=== PATIENT | female | born 1965 | race Caucasian/White ===

== ENCOUNTER 2016-11-06 09:45 | Emergency (ER) | payer MEDICARE, OTHER ==
[~2016-11-06] VITALS: Ht 172.7 cm; Wt 72.0 kg
[~2016-11-06 09:45] MED LIST: ADVA250A INH; DIPH1TAB36 PO; FISHCAP4 PO; GABA400C5 PO; LEVEMIR SQ; LISI2.5T3 PO; PROM25TA5 PO; REGL5TAB PO; SITA25 PO; ZOFR8TAB PO
[2016-11-06 09:47] VITALS: BP 98/70; PULSE 112; RESP 18; TEMP 98.9; O2SAT 98
[2016-11-06] MEDS ORDERED: SODIUM CHLOR 0.9% 1000 ML INJ 1,000 ML IV SCH (10:16)
--- NOTE | 2016-11-06 10:29 | PD ---
HPI . Right rib pain Chief Complaint: Fall Time Seen by Provider: 10:09 Travel History International Travel<30 days: No Contact w/Intl Traveler<30days: No Traveled to known affect area: No History of Present Illness HPI This is a patient with multiple medical issues who presents with the chief complaint of right rib pain following a fall. Her significant other reports that she has suffered several falls in the recent past. He states that her blood pressure drops and she falls. She denies fever. She denies vomiting or diarrhea. She denies urinary symptoms she is not currently having any difficulty breathing. PFSH Past Medical History Hx Anticoagulant Therapy: Yes (ASA) Arthritis: No Asthma: Yes Atrial Fibrillation: Yes Autoimmune Disease: No Blood Disorders: No Anxiety: Yes Depression: Yes Heart Rhythm Problems: Yes Cancer: Yes (throat ) Cardiovascular Problems: Yes High Cholesterol: No Chemotherapy: Yes Chest Pain: Yes Congestive Heart Failure: No COPD: No Cerebrovascular Accident: Yes Diabetes: Yes (TYPE 2) Patient Takes Glucophage: No Diminished Hearing: No Endocrine: Yes Gastrointestinal Disorders: Yes GERD: No Glaucoma: No Genitourinary: Yes (FREQUENT UTIs) Headaches: Yes Hepatitis: Yes (HEP C) Hiatal Hernia: No Heparin Induced Thrombocytopen: No Hypertension: Yes Immune Disorder: Yes (CANCER) Implanted Vascular Access Dvce: Yes (PORT R CHEST, PACEMAKER L CHEST) Kidney Stones: Yes Musculoskeletal: Yes (BACK PAIN) Neurologic: No Psychiatric: Yes Reproductive: Yes (GENITAL WARTS YEARS AGO) Respiratory: Yes (ASTHMA) Immunizations Current: Yes Migraines: Yes Myocardial Infarction: No Radiation Therapy: Yes (LAST DONE ON 10/21/16) Renal Failure: No Seizures: No Sickle Cell Disease: No Sleep Apnea: No Thyroid Disease: No Triglycerides - High: Yes Ulcer: No PNEUMOCCOCAL Vaccine (Year): 2 ?: Not Menopausal: Yes : 3 Para: 2 Miscarriage: 1 Past Surgical History Abdominal Surgery: Yes AICD: No Appendectomy: Yes Arteriovenous Shunt: No Body Medical Devices: PACEMAKER; LEG STENT; PORT PLACED Cardiac Surgery: Yes (L FEMORAL STENT, PACEMAKER) Section: Yes (x1) Cholecystectomy: Yes Ear Surgery: No Endocrine Surgery: No Eye Surgery: No Genitourinary Surgery: No Hysterectomy: No Insulin Pump: No Joint Replacement: No Neurologic Surgery: No Oral Surgery: Yes Pacemaker: Yes (ST JUDES) Thoracic Surgery: No Tonsillectomy: Yes Other Surgery: Yes (LEG STENTS, PORT PLACED- RIGHT 2016) Social History Alcohol Use: No Tobacco Use: No Substance Use: No Allergies-Medications (Allergen,Severity, Reaction): Coded Allergies: Compazine (Verified Allergy, Severe, 11/06/16) ANXIETY Ultram (Verified Allergy, Intermediate, Rash, 11/06/16) MRI PRECAUTION (Verified Adverse Reaction, Severe, PACEMAKER IS NOT A BIOTRONIK OR MEDTRONIC 06/15/16 KMD, 11/06/16) PACEMAKER IS NOT A BIOTRONIK OR MEDTRONIC CONDITIONAL PACEMAKER. CALLED BOTH COMPANIES TO CONFIRM. Percocet (Verified Adverse Reaction, Severe, Nausea/Vomiting, 11/06/16) *MDRO Multi-Drug Resistant Organism (Verified Adverse Reaction, Unknown, ESBL, MRSA, 11/06/16) E. coli ESBL (urine) - 2012, 2013, 2014, 04/2016 MRSA - 2003, 03/2015 (toe wound), 10/2015 (arm/back wound), (foot-08/17/16) Morphine (Verified Adverse Reaction, Unknown, Dizziness, 11/06/16) states doesn't want-does not like the way it makes me feel Reported Meds & Prescriptions Reported Meds & Active Scripts Active Reglan (Metoclopramide HCl) 5 Mg Tab 5 Mg PO TIDAC Lisinopril 2.5 Mg Tab 2.5 Mg PO DAILY Levemir Inj (Insulin Detemir) 1,000 unit/ 10 ML Vial 5 Units SQ Q12HR Phenergan (Promethazine HCl) 25 Mg Tab 25 Mg PO Q6H PRN Zofran (Ondansetron HCl) 8 Mg Tab 8 Mg PO Q8HR Reported Tylenol Pm Extra Strength (Diphenhydramine-Acetaminophen) 25-500 Mg Tab 1 Tab PO HS PRN Januvia (Sitagliptin Phosphate) 25 Mg Tab 25 Mg PO DAILY Advair Diskus Inh (Fluticasone-Salmeterol Inh) 250-50 Mcg/Blist Aer 1 Puff INH BID Rinse mouth after use. Fish Oil + D3 (Fish Oil-Cholecalciferol) 1,200-1,000 Mg-Unit Cap 1 Cap PO DAILY Gabapentin 400 Mg Cap 800 Mg PO BID Review of Systems Except as stated in HPI: all other systems reviewed are Neg General / Constitutional: No: Fever, Chills HENT: Positive: Lightheadedness Respiratory: No: Shortness of Breath Gastrointestinal: No: Nausea, Vomiting, Diarrhea, Abdominal Pain Genitourinary: No: Urgency, Frequency, Dysuria Musculoskeletal: Positive: Other (right chest wall pain) Neurologic: Positive: Weakness Physical Exam Narrative GENERAL: This is a chronically ill appearing woman who does not appear to be having any respiratory distress SKIN: Warm and dry. HEAD: Atraumatic. Normocephalic. EYES: Pupils equal and round. ENT: No nasal bleeding or discharge. Mucous membranes pink and moist. NECK: Trachea midline. Neck supple. CARDIOVASCULAR: Regular rate and rhythm. Heart sounds normal. RESPIRATORY: No accessory muscle use. Lungs clear with good air movement throughout. Right lower anterior chest wall tenderness. GASTROINTESTINAL: Abdomen soft, non-tender, nondistended. MUSCULOSKELETAL: No obvious deformities. No edema. NEUROLOGICAL: Awake and alert. No obvious cranial nerve deficits. Motor grossly within normal limits. Normal speech. PSYCHIATRIC: Appropriate mood and affect; insight and judgment normal. Data Data Last Documented VS Vital Signs Date Time Temp Pulse Resp B/P Pulse Ox O2 Delivery O2 Flow Rate FiO2 11/06/16 09:54 75 Nasal Cannula 11/06/16 09:47 98.9 18 98/70 98 Orders Basic Metabolic Panel (Bmp) (11/06/16 10:16) Complete Blood Count With Diff (11/06/16 10:16) Urinalysis - C+S If Indicated (11/06/16 10:16) Iv Access Insert/Monitor (11/06/16 10:16) Ondansetron Inj (Zofran Inj) (11/06/16 10:30) Sodium Chlor 0.9% 1000 Ml Inj (Ns 1000 M (11/06/16 10:16) Sodium Chloride 0.9% Flush (Ns Flush) (11/06/16 10:30) Electrocardiogram (11/06/16 10:16) Morphine Inj (Morphine Inj) (11/06/16 10:30) Ribs, Uni (W/Exp Cxr-Min 3vw) (11/06/16 10:16) Urine Culture (11/06/16 11:33) Labs Laboratory Tests Test 11/06/16 11/06/16 11:28 11:33 White Blood Count 4.8 TH/MM3 Red Blood Count 3.98 MIL/MM3 Hemoglobin 12.1 GM/DL Hematocrit 35.4 % Mean Corpuscular Volume 88.8 FL Mean Corpuscular Hemoglobin 30.3 PG Mean Corpuscular Hemoglobin 34.1 % Concent Red Cell Distribution Width 14.6 % Platelet Count 182 TH/MM3 Mean Platelet Volume 7.6 FL Neutrophils (%) (Auto) 78.2 % Lymphocytes (%) (Auto) 13.8 % Monocytes (%) (Auto) 7.3 % Eosinophils (%) (Auto) 0.4 % Basophils (%) (Auto) 0.3 % Neutrophils # (Auto) 3.8 TH/MM3 Lymphocytes # (Auto) 0.7 TH/MM3 Monocytes # (Auto) 0.4 TH/MM3 Eosinophils # (Auto) 0.0 TH/MM3 Basophils # (Auto) 0.0 TH/MM3 CBC Comment DIFF FINAL Differential Comment Sodium Level 136 MEQ/L Potassium Level 3.7 MEQ/L Chloride Level 96 MEQ/L Carbon Dioxide Level 24.9 MEQ/L Anion Gap 15 MEQ/L Blood Urea Nitrogen 16 MG/DL Creatinine 0.87 MG/DL Estimat Glomerular Filtration 69 ML/MIN Rate Random Glucose 184 MG/DL Calcium Level 9.6 MG/DL Urine Color YELLOW Urine Turbidity HAZY Urine pH 6.0 Urine Specific Hope 1.019 Urine Protein 30 mg/dL Urine Glucose (UA) NEG mg/dL Urine Ketones 80 mg/dL Urine Occult Blood NEG Urine Nitrite NEG Urine Bilirubin NEG Urine Urobilinogen 2.0 MG/DL Urine Leukocyte Esterase TRACE Urine RBC LESS THAN 1 /hpf Urine WBC 5 /hpf Urine Squamous Epithelial 13 /hpf Cells Urine Bacteria MANY /hpf Urine Hyaline Casts 2 /lpf Urine Mucus FEW /lpf Microscopic Urinalysis Comment CULTURE INDICATED MDM Medical Decision Making Medical Screen Exam Complete: Yes Emergency Medical Condition: Yes Differential Diagnosis Differential diagnosis of weakness includes but is not limited to infection, CVA , electrolyte disturbance, renal failure, hypoglycemia, UTI, ACS Differential diagnosis of her chest injury includes chest wall contusion, rib contusion, rib fracture, pneumothorax Narrative Course This is a patient with multiple medical problems including diabetes, hypertension, throat cancer, previous breast cancer, hepatitis C, gastroparesis who presents because of falls secondary to weakness and low blood pressure. She suffered and injury to her right chest wall today is the result of the fall. I will give her fluids while waiting the results of her rib films. I have ordered morphine and Zofran for her but her records indicate that she does not like the way morphine makes her feel so she may refuse this. Her CBC is normal. Rib films are negative as is her chest x-ray. U/A-->UTI. Diagnosis Primary Impression: Contusion of right chest wall Qualified Code: S20.211A - Contusion of right chest wall, initial encounter Additional Impressions: Frequent falls UTI (lower urinary tract infection) Scripts Cephalexin (Keflex)500 Mg [id number] Mg PO Q8H #30 CAP Ref 0 Prov:Keyana Siu MD 11/06/16 Disposition: DISCHARGE HOME Condition: Stable Keyana Siu MD Nov 06, 2016 10:29
[2016-11-06] MEDS: ONDANSETRON HCL 4 MG/2 ML VIAL IVP ONE ×2 (10:30→11:49)
[2016-11-06] MEDS ORDERED: SODIUM CHLORIDE 0.9% FLUSH 5 ML FLUSH IVF PRN (10:30)
[2016-11-06] MEDS: MORPHINE SULFATE 8 MG/ML INJ IV PUSH ONE ×2 (10:30→11:48)
--- NOTE | 2016-11-06 11:23 | RADRPT ---
EXAM DATE/TIME: 11/06/2016 10:46 [facility] COMPARISON: CHEST SINGLE AP, October 04, 2016, 2:12. INDICATIONS : Trauma MEDICAL HISTORY : Hypertension. Cerebrovascular disease. Hepatitis C. Diabetes, Carcinoma.oral cavity SURGICAL HISTORY : Pacemaker. Port placement ENCOUNTER: Initial ACUITY: 1 day PAIN SCORE: 10/10 LOCATION: Right chest FINDINGS: Multiple views of the right ribs were performed. There is no evidence of displaced fracture. No nahum tructive lesions or areas of periosteal thickening are seen. Expiratory view of the chest is negativ e for pneumothorax. The mediastinal structures are midline. Right port catheter tip overlies the SV C. Dual-lead pacer device in the left subclavian transvenous approach noted. Surgical clips are noted in the right upper quadrant. CONCLUSION: No acute disease. Bernardo Malone MD on November 06, 2016 at 11:21 Board Certified Radiologist. This report was verified electronically.
[2016-11-06 11:37] LABS: AUTOMATED NEUTROPHIL # 3.8 TH/MM3 (1.8-7.7); BASOPHIL % 0.3 % (0.0-2.0); EOSINOPHIL % 0.4 % (0.0-4.0); HEMATOCRIT 35.4 % (35.0-46.0); HEMO FLAGS DIFF FINAL; LYMPH % 13.8 % (9.0-44.0); LYMPHOCYTE # 0.7 TH/MM3 (1.0-4.8); MEAN CELL VOLUME 88.8 FL (80.0-100.0); MEAN CORPUSCULAR HEMOGLOBIN 30.3 PG (27.0-34.0); MEAN CORPUSCULAR HGB CONC 34.1 % (32.0-36.0); MONO % 7.3 % (0.0-8.0); NEUT % 78.2 % (16.0-70.0); PLATELET COUNT 182 TH/MM3 (150-450); RED BLOOD COUNT 3.98 MIL/MM3 (4.00-5.30); RED CELL DISTRIBUTION WIDTH 14.6 % (11.6-17.2); WHITE BLOOD COUNT 4.8 TH/MM3 (4.0-11.0)
[2016-11-06 11:55] LABS: BACTERIA, URINE MANY /hpf; BLOOD, URINE NEG (NEG); GLUCOSE,URINE NEG (NEG); HYALINE CAST, URINE 2 /lpf (RARE); KETONE, URINE 80 mg/dL (NEG); MUCUS URINE FEW /lpf (OCC); NITRITE,URINE NEG (NEG); SQUAMOUS EPITHELIAL CELL URINE 13 /hpf (0-5); URINE COLOR YELLOW (YELLW/STRAW)
[2016-11-06 11:56] LABS: COMMENT (UR) CULTURE INDICATED; CULTURE IF INDICATED CULTURE INDICATED
[2016-11-06 11:58] LABS: BICARBONATE 24.9 MEQ/L (21.0-32.0); POTASSIUM 3.7 MEQ/L (3.5-5.1)
[2016-11-06 12:00] VITALS: BP 122/65; PULSE 90; RESP 16; O2SAT 98
[2016-11-06] MEDS ORDERED: CEPH-460 PO (12:19)
--- NOTE | 2016-11-07 18:17 | EKG ---
Date Performed: 11/06/2016 Time Performed: 12:45:05 PTAGE: 51 years EKG: Sinus rhythm SEPTAL MYOCARDIAL INFARCTION Since previous tracing, no significant change noted ABNORMAL ECG PREVIOUS TRACING : 10/23/2016 16.28 DOCTOR: Gill Rivas Interpretating Date/Time 11/07/2016 18:17:11
[2016-11-29] MEDS ORDERED: SITA25 PO (14:33)
[2016-11-29] MEDS ORDERED: LEVEMIR SQ (14:33)
[2016-11-29] MEDS ORDERED: MIDO10TA PO (14:33)
[2016-11-29] MEDS ORDERED: GLUCLIQ15 PO (14:33)
[2017-01-05] MEDS ORDERED: SODI1TAB PO (14:28)
[2017-01-05] MEDS ORDERED: SITA1TAB2 PO (14:43)
[2017-01-05] MEDS ORDERED: LANCETS1 MI1 (14:45)
[2017-01-05] MEDS ORDERED: GLUCTES12 (14:45)
[2017-01-05] MEDS ORDERED: GLUCKIT15 (14:45)
[2017-01-05] MEDS ORDERED: INSU1MIS15 (14:45)
[2017-01-26] MEDS ORDERED: EXENINJ SQ (10:55)
[2017-02-08] MEDS ORDERED: GABA400C5 PO (11:21)
[2017-02-22] MEDS ORDERED: ATOR20TA15 PO (11:12)
[2017-02-22] MEDS ORDERED: EXENINJ SQ (11:14)
[2017-02-22] MEDS ORDERED: SODI1TAB PO (11:16)
[2017-02-22] MEDS ORDERED: MIDO5TAB PO (11:16)
[2017-02-22] MEDS ORDERED: ONDA4TAB6 PO (11:17)
[2017-03-02] MEDS ORDERED: LEVA750T PO (14:35)
[2017-03-02] MEDS ORDERED: BACT800T5 PO (14:36)
[2017-03-21] MEDS ORDERED: GABA400C5 PO (10:02)
[2017-03-21] MEDS ORDERED: LACTPOW68 PO (10:11)
[2017-04-04] MEDS ORDERED: CLIN1CAP6 PO (11:34)
[2017-04-04] MEDS ORDERED: LEVO500T8 PO (11:34)
[2017-04-11] MEDS ORDERED: GLIP1TAB49 PO (11:05)
[2017-05-01] MEDS ORDERED: MIDO5TAB PO (10:08)
[2017-05-01] MEDS ORDERED: GABA400C5 PO (10:08)
[2017-05-01] MEDS ORDERED: SODI1TAB PO (10:09)
== END 2016-11-06 13:24 | disposition home or self-care (01) ==
LOC: NEPE 09:45
DX: S20.211A Contusion of right front wall of thorax, initial encounter (principal); R29.6 Repeated falls; N39.0 Urinary tract infection, site not specified; B96.1 Klebsiella pneumoniae [K. pneumoniae] as the cause of diseases classified elsewhere; W19.XXXA Unspecified fall, initial encounter
CPT/HCPCS: 71101; 80048; 81001; 85025; 87077; 87086; 87186; 93005; 96360; 99284; J1642; J7030; J2270; J2405

== ENCOUNTER 2016-11-08 09:53 | Observation (INO) | payer MEDICARE, OTHER ==
[2016-11-08] VITALS (9 sets, daily range): BP systolic 59–132; BP diastolic 32–70; PULSE 80–110; RESP 16–20; TEMP 97.4–98.3; O2SAT 97–99
[~2016-11-08] VITALS: Ht 172.7 cm; Wt 65.0 kg
[~2016-11-08 09:53] MED LIST changes: +CEPH-460 PO
[2016-11-08] MEDS ORDERED: SODIUM CHLOR 0.9% 1000 ML INJ 1,000 ML IV ONE (10:40)
[2016-11-08] MEDS ORDERED: SODIUM CHLORIDE 0.9% FLUSH 5 ML FLUSH IVF PRN (10:45)
--- NOTE | 2016-11-08 10:46 | PD ---
HPI Chief Complaint: Abnormal Results Time Seen by Provider: 10:36 Travel History International Travel<30 days: No Contact w/Intl Traveler<30days: No Traveled to known affect area: No History of Present Illness HPI This is a 51-year-old female with history of oropharyngeal cancer, hepatitis C, who presents today with complaints of generalized weakness with near syncope and mechanical falls. The patient states she's been extremely weak and she's fond several times when she's gone to get up and was sitting position. She states that her significant other who is at the bedside has been able to catch her. She denies any traumatic injury at this time but was seen previously for rib pain after a fall. There are no other complaints time my examination. PFSH Past Medical History Hx Anticoagulant Therapy: Yes (ASA) Arthritis: No Asthma: Yes Atrial Fibrillation: Yes Autoimmune Disease: No Blood Disorders: No Anxiety: Yes Depression: Yes Heart Rhythm Problems: Yes Cancer: Yes (throat ) Cardiovascular Problems: Yes High Cholesterol: No Chemotherapy: Yes Chest Pain: Yes Congestive Heart Failure: No COPD: No Cerebrovascular Accident: Yes Diabetes: Yes (TYPE 2) Diminished Hearing: No Endocrine: Yes Gastrointestinal Disorders: Yes GERD: No Glaucoma: No Genitourinary: Yes (FREQUENT UTIs) Headaches: Yes Hepatitis: Yes (HEP C) Hiatal Hernia: No Heparin Induced Thrombocytopen: No Hypertension: Yes Immune Disorder: Yes (CANCER) Implanted Vascular Access Dvce: Yes (PORT R CHEST, PACEMAKER L CHEST) Kidney Stones: Yes Musculoskeletal: Yes (BACK PAIN) Neurologic: No Psychiatric: Yes Reproductive: Yes (GENITAL WARTS YEARS AGO) Respiratory: Yes (ASTHMA) Immunizations Current: Yes Migraines: Yes Myocardial Infarction: No Radiation Therapy: Yes (LAST DONE ON 10/21/16) Renal Failure: No Seizures: No Sickle Cell Disease: No Sleep Apnea: No Thyroid Disease: No Triglycerides - High: Yes Ulcer: No PNEUMOCCOCAL Vaccine (Year): 2 Menopausal: Yes : 3 Para: 2 Miscarriage: 1 Past Surgical History Abdominal Surgery: Yes AICD: No Appendectomy: Yes Arteriovenous Shunt: No Body Medical Devices: PACEMAKER; LEG STENT; PORT PLACED Cardiac Surgery: Yes (L FEMORAL STENT, PACEMAKER) Section: Yes (x1) Cholecystectomy: Yes Ear Surgery: No Endocrine Surgery: No Eye Surgery: No Genitourinary Surgery: No Hysterectomy: No Insulin Pump: No Joint Replacement: No Neurologic Surgery: No Oral Surgery: Yes Pacemaker: Yes (ST JUDES) Thoracic Surgery: No Tonsillectomy: Yes Other Surgery: Yes (LEG STENTS, PORT PLACED- RIGHT 2015) Social History Alcohol Use: No Tobacco Use: No Substance Use: No Allergies-Medications (Allergen,Severity, Reaction): Coded Allergies: Compazine (Verified Allergy, Severe, 11/06/16) ANXIETY Ultram (Verified Allergy, Intermediate, Rash, 11/06/16) MRI PRECAUTION (Verified Adverse Reaction, Severe, PACEMAKER IS NOT A BIOTRONIK OR MEDTRONIC 06/15/16 KMD, 11/06/16) PACEMAKER IS NOT A BIOTRONIK OR MEDTRONIC CONDITIONAL PACEMAKER. CALLED BOTH COMPANIES TO CONFIRM. Percocet (Verified Adverse Reaction, Severe, Nausea/Vomiting, 11/06/16) *MDRO Multi-Drug Resistant Organism (Verified Adverse Reaction, Unknown, ESBL, MRSA, 11/06/16) E. coli ESBL (urine) - 2012, 2013, 2014, 04/2016 MRSA - 2003, 03/2015 (toe wound), 10/2015 (arm/back wound), (foot-08/17/16) Morphine (Verified Adverse Reaction, Unknown, Dizziness, 11/06/16) states doesn't want-does not like the way it makes me feel Reported Meds & Prescriptions Reported Meds & Active Scripts Active Keflex (Cephalexin) 500 Mg Cap 500 Mg PO Q8H Reglan (Metoclopramide HCl) 5 Mg Tab 5 Mg PO TIDAC Lisinopril 2.5 Mg Tab 2.5 Mg PO DAILY Levemir Inj (Insulin Detemir) 1,000 unit/ 10 ML Vial 5 Units SQ Q12HR Phenergan (Promethazine HCl) 25 Mg Tab 25 Mg PO Q6H PRN Zofran (Ondansetron HCl) 8 Mg Tab 8 Mg PO Q8HR Reported Tylenol Pm Extra Strength (Diphenhydramine-Acetaminophen) 25-500 Mg Tab 1 Tab PO HS PRN Januvia (Sitagliptin Phosphate) 25 Mg Tab 25 Mg PO DAILY Advair Diskus Inh (Fluticasone-Salmeterol Inh) 250-50 Mcg/Blist Aer 1 Puff INH BID Rinse mouth after use. Fish Oil + D3 (Fish Oil-Cholecalciferol) 1,200-1,000 Mg-Unit Cap 1 Cap PO DAILY Gabapentin 400 Mg Cap 800 Mg PO BID Review of Systems Except as stated in HPI: all other systems reviewed are Neg General / Constitutional: No: Fever, Chills HENT: Positive: Lightheadedness, No: Headaches Cardiovascular: No: Chest Pain or Discomfort, Irregular Rhythm Respiratory: No: Cough, Shortness of Breath Gastrointestinal: No: Nausea, Abdominal Pain Genitourinary: No: Frequency, Dysuria Musculoskeletal: Positive: Weakness (generalized) Neurologic: Positive: Weakness (generalized), Other (near syncope when standing.) Physical Exam Narrative GENERAL: Frail appearing female in no acute respiratory distress. SKIN: Warm and dry. HEAD: Atraumatic. Normocephalic. EYES: No scleral icterus. No injection or drainage. ENT: No nasal bleeding or discharge. Dry mucous membranes. NECK: Trachea midline. Supple. CARDIOVASCULAR: Rate in the low 100s. No obvious murmurs gallops or rubs. RESPIRATORY: No accessory muscle use. Clear to auscultation. Breath sounds equal bilaterally. Decreased respiratory effort GASTROINTESTINAL: Abdomen soft, non-tender, nondistended. MUSCULOSKELETAL: No obvious deformities. No clubbing. No cyanosis. No edema. No obvious skin tenting NEUROLOGICAL: Awake and alert. No obvious cranial nerve deficits. Motor grossly within normal limits. Normal speech. She does appear to be weak. Data Data Last Documented VS Vital Signs Date Time Temp Pulse Resp B/P Pulse Ox O2 Delivery O2 Flow Rate FiO2 11/08/16 10:49 103 18 114/59 114 18 114/58 110 18 59/32 11/08/16 10:49 97 Room Air 11/08/16 10:36 97.8 Orders Complete Blood Count With Diff (11/08/16 10:40) Comprehensive Metabolic Panel (11/08/16 10:40) Urinalysis - C+S If Indicated (11/08/16 10:40) Ecg Monitoring (11/08/16 10:40) Iv Access Insert/Monitor (11/08/16 10:40) Oximetry (11/08/16 10:40) Sodium Chloride 0.9% Flush (Ns Flush) (11/08/16 10:45) Sodium Chlor 0.9% 1000 Ml Inj (Ns 1000 M (11/08/16 10:40) Orthostatic Vital Signs (11/08/16 10:40) Admit Order (Ed Use Only) (11/08/16 12:21) Labs Laboratory Tests Test 11/08/16 11:07 White Blood Count 3.8 TH/MM3 Red Blood Count 3.74 MIL/MM3 Hemoglobin 11.5 GM/DL Hematocrit 33.4 % Mean Corpuscular Volume 89.1 FL Mean Corpuscular Hemoglobin 30.6 PG Mean Corpuscular Hemoglobin 34.3 % Concent Red Cell Distribution Width 15.1 % Platelet Count 167 TH/MM3 Mean Platelet Volume 7.8 FL Neutrophils (%) (Auto) 76.9 % Lymphocytes (%) (Auto) 14.6 % Monocytes (%) (Auto) 7.5 % Eosinophils (%) (Auto) 0.5 % Basophils (%) (Auto) 0.5 % Neutrophils # (Auto) 2.9 TH/MM3 Lymphocytes # (Auto) 0.6 TH/MM3 Monocytes # (Auto) 0.3 TH/MM3 Eosinophils # (Auto) 0.0 TH/MM3 Basophils # (Auto) 0.0 TH/MM3 CBC Comment DIFF FINAL Differential Comment Sodium Level 140 MEQ/L Potassium Level 3.8 MEQ/L Chloride Level 103 MEQ/L Carbon Dioxide Level 21.8 MEQ/L Anion Gap 15 MEQ/L Blood Urea Nitrogen 17 MG/DL Creatinine 0.92 MG/DL Estimat Glomerular Filtration 65 ML/MIN Rate Random Glucose 150 MG/DL Calcium Level 9.9 MG/DL Total Bilirubin 0.6 MG/DL Aspartate Amino Transf 9 U/L (AST/SGOT) Alanine Aminotransferase 20 U/L (ALT/SGPT) Alkaline Phosphatase 76 U/L Total Protein 7.5 GM/DL Albumin 3.4 GM/DL [facility] Medical Decision Making Medical Screen Exam Complete: Yes Emergency Medical Condition: Yes Differential Diagnosis Dehydration versus anemia versus metabolic abnormalities. Narrative Course 51-year-old female with unfortunate history of oropharyngeal cancer, presents here with near-syncopal episodes and weakness. The patient has significant orthostatic hypotension noted on testing. Laboratory tests do not show the severe dehydration however patient does have significant dry mucous members on exam. I discussed the case with the family practice teaching service residents and they're amenable to put the patient on her service. She is receiving I V fluids here in the emergency department. She'll be placed on a 23 hour observation status for intravenous hydration. Diagnosis Primary Impression: Severe dehydration Additional Impressions: Near syncope Orthostatic hypotension Squamous cell carcinoma of oropharynx Weakness Frequent falls Fernando Donato MD Nov 08, 2016 10:46
[2016-11-08 11:21] LABS: AUTOMATED NEUTROPHIL # 2.9 TH/MM3 (1.8-7.7); BASOPHIL % 0.5 % (0.0-2.0); EOSINOPHIL % 0.5 % (0.0-4.0); HEMATOCRIT 33.4 % (35.0-46.0); HEMO FLAGS DIFF FINAL; LYMPH % 14.6 % (9.0-44.0); LYMPHOCYTE # 0.6 TH/MM3 (1.0-4.8); MEAN CELL VOLUME 89.1 FL (80.0-100.0); MEAN CORPUSCULAR HEMOGLOBIN 30.6 PG (27.0-34.0); MEAN CORPUSCULAR HGB CONC 34.3 % (32.0-36.0); MONO % 7.5 % (0.0-8.0); NEUT % 76.9 % (16.0-70.0); PLATELET COUNT 167 TH/MM3 (150-450); RED BLOOD COUNT 3.74 MIL/MM3 (4.00-5.30); RED CELL DISTRIBUTION WIDTH 15.1 % (11.6-17.2); WHITE BLOOD COUNT 3.8 TH/MM3 (4.0-11.0)
[2016-11-08 11:37] LABS: ALT (GPT) 20 U/L (10-53); ANION GAP 15 MEQ/L (5-15); AST (GOT) 9 U/L (15-37); BICARBONATE 21.8 MEQ/L (21.0-32.0); BLOOD UREA NITROGEN 17 MG/DL (7-18); CHLORIDE 103 MEQ/L (98-107); GLOMERULAR FILTRATION RATE 65 ML/MIN (>89); POTASSIUM 3.8 MEQ/L (3.5-5.1); SODIUM (NA) 140 MEQ/L (136-145)
[2016-11-08 11:39] LABS: ALKALINE PHOSPHATASE 76 U/L (45-117); TOTAL BILIRUBIN ADULT 0.6 MG/DL (0.2-1.0)
--- NOTE | 2016-11-08 12:27 | HHI.HP ---
[facility] Service Family Medicine Primary Care Physician Janice Barker MD Admission Diagnosis Diagnoses: International Travel<30 Days: No Contact w/Intl Traveler<30days: No Known Affected Area: No History of Present Illness 51-year-old female with history of oropharyngeal cancer, hepatitis C, who presents to ED with complaints of generalized weakness with near syncope and falls. The patient states she has been extremely weak and has fallen several times when getting up from a sitting position. She states that her significant other who is at the bedside has been able to catch her and that she has not had any injuries from the falls. She admits that her fluid intake is poor at home and she only takes sips of water throughout the day. She denies chest pain, shortness of breath, abdominal pain, headache, or visual changes. She continues to have intermittent nausea; has Phenergan and Zofran at home which help. No other complaints or concerns. 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 History (1 miscarriage) x 1, x 1 Age at menstruation: 13 Surgical History Cholecystectomy Appendectomy Tonsillectomy Right 5th digit amputation Pacemaker placement Left femoral stent Family History Mother: but unsure of medical history Father: , heart disease Sister: CAD Two healthy children (son and daughter) History of cancers in the family but unsure of who or what kind Social History Lives with boyfriend and roommate Unemployed, disabled High school education EtOH: denies Tobacco: quit in 2003, smoked about 1/2 PPD x 14 years prior to quitting Illicit drugs: denies Health Maintenance Flu vaccine: October 2015 Pneumonia vaccine: unsure TDAP: cannot recall last Eye exam: 2014 Mammogram: August 2011 Pap: cannot recall Specialists Podiatry - Dr. Gutierrez Operations And Maintenance Specialist - Dr. Cohn Oncologist - Dr. Umanzor Allergies: Coded Allergies: Compazine (Verified Allergy, Severe, 11/06/16) ANXIETY Ultram (Verified Allergy, Intermediate, Rash, 11/06/16) MRI PRECAUTION (Verified Adverse Reaction, Severe, PACEMAKER IS NOT A BIOTRONIK OR MEDTRONIC 06/15/16 KMD, 11/06/16) PACEMAKER IS NOT A BIOTRONIK OR MEDTRONIC CONDITIONAL PACEMAKER. CALLED BOTH COMPANIES TO CONFIRM. Percocet (Verified Adverse Reaction, Severe, Nausea/Vomiting, 11/06/16) *MDRO Multi-Drug Resistant Organism (Verified Adverse Reaction, Unknown, ESBL, MRSA, 11/06/16) E. coli ESBL (urine) - 2012, 2013, 2014, 04/2016 MRSA - 2003, 03/2015 (toe wound), 10/2015 (arm/back wound), (foot-08/17/16) Morphine (Verified Adverse Reaction, Unknown, Dizziness, 11/06/16) states doesn't want-does not like the way it makes me feel Physical Exam Vital Signs Vital Signs Date Time Temp Pulse Resp B/P Pulse Ox O2 Delivery O2 Flow Rate FiO2 11/08/16 10:49 103 18 114/59 114 18 114/58 110 18 59/32 11/08/16 10:49 18 97 Room Air 11/08/16 10:36 97.8 106 18 132/70 99 Room Air 11/08/16 10:36 103 18 100 Room Air 11/08/16 10:25 98.1 110 16 88/50 98 Physical Exam GENERAL: Frail appearing female in no acute respiratory distress. SKIN: Warm and dry. HEAD: Atraumatic. Normocephalic. EYES: No scleral icterus. No injection or drainage. ENT: No nasal bleeding or discharge. Mucous membranes mildly dry. NECK: Trachea midline. Supple. CARDIOVASCULAR: RRR. No murmurs gallops or rubs. RESPIRATORY: No accessory muscle use. Clear to auscultation. Breath sounds equal bilaterally. Decreased respiratory effort. GASTROINTESTINAL: Abdomen soft, non-tender, nondistended. MUSCULOSKELETAL: No obvious deformities. No clubbing. No cyanosis. No edema. No obvious skin tenting NEUROLOGICAL: Awake and alert. No obvious cranial nerve deficits. Motor grossly within normal limits. Normal speech. Appears to be weak. Laboratory Laboratory Tests Test 11/08/16 11:07 White Blood Count 3.8 Red Blood Count 3.74 Hemoglobin 11.5 Hematocrit 33.4 Mean Corpuscular Volume 89.1 Mean Corpuscular Hemoglobin 30.6 Mean Corpuscular Hemoglobin 34.3 Concent Red Cell Distribution Width 15.1 Platelet Count 167 Mean Platelet Volume 7.8 Neutrophils (%) (Auto) 76.9 Lymphocytes (%) (Auto) 14.6 Monocytes (%) (Auto) 7.5 Eosinophils (%) (Auto) 0.5 Basophils (%) (Auto) 0.5 Neutrophils # (Auto) 2.9 Lymphocytes # (Auto) 0.6 Monocytes # (Auto) 0.3 Eosinophils # (Auto) 0.0 Basophils # (Auto) 0.0 CBC Comment DIFF FINAL Differential Comment Sodium Level 140 Potassium Level 3.8 Chloride Level 103 Carbon Dioxide Level 21.8 Anion Gap 15 Blood Urea Nitrogen 17 Creatinine 0.92 Estimat Glomerular Filtration 65 Rate Random Glucose 150 Calcium Level 9.9 Total Bilirubin 0.6 Aspartate Amino Transf 9 (AST/SGOT) Alanine Aminotransferase 20 (ALT/SGPT) Alkaline Phosphatase 76 Total Protein 7.5 Albumin 3.4 Result Diagram: 11/08/16 1107 11/08/16 1107 Assessment and Plan Assessment and Plan 51-year-old female with a PMH significant for squamous cell carcinoma of oropharynx, DM, recurrent UTIs admitted for dehydration and orthostatic hypotension with weakness and recurrent falls. Code Status Full Discussed Condition With [facility] Dr. Herrera Problem List: (1) Dehydration Status: Acute Plan: Patient admits to poor oral intake at home. -Received normal saline fluid bolus in ED -Continue normal saline at 1.5 maintenance fluids, 150 cc an hour until tomorrow , then decrease to maintenance 100 cc/hour -Counseled patient on the importance of good hydration at home to prevent dehydration (2) Orthostatic hypotension Status: Acute Plan: Blood pressure dropped from 114/59 lying down to 59/32 when standing up -Recheck orthostatic blood pressures tomorrow after fluid hydration (3) Frequent falls Status: Chronic Plan: See plan as above -Physical therapy consulted Case management consulted to assist with safe discharge planning (4) DM (diabetes mellitus), type 2, uncontrolled w/neurologic complication Status: Chronic Plan: Glucose 150 in ED Insulin-dependent. -Levemir 5 mg daily at bedtime, can increase to twice a day -Low-dose insulin correctional scale -On gabapentin 800 mg twice a day (5) UTI (lower urinary tract infection) Status: Resolved Plan: History of recurrent UTIs and urine culture in April 2016 grew ESBL UTI sensitive only to carbapenems, was also sensitive to Macrobid with ROSINA <32. On most recent admission, patient was placed on Unasyn with a severe neutropenia resulting that required Neupogen. The urine culture on that admission grew 50-100,000 mixed carmen, probable contaminant. -Urine culture 11/08/16 pending -Rocephin 1 g IV daily for now, consider switching based on culture results (6) Squamous cell carcinoma of oropharynx Status: Chronic Plan: Followed by Dr. Umanzor. On radiation treatment. Last chemotherapy was in September. No further plan for chemotherapy (7) Gastroparesis due to DM Status: Acute Plan: Gastric emptying study previous admission showed gastroparesis. EGD showed mild gastritis, esophagitis and duodenal erosions. Continue PPI and observation. Biopsy results show mild chronic gastritis, negative for Helicobacter pylori, negative for metaplasia or dysplasia. Plan: -Protonix 40 mg daily -Monitor I's and O's -Consider erythromycin as outpatient. Medications: Zofran 4 mg IV when necessary Reglan 5mg IV when necessary (8) Depression Status: Acute Plan: Concern for underlying depression. -We'll start Celexa low-dose 20 mg daily (9) Nutrition, metabolism, and development symptoms Status: Acute Plan: Diet: Diabetic diet Electrolytes: WNL, continue to monitor DVT prophylaxis: Lovenox 40 SQ q24hrs GI prophylaxis: Protonix 40 mg daily Hafsa Faulkner MD Nov 08, 2016 12:27
[2016-11-08 12:32] LABS: BACTERIA, URINE MOD /hpf; BLOOD, URINE NEG (NEG); GLUCOSE,URINE NEG (NEG); HYALINE CAST, URINE 5 /lpf (RARE); KETONE, URINE 150 mg/dL (NEG); MUCUS URINE FEW /lpf (OCC); SQUAMOUS EPITHELIAL CELL URINE 6 /hpf (0-5); URINE COLOR YELLOW (YELLW/STRAW)
[2016-11-08 12:37] LABS: COMMENT (UR) CULTURE INDICATED; CULTURE IF INDICATED CULTURE INDICATED; NITRITE,URINE POS (NEG)
[2016-11-08] MEDS ORDERED: METOCLOPRAMIDE HCL 10 MG/2 ML VIAL IV PUSH PRN (12:45)
[2016-11-08] MEDS ORDERED: NALOXONE HCL 0.4 MG/ML AMP IV PRN (12:45)
[2016-11-08] MEDS ORDERED: MAGNESIUM HYDROXIDE SUSP 30 ML CUP PO PRN (12:45)
[2016-11-08] MEDS ORDERED: DOCUSATE SODIUM 50 MG/SENNA 8.6 MG TAB PO PRN (12:45)
[2016-11-08] MEDS ORDERED: ONDANSETRON HCL 4 MG/2 ML VIAL IVP PRN (12:45)
[2016-11-08] MEDS ORDERED: SODIUM CHLORIDE 0.9% FLUSH 5 ML FLUSH FLUSH PRN (12:45)
[2016-11-08] MEDS: SODIUM CHLOR 0.9% 1000 ML INJ 1,000 ML IV SCH ×2 (12:51→17:16)
[2016-11-08] MEDS: ENOXAPARIN SODIUM 40 MG/0.4 ML SYRINGE SQ SCH (12:51)
[2016-11-08] MEDS ORDERED: GLUCAGON 1 MG/ML VIAL OTHER PRN (13:00)
[2016-11-08] MEDS ORDERED: DEXTROSE 50% IN WATER 50 ML VIAL(D50) IV PUSH PRN (13:00)
[2016-11-08] MEDS ORDERED: AMPICILLIN-SULBACTAM INJ 1,500 MG VIAL IM SCH (14:00)
[2016-11-08] MEDS ORDERED: hydrALAZINE HCL 10 MG TAB PO PRN (14:00)
[2016-11-08] MEDS: cefTRIAXone INJ 1,000 MG in SODIUM CHLORIDE 0.9% INJ 100 ML IV SCH (14:08)
[2016-11-08] MEDS ORDERED: CITALOPRAM HYDROBROMIDE 20 MG TAB PO SCH (15:00)
[2016-11-08 16:29] LABS: MAGNESIUM 1.2 MG/DL (1.5-2.5)
[2016-11-08] MEDS: INSULIN ASPART SUPPLEMENTAL SCALE SQ SCH ×2 (17:22→21:00)
[2016-11-08] MEDS: GABAPENTIN 400 MG CAP PO SCH (20:35)
[2016-11-08] MEDS: INSULIN DETEMIR 100 UNITS/ML VIAL SQ SCH (20:35)
[2016-11-08] MEDS: SODIUM CHLORIDE 0.9% FLUSH 5 ML FLUSH FLUSH SCH (21:00)
[2016-11-08] MEDS: MAGNESIUM SULFATE 1 GM PREMIX 100 ML IV SCH (22:50)
[2016-11-09] VITALS (9 sets, daily range): BP systolic 76–177; BP diastolic 45–93; PULSE 80–94; RESP 16–20; TEMP 96.7–98.3; O2SAT 95–100
[2016-11-09] MEDS: MAGNESIUM SULFATE 1 GM PREMIX 100 ML IV SCH (00:20)
[2016-11-09] MEDS: SODIUM CHLOR 0.9% 1000 ML INJ 1,000 ML IV SCH ×4 (02:01→16:26)
[2016-11-09 06:57] LABS: AUTOMATED NEUTROPHIL # 1.3 TH/MM3 (1.8-7.7); BASOPHIL % 0.7 % (0.0-2.0); EOSINOPHIL % 1.3 % (0.0-4.0); HEMATOCRIT 27.4 % (35.0-46.0); HEMO FLAGS DIFF FINAL; LYMPH % 21.5 % (9.0-44.0); LYMPHOCYTE # 0.4 TH/MM3 (1.0-4.8); MEAN CELL VOLUME 88.1 FL (80.0-100.0); MEAN CORPUSCULAR HGB CONC 35.2 % (32.0-36.0); MONO % 10.8 % (0.0-8.0); NEUT % 65.7 % (16.0-70.0); PLATELET COUNT 143 TH/MM3 (150-450); RED BLOOD COUNT 3.11 MIL/MM3 (4.00-5.30); RED CELL DISTRIBUTION WIDTH 14.5 % (11.6-17.2)
[2016-11-09] MEDS: INSULIN ASPART SUPPLEMENTAL SCALE SQ SCH ×4 (07:00→21:00)
[2016-11-09 07:21] LABS: ALKALINE PHOSPHATASE 63 U/L (45-117); ALT (GPT) 14 U/L (10-53); ANION GAP 11 MEQ/L (5-15); AST (GOT) 7 U/L (15-37); BICARBONATE 23.5 MEQ/L (21.0-32.0); BLOOD UREA NITROGEN 9 MG/DL (7-18); CHLORIDE 106 MEQ/L (98-107); GLOMERULAR FILTRATION RATE 90 ML/MIN (>89); MAGNESIUM 1.6 MG/DL (1.5-2.5); POTASSIUM 3.4 MEQ/L (3.5-5.1); SODIUM (NA) 140 MEQ/L (136-145); TOTAL BILIRUBIN ADULT 0.4 MG/DL (0.2-1.0)
[2016-11-09] MEDS: PANTOPRAZOLE SOD 40 MG DELAYED RELEASE TAB PO SCH (08:40)
[2016-11-09] MEDS: GABAPENTIN 400 MG CAP PO SCH ×2 (08:40→21:07)
[2016-11-09] MEDS: SODIUM CHLORIDE 0.9% FLUSH 5 ML FLUSH FLUSH SCH ×2 (08:41→21:00)
--- NOTE | 2016-11-09 08:49 | HHI.HP ---
[facility] Service Family Medicine Primary Care Physician Janice Barekr MD Admission Diagnosis Diagnoses: (1) Orthostatic hypotension Diagnosis: Principal (2) Dehydration Diagnosis: Principal (3) UTI (lower urinary tract infection) Diagnosis: Principal (4) Frequent falls Diagnosis: Principal (5) DM (diabetes mellitus), type 2, uncontrolled w/neurologic complication Diagnosis: Principal (6) Squamous cell carcinoma of oropharynx Diagnosis: Principal (7) Gastroparesis due to DM Diagnosis: Principal (8) Depression Diagnosis: Principal (9) Nutrition, metabolism, and development symptoms Diagnosis: Principal International Travel<30 Days: No Contact w/Intl Traveler<30days: No Known Affected Area: No History of Present Illness Ms Arechiga is a 51-year-old female with a history of oropharyngeal cancer, hepatitis C, who presented to ED with complaints of generalized weakness with near syncope and falls. The patient states she has been extremely weak and has fallen several times when getting up from a sitting position over the past 4 to 5 days at home. She states that her significant other who is at the bedside has been able to catch her and that she has not had any injuries from the falls except for some bruising to her right ribs. She admits that her fluid intake is poor at home and she only takes sips of water throughout the day. She has problems with tasting any of her food as she had chemo and is getting radiation to her throat. Her appetite and eating has been very poor. She denies chest pain , shortness of breath, abdominal pain, headache, or visual changes. She continues to have intermittent nausea; has Phenergan and Zofran at home which help. No other complaints or concerns. 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 Her BPs have always been high in the past prior to her recent chemo and radiation. She has had difficulty in staying hydrated with chemo and presented multiple times with vomiting in the recent past and been off her antihypertensives for months. She has not had chemo since September and is not vomiting now. She has remained orthostatic this am despite 1 liter bolus and fluids all night. Her systolic BPs dropped from 143 to 93 from sitting to standing. She is symptomatic as well today. Have ordered an am cortisol but also concerned about possible autonomic dysfunction from her DM. Review of Systems Constitutional: COMPLAINS OF: Change in appetite, DENIES: Fever, Weight gain Endocrine: COMPLAINS OF: Polyuria, DENIES: Polydipsia Respiratory: DENIES: Shortness of breath Cardiovascular: DENIES: Chest pain Gastrointestinal: COMPLAINS OF: Nausea, Anorexia, DENIES: Abdominal pain Genitourinary: COMPLAINS OF: Urinary frequency Psychiatric: COMPLAINS OF: Mood changes Other Constitutional: DENIES: Fever, Chills Respiratory: DENIES: Cough, Shortness of breath Cardiovascular: COMPLAINS OF: Orthopnea, DENIES: Chest pain, Palpitations, Lower Extremity Edema Gastrointestinal: DENIES: Abdominal pain, Nausea, Vomiting Musculoskeletal: DENIES: Joint pain Integumentary: DENIES: Rash Neurologic: COMPLAINS OF: Poor Balance, DENIES: Headache Psychiatric: DENIES: Confusion Past Family Social History Past Medical History Past Medical History Insulin-dependent DM diagnosed in 2006 (cannot tolerate metformin 2/2 diarrhea) 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 friends are Shorty and Yovany Unemployed, disabled High school education EtOH: denies Tobacco: quit in 2003, smoked about 1/2 PPD x 14 years prior to quitting Illicit drugs: denies Health Maintenance Flu vaccine: October 2015 Pneumonia vaccine: unsure TDAP: cannot recall last Eye exam: 2014 Mammogram: August 2011 Pap: cannot recall Specialists Podiatry - Dr. 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 Umanzor Allergies: Coded Allergies: Compazine (Verified Allergy, Severe, 11/06/16) ANXIETY Ultram (Verified Allergy, Intermediate, Rash, 11/06/16) MRI PRECAUTION (Verified Adverse Reaction, Severe, PACEMAKER IS NOT A BIOTRONIK OR MEDTRONIC 06/15/16 KMD, 11/06/16) PACEMAKER IS NOT A BIOTRONIK OR MEDTRONIC CONDITIONAL PACEMAKER. CALLED BOTH COMPANIES TO CONFIRM. Percocet (Verified Adverse Reaction, Severe, Nausea/Vomiting, 11/06/16) *MDRO Multi-Drug Resistant Organism (Verified Adverse Reaction, Unknown, ESBL, MRSA, 11/06/16) E. coli ESBL (urine) - 2012, 2013, 2014, 04/2016 MRSA - 2003, 03/2015 (toe wound), 10/2015 (arm/back wound), (foot-08/17/16) Morphine (Verified Adverse Reaction, Unknown, Dizziness, 11/06/16) states doesn't want-does not like the way it makes me feel Active Ordered Medications zofran and phenergan only no celexa no antihypertensives Physical Exam Vital Signs Vital Signs Date Time Temp Pulse Resp B/P Pulse Ox O2 Delivery O2 Flow Rate FiO2 11/09/16 08:46 98 11/09/16 08:00 97.4 84 16 121/70 100 11/09/16 03:53 97.6 80 20 119/64 97 76/45 102/57 11/08/16 23:46 97.4 80 20 114/59 97 11/08/16 21:55 82 11/08/16 20:24 97.4 87 20 128/65 97 11/08/16 16:01 98.1 94 18 128/58 99 11/08/16 12:57 98.3 96 18 112/59 99 Room Air 11/08/16 12:54 98 11/08/16 10:49 103 18 114/59 114 18 114/58 110 18 59/32 11/08/16 10:49 18 97 Room Air 11/08/16 10:36 97.8 106 18 132/70 99 Room Air 11/08/16 10:36 103 18 100 Room Air 11/08/16 10:25 98.1 110 16 88/50 98 Physical Exam GENERAL: Frail appearing female in no acute respiratory distress. Hair growing back. Dizzy when standing up and orthostatic this am despite fluids. SKIN: Warm and dry. HEAD: Atraumatic. Normocephalic. EYES: No scleral icterus. No injection or drainage. ENT: No nasal bleeding or discharge. Mucous membranes not dry this am. NECK: Trachea midline. Supple. CARDIOVASCULAR: RRR. No murmurs gallops or rubs. RESPIRATORY: No accessory muscle use. Clear to auscultation. Breath sounds equal bilaterally. Decreased respiratory effort. GASTROINTESTINAL: Abdomen soft, non-tender, nondistended. MUSCULOSKELETAL: No obvious deformities. No clubbing. No cyanosis. No edema. No obvious skin tenting NEUROLOGICAL: Awake and alert. No obvious cranial nerve deficits. Motor grossly within normal limits. Normal speech. Appears to be weak. Laboratory Laboratory Tests Test 11/08/16 11/08/16 11/08/16 11/09/16 11:07 11:36 15:48 06:29 White Blood Count 3.8 2.0 Red Blood Count 3.74 3.11 Hemoglobin 11.5 9.6 Hematocrit 33.4 27.4 Mean Corpuscular Volume 89.1 88.1 Mean Corpuscular Hemoglobin 30.6 31.0 Mean Corpuscular Hemoglobin 34.3 35.2 Concent Red Cell Distribution Width 15.1 14.5 Platelet Count 167 143 Mean Platelet Volume 7.8 7.8 Neutrophils (%) (Auto) 76.9 65.7 Lymphocytes (%) (Auto) 14.6 21.5 Monocytes (%) (Auto) 7.5 10.8 Eosinophils (%) (Auto) 0.5 1.3 Basophils (%) (Auto) 0.5 0.7 Neutrophils # (Auto) 2.9 1.3 Lymphocytes # (Auto) 0.6 0.4 Monocytes # (Auto) 0.3 0.2 Eosinophils # (Auto) 0.0 0.0 Basophils # (Auto) 0.0 0.0 CBC Comment DIFF FINAL DIFF FINAL Differential Comment Sodium Level 140 140 Potassium Level 3.8 3.4 Chloride Level 103 106 Carbon Dioxide Level 21.8 23.5 Anion Gap 15 11 Blood Urea Nitrogen 17 9 Creatinine 0.92 0.69 Estimat Glomerular Filtration 65 90 Rate Random Glucose 150 109 Calcium Level 9.9 8.6 Total Bilirubin 0.6 0.4 Aspartate Amino Transf 9 7 (AST/SGOT) Alanine Aminotransferase 20 14 (ALT/SGPT) Alkaline Phosphatase 76 63 Total Protein 7.5 6.3 Albumin 3.4 2.8 Urine Color YELLOW Urine Turbidity HAZY Urine pH 6.0 Urine Specific [place] 1.021 Urine Protein 30 Urine Glucose (UA) NEG Urine Ketones 150 Urine Occult Blood NEG Urine Nitrite POS Urine Bilirubin NEG Urine Urobilinogen 2.0 Urine Leukocyte Esterase TRACE Urine RBC 1 Urine WBC 9 Urine Squamous Epithelial 6 Cells Urine Bacteria MOD Urine Hyaline Casts 5 Urine Mucus FEW Microscopic Urinalysis Comment CULTURE INDICATED Phosphorus Level 2.5 2.2 Magnesium Level 1.2 1.6 Date/Time Procedure Status Source Growth 11/08/16 11:36 Urine Culture Received Urine Random Urine Pending Result Diagram: 11/09/1629 11/09/1629 Assessment and Plan Assessment and Plan 51-year-old female with a PMH significant for squamous cell carcinoma of oropharynx, DM, recurrent UTIs admitted for dehydration and orthostatic hypotension with weakness and recurrent falls. Problem List: (1) Orthostatic hypotension Status: Acute Plan: Blood pressure dropped from 114/59 lying down to 59/32 when standing up -Rechecked orthostatic blood pressures today after fluid hydration and she is still orthostatic despite being off all meds that are notorious for causing this -consider midodrine if not improved by tomorrow. she is still lightheaded when she gets up. midodrine has many potential side effects so appreciate help of cardiology if she does not improve (2) Dehydration Status: Acute Plan: Patient admits to poor oral intake at home. -Received normal saline fluid bolus in ED -Continue normal saline at 1.5 maintenance fluids, 150 cc an hour until tomorrow , then decrease to maintenance 100 cc/hour -Counseled patient on the importance of good hydration at home to prevent dehydration -she is still orthostatic despite adequate hydration. will ask Cardiology if she needs meds to increase BP. Concerned as she has always been hypertensive in past. Could be related to DM and autonomic dysfunction vs some adrenal insufficiency with cancer vs other cause (3) Frequent falls Status: Chronic Plan: See plan as above -Physical therapy consulted Case management consulted to assist with safe discharge planning (4) DM (diabetes mellitus), type 2, uncontrolled w/neurologic complication Status: Chronic Plan: Glucose 150 in ED Insulin-dependent. -Levemir 5 mg daily at bedtime, can increase to twice a day -Low-dose insulin correctional scale -On gabapentin 800 mg twice a day (5) UTI (lower urinary tract infection) Status: Resolved Plan: History of recurrent UTIs and urine culture in April 2016 grew ESBL UTI sensitive only to carbapenems, was also sensitive to Macrobid with ROSINA <32. On most recent admission, patient was placed on Unasyn with a severe neutropenia resulting that required Neupogen. The urine culture on that admission grew 50-100,000 mixed carmen, probable contaminant. -Urine culture 11/08/16 pending -Rocephin 1 g IV daily for now, consider switching based on culture results (6) Squamous cell carcinoma of oropharynx Status: Chronic Plan: Followed by Dr. Umanzor. On radiation treatment. Last chemotherapy was in September. No further plan for chemotherapy. Still getting radiation. (7) Gastroparesis due to DM Status: Acute Plan: Gastric emptying study previous admission showed gastroparesis. EGD showed mild gastritis, esophagitis and duodenal erosions. Continue PPI and observation. Biopsy results show mild chronic gastritis, negative for Helicobacter pylori, negative for metaplasia or dysplasia. Plan: -Protonix 40 mg daily -Monitor I's and O's -Consider erythromycin as outpatient. Medications: Zofran 4 mg IV when necessary Reglan 5mg IV when necessary, was not effective on recent test so can consider erythromycin if not effective. (8) Depression Status: Acute Plan: Concern for underlying depression. -pt refuses Celexa . can consider starting if pt agrees to this (9) Nutrition, metabolism, and development symptoms Status: Acute Plan: Diet: Diabetic diet, she is not eating well as she has no appetite. 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
[2016-11-09] MEDS ORDERED: POTASSIUM CHLORIDE 20 MEQ CONTROLLED RELEASE TAB PO ONE (09:00)
[2016-11-09] MEDS ORDERED: INFLUENZA VIRUS VACCINE (QUADRIVALENT) 0.5 ML SYR IM ONE (10:00)
[2016-11-09 10:02] LABS: AMPHETAMINE, URINE NEG (NEG); BARBITURATES, URINE NEG (NEG); COCAINE, URINE NEG (NEG)
[2016-11-09] MEDS ORDERED: POTASSIUM PHOSPHATE MONOBASIC 500 MG TAB PO ONE (11:30)
--- NOTE | 2016-11-09 11:53 | EKG ---
Date Performed: 11/08/2016 Time Performed: 14:03:57 PTAGE: 51 years EKG: Sinus rhythm INFERIOR MYOCARDIAL INFARCTION ABNORMAL ECG PREVIOUS TRACING : 11/06/2016 12.45 DOCTOR: Piotr Hunter Interpretating Date/Time 11/09/2016 11:52:55
[2016-11-09] MEDS: cefTRIAXone INJ 1,000 MG in SODIUM CHLORIDE 0.9% INJ 100 ML IV SCH (13:44)
[2016-11-09] MEDS: ENOXAPARIN SODIUM 40 MG/0.4 ML SYRINGE SQ SCH (15:04)
[2016-11-09] MEDS: INSULIN DETEMIR 100 UNITS/ML VIAL SQ SCH (21:07)
[2016-11-10] VITALS (8 sets, daily range): BP systolic 92–159; BP diastolic 56–82; PULSE 84–97; RESP 16–20; TEMP 97.4–98.9; O2SAT 96–99
[2016-11-10] MEDS: SODIUM CHLOR 0.9% 1000 ML INJ 1,000 ML IV SCH ×2 (03:19→17:51)
[2016-11-10] MEDS: INSULIN ASPART SUPPLEMENTAL SCALE SQ SCH ×4 (07:00→22:14)
[2016-11-10] MEDS: PANTOPRAZOLE SOD 40 MG DELAYED RELEASE TAB PO SCH (08:27)
[2016-11-10] MEDS: GABAPENTIN 400 MG CAP PO SCH ×2 (08:28→22:13)
[2016-11-10] MEDS: SODIUM CHLORIDE 0.9% FLUSH 5 ML FLUSH FLUSH SCH ×2 (08:28→21:00)
[2016-11-10 09:02] LABS: MEAN CELL VOLUME 87.9 FL (80.0-100.0); MEAN CORPUSCULAR HEMOGLOBIN 30.7 PG (27.0-34.0); MEAN CORPUSCULAR HGB CONC 34.9 % (32.0-36.0); PLATELET COUNT 163 TH/MM3 (150-450); WHITE BLOOD COUNT 1.5 TH/MM3 (4.0-11.0)
[2016-11-10 09:11] LABS: REVIEW FLAG FINAL
[2016-11-10 09:21] LABS: BICARBONATE 23.5 MEQ/L (21.0-32.0); MAGNESIUM 1.4 MG/DL (1.5-2.5); POTASSIUM 3.9 MEQ/L (3.5-5.1)
--- NOTE | 2016-11-10 10:30 | HHI.FPPN ---
Subjective Remarks Patient seen and examined this morning. Denies dizziness, but she says she has not tried getting up on her own. She would be agreeable to go to a group home facility, and says that it is okay with her to have a shared room. Denies nausea or vomiting. Denies chest pain or shortness of breath. Patient says she is trying to drink more fluids, but that she is having difficulty eating. She is asking today if she could have a feeding tube placed since she has not able to eat solid food. She said that she does not have any taste. ( Hafsa Faulkner MD) Objective Vitals Vital Signs Date Time Temp Pulse Resp B/P Pulse Ox O2 Delivery O2 Flow Rate FiO2 11/10/16 09:06 97.9 84 18 159/78 99 127/75 92/56 11/10/16 00:28 97.4 89 20 146/71 96 11/09/16 22:06 86 11/09/16 19:17 98.3 94 20 140/65 95 11/09/16 18:28 84 11/09/16 16:00 97.9 89 16 177/84 99 11/09/16 12:00 96.7 85 16 144/93 99 I/O 11/09/16 11/09/16 11/09/16 11/10/16 11/10/16 11/10/16 07:00 15:00 23:00 07:00 15:00 23:00 Intake Total 3663 ml Output Total 350 ml 100 ml Balance -350 ml 3663 ml -100 ml Intake Oral 1080 ml IV Total 2583 ml Output Urine Total 350 ml 100 ml # Voids 1 2 1 1 # Bowel Movements 0 1 (Hafsa Faulkner MD) Result Diagram: 11/10/16 0833 11/10/16 0833 A/P Assessment and Plan 51-year-old female with a PMH significant for squamous cell carcinoma of oropharynx, DM, recurrent UTIs admitted for dehydration and orthostatic hypotension with weakness and recurrent falls. Discharge Planning Pending medical improvement. Patient to be discharged to group home facility likely today or tomorrow, pending placement Discussed with case management Discussed with Dr. Herrera (Hafsa Faulkner MD) Attending Attestation Patient seen and examined. Case reviewed and discussed with the resident team. Agree with plan of care as discussed with me and documented in the resident note. (Felicia Herrera MD) Problem List: (1) Orthostatic hypotension Status: Acute Plan: Blood pressures continue to be significantly orthostatic this morning despite adequate fluid hydration since admission -Started salt tablets daily -consider midodrine if not improved (2) Dehydration Status: Acute Plan: Patient admits to poor oral intake at home. Regarding patient request for feeding tube, explained that this is most likely due to radiation treatment, and may improve after radiation is completed. Patient voices understanding. -Received normal saline fluid bolus in ED -Continue normal saline at 1.5 maintenance fluids, fluids 100 cc/hour -Counseled patient on the importance of good hydration at home to prevent dehydration -she is still orthostatic despite adequate hydration. -Cardiology was consulted, no further recommendations. -Added salt tablets daily. (3) Frequent falls Status: Chronic Plan: See plan as above -Physical therapy consulted, recommended group home facility for rehabilitation -Continue daily physical therapy while inpatient Case management consulted to assist with safe discharge planning (4) DM (diabetes mellitus), type 2, uncontrolled w/neurologic complication Status: Chronic Plan: Insulin-dependent. -Levemir 5 mg daily at bedtime, can increase to twice a day -Low-dose insulin correctional scale, has not required any since admission -On gabapentin 800 mg twice a day (5) UTI (lower urinary tract infection) Status: Acute Plan: History of recurrent UTIs and urine culture in April 2016 grew ESBL UTI sensitive only to carbapenems, was also sensitive to Macrobid with ROSINA <32. -Urine culture 11/08/16 showing Klebsiella pneumonia, pansensitive -Rocephin 1 g IV daily while inpatient -Plan to discharge home on ofloxacin, to complete 7 day course (6) Squamous cell carcinoma of oropharynx Status: Chronic Plan: Followed by Dr. Umanzor. On radiation treatment. Last chemotherapy was in September. No further plan for chemotherapy. Still getting radiation. -Radiation treatment provided today, and continue daily. Patient missed one session yesterday. (7) Gastroparesis due to DM Status: Acute Plan: Gastric emptying study previous admission showed gastroparesis. EGD showed mild gastritis, esophagitis and duodenal erosions. Continue PPI and observation. Biopsy results show mild chronic gastritis, negative for Helicobacter pylori, negative for metaplasia or dysplasia. Plan: -Protonix 40 mg daily -Monitor I's and O's -Consider erythromycin as outpatient. Medications: Zofran 4 mg IV when necessary Reglan 5mg IV when necessary, was not effective on recent test so can consider erythromycin if not effective. (8) Depression Status: Acute Plan: Concern for underlying depression. -pt refuses Celexa . can consider starting if pt agrees to this (9) Nutrition, metabolism, and development symptoms Status: Acute Plan: Diet: Diabetic diet, she is not eating well as she has no appetite. 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
[2016-11-10] MEDS ORDERED: CIPR-9 PO (11:18)
[2016-11-10] MEDS ORDERED: SODI1TAB PO (11:18)
--- NOTE | 2016-11-10 11:21 | HHI.DCPOC ---
Discharge Care Plan Diagnosis: (1) DM (diabetes mellitus), type 2, uncontrolled w/neurologic complication (2) Oropharyngeal cancer (3) COPD (chronic obstructive pulmonary disease) (4) Dehydration (5) Squamous cell carcinoma of oropharynx (6) Severe dehydration (7) Orthostatic hypotension (8) Generalized weakness (9) Debility (10) Urinary tract infection (11) Cancer of neck Goals to Promote Your Health * To prevent worsening of your condition and complications * To maintain your health at the optimal level Directions to Meet Your Goals Take your medications as prescribed Follow your dietary instruction Follow activity as directed Keep your appointments as scheduled Take your immunizations and boosters as scheduled If your symptoms worsen call your PCP, if no PCP go to Urgent Care Center or Emergency Room Smoking is Dangerous to Your Health. Avoid second hand smoke Call the 24-hour hour crisis hotline for domestic abuse at Hafsa Faulkner MD Nov 10, 2016 11:21
[2016-11-10] MEDS: MAGNESIUM SULFATE 1 GM PREMIX 100 ML IV SCH ×2 (12:40→13:48)
[2016-11-10] MEDS: SODIUM CHLORIDE 1 GRAM TAB PO SCH (13:08)
[2016-11-10] MEDS: ENOXAPARIN SODIUM 40 MG/0.4 ML SYRINGE SQ SCH (14:59)
[2016-11-10] MEDS: cefTRIAXone INJ 1,000 MG in SODIUM CHLORIDE 0.9% INJ 100 ML IV SCH (14:59)
[2016-11-10] MEDS: INSULIN DETEMIR 100 UNITS/ML VIAL SQ SCH (22:14)
[2016-11-11] VITALS (7 sets, daily range): BP systolic 64–160; BP diastolic 38–86; PULSE 78–86; RESP 16–20; TEMP 97.8–98.9; O2SAT 95–99
[2016-11-11] MEDS: ACETAMINOPHEN 325 MG TAB PO PRN ×2 (00:48→21:49)
[2016-11-11] MEDS: SODIUM CHLOR 0.9% 1000 ML INJ 1,000 ML IV SCH ×2 (03:57→14:00)
[2016-11-11] MEDS: INSULIN ASPART SUPPLEMENTAL SCALE SQ SCH ×4 (07:00→21:45)
[2016-11-11] MEDS: PANTOPRAZOLE SOD 40 MG DELAYED RELEASE TAB PO SCH (09:20)
[2016-11-11] MEDS: SODIUM CHLORIDE 1 GRAM TAB PO SCH (09:20)
[2016-11-11] MEDS: GABAPENTIN 400 MG CAP PO SCH ×2 (09:20→21:45)
[2016-11-11] MEDS: SODIUM CHLORIDE 0.9% FLUSH 5 ML FLUSH FLUSH SCH ×2 (09:20→21:44)
--- NOTE | 2016-11-11 09:37 | HHI.FPPN ---
Subjective Remarks Patient seen and examined this morning. She feels well this morning. She wants to try getting up out of bed using the walker. Denies dizziness. Overall feeling improved compared to admission. Denies chest pain, shortness of breath, nausea, vomiting. She says she is still not feeling like eating much and asks if she can get glucerna shakes prescribed on discharge. (Hafsa Faulkner MD) Objective Vitals Vital Signs Date Time Temp Pulse Resp B/P Pulse Ox O2 Delivery O2 Flow Rate FiO2 11/11/16 09:30 97.9 86 18 150/84 99 11/11/16 04:28 97.8 78 18 96/53 95 68/40 64/38 11/11/16 01:52 18 11/11/16 00:08 97.9 86 18 98/52 97 11/10/16 21:30 87 11/10/16 19:21 98.9 97 20 126/67 98 11/10/16 16:38 98.4 90 18 149/82 99 11/10/16 13:03 99 21 11/10/16 12:27 98.3 88 16 145/78 99 I/O 11/10/16 11/10/16 11/10/16 11/11/16 11/11/16 11/11/16 07:00 15:00 23:00 07:00 15:00 23:00 Intake Total 1000 ml Balance 1000 ml Intake Oral 400 ml IV Total 600 ml # Voids 1 2 1 (Hafsa Faulkner MD) Result Diagram: 11/10/16 0833 11/10/16 0833 Objective Remarks GENERAL: Sitting up on side of bed, no acute distress SKIN: Warm and dry. HEAD: Atraumatic. Normocephalic. CARDIOVASCULAR: Regular rate and rhythm. RESPIRATORY: No accessory muscle use. Clear to auscultation. Breath sounds equal bilaterally. GASTROINTESTINAL: Abdomen soft, non-tender, nondistended. MUSCULOSKELETAL: Extremities without clubbing, cyanosis, or edema. NEUROLOGICAL: Awake and alert. No obvious cranial nerve deficits. Motor grossly within normal limits. Normal speech. (Hafsa Faulkner MD) A/P Assessment and Plan 51-year-old female with a PMH significant for squamous cell carcinoma of oropharynx, DM, recurrent UTIs admitted for dehydration and orthostatic hypotension with weakness and recurrent falls. Discharge Planning Pending ability to ambulate with walker and continued physical therapy daily. Patient may be able to go home with home health care today or tomorrow. Discussed with Case Management and patient will not be accepted to any local residential facility due to past behavior per CM discussion after talking with the nursing facilities. Patient declines going to rehab facility in [place] or outside of this area. Discussed with Dr. Herrera (Hafsa Faulkner MD) Attending Attestation Patient seen and examined. Case reviewed and discussed with the resident team. Agree with plan of care as discussed with me and documented in the resident note. She has had so many admissions for weakness and other problems that if she can go to a rehab facility for even a few weeks, it should help to prevent further admissions (Felicia Herrera MD) Problem List: (1) Orthostatic hypotension Status: Acute Plan: Blood pressures taken manually was normal this morning 134/86. Unsure why automatic cuff readings were so low this morning, but suspect this was an equipment error -Has been on fluid hydration since admission -Salt tablets daily, continue on discharge -Consider midodrine if not improved (2) Dehydration Status: Acute Plan: Patient admits to poor oral intake at home. Requesting Glucerna shakes be provided on discharge. -Continue normal saline at 1.5 maintenance fluids,at 100 cc/hour -Counseled patient on the importance of good hydration at home to prevent dehydration -Cardiology was consulted, no further recommendations. -Added salt tablets daily (3) Frequent falls Status: Chronic Plan: See plan as above -Continue daily physical therapy while inpatient Case management consulted, appreciate assistance with discharge planning (4) DM (diabetes mellitus), type 2, uncontrolled w/neurologic complication Status: Chronic Plan: Insulin-dependent. -Levemir 5 mg daily at bedtime, can increase to twice a day -Low-dose insulin correctional scale, has not required any since admission -On gabapentin 800 mg twice a day (5) UTI (lower urinary tract infection) Status: Acute Plan: History of recurrent UTIs and urine culture in April 2016 grew ESBL UTI sensitive only to carbapenems, was also sensitive to Macrobid with ROSINA <32. -Urine culture 11/08/16 showing Klebsiella pneumonia, pansensitive -Rocephin 1 g IV daily while inpatient -Plan to discharge home on Ciprofloxacin, to complete 7 day course (6) Squamous cell carcinoma of oropharynx Status: Chronic Plan: Followed by Dr. Umanzor. On radiation treatment. Last chemotherapy was in September. No further plan for chemotherapy. Still getting radiation. -Radiation treatment to continue daily while inpatient. (7) Gastroparesis due to DM Status: Acute Plan: Gastric emptying study previous admission showed gastroparesis. EGD showed mild gastritis, esophagitis and duodenal erosions. Continue PPI and observation. Biopsy results show mild chronic gastritis, negative for Helicobacter pylori, negative for metaplasia or dysplasia. Plan: -Protonix 40 mg daily -Monitor I's and O's -Consider erythromycin as outpatient. Medications: Zofran 4 mg IV when necessary Reglan 5mg IV when necessary, was not effective on recent test so can consider erythromycin if not effective. (8) Depression Status: Acute Plan: Concern for underlying depression. -pt refuses Celexa . can consider starting if pt agrees to this (9) Nutrition, metabolism, and development symptoms Status: Acute Plan: Diet: Diabetic diet, she is not eating well as she has no appetite. Drinking glucerna 3 times a day as supplement Electrolytes: WNL, continue to monitor DVT prophylaxis: Lovenox 40 SQ q24hrs GI prophylaxis: Protonix 40 mg daily (Hafsa Faulkner MD) Problem Qualifiers (1) DM (diabetes mellitus), type 2, uncontrolled w/neurologic complication: Qualified Code: E11.40 - Uncontrolled type 2 diabetes mellitus with diabetic neuropathy, unspecified buttermaker insulin use status (2) Depression: Qualified Code: F32.9 - Depression, unspecified depression type Hafsa Faulkner MD Nov 11, 2016 09:37 Felicia Herrera MD Nov 14, 2016 09:09
[2016-11-11] MEDS ORDERED: WALKER WHEELS/F1 MIS (10:09)
--- NOTE | 2016-11-11 10:12 | HHI.FF ---
Face to Face Verification Diagnosis: (1) Low blood pressure (2) Fall (3) Severe dehydration (4) Weakness (5) Orthostatic hypotension (6) Cancer of neck (7) Debility (8) Generalized weakness (9) Urinary tract infection Physical Therapy Order: Evaluate and Treat Home Health Nursing Order: Medical education Signs/symptoms of disease process Medication education-adverse effect I have seen patient Jaqueline Arechiga on 11/11/16. My clinical findings support the need for the requested home health care services because: Ltd mobility - disease progression Patient has SOB Deconditioned w/ increased weakness Limited ability to care for self High risk of falls I certify that my clinical findings support that this patient is homebound because: Hx COPD- exertion dyspnea/weakness Unsteady gait/balance Hafsa Faulkner MD Nov 11, 2016 10:11
[2016-11-11] MEDS ORDERED: GLUCLIQ15 PO ×2 (12:52→12:53)
[2016-11-11] MEDS: ENOXAPARIN SODIUM 40 MG/0.4 ML SYRINGE SQ SCH (13:30)
[2016-11-11] MEDS: cefTRIAXone INJ 1,000 MG in SODIUM CHLORIDE 0.9% INJ 100 ML IV SCH (13:30)
[2016-11-11] MEDS: INSULIN DETEMIR 100 UNITS/ML VIAL SQ SCH (21:45)
[2016-11-12] VITALS (8 sets, daily range): BP systolic 110–149; BP diastolic 66–83; PULSE 74–88; RESP 18–21; TEMP 97.8–98.8; O2SAT 93–99
[2016-11-12] MEDS: SODIUM CHLOR 0.9% 1000 ML INJ 1,000 ML IV SCH ×3 (02:02→22:22)
[2016-11-12] MEDS: INSULIN ASPART SUPPLEMENTAL SCALE SQ SCH ×4 (06:15→22:25)
[2016-11-12 06:49] LABS: BICARBONATE 28.8 MEQ/L (21.0-32.0); POTASSIUM 3.8 MEQ/L (3.5-5.1)
[2016-11-12 07:08] LABS: HEMATOCRIT 26.1 % (35.0-46.0); MEAN CELL VOLUME 87.4 FL (80.0-100.0); MEAN CORPUSCULAR HGB CONC 35.5 % (32.0-36.0); PLATELET COUNT 162 TH/MM3 (150-450); RED BLOOD COUNT 2.99 MIL/MM3 (4.00-5.30)
[2016-11-12 07:20] LABS: HEMO FLAGS AUTO DIFF
[2016-11-12] MEDS: SODIUM CHLORIDE 0.9% FLUSH 5 ML FLUSH FLUSH SCH ×2 (09:00→22:23)
--- NOTE | 2016-11-12 09:38 | HHI.FPPN ---
Subjective Remarks Patient seen and examined this morning. Denies dizziness. She would be agreeable to go to a [facility]dc facility in [place], and says that it is okay with her to have a shared room. She says she knows she needs this in order to become stronger. Denies nausea or vomiting. Denies chest pain or shortness of breath. Patient says she is trying to drink more fluids, and that someone from the radiation department gave her 2 cases of supplemental nutrition shakes. Objective Vitals Vital Signs Date Time Temp Pulse Resp B/P Pulse Ox O2 Delivery O2 Flow Rate FiO2 11/12/16 07:14 97.8 84 18 140/81 98 11/12/16 04:09 88 11/12/16 03:58 98.3 80 20 110/67 93 11/12/16 00:24 98.4 87 18 132/66 97 11/11/16 23:00 16 11/11/16 19:56 98.9 84 20 130/60 99 11/11/16 12:15 98.2 85 16 160/78 95 11/11/16 10:06 134/86 I/O 11/11/16 11/11/16 11/11/16 11/12/16 11/12/16 11/12/16 07:00 15:00 23:00 07:00 15:00 23:00 Intake Total 960 ml 240 ml Balance 960 ml 240 ml Intake Oral 960 ml 240 ml # Voids 1 4 2 Result Diagram: 11/12/16 0547 11/12/16 0547 Objective Remarks GENERAL: Sitting up on side of bed, no acute distress SKIN: Warm and dry. HEAD: Atraumatic. Normocephalic. CARDIOVASCULAR: Regular rate and rhythm. RESPIRATORY: No accessory muscle use. Clear to auscultation. Breath sounds equal bilaterally. GASTROINTESTINAL: Abdomen soft, non-tender, nondistended. MUSCULOSKELETAL: Extremities without clubbing, cyanosis, or edema. NEUROLOGICAL: Awake and alert. No obvious cranial nerve deficits. Motor grossly within normal limits. Normal speech. A/P Assessment and Plan 51-year-old female with a PMH significant for squamous cell carcinoma of oropharynx, DM, recurrent UTIs admitted for dehydration and orthostatic hypotension with weakness and recurrent falls. Discharge Planning Patient now agreeable to going to rehab facility in [facility]. Case management put in a call to this facility yesterday, and authorization is pending. Discussed with case management in ED this morning, likely patient would not be able to be accepted until earliest Monday. She could also possibly go home with home health care, but has not yet been arranged and per case management today, this would also be on Monday at the earliest Discussed with Dr. Herrera Problem List: (1) Orthostatic hypotension Status: Acute Plan: Blood pressures well controlled -Has been on fluid hydration since admission -Salt tablets daily, continue on discharge -Consider midodrine if not improved (2) Dehydration Status: Acute Plan: Patient admits to poor oral intake at home. Patient has received 2 cases of supplemental nutrition shakes. -Continue normal saline at 100 cc/hour -Counseled patient on the importance of good hydration at home to prevent dehydration -Cardiology was consulted, no further recommendations. (3) Frequent falls Status: Chronic Plan: See plan as above -Continue daily physical therapy while inpatient. Patient was not seen by physical therapy yesterday. Nursing has called physical therapy today, no answer but she is going to continue attempting to reach them the patient will be seen by physical therapy today Case management consulted, appreciate assistance with discharge planning (4) DM (diabetes mellitus), type 2, uncontrolled w/neurologic complication Status: Chronic Plan: Insulin-dependent. -Levemir 5 mg daily at bedtime, can increase to twice a day -Low-dose insulin correctional scale, has not required any since admission -On gabapentin 800 mg twice a day (5) UTI (lower urinary tract infection) Status: Acute Plan: History of recurrent UTIs and urine culture in April 2016 grew ESBL UTI sensitive only to carbapenems, was also sensitive to Macrobid with ROSINA <32. -Urine culture 11/08/16 showing Klebsiella pneumonia, pansensitive -Rocephin 1 g IV daily while inpatient -Plan to discharge home on Ciprofloxacin, to complete 7 day course (6) Squamous cell carcinoma of oropharynx Status: Chronic Plan: Followed by Dr. Umanzor. On radiation treatment. Last chemotherapy was in September. No further plan for chemotherapy. Still getting radiation. -Radiation treatment to continue daily while inpatient. Patient was unable to receive treatment yesterday, she states that the machine was broken -Heme/onc consulted this morning for neutropenia, may require Neupogen (7) Gastroparesis due to DM Status: Acute Plan: Gastric emptying study previous admission showed gastroparesis. EGD showed mild gastritis, esophagitis and duodenal erosions. Continue PPI and observation. Biopsy results show mild chronic gastritis, negative for Helicobacter pylori, negative for metaplasia or dysplasia. Plan: -Protonix 40 mg daily -Monitor I's and O's -Consider erythromycin as outpatient. Medications: Zofran 4 mg IV when necessary Reglan 5mg IV when necessary, was not effective on recent test so can consider erythromycin if not effective. (8) Depression Status: Acute Plan: Concern for underlying depression. -pt refuses Celexa . can consider starting if pt agrees to this (9) Nutrition, metabolism, and development symptoms Status: Acute Plan: Diet: Diabetic diet, she is not eating well as she has no appetite. 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
[2016-11-12] MEDS: PANTOPRAZOLE SOD 40 MG DELAYED RELEASE TAB PO SCH (09:45)
[2016-11-12] MEDS: GABAPENTIN 400 MG CAP PO SCH ×2 (09:46→22:23)
[2016-11-12] MEDS: SODIUM CHLORIDE 1 GRAM TAB PO SCH (09:46)
[2016-11-12 10:08] LABS: EOSINOPHILS 1 % (0-4); POLYS (SEG NEUTROPHILS) 17 % (16-70); WBC DIFF SAMPLE 100
[2016-11-12 10:17] LABS: NEUTROPHIL # MANUAL DIFF 0.2 TH/MM3 (1.8-7.7)
[2016-11-12 10:18] LABS: PLATELET ESTIMATE SMEAR NORMAL (NORMAL); PLATELET MORPHOLOGY NORMAL (NORMAL); SCAN/DIFF FINAL DIFF MANUAL
[2016-11-12] MEDS: cefTRIAXone INJ 1,000 MG in SODIUM CHLORIDE 0.9% INJ 100 ML IV SCH (14:00)
[2016-11-12] MEDS: ENOXAPARIN SODIUM 40 MG/0.4 ML SYRINGE SQ SCH (16:28)
--- NOTE | 2016-11-12 20:21 | MB ---
cc: CHANTELL FAULKNER MD, BOON Y. M.D. DEVERAS, RUBY ANNE E. M.D. DATE OF 1965 DATE OF SERVICE 11/12/[address] Vesna Faulkner CHIEF COMPLAINT Dr. Faulkner requested consultation for Ms. Arechiga regarding neutropenia in the absence of chemotherapy. HISTORY OF PRESENT ILLNESS Ms. Arechiga is a 51-year-old woman with a long history of tobacco and alcohol abuse. She initially presented to [facility] with right base of tongue mass. 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 She had right neck tenderness, T-16 positivity[address] pet scan shows no evidence of metastatic disease. She was started on concurrent chemotherapy and radiation as definitive treatment. Her course was complicated by nausea and vomiting. At some point she was unable to tolerate chemotherapy and therefore proceeded with radiation alone. Her last dose of chemotherapy was in September. She has other medical problems including diabetes, peripheral neuropathy, gastroparesis, hypertension, history of stroke, cataract, osteoarthritis, peripheral vascular disease and treated hepatitis C. Her liver functions are normal. Imaging studies show that the liver looks normal with normal spleen size. She was admitted on November 08, 2016 because of complaints of generalized weakness, near syncope and falls. She was admitted initially under observation. She had orthostatic hypotension, dehydration and her other medical problems addressed by the primary team including her depression. She is pending discharge to a shelter facility in [place]. In the meantime she continued on radiation therapy under the care of Dr. Nagy without chemotherapy. On admission her white cell count was 3.8. She was mildly anemic with hemoglobin of 11.5, white blood cell count trended down to a white blood cell count 1.0, ANC of 200, at the time of the consultation, her hemoglobin was 9.3. She denies any bleeding. She has been afebrile. She has been on antibiotic therapy with ceftriaxone with the first dose starting on the . Neutropenic precautions have been placed on. Ms. Arechiga has many symptoms. She is not nauseous at present. She feels full. She has numbness of her legs chronically. She has alterations in her taste. She feels the roughness of her skin post radiation. The rest of her review of systems is negative. PAST MEDICAL HISTORY Past medical history diabetes type 2, peripheral neuropathy, gastroparesis, squamous cell cancer base of tongue, depression, dehydration, peripheral vascular disease, hepatitis C, osteoarthritis, cataract, history of pancreatitis. History of osteomyelitis. Recurrent UTI, hyperlipidemia. PAST SURGICAL HISTORY Past surgical history of tonsillectomy. Port placement, cholecystectomy, appendectomy, right fifth digit amputation pacemaker placement. Left femoral stent, . FAMILY HISTORY Father is with heart disease. Mother is of unknown medical history. SOCIAL HISTORY She lives with her boyfriend, is pending transfer to a rehab. Denies any alcohol use. Quit smoking in 2003, has at least 14 years since quitting but she has about a 30 pack-year smoking history. PHYSICAL EXAMINATION VITAL SIGNS: Temperature 98.6, heart rate 88, respiratory rate 18, blood pressure 123/74, saturation 96%. GENERAL: Ms. Arechiga is a well-developed, well-nourished kyphotic appearing woman who looks older than stated age. Her hair is short and recovering. HEENT: Her pupils are round, reactive to light and accommodation. Oropharynx is dry. She is edentulous. Tongue is smooth. Neck is supple. No masses. There is hyperpigmented post radiation changes. Some areas of desquamation. LUNGS: Clear to auscultation. CARDIOVASCULAR: Exam reveals normal rate, rhythm. ABDOMEN: Abdomen is distended and benign. EXTREMITIES: Lower extremity with trace ankle edema and subjective peripheral neuropathy. NEUROLOGICAL: Exam is nonfocal. LABORATORY DATA Significant for leukopenia/neutropenia. ANC 200, hemoglobin 9.3, BUN of 4, creatinine 0.3, last magnesium was 1.4. ASSESSMENT/PLAN Ms. Arechiga is a 51-year-old woman with multiple medical problems described above including untreated hepatitis C. She has no evidence of cirrhosis by imaging or hypersplenism. Her blood counts prior to admission shows mild decrease in white blood cell count, platelets for the large part are normal. The anemia has been mild but worsened over the past 2 months. She has had intermittent neutropenia on review of the electronic medical records, however, the leukopenia has been progressive since admission since November 08, 2016 to suggest possible drug effect. Her ANC is 200 at the time of the consultation. The only medication and consideration is ceftriaxone which she is receiving once daily which started on November 08. She appears to have taken cephalosporins in the past and does not have that as an allergy. Her peripheral smear will be reviewed. We will check a retic count. I suspect some of the cytopenias related to the continued radiation. She is no longer receiving chemotherapy and therefore cannot attribute the leukopenia to the chemotherapy agent. I would hold these ceftriaxone to see if this is indeed etiology of the acute leukopenia/neutropenia. So far she is afebrile. We will continue to monitor for fever, a culture as needed. Empiric antibiotic can be started if symptoms arise. Dr. Umanzor will return on Monday to resume her care. Her questions were answered to her satisfaction. G-CSF support cannot be administered in light of the radiation therapy which is planned to resume on Monday. Cecilia Carbone MD RAD/EO /2:40 PM /7:49 PM
[2016-11-12] MEDS: ACETAMINOPHEN 325 MG TAB PO PRN (22:23)
[2016-11-12] MEDS: INSULIN DETEMIR 100 UNITS/ML VIAL SQ SCH (22:24)
[2016-11-13] VITALS (8 sets, daily range): BP systolic 80–133; BP diastolic 44–78; PULSE 80–91; RESP 18–22; TEMP 98–98.8; O2SAT 93–99
[2016-11-13] MEDS: INSULIN ASPART SUPPLEMENTAL SCALE SQ SCH ×4 (05:45→22:05)
[2016-11-13 08:45] LABS: HEMATOCRIT 26.6 % (35.0-46.0); MEAN CELL VOLUME 87.4 FL (80.0-100.0); MEAN CORPUSCULAR HEMOGLOBIN 31.2 PG (27.0-34.0); MEAN CORPUSCULAR HGB CONC 35.7 % (32.0-36.0); PLATELET COUNT 184 TH/MM3 (150-450); RED BLOOD COUNT 3.05 MIL/MM3 (4.00-5.30); RED CELL DISTRIBUTION WIDTH 14.6 % (11.6-17.2); WHITE BLOOD COUNT 0.8 TH/MM3 (4.0-11.0)
[2016-11-13 08:50] LABS: RETIC % 0.9 % (0.4-3.0)
[2016-11-13 08:50] LABS: HEMO FLAGS AUTO DIFF
[2016-11-13 09:11] LABS: REVIEW FLAG FINAL
[2016-11-13 09:16] LABS: BICARBONATE 31.3 MEQ/L (21.0-32.0); MAGNESIUM 1.4 MG/DL (1.5-2.5); POTASSIUM 3.8 MEQ/L (3.5-5.1)
[2016-11-13] MEDS: PANTOPRAZOLE SOD 40 MG DELAYED RELEASE TAB PO SCH (09:48)
[2016-11-13] MEDS: SODIUM CHLORIDE 1 GRAM TAB PO SCH (09:48)
[2016-11-13] MEDS: GABAPENTIN 400 MG CAP PO SCH ×2 (09:48→21:58)
[2016-11-13] MEDS: SODIUM CHLORIDE 0.9% FLUSH 5 ML FLUSH FLUSH SCH ×2 (09:49→21:00)
--- NOTE | 2016-11-13 10:04 | HHI.FPPN ---
Subjective Remarks Patient seen and examined this morning. Denies dizziness. She wants to go to [facility] in [place] because she knows she needs this in order to become stronger. She thinks if she goes home without help or physical therapy then she may come right back to the hospital. Denies nausea or vomiting. Denies chest pain or shortness of breath. Patient says she is drinking more fluids, including Glucerna, milk, and diet sodas. She says that her feet are more swollen today. She states that radiation was not done yesterday because they do not do this on the weekends. (Hafsa Faulkner MD) Objective Vitals Vital Signs Date Time Temp Pulse Resp B/P Pulse Ox O2 Delivery O2 Flow Rate FiO2 11/13/16 08:08 98.3 86 18 105/65 95 11/13/16 05:03 80 11/13/16 04:45 98.4 87 22 127/77 98 11/12/16 23:59 98.0 78 21 147/72 99 11/12/16 23:29 18 11/12/16 20:26 98.0 74 21 147/72 98 11/12/16 15:43 98.8 88 18 149/83 97 11/12/16 11:30 98.6 88 18 123/74 96 I/O 11/12/16 11/12/16 11/12/16 11/13/16 11/13/16 11/13/16 07:00 15:00 23:00 07:00 15:00 23:00 Intake Total 240 ml 720 ml Balance 240 ml 720 ml Intake Oral 240 ml 720 ml # Voids 2 2 4 # Bowel Movements 2 (Hafsa Faulkner MD) Result Diagram: 11/13/16 0739 11/13/16 0734 Objective Remarks GENERAL: Sitting up on side of bed, no acute distress SKIN: Warm and dry. HEAD: Atraumatic. Normocephalic. CARDIOVASCULAR: Regular rate and rhythm. RESPIRATORY: No accessory muscle use. Clear to auscultation. Breath sounds equal bilaterally. GASTROINTESTINAL: Abdomen soft, non-tender, nondistended. MUSCULOSKELETAL: Extremities without clubbing or cyanosis. Lower extremities with 1+ edema of feet and ankles. NEUROLOGICAL: Awake and alert. No obvious cranial nerve deficits. Motor grossly within normal limits. Normal speech. (Hafsa Faulkner MD) A/P Assessment and Plan 51-year-old female with a PMH significant for squamous cell carcinoma of oropharynx, DM, recurrent UTIs admitted for dehydration and orthostatic hypotension with weakness and recurrent falls. Discharge Planning Patient now agreeable to going to rehab facility in [facility]. Case management put in a call to this facility yesterday, and authorization is pending. Discussed with case management in ED 11/12/16, likely patient would not be able to be accepted until earliest Monday. She could also possibly go home with home health care, but has not yet been arranged and per case management, this would also be on Monday at the earliest Discussed with Dr. Herrera (Hafsa Faulkner MD) Attending Attestation Patient seen and examined. Case reviewed and discussed with the resident team. Agree with plan of care as discussed with me and documented in the resident note. her pedal edema may be worsened by salt tablets. however, this is better than falls from orthostatic hypotension. hopefully with time she can D/C the salt tablets (Felicia Herrera MD) Problem List: (1) Orthostatic hypotension Status: Acute Plan: Blood pressures well controlled -Recheck orthostatic vitals today -Salt tablets daily, continue on discharge -Consider midodrine if not improved (2) Dehydration Status: Acute Plan: Patient admits to poor oral intake at home. Patient has received 2 cases of supplemental nutrition shakes. -Decrease normal saline to 42 cc/hour -Counseled patient on the importance of good hydration at home to prevent dehydration -Cardiology was consulted, no further recommendations. (3) Frequent falls Status: Chronic Plan: See plan as above -Continue daily physical therapy while inpatient Case management consulted, appreciate assistance with discharge planning (4) DM (diabetes mellitus), type 2, uncontrolled w/neurologic complication Status: Chronic Plan: Insulin-dependent. -Levemir 5 mg daily at bedtime, can increase to twice a day -Low-dose insulin correctional scale, has not required any since admission -On gabapentin 800 mg twice a day (5) UTI (lower urinary tract infection) Status: Acute Plan: History of recurrent UTIs and urine culture in April 2016 grew ESBL UTI sensitive only to carbapenems, was also sensitive to Macrobid with ROSINA <32. -Urine culture 11/08/16 showing Klebsiella pneumonia, pansensitive -Rocephin 1 g IV daily 11/08/16-11/11/16 (received 4 days), currently holding 2/2 neutropenia. -Ciprofloxacin 500mg PO q12hr started 11/13/16, to complete 7 day course. Stop date 11/16/16. Needs 2 doses on 11/13, 11/14 and 11/15. (6) Squamous cell carcinoma of oropharynx Status: Chronic Plan: Followed by Dr. Umanzor. On radiation treatment. Last chemotherapy was in September. No further plan for chemotherapy. Still getting radiation. -Radiation treatment to continue daily while inpatient. Patient was unable to receive treatment yesterday, she states that they are not open on weekends -Heme/onc consulted for neutropenia (7) Gastroparesis due to DM Status: Acute Plan: Gastric emptying study previous admission showed gastroparesis. EGD showed mild gastritis, esophagitis and duodenal erosions. Continue PPI and observation. Biopsy results show mild chronic gastritis, negative for Helicobacter pylori, negative for metaplasia or dysplasia. Plan: -Protonix 40 mg daily -Monitor I's and O's -Consider erythromycin as outpatient. Medications: Zofran 4 mg IV when necessary Reglan 5mg IV when necessary, was not effective on recent test so can consider erythromycin if not effective. (8) Depression Status: Acute Plan: Concern for underlying depression. -pt refuses Celexa . can consider starting if pt agrees to this (9) Nutrition, metabolism, and development symptoms Status: Acute Plan: Diet: Diabetic diet, she is not eating well as she has no appetite. 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
[2016-11-13 10:16] LABS: BANDS 1 % (0-6); BASOPHILS 2 % (0-2); EOSINOPHILS 2 % (0-4); MYELOCYTES 1 % (0-0); POLYS (SEG NEUTROPHILS) 30 % (16-70); WBC DIFF SAMPLE 100
[2016-11-13 10:21] LABS: NEUTROPHIL # MANUAL DIFF 0.3 TH/MM3 (1.8-7.7); PLATELET ESTIMATE SMEAR NORMAL (NORMAL); PLATELET MORPHOLOGY NORMAL (NORMAL); SCAN/DIFF FINAL DIFF MANUAL
[2016-11-13] MEDS ORDERED: MAGNESIUM SULFATE 1 GM PREMIX 100 ML IV ONE (11:45)
[2016-11-13] MEDS: CIPROFLOXACIN 500 MG TAB PO SCH ×2 (12:12→21:58)
[2016-11-13] MEDS: SODIUM CHLOR 0.9% 1000 ML INJ 1,000 ML IV SCH (12:12)
[2016-11-13] MEDS: ENOXAPARIN SODIUM 40 MG/0.4 ML SYRINGE SQ SCH (14:45)
--- NOTE | 2016-11-13 16:44 | PD.ONC.PN ---
Subjective Subjective Remarks "I got the magnesium" Denies any fevers, no pain. Objective Data Date Time Temp Pulse Resp B/P Pulse Ox O2 Delivery O2 Flow Rate FiO2 11/13/16 15:42 98.8 87 18 131/78 98 11/13/16 12:22 98.3 91 18 120/74 93 97/67 80/44 11/13/16 08:08 98.3 86 18 105/65 95 11/13/16 05:03 80 11/13/16 04:45 98.4 87 22 127/77 98 11/12/16 23:59 98.0 78 21 147/72 99 11/12/16 23:29 18 11/12/16 20:26 98.0 74 21 147/72 98 11/13/16 11/13/16 11/13/16 07:00 15:00 23:00 Intake Total 720 ml Balance 720 ml Result Diagram: 11/13/16 0739 11/13/16 0734 Laboratory Results Laboratory Tests Test 11/13/16 11/13/16 11/13/16 07:34 07:35 07:39 Reticulocyte Count 0.9 % Absolute Reticulocyte Count 26.3 MIL/L Sodium Level 143 MEQ/L Potassium Level 3.8 MEQ/L Chloride Level 105 MEQ/L Carbon Dioxide Level 31.3 MEQ/L Anion Gap 7 MEQ/L Blood Urea Nitrogen 3 MG/DL Creatinine 0.43 MG/DL Estimat Glomerular Filtration 155 ML/MIN Rate Random Glucose 119 MG/DL Calcium Level 9.0 MG/DL Magnesium Level 1.4 MG/DL Lactate Dehydrogenase 135 U/L Blood Smear Pathologist Review White Blood Count 0.8 TH/MM3 Red Blood Count 3.05 MIL/MM3 Hemoglobin 9.5 GM/DL Hematocrit 26.6 % Mean Corpuscular Volume 87.4 FL Mean Corpuscular Hemoglobin 31.2 PG Mean Corpuscular Hemoglobin 35.7 % Concent Red Cell Distribution Width 14.6 % Platelet Count 184 TH/MM3 Mean Platelet Volume 7.8 FL Neutrophils (%) (Auto) % Lymphocytes (%) (Auto) % Monocytes (%) (Auto) % Eosinophils (%) (Auto) % Basophils (%) (Auto) % Neutrophils # (Auto) TH/MM3 Lymphocytes # (Auto) TH/MM3 Monocytes # (Auto) TH/MM3 Eosinophils # (Auto) TH/MM3 Basophils # (Auto) TH/MM3 CBC Comment AUTO DIFF Differential Total Cells 100 Counted Neutrophils % (Manual) 30 % Band Neutrophils % 1 % Lymphocytes % 42 % Monocytes % 22 % Eosinophils % 2 % Basophils % 2 % Neutrophils # (Manual) 0.3 TH/MM3 Myelocytes 1 % Differential Comment FINAL DIFF MANUAL Platelet Estimate NORMAL Platelet Morphology Comment NORMAL Administered Medications Medications (Trade) Dose Ordered Sig/Mattie Route PRN Reason Start Time Stop Time Status Last Admin Dose Admin Acetaminophen (Tylenol) 650 mg Q4H PRN PO Temp > 100.4 or PAIN 11/08/16 12:45 11/12/16 22:23 IV Flush (NS Flush) 2 ml BID FLUSH 11/08/16 21:00 11/13/16 09:49 Enoxaparin Sodium 40 mg 40 mg Q24H SQ 11/08/16 14:00 11/13/16 14:45 Sodium Chloride (NS 1000 ml Inj) 1,000 ml @ 42 mls/hr [id number] IV 11/09/16 12:00 11/13/16 12:12 Gabapentin (Neurontin) 800 mg BID PO 11/08/16 21:00 11/13/16 09:48 Insulin Detemir 5 units 5 units HS SQ 11/08/16 21:00 11/12/16 22:24 Ceftriaxone Sodium/Sodium Chloride (Rocephin Inj/NS Inj) 100 ml @ 200 mls/hr Q24H IV 11/08/16 14:00 Hold 11/11/16 13:30 Pantoprazole Sodium (Protonix) 40 mg DAILY PO 11/09/16 09:00 11/13/16 09:48 Sodium Chloride (Sodium Chloride) 1 gm DAILY PO 11/10/16 12:00 11/13/16 09:48 Ciprofloxacin (Cipro) 500 mg Q12HR PO 11/13/16 11:00 11/16/16 10:59 11/13/16 12:12 Objective Remarks GENERAL: Well-nourished, well-developed patient. SKIN: Warm and dry. Hyperpigmented post inflammatory changes of the neck. HEAD: Normocephalic. Edentulous, smooth tongue. EYES: No scleral icterus. No injection or drainage. NECK: Supple, trachea midline. No JVD or lymphadenopathy. LYMPHATIC: No adenopathy. CARDIOVASCULAR: Regular rate and rhythm without murmurs. RESPIRATORY: Breath sounds equal bilaterally. No accessory muscle use. GASTROINTESTINAL: Abdomen soft, non-tender, nondistended. EXTREMITIES: No cyanosis, or trace edema. MUSCULOSKELETAL: Adequate muscle tone. NEUROLOGICAL: No obvious focal deficit. Awake, alert, and oriented x3. PSYCHIATRIC: Appropriate mood and affect; insight and judgment normal. Assessment/Plan Problem List: (1) Hypomagnesemia Status: Acute Plan: Mag 1.4, no improvement w/ oral replacement. IV replacement today. Check mag in AM. (2) Squamous cell carcinoma of oropharynx Status: Chronic Plan: Concurrent chemo and XRT initial treatment plan. Chemo held for over a month. Cont XRT complete treatment. FU w/ Dr. Umanzor. (3) Neutropenia due to irradiation Status: Acute Plan: Neutropenia with WBC trending down since 10/28. No certain if drug effect- related to Ceftriaxone however ANC improve since stopping Ceftriaxone. Neutropenia unlikely related to chemo since last chemo > 4 weeks ago. Unable to give GCSF due to XRT. Suspect neutropenia related to mucositis and toxicity of XRT. Continue supportive tx and prophylactic antibiotic and neutropenic precaution. Monitor for fever. Assessment 51 y/o woman with head and neck squamous cell carcinoma receiving XRT, chemo stopped due to toxicity. Heme onc consulted for persistent and progressive neutropenia. Plan 1. Monitor CBC and mag in AM. 2. Dr. Umanzor to return in AM. 3. Monitor for fever, culture if temp > 100.5 4. Advise XRT that pt is currently neutropenic Cecilia Carbone MD Nov 13, 2016 16:44
[2016-11-13 21:51] LABS: C. DIFF EPI 027 PRESUMPTIVE NEGATIVE (NEGATIVE); C. DIFF TOXIN PCR NEGATIVE (NEGATIVE)
[2016-11-13] MEDS: ZOLPIDEM TARTRATE 5 MG TAB PO PRN (21:58)
[2016-11-13] MEDS: ACETAMINOPHEN 325 MG TAB PO PRN (21:58)
[2016-11-13] MEDS: INSULIN DETEMIR 100 UNITS/ML VIAL SQ SCH (21:58)
[2016-11-14] VITALS (8 sets, daily range): BP systolic 93–142; BP diastolic 52–84; PULSE 81–96; RESP 16–20; TEMP 97.7–98.7; O2SAT 91–100
[2016-11-14] MEDS: SODIUM CHLOR 0.9% 1000 ML INJ 1,000 ML IV SCH (02:31)
[2016-11-14 04:32] LABS: HEMATOCRIT 26.4 % (35.0-46.0); MEAN CELL VOLUME 88.3 FL (80.0-100.0); MEAN CORPUSCULAR HEMOGLOBIN 30.8 PG (27.0-34.0); MEAN CORPUSCULAR HGB CONC 34.9 % (32.0-36.0); PLATELET COUNT 190 TH/MM3 (150-450); RED BLOOD COUNT 2.99 MIL/MM3 (4.00-5.30); RED CELL DISTRIBUTION WIDTH 14.7 % (11.6-17.2); WHITE BLOOD COUNT 1.1 TH/MM3 (4.0-11.0)
[2016-11-14 04:38] LABS: HEMO FLAGS AUTO DIFF
[2016-11-14] MEDS: INSULIN ASPART SUPPLEMENTAL SCALE SQ SCH ×4 (06:36→21:16)
[2016-11-14 08:18] LABS: EOSINOPHILS 5 % (0-4); POLYS (SEG NEUTROPHILS) 24 % (16-70); WBC DIFF SAMPLE 100
[2016-11-14 08:23] LABS: NEUTROPHIL # MANUAL DIFF 0.3 TH/MM3 (1.8-7.7); PLATELET ESTIMATE SMEAR NORMAL (NORMAL); PLATELET MORPHOLOGY NORMAL (NORMAL); SCAN/DIFF FINAL DIFF MANUAL
[2016-11-14] MEDS: PANTOPRAZOLE SOD 40 MG DELAYED RELEASE TAB PO SCH (08:35)
[2016-11-14] MEDS: SODIUM CHLORIDE 1 GRAM TAB PO SCH (08:35)
[2016-11-14] MEDS: GABAPENTIN 400 MG CAP PO SCH ×2 (08:35→20:24)
[2016-11-14] MEDS: CIPROFLOXACIN 500 MG TAB PO SCH ×2 (08:35→20:24)
[2016-11-14] MEDS: SODIUM CHLORIDE 0.9% FLUSH 5 ML FLUSH FLUSH SCH ×2 (09:00→21:00)
--- NOTE | 2016-11-14 09:44 | HHI.FPPN ---
Subjective Remarks Patient seen this morning. No acute events overnight. Vitals essentially WNL. Patient c/o continued weakness. States she has moderate improvement compared to yesterday. Swelling in feet unchanged from yesterday. Tolerating PO diet. Would like script for glucerna shakes. Feels ready for DC. Would be okay with Home Health if she is able to get daily PT and OT. Scheduled for radiation therapy today. Hematology has alerted radiation center regarding neutropenia. Objective Vitals Vital Signs Date Time Temp Pulse Resp B/P Pulse Ox O2 Delivery O2 Flow Rate FiO2 11/14/16 08:07 98.1 87 16 133/78 99 142/79 93/56 11/14/16 04:47 98.7 84 20 114/62 91 11/13/16 23:50 98.1 82 20 114/70 98 11/13/16 20:04 84 11/13/16 19:41 98.0 90 20 133/76 99 11/13/16 15:42 98.8 87 18 131/78 98 11/13/16 12:22 98.3 91 18 120/74 93 97/67 80/44 I/O 11/13/16 11/13/16 11/13/16 11/14/16 11/14/16 11/14/16 07:00 15:00 23:00 07:00 15:00 23:00 Intake Total 720 ml 240 ml 300 ml Balance 720 ml 240 ml 300 ml Intake Oral 720 ml 30 ml IV Total 210 ml 300 ml # Voids 4 2 1 # Bowel Movements 2 1 Result Diagram: 11/14/16 0420 11/13/16 0734 Objective Remarks GENERAL: Sitting up on side of bed, no acute distress. SKIN: Warm and dry. No rashes. HEAD: Atraumatic. Normocephalic. CARDIOVASCULAR: Regular rate and rhythm. RESPIRATORY: No accessory muscle use. Clear to auscultation. Breath sounds equal bilaterally. GASTROINTESTINAL: Abdomen soft, non-tender, nondistended. MUSCULOSKELETAL: Extremities without clubbing or cyanosis. Lower extremities with 1+ edema of feet and ankles. Appears unchanged from previous exam. NEUROLOGICAL: Awake and alert. No obvious cranial nerve deficits. Motor grossly within normal limits. Normal speech. A/P Assessment and Plan 51-year-old female with a PMH significant for squamous cell carcinoma of oropharynx, DM, recurrent UTIs admitted for dehydration and orthostatic hypotension with weakness and recurrent falls. Discharge Planning Patient agreeable to HH with PT/OT versus rehab. CM working on placement to rehab in [place]. Will follow up with them this AM. Plan for DC home as early as today. Will discuss with Dr. Holloway. Problem List: (1) Orthostatic hypotension Status: Acute Plan: Orthostatic when checked by PT yesterday. Re-check orthostatic vitals today. -Midodrine if still orthostatic -Salt tablets daily, continue on discharge (2) Dehydration Status: Acute Plan: Patient admits to poor oral intake at home. Patient has received 2 cases of supplemental nutrition shakes. -DC IVF. Encourage PO hydration. -Cardiology was consulted, no further recommendations. (3) Frequent falls Status: Chronic Plan: Improving. Likely combination of orthostatic hypotension, dehydration, anemia and hypomagnesemia. No recent chemotherapy. (4) Hypomagnesemia Status: Acute Plan: Improved. Could be contributing to above. -magnesium up to 1.7 today compared to 1.4 yesterday. Received IV Mg x1 yesterday. -start Mg Ox 400 mg BID -re-check Mg level in AM (5) DM (diabetes mellitus), type 2, uncontrolled w/neurologic complication Status: Chronic Plan: Insulin-dependent. Fasting sugar in the 130s. Post-prandials in the 200s. -cont levemir 5 units HS -Low-dose insulin correctional scale, has not required any since admission -On gabapentin 800 mg twice a day (6) UTI (lower urinary tract infection) Status: Acute Plan: History of recurrent UTIs and urine culture in April 2016 grew ESBL UTI sensitive only to carbapenems, was also sensitive to Macrobid with ROSINA <32. -Urine culture 11/08/16 showing Klebsiella pneumonia, pansensitive -Rocephin 1 g IV daily 11/08/16-11/11/16 (received 4 days), currently holding 2/2 neutropenia. -Ciprofloxacin 500mg PO q12hr started 11/13/16, to complete 7 day course. Stop date 11/16/16. Needs 2 doses on 11/13, 11/14 and 11/15. 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 Umanzor. On radiation treatment. Last chemotherapy was in September. No further plan for chemotherapy. Still getting radiation. -Radiation treatment to continue daily while inpatient. -Heme/onc consulted. Have alerted radiation center regarding neutropenia. -speech therapy consult for swallow eval (8) Gastroparesis due to DM Status: Acute Plan: Gastric emptying study previous admission showed gastroparesis. EGD showed mild gastritis, esophagitis and duodenal erosions. Continue PPI and observation. Biopsy results show mild chronic gastritis, negative for Helicobacter pylori, negative for metaplasia or dysplasia. Plan: -Protonix 40 mg daily -Monitor I's and O's -Consider erythromycin as outpatient. Medications: Zofran 4 mg IV when necessary Reglan 5mg IV when necessary, was not effective on recent test so can consider erythromycin if not effective. (9) Depression Status: Acute Plan: Concern for underlying depression. -pt refuses Celexa . can consider starting if pt agrees to this (10) Nutrition, metabolism, and development symptoms Status: Acute Plan: Diet: Diabetic diet, she is not eating well as she has no appetite. Drinking glucerna 3 times a day as supplement. Speech therapy consult. Electrolytes: WNL, continue to monitor DVT prophylaxis: Lovenox 40 SQ q24hrs. DC if ambulates more today. 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
[2016-11-14] MEDS ORDERED: FILGRASTIM 480 MCG/1.6 ML VIAL SQ ONE (10:30)
[2016-11-14] MEDS: MIDODRINE 5 MG TAB PO SCH ×2 (12:58→18:15)
--- NOTE | 2016-11-14 13:53 | PD.ONC.PN ---
Subjective Subjective Remarks Afebrile overnight. Pt asking if she will be going home today. She c/o her feet being swollen. Denies SOB or pain. Objective Data Date Time Temp Pulse Resp B/P Pulse Ox O2 Delivery O2 Flow Rate FiO2 11/14/16 12:14 98.2 90 16 120/84 99 11/14/16 08:07 98.1 87 16 133/78 99 142/79 93/56 11/14/16 04:47 98.7 84 20 114/62 91 11/13/16 23:50 98.1 82 20 114/70 98 11/13/16 20:04 84 11/13/16 19:41 98.0 90 20 133/76 99 11/13/16 15:42 98.8 87 18 131/78 98 11/14/16 11/14/16 11/14/16 07:00 15:00 23:00 Intake Total 300 ml Balance 300 ml Result Diagram: 11/14/16 0420 11/13/16 0734 Laboratory Results Laboratory Tests Test 11/13/16 11/14/16 18:20 04:20 Stool C. difficile Toxin (PCR) NEGATIVE Stl C. difficile Toxin PRESUMPTIVE Epiderm 027 NEGATIVE White Blood Count 1.1 TH/MM3 Red Blood Count 2.99 MIL/MM3 Hemoglobin 9.2 GM/DL Hematocrit 26.4 % Mean Corpuscular Volume 88.3 FL Mean Corpuscular Hemoglobin 30.8 PG Mean Corpuscular Hemoglobin 34.9 % Concent Red Cell Distribution Width 14.7 % Platelet Count 190 TH/MM3 Mean Platelet Volume 7.3 FL Neutrophils (%) (Auto) % Lymphocytes (%) (Auto) % Monocytes (%) (Auto) % Eosinophils (%) (Auto) % Basophils (%) (Auto) % Neutrophils # (Auto) TH/MM3 Lymphocytes # (Auto) TH/MM3 Monocytes # (Auto) TH/MM3 Eosinophils # (Auto) TH/MM3 Basophils # (Auto) TH/MM3 CBC Comment AUTO DIFF Differential Total Cells 100 Counted Neutrophils % (Manual) 24 % Lymphocytes % 50 % Monocytes % 21 % Eosinophils % 5 % Neutrophils # (Manual) 0.3 TH/MM3 Differential Comment FINAL DIFF MANUAL Platelet Estimate NORMAL Platelet Morphology Comment NORMAL Magnesium Level 1.7 MG/DL Administered Medications Medications (Trade) Dose Ordered Sig/Mattie Route PRN Reason Start Time Stop Time Status Last Admin Dose Admin Acetaminophen (Tylenol) 650 mg Q4H PRN PO Temp > 100.4 or PAIN 11/08/16 12:45 11/13/16 21:58 Zolpidem Tartrate (Ambien) 5 mg HS PRN PO INSOMNIA 11/08/16 12:45 11/13/16 21:58 IV Flush (NS Flush) 2 ml BID FLUSH 11/08/16 21:00 11/13/16 09:49 Enoxaparin Sodium (Lovenox Inj) 40 mg Q24H SQ 11/08/16 14:00 11/13/16 14:45 Gabapentin (Neurontin) 800 mg BID PO 11/08/16 21:00 11/14/16 08:35 Insulin Detemir 5 units 5 units HS SQ 11/08/16 21:00 11/13/16 21:58 Ceftriaxone Sodium/Sodium Chloride (Rocephin Inj/NS Inj) 100 ml @ 200 mls/hr Q24H IV 11/08/16 14:00 Hold 11/11/16 13:30 Pantoprazole Sodium (Protonix) 40 mg DAILY PO 11/09/16 09:00 11/14/16 08:35 Sodium Chloride (Sodium Chloride) 1 gm DAILY PO 11/10/16 12:00 11/14/16 08:35 Ciprofloxacin (Cipro) 500 mg Q12HR PO 11/13/16 11:00 11/16/16 10:59 11/14/16 08:35 Midodrine (Proamatine) 5 mg TID@07,12,17 PO 11/14/16 12:00 11/14/16 12:58 Objective Remarks GENERAL: Chronically ill appearing middle aged female sitting on side of bed in no distress. SKIN: Warm and dry. HEAD: Normocephalic. EYES: No scleral icterus. No injection or drainage. NECK: Supple, trachea midline. Discoloration from radiation noted to neck. CARDIOVASCULAR: +S1/S2. No murmur appreciated. RESPIRATORY: Lungs clear throughout. Breathing easy and unlabored. GASTROINTESTINAL: Abdomen soft, non-tender, nondistended. EXTREMITIES: 1+ edema to bilateral ankles. NEUROLOGICAL: No obvious focal deficit. Awake, alert, and oriented x3. 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 Neupogen SQ given today x 1 dose. -- Neutropenic precautions -- Concurrent chemo and XRT initial treatment plan. -- Chemo held for over a month. -- Cont XRT complete treatment. -- DANNY w/ Dr. Umanzor as an outpatient. (2) Hypomagnesemia Status: Acute Plan: -- Mag 1.7, no replacement today. -- IV replacement as needed. (3) Neutropenia due to irradiation Status: Acute Plan: 11/14/16: XRT on hold. Neupogen 480mcg given today x 1 dose. CBC in am. Neutropenia with WBC trending down since 10/28. No certain if drug effect- related to Ceftriaxone however ANC improve since stopping Ceftriaxone. Neutropenia unlikely related to chemo since last chemo > 4 weeks ago. Suspect neutropenia related to mucositis and toxicity of XRT. Continue supportive tx and prophylactic antibiotic and neutropenic precaution. Monitor for fever. Assessment 51 y/o woman with head and neck squamous cell carcinoma receiving XRT, chemo stopped due to toxicity. Heme onc consulted for persistent and progressive neutropenia. Plan 1. Labs in am include CBC, Mag level. 2. XRT on hold due to neutropenia. 3. Monitor for fever, culture if temp > 100.5 4. Supportive care. Attending Statement The exam, history, and the medical decision-making described in the above note were completed with the assistance of the mid-level provider. I reviewed and agree with the findings presented. I attest that I had a [id number] encounter with the patient on the same day, and personally performed and documented my assessment and findings in the medical record. Has neutropenia without fever. Her last chemotx was almost 2 months ago. The neutropenia likely due to XRT or medication induced. XRT is now on hold, will give neupogen x1 and monitor CBC. Mellisa Irene Nov 14, 2016 13:53 Donald Umanzor MD Nov 14, 2016 15:46
[2016-11-14] MEDS: ENOXAPARIN SODIUM 40 MG/0.4 ML SYRINGE SQ SCH (15:13)
[2016-11-14] MEDS: MAGNESIUM OXIDE 400 MG TAB PO SCH (20:24)
[2016-11-14] MEDS: INSULIN DETEMIR 100 UNITS/ML VIAL SQ SCH (21:06)
[2016-11-14] MEDS: ACETAMINOPHEN 325 MG TAB PO PRN (21:07)
[2016-11-14] MEDS: ZOLPIDEM TARTRATE 5 MG TAB PO PRN (21:07)
[2016-11-15 04:46] VITALS: BP 102/56; PULSE 82; RESP 20; TEMP 97.7; O2SAT 97
[2016-11-15 06:20] LABS: AUTOMATED NEUTROPHIL # 5.9 TH/MM3 (1.8-7.7); BASOPHIL % 0.4 % (0.0-2.0); EOSINOPHIL % 0.4 % (0.0-4.0); HEMATOCRIT 28.7 % (35.0-46.0); HEMO FLAGS DIFF FINAL; LYMPH % 7.7 % (9.0-44.0); LYMPHOCYTE # 0.5 TH/MM3 (1.0-4.8); MEAN CELL VOLUME 88.7 FL (80.0-100.0); MEAN CORPUSCULAR HEMOGLOBIN 31.4 PG (27.0-34.0); MEAN CORPUSCULAR HGB CONC 35.4 % (32.0-36.0); MONO % 6.8 % (0.0-8.0); NEUT % 84.7 % (16.0-70.0); PLATELET COUNT 215 TH/MM3 (150-450); RED BLOOD COUNT 3.24 MIL/MM3 (4.00-5.30); RED CELL DISTRIBUTION WIDTH 14.9 % (11.6-17.2)
[2016-11-15] MEDS: MIDODRINE 5 MG TAB PO SCH ×3 (06:27→17:42)
[2016-11-15] MEDS: INSULIN ASPART SUPPLEMENTAL SCALE SQ SCH ×4 (06:33→21:15)
[2016-11-15 06:40] LABS: BICARBONATE 33.1 MEQ/L (21.0-32.0); MAGNESIUM 1.6 MG/DL (1.5-2.5); POTASSIUM 4.3 MEQ/L (3.5-5.1)
[2016-11-15 07:42] VITALS: BP 130/71; PULSE 91; RESP 18; TEMP 98; O2SAT 100
--- NOTE | 2016-11-15 09:12 | PD.ONC.PN ---
Subjective Subjective Remarks Afebrile overnight. Patient resting comfortably. She is eager to go home. Objective Data Date Time Temp Pulse Resp B/P Pulse Ox O2 Delivery O2 Flow Rate FiO2 11/15/16 07:42 98.0 91 18 130/71 100 11/15/16 04:46 97.7 82 20 102/56 97 11/14/16 23:14 97.7 81 20 98/52 94 11/14/16 21:30 90 11/14/16 19:58 97.9 96 20 129/67 100 11/14/16 16:35 98.3 92 16 114/61 95 11/14/16 12:14 98.2 90 16 120/84 99 Result Diagram: 11/15/16 0550 11/15/16 0550 Laboratory Results Laboratory Tests Test 11/15/16 05:50 White Blood Count 7.0 TH/MM3 Red Blood Count 3.24 MIL/MM3 Hemoglobin 10.2 GM/DL Hematocrit 28.7 % Mean Corpuscular Volume 88.7 FL Mean Corpuscular Hemoglobin 31.4 PG Mean Corpuscular Hemoglobin 35.4 % Concent Red Cell Distribution Width 14.9 % Platelet Count 215 TH/MM3 Mean Platelet Volume 7.9 FL Neutrophils (%) (Auto) 84.7 % Lymphocytes (%) (Auto) 7.7 % Monocytes (%) (Auto) 6.8 % Eosinophils (%) (Auto) 0.4 % Basophils (%) (Auto) 0.4 % Neutrophils # (Auto) 5.9 TH/MM3 Lymphocytes # (Auto) 0.5 TH/MM3 Monocytes # (Auto) 0.5 TH/MM3 Eosinophils # (Auto) 0.0 TH/MM3 Basophils # (Auto) 0.0 TH/MM3 CBC Comment DIFF FINAL Differential Comment Sodium Level 138 MEQ/L Potassium Level 4.3 MEQ/L Chloride Level 101 MEQ/L Carbon Dioxide Level 33.1 MEQ/L Anion Gap 4 MEQ/L Blood Urea Nitrogen 8 MG/DL Creatinine 0.61 MG/DL Estimat Glomerular Filtration 104 ML/MIN Rate Random Glucose 208 MG/DL Calcium Level 9.5 MG/DL Magnesium Level 1.6 MG/DL Administered Medications Medications (Trade) Dose Ordered Sig/Mattie Route PRN Reason Start Time Stop Time Status Last Admin Dose Admin Acetaminophen (Tylenol) 650 mg Q4H PRN PO Temp > 100.4 or PAIN 1/3/17 12:45 11/14/16 21:07 Zolpidem Tartrate (Ambien) 5 mg HS PRN PO INSOMNIA 11/08/16 12:45 11/14/16 21:07 IV Flush (NS Flush) 2 ml BID FLUSH 11/08/16 21:00 11/14/16 21:00 Enoxaparin Sodium (Lovenox Inj) 40 mg Q24H SQ 11/08/16 14:00 11/14/16 15:13 Gabapentin (Neurontin) 800 mg BID PO 11/08/16 21:00 11/14/16 20:24 Insulin Detemir 5 units 5 units HS SQ 11/08/16 21:00 11/14/16 21:06 Ceftriaxone Sodium/Sodium Chloride (Rocephin Inj/NS Inj) 100 ml @ 200 mls/hr Q24H IV 11/08/16 14:00 Hold 11/11/16 13:30 Pantoprazole Sodium (Protonix) 40 mg DAILY PO 11/09/16 09:00 11/14/16 08:35 Sodium Chloride (Sodium Chloride) 1 gm DAILY PO 11/10/16 12:00 11/14/16 08:35 Ciprofloxacin (Cipro) 500 mg Q12HR PO 11/13/16 11:00 11/16/16 10:59 11/14/16 20:24 Midodrine (Proamatine) 5 mg TID@07,,17 PO 11/14/16 12:00 11/15/16 06:27 Magnesium Oxide (Mag-Ox) 400 mg Q12HR PO 11/14/16 21:00 11/14/16 20:24 Objective Remarks GENERAL: Middle aged female, sitting up in bed in [facility]. SKIN: Warm and dry. HEAD: Normocephalic. EYES: No injection or drainage. NECK: Supple, trachea midline. CARDIOVASCULAR: Regular rate and rhythm. RESPIRATORY: Breath sounds equal bilaterally. No accessory muscle use. GASTROINTESTINAL: Abdomen soft, non-tender, nondistended. EXTREMITIES: No cyanosis NEUROLOGICAL: awake and alert, normal speech. moving all extremities. 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 clear for d/c to SNF. ok to resume XRT 11/14/16: Radiation on hold for now due to neutropenia. Neupogen SQ given today x 1 dose. -- Neutropenic precautions -- Concurrent chemo and XRT initial treatment plan. -- Chemo held for over a month. -- Cont XRT complete treatment. -- DANNY w/ Dr. Umanzor as an outpatient. Assessment 51 y/o woman with head and neck squamous cell carcinoma receiving XRT, chemo stopped due to toxicity. Heme onc consulted for persistent and progressive neutropenia. Plan 1. clear for d/c 2. ok to resume XRT Attending Statement The exam, history, and the medical decision-making described in the above note were completed with the assistance of the mid-level provider. I reviewed and agree with the findings presented. I attest that I had a gtzz-[id number] encounter with the patient on the same day, and personally performed and documented my assessment and findings in the medical record. Feeling better. Neutropenia has resolved. Await d/c to SNF/rehab. Continue to f/u with for XRT. Frances Starkey Nov 15, 2016 09:12 Donald Umanzor MD Nov 15, 2016 16:00
[2016-11-15] MEDS: SODIUM CHLORIDE 0.9% FLUSH 5 ML FLUSH FLUSH SCH ×2 (09:32→21:13)
[2016-11-15] MEDS: PANTOPRAZOLE SOD 40 MG DELAYED RELEASE TAB PO SCH (09:32)
[2016-11-15] MEDS: CIPROFLOXACIN 500 MG TAB PO SCH ×2 (09:32→21:13)
[2016-11-15] MEDS: SODIUM CHLORIDE 1 GRAM TAB PO SCH (09:33)
[2016-11-15] MEDS: GABAPENTIN 400 MG CAP PO SCH ×2 (09:33→21:14)
--- NOTE | 2016-11-15 09:51 | HHI.FPPN ---
Subjective Remarks Patient seen this morning. No acute events overnight. Patient was did have orthostatic hypotension when nurse checked vitals yesterday. Midodrine has been started. Patient has no complaints at this time. Weakness improving, but still feels she would benefit from SNF for rehab. Spoke with [facility] in [place]. Auth for SNF pending. Objective Vitals Vital Signs Date Time Temp Pulse Resp B/P Pulse Ox O2 Delivery O2 Flow Rate FiO2 11/15/16 07:42 98.0 91 18 130/71 100 11/15/16 04:46 97.7 82 20 102/56 97 11/14/16 23:14 97.7 81 20 98/52 94 11/14/16 21:30 90 11/14/16 19:58 97.9 96 20 129/67 100 11/14/16 16:35 98.3 92 16 114/61 95 11/14/16 12:14 98.2 90 16 120/84 99 I/O 11/14/16 11/14/16 11/14/16 11/15/16 11/15/16 11/15/16 07:00 15:00 23:00 07:00 15:00 23:00 Intake Total 300 ml 900 ml Balance 300 ml 900 ml Intake Oral 700 ml IV Total 300 ml 200 ml # Voids 1 3 # Bowel Movements 0 Result Diagram: 11/15/16 0550 11/15/16 0550 Objective Remarks GENERAL: Sitting up on side of bed, no acute distress. SKIN: Warm and dry. No rashes. HEAD: Atraumatic. Normocephalic. CARDIOVASCULAR: Regular rate and rhythm. RESPIRATORY: No accessory muscle use. Clear to auscultation. Breath sounds equal bilaterally. GASTROINTESTINAL: Abdomen soft, non-tender, nondistended. MUSCULOSKELETAL: Extremities without clubbing or cyanosis. Lower extremities with 1+ edema of feet and ankles. Appears unchanged from previous exam. NEUROLOGICAL: Awake and alert. No obvious cranial nerve deficits. Motor grossly within normal limits. Normal speech. A/P Assessment and Plan 51-year-old female with a PMH significant for squamous cell carcinoma of oropharynx, DM, recurrent UTIs admitted for dehydration and orthostatic hypotension with weakness and recurrent falls. Discharge Planning Patient agreeable to HH with PT/OT versus rehab. CM working on auth for rehab in [place]. Plan for DC today after radiation therapy. Will discuss with Dr. Holloway. Problem List: (1) Orthostatic hypotension Status: Acute Plan: Orthostatic when checked by PT yesterday. Re-check orthostatic vitals today. -Midodrine 5mg TID started, continue at discharge -Salt tablets daily, continue on discharge (2) Dehydration Status: Acute Plan: Patient admits to poor oral intake at home. Patient has received 2 cases of supplemental nutrition shakes. -Encourage PO hydration. -Cardiology was consulted, no further recommendations. (3) Frequent falls Status: Chronic Plan: Improving. Likely combination of orthostatic hypotension, dehydration, anemia and hypomagnesemia. No recent chemotherapy. (4) Hypomagnesemia Status: Acute Plan: Improved. Could be contributing to above. -magnesium up to 1.6 today compared to 1.7 yesterday. -cont Mg Ox 400 mg BID (5) DM (diabetes mellitus), type 2, uncontrolled w/neurologic complication Status: Chronic Plan: Insulin-dependent. Fasting sugar in the 160s. Post-prandials in the 200s. -cont levemir 5 units HS -Low-dose insulin correctional scale. Requirement increasing with increased PO intake. 8 units ss given yesterday. -On gabapentin 800 mg twice a day (6) UTI (lower urinary tract infection) Status: Acute Plan: History of recurrent UTIs and urine culture in April 2016 grew ESBL UTI sensitive only to carbapenems, was also sensitive to Macrobid with ROSINA <32. -Urine culture 11/08/16 showing Klebsiella pneumonia, pansensitive -Rocephin 1 g IV daily 11/08/16-11/11/16 (received 4 days), currently holding 2/2 neutropenia. -Ciprofloxacin 500mg PO q12hr started 11/13/16, to complete 7 day course. Stop date 11/16/16. 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 Umanzor. On radiation treatment. Last chemotherapy was in September. No further plan for chemotherapy. Still getting radiation. -Radiation treatment to continue daily while inpatient. -Heme/onc consulted. Have alerted radiation center regarding neutropenia. -speech therapy recommends mechanical soft diet (8) Gastroparesis due to DM Status: Acute Plan: Gastric emptying study previous admission showed gastroparesis. EGD showed mild gastritis, esophagitis and duodenal erosions. Continue PPI and observation. Biopsy results show mild chronic gastritis, negative for Helicobacter pylori, negative for metaplasia or dysplasia. Plan: -Protonix 40 mg daily -Monitor I's and O's -Consider erythromycin as outpatient. Medications: Zofran 4 mg IV when necessary Reglan 5mg IV when necessary, was not effective on recent test so can consider erythromycin if not effective. (9) Depression Status: Acute Plan: Concern for underlying depression. -pt refuses Celexa . can consider starting if pt agrees to this (10) Nutrition, metabolism, and development symptoms Status: Acute Plan: Diet: Diabetic diet, she is not eating well as she has no appetite. Drinking glucerna 3 times a day as supplement. Speech therapy consult. Electrolytes: WNL, continue to monitor DVT prophylaxis: Lovenox 40 SQ q24hrs. DC if ambulates more today. GI prophylaxis: Protonix 40 mg daily Problem Qualifiers (1) DM (diabetes mellitus), type 2, uncontrolled w/neurologic complication: Qualified Code: E11.40 - Uncontrolled type 2 diabetes mellitus with diabetic neuropathy, unspecified terminal clerk insulin use status (2) Depression: Qualified Code: F32.9 - Depression, unspecified depression type Tavares Moreno MD R3 Nov 15, 2016 09:51
[2016-11-15] MEDS ORDERED: CIPR-9 PO (09:53)
[2016-11-15] MEDS ORDERED: MIDO5TAB PO (10:31)
[2016-11-15 12:45] VITALS: BP_SYST 110; BP_SYST 113; BP_SYST 87; BP_DIAS 50; BP_DIAS 64; PULSE 85; RESP 18; TEMP 98; O2SAT 100
[2016-11-15] MEDS: MAGNESIUM OXIDE 400 MG TAB PO SCH ×2 (14:02→21:13)
[2016-11-15] MEDS: ENOXAPARIN SODIUM 40 MG/0.4 ML SYRINGE SQ SCH (14:02)
[2016-11-15 14:23] VITALS: PULSE 70
[2016-11-15 19:55] VITALS: BP 126/63; PULSE 93; RESP 20; TEMP 98.9; O2SAT 100
[2016-11-15] MEDS: INSULIN DETEMIR 100 UNITS/ML VIAL SQ SCH (21:15)
[2016-11-15] MEDS: ZOLPIDEM TARTRATE 5 MG TAB PO PRN (21:45)
[2016-11-15] MEDS: ACETAMINOPHEN 325 MG TAB PO PRN (21:45)
[2016-11-16 00:02] VITALS: PULSE 83
[2016-11-16 00:31] VITALS: BP 117/62; PULSE 79; RESP 20; TEMP 98.6; O2SAT 93
[2016-11-16 05:07] VITALS: BP 114/62; PULSE 84; RESP 20; TEMP 97.4; O2SAT 94
[2016-11-16] MEDS: MIDODRINE 5 MG TAB PO SCH ×2 (06:25→12:01)
[2016-11-16] MEDS: INSULIN ASPART SUPPLEMENTAL SCALE SQ SCH ×2 (06:26→12:01)
[2016-11-16 08:05] VITALS: BP 124/76; PULSE 88; RESP 18; TEMP 97.8; O2SAT 99
--- NOTE | 2016-11-16 08:08 | PD.ONC.PN ---
Subjective Subjective Remarks No CP/SOB. No sore throat. Objective Data Date Time Temp Pulse Resp B/P Pulse Ox O2 Delivery O2 Flow Rate FiO2 11/16/16 05:07 97.4 84 20 114/62 94 11/16/16 00:31 98.6 79 20 117/62 93 11/16/16 00:02 83 11/15/16 19:55 98.9 93 20 126/63 100 11/15/16 14:23 70 11/15/16 12:45 98.0 85 18 113/64 100 110/64 87/50 Result Diagram: 11/15/16 0550 11/15/16 0550 Administered Medications Medications (Trade) Dose Ordered Sig/Mattie Route PRN Reason Start Time Stop Time Status Last Admin Dose Admin Acetaminophen (Tylenol) 650 mg Q4H PRN PO Temp > 100.4 or PAIN 11/08/16 12:45 11/15/16 21:45 Zolpidem Tartrate (Ambien) 5 mg HS PRN PO INSOMNIA 11/08/16 12:45 11/15/16 21:45 IV Flush (NS Flush) 2 ml BID FLUSH 11/08/16 21:00 11/15/16 21:13 Enoxaparin Sodium (Lovenox Inj) 40 mg Q24H SQ 11/08/16 14:00 11/15/16 14:02 Gabapentin (Neurontin) 800 mg BID PO 11/08/16 21:00 11/15/16 21:14 Insulin Detemir 5 units 5 units HS SQ 11/08/16 21:00 11/15/16 21:15 Ceftriaxone Sodium/Sodium Chloride (Rocephin Inj/NS Inj) 100 ml @ 200 mls/hr Q24H IV 11/08/16 14:00 Hold 11/11/16 13:30 Pantoprazole Sodium (Protonix) 40 mg DAILY PO 11/09/16 09:00 11/15/16 09:32 Sodium Chloride (Sodium Chloride) 1 gm DAILY PO 11/10/16 12:00 11/15/16 09:33 Ciprofloxacin (Cipro) 500 mg Q12HR PO 11/13/16 11:00 11/16/16 10:59 11/15/16 21:13 Midodrine (Proamatine) 5 mg TID@, PO 11/14/16 12:00 11/16/16 06:25 Magnesium Oxide (Mag-Ox) 400 mg Q12HR PO 11/14/16 21:00 11/15/16 21:13 Objective Remarks GENERAL: Well-nourished, well-developed patient. SKIN: Warm and dry. Hyperpigmentation at radiation site. HEAD: Normocephalic. EYES: No scleral icterus. No injection or drainage. NECK: Supple, trachea midline. No JVD or lymphadenopathy. LYMPHATIC: No adenopathy. CARDIOVASCULAR: Regular rate and rhythm without murmurs. RESPIRATORY: Breath sounds equal bilaterally. No accessory muscle use. GASTROINTESTINAL: Abdomen soft, non-tender, nondistended. EXTREMITIES: No cyanosis, or edema. MUSCULOSKELETAL: Adequate muscle tone. NEUROLOGICAL: No obvious focal deficit. Awake, alert, and oriented x3. PSYCHIATRIC: Appropriate mood and affect; insight and judgment normal. 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 clear for d/c to SNF. ok to resume XRT 11/14/16: Radiation on hold for now due to neutropenia. Neupogen SQ given today x 1 dose. -- Neutropenic precautions -- Concurrent chemo and XRT initial treatment plan. -- Chemo held for over a month. -- Cont XRT complete treatment. -- DANNY w/ Dr. Umanzor as an outpatient. Assessment 51 y/o woman with head and neck squamous cell carcinoma receiving XRT, chemo stopped due to toxicity. Heme onc consulted for persistent and progressive neutropenia. Plan 1. clear for d/c 2. patient to f/u with rad onc to continue XRT. Donald Umanzor MD Nov 16, 2016 08:08
--- NOTE | 2016-11-16 08:32 | HHI.FPPN ---
Subjective Remarks Patient seen this morning. No acute events overnight. Vitals WNL. Apparently she was not approved for SNF yesterday. On-call physician put in order for home health with PT/OT. Patient reports continued swelling in feet. No other complaints. No SOB or CP. (Tavraes Moreno MD R3) Objective Vitals Vital Signs Date Time Temp Pulse Resp B/P Pulse Ox O2 Delivery O2 Flow Rate FiO2 11/16/16 08:05 97.8 88 18 124/76 99 11/16/16 05:07 97.4 84 20 114/62 94 11/16/16 00:31 98.6 79 20 117/62 93 11/16/16 00:02 83 11/15/16 19:55 98.9 93 20 126/63 100 11/15/16 14:23 70 11/15/16 12:45 98.0 85 18 113/64 100 110/64 87/50 (Tavares Moreno MD R3) Result Diagram: 11/15/16 0550 11/15/16 0550 Objective Remarks GENERAL: Sitting up on side of bed, no acute distress. SKIN: Warm and dry. No rashes. HEAD: Atraumatic. Normocephalic. CARDIOVASCULAR: Regular rate and rhythm. RESPIRATORY: No accessory muscle use. Clear to auscultation. Breath sounds equal bilaterally. GASTROINTESTINAL: Abdomen soft, non-tender, nondistended. MUSCULOSKELETAL: Extremities without clubbing or cyanosis. Lower extremities with 1+ edema of feet and ankles. Appears unchanged from previous exam. NEUROLOGICAL: Awake and alert. No obvious cranial nerve deficits. Motor grossly within normal limits. Normal speech. (Tavares Moreno MD R3) A/P Assessment and Plan 51-year-old female with a PMH significant for squamous cell carcinoma of oropharynx, DM, recurrent UTIs admitted for dehydration and orthostatic hypotension with weakness and recurrent falls. Discharge Planning Plan for DC home today with HH PT/OT. Will discuss with Dr. Holloway. (Tavares Moreno MD R3) Attending Attestation Patient seen and examined with the resident team Case reviewed and discussed Agree with plan of care as discussed with me and documented in the resident note. Complaining of dark stools, bedside hemoccult neg. Hgb improved this am. Patient refusing to complete stool hemoccult test in hospital. Patient would like to go home. recommend outpatient follow-up if persistent. ( Keyana Holloway MD) Problem List: (1) Orthostatic hypotension Status: Acute Plan: Orthostatic when checked by PT yesterday. -Midodrine 5mg TID started, continue at discharge -Salt tablets daily, continue on discharge (2) Dehydration Status: Acute Plan: Patient admits to poor oral intake at home. Patient has received 2 cases of supplemental nutrition shakes. -Encourage PO hydration. -Cardiology was consulted, no further recommendations. (3) Frequent falls Status: Chronic Plan: Improving. Likely combination of orthostatic hypotension, dehydration, anemia and hypomagnesemia. No recent chemotherapy. (4) Hypomagnesemia Status: Acute Plan: Resolved. Could be contributing to above. -magnesium up to 1.6 yesterday -cont Mg Ox 400 mg BID (5) DM (diabetes mellitus), type 2, uncontrolled w/neurologic complication Status: Chronic Plan: Insulin-dependent. Fasting sugar in the 180s. Post-prandials in the 200s. -cont levemir 5 units HS -Low-dose insulin correctional scale. Requirement increasing with increased PO intake. 3 units ss given yesterday. -On gabapentin 800 mg twice a day (6) UTI (lower urinary tract infection) Status: Acute Plan: History of recurrent UTIs and urine culture in April 2016 grew ESBL UTI sensitive only to carbapenems, was also sensitive to Macrobid with ROSINA <32. -Urine culture 11/08/16 showing Klebsiella pneumonia, pansensitive -Rocephin 1 g IV daily 11/08/16-11/11/16 (received 4 days), currently holding 2/2 neutropenia. -Ciprofloxacin 500mg PO q12hr started 11/13/16, to complete 7 day course. Stop date 11/16/16. 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 Umanzor. On radiation treatment. Last chemotherapy was in September. No further plan for chemotherapy. Still getting radiation. -Radiation treatment to continue daily while inpatient. -Heme/onc consulted. Have alerted radiation center regarding neutropenia. -speech therapy recommends mechanical soft diet (8) Gastroparesis due to DM Status: Acute Plan: Gastric emptying study previous admission showed gastroparesis. EGD showed mild gastritis, esophagitis and duodenal erosions. Continue PPI and observation. Biopsy results show mild chronic gastritis, negative for Helicobacter pylori, negative for metaplasia or dysplasia. Plan: -Protonix 40 mg daily -Monitor I's and O's -Consider erythromycin as outpatient. Medications: Zofran 4 mg IV when necessary Reglan 5mg IV when necessary, was not effective on recent test so can consider erythromycin if not effective. (9) Depression Status: Acute Plan: Concern for underlying depression. -pt refuses Celexa . can consider starting if pt agrees to this (10) Nutrition, metabolism, and development symptoms Status: Acute Plan: Diet: Diabetic diet, appetite improving. Drinking glucerna 3 times a day as supplement. Speech therapy consult. Electrolytes: WNL, continue to monitor DVT prophylaxis: Lovenox 40 SQ q24hrs. DC if ambulates more today. GI prophylaxis: Protonix 40 mg daily (Tavares Moreno MD R3) Problem Qualifiers (1) DM (diabetes mellitus), type 2, uncontrolled w/neurologic complication: Qualified Code: E11.40 - Uncontrolled type 2 diabetes mellitus with diabetic neuropathy, unspecified mcc insulin use status (2) Depression: Qualified Code: F32.9 - Depression, unspecified depression type Tavares Moreno MD R3 Nov 16, 2016 08:32 Keyana Holloway MD Nov 16, 2016 13:24
[2016-11-16] MEDS: MAGNESIUM OXIDE 400 MG TAB PO SCH (12:01)
[2016-11-16] MEDS: PANTOPRAZOLE SOD 40 MG DELAYED RELEASE TAB PO SCH (12:01)
[2016-11-16] MEDS: SODIUM CHLORIDE 1 GRAM TAB PO SCH (12:01)
[2016-11-16] MEDS: GABAPENTIN 400 MG CAP PO SCH (12:01)
[2016-11-16] MEDS: CIPROFLOXACIN 500 MG TAB PO SCH (12:01)
[2016-11-16 12:07] VITALS: BP 155/88; PULSE 90; RESP 18; TEMP 98.2; O2SAT 99
[2016-11-16] MEDS: SODIUM CHLORIDE 0.9% FLUSH 5 ML FLUSH FLUSH SCH (12:16)
[2016-11-29] MEDS ORDERED: LEVEMIR SQ (14:33)
[2016-11-29] MEDS ORDERED: GLUCLIQ15 PO (14:33)
[2016-11-29] MEDS ORDERED: MIDO10TA PO (14:33)
[2016-11-29] MEDS ORDERED: SITA25 PO (14:33)
[2017-01-05] MEDS ORDERED: SODI1TAB PO (14:28)
[2017-01-05] MEDS ORDERED: SITA1TAB2 PO (14:43)
[2017-01-05] MEDS ORDERED: GLUCKIT15 (14:45)
[2017-01-05] MEDS ORDERED: INSU1MIS15 (14:45)
[2017-01-05] MEDS ORDERED: GLUCTES12 (14:45)
[2017-01-05] MEDS ORDERED: LANCETS1 MI1 (14:45)
--- NOTE | 2017-01-23 14:54 | HHI.DS ---
Discharge Summary Admission Date Nov 08, 2016 at 12:24 Discharge Date: Jan 14, 2017 Admitting Diagnosis (1) Orthostatic hypotension Diagnosis: Principal Plan: Orthostatic when checked by PT yesterday. -Midodrine 5mg TID started, continue at discharge -Salt tablets daily, continue on discharge (2) Dehydration Diagnosis: Secondary Plan: Patient admits to poor oral intake at home. Patient has received 2 cases of supplemental nutrition shakes. -Encourage PO hydration. -Cardiology was consulted, no further recommendations. (3) Frequent falls Diagnosis: Secondary Plan: Improving. Likely combination of orthostatic hypotension, dehydration, anemia and hypomagnesemia. No recent chemotherapy. (4) Hypomagnesemia Diagnosis: Secondary Plan: Resolved. Could be contributing to above. -magnesium up to 1.6 yesterday -cont Mg Ox 400 mg BID (5) DM (diabetes mellitus), type 2, uncontrolled w/neurologic complication Diagnosis: Secondary Plan: Insulin-dependent. Fasting sugar in the 180s. Post-prandials in the 200s. -cont levemir 5 units HS -Low-dose insulin correctional scale. Requirement increasing with increased PO intake. 3 units ss given yesterday. -On gabapentin 800 mg twice a day (6) UTI (lower urinary tract infection) Diagnosis: Secondary Plan: History of recurrent UTIs and urine culture in April 2016 grew ESBL UTI sensitive only to carbapenems, was also sensitive to Macrobid with ROSINA <32. -Urine culture 11/08/16 showing Klebsiella pneumonia, pansensitive -Rocephin 1 g IV daily 11/08/16-11/11/16 (received 4 days), currently holding 2/2 neutropenia. -Ciprofloxacin 500mg PO q12hr started 11/13/16, to complete 7 day course. Stop date 11/16/16. (7) Squamous cell carcinoma of oropharynx Diagnosis: Secondary Plan: Followed by Dr. Umanzor. On radiation treatment. Last chemotherapy was in September. No further plan for chemotherapy. Still getting radiation. -Radiation treatment to continue daily while inpatient. -Heme/onc consulted. Have alerted radiation center regarding neutropenia. -speech therapy recommends mechanical soft diet (8) Gastroparesis due to DM Diagnosis: Secondary Plan: Gastric emptying study previous admission showed gastroparesis. EGD showed mild gastritis, esophagitis and duodenal erosions. Continue PPI and observation. Biopsy results show mild chronic gastritis, negative for Helicobacter pylori, negative for metaplasia or dysplasia. Plan: -Protonix 40 mg daily -Monitor I's and O's -Consider erythromycin as outpatient. Medications: Zofran 4 mg IV when necessary Reglan 5mg IV when necessary, was not effective on recent test so can consider erythromycin if not effective. (9) Depression Diagnosis: Secondary Plan: Concern for underlying depression. -pt refuses Celexa . can consider starting if pt agrees to this (10) Nutrition, metabolism, and development symptoms Diagnosis: Secondary Plan: Diet: Diabetic diet, appetite improving. Drinking glucerna 3 times a day as supplement. Speech therapy consult. Electrolytes: WNL, continue to monitor DVT prophylaxis: Lovenox 40 SQ q24hrs. DC if ambulates more today. GI prophylaxis: Protonix 40 mg daily Brief History Ms Arechiga is a 51-year-old female with a history of oropharyngeal cancer, hepatitis C, who presented to ED with complaints of generalized weakness with near syncope and falls. The patient states she has been extremely weak and has fallen several times when getting up from a sitting position over the past 4 to 5 days at home. She states that her significant other who is at the bedside has been able to catch her and that she has not had any injuries from the falls except for some bruising to her right ribs. She admits that her fluid intake is poor at home and she only takes sips of water throughout the day. She has problems with tasting any of her food as she had chemo and is getting radiation to her throat. Her appetite and eating has been very poor. She denies chest pain , shortness of breath, abdominal pain, headache, or visual changes. She continues to have intermittent nausea; has Phenergan and Zofran at home which help. No other complaints or concerns. She has a history of fountain helper poorly controlled DM and gastroparesis. Her BPs have always been high in the past prior to her recent chemo and radiation. She has had difficulty in staying hydrated with chemo and presented multiple times with vomiting in the recent past and been off her antihypertensives for months. She has not had chemo since September and is not vomiting now. She has remained orthostatic this am despite 1 liter bolus and fluids all night. Her systolic BPs dropped from 143 to 93 from sitting to standing. She is symptomatic as well today. Have ordered an am cortisol but also concerned about possible autonomic dysfunction from her DM. PE at Discharge GENERAL: Sitting up on side of bed, no acute distress. SKIN: Warm and dry. No rashes. HEAD: Atraumatic. Normocephalic. CARDIOVASCULAR: Regular rate and rhythm. RESPIRATORY: No accessory muscle use. Clear to auscultation. Breath sounds equal bilaterally. GASTROINTESTINAL: Abdomen soft, non-tender, nondistended. MUSCULOSKELETAL: Extremities without clubbing or cyanosis. Lower extremities with 1+ edema of feet and ankles. Appears unchanged from previous exam. NEUROLOGICAL: Awake and alert. No obvious cranial nerve deficits. Motor grossly within normal limits. Normal speech. Hospital Course 51 year old patient with complicated medical history, including SCC receiving radiation therapy admitted after syncopal episode. UA suspicious for UTI on admission, and was started on rocephin. Severely orthostatic on admission. Was given IVF and started on midodrine. Discovered to be neutropenic on 11/12. Hemeonc was consulted. Recommended DC of rocephin. Peripheral smear ordered, which was unremarkable. Placed on neutropenic precautions. Chemotherapy had been held before admission. Hemeonc did recommend continuing with XRT. Eventually required neupogen during her course and neutropenia resolved. Orthostatic pressures improved throughout her course. PT assessed and recommended HH PT. Patient c/o sore throat. Speech assessed and recommended glucerna. Patient discharged home 11/16 with HH PT. They will need to f/u with PCP in 1 week. Pt Condition on Discharge: Fair Discharge Disposition: Discharge to SNF Discharge Instructions DIET: Follow Instructions for: Diabetic Diet Speech Therapy-Diet Recommends: Mechanical Soft Additional Diet Instructions: glucerna shakes three times per day with meals Activities you can perform: Regular-No Restrictions Tavares Moreno MD R3 Jan 23, 2017 14:54
[2017-01-26] MEDS ORDERED: EXENINJ SQ (10:55)
[2017-02-08] MEDS ORDERED: GABA400C5 PO (11:21)
[2017-02-22] MEDS ORDERED: ATOR20TA15 PO (11:12)
[2017-02-22] MEDS ORDERED: EXENINJ SQ (11:14)
[2017-02-22] MEDS ORDERED: SODI1TAB PO (11:16)
[2017-02-22] MEDS ORDERED: MIDO5TAB PO (11:16)
[2017-02-22] MEDS ORDERED: ONDA4TAB6 PO (11:17)
[2017-03-02] MEDS ORDERED: LEVA750T PO (14:35)
[2017-03-02] MEDS ORDERED: BACT800T5 PO (14:36)
[2017-03-21] MEDS ORDERED: GABA400C5 PO (10:02)
[2017-03-21] MEDS ORDERED: LACTPOW68 PO (10:11)
[2017-04-04] MEDS ORDERED: CLIN1CAP6 PO (11:34)
[2017-04-04] MEDS ORDERED: LEVO500T8 PO (11:34)
[2017-04-11] MEDS ORDERED: GLIP1TAB49 PO (11:05)
[2017-05-01] MEDS ORDERED: MIDO5TAB PO (10:08)
[2017-05-01] MEDS ORDERED: GABA400C5 PO (10:08)
[2017-05-01] MEDS ORDERED: SODI1TAB PO (10:09)
== END 2016-11-16 13:26 | disposition home or self-care (01) ==
LOC: NEPA 09:53 → NEDA 12:24 → NEPHCDU 15:46
PROVIDERS: ADMIT Family Medicine; ATTEND Family Medicine
DX: I95.1 Orthostatic hypotension (principal); C10.9 Malignant neoplasm of oropharynx, unspecified; C76.0 Malignant neoplasm of head, face and neck; E83.42 Hypomagnesemia; E78.5 Hyperlipidemia, unspecified; E11.43 Type 2 diabetes mellitus with diabetic autonomic (poly)neuropathy; B19.20 Unspecified viral hepatitis C without hepatic coma; K26.9 Duodenal ulcer, unspecified as acute or chronic, without hemorrhage or perforation; K31.84 Gastroparesis; R29.6 Repeated falls; K29.50 Unspecified chronic gastritis without bleeding; N39.0 Urinary tract infection, site not specified; B96.1 Klebsiella pneumoniae [K. pneumoniae] as the cause of diseases classified elsewhere; I48.91 Unspecified atrial fibrillation; I10 Essential (primary) hypertension; D64.9 Anemia, unspecified; F32.9 Major depressive disorder, single episode, unspecified; J45.909 Unspecified asthma, uncomplicated; K20.9 Esophagitis, unspecified; M19.90 Unspecified osteoarthritis, unspecified site; Z79.4 Long term (current) use of insulin; Z86.73 Personal history of transient ischemic attack (TIA), and cerebral infarction without residual deficits; Z87.442 Personal history of urinary calculi; Z92.21 Personal history of antineoplastic chemotherapy; Z95.0 Presence of cardiac pacemaker; Z89.421 Acquired absence of other right toe(s); Z87.891 Personal history of nicotine dependence; Z23 Encounter for immunization
CPT/HCPCS: 80048; 80053; 80307; 81001; 82533; 82607; 82948; 83615; 83735; 84100; 84425; 85007; 85025; 85027; 85044; 85060; 87077; 87086; 87186; 87493; 92526; 92610; 93005; 97110; 97116; 97162; 97530; 99285; G0378; G8987; G8988; G8996; G8997; G8998; J0696; J1442; J1642; J1650; J1815; J3475; J7030; Q2038; 77014; 77386; 90686

== ENCOUNTER 2016-11-20 20:00 | Observation (INO) | payer MEDICARE, OTHER ==
[~2016-11-20] VITALS: Ht 172.7 cm; Wt 81.8 kg
[~2016-11-20 20:00] MED LIST changes: -ADVA250A INH; -CEPH-460 PO; +CIPR-9 PO; -FISHCAP4 PO; +GLUCLIQ15 PO; -LEVEMIR SQ; -LISI2.5T3 PO; +MIDO5TAB PO; -REGL5TAB PO; -SITA25 PO; +SODI1TAB PO; +WALKER WHEELS/F1 MIS
[2016-11-20 20:23] VITALS: BP 159/77; PULSE 100; RESP 18; TEMP 99.9; O2SAT 95
--- NOTE | 2016-11-20 20:53 | RADRPT ---
EXAM DATE/TIME: 11/20/2016 20:44 [facility] COMPARISON: CT BRAIN W/O CONTRAST, October 16, 2016, 4:48. INDICATIONS : Syncope. RADIATION DOSE: 42.40 CTDIvol (mGy) MEDICAL HISTORY : Stroke. Hypertension. Hepatitis C.Oropharyngeal cancer SURGICAL HISTORY : Cholecystectomy. Appendectomy. ENCOUNTER: Initial ACUITY: 1 day PAIN SCALE: 0/10 LOCATION: cranial TECHNIQUE: Multiple contiguous axial images were obtained of the head. Using automated exposure control and adj ustment of the mA and/or kV according to patient size, radiation dose was kept as low as reasonably a chievable to obtain optimal diagnostic quality images. FINDINGS: CEREBRUM: The ventricles are normal for age. No evidence of midline shift, mass lesion, hemorrhage or acute in farction. No extra-axial fluid collections are seen. POSTERIOR FOSSA: The cerebellum and brainstem are intact. The 4th ventricle is midline. The cerebellopontine angle i s unremarkable. EXTRACRANIAL: The visualized portion of the orbits is intact. SKULL: The calvaria is intact. No evidence of skull fracture. CONCLUSION: Normal examination. Rc Cruz MD on November 20, 2016 at 20:50 Board Certified Radiologist. This report was verified electronically.
--- NOTE | 2016-11-20 21:12 | PD ---
HPI Chief Complaint: Syncope/Near-Syncope Time Seen by Provider: 21:07 Travel History International Travel<30 days: No Contact w/Intl Traveler<30days: No Traveled to known affect area: No History of Present Illness HPI 51-year-old female that presents to the ED for evaluation of syncopal episode. Per patient she got up at her home and last thing she remembers she was with her head on a back. She does not remember what actually happened. Per patient she's had syncopal episodes before. 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 Per patient she is able to keep fluids down. Per patient when she was seen here about 2 weeks ago she was admitted for similar and she was told that she needed to have someone to assist her as she does appear to have a history of orthostatic hypotension. Per patient she usually gets around with a wheelchair but she does have difficulty getting around. Per patient she did not hit anything else. Per patient although her pain is on the right side. She complains of right hip and knee pain as well as right rib pain. She does have multiple allergies to medication. She denies any chest pain or shortness of breath. She denies any numbness, tilling, weakness. Per patient she has no dizziness or lightheadedness at this time. Per patient other than the pain on the right side she feels back to normal. PFSH Past Medical History Hx Anticoagulant Therapy: Yes (ASA) Arthritis: No Asthma: Yes Atrial Fibrillation: Yes Autoimmune Disease: No Blood Disorders: No Anxiety: No Depression: No Heart Rhythm Problems: Yes (Pacemaker) Cancer: Yes (oropharyngeal cancer) Cardiovascular Problems: Yes (ORTHOSTATIC HYPOTENSION) High Cholesterol: No Chest Pain: Yes Congestive Heart Failure: No COPD: No Cerebrovascular Accident: Yes Diabetes: Yes (TYPE 2) Patient Takes Glucophage: No Diminished Hearing: No Endocrine: Yes Gastrointestinal Disorders: Yes GERD: No Glaucoma: No Genitourinary: Yes (FREQUENT UTIs) Headaches: Yes Hepatitis: Yes (HEP C) Hiatal Hernia: No Heparin Induced Thrombocytopen: No Hypertension: Yes Immune Disorder: No Implanted Vascular Access Dvce: Yes (PORT R CHEST, PACEMAKER L CHEST) Kidney Stones: Yes Musculoskeletal: Yes (BACK PAIN) Neurologic: Yes (CVA, no deficits ) Psychiatric: No Reproductive: Yes (GENITAL WARTS YEARS AGO) Respiratory: Yes (ASTHMA) Immunizations Current: Yes Migraines: Yes Myocardial Infarction: No Radiation Therapy: Yes (LAST DONE ON 11/18/16) Renal Failure: No Seizures: No Sickle Cell Disease: No Sleep Apnea: No Thyroid Disease: No Triglycerides - High: Yes Ulcer: No PNEUMOCCOCAL Vaccine (Year): 2 ?: Not Menopausal: Yes : 3 Para: 2 Miscarriage: 1 Past Surgical History Abdominal Surgery: Yes AICD: No Appendectomy: Yes Arteriovenous Shunt: No Body Medical Devices: PACEMAKER; LEG STENT; PORT PLACED Cardiac Surgery: Yes (L FEMORAL STENT, PACEMAKER) Section: Yes (x1) Cholecystectomy: Yes Ear Surgery: No Endocrine Surgery: No Eye Surgery: No Genitourinary Surgery: No Hysterectomy: No Insulin Pump: No Joint Replacement: No Neurologic Surgery: No Oral Surgery: Yes Pacemaker: Yes ([facility]) Thoracic Surgery: No Tonsillectomy: Yes Other Surgery: Yes (LEG STENTS, PORT PLACED- RIGHT 2015) Social History Alcohol Use: No Tobacco Use: Yes Substance Use: No Allergies-Medications (Allergen,Severity, Reaction): Coded Allergies: Compazine (Verified Allergy, Severe, 11/06/16) ANXIETY Ultram (Verified Allergy, Intermediate, Rash, 11/06/16) MRI PRECAUTION (Verified Adverse Reaction, Severe, PACEMAKER IS NOT A BIOTRONIK OR MEDTRONIC 06/15/16 KMD, 11/06/16) PACEMAKER IS NOT A BIOTRONIK OR MEDTRONIC CONDITIONAL PACEMAKER. CALLED BOTH COMPANIES TO CONFIRM. Percocet (Verified Adverse Reaction, Severe, Nausea/Vomiting, 11/06/16) *MDRO Multi-Drug Resistant Organism (Verified Adverse Reaction, Unknown, ESBL, MRSA, 11/06/16) E. coli ESBL (urine) - 2012, 2013, 2014, 04/2016 MRSA - 2003, 03/2015 (toe wound), 10/2015 (arm/back wound), (foot-08/17/16) Morphine (Verified Adverse Reaction, Unknown, Dizziness, 11/06/16) states doesn't want-does not like the way it makes me feel Reported Meds & Prescriptions Reported Meds & Active Scripts Active Midodrine 5 Mg Tab 5 Mg PO TID Cipro (Ciprofloxacin HCl) 500 Mg Tab 500 Mg PO Q12HR Glucerna Shake (Nutritional Supplements) 1 Liq Liq 1 Can PO TIDAC Walker with Front Wheels (Device) 1 Mis Mis 1 Ea .ROUTE DIRECTED Sodium Chloride 1 Gm Tab 1 Gm PO BID Phenergan (Promethazine HCl) 25 Mg Tab 25 Mg PO Q6H PRN Zofran (Ondansetron HCl) 8 Mg Tab 8 Mg PO Q8HR Reported Tylenol Pm Extra Strength (Diphenhydramine-Acetaminophen) 25-500 Mg Tab 1 Tab PO HS PRN Gabapentin 400 Mg Cap 800 Mg PO BID Review of Systems Except as stated in HPI: all other systems reviewed are Neg Physical Exam Narrative GENERAL: SKIN: Warm and dry. HEAD: Atraumatic. Normocephalic. EYES: Pupils equal and round 4 mm reactive to light and accommodation. No scleral icterus. No injection or drainage. ENT: No nasal bleeding or discharge. Mucous membranes pink and moist. Tongue is midline. no Uvula deviation. Patient does have deformities to the back of the throat that appear to be chronic from cancer. NECK: Trachea midline. No JVD. CARDIOVASCULAR: Regular rate and rhythm. No obvious murmurs, S3, S4. RESPIRATORY: No accessory muscle use. Clear to auscultation. Breath sounds equal bilaterally. GASTROINTESTINAL: Abdomen soft, non-tender, nondistended. Hepatic and splenic margins not palpable. MUSCULOSKELETAL: Extremities without clubbing, cyanosis, or edema. No obvious deformities. Full range of motion of the upper and lower extremities bilaterally. 2+ pulses bilaterally. No cervical, thoracic, lumbar spine tenderness to palpation. NEUROLOGICAL: Awake and alert. No obvious cranial nerve deficits. Motor grossly within normal limits. Five out of 5 muscle strength in the arms and legs. Normal speech. PSYCHIATRIC: Appropriate mood and affect; insight and judgment normal. Data Data Last Documented VS Vital Signs Date Time Temp Pulse Resp B/P Pulse Ox O2 Delivery O2 Flow Rate FiO2 11/20/16 22:29 97 18 162/88 96 Room Air 11/20/16 20:23 99.9 Orders Electrocardiogram (11/20/16 20:35) Complete Blood Count With Diff (11/20/16 20:35) Basic Metabolic Panel (Bmp) (11/20/16 20:35) Ckmb (Isoenzyme) Profile (11/20/16 20:35) Troponin I (11/20/16 20:35) Prothrombin Time / Inr (Pt) (11/20/16 20:35) Act Partial Throm Time (Ptt) (11/20/16 20:35) Urinalysis - C+S If Indicated (11/20/16 20:35) Magnesium (Mg) (11/20/16 20:35) Thyroid Stimulating Hormone (11/20/16 20:35) Chest, Single Ap (11/20/16 20:35) Ct Brain W/O Iv Contrast(Rout) (11/20/16 20:35) Iv Access Insert/Monitor (11/20/16 20:35) Ecg Monitoring (11/20/16 20:35) Oximetry (11/20/16 20:35) Hip, Uni(Ap&Lat) W Ap Pelvis (11/20/16 20:35) Knee, Complete (4vws) (11/20/16 20:35) Ice/Cold Pack (11/20/16 20:35) Orthostatic Vital Signs (11/20/16 21:12) Urine Culture (11/20/16 22:29) Labs Laboratory Tests Test 11/20/16 11/20/16 21:30 22:29 White Blood Count 4.6 TH/MM3 Red Blood Count 3.23 MIL/MM3 Hemoglobin 10.0 GM/DL Hematocrit 29.1 % Mean Corpuscular Volume 90.1 FL Mean Corpuscular Hemoglobin 31.0 PG Mean Corpuscular Hemoglobin 34.4 % Concent Red Cell Distribution Width 14.8 % Platelet Count 204 TH/MM3 Mean Platelet Volume 8.2 FL Neutrophils (%) (Auto) 67.2 % Lymphocytes (%) (Auto) 14.7 % Monocytes (%) (Auto) 16.5 % Eosinophils (%) (Auto) 1.1 % Basophils (%) (Auto) 0.5 % Neutrophils # (Auto) 3.1 TH/MM3 Lymphocytes # (Auto) 0.7 TH/MM3 Monocytes # (Auto) 0.8 TH/MM3 Eosinophils # (Auto) 0.0 TH/MM3 Basophils # (Auto) 0.0 TH/MM3 CBC Comment DIFF FINAL Differential Comment Prothrombin Time 10.1 SEC Prothromb Time International 0.9 RATIO Ratio Activated Partial 25.5 SEC Thromboplast Time Sodium Level 136 MEQ/L Potassium Level 3.7 MEQ/L Chloride Level 94 MEQ/L Carbon Dioxide Level 34.6 MEQ/L Anion Gap 7 MEQ/L Blood Urea Nitrogen 10 MG/DL Creatinine 0.63 MG/DL Estimat Glomerular Filtration 100 ML/MIN Rate Random Glucose 313 MG/DL Calcium Level 9.2 MG/DL Magnesium Level 1.5 MG/DL Total Creatine Kinase 28 U/L Troponin I LESS THAN 0.02 NG/ML Thyroid Stimulating Hormone 0.296 uIU/ML 3rd Gen Urine Color YELLOW Urine Turbidity HAZY Urine pH 8.0 Urine Specific [place] 1.018 Urine Protein NEG mg/dL Urine Glucose (UA) 1000 mg/dL Urine Ketones NEG mg/dL Urine Occult Blood NEG Urine Nitrite NEG Urine Bilirubin NEG Urine Urobilinogen LESS THAN 2.0 MG/DL Urine Leukocyte Esterase NEG Urine RBC 3 /hpf Urine WBC 8 /hpf Urine Squamous Epithelial 4 /hpf Cells Urine Renal Epithelial Cells <1 /hpf Urine Amorphous Sediment RARE Urine Hyaline Casts 1 /lpf Urine Mucus FEW /lpf Microscopic Urinalysis Comment CULTURE INDICATED MDM Medical Decision Making Medical Screen Exam Complete: Yes Emergency Medical Condition: Yes Medical Record Reviewed: Yes Interpretation(s) CBC & BMP Diagram 11/20/16 21:30 Last Impressions Knee X-Ray 11/20/162034 Signed Impressions: Service Date/Time: Sunday, November 20, 2016 21:00 - CONCLUSION: Mild degenerative change. Note acute bony injury to Rc Cruz MD Hip and Pelvis X-Ray 11/20/162034 Signed Impressions: Service Date/Time: Sunday, November 20, 2016 20:57 - CONCLUSION: No evidence of acute bony injury Rc Cruz MD Head CT 11/20/162034 Signed Impressions: Service Date/Time: Sunday, November 20, 2016 20:44 - CONCLUSION: Normal examination. Rc Cruz MD Chest X-Ray 11/20/162034 Signed Impressions: Service Date/Time: Sunday, November 20, 2016 21:10 - CONCLUSION: No acute disease. Rc Cruz MD Differential Diagnosis Syncope versus dehydration versus orthostatic hypotension versus kidney injury versus electrolyte abnormality versus head injury versus side effect from radiation versus UTI versus infection Narrative Course 51-year-old female that presents to the ED for evaluation of syncope. Patient was properly examined and was found to have signs and symptoms consistent with syncopal episode. Likely related to orthostatic hypotension. At this time I do recommend labs and imaging. Patient is agreeable with this. IV was started. Labs and imaging showed no sign of acute disease at this time. Patient does have an elevated sugars and otherwise unremarkable. Patient's orthostatics were positive with a 6 point drop from sitting to standing. Patient felt very dizzy and lightheaded. At this time I do not feel the patient is a safe discharge secondary to this alone. Case was discussed in my attending Dr. Pelletier who recommends admission for further evaluation and treatment of the orthostatic hypotension. This was discussed with the patient who agrees to admission. X-rays were essentially unremarkable. No sign of fractures. This is likely contusions. Case was discussed with the residents Dr. Paz who agrees admission to her attending Dr. Herrera. Diagnosis Primary Impression: Syncope Qualified Code: R55 - Syncope, unspecified syncope type Additional Impressions: Orthostatic hypotension Hyperglycemia due to type 2 diabetes mellitus Qualified Code: E11.65 - Type 2 diabetes mellitus with hyperglycemia, with long-term current use of insulin Multiple contusions Admitting Information Admitting Physician Requests: Observation Bulmaro Ibarra Nov 20, 2016 21:12
--- NOTE | 2016-11-20 21:38 | RADRPT ---
EXAM DATE/TIME: 11/20/2016 21:10 [facility] COMPARISON: CHEST SINGLE AP, October 04, 2016, 2:12. INDICATIONS : Pain from fall. MEDICAL HISTORY : Carcinoma, esophageal. SURGICAL HISTORY : Pacemaker. Port placement. ENCOUNTER: Initial ACUITY: 1 day PAIN SCORE: 5/10 LOCATION: Right chest FINDINGS: Pacemaker device is noted with control pack over the left chest. Right chest port is stable. Lungs ar e clear. No pneumothorax or hemothorax identified. Cardiomediastinal contours are stable and satisfac tory. CONCLUSION: No acute disease. Rc Cruz MD on November 20, 2016 at 21:36 Board Certified Radiologist. This report was verified electronically.
--- NOTE | 2016-11-20 21:56 | RADRPT ---
EXAM DATE/TIME: 11/20/2016 20:57 [facility] COMPARISON: No previous studies available for comparison. INDICATIONS : Pain from fall. MEDICAL HISTORY : None. SURGICAL HISTORY : None. ENCOUNTER: Initial ACUITY: 1 day PAIN SCORE: 5/10 LOCATION: Right pelvis and hip. FINDINGS: Hips are symmetric without definite fracture or dislocation. Mild degenerative changes present. The p feliz is intact without evidence of fracture or destructive change. There are phleboliths over the ce ntral pelvis and vascular calcifications noted. CONCLUSION: No evidence of acute bony injury Rc Cruz MD on November 20, 2016 at 21:54 Board Certified Radiologist. This report was verified electronically.
--- NOTE | 2016-11-20 21:57 | RADRPT ---
EXAM DATE/TIME: 11/20/2016 21:00 [facility] COMPARISON: No previous studies available for comparison. INDICATIONS : Pain from fall. MEDICAL HISTORY : None. SURGICAL HISTORY : None. ENCOUNTER: Initial ACUITY: 1 day PAIN SCORE: 5/10 LOCATION: Right knee. FINDINGS: There is no evidence of fracture or joint effusion. Mineralization and alignment are normal. There is mild degenerative change with tiny osteophytes noted. Vascular calcifications are present in the sof t tissues. CONCLUSION: Mild degenerative change. Note acute bony injury to Rc Cruz MD on November 20, 2016 at 21:55 Board Certified Radiologist. This report was verified electronically.
[2016-11-20 22:05] VITALS: O2SAT 93
[2016-11-20 22:08] LABS: AUTOMATED NEUTROPHIL # 3.1 TH/MM3 (1.8-7.7); BASOPHIL % 0.5 % (0.0-2.0); EOSINOPHIL % 1.1 % (0.0-4.0); HEMATOCRIT 29.1 % (35.0-46.0); HEMO FLAGS DIFF FINAL; LYMPH % 14.7 % (9.0-44.0); LYMPHOCYTE # 0.7 TH/MM3 (1.0-4.8); MEAN CELL VOLUME 90.1 FL (80.0-100.0); MEAN CORPUSCULAR HGB CONC 34.4 % (32.0-36.0); MONO % 16.5 % (0.0-8.0); NEUT % 67.2 % (16.0-70.0); PLATELET COUNT 204 TH/MM3 (150-450); RED BLOOD COUNT 3.23 MIL/MM3 (4.00-5.30); RED CELL DISTRIBUTION WIDTH 14.8 % (11.6-17.2); WHITE BLOOD COUNT 4.6 TH/MM3 (4.0-11.0)
[2016-11-20 22:12] VITALS: BP_SYST 110; BP_SYST 140; BP_SYST 175; BP_DIAS 59; BP_DIAS 66; BP_DIAS 77; RESP 18
[2016-11-20 22:19] LABS: APTT (PATIENT) 25.5 SEC (24.3-30.1); INTERNATIONAL NORMALIZED RATIO 0.9 RATIO; PROTHROMBIN TIME - PATIENT 10.1 SEC (9.8-11.6)
[2016-11-20 22:29] VITALS: BP 162/88; PULSE 97; RESP 18; O2SAT 96
[2016-11-20 22:34] LABS: ANION GAP 7 MEQ/L (5-15); BICARBONATE 34.6 MEQ/L (21.0-32.0); BLOOD UREA NITROGEN 10 MG/DL (7-18); CHLORIDE 94 MEQ/L (98-107); GLOMERULAR FILTRATION RATE 100 ML/MIN (>89); MAGNESIUM 1.5 MG/DL (1.5-2.5); POTASSIUM 3.7 MEQ/L (3.5-5.1); SODIUM (NA) 136 MEQ/L (136-145)
[2016-11-20 22:45] LABS: CREATINE KINASE 28 U/L (26-192)
[2016-11-20 22:58] LABS: BLOOD, URINE NEG (NEG); GLUCOSE,URINE 1000 mg/dL (NEG); HYALINE CAST, URINE 1 /lpf (RARE); KETONE, URINE NEG (NEG); MUCUS URINE FEW /lpf (OCC); NITRITE,URINE NEG (NEG); RENAL EPITHELIAL CELLS <1 /hpf; SQUAMOUS EPITHELIAL CELL URINE 4 /hpf (0-5); URINE COLOR YELLOW (YELLW/STRAW)
[2016-11-20 22:59] LABS: COMMENT (UR) CULTURE INDICATED; CULTURE IF INDICATED CULTURE INDICATED
--- NOTE | 2016-11-20 23:45 | HHI.HP ---
[facility] Service Family Medicine Primary Care Physician Janice Barker MD Admission Diagnosis syncope, severe orthostatic hypotension Diagnoses: International Travel<30 Days: No Contact w/Intl Traveler<30days: No Known Affected Area: No History of Present Illness Ms. Arechiga is a 51 y/o F with a PMHx of type 2 DM with gastroparesis and neuropathy, SCC of oropharynx undergoing radiation, hepatitis C, and orthostatic hypotension presents after a syncopal episode. She states that earlier this evening she was walking from her living room to her bedroom when she "passed out." During the syncopal episode she states that she "felt funny," and then fell to the floor hitting her head on her purse/bag and her R knee on the ground. She denies any seizure like activity, positional change, light headedness, palpitations, or weakness in her extremities prior her fall. She reports that she has fallen many times before, but this fall felt "very different." After the fall she regained consciousness immediately and felt pain in her R knee and lower back. She was hospitalized for a near syncopal episode from 11/08-11/20/16 and diagnosed with orthostatic hypotension. At that time she was started on Midodrine 5mg TID and reports that she has been compliant. Since her last hospitalization she has been having episodes of dark brown/black diarrhea daily up to 3 times per day. She denies any ABD pain or bright red blood per rectum. Of note, she recently completed a course of ciprofloxacin for UTI during her last hospitalization. She is a type 2 diabetic who has been compliant with her Levemir 5mg nightly, but has not been checking her BG daily since her last hospitalization. Otherwise she has no complaints and currently dines any fevers, chills, SOB, chest pain, NV, or calf tenderness. Review of Systems Constitutional: DENIES: Fever, Chills Endocrine: DENIES: Polyphagia Eyes: COMPLAINS OF: Photosensitivity Ears, nose, mouth, throat: DENIES: Hearing loss, Nasal discharge Respiratory: DENIES: Cough, Shortness of breath Cardiovascular: COMPLAINS OF: Chest pain, Syncope, DENIES: Palpitations Gastrointestinal: COMPLAINS OF: Diarrhea, DENIES: Abdominal pain, Nausea, Vomiting Genitourinary: DENIES: Dysuria Musculoskeletal: COMPLAINS OF: Joint pain (R knee pain post fall), Back pain Integumentary: DENIES: Rash Hematologic/lymphatic: DENIES: Lymphadenopathy Immunologic/allergic: DENIES: Urticaria Neurologic: DENIES: Headache Psychiatric: DENIES: Mood changes Past Family Social History Past Medical History Past Medical History Insulin-dependent DM diagnosed in 2006 (cannot tolerate metformin 2/2 diarrhea) 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) x 1, x 1 Age at menstruation: 13 Past Surgical History Surgical History Cholecystectomy Appendectomy Tonsillectomy Right 5th digit amputation Pacemaker placement Left femoral stent Reported Medications Reported Meds & Active Scripts Active Midodrine 5 Mg Tab 5 Mg PO TID Cipro (Ciprofloxacin HCl) 500 Mg Tab 500 Mg PO Q12HR Glucerna Shake (Nutritional Supplements) 1 Liq Liq 1 Can PO TIDAC Walker with Front Wheels (Device) 1 Mis Mis 1 Ea .ROUTE DIRECTED Sodium Chloride 1 Gm Tab 1 Gm PO BID Phenergan (Promethazine HCl) 25 Mg Tab 25 Mg PO Q6H PRN Zofran (Ondansetron HCl) 8 Mg Tab 8 Mg PO Q8HR Reported Tylenol Pm Extra Strength (Diphenhydramine-Acetaminophen) 25-500 Mg Tab 1 Tab PO HS PRN Gabapentin 400 Mg Cap 800 Mg PO BID Allergies: Coded Allergies: Compazine (Verified Allergy, Severe, 11/06/16) ANXIETY Ultram (Verified Allergy, Intermediate, Rash, 11/06/16) MRI PRECAUTION (Verified Adverse Reaction, Severe, PACEMAKER IS NOT A BIOTRONIK OR MEDTRONIC 06/15/16 KMD, 11/06/16) PACEMAKER IS NOT A BIOTRONIK OR MEDTRONIC CONDITIONAL PACEMAKER. CALLED BOTH COMPANIES TO CONFIRM. Percocet (Verified Adverse Reaction, Severe, Nausea/Vomiting, 11/06/16) *MDRO Multi-Drug Resistant Organism (Verified Adverse Reaction, Unknown, ESBL, MRSA, 11/06/16) E. coli ESBL (urine) - 2012, 2013, 2014, 04/2016 MRSA - 2004, 03/2015 (toe wound), 10/2015 (arm/back wound), (foot-08/17/16) Morphine (Verified Adverse Reaction, Unknown, Dizziness, 11/06/16) states doesn't want-does not like the way it makes me feel Family History Family History Mother: but unsure of medical history Father: , heart disease Sister: CAD Two healthy children (son and daughter) History of cancers in the family but unsure of who or what kind Social History Social History Lives with boyfriend and roommate Unemployed, disabled High school education EtOH: denies Tobacco: quit in 2003, smoked about 1/2 PPD x 14 years prior to quitting Illicit drugs: denies Health Maintenance Flu vaccine: October 2015 Pneumonia vaccine: unsure TDAP: cannot recall last Eye exam: 2014 Mammogram: August 2011 Pap: cannot recall Specialists Podiatry - Dr. Gutierrez English Instructor - Dr. Cohn Oncologist - Dr. Umanzor Physical Exam Vital Signs Vital Signs Date Time Temp Pulse Resp B/P Pulse Ox O2 Delivery O2 Flow Rate FiO2 11/20/16 22:29 97 18 162/88 96 Room Air 11/20/16 22:12 95 18 175/77 97 18 140/66 102 18 110/59 11/20/16 22:05 93 Room Air 11/20/16 20:23 99.9 100 18 159/77 95 Room Air 11/20/16 20:23 18 Room Air Physical Exam GENERAL: 51 y/o F in no acute distress lying in bed. SKIN: No rash. Warm and dry. Old, appropriately healing hematoma on anterior RLE inferior to the patella. Areas of hyperpigmented skin circumferentially around patient's neck and upper thorax. HEAD: Atraumatic. Normocephalic. No temporal or scalp tenderness. EYES: PERRLA with no injection. ENT: Nose without bleeding or drainage. Throat without erythema or exudate. Uvula midline. NECK: Trachea midline. No LAD. CARDIOVASCULAR: RRR with no MGR. RESPIRATORY: CTAB with no CRW. GASTROINTESTINAL: Abdomen soft, non-tender, nondistended with +BS. MUSCULOSKELETAL: Extremities without cyanosis or edema. No joint tenderness, effusion, or edema noted. No calf tenderness. RLE: No evidence of hematoma or penetrating trauma. Active ROM limited to 20 degrees of flexion/extension due to weakness. Passive ROM WNL without pain. No effusion. Anterior/posterior drawer, Urszula's, and valgus/varus testing negative, but all elicit minor discomfort. Neurovascularly intact throughout the LE with 2+ pulses. NEUROLOGICAL: Awake and alert. Cranial nerves II through XII intact. Motor and sensory grossly within normal limits. Five out of 5 muscle strength in all muscle groups. Normal speech. Laboratory Laboratory Tests Test 11/20/16 11/20/16 21:30 22:29 White Blood Count 4.6 Red Blood Count 3.23 Hemoglobin 10.0 Hematocrit 29.1 Mean Corpuscular Volume 90.1 Mean Corpuscular Hemoglobin 31.0 Mean Corpuscular Hemoglobin 34.4 Concent Red Cell Distribution Width 14.8 Platelet Count 204 Mean Platelet Volume 8.2 Neutrophils (%) (Auto) 67.2 Lymphocytes (%) (Auto) 14.7 Monocytes (%) (Auto) 16.5 Eosinophils (%) (Auto) 1.1 Basophils (%) (Auto) 0.5 Neutrophils # (Auto) 3.1 Lymphocytes # (Auto) 0.7 Monocytes # (Auto) 0.8 Eosinophils # (Auto) 0.0 Basophils # (Auto) 0.0 CBC Comment DIFF FINAL Differential Comment Prothrombin Time 10.1 Prothromb Time International 0.9 Ratio Activated Partial 25.5 Thromboplast Time Sodium Level 136 Potassium Level 3.7 Chloride Level 94 Carbon Dioxide Level 34.6 Anion Gap 7 Blood Urea Nitrogen 10 Creatinine 0.63 Estimat Glomerular Filtration 100 Rate Random Glucose 313 Calcium Level 9.2 Magnesium Level 1.5 Total Creatine Kinase 28 Troponin I LESS THAN 0.02 Thyroid Stimulating Hormone 0.296 3rd Gen Urine Color YELLOW Urine Turbidity HAZY Urine pH 8.0 Urine Specific [place]anquillity 1.018 Urine Protein NEG Urine Glucose (UA) 1000 Urine Ketones NEG Urine Occult Blood NEG Urine Nitrite NEG Urine Bilirubin NEG Urine Urobilinogen LESS THAN 2.0 Urine Leukocyte Esterase NEG Urine RBC 3 Urine WBC 8 Urine Squamous Epithelial 4 Cells Urine Renal Epithelial Cells <1 Urine Amorphous Sediment RARE Urine Hyaline Casts 1 Urine Mucus FEW Microscopic Urinalysis Comment CULTURE INDICATED Date/Time Procedure Status Source Growth 11/20/16 22:29 Urine Culture Received Urine Clean Catch Pending Result Diagram: 11/20/16212911/20/162129 Imaging Last 72 hours Impressions Knee X-Ray 11/20/162034 Signed Impressions: Service Date/Time: Sunday, November 20, 2016 21:00 - CONCLUSION: Mild degenerative change. Note acute bony injury to Rc Cruz MD Hip and Pelvis X-Ray 11/20/162034 Signed Impressions: Service Date/Time: Sunday, November 20, 2016 20:57 - CONCLUSION: No evidence of acute bony injury Rc Cruz MD Head CT 11/20/162034 Signed Impressions: Service Date/Time: Sunday, November 20, 2016 20:44 - CONCLUSION: Normal examination. Rc Cruz MD Chest X-Ray 11/20/162034 Signed Impressions: Service Date/Time: Sunday, November 20, 2016 21:10 - CONCLUSION: No acute disease. Rc Cruz MD Assessment and Plan Assessment and Plan Ms. Arechiga is a 51 y/o F with a PMHx of type 2 DM with gastroparesis and neuropathy, SCC of oropharynx undergoing radiation, hepatitis C, and orthostatic hypotension presents after a syncopal episode. Code Status FULL Discussed Condition With DW: JOAQUÍN Owens SDW: Dr. Ondina Paz Problem List: (1) Syncope Status: Acute Plan: Patient with a syncopal episode. DDx: Severe Orthostatic Hypotension vs. Arrhythmia vs. Dehydration vs. TIA vs. Electrolyte ABN Head CT: Normal examination Hips/pelvis x-ray: No evidence of acute bony injury Right knee x-ray: Mild degenerative change, no acute bony injury Chest x-ray: No acute disease CBC: WBC 4.6, H/H 10/29.1, platelets 204 BMP: Glucose 313 Troponin: Negative 1, repeat at 0330 EKG: Peaked T waves without acute ST elevation/depression compared to prior EKG. Repeat at 0330. TSH 0.296 Coags: PT 10.1, INR 0.9, PTT 25.5 UA: Glucose 1000, 8 WBC, culture indicated UC: Pending UDS: Negative Orthostatic vitals: Supine 175/77, sitting 140/66, standing 110/59 Neuro checks every 4 hours Carotid ultrasound: Pending EEG: Pending Echocardiogram: Pending Consult cardiology Consult case management Consult PT/OT (2) Orthostatic hypotension Status: Acute Plan: Patient with orthostatic hypotension Orthostatic vitals: Supine 175/77, sitting 140/66, standing 110/59 Please see plan as above Continue Midodrine 5 mg 3 times a day (3) Low back pain Status: Acute Plan: Patient with recent syncopal fall with lower back pain Tylenol 650 mg every 4 hours when necessary for pain 1-10 Continue to monitor (4) Right knee pain Status: Acute Plan: Patient with recent syncopal fall with right knee pain Exam: Within normal limits without signs of acute trauma Tylenol 650 mg every 4 hours when necessary for pain 1-10 Continue to monitor (5) Frequent falls Status: Chronic Plan: Patient with history of falls. Per chart review, SNF placement was not approved at last hospitalization. Patient was discharged with home health and PT/OT (6) Black stool Status: Acute Plan: Patient states that she has been having daily episodes of black diarrhea with as many as 3 episodes per day. DDx: GI bleed vs. Gastroenteritis vs. Diverticulitis vs. Hemorrhoids Bedside Hemoccult refused Stool specimen occult blood: Pending Please see plan as above Continue to monitor with CBC, CMP (7) Diarrhea Status: Acute Plan: Please see plan as above. (8) Squamous cell carcinoma of oropharynx Status: Chronic Plan: Followed by Dr. Umanzor. Last chemotherapy was in September. No further plan for chemotherapy. Currently receiving radiation M- with plans for completion next month. -Radiation treatment to continue daily while inpatient. -Heme/onc consulted. -Continue mechanical soft diet (9) DM (diabetes mellitus), type 2, uncontrolled w/neurologic complication Status: Chronic Plan: Insulin-dependent type 2 diabetic. Patient has not been checking her BG daily, but has been compliant with Levemir 5mg QHS. -Continue Levemir 5 units QHS -Low-dose SSI. -Gabapentin 800 mg twice a day (10) Gastroparesis due to DM Status: Acute Plan: Gastric emptying study previous admission showed gastroparesis. EGD showed mild gastritis, esophagitis and duodenal erosions. Continue PPI and observation. Biopsy results show mild chronic gastritis, negative for Helicobacter pylori, negative for metaplasia or dysplasia. -Protonix 40 mg daily -Continue Phenegran 25mg Q6H and Zofran 4mg Q8H -Monitor I's and O's (11) Hepatitis C Status: Chronic Plan: Patient with history of Hepatitis C AST/ALT: 10/29 Continue to monitor Tylenol use with AST/ALT (12) Nutrition, metabolism, and development symptoms Status: Acute Plan: Diet: Diabetic diet, mechanical soft Electrolytes: WNL, continue to monitor DVT prophylaxis: Defer at this time GI prophylaxis: Protonix 40 mg daily Sleep: Continue Tylenol PM (13) Medical contraindication to deep vein thrombosis (DVT) prophylaxis Status: Acute Plan: Patient currently endorses black diarrhea stools concerning for possible GI bleed. Team will defer DVT prophylaxis at this time as patient declined Hemoccult testing. Physician Certification 2 Midnight Certification Type: Admission for Inpatient Services Order for Inpatient Services The services are ordered in accordance with Medicare regulations or non- Medicare payer requirements, as applicable. In the case of services not specified as inpatient-only, they are appropriately provided as inpatient services in accordance with the 2-midnight benchmark. Estimated LOS (days): 3 3 days is the estimated time the patient will need to remain in the hospital, assuming treatment plan goals are met and no additional complications. Post-Hospital Plan: Home Problem Qualifiers (1) Syncope: Qualified Code: R55 - Syncope, unspecified syncope type Harish Yuen MD R1 Nov 20, 2016 23:45
[2016-11-21] VITALS (10 sets, daily range): BP systolic 75–180; BP diastolic 44–83; PULSE 85–96; RESP 18–20; TEMP 98–98.8; O2SAT 95–98
[2016-11-21] MEDS ORDERED: SODIUM CHLORIDE 0.9% FLUSH 5 ML FLUSH IV PRN ×2 (00:15)
[2016-11-21] MEDS ORDERED: PROMETHAZINE HCL 25 MG TAB PO PRN (00:30)
[2016-11-21] MEDS ORDERED: GLUCAGON 1 MG/ML VIAL OTHER PRN (00:30)
[2016-11-21] MEDS ORDERED: ACETAMINOPHEN 325 MG TAB PO PRN (00:30)
[2016-11-21] MEDS ORDERED: DEXTROSE 50% IN WATER 50 ML VIAL(D50) IV PUSH PRN (00:30)
[2016-11-21] MEDS ORDERED: DIPHENHYDRAMINE ACETAMINOPHEN PO PRN (00:30)
[2016-11-21] MEDS ORDERED: ONDANSETRON HCL 4 MG/2 ML VIAL IV PUSH PRN (00:30)
[2016-11-21 00:45] LABS: AMPHETAMINE, URINE NEG (NEG); COCAINE, URINE NEG (NEG)
[2016-11-21 00:49] LABS: BARBITURATES, URINE NEG (NEG)
[2016-11-21] MEDS ORDERED: hydrALAZINE HCL 20 MG/ML VIAL IV PRN (01:00)
[2016-11-21] MEDS ORDERED: cloNIDine HCL 0.1 MG TAB PO PRN (01:00)
[2016-11-21 01:01] LABS: ALT (GPT) 24 U/L (10-53); AST (GOT) 12 U/L (15-37)
[2016-11-21 01:20] LABS: MAGNESIUM 1.5 MG/DL (1.5-2.5)
[2016-11-21 01:31] LABS: FREE T3 2.61 PG/ML (2.18-3.98); FREE T4 1.07 NG/DL (0.76-1.46)
[2016-11-21 05:34] LABS: AUTOMATED NEUTROPHIL # 3.1 TH/MM3 (1.8-7.7); BASOPHIL % 0.5 % (0.0-2.0); EOSINOPHIL % 1.1 % (0.0-4.0); HEMATOCRIT 27.7 % (35.0-46.0); HEMO FLAGS DIFF FINAL; LYMPH % 13.6 % (9.0-44.0); LYMPHOCYTE # 0.6 TH/MM3 (1.0-4.8); MEAN CELL VOLUME 89.6 FL (80.0-100.0); MEAN CORPUSCULAR HEMOGLOBIN 30.7 PG (27.0-34.0); MEAN CORPUSCULAR HGB CONC 34.3 % (32.0-36.0); MONO % 13.2 % (0.0-8.0); NEUT % 71.6 % (16.0-70.0); PLATELET COUNT 188 TH/MM3 (150-450); RED BLOOD COUNT 3.09 MIL/MM3 (4.00-5.30); WHITE BLOOD COUNT 4.4 TH/MM3 (4.0-11.0)
[2016-11-21 05:36] LABS: ANION GAP 7 MEQ/L (5-15); AST (GOT) 9 U/L (15-37); BICARBONATE 33.3 MEQ/L (21.0-32.0); BLOOD UREA NITROGEN 9 MG/DL (7-18); CHLORIDE 97 MEQ/L (98-107); GLOMERULAR FILTRATION RATE 104 ML/MIN (>89); POTASSIUM 3.8 MEQ/L (3.5-5.1); SODIUM (NA) 137 MEQ/L (136-145)
[2016-11-21 05:40] LABS: ALKALINE PHOSPHATASE 92 U/L (45-117); ALT (GPT) 21 U/L (10-53); TOTAL BILIRUBIN ADULT 0.3 MG/DL (0.2-1.0)
[2016-11-21] MEDS ORDERED: NON-FORMULARY DRUG (Ondansetron (Zofran) 8 MG) PO SCH (06:00)
[2016-11-21] MEDS: INSULIN ASPART SUPPLEMENTAL SCALE SQ SCH ×4 (06:18→19:54)
[2016-11-21] MEDS ORDERED: NUTRITIONAL SUPPLEMENTS PO SCH (08:00)
[2016-11-21] MEDS ORDERED: MIDODRINE 5 MG TAB PO SCH (09:00)
[2016-11-21] MEDS ORDERED: SODIUM CHLORIDE 0.9% FLUSH 5 ML FLUSH IV SCH (09:00)
[2016-11-21 09:20] LABS: MAGNESIUM 1.5 MG/DL (1.5-2.5)
--- NOTE | 2016-11-21 09:22 | HHI.HP ---
[facility] Service Family Medicine Primary Care Physician Janice Barker MD Admission Diagnosis syncope, severe orthostatic hypotension Diagnoses: (1) Syncope Diagnosis: Principal (2) Orthostatic hypotension Diagnosis: Principal (3) Low back pain Diagnosis: Principal (4) Right knee pain Diagnosis: Principal (5) Frequent falls Diagnosis: Principal (6) Black stool Diagnosis: Principal (7) Diarrhea Diagnosis: Principal (8) Squamous cell carcinoma of oropharynx Diagnosis: Principal (9) DM (diabetes mellitus), type 2, uncontrolled w/neurologic complication Diagnosis: Principal (10) Gastroparesis due to DM Diagnosis: Principal (11) Hepatitis C Diagnosis: Principal (12) Nutrition, metabolism, and development symptoms Diagnosis: Principal (13) Medical contraindication to deep vein thrombosis (DVT) prophylaxis Diagnosis: Principal International Travel<30 Days: No Contact w/Intl Traveler<30days: No Known Affected Area: No History of Present Illness Ms. Arechiga is a 51 y/o F with a PMHx of type 2 DM with gastroparesis and neuropathy, SCC of oropharynx undergoing radiation, hepatitis C, and orthostatic hypotension who presented after a syncopal episode. She states that she was walking from her living room to her bedroom when she "passed out." Normally, she has her boyfriend help her whenever she gets up from her wheelchair. She had just come home from [place]oodoo and her boyfriend had asked her to wait but she just got up and started walking on her own when she had the syncope. During the syncopal episode she states that she "felt funny," and then fell to the floor hitting her head on her purse/bag and her R knee on the ground. She denies any seizure like activity, positional change, light headedness, palpitations, or weakness in her extremities prior her fall. She reports that she has fallen many times before, but this fall felt "very different." After the fall she regained consciousness immediately and felt pain in her R knee and lower back but fortunately did not break any bones. She was hospitalized for a near syncopal episode from 11/08-11/20/16 and diagnosed with orthostatic hypotension. At that time she was started on Midodrine 5mg TID and reports that she has been compliant and it helps her. However, she still needs to get up slowly and almost always has her boyfriend right there behind her when she stands up. Since her last hospitalization she has been having episodes of dark brown/ black diarrhea daily up to 3 times per day. She denies any ABD pain or bright red blood per rectum. Of note, she recently completed a course of ciprofloxacin for UTI during her last hospitalization. She is a type 2 diabetic who has been compliant with her Levemir 5mg nightly, but has not been checking her BG daily since her last hospitalization. Otherwise she has no complaints and currently denies any fevers, chills, SOB, chest pain, NV, or calf tenderness. She reports taking some po supplements given her by her radiation Dr and is "drinking as much as she can." She is done with chemo and does not have any more nausea. She has the as her last day of radiation for her throat and is eager to be done. Review of Systems Constitutional: COMPLAINS OF: Dizziness, Change in appetite, DENIES: Weight gain Endocrine: DENIES: Polydipsia, Polyphagia Eyes: DENIES: Eye pain, Vision loss Ears, nose, mouth, throat: DENIES: Hearing loss, Nasal discharge, Running Nose Respiratory: DENIES: Apneas, Shortness of breath Cardiovascular: COMPLAINS OF: Syncope, DENIES: Chest pain, Palpitations, Lower Extremity Edema Gastrointestinal: COMPLAINS OF: Anorexia, DENIES: Abdominal pain, Bloody stools, Constipation Genitourinary: DENIES: Urinary frequency, Hematuria Musculoskeletal: COMPLAINS OF: Joint pain, Muscle aches, Stiffness, Back pain Integumentary: COMPLAINS OF: Abnormal pigmentation (neck where getting radiation), DENIES: Rash Hematologic/lymphatic: DENIES: Lymphadenopathy Neurologic: COMPLAINS OF: Abnormal gait, DENIES: Localized weakness, Seizures , Speech Problems, Tremor Psychiatric: DENIES: Mood changes Past Family Social History Past Medical History Past Medical History Insulin-dependent DM diagnosed in 2006 (cannot tolerate metformin 2/2 diarrhea) 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 CALLED BOTH COMPANIES TO CONFIRM. Percocet (Verified Adverse Reaction, Severe, Nausea/Vomiting, 11/06/16) *MDRO Multi-Drug Resistant Organism (Verified Adverse Reaction, Unknown, ESBL, MRSA, 11/06/16) E. coli ESBL (urine) - 2012, 2013, 2014, 04/2016 MRSA - 2003, 03/2015 (toe wound), 10/2015 (arm/back wound), (foot-08/17/16) Morphine (Verified Adverse Reaction, Unknown, Dizziness, 11/06/16) states doesn't want-does not like the way it makes me feel Family History Family History Mother: but unsure of medical history Father: , heart disease Sister: CAD Two healthy children (son and daughter) History of cancers in the family but unsure of who or what kind Social History Social History Lives with boyfriend and roommate Unemployed, disabled High school education EtOH: denies Tobacco: quit in 2003, smoked about 1/2 PPD x 14 years prior to quitting Illicit drugs: denies Health Maintenance Flu vaccine: October 2015 Pneumonia vaccine: unsure TDAP: cannot recall last Eye exam: 2014 Mammogram: August 2011 Pap: cannot recall Specialists Podiatry - Dr. Gutierrez Pipeline Executive - Dr. Cohn Oncologist - Dr. Umanzor Physical Exam Vital Signs Vital Signs Date Time Temp Pulse Resp B/P Pulse Ox O2 Delivery O2 Flow Rate FiO2 11/21/16 07:30 97 21 11/21/16 04:44 97 21 11/21/16 04:26 20 11/21/16 03:33 98.0 90 20 104/50 98 11/21/16 02:08 98.2 93 20 123/73 96 122/67 75/47 11/21/16 00:22 96 18 145/78 97 11/20/16 22:29 97 18 162/88 96 Room Air 11/20/16 22:12 95 18 175/77 97 18 140/66 102 18 110/59 11/20/16 22:05 93 Room Air 11/20/16 20:23 99.9 100 18 159/77 95 Room Air 11/20/16 20:23 18 Room Air Physical Exam GENERAL: 51 y/o F in no acute distress lying in bed. talkative and more upbeat today looking forward to the end of her cancer treatments SKIN: No rash. Warm and dry. Old, appropriately healing hematoma on anterior RLE inferior to the patella. Areas of hyperpigmented skin circumferentially around patient's neck and upper thorax. HEAD: Atraumatic. Normocephalic. No temporal or scalp tenderness. EYES: PERRLA with no injection. ENT: Nose without bleeding or drainage. Throat without erythema or exudate. Uvula midline. NECK: Trachea midline. No LAD. CARDIOVASCULAR: RRR with no MGR. RESPIRATORY: CTAB with no CRW. GASTROINTESTINAL: Abdomen soft, non-tender, nondistended with +BS. MUSCULOSKELETAL: Extremities without cyanosis or edema. No joint tenderness, effusion, or edema noted. No calf tenderness. RLE: No evidence of hematoma or penetrating trauma. Active ROM limited to 20 degrees of flexion/extension due to weakness. Passive ROM WNL without pain. No effusion. Anterior/posterior drawer, Urszula's, and valgus/varus testing negative, but all elicit minor discomfort. Neurovascularly intact throughout the LE with 2+ pulses. NEUROLOGICAL: Awake and alert. Cranial nerves II through XII intact. Motor and sensory grossly within normal limits. Five out of 5 muscle strength in all muscle groups. Normal speech. Laboratory Laboratory Tests Test 11/20/16 11/20/16 11/21/16 11/21/16 21:30 22:29 01:20 04:30 White Blood Count 4.6 4.4 Red Blood Count 3.23 3.09 Hemoglobin 10.0 9.5 Hematocrit 29.1 27.7 Mean Corpuscular Volume 90.1 89.6 Mean Corpuscular Hemoglobin 31.0 30.7 Mean Corpuscular Hemoglobin 34.4 34.3 Concent Red Cell Distribution Width 14.8 15.0 Platelet Count 204 188 Mean Platelet Volume 8.2 8.0 Neutrophils (%) (Auto) 67.2 71.6 Lymphocytes (%) (Auto) 14.7 13.6 Monocytes (%) (Auto) 16.5 13.2 Eosinophils (%) (Auto) 1.1 1.1 Basophils (%) (Auto) 0.5 0.5 Neutrophils # (Auto) 3.1 3.1 Lymphocytes # (Auto) 0.7 0.6 Monocytes # (Auto) 0.8 0.6 Eosinophils # (Auto) 0.0 0.0 Basophils # (Auto) 0.0 0.0 CBC Comment DIFF FINAL DIFF FINAL Differential Comment Prothrombin Time 10.1 Prothromb Time International 0.9 Ratio Activated Partial 25.5 Thromboplast Time Sodium Level 136 137 Potassium Level 3.7 3.8 Chloride Level 94 97 Carbon Dioxide Level 34.6 33.3 Anion Gap 7 7 Blood Urea Nitrogen 10 9 Creatinine 0.63 0.61 Estimat Glomerular Filtration 100 104 Rate Random Glucose 313 266 Calcium Level 9.2 9.3 Magnesium Level 1.5 1.5 Total Creatine Kinase 28 Troponin I LESS THAN 0.02 LESS THAN 0.02 Thyroid Stimulating Hormone 0.296 3rd Gen Aspartate Amino Transf 12 9 (AST/SGOT) Alanine Aminotransferase 24 21 (ALT/SGPT) Free Thyroxine 1.07 Free Triiodothyronine (T3) 2.61 pg/dL Urine Color YELLOW Urine Turbidity HAZY Urine pH 8.0 Urine Specific [place] 1.018 Urine Protein NEG Urine Glucose (UA) 1000 Urine Ketones NEG Urine Occult Blood NEG Urine Nitrite NEG Urine Bilirubin NEG Urine Urobilinogen LESS THAN 2.0 Urine Leukocyte Esterase NEG Urine RBC 3 Urine WBC 8 Urine Squamous Epithelial 4 Cells Urine Renal Epithelial Cells <1 Urine Amorphous Sediment RARE Urine Hyaline Casts 1 Urine Mucus FEW Microscopic Urinalysis Comment CULTURE INDICATED Urine Opiates Screen NEG Urine Barbiturates Screen NEG Urine Amphetamines Screen NEG Urine Benzodiazepines Screen NEG Urine Cocaine Screen NEG Urine Cannabinoids Screen NEG Ethyl Alcohol Level LESS THAN 3 Phosphorus Level 3.3 Total Bilirubin 0.3 Alkaline Phosphatase 92 Total Protein 6.5 Albumin 2.9 Date/Time Procedure Status Source Growth 11/20/16 22:29 Urine Culture Received Urine Clean Catch Pending Result Diagram: 11/21/1642911/21/16429 Imaging Last 72 hours Impressions Knee X-Ray 11/20/162034 Signed Impressions: Service Date/Time: Sunday, November 20, 2016 21:00 - CONCLUSION: Mild degenerative change. Note acute bony injury to Rc Cruz MD Hip and Pelvis X-Ray 11/20/162034 Signed Impressions: Service Date/Time: Sunday, November 20, 2016 20:57 - CONCLUSION: No evidence of acute bony injury Rc Cruz MD Head CT 11/20/162034 Signed Impressions: Service Date/Time: Sunday, November 20, 2016 20:44 - CONCLUSION: Normal examination. Rc Cruz MD Chest X-Ray 11/20/162034 Signed Impressions: Service Date/Time: Sunday, November 20, 2016 21:10 - CONCLUSION: No acute disease. Rc Cruz MD Assessment and Plan Assessment and Plan Ms. Arechiga is a 51 y/o F with a PMHx of type 2 DM with gastroparesis and neuropathy, SCC of oropharynx undergoing radiation, hepatitis C, and orthostatic hypotension presents after a syncopal episode. She was again found to be profoundly orthostatic on measurement of 70s over 40s when standing. Her history is also consistent with orthostasis. Problem List: (1) Syncope Status: Acute Plan: Patient with a syncopal episode. Workup ordered on admission and pending as below. However, her history and exam are consistent with her orthostatic hypotension as being the cause of her syncope and near syncopal episodes. She needs to learn how to get up very slowly as she tends to just "jump up" and wants to be more independent. Encouraged her to always let her boyfriend help her. Her midodrine was increased and can see what cardiology recommends. Hopefully, once she is done with her cancer treatments her BPs will not be so low. Will investigate giving iv fluids on a regular basis as an outpt as that should help her get through her last weeks of treatment as the radiation effects her po intake. Oncology can hopefully help out with that. Will need to watch her BPs with Midodrine as they could go to high but if she continues falling, she can break a bone or have worse problems. will give iv fluids today as her U/A shows some dehydration DDx: Severe Orthostatic Hypotension vs. Arrhythmia (less likely) vs. Dehydration vs. TIA (do not believe she had this) vs. Electrolyte ABN Head CT: Normal examination Hips/pelvis x-ray: No evidence of acute bony injury Right knee x-ray: Mild degenerative change, no acute bony injury Chest x-ray: No acute disease CBC: WBC 4.6, H/H 10/29.1, platelets 204 BMP: Glucose 313 Troponin: Negative 1, repeat at 0330 EKG: Peaked T waves without acute ST elevation/depression compared to prior EKG. Repeat at 0330. TSH 0.296 Coags: PT 10.1, INR 0.9, PTT 25.5 UA: Glucose 1000, 8 WBC, culture indicated UC: Pending UDS: Negative Orthostatic vitals: Supine 175/77, sitting 140/66, standing 110/59 Neuro checks every 4 hours Carotid ultrasound: Pending EEG: Pending Echocardiogram: Pending Consult cardiology Consult case management Consult PT/OT (2) Orthostatic hypotension Status: Acute Plan: Patient with orthostatic hypotension Orthostatic vitals: Supine 175/77, sitting 140/66, standing 110/59 overnight her standing BPs were 70s over 40s. plus she is symptomatically orthostatic Please see plan as above Continue Midodrine 10 mg 3 times a day (3) Low back pain Status: Acute Plan: Patient with recent syncopal fall with lower back pain Tylenol 650 mg every 4 hours when necessary for pain 1-10 Continue to monitor (4) Right knee pain Status: Acute Plan: Patient with recent syncopal fall with right knee pain Exam: Within normal limits without signs of acute trauma Tylenol 650 mg every 4 hours when necessary for pain 1-10 Continue to monitor (5) Frequent falls Status: Chronic Plan: Patient with history of falls. Per chart review, SNF placement was not approved at last hospitalization. Patient was discharged with home health and PT/OT (6) Black stool Status: Acute Plan: Patient states that she has been having daily episodes of black diarrhea with as many as 3 episodes per day. DDx: GI bleed vs. Gastroenteritis vs. Diverticulitis vs. Hemorrhoids Bedside Hemoccult refused Stool specimen occult blood: Pending Please see plan as above Continue to monitor with CBC, CMP (7) Diarrhea Status: Acute Plan: Please see plan as above. (8) Squamous cell carcinoma of oropharynx Status: Chronic Plan: Followed by Dr. Umanzor. Last chemotherapy was in September. No further plan for chemotherapy. Currently receiving radiation - with plans for completion the -Radiation treatment to continue daily while inpatient. -Heme/onc consulted. -Continue mechanical soft diet (9) DM (diabetes mellitus), type 2, uncontrolled w/neurologic complication Status: Chronic Plan: Insulin-dependent type 2 diabetic. Patient has not been checking her BG daily, but has been compliant with Levemir 5mg QHS. -Continue Levemir 5 units QHS -Low-dose SSI. -Gabapentin 800 mg twice a day (10) Gastroparesis due to DM Status: Acute Plan: Gastric emptying study previous admission showed gastroparesis. EGD showed mild gastritis, esophagitis and duodenal erosions. Continue PPI and observation. Biopsy results show mild chronic gastritis, negative for Helicobacter pylori, negative for metaplasia or dysplasia. -Protonix 40 mg daily -Continue Phenegran 25mg Q6H and Zofran 4mg Q8H prn -Monitor I's and O's (11) Hepatitis C Status: Chronic Plan: Patient with history of Hepatitis C AST/ALT: 10/29 Continue to monitor Tylenol use with AST/ALT liver tests are good and may have been effected in the past by Chemo (12) Nutrition, metabolism, and development symptoms Status: Acute Plan: Diet: Diabetic diet, mechanical soft Electrolytes: WNL, continue to monitor DVT prophylaxis: Defer at this time GI prophylaxis: Protonix 40 mg daily Sleep: Continue Tylenol PM (13) Medical contraindication to deep vein thrombosis (DVT) prophylaxis Status: Acute Plan: Patient currently endorses black diarrhea stools concerning for possible GI bleed. Team will defer DVT prophylaxis at this time as patient declined Hemoccult testing. Problem Qualifiers (1) Syncope: Qualified Code: R55 - Syncope, unspecified syncope type (2) Low back pain: Qualified Code: M54.5 - Acute low back pain without sciatica, unspecified back pain laterality (3) Right knee pain: Qualified Code: M25.561 - Acute pain of right knee (4) DM (diabetes mellitus), type 2, uncontrolled w/neurologic complication: Felicia Herrera MD Nov 21, 2016 09:22
[2016-11-21] MEDS: GABAPENTIN 400 MG CAP PO SCH ×2 (09:36→19:54)
[2016-11-21] MEDS: SODIUM CHLORIDE 0.9% FLUSH 5 ML FLUSH IV SCH ×2 (09:36→19:55)
[2016-11-21] MEDS: PANTOPRAZOLE SOD 40 MG DELAYED RELEASE TAB PO SCH (09:36)
[2016-11-21] MEDS ORDERED: SODIUM CHLORID 0.9% 500 ML INJ 500 ML IV ONE (10:45)
--- NOTE | 2016-11-21 11:08 | RADRPT ---
EXAM DATE/TIME: 11/21/2016 10:21 [facility] COMPARISON: No previous studies available for comparison. INDICATIONS : Syncope. MEDICAL HISTORY : Oral Cancer. Cataracts. CVA. Head Trauma. Migraines. Hyperlipidema. A.FIB . Asthma. Dyspnea. SURGICAL HISTORY : section. Cholecystectomy. Appendectomy. Mastectomy. Oral surgery. Ton sillectomy. Left femoral stent. Pacemaker. ENCOUNTER: Initial ACUITY: 1 day PAIN SCORE: 0/10 LOCATION: Bilateral neck PEAK SYSTOLIC VELOCITIES (cm/sec): ICA/CCA RATIO: Right: 1.5 Left: 1.0 ICA: Right: 157 Left: 100 CCA: Right: 103 Left: 98 ECA: Right: 222 Left: 109 VERTEBRAL: Right: 53 antegrade Left: 42 antegrade Elevated flow velocities and ICA/CCA ratios have been found to correlate with increased degrees of vessel stenosis, calculated as percentage of diameter relative to a normal segment of distal ICA/CCA FINDINGS: RIGHT CAROTID: There is no evidence for a hemodynamically significant carotid stenosis. Minimal int imal hyperplasia is present with scattered calcific plaque. LEFT CAROTID: There is no evidence for a hemodynamically significant carotid stenosis. Minimal inti mal hyperplasia is present with scattered calcific plaque. VERTEBRAL ARTERIES: Flow is antegrade in both vertebral arteries. MISCELLANEOUS: There are no ancillary masses or adenopathy. CONCLUSION: Negative examination for a hemodynamically significant carotid stenosis. Fer Sorensen MD FACR Board Certified Radiologist. This report was verified electronically.
[2016-11-21] MEDS: SODIUM CHLOR 0.9% 1000 ML INJ 1,000 ML IV SCH ×2 (12:47→21:15)
--- NOTE | 2016-11-21 13:15 | MB ---
cc: IZZY PEREZ DATE OF CONSULTATION: 11/21/2016 1965 REASON FOR CONSULTATION Syncope, orthostatic hypotension. HISTORY OF PRESENT ILLNESS 51-year-old female with past medical history significant for diabetes, gastroparesis, neuropathy, squamous cell carcinoma of the throat, hep C, and episodes of orthostatic hypotension, on Midridone at home, that presents to the ER after syncopal episode. She reports that yesterday she was walking to her bedroom when she passed out. She denies any pre or postdromal symptoms. During the episode she hit her head on her right knee. She denies chest pain, shortness of breath, palpitations, nausea, vomiting, new medications. In the emergency department she was noted to have a blood pressure of 75/47. She has been taking Levaquin for a UTI. She has been recently started on Midodrine for her episodes of orthostatic hypotension. EKG in the emergency department showed a normal sinus rhythm. Telemetry is unremarkable without any episode of tachy- sandrine arrhythmia. Troponins have been negative x2. She had a low grade fever in the emergency department and she still having this morning blood pressure in standing position of 75/44. REVIEW OF SYSTEMS Review of systems negative except for what is mentioned in HPI. PAST MEDICAL HISTORY 1. Insulin-dependent diabetes. 2. Squamous cell carcinoma of the throat. 3. Peripheral neuropathy. 4. Hypertension. 5. Hyperlipidemia. 6. Peripheral vascular disease. 7. Hep C. 8. Arthritis. 9. Cataract. 10. History of diabetes. 11. Osteomyelitis. 12. Recurrent UTI. 13. History of pacemaker. PAST SURGICAL HISTORY 1. Cholecystectomy. 2. Appendectomy. 3. Tonsillectomy. 4. Right fifth digit amputation. 5. Pacemaker placement. 6. Left femoral artery stent. 7. . MEDICATIONS Home medications: 1. Midodrine 5 mg p.o. t.i.d. 2. Levaquin 500 mg p.o. q.12 hours. 3. Sodium chloride 1 gram tab p.o. b.i.d. 4. Phenergan 25 mg p.o. q.6 hours p.r.n. 5. Zofran 8 mg p.o. q. 8 hours p.r.n. 6. Tylenol PM. 7. Gabapentin 400 mg p.o. b.i.d. ALLERGIES COMPAZINE, ULTRAM. FAMILY HISTORY Noncontributory. SOCIAL HISTORY Former smoker. Denies alcohol use. Denies illicit drug use. PHYSICAL EXAMINATION VITAL SIGNS: Temperature 98.8, pulse 92, respiratory rate 20, blood pressure 112/66 sitting, up and standing 75/44, O2 sat 95% and 2 liters nasal cannula. GENERAL: She is awake, alert, oriented x3, in no acute distress. NECK: No JVD, no carotid bruits. HEART: Regular rate and rhythm. No murmurs, rubs or gallops appreciated. LUNGS: Clear to auscultation bilaterally. No wheezes or rhonchi or rales. ABDOMEN: Soft, nontender, nondistended. Positive bowel sounds. EXTREMITIES: No cyanosis or edema. Pulses throughout. DATA CBC hemoglobin of 9.5, hematocrit of 27, trending down from 29, platelet count 188. Chemistries sodium 137, potassium 3.8, BUN 9, creatinine 0.61, troponins less than 0.02 x2. INR 0.9. Urinalysis showing a generous amount of glucose and WBCs. Microbiology urine culture pending. EKG normal sinus rhythm, basically unremarkable. Knee x-ray is unremarkable. Hip and pelvis x-ray unremarkable. Head CT unremarkable. Chest x-ray shows no acute cardiopulmonary process. ASSESSMENT/PLAN 51-year-old female with history of squamous cell carcinoma on Radiation, hep C, diabetes with gastroparesis and neuropathy and episodes of orthostatic hypotension that presents with another episode of orthostatic hypotension. No clear cardiac complaint. EKG and telemetry are unremarkable as well as cardiac markers. She does have an ongoing UTI which is being treated. She denies low p.o. intake or dehydration or any new medications. By exam and by symptoms it does not seem to be a cardiac etiology. For now I recommend to do echocardiogram, pacemaker interrogation and increase Midodrine to 10mg PO TID. If these test unremarkable I would not pursue further cardiac workup. If echo comes back with abnormalities, we may entertain the possibility of doing a ischemic work-up before discharge. Thank you for the opportunity to participate in the care of this patient Will be available on p.r.n. basis for any questions or concerns. Izzy Perez MD [employer]/TLL /9:39 AM /12:37 PM [facility]
[2016-11-21] MEDS: MIDODRINE 5 MG TAB PO SCH ×2 (13:21→17:55)
[2016-11-21] MEDS: SODIUM CHLORIDE 1 GRAM TAB PO SCH ×2 (13:22→21:15)
--- NOTE | 2016-11-21 16:43 | EC ---
Study Study Date:11/21/2016 STUDY CONCLUSIONS SUMMARY - Left ventricle: The cavity size was normal. Wall thickness was normal. Systolic function was vigorous. The estimated ejection fraction was in the range of 60% to 65%. Wall motion was normal; there were no regional wall motion abnormalities. - Atrial septum: A patent foramen ovale cannot be excluded. - Tricuspid valve: Mild regurgitation. If LV function is below 40, please consider prescribing an ACEI or ARB or document rationale for non-use. PROCEDURE DATA STUDY STATUS: Elective. Procedure: Transthoracic echocardiography. Image quality was good. Scanning was performed from the parasternal, apical, and subcostal acoustic windows. Study completion: The patient tolerated the procedure well. Transthoracic echocardiography. M-mode, complete 2D, complete spectral Doppler, and color Doppler. Patient status: Inpatient. CARDIAC ANATOMY LEFT VENTRICLE: The cavity size was normal. Wall thickness was normal. Systolic function was vigorous. The estimated ejection fraction was in the range of 60% to 65%. Wall motion was normal; there were no regional wall motion abnormalities. AORTIC VALVE: Trileaflet; normal thickness leaflets. Doppler: Transvalvular velocity was within the normal range. There was no stenosis. No regurgitation. AORTA: Aortic root: The aortic root was normal in size. MITRAL VALVE: Structurally normal valve. Doppler: Transvalvular velocity was within the normal range. There was no evidence for stenosis. Trace regurgitation. LEFT ATRIUM: The atrium was normal in size. ATRIAL SEPTUM: A patent foramen ovale cannot be excluded. RIGHT VENTRICLE: The cavity size was normal. Wall thickness was normal. PULMONIC VALVE: Doppler: Transvalvular velocity was within the normal range. There was no evidence for stenosis. No regurgitation. TRICUSPID VALVE: Structurally normal valve. Doppler: Transvalvular velocity was within the normal range. Mild regurgitation. PULMONARY ARTERY: The main pulmonary artery was normal-sized. Systolic pressure was within the normal range. RIGHT ATRIUM: The atrium was normal in size. PERICARDIUM: There was no pericardial effusion. SYSTEMIC VEINS: Inferior vena cava: The vessel was normal in size. Prepared and signed by Piotr Hunter [id number]
--- NOTE | 2016-11-21 19:23 | EKG ---
Date Performed: 11/21/2016 Time Performed: 03:38:17 PTAGE: 51 years EKG: Sinus rhythm NONSPECIFIC T-WAVE ABNORMALITY BORDERLINE ECG PREVIOUS TRACING : 11/20/2016 21.24 DOCTOR: Addi Hwang Interpretating Date/Time 11/21/2016 19:19:59
--- NOTE | 2016-11-21 19:29 | EKG ---
Date Performed: 11/20/2016 Time Performed: 21:23:51 PTAGE: 51 years EKG: Sinus rhythm PREVIOUS TRACING : 11/08/2016 14.03 DOCTOR: Addi Hwang Interpretating Date/Time 11/21/2016 19:26:35
[2016-11-21] MEDS ORDERED: ZOLPIDEM TARTRATE 5 MG TAB PO PRN (21:00)
[2016-11-21] MEDS ORDERED: INSULIN DETEMIR 100 UNITS/ML VIAL SQ SCH (21:00)
[2016-11-22 00:26] VITALS: BP 90/54; PULSE 80; RESP 20; TEMP 98.2; O2SAT 93
[2016-11-22] MEDS: SODIUM CHLOR 0.9% 1000 ML INJ 1,000 ML IV SCH (02:40)
[2016-11-22 04:15] LABS: AUTOMATED NEUTROPHIL # 1.3 TH/MM3 (1.8-7.7); BASOPHIL % 0.7 % (0.0-2.0); HEMATOCRIT 26.3 % (35.0-46.0); HEMO FLAGS DIFF FINAL; LYMPH % 27.4 % (9.0-44.0); LYMPHOCYTE # 0.6 TH/MM3 (1.0-4.8); MEAN CELL VOLUME 89.1 FL (80.0-100.0); MEAN CORPUSCULAR HEMOGLOBIN 30.7 PG (27.0-34.0); MEAN CORPUSCULAR HGB CONC 34.4 % (32.0-36.0); MONO % 14.6 % (0.0-8.0); NEUT % 55.3 % (16.0-70.0); PLATELET COUNT 186 TH/MM3 (150-450); RED BLOOD COUNT 2.95 MIL/MM3 (4.00-5.30); WHITE BLOOD COUNT 2.4 TH/MM3 (4.0-11.0)
[2016-11-22 04:31] LABS: BICARBONATE 31.2 MEQ/L (21.0-32.0); POTASSIUM 3.7 MEQ/L (3.5-5.1)
[2016-11-22 04:52] VITALS: BP 101/63; PULSE 77; RESP 20; TEMP 98.5; O2SAT 98
[2016-11-22] MEDS: INSULIN ASPART SUPPLEMENTAL SCALE SQ SCH (06:09)
[2016-11-22] MEDS: MIDODRINE 5 MG TAB PO SCH (06:09)
[2016-11-22 08:00] VITALS: BP 108/69; PULSE 83; RESP 18; TEMP 98.1; O2SAT 99
[2016-11-22 09:00] VITALS: O2SAT 98
[2016-11-22] MEDS: PANTOPRAZOLE SOD 40 MG DELAYED RELEASE TAB PO SCH (09:04)
[2016-11-22] MEDS: GABAPENTIN 400 MG CAP PO SCH (09:04)
[2016-11-22] MEDS: SODIUM CHLORIDE 1 GRAM TAB PO SCH (09:04)
[2016-11-22] MEDS: SODIUM CHLORIDE 0.9% FLUSH 5 ML FLUSH IV SCH (09:05)
--- NOTE | 2016-11-22 09:15 | MG ---
cc: AUDREY KOROMA MD Lab No: [id number] Date: 11/21/2016 : 1965 Sex: F INDICATION A 51-year-old with syncopal episode and headaches. DESCRIPTION Posterior rhythm demonstrates well-formed alpha activity, 8-9 Hz, 10-40 microvolts. Good anterior to posterior gradient. Left frontal central high-frequency myogenic artifact occurring off and on during the recording. Attenuation generalized slowing with transition into drowsy state. Good EEG variability and reactivity. Limited driving with photic stimulation. Single-lead EKG shows sinus rhythm. INTERPRETATION Normal awake and drowsy EEG. Clinical correlation. Audrey Koroma MD MG/BT /8:50 PM /9:11 AM
[2016-11-22] MEDS ORDERED: MIDO5TAB PO (10:25)
--- NOTE | 2016-11-22 10:26 | HHI.DCPOC ---
Discharge Care Plan Diagnosis: (1) Orthostatic hypotension Goals to Promote Your Health * To prevent worsening of your condition and complications * To maintain your health at the optimal level Directions to Meet Your Goals Take your medications as prescribed Follow your dietary instruction Follow activity as directed Keep your appointments as scheduled Take your immunizations and boosters as scheduled If your symptoms worsen call your PCP, if no PCP go to Urgent Care Center or Emergency Room Smoking is Dangerous to Your Health. Avoid second hand smoke Call the 24-hour hour crisis hotline for domestic abuse at Tavares Moreno MD R3 Nov 22, 2016 10:26
--- NOTE | 2016-11-22 10:29 | HHI.FF ---
Face to Face Verification Diagnosis: (1) Orthostatic hypotension Physical Therapy Order: Evaluate and Treat, Improve ambulation, Strength and gait training Occupational Therapy Order: Evaluate and Treat Home Health Nursing Order: Medical education Signs/symptoms of disease process Diabetic education I have seen patient Jaqueline Arechiga on 11/22/16. My clinical findings support the need for the requested home health care services because: Ltd mobility - disease progression Deconditioned w/ increased weakness Med compliance is questionable Limited ability to care for self High risk of falls I certify that my clinical findings support that this patient is homebound because: Unsteady gait/balance Tavares Moreno MD R3 Nov 22, 2016 10:29
[2016-11-22] MEDS ORDERED: LOPE7.5C PO (12:18)
--- NOTE | 2016-11-22 12:31 | HHI.FPPN ---
Subjective Remarks Patient seen this morning. No acute events overnight. Vitals WNL this AM. Jaqueline states dizziness improved. Feels ready for DC home. No complaints this AM. She does refuse outpatient IVF therapy at this time. She states she will "be more careful and drink more water". She says she will call hematology office if she feels more dizzy. She is also requesting new prescription for glucerna at [place]. She tried to buy at [facility] with script but states she was told prescription would not cover. States she needs this as she "can't taste anything" and has a hard time taking in adequate PO. (Tavares Moreno MD R3) Objective Vitals Vital Signs Date Time Temp Pulse Resp B/P Pulse Ox O2 Delivery O2 Flow Rate FiO2 11/22/16 09:00 98 21 11/22/16 08:00 98.1 83 18 108/69 99 11/22/16 04:52 98.5 77 20 101/63 98 11/22/16 00:26 98.2 80 20 90/54 93 11/21/16 21:58 87 11/21/16 19:59 86 142/81 11/21/16 19:03 98.1 93 20 180/83 97 11/21/16 16:00 98.8 85 20 159/80 98 118/69 142/72 I/O 11/21/16 11/21/16 11/21/16 11/22/16 11/22/16 11/22/16 07:00 15:00 23:00 07:00 15:00 23:00 Intake Total 480 ml Balance 480 ml Intake Oral 480 ml # Voids 3 1 2 # Bowel Movements 0 1 (Tavares Moreno MD R3) Result Diagram: 11/22/16 0415 11/22/16 0345 Objective Remarks GENERAL: 51 y/o F in no acute distress sitting up in bed. SKIN: No rash. Warm and dry. Old, appropriately healing hematoma on anterior RLE inferior to the patella. Areas of hyperpigmented skin circumferentially around patient's neck and upper thorax. CARDIOVASCULAR: RRR with no MGR. RESPIRATORY: CTAB with no CRW. GASTROINTESTINAL: Abdomen soft, non-tender, nondistended with +BS. NEUROLOGICAL: Awake and alert. Cranial nerves II through XII intact. Motor and sensory grossly within normal limits. Five out of 5 muscle strength in all muscle groups. Normal speech. (Tavares Moreno MD R3) A/P Assessment and Plan Ms. Arechiga is a 51 y/o F with a PMHx of type 2 DM with gastroparesis and neuropathy, SCC of oropharynx undergoing radiation, hepatitis C, and orthostatic hypotension presents after a syncopal episode. She was again found to be profoundly orthostatic on measurement of 70s over 40s when standing. Her history is also consistent with orthostasis. Discharge Planning Plan for DC home today. Ideally patient should have outpatient IVF therapy, given inadequate PO intake, but she refuses. Frances Starkey has set up appointment for outpatient IVF therapy tomorrow. Will be DCed home with HH PT/OT. Discussed with Dr. Herrera (Tavares Moreno MD R3) Attending Attestation Patient seen and examined. Case reviewed and discussed with the resident team. Agree with plan of care as discussed with me and documented in the resident note. Pt very eager to leave hospital and will get up slowly and have help when she stands up (Felicia Herrera MD) Problem List: (1) Syncope Status: Acute Plan: Patient with a syncopal episode. Likely related to orthostatic hypotension. 2D echo and carotid u/s negative. EEG shows no epileptic activity. Head CT neg. -orthostatic this admission -troponin and EKG negative x2 -increase midodrine to 10mg TID. -appreciate cards recs. No further workup or changes in management at this time. -PT consulted. HH PT/OT at time of DC. (2) Low back pain Status: Acute Plan: Patient with recent syncopal fall with lower back pain Tylenol 650 mg every 4 hours when necessary for pain 1-10 Continue to monitor (3) Right knee pain Status: Acute Plan: Patient with recent syncopal fall with right knee pain Exam: Within normal limits without signs of acute trauma Tylenol 650 mg every 4 hours when necessary for pain 1-10 Continue to monitor (4) Black stool Status: Acute Plan: Patient states that she has been having daily episodes of black diarrhea with as many as 3 episodes per day. -hemoccult negative. Needs Cdiff PCR if loose stool/diarrrhea, given recent abx use. 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 Umanzor. Last chemotherapy was in September. No further plan for chemotherapy. Currently receiving radiation M- with plans for completion the . -Radiation treatment to continue daily while inpatient. -Heme/onc consulted. -Continue mechanical soft diet (6) DM (diabetes mellitus), type 2, uncontrolled w/neurologic complication Status: Chronic Plan: Insulin-dependent type 2 diabetic. Patient has not been checking her BG daily, but has been compliant with Levemir 5mg QHS. -Continue Levemir 5 units QHS -Low-dose SSI. -Gabapentin 800 mg twice a day (7) Gastroparesis due to DM Status: Acute Plan: Gastric emptying study previous admission showed gastroparesis. EGD showed mild gastritis, esophagitis and duodenal erosions. Continue PPI and observation. Biopsy results show mild chronic gastritis, negative for Helicobacter pylori, negative for metaplasia or dysplasia. -Protonix 40 mg daily -Continue Phenegran 25mg Q6H and Zofran 4mg Q8H prn. Reglan if not controlled with this. -Monitor I's and O's (8) Hepatitis C Status: Chronic Plan: Patient with history of Hepatitis C AST/ALT: 10/29 Continue to monitor Tylenol use with AST/ALT liver tests are good and may have been effected in the past by Chemo (9) Nutrition, metabolism, and development symptoms Status: Acute Plan: Diet: Diabetic diet, mechanical soft Electrolytes: WNL, continue to monitor DVT prophylaxis: Defer at this time. Patient ambulatory. GI prophylaxis: Protonix 40 mg daily Sleep: Continue Tylenol PM (Tavares Moreno MD R3) Problem Qualifiers (1) Syncope: Qualified Code: R55 - Syncope, unspecified syncope type (2) Low back pain: Qualified Code: M54.5 - Acute low back pain without sciatica, unspecified back pain laterality (3) Right knee pain: Qualified Code: M25.561 - Acute pain of right knee (4) DM (diabetes mellitus), type 2, uncontrolled w/neurologic complication: Tavares Moreno MD R3 Nov 22, 2016 12:30 Felicia Herrera MD Nov 23, 2016 14:08
--- NOTE | 2016-11-22 15:31 | MB ---
cc: ROXANNE JORDAN M.D., JASON MD DATE OF CONSULTATION: 11/22/2016 REASON FOR CONSULTATION Oncology is consulted to render an opinion guarding patient with head and neck cancer, admitted with a syncopal episode. HISTORY OF PRESENT ILLNESS The patient is a 51-year-old female with a history of oropharyngeal squamous cell carcinoma, p16 positive, currently receiving radiation who presented to the hospital again after a fall. She is a rather poor historian. She stated that on Monday while walking around the room she fell. She stated her landed on and no trauma to the head. She did bruise her right knee. She denies loss of consciousness. She denies feeling dizzy. She stated that she just fell and did not know why. She denies any fever or chills. Denies chest pain. Denies shortness of breath or cough. Denies nausea, vomiting, diarrhea, abdominal pain. Denies dysuria or hematuria. She was just admitted to the hospital in October with orthostatic hypotension and syncopal episode. During the hospital stay she was noted to have neutropenia which resolved when she left the hospital. Her radiation was put on hold. She started radiation again yesterday. She denies any dysphagia. She denies any sore throat. Denies any headache. She has no focal numbness or weakness. PAST MEDICAL HISTORY 1. Oropharyngeal squamous cell carcinoma with massive disease in the neck lymph node. 2. Orthostatic hypotension. 3. Depression. 4. Peripheral vascular disease. 5. Hepatitis C. 6. Osteoarthritis. 7. Cataract. 8. History of pancreatitis. 9. History of osteomyelitis and cellulitis 10. Recurrent urinary tract infections. 11. Hyperlipidemia. PAST SURGICAL HISTORY 1. Tonsillectomy. 2. Port placement. 3. Cholecystectomy. 4. Appendectomy. 5. Right fifth digit amputation. 6. Pacemaker placement. 7. Left femoral stent placement. 8. . FAMILY HISTORY Noncontributory. SOCIAL HISTORY Quit smoking in 2003 but has about a 95-[id number] smoking history. Denies alcohol use. Lives with her boyfriend. ALLERGIES 1. COMPAZINE. 2. MORPHINE. 3. PERCOCET. 4. ULTRAM. MEDICATIONS Current medications: 1. Gabapentin. 2. Protonix. 3. Midodrine. 4. Ambien. 5. Insulin. REVIEW OF SYSTEMS CONSTITUTIONAL: Denies any fever, chills, night sweat, weight loss. EYES: Denies any blurry vision, double vision. ENT: Denies mouth sores or voice changes. CARDIOVASCULAR: Denies chest pressure or palpitations. RESPIRATORY: Denies shortness of breath or cough. GI: Denies nausea, vomiting, diarrhea, abdominal pain. : Denies dysuria or hematuria. MUSCULOSKELETAL: Denies bone pain, muscle pain. Has soreness in the right knee. HEMATOLOGIC: Negative. ENDOCRINE: Negative. DERMATOLOGIC: Negative. PSYCHIATRIC: Negative. NEUROLOGIC: As above. PHYSICAL EXAMINATION VITAL SIGNS: Temperature 98.1, blood pressure 108/69, O2 saturation 98% on room air. GENERAL: She is alert and oriented x3. She is sitting at the bedside doing a crossword puzzle. HEENT: Atraumatic, normocephalic. Pupils equal, round and reactive to light. Extraocular muscles are intat. No scleral icterus. Oropharynx moist mucosa, no lesion, no thrush, no mucositis. NECK: No thyromegaly. No palpable mass. LYMPHATIC: No palpable cervical, clavicular, axillary or inguinal lymph nodes. CARDIOVASCULAR: Regular, S1, S2. No murmur. LUNGS: Clear to auscultation without wheezing or rhonchi. ABDOMEN: Soft, nontender. I could not palpate the liver or spleen. EXTREMITIES: No cyanosis, clubbing or edema. No calf tenderness. BACK: No paravertebral tenderness. SKIN: No rash or petechiae. NEUROLOGIC: Nonfocal. LABORATORY DATA Laboratory data reviewed. ASSESSMENT 1. Oropharyngeal squamous cell carcinoma, p16 positive. PET scan showed a large greater than 4 cm hypermetabolic mass in the posterolateral right oropharyngeal area without extension across the midline. There was a solitary hypermetabolic right jugular chain lymph node measuring 1.2 cm. Biopsy showed squamous cell carcinoma, p16 positive. She was treated with three cycles of neoadjuvant carboplatin and Taxol. She was then started on weekly cisplatin and radiation. Unfortunately she could not tolerate chemotherapy and cisplatin was stopped. She has been getting radiation but her treatment has been interrupted multiple times when she was admitted to the hospital. She was started on radiation again yesterday. She was supposed to finish the radiation course next Monday. Clinically, she has no new symptoms. I could not palpate any neck mass. She appeared to have a very good response to treatment. 2. Orthostatic hypotension. She is currently undergoing a cardiac work-up. She was started on midodrine. 3. Leukopenia. Her white blood cell count trended lower again today. This may be due to the radiation. I will continue to monitor her. 4. 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 5. Peripheral neuropathy of diabetes. 6. Diabetes mellitus. 7. Peripheral vascular disease. PLAN 1. Continue radiation under the care of Dr. Nagy. 2. Monitor CBC. 3. The patient can be discharged from an oncologic standpoint once she is cleared by cardiology. 4. The patient can come to the oncology clinic for hydration as needed; however, she has been noncompliant with her follow-up appointments. Thank you Dr. Moreno for asking me to see this patient. MD JHONATHAN Brunson/[place] /11:34 AM /3:04 PM MTDIndy
[2016-11-29] MEDS ORDERED: GLUCLIQ15 PO (14:33)
[2016-11-29] MEDS ORDERED: LEVEMIR SQ (14:33)
[2016-11-29] MEDS ORDERED: SITA25 PO (14:33)
[2016-11-29] MEDS ORDERED: MIDO10TA PO (14:33)
--- NOTE | 2016-12-07 09:34 | HHI.DS ---
Discharge Summary Admission Date Nov 20, 2016 at 23:13 Discharge Date: Dec 23, 2016 Admitting Diagnosis syncope, severe orthostatic hypotension (1) Syncope Diagnosis: Principal Plan: Patient with a syncopal episode. Likely related to orthostatic hypotension. 2D echo and carotid u/s negative. EEG shows no epileptic activity. Head CT neg. -orthostatic this admission -troponin and EKG negative x2 -increase midodrine to 10mg TID. -appreciate cards recs. No further workup or changes in management at this time. -PT consulted. PT/OT at time of DC. (2) Low back pain Diagnosis: Secondary Plan: Patient with recent syncopal fall with lower back pain Tylenol 650 mg every 4 hours when necessary for pain 1-10 Continue to monitor (3) Right knee pain Diagnosis: Secondary Plan: Patient with recent syncopal fall with right knee pain Exam: Within normal limits without signs of acute trauma Tylenol 650 mg every 4 hours when necessary for pain 1-10 Continue to monitor (4) Black stool Diagnosis: Secondary Plan: Patient states that she has been having daily episodes of black diarrhea with as many as 3 episodes per day. -hemoccult negative. Needs Cdiff PCR if loose stool/diarrrhea, given recent abx use. (5) Squamous cell carcinoma of oropharynx Diagnosis: Secondary Plan: Followed by Dr. Umanzor. Last chemotherapy was in September. No further plan for chemotherapy. Currently receiving radiation - with plans for completion the . -Radiation treatment to continue daily while inpatient. -Heme/onc consulted. -Continue mechanical soft diet (6) DM (diabetes mellitus), type 2, uncontrolled w/neurologic complication Diagnosis: Secondary Plan: Insulin-dependent type 2 diabetic. Patient has not been checking her BG daily, but has been compliant with Levemir 5mg QHS. -Continue Levemir 5 units QHS -Low-dose SSI. -Gabapentin 800 mg twice a day (7) Gastroparesis due to DM Diagnosis: Secondary Plan: Gastric emptying study previous admission showed gastroparesis. EGD showed mild gastritis, esophagitis and duodenal erosions. Continue PPI and observation. Biopsy results show mild chronic gastritis, negative for Helicobacter pylori, negative for metaplasia or dysplasia. -Protonix 40 mg daily -Continue Phenegran 25mg Q6H and Zofran 4mg Q8H prn. Reglan if not controlled with this. -Monitor I's and O's (8) Hepatitis C Diagnosis: Secondary Plan: Patient with history of Hepatitis C AST/ALT: 10/29 Continue to monitor Tylenol use with AST/ALT liver tests are good and may have been effected in the past by Chemo (9) Nutrition, metabolism, and development symptoms Diagnosis: Secondary Plan: Diet: Diabetic diet, mechanical soft Electrolytes: WNL, continue to monitor DVT prophylaxis: Defer at this time. Patient ambulatory. GI prophylaxis: Protonix 40 mg daily Sleep: Continue Tylenol PM Brief History Ms. Arechiga is a 51 y/o F with a PMHx of type 2 DM with gastroparesis and neuropathy, SCC of oropharynx undergoing radiation, hepatitis C, and orthostatic hypotension who presented after a syncopal episode. She states that she was walking from her living room to her bedroom when she "passed out." Normally, she has her boyfriend help her whenever she gets up from her wheelchair. She had just come home from jainism and her boyfriend had asked her to wait but she just got up and started walking on her own when she had the syncope. During the syncopal episode she states that she "felt funny," and then fell to the floor hitting her head on her purse/bag and her R knee on the ground. She denies any seizure like activity, positional change, light headedness, palpitations, or weakness in her extremities prior her fall. She reports that she has fallen many times before, but this fall felt "very different." After the fall she regained consciousness immediately and felt pain in her R knee and lower back but fortunately did not break any bones. She was hospitalized for a near syncopal episode from 11/08-11/20/16 and diagnosed with orthostatic hypotension. At that time she was started on Midodrine 5mg TID and reports that she has been compliant and it helps her. However, she still needs to get up slowly and almost always has her boyfriend right there behind her when she stands up. Since her last hospitalization she has been having episodes of dark brown/ black diarrhea daily up to 3 times per day. She denies any ABD pain or bright red blood per rectum. Of note, she recently completed a course of ciprofloxacin for UTI during her last hospitalization. She is a type 2 diabetic who has been compliant with her Levemir 5mg nightly, but has not been checking her BG daily since her last hospitalization. Otherwise she has no complaints and currently denies any fevers, chills, SOB, chest pain, NV, or calf tenderness. She reports taking some po supplements given her by her radiation Dr and is "drinking as much as she can." She is done with chemo and does not have any more nausea. She has the as her last day of radiation for her throat and is eager to be done. PE at Discharge GENERAL: 51 y/o F in no acute distress sitting up in bed. SKIN: No rash. Warm and dry. Old, appropriately healing hematoma on anterior RLE inferior to the patella. Areas of hyperpigmented skin circumferentially around patient's neck and upper thorax. CARDIOVASCULAR: RRR with no MGR. RESPIRATORY: CTAB with no CRW. GASTROINTESTINAL: Abdomen soft, non-tender, nondistended with +BS. NEUROLOGICAL: Awake and alert. Cranial nerves II through XII intact. Motor and sensory grossly within normal limits. Five out of 5 muscle strength in all muscle groups. Normal speech. Hospital Course 51 year old patient with complicated PMH, including SCC of the oropharynx admitted with dizziness on 11/20. Discovered to be orthostatic during hospital stay earlier that month and started on midodrine. On admission to the ER, had profound orthostatic hypotension with readings in the 70/40s standing. Midodrine dose increased to 10 mg TID. ACS workup negative. 2D echo, carotid artery u/s, EEG all negative. Reported dark stools, hemoccult negative. Orthostatic hypotension and dizziness improved with IVF. Cards consulted, no recs. Orthostatic hypotension determined to likely be combination of decreased PO intake 2/2 SCC and autonomic dysfunction 2/2 DM. Arrangements made for outpatient IVF therapy while patient still getting radiation therapy. Discharged home with PT on 11/22. Pt Condition on Discharge: Stable Discharge Disposition: Disch w/ Home Health Serv Discharge Instructions DIET: Follow Instructions for: Diabetic Diet Activities you can perform: Weight Bearing as Tavares Cuellar MD R3 Dec 07, 2016 09:34
[2017-01-05] MEDS ORDERED: SODI1TAB PO (14:28)
[2017-01-05] MEDS ORDERED: SITA1TAB2 PO (14:43)
[2017-01-05] MEDS ORDERED: INSU1MIS15 (14:45)
[2017-01-05] MEDS ORDERED: GLUCKIT15 (14:45)
[2017-01-05] MEDS ORDERED: LANCETS1 MI1 (14:45)
[2017-01-05] MEDS ORDERED: GLUCTES12 (14:45)
--- NOTE | 2017-01-18 15:14 | HHI.DS ---
Discharge Summary Admission Date Nov 20, 2016 at 23:13 Admitting Diagnosis syncope, severe orthostatic hypotension (1) Syncope Diagnosis: Principal Plan: Patient with a syncopal episode. Likely related to orthostatic hypotension. 2D echo and carotid u/s negative. EEG shows no epileptic activity. Head CT neg. -orthostatic this admission -troponin and EKG negative x2 -increase midodrine to 10mg TID. -appreciate cards recs. No further workup or changes in management at this time. -PT consulted. PT/OT at time of DC. (2) Low back pain Diagnosis: Secondary Plan: Patient with recent syncopal fall with lower back pain Tylenol 650 mg every 4 hours when necessary for pain 1-10 Continue to monitor (3) Right knee pain Diagnosis: Secondary Plan: Patient with recent syncopal fall with right knee pain Exam: Within normal limits without signs of acute trauma Tylenol 650 mg every 4 hours when necessary for pain 1-10 Continue to monitor (4) Black stool Diagnosis: Secondary Plan: Patient states that she has been having daily episodes of black diarrhea with as many as 3 episodes per day. -hemoccult negative. Needs Cdiff PCR if loose stool/diarrrhea, given recent abx use. (5) Squamous cell carcinoma of oropharynx Diagnosis: Secondary Plan: Followed by Dr. Umanzor. Last chemotherapy was in September. No further plan for chemotherapy. Currently receiving radiation - with plans for completion the . -Radiation treatment to continue daily while inpatient. -Heme/onc consulted. -Continue mechanical soft diet (6) DM (diabetes mellitus), type 2, uncontrolled w/neurologic complication Diagnosis: Secondary Plan: Insulin-dependent type 2 diabetic. Patient has not been checking her BG daily, but has been compliant with Levemir 5mg QHS. -Continue Levemir 5 units QHS -Low-dose SSI. -Gabapentin 800 mg twice a day (7) Gastroparesis due to DM Diagnosis: Secondary Plan: Gastric emptying study previous admission showed gastroparesis. EGD showed mild gastritis, esophagitis and duodenal erosions. Continue PPI and observation. Biopsy results show mild chronic gastritis, negative for Helicobacter pylori, negative for metaplasia or dysplasia. -Protonix 40 mg daily -Continue Phenegran 25mg Q6H and Zofran 4mg Q8H prn. Reglan if not controlled with this. -Monitor I's and O's (8) Hepatitis C Diagnosis: Secondary Plan: Patient with history of Hepatitis C AST/ALT: 10/29 Continue to monitor Tylenol use with AST/ALT liver tests are good and may have been effected in the past by Chemo (9) Nutrition, metabolism, and development symptoms Diagnosis: Secondary Plan: Diet: Diabetic diet, mechanical soft Electrolytes: WNL, continue to monitor DVT prophylaxis: Defer at this time. Patient ambulatory. GI prophylaxis: Protonix 40 mg daily Sleep: Continue Tylenol PM Consultants Cardiology, Heme-onc Brief History Ms. Arechiga is a 51 y/o F with a PMHx of type 2 DM with gastroparesis and neuropathy, SCC of oropharynx undergoing radiation, hepatitis C, and orthostatic hypotension who presented after a syncopal episode. She states that she was walking from her living room to her bedroom when she "passed out." Normally, she has her boyfriend help her whenever she gets up from her wheelchair. She had just come home from synagogue and her boyfriend had asked her to wait but she just got up and started walking on her own when she had the syncope. During the syncopal episode she states that she "felt funny," and then fell to the floor hitting her head on her purse/bag and her R knee on the ground. She denies any seizure like activity, positional change, light headedness, palpitations, or weakness in her extremities prior her fall. She reports that she has fallen many times before, but this fall felt "very different." After the fall she regained consciousness immediately and felt pain in her R knee and lower back but fortunately did not break any bones. She was hospitalized for a near syncopal episode from 11/08-11/20/16 and diagnosed with orthostatic hypotension. At that time she was started on Midodrine 5mg TID and reports that she has been compliant and it helps her. However, she still needs to get up slowly and almost always has her boyfriend right there behind her when she stands up. Since her last hospitalization she has been having episodes of dark brown/ black diarrhea daily up to 3 times per day. She denies any ABD pain or bright red blood per rectum. Of note, she recently completed a course of ciprofloxacin for UTI during her last hospitalization. She is a type 2 diabetic who has been compliant with her Levemir 5mg nightly, but has not been checking her BG daily since her last hospitalization. Otherwise she has no complaints and currently denies any fevers, chills, SOB, chest pain, NV, or calf tenderness. She reports taking some po supplements given her by her radiation Dr and is "drinking as much as she can." She is done with chemo and does not have any more nausea. She has the as her last day of radiation for her throat and is eager to be done. PE at Discharge GENERAL: 51 y/o F in no acute distress sitting up in bed. SKIN: No rash. Warm and dry. Old, appropriately healing hematoma on anterior RLE inferior to the patella. Areas of hyperpigmented skin circumferentially around patient's neck and upper thorax. CARDIOVASCULAR: RRR with no MGR. RESPIRATORY: CTAB with no CRW. GASTROINTESTINAL: Abdomen soft, non-tender, nondistended with +BS. NEUROLOGICAL: Awake and alert. Cranial nerves II through XII intact. Motor and sensory grossly within normal limits. Five out of 5 muscle strength in all muscle groups. Normal speech. Hospital Course 51 year old patient with complicated medical history, including SCC receiving radiation therapy admitted after syncopal episode. Cardiology was consulted and evaluated patient. ACS r/o negative. 2D echo negative. Patient also had EEG, which showed no epileptic foci. She had significant orthostatic hypotension on admission. Her home midodrine was increased and she was started on glucerna shakes to increase PO. Radiation-oncology also consulted and decision made to continue with radiation therapy. Orthostatic vitals and dizziness improved throughout course with increased dose of midodrine. Patient given script for glucerna shakes at discharge and encouraged to f/u PCP within 1 week. Pt Condition on Discharge: Stable Discharge Disposition: Disch w/ Home Health Serv Discharge Instructions DIET: Follow Instructions for: Diabetic Diet Activities you can perform: Weight Bearing as Tavares Cuellar MD R3 Jan 18, 2017 15:14
[2017-01-26] MEDS ORDERED: EXENINJ SQ (10:55)
[2017-02-08] MEDS ORDERED: GABA400C5 PO (11:21)
[2017-02-22] MEDS ORDERED: ATOR20TA15 PO (11:12)
[2017-02-22] MEDS ORDERED: EXENINJ SQ (11:14)
[2017-02-22] MEDS ORDERED: SODI1TAB PO (11:16)
[2017-02-22] MEDS ORDERED: MIDO5TAB PO (11:16)
[2017-02-22] MEDS ORDERED: ONDA4TAB6 PO (11:17)
[2017-03-02] MEDS ORDERED: LEVA750T PO (14:35)
[2017-03-02] MEDS ORDERED: BACT800T5 PO (14:36)
[2017-03-21] MEDS ORDERED: GABA400C5 PO (10:02)
[2017-03-21] MEDS ORDERED: LACTPOW68 PO (10:11)
[2017-04-04] MEDS ORDERED: LEVO500T8 PO (11:34)
[2017-04-04] MEDS ORDERED: CLIN1CAP6 PO (11:34)
[2017-04-11] MEDS ORDERED: GLIP1TAB49 PO (11:05)
[2017-05-01] MEDS ORDERED: MIDO5TAB PO (10:08)
[2017-05-01] MEDS ORDERED: GABA400C5 PO (10:08)
[2017-05-01] MEDS ORDERED: SODI1TAB PO (10:09)
== END 2016-11-22 13:21 | disposition home or self-care (01) ==
LOC: NEPE 20:00 → NEDA 23:13 → NEPFCDU 11-21 02:05
PROVIDERS: ADMIT Family Medicine; ATTEND Family Medicine
DX: I95.1 Orthostatic hypotension (principal); R55 Syncope and collapse; E11.65 Type 2 diabetes mellitus with hyperglycemia; E11.43 Type 2 diabetes mellitus with diabetic autonomic (poly)neuropathy; K31.84 Gastroparesis; C10.9 Malignant neoplasm of oropharynx, unspecified; B19.20 Unspecified viral hepatitis C without hepatic coma; I73.9 Peripheral vascular disease, unspecified; D63.8 Anemia in other chronic diseases classified elsewhere; G62.9 Polyneuropathy, unspecified; E78.5 Hyperlipidemia, unspecified; J45.909 Unspecified asthma, uncomplicated; M25.561 Pain in right knee; W18.30XA Fall on same level, unspecified, initial encounter; M54.5 Low back pain; Z95.0 Presence of cardiac pacemaker; Z87.440 Personal history of urinary (tract) infections; Z89.421 Acquired absence of other right toe(s); Z79.4 Long term (current) use of insulin; Z87.891 Personal history of nicotine dependence; Z91.81 History of falling; Z91.19 Patient's noncompliance with other medical treatment and regimen
CPT/HCPCS: 70450; 71010; 73502; 73564; 80048; 80053; 80307; 80320; 81001; 82272; 82550; 82948; 83735; 84100; 84439; 84443; 84450; 84460; 84481; 84484; 85025; 85610; 85730; 87086; 93005; 93306; 93880; 95819; 97110; 97163; 99285; G0378; G8987; G8988; J1815; J2405; J7030; J7040

== ENCOUNTER 2016-12-12 15:57 | Emergency (ER) | payer MEDICARE, OTHER ==
[~2016-12-12] VITALS: Ht 172.7 cm; Wt 72.0 kg
[~2016-12-12 15:57] MED LIST changes: -CIPR-9 PO; +LEVEMIR SQ; +LOPE7.5C PO; +MIDO10TA PO; -MIDO5TAB PO; +SITA25 PO
[2016-12-12 15:59] VITALS: BP 125/76; PULSE 96; RESP 20; TEMP 99.3; O2SAT 99
--- NOTE | 2016-12-12 17:46 | PD ---
HPI Chief Complaint: Injury Time Seen by Provider: 17:45 Travel History International Travel<30 days: No Contact w/Intl Traveler<30days: No Traveled to known affect area: No History of Present Illness HPI 51-year-old female presents to the emergency Department with complaint of right elbow swelling, redness, pain 3 days. Denies injury. History of MRSA. Denies paresthesias, loss of sensation, decreased strength to affected extremity. Reports decreased range of motion at the elbow secondary to pain. Denies fever, chills, nausea, vomiting. Has tried warm compresses to the area with no symptom relief. Dr. Adan is primary care provider. Patient has extensive past medical history including osteomyelitis and cellulitis. History of hypertension, insulin-dependent diabetic, asthma, stroke, paced maker placement, hepatitis C. Reports being up-to-date on tetanus vaccination. No other modifying factors or associated signs and symptoms. PFSH Past Medical History Hx Anticoagulant Therapy: Yes (ASA) Arthritis: No Asthma: Yes Atrial Fibrillation: Yes Autoimmune Disease: No Blood Disorders: No Anxiety: No Depression: No Heart Rhythm Problems: Yes (Pacemaker) Cancer: Yes (oropharyngeal cancer) High Cholesterol: No Chemotherapy: Yes Chest Pain: Yes Congestive Heart Failure: No COPD: No Cerebrovascular Accident: Yes Diabetes: Yes Diminished Hearing: No Endocrine: Yes Gastrointestinal Disorders: Yes GERD: No Glaucoma: No Genitourinary: Yes (FREQUENT UTIs) Headaches: Yes Hepatitis: Yes (HEP C) Hiatal Hernia: No Heparin Induced Thrombocytopen: No Hypertension: Yes Immune Disorder: No Implanted Vascular Access Dvce: Yes (PORT R CHEST, PACEMAKER L CHEST) Kidney Stones: Yes Musculoskeletal: Yes (BACK PAIN) Neurologic: Yes (CVA, no deficits ) Psychiatric: No Reproductive: Yes (GENITAL WARTS YEARS AGO) Respiratory: Yes (ASTHMA) Immunizations Current: Yes Migraines: Yes Myocardial Infarction: No Radiation Therapy: Yes (LAST DONE ON 11/18/16) Renal Failure: No Seizures: No Sickle Cell Disease: No Sleep Apnea: No Thyroid Disease: No Triglycerides - High: Yes Ulcer: No PNEUMOCCOCAL Vaccine (Year): 2 Menopausal: Yes : 3 Para: 2 Miscarriage: 1 Past Surgical History Abdominal Surgery: Yes AICD: No Appendectomy: Yes Arteriovenous Shunt: No Body Medical Devices: PACEMAKER; LEG STENT; PORT PLACED Cardiac Surgery: Yes (L FEMORAL STENT, PACEMAKER) Section: Yes (x1) Cholecystectomy: Yes Ear Surgery: No Endocrine Surgery: No Eye Surgery: No Genitourinary Surgery: No Hysterectomy: No Insulin Pump: No Joint Replacement: No Neurologic Surgery: No Oral Surgery: Yes Pacemaker: Yes (ST JUDES) Thoracic Surgery: No Tonsillectomy: Yes Other Surgery: Yes (LEG STENTS, PORT PLACED- RIGHT 2015) Social History Alcohol Use: No Tobacco Use: Yes Substance Use: No Allergies-Medications (Allergen,Severity, Reaction): Coded Allergies: Compazine (Verified Allergy, Severe, 12/12/16) ANXIETY Ultram (Verified Allergy, Intermediate, Rash, 12/12/16) MRI PRECAUTION (Verified Adverse Reaction, Severe, PACEMAKER IS NOT A BIOTRONIK OR MEDTRONIC 06/15/16 KMD, 12/12/16) PACEMAKER IS NOT A BIOTRONIK OR MEDTRONIC CONDITIONAL PACEMAKER. CALLED BOTH COMPANIES TO CONFIRM. Percocet (Verified Adverse Reaction, Severe, Nausea/Vomiting, 12/12/16) *MDRO Multi-Drug Resistant Organism (Verified Adverse Reaction, Unknown, ESBL, MRSA, 12/12/16) E. coli ESBL (urine) - 2012, 2013, 2014, 04/2016 MRSA - 2003, 03/2015 (toe wound), 10/2015 (arm/back wound), (foot-08/17/16) Morphine (Verified Adverse Reaction, Unknown, Dizziness, 12/12/16) states doesn't want-does not like the way it makes me feel Reported Meds & Prescriptions Reported Meds & Active Scripts Active Ibuprofen 600 Mg Tab 600 Mg PO Q6H PRN Bactrim DS (Sulfamethoxazole-Trimethoprim) 800-160 Mg Tab 1 Tab PO BID 10 Days Keflex (Cephalexin) 500 Mg Cap 500 Mg PO Q6H 10 Days Midodrine 10 Mg Tab 10 Mg PO TID Januvia (Sitagliptin Phosphate) 25 Mg Tab 25 Mg PO DAILY Levemir Inj (Insulin Detemir) 1,000 unit/ 10 ML Vial 5 Units SQ BID Do not mix with any other Insulin. Glucerna Shake (Nutritional Supplements) 1 Liq Liq 1 Can PO TIDAC Imodium A-D (Loperamide HCl) 2 Mg Cap 2 Mg PO Q6H PRN Walker with Front Wheels (Device) 1 Mis Mis 1 Ea .ROUTE DIRECTED Sodium Chloride 1 Gm Tab 1 Gm PO BID Phenergan (Promethazine HCl) 25 Mg Tab 25 Mg PO Q6H PRN Zofran (Ondansetron HCl) 8 Mg Tab 8 Mg PO Q8HR Reported Tylenol Pm Extra Strength (Diphenhydramine-Acetaminophen) 25-500 Mg Tab 1 Tab PO HS PRN Gabapentin 400 Mg Cap 800 Mg PO BID Review of Systems Except as stated in HPI: all other systems reviewed are Neg Physical Exam Narrative GENERAL: Well-nourished, well-developed female patient, in no acute distress SKIN: Warm and dry. Right elbow with erythema, edema, and warmth to touch; no fluctuance, pointing or drainage noted; endings consistent with cellulitis. HEAD: Atraumatic. Normocephalic. EYES: Pupils equal and round. No scleral icterus. No injection or drainage. ENT: Mucosa pink and moist. Airway patent. NECK: Trachea midline. CARDIOVASCULAR: Regular rate. RESPIRATORY: No accessory muscle use. GASTROINTESTINAL: Flat. MUSCULOSKELETAL: Right elbow with full flexion; not able to extend elbow completely secondary to pain. 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 No clubbing. No cyanosis. No edema. NEUROLOGICAL: Awake and alert. Oriented 3. No obvious cranial nerve deficits. Motor grossly within normal limits. Normal speech. PSYCHIATRIC: Appropriate mood and affect; insight and judgment normal. Data Data Last Documented VS Vital Signs Date Time Temp Pulse Resp B/P Pulse Ox O2 Delivery O2 Flow Rate FiO2 12/12/16 15:59 99.3 96 20 125/76 99 Room Air Orders Elbow, Complete (4 Vws) (12/12/16 17:46) Ketorolac Inj (Toradol Inj) (12/12/16 18:00) [facility] Medical Decision Making Medical Screen Exam Complete: Yes Emergency Medical Condition: Yes Medical Record Reviewed: Yes Differential Diagnosis Cellulitis, bursitis, less likley septic joint Narrative Course 51-year-old female with right elbow erythema, edema, warmth to touch; then he seemed to be consistent with cellulitis. The patient is afebrile. She denies fever, chills, nausea, vomiting. Up-to-date on her tetanus vaccination. Patient has extensive history including osteomyelitis and cellulitis. Right elbow x-ray ordered to rule out osteomyelitis. 1913: Right elbow x-ray concludes Soft tissue swelling at the elbow. No acute bony abnormality. Keflex, Bactrim, ibuprofen prescribed for home. Patient is medically cleared and stable for discharge. Discussed reasons to return to the emergency department. Instructed patient to follow up with primary care provider. Patient agrees with treatment plan. The patients vital signs are stable and the patient is stable for outpatient follow-up and treatment. Patient discharged home, stable and in no acute distress. Diagnosis Primary Impression: Cellulitis of right elbow Referrals: Primary Care Physician Patient Instructions: Cellulitis (ED), General Instructions Departure Forms: Tests/Procedures Additional Instructions: Complete full course of antibiotics Warm compresses to the affected area Keep area clean and dry Ibuprofen or Tylenol as directed and as needed for pain and inflammation Follow-up with primary care provider Return to emergency department immediately with worsening of symptoms Med/Other Pt SpecificInfo: Prescription(s) given Scripts Ibuprofen 600 Mg [id number] Mg PO Q6H PRN (PAIN SCALE 1 TO 10) #30 TAB Ref 0 Prov:Melba Mcadams 12/12/16 Sulfamethoxazole-Trimethoprim (Bactrim DS)800-160 Mg Tab1 Tab PO BID 10 Days Ref 0 Prov:Melba Mcadams 12/12/16 Cephalexin (Keflex)500 Mg [id number] Mg PO Q6H 10 Days Ref 0 Prov:Melba Mcadams 12/12/16 Disposition: 01 DISCHARGE HOME Condition: Stable Melba Mcadams Dec 12, 2016 17:46
[2016-12-12] MEDS ORDERED: CEPH-460 PO (17:50)
[2016-12-12] MEDS ORDERED: IBUP-232 PO (17:50)
[2016-12-12] MEDS ORDERED: BACT800T5 PO (17:50)
[2016-12-12] MEDS ORDERED: KETOROLAC TROMETHAMINE 60 MG/2 ML (IM) VIAL IM ONE (18:00)
--- NOTE | 2016-12-12 19:10 | RADRPT ---
EXAM DATE/TIME: 12/12/2016 18:12 [facility] COMPARISON: No previous studies available for comparison. INDICATIONS : Right elbow pain and imflammation for the past two days. MEDICAL HISTORY : Hx of Cellulitis. SURGICAL HISTORY : None. ENCOUNTER: Initial ACUITY: 2 days PAIN SCORE: 10/10 LOCATION: Right elbow. FINDINGS: Multiple view examination of the right elbow demonstrates normal alignment. Soft tissue swelling over the extensor surface of the elbow. No significant effusion. CONCLUSION: 1. Soft tissue swelling at the elbow. No acute bony abnormality. Mika Weber MD on December 12, 2016 at 19:07 Board Certified Radiologist. This report was verified electronically.
[2017-01-05] MEDS ORDERED: SODI1TAB PO (14:28)
[2017-01-05] MEDS ORDERED: SITA1TAB2 PO (14:43)
[2017-01-05] MEDS ORDERED: LANCETS1 MI1 (14:45)
[2017-01-05] MEDS ORDERED: GLUCTES12 (14:45)
[2017-01-05] MEDS ORDERED: GLUCKIT15 (14:45)
[2017-01-05] MEDS ORDERED: INSU1MIS15 (14:45)
[2017-01-26] MEDS ORDERED: EXENINJ SQ (10:55)
[2017-02-08] MEDS ORDERED: GABA400C5 PO (11:21)
[2017-02-22] MEDS ORDERED: ATOR20TA15 PO (11:12)
[2017-02-22] MEDS ORDERED: EXENINJ SQ (11:14)
[2017-02-22] MEDS ORDERED: SODI1TAB PO (11:16)
[2017-02-22] MEDS ORDERED: MIDO5TAB PO (11:16)
[2017-02-22] MEDS ORDERED: ONDA4TAB6 PO (11:17)
[2017-03-02] MEDS ORDERED: LEVA750T PO (14:35)
[2017-03-02] MEDS ORDERED: BACT800T5 PO (14:36)
[2017-03-21] MEDS ORDERED: GABA400C5 PO (10:02)
[2017-03-21] MEDS ORDERED: LACTPOW68 PO (10:11)
[2017-04-04] MEDS ORDERED: CLIN1CAP6 PO (11:34)
[2017-04-04] MEDS ORDERED: LEVO500T8 PO (11:34)
[2017-04-11] MEDS ORDERED: GLIP1TAB49 PO (11:05)
[2017-05-01] MEDS ORDERED: MIDO5TAB PO (10:08)
[2017-05-01] MEDS ORDERED: GABA400C5 PO (10:08)
[2017-05-01] MEDS ORDERED: SODI1TAB PO (10:09)
== END 2016-12-12 19:36 | disposition home or self-care (01) ==
LOC: NEPB 15:57
DX: L03.113 Cellulitis of right upper limb (principal); I48.91 Unspecified atrial fibrillation; Z95.0 Presence of cardiac pacemaker; Z86.73 Personal history of transient ischemic attack (TIA), and cerebral infarction without residual deficits; Z79.82 Long term (current) use of aspirin; Z72.0 Tobacco use
CPT/HCPCS: 73080; 96372; 99283; J1885

== ENCOUNTER 2017-01-11 10:03 | Emergency (ER) | payer MEDICARE, OTHER ==
[~2017-01-11] VITALS: Ht 172.7 cm; Wt 65.0 kg
[~2017-01-11 10:03] MED LIST changes: +GLUCKIT15; +GLUCTES12; +INSU1MIS15; +LANCETS1 MI1; +SITA1TAB2 PO; -SITA25 PO
[2017-01-11 10:08] VITALS: BP_SYST 129; BP_SYST 67; BP_DIAS 67; BP_DIAS 92; PULSE 92; RESP 16; TEMP 98.1; O2SAT 99
--- NOTE | 2017-01-11 11:27 | PD ---
HPI Chief Complaint: Skin Problem Time Seen by Provider: 11:25 Travel History International Travel<30 days: No Contact w/Intl Traveler<30days: No Traveled to known affect area: No History of Present Illness HPI Patient is a 51-year-old female presenting to the chart for evaluation of blisters to her right first toe and foot. Patient states the blistering occurred spontaneously 2 days ago, and started to spontaneously open and drain. She denies any exposure to excessive heat or excessive walking. Patient states she only walks around her home. She reports being a diabetic, insulin- dependent. She reports that her diabetes is not well-controlled. Patient denies any fever, chills, nausea, vomiting, chest pain, shortness of breath or pain in her foot. She states that she has neuropathy secondary to her diabetes and she cannot feel anything. Her primary care provider is Dr. Barker[facility] Past Medical History Hx Anticoagulant Therapy: Yes (ASA) Arthritis: No Asthma: Yes Atrial Fibrillation: Yes Autoimmune Disease: No Blood Disorders: No Anxiety: No Depression: No Heart Rhythm Problems: Yes (Pacemaker) Cancer: Yes (oropharyngeal cancer) High Cholesterol: No Chemotherapy: Yes Chest Pain: Yes Congestive Heart Failure: No COPD: No Cerebrovascular Accident: Yes Diabetes: Yes Patient Takes Glucophage: No Diminished Hearing: No Endocrine: Yes Gastrointestinal Disorders: Yes GERD: No Glaucoma: No Genitourinary: Yes (FREQUENT UTIs) Headaches: Yes Hepatitis: Yes (HEP C) Hiatal Hernia: No Heparin Induced Thrombocytopen: No Hypertension: Yes Immune Disorder: No Implanted Vascular Access Dvce: Yes (PORT R CHEST, PACEMAKER L CHEST) Kidney Stones: Yes Musculoskeletal: Yes (BACK PAIN) Neurologic: Yes (CVA, no deficits ) Psychiatric: No Reproductive: Yes (GENITAL WARTS YEARS AGO) Respiratory: Yes (ASTHMA) Immunizations Current: Yes Migraines: Yes Myocardial Infarction: No Radiation Therapy: Yes (LAST DONE ON 11/18/16) Renal Failure: No Seizures: No Sickle Cell Disease: No Sleep Apnea: No Thyroid Disease: No Triglycerides - High: Yes Ulcer: No PNEUMOCCOCAL Vaccine (Year): 2 ?: Not Menopausal: Yes : 3 Para: 2 Miscarriage: 1 Past Surgical History Abdominal Surgery: Yes AICD: No Appendectomy: Yes Arteriovenous Shunt: No Body Medical Devices: PACEMAKER; LEG STENT; PORT PLACED Cardiac Surgery: Yes (L FEMORAL STENT, PACEMAKER) Section: Yes (x1) Cholecystectomy: Yes Ear Surgery: No Endocrine Surgery: No Eye Surgery: No Genitourinary Surgery: No Hysterectomy: No Insulin Pump: No Joint Replacement: No Neurologic Surgery: No Oral Surgery: Yes Pacemaker: Yes (ST JUDES) Thoracic Surgery: No Tonsillectomy: Yes Other Surgery: Yes (LEG STENTS, PORT PLACED- RIGHT 2015) Social History Alcohol Use: No Tobacco Use: No Substance Use: No Allergies-Medications (Allergen,Severity, Reaction): Coded Allergies: Compazine (Verified Allergy, Severe, 01/11/17) ANXIETY Ultram (Verified Allergy, Intermediate, Rash, 01/11/17) MRI PRECAUTION (Verified Adverse Reaction, Severe, PACEMAKER IS NOT A BIOTRONIK OR MEDTRONIC 06/15/16 KMD, 01/11/17) PACEMAKER IS NOT A BIOTRONIK OR MEDTRONIC CONDITIONAL PACEMAKER. CALLED BOTH COMPANIES TO CONFIRM. Percocet (Verified Adverse Reaction, Severe, Nausea/Vomiting, 01/11/17) *MDRO Multi-Drug Resistant Organism (Verified Adverse Reaction, Unknown, ESBL, MRSA, 01/11/17) E. coli ESBL (urine) - 2012, 2013, 2014, 04/2016 MRSA - 2003, 03/2015 (toe wound), 10/2015 (arm/back wound), (foot-08/17/16) Metformin (Verified Adverse Reaction, Unknown, DIARRHEA, 01/11/17) Morphine (Verified Adverse Reaction, Unknown, Dizziness, 01/11/17) states doesn't want-does not like the way it makes me feel Reported Meds & Prescriptions Reported Meds & Active Scripts Active Bactrim DS (Sulfamethoxazole-Trimethoprim) 800-160 Mg Tab 1 Tab PO BID Januvia (Sitagliptin Phosphate) 100 Mg Tab 100 Mg PO DAILY Sodium Chloride 1 Gm Tab 1 Gm PO BID Levemir Inj (Insulin Detemir) 1,000 unit/ 10 ML Vial 5 Units SQ BID Do not mix with any other Insulin. Glucerna Shake (Nutritional Supplements) 1 Liq Liq 1 Can PO TIDAC Imodium A-D (Loperamide HCl) 2 Mg Cap 2 Mg PO Q6H PRN Reported [Inhaler] 1-2 Puff INH Q6HR PRN Tylenol Pm Extra Strength (Diphenhydramine-Acetaminophen) 25-500 Mg Tab 1 Tab PO HS PRN Gabapentin 400 Mg Cap 800 Mg PO BID Review of Systems Except as stated in HPI: all other systems reviewed are Neg General / Constitutional: No: Fever, Chills HENT: No: Headaches Cardiovascular: No: Chest Pain or Discomfort Respiratory: No: Shortness of Breath Gastrointestinal: No: Nausea, Vomiting, Diarrhea, Abdominal Pain Musculoskeletal: Positive: Edema, No: Myalgias, Pain Skin: Positive Change in Pigmentation, Positive Lesions Physical Exam Narrative GENERAL: Well-developed, well-nourished, alert female. Resting comfortably in no acute distress. SKIN: Warm and dry. Blistering noted to the right first toe on the plantar aspect as well as the right foot on the medial/plantar aspect. Erythema, edema noted to right foot. Serous drainage noted HEAD: Atraumatic. Normocephalic. EYES: Pupils equal and round. No scleral icterus. No injection or drainage. ENT: No nasal bleeding or discharge. Mucous membranes pink and moist. NECK: Trachea midline. No JVD. CARDIOVASCULAR: Regular rate and rhythm. No murmur appreciated. RESPIRATORY: No accessory muscle use. Clear to auscultation. Breath sounds equal bilaterally. GASTROINTESTINAL: Abdomen soft, non-tender, nondistended. Hepatic and splenic margins not palpable. MUSCULOSKELETAL: No obvious deformities. No clubbing. No cyanosis. NEUROLOGICAL: Awake and alert. No obvious cranial nerve deficits. Motor grossly within normal limits. Normal speech. Significantly decreased sensation in bilateral lower extremities. Positive pedal pulses, brisk capillary refill. PSYCHIATRIC: Appropriate mood and affect; insight and judgment normal. Data Data Last Documented VS Vital Signs Date Time Temp Pulse Resp B/P Pulse Ox O2 Delivery O2 Flow Rate FiO2 01/11/17 10:08 98.1 92 16 129/67 99 Room Air Orders Complete Blood Count With Diff (01/11/17 11:24) Wound Culture And Gram Stain (01/11/17 11:24) Comprehensive Metabolic Panel (01/11/17 11:24) C-Reactive Protein (Crp) (01/11/17 11:24) Westergren Sedimentation Rate (01/11/17 11:24) Act Partial Throm Time (Ptt) (01/11/17 11:24) Prothrombin Time / Inr (Pt) (01/11/17 11:24) Foot, Complete ([id number]) (01/11/17 ) Labs Laboratory Tests Test 01/11/17 01/11/17 11:44 11:47 Erythrocyte Sedimentation Rate 60 mm/hr White Blood Count 4.8 TH/MM3 Red Blood Count 3.78 MIL/MM3 Hemoglobin 11.5 GM/DL Hematocrit 33.6 % Mean Corpuscular Volume 89.0 FL Mean Corpuscular Hemoglobin 30.5 PG Mean Corpuscular Hemoglobin 34.3 % Concent Red Cell Distribution Width 13.1 % Platelet Count 235 TH/MM3 Mean Platelet Volume 8.1 FL Neutrophils (%) (Auto) 70.0 % Lymphocytes (%) (Auto) 20.0 % Monocytes (%) (Auto) 8.2 % Eosinophils (%) (Auto) 1.4 % Basophils (%) (Auto) 0.4 % Neutrophils # (Auto) 3.4 TH/MM3 Lymphocytes # (Auto) 1.0 TH/MM3 Monocytes # (Auto) 0.4 TH/MM3 Eosinophils # (Auto) 0.1 TH/MM3 Basophils # (Auto) 0.0 TH/MM3 CBC Comment DIFF FINAL Differential Comment Prothrombin Time 10.3 SEC Prothromb Time International 0.9 RATIO Ratio Activated Partial 22.5 SEC Thromboplast Time Sodium Level 136 MEQ/L Potassium Level 4.2 MEQ/L Chloride Level 97 MEQ/L Carbon Dioxide Level 34.0 MEQ/L Anion Gap 5 MEQ/L Blood Urea Nitrogen 12 MG/DL Creatinine 0.77 MG/DL Estimat Glomerular Filtration 79 ML/MIN Rate Random Glucose 326 MG/DL Calcium Level 9.7 MG/DL Total Bilirubin 0.2 MG/DL Aspartate Amino Transf 8 U/L (AST/SGOT) Alanine Aminotransferase 17 U/L (ALT/SGPT) Alkaline Phosphatase 114 U/L C-Reactive Protein LESS THAN 0.29 MG/DL Total Protein 7.6 GM/DL Albumin 3.4 GM/DL MDM Medical Decision Making Medical Screen Exam Complete: Yes Emergency Medical Condition: Yes Interpretation(s) Vital Signs Date Time Temp Pulse Resp B/P Pulse Ox O2 Delivery O2 Flow Rate FiO2 01/11/17 10:08 98.1 92 16 129/67 99 Room Air Differential Diagnosis Burn versus cellulitis versus osteomyelitis versus necrotizing fasciitis versus other Narrative Course Patient is a 51-year-old female presenting to the emergency department evaluation of blistering to her right foot that started 2 days ago spontaneously. The blisters have been draining serous fluid. Patient's vital signs are stable, she denies pain secondary to neuropathy. Labs and imaging ordered and pending. Wound culture obtained in triage. Workup initiated, care of patient will be transferred to provider when a medical bed is available. Scripts Sulfamethoxazole-Trimethoprim (Bactrim DS)800-160 Mg Tab1 Tab PO BID #14 TAB Prov:Robles Gardiner MD 01/11/17 Rochelle Wang Jan 11, 2017 11:27
[2017-01-11 12:06] LABS: AUTOMATED NEUTROPHIL # 3.4 TH/MM3 (1.8-7.7); BASOPHIL % 0.4 % (0.0-2.0); EOSINOPHIL # 0.1 TH/MM3 (0-0.4); EOSINOPHIL % 1.4 % (0.0-4.0); HEMATOCRIT 33.6 % (35.0-46.0); HEMO FLAGS DIFF FINAL; MEAN CORPUSCULAR HEMOGLOBIN 30.5 PG (27.0-34.0); MEAN CORPUSCULAR HGB CONC 34.3 % (32.0-36.0); MONO % 8.2 % (0.0-8.0); PLATELET COUNT 235 TH/MM3 (150-450); RED BLOOD COUNT 3.78 MIL/MM3 (4.00-5.30); RED CELL DISTRIBUTION WIDTH 13.1 % (11.6-17.2); WHITE BLOOD COUNT 4.8 TH/MM3 (4.0-11.0)
[2017-01-11 12:10] LABS: APTT (PATIENT) 22.5 SEC (24.3-30.1); INTERNATIONAL NORMALIZED RATIO 0.9 RATIO; PROTHROMBIN TIME - PATIENT 10.3 SEC (9.8-11.6)
--- NOTE | 2017-01-11 12:14 | RADRPT ---
EXAM DATE/TIME: 01/11/2017 11:37 [facility] COMPARISON: FOOT RIGHT COMPLETE ([id number]), June 15, 2016, 9:46. INDICATIONS : Blisters on the bottom of foot MEDICAL HISTORY : Diabetes mellitus type I. SURGICAL HISTORY : None. ENCOUNTER: Initial ACUITY: 4 - 6 days PAIN SCORE: 2/10 LOCATION: chest FINDINGS: Previous resection of the fifth toe and distal fifth metatarsal again noted. Remaining bones show no acute fracture, subluxation or perceptible bone destruction. Chronic mild soft tissue calcification s een in the first, second and third interspaces, nonspecific. Second through fourth hammertoe noted. T here is mild osteoarthritis of the talonavicular and navicular/cuneiform joints. Radiographically, soft tissues appear diffusely swollen. No discrete ulcer seen. No radiopaque foreig n body seen. There is a moderate-sized heel spur. CONCLUSION: Surgical and chronic findings. Nonspecific soft tissue swelling. No acute bony abnormality demonstrat ed. Rc Oreilly MD on January 11, 2017 at 12:10 Board Certified Radiologist. This report was verified electronically.
[2017-01-11 12:15] LABS: ALT (GPT) 17 U/L (10-53); ANION GAP 5 MEQ/L (5-15); AST (GOT) 8 U/L (15-37); BLOOD UREA NITROGEN 12 MG/DL (7-18); CHLORIDE 97 MEQ/L (98-107); GLOMERULAR FILTRATION RATE 79 ML/MIN (>89); POTASSIUM 4.2 MEQ/L (3.5-5.1); SODIUM (NA) 136 MEQ/L (136-145)
[2017-01-11 12:18] LABS: ALKALINE PHOSPHATASE 114 U/L (45-117); TOTAL BILIRUBIN ADULT 0.2 MG/DL (0.2-1.0)
[2017-01-11] MEDS ORDERED: INHALER INH (13:19)
[2017-01-11] MEDS ORDERED: BACT800T5 PO (13:22)
--- NOTE | 2017-01-11 13:22 | PD ---
Physical Exam Narrative Patient was seen and examined with my escrow assistant. Data Data Last Documented VS Vital Signs Date Time Temp Pulse Resp B/P Pulse Ox O2 Delivery O2 Flow Rate FiO2 01/11/17 10:08 98.1 92 16 129/67 99 Room Air Orders Complete Blood Count With Diff (01/11/17 11:24) Wound Culture And Gram Stain (01/11/17 11:24) Comprehensive Metabolic Panel (01/11/17 11:24) C-Reactive Protein (Crp) (01/11/17 11:24) Westergren Sedimentation Rate (01/11/17 11:24) Act Partial Throm Time (Ptt) (01/11/17 11:24) Prothrombin Time / Inr (Pt) (01/11/17 11:24) Foot, Complete ([id number]) (01/11/17 ) Labs Laboratory Tests Test 01/11/17 01/11/17 11:44 11:47 Erythrocyte Sedimentation Rate 60 mm/hr White Blood Count 4.8 TH/MM3 Red Blood Count 3.78 MIL/MM3 Hemoglobin 11.5 GM/DL Hematocrit 33.6 % Mean Corpuscular Volume 89.0 FL Mean Corpuscular Hemoglobin 30.5 PG Mean Corpuscular Hemoglobin 34.3 % Concent Red Cell Distribution Width 13.1 % Platelet Count 235 TH/MM3 Mean Platelet Volume 8.1 FL Neutrophils (%) (Auto) 70.0 % Lymphocytes (%) (Auto) 20.0 % Monocytes (%) (Auto) 8.2 % Eosinophils (%) (Auto) 1.4 % Basophils (%) (Auto) 0.4 % Neutrophils # (Auto) 3.4 TH/MM3 Lymphocytes # (Auto) 1.0 TH/MM3 Monocytes # (Auto) 0.4 TH/MM3 Eosinophils # (Auto) 0.1 TH/MM3 Basophils # (Auto) 0.0 TH/MM3 CBC Comment DIFF FINAL Differential Comment Prothrombin Time 10.3 SEC Prothromb Time International 0.9 RATIO Ratio Activated Partial 22.5 SEC Thromboplast Time Sodium Level 136 MEQ/L Potassium Level 4.2 MEQ/L Chloride Level 97 MEQ/L Carbon Dioxide Level 34.0 MEQ/L Anion Gap 5 MEQ/L Blood Urea Nitrogen 12 MG/DL Creatinine 0.77 MG/DL Estimat Glomerular Filtration 79 ML/MIN Rate Random Glucose 326 MG/DL Calcium Level 9.7 MG/DL Total Bilirubin 0.2 MG/DL Aspartate Amino Transf 8 U/L (AST/SGOT) Alanine Aminotransferase 17 U/L (ALT/SGPT) Alkaline Phosphatase 114 U/L C-Reactive Protein LESS THAN 0.29 MG/DL Total Protein 7.6 GM/DL Albumin 3.4 GM/DL [facility] Supervised Visit with DARIAN: Yes Interpretation(s) Last Impressions Foot X-Ray 01/11/17 0000 Signed Impressions: Service Date/Time: Wednesday, January 11, 2017 11:37 - CONCLUSION: Surgical and chronic findings. Nonspecific soft tissue swelling. No acute bony abnormality demonstrated. Rc Oreilly MD 1319 p.m. CBC within normal limit. CMP within normal limit. Glucose 326. Narrative Course The blister of the right foot was debrided. Polysporin ointment with dressing applied. Procedures Procedure Narrative The blisters of the right foot was debrided. Polysporin ointment with dressing applied. Diagnosis Primary Impression: Second degree burn of right foot Qualified Code: T25.221A - Second degree burn of right foot, initial encounter Patient Instructions: General Instructions Additional Instruction: Wound care daily. Bactrim DS as directed. Follow-up with personal physician in 2 days. Return if increasing redness swelling. Med/Other Pt SpecificInfo: Prescription(s) given Scripts Sulfamethoxazole-Trimethoprim (Bactrim DS)800-160 Mg Tab1 Tab PO BID #14 TAB Prov:Robles Gardiner MD 01/11/17 Disposition: 01 DISCHARGE HOME Condition: Stable Robles Gardiner MD Jan 11, 2017 13:22
--- NOTE | 2017-01-24 11:32 | PD ---
Physical Exam Narrative This is an addendum and correction to previous dictation. Patient's blister is not secondary to burn. Most likely stress blister. Data Data Orders Complete Blood Count With Diff (01/11/17 11:24) Wound Culture And Gram Stain (01/11/17 11:24) Comprehensive Metabolic Panel (01/11/17 11:24) C-Reactive Protein (Crp) (01/11/17 11:24) Westergren Sedimentation Rate (01/11/17 11:24) Act Partial Throm Time (Ptt) (01/11/17 11:24) Prothrombin Time / Inr (Pt) (01/11/17 11:24) Foot, Complete ([id number]) (01/11/17 ) MDM Supervised Visit with DARIAN: Yes Narrative Course Patient has stress blister to the right foot. Is not secondary to a burn. Diagnosis Primary Impression: Second degree burn of right foot Qualified Code: T25.221A - Second degree burn of right foot, initial encounter Additional Impression: Blister (nonthermal), right foot, initial encounter Patient Instructions: General Instructions Departure Forms: Tests/Procedures Additional Instruction: Wound care daily. Bactrim DS as directed. Follow-up with personal physician in 2 days. Return if increasing redness swelling. Disposition: 01 DISCHARGE HOME Condition: Stable Robles Gardiner MD Jan 24, 2017 11:32
[2017-01-26] MEDS ORDERED: EXENINJ SQ (10:55)
[2017-02-08] MEDS ORDERED: GABA400C5 PO (11:21)
[2017-02-22] MEDS ORDERED: ATOR20TA15 PO (11:12)
[2017-02-22] MEDS ORDERED: EXENINJ SQ (11:14)
[2017-02-22] MEDS ORDERED: MIDO5TAB PO (11:16)
[2017-02-22] MEDS ORDERED: SODI1TAB PO (11:16)
[2017-02-22] MEDS ORDERED: ONDA4TAB6 PO (11:17)
[2017-03-02] MEDS ORDERED: LEVA750T PO (14:35)
[2017-03-02] MEDS ORDERED: BACT800T5 PO (14:36)
[2017-03-21] MEDS ORDERED: GABA400C5 PO (10:02)
[2017-03-21] MEDS ORDERED: LACTPOW68 PO (10:11)
[2017-04-04] MEDS ORDERED: LEVO500T8 PO (11:34)
[2017-04-04] MEDS ORDERED: CLIN1CAP6 PO (11:34)
[2017-04-11] MEDS ORDERED: GLIP1TAB49 PO (11:05)
[2017-05-01] MEDS ORDERED: GABA400C5 PO (10:08)
[2017-05-01] MEDS ORDERED: MIDO5TAB PO (10:08)
[2017-05-01] MEDS ORDERED: SODI1TAB PO (10:09)
== END 2017-01-11 13:39 | disposition home or self-care (01) ==
LOC: NETRI 10:03 → NEPB 13:39
DX: S90.421A Blister (nonthermal), right great toe, initial encounter (principal); B95.62 Methicillin resistant Staphylococcus aureus infection as the cause of diseases classified elsewhere; E11.40 Type 2 diabetes mellitus with diabetic neuropathy, unspecified; I10 Essential (primary) hypertension; E78.1 Pure hyperglyceridemia; X58.XXXA Exposure to other specified factors, initial encounter; Z79.4 Long term (current) use of insulin; Z79.82 Long term (current) use of aspirin; Z86.69 Personal history of other diseases of the nervous system and sense organs; Z87.09 Personal history of other diseases of the respiratory system; Z86.79 Personal history of other diseases of the circulatory system; Z87.19 Personal history of other diseases of the digestive system; Z87.448 Personal history of other diseases of urinary system; Z87.39 Personal history of other diseases of the musculoskeletal system and connective tissue
CPT/HCPCS: 73630; 80053; 85025; 85610; 85652; 85730; 86140; 86403; 87070; 87186; 87205; 99283

== ENCOUNTER 2017-01-16 16:25 | Inpatient (IN) | payer MEDICARE, OTHER ==
[~2017-01-16] VITALS: Ht 172.7 cm; Wt 78.9 kg
[~2017-01-16 16:25] MED LIST changes: +BACT800T5 PO; -GLUCKIT15; -GLUCTES12; +INHALER INH; -INSU1MIS15; -LANCETS1 MI1; -MIDO10TA PO; -PROM25TA5 PO; -WALKER WHEELS/F1 MIS; -ZOFR8TAB PO
[2017-01-16 17:35] VITALS: BP 115/73; PULSE 93; RESP 20; TEMP 98.3; O2SAT 99
[2017-01-16] MEDS ORDERED: LORazepam 2 MG/ML VIAL IVS PRN (18:00)
--- NOTE | 2017-01-16 19:32 | HHI.HP ---
[facility] Service Family Medicine Primary Care Physician Janice Barker MD Admission Diagnosis Diagnoses: International Travel<30 Days: No Contact w/Intl Traveler<30days: No Known Affected Area: No History of Present Illness Patient is a 51-year-old female, with a significant past medical history of uncontrolled type 2 diabetes mellitus, hypertension, diabetic foot infections, hepatitis C, asthma, and osteoarthritis, who presents with worsening right big toe ulceration and erythema. History of present illness: She reports that the area under her big toe on her right foot has gotten increasingly erythematous, and has started to drain purulent material. She denies any foul smell. She denies any pain, although has no feeling in her feet. She is not able to control her blood glucose at home, and is out of insulin needles. She denies any fevers or chills. She denies any shortness of breath or chest pain. She denies any headaches or change in her vision. She was recently admitted on January 11, 2017 for a MRSA infection of her lower extremities. 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 History (1 miscarriage) x 1, x 1 Age at menstruation: 13 Surgical History Cholecystectomy Appendectomy Tonsillectomy Right 5th digit amputation Pacemaker placement Left femoral stent Family History Mother: but unsure of medical history Father: , heart disease Sister: CAD Two healthy children (son and daughter) History of cancers in the family but unsure of who or what kind Social History Lives with boyfriend and roommate Unemployed, disabled High school education EtOH: denies Tobacco: quit in 2003, smoked about 1/2 PPD x 14 years prior to quitting Illicit drugs: denies Health Maintenance Flu vaccine: October 2015 Pneumonia vaccine: unsure TDAP: cannot recall last Eye exam: 2014 Mammogram: August 2011 Pap: cannot recall Specialists Podiatry - Dr. 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 [place] Oncologist - Dr. Umanzor Allergies: Coded Allergies: Compazine (Verified Allergy, Severe, 01/16/17) ANXIETY Ultram (Verified Allergy, Intermediate, Rash, 01/16/17) MRI PRECAUTION (Verified Adverse Reaction, Severe, PACEMAKER IS NOT A BIOTRONIK OR MEDTRONIC 06/15/16 KMD, 01/16/17) PACEMAKER IS NOT A BIOTRONIK OR MEDTRONIC CONDITIONAL PACEMAKER. CALLED BOTH COMPANIES TO CONFIRM. Percocet (Verified Adverse Reaction, Severe, Nausea/Vomiting, 01/16/17) *MDRO Multi-Drug Resistant Organism (Verified Adverse Reaction, Unknown, ESBL, MRSA, 01/16/17) E. coli ESBL (urine) - 2012, 2013, 2014, 04/2016 MRSA - 2003, 03/2015 (toe wound), 10/2015 (arm/back wound), (foot-08/17/16 & 01/11/17) Metformin (Verified Adverse Reaction, Unknown, DIARRHEA, 01/16/17) Morphine (Verified Adverse Reaction, Unknown, Dizziness, 01/16/17) states doesn't want-does not like the way it makes me feel Physical Exam Vital Signs Vital Signs Date Time Temp Pulse Resp B/P Pulse Ox O2 Delivery O2 Flow Rate FiO2 01/16/17 17:35 98.3 93 20 115/73 99 Physical Exam GENERAL: This is a well-nourished, well-developed patient, in no apparent distress. SKIN: No rashes, ecchymoses or lesions. Cool and dry. HEAD: Atraumatic. Normocephalic. No temporal or scalp tenderness. EYES: Pupils equal round and reactive. Extraocular motions intact. No scleral icterus. No injection or drainage. ENT: Nose without bleeding, purulent drainage or septal hematoma. Throat without erythema, tonsillar hypertrophy or exudate. Uvula midline. Airway patent. NECK: Trachea midline. No JVD or lymphadenopathy. Supple, nontender, no meningeal signs. CARDIOVASCULAR: Regular rate and rhythm without murmurs, gallops, or rubs. RESPIRATORY: Clear to auscultation. Breath sounds equal bilaterally. No wheezes , rales, or rhonchi. GASTROINTESTINAL: Abdomen soft, non-tender, nondistended. No hepato-splenomegaly , or palpable masses. No guarding. MUSCULOSKELETAL: Extremities without clubbing, cyanosis, or edema. No joint tenderness, effusion, or edema noted. No calf tenderness. Negative Homans sign bilaterally. NEUROLOGICAL: Awake and alert. Cranial nerves II through XII intact. Motor and sensory grossly within normal limits. Five out of 5 muscle strength in all muscle groups. Normal speech. Septic Shock Reassessment Heart: Regular rate and rhythm Lungs: Clear Skin: Warm Peripheral Pulses: Bounding Right Radial Bounding Left Radial Assessment and Plan Assessment and Plan Mrs. Arechiga is a pleasant 51 y/o Caucasion female witha significant PMHx for IDDM , htn, asthma, hep c, recurrent diabetic foot infections, who presents with worsening ulceration to her right big toe. She was sent directly to [facility] from our clinic for concern regarding new foot ulceration. #1: Foot wound Broad-spectrum antibiotics to cover for pseudomonas as well as MRSA. MRSA did grow out on a wound from 01/11/2017. It was susceptible to vancomycin. -Vancomycin 1, 250 mg every 12 hours -Zosyn 4.5 g every 8 hours Consult podiatry, appreciate their assistance. Wound cultures Blood cultures X-ray of right foot Vitals every 4 hours Blood sugar control as below #2: Insulin-dependent diabetes mellitus Blood glucose on admission was 237, will continue with Levemir 10 units twice a day, and NovoLog insulin sliding scale. Diabetic diet. Gabapentin 800 mg twice a day. Januvia 100 mg daily. #3: FEN Fluids: tolerating PO Electrolytes: WNL, continue to monitor replace as needed. Nutrition: ADA diet [address] Moreno and Dr. Herrera. Code Status Full Code. Problem List: (1) Cancer of neck Status: Acute (2) Hepatitis C Status: Chronic (3) Orthostatic hypotension Status: Acute (4) Essential hypertension Status: Chronic (5) Diabetic foot infection Status: Chronic (6) DM (diabetes mellitus) Status: Chronic (7) Non compliance w medication regimen Status: Acute (8) Amputated toe of right foot Status: Chronic Physician Certification 2 Midnight Certification Type: Admission for Inpatient Services Order for Inpatient Services The services are ordered in accordance with Medicare regulations or non- Medicare payer requirements, as applicable. In the case of services not specified as inpatient-only, they are appropriately provided as inpatient services in accordance with the 2-midnight benchmark. Estimated LOS (days): 2 2 days is the estimated time the patient will need to remain in the hospital, assuming treatment plan goals are met and no additional complications. Post-Hospital Plan: Home Jarret Dietz MD R2 Jan 16, 2017 19:32
[2017-01-16] MEDS ORDERED: LOPERAMIDE HCL 2 MG CAP PO PRN (19:45)
[2017-01-16 20:31] LABS: AUTOMATED NEUTROPHIL # 2.4 TH/MM3 (1.8-7.7); BASOPHIL % 0.8 % (0.0-2.0); EOSINOPHIL # 0.1 TH/MM3 (0-0.4); EOSINOPHIL % 1.5 % (0.0-4.0); HEMATOCRIT 30.7 % (35.0-46.0); HEMO FLAGS DIFF FINAL; LYMPH % 22.9 % (9.0-44.0); LYMPHOCYTE # 0.9 TH/MM3 (1.0-4.8); MEAN CELL VOLUME 88.5 FL (80.0-100.0); MEAN CORPUSCULAR HEMOGLOBIN 30.7 PG (27.0-34.0); MEAN CORPUSCULAR HGB CONC 34.6 % (32.0-36.0); NEUT % 61.8 % (16.0-70.0); PLATELET COUNT 278 TH/MM3 (150-450); RED BLOOD COUNT 3.47 MIL/MM3 (4.00-5.30); RED CELL DISTRIBUTION WIDTH 12.9 % (11.6-17.2); WHITE BLOOD COUNT 3.8 TH/MM3 (4.0-11.0)
[2017-01-16 20:47] LABS: POTASSIUM 3.8 MEQ/L (3.5-5.1)
--- NOTE | 2017-01-16 21:13 | RADRPT ---
EXAM DATE/TIME: 01/16/2017 20:49 [facility] COMPARISON: FOOT RIGHT COMPLETE ([id number]), January 11, 2017, 11:37. INDICATIONS : Right foot pain and blisters on the bottom of foot. MEDICAL HISTORY : Diabetes mellitus type I. SURGICAL HISTORY : Right foot, fifth distal metatarsal surgery. ENCOUNTER: Subsequent ACUITY: 1 week PAIN SCORE: 2/10 LOCATION: Right foot FINDINGS: AP, lateral and oblique views of the right foot were obtained and demonstrate that the patient is aga in noted to be status post amputation of the fifth digit down to the level of the distal metatarsal. There is no destructive change or periosteal new bone formation. Mild osteoarthritic changes are note d. There is soft tissue prominence over the dorsum of the midfoot with no radiopaque foreign body. Va scular calcifications are present. A moderate sized spur is noted off the inferior calcaneus at the s ite of attachment of the plantar aponuerosis. CONCLUSION: 1. Soft tissue prominence over the dorsum of the midfoot with no evidence of fracture or underlying b linda abnormality. 2. Status post remote amputation of the fifth digit. 3. Moderate sized spur of the inferior calcaneus. Lai Elmore MD on January 16, 2017 at 21:10 Board Certified Radiologist. This report was verified electronically.
[2017-01-16] MEDS ORDERED: GLUCAGON 1 MG/ML VIAL OTHER PRN (21:15)
[2017-01-16] MEDS ORDERED: DEXTROSE 50% IN WATER 50 ML VIAL(D50) IV PUSH PRN (21:15)
[2017-01-16] MEDS: PIPERACIL-TAZO 4.5 GM PREMIX 100 ML IV SCH (21:23)
[2017-01-16] MEDS: GABAPENTIN 400 MG CAP PO SCH (21:24)
[2017-01-16] MEDS: INSULIN ASPART SUPPLEMENTAL SCALE SQ SCH (21:24)
[2017-01-16] MEDS: INSULIN DETEMIR 100 UNITS/ML VIAL SQ SCH (21:24)
[2017-01-16] MEDS: diphenhydrAMINE HCL 25 MG CAP PO PRN (21:24)
[2017-01-16] MEDS: VANCOMYCIN INJ 1,250 MG in SODIUM CHLOR 0.9% 250 ML INJ 250 ML IV SCH (22:30)
[2017-01-17] MEDS: PIPERACIL-TAZO 4.5 GM PREMIX 100 ML IV SCH ×3 (05:05→20:32)
[2017-01-17 05:21] LABS: AUTOMATED NEUTROPHIL # 2.1 TH/MM3 (1.8-7.7); BASOPHIL % 0.6 % (0.0-2.0); EOSINOPHIL # 0.1 TH/MM3 (0-0.4); EOSINOPHIL % 2.1 % (0.0-4.0); HEMATOCRIT 28.3 % (35.0-46.0); HEMO FLAGS DIFF FINAL; LYMPH % 22.9 % (9.0-44.0); LYMPHOCYTE # 0.8 TH/MM3 (1.0-4.8); MEAN CELL VOLUME 88.1 FL (80.0-100.0); MEAN CORPUSCULAR HEMOGLOBIN 30.3 PG (27.0-34.0); MEAN CORPUSCULAR HGB CONC 34.3 % (32.0-36.0); MONO % 13.3 % (0.0-8.0); NEUT % 61.1 % (16.0-70.0); PLATELET COUNT 249 TH/MM3 (150-450); RED BLOOD COUNT 3.22 MIL/MM3 (4.00-5.30); RED CELL DISTRIBUTION WIDTH 12.8 % (11.6-17.2); WHITE BLOOD COUNT 3.4 TH/MM3 (4.0-11.0)
[2017-01-17 05:47] VITALS: BP 104/60; PULSE 90; RESP 18; TEMP 98.1; O2SAT 95
[2017-01-17 05:51] LABS: BICARBONATE 32.6 MEQ/L (21.0-32.0); POTASSIUM 3.7 MEQ/L (3.5-5.1)
[2017-01-17] MEDS: INSULIN ASPART SUPPLEMENTAL SCALE SQ SCH ×4 (06:50→20:34)
[2017-01-17] MEDS ORDERED: NUTRITIONAL SUPPLEMENTS PO SCH (08:00)
[2017-01-17] MEDS: INSULIN DETEMIR 100 UNITS/ML VIAL SQ SCH ×2 (08:54→20:34)
[2017-01-17] MEDS: GABAPENTIN 400 MG CAP PO SCH ×2 (08:54→20:33)
[2017-01-17] MEDS: VANCOMYCIN INJ 1,250 MG in SODIUM CHLOR 0.9% 250 ML INJ 250 ML IV SCH ×2 (08:55→20:32)
[2017-01-17 13:15] VITALS: BP 128/70; PULSE 89; RESP 18; O2SAT 95
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
[2017-01-17 17:54] VITALS: BP 114/67; PULSE 93
[2017-01-17 18:30] VITALS: BP 157/83; PULSE 101; RESP 20; TEMP 98.7; O2SAT 97
[2017-01-17 20:00] VITALS: BP 129/67; PULSE 98; RESP 18; TEMP 99.1; O2SAT 95
[2017-01-17] MEDS: ACETAMINOPHEN 500 MG CPLT PO PRN (21:49)
[2017-01-17] MEDS: diphenhydrAMINE HCL 25 MG CAP PO PRN (21:50)
[2017-01-18] VITALS (8 sets, daily range): BP systolic 66–125; BP diastolic 44–79; PULSE 84–99; RESP 18; TEMP 97.4–99.6; O2SAT 93–99
[2017-01-18] MEDS: PIPERACIL-TAZO 4.5 GM PREMIX 100 ML IV SCH ×3 (04:38→21:48)
[2017-01-18] MEDS: INSULIN ASPART SUPPLEMENTAL SCALE SQ SCH ×4 (06:18→21:52)
--- NOTE | 2017-01-18 09:42 | HHI.FPPN ---
Subjective Remarks Patient seen this morning. No acute events overnight. Vitals significant for BPs on the lower end (MAP 70s). Jaqueline does c/o some dizziness today, especially when she gets up to walk. She wants to work with PT. Ultimately, goal is to walk independently. She also would like to take a shower today. No other complaints. Denies any pain. No fever or chills. Tolerating a PO diet. No N/V. (Tavares Moreno MD R3) Objective Vitals Vital Signs Date Time Temp Pulse Resp B/P Pulse Ox O2 Delivery O2 Flow Rate FiO2 01/18/17 04:00 99.6 95 18 99/57 96 01/18/17 00:00 99.4 89 18 117/62 95 01/17/17 20:00 99.1 98 18 129/67 95 01/17/17 18:30 98.7 101 20 157/83 97 01/17/17 17:54 93 114/67 01/17/17 13:15 89 18 128/70 95 I/O 01/17/17 01/17/17 01/17/17 01/18/17 01/18/17 01/18/17 07:00 15:00 23:00 07:00 15:00 23:00 Intake Total 1600 ml 480 ml Output Total 300 ml 300 ml Balance 1300 ml 480 ml -300 ml Intake Oral 1300 ml 480 ml IV Total 300 ml Output Urine Total 300 ml 300 ml # Voids 2 1 # Bowel Movements 1 1 (Tavares Moreno MD R3) Result Diagram: 01/17/17 0507 01/17/17 0507 Objective Remarks GENERAL: This is a well-nourished, well-developed patient, in no apparent distress. She looks much "brighter" off chemo and can stand up better without severe orthostasis compared to the last times she was in the hospital SKIN: No rashes, ecchymoses or lesions. Cool and dry. CARDIOVASCULAR: Regular rate and rhythm without murmurs, gallops, or rubs. RESPIRATORY: Clear to auscultation. Breath sounds equal bilaterally. No wheezes , rales, or rhonchi. GASTROINTESTINAL: Abdomen soft, non-tender, nondistended. No hepato-splenomegaly , or palpable masses. No guarding. MUSCULOSKELETAL: Extremities without clubbing, cyanosis, or edema. No joint tenderness, effusion, or edema noted. No calf tenderness. Negative Homans sign bilaterally. Right foot is wrapped in gauze dressing. Not examined today. No purulent drainage noted. NEUROLOGICAL: Awake and alert. (Tavares Moreno MD R3) A/P Assessment and Plan Mrs. Arechiga is a pleasant 51 y/o Caucasion female with a significant PMHx for IDDM, htn, asthma, hep c, cancer base of tongue and many problems and complications related to that, recurrent diabetic foot infections, who presents with worsening ulceration to her right big toe. She was sent directly to [facility] from our clinic for concern regarding new foot ulceration. Discharge Planning Needs at least 2-3 more days in the hospital. Podiatry plans to monitor for the next 1-2 days. Seen and discussed with Dr. Herrera (Tavares Moreno MD R3) Attending Attestation Patient seen and examined. Case reviewed and discussed with the resident team. Agree with plan of care as discussed with me and documented in the resident note. (Felicia Herrera MD) Problem List: (1) Diabetic foot infection Status: Chronic Plan: Broad-spectrum antibiotics to cover for pseudomonas as well as MRSA. MRSA did grow out on a wound from 01/11/2017. It was susceptible to vancomycin. -Vancomycin 1, 250 mg every 12 hours (01/16-) -Zosyn 4.5 g every 8 hours (01/16-) -Podiatry consulted. Appreciate recs. Monitor next 1-2 days. Likely needs debridement after that. -Wound culture 01/16 positive for MRSA -Blood cultures 01/16 NGTD -X-ray of right foot negative -Vitals every 4 hours -Blood sugar control as below (2) DM (diabetes mellitus) Status: Chronic Plan: Well controlled. Sugars in the 100s. 1 u ss requirement over the past 24 hours. -Diabetic diet. -Gabapentin 800 mg twice a day. -levemir 10 u BID with ss insulin -Januvia 100 mg daily. (3) Cancer of neck Status: Chronic Plan: had multiple problems and complications related to chemo and radiation but is much better now and only vomited once in the past 2 weeks (4) Orthostatic hypotension Status: Chronic Plan: she had orthostatic hypotension related to her cancer treatments but seems to have some improvement now. will recheck orthostatics just to see how she is now and if she can get more PT. She was wheelchair bound with all her falls. Will consult PT as well. Restart midodrine. (5) Essential hypertension Status: Chronic Plan: could not tolerate BP meds with her severe orthostatic hypotension leading to syncope. (6) Nutrition, metabolism, and development symptoms Status: Acute Plan: Diet: diabetic Fluids: SLIV DVT ppx: not indicated, patient ambulatory (Tavares Moreno MD R3) Problem Qualifiers (1) DM (diabetes mellitus): Qualified Code: E11.621 - Type 2 diabetes mellitus with foot ulcer, unspecified detention insulin use status Tavares Moreno MD R3 Jan 18, 2017 09:42 Felicia Herrera MD Jan 18, 2017 15:12
[2017-01-18] MEDS ORDERED: PNEUMOCOCCAL POLYVALENT INJ 25 MCG/0.5 ML SYR IM ONE (10:00)
[2017-01-18] MEDS ORDERED: INFLUENZA VIRUS VACCINE (QUADRIVALENT) 0.5 ML SYR IM ONE (10:00)
[2017-01-18] MEDS: VANCOMYCIN INJ 1,250 MG in SODIUM CHLOR 0.9% 250 ML INJ 250 ML IV SCH ×2 (10:18→21:47)
[2017-01-18] MEDS: GABAPENTIN 400 MG CAP PO SCH ×2 (10:18→21:48)
[2017-01-18] MEDS: INSULIN DETEMIR 100 UNITS/ML VIAL SQ SCH ×2 (10:19→21:51)
[2017-01-18] MEDS: MIDODRINE 5 MG TAB PO SCH ×2 (11:35→17:54)
[2017-01-18] MEDS: diphenhydrAMINE HCL 25 MG CAP PO PRN (21:48)
[2017-01-18] MEDS: ACETAMINOPHEN 500 MG CPLT PO PRN (21:49)
[2017-01-19] VITALS (7 sets, daily range): BP systolic 91–161; BP diastolic 53–76; PULSE 82–94; RESP 18–20; TEMP 97.3–98.6; O2SAT 93–100
[2017-01-19] MEDS: INSULIN ASPART SUPPLEMENTAL SCALE SQ SCH ×4 (05:40→21:26)
[2017-01-19] MEDS: MIDODRINE 5 MG TAB PO SCH ×3 (05:41→16:55)
[2017-01-19] MEDS: PIPERACIL-TAZO 4.5 GM PREMIX 100 ML IV SCH ×3 (05:41→21:21)
[2017-01-19 06:15] LABS: AUTOMATED NEUTROPHIL # 2.8 TH/MM3 (1.8-7.7); BASOPHIL % 0.6 % (0.0-2.0); EOSINOPHIL # 0.1 TH/MM3 (0-0.4); EOSINOPHIL % 2.1 % (0.0-4.0); HEMATOCRIT 26.3 % (35.0-46.0); HEMO FLAGS DIFF FINAL; LYMPH % 19.5 % (9.0-44.0); LYMPHOCYTE # 0.8 TH/MM3 (1.0-4.8); MEAN CELL VOLUME 88.1 FL (80.0-100.0); MEAN CORPUSCULAR HEMOGLOBIN 30.7 PG (27.0-34.0); MEAN CORPUSCULAR HGB CONC 34.9 % (32.0-36.0); MONO % 10.9 % (0.0-8.0); NEUT % 66.9 % (16.0-70.0); PLATELET COUNT 262 TH/MM3 (150-450); RED BLOOD COUNT 2.99 MIL/MM3 (4.00-5.30); WHITE BLOOD COUNT 4.2 TH/MM3 (4.0-11.0)
[2017-01-19 06:39] LABS: BICARBONATE 31.6 MEQ/L (21.0-32.0)
--- NOTE | 2017-01-19 08:44 | HHI.FPPN ---
Subjective Remarks Patient seen this morning. No acute events overnight. Did have some low pressures last night (MAP in the 60s). She does c/o some dizziness yesterday when she got up to take a shower. No falls. No vision change. Only complaint today is of intermittent, neuropathic pain in upper extremities. This is relieved with gabapentin. She denies any F/C or N/V. Appetite is slightly decreased from baseline. No trouble swallowing. (Tavares Moreno MD R3) Objective Vitals Vital Signs Date Time Temp Pulse Resp B/P Pulse Ox O2 Delivery O2 Flow Rate FiO2 01/19/17 04:00 97.3 85 18 102/53 95 01/19/17 00:00 97.9 82 18 98/53 97 01/18/17 20:00 98.7 97 18 125/79 98 01/18/17 16:00 97.9 89 18 105/57 97 01/18/17 14:11 93 01/18/17 12:00 97.4 99 18 109/68 99 01/18/17 09:30 119/64 108/59 66/44 I/O 01/18/17 01/18/17 01/18/17 01/19/17 01/19/17 01/19/17 07:00 15:00 23:00 07:00 15:00 23:00 Intake Total 1410 ml 480 ml 100 ml Output Total 300 ml Balance -300 ml 1410 ml 480 ml 100 ml Intake Oral 960 ml 480 ml 100 ml IV Total 450 ml Output Urine Total 300 ml # Voids 2 1 1 # Bowel Movements 1 0 (Tavares Moreno MD R3) Result Diagram: 01/19/17 0545 01/19/17 0545 Objective Remarks GENERAL: This is a well-nourished, well-developed patient, in no apparent distress. SKIN: No rashes, ecchymoses or lesions. Cool and dry. CARDIOVASCULAR: Regular rate and rhythm without murmurs, gallops, or rubs. RESPIRATORY: Clear to auscultation. Breath sounds equal bilaterally. No wheezes , rales, or rhonchi. GASTROINTESTINAL: Abdomen soft, non-tender, nondistended. No hepato-splenomegaly , or palpable masses. No guarding. MUSCULOSKELETAL: Extremities without clubbing, cyanosis, or edema. No joint tenderness, effusion, or edema noted. No calf tenderness. Negative Homans sign bilaterally. Right foot is wrapped in gauze dressing. Not examined today. No purulent drainage noted. NEUROLOGICAL: Awake and alert. Somewhat flat affect. (Tavares Moreno MD R3) A/P Assessment and Plan Mrs. Arechiga is a pleasant 51 y/o Caucasion female with a significant PMHx for IDDM, htn, asthma, hep c, cancer base of tongue and many problems and complications related to that, recurrent diabetic foot infections, who presents with worsening ulceration to her right big toe. She was sent directly to [facility] from our clinic for concern regarding new foot ulceration. Discharge Planning Needs at least 2-3 more days in the hospital. Dispo is to with PT v. rehab. PT eval pending for today. Will discuss with Dr. Ruggiero (Tavares Moreno MD R3) Attending Attestation Pt. examined and case discussed with resident physicians I have read the above note and agree with the assessment/plan as discussed with me I was involved in all medical decision making for this patient Rivera Ruggiero MD (Rivera Ruggiero MD) Problem List: (1) Diabetic foot infection Status: Chronic Plan: Wound culture 01/16 positive for MRSA, pseudomonas, and group D enterococcus. MRSA susceptible to Vancomycin. -Vancomycin 1, 250 mg every 12 hours (01/16-) -Zosyn 4.5 g every 8 hours (01/16-) -Blood cultures 01/16 NGTD -X-ray of right foot negative -Podiatry consulted. Appreciate recs. Initial plan to monitor 1-2 days. Likely debridement today or tomorrow. (2) DM (diabetes mellitus) Status: Chronic Plan: Well controlled. Sugars in the 100s. 1 u ss requirement over the past 24 hours. -Diabetic diet. -Gabapentin 800 mg twice a day. -levemir 10 u BID with ss insulin -Januvia 100 mg daily. (3) Cancer of neck Status: Chronic Plan: had multiple problems and complications related to chemo and radiation but is much better now and only vomited once in the past 2 weeks (4) Orthostatic hypotension Status: Chronic Plan: History of orthostasis with previous chemo/radiation therapy. Severely orthostatic yesterday. -midodrine 5 mg TID restarted. Will re-check orthostatics today. (5) Essential hypertension Status: Chronic Plan: could not tolerate BP meds with her severe orthostatic hypotension leading to syncope. 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
[2017-01-19] MEDS: GABAPENTIN 400 MG CAP PO SCH ×2 (09:22→21:21)
[2017-01-19] MEDS: INSULIN DETEMIR 100 UNITS/ML VIAL SQ SCH ×2 (09:23→21:25)
[2017-01-19] MEDS: VANCOMYCIN INJ 1,250 MG in SODIUM CHLOR 0.9% 250 ML INJ 250 ML IV SCH ×2 (09:23→21:00)
--- NOTE | 2017-01-19 15:40 | PD.POD ---
Subjective Pain score: 1 Remarks mild swelling no pain currently right foot Past Med/Surg/Social History Past Medical History Endocrine: REPORTS HX OF: Diabetes mellitus Cardiovascular: REPORTS HX OF: Hypertension Cancer/Hematology: REPORTS HX OF: Oral cancer Infectious disease: REPORTS HX OF: Hepatitis Past Surgical History HEENT: REPORTS HX OF: Dental surgery Gastrointestinal: DENIES HX OF: Colectomy, total Gynecologic: DENIES HX OF: Hysterectomy Musculoskeletal: REPORTS HX OF: Other musculoskeletal srg (fifth ray amputation right foot) Breast: REPORTS HX OF: Mastectomy, bilateral, Mastectomy, left, Mastectomy, right Social History Smoking Status: Former Smoker Objective Vital Signs Vital Signs Date Time Temp Pulse Resp B/P Pulse Ox O2 Delivery O2 Flow Rate FiO2 01/19/17 12:15 96 21 01/19/17 12:00 98.3 94 18 114/71 96 01/19/17 08:00 98.6 89 18 128/71 99 01/19/17 08:00 92 18 104/61 93 01/19/17 08:00 92 18 91/57 100 01/19/17 04:00 97.3 85 18 102/53 95 01/19/17 00:00 97.9 82 18 98/53 97 01/18/17 20:00 98.7 97 18 125/79 98 01/18/17 16:00 97.9 89 18 105/57 97 Coded Allergies: Compazine (Verified Allergy, Severe, 01/16/17) ANXIETY Ultram (Verified Allergy, Intermediate, Rash, 01/16/17) MRI PRECAUTION (Verified Adverse Reaction, Severe, PACEMAKER IS NOT A BIOTRONIK OR MEDTRONIC 06/15/16 KMD, 01/16/17) PACEMAKER IS NOT A BIOTRONIK OR MEDTRONIC CONDITIONAL PACEMAKER. CALLED BOTH COMPANIES TO CONFIRM. Percocet (Verified Adverse Reaction, Severe, Nausea/Vomiting, 01/16/17) *MDRO Multi-Drug Resistant Organism (Verified Adverse Reaction, Unknown, ESBL, MRSA, 01/16/17) E. coli ESBL (urine) - 2012, 2013, 2014, 04/2016 MRSA - 2003, 03/2015 (toe wound), 10/2015 (arm/back wound), (foot-08/17/16 & 01/11/17) Metformin (Verified Adverse Reaction, Unknown, DIARRHEA, 01/16/17) Morphine (Verified Adverse Reaction, Unknown, Dizziness, 01/16/17) states doesn't want-does not like the way it makes me feel Medications and IVs Administered Medications Medications (Trade) Dose Ordered Sig/Mattie Route PRN Reason Start Time Stop Time Status Last Admin Dose Admin Insulin Detemir (Levemir Inj) 10 units BID SQ 01/16/17 21:00 01/19/17 09:23 Gabapentin (Neurontin) 800 mg BID PO 01/16/17 21:00 01/19/17 09:22 Sitagliptin Phosphate (Januvia) 100 mg DAILY PO 01/17/17 09:00 01/19/17 09:23 Acetaminophen (Tylenol) 500 mg HS PRN PO SLEEP 01/16/17 20:00 01/18/17 21:49 Diphenhydramine HCl 25 mg 25 mg HS PRN PO SLEEP 01/16/17 20:00 01/18/17 21:48 Piperacillin Sod/ Tazobactam Sod 100 ml @ 200 mls/hr Q8H IV 01/16/17 21:00 01/19/17 11:39 Vancomycin HCl/ Sodium Chloride (Vancomycin Inj/ NS 250 ml Inj) 262.5 ml @ 262.5 mls/ hr Q12H IV 01/16/17 21:00 01/19/17 09:23 Midodrine (Proamatine) 5 mg TID@,,17 PO 01/18/17 12:00 01/19/17 11:38 Other Results Laboratory Tests Test 01/19/17 05:45 White Blood Count 4.2 TH/MM3 Red Blood Count 2.99 MIL/MM3 Hemoglobin 9.2 GM/DL Hematocrit 26.3 % Mean Corpuscular Volume 88.1 FL Mean Corpuscular Hemoglobin 30.7 PG Mean Corpuscular Hemoglobin 34.9 % Concent Red Cell Distribution Width 13.0 % Platelet Count 262 TH/MM3 Mean Platelet Volume 7.4 FL Neutrophils (%) (Auto) 66.9 % Lymphocytes (%) (Auto) 19.5 % Monocytes (%) (Auto) 10.9 % Eosinophils (%) (Auto) 2.1 % Basophils (%) (Auto) 0.6 % Neutrophils # (Auto) 2.8 TH/MM3 Lymphocytes # (Auto) 0.8 TH/MM3 Monocytes # (Auto) 0.5 TH/MM3 Eosinophils # (Auto) 0.1 TH/MM3 Basophils # (Auto) 0.0 TH/MM3 CBC Comment DIFF FINAL Differential Comment Laboratory Tests Test 01/19/17 05:45 Sodium Level 139 MEQ/L Potassium Level 4.0 MEQ/L Chloride Level 102 MEQ/L Carbon Dioxide Level 31.6 MEQ/L Anion Gap 5 MEQ/L Blood Urea Nitrogen 11 MG/DL Creatinine 0.69 MG/DL Estimat Glomerular Filtration 90 ML/MIN Rate Random Glucose 151 MG/DL Calcium Level 9.3 MG/DL Microbiology Date/Time Procedure Status Source Growth 01/16/17 18:30 Gram Stain - Final Resulted Wound Foot 01/16/17 18:30 Wound Culture - Preliminary Resulted S. Aureus Mrsa Pseudomonas Species Group D Enterococcus 01/16/17 19:59 Aerobic Blood Culture - Preliminary Resulted Blood Peripheral NO GROWTH IN 3 DAYS 01/16/17 19:59 Anaerobic Blood Culture - Preliminary Resulted Blood Peripheral NO GROWTH IN 3 DAYS 01/16/17 20:05 Aerobic Blood Culture - Preliminary Resulted Blood Peripheral NO GROWTH IN 3 DAYS 01/16/17 20:05 Anaerobic Blood Culture - Preliminary Resulted Blood Peripheral NO GROWTH IN 3 DAYS Physical Exam Remarks GENERAL: This is an alert and oriented female seen bedside exhibiting nonlabored respirations. Extremities: Bilateral lower extremities examined. Right lower extremity focused, there is a necrotic appearing plantar fat pad of the right hallux with mild periwound erythema and minimal drainage. There appears to be mild cellulitis of the digit but it does not course up the foot. Upon pressure to the area there is no pus. There appears to be no pocket of fluid. Sensation is significantly decreased to light touch and deep pressure below the patient's ankle. Pedal pulses are readily palpable. The foot appears to be warm. The patient has an absent right fifth digit. Foot appears improved. Assessment & Plan A/P Right hallux eschar ulcer with cellulitis. Consented- for sharp excisional debridement of the right hallux. After betadine prep a sterile field set up bedside, Using 15 blade and forceps non viable tissue removed from the hallux plantarly down to fat pad. Xeroform DSD applied with compression up to the ankle. If redness better, possible DC home. HH requested by patient- Stefany? Will FU tomorrow. Roberto Benavides DPM Jan 19, 2017 15:40
[2017-01-19] MEDS: diphenhydrAMINE HCL 25 MG CAP PO PRN (21:22)
[2017-01-19] MEDS: ACETAMINOPHEN 500 MG CPLT PO PRN (21:22)
[2017-01-20] VITALS: BP 109/75; PULSE 83; RESP 18; TEMP 98.4; O2SAT 94
[2017-01-20 04:00] VITALS: BP 112/55; PULSE 84; RESP 18; TEMP 97.7; O2SAT 98
[2017-01-20] MEDS: PIPERACIL-TAZO 4.5 GM PREMIX 100 ML IV SCH ×2 (05:46→13:52)
[2017-01-20] MEDS: MIDODRINE 5 MG TAB PO SCH ×2 (05:46→11:04)
[2017-01-20] MEDS: INSULIN ASPART SUPPLEMENTAL SCALE SQ SCH ×2 (05:58→13:52)
[2017-01-20 07:31] LABS: AUTOMATED NEUTROPHIL # 1.6 TH/MM3 (1.8-7.7); BASOPHIL % 0.9 % (0.0-2.0); EOSINOPHIL # 0.1 TH/MM3 (0-0.4); EOSINOPHIL % 2.9 % (0.0-4.0); HEMO FLAGS DIFF FINAL; LYMPH % 26.5 % (9.0-44.0); LYMPHOCYTE # 0.8 TH/MM3 (1.0-4.8); MEAN CELL VOLUME 88.5 FL (80.0-100.0); MEAN CORPUSCULAR HEMOGLOBIN 29.4 PG (27.0-34.0); MEAN CORPUSCULAR HGB CONC 33.2 % (32.0-36.0); MONO % 13.3 % (0.0-8.0); NEUT % 56.4 % (16.0-70.0); PLATELET COUNT 256 TH/MM3 (150-450); RED BLOOD COUNT 3.16 MIL/MM3 (4.00-5.30); RED CELL DISTRIBUTION WIDTH 12.9 % (11.6-17.2); WHITE BLOOD COUNT 2.9 TH/MM3 (4.0-11.0)
[2017-01-20 07:48] LABS: BICARBONATE 30.3 MEQ/L (21.0-32.0); POTASSIUM 3.9 MEQ/L (3.5-5.1)
[2017-01-20 08:00] VITALS: BP 194/92; PULSE 92; RESP 20; TEMP 99.1; O2SAT 98
[2017-01-20] MEDS: GABAPENTIN 400 MG CAP PO SCH (08:57)
[2017-01-20] MEDS: INSULIN DETEMIR 100 UNITS/ML VIAL SQ SCH (08:57)
[2017-01-20] MEDS: VANCOMYCIN INJ 1,250 MG in SODIUM CHLOR 0.9% 250 ML INJ 250 ML IV SCH (08:57)
--- NOTE | 2017-01-20 09:52 | HHI.FPPN ---
Subjective Remarks Patient seen this morning. No acute events overnight. SBP up to the 190s this morning. Per nursing, this was checked right after she had been walking around. Jaqueline denies any CP, SALOMON, or vision change. She is s/p excisional debridement of right hallux yesterday. Tolerated procedure well. Xeroform dressing now in place. Patient denies any pain at this time. She has been working with PT. They have recommended HH with PT, however, patient would like to see if she could be referred to outpatient PT. She also would like to know if she could go to Dr. Gutierrez's clinic for wound care. She has no other complaints today. Not experiencing any significant pain. Feels ready for DC home today. No F/C. ( Tavares Moreno MD R3) Objective Vitals Vital Signs Date Time Temp Pulse Resp B/P Pulse Ox O2 Delivery O2 Flow Rate FiO2 01/20/17 08:00 99.1 92 20 194/92 98 01/20/17 04:00 97.7 84 18 112/55 98 01/20/17 00:00 98.4 83 18 109/75 94 01/19/17 20:00 98.6 83 18 161/76 98 01/19/17 16:00 98.6 93 20 102/61 97 01/19/17 12:15 96 21 01/19/17 12:00 98.3 94 18 114/71 96 I/O 01/19/17 01/19/17 01/19/17 01/20/17 01/20/17 01/20/17 07:00 15:00 23:00 07:00 15:00 23:00 Intake Total 100 ml 480 ml 480 ml 480 ml Balance 100 ml 480 ml 480 ml 480 ml Intake Oral 100 ml 480 ml 480 ml 480 ml # Voids 1 3 2 2 # Bowel Movements 0 1 0 (Tavares Moreno MD R3) Result Diagram: 01/20/17 0559 01/20/17 0559 Objective Remarks GENERAL: This is a well-nourished, well-developed patient sitting up in bed. In NAD. SKIN: No rashes, ecchymoses or lesions. Cool and dry. CARDIOVASCULAR: Regular rate and rhythm without murmurs, gallops, or rubs. RESPIRATORY: Clear to auscultation. Breath sounds equal bilaterally. No wheezes , rales, or rhonchi. GASTROINTESTINAL: Abdomen soft, non-tender, nondistended. No hepato-splenomegaly , or palpable masses. No guarding. MUSCULOSKELETAL: Extremities without clubbing, cyanosis, or edema. No joint tenderness, effusion, or edema noted. No calf tenderness. RIGHT FOOT: Xeroform dressing with HENNY compression wrap in place. [place] granulation tissue appreciated over plantar surface of right hallux s/p debridement of fat pad yesterday. There is mild (<2 cm) surrounding erythema that does not extend to foot. No purulent drainage appreciated. NEUROLOGICAL: Awake and alert. Somewhat flat affect. (Tavares Moreno MD R3) A/P Assessment and Plan Mrs. Arechiga is a pleasant 51 y/o Caucasion female with a significant PMHx for IDDM, htn, asthma, hep c, cancer base of tongue and many problems and complications related to that, recurrent diabetic foot infections, who presents with worsening ulceration to her right big toe. She was sent directly to [facility] from our clinic for concern regarding new foot ulceration. She is now s/o debridement of necrotic plantar fat pat. Discharge Planning Likely DC home with service today. Still needs podiatry clearance. Will need podiatry/wound care follow up at discharge. Will speak with PCP regarding PT referral. Will discuss with Dr. Ruggiero (Tavares Moreno MD R3) Attending Attestation Patient examined and case discussed with resident physicians I have read the above note and agree with the assessment/plan is discussed with me I was involved in all medical decision making for this patient Rivera Ruggiero M.D. (Rivera Ruggiero MD) Problem List: (1) Diabetic foot infection Status: Chronic Plan: Wound culture 01/16 positive for MRSA, pseudomonas, and group D enterococcus. MRSA susceptible to Vancomycin. -Vancomycin 1, 250 mg every 12 hours (01/16-); Zosyn 4.5 g every 8 hours (01/16-) . MRSA sensitive to clindamycin and pseudomonas sensitive to levaquin. Plan for 14 days total antibiotic therapy. -Blood cultures 01/16 NGTD -X-ray of right foot negative -Podiatry consulted. Appreciate recs. Will assess patient today and discharge if no significant cellulitis. (2) DM (diabetes mellitus) Status: Chronic Plan: Well controlled. Sugars up to the low 200s intermittently yesterday. 7 u sliding scale requirement. -Diabetic diet. -Gabapentin 800 mg twice a day. -levemir 10 u BID with ss insulin -Januvia 100 mg daily. (3) Cancer of neck Status: Chronic Plan: had multiple problems and complications related to chemo and radiation but is much better now and only vomited once in the past 2 weeks (4) Orthostatic hypotension Status: Chronic Plan: Improving, but now with elevated BP this AM. -midodrine 5 mg TID restarted. Uncertain if BP elevated 2/2 this. On review of EMR, BPs have mostly been WNL. Will re-check BP with orthostatics. (5) Essential hypertension Status: Chronic Plan: Re-checking BP, as above. -she was previously on lisinopril and Imdur, but these were stopped several months ago due to hypotension. I hesitate to restart BP meds at this time given multiple recent visits for orthostatic hypotension. Unless BP persistently elevated, I will plan to have her f/u with PCP and defer to them regarding HTN management. (6) Nutrition, metabolism, and development symptoms Status: Acute Plan: Diet: diabetic Fluids: SLIV DVT ppx: not indicated, patient ambulatory (Tavares Moreno MD R3) Problem Qualifiers (1) DM (diabetes mellitus): Qualified Code: E11.621 - Type 2 diabetes mellitus with foot ulcer, unspecified fci insulin use status Tavares Moreno MD R3 Jan 20, 2017 09:52 Rivera Ruggiero MD Jan 20, 2017 13:00
[2017-01-20] MEDS ORDERED: LEVEMIR SQ (09:56)
[2017-01-20] MEDS ORDERED: LACTTAB8 PO (09:56)
[2017-01-20] MEDS ORDERED: LEVA750T PO (09:56)
[2017-01-20] MEDS ORDERED: MIDO5TAB PO (09:56)
[2017-01-20] MEDS ORDERED: CLIN1CAP6 PO (09:56)
--- NOTE | 2017-01-20 09:58 | HHI.FF ---
Face to Face Verification Diagnosis: (1) Orthostatic hypotension (2) Diabetic foot infection Physical Therapy Order: Evaluate and Treat, Improve ambulation, Strength and gait training Home Health Nursing Order: Medical education Signs/symptoms of disease process Diabetic education Wound care and dressing changes Nursing assessment with vital signs (Include orthostatics) I have seen patient Jaqueline Arechiga on 01/20/17. My clinical findings support the need for the requested home health care services because: Deconditioned w/ increased weakness High risk of falls I certify that my clinical findings support that this patient is homebound because: Unsteady gait/balance Tavares Moreno MD R3 Jan 20, 2017 09:57
--- NOTE | 2017-01-20 09:58 | HHI.DCPOC ---
Discharge Care Plan Diagnosis: (1) Orthostatic hypotension (2) Diabetic foot infection Goals to Promote Your Health * To prevent worsening of your condition and complications * To maintain your health at the optimal level Directions to Meet Your Goals Take your medications as prescribed Follow your dietary instruction Follow activity as directed Keep your appointments as scheduled Take your immunizations and boosters as scheduled If your symptoms worsen call your PCP, if no PCP go to Urgent Care Center or Emergency Room Smoking is Dangerous to Your Health. Avoid second hand smoke Call the 24-hour hour crisis hotline for domestic abuse at Tavares Moreno MD R3 Jan 20, 2017 09:58
[2017-01-20 12:00] VITALS: BP_SYST 129; BP_SYST 160; BP_SYST 93; BP_DIAS 55; BP_DIAS 76; BP_DIAS 77; PULSE 90; PULSE 91; PULSE 94; RESP 20; TEMP 98.4; O2SAT 94
[2017-01-26] MEDS ORDERED: EXENINJ SQ (10:55)
[2017-02-08] MEDS ORDERED: GABA400C5 PO (11:21)
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
[2017-02-22] MEDS ORDERED: ATOR20TA15 PO (11:12)
[2017-02-22] MEDS ORDERED: EXENINJ SQ (11:14)
[2017-02-22] MEDS ORDERED: MIDO5TAB PO (11:16)
[2017-02-22] MEDS ORDERED: SODI1TAB PO (11:16)
[2017-02-22] MEDS ORDERED: ONDA4TAB6 PO (11:17)
[2017-03-02] MEDS ORDERED: LEVA750T PO (14:35)
[2017-03-02] MEDS ORDERED: BACT800T5 PO (14:36)
[2017-03-21] MEDS ORDERED: GABA400C5 PO (10:02)
[2017-03-21] MEDS ORDERED: LACTPOW68 PO (10:11)
[2017-04-04] MEDS ORDERED: LEVO500T8 PO (11:34)
[2017-04-04] MEDS ORDERED: CLIN1CAP6 PO (11:34)
[2017-04-11] MEDS ORDERED: GLIP1TAB49 PO (11:05)
[2017-05-01] MEDS ORDERED: GABA400C5 PO (10:08)
[2017-05-01] MEDS ORDERED: MIDO5TAB PO (10:08)
[2017-05-01] MEDS ORDERED: SODI1TAB PO (10:09)
== END 2017-01-20 16:05 | disposition home health service (06) | DRG 624 ==
LOC: NEPFCDU 16:25 → OBSVTOIN 18:00 → N04B 01-17 18:28
PROVIDERS: ADMIT Family Medicine; ATTEND Family Medicine
PROC: 0HBMXZZ Excision of Right Foot Skin, External Approach (ICD-10-PCS; principal; 2017-01-19)
DX: E11.621 Type 2 diabetes mellitus with foot ulcer (principal); L97.512 Non-pressure chronic ulcer of other part of right foot with fat layer exposed; C01 Malignant neoplasm of base of tongue; G62.9 Polyneuropathy, unspecified; L03.031 Cellulitis of right toe; B95.62 Methicillin resistant Staphylococcus aureus infection as the cause of diseases classified elsewhere; I10 Essential (primary) hypertension; B96.5 Pseudomonas (aeruginosa) (mallei) (pseudomallei) as the cause of diseases classified elsewhere; B96.89 Other specified bacterial agents as the cause of diseases classified elsewhere; Z79.4 Long term (current) use of insulin; I73.9 Peripheral vascular disease, unspecified; J45.909 Unspecified asthma, uncomplicated; M19.90 Unspecified osteoarthritis, unspecified site; B19.20 Unspecified viral hepatitis C without hepatic coma; E78.5 Hyperlipidemia, unspecified; Z95.0 Presence of cardiac pacemaker; Z89.421 Acquired absence of other right toe(s); Z87.440 Personal history of urinary (tract) infections; Z87.891 Personal history of nicotine dependence; Z91.14 Patient's other noncompliance with medication regimen; Z92.21 Personal history of antineoplastic chemotherapy; Z92.3 Personal history of irradiation; Z99.3 Dependence on wheelchair; Z23 Encounter for immunization
CPT/HCPCS: 10061; 73630; 80048; 82948; 85025; 86403; 87040; 87070; 87077; 87147; 87186; 87205; 90732; J1815; J2543; J3370; J7050; L3260

== ENCOUNTER 2017-02-02 15:31 | Emergency (ER) | payer MEDICARE, OTHER ==
[~2017-02-02] VITALS: Ht 172.7 cm; Wt 72.5 kg
[~2017-02-02 15:31] MED LIST changes: -BACT800T5 PO; +CLIN1CAP6 PO; +EXENINJ SQ; +LACTTAB8 PO; +LEVA750T PO
[2017-02-02 15:33] VITALS: BP 94/57; PULSE 94; RESP 20; TEMP 99.3; O2SAT 95
--- NOTE | 2017-02-02 15:50 | PD ---
Physical Exam Date Seen by Provider: Feb 02, 2017 Time Seen by Provider: 15:47 Narrative Patient seen in Triage with reports of weakness and dizziness from Chemotherapy. Patient states near syncope episode today causing her to fall on her couch. Currently patient feels weak but denies pain. No Nausea, Vomitting , SALOMON, Chest Pain, SOB, or other acute symptoms. Vital Signs Stable. Patient awaiting Bed Placement. Data Data Last Documented VS Vital Signs Date Time Temp Pulse Resp B/P Pulse Ox O2 Delivery O2 Flow Rate FiO2 02/02/17 15:33 99.3 94 20 94/57 95 Room Air [facility] Medical Record Reviewed: Yes Supervised Visit with DARIAN: Yes Condition: Stable Mario Rizvi Feb 02, 2017 15:50
[2017-02-03] MEDS ORDERED: MACR100C2 PO (20:56)
[2017-02-08] MEDS ORDERED: GABA400C5 PO (11:21)
[2017-02-22] MEDS ORDERED: ATOR20TA15 PO (11:12)
[2017-02-22] MEDS ORDERED: EXENINJ SQ (11:14)
[2017-02-22] MEDS ORDERED: SODI1TAB PO (11:16)
[2017-02-22] MEDS ORDERED: MIDO5TAB PO (11:16)
[2017-02-22] MEDS ORDERED: ONDA4TAB6 PO (11:17)
[2017-03-02] MEDS ORDERED: LEVA750T PO (14:35)
[2017-03-02] MEDS ORDERED: BACT800T5 PO (14:36)
[2017-03-21] MEDS ORDERED: GABA400C5 PO (10:02)
[2017-03-21] MEDS ORDERED: LACTPOW68 PO (10:11)
[2017-04-04] MEDS ORDERED: LEVO500T8 PO (11:34)
[2017-04-04] MEDS ORDERED: CLIN1CAP6 PO (11:34)
[2017-04-11] MEDS ORDERED: GLIP1TAB49 PO (11:05)
[2017-05-01] MEDS ORDERED: MIDO5TAB PO (10:08)
[2017-05-01] MEDS ORDERED: GABA400C5 PO (10:08)
[2017-05-01] MEDS ORDERED: SODI1TAB PO (10:09)
== END 2017-02-02 18:53 | disposition left against medical advice (07) ==
LOC: NED 15:31
DX: R55 Syncope and collapse (principal); R53.1 Weakness; R42 Dizziness and giddiness; Z98.890 Other specified postprocedural states; Z53.20 Procedure and treatment not carried out because of patient's decision for unspecified reasons
CPT/HCPCS: 99284

== ENCOUNTER 2017-02-03 17:14 | Emergency (ER) | payer MEDICARE, OTHER ==
[~2017-02-03] VITALS: Ht 172.7 cm; Wt 75.0 kg
[2017-02-03 17:46] VITALS: BP 139/63; PULSE 87; RESP 18; TEMP 99.4; O2SAT 98
[2017-02-03 17:52] VITALS: BP 139/63; PULSE 87; RESP 18; TEMP 99.4; O2SAT 98
[2017-02-03 17:59] VITALS: BP 108/54; RESP 18
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
[2017-02-03] MEDS ORDERED: ONDANSETRON HCL 4 MG/2 ML VIAL IVP ONE (18:30)
[2017-02-03] MEDS ORDERED: SODIUM CHLORIDE 0.9% FLUSH 10 ML FLUSH IVF PRN (18:30)
[2017-02-03] MEDS ORDERED: SODIUM CHLOR 0.9% 1000 ML INJ 1,000 ML IV ONE (18:30)
[2017-02-03 18:51] VITALS: O2SAT 97
[2017-02-03 19:05] LABS: AUTOMATED NEUTROPHIL # 1.6 TH/MM3 (1.8-7.7); BASOPHIL % 0.8 % (0.0-2.0); EOSINOPHIL % 1.2 % (0.0-4.0); HEMATOCRIT 31.4 % (35.0-46.0); HEMO FLAGS DIFF FINAL; MEAN CELL VOLUME 87.2 FL (80.0-100.0); MEAN CORPUSCULAR HEMOGLOBIN 28.7 PG (27.0-34.0); MEAN CORPUSCULAR HGB CONC 32.9 % (32.0-36.0); MONO % 13.1 % (0.0-8.0); NEUT % 50.9 % (16.0-70.0); PLATELET COUNT 192 TH/MM3 (150-450); RED CELL DISTRIBUTION WIDTH 13.2 % (11.6-17.2); WHITE BLOOD COUNT 3.1 TH/MM3 (4.0-11.0)
[2017-02-03 19:06] LABS: PROTHROMBIN TIME - PATIENT 11.3 SEC (9.8-11.6)
[2017-02-03 19:22] VITALS: BP 164/77; PULSE 85; RESP 18; O2SAT 99
[2017-02-03 19:34] LABS: ANION GAP 7 MEQ/L (5-15); AST (GOT) 12 U/L (15-37); BICARBONATE 29.8 MEQ/L (21.0-32.0); BLOOD UREA NITROGEN 10 MG/DL (7-18); CHLORIDE 99 MEQ/L (98-107); GLOMERULAR FILTRATION RATE 69 ML/MIN (>89); POTASSIUM 3.7 MEQ/L (3.5-5.1); SODIUM (NA) 136 MEQ/L (136-145)
[2017-02-03 19:39] LABS: ALKALINE PHOSPHATASE 80 U/L (45-117); ALT (GPT) 17 U/L (10-53); TOTAL BILIRUBIN ADULT 0.3 MG/DL (0.2-1.0)
--- NOTE | 2017-02-03 20:13 | RADRPT ---
EXAM DATE/TIME: 02/03/2017 19:55 [facility] COMPARISON: CT BRAIN W/O CONTRAST, November 20, 2016, 20:44. INDICATIONS : Patient complains of dizziness; possible syncopal episode. RADIATION DOSE: 58.62 CTDIvol (mGy) MEDICAL HISTORY : Hepatitis C. Diabetes mellitus type 2. Carcinoma, breast. SURGICAL HISTORY : Pacemaker. Appendectomy.Cholecystectomy.Mastectomy ENCOUNTER: Initial ACUITY: 1 day PAIN SCALE: 0/10 LOCATION: cranial TECHNIQUE: Multiple contiguous axial images were obtained of the head. Using automated exposure control and adj ustment of the mA and/or kV according to patient size, radiation dose was kept as low as reasonably a chievable to obtain optimal diagnostic quality images. FINDINGS: CEREBRUM: The ventricles are normal for age. No evidence of midline shift, mass lesion, hemorrhage or acute in farction. No extra-axial fluid collections are seen. A tiny 6 mm calcified probable meningioma is ag ain noted within the left posterior parietal region and is stable. POSTERIOR FOSSA: The cerebellum and brainstem are intact. The 4th ventricle is midline. The cerebellopontine angle i s unremarkable. EXTRACRANIAL: The visualized portion of the orbits is intact. There is opacification of right mastoid air cells. SKULL: The calvaria is intact. No evidence of skull fracture. CONCLUSION: 1. No acute intracranial abnormality. 2. Tiny 6 mm stable calcified, probable meningioma within the left posterior parietal region. 3. Opacification of the right mastoid air cells. Lyndon Montero MD on February 03, 2017 at 20:06 Board Certified Radiologist. This report was verified electronically.
--- NOTE | 2017-02-03 20:20 | RADRPT ---
EXAM DATE/TIME: 02/03/2017 19:59 [facility] COMPARISON: CT ABDOMEN & PELVIS W/O CONTRAST, May 29, 2016, 18:31. INDICATIONS : Bilateral mid abdominal pain. ORAL CONTRAST: No oral contrast ingested. RADIATION DOSE: 10.23 CTDIvol (mGy) MEDICAL HISTORY : Hepatitis C. Diabetes mellitus type 2. Carcinoma, breast. SURGICAL HISTORY : Appendectomy. Cholecystectomy.Pacemaker.Mastectomy ENCOUNTER: Initial ACUITY: 1 day PAIN SCALE: 7/10 LOCATION: abdomen TECHNIQUE: Volumetric scanning of the abdomen and pelvis was performed. Using automated exposure control and ad justment of the mA and/or kV according to patient size, radiation dose was kept as low as reasonably achievable to obtain optimal diagnostic quality images. FINDINGS: LOWER LUNGS: The visualized lower lungs are clear. LIVER: Homogeneous density without lesion. There is no dilation of the biliary tree. No calcified gallston es. Status post cholecystectomy. SPLEEN: Normal size without lesion. PANCREAS: Within normal limits. KIDNEYS: Normal in size and shape. There is no mass, stone, or hydronephrosis. ADRENAL GLANDS: Within normal limits. VASCULAR: There is no aortic aneurysm. BOWEL/MESENTERY: The stomach, small bowel, and colon demonstrate no acute abnormality. There is no free intraperitone al air or fluid. ABDOMINAL WALL: Tiny umbilical hernia containing only fat is noted. RETROPERITONEUM: There is no lymphadenopathy. BLADDER: No wall thickening or mass. REPRODUCTIVE: Within normal limits. INGUINAL: There is no lymphadenopathy or hernia. MUSCULOSKELETAL: Mild degenerative changes and scoliosis of the thoracolumbar spine are noted. CONCLUSION: Tiny stable fat containing umbilical hernia. No acute intra-abdominal process. Mild d egenerative changes and scoliosis of the thoracolumbar spine. Lyndon Montero MD on February 03, 2017 at 20:15 Board Certified Radiologist. This report was verified electronically.
[2017-02-03 20:46] LABS: BACTERIA, URINE MANY /hpf; BLOOD, URINE SMALL (NEG); GLUCOSE,URINE NEG (NEG); HYALINE CAST, URINE 2 /lpf (RARE); KETONE, URINE NEG (NEG); NITRITE,URINE NEG (NEG); SQUAMOUS EPITHELIAL CELL URINE 12 /hpf (0-5); URINE COLOR YELLOW (YELLW/STRAW)
[2017-02-03 20:47] LABS: COMMENT (UR) CATH-CULTURE IND; CULTURE IF INDICATED CATH CULTURE IND
[2017-02-03] MEDS ORDERED: MACR100C2 PO (20:56)
--- NOTE | 2017-02-03 20:56 | PD ---
Data Data Last Documented VS Vital Signs Date Time Temp Pulse Resp B/P Pulse Ox O2 Delivery O2 Flow Rate FiO2 02/03/17 19:22 85 18 164/77 99 Room Air 02/03/17 17:52 99.4 Orders Electrocardiogram (02/03/17 18:29) Prothrombin Time / Inr (Pt) (02/03/17 18:29) Complete Blood Count With Diff (02/03/17 18:29) Comprehensive Metabolic Panel (02/03/17 18:29) Troponin I (02/03/17 18:29) Urinalysis - C+S If Indicated (02/03/17 18:29) Ct Brain W/O Iv Contrast(Rout) (02/03/17 18:29) Ecg Monitoring (02/03/17 18:29) Iv Access Insert/Monitor (02/03/17 18:29) Oximetry (02/03/17 18:29) Ondansetron Inj (Zofran Inj) (02/03/17 18:30) Sodium Chloride 0.9% Flush (Ns Flush) (02/03/17 18:30) Ct Abd/Pel W/O Iv Contrast (02/03/17 ) Sodium Chlor 0.9% 1000 Ml Inj (Ns 1000 M (02/03/17 18:30) Blood Culture (02/03/17 19:06) Lactic Acid (02/03/17 19:06) Urine Culture (02/03/17 20:30) Heparin Central Flush (Heparin Central F (02/03/17 21:30) Labs Laboratory Tests Test 02/03/17 02/03/17 02/03/17 18:41 19:18 20:30 White Blood Count 3.1 TH/MM3 Red Blood Count 3.60 MIL/MM3 Hemoglobin 10.3 GM/DL Hematocrit 31.4 % Mean Corpuscular Volume 87.2 FL Mean Corpuscular Hemoglobin 28.7 PG Mean Corpuscular Hemoglobin 32.9 % Concent Red Cell Distribution Width 13.2 % Platelet Count 192 TH/MM3 Mean Platelet Volume 7.6 FL Neutrophils (%) (Auto) 50.9 % Lymphocytes (%) (Auto) 34.0 % Monocytes (%) (Auto) 13.1 % Eosinophils (%) (Auto) 1.2 % Basophils (%) (Auto) 0.8 % Neutrophils # (Auto) 1.6 TH/MM3 Lymphocytes # (Auto) 1.0 TH/MM3 Monocytes # (Auto) 0.4 TH/MM3 Eosinophils # (Auto) 0.0 TH/MM3 Basophils # (Auto) 0.0 TH/MM3 CBC Comment DIFF FINAL Differential Comment Prothrombin Time 11.3 SEC Prothromb Time International 1.0 RATIO Ratio Sodium Level 136 MEQ/L Potassium Level 3.7 MEQ/L Chloride Level 99 MEQ/L Carbon Dioxide Level 29.8 MEQ/L Anion Gap 7 MEQ/L Blood Urea Nitrogen 10 MG/DL Creatinine 0.87 MG/DL Estimat Glomerular Filtration 69 ML/MIN Rate Random Glucose 219 MG/DL Calcium Level 9.3 MG/DL Total Bilirubin 0.3 MG/DL Aspartate Amino Transf 12 U/L (AST/SGOT) Alanine Aminotransferase 17 U/L (ALT/SGPT) Alkaline Phosphatase 80 U/L Troponin I LESS THAN 0.02 NG/ML Total Protein 7.0 GM/DL Albumin 3.1 GM/DL Lactic Acid Level 0.8 mmol/L Urine Color YELLOW Urine Turbidity HAZY Urine pH 7.0 Urine Specific [place] 1.008 Urine Protein NEG mg/dL Urine Glucose (UA) NEG mg/dL Urine Ketones NEG mg/dL Urine Occult Blood SMALL Urine Nitrite NEG Urine Bilirubin NEG Urine Urobilinogen LESS THAN 2.0 MG/DL Urine Leukocyte Esterase SMALL Urine RBC 11 /hpf Urine WBC 7 /hpf Urine Squamous Epithelial 12 /hpf Cells Urine Bacteria MANY /hpf Urine Hyaline Casts 2 /lpf Microscopic Urinalysis Comment CATH-CULTURE IND MDM Medical Record Reviewed: Yes Supervised Visit with DARIAN: No Narrative Course Please refer to the outgoing provider's note. CBC & BMP Diagram 02/03/17 18:41 LFTs normal Lactic acid 0.8 Troponin 0.02 INR 1.0 EKG: Sinus, rate 83, septal Q waves are noted to be stable in comparison to 3 months ago, normal axis and intervals UA: cystitis or possible contaminated specimen Last [address] 02/03/17 1829 Signed Impressions: Service Date/Time: Friday, February 03, 2017 19:55 - CONCLUSION: 1. No acute intracranial abnormality. 2. Tiny 6 mm stable calcified, probable meningioma within the left posterior parietal region. 3. Opacification of the right mastoid air cells. Lyndon Montero MD Abdomen/Pelvis CT 02/03/17 0000 Signed Impressions: Service Date/Time: Friday, February 03, 2017 19:59 - CONCLUSION: Tiny stable fat containing umbilical hernia. No acute intra-abdominal process. Mild degenerative changes and scoliosis of the thoracolumbar spine. Lyndon Montero MD Patient reassessed at 8:46 PM. She is resting comfortably in bed. The right great toe appears somewhat unclean with dirt and hair adhered to the plantar surface. Wound care provided. We discussed the need for routine cleaning of the great toe followed by dressings twice daily with soap and water. There is no adjacent erythema or tenderness c/w cellulitis. The patient finished a course of clindamycin and Levaquin following admission on Vancomycin and Zosyn for infection with subsequent debridement of R great toe. She has since followed up with Dr. Barker of the family practitioner service. Patient is noted to have offered similar complaints of dizziness at the prior visit. Records demonstrated noncompliance with midodrine and diabetes medications. We discussed importance of medication compliance. Pt agrees to follow up with family practitioner next week. The patient would likely benefit from medication compliance and improved personal hygiene management. Prior urine culture isolates of Klebs pneumonia were brand-sensitive. Macrobid script provided. Diagnosis Primary Impression: Near syncope Additional Impressions: Chronic foot ulcer Qualified Code: L97.519 - Chronic foot ulcer, right, with unspecified severity Cystitis Referrals: Janice Barker MD 3 days Additional Instruction: You have a choice when it comes to health care, and we are glad that you chose [facility]. Hopefully, we have met your expectations on today's visit. You are welcome to return to [facility] at any time, as we are committed to meeting the health care needs of our community. Med/Other Pt SpecificInfo: No Change to Meds Scripts Nitrofurantoin Monohydrate Macrocrystals (Macrobid)100 Mg [id number] Mg PO BID 5 Days Ref 0 Prov:Te Galicia MD 02/03/17 Disposition: 01 DISCHARGE HOME Condition: Stable Te Galicia MD Feb 03, 2017 20:56
--- NOTE | 2017-02-05 21:26 | EKG ---
Date Performed: 02/03/2017 Time Performed: 19:19:39 PTAGE: 51 years EKG: Sinus rhythm PROBABLE SEPTAL MYOCARDIAL INFARCTION ABNORMAL ECG PREVIOUS TRACING : 11/21/2016 03.38 DOCTOR: Mario Gooden Interpretating Date/Time 02/05/2017 21:23:05
[2017-02-08] MEDS ORDERED: GABA400C5 PO (11:21)
[2017-02-22] MEDS ORDERED: ATOR20TA15 PO (11:12)
[2017-02-22] MEDS ORDERED: EXENINJ SQ (11:14)
[2017-02-22] MEDS ORDERED: SODI1TAB PO (11:16)
[2017-02-22] MEDS ORDERED: MIDO5TAB PO (11:16)
[2017-02-22] MEDS ORDERED: ONDA4TAB6 PO (11:17)
[2017-03-02] MEDS ORDERED: LEVA750T PO (14:35)
[2017-03-02] MEDS ORDERED: BACT800T5 PO (14:36)
[2017-03-21] MEDS ORDERED: GABA400C5 PO (10:02)
[2017-03-21] MEDS ORDERED: LACTPOW68 PO (10:11)
[2017-04-04] MEDS ORDERED: LEVO500T8 PO (11:34)
[2017-04-04] MEDS ORDERED: CLIN1CAP6 PO (11:34)
[2017-04-11] MEDS ORDERED: GLIP1TAB49 PO (11:05)
[2017-05-01] MEDS ORDERED: GABA400C5 PO (10:08)
[2017-05-01] MEDS ORDERED: MIDO5TAB PO (10:08)
[2017-05-01] MEDS ORDERED: SODI1TAB PO (10:09)
== END 2017-02-03 22:07 | disposition home or self-care (01) ==
LOC: NEPC 17:14
DX: R55 Syncope and collapse (principal); E11.621 Type 2 diabetes mellitus with foot ulcer; L97.519 Non-pressure chronic ulcer of other part of right foot with unspecified severity; Z79.4 Long term (current) use of insulin; N30.90 Cystitis, unspecified without hematuria; B96.29 Other Escherichia coli [E. coli] as the cause of diseases classified elsewhere
CPT/HCPCS: 70450; 74176; 80053; 81001; 83605; 84484; 85025; 85610; 87040; 87077; 87086; 87186; 93005; 96361; 96374; 99285; J2405; J7030

== ENCOUNTER 2017-02-06 09:49 | Emergency (ER) | payer MEDICARE, OTHER ==
[~2017-02-06] VITALS: Ht 172.7 cm; Wt 72.0 kg
[~2017-02-06 09:49] MED LIST changes: -LEVA750T PO; +MACR100C2 PO
[2017-02-06 10:01] VITALS: BP 100/56; PULSE 86; RESP 18; TEMP 98.6; O2SAT 96
[2017-02-06] MEDS ORDERED: SODIUM CHLOR 0.9% 1000 ML INJ 1,000 ML IV ONE (10:16)
--- NOTE | 2017-02-06 10:20 | PD ---
HPI Chief Complaint: Dizziness Time Seen by Provider: 09:58 Travel History International Travel<30 days: No Contact w/Intl Traveler<30days: No Traveled to known affect area: No History of Present Illness HPI 51yo F presents to the ED with c/o lightheadedness while walking today. Pt was just here 02/03/17 for similar complaints and had negative CT brain and CTa/p. Pt states she got up and was walking and felt lightheaded. Has been nauseous and had NBNB vomit today and yesterday. Mild periumbilical abdominal discomfort that just started. Denies any fever, chest pain, sob, urinary complaints, diarrhea, focal weakness or numbness, or ringing in ear. States she was taken off midodrine. PFSH Past Medical History Hx Anticoagulant Therapy: No Arthritis: No Asthma: Yes Atrial Fibrillation: Yes Autoimmune Disease: No Blood Disorders: No Anxiety: No Depression: No Heart Rhythm Problems: Yes (Pacemaker) Cancer: Yes (oropharyngeal cancer) Cardiovascular Problems: Yes High Cholesterol: No Chemotherapy: Yes Chest Pain: Yes Congestive Heart Failure: No COPD: No Cerebrovascular Accident: Yes Diabetes: Yes Patient Takes Glucophage: No Diminished Hearing: No Endocrine: Yes Gastrointestinal Disorders: Yes (esophagitis, gastritis, pancreantitis, HEP C) GERD: No Glaucoma: No Genitourinary: Yes (FREQUENT UTIs) Headaches: Yes Hepatitis: Yes (HEP C) Hiatal Hernia: No Heparin Induced Thrombocytopen: No Hypertension: Yes Immune Disorder: No Implanted Vascular Access Dvce: Yes (PORT R CHEST, PACEMAKER L CHEST) Kidney Stones: Yes Musculoskeletal: Yes (BACK PAIN) Neurologic: Yes (CVA, no deficits ) Psychiatric: No Reproductive: Yes (GENITAL WARTS YEARS AGO) Respiratory: Yes (ASTHMA) Immunizations Current: Yes Migraines: Yes Myocardial Infarction: No Radiation Therapy: Yes (LAST DONE ON 11/18/16) Renal Failure: No Seizures: No Sickle Cell Disease: No Sleep Apnea: No Thyroid Disease: No Triglycerides - High: Yes Ulcer: No PNEUMOCCOCAL Vaccine (Year): 2 ?: Not Menopausal: Yes : 3 Para: 2 Miscarriage: 1 Past Surgical History Abdominal Surgery: Yes AICD: No Appendectomy: Yes Arteriovenous Shunt: No Body Medical Devices: PACEMAKER; LEG STENT; PORT PLACED Cardiac Surgery: Yes (L FEMORAL STENT, PACEMAKER) Section: Yes (x1) Cholecystectomy: Yes Ear Surgery: No Endocrine Surgery: No Eye Surgery: No Genitourinary Surgery: No Hysterectomy: No Insulin Pump: No Joint Replacement: No Neurologic Surgery: No Oral Surgery: Yes Pacemaker: Yes (ST [facility]) Thoracic Surgery: No Tonsillectomy: Yes Other Surgery: Yes (LEG STENTS left legs, PORT PLACED- RIGHT 2015) Social History Alcohol Use: No Tobacco Use: No Substance Use: No Allergies-Medications (Allergen,Severity, Reaction): Coded Allergies: Compazine (Verified Allergy, Severe, 02/02/17) ANXIETY Ultram (Verified Allergy, Intermediate, Rash, 02/02/17) MRI PRECAUTION (Verified Adverse Reaction, Severe, PACEMAKER IS NOT A BIOTRONIK OR MEDTRONIC 06/15/16 KMD, 02/02/17) PACEMAKER IS NOT A BIOTRONIK OR MEDTRONIC CONDITIONAL PACEMAKER. CALLED BOTH COMPANIES TO CONFIRM. Percocet (Verified Adverse Reaction, Severe, Nausea/Vomiting, 02/02/17) *MDRO Multi-Drug Resistant Organism (Verified Adverse Reaction, Unknown, ESBL, MRSA, 02/06/17) E. coli ESBL (urine) - 2012, 2013, 2014, 04/2016, 02/03/2017 MRSA - 2003, 03/2015 (toe wound), 10/2015 (arm/back wound), (foot-08/17/16 & 01/11/17) Metformin (Verified Adverse Reaction, Unknown, DIARRHEA, 02/02/17) Morphine (Verified Adverse Reaction, Unknown, Dizziness, 02/02/17) states doesn't want-does not like the way it makes me feel Reported Meds & Prescriptions Reported Meds & Active Scripts Active Levemir Inj (Insulin Detemir) 1,000 unit/ 10 ML Vial 10 Units SQ BID Januvia (Sitagliptin Phosphate) 100 Mg Tab 100 Mg PO DAILY Imodium A-D (Loperamide HCl) 2 Mg Cap 2 Mg PO Q6H PRN Reported [Inhaler] 1-2 Puff INH Q6HR PRN Gabapentin 400 Mg Cap 800 Mg PO BID Review of Systems Except as stated in HPI: all other systems reviewed are Neg Physical Exam Narrative GENERAL: 51yo F not in distress. SKIN: Focused skin assessment warm/dry. HEAD: Atraumatic. Normocephalic. EYES: Pupils equal and round at 3mm bilaterally. EOMI. No scleral icterus. No injection or drainage. ENT: No nasal bleeding or discharge. Mucous membranes pink and moist. NECK: Trachea midline. No JVD. CARDIOVASCULAR: Regular rate and rhythm. No murmur appreciated. RESPIRATORY: No accessory muscle use. Clear to auscultation. Breath sounds equal bilaterally. GASTROINTESTINAL: Abdomen soft, non-tender, nondistended. MUSCULOSKELETAL: No obvious deformities. No clubbing. No cyanosis. No edema. NEUROLOGICAL: Awake and alert. No obvious cranial nerve deficits. Motor grossly within normal limits. Normal speech. PSYCHIATRIC: Appropriate mood and affect; insight and judgment normal. Data Data Last Documented VS Vital Signs Date Time Temp Pulse Resp B/P Pulse Ox O2 Delivery O2 Flow Rate FiO2 02/06/17 11:41 88 17 109/63 96 Room Air 02/06/17 10:01 98.6 Orders Electrocardiogram (02/06/17 10:16) Basic Metabolic Panel (Bmp) (02/06/17 10:16) Comprehensive Metabolic Panel (02/06/17 10:16) Magnesium (Mg) (02/06/17 10:16) Ckmb (Isoenzyme) Profile (02/06/17 10:16) Troponin I (02/06/17 10:16) Act Partial Throm Time (Ptt) (02/06/17 10:16) Prothrombin Time / Inr (Pt) (02/06/17 10:16) Urinalysis - C+S If Indicated (02/06/17 10:16) Ecg Monitoring (02/06/17 10:16) Iv Access Insert/Monitor (02/06/17 10:16) Oximetry (02/06/17 10:16) Ondansetron Inj (Zofran Inj) (02/06/17 10:30) Sodium Chloride 0.9% Flush (Ns Flush) (02/06/17 10:30) Sodium Chlor 0.9% 1000 Ml Inj (Ns 1000 M (02/06/17 10:16) Orthostatic Vital Signs (02/06/17 10:16) Lipase (02/06/17 10:16) Complete Blood Count With Diff (02/06/17 10:52) Labs Laboratory Tests Test 02/06/17 02/06/17 10:12 10:30 White Blood Count 3.1 TH/MM3 Red Blood Count 3.63 MIL/MM3 Hemoglobin 10.6 GM/DL Hematocrit 31.7 % Mean Corpuscular Volume 87.6 FL Mean Corpuscular Hemoglobin 29.4 PG Mean Corpuscular Hemoglobin 33.5 % Concent Red Cell Distribution Width 13.7 % Platelet Count 213 TH/MM3 Mean Platelet Volume 7.9 FL Neutrophils (%) (Auto) 67.1 % Lymphocytes (%) (Auto) 22.6 % Monocytes (%) (Auto) 9.1 % Eosinophils (%) (Auto) 0.7 % Basophils (%) (Auto) 0.5 % Neutrophils # (Auto) 2.1 TH/MM3 Lymphocytes # (Auto) 0.7 TH/MM3 Monocytes # (Auto) 0.3 TH/MM3 Eosinophils # (Auto) 0.0 TH/MM3 Basophils # (Auto) 0.0 TH/MM3 CBC Comment DIFF FINAL Differential Comment Prothrombin Time 11.1 SEC Prothromb Time International 1.0 RATIO Ratio Activated Partial 22.4 SEC Thromboplast Time Sodium Level 138 MEQ/L Potassium Level 4.1 MEQ/L Chloride Level 101 MEQ/L Carbon Dioxide Level 28.4 MEQ/L Anion Gap 9 MEQ/L Blood Urea Nitrogen 10 MG/DL Creatinine 0.89 MG/DL Estimat Glomerular Filtration 67 ML/MIN Rate Random Glucose 233 MG/DL Calcium Level 9.5 MG/DL Magnesium Level 1.8 MG/DL Total Bilirubin 0.3 MG/DL Aspartate Amino Transf 11 U/L (AST/SGOT) Alanine Aminotransferase 15 U/L (ALT/SGPT) Alkaline Phosphatase 74 U/L Total Creatine Kinase 28 U/L Troponin I LESS THAN 0.02 NG/ML Total Protein 6.8 GM/DL Albumin 3.0 GM/DL Lipase 179 U/L Urine Color YELLOW Urine Turbidity HAZY Urine pH 6.5 Urine Specific [place] 1.009 Urine Protein NEG mg/dL Urine Glucose (UA) NEG mg/dL Urine Ketones NEG mg/dL Urine Occult Blood SMALL Urine Nitrite NEG Urine Bilirubin NEG Urine Urobilinogen LESS THAN 2.0 MG/DL Urine Leukocyte Esterase SMALL Urine RBC 6 /hpf Urine WBC 4 /hpf Urine Squamous Epithelial 10 /hpf Cells Urine Transitional Epithelial <1 /hpf Cells Urine Bacteria OCC /hpf Urine Hyaline Casts 4 /lpf Urine Mucus FEW /lpf Microscopic Urinalysis Comment CULT NOT INDICATED MDM Medical Decision Making Medical Screen Exam Complete: Yes Emergency Medical Condition: Yes Interpretation(s) EKG: NSR 86bpm. LAD. No ST segment elevation or depression. Q wave V1, V2, III. Laboratory Tests Test 02/06/17 02/06/17 10:12 10:30 White Blood Count 3.1 TH/MM3 (4.0-11.0) Red Blood Count 3.63 MIL/MM3 (4.00-5.30) Hemoglobin 10.6 GM/DL (11.6-15.3) Hematocrit 31.7 % (35.0-46.0) Mean Corpuscular Volume 87.6 FL (80.0-100.0) Mean Corpuscular Hemoglobin 29.4 PG (27.0-34.0) Mean Corpuscular Hemoglobin 33.5 % Concent (32.0-36.0) Red Cell Distribution Width 13.7 % (11.6-17.2) Platelet Count 213 TH/MM3 (150-450) Mean Platelet Volume 7.9 FL (7.0-11.0) Neutrophils (%) (Auto) 67.1 % (16.0-70.0) Lymphocytes (%) (Auto) 22.6 % (9.0-44.0) Monocytes (%) (Auto) 9.1 % (0.0-8.0) Eosinophils (%) (Auto) 0.7 % (0.0-4.0) Basophils (%) (Auto) 0.5 % (0.0-2.0) Neutrophils # (Auto) 2.1 TH/MM3 (1.8-7.7) Lymphocytes # (Auto) 0.7 TH/MM3 (1.0-4.8) Monocytes # (Auto) 0.3 TH/MM3 (0-0.9) Eosinophils # (Auto) 0.0 TH/MM3 (0-0.4) Basophils # (Auto) 0.0 TH/MM3 (0-0.2) CBC Comment DIFF FINAL Differential Comment Prothrombin Time 11.1 SEC (9.8-11.6) Prothromb Time International 1.0 RATIO Ratio Activated Partial 22.4 SEC Thromboplast Time (24.3-30.1) Sodium Level 138 MEQ/L (136-145) Potassium Level 4.1 MEQ/L (3.5-5.1) Chloride Level 101 MEQ/L (98-107) Carbon Dioxide Level 28.4 MEQ/L (21.0-32.0) Anion Gap 9 MEQ/L (5-15) Blood Urea Nitrogen 10 MG/DL (7-18) Creatinine 0.89 MG/DL (0.50-1.00) Estimat Glomerular Filtration 67 ML/MIN (>89) Rate Random Glucose 233 MG/DL (74-106) Calcium Level 9.5 MG/DL (8.5-10.1) Magnesium Level 1.8 MG/DL (1.5-2.5) Total Bilirubin 0.3 MG/DL (0.2-1.0) Aspartate Amino Transf 11 U/L (15-37) (AST/SGOT) Alanine Aminotransferase 15 U/L (10-53) (ALT/SGPT) Alkaline Phosphatase 74 U/L (45-117) Total Creatine Kinase 28 U/L (26-192) Troponin I LESS THAN 0.02 NG/ML (0.02-0.05) Total Protein 6.8 GM/DL (6.4-8.2) Albumin 3.0 GM/DL (3.4-5.0) Lipase 179 U/L (73-393) Urine Color YELLOW (YELLW/STRAW) Urine Turbidity HAZY (CLEAR) Urine pH 6.5 (5.0-8.5) Urine Specific [place] 1.009 (1.002-1.035) Urine Protein NEG mg/dL (NEG-TRACE) Urine Glucose (UA) NEG mg/dL (NEG) Urine Ketones NEG mg/dL (NEG) Urine Occult Blood SMALL (NEG) Urine Nitrite NEG (NEG) Urine Bilirubin NEG (NEG) Urine Urobilinogen LESS THAN 2.0 MG/DL (LESS THAN 2.0) Urine Leukocyte Esterase SMALL (NEG) Urine RBC 6 /hpf (0-3) Urine WBC 4 /hpf (0-5) Urine Squamous Epithelial 10 /hpf (0-5) Cells Urine Transitional Epithelial <1 /hpf (NONE) Cells Urine Bacteria OCC /hpf (NONE) Urine Hyaline Casts 4 /lpf (RARE) Urine Mucus FEW /lpf (OCC) Microscopic Urinalysis Comment CULT NOT INDICATED Differential Diagnosis Orthostatic hypotension vs. dehydration vs. arrhythmia Narrative Course 51yo F with lightheadedness when she stands up from sitting position. Orthostatic is positive. This is not a new problem. Pt has salt tablets at home. Pt given NS IVF and zofran. Labs reviewed, H/H low but at baseline. negative troponin. Glucose elevated at 233, no increased anion gap. CO2 28.4. UA showed contamination, positive squamous. Pt reevaluated at bedside and feels better after IVF. Pt is eating and no longer lightheaded. Return precautions given. Diagnosis Primary Impression: Orthostatic hypotension Patient Instructions: General Instructions Departure Forms: Tests/Procedures Additional Instructions: Please follow up with your PMD in 1-2 days. Return to the ED if symptoms worsen. Med/Other Pt SpecificInfo: No Change to Meds Disposition: 01 DISCHARGE HOME Condition: Stable Sobeida Bronw Feb 06, 2017 10:20
[2017-02-06 10:28] VITALS: O2SAT 96
[2017-02-06] MEDS ORDERED: ONDANSETRON HCL 4 MG/2 ML VIAL IVP ONE (10:30)
[2017-02-06] MEDS ORDERED: SODIUM CHLORIDE 0.9% FLUSH 10 ML FLUSH IVF PRN (10:30)
[2017-02-06 10:32] VITALS: BP_SYST 121; BP_SYST 82; BP_SYST 89; BP_DIAS 46; BP_DIAS 53; BP_DIAS 61; RESP 17; RESP 20
[2017-02-06 11:02] LABS: APTT (PATIENT) 22.4 SEC (24.3-30.1); PROTHROMBIN TIME - PATIENT 11.1 SEC (9.8-11.6)
[2017-02-06 11:05] LABS: BACTERIA, URINE OCC /hpf; BLOOD, URINE SMALL (NEG); GLUCOSE,URINE NEG (NEG); HYALINE CAST, URINE 4 /lpf (RARE); KETONE, URINE NEG (NEG); MUCUS URINE FEW /lpf (OCC); NITRITE,URINE NEG (NEG); PH, URINE 6.5 (5.0-8.5); SQUAMOUS EPITHELIAL CELL URINE 10 /hpf (0-5); TRANSITIONAL EPI CELLS, URINE <1 /hpf; URINE COLOR YELLOW (YELLW/STRAW)
[2017-02-06 11:06] LABS: COMMENT (UR) CULT NOT INDICATED; CULTURE IF INDICATED CULT NOT INDICATED
[2017-02-06 11:13] LABS: ALT (GPT) 15 U/L (10-53); ANION GAP 9 MEQ/L (5-15); AST (GOT) 11 U/L (15-37); BICARBONATE 28.4 MEQ/L (21.0-32.0); BLOOD UREA NITROGEN 10 MG/DL (7-18); CHLORIDE 101 MEQ/L (98-107); GLOMERULAR FILTRATION RATE 67 ML/MIN (>89); MAGNESIUM 1.8 MG/DL (1.5-2.5); POTASSIUM 4.1 MEQ/L (3.5-5.1); SODIUM (NA) 138 MEQ/L (136-145)
[2017-02-06 11:17] LABS: ALKALINE PHOSPHATASE 74 U/L (45-117); TOTAL BILIRUBIN ADULT 0.3 MG/DL (0.2-1.0)
[2017-02-06 11:18] LABS: CREATINE KINASE 28 U/L (26-192)
[2017-02-06 11:41] VITALS: BP 109/63; PULSE 88; RESP 17; O2SAT 96
[2017-02-06 12:31] LABS: AUTOMATED NEUTROPHIL # 2.1 TH/MM3 (1.8-7.7); BASOPHIL % 0.5 % (0.0-2.0); EOSINOPHIL % 0.7 % (0.0-4.0); HEMATOCRIT 31.7 % (35.0-46.0); HEMO FLAGS DIFF FINAL; LYMPH % 22.6 % (9.0-44.0); LYMPHOCYTE # 0.7 TH/MM3 (1.0-4.8); MEAN CELL VOLUME 87.6 FL (80.0-100.0); MEAN CORPUSCULAR HEMOGLOBIN 29.4 PG (27.0-34.0); MEAN CORPUSCULAR HGB CONC 33.5 % (32.0-36.0); MONO % 9.1 % (0.0-8.0); NEUT % 67.1 % (16.0-70.0); PLATELET COUNT 213 TH/MM3 (150-450); RED BLOOD COUNT 3.63 MIL/MM3 (4.00-5.30); RED CELL DISTRIBUTION WIDTH 13.7 % (11.6-17.2); WHITE BLOOD COUNT 3.1 TH/MM3 (4.0-11.0)
[2017-02-06 13:37] VITALS: BP 130/80
--- NOTE | 2017-02-07 10:45 | EKG ---
Date Performed: 02/06/2017 Time Performed: 11:05:44 PTAGE: 51 years EKG: Sinus rhythm SEPTAL MYOCARDIAL INFARCTION ABNORMAL ECG Compared to prior tracing no significant change PREVIOUS TRACING : 02/03/2017 19.19 DOCTOR: Gill Rivas Interpretating Date/Time 02/07/2017 10:37:41
[2017-02-08] MEDS ORDERED: GABA400C5 PO (11:21)
[2017-02-22] MEDS ORDERED: ATOR20TA15 PO (11:12)
[2017-02-22] MEDS ORDERED: EXENINJ SQ (11:14)
[2017-02-22] MEDS ORDERED: SODI1TAB PO (11:16)
[2017-02-22] MEDS ORDERED: MIDO5TAB PO (11:16)
[2017-02-22] MEDS ORDERED: ONDA4TAB6 PO (11:17)
[2017-03-02] MEDS ORDERED: LEVA750T PO (14:35)
[2017-03-02] MEDS ORDERED: BACT800T5 PO (14:36)
[2017-03-21] MEDS ORDERED: GABA400C5 PO (10:02)
[2017-03-21] MEDS ORDERED: LACTPOW68 PO (10:11)
[2017-04-04] MEDS ORDERED: CLIN1CAP6 PO (11:34)
[2017-04-04] MEDS ORDERED: LEVO500T8 PO (11:34)
[2017-04-11] MEDS ORDERED: GLIP1TAB49 PO (11:05)
[2017-05-01] MEDS ORDERED: GABA400C5 PO (10:08)
[2017-05-01] MEDS ORDERED: MIDO5TAB PO (10:08)
[2017-05-01] MEDS ORDERED: SODI1TAB PO (10:09)
== END 2017-02-06 13:39 | disposition home or self-care (01) ==
LOC: NEPE 09:49
DX: I95.1 Orthostatic hypotension (principal); J45.909 Unspecified asthma, uncomplicated; I48.91 Unspecified atrial fibrillation; E11.9 Type 2 diabetes mellitus without complications; I10 Essential (primary) hypertension; R94.31 Abnormal electrocardiogram [ECG] [EKG]
CPT/HCPCS: 80053; 81001; 82550; 83690; 83735; 84484; 85025; 85610; 85730; 93005; 96361; 96374; 99284; J1642; J2405; J7030

== ENCOUNTER 2017-02-15 20:25 | Emergency (ER) | payer MEDICARE ==
[~2017-02-15] VITALS: Ht 172.7 cm; Wt 74.0 kg
[~2017-02-15 20:25] MED LIST changes: -CLIN1CAP6 PO; -DIPH1TAB36 PO; -EXENINJ SQ; -GLUCLIQ15 PO; -LACTTAB8 PO; -MACR100C2 PO; -SODI1TAB PO
[2017-02-15 20:56] VITALS: BP 155/84; PULSE 90; RESP 18; TEMP 98.9
[2017-02-15 21:06] VITALS: BP 168/74; PULSE 88; RESP 16; O2SAT 98
[2017-02-15] MEDS ORDERED: SODIUM CHLOR 0.9% 1000 ML INJ 1,000 ML IV ONE (21:17)
--- NOTE | 2017-02-15 21:32 | PD ---
HPI Chief Complaint: Dizziness Time Seen by Provider: 21:15 Travel History International Travel<30 days: No Contact w/Intl Traveler<30days: No Traveled to known affect area: No History of Present Illness HPI Patient comes in for evaluation of dizziness that occurred while she was in the shower. Patient reports she went from standing to sitting when she had this episode. Patient seen twice previously recently for similar symptoms. Patient was diagnosed with orthostatic hypotension previously. Patient states she was told to just take sodium tablets. She denies chest pain, shortness of breath, nausea, vomiting, headache, change in vision, numbness or tingling anywhere, fevers, or headaches. Symptoms have resolved. PFSH Past Medical History Hx Anticoagulant Therapy: No Asthma: Yes Atrial Fibrillation: Yes Heart Rhythm Problems: Yes (Pacemaker) Cancer: Yes (oropharyngeal cancer) Cardiovascular Problems: Yes Chemotherapy: Yes Chest Pain: Yes Cerebrovascular Accident: Yes Diabetes: Yes Patient Takes Glucophage: No Diminished Hearing: No Endocrine: Yes Gastrointestinal Disorders: Yes (esophagitis, gastritis, pancreantitis, HEP C) Genitourinary: Yes (FREQUENT UTIs) Headaches: Yes Hepatitis: Yes (HEP C) Hypertension: Yes Implanted Vascular Access Dvce: Yes (PORT R CHEST, PACEMAKER L CHEST) Kidney Stones: Yes Musculoskeletal: Yes (BACK PAIN) Neurologic: Yes (CVA, no deficits ) Reproductive: Yes (GENITAL WARTS YEARS AGO) Respiratory: Yes (ASTHMA) Immunizations Current: Yes Migraines: Yes Radiation Therapy: Yes (LAST DONE ON 11/18/16) Triglycerides - High: Yes PNEUMOCCOCAL Vaccine (Year): 2 ?: Unknown Menopausal: Yes : 3 Para: 2 Miscarriage: 1 Past Surgical History Abdominal Surgery: Yes Appendectomy: Yes Body Medical Devices: PACEMAKER; LEG STENT; PORT PLACED Cardiac Surgery: Yes (L FEMORAL STENT, PACEMAKER) Section: Yes (x1) Cholecystectomy: Yes Oral Surgery: Yes Pacemaker: Yes (ST JUDES) Tonsillectomy: Yes Other Surgery: Yes (LEG STENTS left legs, PORT PLACED- RIGHT 2015) Social History Alcohol Use: No Tobacco Use: No Substance Use: No Allergies-Medications (Allergen,Severity, Reaction): Coded Allergies: Compazine (Verified Allergy, Severe, 02/08/17) ANXIETY Ultram (Verified Allergy, Intermediate, Rash, 02/08/17) MRI PRECAUTION (Verified Adverse Reaction, Severe, PACEMAKER IS NOT A BIOTRONIK OR MEDTRONIC 06/15/16 KMD, 02/08/17) PACEMAKER IS NOT A BIOTRONIK OR MEDTRONIC CONDITIONAL PACEMAKER. CALLED BOTH COMPANIES TO CONFIRM. Percocet (Verified Adverse Reaction, Severe, Nausea/Vomiting, 02/08/17) *MDRO Multi-Drug Resistant Organism (Verified Adverse Reaction, Unknown, ESBL, MRSA, 02/08/17) E. coli ESBL (urine) - 2012, 2013, 2014, 04/2016, 02/03/2017 MRSA - 2003, 03/2015 (toe wound), 10/2015 (arm/back wound), (foot-08/17/16 & 01/11/17) Metformin (Verified Adverse Reaction, Unknown, DIARRHEA, 02/08/17) Morphine (Verified Adverse Reaction, Unknown, Dizziness, 02/08/17) states doesn't want-does not like the way it makes me feel Reported Meds & Prescriptions Reported Meds & Active Scripts Active Gabapentin 400 Mg Cap 400 Mg PO TID Levemir Inj (Insulin Detemir) 1,000 unit/ 10 ML Vial 10 Units SQ BID Januvia (Sitagliptin Phosphate) 100 Mg Tab 100 Mg PO DAILY Imodium A-D (Loperamide HCl) 2 Mg Cap 2 Mg PO Q6H PRN Reported Ventolin Hfa 18 GM Inh (Albuterol Sulfate) 90 Mcg/Act Aer 1-2 Puff INH Q6HR PRN Review of Systems Except as stated in HPI: all other systems reviewed are Neg Physical Exam Narrative GENERAL: Well-developed, well nourished, in no acute distress, and non-ill appearing. SKIN: Focused skin assessment warm and dry. HEAD: Atraumatic. Normocephalic. EYES: Pupils equal and round. EOMI. No scleral icterus. No injection or drainage. ENT: No nasal bleeding or discharge. Mucous membranes pink and moist. NECK: Trachea midline. No JVD. Supple. No nuclear rigidity. CARDIOVASCULAR: Regular rate and rhythm. No murmur appreciated. RESPIRATORY: No accessory muscle use. No respiratory distress. Clear to auscultation. Breath sounds equal bilaterally. MUSCULOSKELETAL: No obvious deformities. No clubbing. No cyanosis. No edema. Full range of motion. NEUROLOGICAL: Awake and alert. No obvious cranial nerve deficits. Motor grossly within normal limits. Normal speech. PSYCHIATRIC: Appropriate mood and affect; insight and judgment normal. Data Data Last Documented VS Vital Signs Date Time Temp Pulse Resp B/P Pulse Ox O2 Delivery O2 Flow Rate FiO2 02/15/17 21:06 88 16 168/74 98 Room Air 02/15/17 20:56 98.9 Orders Electrocardiogram (02/15/17 21:17) Complete Blood Count With Diff (02/15/17 21:17) Comprehensive Metabolic Panel (02/15/17 21:17) Magnesium (Mg) (02/15/17 21:17) Ckmb (Isoenzyme) Profile (02/15/17 21:17) Troponin I (02/15/17 21:17) Act Partial Throm Time (Ptt) (02/15/17 21:17) Prothrombin Time / Inr (Pt) (02/15/17 21:17) Urinalysis - C+S If Indicated (02/15/17 21:17) Chest, Single Ap (02/15/17 21:17) Ecg Monitoring (02/15/17 21:17) Iv Access Insert/Monitor (02/15/17 21:17) Oximetry (02/15/17 21:17) Ondansetron Inj (Zofran Inj) (02/15/17 21:30) Sodium Chloride 0.9% Flush (Ns Flush) (02/15/17 21:30) Sodium Chlor 0.9% 1000 Ml Inj (Ns 1000 M (02/15/17 21:17) Heparin Central Flush (Heparin Central F (02/16/17 00:00) Diet Regular Basic (02/16/17 Breakfast) Labs Laboratory Tests Test 02/15/17 02/15/17 21:30 22:23 White Blood Count 3.2 TH/MM3 Red Blood Count 3.45 MIL/MM3 Hemoglobin 10.3 GM/DL Hematocrit 29.8 % Mean Corpuscular Volume 86.5 FL Mean Corpuscular Hemoglobin 29.9 PG Mean Corpuscular Hemoglobin 34.6 % Concent Red Cell Distribution Width 13.8 % Platelet Count 199 TH/MM3 Mean Platelet Volume 7.9 FL Neutrophils (%) (Auto) 59.0 % Lymphocytes (%) (Auto) 26.0 % Monocytes (%) (Auto) 13.2 % Eosinophils (%) (Auto) 1.2 % Basophils (%) (Auto) 0.6 % Neutrophils # (Auto) 1.9 TH/MM3 Lymphocytes # (Auto) 0.8 TH/MM3 Monocytes # (Auto) 0.4 TH/MM3 Eosinophils # (Auto) 0.0 TH/MM3 Basophils # (Auto) 0.0 TH/MM3 CBC Comment DIFF FINAL Differential Comment Prothrombin Time 11.5 SEC Prothromb Time International 1.0 RATIO Ratio Activated Partial 110.5 SEC Thromboplast Time Sodium Level 138 MEQ/L Potassium Level 4.4 MEQ/L Chloride Level 102 MEQ/L Carbon Dioxide Level 28.0 MEQ/L Anion Gap 8 MEQ/L Blood Urea Nitrogen 15 MG/DL Creatinine 0.81 MG/DL Estimat Glomerular Filtration 75 ML/MIN Rate Random Glucose 267 MG/DL Calcium Level 9.0 MG/DL Magnesium Level 1.7 MG/DL Total Bilirubin 0.3 MG/DL Aspartate Amino Transf 26 U/L (AST/SGOT) Alanine Aminotransferase 21 U/L (ALT/SGPT) Alkaline Phosphatase 68 U/L Total Creatine Kinase 29 U/L Troponin I LESS THAN 0.02 NG/ML Total Protein 6.9 GM/DL Albumin 3.2 GM/DL Urine Color YELLOW Urine Turbidity CLEAR Urine pH 7.0 Urine Specific [place] 1.019 Urine Protein TRACE mg/dL Urine Glucose (UA) 1000 mg/dL Urine Ketones NEG mg/dL Urine Occult Blood NEG Urine Nitrite NEG Urine Bilirubin NEG Urine Urobilinogen LESS THAN 2.0 MG/DL Urine Leukocyte Esterase NEG Urine RBC 5 /hpf Urine WBC 1 /hpf Urine Hyaline Casts 5 /lpf Urine Mucus FEW /lpf Microscopic Urinalysis Comment CATH-CULT NOT IND MDM Medical Decision Making Medical Screen Exam Complete: Yes Emergency Medical Condition: Yes Medical Record Reviewed: Yes Interpretation(s) EKG reviewed by Dr. Francisco shows sinus rhythm with ventricular rate of 89. No STEMI and no changes from previous EKG. Differential Diagnosis Electrolyte abnormality, arrhythmia, orthostatic hypotension, vertigo, pneumonia , UTI, other Narrative Course Patient medical records reviewed. Patient is noted to being evaluated for similar episodes with similar stories in the past on more than one occasion and is noncompliant with her medication. Patient had a CT done the first of last month. Patient PTT is elevated. Blood was obtained through patient's report. Suspect this is likely secondary to patient having port flushed with heparin sometime recently, but she is uncertain the last time it was flushed. 2220 patient reassessed found to be resting comfortably in her bed in no acute distress, legs crossed, and talking on her cell phone. Patient in no obvious distress upon re-evaluation. All pertinent laboratory/ Radiology result(s) discussed with patient. Discussed patient with Dr. Francisco, who saw and evaluated patient and is in agreement with plan of care and disposition. Any questions/concerns in reference to patient diagnosis/ condition discussed and clarified prior to patient's discharge. Reinforced sheer importance of close follow up with patient's primary physician or primary care clinic. Instructed patient to return to ED immediately, if symptoms return/ worsen. Pt showed understanding of above instructions. Further instructions and recommendations were detailed in discharge paperwork. Pt left without difficulty out of ED at discharge. Diagnosis Primary Impression: Orthostatic hypotension Patient Instructions: General Instructions Additional Instructions: Follow-up with your primary care physician in one to 2 days for reevaluation. Take all your medication as prescribed. Return to the emergency department if symptoms get worse. Disposition: 01 DISCHARGE HOME Condition: Stable Kraig Bee Feb 15, 2017 21:32
--- NOTE | 2017-02-15 21:41 | RADRPT ---
EXAM DATE/TIME: 02/15/2017 21:16 [facility] COMPARISON: CHEST SINGLE AP, November 20, 2016, 21:10. INDICATIONS : Dizziness, weakness starting today MEDICAL HISTORY : Carcinoma, esophageal. SURGICAL HISTORY : Pacemaker. Port placement ENCOUNTER: Initial ACUITY: 1 day PAIN SCORE: 0/10 LOCATION: Bilateral chest FINDINGS: No infiltrate, effusion or pneumothorax. Heart size stable, normal. No evidence of lymphadenopathy. Left cardiac pacer with 2 leads again seen . Right IJ central venous [id number] catheter again noted, tip in the superior vena cava. CONCLUSION: No evidence of acute cardiopulmonary disease. Rc Oreilly MD on February 15, 2017 at 21:39 Board Certified Radiologist. This report was verified electronically.
[2017-02-15 21:55] LABS: AUTOMATED NEUTROPHIL # 1.9 TH/MM3 (1.8-7.7); BASOPHIL % 0.6 % (0.0-2.0); EOSINOPHIL % 1.2 % (0.0-4.0); HEMATOCRIT 29.8 % (35.0-46.0); HEMO FLAGS DIFF FINAL; LYMPHOCYTE # 0.8 TH/MM3 (1.0-4.8); MEAN CELL VOLUME 86.5 FL (80.0-100.0); MEAN CORPUSCULAR HEMOGLOBIN 29.9 PG (27.0-34.0); MEAN CORPUSCULAR HGB CONC 34.6 % (32.0-36.0); MONO % 13.2 % (0.0-8.0); PLATELET COUNT 199 TH/MM3 (150-450); RED BLOOD COUNT 3.45 MIL/MM3 (4.00-5.30); RED CELL DISTRIBUTION WIDTH 13.8 % (11.6-17.2); WHITE BLOOD COUNT 3.2 TH/MM3 (4.0-11.0)
[2017-02-15 22:08] LABS: PROTHROMBIN TIME - PATIENT 11.5 SEC (9.8-11.6)
[2017-02-15] MEDS: ONDANSETRON HCL 4 MG/2 ML VIAL IVP ONE ×2 (22:09→22:35)
[2017-02-15 22:14] LABS: APTT (PATIENT) 110.5 SEC (24.3-30.1)
[2017-02-15 22:28] LABS: ALKALINE PHOSPHATASE 68 U/L (45-117); ALT (GPT) 21 U/L (10-53); ANION GAP 8 MEQ/L (5-15); AST (GOT) 26 U/L (15-37); BLOOD UREA NITROGEN 15 MG/DL (7-18); CHLORIDE 102 MEQ/L (98-107); GLOMERULAR FILTRATION RATE 75 ML/MIN (>89); MAGNESIUM 1.7 MG/DL (1.5-2.5); POTASSIUM 4.4 MEQ/L (3.5-5.1); SODIUM (NA) 138 MEQ/L (136-145); TOTAL BILIRUBIN ADULT 0.3 MG/DL (0.2-1.0)
[2017-02-15 22:30] LABS: CREATINE KINASE 29 U/L (26-192)
[2017-02-15] MEDS: SODIUM CHLORIDE 0.9% FLUSH 10 ML FLUSH IVF PRN (22:36)
[2017-02-15 22:59] LABS: BLOOD, URINE NEG (NEG); GLUCOSE,URINE 1000 mg/dL (NEG); HYALINE CAST, URINE 5 /lpf (RARE); KETONE, URINE NEG (NEG); MUCUS URINE FEW /lpf (OCC); NITRITE,URINE NEG (NEG); URINE COLOR YELLOW (YELLW/STRAW)
[2017-02-15 23:02] LABS: COMMENT (UR) CATH-CULT NOT IND; CULTURE IF INDICATED CATH CULTURE NOT IND
[2017-02-15] MEDS ORDERED: VENTAER INH (23:28)
--- NOTE | 2017-02-16 21:07 | EKG ---
Date Performed: 02/15/2017 Time Performed: 22:05:55 PTAGE: 51 years EKG: Sinus rhythm SEPTAL MYOCARDIAL INFARCTION ABNORMAL ECG PREVIOUS TRACING : 02/06/2017 11.05 Compared to prior tracing no significant change DOCTOR: Richie Haro Interpretating Date/Time 02/16/2017 21:04:46
[2017-02-22] MEDS ORDERED: ATOR20TA15 PO (11:12)
[2017-02-22] MEDS ORDERED: EXENINJ SQ (11:14)
[2017-02-22] MEDS ORDERED: SODI1TAB PO (11:16)
[2017-02-22] MEDS ORDERED: MIDO5TAB PO (11:16)
[2017-02-22] MEDS ORDERED: ONDA4TAB6 PO (11:17)
[2017-03-02] MEDS ORDERED: LEVA750T PO (14:35)
[2017-03-02] MEDS ORDERED: BACT800T5 PO (14:36)
[2017-03-21] MEDS ORDERED: GABA400C5 PO (10:02)
[2017-03-21] MEDS ORDERED: LACTPOW68 PO (10:11)
[2017-04-04] MEDS ORDERED: CLIN1CAP6 PO (11:34)
[2017-04-04] MEDS ORDERED: LEVO500T8 PO (11:34)
[2017-04-11] MEDS ORDERED: GLIP1TAB49 PO (11:05)
[2017-05-01] MEDS ORDERED: MIDO5TAB PO (10:08)
[2017-05-01] MEDS ORDERED: GABA400C5 PO (10:08)
[2017-05-01] MEDS ORDERED: SODI1TAB PO (10:09)
== END 2017-02-16 07:10 | disposition home or self-care (01) ==
LOC: NEPC 20:25 → NEPD 02-16 07:10
DX: I95.1 Orthostatic hypotension (principal); I48.91 Unspecified atrial fibrillation; E11.9 Type 2 diabetes mellitus without complications; Z79.4 Long term (current) use of insulin
CPT/HCPCS: 71010; 80053; 81001; 82550; 83735; 84484; 85025; 85610; 85730; 93005; 96361; 96374; 99284; J1642; J2405; J7030

== ENCOUNTER 2017-03-08 15:27 | Inpatient (IN) | payer MEDICARE, OTHER ==
[~2017-03-08] VITALS: Ht 172.7 cm; Wt 73.4 kg
[~2017-03-08 15:27] MED LIST changes: +ATOR20TA15 PO; +BACT800T5 PO; +EXENINJ SQ; -INHALER INH; +LEVA750T PO; -LEVEMIR SQ; +MIDO5TAB PO; +ONDA4TAB6 PO; +SODI1TAB PO; +VENTAER INH
[2017-03-08 15:36] VITALS: BP 144/82; PULSE 90; RESP 16; TEMP 98.2; O2SAT 98
--- NOTE | 2017-03-08 15:45 | PD ---
Physical Exam Time Seen by Provider: 15:44 Narrative 51 y/o female here for evaluation of R 3rd finger pain, R foot pain for an unknown duration of time, as well as dizziness and a fall at 05/16. Vital signs reviewed. Seen at triage desk. Awaiting bed placement. Data Data Last Documented VS Vital Signs Date Time Temp Pulse Resp B/P Pulse Ox O2 Delivery O2 Flow Rate FiO2 03/08/17 15:36 98.2 90 16 144/82 98 MDM Medical Record Reviewed: Yes Supervised Visit with DARIAN: Zhen Moody March 08, 2017 15:45
[2017-03-08] MEDS ORDERED: SODIUM CHLOR 0.9% 1000 ML INJ 1,000 ML IV ONE (17:26)
[2017-03-08] MEDS ORDERED: SODIUM CHLORIDE 0.9% FLUSH 10 ML FLUSH IVF PRN (17:30)
--- NOTE | 2017-03-08 17:58 | RADRPT ---
EXAM DATE/TIME: 03/08/2017 17:39 [facility] COMPARISON: CHEST SINGLE AP, February 15, 2017, 21:16. INDICATIONS : Syncope. MEDICAL HISTORY : Diabetes mellitus type II. SURGICAL HISTORY : Pacemaker. ENCOUNTER: Initial ACUITY: 1 day PAIN SCORE: 0/10 LOCATION: Bilateral chest FINDINGS: A single view of the chest demonstrates the lungs to be symmetrically aerated without evidence of mas s, infiltrate or effusion. The cardiomediastinal contours are unremarkable. Osseous structures are intact. A power port overlies the right chest. Pacing device overlies the left chest. CONCLUSION: No acute disease. Lloyd Joyce Jr., MD on March 08, 2017 at 17:56 Board Certified Radiologist. This report was verified electronically.
--- NOTE | 2017-03-08 17:58 | PD ---
HPI Chief Complaint: Medical Clearance Time Seen by Provider: 17:04 Travel History International Travel<30 days: No Contact w/Intl Traveler<30days: No Traveled to known affect area: No History of Present Illness HPI Patient is a 51 year old female with history of DM, oral cancer, hypertension presents to ER with multiple complaints. Patient reports that she usually uses a wheelchair to ambulate but reports that her wheelchair is broken so she has been using her walker. Reports that she was at the store yesterday afternoon and fell from her walker. Patient unsure if she had LOC or if she hit or head or when she came to. Reports "I don't remember what happened." Patient reports that today, she is not feeling any better, reports that she does feel a little dizzy and has been feeling nauseous. Patient reports that she has an infection to her right big toe - she did see her pcp (Dr. Janice Barker) on 02/22/17 and reports that she was treated for her right big toe infection with antibiotics. At that time, it was noted that patient had a right great toe ulceration with no odor or exudate or surrounding erythema. She was discharged to home with referral to podiatry and to wound care as it appears that patient is an overall poorly controlled diabetic who is noncompliant with her medications. Patient did follow up with her pcp on 03/02/[address] Tavares Moreno for her right toe infection. At that time, there was moderate, nonpitting edema to her right foot with diffuse erythema and second degree ulcer with surrounding granulation tissue and mild amount of yellow slough to her toe. She was started on levaquin and bactrim and was told to follow up with podiatry on . Patient reports that she is not getting any better and thinks that her infection is worse. Patient was told to go to the ER if symptoms worsened. PFSH Past Medical History Hx Anticoagulant Therapy: No Asthma: Yes Atrial Fibrillation: Yes Heart Rhythm Problems: Yes (Pacemaker) Cancer: Yes (oropharyngeal cancer) Cardiovascular Problems: Yes Chemotherapy: Yes Chest Pain: Yes Cerebrovascular Accident: Yes Diabetes: Yes Patient Takes Glucophage: No Diminished Hearing: No Endocrine: Yes Gastrointestinal Disorders: Yes (esophagitis, gastritis, pancreantitis, HEP C) Genitourinary: Yes (FREQUENT UTIs) Headaches: Yes Hepatitis: Yes (HEP C) Heparin Induced Thrombocytopen: No Hypertension: Yes Implanted Vascular Access Dvce: Yes (PORT R CHEST, PACEMAKER L CHEST) Kidney Stones: Yes Musculoskeletal: Yes (BACK PAIN) Neurologic: Yes (CVA, no deficits ) Reproductive: Yes (GENITAL WARTS YEARS AGO) Respiratory: Yes (ASTHMA) Immunizations Current: Yes Migraines: Yes Radiation Therapy: Yes (LAST DONE ON 11/18/16) Triglycerides - High: Yes Tetanus Vaccination: < 5 Years PNEUMOCCOCAL Vaccine (Year): 2 ?: Not Menopausal: Yes : 3 Para: 2 Miscarriage: 1 Past Surgical History Abdominal Surgery: Yes Appendectomy: Yes Body Medical Devices: PACEMAKER; LEG STENT; PORT PLACED Cardiac Surgery: Yes (L FEMORAL STENT, PACEMAKER) Section: Yes (x1) Cholecystectomy: Yes Oral Surgery: Yes Pacemaker: Yes (ST JUDES) Tonsillectomy: Yes Other Surgery: Yes (LEG STENTS left legs, PORT PLACED- RIGHT 2015) Social History Alcohol Use: No Tobacco Use: No Substance Use: No Allergies-Medications (Allergen,Severity, Reaction): Coded Allergies: Compazine (Verified Allergy, Severe, 03/08/17) ANXIETY Ultram (Verified Allergy, Intermediate, Rash, 03/08/17) MRI PRECAUTION (Verified Adverse Reaction, Severe, PACEMAKER IS NOT A BIOTRONIK OR MEDTRONIC 06/15/16 KMD, 03/08/17) PACEMAKER IS NOT A BIOTRONIK OR MEDTRONIC CONDITIONAL PACEMAKER. CALLED BOTH COMPANIES TO CONFIRM. Percocet (Verified Adverse Reaction, Severe, Nausea/Vomiting, 03/08/17) *MDRO Multi-Drug Resistant Organism (Verified Adverse Reaction, Unknown, ESBL, MRSA, 03/08/17) E. coli ESBL (urine) - 2012, 2013, 2014, 04/2016, 02/03/2017 MRSA - 2004, 03/2015 (toe wound), 10/2015 (arm/back wound), (foot-08/17/16 & 01/11/17) Metformin (Verified Adverse Reaction, Unknown, DIARRHEA, 03/08/17) Morphine (Verified Adverse Reaction, Unknown, Dizziness, 03/08/17) states doesn't want-does not like the way it makes me feel Reported Meds & Prescriptions Reported Meds & Active Scripts Active Ondansetron HCl 4 Mg Tab 1 Tab PO Q6HR PRN Midodrine 5 Mg Tab 5 Mg PO TID Sodium Chloride 1 Gm Tab 1 Gm PO DAILY Bydureon Inj (Exenatide) 2 Mg Vial 2 Mg SQ Q7D Atorvastatin (Atorvastatin Calcium) 20 Mg Tab 20 Mg PO HS Gabapentin 400 Mg Cap 400 Mg PO TID Januvia (Sitagliptin Phosphate) 100 Mg Tab 100 Mg PO DAILY Imodium A-D (Loperamide HCl) 2 Mg Cap 2 Mg PO Q6H PRN Reported Ventolin Hfa 18 GM Inh (Albuterol Sulfate) 90 Mcg/Act Aer 1-2 Puff INH Q6HR PRN Review of Systems General / Constitutional: No: Fever Eyes: No: Visual changes HENT: No: Headaches Cardiovascular: No: Chest Pain or Discomfort Respiratory: No: Shortness of Breath Gastrointestinal: No: Abdominal Pain Genitourinary: No: Dysuria Musculoskeletal: Positive: Pain (right big toe pain) Skin: No Rash Neurologic: Positive: Dizziness, Syncope, No: Weakness Psychiatric: No: Depression Endocrine: No: Polydipsia Hematologic/Lymphatic: No: Easy Bruising Physical Exam Narrative GENERAL: mild distress SKIN: Focused skin assessment warm/dry. HEAD: Atraumatic. Normocephalic. EYES: Pupils equal and round. No scleral icterus. No injection or drainage. ENT: No nasal bleeding or discharge. Mucous membranes pink and moist. NECK: Trachea midline. No JVD. CARDIOVASCULAR: Regular rate and rhythm. No murmur appreciated. RESPIRATORY: No accessory muscle use. Clear to auscultation. Breath sounds equal bilaterally. GASTROINTESTINAL: Abdomen soft, non-tender, nondistended. Hepatic and splenic margins not palpable. MUSCULOSKELETAL: No obvious deformities. No clubbing. 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 No obvious cranial nerve deficits. Motor grossly within normal limits. Normal speech. PSYCHIATRIC: Appropriate mood and affect; insight and judgment normal. Data Data Last Documented VS Vital Signs Date Time Temp Pulse Resp B/P Pulse Ox O2 Delivery O2 Flow Rate FiO2 03/08/17 19:00 91 22 136/93 96 Room Air 03/08/17 15:36 98.2 Orders Electrocardiogram (03/08/17 17:26) Complete Blood Count With Diff (03/08/17 17:) Comprehensive Metabolic Panel (03/08/17 17:) Magnesium (Mg) (03/08/17:) Ckmb (Isoenzyme) Profile (03/08/17) Troponin I (03/08/17) Act Partial Throm Time (Ptt) (03/08/17:) Prothrombin Time / Inr (Pt) (03/08/17) Urinalysis - C+S If Indicated (03/08/17) Chest, Single Ap (03/08/17:) Ct Brain W/O Iv Contrast(Rout) (03/08/17:) Ecg Monitoring (03/08/17) Iv Access Insert/Monitor (03/08/17) Oximetry (03/08/17) Sodium Chloride 0.9% Flush (Ns Flush) (03/08/17 17:30) Sodium Chlor 0.9% 1000 Ml Inj (Ns 1000 M (03/08/17 17:) Lipase (03/08/17 17:26) Foot, Complete ([id number]) (03/08/17 ) Hand, Complete ([id number]) (03/08/17 ) Vancomycin Inj (Vancomycin Inj) (03/08/17 19:45) Urine Culture (03/08/17 19:39) Ceftriaxone Inj (Rocephin Inj) (03/08/17 20:30) Admit Order (Ed Use Only) (03/08/17 20:21) Labs Laboratory Tests Test 03/08/17 03/08/17 18:10 19:39 White Blood Count 4.8 TH/MM3 Red Blood Count 3.72 MIL/MM3 Hemoglobin 10.7 GM/DL Hematocrit 31.9 % Mean Corpuscular Volume 85.7 FL Mean Corpuscular Hemoglobin 28.8 PG Mean Corpuscular Hemoglobin 33.6 % Concent Red Cell Distribution Width 13.9 % Platelet Count 228 TH/MM3 Mean Platelet Volume 8.1 FL Neutrophils (%) (Auto) 66.3 % Lymphocytes (%) (Auto) 21.4 % Monocytes (%) (Auto) 10.3 % Eosinophils (%) (Auto) 1.3 % Basophils (%) (Auto) 0.7 % Neutrophils # (Auto) 3.2 TH/MM3 Lymphocytes # (Auto) 1.0 TH/MM3 Monocytes # (Auto) 0.5 TH/MM3 Eosinophils # (Auto) 0.1 TH/MM3 Basophils # (Auto) 0.0 TH/MM3 CBC Comment DIFF FINAL Differential Comment Prothrombin Time 11.1 SEC Prothromb Time International 1.0 RATIO Ratio Activated Partial 26.6 SEC Thromboplast Time Sodium Level 138 MEQ/L Potassium Level 3.9 MEQ/L Chloride Level 98 MEQ/L Carbon Dioxide Level 30.9 MEQ/L Anion Gap 9 MEQ/L Blood Urea Nitrogen 41 MG/DL Creatinine 0.99 MG/DL Estimat Glomerular Filtration 59 ML/MIN Rate Random Glucose 177 MG/DL Calcium Level 10.1 MG/DL Magnesium Level 2.0 MG/DL Total Bilirubin 0.4 MG/DL Aspartate Amino Transf 13 U/L (AST/SGOT) Alanine Aminotransferase 22 U/L (ALT/SGPT) Alkaline Phosphatase 96 U/L Total Creatine Kinase 21 U/L Troponin I LESS THAN 0.02 NG/ML Total Protein 8.0 GM/DL Albumin 3.4 GM/DL Lipase 162 U/L Urine Color YELLOW Urine Turbidity HAZY Urine pH 7.0 Urine Specific [place] 1.022 Urine Protein 30 mg/dL Urine Glucose (UA) NEG mg/dL Urine Ketones 10 mg/dL Urine Occult Blood NEG Urine Nitrite NEG Urine Bilirubin NEG Urine Urobilinogen LESS THAN 2.0 MG/DL Urine Leukocyte Esterase MOD Urine RBC 6 /hpf Urine WBC 9 /hpf Urine Squamous Epithelial 16 /hpf Cells Urine Amorphous Sediment RARE Urine Bacteria MANY /hpf Urine Hyaline Casts 3 /lpf Urine Mucus FEW /lpf Microscopic Urinalysis Comment CULTURE INDICATED MDM Medical Decision Making Medical Screen Exam Complete: Yes Emergency Medical Condition: Yes Interpretation(s) Vital Signs Date Time Temp Pulse Resp B/P Pulse Ox O2 Delivery O2 Flow Rate FiO2 03/08/17 15:36 98.2 90 16 144/82 98 Differential Diagnosis Osteomyelitis versus cellulitis of her right foot digit #1, syncope versus presyncopal episode, ACS, electrolyte abnormality, UTI Narrative Course Patient is a 51-year-old female with multiple complaints. Reports that she is a poorly controlled diabetic, she reports that yesterday she was at a store and was using her walker and fell from her walker. Patient cannot remember or cannot tell me the circumstances of her fall, reports that she does not remember getting up, her boyfriend was apparently with her at that time and "knows the whole story." Patient's boyfriend is currently not bedside. Patient reports that today, she reports that she has not been feeling well. She reports that she also looked at her right toe digit 1, reports that she was recently on antibiotics and completed full course of antibiotics, was at her toe looks more infected and was told to go to the emergency room if the antibiotics did not help her toe. Patient with syncopal versus presyncopal episode yesterday, I am unsure of the circumstances of her fall yesterday. Plan to obtain CT to the head, EKG, lab work. Patient also with a nonhealing infection to her right toe digit 1, x-ray of the foot will be obtained to look for osteomyelitis. Will treat with IV vancomycin. Ultimately, patient will require admission for failed outpatient treatment of right toe infection. case reviewed with residents who accepts pt to service Diagnosis Primary Impression: Diabetic foot infection Additional Impressions: Syncope UTI (lower urinary tract infection) Admitting Information Admitting Physician Requests: Observation Mini Chambers DO March 08, 2017 17:58
--- NOTE | 2017-03-08 18:00 | RADRPT ---
EXAM DATE/TIME: 03/08/2017 17:48 [facility] COMPARISON: No previous studies available for comparison. INDICATIONS : Right hand pain after passing out and falling. MEDICAL HISTORY : None. SURGICAL HISTORY : None. ENCOUNTER: Initial ACUITY: 2 days PAIN SCORE: 5/10 LOCATION: Right hand. FINDINGS: 3 views of the right hand reveal old trauma to the fifth metacarpal. No acute fracture. Soft tissues are unremarkable. Joint spaces are preserved. CONCLUSION: No acute abnormality. Lloyd Joyce Jr., MD on March 08, 2017 at 17:58 Board Certified Radiologist. This report was verified electronically.
--- NOTE | 2017-03-08 18:01 | RADRPT ---
EXAM DATE/TIME: 03/08/2017 17:42 [facility] COMPARISON: FOOT RIGHT COMPLETE ([id number]), January 16, 2017, 20:49. INDICATIONS : Right foot pain after passing out and falling. MEDICAL HISTORY : None. SURGICAL HISTORY : right foot, 5th digit amputation. ENCOUNTER: Initial ACUITY: 2 days PAIN SCORE: 4/10 LOCATION: Right foot. FINDINGS: There has been previous fifth toe amputation at the transmetatarsal level. There is bony remodeling i nvolving the second toe proximal phalanx which may reflect old injury. There are mild degenerative ch anges. There are vascular calcifications in the soft tissues. Moderate-sized plantar heel spur is not ed. Mild soft tissue swelling appears to be fairly stable. CONCLUSION: No definite acute bony process Rc Cruz MD on March 08, 2017 at 17:56 Board Certified Radiologist. This report was verified electronically.
--- NOTE | 2017-03-08 18:03 | RADRPT ---
EXAM DATE/TIME: 03/08/2017 17:54 [facility] COMPARISON: CT BRAIN W/O CONTRAST, February 03, 2017, 19:55. INDICATIONS : Dizziness. RADIATION DOSE: 45.04 CTDIvol (mGy) MEDICAL HISTORY : Cerebrovascular disease. Cardiovascular disease Hypertension.Diabetes Hep C SURGICAL HISTORY : Appendectomy. Hysterectomy.Cholecystectomy. ENCOUNTER: Initial ACUITY: 1 day PAIN SCALE: 0/10 LOCATION: cranial TECHNIQUE: Multiple contiguous axial images were obtained of the head. Using automated exposure control and adj ustment of the mA and/or kV according to patient size, radiation dose was kept as low as reasonably a chievable to obtain optimal diagnostic quality images. FINDINGS: CEREBRUM: The ventricles are normal for age. No evidence of midline shift, mass lesion, hemorrhage or acute in farction. No extra-axial fluid collections are seen. POSTERIOR FOSSA: The cerebellum and brainstem are intact. The 4th ventricle is midline. The cerebellopontine angle i s unremarkable. EXTRACRANIAL: The visualized portion of the orbits is intact. There is persistent significant fluid in the right-si ded mastoid air cells. SKULL: The calvaria is intact. No evidence of skull fracture. CONCLUSION: Right-sided mastoiditis. No acute intracranial findings Rc Cruz MD on March 08, 2017 at 18:00 Board Certified Radiologist. This report was verified electronically.
[2017-03-08 18:18] VITALS: O2SAT 97
[2017-03-08 18:47] LABS: AUTOMATED NEUTROPHIL # 3.2 TH/MM3 (1.8-7.7); BASOPHIL % 0.7 % (0.0-2.0); EOSINOPHIL # 0.1 TH/MM3 (0-0.4); EOSINOPHIL % 1.3 % (0.0-4.0); HEMATOCRIT 31.9 % (35.0-46.0); HEMO FLAGS DIFF FINAL; LYMPH % 21.4 % (9.0-44.0); MEAN CELL VOLUME 85.7 FL (80.0-100.0); MEAN CORPUSCULAR HEMOGLOBIN 28.8 PG (27.0-34.0); MEAN CORPUSCULAR HGB CONC 33.6 % (32.0-36.0); MONO % 10.3 % (0.0-8.0); NEUT % 66.3 % (16.0-70.0); PLATELET COUNT 228 TH/MM3 (150-450); RED BLOOD COUNT 3.72 MIL/MM3 (4.00-5.30); RED CELL DISTRIBUTION WIDTH 13.9 % (11.6-17.2); WHITE BLOOD COUNT 4.8 TH/MM3 (4.0-11.0)
[2017-03-08 18:58] LABS: ANION GAP 9 MEQ/L (5-15); AST (GOT) 13 U/L (15-37); BICARBONATE 30.9 MEQ/L (21.0-32.0); BLOOD UREA NITROGEN 41 MG/DL (7-18); CHLORIDE 98 MEQ/L (98-107); GLOMERULAR FILTRATION RATE 59 ML/MIN (>89); POTASSIUM 3.9 MEQ/L (3.5-5.1); SODIUM (NA) 138 MEQ/L (136-145)
[2017-03-08 19:00] VITALS: BP 136/93; PULSE 91; RESP 22; O2SAT 96
[2017-03-08 19:00] LABS: APTT (PATIENT) 26.6 SEC (24.3-30.1); PROTHROMBIN TIME - PATIENT 11.1 SEC (9.8-11.6)
[2017-03-08 19:02] LABS: ALKALINE PHOSPHATASE 96 U/L (45-117); ALT (GPT) 22 U/L (10-53); TOTAL BILIRUBIN ADULT 0.4 MG/DL (0.2-1.0)
[2017-03-08 19:14] LABS: CREATINE KINASE 21 U/L (26-192)
[2017-03-08] MEDS ORDERED: VANCOMYCIN INJ 1,050 MG in SODIUM CHLOR 0.9% 250 ML INJ 250 ML IV ONE (19:45)
[2017-03-08 20:12] LABS: BACTERIA, URINE MANY /hpf; BLOOD, URINE NEG (NEG); COMMENT (UR) CULTURE INDICATED; CULTURE IF INDICATED CULTURE INDICATED; GLUCOSE,URINE NEG (NEG); HYALINE CAST, URINE 3 /lpf (RARE); KETONE, URINE 10 mg/dL (NEG); MUCUS URINE FEW /lpf (OCC); NITRITE,URINE NEG (NEG); SQUAMOUS EPITHELIAL CELL URINE 16 /hpf (0-5); URINE COLOR YELLOW (YELLW/STRAW)
[2017-03-08] MEDS ORDERED: cefTRIAXone INJ 1,000 MG in SODIUM CHLORIDE 0.9% INJ 50 ML IV ONE (20:30)
[2017-03-08 21:00] VITALS: BP 153/83; PULSE 88; RESP 19; O2SAT 96
[2017-03-08] MEDS ORDERED: SODIUM CHLORIDE 0.9% FLUSH 10 ML FLUSH IV FLUSH PRN (21:15)
[2017-03-08] MEDS ORDERED: DOCUSATE SODIUM 50 MG/SENNA 8.6 MG TAB PO PRN (21:15)
[2017-03-08] MEDS ORDERED: RESP: ALBUTEROL 2.5 MG/3 ML NEB (PRN) INH (21:15)
[2017-03-08] MEDS ORDERED: ACETAMINOPHEN 325 MG TAB PO PRN (21:15)
[2017-03-08] MEDS ORDERED: ONDANSETRON HCL 4 MG/2 ML VIAL IVP PRN (21:15)
[2017-03-08] MEDS ORDERED: Vancomycin Consult Pharmacy 1 EA OTHER SCH (21:15)
[2017-03-08] MEDS ORDERED: NALOXONE HCL 0.4 MG/ML AMP IV PRN (21:15)
[2017-03-08] MEDS: SODIUM CHLORIDE 0.9% FLUSH 10 ML FLUSH IV FLUSH SCH (21:15)
[2017-03-08] MEDS ORDERED: ENOXAPARIN SODIUM 40 MG/0.4 ML SYRINGE SQ SCH (21:30)
--- NOTE | 2017-03-08 21:32 | HHI.HP ---
[facility] Service Family Medicine Primary Care Physician Janice Barker MD Admission Diagnosis toe infection, failed outpatient treatment, syncope Diagnoses: International Travel<30 Days: No Contact w/Intl Traveler<30days: No Known Affected Area: No History of Present Illness Patient is a 51 year old female with extensive PMH including poorly-controlled DM secondary to noncompliance, h/o osteomyelitis s/p right 5th toe amputation, orthostatic hypotension, peripheral neuropathy, peripheral vascular disease, hepatitis C, right great toe infection for which she receives home health for wound care and PT, who presents to the ED with multiple complaints. She states she usually uses a wheelchair to get around however reports that one wheel of her wheelchair is not working so she has been using her walker recently. She states she was at a convenient store yesterday afternoon using her walker and fell inside the store. She is unable to provide many details regarding the fall. She states she does not think she hit her head. She denies any dizziness prior to the fall or dizziness currently. Denies history of seizures. Denies any pain currently. Denies headache, visual symptoms, no chest pain. She does state she has infrequently had falls at home in the past but cannot state how many or how often. She was seen by Dr. Salomon Paz at [facility] on 02/08/2017 due to frequent falls and had complaints of dizziness when going from sitting to standing at that time c/w orthostatic hypotension. The patient was instructed to increase hydration and continue her sodium tablets, diabetic education provided to improve compliance with her medications, and her prescription of gabapentin was changed from 800 mg bid to 400 mg tid if possibly contributing to her symptoms. Patient also reports a right great toe infection that she states she believes has been worsening lately. Patient was seen by Dr. Moreno at [facility] on regarding her right great toe infection and was given prescriptions for Levaquin and Bactrim and was instructed to follow up with her podiatry appointment on 03/06/2017. She states she does not think her infection had improved at any time since beginning therapy. She denies noticing any discharge from the site. She denies pain at all and states she is not able to feel any due to her neuropathy. Denies history of trauma to the area. Denies fevers or chills. A wound culture of her foot from 01/11/2017 grew MRSA sensitive to vancomycin. Patient was admitted here from 01/16-01/20 for this same issue and had a wound culture growing MRSA, pseudomonas, and aerococcus. Review of Systems Constitutional: COMPLAINS OF: Dizziness, DENIES: Fever, Chills, Change in appetite Eyes: DENIES: Blurred vision, Diplopia, Double Vision Respiratory: DENIES: Cough, Wheezing, Sputum production, Shortness of breath Cardiovascular: DENIES: Chest pain, Palpitations, Lower Extremity Edema Gastrointestinal: DENIES: Abdominal pain, Black stools, Constipation, Diarrhea , Nausea, Vomiting Neurologic: COMPLAINS OF: Abnormal gait, DENIES: Headache, Seizures Past Family Social History Past Medical History Insulin-dependent DM diagnosed in 2006 History of osteomyelitis (s/p right 5th toe amputation) 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 Umanzor) Peripheral neuropathy Hypertension (hypotensive after chemotherapy initiation) Hyperlipidemia AICD in place Peripheral vascular disease Asthma Hepatitis C Genital herpes and warts Osteoarthritis Cataracts History of pancreatitis History of recurrent UTIs Past Surgical History Cholecystectomy Appendectomy Tonsillectomy Right 5th digit amputation Pacemaker placement Left femoral stent Reported Medications Reported Meds & Active Scripts Active Ondansetron HCl 4 Mg Tab 1 Tab PO Q6HR PRN Midodrine 5 Mg Tab 5 Mg PO TID Sodium Chloride 1 Gm Tab 1 Gm PO DAILY Bydureon Inj (Exenatide) 2 Mg Vial 2 Mg SQ Q7D Atorvastatin (Atorvastatin Calcium) 20 Mg Tab 20 Mg PO HS Gabapentin 400 Mg Cap 400 Mg PO TID Januvia (Sitagliptin Phosphate) 100 Mg Tab 100 Mg PO DAILY Imodium A-D (Loperamide HCl) 2 Mg Cap 2 Mg PO Q6H PRN Reported Ventolin Hfa 18 GM Inh (Albuterol Sulfate) 90 Mcg/Act Aer 1-2 Puff INH Q6HR PRN Allergies: Coded Allergies: Compazine (Verified Allergy, Severe, 03/08/17) ANXIETY Ultram (Verified Allergy, Intermediate, Rash, 03/08/17) MRI PRECAUTION (Verified Adverse Reaction, Severe, PACEMAKER IS NOT A BIOTRONIK OR MEDTRONIC 06/15/16 KMD, 03/08/17) PACEMAKER IS NOT A BIOTRONIK OR MEDTRONIC CONDITIONAL PACEMAKER. CALLED BOTH COMPANIES TO CONFIRM. Percocet (Verified Adverse Reaction, Severe, Nausea/Vomiting, 03/08/17) *MDRO Multi-Drug Resistant Organism (Verified Adverse Reaction, Unknown, ESBL, MRSA, 03/08/17) E. coli ESBL (urine) - 2012, 2013, 2014, 04/2016, 02/03/2017 MRSA - 2003, 03/2015 (toe wound), 10/2015 (arm/back wound), (foot-08/17/16 & 01/11/17) Metformin (Verified Adverse Reaction, Unknown, DIARRHEA, 03/08/17) Morphine (Verified Adverse Reaction, Unknown, Dizziness, 03/08/17) states doesn't want-does not like the way it makes me feel Family History Mother: but unsure of medical history Father: , heart disease Sister: CAD Two healthy children (son and daughter) History of cancers in the family but unsure of who or what kind Social History Tobacco: quit in 2003, smoked about 1/2 PPD x 14 years prior to quitting Etoh: denies Illicit drugs: denies Unemployed, disabled Physical Exam Vital Signs Vital Signs Date Time Temp Pulse Resp B/P Pulse Ox O2 Delivery O2 Flow Rate FiO2 03/08/17 19:00 91 22 136/93 96 Room Air 03/08/17 18:18 97 03/08/17 15:36 98.2 90 16 144/82 98 Physical Exam GENERAL: NAD, resting comfortably in bed NEURO: AOx3. Normal speech. wool dyer grossly intact. Motor grossly intact. No light touch perception up to mid-tibias bilaterally. Light touch intact in fingers and upper extremities. SKIN: Warm and dry. Right foot with julia. 2x2 cm area of ulceration of plantar surface of great toe with erythema and mild edema. Absent right fifth digit. DP and PT pulses are intact bilaterally. Able to move toes. Nontender to palpation. Right third finger with julia. 1x1 cm circular area of ulceration that is dry and nontender to palpation. HEAD: Normocephalic. Atraumatic. EYES: PERRL. EOMI. No scleral icterus. No injection or drainage. ENT: No nasal drainage. Moist mucous membranes. No oral ulcers or lesions. NECK: Supple, trachea midline. No JVD or lymphadenopathy. No carotid bruits. CARDIOVASCULAR: Regular rate and rhythm without murmurs, rubs, or gallops. Peripheral pulses 2+. Capillary refill < 2 seconds. RESPIRATORY: Breath sounds clear to auscultation and equal bilaterally, without wheezes, rales, or rhonchi. No accessory muscle use. GASTROINTESTINAL: Abdomen soft, nontender, nondistended, normal BS. No organomegaly or masses. No rebound tenderness. No guarding. MUSCULOSKELETAL: No edema, cyanosis, or clubbing. 4/5 strength upper and lower extremities. BACK: Nontender without obvious deformity. Laboratory Laboratory Tests Test 03/08/17 03/08/17 18:10 19:39 White Blood Count 4.8 Red Blood Count 3.72 Hemoglobin 10.7 Hematocrit 31.9 Mean Corpuscular Volume 85.7 Mean Corpuscular Hemoglobin 28.8 Mean Corpuscular Hemoglobin 33.6 Concent Red Cell Distribution Width 13.9 Platelet Count 228 Mean Platelet Volume 8.1 Neutrophils (%) (Auto) 66.3 Lymphocytes (%) (Auto) 21.4 Monocytes (%) (Auto) 10.3 Eosinophils (%) (Auto) 1.3 Basophils (%) (Auto) 0.7 Neutrophils # (Auto) 3.2 Lymphocytes # (Auto) 1.0 Monocytes # (Auto) 0.5 Eosinophils # (Auto) 0.1 Basophils # (Auto) 0.0 CBC Comment DIFF FINAL Differential Comment Prothrombin Time 11.1 Prothromb Time International 1.0 Ratio Activated Partial 26.6 Thromboplast Time Sodium Level 138 Potassium Level 3.9 Chloride Level 98 Carbon Dioxide Level 30.9 Anion Gap 9 Blood Urea Nitrogen 41 Creatinine 0.99 Estimat Glomerular Filtration 59 Rate Random Glucose 177 Calcium Level 10.1 Magnesium Level 2.0 Total Bilirubin 0.4 Aspartate Amino Transf 13 (AST/SGOT) Alanine Aminotransferase 22 (ALT/SGPT) Alkaline Phosphatase 96 Total Creatine Kinase 21 Troponin I LESS THAN 0.02 Total Protein 8.0 Albumin 3.4 Lipase 162 Urine Color YELLOW Urine Turbidity HAZY Urine pH 7.0 Urine Specific [place] 1.022 Urine Protein 30 Urine Glucose (UA) NEG Urine Ketones 10 Urine Occult Blood NEG Urine Nitrite NEG Urine Bilirubin NEG Urine Urobilinogen LESS THAN 2.0 Urine Leukocyte Esterase MOD Urine RBC 6 Urine WBC 9 Urine Squamous Epithelial 16 Cells Urine Amorphous Sediment RARE Urine Bacteria MANY Urine Hyaline Casts 3 Urine Mucus FEW Microscopic Urinalysis Comment CULTURE INDICATED Date/Time Procedure Status Source Growth 03/08/17 19:39 Urine Culture Received Urine Random Urine Pending Result Diagram: 03/08/17180903/08/171809 Septic Shock Reassessment Heart: Regular rate and rhythm Lungs: Clear Skin: Warm, Dry Peripheral Pulses: Bounding Right Radial Bounding Left Radial Bounding Right Dorsalis Pedis Bounding Left Dorsalis Pedis Bounding Right Posterior Tibial Bounding Left Posterior Tibial Capillary Refill: <2 seconds Assessment and Plan Assessment and Plan 51 year old female with extensive PMH including poorly-controlled DM secondary to noncompliance, h/o osteomyelitis s/p right 5th toe amputation, orthostatic hypotension, peripheral neuropathy, hepatitis C, and right great toe infection for which she receives home health for wound care and PT presented following a fall yesterday afternoon and with complaints of worsening right great toe infection. Code Status Full code Discussed Condition With Dr. Forman Problem List: (1) Cellulitis of great toe Status: Chronic Plan: Patient has had failed outpatient treatment of her right great toe infection with Levaquin and Bactrim Right third finger also with a small area of ulceration that is dry and nontender Foot x-ray does not show any acute bony process Hand x-ray is negative No systemic symptoms, the wound is relatively superficial and more likely cellulitis and not osteomyelitis at this time Will obtain ESR or MRI if suspicion for osteomyelitis rises S/p 1L NS bolus in ED and 1,050 mg of IV Vancomycin Broad-spectrum antibiotics to include MRSA and pseudomonas coverage - Continue vancomycin, pharmacy consult - Zosyn 4.5 gm IV q6h - Obtain wound culture - Patient denies any acute pain, does report chronic neuropathic pain - Continue gabapentin 400 mg po tid - Consult wound care (2) Frequent falls Status: Chronic Plan: - Patient had been using a wheelchair prior to recently using a walker at the time of her fall - Etiology is likely multifactorial, patient has a h/o orthostatic hypotension and vestibular dysfunction, peripheral neuropathy, and deconditioning all could be contributing - RRR on exam; EKG is in sinus rhythm, rate of about 90 bpm, no ST changes - Troponin in ED less than 0.02 - No carotid bruits appreciated, defer carotid US at this time - Electrolytes are WNLs; does not appear dehydrated - No h/o seizures - OOB with assistance only - Consult PT (3) DM (diabetes mellitus), type 2, uncontrolled w/neurologic complication Status: Chronic Plan: - Bedside glucoses ACHS - Levemir 5 units subq q12h - Low-dose Novolog ISS - Hold home [place] and [place] (4) Abnormal urinalysis Status: Acute Plan: Urine culture pending S/p 1gm IV Rocephin in ED Follow culture (5) Nutrition, metabolism, and development symptoms Status: Acute Plan: Fluids: NS at 100 cc/hr Diet: 1800 ADA BP on admission 144/82; patient also has a h/o hypotension and had been started on midodrine 5 mg po tid, will hold midodrine and continue to monitor vitals q4h Physician Certification 2 Midnight Certification Type: Admission for Inpatient Services Order for Inpatient Services The services are ordered in accordance with Medicare regulations or non- Medicare payer requirements, as applicable. In the case of services not specified as inpatient-only, they are appropriately provided as inpatient services in accordance with the 2-midnight benchmark. Estimated LOS (days): 2 days is the estimated time the patient will need to remain in the hospital, assuming treatment plan goals are met and no additional complications. Post-Hospital Plan: Home Problem Qualifiers (1) Cellulitis of great toe: Qualified Code: L03.031 - Cellulitis of great toe, right Tashi Lindsay MD R1 March 08, 2017 21:32
[2017-03-08] MEDS: INSULIN DETEMIR 100 UNITS/ML VIAL SQ SCH (22:51)
[2017-03-08] MEDS: SODIUM CHLOR 0.9% 1000 ML INJ 1,000 ML IV SCH (22:52)
[2017-03-08] MEDS: PIPERACIL-TAZO 4.5 GM PREMIX 100 ML IV SCH (22:52)
[2017-03-08] MEDS: GABAPENTIN 400 MG CAP PO SCH (23:16)
[2017-03-08] MEDS: ATORVASTATIN 20 MG TAB PO SCH (23:16)
[2017-03-09] VITALS: BP 128/69; PULSE 86; RESP 22; TEMP 98.4; O2SAT 98
[2017-03-09] MEDS: PIPERACIL-TAZO 4.5 GM PREMIX 100 ML IV SCH ×4 (06:12→21:41)
[2017-03-09] MEDS: INSULIN ASPART SUPPLEMENTAL SCALE SQ SCH ×4 (06:57→21:00)
[2017-03-09 07:13] LABS: AUTOMATED NEUTROPHIL # 2.6 TH/MM3 (1.8-7.7); BASOPHIL % 0.9 % (0.0-2.0); HEMATOCRIT 28.5 % (35.0-46.0); HEMO FLAGS DIFF FINAL; LYMPH % 21.4 % (9.0-44.0); LYMPHOCYTE # 0.8 TH/MM3 (1.0-4.8); MEAN CELL VOLUME 86.3 FL (80.0-100.0); MEAN CORPUSCULAR HEMOGLOBIN 28.5 PG (27.0-34.0); MEAN CORPUSCULAR HGB CONC 33.1 % (32.0-36.0); MONO % 9.8 % (0.0-8.0); NEUT % 66.9 % (16.0-70.0); PLATELET COUNT 219 TH/MM3 (150-450); RED CELL DISTRIBUTION WIDTH 13.7 % (11.6-17.2); WHITE BLOOD COUNT 3.9 TH/MM3 (4.0-11.0)
[2017-03-09 07:44] LABS: BICARBONATE 29.8 MEQ/L (21.0-32.0); POTASSIUM 4.1 MEQ/L (3.5-5.1)
[2017-03-09 08:00] VITALS: BP 113/68; PULSE 84; RESP 18; TEMP 96.4; O2SAT 99
[2017-03-09] MEDS ORDERED: VANCOMYCIN INJ 800 MG in SODIUM CHLOR 0.9% 250 ML INJ 250 ML IV ONE (08:00)
[2017-03-09] MEDS ORDERED: VANCOMYCIN INJ 1,000 MG in SODIUM CHLOR 0.9% 250 ML INJ 250 ML IV SCH (08:00)
[2017-03-09] MEDS: SODIUM CHLORIDE 0.9% FLUSH 10 ML FLUSH IV FLUSH SCH ×2 (09:00→21:00)
[2017-03-09] MEDS ORDERED: GABAPENTIN 400 MG CAP PO SCH (09:00)
[2017-03-09] MEDS: SODIUM CHLOR 0.9% 1000 ML INJ 1,000 ML IV SCH ×3 (09:09→21:41)
[2017-03-09] MEDS: INSULIN DETEMIR 100 UNITS/ML VIAL SQ SCH ×2 (09:10→21:45)
[2017-03-09] MEDS: GABAPENTIN 400 MG CAP PO SCH ×3 (09:10→18:00)
--- NOTE | 2017-03-09 09:12 | HHI.HP ---
[facility] Service Family Medicine Primary Care Physician Janice Barker MD Admission Diagnosis toe infection, failed outpatient treatment, syncope Diagnoses: (1) Cellulitis of great toe Diagnosis: Principal (2) Frequent falls Diagnosis: Principal (3) DM (diabetes mellitus), type 2, uncontrolled w/neurologic complication Diagnosis: Principal (4) Abnormal urinalysis Diagnosis: Principal (5) Nutrition, metabolism, and development symptoms Diagnosis: Principal International Travel<30 Days: No Contact w/Intl Traveler<30days: No Known Affected Area: No History of Present Illness Jaqueline Arechiga is a 51 year old female with extensive PMH including poorly- controlled DM secondary to noncompliance, h/o osteomyelitis s/p right 5th toe amputation, orthostatic hypotension, peripheral neuropathy, peripheral vascular disease, hepatitis C, right great toe infection for which she receives home health for wound care and PT, who presents to the ED with multiple complaints. She had chemo and radiation for cancer and subsequently developed severe orthostatic hypotension. She states she usually uses a wheelchair to get around however reports that one wheel of her wheelchair is not working so she has been using her walker recently. She states she was at a convenience store the afternoon before admission using her walker and fell inside the store. She is unable to provide many details regarding the fall. She states she does not think she hit her head. She denies any dizziness prior to the fall or dizziness currently. Denies history of seizures. Denies any pain currently. Denies headache, visual symptoms, no chest pain. She does state she has infrequently had falls at home in the past. She was seen by Dr. Salomon Paz at [facility] on 02/08/2017 due to frequent falls and had complaints of dizziness when going from sitting to standing at that time c/w orthostatic hypotension. The patient was instructed to increase hydration and continue her sodium tablets and she was on midodrine, diabetic education provided to improve compliance with her medications, and her prescription of gabapentin was changed from 800 mg bid to 400 mg tid if possibly contributing to her symptoms. Patient also reports a right great toe infection that she states she believes has been worsening lately. Patient was seen by Dr. Moreno at [facility] on regarding her right great toe infection and was given prescriptions for Levaquin and Bactrim and was instructed to follow up with her podiatry appointment on 03/06/2017. She states she does not think her infection had improved at any time since beginning therapy. She denies noticing any discharge from the site. She denies pain at all and states she is not able to feel due to her neuropathy. Denies history of trauma to the area. Denies fevers or chills. A wound culture of her foot from 01/11/2017 grew MRSA sensitive to vancomycin. Patient was admitted here from 01/16-01/20 for this same issue and had a wound culture growing MRSA, pseudomonas, and aerococcus. Review of Systems Other Constitutional: COMPLAINS OF: Dizziness, DENIES: Fever, Chills, Change in appetite Eyes: DENIES: Blurred vision, Diplopia, Double Vision Respiratory: DENIES: Cough, Wheezing, Sputum production, Shortness of breath Cardiovascular: DENIES: Chest pain, Palpitations, Lower Extremity Edema Gastrointestinal: DENIES: Abdominal pain, Black stools, Constipation, Diarrhea , Nausea, Vomiting Neurologic: COMPLAINS OF: Abnormal gait, DENIES: Headache, Seizures Past Family Social History Past Medical History Insulin-dependent DM diagnosed in 2006 History of osteomyelitis (s/p right 5th toe amputation) 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 Umanzor) Peripheral neuropathy Hypertension (hypotensive after chemotherapy initiation) Hyperlipidemia AICD in place Peripheral vascular disease Asthma Hepatitis C Genital herpes and warts Osteoarthritis Cataracts History of pancreatitis History of recurrent UTIs Past Surgical History Cholecystectomy Appendectomy Tonsillectomy Right 5th digit amputation Pacemaker placement Left femoral stent Allergies: Coded Allergies: Compazine (Verified Allergy, Severe, 03/08/17) ANXIETY Ultram (Verified Allergy, Intermediate, Rash, 03/08/17) MRI PRECAUTION (Verified Adverse Reaction, Severe, PACEMAKER IS NOT A BIOTRONIK OR MEDTRONIC 06/15/16 KMD, 03/08/17) PACEMAKER IS NOT A BIOTRONIK OR MEDTRONIC CONDITIONAL PACEMAKER. CALLED BOTH COMPANIES TO CONFIRM. Percocet (Verified Adverse Reaction, Severe, Nausea/Vomiting, 03/08/17) *MDRO Multi-Drug Resistant Organism (Verified Adverse Reaction, Unknown, ESBL, MRSA, 03/08/17) E. coli ESBL (urine) - 2012, 2013, 2014, 04/2016, 02/03/2017 MRSA - 2003, 03/2015 (toe wound), 10/2015 (arm/back wound), (foot-10/12/16 & 01/11/17) Metformin (Verified Adverse Reaction, Unknown, DIARRHEA, 03/08/17) Morphine (Verified Adverse Reaction, Unknown, Dizziness, 03/08/17) states doesn't want-does not like the way it makes me feel Family History Mother: but unsure of medical history Father: , heart disease Sister: CAD Two healthy children (son and daughter) History of cancers in the family but unsure of who or what kind Social History Tobacco: quit in 2003, smoked about 1/2 PPD x 14 years prior to quitting Etoh: denies Illicit drugs: denies Unemployed, disabled has boyfriend Physical Exam Vital Signs Vital Signs Date Time Temp Pulse Resp B/P Pulse Ox O2 Delivery O2 Flow Rate FiO2 03/09/17 08:00 96.4 84 18 113/68 99 03/09/17 00:00 98.4 86 22 128/69 98 03/08/17 21:00 88 19 153/83 96 Room Air 03/08/17 19:00 91 22 136/93 96 Room Air 03/08/17 18:18 97 03/08/17 15:36 98.2 90 16 144/82 98 Physical Exam GENERAL: NAD, sitting up in bed NEURO: AOx3. Normal speech. patient liaison grossly intact. Motor grossly intact. No light touch perception up to mid-tibias bilaterally. Light touch intact in fingers and upper extremities. SKIN: Warm and dry. Right foot with julia. 2x2 cm area of ulceration of plantar surface of great toe with erythema and mild edema. Absent right fifth digit. DP and PT pulses are intact bilaterally. Able to move toes. Nontender to palpation. Right third finger with julia. 1x1 cm circular area of ulceration that is bleeding and has good granulation tissue and is nontender to palpation. above the area of good granulation, there is a discolored several centimeter area that is on her big toe and has some odor to it but does not smell like severe gangrene HEAD: Normocephalic. Atraumatic. EYES: PERRL. EOMI. No scleral icterus. No injection or drainage. ENT: No nasal drainage. Moist mucous membranes. No oral ulcers or lesions. NECK: Supple, trachea midline. No JVD or lymphadenopathy. No carotid bruits. CARDIOVASCULAR: Regular rate and rhythm without murmurs, rubs, or gallops. Peripheral pulses 2+. Capillary refill < 2 seconds. RESPIRATORY: Breath sounds clear to auscultation and equal bilaterally, without wheezes, rales, or rhonchi. No accessory muscle use. GASTROINTESTINAL: Abdomen soft, nontender, nondistended, normal BS. No organomegaly or masses. No rebound tenderness. No guarding. MUSCULOSKELETAL: No edema, cyanosis, or clubbing. 4/5 strength upper and lower extremities. BACK: Nontender without obvious deformity. Laboratory Laboratory Tests Test 03/08/17 03/08/17 03/09/17 18:10 19:39 06:50 White Blood Count 4.8 3.9 Red Blood Count 3.72 3.30 Hemoglobin 10.7 9.4 Hematocrit 31.9 28.5 Mean Corpuscular Volume 85.7 86.3 Mean Corpuscular Hemoglobin 28.8 28.5 Mean Corpuscular Hemoglobin 33.6 33.1 Concent Red Cell Distribution Width 13.9 13.7 Platelet Count 228 219 Mean Platelet Volume 8.1 8.0 Neutrophils (%) (Auto) 66.3 66.9 Lymphocytes (%) (Auto) 21.4 21.4 Monocytes (%) (Auto) 10.3 9.8 Eosinophils (%) (Auto) 1.3 1.0 Basophils (%) (Auto) 0.7 0.9 Neutrophils # (Auto) 3.2 2.6 Lymphocytes # (Auto) 1.0 0.8 Monocytes # (Auto) 0.5 0.4 Eosinophils # (Auto) 0.1 0.0 Basophils # (Auto) 0.0 0.0 CBC Comment DIFF FINAL DIFF FINAL Differential Comment Prothrombin Time 11.1 Prothromb Time International 1.0 Ratio Activated Partial 26.6 Thromboplast Time Sodium Level 138 141 Potassium Level 3.9 4.1 Chloride Level 98 105 Carbon Dioxide Level 30.9 29.8 Anion Gap 9 6 Blood Urea Nitrogen 41 35 Creatinine 0.99 0.81 Estimat Glomerular Filtration 59 75 Rate Random Glucose 177 138 Calcium Level 10.1 9.7 Magnesium Level 2.0 Total Bilirubin 0.4 Aspartate Amino Transf 13 (AST/SGOT) Alanine Aminotransferase 22 (ALT/SGPT) Alkaline Phosphatase 96 Total Creatine Kinase 21 Troponin I LESS THAN 0.02 Total Protein 8.0 Albumin 3.4 Lipase 162 Urine Color YELLOW Urine Turbidity HAZY Urine pH 7.0 Urine Specific [place] 1.022 Urine Protein 30 Urine Glucose (UA) NEG Urine Ketones 10 Urine Occult Blood NEG Urine Nitrite NEG Urine Bilirubin NEG Urine Urobilinogen LESS THAN 2.0 Urine Leukocyte Esterase MOD Urine RBC 6 Urine WBC 9 Urine Squamous Epithelial 16 Cells Urine Amorphous Sediment RARE Urine Bacteria MANY Urine Hyaline Casts 3 Urine Mucus FEW Microscopic Urinalysis Comment CULTURE INDICATED Date/Time Procedure Status Source Growth 03/09/17 02:30 Gram Stain - Final Resulted Wound Toe 03/09/17 02:30 Wound Culture Resulted Wound Toe Pending 03/08/17 19:39 Urine Culture Received Urine Random Urine Pending Result Diagram: 03/09/17 0650 03/09/17 0650 Assessment and Plan Assessment and Plan 51 year old female with extensive PMH including poorly-controlled DM secondary to noncompliance, h/o osteomyelitis s/p right 5th toe amputation, orthostatic hypotension, peripheral neuropathy, hepatitis C, and right great toe infection for which she receives home health for wound care and PT presented following a fall yesterday afternoon and with complaints of worsening right great toe infection. Problem List: (1) Cellulitis of great toe Status: Chronic Plan: Patient has had failed outpatient treatment of her right great toe infection with Levaquin and Bactrim Right third finger also with a small area of ulceration that is dry and nontender Foot x-ray does not show any acute bony process Hand x-ray is negative No systemic symptoms, the wound is relatively superficial and more likely cellulitis and not osteomyelitis at this time but will obtain opinion of podiatry with all her problems Will obtain ESR or MRI if suspicion for osteomyelitis rises S/p 1L NS bolus in ED and 1,050 mg of IV Vancomycin Broad-spectrum antibiotics to include MRSA and pseudomonas coverage - Continue vancomycin, pharmacy consult - Zosyn 4.5 gm IV q6h - Obtain wound culture - Patient denies any acute pain, does report chronic neuropathic pain - Continue gabapentin 400 mg po tid - Consult wound care, will use vaseline gauze to granulating area (2) Frequent falls Status: Chronic Plan: - Patient had been using a wheelchair prior to recently using a walker at the time of her fall - Etiology is likely multifactorial, patient has a h/o orthostatic hypotension and vestibular dysfunction, peripheral neuropathy, and deconditioning all could be contributing - RRR on exam; EKG is in sinus rhythm, rate of about 90 bpm, no ST changes - Troponin in ED less than 0.02 - No carotid bruits appreciated, defer carotid US at this time - Electrolytes are WNLs; does not appear dehydrated - No h/o seizures - OOB with assistance only - Consulted PT -midodrine helped in past. she can have autonomic dysfunction from DM and possibly from chemo which she finished up last year (3) DM (diabetes mellitus), type 2, uncontrolled w/neurologic complication Status: Chronic Plan: - Bedside glucoses ACHS - Levemir 5 units subq q12h - Low-dose Novolog ISS - Hold home [place] (4) Abnormal urinalysis Status: Acute Plan: Urine culture pending S/p 1gm IV Rocephin in ED Follow culture (5) Nutrition, metabolism, and development symptoms Status: Acute Plan: Fluids: NS at 100 cc/hr Diet: 1800 ADA BP on admission 144/82; patient also has a h/o hypotension and had been started on midodrine 5 mg po tid, will keep on midodrine and continue to monitor vitals q4h. she may be improving with her orthostatic hypotension as she is months from her last chemo Physician Certification 2 Midnight Certification Type: Admission for Inpatient Services Order for Inpatient Services The services are ordered in accordance with Medicare regulations or non- Medicare payer requirements, as applicable. In the case of services not specified as inpatient-only, they are appropriately provided as inpatient services in accordance with the 2-midnight benchmark. Estimated LOS (days): 3 3 days is the estimated time the patient will need to remain in the hospital, assuming treatment plan goals are met and no additional complications. Post-Hospital Plan: Not yet determined Problem Qualifiers (1) Cellulitis of great toe: Qualified Code: L03.031 - Cellulitis of great toe, right (2) DM (diabetes mellitus), type 2, uncontrolled w/neurologic complication: Qualified Code: E11.42 - Uncontrolled type 2 diabetes mellitus with diabetic polyneuropathy, with long-term current use of insulin Felicia Herrera MD March 09, 2017 09:12
[2017-03-09] MEDS: SODIUM CHLORIDE 1 GRAM TAB PO SCH (10:26)
[2017-03-09 12:00] VITALS: BP 115/73; PULSE 88; RESP 17; TEMP 96.8; O2SAT 100
--- NOTE | 2017-03-09 12:48 | PD.POD.CON ---
Patient Intake Chief Complaint Nonhealing ulcer right hallux Consult Requested by Dr. ambrocio Primary Care Physician Janice Barker MD Coded Allergies: Compazine (Verified Allergy, Severe, 03/08/17) ANXIETY Ultram (Verified Allergy, Intermediate, Rash, 03/08/17) MRI PRECAUTION (Verified Adverse Reaction, Severe, PACEMAKER IS NOT A BIOTRONIK OR MEDTRONIC 06/15/16 KMD, 03/08/17) PACEMAKER IS NOT A BIOTRONIK OR MEDTRONIC CONDITIONAL PACEMAKER. CALLED BOTH COMPANIES TO CONFIRM. Percocet (Verified Adverse Reaction, Severe, Nausea/Vomiting, 03/08/17) *MDRO Multi-Drug Resistant Organism (Verified Adverse Reaction, Unknown, ESBL, MRSA, 03/08/17) E. coli ESBL (urine) - 2012, 2013, 2014, 04/2016, 02/03/2017 MRSA - 2003, 03/2015 (toe wound), 10/2015 (arm/back wound), (foot-08/17/16 & 01/11/17) Metformin (Verified Adverse Reaction, Unknown, DIARRHEA, 03/08/17) Morphine (Verified Adverse Reaction, Unknown, Dizziness, 03/08/17) states doesn't want-does not like the way it makes me feel Preferred Language to Discuss: Ghanaian Barriers to Learning: None Teaching Method: Discussion Vital Signs Date Time Temp Pulse Resp B/P Pulse Ox O2 Delivery O2 Flow Rate FiO2 03/09/17 08:00 96.4 84 18 113/68 99 03/09/17 00:00 98.4 86 22 128/69 98 03/08/17 21:00 88 19 153/83 96 Room Air 03/08/17 19:00 91 22 136/93 96 Room Air 03/08/17 18:18 97 03/08/17 15:36 98.2 90 16 144/82 98 Pain scale used: 0-10 numeric scale Pain score: 0 Medications Current Medications Sodium Chloride 2 ml 2 ml UNSCH PRN IVF FLUSH AFTER USING IV ACCESS; Start 03/08 at 17:30; Stop 03/09/17 at 05:27; Status DC Sodium Chloride 1,000 ml @ 1,000 mls/hr Q1H ONCE IV Last administered on t 18:45; Start 03/08/17 at 17:26; Stop 03/08/17 at 18:25; Status DC Vancomycin HCl 1050 mg/Sodium Chloride 260.5 ml @ 250 mls/hr ONCE ONCE IV Last administered on 03/08/17 20:09; Start 03/08/17 at 19:45; Stop 03/08/17 at 20: 47; Status DC Ceftriaxone Sodium 1000 mg/ Sodium Chloride 50 ml @ 100 mls/hr ONCE ONCE IV Last administered on 03/08/17 21:20; Start 03/08/17 at 20:30; Stop 03/08/17 at 20: 59; Status DC Sodium Chloride (NS 1000 ml Inj) 1,000 ml @ 100 mls/hr Q10H IV Last administered on 03/09/17 09:09; Start 03/08/17 at 22:00 Sodium Chloride (NS Flush) 2 ml UNSCH PRN IV FLUSH FLUSH AFTER USING IV ACCESS ; Start 03/08/17 at 21:15 Sodium Chloride (NS Flush) 2 ml BID IV FLUSH ; Start 03/08/17 at 21:15 Acetaminophen (Tylenol) 650 mg Q4H PRN PO TEMP > 100.4; Start 03/08/17 at 21:15 Ondansetron HCl (Zofran Inj) 4 mg Q6H PRN IVP NAUSEA OR VOMITING; Start at 21:15 Enoxaparin Sodium (Lovenox Inj) 40 mg Q24H SQ Last administered on 03/08/17 22: 50; Start 03/08/17 at 21:30; Stop 03/09/17 at 01:09; Status DC Naloxone HCl (Narcan Inj) 0.4 mg UNSCH PRN IV SEE LABEL COMMENTS; Start at 21:15 Senna/Docusate Sodium (Tamiko-Colace) 1 tab BID PRN PO CONSTIPATION; Start at 21:15 Insulin Aspart (NovoLOG SUPPLEMENTAL SCALE) 1 ACHS SLIDING SCALE SQ Last administered on 03/09/17 12:13; Start 03/09/17 at 07:00 Insulin Detemir 5 units 5 units Q12HR SQ Last administered on 03/09/17 09:10; Start 03/08/17 at 21:15 Vancomycin HCl 1000 mg/Sodium Chloride 250 ml @ 250 mls/hr Q12H IV ; Start 03/09 at 08:00; Status UNV Pharmacy Profile Note 0 ml @ 0 mls/hr UNSCH OTHER ; Start 03/08/17 at 21:15 Piperacillin Sod/ Tazobactam Sod (Zosyn 4.5 Gm Premix) 100 ml @ 200 mls/hr Q6H IV Last administered on 03/09/17 10:26; Start 03/08/17 at 22:00 Albuterol Sulfate (Albuterol Neb) 2.5 mg Q2HR NEB PRN INH SHORTNESS OF BREATH; Start 03/08/17 at 21:15 Atorvastatin Calcium (Lipitor) 20 mg HS PO ; Start 03/09/17 at 21:00; Stop at 21:00; Status DC Gabapentin (Neurontin) 400 mg TID PO ; Start 03/09/17 at 09:00; Stop 03/09/17 at 09:00; Status DC Atorvastatin Calcium (Lipitor) 20 mg HS PO Last administered on 03/08/17 23:16 ; Start 03/08/17 at 23:09 Gabapentin 400 mg 400 mg TID PO Last administered on 03/09/17 09:10; Start 03/08 at 23:10 Vancomycin HCl/ Sodium Chloride (Vancomycin Inj/ NS 250 ml Inj) 258 ml @ 250 mls/hr ONCE ONCE IV Last administered on 03/09/17 09:09; Start 03/09/17 at 08: 00; Stop 03/09/17 at 09:01; Status DC Midodrine (Proamatine) 5 mg TID PO ; Start 03/09/17 at 13:00 Sodium Chloride 1 gm 1 gm DAILY PO Last administered on 03/09/17 10:26; Start 03/09/17 at 09:15 Vancomycin HCl/ Sodium Chloride (Vancomycin Inj/ NS 250 ml Inj) 262.5 ml @ 250 mls/hr Q12H IV ; Start 03/09/17 at 16:00 Miscellaneous Information SPECIFIC LAB TO BE DRAWN:VANCOMYCIN TROUGH DATE TO... ONCE ONCE .XX ; Start 03/11/17 at 03:45; Stop 03/11/17 at 03:46 Past, Family & Social History Past Medical History Endocrine: REPORTS HX OF: Diabetes mellitus Cardiovascular: REPORTS HX OF: Hypertension, Peripheral vascular dz Cancer/Hematology: REPORTS HX OF: Oral cancer Infectious disease: REPORTS HX OF: Hepatitis Neurologic: REPORTS HX OF: Peripheral neuropathy Past Surgical History HEENT: REPORTS HX OF: Dental surgery Gastrointestinal: DENIES HX OF: Colectomy, total Gynecologic: DENIES HX OF: Hysterectomy Musculoskeletal: REPORTS HX OF: Other musculoskeletal srg (fifth ray amputation right foot) Breast: REPORTS HX OF: Mastectomy, bilateral, Mastectomy, left, Mastectomy, right Family Medical History Patient History: Hypertension G8 FATHER Substance Use Substance use: Denies use Review of Systems Musculoskeletal: COMPLAINS OF: Deformaties Neurological: COMPLAINS OF: Numbness/tingling, Changes in sensation Exam-Podiatry Constitutional General appearance: comfortable Nutritional status: normal Orientation: alert and oriented x3 Dermatological Exam Skin Temp - Right: Within Normal Limits Skin Texture - Right: Within Normal Limits Skin Elasticity - Right: Within Normal Limits Skin Tugor - Right: Within Normal Limits Hair Growth - Right: Within Normal Limits Pigmentation - Right: Within Normal Limits Skin Temp - Left: Within Normal Limits Skin Texture - Left: Within Normal Limits Skin Elasticity - Left: Within Normal Limits Skin Tugor - Left: Within Normal Limits Hair Growth - Left: Within Normal Limits Pigmentation - Left: Within Normal Limits Ulcers: Location/Measurements Ulceration plantar aspect of the right hallux Vascular/Lymphatic Exam R Dorsails Pedis: Absent L Dorsails Pedis: Absent R Posterior Tibial: Absent L Posterior Tibial: Absent Neurologic Exam Present on right: Tingling, Paraesthesia Present on left: Tingling, Paraesthesia Musculoskeletal Exam Details Digital amputation Muscle Strength Dorsiflexion (Right): Normal Plantarflexion (Right): Normal Inversion (Right): Normal Eversion (Right): Normal Digital (Right): Normal Dorsiflexion (Left): Normal Plantarflexion (Left): Normal Inversion (Left): Normal Eversion (Left): Normal Digital (Left): Normal Foot Range of Motion Dorsiflexion (Right): Normal Plantarflexion (Right): Normal Inversion (Right): Normal Eversion (Right): Normal Digital (Right): Normal Dorsiflexion (Left): Normal Plantarflexion (Left): Normal Inversion (Left): Normal Eversion (Left): Normal Digital (Left): Normal Wound Assessment Wound Information - Wound One Wound Location: plantar aspect of right hallux Wound Type: Diabetic Ulcer Classification: FT- full thickness Exudate: Moderate Exudate Type: Serosanguineous Debridement: No Fibrin Amount: Mild Granulation Tissue Color: Rena Lara Granulation Tissue Texture: Spongy Exposed: No exposed bone, muscle, tendon Eschar: Yes Odor: Yes Periwound Appearance: FINDINGS: Normal Dressings: Maxorb Extra AG Lab and Radiology Results Laboratory Laboratory Tests Test 03/08/17 03/09/17 18:10 06:50 White Blood Count 4.8 TH/MM3 3.9 TH/MM3 Red Blood Count 3.72 MIL/MM3 3.30 MIL/MM3 Hemoglobin 10.7 GM/DL 9.4 GM/DL Hematocrit 31.9 % 28.5 % Mean Corpuscular Volume 85.7 FL 86.3 FL Mean Corpuscular Hemoglobin 28.8 PG 28.5 PG Mean Corpuscular Hemoglobin 33.6 % 33.1 % Concent Red Cell Distribution Width 13.9 % 13.7 % Platelet Count 228 TH/MM3 219 TH/MM3 Mean Platelet Volume 8.1 FL 8.0 FL Neutrophils (%) (Auto) 66.3 % 66.9 % Lymphocytes (%) (Auto) 21.4 % 21.4 % Monocytes (%) (Auto) 10.3 % 9.8 % Eosinophils (%) (Auto) 1.3 % 1.0 % Basophils (%) (Auto) 0.7 % 0.9 % Neutrophils # (Auto) 3.2 TH/MM3 2.6 TH/MM3 Lymphocytes # (Auto) 1.0 TH/MM3 0.8 TH/MM3 Monocytes # (Auto) 0.5 TH/MM3 0.4 TH/MM3 Eosinophils # (Auto) 0.1 TH/MM3 0.0 TH/MM3 Basophils # (Auto) 0.0 TH/MM3 0.0 TH/MM3 CBC Comment DIFF FINAL DIFF FINAL Differential Comment Laboratory Tests Test 03/08/17 03/09/17 18:10 06:50 Sodium Level 138 MEQ/L 141 MEQ/L Potassium Level 3.9 MEQ/L 4.1 MEQ/L Chloride Level 98 MEQ/L 105 MEQ/L Carbon Dioxide Level 30.9 MEQ/L 29.8 MEQ/L Anion Gap 9 MEQ/L 6 MEQ/L Blood Urea Nitrogen 41 MG/DL 35 MG/DL Creatinine 0.99 MG/DL 0.81 MG/DL Estimat Glomerular Filtration 59 ML/MIN 75 ML/MIN Rate Random Glucose 177 MG/DL 138 MG/DL Calcium Level 10.1 MG/DL 9.7 MG/DL Magnesium Level 2.0 MG/DL Total Bilirubin 0.4 MG/DL Aspartate Amino Transf 13 U/L (AST/SGOT) Alanine Aminotransferase 22 U/L (ALT/SGPT) Alkaline Phosphatase 96 U/L Total Creatine Kinase 21 U/L Troponin I LESS THAN 0.02 NG/ML Total Protein 8.0 GM/DL Albumin 3.4 GM/DL Lipase 162 U/L Microbiology Date/Time Procedure Status Source Growth 03/08/17 19:39 Urine Culture - Preliminary Resulted Urine Random Urine Gram Negative [place] 03/09/17 02:30 Gram Stain - Final Resulted Wound Toe 03/09/17 02:30 Wound Culture Resulted Wound Toe Pending Radiology Last Impressions Head CT 03/08/17 1726 Signed Impressions: Service Date/Time: Wednesday, March 08, 2017 17:54 - CONCLUSION: Right-sided mastoiditis. No acute intracranial findings Rc Cruz MD Chest X-Ray 03/08/17 1726 Signed Impressions: Service Date/Time: Wednesday, March 08, 2017 17:39 - CONCLUSION: No acute disease. Lloyd Joyce Jr., MD Hand X-Ray 03/08/17 0000 Signed Impressions: Service Date/Time: Wednesday, March 08, 2017 17:48 - CONCLUSION: No acute abnormality. Lloyd Joyce Jr., MD Foot X-Ray 03/08/17 0000 Signed Impressions: Service Date/Time: Wednesday, March 08, 2017 17:42 - CONCLUSION: No definite acute bony process Rc Cruz MD Assessment/Plan Problem List: (1) Diabetic foot infection Status: Acute (2) Chronic foot ulcer Status: Chronic (3) DM (diabetes mellitus), type 2, uncontrolled w/neurologic complication Status: Chronic Additional Plans & Procedures PLAN: Ordered arterial segmental Dopplers. Maxorb extra AG dressings. Postop shoe for offloading. We'll follow the patient during the course of this admission. She will follow up in the wound center with me upon discharge. Problem Qualifiers (1) Chronic foot ulcer: Qualified Code: L97.512 - Chronic foot ulcer, right, with fat layer exposed (2) DM (diabetes mellitus), type 2, uncontrolled w/neurologic complication: Qualified Code: E11.42 - Uncontrolled type 2 diabetes mellitus with diabetic polyneuropathy, with long-term current use of insulin Luis Gutierrez DPM March 09, 2017 12:48
[2017-03-09] MEDS: MIDODRINE 5 MG TAB PO SCH ×2 (14:31→18:00)
[2017-03-09 16:00] VITALS: BP 124/62; PULSE 81; RESP 16; TEMP 97.5; O2SAT 98
--- NOTE | 2017-03-09 16:22 | RADRPT ---
EXAM DATE/TIME: 03/09/2017 00:00 [place] COMPARISON: No previous studies available for comparison. INDICATIONS : Right Toe Infection, Failed Outpatient Treatment TECHNIQUE: Five-station segmental examination of the lower extremities was performed. Pulsed-cuff waveform tracings and pressures were recorded. Ankle-brachial indices and toe-brachial indices were calculated. PRESSURES (mmHg): Brachial (arm): Right 135 Lower Thigh: Right CNO>200 Left CNO>200 Calf: Right CNO>200 Left CNO>200 Ankle: Right 176 Left 184 Toe: Right 88 Left 72 ALBERTO: Right 1.30 Left 1.36 TBI: Right 0.65 Left 0.53 PULSED CUFF WAVEFORMS: Biphasic waveforms bilaterally. CONCLUSION: ABIs within the normal range bilaterally. 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 Lloyd Joyce Jr., MD on March 09, 2017 at 16:18 Board Certified Radiologist. This report was verified electronically.
[2017-03-09] MEDS: VANCOMYCIN INJ 1,250 MG in SODIUM CHLOR 0.9% 250 ML INJ 250 ML IV SCH (18:00)
--- NOTE | 2017-03-09 18:04 | EKG ---
Date Performed: 03/08/2017 Time Performed: 19:31:44 PTAGE: 51 years EKG: Sinus rhythm NORMAL ECG Compared to prior tracing no significant change. PREVIOUS TRACING : 02/15/2017 22.05 DOCTOR: Blu Paz Interpretating Date/Time 03/09/2017 18:03:22
[2017-03-09 20:00] VITALS: BP 109/61; PULSE 73; RESP 18; TEMP 96.2; O2SAT 98
[2017-03-09] MEDS ORDERED: ATORVASTATIN 20 MG TAB PO SCH (21:00)
[2017-03-09] MEDS: ATORVASTATIN 20 MG TAB PO SCH (21:41)
[2017-03-10] VITALS: BP 113/61; PULSE 76; RESP 20; TEMP 98.3; O2SAT 99
[2017-03-10] MEDS: VANCOMYCIN INJ 1,250 MG in SODIUM CHLOR 0.9% 250 ML INJ 250 ML IV SCH ×2 (04:32→17:43)
[2017-03-10] MEDS: PIPERACIL-TAZO 4.5 GM PREMIX 100 ML IV SCH ×4 (04:32→21:36)
[2017-03-10] MEDS: INSULIN ASPART SUPPLEMENTAL SCALE SQ SCH ×4 (05:41→21:00)
[2017-03-10 08:00] VITALS: BP 141/66; PULSE 79; RESP 15; TEMP 98.4; O2SAT 98
[2017-03-10] MEDS: SODIUM CHLORIDE 0.9% FLUSH 10 ML FLUSH IV FLUSH SCH ×2 (08:20→21:35)
[2017-03-10] MEDS: MIDODRINE 5 MG TAB PO SCH ×3 (08:23→17:43)
[2017-03-10] MEDS: SODIUM CHLORIDE 1 GRAM TAB PO SCH (08:24)
[2017-03-10] MEDS: INSULIN DETEMIR 100 UNITS/ML VIAL SQ SCH ×2 (08:24→21:34)
[2017-03-10] MEDS: GABAPENTIN 400 MG CAP PO SCH ×3 (08:24→17:44)
[2017-03-10] MEDS ORDERED: WHEEMIS3 (10:18)
[2017-03-10 12:00] VITALS: BP 158/77; PULSE 80; RESP 12; TEMP 98; O2SAT 100
--- NOTE | 2017-03-10 12:23 | HHI.FPPN ---
Subjective Remarks Pt seen and examined this morning. AFVSS. No acute events overnight. Denies any pain, fever, chills. Tolerating PO without nausea or vomiting. Ambulating with walker and right foot in post-op boot. (Janice Barker MD) Objective Vitals Vital Signs Date Time Temp Pulse Resp B/P Pulse Ox O2 Delivery O2 Flow Rate FiO2 03/10/17 08:00 98.4 79 15 141/66 98 03/10/17 00:00 98.3 76 20 113/61 99 03/09/17 20:00 96.2 73 18 109/61 98 03/09/17 18:16 21 03/09/17 16:00 97.5 81 16 124/62 98 I/O 03/09/17 03/09/17 03/09/17 03/10/17 03/10/17 03/10/17 07:00 15:00 23:00 07:00 15:00 23:00 Intake Total 983 ml 1380 ml 740 ml 1118 ml Output Total 0 ml 700 ml 700 ml Balance 983 ml 1380 ml 40 ml 418 ml Intake Oral 240 ml 360 ml 240 ml 480 ml IV Total 743 ml 1020 ml 500 ml 638 ml Output Urine Total 0 ml 700 ml 700 ml # Voids 3 1 1 # Bowel Movements 2 1 0 0 (Janice Barker MD) Result Diagram: 03/09/17 0650 03/09/[address] 03/08/176 Signed Impressions: Service Date/Time: Wednesday, March 08, 2017 17:54 - CONCLUSION: Right-sided mastoiditis. No acute intracranial findings Rc Cruz MD Chest X-Ray 03/08/171725 Signed Impressions: Service Date/Time: Wednesday, March 08, 2017 17:39 - CONCLUSION: No acute disease. Lloyd Joyce Jr., MD Hand X-Ray 03/08/17 0000 Signed Impressions: Service Date/Time: Wednesday, March 08, 2017 17:48 - CONCLUSION: No acute abnormality. Lloyd Joyce Jr., MD Foot X-Ray 03/08/17 0000 Signed Impressions: Service Date/Time: Wednesday, March 08, 2017 17:42 - CONCLUSION: No definite acute bony process Rc Cruz MD Objective Remarks GENERAL: female sitting up in bed eating breakfast in NAD. SKIN: Warm and dry. HEENT: AT/NC. Pupils equal and round. MMM. HEART: RRR no m/r/g. LUNGS: CTAB without wheezes or crackles. ABDOMEN: Soft, NT, ND. EXTREMITIES: Large ulceration involving essentially the entire plantar aspect of the right hallux with moderate serosanguineous exudate and underlying pink granulation tissue. No exposed muscle or bone. Absent right fifth digit. Blister on PIP of right third digit with surrounding erythema. NEURO: Awake and alert. PSYCH: Appropriate mood and affect. Speaks in a child-like voice. (Janice Barker MD) A/P Assessment and Plan 51 year old female with extensive PMH including poorly-controlled DM secondary to noncompliance, h/o osteomyelitis s/p right 5th toe amputation, orthostatic hypotension, peripheral neuropathy, hepatitis C, and right great toe diabetic ulcer admitted on 03/08 for diabetic foot infection. She is being treated with IV vancomycin and Zosyn. Discharge Planning Anticipate D/C in 1-2 days. (Janice Barker MD) Attending Attestation Patient seen and examined. Case reviewed and discussed with the resident team. Agree with plan of care as discussed with me and documented in the resident note. (Felicia Herrera MD) Problem List: (1) Cellulitis of great toe Status: Chronic Plan: Patient admitted after failing outpatient treatment with Levaquin and Bactrim for right great toe infection. Does not meet sepsis criteria. Foot XR negative for osteomyelitis. - Podiatry and wound care consulted; recommend Maxorb dressing - No blood cultures drawn at admission and patient already on two days of antibiotics; obtain if febrile - Wound culture pending - PT to eval and treat (2) UTI (urinary tract infection) Status: Acute Plan: Urine growing ESBL + E. coli resistant to multiple antibiotics. Sensitive to Zosyn which she is already getting for her wound. Plan on discharging on Macrobid. (3) Frequent falls Status: Chronic Plan: Patient with history of frequent falls with multifactorial cause including orthostatic hypotension, severe diabetic neuropathy, and debility. Has walker and wheelchair at home but wheel has broken. Case management consulted for DME needs. - PT consulted to eval and treat - Continue home midodrine for orthostatic hypotension (4) DM (diabetes mellitus), type 2, uncontrolled w/neurologic complication Status: Chronic Plan: Patient refuses insulin as an outpatient and compliance with Januvia and Bydureon is questionable. While in the hospital, will have her on Levemir 5 units BID and low-dose SSI per protocol. (5) Nutrition, metabolism, and development symptoms Status: Acute Plan: - Fluids: Tolerating PO - Electrolytes: WNL - Nutrition: Diabetic diet - DVT prophylaxis: Lovenox 40 mg SQ Q24H Chronic medical problems not acute being addressed: - HLD: Continue home statin - Neuropathy: Continue home gabapentin sdw Dr. Herrera and Dr. Milton Paz (Janice Barker MD) Problem Qualifiers (1) Cellulitis of great toe: Qualified Code: L03.031 - Cellulitis of great toe, right (2) UTI (urinary tract infection): Qualified Code: N30.00 - Acute cystitis without hematuria (3) DM (diabetes mellitus), type 2, uncontrolled w/neurologic complication: Qualified Code: E11.42 - Uncontrolled type 2 diabetes mellitus with diabetic polyneuropathy, with long-term current use of insulin Janice Barker MD March 10, 2017 12:23 Felicia Herrera MD March 11, 2017 10:46
[2017-03-10] MEDS: ENOXAPARIN SODIUM 40 MG/0.4 ML SYRINGE SQ SCH (13:46)
--- NOTE | 2017-03-10 13:52 | PD.POD ---
Subjective Podiatric Problems Ulceration plantar aspect of the right hallux Pain scale used: 0-10 numeric scale Pain score: 0 Remarks Patient is a 51-year-old female with a chronic ulceration of the plantar aspect of the right hallux. Yesterday ordered Maxorb extra AG dressings to her toe. These dressings have not been done yet. Spoke with nursing she is going to apply the Maxorb extra AG to the right hallux toe wound. Past Med/Surg/Social History Past Medical History Endocrine: REPORTS HX OF: Diabetes mellitus Cardiovascular: REPORTS HX OF: Hypertension, Peripheral vascular dz Cancer/Hematology: REPORTS HX OF: Oral cancer Infectious disease: REPORTS HX OF: Hepatitis Neurologic: REPORTS HX OF: Peripheral neuropathy Past Surgical History HEENT: REPORTS HX OF: Dental surgery Gastrointestinal: DENIES HX OF: Colectomy, total Gynecologic: DENIES HX OF: Hysterectomy Musculoskeletal: REPORTS HX OF: Other musculoskeletal srg (fifth ray amputation right foot) Breast: REPORTS HX OF: Mastectomy, bilateral, Mastectomy, left, Mastectomy, right Social History Smoking Status: Unknown If Ever Smoked Review of Systems Notes No changes in her 14 point review of systems exam from yesterday Objective Vital Signs Vital Signs Date Time Temp Pulse Resp B/P Pulse Ox O2 Delivery O2 Flow Rate FiO2 03/10/17 12:00 98.0 80 12 158/77 100 03/10/17 08:00 98.4 79 15 141/66 98 03/10/17 00:00 98.3 76 20 113/61 99 03/09/17 20:00 96.2 73 18 109/61 98 03/09/17 18:16 21 03/09/17 16:00 97.5 81 16 124/62 98 Coded Allergies: Compazine (Verified Allergy, Severe, 03/08/17) ANXIETY Ultram (Verified Allergy, Intermediate, Rash, 03/08/17) MRI PRECAUTION (Verified Adverse Reaction, Severe, PACEMAKER IS NOT A BIOTRONIK OR MEDTRONIC 06/15/16 KMD, 03/08/17) PACEMAKER IS NOT A BIOTRONIK OR MEDTRONIC CONDITIONAL PACEMAKER. CALLED BOTH COMPANIES TO CONFIRM. Percocet (Verified Adverse Reaction, Severe, Nausea/Vomiting, 03/08/17) *MDRO Multi-Drug Resistant Organism (Verified Adverse Reaction, Unknown, ESBL, MRSA, 03/08/17) E. coli ESBL (urine) - 2012, 2013, 2014, 04/2016, 02/03/2017 MRSA - 2004, 03/2015 (toe wound), 10/2015 (arm/back wound), (foot-08/17/16 & 01/11/17) Metformin (Verified Adverse Reaction, Unknown, DIARRHEA, 03/08/17) Morphine (Verified Adverse Reaction, Unknown, Dizziness, 03/08/17) states doesn't want-does not like the way it makes me feel Medications and IVs Current Medications Sodium Chloride 2 ml 2 ml UNSCH PRN IVF FLUSH AFTER USING IV ACCESS; Start 03/08 at 17:30; Stop 03/09/17 at 05:27; Status DC Sodium Chloride 1,000 ml @ 1,000 mls/hr Q1H ONCE IV Last administered on 18:45; Start 03/08/17 at 17:26; Stop 03/08/17 at 18:25; Status DC Vancomycin HCl 1050 mg/Sodium Chloride 260.5 ml @ 250 mls/hr ONCE ONCE IV Last administered on 03/08/17 20:09; Start 03/08/17 at 19:45; Stop 03/08/17 at 20: 47; Status DC Ceftriaxone Sodium 1000 mg/ Sodium Chloride 50 ml @ 100 mls/hr ONCE ONCE IV Last administered on 03/08/17 21:20; Start 03/08/17 at 20:30; Stop 03/08/17 at 20: 59; Status DC Sodium Chloride (NS 1000 ml Inj) 1,000 ml @ 100 mls/hr Q10H IV Last administered on 03/09/17 21:41; Start 03/08/17 at 22:00; Stop 03/10/17 at 12:21; Status DC Sodium Chloride (NS Flush) 2 ml UNSCH PRN IV FLUSH FLUSH AFTER USING IV ACCESS ; Start 03/08/17 at 21:15 Sodium Chloride (NS Flush) 2 ml BID IV FLUSH ; Start 03/08/17 at 21:15 Acetaminophen (Tylenol) 650 mg Q4H PRN PO TEMP > 100.4; Start 03/08/17 at 21:15 Ondansetron HCl (Zofran Inj) 4 mg Q6H PRN IVP NAUSEA OR VOMITING; Start at 21:15 Enoxaparin Sodium (Lovenox Inj) 40 mg Q24H SQ Last administered on 03/08/17 22: 50; Start 03/08/17 at 21:30; Stop 03/09/17 at 01:09; Status DC Naloxone HCl (Narcan Inj) 0.4 mg UNSCH PRN IV SEE LABEL COMMENTS; Start at 21:15 Senna/Docusate Sodium (Tamiko-Colace) 1 tab BID PRN PO CONSTIPATION; Start at 21:15 Insulin Aspart (NovoLOG SUPPLEMENTAL SCALE) 1 ACHS SLIDING SCALE SQ Last administered on 03/10/17 12:01; Start 03/09/17 at 07:00 Insulin Detemir 5 units 5 units Q12HR SQ Last administered on 03/10/17 08:24; Start 03/08/17 at 21:15 Vancomycin HCl 1000 mg/Sodium Chloride 250 ml @ 250 mls/hr Q12H IV ; Start 03/09 at 08:00; Status UNV Pharmacy Profile Note 0 ml @ 0 mls/hr UNSCH OTHER ; Start 03/08/17 at 21:15 Piperacillin Sod/ Tazobactam Sod (Zosyn 4.5 Gm Premix) 100 ml @ 200 mls/hr Q6H IV Last administered on 03/10/17 11:25; Start 03/08/17 at 22:00 Albuterol Sulfate (Albuterol Neb) 2.5 mg Q2HR NEB PRN INH SHORTNESS OF BREATH; Start 03/08/17 at 21:15 Atorvastatin Calcium (Lipitor) 20 mg HS PO ; Start 03/09/17 at 21:00; Stop at 21:00; Status DC Gabapentin (Neurontin) 400 mg TID PO ; Start 03/09/17 at 09:00; Stop 03/09/17 at 09:00; Status DC Atorvastatin Calcium (Lipitor) 20 mg HS PO Last administered on 03/09/17 21:41 ; Start 03/08/17 at 23:09 Gabapentin 400 mg 400 mg TID PO Last administered on 03/10/17 11:25; Start 03/08 at 23:10 Vancomycin HCl/ Sodium Chloride (Vancomycin Inj/ NS 250 ml Inj) 258 ml @ 250 mls/hr ONCE ONCE IV Last administered on 03/09/17 09:09; Start 03/09/17 at 08: 00; Stop 03/09/17 at 09:01; Status DC Midodrine (Proamatine) 5 mg TID PO Last administered on 03/10/17 13:46; Start 03/09/17 at 13:00 Sodium Chloride 1 gm 1 gm DAILY PO Last administered on 03/10/17 08:24; Start 03/09/17 at 09:15 Vancomycin HCl/ Sodium Chloride (Vancomycin Inj/ NS 250 ml Inj) 262.5 ml @ 250 mls/hr Q12H IV Last administered on 03/10/17 04:32; Start 03/09/17 at 16:00 Miscellaneous Information SPECIFIC LAB TO BE DRAWN:VANCOMYCIN TROUGH DATE TO... ONCE ONCE .XX ; Start 03/11/17 at 03:45; Stop 03/11/17 at 03:46 Enoxaparin Sodium (Lovenox Inj) 40 mg Q24H SQ Last administered on 03/10/17 13: 46; Start 03/10/17 at 13:00 Other Results Laboratory Tests Test 03/08/17 03/09/17 18:10 06:50 White Blood Count 4.8 TH/MM3 3.9 TH/MM3 Red Blood Count 3.72 MIL/MM3 3.30 MIL/MM3 Hemoglobin 10.7 GM/DL 9.4 GM/DL Hematocrit 31.9 % 28.5 % Mean Corpuscular Volume 85.7 FL 86.3 FL Mean Corpuscular Hemoglobin 28.8 PG 28.5 PG Mean Corpuscular Hemoglobin 33.6 % 33.1 % Concent Red Cell Distribution Width 13.9 % 13.7 % Platelet Count 228 TH/MM3 219 TH/MM3 Mean Platelet Volume 8.1 FL 8.0 FL Neutrophils (%) (Auto) 66.3 % 66.9 % Lymphocytes (%) (Auto) 21.4 % 21.4 % Monocytes (%) (Auto) 10.3 % 9.8 % Eosinophils (%) (Auto) 1.3 % 1.0 % Basophils (%) (Auto) 0.7 % 0.9 % Neutrophils # (Auto) 3.2 TH/MM3 2.6 TH/MM3 Lymphocytes # (Auto) 1.0 TH/MM3 0.8 TH/MM3 Monocytes # (Auto) 0.5 TH/MM3 0.4 TH/MM3 Eosinophils # (Auto) 0.1 TH/MM3 0.0 TH/MM3 Basophils # (Auto) 0.0 TH/MM3 0.0 TH/MM3 CBC Comment DIFF FINAL DIFF FINAL Differential Comment Laboratory Tests Test 03/08/17 03/09/17 18:10 06:50 Sodium Level 138 MEQ/L 141 MEQ/L Potassium Level 3.9 MEQ/L 4.1 MEQ/L Chloride Level 98 MEQ/L 105 MEQ/L Carbon Dioxide Level 30.9 MEQ/L 29.8 MEQ/L Anion Gap 9 MEQ/L 6 MEQ/L Blood Urea Nitrogen 41 MG/DL 35 MG/DL Creatinine 0.99 MG/DL 0.81 MG/DL Estimat Glomerular Filtration 59 ML/MIN 75 ML/MIN Rate Random Glucose 177 MG/DL 138 MG/DL Calcium Level 10.1 MG/DL 9.7 MG/DL Magnesium Level 2.0 MG/DL Total Bilirubin 0.4 MG/DL Aspartate Amino Transf 13 U/L (AST/SGOT) Alanine Aminotransferase 22 U/L (ALT/SGPT) Alkaline Phosphatase 96 U/L Total Creatine Kinase 21 U/L Troponin I LESS THAN 0.02 NG/ML Total Protein 8.0 GM/DL Albumin 3.4 GM/DL Lipase 162 U/L Microbiology Date/Time Procedure Status Source Growth 03/08/17 19:39 Urine Culture - Final Complete Urine Random Urine Escherichia Coli Esbl Positive 03/09/17 02:30 Gram Stain - Final Resulted Wound Toe 03/09/17 02:30 Wound Culture - Preliminary Resulted S. Aureus Mrsa Group A Beta Strep Objective Remarks Last Impressions Head CT 03/08/176 Signed Impressions: Service Date/Time: Wednesday, March 08, 2017 17:54 - CONCLUSION: Right-sided mastoiditis. No acute intracranial findings Rc Cruz MD Chest X-Ray 03/08/176 Signed Impressions: Service Date/Time: Wednesday, March 08, 2017 17:39 - CONCLUSION: No acute disease. Llody Joyce Jr., MD Hand X-Ray 03/08/17 0000 Signed Impressions: Service Date/Time: Wednesday, March 08, 2017 17:48 - CONCLUSION: No acute abnormality. Lloyd Joyce Jr., MD Foot X-Ray 03/08/17 0000 Signed Impressions: Service Date/Time: Wednesday, March 08, 2017 17:42 - CONCLUSION: No definite acute bony process Rc Cruz MD Arterial Dopplers show decreased toe pressures but normal ABIs Exam-Podiatry Constitutional General appearance: comfortable Nutritional status: normal Orientation: alert and oriented x3 Dermatological Exam Skin Temp - Right: Within Normal Limits Skin Texture - Right: Within Normal Limits Skin Elasticity - Right: Within Normal Limits Skin Tugor - Right: Within Normal Limits Hair Growth - Right: Within Normal Limits Pigmentation - Right: Within Normal Limits Skin Temp - Left: Within Normal Limits Skin Texture - Left: Within Normal Limits Skin Elasticity - Left: Within Normal Limits Skin Tugor - Left: Within Normal Limits Hair Growth - Left: Within Normal Limits Pigmentation - Left: Within Normal Limits Ulcers: Location/Measurements Full-thickness ulceration plantar aspect of the right hallux with localized erythema. No purulence seen. No ascending cellulitis seen. Vascular/Lymphatic Exam R Dorsails Pedis: Doppler L Dorsails Pedis: Doppler R Posterior Tibial: Doppler L Posterior Tibial: Doppler Neurologic Exam Present on right: Tingling, Paraesthesia Present on left: Tingling, Paraesthesia Muscle Strength Dorsiflexion (Right): Normal Plantarflexion (Right): Normal Inversion (Right): Normal Eversion (Right): Normal Digital (Right): Normal Dorsiflexion (Left): Normal Plantarflexion (Left): Normal Inversion (Left): Normal Eversion (Left): Normal Digital (Left): Normal Foot Range of Motion Dorsiflexion (Right): Normal Plantarflexion (Right): Normal Inversion (Right): Normal Eversion (Right): Normal Digital (Right): Normal Dorsiflexion (Left): Normal Plantarflexion (Left): Normal Inversion (Left): Normal Eversion (Left): Normal Digital (Left): Normal Assessment & Plan Diagnosis: (1) Cellulitis of great toe Status: Chronic (2) Diabetic foot infection Status: Acute A/P PLAN: Maxorb extra AG dressings to right toe wound. Patient can follow with me in the wound center after discharge. Patient has an inflamed knuckle of the hand. Will obtain hand consult. Problem Qualifiers (1) Cellulitis of great toe: Qualified Code: L03.031 - Cellulitis of great toe, right Luis Gutierrez DPM March 10, 2017 13:52
[2017-03-10 16:00] VITALS: BP 181/80; PULSE 81; RESP 16; TEMP 95.9; O2SAT 100
[2017-03-10 20:00] VITALS: BP 143/84; PULSE 80; RESP 20; TEMP 98; O2SAT 100
[2017-03-10 20:14] VITALS: O2SAT 100
[2017-03-10] MEDS: ATORVASTATIN 20 MG TAB PO SCH (21:35)
[2017-03-11] VITALS: BP 138/82; PULSE 78; RESP 20; TEMP 97.8; O2SAT 97
[2017-03-11] MEDS ORDERED: PHARMACY ORDERED LAB ONE (03:45)
[2017-03-11] MEDS: VANCOMYCIN INJ 1,250 MG in SODIUM CHLOR 0.9% 250 ML INJ 250 ML IV SCH ×2 (04:01→17:45)
[2017-03-11] MEDS: PIPERACIL-TAZO 4.5 GM PREMIX 100 ML IV SCH ×3 (04:01→16:54)
[2017-03-11 04:31] LABS: AUTOMATED NEUTROPHIL # 2.1 TH/MM3 (1.8-7.7); BASOPHIL % 0.8 % (0.0-2.0); EOSINOPHIL # 0.1 TH/MM3 (0-0.4); HEMATOCRIT 29.2 % (35.0-46.0); HEMO FLAGS DIFF FINAL; LYMPHOCYTE # 0.9 TH/MM3 (1.0-4.8); MEAN CELL VOLUME 84.3 FL (80.0-100.0); MEAN CORPUSCULAR HEMOGLOBIN 29.5 PG (27.0-34.0); MONO % 10.4 % (0.0-8.0); NEUT % 59.8 % (16.0-70.0); PLATELET COUNT 278 TH/MM3 (150-450); RED BLOOD COUNT 3.46 MIL/MM3 (4.00-5.30); RED CELL DISTRIBUTION WIDTH 13.8 % (11.6-17.2); WHITE BLOOD COUNT 3.4 TH/MM3 (4.0-11.0)
[2017-03-11 04:50] LABS: BICARBONATE 31.9 MEQ/L (21.0-32.0); POTASSIUM 4.1 MEQ/L (3.5-5.1); VANCOMYCIN TROUGH 22.8 MCG/ML (5.0-10.0)
[2017-03-11] MEDS: INSULIN ASPART SUPPLEMENTAL SCALE SQ SCH ×4 (04:53→20:39)
[2017-03-11 08:00] VITALS: BP 143/78; PULSE 87; RESP 12; TEMP 98.1; O2SAT 99
[2017-03-11] MEDS: SODIUM CHLORIDE 1 GRAM TAB PO SCH (08:39)
[2017-03-11] MEDS: GABAPENTIN 400 MG CAP PO SCH ×3 (08:40→17:45)
[2017-03-11] MEDS: MIDODRINE 5 MG TAB PO SCH ×3 (08:40→17:46)
[2017-03-11] MEDS: INSULIN DETEMIR 100 UNITS/ML VIAL SQ SCH ×2 (08:41→20:38)
[2017-03-11] MEDS: SODIUM CHLORIDE 0.9% FLUSH 10 ML FLUSH IV FLUSH SCH ×2 (08:42→20:38)
--- NOTE | 2017-03-11 08:52 | HHI.FPPN ---
Subjective Remarks Ms Arechiga is doing well today. She requests a wheelchair when she leaves the hospital because of her many falls. She is eating well and has no complaints about her feet today. Objective Vitals Vital Signs Date Time Temp Pulse Resp B/P Pulse Ox O2 Delivery O2 Flow Rate FiO2 03/11/17 00:00 97.8 78 20 138/82 97 03/10/17 20:14 100 03/10/17 20:00 98.0 80 20 143/84 100 03/10/17 16:00 95.9 81 16 181/80 100 03/10/17 12:00 98.0 80 12 158/77 100 I/O 03/10/17 03/10/17 03/10/17 03/11/17 03/11/17 03/11/17 07:00 15:00 23:00 07:00 15:00 23:00 Intake Total 1118 ml 960 ml 480 ml 240 ml Output Total 700 ml 650 ml 600 ml Balance 418 ml 960 ml -170 ml -360 ml Intake Oral 480 ml 960 ml 480 ml 240 ml IV Total 638 ml Output Urine Total 700 ml 650 ml 600 ml # Voids 1 # Bowel Movements 0 1 0 0 Result Diagram: 03/11/17 0400 03/11/17 0400 Objective Remarks GENERAL: female sitting up in bed smiling in NAD. SKIN: Warm and dry. HEENT: AT/NC. Pupils equal and round. MMM. HEART: RRR no m/r/g. LUNGS: CTAB without wheezes or crackles. ABDOMEN: Soft, NT, ND. EXTREMITIES: Large ulceration involving essentially the entire plantar aspect of the right hallux with moderate serosanguineous exudate and underlying pink granulation tissue. No exposed muscle or bone. Absent right fifth digit. Blister on PIP of right third digit with surrounding erythema. (Today her foot was bandaged without any drainage and we did not remove it.) Her finger has a small open wound about 1 cm in diameter without pus, surrounding erythema or exudate. NEURO: Awake and alert. PSYCH: Appropriate mood and affect. Speaks in a child-like voice. Urinary Catheter: No Vascular Central Line Catheter: Yes Line: Central Venous Catheter Side: Right Location: Subclavian Reason for Continuation port for chemo A/P Assessment and Plan 51 year old female with extensive PMH including poorly-controlled DM secondary to noncompliance, h/o osteomyelitis s/p right 5th toe amputation, orthostatic hypotension, peripheral neuropathy, hepatitis C, and right great toe diabetic ulcer admitted on 03/08 for diabetic foot infection. She is being treated with IV vancomycin and Zosyn. Discharge Planning Anticipate D/C in 1-2 days. Problem List: (1) Cellulitis of great toe Status: Chronic Plan: Patient admitted after failing outpatient treatment with Levaquin and Bactrim for right great toe infection. Does not meet sepsis criteria. Foot XR negative for osteomyelitis. - Podiatry and wound care consulted; recommend Maxorb dressing - No blood cultures drawn at admission and patient already on two days of antibiotics; obtain if febrile - Wound culture shows MRSA, group A beta strep - PT to eval and treat, agree with wheelchair at D/C (2) UTI (urinary tract infection) Status: Acute Plan: Urine growing ESBL + E. coli resistant to multiple antibiotics. Sensitive to Zosyn which she is already getting for her wound. Plan on discharging on Macrobid. consulted ID with her multiple and various bacteria, appreciate their help in deciding best abx and length of treatment (3) Frequent falls Status: Chronic Plan: Patient with history of frequent falls with multifactorial cause including orthostatic hypotension, severe diabetic neuropathy, and debility. Has walker and wheelchair at home but wheel has broken. Case management consulted for DME needs. - PT consulted to eval and treat - Continue home midodrine for orthostatic hypotension (4) DM (diabetes mellitus), type 2, uncontrolled w/neurologic complication Status: Chronic Plan: Patient refuses insulin as an outpatient and compliance with Januvia and Bydureon is questionable. While in the hospital, will have her on Levemir 5 units BID and low-dose SSI per protocol. (5) Nutrition, metabolism, and development symptoms Status: Acute Plan: - Fluids: Tolerating PO - Electrolytes: WNL - Nutrition: Diabetic diet - DVT prophylaxis: Lovenox 40 mg SQ Q24H Chronic medical problems not acute being addressed: - HLD: Continue home statin - Neuropathy: Continue home gabapentin (6) Hand abrasion Status: Acute Plan: seeing hand surgeon Problem Qualifiers (1) Cellulitis of great toe: Qualified Code: L03.031 - Cellulitis of great toe, right (2) UTI (urinary tract infection): Qualified Code: N30.00 - Acute cystitis without hematuria (3) DM (diabetes mellitus), type 2, uncontrolled w/neurologic complication: Qualified Code: E11.42 - Uncontrolled type 2 diabetes mellitus with diabetic polyneuropathy, with long-term current use of insulin (4) Hand abrasion: Qualified Code: S60.511A - Hand abrasion, right, initial encounter Felicia Herrera MD March 11, 2017 08:52
[2017-03-11 12:00] VITALS: BP 167/97; PULSE 86; RESP 13; TEMP 97.6; O2SAT 99
[2017-03-11] MEDS: ENOXAPARIN SODIUM 40 MG/0.4 ML SYRINGE SQ SCH (13:23)
[2017-03-11 13:33] LABS: HEMOGLOBIN A1a 1.2 %; HEMOGLOBIN A1b 0.9 %; HEMOGLOBIN Ao 81.5 %; HEMOGLOBIN F 1.1 %; HEMOGLOBIN LA1C 2.3 %
[2017-03-11 16:00] VITALS: BP 126/77; PULSE 90; RESP 16; TEMP 97.8; O2SAT 100
--- NOTE | 2017-03-11 17:33 | PD.ID.CON ---
History of Present Illness Service ID Consult Requested By Dr. Herrera Reason for Consult Evaluation and management of great toe ulcer MRSA and strep infection Primary Care Physician Janice Barker MD Diagnoses: History of Present Illness Ms. Arechiga is a 51-year-old female with past medical history significant for poorly controlled diabetes secondary to noncompliance, history of osteomyelitis status post right fifth toe amputation, history of orthostatic hypertension, peripheral neuropathy, peripheral vascular disease, hepatitis C. Patient reports that she has a right great toe infection. Upon questioning her she reports that while she was sleeping she may have injured this arrhythmia with a teacher in the home and aren't that area she continued to receive home health for wound care and PT. She now presents to the emergency department with multiple complaints. One of her major complaints was that her wheelchair wheel is broken. She also reports that she felt dizzy and fell inside a store. Details of the fall could not be elicited. Denies any history of trauma that incident. Denies any seizure activity or urine or bowel incontinence. He reports a history of frequent falls at home in the past. Patient also reports that her right great toe infection has been getting worse lately. She was seen at the [facility] and was prescribed Levaquin and Bactrim and was instructed to follow-up with podiatry. Sure about patient' s compliance with these oral medications. A wound culture of her foot from 2016 grew MRSA sensitive to vancomycin. Patient was admitted here from 01/16- for this same issue and had a wound culture growing MRSA, pseudomonas, and aerococcus. Infectious disease is consulted for evaluation and management of great toe also MRSA and strep infection as well as possible right middle finger of the hand infection. Since the patient also has a urine culture that is positive for ESBL. Review of Systems ROS Limitations: Poor Historian Constitutional: DENIES: Diaphoretic episodes, Fatigue, Fever, Weight gain, Weight loss, Chills, Dizziness, Change in appetite, Night Sweats Endocrine: DENIES: Abnorml menstrual pattern, Heat/cold intolerance, Polydipsia , Polyuria, Polyphagia Ears, nose, mouth, throat: DENIES: Tinnitus, Hearing loss, Vertigo, Nasal discharge, Oral lesions, Throat pain, Hoarseness, Ear Pain, Running Nose, Epistaxis, Sinus Pain, Toothache, Odynophagia Respiratory: DENIES: Apneas, Cough, Snoring, Wheezing, Hemoptysis, Sputum production, Shortness of breath Cardiovascular: DENIES: Chest pain, Palpitations, Syncope, Dyspnea on Exertion , PND, Lower Extremity Edema, Orthopnea, Claudication Gastrointestinal: DENIES: Abdominal pain, Black stools, Bloody stools, Constipation, Diarrhea, Nausea, Vomiting, Difficulty Swallowing, Anorexia Genitourinary: DENIES: Abnormal vaginal bleeding, Dysmenorrhea, Dyspareunia, Sexual dysfunction, Urinary frequency, Urinary incontinence, Urgency, Hematuria , Dysuria, Nocturia, Vaginal discharge Musculoskeletal: COMPLAINS OF: Joint pain, DENIES: Muscle aches, Stiffness, Joint Swelling, Back pain, Neck pain Integumentary: DENIES: Abnormal pigmentation, Pruritus, Rash, Nail changes, Breast masses, Breast skin changes, Nipple discharge Hematologic/lymphatic: DENIES: Bruising, Lymphadenopathy Immunologic/allergic: DENIES: Eczema, Urticaria Neurologic: COMPLAINS OF: Abnormal gait, Poor Balance, DENIES: Headache, Localized weakness, Paresthesias, Seizures, Speech Problems, Tremor Psychiatric: DENIES: Anxiety, Confusion, Mood changes, Depression, Hallucinations, Agitation, Suicidal Ideation, Homicidal Ideation, Delusions Past Family Social History Allergies: Coded Allergies: Compazine (Verified Allergy, Severe, 03/08/17) ANXIETY Ultram (Verified Allergy, Intermediate, Rash, 03/08/17) MRI PRECAUTION (Verified Adverse Reaction, Severe, PACEMAKER IS NOT A BIOTRONIK OR MEDTRONIC 06/15/16 KMD, 03/08/17) PACEMAKER IS NOT A BIOTRONIK OR MEDTRONIC CONDITIONAL PACEMAKER. CALLED BOTH COMPANIES TO CONFIRM. Percocet (Verified Adverse Reaction, Severe, Nausea/Vomiting, 03/08/17) *MDRO Multi-Drug Resistant Organism (Verified Adverse Reaction, Unknown, ESBL, MRSA, 03/08/17) E. 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 Umanzor) Peripheral neuropathy Hypertension (hypotensive after chemotherapy initiation) Hyperlipidemia AICD in place Peripheral vascular disease Asthma Hepatitis C Genital herpes and warts Osteoarthritis Cataracts History of pancreatitis History of recurrent UTIs Past Surgical History Cholecystectomy Appendectomy Tonsillectomy Right 5th digit amputation Pacemaker placement Left femoral stent Reported Medications Reported Meds & Active Scripts Active Wheelchair (Device) 1 Mis Mis 1 Ea .ROUTE DIRECTED Ondansetron HCl 4 Mg Tab 1 Tab PO Q6HR PRN Midodrine 5 Mg Tab 5 Mg PO TID Sodium Chloride 1 Gm Tab 1 Gm PO DAILY Bydureon Inj (Exenatide) 2 Mg Vial 2 Mg SQ Q7D Atorvastatin (Atorvastatin Calcium) 20 Mg Tab 20 Mg PO HS Gabapentin 400 Mg Cap 400 Mg PO TID Januvia (Sitagliptin Phosphate) 100 Mg Tab 100 Mg PO DAILY Imodium A-D (Loperamide HCl) 2 Mg Cap 2 Mg PO Q6H PRN Reported Ventolin Hfa 18 GM Inh (Albuterol Sulfate) 90 Mcg/Act Aer 1-2 Puff INH Q6HR PRN Active Ordered Medications Current Medications Medications (Trade) Dose Ordered Sig/Mattie Route Start Time Stop Time Status Last Admin (NS Flush) 2 ml UNSCH PRN IV FLUSH 03/08/17 21:15 (NS Flush) 2 ml BID IV FLUSH 03/08/17 21:15 03/11/17 08:42 (Tylenol) 650 mg Q4H PRN PO 03/08/17 21:15 (Zofran Inj) 4 mg Q6H PRN IVP 03/08/17 21:15 (Narcan Inj) 0.4 mg UNSCH PRN IV 03/08/17 21:15 (Tamiko-Colace) 1 tab BID PRN PO 03/08/17 21:15 Insulin Detemir 5 units 5 units Q12HR SQ 03/08/17 21:15 03/11/17 08:41 Pharmacy Profile Note 0 ml @ 0 mls/hr UNSCH OTHER 03/08/17 21:15 (Zosyn 4.5 Gm Premix) 100 ml @ 200 mls/hr Q6H IV 03/08/17 22:00 03/11/17 16:54 (Lipitor) 20 mg HS PO 03/08/17 23:09 03/10/17 21:35 (Neurontin) 400 mg TID PO 03/08/17 23:10 03/11/17 13:23 (Proamatine) 5 mg TID PO 03/09/17 13:00 03/11/17 13:23 Sodium Chloride 1 gm 1 gm DAILY PO 03/09/17 09:15 03/11/17 08:39 (Vancomycin Inj/ NS 250 ml Inj) 262.5 ml @ 250 mls/hr Q12H IV 03/09/17 16:00 03/11/17 04:01 (Lovenox Inj) 40 mg Q24H SQ 03/10/17 13:00 03/11/17 13:23 Family History Mother: but unsure of medical history Father: , heart disease Sister: CAD Two healthy children (son and daughter) History of cancers in the family but unsure of who or what kind. Social History Tobacco: quit in 2003, smoked about 1/2 PPD x 14 years prior to quitting Etoh: denies Illicit drugs: denies Unemployed, disabled Physical Exam Vital Signs Vital Signs Date Time Temp Pulse Resp B/P Pulse Ox O2 Delivery O2 Flow Rate FiO2 03/11/17 12:00 97.6 86 13 167/97 99 03/11/17 08:00 98.1 87 12 143/78 99 03/11/17 00:00 97.8 78 20 138/82 97 03/10/17 20:14 100 03/10/17 20:00 98.0 80 20 143/84 100 Physical Exam GENERAL: This is a well-nourished, well-developed patient, in no apparent distress. SKIN: No rashes, ecchymoses or lesions. Cool and dry. HEAD: Atraumatic. Normocephalic. No temporal or scalp tenderness. EYES: Pupils equal round and reactive. Extraocular motions intact. No scleral icterus. No injection or drainage. ENT: Nose without bleeding, purulent drainage or septal hematoma. Throat without erythema, tonsillar hypertrophy or exudate. Uvula midline. Airway patent. NECK: Trachea midline. Supple, nontender, no meningeal signs. CARDIOVASCULAR: Regular rate and rhythm RESPIRATORY: Clear to auscultation. Breath sounds equal bilaterally. No wheezes , rales, or rhonchi. GASTROINTESTINAL: Abdomen soft, non-tender, nondistended. MUSCULOSKELETAL: Right great toe on plantar aspect patient had superficial skin peeling. No bone visible. Right hand middle finger there was a swelling noted that is nontender with induration and very minimal if any erythema. NEUROLOGICAL: Awake and alert. Grossly non focal. Psych: cooperative IV line sites with no e.o infection. Laboratory Laboratory Tests Test 03/10/17 03/11/17 17:57 04:00 Hemoglobin A1c 8.5 White Blood Count 3.4 Red Blood Count 3.46 Hemoglobin 10.2 Hematocrit 29.2 Mean Corpuscular Volume 84.3 Mean Corpuscular Hemoglobin 29.5 Mean Corpuscular Hemoglobin 35.0 Concent Red Cell Distribution Width 13.8 Platelet Count 278 Mean Platelet Volume 7.8 Neutrophils (%) (Auto) 59.8 Lymphocytes (%) (Auto) 27.0 Monocytes (%) (Auto) 10.4 Eosinophils (%) (Auto) 2.0 Basophils (%) (Auto) 0.8 Neutrophils # (Auto) 2.1 Lymphocytes # (Auto) 0.9 Monocytes # (Auto) 0.4 Eosinophils # (Auto) 0.1 Basophils # (Auto) 0.0 CBC Comment DIFF FINAL Differential Comment Sodium Level 140 Potassium Level 4.1 Chloride Level 102 Carbon Dioxide Level 31.9 Anion Gap 6 Blood Urea Nitrogen 11 Creatinine 0.76 Estimat Glomerular Filtration 81 Rate Random Glucose 172 Calcium Level 9.6 Vancomycin Level Trough 22.8 Date/Time Procedure Status Source Growth 03/09/17 02:30 Gram Stain - Final Complete Wound Toe 03/09/17 02:30 Wound Culture - Final Complete S. Aureus Mrsa Group A Beta Strep 03/08/17 19:39 Urine Culture - Final Complete Urine Random Urine Escherichia Coli Esbl Positive Result Diagram: 03/11/17 0400 03/11/17 0400 Imaging Last Impressions Head CT 03/08/171725 Signed Impressions: Service Date/Time: Wednesday, March 08, 2017 17:54 - CONCLUSION: Right-sided mastoiditis. No acute intracranial findings Rc Cruz MD Chest X-Ray 03/08/171725 Signed Impressions: Service Date/Time: Wednesday, March 08, 2017 17:39 - CONCLUSION: No acute disease. Lloyd Joyce Jr., MD Hand X-Ray 03/08/17 0000 Signed Impressions: Service Date/Time: Wednesday, March 08, 2017 17:48 - CONCLUSION: No acute abnormality. Lloyd Joyce Jr., MD Foot X-Ray 03/08/17 0000 Signed Impressions: Service Date/Time: Wednesday, March 08, 2017 17:42 - CONCLUSION: No definite acute bony process Rc Cruz MD Assessment and Plan Assessment and Plan Right great toe MRSA as well as strep infection appears to be superficial. Patient was prescribed Bactrim and Levaquin but unfortunately did not improve not sure if patient was actually Compliant with these medications. Right hand middle finger ? abscess ESBL in the urine: likely contaminant. Patient is asymptomatic before and after arrival despite not treat not being targeted towards ESBL. 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 Umanzor) Peripheral neuropathy AICD in place Peripheral vascular disease Hepatitis C Recs Continue Vanco IV for now. Continue wound care per podiatry. await Hand surgery eval Will follow along with you. Hopefully we can have casey saw operator arrange once a day infusion of Telavancin in infusion clinic. If not Zyvox oral. Follow cultures Follow clinically. She needs appropriate treatment for the infection ? compliance as factor for non response. Based on cultures Bactrim and Levaqin should have worked. Shantel Booth MD March 11, 2017 17:33
[2017-03-11 20:00] VITALS: BP 130/78; PULSE 82; RESP 20; TEMP 98.9; O2SAT 100
[2017-03-11] MEDS: ATORVASTATIN 20 MG TAB PO SCH (20:38)
--- NOTE | 2017-03-11 23:04 | PD.ORT.PN ---
Subjective Subjective Remarks Please see dictated note for full details. Patient does not remember when she injured right middle finger. Reports some improvement since being in the hospital. Objective Vitals Vital Signs Date Time Temp Pulse Resp B/P Pulse Ox O2 Delivery O2 Flow Rate FiO2 03/11/17 20:00 98.9 82 20 130/78 100 03/11/17 16:00 97.8 90 16 126/77 100 03/11/17 12:00 97.6 86 13 167/97 99 03/11/17 08:00 98.1 87 12 143/78 99 03/11/17 00:00 97.8 78 20 138/82 97 I/O 03/10/17 03/10/17 03/10/17 03/11/17 03/11/17 03/11/17 07:00 15:00 23:00 07:00 15:00 23:00 Intake Total 1118 ml 960 ml 480 ml 240 ml 940 ml Output Total 700 ml 650 ml 600 ml Balance 418 ml 960 ml -170 ml -360 ml 940 ml Intake Oral 480 ml 960 ml 480 ml 240 ml 840 ml IV Total 638 ml 100 ml Output Urine Total 700 ml 650 ml 600 ml # Voids 1 4 # Bowel Movements 0 1 0 0 3 Result Diagram: 03/11/17 0400 03/11/17 0400 Objective Remarks Scab over dorsum right middle finger, no purulent drainage, mild erythema, patient able to fire extensor and flexors, no pain with passive range of motion right middle finger, <2 sec capillary refill, sitlt radial and ulnar sides Assessment & Plan Assessment and Plan 51yF with pmhx diabetes admitted for toe infection noted to have swelling right middle finger -On clinical exam evidence of cellulitis with a scab improving on Ab, no indication for surgical intervention at this time. will continue on antibiotics per ID and continue to follow Nicolette Dotson MD March 11, 2017 23:03
[2017-03-12] VITALS: BP 132/76; PULSE 73; RESP 18; TEMP 97.1; O2SAT 96
--- NOTE | 2017-03-12 04:58 | MB ---
cc: NICOLETTE DOTSON MD DATE OF CONSULTATION: 03/11/2017 REASON FOR CONSULTATION Swelling right middle finger. HISTORY OF PRESENT ILLNESS Jaqueline Arechiga is a 51-year-old right-hand dominant female who states that at home she uses a wheelchair and a walker and has assistance from her boyfriend. Past medical history is notable for diabetes with noncompliance. She was admitted for right fifth toe amputation and was incidentally known to have swelling over the right middle finger PIP joint. The patient is a poor historian and unable to state how long this has been present, although she believes several weeks. She states in the past she has had similar periods of swelling over her fingers which resolved. PAST MEDICAL HISTORY: Significant for: 1. Peripheral neuropathy. 2. Peripheral vascular disease. 3. Hepatitis B. 4. Home health care for wound care. She is currently on IV antibiotics per infectious disease. I was asked to evaluate the right hand. She is right hand dominant. She is currently on vancomycin and zosyn per the nurse with some improvement in the hand overnight. She has had no drainage. 5. Insulin-dependent diabetes. 6. 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 7. Peripheral neuropathy. 8. Hypertension. 9. Hyperlipidemia. 10. Pacemaker in place for peripheral vascular disease. 11. Hepatitis B. 12. Genital herpes. 13. Pancreatitis. PAST SURGICAL HISTORY: 1. Cholecystectomy. 2. Appendectomy. 3. Tonsillectomy. 4. Right fifth digit amputation. 5. Pacemaker. 6. Femoral stent. 7. . MEDICATIONS: 1. Midodrine. 2. Atorvastatin. 3. Gabapentin. 4. Januvia ALLERGIES COMPAZINE, ULTRAM, PERCOCET, METFORMIN, MORPHINE SOCIAL HISTORY The patient states that she quit smoking, denies tobacco or drug use. She is currently disabled. PHYSICAL EXAMINATION Vital signs are stable. Extremities: Exam of the right hand shows a small eschar over the dorsum of the right middle finger PIP joint. There is no fluctuance or purulent drainage. There is mild erythema over the area. The patient does have full extension of the right middle finger and flexion with no pain with passive range of motion. Sensation is present but decreased on the radial ulnar side. Less than 2-second capillary refill. LABORATORY DATA White count 3.9, glucose 138, A1c 8.5. X-rays of the right hand showed no evidence of fracture or osteomyelitis. ASSESSMENT/PLAN 51-year-old female with significant past medical history including diabetes, hepatitis, with unknown duration of a wound over the dorsum of the right middle finger. At this time there is no urgency for surgical intervention. I spoke with infectious disease. Will continue on antibiotics and continue to follow. Hopefully this should improve on antibiotics. If not, the patient may require surgical intervention. Nicolette Dotson MD /WINSOME /11:08 PM /3:54 AM MTDIndy
[2017-03-12] MEDS: VANCOMYCIN INJ 1,250 MG in SODIUM CHLOR 0.9% 250 ML INJ 250 ML IV SCH ×2 (05:10→16:59)
[2017-03-12] MEDS: INSULIN ASPART SUPPLEMENTAL SCALE SQ SCH ×4 (05:10→20:10)
[2017-03-12 05:24] LABS: AUTOMATED NEUTROPHIL # 1.4 TH/MM3 (1.8-7.7); BASOPHIL % 1.2 % (0.0-2.0); EOSINOPHIL # 0.1 TH/MM3 (0-0.4); EOSINOPHIL % 2.3 % (0.0-4.0); HEMATOCRIT 31.7 % (35.0-46.0); HEMO FLAGS DIFF FINAL; LYMPH % 33.8 % (9.0-44.0); LYMPHOCYTE # 0.9 TH/MM3 (1.0-4.8); MEAN CELL VOLUME 85.5 FL (80.0-100.0); MEAN CORPUSCULAR HEMOGLOBIN 28.4 PG (27.0-34.0); MEAN CORPUSCULAR HGB CONC 33.2 % (32.0-36.0); MONO % 11.8 % (0.0-8.0); NEUT % 50.9 % (16.0-70.0); PLATELET COUNT 263 TH/MM3 (150-450); RED CELL DISTRIBUTION WIDTH 13.9 % (11.6-17.2); WHITE BLOOD COUNT 2.7 TH/MM3 (4.0-11.0)
[2017-03-12 05:46] LABS: BICARBONATE 31.6 MEQ/L (21.0-32.0); POTASSIUM 3.8 MEQ/L (3.5-5.1)
[2017-03-12 08:00] VITALS: BP 116/60; PULSE 90; RESP 18; TEMP 99.1; O2SAT 98
[2017-03-12] MEDS: MIDODRINE 5 MG TAB PO SCH ×3 (09:19→17:54)
[2017-03-12] MEDS: SODIUM CHLORIDE 1 GRAM TAB PO SCH (09:19)
[2017-03-12] MEDS: GABAPENTIN 400 MG CAP PO SCH ×3 (09:19→17:54)
[2017-03-12] MEDS: INSULIN DETEMIR 100 UNITS/ML VIAL SQ SCH ×2 (09:20→20:10)
[2017-03-12] MEDS: SODIUM CHLORIDE 0.9% FLUSH 10 ML FLUSH IV FLUSH SCH ×2 (09:20→20:09)
--- NOTE | 2017-03-12 10:56 | HHI.FPPN ---
Subjective Remarks Ms Arechiga is feeling much better and wishes to go home when possible, today she requested. It was explained that we need to work out her abx prior to D/C. She has in the past had times when she did not take her meds completely and reliably at home but she says she is doing well at this point with adhering to her medicines. We discussed her orthostasis as she had such huge drops in her BP when standing in the past but is less symptomatic now. It is unclear that the chemo and radiation she had contributed to her orthostasis as she did not have this at all until she started her cancer treatments. However, her DM can cause autonomic dysfunction. Objective Vitals Vital Signs Date Time Temp Pulse Resp B/P Pulse Ox O2 Delivery O2 Flow Rate FiO2 03/12/17 08:00 99.1 90 18 116/60 98 03/12/17 00:00 97.1 73 18 132/76 96 03/11/17 20:00 98.9 82 20 130/78 100 03/11/17 16:00 97.8 90 16 126/77 100 03/11/17 12:00 97.6 86 13 167/97 99 I/O 03/11/17 03/11/17 03/11/17 03/12/17 03/12/17 03/12/17 07:00 15:00 23:00 07:00 15:00 23:00 Intake Total 240 ml 940 ml 240 ml 240 ml Output Total 600 ml Balance -360 ml 940 ml 240 ml 240 ml Intake Oral 240 ml 840 ml 240 ml 240 ml IV Total 100 ml Output Urine Total 600 ml # Voids 4 1 1 # Bowel Movements 0 3 0 1 Result Diagram: 03/12/17 0500 03/12/17 0500 Objective Remarks GENERAL: female sitting up in bed smiling in NAD. SKIN: Warm and dry. HEENT: AT/NC. Pupils equal and round. MMM. HEART: RRR no m/r/g. LUNGS: CTAB without wheezes or crackles. ABDOMEN: Soft, NT, ND. EXTREMITIES: Large ulceration involving essentially the entire plantar aspect of the right hallux with moderate serosanguineous exudate and underlying pink granulation tissue. No exposed muscle or bone. Absent right fifth digit. Blister on PIP of right third digit with surrounding erythema. (Today her foot was bandaged without any drainage and we did not remove it.) Her finger has a small open wound about 1 cm in diameter without pus, surrounding erythema or exudate. NEURO: Awake and alert. PSYCH: Appropriate mood and affect. Speaks in a child-like voice. Urinary Catheter: No Vascular Central Line Catheter: Yes Line: Central Venous Catheter Side: Right Location: Subclavian Reason for Continuation port for chemo that can be removed when her oncologist deem appropriate A/P Assessment and Plan 51 year old female with extensive PMH including poorly-controlled DM secondary to noncompliance, h/o osteomyelitis s/p right 5th toe amputation, orthostatic hypotension, peripheral neuropathy, hepatitis C, and right great toe diabetic ulcer admitted on 03/08 for diabetic foot infection. Discharge Planning Anticipate D/C in 1-2 days as she is improving. Problem List: (1) Cellulitis of great toe Status: Chronic Plan: Patient admitted after failing outpatient treatment with Levaquin and Bactrim for right great toe infection. Does not meet sepsis criteria. Foot XR negative for osteomyelitis. - Podiatry and wound care consulted; recommend Maxorb dressing - No blood cultures drawn at admission and patient already on two days of antibiotics; obtain if febrile - Wound culture shows MRSA, group A beta strep - PT to eval and treat, agree with wheelchair at D/C (2) UTI (urinary tract infection) Status: Acute Plan: Urine growing ESBL + E. coli resistant to multiple antibiotics. Sensitive to Zosyn which she is received for her wound. consulted ID with her multiple and various bacteria, appreciate their help in deciding best abx and length of treatment (3) Frequent falls Status: Chronic Plan: Patient with history of frequent falls with multifactorial cause including orthostatic hypotension, severe diabetic neuropathy, and debility. Has walker and wheelchair at home but wheel has broken. Case management consulted for DME needs. - PT consulted to eval and treat - Continue home midodrine for orthostatic hypotension (4) DM (diabetes mellitus), type 2, uncontrolled w/neurologic complication Status: Chronic Plan: Patient refuses insulin as an outpatient and compliance with Januvia and Bydureon is questionable. While in the hospital, will have her on Levemir 5 units BID and low-dose SSI per protocol. (5) Nutrition, metabolism, and development symptoms Status: Acute Plan: - Fluids: Tolerating PO - Electrolytes: WNL - Nutrition: Diabetic diet - DVT prophylaxis: Lovenox 40 mg SQ Q24H Chronic medical problems not acute being addressed: - HLD: Continue home statin - Neuropathy: Continue home gabapentin (6) Hand abrasion Status: Acute Plan: saw hand surgeon no surgery needed abrasion appears to be healing Problem Qualifiers (1) Cellulitis of great toe: Qualified Code: L03.031 - Cellulitis of great toe, right (2) UTI (urinary tract infection): Qualified Code: N30.00 - Acute cystitis without hematuria (3) DM (diabetes mellitus), type 2, uncontrolled w/neurologic complication: Qualified Code: E11.42 - Uncontrolled type 2 diabetes mellitus with diabetic polyneuropathy, with long-term current use of insulin (4) Hand abrasion: Qualified Code: S60.511A - Hand abrasion, right, initial encounter Felicia Herrera MD March 12, 2017 10:56
[2017-03-12 12:00] VITALS: BP 113/69; PULSE 96; RESP 20; TEMP 98.6; O2SAT 99
[2017-03-12] MEDS: ENOXAPARIN SODIUM 40 MG/0.4 ML SYRINGE SQ SCH (13:07)
[2017-03-12 16:00] VITALS: BP 98/64; PULSE 93; RESP 20; TEMP 99.4; O2SAT 98
[2017-03-12] MEDS ORDERED: MIDO5TAB PO (19:24)
[2017-03-12 20:00] VITALS: BP 107/66; PULSE 88; RESP 20; TEMP 98.6; O2SAT 99
[2017-03-12] MEDS: ATORVASTATIN 20 MG TAB PO SCH (20:10)
[2017-03-13] VITALS: BP 129/70; PULSE 71; RESP 18; TEMP 98.6; O2SAT 98
[2017-03-13] MEDS ORDERED: PHARMACY ORDERED LAB ONE (03:45)
[2017-03-13] MEDS: VANCOMYCIN INJ 1,250 MG in SODIUM CHLOR 0.9% 250 ML INJ 250 ML IV SCH (04:10)
[2017-03-13 04:35] LABS: HEMATOCRIT 31.8 % (35.0-46.0); MEAN CELL VOLUME 86.2 FL (80.0-100.0); MEAN CORPUSCULAR HEMOGLOBIN 28.2 PG (27.0-34.0); MEAN CORPUSCULAR HGB CONC 32.7 % (32.0-36.0); PLATELET COUNT 290 TH/MM3 (150-450); RED BLOOD COUNT 3.68 MIL/MM3 (4.00-5.30); RED CELL DISTRIBUTION WIDTH 13.8 % (11.6-17.2); REVIEW FLAG FINAL; WHITE BLOOD COUNT 4.1 TH/MM3 (4.0-11.0)
[2017-03-13 04:55] LABS: POTASSIUM 4.1 MEQ/L (3.5-5.1)
[2017-03-13] MEDS: INSULIN ASPART SUPPLEMENTAL SCALE SQ SCH ×4 (05:27→22:33)
[2017-03-13 08:00] VITALS: BP 109/57; PULSE 97; RESP 16; TEMP 98.6; O2SAT 99
--- NOTE | 2017-03-13 08:48 | HHI.FPPN ---
Subjective Remarks Patient was seen and examined this morning. She asserts that she took the Levaquin and Bactrim as prescribed while outpatient. She denies fevers, chills, nausea, vomiting, abdominal pain, wound pain, shortness of breath. She wants to go home today. (Consuelo Paz MD R1) Objective Vitals Vital Signs Date Time Temp Pulse Resp B/P Pulse Ox O2 Delivery O2 Flow Rate FiO2 03/13/17 00:00 98.6 71 18 129/70 98 03/12/17 20:00 98.6 88 20 107/66 99 03/12/17 16:00 99.4 93 20 98/64 98 03/12/17 12:00 98.6 96 20 113/69 99 I/O 03/12/17 03/12/17 03/12/17 03/13/17 03/13/17 03/13/17 07:00 15:00 23:00 07:00 15:00 23:00 Intake Total 1440 ml 240 ml 120 ml Output Total 950 ml Balance 490 ml 240 ml 120 ml Intake Oral 1440 ml 240 ml 120 ml IV Total 0 ml Output Urine Total 950 ml # Voids 1 1 2 # Bowel Movements 5 1 1 (Consuelo Paz MD R1) Result Diagram: 03/13/17 0400 03/13/17 0400 Imaging Last Impressions Head CT 03/08/171725 Signed Impressions: Service Date/Time: Wednesday, March 08, 2017 17:54 - CONCLUSION: Right-sided mastoiditis. No acute intracranial findings Rc Cruz MD Chest X-Ray 03/08/171725 Signed Impressions: Service Date/Time: Wednesday, March 08, 2017 17:39 - CONCLUSION: No acute disease. Lloyd Joyce Jr., MD Hand X-Ray 03/08/17 0000 Signed Impressions: Service Date/Time: Wednesday, March 08, 2017 17:48 - CONCLUSION: No acute abnormality. Lloyd Joyce Jr., MD Foot X-Ray 03/08/17 0000 Signed Impressions: Service Date/Time: Wednesday, March 08, 2017 17:42 - CONCLUSION: No definite acute bony process Rc Cruz MD Objective Remarks GENERAL: female sitting up in bed waiting for breakfast. SKIN: Warm and dry. Skin exam as below. HEENT: AT/NC. Pupils equal and round. MMM. HEART: RRR no m/r/g. LUNGS: CTAB without wheezes or crackles. ABDOMEN: Soft, NT, ND. Normal bowel sounds. EXTREMITIES: Large ulceration involving essentially the entire plantar aspect of the right hallux with moderate serosanguineous exudate and underlying pink granulation tissue. No exposed muscle or bone. Absent right fifth digit. Blister on PIP of right third digit with surrounding erythema. Her finger has a small nodule about 1 cm in diameter without pus, surrounding erythema or exudate. NEURO: Awake and alert. PSYCH: Appropriate mood and affect. Medications and IVs Inpatient Medications Acetaminophen (Tylenol) 650 mg Q4H PRN PO TEMP > 100.4; Start 03/08/17 at 21:15 Albuterol Sulfate (Albuterol Neb) 2.5 mg Q2HR NEB PRN INH SHORTNESS OF BREATH; Start 03/08/17 at 21:15 Atorvastatin Calcium (Lipitor) 20 mg HS PO Last administered on 03/12/17 20:10 ; Start 03/08/17 at 23:09 Ceftriaxone Sodium 1000 mg/ Sodium Chloride 50 ml @ 100 mls/hr ONCE ONCE IV Last administered on 03/08/17 21:20; Start 03/08/17 at 20:30; Stop 03/08/17 at 20: 59; Status DC Enoxaparin Sodium (Lovenox Inj) 40 mg Q24H SQ Last administered on 03/12/17 13: 07; Start 03/10/17 at 13:00 Gabapentin (Neurontin) 400 mg TID PO Last administered on 03/13/17 09:05; Start 03/08/17 at 23:10 Insulin Aspart (NovoLOG SUPPLEMENTAL SCALE) 1 ACHS SLIDING SCALE SQ Last administered on 03/13/17 05:27; Start 03/09/17 at 07:00 Insulin Detemir 5 units 5 units Q12HR SQ Last administered on 03/13/17 09:05; Start 03/08/17 at 21:15 Midodrine (Proamatine) 5 mg TID PO Last administered on 03/13/17 09:05; Start 03/09/17 at 13:00 Miscellaneous Information SPECIFIC LAB TO BE AGUSTIN... ONCE ONCE .XX Last administered on 03/13/17 03:45; Start 03/13/17 at 03:45; Stop 03/13/17 at 03:46; Status DC Naloxone HCl (Narcan Inj) 0.4 mg UNSCH PRN IV SEE LABEL COMMENTS; Start at 21:15 Ondansetron HCl (Zofran Inj) 4 mg Q6H PRN IVP NAUSEA OR VOMITING; Start at 21:15 Pharmacy Profile Note 0 ml @ 0 mls/hr UNSCH OTHER ; Start 03/08/17 at 21:15 Piperacillin Sod/ Tazobactam Sod (Zosyn 4.5 Gm Premix) 100 ml @ 200 mls/hr Q6H IV Last administered on 03/11/17 16:54; Start 03/08/17 at 22:00; Stop 03/11/17 at 17:45; Status DC Senna/Docusate Sodium (Tamiko-Colace) 1 tab BID PRN PO CONSTIPATION; Start at 21:15 Sodium Chloride (NS 1000 ml Inj) 1,000 ml @ 100 mls/hr Q10H IV Last administered on 03/09/17 21:41; Start 03/08/17 at 22:00; Stop 03/10/17 at 12:21; Status DC Sodium Chloride (NS Flush) 2 ml BID IV FLUSH Last administered on 03/13/17 09: 06; Start 03/08/17 at 21:15 Sodium Chloride 1 gm 1 gm DAILY PO Last administered on 03/13/17 09:05; Start 03/09/17 at 09:15 Sodium Chloride 2 ml 2 ml UNSCH PRN IVF FLUSH AFTER USING IV ACCESS; Start 03/08 at 17:30; Stop 03/09/17 at 05:27; Status DC Vancomycin HCl 1050 mg/Sodium Chloride 260.5 ml @ 250 mls/hr ONCE ONCE IV Last administered on 03/08/17 20:09; Start 03/08/17 at 19:45; Stop 03/08/17 at 20: 47; Status DC Vancomycin HCl/ Sodium Chloride (Vancomycin Inj/ NS 250 ml Inj) 262.5 ml @ 250 mls/hr Q12H IV Last administered on 03/13/17 04:10; Start 03/09/17 at 16:00; Status Hold (Consuelo Paz MD R1) Urinary Catheter: No (Consuelo Paz MD R1) Vascular Central Line Catheter: No Line: Central Venous Catheter Side: Right Location: Subclavian (Consuelo Paz MD R1) A/P Assessment and Plan 51 year old female with extensive PMH including poorly-controlled DM secondary to noncompliance, h/o osteomyelitis s/p right 5th toe amputation, orthostatic hypotension, peripheral neuropathy, hepatitis C, and right great toe diabetic ulcer admitted on 03/08 for diabetic foot infection. Discharge Planning Anticipate D/C today, pending ID recommendations for outpatient antibiotics ( Consuelo Paz MD R1) Attending Attestation Patient seen and examined. Case reviewed and discussed with the resident team. Agree with plan of care as discussed with me and documented in the resident note. (Felicia Herrera MD) Problem List: (1) Cellulitis of great toe Status: Acute Plan: Patient admitted after failing outpatient treatment with Levaquin and Bactrim for right great toe infection. She has been managed as an outpatient for this ulcer which did not improve. Did not meet sepsis criteria. Foot XR negative for osteomyelitis. - Podiatry and wound care consulted; recommend Maxorb dressing and dressing changes every other day - No blood cultures drawn at admission and patient already on antibiotics prior to admission; obtain if febrile - Wound culture shows MRSA, group A beta strep - PT to eval and treat, agree with wheelchair at D/C (2) Chronic foot ulcer Status: Chronic Plan: Management as above (3) Hand abrasion Status: Acute Plan: Hand surgery was consulted per podiatry. Recommend continued medical management with no surgery recommended at this time. Abrasion appears to be healing (4) UTI (urinary tract infection) Status: Acute Plan: Urine growing ESBL + E. coli resistant to multiple antibiotics. Sensitive to Zosyn which she is received for her wound. Consulted ID with her multiple and various bacteria, appreciate their help in deciding best abx and length of treatment (5) Frequent falls Status: Chronic Plan: Patient with history of frequent falls with multifactorial cause including orthostatic hypotension, severe diabetic neuropathy, and debility. Has walker and wheelchair at home but wheel has broken. Case management consulted for DME needs. - PT consulted to eval and treat, recommended home with home health - Continue home midodrine for orthostatic hypotension (6) DM (diabetes mellitus), type 2, uncontrolled w/neurologic complication Status: Chronic Plan: Patient refuses insulin as an outpatient and compliance with Januvia and Bydureon is questionable. While in the hospital, will have her on Levemir 5 units BID and low-dose SSI per protocol. (7) Nutrition, metabolism, and development symptoms Status: Acute Plan: - Fluids: Tolerating PO - Electrolytes: WNL - Nutrition: Diabetic diet - DVT prophylaxis: Lovenox 40 mg SQ Q24H Chronic medical problems not acute being addressed: - HLD: Continue home statin - Neuropathy: Continue home gabapentin (Consuelo Paz MD R1) Problem Qualifiers (1) Cellulitis of great toe: Qualified Code: L03.031 - Cellulitis of great toe, right (2) Chronic foot ulcer: Qualified Code: L97.512 - Chronic foot ulcer, right, with fat layer exposed (3) Hand abrasion: Qualified Code: S60.511A - Hand abrasion, right, initial encounter (4) UTI (urinary tract infection): Qualified Code: N30.00 - Acute cystitis without hematuria (5) DM (diabetes mellitus), type 2, uncontrolled w/neurologic complication: Qualified Code: E11.42 - Uncontrolled type 2 diabetes mellitus with diabetic polyneuropathy, with long-term current use of insulin Consuelo Paz MD R1 March 13, 2017 08:47 Felicia Herrera MD March 14, 2017 13:25
[2017-03-13] MEDS: INSULIN DETEMIR 100 UNITS/ML VIAL SQ SCH ×2 (09:05→20:31)
[2017-03-13] MEDS: SODIUM CHLORIDE 1 GRAM TAB PO SCH (09:05)
[2017-03-13] MEDS: GABAPENTIN 400 MG CAP PO SCH ×3 (09:05→17:34)
[2017-03-13] MEDS: MIDODRINE 5 MG TAB PO SCH ×3 (09:05→17:34)
[2017-03-13] MEDS: SODIUM CHLORIDE 0.9% FLUSH 10 ML FLUSH IV FLUSH SCH ×2 (09:06→20:31)
[2017-03-13] MEDS ORDERED: MIDO5TAB PO (09:35)
--- NOTE | 2017-03-13 09:37 | HHI.FF ---
Face to Face Verification Diagnosis: (1) Chronic foot ulcer (2) Cellulitis of foot, right (3) DM (diabetes mellitus), type 2, uncontrolled w/neurologic complication Physical Therapy Order: Evaluate and Treat, Improve ambulation, Strength and gait training Home Health Nursing Order: Signs/symptoms of disease process Medication education-adverse effect Wound care and dressing changes Nursing assessment with vital signs I have seen patient Jaqueline Arechiga on 03/13/17. My clinical findings support the need for the requested home health care services because: Deconditioned w/ increased weakness Infection w/ risk of complications I certify that my clinical findings support that this patient is homebound because: Unsteady gait/balance Unsafe to leave home unassisted Consuelo Paz MD R1 March 13, 2017 09:37
[2017-03-13 12:00] VITALS: BP 115/77; PULSE 89; RESP 16; TEMP 98.4; O2SAT 98
[2017-03-13] MEDS: ENOXAPARIN SODIUM 40 MG/0.4 ML SYRINGE SQ SCH (12:46)
--- NOTE | 2017-03-13 15:49 | HHI.IDPN ---
Subjective Subjective Remarks Ms. Arechiga is a 51-year-old female with past medical history significant for poorly controlled diabetes secondary to noncompliance, history of osteomyelitis status post right fifth toe amputation, history of orthostatic hypertension, peripheral neuropathy, peripheral vascular disease, hepatitis C. Patient reports that she has a right great toe infection. Upon questioning her she reports that while she was sleeping she may have injured this arrhythmia with a teacher in the home and aren't that area she continued to receive home health for wound care and PT. She now presents to the emergency department with multiple complaints. One of her major complaints was that her wheelchair wheel is broken. She also reports that she felt dizzy and fell inside a store. Details of the fall could not be elicited. Denies any history of trauma that incident. Denies any seizure activity or urine or bowel incontinence. He reports a history of frequent falls at home in the past. Patient also reports that her right great toe infection has been getting worse lately. She was seen at the [facility] and was prescribed Levaquin and Bactrim and was instructed to follow-up with podiatry. Sure about patient' s compliance with these oral medications. A wound culture of her foot from 2016 grew MRSA sensitive to vancomycin. Patient was admitted here from 01/16- for this same issue and had a wound culture growing MRSA, pseudomonas, and aerococcus. Infectious disease is consulted for evaluation and management of great toe also MRSA and strep infection as well as possible right middle finger of the hand infection. Since the patient also has a urine culture that is positive for ESBL. ID following for MRSA and Strep DFI Overnight events reviewed No fevers No rash No diarrhea Antibiotics Vanco IV Lines Line sites with no e.o infection Past Medical History reviewed Allergies: Coded Allergies: Compazine (Verified Allergy, Severe, 03/08/17) ANXIETY Ultram (Verified Allergy, Intermediate, Rash, 03/08/17) MRI PRECAUTION (Verified Adverse Reaction, Severe, PACEMAKER IS NOT A BIOTRONIK OR MEDTRONIC 06/15/16 KMD, 03/08/17) PACEMAKER IS NOT A BIOTRONIK OR MEDTRONIC CONDITIONAL PACEMAKER. CALLED BOTH COMPANIES TO CONFIRM. Percocet (Verified Adverse Reaction, Severe, Nausea/Vomiting, 03/08/17) *MDRO Multi-Drug Resistant Organism (Verified Adverse Reaction, Unknown, ESBL, MRSA, 03/13/17) E. coli ESBL (urine) - 2012, 2013, 2014, 04/2016, 02/03/2017, 03/08/2017 MRSA - 2003, 03/2015, 03/09/2017 (toe wound), 10/2015 (arm/back wound), (foot-08/17/16 & 01/11/17) Metformin (Verified Adverse Reaction, Unknown, DIARRHEA, 03/08/17) Morphine (Verified Adverse Reaction, Unknown, Dizziness, 03/08/17) states doesn't want-does not like the way it makes me feel Objective . Vital Signs Date Time Temp Pulse Resp B/P Pulse Ox O2 Delivery O2 Flow Rate FiO2 03/13/17 12:00 98.4 89 16 115/77 98 03/13/17 08:00 98.6 97 16 109/57 99 03/13/17 00:00 98.6 71 18 129/70 98 03/12/17 20:00 98.6 88 20 107/66 99 03/12/17 16:00 99.4 93 20 98/64 98 03/12/17 03/12/17 03/13/17 15:00 23:00 07:00 Intake Total 1440 ml 240 ml 120 ml Output Total 950 ml Balance 490 ml 240 ml 120 ml Intake Oral 1440 ml 240 ml 120 ml IV Total 0 ml Output Urine Total 950 ml # Voids 1 1 2 # Bowel Movements 5 1 1 . Laboratory Tests Test 03/12/17 03/13/17 05:00 04:00 White Blood Count 2.7 TH/MM3 4.1 TH/MM3 Red Blood Count 3.70 MIL/MM3 3.68 MIL/MM3 Hemoglobin 10.5 GM/DL 10.4 GM/DL Hematocrit 31.7 % 31.8 % Mean Corpuscular Volume 85.5 FL 86.2 FL Mean Corpuscular Hemoglobin 28.4 PG 28.2 PG Mean Corpuscular Hemoglobin 33.2 % 32.7 % Concent Red Cell Distribution Width 13.9 % 13.8 % Platelet Count 263 TH/MM3 290 TH/MM3 Mean Platelet Volume 7.7 FL 7.5 FL Neutrophils (%) (Auto) 50.9 % Lymphocytes (%) (Auto) 33.8 % Monocytes (%) (Auto) 11.8 % Eosinophils (%) (Auto) 2.3 % Basophils (%) (Auto) 1.2 % Neutrophils # (Auto) 1.4 TH/MM3 Lymphocytes # (Auto) 0.9 TH/MM3 Monocytes # (Auto) 0.3 TH/MM3 Eosinophils # (Auto) 0.1 TH/MM3 Basophils # (Auto) 0.0 TH/MM3 CBC Comment DIFF FINAL Differential Comment Laboratory Tests Test 03/12/17 03/13/17 05:00 04:00 Sodium Level 138 MEQ/L 140 MEQ/L Potassium Level 3.8 MEQ/L 4.1 MEQ/L Chloride Level 100 MEQ/L 102 MEQ/L Carbon Dioxide Level 31.6 MEQ/L 31.0 MEQ/L Anion Gap 6 MEQ/L 7 MEQ/L Blood Urea Nitrogen 9 MG/DL 14 MG/DL Creatinine 0.65 MG/DL 1.08 MG/DL Estimat Glomerular Filtration 96 ML/MIN 54 ML/MIN Rate Random Glucose 182 MG/DL 186 MG/DL Calcium Level 9.5 MG/DL 9.4 MG/DL Imaging Last Impressions Head CT 03/08/176 Signed Impressions: Service Date/Time: Wednesday, March 08, 2017 17:54 - CONCLUSION: Right-sided mastoiditis. No acute intracranial findings Rc Cruz MD Chest X-Ray 03/08/17 1726 Signed Impressions: Service Date/Time: Wednesday, March 08, 2017 17:39 - CONCLUSION: No acute disease. Lloyd Joyce Jr., MD Hand X-Ray 03/08/17 0000 Signed Impressions: Service Date/Time: Wednesday, March 08, 2017 17:48 - CONCLUSION: No acute abnormality. Lloyd Joyce Jr., MD Foot X-Ray 03/08/17 0000 Signed Impressions: Service Date/Time: Wednesday, March 08, 2017 17:42 - CONCLUSION: No definite acute bony process Rc Cruz MD Physical Exam GENERAL: This is a well-nourished, well-developed patient, in no apparent distress. SKIN: No rashes, ecchymoses or lesions. Cool and dry. HEAD: Atraumatic. Normocephalic. No temporal or scalp tenderness. EYES: Pupils equal round and reactive. Extraocular motions intact. No scleral icterus. No injection or drainage. ENT: Nose without bleeding, purulent drainage or septal hematoma. Throat without erythema, tonsillar hypertrophy or exudate. Uvula midline. Airway patent. NECK: Trachea midline. Supple, nontender, no meningeal signs. CARDIOVASCULAR: Regular rate and rhythm RESPIRATORY: Clear to auscultation. Breath sounds equal bilaterally. No wheezes , rales, or rhonchi. GASTROINTESTINAL: Abdomen soft, non-tender, nondistended. MUSCULOSKELETAL: Right great toe on plantar aspect patient had superficial skin peeling. No bone visible. Right hand middle finger there was a swelling noted that is nontender with induration and very minimal if any erythema. NEUROLOGICAL: Awake and alert. Grossly non focal. Psych: cooperative IV line sites with no e.o infection. Assessment & Plan Remarks Right great toe MRSA as well as strep infection appears to be superficial. Patient was prescribed Bactrim and Levaquin but unfortunately did not improve not sure if patient was actually Compliant with these medications. Right hand middle finger ? abscess ESBL in the urine: likely contaminant. Patient is asymptomatic before and after arrival despite not treat not being targeted towards ESBL. 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 Umanzor) Peripheral neuropathy AICD in place Peripheral vascular disease Hepatitis C Recs DC Vanco IV for now (Cr increasing trend) Continue wound care per podiatry. d/w : ok to DC and have her follow up in clinic. Zyvox oral option 1. Option 2: if zyvox not approved by insurance: oral clindamycin. Would like to avoid clinda due to higher chances of Cdiff. Follow cultures Follow clinically. She needs appropriate treatment for the infection ? compliance as factor for non response. Shantel Booth MD March 13, 2017 15:49
[2017-03-13 16:00] VITALS: BP 131/85; PULSE 90; RESP 20; TEMP 99.7; O2SAT 98
[2017-03-13] MEDS ORDERED: ZYVO600T PO (17:18)
[2017-03-13 20:00] VITALS: BP_SYST 109; BP_SYST 128; BP_DIAS 63; BP_DIAS 67; BP_DIAS 77; PULSE 88; PULSE 93; RESP 18; TEMP 98.6; TEMP 98.8; O2SAT 99
[2017-03-13] MEDS: LINEZOLID 600 MG TAB PO SCH (20:31)
[2017-03-13] MEDS: ATORVASTATIN 20 MG TAB PO SCH (20:31)
[2017-03-14] VITALS: BP 109/63; PULSE 93; RESP 18; TEMP 98.8; O2SAT 99
[2017-03-14] MEDS: INSULIN ASPART SUPPLEMENTAL SCALE SQ SCH ×2 (06:31→11:00)
[2017-03-14 08:00] VITALS: BP 106/64; PULSE 85; RESP 18; TEMP 97.9; O2SAT 95
[2017-03-14] MEDS ORDERED: ONDA4TAB6 PO (08:05)
[2017-03-14] MEDS ORDERED: ATOR20TA15 PO (08:05)
[2017-03-14] MEDS ORDERED: SODI1TAB PO (08:05)
[2017-03-14] MEDS ORDERED: SITA1TAB2 PO (08:05)
[2017-03-14] MEDS ORDERED: EXENINJ SQ (08:05)
[2017-03-14] MEDS ORDERED: LOPE7.5C PO (08:05)
[2017-03-14] MEDS ORDERED: VENTAER INH (08:05)
[2017-03-14] MEDS ORDERED: GABA400C5 PO (08:05)
--- NOTE | 2017-03-14 08:15 | HHI.FPPN ---
Subjective Remarks Patient was seen and examined this morning. She is ready to go home. She had transient nausea this morning but this resolved. No voiding difficulties. No fevers, chills, pain, sob, chest pain. No new lesions. She started PO Zyvoxx yesterday with no complications and understands she will be continuing this medication upon discharge. (Consuelo Paz MD R1) Objective Vitals Vital Signs Date Time Temp Pulse Resp B/P Pulse Ox O2 Delivery O2 Flow Rate FiO2 03/14/17 00:00 98.8 93 18 109/63 99 03/13/17 20:00 98.8 93 18 109/63 99 03/13/17 20:00 98.6 88 18 128/77 99 03/13/17 20:00 98.6 88 18 128/67 99 03/13/17 16:00 99.7 90 20 131/85 98 03/13/17 12:00 98.4 89 16 115/77 98 I/O 03/13/17 03/13/17 03/13/17 03/14/17 03/14/17 03/14/17 07:00 15:00 23:00 07:00 15:00 23:00 Intake Total 120 ml 800 ml 480 ml 360 ml Output Total 300 ml 600 ml 750 ml Balance 120 ml 500 ml -120 ml -390 ml Intake Oral 120 ml 800 ml 480 ml 360 ml Output Urine Total 300 ml 600 ml 750 ml # Voids 2 2 # Bowel Movements 1 1 0 1 (Consuelo Paz MD R1) Result Diagram: 03/13/17 0400 03/13/17 0400 Imaging Last Impressions Head CT 03/08/171725 Signed Impressions: Service Date/Time: Wednesday, March 08, 2017 17:54 - CONCLUSION: Right-sided mastoiditis. No acute intracranial findings Rc Cruz MD Chest X-Ray 03/08/171725 Signed Impressions: Service Date/Time: Wednesday, March 08, 2017 17:39 - CONCLUSION: No acute disease. Lloyd Joyce Jr., MD Hand X-Ray 03/08/17 0000 Signed Impressions: Service Date/Time: Wednesday, March 08, 2017 17:48 - CONCLUSION: No acute abnormality. Lloyd Joyce Jr., MD Foot X-Ray 03/08/17 0000 Signed Impressions: Service Date/Time: Wednesday, March 08, 2017 17:42 - CONCLUSION: No definite acute bony process Rc Cruz MD Objective Remarks GENERAL: female sitting up in bed in no apparent distress. SKIN: Warm and dry. Skin exam as below. HEENT: AT/NC. Pupils equal and round. MMM. HEART: RRR no m/r/g. LUNGS: CTAB without wheezes or crackles. ABDOMEN: Soft, NT, ND. Normal bowel sounds. EXTREMITIES: Large ulceration involving essentially the entire plantar aspect of the right hallux with moderate serosanguineous exudate and underlying pink granulation tissue. No exposed muscle or bone. Absent right fifth digit. Blister on PIP of right third digit with surrounding erythema. Her finger has a small nodule about 1 cm in diameter without pus, surrounding erythema or exudate. NEURO: Awake and alert. seismic plotter II-XII grossly intact. Sensation to LEs and UEs decreased bilaterally. PSYCH: Appropriate mood and affect. Medications and IVs Inpatient Medications Acetaminophen (Tylenol) 650 mg Q4H PRN PO TEMP > 100.4; Start 03/08/17 at 21:15 Albuterol Sulfate (Albuterol Neb) 2.5 mg Q2HR NEB PRN INH SHORTNESS OF BREATH; Start 03/08/17 at 21:15 Atorvastatin Calcium (Lipitor) 20 mg HS PO Last administered on 03/13/17 20:31 ; Start 03/08/17 at 23:09 Ceftriaxone Sodium 1000 mg/ Sodium Chloride 50 ml @ 100 mls/hr ONCE ONCE IV Last administered on 03/08/17 21:20; Start 03/08/17 at 20:30; Stop 03/08/17 at 20: 59; Status DC Enoxaparin Sodium (Lovenox Inj) 40 mg Q24H SQ Last administered on 03/13/17 12: 46; Start 03/10/17 at 13:00 Gabapentin (Neurontin) 400 mg TID PO Last administered on 03/13/17 17:34; Start 03/08/17 at 23:10 Insulin Aspart (NovoLOG SUPPLEMENTAL SCALE) 1 ACHS SLIDING SCALE SQ Last administered on 03/14/17 06:31; Start 03/09/17 at 07:00 Insulin Detemir 5 units 5 units Q12HR SQ Last administered on 03/13/17 20:31; Start 03/08/17 at 21:15 Linezolid (Zyvox) 600 mg Q12HR PO Last administered on 03/13/17 20:31; Start at 21:00 Midodrine (Proamatine) 5 mg TID PO Last administered on 03/13/17 17:34; Start 03/09/17 at 13:00 Miscellaneous Information SPECIFIC LAB TO BE AGUSTIN... ONCE ONCE .XX Last administered on 03/13/17 03:45; Start 03/13/17 at 03:45; Stop 03/13/17 at 03:46; Status DC Naloxone HCl (Narcan Inj) 0.4 mg UNSCH PRN IV SEE LABEL COMMENTS; Start at 21:15 Ondansetron HCl (Zofran Inj) 4 mg Q6H PRN IVP NAUSEA OR VOMITING Last administered on 03/14/17 06:05; Start 03/08/17 at 21:15 Pharmacy Profile Note 0 ml @ 0 mls/hr UNSCH OTHER ; Start 03/08/17 at 21:15; Stop 03/13/17 at 15:49; Status DC Piperacillin Sod/ Tazobactam Sod (Zosyn 4.5 Gm Premix) 100 ml @ 200 mls/hr Q6H IV Last administered on 03/11/17 16:54; Start 03/08/17 at 22:00; Stop 03/11/17 at 17:45; Status DC Senna/Docusate Sodium (Tamiko-Colace) 1 tab BID PRN PO CONSTIPATION; Start at 21:15 Sodium Chloride (NS 1000 ml Inj) 1,000 ml @ 100 mls/hr Q10H IV Last administered on 03/09/17 21:41; Start 03/08/17 at 22:00; Stop 03/10/17 at 12:21; Status DC Sodium Chloride (NS Flush) 2 ml BID IV FLUSH Last administered on 03/13/17 20: 31; Start 03/08/17 at 21:15 Sodium Chloride 1 gm 1 gm DAILY PO Last administered on 03/13/17 09:05; Start 03/09/17 at 09:15 Sodium Chloride 2 ml 2 ml UNSCH PRN IVF FLUSH AFTER USING IV ACCESS; Start 03/08 at 17:30; Stop 03/09/17 at 05:27; Status DC Vancomycin HCl 1050 mg/Sodium Chloride 260.5 ml @ 250 mls/hr ONCE ONCE IV Last administered on 03/08/17 20:09; Start 03/08/17 at 19:45; Stop 03/08/17 at 20: 47; Status DC Vancomycin HCl/ Sodium Chloride (Vancomycin Inj/ NS 250 ml Inj) 262.5 ml @ 250 mls/hr Q12H IV Last administered on 03/13/17 04:10; Start 03/09/17 at 16:00; Stop 03/13/17 at 15:49; Status DC (Consuelo Paz MD R1) Urinary Catheter: No (Consuelo Paz MD R1) Vascular Central Line Catheter: No Line: Central Venous Catheter Side: Right Location: Subclavian (Consuelo Paz MD R1) A/P Assessment and Plan 51 year old female with extensive PMH including poorly-controlled DM secondary to noncompliance, h/o osteomyelitis s/p right 5th toe amputation, orthostatic hypotension, peripheral neuropathy, hepatitis C, and right great toe diabetic ulcer admitted on 03/08 for diabetic foot infection. Discharge Planning Anticipate D/C today on PO Zyvoxx for two weeks and close f/u with podiatry and PCP. She has home health ordered. (Consuelo Paz MD R1) Attending Attestation Patient seen and examined. Case reviewed and discussed with the resident team. Agree with plan of care as discussed with me and documented in the resident note. (Felicia Herrera MD) Problem List: (1) Cellulitis of great toe Status: Acute Plan: Patient admitted after failing outpatient treatment with Levaquin and Bactrim for right great toe infection. She has been managed as an outpatient for this ulcer which did not improve. Did not meet sepsis criteria. Foot XR negative for osteomyelitis. * Vancomycin and Zosyn administered 03/08-03/13 * Zyvoxx PO started 03/13, to continue two weeks - Podiatry and wound care consulted; recommend Maxorb dressing and dressing changes every other day - No blood cultures drawn at admission and patient already on antibiotics prior to admission - Wound culture shows MRSA, group A beta strep - PT to eval and treat, agree with wheelchair at D/C and home health (2) Chronic foot ulcer Status: Chronic Plan: Management as above (3) Hand abrasion Status: Acute Plan: Hand surgery was consulted per podiatry. Recommend continued medical management with no surgery recommended at this time. Abrasion appears to be healing (4) UTI (urinary tract infection) Status: Acute Plan: Urine growing ESBL + E. coli resistant to multiple antibiotics. Sensitive to Zosyn which she received for her wound. Consulted ID with her multiple and various bacteria, appreciate their help in deciding best abx and length of treatment (5) Frequent falls Status: Chronic Plan: Patient with history of frequent falls with multifactorial cause including orthostatic hypotension, severe diabetic neuropathy, and debility. Has walker and wheelchair at home but wheel has broken. Case management consulted for DME needs. - PT consulted to eval and treat, recommended home with home health. Wheelchair in room - Continue home midodrine for orthostatic hypotension (6) DM (diabetes mellitus), type 2, uncontrolled w/neurologic complication Status: Chronic Plan: Patient refuses insulin as an outpatient and compliance with Januvia and Bydureon is questionable. While in the hospital, will have her on Levemir 5 units BID and low-dose SSI per protocol. (7) Nutrition, metabolism, and development symptoms Status: Acute Plan: - Fluids: Tolerating PO - Electrolytes: WNL - Nutrition: Diabetic diet - DVT prophylaxis: Lovenox 40 mg SQ Q24H Chronic medical problems not acute being addressed: - HLD: Continue home statin - Neuropathy: Continue home gabapentin (Consuelo Paz MD R1) Problem Qualifiers (1) Cellulitis of great toe: Qualified Code: L03.031 - Cellulitis of great toe, right (2) Chronic foot ulcer: Qualified Code: L97.512 - Chronic foot ulcer, right, with fat layer exposed (3) Hand abrasion: Qualified Code: S60.511A - Hand abrasion, right, initial encounter (4) UTI (urinary tract infection): Qualified Code: N30.00 - Acute cystitis without hematuria (5) DM (diabetes mellitus), type 2, uncontrolled w/neurologic complication: Qualified Code: E11.42 - Uncontrolled type 2 diabetes mellitus with diabetic polyneuropathy, with long-term current use of insulin Consuelo Paz MD R1 March 14, 2017 08:15 Felicia Herrera MD March 14, 2017 13:25
--- NOTE | 2017-03-14 08:23 | HHI.DS ---
Discharge Summary Admission Date March 08, 2017 at 20:23 Discharge Date: March 14, 2017 Admitting Diagnosis toe infection, failed outpatient treatment, syncope (1) Cellulitis of great toe Diagnosis: Principal Plan: Patient admitted after failing outpatient treatment with Levaquin and Bactrim for right great toe infection. She has been managed as an outpatient for this ulcer which did not improve. Did not meet sepsis criteria. Foot XR negative for osteomyelitis. * Vancomycin and Zosyn administered 03/08-03/13 * Zyvoxx PO started 03/13, to continue two weeks - Podiatry and wound care consulted; recommend Maxorb dressing and dressing changes every other day - No blood cultures drawn at admission and patient already on antibiotics prior to admission - Wound culture shows MRSA, group A beta strep - PT to eval and treat, agree with wheelchair at D/C and home health (2) Chronic foot ulcer Diagnosis: Principal Plan: Management as above (3) Hand abrasion Diagnosis: Principal Plan: Hand surgery was consulted per podiatry. Recommend continued medical management with no surgery recommended at this time. Abrasion appears to be healing (4) UTI (urinary tract infection) Diagnosis: Principal Plan: Urine growing ESBL + E. coli resistant to multiple antibiotics. Sensitive to Zosyn which she received for her wound. Consulted ID with her multiple and various bacteria, appreciate their help in deciding best abx and length of treatment (5) Frequent falls Diagnosis: Secondary Plan: Patient with history of frequent falls with multifactorial cause including orthostatic hypotension, severe diabetic neuropathy, and debility. Has walker and wheelchair at home but wheel has broken. Case management consulted for DME needs. - PT consulted to eval and treat, recommended home with home health. Wheelchair in room - Continue home midodrine for orthostatic hypotension (6) DM (diabetes mellitus), type 2, uncontrolled w/neurologic complication Diagnosis: Secondary Plan: Patient refuses insulin as an outpatient and compliance with Januvia and Bydureon is questionable. While in the hospital, will have her on Levemir 5 units BID and low-dose SSI per protocol. (7) Nutrition, metabolism, and development symptoms Diagnosis: Secondary Plan: - Fluids: Tolerating PO - Electrolytes: WNL - Nutrition: Diabetic diet - DVT prophylaxis: Lovenox 40 mg SQ Q24H Chronic medical problems not acute being addressed: - HLD: Continue home statin - Neuropathy: Continue home gabapentin Consultants Podiatry, Hand Surgery, Infectious Disease Brief History Jaqueline Arechgia is a 51 year old female with extensive PMH including poorly- controlled DM secondary to noncompliance, h/o osteomyelitis s/p right 5th toe amputation, orthostatic hypotension, peripheral neuropathy, peripheral vascular disease, hepatitis C, right great toe infection for which she receives home health for wound care and PT, who presents to the ED with multiple complaints. She had chemo and radiation for cancer and subsequently developed severe orthostatic hypotension. She states she usually uses a wheelchair to get around however reports that one wheel of her wheelchair is not working so she has been using her walker recently. She states she was at a convenience store the afternoon before admission using her walker and fell inside the store. She is unable to provide many details regarding the fall. She states she does not think she hit her head. She denies any dizziness prior to the fall or dizziness currently. Denies history of seizures. Denies any pain currently. Denies headache, visual symptoms, no chest pain. She does state she has infrequently had falls at home in the past. She was seen by Dr. Salomon Paz at [facility] on 02/08/2017 due to frequent falls and had complaints of dizziness when going from sitting to standing at that time c/w orthostatic hypotension. The patient was instructed to increase hydration and continue her sodium tablets and she was on midodrine, diabetic education provided to improve compliance with her medications, and her prescription of gabapentin was changed from 800 mg bid to 400 mg tid if possibly contributing to her symptoms. Patient also reports a right great toe infection that she states she believes has been worsening lately. Patient was seen by Dr. Moreno at [facility] on regarding her right great toe infection and was given prescriptions for Levaquin and Bactrim and was instructed to follow up with her podiatry appointment on 03/06/2017. She states she does not think her infection had improved at any time since beginning therapy. She denies noticing any discharge from the site. She denies pain at all and states she is not able to feel due to her neuropathy. Denies history of trauma to the area. Denies fevers or chills. A wound culture of her foot from 01/11/2017 grew MRSA sensitive to vancomycin. Patient was admitted here from 01/16-01/20 for this same issue and had a wound culture growing MRSA, pseudomonas, and aerococcus. CBC/BMP: 03/13/17 0400 03/13/17 0400 Significant Findings Laboratory Tests Test 03/12/17 03/13/17 03/13/17 05:00 03:45 04:00 White Blood Count 2.7 TH/MM3 (4.0-11.0) Red Blood Count 3.70 MIL/MM3 3.68 MIL/MM3 (4.00-5.30) (4.00-5.30) Hemoglobin 10.5 GM/DL 10.4 GM/DL (11.6-15.3) (11.6-15.3) Hematocrit 31.7 % 31.8 % (35.0-46.0) (35.0-46.0) Monocytes (%) (Auto) 11.8 % (0.0-8.0) Neutrophils # (Auto) 1.4 TH/MM3 (1.8-7.7) Lymphocytes # (Auto) 0.9 TH/MM3 (1.0-4.8) Random Glucose 182 MG/DL 186 MG/DL (74-106) (74-106) Vancomycin Level Trough 37.5 MCG/ML (5.0-10.0) Creatinine 1.08 MG/DL (0.50-1.00) Estimat Glomerular Filtration 54 ML/MIN (>89) Rate PE at Discharge GENERAL: female sitting up in bed in no apparent distress. SKIN: Warm and dry. Skin exam as below. HEENT: AT/NC. Pupils equal and round. MMM. HEART: RRR no m/r/g. LUNGS: CTAB without wheezes or crackles. ABDOMEN: Soft, NT, ND. Normal bowel sounds. EXTREMITIES: Large ulceration involving essentially the entire plantar aspect of the right hallux with moderate serosanguineous exudate and underlying pink granulation tissue. No exposed muscle or bone. Absent right fifth digit. Blister on PIP of right third digit with surrounding erythema. Her finger has a small nodule about 1 cm in diameter without pus, surrounding erythema or exudate. NEURO: Awake and alert. poured wall foreman II-XII grossly intact. Sensation to LEs and UEs decreased bilaterally. PSYCH: Appropriate mood and affect. Hospital Course Patient is a 51-year-old patient of the [facility] with a history of diabetes and tongue cancer who presented after failed outpatient management of right great toe infection. She was admitted and was noted not to have met sepsis criteria at that time. Her initial workup was noted to show leukopenia and mild anemia but was otherwise unremarkable. She was noted to also have a UTI based on UA with urine culture being positive for ESBL Escherichia coli. Blood cultures which were collected on 03/09 showing MRSA and group A beta strep. However, given patient failed outpatient management was started on Vancomycin and Rocephin. Infectious disease and podiatry were consulted; ID recommended continued IV management initially, and decision to switch to by mouth Zyvox for 2 weeks as outpatient was made. Podiatry recommended specific wound care to accommodate patient's wound. Hand surgery was consulted given patient has a chronic wound on the third right finger, for which hand surgery recommended conservative management. Her PICC was used during the hospital stay and functional, without evidence of infection. She also has a history of chronic hypotension and orthostatic, for which she takes Midodrine daily. She had a wheelchair at home but this broke and new prescription was given. Physical therapy was consulted, recommended home health PT, however, patient does not desire this. Other chronic medical conditions were managed with her home medications. She was discharged in stable condition. She is to follow-up with podiatry within 1 week and with her PCP. Pt Condition on Discharge: Stable Discharge Disposition: Discharge Home Discharge Instructions DIET: Follow Instructions for: Diabetic Diet Activities you can perform: Regular-No Restrictions Follow up Referrals: Orthopedics - 2 Weeks with Nicolette Dotson MD PCP Follow-up with Janice Barker MD Podiatry - 2 Weeks with Luis Gutierrez DPM SNF/CUSTODIAL/ with [facility] New Medications: Wheelchair (Wheelchair) 1 Mis Mis 1 EA .ROUTE DIRECTED #1 Ref 0 EA Linezolid (Zyvox) 600 Mg Tab 600 MG PO Q12HR Diabetic foot infection Days 14 Ref 0 TAB Continued Medications: Albuterol 18 GM Inh (Ventolin Hfa 18 GM Inh) 90 Mcg/Act Aer 1-2 PUFF INH Q6HR PRN SHORTNESS OF BREATH #1 Ref 0 INHALER (This prescription has been renewed) Atorvastatin (Atorvastatin) 20 Mg Tab 20 MG PO HS Cholesterol Management #30 Ref 5 TAB (This prescription has been renewed) Exenatide Inj (Bydureon Inj) 2 Mg Vial 2 MG SQ Q7D Blood Sugar Management #4 Ref 5 INJECTION (This prescription has been renewed) Gabapentin (Gabapentin) 400 Mg Cap 400 MG PO TID #90 Ref 0 CAP (This prescription has been renewed) Loperamide (Imodium A-D) 2 Mg Cap 2 MG PO Q6H PRN DIARRHEA #30 Ref 5 CAP (This prescription has been renewed) Midodrine (Midodrine) 5 Mg Tab 5 MG PO TID Control Low Blood Pressure #90 Ref 5 TAB (This prescription has been renewed) Ondansetron HCl (Ondansetron HCl) 4 Mg Tab 1 TAB PO Q6HR PRN NAUSEA #30 Ref 3 TAB (This prescription has been renewed) Sitagliptin (Januvia) 100 Mg Tab 100 MG PO DAILY Blood Sugar Management #30 Ref 5 TAB (This prescription has been renewed) Sodium Chloride (Sodium Chloride) 1 Gm Tab 1 GM PO DAILY Electrolyte Replacement #30 Ref 5 TAB (This prescription has been renewed) Consuelo Paz MD R1 March 14, 2017 08:23
[2017-03-14] MEDS: SODIUM CHLORIDE 0.9% FLUSH 10 ML FLUSH IV FLUSH SCH (09:06)
[2017-03-14] MEDS: LINEZOLID 600 MG TAB PO SCH (09:07)
[2017-03-14] MEDS: MIDODRINE 5 MG TAB PO SCH (09:07)
[2017-03-14] MEDS: SODIUM CHLORIDE 1 GRAM TAB PO SCH (09:07)
[2017-03-14] MEDS: GABAPENTIN 400 MG CAP PO SCH (09:07)
[2017-03-14] MEDS: INSULIN DETEMIR 100 UNITS/ML VIAL SQ SCH (09:10)
[2017-03-14 12:00] VITALS: BP 137/67; PULSE 94; RESP 17; TEMP 99.1; O2SAT 99
[2017-03-21] MEDS ORDERED: GABA400C5 PO (10:02)
[2017-03-21] MEDS ORDERED: LACTPOW68 PO (10:11)
[2017-04-04] MEDS ORDERED: CLIN1CAP6 PO (11:34)
[2017-04-04] MEDS ORDERED: LEVO500T8 PO (11:34)
[2017-04-11] MEDS ORDERED: GLIP1TAB49 PO (11:05)
[2017-05-01] MEDS ORDERED: GABA400C5 PO (10:08)
[2017-05-01] MEDS ORDERED: MIDO5TAB PO (10:08)
[2017-05-01] MEDS ORDERED: SODI1TAB PO (10:09)
== END 2017-03-14 13:14 | disposition home or self-care (01) | DRG 638 ==
LOC: NEPD 15:27 → NEDA 20:23 → N07A 22:14
PROVIDERS: ADMIT Family Medicine; ATTEND Family Medicine
DX: E11.621 Type 2 diabetes mellitus with foot ulcer (principal); B19.10 Unspecified viral hepatitis B without hepatic coma; L97.512 Non-pressure chronic ulcer of other part of right foot with fat layer exposed; E11.42 Type 2 diabetes mellitus with diabetic polyneuropathy; I48.91 Unspecified atrial fibrillation; E11.65 Type 2 diabetes mellitus with hyperglycemia; N39.0 Urinary tract infection, site not specified; I10 Essential (primary) hypertension; I95.1 Orthostatic hypotension; E11.49 Type 2 diabetes mellitus with other diabetic neurological complication; E11.628 Type 2 diabetes mellitus with other skin complications; Z91.14 Patient's other noncompliance with medication regimen; L03.011 Cellulitis of right finger; J45.909 Unspecified asthma, uncomplicated; B19.20 Unspecified viral hepatitis C without hepatic coma; M54.9 Dorsalgia, unspecified; R29.6 Repeated falls; M19.90 Unspecified osteoarthritis, unspecified site; H26.9 Unspecified cataract; I73.9 Peripheral vascular disease, unspecified; E78.5 Hyperlipidemia, unspecified; Z82.49 Family history of ischemic heart disease and other diseases of the circulatory system; Z80.9 Family history of malignant neoplasm, unspecified; Z87.891 Personal history of nicotine dependence; Z91.19 Patient's noncompliance with other medical treatment and regimen; L03.039 Cellulitis of unspecified toe; Z85.810 Personal history of malignant neoplasm of tongue; Z90.13 Acquired absence of bilateral breasts and nipples; S60.519A Abrasion of unspecified hand, initial encounter; W19.XXXA Unspecified fall, initial encounter; Y93.9 Activity, unspecified; Y92.9 Unspecified place or not applicable; Y99.9 Unspecified external cause status; Z87.440 Personal history of urinary (tract) infections; Z87.442 Personal history of urinary calculi; Z92.3 Personal history of irradiation; Z92.21 Personal history of antineoplastic chemotherapy; Z86.14 Personal history of Methicillin resistant Staphylococcus aureus infection; Z95.810 Presence of automatic (implantable) cardiac defibrillator; Z79.4 Long term (current) use of insulin; Z86.73 Personal history of transient ischemic attack (TIA), and cerebral infarction without residual deficits; Z89.421 Acquired absence of other right toe(s); Z95.820 Peripheral vascular angioplasty status with implants and grafts
CPT/HCPCS: 70450; 71010; 73130; 73630; 80048; 80053; 80202; 81001; 82550; 82948; 83036; 83690; 83735; 84484; 85025; 85027; 85610; 85730; 86403; 87070; 87077; 87086; 87147; 87186; 87205; 93005; 93923; 96361; 96374; J0696; J1642; J1650; J1815; J2405; J2543; J3370; J7030; J7050; L3260

== ENCOUNTER 2017-04-05 09:45 | Emergency (ER) | payer MEDICARE, OTHER ==
[~2017-04-05] VITALS: Ht 172.7 cm; Wt 74.0 kg
[~2017-04-05 09:45] MED LIST changes: -BACT800T5 PO; +CLIN1CAP6 PO; +LACTPOW68 PO; -LEVA750T PO; +LEVO500T8 PO; +WHEEMIS3; +ZYVO600T PO
[2017-04-05 10:00] VITALS: BP 91/53; PULSE 79; RESP 20; TEMP 98.7; O2SAT 97
[2017-04-05] MEDS ORDERED: ADVA100A INH (10:12)
[2017-04-05 11:00] VITALS: BP 88/54; PULSE 82; RESP 11; O2SAT 97
[2017-04-05] MEDS ORDERED: SODIUM CHLORIDE 0.9% FLUSH 10 ML FLUSH IVF PRN (11:00)
[2017-04-05 11:15] VITALS: O2SAT 94
[2017-04-05] MEDS ORDERED: SODIUM CHLOR 0.9% 1000 ML INJ 1,000 ML IV ONE (11:30)
[2017-04-05 11:34] LABS: AUTOMATED NEUTROPHIL # 3.4 TH/MM3 (1.8-7.7); BASOPHIL % 0.5 % (0.0-2.0); EOSINOPHIL # 0.1 TH/MM3 (0-0.4); EOSINOPHIL % 1.4 % (0.0-4.0); HEMATOCRIT 29.4 % (35.0-46.0); HEMO FLAGS DIFF FINAL; LYMPH % 18.2 % (9.0-44.0); LYMPHOCYTE # 0.8 TH/MM3 (1.0-4.8); MEAN CELL VOLUME 86.1 FL (80.0-100.0); MEAN CORPUSCULAR HEMOGLOBIN 28.1 PG (27.0-34.0); MEAN CORPUSCULAR HGB CONC 32.6 % (32.0-36.0); MONO % 6.6 % (0.0-8.0); NEUT % 73.3 % (16.0-70.0); PLATELET COUNT 274 TH/MM3 (150-450); RED BLOOD COUNT 3.41 MIL/MM3 (4.00-5.30); RED CELL DISTRIBUTION WIDTH 13.9 % (11.6-17.2); WHITE BLOOD COUNT 4.7 TH/MM3 (4.0-11.0)
--- NOTE | 2017-04-05 11:43 | RADRPT ---
EXAM DATE/TIME: 04/05/2017 10:52 [place] COMPARISON: CHEST SINGLE AP, March 08, 2017, 17:39. INDICATIONS : Chest pain. Patient fell and has back pain. MEDICAL HISTORY : Throat CA. Cerebrovascular disease. Cardiovascular disease. Pacemaker. Hypertension. Diabetes, hepat itis C SURGICAL HISTORY : Appendectomy. Hysterectomy. Cholecystectomy. Port for throat CA. ENCOUNTER: Initial ACUITY: 2 days PAIN SCORE: 0/10 LOCATION: Bilateral chest FINDINGS: Pacemaker and [id number] are in good position. Lungs are clear. Heart and pulmonary vascularity are normal. Portion of bony skeleton visualized is unremarkable. CONCLUSION: Negative chest for acute disease. Fer Sorensen MD FACR on April 05, 2017 at 11:17 Board Certified Radiologist. This report was verified electronically.
[2017-04-05 11:51] LABS: APTT (PATIENT) 30.2 SEC (24.3-30.1); PROTHROMBIN TIME - PATIENT 11.4 SEC (9.8-11.6)
[2017-04-05 12:00] VITALS: BP 127/85; PULSE 76; RESP 14; O2SAT 99
[2017-04-05 12:01] LABS: ANION GAP 6 MEQ/L (5-15); AST (GOT) 13 U/L (15-37); BICARBONATE 30.9 MEQ/L (21.0-32.0); BLOOD UREA NITROGEN 20 MG/DL (7-18); CHLORIDE 102 MEQ/L (98-107); GLOMERULAR FILTRATION RATE 55 ML/MIN (>89); POTASSIUM 4.3 MEQ/L (3.5-5.1); SODIUM (NA) 139 MEQ/L (136-145)
[2017-04-05 12:02] LABS: ALT (GPT) 27 U/L (10-53)
[2017-04-05 12:06] LABS: ALKALINE PHOSPHATASE 101 U/L (45-117); CREATINE KINASE 26 U/L (26-192); TOTAL BILIRUBIN ADULT 0.4 MG/DL (0.2-1.0)
--- NOTE | 2017-04-05 12:34 | PD ---
HPI Chief Complaint: General Weakness Time Seen by Provider: 11:03 Travel History International Travel<30 days: No Contact w/Intl Traveler<30days: No Traveled to known affect area: No History of Present Illness HPI Patient is a 51-year-old female presents emergency Department with generalized weakness and fatigue as well as falls. Patient states she is chronically wheelchair bound. Patient states she has been falling several times over the past few weeks and has been evaluated multiple times. Denies any focalized weakness denies any chest pain or shortness of breath denies syncope. She also states she's been treated for toe infection of the right great toe but denies any fever or abdominal pain nausea vomiting or worsening of the infection. She' s been taking her antibiotics as prescribed. States currently she is starting to feel better. Patient states she fell yesterday and landed on her bottom. Denies any head neck wrist back pelvis or hip pain. PFSH Past Medical History Hx Anticoagulant Therapy: No Asthma: Yes Atrial Fibrillation: Yes Heart Rhythm Problems: Yes (Pacemaker) Cancer: Yes (oropharyngeal cancer) Cardiovascular Problems: Yes (PACER, HTN) Chemotherapy: Yes Chest Pain: Yes Cerebrovascular Accident: Yes Diabetes: Yes Patient Takes Glucophage: No Diminished Hearing: No Endocrine: Yes Gastrointestinal Disorders: Yes (esophagitis, gastritis, pancreantitis, HEP C) Genitourinary: Yes Headaches: Yes Hepatitis: Yes (HEP C) Heparin Induced Thrombocytopen: No Hypertension: Yes Implanted Vascular Access Dvce: Yes (PORT R CHEST, PACEMAKER L CHEST) Kidney Stones: Yes Musculoskeletal: Yes Neurologic: Yes Psychiatric: No Reproductive: No Respiratory: Yes (ASTHMA) Immunizations Current: Yes Migraines: Yes Radiation Therapy: Yes (last done on 11/18/16) Triglycerides - High: Yes PNEUMOCCOCAL Vaccine (Year): 2 ?: Not Menopausal: Yes : 3 Para: 2 Miscarriage: 1 Past Surgical History Abdominal Surgery: Yes (appendectomy, cholecystectomy) Appendectomy: Yes Body Medical Devices: PACEMAKER; LEG STENT; PORT PLACED Cardiac Surgery: Yes (pacemaker, lt femoral stent) Section: Yes (x1) Cholecystectomy: Yes Oral Surgery: Yes (tonsillectomy) Pacemaker: Yes (rt chest) Tonsillectomy: Yes Other Surgery: Yes (LEG STENTS left legs, PORT PLACED- RIGHT 2016, RIGHT TOE AMPUTATION) Social History Alcohol Use: No Tobacco Use: No Substance Use: No Allergies-Medications (Allergen,Severity, Reaction): Coded Allergies: Compazine (Verified Allergy, Severe, 04/05/17) ANXIETY Ultram (Verified Allergy, Intermediate, Rash, 04/05/17) MRI PRECAUTION (Verified Adverse Reaction, Severe, PACEMAKER IS NOT A BIOTRONIK OR MEDTRONIC 06/15/16 KMD, 04/05/17) PACEMAKER IS NOT A BIOTRONIK OR MEDTRONIC CONDITIONAL PACEMAKER. CALLED BOTH COMPANIES TO CONFIRM. Percocet (Verified Adverse Reaction, Severe, Nausea/Vomiting, 04/05/17) *MDRO Multi-Drug Resistant Organism (Verified Adverse Reaction, Unknown, ESBL, MRSA, 04/05/17) E. coli ESBL (urine) - 2012, 2013, 2014, 04/2016, 02/03/2017, 03/08/2017 MRSA - 2003, 03/2015, 03/09/2017 (toe wound), 10/2015, 03/28/17 (arm/back wound), (foot-08/17/16 & 01/11/17) Metformin (Verified Adverse Reaction, Unknown, DIARRHEA, 04/05/17) Morphine (Verified Adverse Reaction, Unknown, Dizziness, 04/05/17) states doesn't want-does not like the way it makes me feel Reported Meds & Prescriptions Reported Meds & Active Scripts Active Levofloxacin 500 Mg Tablet 500 Mg PO DAILY Clindamycin (Clindamycin HCl) 300 Mg Cap 300 Mg PO TID Gabapentin 400 Mg Cap 400 Mg PO TID Ondansetron HCl 4 Mg Tab 1 Tab PO Q6HR PRN Sodium Chloride 1 Gm Tab 1 Gm PO DAILY Atorvastatin (Atorvastatin Calcium) 20 Mg Tab 20 Mg PO HS Januvia (Sitagliptin Phosphate) 100 Mg Tab 100 Mg PO DAILY Zyvox (Linezolid) 600 Mg Tab 600 Mg PO Q12HR 14 Days Midodrine 5 Mg Tab 5 Mg PO TID Wheelchair (Device) 1 Mis Mis 1 Ea .ROUTE DIRECTED Reported Advair Diskus Inh (Fluticasone-Salmeterol Inh) 100-50 Mcg/Blist Aer 1 Puff INH BID Rinse mouth after use. Review of Systems Except as stated in HPI: all other systems reviewed are Neg Physical Exam Narrative GENERAL: Well-developed well-nourished no apparent distress SKIN: The right great toe on the plantar service as possibly a quarter area of avulsed skin. Does not actually appear infected at this time. Full nontender range of motion. Skin turgor is normal. No rash. HEAD: Atraumatic. Normocephalic. EYES: Pupils equal and round. No scleral icterus. No injection or drainage. ENT: No nasal bleeding or discharge. Mucous membranes pink and moist. NECK: Trachea midline. No JVD. CARDIOVASCULAR: Regular rate and rhythm. No murmur appreciated. RESPIRATORY: No accessory muscle use. Clear to auscultation. Breath sounds equal bilaterally. GASTROINTESTINAL: Abdomen soft, non-tender, nondistended. Hepatic and splenic margins not palpable. MUSCULOSKELETAL: No obvious deformities. No clubbing. No cyanosis. No edema. No midline CT or L-spine tenderness, pelvis is stable. Extremities are atraumatic. NEUROLOGICAL: Awake and alert. No obvious cranial nerve deficits. Motor grossly within normal limits. Normal speech. PSYCHIATRIC: Appropriate mood and affect; insight and judgment normal. Data Data Last Documented VS Vital Signs Date Time Temp Pulse Resp B/P Pulse Ox O2 Delivery O2 Flow Rate FiO2 04/05/17 12:00 76 14 127/85 99 Room Air 04/05/17 10:00 98.7 Orders Ckmb (Isoenzyme) Profile (04/05/17 10:48) Complete Blood Count With Diff (04/05/17 10:48) Comprehensive Metabolic Panel (04/05/17 10:48) Magnesium (Mg) (04/05/17 10:48) Prothrombin Time / Inr (Pt) (04/05/17 10:48) Act Partial Throm Time (Ptt) (04/05/17 10:48) Troponin I (04/05/17 10:48) Chest, Single Ap (04/05/17 10:48) Ecg Monitoring (04/05/17 10:48) Iv Access Insert/Monitor (04/05/17 10:48) Oximetry (04/05/17 10:48) Oxygen Administration (04/05/17 10:48) Sodium Chloride 0.9% Flush (Ns Flush) (04/05/17 11:00) Sodium Chlor 0.9% 1000 Ml Inj (Ns 1000 M (04/05/17 11:30) Electrocardiogram (04/05/17 ) Heparin Central Flush (Heparin Central F (04/05/17 13:15) Labs Laboratory Tests Test 04/05/17 11:12 White Blood Count 4.7 TH/MM3 Red Blood Count 3.41 MIL/MM3 Hemoglobin 9.6 GM/DL Hematocrit 29.4 % Mean Corpuscular Volume 86.1 FL Mean Corpuscular Hemoglobin 28.1 PG Mean Corpuscular Hemoglobin 32.6 % Concent Red Cell Distribution Width 13.9 % Platelet Count 274 TH/MM3 Mean Platelet Volume 7.7 FL Neutrophils (%) (Auto) 73.3 % Lymphocytes (%) (Auto) 18.2 % Monocytes (%) (Auto) 6.6 % Eosinophils (%) (Auto) 1.4 % Basophils (%) (Auto) 0.5 % Neutrophils # (Auto) 3.4 TH/MM3 Lymphocytes # (Auto) 0.8 TH/MM3 Monocytes # (Auto) 0.3 TH/MM3 Eosinophils # (Auto) 0.1 TH/MM3 Basophils # (Auto) 0.0 TH/MM3 CBC Comment DIFF FINAL Differential Comment Prothrombin Time 11.4 SEC Prothromb Time International 1.0 RATIO Ratio Activated Partial 30.2 SEC Thromboplast Time Sodium Level 139 MEQ/L Potassium Level 4.3 MEQ/L Chloride Level 102 MEQ/L Carbon Dioxide Level 30.9 MEQ/L Anion Gap 6 MEQ/L Blood Urea Nitrogen 20 MG/DL Creatinine 1.06 MG/DL Estimat Glomerular Filtration 55 ML/MIN Rate Random Glucose 177 MG/DL Calcium Level 9.9 MG/DL Magnesium Level 2.0 MG/DL Total Bilirubin 0.4 MG/DL Aspartate Amino Transf 13 U/L (AST/SGOT) Alanine Aminotransferase 27 U/L (ALT/SGPT) Alkaline Phosphatase 101 U/L Total Creatine Kinase 26 U/L Troponin I LESS THAN 0.02 NG/ML Total Protein 7.3 GM/DL Albumin 3.0 GM/DL [facility] Medical Decision Making Medical Screen Exam Complete: Yes Emergency Medical Condition: Yes Interpretation(s) EKG shows normal sinus rhythm left axis deviation normal R-wave progression. No concerning ST T changes. Intervals within normal limits. This borderline EKG. Comparison to 03/08/2017 shows no significant change. Differential Diagnosis Fatigue, anemia, dehydration, hypotension Narrative Course 51-year-old female presents emergency Department with generalized fatigue and weakness. Minimally hypotensive on arrival but patient states she usually runs in the 90 systolic range. She was given normal saline by bolus and her blood pressure was improved from states she felt much better. Initial laboratory workup including CBC and CMP are significant only for mild anemia with a hemoglobin of 9. Patient has no presyncopal symptoms. Patient is asking for discharge. I have stated to her that she needs to follow up with her primary care physician for further evaluation of these generalized weakness spells. Given that her troponin is negative and she has not had any sickle cell symptoms I believe she is stable for discharge this time. Discussed if she begins to feel presyncopal or syncopal she needs to call 911. Discussed fevers should also prompt return to ED. Diagnosis Primary Impression: Fall Qualified Code: W19.XXXA - Fall, initial encounter Disposition: 01 DISCHARGE HOME Condition: Stable Lyndon Washington MD April 05, 2017 12:34
--- NOTE | 2017-04-06 12:09 | EKG ---
Date Performed: 04/05/2017 Time Performed: 10:01:18 PTAGE: 51 years EKG: Sinus rhythm SEPTAL MYOCARDIAL INFARCTION INFERIOR MYOCARDIAL INFARCTION ABNORMAL ECG Compared to prior tracing n o significant change DOCTOR: Gilbert Galicia Interpretating Date/Time 04/06/2017 12:07:22
[2017-04-11] MEDS ORDERED: GLIP1TAB49 PO (11:05)
[2017-05-01] MEDS ORDERED: MIDO5TAB PO (10:08)
[2017-05-01] MEDS ORDERED: GABA400C5 PO (10:08)
[2017-05-01] MEDS ORDERED: SODI1TAB PO (10:09)
== END 2017-04-05 16:56 | disposition home or self-care (01) ==
LOC: NEPC 09:45
DX: S39.92XA Unspecified injury of lower back, initial encounter (principal); R94.31 Abnormal electrocardiogram [ECG] [EKG]; I48.91 Unspecified atrial fibrillation; I10 Essential (primary) hypertension; W19.XXXA Unspecified fall, initial encounter; Z95.0 Presence of cardiac pacemaker; Z99.3 Dependence on wheelchair
CPT/HCPCS: 71010; 80053; 82550; 83735; 84484; 85025; 85610; 85730; 93005; 96361; 96374; 99285; J1642; J7030

== ENCOUNTER 2017-05-02 10:31 | Emergency (ER) | payer MEDICARE, OTHER ==
[~2017-05-02] VITALS: Ht 172.7 cm; Wt 70.0 kg
[~2017-05-02 10:31] MED LIST changes: +ADVA100A INH; -CLIN1CAP6 PO; -EXENINJ SQ; +GLIP1TAB49 PO; -LACTPOW68 PO; -LEVO500T8 PO; -LOPE7.5C PO; -VENTAER INH; -ZYVO600T PO
[2017-05-02 10:33] VITALS: BP 136/66; PULSE 81; RESP 15; TEMP 98.2; O2SAT 98
--- NOTE | 2017-05-02 11:44 | PD ---
HPI Chief Complaint: Musculoskeletal Complaint Time Seen by Provider: 11:35 Travel History International Travel<30 days: No Contact w/Intl Traveler<30days: No Traveled to known affect area: No History of Present Illness HPI 51-year-old female with remote history of oropharyngeal cancer presents for evaluation of right knee pain. Symptoms started 2 days ago. The pain is an aching pain that is worse when walking or flexing her right knee. She does not recall any specific trauma to her right knee although she does note that she is chronically wheelchair dependent secondary to chronic lower extremity weakness and she has frequent falls. Most recently she fell last week. She was seen yesterday by her primary care physician Dr. Faulkner who ordered an outpatient x- ray of the right knee and recommended conservative therapy. The patient decided to come here for more expedient evaluation and she has not yet even the outpatient x-ray. No history of gout/pseudogout. No fevers or chills at home. No other complaints. PFSH Past Medical History Hx Anticoagulant Therapy: No Asthma: Yes Atrial Fibrillation: Yes Heart Rhythm Problems: Yes (Pacemaker) Cancer: Yes (oropharyngeal cancer) Cardiovascular Problems: Yes (PACER) Chemotherapy: Yes (AND RADIATION; HAS A PORT) Chest Pain: Yes Cerebrovascular Accident: Yes Diabetes: Yes Diminished Hearing: No Endocrine: Yes Gastrointestinal Disorders: Yes (esophagitis, gastritis, pancreantitis, HEP C) Genitourinary: Yes Headaches: Yes Hepatitis: Yes (HEP C) Heparin Induced Thrombocytopen: No Hypertension: Yes Implanted Vascular Access Dvce: Yes (PORT R CHEST, PACEMAKER L CHEST) Kidney Stones: Yes Musculoskeletal: Yes Neurologic: Yes Psychiatric: No Reproductive: No Respiratory: Yes (ASTHMA) Immunizations Current: Yes Migraines: Yes Radiation Therapy: Yes (last done on 11/18/16) Triglycerides - High: Yes PNEUMOCCOCAL Vaccine (Year): 2 Menopausal: Yes : 3 Para: 2 Miscarriage: 1 Past Surgical History Abdominal Surgery: Yes (appendectomy, cholecystectomy) Appendectomy: Yes Body Medical Devices: PACEMAKER; LEG STENT; PORT PLACED Cardiac Surgery: Yes (pacemaker, lt femoral stent) Section: Yes (x1) Cholecystectomy: Yes Oral Surgery: Yes (tonsillectomy) Pacemaker: Yes (rt chest) Tonsillectomy: Yes Other Surgery: Yes (LEG STENTS left legs, PORT PLACED- RIGHT 2016, RIGHT TOE AMPUTATION) Social History Alcohol Use: No Tobacco Use: No Substance Use: No Allergies-Medications (Allergen,Severity, Reaction): Coded Allergies: Compazine (Verified Allergy, Severe, 05/02/17) ANXIETY Ultram (Verified Allergy, Intermediate, Rash, 05/02/17) MRI PRECAUTION (Verified Adverse Reaction, Severe, PACEMAKER IS NOT A BIOTRONIK OR MEDTRONIC 06/15/16 KMD, 05/02/17) PACEMAKER IS NOT A BIOTRONIK OR MEDTRONIC CONDITIONAL PACEMAKER. CALLED BOTH COMPANIES TO CONFIRM. Percocet (Verified Adverse Reaction, Severe, Nausea/Vomiting, 05/02/17) *MDRO Multi-Drug Resistant Organism (Verified Adverse Reaction, Unknown, ESBL, MRSA, 05/02/17) E. coli ESBL (urine) - 2012, 2013, 2014, 04/2016, 02/03/2017, 03/08/2017 MRSA - 2003, 03/2015, 03/09/2017 (toe wound), 10/2015, 03/28/17, 04/27/17 (arm/back wound), (foot-08/17/16 & 01/11/17) Metformin (Verified Adverse Reaction, Unknown, DIARRHEA, 05/02/17) Morphine (Verified Adverse Reaction, Unknown, Dizziness, 05/02/17) states doesn't want-does not like the way it makes me feel Reported Meds & Prescriptions Reported Meds & Active Scripts Active Naproxen 250 Mg Tab 250 Mg PO BID 7 Days Sodium Chloride 1 Gm Tab 1 Gm PO DAILY Gabapentin 400 Mg Cap 400 Mg PO TID Midodrine 5 Mg Tab 5 Mg PO TID Glipizide ER (Glipizide) 5 Mg Callie 5 Mg PO DAILY Take with breakfast or first main meal of the day. Ondansetron HCl 4 Mg Tab 1 Tab PO Q6HR PRN Atorvastatin (Atorvastatin Calcium) 20 Mg Tab 20 Mg PO HS Januvia (Sitagliptin Phosphate) 100 Mg Tab 100 Mg PO DAILY Wheelchair (Device) 1 Mis Mis 1 Ea .ROUTE DIRECTED Reported Advair Diskus Inh (Fluticasone-Salmeterol Inh) 100-50 Mcg/Blist Aer 1 Puff INH BID Rinse mouth after use. Review of Systems Except as stated in HPI: all other systems reviewed are Neg Physical Exam Narrative GENERAL: Well-developed well-nourished female in no acute distress SKIN: Warm and dry. HEAD: Atraumatic. Normocephalic. EYES: Pupils equal and round. No scleral icterus. No injection or drainage. ENT: No nasal bleeding or discharge. Mucous membranes pink and moist. NECK: Trachea midline. No JVD. CARDIOVASCULAR: Regular rate and rhythm. No murmur appreciated. RESPIRATORY: No accessory muscle use. Clear to auscultation. Breath sounds equal bilaterally. GASTROINTESTINAL: Abdomen soft, non-tender, nondistended. MUSCULOSKELETAL: Slight knee effusion right knee. There is some tenderness to palpation to the medial aspect of the right knee joint. The patient has pain with flexion and extension of the right knee although she was able to fully flex and extend the right knee. There is no crepitus. There is no erythema to the right knee. There is no lower extremity edema. Negative Homans. 2+ dorsalis pedis pulses bilaterally. NEUROLOGICAL: Awake and alert. No obvious cranial nerve deficits. Motor grossly within normal limits. Normal speech. Data Data Last Documented VS Vital Signs Date Time Temp Pulse Resp B/P Pulse Ox O2 Delivery O2 Flow Rate FiO2 05/02/17 10:33 98.2 81 15 136/66 98 Orders Knee, Complete (4vws) (05/02/17 ) Us Leg Venous Doppler (05/02/17 11:37) MDM Medical Decision Making Medical Screen Exam Complete: Yes Emergency Medical Condition: Yes Medical Record Reviewed: Yes Interpretation(s) Right leg ultrasound CONCLUSION: No evidence of deep venous thrombosis within the right lower extremity. Right-sided popliteal cyst measuring 3.7 x 3.2 x 2.6 cm. X-ray reveals a small joint effusion. Differential Diagnosis Right knee sprain, ligamentous disruption, meniscal disruption, joint effusion, inflammatory arthritis, septic arthritis, osteoarthritis Narrative Course 51-year-old female who is chronically wheelchair-bound, chronic lower extremity weakness, frequent falls, presents for evaluation of 2 days of right knee pain. Examination reveals a mild right knee effusion. There is no evidence of a septic joint. She does have a remote history of oropharyngeal cancer as well. Given her immobilization status, plan is for an ultrasound of the right leg to rule out DVT. Plan is for x-ray of the right knee. Ultrasound reveals no evidence of DVT, there is a popliteal cyst. The x-ray reveals a small joint effusion which is clinically what she appears to have. The plan is to discharge the patient with low-dose naproxen, recommended conservative therapy and follow-up with her primary care physician next week. Discussed signs and symptoms of a septic joint that would warrant returning to the emergency room. She is stable for discharge. Diagnosis Primary Impression: Knee effusion, right Additional Impression: Popliteal cyst Qualified Code: M71.21 - Popliteal cyst, right Additional Instructions: Rest. Elevate. Ice pack several times a day 10 minutes at a time. Naproxen as prescribed. Follow up next week with primary care physician. If you develop severe redness to the skin of the right knee, fevers, return to the emergency room. Med/Other Pt SpecificInfo: Prescription(s) given Scripts Naproxen 250 Mg [id number] Mg PO BID 7 Days Ref 0 Prov:Hannah Gutierrez MD 05/02/17 Disposition: 01 DISCHARGE HOME Condition: Stable Zhen Merrill May 02, 2017 11:43
--- NOTE | 2017-05-02 12:13 | RADRPT ---
EXAM DATE/TIME: 05/02/2017 11:55 [facility] COMPARISON: KNEE RIGHT COMPLETE (4VWS), November 20, 2016, 21:00. INDICATIONS : Right knee pain. MEDICAL HISTORY : Hypertension. Diabetes.Throat CA. Cerebrovascular disease. Cardiovascular disease. Pacemaker SURGICAL HISTORY : Appendectomy. Hysterectomy.Cholecystectomy. ENCOUNTER: Initial ACUITY: 2 days PAIN SCORE: 10/10 LOCATION: Right Knee. FINDINGS: There is mild osteoarthritis of the knee again seen without fracture or dislocation. Articu artery ca lcifications are noted and a small knee joint effusion is present. CONCLUSION: Interval development of a knee joint effusion otherwise stable exam. Bernardo Malone MD on May 02, 2017 at 12:10 Board Certified Radiologist. This report was verified electronically.
--- NOTE | 2017-05-02 12:37 | RADRPT ---
EXAM DATE/TIME: 05/02/2017 12:18 [facility] COMPARISON: US LEG RIGHT VENOUS DOPPLER, June 02, 2016, 17:43. INDICATIONS : Right leg pain. MEDICAL HISTORY : Methicillin-resistant Staphylococcus aureus. Hepatitis C. Hypertension. CVA. Hyperlipidemia. A-fib . UTI. Renal calculi. Gastritis. Pancreatitis. Diabetes. Oropharyngeal cancer. SURGICAL HISTORY : Tonsillectomy. Coronary artery stent. section. Pacemaker. Appendectomy. Cholecystectomy. Ma stectomy. Chemotherapy. Radiation therapy. Right chest port placement. ENCOUNTER: Subsequent ACUITY: 1 day PAIN SCORE: 2/10 LOCATION: Right leg. TECHNIQUE: Venous ultrasound of the leg was performed from the inguinal ligament to the proximal calf. Real-patrick e, color Doppler and spectral tracing, compression and augmentation techniques were used. FINDINGS: There is normal compressibility of the deep venous system from the inguinal region to the proximal ca lf. No echogenic clot is seen in the lumen of the common femoral, femoral, popliteal, and posterior tibial veins. There is a normal response of the venous system to proximal and distal augmentation an d respiration. There is a popliteal cyst on the right measuring 3.7 x 3.2 x 3.6 cm. CONCLUSION: No evidence of deep venous thrombosis within the right lower extremity. Right-sided p opliteal cyst measuring 3.7 x 3.2 x 2.6 cm. Lyndon Montero MD on May 02, 2017 at 12:34 Board Certified Radiologist. This report was verified electronically.
[2017-05-02] MEDS ORDERED: NAPR250T PO (13:00)
[2017-05-12] MEDS ORDERED: KETO10 PO (11:29)
== END 2017-05-02 13:30 | disposition home or self-care (01) ==
LOC: NEPD 10:31
DX: M25.461 Effusion, right knee (principal); M71.21 Synovial cyst of popliteal space [Baker], right knee; W19.XXXA Unspecified fall, initial encounter; Y93.9 Activity, unspecified; Y92.9 Unspecified place or not applicable; Y99.9 Unspecified external cause status; Z91.81 History of falling; Z99.3 Dependence on wheelchair; E11.9 Type 2 diabetes mellitus without complications; I10 Essential (primary) hypertension; J45.909 Unspecified asthma, uncomplicated; Z95.0 Presence of cardiac pacemaker; Z79.84 Long term (current) use of oral hypoglycemic drugs; Z86.73 Personal history of transient ischemic attack (TIA), and cerebral infarction without residual deficits; Z85.818 Personal history of malignant neoplasm of other sites of lip, oral cavity, and pharynx; I48.91 Unspecified atrial fibrillation
CPT/HCPCS: 73564; 93971

== ENCOUNTER 2017-05-04 06:50 | Emergency (ER) | payer MEDICARE, OTHER ==
[~2017-05-04] VITALS: Ht 172.7 cm; Wt 72.0 kg
[~2017-05-04 06:50] MED LIST changes: +NAPR250T PO
[2017-05-04 07:05] VITALS: BP 120/68; PULSE 85; RESP 16; TEMP 98.6; O2SAT 99
[2017-05-04] MEDS ORDERED: SODIUM CHLOR 0.9% 1000 ML INJ 1,000 ML IV SCH (07:06)
[2017-05-04 07:10] VITALS: RESP 16; O2SAT 98
--- NOTE | 2017-05-04 07:11 | PD ---
HPI Chief Complaint: Abdominal pain Time Seen by Provider: 07:00 Travel History International Travel<30 days: No Contact w/Intl Traveler<30days: No History of Present Illness HPI 51yo F with PMH of DM, hepatitis C, throat CA presents to the ED with lower abdominal pain today. Pain is constant, nonradiating, suprapubic. Associated with nausea and NBNB vomiting. Denies any fever, chest pain, sob, dysuria, hematuria, previous similar abdominal pain. PFSH Past Medical History Hx Anticoagulant Therapy: No Asthma: Yes Atrial Fibrillation: Yes Heart Rhythm Problems: Yes (Pacemaker) Cancer: Yes (oropharyngeal cancer) Cardiovascular Problems: Yes (PACER) Chemotherapy: Yes (AND RADIATION; HAS A PORT) Chest Pain: Yes Cerebrovascular Accident: Yes Diabetes: Yes Diminished Hearing: No Endocrine: Yes Gastrointestinal Disorders: Yes (esophagitis, gastritis, pancreantitis, HEP C) Genitourinary: Yes Headaches: Yes Hepatitis: Yes (HEP C) Heparin Induced Thrombocytopen: No Hypertension: Yes Implanted Vascular Access Dvce: Yes (PORT R CHEST, PACEMAKER L CHEST) Kidney Stones: Yes Musculoskeletal: Yes Neurologic: Yes Psychiatric: No Reproductive: No Respiratory: Yes (ASTHMA) Immunizations Current: Yes Migraines: Yes Radiation Therapy: Yes (last done on 11/18/16) Triglycerides - High: Yes PNEUMOCCOCAL Vaccine (Year): 2 Menopausal: Yes : 3 Para: 2 Miscarriage: 1 Past Surgical History Abdominal Surgery: Yes (appendectomy, cholecystectomy) Appendectomy: Yes Body Medical Devices: PACEMAKER; LEG STENT; PORT PLACED Cardiac Surgery: Yes (pacemaker, lt femoral stent) Section: Yes (x1) Cholecystectomy: Yes Oral Surgery: Yes (tonsillectomy) Pacemaker: Yes (rt chest) Tonsillectomy: Yes Other Surgery: Yes (LEG STENTS left legs, PORT PLACED- RIGHT 2016, RIGHT TOE AMPUTATION) Social History Alcohol Use: No Tobacco Use: No Substance Use: No Allergies-Medications (Allergen,Severity, Reaction): Coded Allergies: Ultram (Verified Allergy, Intermediate, Rash, 05/04/17) Compazine (Verified Adverse Reaction, Severe, ANXIETY, 05/04/17) ANXIETY MRI PRECAUTION (Verified Adverse Reaction, Severe, PACEMAKER IS NOT A BIOTRONIK OR MEDTRONIC 06/15/16 KMD, 05/04/17) PACEMAKER IS NOT A BIOTRONIK OR MEDTRONIC CONDITIONAL PACEMAKER. CALLED BOTH COMPANIES TO CONFIRM. Percocet (Verified Adverse Reaction, Severe, Nausea/Vomiting, 05/04/17) *MDRO Multi-Drug Resistant Organism (Verified Adverse Reaction, Unknown, ESBL, MRSA, 05/04/17) E. coli ESBL (urine) - 2012, 2013, 2014, 04/2016, 02/03/2017, 03/08/2017 MRSA - 2003, 03/2015, 03/09/2017 (toe wound), 10/2015, 03/28/17, 04/27/17 (arm/back wound), (foot-08/17/16 & 01/11/17) Metformin (Verified Adverse Reaction, Unknown, DIARRHEA, 05/04/17) Morphine (Verified Adverse Reaction, Unknown, Dizziness, 05/04/17) states doesn't want-does not like the way it makes me feel Reported Meds & Prescriptions Reported Meds & Active Scripts Active Gabapentin 400 Mg Cap 400 Mg PO TID Midodrine 5 Mg Tab 5 Mg PO TID Glipizide ER (Glipizide) 5 Mg Callie 5 Mg PO DAILY Take with breakfast or first main meal of the day. Ondansetron HCl 4 Mg Tab 1 Tab PO Q6HR PRN Atorvastatin (Atorvastatin Calcium) 20 Mg Tab 20 Mg PO HS Januvia (Sitagliptin Phosphate) 100 Mg Tab 100 Mg PO DAILY Reported Advair Diskus Inh (Fluticasone-Salmeterol Inh) 100-50 Mcg/Blist Aer 1 Puff INH BID Rinse mouth after use. Review of Systems Except as stated in HPI: all other systems reviewed are Neg Physical Exam Narrative GENERAL: 51yo F not in distress. SKIN: Focused skin assessment warm/dry. HEAD: Atraumatic. Normocephalic. EYES: Pupils equal and round. No scleral icterus. No injection or drainage. ENT: No nasal bleeding or discharge. Mucous membranes pink and moist. NECK: Trachea midline. No JVD. CARDIOVASCULAR: Regular rate and rhythm. No murmur appreciated. RESPIRATORY: No accessory muscle use. Clear to auscultation. Breath sounds equal bilaterally. GASTROINTESTINAL: Abdomen soft, +TTP suprapubic region. No rebound tenderness or guarding. Nondistended. MUSCULOSKELETAL: No obvious deformities. No clubbing. No cyanosis. No edema. NEUROLOGICAL: Awake and alert. No obvious cranial nerve deficits. Motor grossly within normal limits. Normal speech. PSYCHIATRIC: Appropriate mood and affect; insight and judgment normal. Data Data Last Documented VS Vital Signs Date Time Temp Pulse Resp B/P Pulse Ox O2 Delivery O2 Flow Rate FiO2 05/04/17 08:54 98.1 89 15 143/78 99 Room Air Orders Complete Blood Count With Diff (05/04/17 07:06) Comprehensive Metabolic Panel (05/04/17 07:06) Lipase (05/04/17 07:06) Urinalysis - C+S If Indicated (05/04/17 07:06) Ct Abd/Pel W Iv Contrast(Rout) (05/04/17 07:06) Iv Access Insert/Monitor (05/04/17 07:06) Ecg Monitoring (05/04/17 07:06) Oximetry (05/04/17 07:06) Ondansetron Inj (Zofran Inj) (05/04/17 07:15) Sodium Chlor 0.9% 1000 Ml Inj (Ns 1000 M (05/04/17 07:06) Sodium Chloride 0.9% Flush (Ns Flush) (05/04/17 07:15) Electrocardiogram (05/04/17 07:06) Ed Urine Pregnancytest Poc (05/04/17 07:06) Ketorolac Inj (Toradol Inj) (05/04/17 07:15) Iohexol 350 Inj (Omnipaque 350 Inj) (05/04/17 08:57) Labs Laboratory Tests Test 05/04/17 07:10 White Blood Count 4.2 TH/MM3 Red Blood Count 3.23 MIL/MM3 Hemoglobin 9.3 GM/DL Hematocrit 28.1 % Mean Corpuscular Volume 86.9 FL Mean Corpuscular Hemoglobin 28.8 PG Mean Corpuscular Hemoglobin 33.1 % Concent Red Cell Distribution Width 13.8 % Platelet Count 206 TH/MM3 Mean Platelet Volume 7.5 FL Neutrophils (%) (Auto) 70.2 % Lymphocytes (%) (Auto) 19.1 % Monocytes (%) (Auto) 8.1 % Eosinophils (%) (Auto) 1.9 % Basophils (%) (Auto) 0.7 % Neutrophils # (Auto) 2.9 TH/MM3 Lymphocytes # (Auto) 0.8 TH/MM3 Monocytes # (Auto) 0.3 TH/MM3 Eosinophils # (Auto) 0.1 TH/MM3 Basophils # (Auto) 0.0 TH/MM3 CBC Comment DIFF FINAL Differential Comment Sodium Level 142 MEQ/L Potassium Level 3.8 MEQ/L Chloride Level 104 MEQ/L Carbon Dioxide Level 30.8 MEQ/L Anion Gap 7 MEQ/L Blood Urea Nitrogen 13 MG/DL Creatinine 0.83 MG/DL Estimat Glomerular Filtration 73 ML/MIN Rate Random Glucose 183 MG/DL Calcium Level 9.5 MG/DL Total Bilirubin 0.4 MG/DL Aspartate Amino Transf 7 U/L (AST/SGOT) Alanine Aminotransferase 14 U/L (ALT/SGPT) Alkaline Phosphatase 89 U/L Total Protein 7.1 GM/DL Albumin 3.2 GM/DL Lipase 132 U/L [facility] Medical Decision Making Medical Screen Exam Complete: Yes Emergency Medical Condition: Yes Interpretation(s) EKG: NSR 79bpm. LAD. Q waves V2. Unchanged from prior. No ST segment elevation or depression. Differential Diagnosis UTI vs. colitis vs. pancreatitis Narrative Course 51yo F with lower abdominal pain today. Pt is well appearing. Abdomen is soft and only very mildly tender in lower abdomen. Labs reviewed, no leukocytosis. H/H low at 9.3/28.1 but at baseline. CMP unremarkable. Lipase normal. CTa/p showed atherosclerotic vascular disease. No evidence of acute process. Pt given toradol which helped with pain. Given zofran for nausea. Pt denies any more pain and tolerating PO. Pt has not given urine yet for urinalysis and states she does not want to wait and has no urinary symptoms. Understands that she can still have a urine infection since we did not check it. Creatinine is normal and pt has no signs of sepsis. Return precautions given. Diagnosis Primary Impression: Abdominal pain Qualified Code: R10.30 - Lower abdominal pain Patient Instructions: General Instructions Departure Forms: Tests/Procedures Additional Instructions: Please follow up with your PMD in 3-7 days. Return to the ED if symptoms worsen. Med/Other Pt SpecificInfo: Prescription(s) given Scripts Acetaminophen (Tylenol)325 Mg Ppt315 Mg PO Q6H PRN (PAIN SCALE 1 TO 4) #20 TAB Ref 0 Prov:Sobeida Brown DO 05/04/17 Disposition: 01 DISCHARGE HOME Condition: Stable Sobeiad Brown DO May 04, 2017 07:11
[2017-05-04] MEDS ORDERED: ONDANSETRON HCL 4 MG/2 ML VIAL IVP ONE (07:15)
[2017-05-04] MEDS ORDERED: KETOROLAC TROMETHAMINE 30 MG/ML (IVP) VIAL IV PUSH ONE (07:15)
[2017-05-04] MEDS: SODIUM CHLORIDE 0.9% FLUSH 10 ML FLUSH IV FLUSH PRN ×2 (07:21→08:54)
[2017-05-04 07:49] LABS: AUTOMATED NEUTROPHIL # 2.9 TH/MM3 (1.8-7.7); BASOPHIL % 0.7 % (0.0-2.0); EOSINOPHIL # 0.1 TH/MM3 (0-0.4); EOSINOPHIL % 1.9 % (0.0-4.0); HEMATOCRIT 28.1 % (35.0-46.0); HEMO FLAGS DIFF FINAL; LYMPH % 19.1 % (9.0-44.0); LYMPHOCYTE # 0.8 TH/MM3 (1.0-4.8); MEAN CELL VOLUME 86.9 FL (80.0-100.0); MEAN CORPUSCULAR HEMOGLOBIN 28.8 PG (27.0-34.0); MEAN CORPUSCULAR HGB CONC 33.1 % (32.0-36.0); MONO % 8.1 % (0.0-8.0); NEUT % 70.2 % (16.0-70.0); PLATELET COUNT 206 TH/MM3 (150-450); RED BLOOD COUNT 3.23 MIL/MM3 (4.00-5.30); RED CELL DISTRIBUTION WIDTH 13.8 % (11.6-17.2); WHITE BLOOD COUNT 4.2 TH/MM3 (4.0-11.0)
[2017-05-04 08:06] LABS: ANION GAP 7 MEQ/L (5-15); AST (GOT) 7 U/L (15-37); BICARBONATE 30.8 MEQ/L (21.0-32.0); BLOOD UREA NITROGEN 13 MG/DL (7-18); CHLORIDE 104 MEQ/L (98-107); GLOMERULAR FILTRATION RATE 73 ML/MIN (>89); POTASSIUM 3.8 MEQ/L (3.5-5.1); SODIUM (NA) 142 MEQ/L (136-145)
[2017-05-04 08:10] LABS: ALKALINE PHOSPHATASE 89 U/L (45-117); ALT (GPT) 14 U/L (10-53); TOTAL BILIRUBIN ADULT 0.4 MG/DL (0.2-1.0)
[2017-05-04] MEDS ORDERED: IOHEXOL 350 MG/ML 10 ML VIAL (for RAD DIAG) IV ONE ×2 (08:48→08:57)
[2017-05-04 08:54] VITALS: BP 143/78; PULSE 89; RESP 15; TEMP 98.1; O2SAT 99
--- NOTE | 2017-05-04 09:26 | RADRPT ---
EXAM DATE/TIME: 05/04/2017 08:34 [facility] COMPARISON: CT ABDOMEN & PELVIS W CONTRAST, September 28, 2016, 18:52. INDICATIONS : Lower abdomen pain, nausea and vomiting for one day. IV CONTRAST: 76 cc Omnipaque 350 (iohexol) IV ORAL CONTRAST: No oral contrast ingested. RADIATION DOSE: 8.86 CTDIvol (mGy) MEDICAL HISTORY : Cardiovascular disease. Hepatitis C. Hypertension.throat cancer, pvd, renal stones, diabetes, asthma. SURGICAL HISTORY : Pacemaker. Appendectomy.Cholecystectomy.. ENCOUNTER: Initial ACUITY: 1 day PAIN SCALE: 4/10 LOCATION: abdomen TECHNIQUE: Volumetric scanning of the abdomen and pelvis was performed. Using automated exposure control and ad justment of the mA and/or kV according to patient size, radiation dose was kept as low as reasonably achievable to obtain optimal diagnostic quality images. DICOM format image data is available electro nically for review and comparison. FINDINGS: LOWER LUNGS: The visualized lower lungs are clear. LIVER: Homogeneous density without lesion. There is no dilation of the biliary tree. Post cholecystectomy c lips are noted. SPLEEN: Normal size without lesion. PANCREAS: Within normal limits. KIDNEYS: Normal in size and shape. There is no mass, stone or hydronephrosis. ADRENAL GLANDS: Within normal limits. VASCULAR: Calcific atherosclerotic vascular disease advanced for age is present throughout the splenic and supe rior mesenteric arteries. BOWEL/MESENTERY: The stomach, small bowel, and colon demonstrate no acute abnormality. There is no free intraperitone al air or fluid. ABDOMINAL WALL: Within normal limits. RETROPERITONEUM: There is no lymphadenopathy. BLADDER: No wall thickening or mass. REPRODUCTIVE: Within normal limits. INGUINAL: There is no lymphadenopathy or hernia. MUSCULOSKELETAL: Within normal limits for patient age. CONCLUSION: Significant calcific atherosclerotic vascular disease involving the splenic and superior mesenteric a rteries. No findings to suggest significant arterial occlusive disease. Status post cholecystectomy. No evidence of acute process. Uriel Boykin MD on May 04, 2017 at 9:18 Board Certified Radiologist. This report was verified electronically.
[2017-05-04] MEDS ORDERED: TYLE325T PO (10:09)
[2017-05-04 10:25] VITALS: BP 135/78; TEMP 98
--- NOTE | 2017-05-04 15:39 | EKG ---
Date Performed: 05/04/2017 Time Performed: 07:27:49 PTAGE: 51 years EKG: Sinus rhythm Low VOltsge in Limb Leads Non specific ST changes PREVIOUS TRACING : 04/05/2017 10.01 DOCTOR: Addi Hwang Interpretating Date/Time 05/04/2017 15:37:30
[2017-05-05] MEDS ORDERED: DESIOIN3 TOPICAL (11:20)
[2017-05-12] MEDS ORDERED: KETO10 PO (11:29)
== END 2017-05-04 10:36 | disposition home or self-care (01) ==
LOC: NEPC 06:50
DX: R10.30 Lower abdominal pain, unspecified (principal); E11.9 Type 2 diabetes mellitus without complications; J45.909 Unspecified asthma, uncomplicated; I48.91 Unspecified atrial fibrillation; I10 Essential (primary) hypertension; K85.90 Acute pancreatitis without necrosis or infection, unspecified; B19.20 Unspecified viral hepatitis C without hepatic coma; K29.70 Gastritis, unspecified, without bleeding; K20.9 Esophagitis, unspecified
CPT/HCPCS: 74177; 80053; 83690; 85025; 93005; 96361; 96374; 96375; 99285; J1642; J1885; J2405; J7030; Q9967

== ENCOUNTER 2017-05-05 10:50 | Emergency (ER) | payer MEDICARE, OTHER ==
[~2017-05-05] VITALS: Ht 172.7 cm; Wt 80.0 kg
[~2017-05-05 10:50] MED LIST changes: +TYLE325T PO
[2017-05-05 11:03] VITALS: BP 145/72; PULSE 87; RESP 16; TEMP 98.4; O2SAT 98
--- NOTE | 2017-05-05 11:06 | PD ---
HPI Chief Complaint: back wound Time Seen by Provider: 10:57 Travel History International Travel<30 days: No Contact w/Intl Traveler<30days: No History of Present Illness HPI 51-year-old female arrives by EMS. She is worried she might have a sacral decubitus ulcer due to pain in the region of the sacrum. Location skin and sacral spine. No fever. No trauma. Duration less than 1 day. PFSH Past Medical History Hx Anticoagulant Therapy: No Asthma: Yes Atrial Fibrillation: Yes Heart Rhythm Problems: Yes (Pacemaker) Cancer: Yes (oropharyngeal cancer) Cardiovascular Problems: Yes Chemotherapy: Yes (AND RADIATION; HAS A PORT) Chest Pain: Yes Cerebrovascular Accident: Yes Diabetes: Yes Diminished Hearing: No Endocrine: Yes Gastrointestinal Disorders: Yes (esophagitis, gastritis, pancreantitis, HEP C) Genitourinary: Yes Headaches: Yes Hepatitis: Yes (HEP C) Heparin Induced Thrombocytopen: No Hypertension: Yes Implanted Vascular Access Dvce: Yes (PORT R CHEST, PACEMAKER L CHEST) Kidney Stones: Yes Musculoskeletal: Yes Neurologic: Yes Psychiatric: No Reproductive: No Respiratory: Yes (ASTHMA) Immunizations Current: Yes Migraines: Yes Radiation Therapy: Yes (last done on 11/18/16) Triglycerides - High: Yes PNEUMOCCOCAL Vaccine (Year): 2 Menopausal: Yes : 3 Para: 2 Miscarriage: 1 Past Surgical History Abdominal Surgery: Yes (appendectomy, cholecystectomy) Appendectomy: Yes Body Medical Devices: PACEMAKER; LEG STENT; PORT PLACED Cardiac Surgery: Yes (pacemaker, lt femoral stent) Section: Yes (x1) Cholecystectomy: Yes Oral Surgery: Yes (tonsillectomy) Pacemaker: Yes (rt chest) Tonsillectomy: Yes Other Surgery: Yes (LEG STENTS left legs, PORT PLACED- RIGHT 2016, RIGHT TOE AMPUTATION) Social History Alcohol Use: No Tobacco Use: No Substance Use: No (PT DENIES ) Allergies-Medications (Allergen,Severity, Reaction): Coded Allergies: Ultram (Verified Allergy, Intermediate, Rash, 05/05/17) Compazine (Verified Adverse Reaction, Severe, ANXIETY, 05/05/17) ANXIETY MRI PRECAUTION (Verified Adverse Reaction, Severe, PACEMAKER IS NOT A BIOTRONIK OR MEDTRONIC 06/15/16 KMD, 05/05/17) PACEMAKER IS NOT A BIOTRONIK OR MEDTRONIC CONDITIONAL PACEMAKER. CALLED BOTH COMPANIES TO CONFIRM. Percocet (Verified Adverse Reaction, Severe, Nausea/Vomiting, 05/05/17) *MDRO Multi-Drug Resistant Organism (Verified Adverse Reaction, Unknown, ESBL, MRSA, 05/05/17) E. coli ESBL (urine) - 2012, 2013, 2014, 04/2016, 02/03/2017, 03/08/2017 MRSA - 2003, 03/2015, 03/09/2017 (toe wound), 10/2015, 03/28/17, 04/27/17 (arm/back wound), (foot-08/17/16 & 01/11/17) Metformin (Verified Adverse Reaction, Unknown, DIARRHEA, 05/05/17) Morphine (Verified Adverse Reaction, Unknown, Dizziness, 05/05/17) states doesn't want-does not like the way it makes me feel Reported Meds & Prescriptions Reported Meds & Active Scripts Active Desitin Topical (Diaper Rash Products) 1 Application Oint 1 Applic TOPICAL DIRECTED PRN 7 Days Gabapentin 400 Mg Cap 400 Mg PO TID Midodrine 5 Mg Tab 5 Mg PO TID Glipizide ER (Glipizide) 5 Mg Callie 5 Mg PO DAILY Take with breakfast or first main meal of the day. Ondansetron HCl 4 Mg Tab 1 Tab PO Q6HR PRN Atorvastatin (Atorvastatin Calcium) 20 Mg Tab 20 Mg PO HS Januvia (Sitagliptin Phosphate) 100 Mg Tab 100 Mg PO DAILY Reported Advair Diskus Inh (Fluticasone-Salmeterol Inh) 100-50 Mcg/Blist Aer 1 Puff INH BID Rinse mouth after use. Review of Systems Except as stated in HPI: all other systems reviewed are Neg Neurologic: Positive: Other (chronic lower extremity weakness) Physical Exam Narrative GENERAL: 51-year-old female well-nourished well-developed arrives with her wheelchair and some personal belongings stool is noted about her upper and lower extremities. SKIN: Focused skin assessment warm/dry. There is minimal erythema about the rectum in an approximate 10cm diameter area. No disruption of skin or breakdown of skin. HEAD: Atraumatic. Normocephalic. EYES: Pupils equal and round. No scleral icterus. No injection or drainage. ENT: No nasal bleeding or discharge. Mucous membranes pink and moist. NECK: Trachea midline. No JVD. CARDIOVASCULAR: Regular rate and rhythm. No murmur appreciated. RESPIRATORY: No accessory muscle use. Clear to auscultation. Breath sounds equal bilaterally. GASTROINTESTINAL: Abdomen soft, non-tender, nondistended. Hepatic and splenic margins not palpable. MUSCULOSKELETAL: No obvious deformities. No clubbing. No cyanosis. No edema. NEUROLOGICAL: Awake and alert. No obvious cranial nerve deficits. Motor grossly within normal limits. Normal speech. PSYCHIATRIC: Appropriate mood and affect; insight and judgment normal. Data Data Last Documented VS Vital Signs Date Time Temp Pulse Resp B/P Pulse Ox O2 Delivery O2 Flow Rate FiO2 05/05/17 12:43 77 16 132/72 99 05/05/17 11:03 98.4 VS reviewed [facility] Medical Decision Making Medical Screen Exam Complete: Yes Emergency Medical Condition: Yes Medical Record Reviewed: Yes Differential Diagnosis Cellulitis, dermatitis, fungal dermatitis, abscess, pressure ulcer, decubitus ulcer Narrative Course Patient has received a Desitin paste prescription. She is ready for discharge. Diagnosis Primary Impression: Rash and nonspecific skin eruption Referrals: Primary Care Physician 2 days Additional Instructions: You have a choice when it comes to health care, and we are glad that you chose [facility]. Hopefully, we have met your expectations on today's visit. You are welcome to return to [facility] at any time, as we are committed to meeting the health care needs of our community. Med/Other Pt SpecificInfo: Prescription(s) given Scripts Diaper Rash Products (Desitin Topical)1 Application Oint1 Applic TOPICAL DIRECTED PRN (DIAPER RASH) 7 Days Ref 0 Prov:Te Galicia MD 05/05/17 Disposition: 01 DISCHARGE HOME Condition: Stable Te Galicia MD May 05, 2017 11:05
[2017-05-05] MEDS ORDERED: DESIOIN3 TOPICAL (11:20)
[2017-05-05 12:43] VITALS: BP 132/72
[2017-05-12] MEDS ORDERED: KETO10 PO (11:29)
== END 2017-05-05 12:44 | disposition home or self-care (01) ==
LOC: NEPC 10:50
DX: R21 Rash and other nonspecific skin eruption (principal); J45.909 Unspecified asthma, uncomplicated; E11.9 Type 2 diabetes mellitus without complications; I10 Essential (primary) hypertension; B19.20 Unspecified viral hepatitis C without hepatic coma; I48.91 Unspecified atrial fibrillation; Z86.73 Personal history of transient ischemic attack (TIA), and cerebral infarction without residual deficits; Z79.899 Other long term (current) drug therapy
CPT/HCPCS: 99283

== ENCOUNTER 2017-05-08 12:49 | Emergency (ER) | payer MEDICARE, OTHER ==
[~2017-05-08] VITALS: Ht 172.7 cm; Wt 70.0 kg
[~2017-05-08 12:49] MED LIST changes: +DESIOIN3 TOPICAL; -NAPR250T PO; -SODI1TAB PO; -TYLE325T PO; -WHEEMIS3
[2017-05-08 12:52] VITALS: BP 97/58; PULSE 99; RESP 14; TEMP 99.5; O2SAT 95
--- NOTE | 2017-05-08 14:29 | PD ---
HPI Chief Complaint: Abdominal Pain Time Seen by Provider: 13:00 Travel History International Travel<30 days: No Contact w/Intl Traveler<30days: No Traveled to known affect area: No History of Present Illness HPI Patient is a 51-year-old female presenting to emergency for evaluation of abdominal pain. Patient states that her pain started today, she reports the pain is consistent with pain that she's had the past. She denies any nausea, vomiting, fever, dysuria, back pain, shortness of breath or chest pain. She reports normal bowel movements. PFSH Past Medical History Hx Anticoagulant Therapy: No Asthma: Yes Atrial Fibrillation: Yes Cancer: Yes (throat) Chemotherapy: Yes (AND RADIATION; HAS A PORT) Chest Pain: Yes Cerebrovascular Accident: Yes Diabetes: Yes Patient Takes Glucophage: No Diminished Hearing: No Gastrointestinal Disorders: Yes (esophagitis, gastritis, pancreantitis, HEP C) Headaches: Yes Hepatitis: Yes (HEP C) Heparin Induced Thrombocytopen: No Hypertension: Yes Implanted Vascular Access Dvce: Yes (PORT R CHEST, PACEMAKER L CHEST) Kidney Stones: Yes Neurologic: Yes (diabetic peripheral neuropathy) Psychiatric: No Reproductive: No Integumentary: Yes (ulcer under rt great toe) Immunizations Current: Yes Migraines: Yes Radiation Therapy: Yes (last done on 11/18/16) Triglycerides - High: Yes Tetanus Vaccination: < 5 Years Influenza Vaccination: No PNEUMOCCOCAL Vaccine (Year): 2 ?: Not Menopausal: Yes : 3 Para: 2 Miscarriage: 1 Past Surgical History Appendectomy: Yes Body Medical Devices: PACEMAKER; LEG STENT; PORT PLACED Cardiac Surgery: Yes (pacemaker, lt femoral stent) Section: Yes (x1) Cholecystectomy: Yes Pacemaker: Yes (rt chest) Tonsillectomy: Yes Social History Alcohol Use: No Tobacco Use: Yes (quit Nov 2016) Substance Use: No Allergies-Medications (Allergen,Severity, Reaction): Coded Allergies: Ultram (Verified Allergy, Intermediate, Rash, 05/05/17) Compazine (Verified Adverse Reaction, Severe, ANXIETY, 05/05/17) ANXIETY MRI PRECAUTION (Verified Adverse Reaction, Severe, PACEMAKER IS NOT A BIOTRONIK OR MEDTRONIC 06/15/16 KMD, 05/05/17) PACEMAKER IS NOT A BIOTRONIK OR MEDTRONIC CONDITIONAL PACEMAKER. CALLED BOTH COMPANIES TO CONFIRM. Percocet (Verified Adverse Reaction, Severe, Nausea/Vomiting, 05/05/17) *MDRO Multi-Drug Resistant Organism (Verified Adverse Reaction, Unknown, ESBL, MRSA, 05/05/17) E. coli ESBL (urine) - 2012, 2013, 2014, 04/2016, 02/03/2017, 03/08/2017 MRSA - 2003, 03/2015, 03/09/2017 (toe wound), 10/2015, 03/28/17, 04/27/17 (arm/back wound), (foot-08/17/16 & 01/11/17) Metformin (Verified Adverse Reaction, Unknown, DIARRHEA, 05/05/17) Morphine (Verified Adverse Reaction, Unknown, Dizziness, 05/05/17) states doesn't want-does not like the way it makes me feel Reported Meds & Prescriptions Reported Meds & Active Scripts Active Keflex (Cephalexin) 500 Mg Cap 500 Mg PO Q12H 10 Days Desitin Topical (Diaper Rash Products) 1 Application Oint 1 Applic TOPICAL DIRECTED PRN 7 Days Gabapentin 400 Mg Cap 400 Mg PO TID Midodrine 5 Mg Tab 5 Mg PO TID Glipizide ER (Glipizide) 5 Mg Callie 5 Mg PO DAILY Take with breakfast or first main meal of the day. Ondansetron HCl 4 Mg Tab 1 Tab PO Q6HR PRN Atorvastatin (Atorvastatin Calcium) 20 Mg Tab 20 Mg PO HS Januvia (Sitagliptin Phosphate) 100 Mg Tab 100 Mg PO DAILY Reported Advair Diskus Inh (Fluticasone-Salmeterol Inh) 100-50 Mcg/Blist Aer 1 Puff INH BID Rinse mouth after use. Review of Systems Except as stated in HPI: all other systems reviewed are Neg Gastrointestinal: Positive: Abdominal Pain Physical Exam Narrative GENERAL: Well-developed, well-nourished female, appears older than stated age. Resting comfortably in no acute distress. SKIN: Focused skin assessment warm/dry. HEAD: Atraumatic. Normocephalic. EYES: Pupils equal and round. No scleral icterus. No injection or drainage. ENT: No nasal bleeding or discharge. Mucous membranes pink and moist. NECK: Trachea midline. No JVD. CARDIOVASCULAR: Regular rate and rhythm. No murmur appreciated. RESPIRATORY: No accessory muscle use. Clear to auscultation. Breath sounds equal bilaterally. GASTROINTESTINAL: Abdomen soft, non-tender, nondistended. Hepatic and splenic margins not palpable. Active bowel sounds, no rebound, no guarding. MUSCULOSKELETAL: No obvious deformities. No clubbing. No cyanosis. No edema. NEUROLOGICAL: Awake and alert. No obvious cranial nerve deficits. Motor grossly within normal limits. Normal speech. PSYCHIATRIC: Appropriate mood and affect; insight and judgment normal. Data Data Last Documented VS Vital Signs Date Time Temp Pulse Resp B/P Pulse Ox O2 Delivery O2 Flow Rate FiO2 05/08/17 12:52 99.5 99 14 97/58 95 Orders Urinalysis - C+S If Indicated (05/08/17 14:22) Complete Blood Count With Diff (05/08/17 14:43) Comprehensive Metabolic Panel (05/08/17 14:43) Lactic Acid (05/08/17 14:43) Ceftriaxone Inj (Rocephin Inj) (05/08/17 15:15) Urine Culture (05/08/17 14:20) Potassium Chloride (Kcl) (05/08/17 16:30) Labs Laboratory Tests Test 05/08/17 05/08/17 14:20 15:15 Urine Color YELLOW Urine Turbidity HAZY Urine pH 6.0 Urine Specific [place] 1.019 Urine Protein TRACE mg/dL Urine Glucose (UA) NEG mg/dL Urine Ketones TRACE mg/dL Urine Occult Blood NEG Urine Nitrite POS Urine Bilirubin NEG Urine Urobilinogen 2.0 MG/DL Urine Leukocyte Esterase MOD Urine RBC 2 /hpf Urine WBC 22 /hpf Urine Squamous Epithelial 14 /hpf Cells Urine Bacteria MANY /hpf Urine Hyaline Casts 4 /lpf Urine Mucus FEW /lpf Microscopic Urinalysis Comment CULTURE INDICATED White Blood Count 4.1 TH/MM3 Red Blood Count 3.70 MIL/MM3 Hemoglobin 10.5 GM/DL Hematocrit 32.1 % Mean Corpuscular Volume 86.6 FL Mean Corpuscular Hemoglobin 28.4 PG Mean Corpuscular Hemoglobin 32.8 % Concent Red Cell Distribution Width 13.9 % Platelet Count 237 TH/MM3 Mean Platelet Volume 7.6 FL Neutrophils (%) (Auto) 64.3 % Lymphocytes (%) (Auto) 22.8 % Monocytes (%) (Auto) 10.4 % Eosinophils (%) (Auto) 1.8 % Basophils (%) (Auto) 0.7 % Neutrophils # (Auto) 2.6 TH/MM3 Lymphocytes # (Auto) 0.9 TH/MM3 Monocytes # (Auto) 0.4 TH/MM3 Eosinophils # (Auto) 0.1 TH/MM3 Basophils # (Auto) 0.0 TH/MM3 CBC Comment DIFF FINAL Differential Comment Sodium Level 142 MEQ/L Potassium Level 3.4 MEQ/L Chloride Level 105 MEQ/L Carbon Dioxide Level 30.6 MEQ/L Anion Gap 6 MEQ/L Blood Urea Nitrogen 10 MG/DL Creatinine 0.70 MG/DL Estimat Glomerular Filtration 89 ML/MIN Rate Random Glucose 119 MG/DL Lactic Acid Level 0.8 mmol/L Calcium Level 9.7 MG/DL Total Bilirubin 0.5 MG/DL Aspartate Amino Transf 9 U/L (AST/SGOT) Alanine Aminotransferase 17 U/L (ALT/SGPT) Alkaline Phosphatase 87 U/L Total Protein 7.4 GM/DL Albumin 3.2 GM/DL MDM Medical Decision Making Medical Screen Exam Complete: Yes Emergency Medical Condition: Yes Medical Record Reviewed: Yes Interpretation(s) Vital Signs Date Time Temp Pulse Resp B/P Pulse Ox O2 Delivery O2 Flow Rate FiO2 05/08/17 12:52 99.5 99 14 97/58 95 Laboratory Tests Test 05/08/17 05/08/17 14:20 15:15 Urine Color YELLOW Urine Turbidity HAZY Urine pH 6.0 Urine Specific [place] 1.019 Urine Protein TRACE mg/dL Urine Glucose (UA) NEG mg/dL Urine Ketones TRACE mg/dL Urine Occult Blood NEG Urine Nitrite POS Urine Bilirubin NEG Urine Urobilinogen 2.0 MG/DL Urine Leukocyte Esterase MOD Urine RBC 2 /hpf Urine WBC 22 /hpf Urine Squamous Epithelial 14 /hpf Cells Urine Bacteria MANY /hpf Urine Hyaline Casts 4 /lpf Urine Mucus FEW /lpf Microscopic Urinalysis Comment CULTURE INDICATED White Blood Count 4.1 TH/MM3 Red Blood Count 3.70 MIL/MM3 Hemoglobin 10.5 GM/DL Hematocrit 32.1 % Mean Corpuscular Volume 86.6 FL Mean Corpuscular Hemoglobin 28.4 PG Mean Corpuscular Hemoglobin 32.8 % Concent Red Cell Distribution Width 13.9 % Platelet Count 237 TH/MM3 Mean Platelet Volume 7.6 FL Neutrophils (%) (Auto) 64.3 % Lymphocytes (%) (Auto) 22.8 % Monocytes (%) (Auto) 10.4 % Eosinophils (%) (Auto) 1.8 % Basophils (%) (Auto) 0.7 % Neutrophils # (Auto) 2.6 TH/MM3 Lymphocytes # (Auto) 0.9 TH/MM3 Monocytes # (Auto) 0.4 TH/MM3 Eosinophils # (Auto) 0.1 TH/MM3 Basophils # (Auto) 0.0 TH/MM3 CBC Comment DIFF FINAL Differential Comment Sodium Level 142 MEQ/L Potassium Level 3.4 MEQ/L Chloride Level 105 MEQ/L Carbon Dioxide Level 30.6 MEQ/L Anion Gap 6 MEQ/L Blood Urea Nitrogen 10 MG/DL Creatinine 0.70 MG/DL Estimat Glomerular Filtration 89 ML/MIN Rate Random Glucose 119 MG/DL Lactic Acid Level 0.8 mmol/L Calcium Level 9.7 MG/DL Total Bilirubin 0.5 MG/DL Aspartate Amino Transf 9 U/L (AST/SGOT) Alanine Aminotransferase 17 U/L (ALT/SGPT) Alkaline Phosphatase 87 U/L Total Protein 7.4 GM/DL Albumin 3.2 GM/DL Vital Signs Date Time Temp Pulse Resp B/P Pulse Ox O2 Delivery O2 Flow Rate FiO2 05/08/17 12:52 99.5 99 14 97/58 95 Differential Diagnosis UTI versus colitis versus diverticulitis versus obstruction versus muscle strain versus other Narrative Course Patient is 51-year-old female presenting to emergency department evaluation of vague abdominal pain. Patient was seen and evaluated 3 days ago, labs and a CT scan of the abdomen and pelvis was performed, patient's workup was negative. Urinalysis was not performed at that time, UA ordered and pending. Patient had a low-grade temp prompting evaluation of CBC, metabolic panel, lactic acid ordered. Abdominal examination benign. Urinalysis shows nitrate positive urinary tract infection. Patient was given 2 g Rocephin IV in the emergency department. Potassium was 3.4, oral supplementation ordered. CBC shows no acute abnormality. Patient will be discharged home on Keflex, she is encouraged to increase her fluid intake, complete full course of antibiotics as prescribed, she is encouraged to follow-up with her primary doctor. She is encouraged to return to emergency department for any new or worsening symptoms. Diagnosis Primary Impression: UTI (urinary tract infection) Qualified Code: N39.0 - Urinary tract infection without hematuria, site unspecified Referrals: Primary Care Physician 2 days Patient Instructions: General Instructions, Urinary Tract Infection in Women ( ED) Additional Instructions: Complete full course of antibiotics as prescribed Increase fluid intake Follow-up with your primary doctor Return to emergency department for any new or worsening symptoms Med/Other Pt SpecificInfo: Prescription(s) given Scripts Cephalexin (Keflex)500 Mg [id number] Mg PO Q12H 10 Days Ref 0 Prov:Rochelle Wang 05/08/17 Disposition: 01 DISCHARGE HOME Condition: Stable Rochelle Wang May 08, 2017 14:29
[2017-05-08 15:02] LABS: BACTERIA, URINE MANY /hpf; BLOOD, URINE NEG (NEG); COMMENT (UR) CULTURE INDICATED; CULTURE IF INDICATED CULTURE INDICATED; GLUCOSE,URINE NEG (NEG); HYALINE CAST, URINE 4 /lpf (RARE); KETONE, URINE TRACE mg/dL (NEG); MUCUS URINE FEW /lpf (OCC); NITRITE,URINE POS (NEG); SQUAMOUS EPITHELIAL CELL URINE 14 /hpf (0-5); URINE COLOR YELLOW (YELLW/STRAW)
[2017-05-08] MEDS ORDERED: cefTRIAXone INJ 2,000 MG in SODIUM CHLORIDE 0.9% INJ 100 ML IV ONE (15:15)
[2017-05-08 15:36] LABS: AUTOMATED NEUTROPHIL # 2.6 TH/MM3 (1.8-7.7); BASOPHIL % 0.7 % (0.0-2.0); EOSINOPHIL # 0.1 TH/MM3 (0-0.4); EOSINOPHIL % 1.8 % (0.0-4.0); HEMATOCRIT 32.1 % (35.0-46.0); HEMO FLAGS DIFF FINAL; LYMPH % 22.8 % (9.0-44.0); LYMPHOCYTE # 0.9 TH/MM3 (1.0-4.8); MEAN CELL VOLUME 86.6 FL (80.0-100.0); MEAN CORPUSCULAR HEMOGLOBIN 28.4 PG (27.0-34.0); MEAN CORPUSCULAR HGB CONC 32.8 % (32.0-36.0); MONO % 10.4 % (0.0-8.0); NEUT % 64.3 % (16.0-70.0); PLATELET COUNT 237 TH/MM3 (150-450); RED CELL DISTRIBUTION WIDTH 13.9 % (11.6-17.2); WHITE BLOOD COUNT 4.1 TH/MM3 (4.0-11.0)
[2017-05-08 16:10] LABS: ALT (GPT) 17 U/L (10-53); ANION GAP 6 MEQ/L (5-15); AST (GOT) 9 U/L (15-37); BICARBONATE 30.6 MEQ/L (21.0-32.0); BLOOD UREA NITROGEN 10 MG/DL (7-18); CHLORIDE 105 MEQ/L (98-107); GLOMERULAR FILTRATION RATE 89 ML/MIN (>89); POTASSIUM 3.4 MEQ/L (3.5-5.1); SODIUM (NA) 142 MEQ/L (136-145)
[2017-05-08 16:12] LABS: ALKALINE PHOSPHATASE 87 U/L (45-117); TOTAL BILIRUBIN ADULT 0.5 MG/DL (0.2-1.0)
[2017-05-08] MEDS ORDERED: CEPH-460 PO (16:23)
--- NOTE | 2017-05-08 16:25 | PD ---
Data Data Last Documented VS Vital Signs Date Time Temp Pulse Resp B/P Pulse Ox O2 Delivery O2 Flow Rate FiO2 05/08/17 12:52 99.5 99 14 97/58 95 Orders Urinalysis - C+S If Indicated (05/08/17 14:22) Complete Blood Count With Diff (05/08/17 14:43) Comprehensive Metabolic Panel (05/08/17 14:43) Lactic Acid (05/08/17 14:43) Ceftriaxone Inj (Rocephin Inj) (05/08/17 15:15) Urine Culture (05/08/17 14:20) Potassium Chloride (Kcl) (05/08/17 16:30) Labs Laboratory Tests Test 05/08/17 05/08/17 14:20 15:15 Urine Color YELLOW Urine Turbidity HAZY Urine pH 6.0 Urine Specific [place] 1.019 Urine Protein TRACE mg/dL Urine Glucose (UA) NEG mg/dL Urine Ketones TRACE mg/dL Urine Occult Blood NEG Urine Nitrite POS Urine Bilirubin NEG Urine Urobilinogen 2.0 MG/DL Urine Leukocyte Esterase MOD Urine RBC 2 /hpf Urine WBC 22 /hpf Urine Squamous Epithelial 14 /hpf Cells Urine Bacteria MANY /hpf Urine Hyaline Casts 4 /lpf Urine Mucus FEW /lpf Microscopic Urinalysis Comment CULTURE INDICATED White Blood Count 4.1 TH/MM3 Red Blood Count 3.70 MIL/MM3 Hemoglobin 10.5 GM/DL Hematocrit 32.1 % Mean Corpuscular Volume 86.6 FL Mean Corpuscular Hemoglobin 28.4 PG Mean Corpuscular Hemoglobin 32.8 % Concent Red Cell Distribution Width 13.9 % Platelet Count 237 TH/MM3 Mean Platelet Volume 7.6 FL Neutrophils (%) (Auto) 64.3 % Lymphocytes (%) (Auto) 22.8 % Monocytes (%) (Auto) 10.4 % Eosinophils (%) (Auto) 1.8 % Basophils (%) (Auto) 0.7 % Neutrophils # (Auto) 2.6 TH/MM3 Lymphocytes # (Auto) 0.9 TH/MM3 Monocytes # (Auto) 0.4 TH/MM3 Eosinophils # (Auto) 0.1 TH/MM3 Basophils # (Auto) 0.0 TH/MM3 CBC Comment DIFF FINAL Differential Comment Sodium Level 142 MEQ/L Potassium Level 3.4 MEQ/L Chloride Level 105 MEQ/L Carbon Dioxide Level 30.6 MEQ/L Anion Gap 6 MEQ/L Blood Urea Nitrogen 10 MG/DL Creatinine 0.70 MG/DL Estimat Glomerular Filtration 89 ML/MIN Rate Random Glucose 119 MG/DL Lactic Acid Level 0.8 mmol/L Calcium Level 9.7 MG/DL Total Bilirubin 0.5 MG/DL Aspartate Amino Transf 9 U/L (AST/SGOT) Alanine Aminotransferase 17 U/L (ALT/SGPT) Alkaline Phosphatase 87 U/L Total Protein 7.4 GM/DL Albumin 3.2 GM/DL [facility] Supervised Visit with DARIAN: Yes Narrative Course The history, exam, and medical decision-making in the associated midlevel provider note were completed with my assistance. I reviewed and agree with the findings presented. I attest that I had a [id number] encounter with the patient on the same day, and personally performed and documented my assessment and findings in the medical record. *My assessment and Findings: This is a 51-year-old female who presents to the emergency department with abdominal discomfort and decreased appetite. She recently had an extensive workup including a CT abdomen and pelvis which did demonstrate some atherosclerotic disease of the SMA but nothing occlusive. She has a low-grade temperature today. We obtained labs which are reassuring. Urinalysis demonstrates an infection which I suspect is the etiology of her symptoms. I think the patient is safe for discharge on antibiotics. She appears very well, and is somewhat tangential when talking to her with multiple complaints making me less suspicious of an emergency. Diagnosis Primary Impression: UTI (urinary tract infection) Qualified Code: N39.0 - Urinary tract infection without hematuria, site unspecified Referrals: Primary Care Physician 2 days Patient Instructions: General Instructions, Urinary Tract Infection in Women ( ED) Additional Instruction: Complete full course of antibiotics as prescribed Increase fluid intake Follow-up with your primary doctor Return to emergency department for any new or worsening symptoms Scripts Cephalexin (Keflex)500 Mg Pth857 Mg PO Q12H 10 Days Ref 0 Prov:Rochelle Wang 05/08/17 Disposition: 01 DISCHARGE HOME Condition: Stable Joan Raza MD May 08, 2017 16:24
[2017-05-08] MEDS ORDERED: POTASSIUM CHLORIDE 10 MEQ CONTROLLED RELEASE TAB PO ONE (16:30)
[2017-05-08 16:43] VITALS: PULSE 78; RESP 18; O2SAT 98
[2017-05-08 17:10] VITALS: BP 143/68
[2017-05-12] MEDS ORDERED: KETO10 PO (11:29)
== END 2017-05-08 17:22 | disposition home or self-care (01) ==
LOC: NEPD 12:49
DX: N39.0 Urinary tract infection, site not specified (principal); B96.20 Unspecified Escherichia coli [E. coli] as the cause of diseases classified elsewhere; I48.91 Unspecified atrial fibrillation; I10 Essential (primary) hypertension; Z95.0 Presence of cardiac pacemaker
CPT/HCPCS: 80053; 81001; 83605; 85025; 87077; 87086; 87186; 96365; 99284; J0696; J1642

== ENCOUNTER 2017-05-25 11:18 | Inpatient (IN) | payer MEDICARE, OTHER ==
[~2017-05-25] VITALS: Ht 172.7 cm; Wt 72.4 kg
[~2017-05-25 11:18] MED LIST changes: +KETO10 PO
[2017-05-25 11:23] VITALS: BP 98/56; PULSE 74; RESP 16; TEMP 100; O2SAT 98
--- NOTE | 2017-05-25 11:29 | PD ---
HPI Chief Complaint: Neuro Symptoms/ Deficits Time Seen by Provider: 11:28 Travel History International Travel<30 days: No Contact w/Intl Traveler<30days: No Traveled to known affect area: No History of Present Illness HPI 51 YO F with PMH of DM, hypotension, COPD presents to the ED for evaluation of 2 weeks history of weakness, intermittent dizziness, nausea, vomiting, abdominal pain. Symptoms onset gradually. Patient also complains of a few episodes of diarrhea, resolved with treatment with Imodium. She denies fever, chills, decreased appetite, dysuria, CP, palpitations. She states that she was recently treated for UTI and endorses compliance with Macrobid. She also complains of right knee pain, worsened by weightbearing. Patient is minimally ambulatory, uses a wheelchair. No known injury to the knee. No treatment at home. Followed by Dr. Allison. [facility] Past Medical History Hx Anticoagulant Therapy: No Asthma: Yes Atrial Fibrillation: Yes Cancer: Yes (throat) Chemotherapy: Yes (AND RADIATION; HAS A PORT) Chest Pain: Yes Cerebrovascular Accident: Yes Diabetes: Yes Diminished Hearing: No Gastrointestinal Disorders: Yes (esophagitis, gastritis, pancreantitis, HEP C) Headaches: Yes Hepatitis: Yes (HEP C) Heparin Induced Thrombocytopen: No Hypertension: Yes Implanted Vascular Access Dvce: Yes (PORT R CHEST, PACEMAKER L CHEST) Kidney Stones: Yes Neurologic: Yes (diabetic peripheral neuropathy) Psychiatric: No Reproductive: No Integumentary: Yes (ulcer under rt great toe) Immunizations Current: Yes Migraines: Yes Radiation Therapy: Yes (last done on 11/18/16) Triglycerides - High: Yes PNEUMOCCOCAL Vaccine (Year): 2 ?: Not Menopausal: Yes : 3 Para: 2 Miscarriage: 1 Past Surgical History Appendectomy: Yes Body Medical Devices: PACEMAKER; LEG STENT; PORT PLACED Cardiac Surgery: Yes (pacemaker, lt femoral stent) Section: Yes (x1) Cholecystectomy: Yes Pacemaker: Yes (rt chest) Tonsillectomy: Yes Social History Alcohol Use: No Tobacco Use: Yes (quit Nov 2016) Substance Use: No Allergies-Medications (Allergen,Severity, Reaction): Coded Allergies: Ultram (Verified Allergy, Intermediate, Rash, 05/12/17) Compazine (Verified Adverse Reaction, Severe, ANXIETY, 05/12/17) ANXIETY MRI PRECAUTION (Verified Adverse Reaction, Severe, PACEMAKER IS NOT A BIOTRONIK OR MEDTRONIC 06/15/16 KMD, 05/12/17) PACEMAKER IS NOT A BIOTRONIK OR MEDTRONIC CONDITIONAL PACEMAKER. CALLED BOTH COMPANIES TO CONFIRM. Percocet (Verified Adverse Reaction, Severe, Nausea/Vomiting, 05/12/17) *MDRO Multi-Drug Resistant Organism (Verified Adverse Reaction, Unknown, ESBL, MRSA, 05/12/17) E. coli ESBL (urine) - 2012, 2013, 2014, 04/2016, 02/03/2017, 03/08/2017, 05/08/17 MRSA - 2003, 03/2015, 03/09/2017 (toe wound), 10/2015, 03/28/17, 04/27/17 (arm/back wound), (foot-08/17/16 & 01/11/17) Metformin (Verified Adverse Reaction, Unknown, DIARRHEA, 05/12/17) Morphine (Verified Adverse Reaction, Unknown, Dizziness, 05/12/17) states doesn't want-does not like the way it makes me feel Reported Meds & Prescriptions Reported Meds & Active Scripts Active Ketorolac (Ketorolac Tromethamine) 10 Mg Tab 10 Mg PO TID PRN Desitin Topical (Diaper Rash Products) 1 Application Oint 1 Applic TOPICAL DIRECTED PRN 7 Days Gabapentin 400 Mg Cap 400 Mg PO TID Midodrine 5 Mg Tab 5 Mg PO TID Glipizide ER (Glipizide) 5 Mg Callie 5 Mg PO DAILY Take with breakfast or first main meal of the day. Ondansetron HCl 4 Mg Tab 1 Tab PO Q6HR PRN Atorvastatin (Atorvastatin Calcium) 20 Mg Tab 20 Mg PO HS Januvia (Sitagliptin Phosphate) 100 Mg Tab 100 Mg PO DAILY Reported Advair Diskus Inh (Fluticasone-Salmeterol Inh) 100-50 Mcg/Blist Aer 1 Puff INH BID Rinse mouth after use. Review of Systems Except as stated in HPI: all other systems reviewed are Neg Physical Exam Narrative GENERAL: Well-nourished, well-developed somnolent white female. Rouses easily to voice. SKIN: Focused skin assessment warm/dry. HEAD: Normocephalic. Atraumatic. EYES: No scleral icterus. No injection or drainage. PERRLA. EOMI. NECK: Supple, trachea midline. No JVD or lymphadenopathy. CARDIOVASCULAR: Regular rate and rhythm without murmurs, gallops, or rubs. 2+ DP and radial pulses bilaterally. RESPIRATORY: Breath sounds clear and equal bilaterally. No accessory muscle use. GASTROINTESTINAL: Abdomen soft, nondistended, active bowel sounds, no palpable masses. Tender to palpation in the epigastric region and RUQ. MUSCULOSKELETAL: No cyanosis, or edema. Patient moves extremities spontaneously. No TTP of the left knee. No patellar balloting. Patient retains full ROM. NEUROLOGICAL: Awake and oriented 4. Cranial nerves II through XII intact. Motor and sensory grossly within normal limits. 4/5 muscle strength in all muscle groups. Normal speech. Exam limited by patient's somnolence. BACK: Nontender without obvious deformity. + Right-sided CVA tenderness. Data Data Last Documented VS Vital Signs Date Time Temp Pulse Resp B/P Pulse Ox O2 Delivery O2 Flow Rate FiO2 05/25/17 11:56 72 16 115/74 96 Room Air 05/25/17 11:23 100.0 Orders Electrocardiogram (05/25/17 11:41) Complete Blood Count With Diff (05/25/17 11:41) Comprehensive Metabolic Panel (05/25/17 11:41) Urinalysis - C+S If Indicated (05/25/17 11:41) Chest, Single Ap (05/25/17 11:41) Ct Brain W/O Iv Contrast(Rout) (05/25/17 11:41) Blood Glucose (05/25/17 11:41) Ecg Monitoring (05/25/17 11:41) Iv Access Insert/Monitor (05/25/17 11:41) Oximetry (05/25/17 11:41) Sodium Chloride 0.9% Flush (Ns Flush) (05/25/17 11:45) Sodium Chlor 0.9% 1000 Ml Inj (Ns 1000 M (05/25/17 11:41) Drug Screen, Random Urine (05/25/17 11:41) Alcohol (Ethanol) (05/25/17 11:41) Knee, Complete (4vws) (05/25/17 11:41) Creatine Kinase (Cpk) (05/25/17 11:41) Prothrombin Time / Inr (Pt) (05/25/17 11:41) Act Partial Throm Time (Ptt) (05/25/17 11:41) Troponin I (05/25/17 11:41) Ct Abd/Pel W Iv Contrast(Rout) (05/25/17 ) Lactic Acid (05/25/17 12:56) Iohexol 350 Inj (Omnipaque 350 Inj) (05/25/17 13:54) Admit Order (Ed Use Only) (05/25/17 14:14) Cath For Specimen (05/25/17 14:15) Labs Laboratory Tests Test 05/25/17 05/25/17 12:00 13:15 White Blood Count 5.6 TH/MM3 Red Blood Count 3.25 MIL/MM3 Hemoglobin 9.9 GM/DL Hematocrit 28.1 % Mean Corpuscular Volume 86.3 FL Mean Corpuscular Hemoglobin 30.4 PG Mean Corpuscular Hemoglobin 35.3 % Concent Red Cell Distribution Width 13.8 % Platelet Count 183 TH/MM3 Mean Platelet Volume 7.8 FL Neutrophils (%) (Auto) 76.9 % Lymphocytes (%) (Auto) 15.3 % Monocytes (%) (Auto) 6.8 % Eosinophils (%) (Auto) 0.6 % Basophils (%) (Auto) 0.4 % Neutrophils # (Auto) 4.3 TH/MM3 Lymphocytes # (Auto) 0.9 TH/MM3 Monocytes # (Auto) 0.4 TH/MM3 Eosinophils # (Auto) 0.0 TH/MM3 Basophils # (Auto) 0.0 TH/MM3 CBC Comment DIFF FINAL Differential Comment Prothrombin Time 11.4 SEC Prothromb Time International 1.0 RATIO Ratio Activated Partial 29.9 SEC Thromboplast Time Sodium Level 139 MEQ/L Potassium Level 4.3 MEQ/L Chloride Level 104 MEQ/L Carbon Dioxide Level 27.8 MEQ/L Anion Gap 7 MEQ/L Blood Urea Nitrogen 11 MG/DL Creatinine 0.66 MG/DL Estimat Glomerular Filtration 95 ML/MIN Rate Random Glucose 111 MG/DL Calcium Level 9.7 MG/DL Total Bilirubin 0.7 MG/DL Aspartate Amino Transf 12 U/L (AST/SGOT) Alanine Aminotransferase 16 U/L (ALT/SGPT) Alkaline Phosphatase 74 U/L Total Creatine Kinase 22 U/L Troponin I LESS THAN 0.02 NG/ML Total Protein 6.2 GM/DL Albumin 2.8 GM/DL Ethyl Alcohol Level LESS THAN 3 MG/DL Lactic Acid Level 0.8 mmol/L [facility] Medical Decision Making Medical Screen Exam Complete: Yes Emergency Medical Condition: Yes Interpretation(s) EKG rate 72, sinus rhythm. DE interval 157 ms, QRS 90 ms, QTC 417 ms. Normal axis. Q waves in V1 and V2. Reviewed by Dr. Cage. Differential Diagnosis cystitis versus pyelonephritis versus urosepsis versus gastroenteritis versus GERD versus ICH versus Narrative Course 51 YO F with PMH of DM, hypotension, COPD presents to the ED for evaluation of 2 weeks history of weakness. Complains of intermittent dizziness, nausea, vomiting, abdominal pain x 3 days. She denies fever, chills, decreased appetite , dysuria, CP, palpitations. She states that she was recently treated for UTI, compliant with Macrobid. She also complains of right knee pain, worsened by weightbearing. Patient is minimally ambulatory, uses a wheelchair. Followed by Dr. Allison. Vitals reviewed, patient febrile, hypotensive on presentation. Physical exam reveals weakness without focal neuro deficit. Abdominal exam unremarkable. + right sided CVA tenderness. CBC: WBC 5.6, hemoglobin 9.9. Coags: INR 1.0. CMP: Unremarkable. Lactic acid 0.8. EtOH less than 3. UA: Hazy, moderate leukocyte esterase, few bacteria, culture pending EKG: As above. Cardiac enzymes negative 1. CXR: Pacer [id number] stable. Lungs clear. XR right knee: [id number] effusion. CT brain: Normal CT abdomen/pelvis: No acute process. Lingular density, recommended CT follow- up in 3 months. Prominent endometrium, recommended pelvic sonogram in 4-6 weeks for follow-up. Radiological findings per the radiology read. On recheck the patient is still complaining of weakness, nausea. Essentially she has failed outpatient treatment of UTI. Plan to admit to the residents, patient is agreeable. Spoke with Dr. Allison who will accept the patient to the medicine service under Dr. Herrera. Please see medicine notes for disposition. Diagnosis Primary Impression: Pyelonephritis Additional Impression: Failure of outpatient treatment Latanya Mckay May 25, 2017 11:29
[2017-05-25] MEDS ORDERED: SODIUM CHLOR 0.9% 1000 ML INJ 1,000 ML IV SCH (11:41)
[2017-05-25] MEDS ORDERED: SODIUM CHLORIDE 0.9% FLUSH 5 ML FLUSH IV FLUSH PRN (11:45)
[2017-05-25 11:56] VITALS: BP 115/74; PULSE 72; RESP 16; O2SAT 96
[2017-05-25 12:25] LABS: AUTOMATED NEUTROPHIL # 4.3 TH/MM3 (1.8-7.7); BASOPHIL % 0.4 % (0.0-2.0); EOSINOPHIL % 0.6 % (0.0-4.0); HEMATOCRIT 28.1 % (35.0-46.0); HEMO FLAGS DIFF FINAL; LYMPH % 15.3 % (9.0-44.0); LYMPHOCYTE # 0.9 TH/MM3 (1.0-4.8); MEAN CELL VOLUME 86.3 FL (80.0-100.0); MEAN CORPUSCULAR HEMOGLOBIN 30.4 PG (27.0-34.0); MEAN CORPUSCULAR HGB CONC 35.3 % (32.0-36.0); MONO % 6.8 % (0.0-8.0); NEUT % 76.9 % (16.0-70.0); PLATELET COUNT 183 TH/MM3 (150-450); RED BLOOD COUNT 3.25 MIL/MM3 (4.00-5.30); RED CELL DISTRIBUTION WIDTH 13.8 % (11.6-17.2); WHITE BLOOD COUNT 5.6 TH/MM3 (4.0-11.0)
[2017-05-25 12:34] LABS: APTT (PATIENT) 29.9 SEC (24.3-30.1); PROTHROMBIN TIME - PATIENT 11.4 SEC (9.8-11.6)
[2017-05-25 12:41] LABS: ANION GAP 7 MEQ/L (5-15); AST (GOT) 12 U/L (15-37); BICARBONATE 27.8 MEQ/L (21.0-32.0); BLOOD UREA NITROGEN 11 MG/DL (7-18); CHLORIDE 104 MEQ/L (98-107); GLOMERULAR FILTRATION RATE 95 ML/MIN (>89); POTASSIUM 4.3 MEQ/L (3.5-5.1); SODIUM (NA) 139 MEQ/L (136-145)
[2017-05-25 12:42] LABS: ALT (GPT) 16 U/L (10-53)
[2017-05-25 12:46] LABS: ALKALINE PHOSPHATASE 74 U/L (45-117); TOTAL BILIRUBIN ADULT 0.7 MG/DL (0.2-1.0)
--- NOTE | 2017-05-25 12:53 | RADRPT ---
EXAM DATE/TIME: 05/25/2017 12:09 [facility] COMPARISON: KNEE RIGHT COMPLETE (4VWS), May 02, 2017, 11:55. INDICATIONS : Right knee pain. MEDICAL HISTORY : asthma SURGICAL HISTORY : None. ENCOUNTER: Initial ACUITY: 1 day PAIN SCORE: 8/10 LOCATION: Right knee FINDINGS: Four view examination of the right knee demonstrates no evidence of fracture or dislocation. Bony mi neralization is normal. The articular surfaces are intact. Small to moderate sized joint effusion is noted with increased density in the suprapatellar region. CONCLUSION: Small to moderate joint effusion. No acute bony abnormality or significant arthropathy. Uriel Boykin MD on May 25, 2017 at 12:50 Board Certified Radiologist. This report was verified electronically.
[2017-05-25 12:57] LABS: CREATINE KINASE 22 U/L (26-192)
[2017-05-25] MEDS ORDERED: IOHEXOL 350 MG/ML 10 ML VIAL (for RAD DIAG) IV ONE (13:54)
--- NOTE | 2017-05-25 14:02 | RADRPT ---
EXAM DATE/TIME: 05/25/2017 12:16 [facility] COMPARISON: No previous studies available for comparison. INDICATIONS : Short of breath. MEDICAL HISTORY : Cardiovascular disease. Hepatitis C. Asthma, throat cancer SURGICAL HISTORY : Pacemaker. ENCOUNTER: Initial ACUITY: 1 day PAIN SCORE: 0/10 LOCATION: Bilateral chest FINDINGS: A single view of the chest demonstrates the left subclavian bipolar pacer is in good position. Right IJ Infusaport catheter is in good position. The lungs are clear. Bones are unremarkable. Heart an d mediastinum unremarkable. Clips suggest cholecystectomy. CONCLUSION: Pacer and Infusaport stable. Lungs are clear. Piotr Steward MD on May 25, 2017 at 13:55 Board Certified Radiologist. This report was verified electronically.
--- NOTE | 2017-05-25 14:02 | RADRPT ---
EXAM DATE/TIME: 05/25/2017 13:34 [facility] COMPARISON: CT BRAIN W/O CONTRAST, March 08, 2017, 17:54. INDICATIONS : Weakness, bilateral lower leg pain RADIATION DOSE: 53.92 CTDIvol (mGy) MEDICAL HISTORY : Hypertension. Pancreatitis. Hepatitis C.Throat cancer SURGICAL HISTORY : Pacemaker. left leg stents ENCOUNTER: Initial ACUITY: 1 day PAIN SCALE: 8/10 LOCATION: cranial TECHNIQUE: Multiple contiguous axial images were obtained of the head. Using automated exposure control and adj ustment of the mA and/or kV according to patient size, radiation dose was kept as low as reasonably a chievable to obtain optimal diagnostic quality images. DICOM format image data is available electro nically for review and comparison. FINDINGS: CEREBRUM: The ventricles are normal for age. No evidence of midline shift, mass lesion, hemorrhage or acute in farction. No extra-axial fluid collections are seen. POSTERIOR FOSSA: The cerebellum and brainstem are intact. The 4th ventricle is midline. The cerebellopontine angle i s unremarkable. EXTRACRANIAL: The visualized portion of the orbits is intact. SKULL: The calvaria is intact. No evidence of skull fracture. CONCLUSION: Normal examination. Piotr Steward MD on May 25, 2017 at 14:00 Board Certified Radiologist. This report was verified electronically.
--- NOTE | 2017-05-25 14:05 | RADRPT ---
EXAM DATE/TIME: 05/25/2017 13:42 [facility] COMPARISON: No previous studies available for comparison. INDICATIONS : Weakness IV CONTRAST: 69 cc Omnipaque 350 (iohexol) IV ORAL CONTRAST: No oral contrast ingested. RADIATION DOSE: 8.05 CTDIvol (mGy) MEDICAL HISTORY : Hypertension. Pancreatitis. Hepatitis C.Throat cancer SURGICAL HISTORY : Pacemaker. Leg stent ENCOUNTER: Initial ACUITY: 1 day PAIN SCALE: 8/10 LOCATION: Abdomen TECHNIQUE: Volumetric scanning of the abdomen and pelvis was performed. Using automated exposure control and ad justment of the mA and/or kV according to patient size, radiation dose was kept as low as reasonably achievable to obtain optimal diagnostic quality images. DICOM format image data is available electro nically for review and comparison. FINDINGS: LOWER LUNGS: The visualized lower lungs are clear. LIVER: Homogeneous density without lesion. There is no dilation of the biliary tree. Cholecystectomy clips. SPLEEN: Normal size without lesion. PANCREAS: Within normal limits. KIDNEYS: Normal in size and shape. There is no mass, stone or hydronephrosis. ADRENAL GLANDS: Within normal limits. VASCULAR: There is no aortic aneurysm. BOWEL/MESENTERY: The stomach, small bowel, and colon demonstrate no acute abnormality. There is no free intraperitone al air or fluid. ABDOMINAL WALL: Small fat containing umbilical hernia. RETROPERITONEUM: There is no lymphadenopathy. BLADDER: No wall thickening or mass. REPRODUCTIVE: Prominent endometrium. INGUINAL: There is no lymphadenopathy or hernia. MUSCULOSKELETAL: Within normal limits for patient age. CONCLUSION: 1. No acute inflammatory process. 2. Status post cholecystectomy. 3. Lingular density measuring 2.1 x 1.[address] chest in 3 months recommended for stability. 4. Prominent endometrium, pelvic sonogram in 4-6 weeks recommended for stability. Luis Bean MD on May 25, 2017 at 14:00 Board Certified Radiologist. This report was verified electronically.
[2017-05-25 14:35] VITALS: BP 180/91; PULSE 92; RESP 18; O2SAT 98
[2017-05-25 15:05] LABS: BACTERIA, URINE FEW /hpf; BLOOD, URINE NEG (NEG); COMMENT (UR) CATH-CULTURE IND; CULTURE IF INDICATED CATH CULTURE IND; GLUCOSE,URINE NEG (NEG); KETONE, URINE 40 mg/dL (NEG); NITRITE,URINE NEG (NEG); SQUAMOUS EPITHELIAL CELL URINE 16 /hpf (0-5); URINE COLOR YELLOW (YELLW/STRAW)
[2017-05-25] MEDS ORDERED: PIPERACIL-TAZO 4.5 GM PREMIX 100 ML IV ONE (15:15)
--- NOTE | 2017-05-25 15:38 | HHI.HP ---
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 Regarding her weakness and lightheadedness, the symptoms are near her baseline and worsened with position changes due to her orthostatic hypotension. She denies chest pains or shortness of breath. Weakness is diffuse and not focal. She denies sudden onset focal weakness, paresthesias, headache, changes in her vision (although she does endorse chronic vision issues for which she sees an pump installer). Regarding her nausea and vomiting, she has only had a few episodes in the last several weeks. She has Zofran at home which helps her with this symptom. Regarding her lower abdominal discomfort, it is associated with some mild dysuria and urinary frequency. No fevers or chills. Recently treated for urinary tract infection with Macrobid, per patient she completed a course and has 1 dose left. Review of Systems ROS Limitations: Poor Historian Constitutional: DENIES: Fever, Chills Respiratory: DENIES: Cough, Wheezing, Shortness of breath Cardiovascular: DENIES: Chest pain Gastrointestinal: COMPLAINS OF: Abdominal pain, Nausea, Vomiting, DENIES: Black stools, Bloody stools Genitourinary: COMPLAINS OF: Urinary frequency, Dysuria, DENIES: Abnormal vaginal bleeding, Vaginal discharge Musculoskeletal: COMPLAINS OF: Joint pain, DENIES: Muscle aches Integumentary: DENIES: Rash Hematologic/lymphatic: DENIES: Bruising Neurologic: DENIES: Abnormal gait (wheelchair bound, and with assistance), Headache, Localized weakness, Paresthesias, Speech Problems Past Family Social History Past Medical History Poorly controlled DM secondary to noncompliance * Diagnosed in 2006 * Cannot tolerate metformin 2/2 diarrhea * Refuses insulin 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 Umanzor and radiation + cisplatin with Dr. Nagy * Misses appointment due to frequent hospitalizations and gets lost to follow-up ; due for PET scan spring 2016 which hasn't been done yet Peripheral neuropathy (has zero sensation in her feet) Dysautonomia * Gastroparesis * Orthostatic hypotension Hyperlipidemia Hypertriglyceridemia Peripheral vascular disease Pacemaker (because "heart stopped up in hospital") Asthma Hepatitis C Genital herpes and warts Osteoarthritis Cataracts History of pancreatitis History of osteomyelitis (s/p right 5th toe amputation) History of recurrent UTIs (including ESBL E. coli) Orthostatic hypotension * utilizes a wheelchair due significant symptoms when standing up and ambulating. It was able to ambulate with a walker. SECOND STEWARD History (1 miscarriage) x 1, x 1 Age at menstruation: 13 Past Surgical History Cholecystectomy Appendectomy Tonsillectomy Right 5th digit amputation Pacemaker placement Left femoral stent Reported Medications Reported Meds & Active Scripts Active Ketorolac (Ketorolac Tromethamine) 10 Mg Tab 10 Mg PO TID PRN Desitin Topical (Diaper Rash Products) 1 Application Oint 1 Applic TOPICAL DIRECTED PRN 7 Days Gabapentin 400 Mg Cap 400 Mg PO TID Midodrine 5 Mg Tab 5 Mg PO TID Glipizide ER (Glipizide) 5 Mg Callie 5 Mg PO DAILY Take with breakfast or first main meal of the day. Ondansetron HCl 4 Mg Tab 1 Tab PO Q6HR PRN Atorvastatin (Atorvastatin Calcium) 20 Mg Tab 20 Mg PO HS Januvia (Sitagliptin Phosphate) 100 Mg Tab 100 Mg PO DAILY Reported Advair Diskus Inh (Fluticasone-Salmeterol Inh) 100-50 Mcg/Blist Aer 1 Puff INH BID Rinse mouth after use. Allergies: Coded Allergies: Ultram (Verified Allergy, Intermediate, Rash, 05/12/17) Compazine (Verified Adverse Reaction, Severe, ANXIETY, 05/12/17) ANXIETY MRI PRECAUTION (Verified Adverse Reaction, Severe, PACEMAKER IS NOT A BIOTRONIK OR MEDTRONIC 06/15/16 KMD, 05/12/17) PACEMAKER IS NOT A BIOTRONIK OR MEDTRONIC CONDITIONAL PACEMAKER. CALLED BOTH COMPANIES TO CONFIRM. Percocet (Verified Adverse Reaction, Severe, Nausea/Vomiting, 05/12/17) *MDRO Multi-Drug Resistant Organism (Verified Adverse Reaction, Unknown, ESBL, MRSA, 05/12/17) E. coli ESBL (urine) - 2012, 2013, 2015, 04/2016, 02/03/2017, 03/08/2017, 05/08/17 MRSA - 2003, 03/2015, 03/09/2017 (toe wound), 10/2015, 03/28/17, 04/27/17 (arm/back wound), (foot-08/17/16 & 01/11/17) Metformin (Verified Adverse Reaction, Unknown, DIARRHEA, 05/12/17) Morphine (Verified Adverse Reaction, Unknown, Dizziness, 05/12/17) states doesn't want-does not like the way it makes me feel Family History Mother: but unsure of medical history Father: , heart disease Sister: CAD Two healthy children (son and daughter) History of cancers in the family but unsure of who or what kind Social History Lives with boyfriend and roommate Unemployed, disabled High school education EtOH: denies Tobacco: quit in 2003, smoked about 1/2 PPD x 14 years prior to quitting Illicit drugs: denies Physical Exam Vital Signs Vital Signs Date Time Temp Pulse Resp B/P Pulse Ox O2 Delivery O2 Flow Rate FiO2 05/25/17 14:35 92 18 180/91 98 Room Air 05/25/17 11:56 72 16 115/74 96 Room Air 05/25/17 11:23 100.0 74 16 98/56 98 Physical Exam GENERAL: Well-developed, well-nourished adult white female lying in bed, appears older than stated age, comfortable SKIN: No rashes, ecchymoses or lesions. Cool and dry. HEAD: NC/AT EYES: PERRL. EOMI. No conjunctival injection or drainage. ENT: MMM, OP without erythema, tonsillar swelling, or exudate. NECK: Supple, no lymphadenopathy. No JVD. CARDIOVASCULAR: NRRR. Normal S1/S2. No MRG RESPIRATORY: CTAB. No crackles or wheezes. GASTROINTESTINAL: Abdomen soft, non-distended, moderately tender over suprapubic region. No hepato-splenomegaly or palpable masses. No rebound or guarding. GENITOURINARY: No CVA tenderness. MUSCULOSKELETAL: Extremities without clubbing, cyanosis, or edema. KNEE: Right knee without evidence of injury or effusion. No erythema. Mildly tender to palpation over distal quadriceps tendons. No evidence of effusion. LCL , MCL, ACL, PCL stable. NEUROLOGICAL: Awake and alert. Cranial nerves II through XII grossly intact. Sensation intact over all dermatomes. Strength 5 out of 5 in all major muscle groups. Normal speech. Laboratory Laboratory Tests Test 05/25/17 05/25/17 05/25/17 12:00 13:15 14:25 White Blood Count 5.6 Red Blood Count 3.25 Hemoglobin 9.9 Hematocrit 28.1 Mean Corpuscular Volume 86.3 Mean Corpuscular Hemoglobin 30.4 Mean Corpuscular Hemoglobin 35.3 Concent Red Cell Distribution Width 13.8 Platelet Count 183 Mean Platelet Volume 7.8 Neutrophils (%) (Auto) 76.9 Lymphocytes (%) (Auto) 15.3 Monocytes (%) (Auto) 6.8 Eosinophils (%) (Auto) 0.6 Basophils (%) (Auto) 0.4 Neutrophils # (Auto) 4.3 Lymphocytes # (Auto) 0.9 Monocytes # (Auto) 0.4 Eosinophils # (Auto) 0.0 Basophils # (Auto) 0.0 CBC Comment DIFF FINAL Differential Comment Prothrombin Time 11.4 Prothromb Time International 1.0 Ratio Activated Partial 29.9 Thromboplast Time Sodium Level 139 Potassium Level 4.3 Chloride Level 104 Carbon Dioxide Level 27.8 Anion Gap 7 Blood Urea Nitrogen 11 Creatinine 0.66 Estimat Glomerular Filtration 95 Rate Random Glucose 111 Calcium Level 9.7 Total Bilirubin 0.7 Aspartate Amino Transf 12 (AST/SGOT) Alanine Aminotransferase 16 (ALT/SGPT) Alkaline Phosphatase 74 Total Creatine Kinase 22 Troponin I LESS THAN 0.02 Total Protein 6.2 Albumin 2.8 Ethyl Alcohol Level LESS THAN 3 Lactic Acid Level 0.8 Urine Color YELLOW Urine Turbidity HAZY Urine pH 7.0 Urine Specific [place] 1.019 Urine Protein NEG Urine Glucose (UA) NEG Urine Ketones 40 Urine Occult Blood NEG Urine Nitrite NEG Urine Bilirubin NEG Urine Urobilinogen LESS THAN 2.0 Urine Leukocyte Esterase MOD Urine RBC 1 Urine WBC 2 Urine Squamous Epithelial 16 Cells Urine Bacteria FEW Microscopic Urinalysis Comment CATH-CULTURE IND Date/Time Procedure Status Source Growth 05/25/17 14:25 Urine Culture Received Urine Catheterized Urine Pending Result Diagram: 05/25/17 1200 05/25/17 1200 Imaging Last Impressions Knee X-Ray 05/25/17 1141 Signed Impressions: Service Date/Time: May 12:09 - CONCLUSION: Small to moderate joint effusion. No acute bony abnormality or significant arthropathy. Uriel Boykin MD Head CT 05/25/17 1141 Signed Impressions: Service Date/Time: May 13:34 - CONCLUSION: Normal examination. Piotr Steward MD Chest X-Ray 05/25/17 1141 Signed Impressions: Service Date/Time: , May 25, 2017 12:16 - CONCLUSION: Pacer and Infusaport stable. Lungs are clear. Piotr Steward MD Abdomen/Pelvis CT 05/25/17 0000 Signed Impressions: Service Date/Time: , May 25, 2017 13:42 - CONCLUSION: 1. No acute inflammatory process. 2. Status post cholecystectomy. 3. Lingular density measuring 2.1 x 1.[address] chest in 3 months recommended for stability. 4. Prominent endometrium, pelvic sonogram in 4-6 weeks recommended for stability. Luis Bean MD Assessment and Plan Assessment and Plan Dear female with history of diabetes, orthostatic hypotension, squamous cell carcinoma of the tongue presenting with: Problem List: (1) UTI (urinary tract infection) Status: Acute Plan: Likely just cystitis based on reassuring exam, lack of significant pyuria on urinalysis. - Given history of ESBL organisms, treat with Zosyn 4.5 g IV every 6 hours - Follow up urine culture - Follow up blood culture (2) Failure of outpatient treatment Status: Acute Plan: Status post treatment with Macrobid for UTI - Manage as above (3) Right knee pain Status: Chronic Plan: No evidence of acute process - Toradol every 6 hours 30 mg IV as needed - Tramadol 50 mg every 6 hours as needed for breakthrough pain (4) Weakness Status: Acute Plan: Likely due to orthostatic hypotension, dysautonomia; these are chronic problems for this patient Troponin negative; patient denies chest pain or shortness of breath Neurologic exam nonfocal - Treat orthostatic hypotension as below - PT evaluate and treat - Fall precautions (5) Orthostatic hypotension Status: Chronic Plan: Continue home midodrine (6) Nausea and vomiting Status: Resolved Plan: Now resolved, likely secondary to dysautonomia and UTI - Zofran 4 mg IV every 6 hours as needed (7) DM (diabetes mellitus), type 2, uncontrolled w/neurologic complication Status: Chronic Plan: Blood sugar 111 on admission, stable neuropathy - Insulin sliding scale low-dose while in hospital - Hold home diabetic medication (8) Chronic foot ulcer Status: Chronic Plan: Wound stable, no evidence of acute infection No leukocytosis - Monitor clinically (9) 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 CODE STATUS: Full code Problem Qualifiers (1) UTI (urinary tract infection): Qualified Code: N30.00 - Acute cystitis without hematuria (2) Right knee pain: Qualified Code: M25.561 - Chronic pain of right knee (3) Nausea and vomiting: Qualified Code: R11.2 - Non-intractable vomiting with nausea, unspecified vomiting type (4) DM (diabetes mellitus), type 2, uncontrolled w/neurologic complication: Qualified Code: E11.42 - Uncontrolled type 2 diabetes mellitus with diabetic polyneuropathy, without long-term current use of insulin Allan Lindsey MD R1 May 25, 2017 15:38
[2017-05-25] MEDS ORDERED: SODI1TAB PO (16:13)
[2017-05-25] MEDS ORDERED: LACTULOSE SYRUP 20 GM/30 ML CUP PO PRN (16:15)
[2017-05-25] MEDS ORDERED: SENNOSIDES 8.6 MG TAB PO PRN (16:15)
[2017-05-25] MEDS ORDERED: MAGNESIUM HYDROXIDE SUSP 30 ML CUP PO PRN (16:15)
[2017-05-25] MEDS ORDERED: SODIUM CHLORIDE 0.9% FLUSH 10 ML FLUSH IV FLUSH PRN (16:15)
[2017-05-25] MEDS ORDERED: BISACODYL 10 MG SUPP RECTAL PRN (16:15)
[2017-05-25] MEDS ORDERED: NALOXONE HCL 0.4 MG/ML AMP IV PRN (16:15)
[2017-05-25] MEDS ORDERED: DEXTROSE 50% IN WATER 50 ML VIAL(D50) IV PRN (17:00)
[2017-05-25] MEDS ORDERED: ONDANSETRON HCL 4 MG/2 ML VIAL IV PUSH PRN (17:00)
[2017-05-25] MEDS ORDERED: KETOROLAC TROMETHAMINE 60 MG/2 ML (IM) VIAL IM PRN (17:00)
[2017-05-25] MEDS ORDERED: GLUCAGON 1 MG/ML VIAL OTHER PRN (17:00)
[2017-05-25 18:27] VITALS: BP 125/82; PULSE 82; RESP 16; O2SAT 100
[2017-05-25] MEDS: ENOXAPARIN SODIUM 40 MG/0.4 ML SYRINGE SQ SCH (19:06)
[2017-05-25] MEDS: SODIUM CHLOR 0.9% 1000 ML INJ 1,000 ML IV SCH (19:06)
[2017-05-25] MEDS: GABAPENTIN 400 MG CAP PO SCH (19:06)
[2017-05-25] MEDS: INSULIN ASPART SUPPLEMENTAL SCALE SQ SCH (21:00)
[2017-05-25] MEDS ORDERED: FLUTICASONE SALMETEROL INH SCH (21:00)
[2017-05-25] MEDS: SODIUM CHLORIDE 0.9% FLUSH 10 ML FLUSH IV FLUSH SCH (21:00)
[2017-05-25] MEDS: MIDODRINE 5 MG TAB PO SCH (22:00)
[2017-05-25] MEDS: PIPERACIL-TAZO 4.5 GM PREMIX 100 ML IV SCH (22:07)
[2017-05-25] MEDS: ATORVASTATIN 20 MG TAB PO SCH (22:20)
[2017-05-25 22:21] VITALS: BP 114/55; PULSE 85; RESP 17; O2SAT 100
[2017-05-25] MEDS: DOCUSATE SODIUM 50 MG/SENNA 8.6 MG TAB PO SCH (22:21)
[2017-05-25 23:02] VITALS: BP 137/65; PULSE 83; RESP 18; TEMP 98.2; O2SAT 96
[2017-05-25 23:55] LABS: AMPHETAMINE, URINE NEG (NEG); BARBITURATES, URINE NEG (NEG); COCAINE, URINE NEG (NEG)
[2017-05-26] VITALS: BP 132/64; PULSE 78; RESP 18; TEMP 98.3; O2SAT 96
[2017-05-26] MEDS: SODIUM CHLOR 0.9% 1000 ML INJ 1,000 ML IV SCH ×2 (03:41→12:49)
[2017-05-26] MEDS: PIPERACIL-TAZO 4.5 GM PREMIX 100 ML IV SCH ×4 (03:41→21:09)
[2017-05-26 04:00] VITALS: BP 137/68; PULSE 78; RESP 18; TEMP 97.2; O2SAT 96
[2017-05-26] MEDS: ONDANSETRON HCL 4 MG/2 ML VIAL IV PUSH PRN (05:11)
[2017-05-26] MEDS: INSULIN ASPART SUPPLEMENTAL SCALE SQ SCH ×4 (05:14→19:55)
[2017-05-26 05:17] LABS: AUTOMATED NEUTROPHIL # 3.6 TH/MM3 (1.8-7.7); BASOPHIL % 0.5 % (0.0-2.0); EOSINOPHIL # 0.1 TH/MM3 (0-0.4); EOSINOPHIL % 1.3 % (0.0-4.0); HEMATOCRIT 28.1 % (35.0-46.0); HEMO FLAGS DIFF FINAL; LYMPHOCYTE # 0.7 TH/MM3 (1.0-4.8); MEAN CELL VOLUME 88.3 FL (80.0-100.0); MEAN CORPUSCULAR HEMOGLOBIN 29.4 PG (27.0-34.0); MEAN CORPUSCULAR HGB CONC 33.3 % (32.0-36.0); MONO % 9.4 % (0.0-8.0); NEUT % 73.8 % (16.0-70.0); PLATELET COUNT 187 TH/MM3 (150-450); RED BLOOD COUNT 3.18 MIL/MM3 (4.00-5.30); RED CELL DISTRIBUTION WIDTH 13.8 % (11.6-17.2); WHITE BLOOD COUNT 4.9 TH/MM3 (4.0-11.0)
[2017-05-26 05:45] LABS: BICARBONATE 30.2 MEQ/L (21.0-32.0); POTASSIUM 3.8 MEQ/L (3.5-5.1)
[2017-05-26 08:00] VITALS: BP 106/70; PULSE 80; RESP 16; TEMP 98.2; O2SAT 99
[2017-05-26] MEDS: SODIUM CHLORIDE 0.9% FLUSH 10 ML FLUSH IV FLUSH SCH ×2 (09:00→19:59)
[2017-05-26] MEDS: GABAPENTIN 400 MG CAP PO SCH ×3 (09:25→17:59)
[2017-05-26] MEDS: MIDODRINE 5 MG TAB PO SCH ×3 (09:25→17:59)
[2017-05-26] MEDS: DOCUSATE SODIUM 50 MG/SENNA 8.6 MG TAB PO SCH ×2 (09:25→19:59)
--- NOTE | 2017-05-26 09:32 | HHI.FPPN ---
Subjective Remarks Patient is doing better this morning. She continues to complain of suprapubic tenderness. She has questions about the CT findings and follow-up regarding repeat images. We discussed this in detail. Otherwise, the patient is doing well. She denies fever, chills, nausea, vomiting, shortness of breath. (Kishan Fagan MD R2) Objective Vitals Vital Signs Date Time Temp Pulse Resp B/P Pulse Ox O2 Delivery O2 Flow Rate FiO2 05/26/17 08:00 98.2 80 16 106/70 99 05/26/17 04:00 97.2 78 18 137/68 96 05/26/17 00:00 98.3 78 18 132/64 96 05/25/17 23:02 98.2 83 18 137/65 96 05/25/17 22:21 85 17 114/55 100 Room Air 05/25/17 18:27 82 16 125/82 100 Room Air 05/25/17 14:35 92 18 180/91 98 Room Air 05/25/17 11:56 72 16 115/74 96 Room Air 05/25/17 11:23 100.0 74 16 98/56 98 I/O 05/25/17 05/25/17 05/25/17 05/26/17 05/26/17 05/26/17 07:00 15:00 23:00 07:00 15:00 23:00 Intake Total 900 ml Balance 900 ml Intake IV Total 900 ml # Voids 2 2 (Kishan Fagan MD R2) Result Diagram: 05/26/17 0500 05/26/17 0500 Objective Remarks GENERAL: Well-developed elderly female lying comfortably in bed. SKIN: No rashes, ecchymoses or lesions. Cool and dry. HEAD: NC/AT EYES: PERRL. EOMI. No conjunctival injection or drainage. CARDIOVASCULAR: NRRR. Normal S1/S2. No MRG RESPIRATORY: CTAB. No crackles or wheezes. GASTROINTESTINAL: Abdomen soft, non-distended, mildly tender over suprapubic region. No hepato-splenomegaly or palpable masses. No rebound or guarding. GENITOURINARY: No CVA tenderness. MUSCULOSKELETAL: Extremities without clubbing, cyanosis, or edema. KNEE: Right knee without evidence of injury or effusion. No erythema. Mildly tender to palpation over distal quadriceps tendons. No evidence of effusion. LCL , MCL, ACL, PCL stable. NEUROLOGICAL: Awake and alert. Cranial nerves II through XII grossly intact. Sensation intact over all dermatomes. Strength 5 out of 5 in all major muscle groups. Normal speech. (Kishan Fagan MD R2) A/P Assessment and Plan 51-year-old female with history of diabetes, orthostatic hypotension, squamous cell carcinoma of the tongue presenting with a urinary tract infection. Treatment as below Discharge Planning Likely in 1-2 days pending clinical improvement (Kishan Fagan MD R2) Attending Attestation Patient seen and examined. Case reviewed and discussed with the resident team. Agree with plan of care as discussed with me and documented in the resident note. on discussion with her, she is doing poorly at home and Ms Arechiga reports DCF was called as her previous boyfriend was helping her and now is not in the picture. She is weak and was interested in thinking about rehab if that was possible. (Felicia Herrera MD) Problem List: (1) UTI (urinary tract infection) Status: Acute Plan: Continue Zosyn Urine culture pending Patient may benefit from prophylactic antibiotic given history of multiple UTIs (2) Failure of outpatient treatment Status: Acute Plan: Status post treatment with Macrobid for UTI - Manage as above (3) Right knee pain Status: Chronic Plan: No evidence of acute process - Toradol every 6 hours 30 mg IV as needed - Tramadol 50 mg every 6 hours as needed for breakthrough pain (4) Weakness Status: Chronic Plan: Likely due to orthostatic hypotension, dysautonomia and acute UTI - PT evaluate and treat - Fall precautions (5) Orthostatic hypotension Status: Chronic Plan: Continue home midodrine (6) DM (diabetes mellitus), type 2, uncontrolled w/neurologic complication Status: Chronic Plan: - Insulin sliding scale low-dose while in hospital - Hold home diabetic medication (7) Chronic foot ulcer Status: Chronic Plan: Wound stable, no evidence of acute infection No leukocytosis - Monitor clinically (8) 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 CODE STATUS: Full code (Kishan Fagan MD R2) Problem Qualifiers (1) UTI (urinary tract infection): Qualified Code: N30.00 - Acute cystitis without hematuria (2) Right knee pain: Qualified Code: M25.561 - Chronic pain of right knee (3) DM (diabetes mellitus), type 2, uncontrolled w/neurologic complication: Qualified Code: E11.42 - Uncontrolled type 2 diabetes mellitus with diabetic polyneuropathy, without long-term current use of insulin Kishan Fagan MD R2 May 26, 2017 09:32 Felicia Herrera MD May 28, 2017 16:58
[2017-05-26 12:00] VITALS: BP 134/66; PULSE 73; RESP 16; TEMP 98.6; O2SAT 99
--- NOTE | 2017-05-26 14:59 | EKG ---
Date Performed: 05/25/2017 Time Performed: 11:54:33 PTAGE: 51 years EKG: Sinus rhythm SEPTAL MYOCARDIAL INFARCTION ABNORMAL ECG PREVIOUS TRACING : 05/04/2017 07.27 Compared to prior tracing no significant change DOCTOR: Usama Ulloa Interpretating Date/Time 05/26/2017 14:56:10
[2017-05-26 16:00] VITALS: BP 123/70; PULSE 83; RESP 16; TEMP 99; O2SAT 16
[2017-05-26] MEDS: ENOXAPARIN SODIUM 40 MG/0.4 ML SYRINGE SQ SCH (17:59)
[2017-05-26] MEDS: traMADol HCL 50 MG TAB PO PRN (19:54)
[2017-05-26] MEDS: ATORVASTATIN 20 MG TAB PO SCH (19:54)
[2017-05-26 20:00] VITALS: BP 118/59; PULSE 75; RESP 18; TEMP 98.2; O2SAT 95
[2017-05-27] VITALS: BP 102/58; PULSE 72; RESP 18; TEMP 98.1; O2SAT 91
[2017-05-27] MEDS: SODIUM CHLOR 0.9% 1000 ML INJ 1,000 ML IV SCH ×3 (00:15→21:47)
[2017-05-27] MEDS: ONDANSETRON HCL 4 MG/2 ML VIAL IV PUSH PRN ×2 (02:23→09:17)
[2017-05-27] MEDS: PIPERACIL-TAZO 4.5 GM PREMIX 100 ML IV SCH ×4 (04:32→22:52)
[2017-05-27] MEDS: INSULIN ASPART SUPPLEMENTAL SCALE SQ SCH ×4 (05:12→21:00)
[2017-05-27 05:57] LABS: AUTOMATED NEUTROPHIL # 3.4 TH/MM3 (1.8-7.7); BASOPHIL % 0.5 % (0.0-2.0); EOSINOPHIL # 0.1 TH/MM3 (0-0.4); EOSINOPHIL % 1.8 % (0.0-4.0); HEMATOCRIT 27.5 % (35.0-46.0); HEMO FLAGS DIFF FINAL; LYMPH % 16.9 % (9.0-44.0); LYMPHOCYTE # 0.8 TH/MM3 (1.0-4.8); MEAN CELL VOLUME 87.7 FL (80.0-100.0); MONO % 8.5 % (0.0-8.0); NEUT % 72.3 % (16.0-70.0); PLATELET COUNT 201 TH/MM3 (150-450); RED BLOOD COUNT 3.14 MIL/MM3 (4.00-5.30); RED CELL DISTRIBUTION WIDTH 14.1 % (11.6-17.2); WHITE BLOOD COUNT 4.6 TH/MM3 (4.0-11.0)
[2017-05-27 08:36] VITALS: BP 92/57; PULSE 78; RESP 18; TEMP 97.2; O2SAT 97
[2017-05-27] MEDS: SODIUM CHLORIDE 0.9% FLUSH 10 ML FLUSH IV FLUSH SCH ×2 (09:00→21:46)
[2017-05-27] MEDS: GABAPENTIN 400 MG CAP PO SCH ×3 (09:16→18:00)
[2017-05-27] MEDS: DOCUSATE SODIUM 50 MG/SENNA 8.6 MG TAB PO SCH ×2 (09:16→21:44)
[2017-05-27] MEDS: MIDODRINE 5 MG TAB PO SCH ×3 (09:17→16:20)
[2017-05-27 12:05] VITALS: BP 118/69; PULSE 78; RESP 20; TEMP 97.3; O2SAT 97
--- NOTE | 2017-05-27 13:52 | HHI.FPPN ---
Subjective Remarks Patient is a 51-year-old female with a history of diabetes, orthostatic hypotension, dysautonomia who presents with a two-week history of lower abdominal pain. Is admitted for treatment of UTI. No acute events overnight. No chest pain shortness of breath or diarrhea. No bowel movement since admission. Continued abdominal pain. However, no new symptoms since yesterday. (Tess Aguiar MD R1) Objective Vitals Vital Signs Date Time Temp Pulse Resp B/P Pulse Ox O2 Delivery O2 Flow Rate FiO2 05/27/17 12:05 97.3 78 20 118/69 97 05/27/17 08:36 97.2 78 18 92/57 97 05/27/17 00:00 98.1 72 18 102/58 91 05/26/17 20:00 98.2 75 18 118/59 95 05/26/17 16:00 99.0 83 16 123/70 16 I/O 05/26/17 05/26/17 05/26/17 05/27/17 05/27/17 05/27/17 07:00 15:00 23:00 07:00 15:00 23:00 Intake Total 900 ml 480 ml 480 ml 800 ml Balance 900 ml 480 ml 480 ml 800 ml Intake Oral 480 ml 480 ml IV Total 900 ml 800 ml # Voids 2 2 2 (Tess Aguiar MD R1) Result Diagram: 05/27/17 0505 05/27/17 0505 Objective Remarks GENERAL: Well-developed elderly female lying comfortably in bed. SKIN: No rashes, ecchymoses or lesions. Cool and dry. HEAD: NC/AT EYES: PERRL. EOMI. No conjunctival injection or drainage. CARDIOVASCULAR: NRRR. Normal S1/S2. No MRG RESPIRATORY: CTAB. No crackles or wheezes. GASTROINTESTINAL: Abdomen soft, non-distended, mildly tender over suprapubic region. No hepato-splenomegaly or palpable masses. No rebound or guarding. GENITOURINARY: No CVA tenderness. MUSCULOSKELETAL: Extremities without clubbing, cyanosis, or edema. KNEE: Right knee without evidence of injury or effusion. No erythema. Mildly tender to palpation over distal quadriceps tendons. No evidence of effusion. LCL , MCL, ACL, PCL stable. NEUROLOGICAL: Awake and alert. No focal deficits. Normal speech. (Tess Aguiar MD R1) A/P Assessment and Plan 51-year-old female with history of diabetes, orthostatic hypotension, squamous cell carcinoma of the tongue presenting with a urinary tract infection. Treatment as below. Discharge Planning Likely in 1-2 days pending clinical improvement (Tess Aguiar MD R1) Attending Attestation Pt. examined and case discussed with resident physicians. I have read the above note and agree with the assessment and plan as discussed with me. I was involved in all medical decision making for this patient. Rivera Ruggiero MD (Rivera Ruggiero MD) Problem List: (1) UTI (urinary tract infection) Status: Acute Plan: Continue Zosyn Urine culture grew mixed carmen, likely contaminant Patient may benefit from prophylactic antibiotic given history of multiple UTIs No electrolyte abnormalities on today's BMP Current infection may be contributing to current nausea and vomiting, will continue to monitor BMPs (2) Failure of outpatient treatment Status: Acute Plan: Status post treatment with Macrobid for UTI - Manage as above (3) Weakness Status: Acute Plan: Likely due to orthostatic hypotension, dysautonomia and acute UTI, likely associated with nausea and vomiting - PT evaluate and treat: Will need PT and rehabilitation at discharge - Fall precautions will increase dose of Midodrine (4) Orthostatic hypotension Status: Chronic Plan: Increased dose of midodrine (5) Right knee pain Status: Chronic Plan: No evidence of acute process - Toradol every 6 hours 30 mg IV as needed - Tramadol 50 mg every 6 hours as needed for breakthrough pain (6) DM (diabetes mellitus), type 2, uncontrolled w/neurologic complication Status: Chronic Plan: - Insulin sliding scale low-dose while in hospital - Hold home diabetic medication (7) Chronic foot ulcer Status: Chronic Plan: Wound stable, no evidence of acute infection No leukocytosis - Monitor clinically (8) 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 CODE STATUS: Full code (Tess Aguiar MD R1) Problem Qualifiers (1) UTI (urinary tract infection): Qualified Code: N30.00 - Acute cystitis without hematuria (2) Right knee pain: Qualified Code: M25.561 - Chronic pain of right knee (3) DM (diabetes mellitus), type 2, uncontrolled w/neurologic complication: Qualified Code: E11.42 - Uncontrolled type 2 diabetes mellitus with diabetic polyneuropathy, without long-term current use of insulin Tess Aguiar MD R1 May 27, 2017 13:52 Rivera Ruggiero MD May 27, 2017 16:17
[2017-05-27 16:11] VITALS: BP 114/64; PULSE 88; RESP 18; TEMP 98.5; O2SAT 98
[2017-05-27] MEDS: traMADol HCL 50 MG TAB PO PRN ×2 (16:20→21:45)
[2017-05-27] MEDS: ENOXAPARIN SODIUM 40 MG/0.4 ML SYRINGE SQ SCH (17:06)
[2017-05-27 20:33] VITALS: BP 160/82; PULSE 67; RESP 18; TEMP 97.7; O2SAT 99
[2017-05-27] MEDS: ATORVASTATIN 20 MG TAB PO SCH (21:44)
[2017-05-28 00:43] VITALS: BP 115/67; PULSE 63; RESP 17; TEMP 98.2; O2SAT 95
[2017-05-28] MEDS: PIPERACIL-TAZO 4.5 GM PREMIX 100 ML IV SCH ×4 (03:40→20:52)
[2017-05-28] MEDS: MIDODRINE 5 MG TAB PO SCH ×3 (05:47→16:29)
[2017-05-28] MEDS: SODIUM CHLOR 0.9% 1000 ML INJ 1,000 ML IV SCH ×3 (05:48→16:15)
[2017-05-28] MEDS: ONDANSETRON HCL 4 MG/2 ML VIAL IV PUSH PRN ×2 (05:48→20:52)
[2017-05-28] MEDS: INSULIN ASPART SUPPLEMENTAL SCALE SQ SCH ×4 (06:15→20:09)
[2017-05-28 08:07] VITALS: BP 119/69; PULSE 76; RESP 18; TEMP 97.2; O2SAT 100
[2017-05-28 08:22] LABS: HEMATOCRIT 28.6 % (35.0-46.0); MEAN CELL VOLUME 88.6 FL (80.0-100.0); MEAN CORPUSCULAR HEMOGLOBIN 28.8 PG (27.0-34.0); MEAN CORPUSCULAR HGB CONC 32.5 % (32.0-36.0); PLATELET COUNT 236 TH/MM3 (150-450); RED BLOOD COUNT 3.23 MIL/MM3 (4.00-5.30); RED CELL DISTRIBUTION WIDTH 13.8 % (11.6-17.2); REVIEW FLAG FINAL; WHITE BLOOD COUNT 5.1 TH/MM3 (4.0-11.0)
[2017-05-28 08:49] LABS: ANION GAP 6 MEQ/L (5-15); AST (GOT) 8 U/L (15-37); BICARBONATE 29.8 MEQ/L (21.0-32.0); BLOOD UREA NITROGEN 5 MG/DL (7-18); CHLORIDE 103 MEQ/L (98-107); GLOMERULAR FILTRATION RATE 120 ML/MIN (>89); POTASSIUM 3.6 MEQ/L (3.5-5.1); SODIUM (NA) 139 MEQ/L (136-145)
[2017-05-28 08:50] LABS: ALT (GPT) 10 U/L (10-53)
[2017-05-28 08:53] LABS: ALKALINE PHOSPHATASE 63 U/L (45-117); TOTAL BILIRUBIN ADULT 0.4 MG/DL (0.2-1.0)
[2017-05-28] MEDS: DOCUSATE SODIUM 50 MG/SENNA 8.6 MG TAB PO SCH ×2 (09:00→20:51)
[2017-05-28] MEDS: SODIUM CHLORIDE 0.9% FLUSH 10 ML FLUSH IV FLUSH SCH ×2 (09:00→20:51)
[2017-05-28] MEDS: GABAPENTIN 400 MG CAP PO SCH ×3 (09:48→18:10)
--- NOTE | 2017-05-28 11:15 | HHI.FPPN ---
Subjective Remarks No acute events overnight. Patient states she has been having nausea and vomiting. States Zofran helps. No pain. Vitals stable. Able to keep soup down. No chest pain, SOB, fevers, abdominal pain, diarrhea/constipation. (Tess Aguiar MD R1) Objective Vitals Vital Signs Date Time Temp Pulse Resp B/P Pulse Ox O2 Delivery O2 Flow Rate FiO2 05/28/17 08:07 97.2 76 18 119/69 100 05/28/17 00:43 98.2 63 17 115/67 95 05/27/17 22:50 18 05/27/17 20:33 97.7 67 18 160/82 99 05/27/17 16:11 98.5 88 18 114/64 98 05/27/17 12:05 97.3 78 20 118/69 97 I/O 05/27/17 05/27/17 05/27/17 05/28/17 05/28/17 05/28/17 07:00 15:00 23:00 07:00 15:00 23:00 Intake Total 800 ml 960 ml 800 ml Output Total 20 ml Balance 800 ml 960 ml 780 ml Intake Oral 960 ml IV Total 800 ml 800 ml Emesis 20 ml # Voids 2 1 (Tess Aguiar MD R1) Result Diagram: 05/28/17 0732 05/28/17 0732 Imaging Last 72 hours Impressions Knee X-Ray 05/25/17 114 Signed Impressions: Service Date/Time: May 12:09 - CONCLUSION: Small to moderate joint effusion. No acute bony abnormality or significant arthropathy. Uriel Boykin MD Head CT 05/25/17 114 Signed Impressions: Service Date/Time: May 13:34 - CONCLUSION: Normal examination. Piotr Steward MD Chest X-Ray 05/25/17 114 Signed Impressions: Service Date/Time: May 12:16 - CONCLUSION: Pacer and Infusaport stable. Lungs are clear. Piotr Steward MD Objective Remarks GENERAL: Well-developed elderly female lying comfortably in bed. SKIN: No rashes, ecchymoses or lesions. Cool and dry. HEAD: NC/AT EYES: PERRL. EOMI. No conjunctival injection or drainage. CARDIOVASCULAR: NRRR. Normal S1/S2. No MRG RESPIRATORY: CTAB. No crackles or wheezes. GASTROINTESTINAL: Abdomen soft, non-distended, mildly tender over suprapubic region. No hepato-splenomegaly or palpable masses. No rebound or guarding. GENITOURINARY: No CVA tenderness. MUSCULOSKELETAL: Extremities without clubbing, cyanosis, or edema. KNEE: Right knee without evidence of injury or effusion. No erythema. Mildly tender to palpation over distal quadriceps tendons. No evidence of effusion. LCL , MCL, ACL, PCL stable. NEUROLOGICAL: Awake and alert. No focal deficits. Normal speech. (Tess Aguiar MD R1) A/P Assessment and Plan 51-year-old female with history of recurrent UTIs, diabetes, orthostatic hypotension, squamous cell carcinoma of the tongue presenting with lower abdominal pain and dysuria. No positive UA findings. Urine culture showed only contaminant. Zosyn discon't (day #3). Symptoms on admission may have been due to residual bladder irritation after Macrobid treatment. Advise f/u with PCP. Will place patient on prophylactic nitrofurantoin to continue after discharge. Discharge Planning D/C likely today. Will speak to case management about placement at [facility]. Will need to get f/u CT scan in 3 months for lung density seen on XR at admission. F/u pelvic U/S in 4-6 weeks for thickened endometrium seen on CT abdomen and pelvis. (Tess Aguiar MD R1) Attending Attestation Pt. examined and case discussed with resident physicians. I have read the above note and agree with the assessment and plan as discussed with me. I was involved in all medical decision making for this patient. Rivera Ruggiero MD (Rivera Ruggiero MD) Problem List: (1) Dysuria Status: Acute Plan: Presented with lower abdominal discomfort associated with some mild dysuria and urinary frequency. On Zosyn day #3 for empiric treatment due to hx of DM and recurrent UTIs. U/A negative, urine culture grew mixed carmen, likely contaminant Discon't Zosyn today Start prophy nitrofurantoin 50 mg daily Ordered Pyridium 200 mg BID for dysuria BMP stable (2) Weakness Status: Chronic Plan: Likely due to orthostatic hypotension and dysautonomia; likely associated with nausea and vomiting - Will need PT and rehabilitation at discharge - Fall precautions advised to continue taking Zofran PRN (3) Orthostatic hypotension Status: Chronic Plan: - Con't midodrine 20 mg total/day (4) Right knee pain Status: Chronic Plan: No evidence of acute process - Toradol every 6 hours 30 mg IV as needed - Tramadol 50 mg every 6 hours as needed for breakthrough pain (5) DM (diabetes mellitus), type 2, uncontrolled w/neurologic complication Status: Chronic Plan: - Insulin sliding scale low-dose while in hospital - Hold home diabetic medication (6) Chronic foot ulcer Status: Chronic Plan: Wound stable, no evidence of acute infection No leukocytosis - Monitor clinically (7) 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 CODE STATUS: Full code (Tess Aguiar MD R1) Problem Qualifiers (1) Right knee pain: Qualified Code: M25.561 - Chronic pain of right knee (2) DM (diabetes mellitus), type 2, uncontrolled w/neurologic complication: Qualified Code: E11.42 - Uncontrolled type 2 diabetes mellitus with diabetic polyneuropathy, without long-term current use of insulin Tess Aguiar MD R1 May 28, 2017 11:15 Rivera Ruggiero MD May 28, 2017 18:31
[2017-05-28 12:31] VITALS: BP 99/64; PULSE 86; RESP 17; TEMP 98.1; O2SAT 100
[2017-05-28] MEDS: NITROFURANTOIN MONOHYD MACROCR 100 MG CAP PO SCH (13:14)
[2017-05-28 15:57] VITALS: BP 119/68; PULSE 77; RESP 18; TEMP 97.9; O2SAT 98
[2017-05-28] MEDS: traMADol HCL 50 MG TAB PO PRN (17:14)
[2017-05-28] MEDS: ENOXAPARIN SODIUM 40 MG/0.4 ML SYRINGE SQ SCH (17:14)
[2017-05-28] MEDS: ATORVASTATIN 20 MG TAB PO SCH (20:51)
[2017-05-28] MEDS: PHENAZOPYRIDINE HCL 200 MG TAB PO SCH (20:51)
[2017-05-28 21:02] VITALS: BP 110/65; PULSE 79; RESP 20; TEMP 96.7; O2SAT 100
[2017-05-29] MEDS: traMADol HCL 50 MG TAB PO PRN ×2 (00:02→17:43)
[2017-05-29 00:42] VITALS: BP 147/79; PULSE 81; RESP 18; TEMP 97.7; O2SAT 97
[2017-05-29] MEDS: SODIUM CHLOR 0.9% 1000 ML INJ 1,000 ML IV SCH ×3 (02:15→21:37)
[2017-05-29] MEDS: PIPERACIL-TAZO 4.5 GM PREMIX 100 ML IV SCH ×2 (03:21→08:46)
[2017-05-29] MEDS: ONDANSETRON HCL 4 MG/2 ML VIAL IV PUSH PRN (03:22)
[2017-05-29 05:24] VITALS: BP 117/64; PULSE 74; RESP 18; TEMP 98.2; O2SAT 97
[2017-05-29] MEDS: INSULIN ASPART SUPPLEMENTAL SCALE SQ SCH ×4 (06:36→21:00)
[2017-05-29] MEDS: MIDODRINE 5 MG TAB PO SCH ×3 (06:39→17:39)
[2017-05-29 08:01] VITALS: BP 119/77; PULSE 74; RESP 19; TEMP 98.1; O2SAT 95
[2017-05-29] MEDS: NITROFURANTOIN MONOHYD MACROCR 100 MG CAP PO SCH (08:44)
[2017-05-29] MEDS: DOCUSATE SODIUM 50 MG/SENNA 8.6 MG TAB PO SCH ×2 (08:45→21:36)
[2017-05-29] MEDS: GABAPENTIN 400 MG CAP PO SCH ×3 (08:45→17:39)
[2017-05-29] MEDS: SODIUM CHLORIDE 0.9% FLUSH 10 ML FLUSH IV FLUSH SCH ×2 (08:46→21:37)
[2017-05-29] MEDS: PHENAZOPYRIDINE HCL 200 MG TAB PO SCH ×2 (08:46→21:36)
--- NOTE | 2017-05-29 09:53 | HHI.FPPN ---
Subjective Remarks No acute events overnight. Pt sitting up in bed and eating breakfast. Pt ready to go to rehab. Afebrile. No abdominal pain, N/V, problems with urination. No complaints this AM. (Verona De Jesus MD R1) Objective Vitals Vital Signs Date Time Temp Pulse Resp B/P Pulse Ox O2 Delivery O2 Flow Rate FiO2 05/29/17 08:01 98.1 74 19 119/77 95 05/29/17 05:24 98.2 74 18 117/64 97 05/29/17 01:02 18 05/29/17 00:42 97.7 81 18 147/79 97 05/28/17 21:02 96.7 79 20 110/65 100 05/28/17 15:57 97.9 77 18 119/68 98 05/28/17 12:31 98.1 86 17 99/64 100 I/O 05/28/17 05/28/17 05/28/17 05/29/17 05/29/17 05/29/17 07:00 15:00 23:00 07:00 15:00 23:00 Intake Total 720 ml 1244 ml Balance 720 ml 1244 ml Intake Oral 720 ml 120 ml IV Total 1124 ml # Voids 2 1 2 # Bowel Movements 1 1 (Verona De Jesus MD R1) Result Diagram: 05/28/1732 05/28/17 0732 Objective Remarks GENERAL: Well-developed elderly female lying comfortably in bed. SKIN: No rashes, ecchymoses or lesions. Cool and dry. HEAD: NC/AT EYES: PERRL. EOMI. No conjunctival injection or drainage. CARDIOVASCULAR: NRRR. Normal S1/S2. No MRG RESPIRATORY: CTAB. No crackles or wheezes. GASTROINTESTINAL: Abdomen soft, non-distended. No hepato-splenomegaly or palpable masses. No rebound or guarding. GENITOURINARY: No CVA tenderness. MUSCULOSKELETAL: Extremities without clubbing, cyanosis, or edema. KNEE: Right knee without evidence of injury or effusion. No erythema. Mildly tender to palpation over distal quadriceps tendons. No evidence of effusion. LCL , MCL, ACL, PCL stable. NEUROLOGICAL: Awake and alert. No focal deficits. Normal speech. (Verona De Jesus MD R1) A/P Assessment and Plan 51-year-old female with history of recurrent UTIs, diabetes, orthostatic hypotension, squamous cell carcinoma of the tongue presenting with lower abdominal pain and dysuria. No positive UA findings. Urine culture showed only contaminant. . Symptoms on admission may have been due to residual bladder irritation after Macrobid treatment. Advise f/u with PCP. Pt placed on prophylactic nitrofurantoin and Pyridium, to continue after discharge. Pt was denied at [facility] for rehab. Pt awaiting case management for placement before discharge. Discharge Planning D/C likely today. Will speak to case management about placement at [facility]. Will need to get f/u CT scan in 3 months for lung density seen on XR at admission. F/u pelvic U/S in 4-6 weeks for thickened endometrium seen on CT abdomen and pelvis. (Verona De Jesus MD R1) Attending Attestation Pt. examined and case discussed with resident physicians I have read the above note and agree with the assessment/plan as discussed with me I was involved in all medical decision making for this patient Rivera Ruggiero MD (Rivera Ruggiero MD) Problem List: (1) Dysuria Status: Acute Plan: Presented with lower abdominal discomfort associated with some mild dysuria and urinary frequency. U/A negative, urine culture grew mixed carmen, likely contaminant Pt was placed on Zosyn for recurrent UTIs, zosyn was discontinued yesterday 05/28 Continue prophy nitrofurantoin 50 mg daily Continue Pyridium 200 mg BID for dysuria BMP stable (2) Weakness Status: Chronic Plan: Likely due to orthostatic hypotension and dysautonomia; likely associated with nausea and vomiting - Will need PT and rehabilitation at discharge - Fall precautions advised to continue taking Zofran PRN (3) Orthostatic hypotension Status: Chronic Plan: - Con't midodrine 20 mg total/day (4) Right knee pain Status: Chronic Plan: No evidence of acute process - Toradol every 6 hours 30 mg IV as needed - Tramadol 50 mg every 6 hours as needed for breakthrough pain (5) DM (diabetes mellitus), type 2, uncontrolled w/neurologic complication Status: Chronic Plan: - Insulin sliding scale low-dose while in hospital - Hold home diabetic medication (6) Chronic foot ulcer Status: Chronic Plan: Wound stable, no evidence of acute infection No leukocytosis - Monitor clinically (7) 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 CODE STATUS: Full code (Verona De Jesus MD R1) Problem Qualifiers (1) Right knee pain: Qualified Code: M25.561 - Chronic pain of right knee (2) DM (diabetes mellitus), type 2, uncontrolled w/neurologic complication: Qualified Code: E11.42 - Uncontrolled type 2 diabetes mellitus with diabetic polyneuropathy, without long-term current use of insulin Verona De Jesus MD R1 May 29, 2017 09:53 Rivera Ruggiero MD May 29, 2017 15:59
[2017-05-29 12:00] VITALS: BP 144/74; PULSE 86; RESP 19; TEMP 98; O2SAT 92
--- NOTE | 2017-05-29 14:26 | HHI.DCPOC ---
Discharge Care Plan Diagnosis: (1) Dysuria (2) Weakness Goals to Promote Your Health * To prevent worsening of your condition and complications, continue physical therapy at your rehabilitation center and follow up with your primary care physician as directed. Directions to Meet Your Goals Take your medications as prescribed Follow your dietary instruction Follow activity as directed Keep your appointments as scheduled Take your immunizations and boosters as scheduled If your symptoms worsen call your PCP, if no PCP go to Urgent Care Center or Emergency Room Smoking is Dangerous to Your Health. Avoid second hand smoke Call the 24-hour hour crisis hotline for domestic abuse at Tashi Lindsay MD R1 May 29, 2017 14:26
[2017-05-29] MEDS ORDERED: MIDO5TAB PO ×2 (14:30)
[2017-05-29] MEDS ORDERED: PHEN-430 PO (14:30)
[2017-05-29] MEDS ORDERED: NITR100C4 PO (14:30)
[2017-05-29 16:00] VITALS: BP 131/74; PULSE 81; RESP 18; TEMP 97.9; O2SAT 96
[2017-05-29] MEDS: ENOXAPARIN SODIUM 40 MG/0.4 ML SYRINGE SQ SCH (17:39)
[2017-05-29 21:11] VITALS: BP 145/75; PULSE 80; RESP 18; TEMP 99; O2SAT 95
[2017-05-29] MEDS: ATORVASTATIN 20 MG TAB PO SCH (21:36)
[2017-05-30 02:13] VITALS: BP 98/58; PULSE 82; RESP 19; TEMP 97.9; O2SAT 93
[2017-05-30 05:49] VITALS: BP 139/70; PULSE 88; RESP 20; TEMP 99.6; O2SAT 95
[2017-05-30] MEDS: INSULIN ASPART SUPPLEMENTAL SCALE SQ SCH ×2 (07:00→11:00)
[2017-05-30] MEDS: MIDODRINE 5 MG TAB PO SCH ×2 (07:33→13:20)
[2017-05-30] MEDS: traMADol HCL 50 MG TAB PO PRN (07:34)
[2017-05-30] MEDS: SODIUM CHLOR 0.9% 1000 ML INJ 1,000 ML IV SCH (08:44)
[2017-05-30] MEDS: SODIUM CHLORIDE 0.9% FLUSH 10 ML FLUSH IV FLUSH SCH (08:47)
[2017-05-30 08:53] VITALS: BP 123/71; PULSE 86; RESP 17; TEMP 98.6; O2SAT 96
[2017-05-30] MEDS: GABAPENTIN 400 MG CAP PO SCH ×2 (09:19→13:21)
[2017-05-30] MEDS: NITROFURANTOIN MONOHYD MACROCR 100 MG CAP PO SCH (09:19)
[2017-05-30] MEDS: PHENAZOPYRIDINE HCL 200 MG TAB PO SCH (09:20)
[2017-05-30] MEDS: DOCUSATE SODIUM 50 MG/SENNA 8.6 MG TAB PO SCH (09:20)
--- NOTE | 2017-05-30 09:24 | HHI.FPPN ---
Subjective Remarks No acute events overnight. Patient sitting up in bed this morning eating breakfast. She is without complaints. Denies abdominal or suprapubic pain. No issues voiding. Denies fevers, CP, SOB. She states she would like to continue physical therapy. (Tashi Lindsay MD R1) Objective Vitals Vital Signs Date Time Temp Pulse Resp B/P Pulse Ox O2 Delivery O2 Flow Rate FiO2 05/30/17 08:53 98.6 86 17 123/71 96 05/30/17 05:49 99.6 88 20 139/70 95 05/30/17 02:13 97.9 82 19 98/58 93 05/29/17 21:11 99.0 80 18 145/75 95 05/29/17 16:00 97.9 81 18 131/74 96 05/29/17 12:00 98.0 86 19 144/74 92 I/O 05/29/17 05/29/17 05/29/17 05/30/17 05/30/17 05/30/17 07:00 15:00 23:00 07:00 15:00 23:00 Intake Total 1244 ml 1280 ml 1340 ml Balance 1244 ml 1280 ml 1340 ml Intake Oral 120 ml 480 ml IV Total 1124 ml 800 ml 1340 ml # Voids 2 4 2 # Bowel Movements 1 3 (Tashi Lindsay MD R1) Result Diagram: 05/28/17 0732 05/28/17 0732 Objective Remarks GENERAL: Well-developed elderly female lying comfortably in bed. SKIN: No rashes, ecchymoses or lesions. Cool and dry. HEAD: NC/AT EYES: EOMI. No conjunctival injection or drainage. CARDIOVASCULAR: NRRR. Normal S1/S2. No MRG RESPIRATORY: CTAB. No crackles or wheezes. GASTROINTESTINAL: Abdomen soft, non-distended. No hepato-splenomegaly or palpable masses. No rebound or guarding. GENITOURINARY: No CVA tenderness. MUSCULOSKELETAL: Extremities without clubbing, cyanosis, or edema. NEUROLOGICAL: Awake and alert. No focal deficits. Normal speech. (Tashi Lindsay MD R1) A/P Assessment and Plan 51-year-old female with history of recurrent UTIs, diabetes, orthostatic hypotension, squamous cell carcinoma of the tongue presenting with lower abdominal pain and dysuria. No positive UA findings. Urine culture showed only contaminant. Symptoms on admission may have been due to residual bladder irritation after Macrobid treatment. Advise f/u with PCP. Pt placed on prophylactic nitrofurantoin and Pyridium, to continue after discharge. Pt was denied at [facility] for rehab. Pt awaiting case management for placement before discharge. Discharge Planning Medically stable for discharge today. Patient may be stable for discharge home with home health care physical therapy. Will need to get f/u CT scan in 3 months for lung density seen on XR at admission. F/u pelvic U/S in 4-6 weeks for thickened endometrium seen on CT abdomen and pelvis. (Tashi Lindsay MD R1) Attending Attestation Patient examined and case discussed with resident physicians I have read the above note and agree with the assessment/plan as discussed with me I was involved in all medical decision making for this patient Rivera Ruggiero M.D. (Rivera Ruggiero MD) Problem List: (1) Dysuria Status: Acute Plan: Presented with lower abdominal discomfort associated with some mild dysuria and urinary frequency. U/A negative, urine culture grew mixed carmen, likely contaminant Pt was placed on Zosyn for recurrent UTIs, zosyn was discontinued 05/28 Continue prophy nitrofurantoin 50 mg daily Continue Pyridium 200 mg BID for dysuria (2) Weakness Status: Chronic Plan: Likely due to orthostatic hypotension and dysautonomia; likely associated with nausea and vomiting - Will need PT and rehabilitation at discharge - Fall precautions advised to continue taking Zofran PRN (3) Orthostatic hypotension Status: Chronic Plan: - Con't midodrine 20 mg total/day (4) Right knee pain Status: Chronic Plan: No evidence of acute process - Toradol every 6 hours 30 mg IV as needed - Tramadol 50 mg every 6 hours as needed for breakthrough pain (5) DM (diabetes mellitus), type 2, uncontrolled w/neurologic complication Status: Chronic Plan: - Insulin sliding scale low-dose while in hospital - Hold home diabetic medication (6) Chronic foot ulcer Status: Chronic Plan: Wound stable, no evidence of acute infection No leukocytosis - Monitor clinically (7) 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 CODE STATUS: Full code (Tashi Lindsay MD R1) Problem Qualifiers (1) Right knee pain: Qualified Code: M25.561 - Chronic pain of right knee (2) DM (diabetes mellitus), type 2, uncontrolled w/neurologic complication: Qualified Code: E11.42 - Uncontrolled type 2 diabetes mellitus with diabetic polyneuropathy, without long-term current use of insulin Tashi Lindsay MD R1 May 30, 2017 09:24 Rivera Ruggiero MD May 30, 2017 15:22
--- NOTE | 2017-05-30 12:00 | HHI.FF ---
Face to Face Verification Diagnosis: (1) Weakness Physical Therapy Order: Evaluate and Treat, Improve ambulation, Strength and gait training Home Health Nursing Order: Nursing assessment with vital signs I have seen patient Jaqueline Arechiga on 05/30/17. My clinical findings support the need for the requested home health care services because: Ltd mobility - disease progression Deconditioned w/ increased weakness I certify that my clinical findings support that this patient is homebound because: Unsteady gait/balance Tashi Lindsay MD R1 May 30, 2017 12:00
[2017-05-30 12:32] VITALS: BP 158/80; PULSE 79; RESP 17; TEMP 98.3; O2SAT 94
[2017-05-30] MEDS ORDERED: SODIUM CHLORIDE 0.9% FLUSH 5 ML FLUSH IV FLUSH ONE (14:45)
--- NOTE | 2017-05-30 15:34 | HHI.DS ---
Discharge Summary Admission Date May 25, 2017 at 17:06 Discharge Date: May 30, 2017 Admitting Diagnosis UTI, failed outpatient treatment (1) Dysuria Diagnosis: Principal Plan: Presented with lower abdominal discomfort associated with some mild dysuria and urinary frequency. U/A negative, urine culture grew mixed carmen, likely contaminant Pt was placed on Zosyn for recurrent UTIs, zosyn was discontinued 05/28 Continue prophy nitrofurantoin 50 mg daily Continue Pyridium 200 mg BID for dysuria (2) Weakness Diagnosis: Secondary Plan: Likely due to orthostatic hypotension and dysautonomia; likely associated with nausea and vomiting - Will need PT and rehabilitation at discharge - Fall precautions advised to continue taking Zofran PRN (3) Orthostatic hypotension Diagnosis: Secondary Plan: - Con't midodrine 20 mg total/day (4) Right knee pain Diagnosis: Secondary Plan: No evidence of acute process - Toradol every 6 hours 30 mg IV as needed - Tramadol 50 mg every 6 hours as needed for breakthrough pain (5) DM (diabetes mellitus), type 2, uncontrolled w/neurologic complication Diagnosis: Secondary Plan: - Insulin sliding scale low-dose while in hospital - Hold home diabetic medication (6) Chronic foot ulcer Diagnosis: Secondary Plan: Wound stable, no evidence of acute infection No leukocytosis - Monitor clinically (7) Squamous cell carcinoma of oropharynx Diagnosis: Secondary Plan: Stable symptomatology - Glucerna supplementation (8) Lung density on x-ray Diagnosis: Secondary Plan: CT of abdomen and pelvis showing incidental lung density to Center by 1.3 cm - Recommended follow-up in [address] (9) Thickened endometrium Diagnosis: Secondary Plan: CT abdomen and pelvis showing prominent endometrium - Recommended follow-up pelvic sonogram in 4-6 weeks (10) FEN Diagnosis: Secondary Plan: Fluids: Tolerating by mouth Electrolytes: Monitor and replete as needed Nutrition: Diabetic Diet DVT: Lovenox 40 mg subcutaneous every day . 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 Regarding her weakness and lightheadedness, the symptoms are near her baseline and worsened with position changes due to her orthostatic hypotension. She denies chest pains or shortness of breath. Weakness is diffuse and not focal. 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 Regarding her nausea and vomiting, she has only had a few episodes in the last several weeks. She has Zofran at home which helps her with this symptom. Regarding her lower abdominal discomfort, it is associated with some mild dysuria and urinary frequency. No fevers or chills. Recently treated for urinary tract infection with Macrobid, per patient she completed a course and has 1 dose left. CBC/BMP: 05/28/17 0732 05/28/17 0732 Significant Findings Laboratory Tests Test 05/28/17 07:32 Red Blood Count 3.23 MIL/MM3 (4.00-5.30) Hemoglobin 9.3 GM/DL (11.6-15.3) Hematocrit 28.6 % (35.0-46.0) Blood Urea Nitrogen 5 MG/DL (7-18) Random Glucose 134 MG/DL (74-106) Aspartate Amino Transf 8 U/L (15-37) (AST/SGOT) Total Protein 6.2 GM/DL (6.4-8.2) Albumin 2.5 GM/DL (3.4-5.0) PE at Discharge GENERAL: Well-developed elderly female lying comfortably in bed. SKIN: No rashes, ecchymoses or lesions. Cool and dry. HEAD: NC/AT EYES: EOMI. No conjunctival injection or drainage. CARDIOVASCULAR: NRRR. Normal S1/S2. No MRG RESPIRATORY: CTAB. No crackles or wheezes. GASTROINTESTINAL: Abdomen soft, non-distended. No hepato-splenomegaly or palpable masses. No rebound or guarding. GENITOURINARY: No CVA tenderness. MUSCULOSKELETAL: Extremities without clubbing, cyanosis, or edema. NEUROLOGICAL: Awake and alert. No focal deficits. Normal speech. Pt Condition on Discharge: Stable Discharge Disposition: Disch w/ Home Health Serv Discharge Instructions DIET: Follow Instructions for: Diabetic Diet Activities you can perform: Weight Bearing as Jennifer Other Activity Instructions: Continue working with physical therapy at home Follow up Referrals: PCP Follow-up - 3-5 Days New Orders: CT THORAX W CONTRAST (CHEST) - 3 Months US PELVIS COMP W/TRANSVAGINAL - 4 Weeks New Medications: Midodrine (Midodrine) 5 Mg Tab 10 MG PO DAILY@0700 #30 TAB Midodrine (Midodrine) 5 Mg Tab 5 MG PO BID@12,17 #60 TAB Nitrofurantoin Monohydrate Macrocrystals (Nitrofurantoin Monohydrate Macrocrystals) 100 Mg Cap 50 MG PO DAILY #30 CAP Phenazopyridine (Phenazopyridine) 200 Mg Tab 200 MG PO BID #60 TAB Continued Medications: Atorvastatin (Atorvastatin) 20 Mg Tab 20 MG PO HS Cholesterol Management #30 Ref 5 TAB Fluticasone-Salmeterol Inh (Advair Diskus Inh) 100-50 Mcg/Blist Aer 1 PUFF INH BID Rinse mouth after use. Asthma Management #1 Ref 0 INHALER Gabapentin (Gabapentin) 400 Mg Cap 400 MG PO TID #90 Ref 11 CAP Glipizide ER (Glipizide ER) 5 Mg Callie 5 MG PO DAILY Take with breakfast or first main meal of the day. Blood Sugar Management #30 Ref 2 TAB Ketorolac (Ketorolac) 10 Mg Tab 10 MG PO TID PRN Pain Management #15 Ref 0 TAB Sitagliptin (Januvia) 100 Mg Tab 100 MG PO DAILY Blood Sugar Management #30 Ref 5 TAB Sodium Chloride (Sodium Chloride) 1 Gm Tab 1 GM PO DAILY Electrolyte Replacement Ref 0 TAB Discontinued Medications: Midodrine (Midodrine) 5 Mg Tab 5 MG PO TID Control Low Blood Pressure #90 Ref 11 TAB Ondansetron HCl (Ondansetron HCl) 4 Mg Tab 1 TAB PO Q6HR PRN NAUSEA #30 Ref 3 TAB Tashi Lindsay MD R1 May 30, 2017 15:34
[2017-05-31] MEDS ORDERED: NITR1CAP37 PO (16:13)
[2017-05-31] MEDS ORDERED: MIDO5TAB PO (16:13)
== END 2017-05-30 15:18 | disposition home health service (06) | DRG 690 ==
LOC: NEPE 11:18 → NEDA 14:15 → OBSVTOIN 17:06 → N05B 22:53
PROVIDERS: ADMIT Family Medicine; ATTEND Family Medicine
DX: N39.0 Urinary tract infection, site not specified (principal); E11.42 Type 2 diabetes mellitus with diabetic polyneuropathy; E11.621 Type 2 diabetes mellitus with foot ulcer; J98.4 Other disorders of lung; K31.84 Gastroparesis; E11.65 Type 2 diabetes mellitus with hyperglycemia; E11.49 Type 2 diabetes mellitus with other diabetic neurological complication; Z79.84 Long term (current) use of oral hypoglycemic drugs; I95.1 Orthostatic hypotension; Z87.440 Personal history of urinary (tract) infections; G90.1 Familial dysautonomia [Riley-Day]; M25.561 Pain in right knee; L97.509 Non-pressure chronic ulcer of other part of unspecified foot with unspecified severity; C10.9 Malignant neoplasm of oropharynx, unspecified; R93.8 Abnormal findings on diagnostic imaging of other specified body structures; B19.20 Unspecified viral hepatitis C without hepatic coma; Z95.0 Presence of cardiac pacemaker; Z87.891 Personal history of nicotine dependence; J44.9 Chronic obstructive pulmonary disease, unspecified; I73.9 Peripheral vascular disease, unspecified; E78.5 Hyperlipidemia, unspecified
CPT/HCPCS: 70450; 71010; 73564; 74177; 80048; 80053; 80307; 81001; 82550; 82948; 83605; 84484; 85025; 85027; 85610; 85730; 87040; 87086; 93005; J1642; J1650; J1815; J2405; J2543; J7030; Q9967

== ENCOUNTER 2017-06-19 10:10 | Emergency (ER) | payer MEDICARE, MEDICAID ==
[~2017-06-19] VITALS: Ht 172.7 cm; Wt 70.0 kg
[~2017-06-19 10:10] MED LIST changes: -DESIOIN3 TOPICAL; +DICL1CAP3 PO; -KETO10 PO; +LOPE-1 PO; +NITR1CAP37 PO; -ONDA4TAB6 PO; +SODI1TAB PO
[2017-06-19 10:15] VITALS: BP 98/54; PULSE 88; RESP 16; TEMP 99.2; O2SAT 100
--- NOTE | 2017-06-19 11:13 | PD ---
HPI . diarrhea since this morning Chief Complaint: Abdominal Pain Time Seen by Provider: 11:13 Travel History International Travel<30 days: No Contact w/Intl Traveler<30days: No Traveled to known affect area: No History of Present Illness HPI 51-year-old female with past medical history significant for hypertension, diabetes, hepatitis C, COPD and possible throat cancer here with complaints of diarrhea since this morning. Patient said she had 3 episodes of liquid stool. She admitted to some diffuse abdominal pain, but on examination she says it is all gone. Her only complaint is that she is having loose stools. She's had one bowel movement since she's been here in the emergency department. She denies any new medicines or new food products. Denies fever or chills. She has no other complaints. PFSH Past Medical History Hx Anticoagulant Therapy: No Asthma: Yes Atrial Fibrillation: Yes Cancer: Yes (throat) Chemotherapy: Yes Chest Pain: Yes COPD: Yes Cerebrovascular Accident: Yes Diabetes: Yes Diminished Hearing: No Gastrointestinal Disorders: Yes (esophagitis, gastritis, pancreantitis, HEP C) Headaches: Yes Hepatitis: Yes (HEP C) Heparin Induced Thrombocytopen: No Hypertension: Yes Implanted Vascular Access Dvce: Yes (PORT R CHEST, PACEMAKER L CHEST) Kidney Stones: Yes Neurologic: Yes (diabetic peripheral neuropathy) Psychiatric: No Reproductive: No Integumentary: Yes (ulcer under rt great toe) Immunizations Current: Yes Migraines: Yes Radiation Therapy: Yes (last done on 11/18/16) Triglycerides - High: Yes PNEUMOCCOCAL Vaccine (Year): 2 Menopausal: Yes : 3 Para: 2 Miscarriage: 1 Past Surgical History Appendectomy: Yes Body Medical Devices: PACEMAKER; LEG STENT; PORT PLACED Cardiac Surgery: Yes (pacemaker, lt femoral stent) Section: Yes (x1) Cholecystectomy: Yes Pacemaker: Yes (rt chest) Tonsillectomy: Yes Social History Alcohol Use: No Tobacco Use: No Substance Use: Yes (2 CUPS PER DAY) Allergies-Medications (Allergen,Severity, Reaction): Coded Allergies: Ultram (Verified Allergy, Intermediate, Rash, 06/05/17) Compazine (Verified Adverse Reaction, Severe, ANXIETY, 06/05/17) ANXIETY MRI PRECAUTION (Verified Adverse Reaction, Severe, PACEMAKER IS NOT A BIOTRONIK OR MEDTRONIC 06/15/16 KMD, 06/05/17) PACEMAKER IS NOT A BIOTRONIK OR MEDTRONIC CONDITIONAL PACEMAKER. CALLED BOTH COMPANIES TO CONFIRM. Percocet (Verified Adverse Reaction, Severe, Nausea/Vomiting, 06/05/17) *MDRO Multi-Drug Resistant Organism (Verified Adverse Reaction, Unknown, ESBL, MRSA, 06/05/17) E. coli ESBL (urine) - 2012, 2013, 2014, 04/2016, 02/03/2017, 03/08/2017, 05/08/17 MRSA - 2003, 03/2015, 03/09/2017 (toe wound), 10/2015, 03/28/17, 04/27/17 (arm/back wound), (foot-08/17/16 & 01/11/17) Metformin (Verified Adverse Reaction, Unknown, DIARRHEA, 06/05/17) Morphine (Verified Adverse Reaction, Unknown, Dizziness, 06/05/17) states doesn't want-does not like the way it makes me feel Reported Meds & Prescriptions Reported Meds & Active Scripts Active Keflex (Cephalexin) 500 Mg Cap 500 Mg PO Q12H 7 Days Imodium A-D (Loperamide HCl) 2 Mg Capsule 2 Mg PO Q6H PRN Zorvolex (Diclofenac) 18 Mg Cap 18 Mg PO TID Nitrofurantoin Macrocrystal 50 Mg Cap 50 Mg PO BID Sodium Chloride 1 Gm Tab 1 Gm PO DAILY Gabapentin 400 Mg Cap 400 Mg PO TID Glipizide ER (Glipizide) 5 Mg Callie 5 Mg PO DAILY Take with breakfast or first main meal of the day. Midodrine 5 Mg Tab 5 Mg PO TID Take 2 tabs daily at 7am and take 1 tab daily at 12:00 and then take 1 tab daily at 5pm for a total of 4 tabs each day. Atorvastatin (Atorvastatin Calcium) 20 Mg Tab 20 Mg PO HS Januvia (Sitagliptin Phosphate) 100 Mg Tab 100 Mg PO DAILY Reported Advair Diskus Inh (Fluticasone-Salmeterol Inh) 100-50 Mcg/Blist Aer 1 Puff INH BID Rinse mouth after use. Review of Systems General / Constitutional: No: Fever Eyes: No: Visual changes HENT: No: Headaches Cardiovascular: No: Chest Pain or Discomfort Respiratory: No: Shortness of Breath Gastrointestinal: Positive: Diarrhea, Abdominal Pain Genitourinary: No: Dysuria Musculoskeletal: No: Pain Skin: No Rash Neurologic: No: Weakness Psychiatric: No: Depression Endocrine: No: Polydipsia Hematologic/Lymphatic: No: Easy Bruising Physical Exam Narrative GENERAL: AAO x 3, no acute distress, Well-nourished, well-developed patient. SKIN: Warm and dry. No visible rashes or bruising. HEAD: Normocephalic and atraumatic. EYES: No scleral icterus. No injection or drainage. EOM intact, PERRLA ENT: No nasal drainage noted. Mucous membranes pink. Airway patent. NECK: Supple, trachea midline. No JVD. CARDIOVASCULAR: Regular rate and rhythm without murmurs, gallops, or rubs. RESPIRATORY: Breath sounds equal bilaterally. No accessory muscle use. No rhonchi or rales. GASTROINTESTINAL: Normal active bowel sounds, soft, nontender nondistended. Negative McBurney's point and negative Young sign EXTREMITIES: No cyanosis or edema. BACK: No obvious deformity. NEURO: CN II-12 intact, PSYCH: AAO x 3, normal affect. Data Data Last Documented VS Vital Signs Date Time Temp Pulse Resp B/P Pulse Ox O2 Delivery O2 Flow Rate FiO2 06/19/17 10:15 99.2 88 16 98/54 100 Orders Complete Blood Count With Diff (06/19/17 11:18) Comprehensive Metabolic Panel (06/19/17 11:18) Lipase (06/19/17 11:18) Urinalysis - C+S If Indicated (06/19/17 11:18) Iv Access Insert/Monitor (06/19/17 11:18) Ecg Monitoring (06/19/17 11:18) Oximetry (06/19/17 11:18) Sodium Chloride 0.9% Flush (Ns Flush) (06/19/17 11:30) Ondansetron Inj (Zofran Inj) (06/19/17 11:30) Sodium Chlor 0.9% 1000 Ml Inj (Ns 1000 M (06/19/17 11:30) Urine Culture (06/19/17 12:25) Labs Laboratory Tests Test 06/19/17 06/19/17 11:35 12:25 White Blood Count 3.5 TH/MM3 Red Blood Count 3.74 MIL/MM3 Hemoglobin 10.8 GM/DL Hematocrit 32.7 % Mean Corpuscular Volume 87.6 FL Mean Corpuscular Hemoglobin 28.8 PG Mean Corpuscular Hemoglobin 32.9 % Concent Red Cell Distribution Width 14.4 % Platelet Count 227 TH/MM3 Mean Platelet Volume 7.5 FL Neutrophils (%) (Auto) 58.2 % Lymphocytes (%) (Auto) 28.0 % Monocytes (%) (Auto) 11.6 % Eosinophils (%) (Auto) 1.6 % Basophils (%) (Auto) 0.6 % Neutrophils # (Auto) 2.0 TH/MM3 Lymphocytes # (Auto) 1.0 TH/MM3 Monocytes # (Auto) 0.4 TH/MM3 Eosinophils # (Auto) 0.1 TH/MM3 Basophils # (Auto) 0.0 TH/MM3 CBC Comment DIFF FINAL Differential Comment Sodium Level 137 MEQ/L Potassium Level 3.8 MEQ/L Chloride Level 103 MEQ/L Carbon Dioxide Level 27.8 MEQ/L Anion Gap 6 MEQ/L Blood Urea Nitrogen 12 MG/DL Creatinine 0.87 MG/DL Estimat Glomerular Filtration 69 ML/MIN Rate Random Glucose 119 MG/DL Calcium Level 9.4 MG/DL Total Bilirubin 0.4 MG/DL Aspartate Amino Transf 19 U/L (AST/SGOT) Alanine Aminotransferase 25 U/L (ALT/SGPT) Alkaline Phosphatase 79 U/L Total Protein 7.4 GM/DL Albumin 3.5 GM/DL Lipase 177 U/L Urine Color YELLOW Urine Turbidity HAZY Urine pH 6.0 Urine Specific [place] 1.010 Urine Protein TRACE mg/dL Urine Glucose (UA) NEG mg/dL Urine Ketones NEG mg/dL Urine Occult Blood MOD Urine Nitrite NEG Urine Bilirubin NEG Urine Urobilinogen LESS THAN 2.0 MG/DL Urine Leukocyte Esterase SMALL Urine RBC /hpf Urine WBC 18 /hpf Urine Squamous Epithelial 3 /hpf Cells Urine Bacteria FEW /hpf Urine Hyaline Casts 3 /lpf Urine Mucus FEW /lpf Microscopic Urinalysis Comment CULTURE INDICATED MDM Medical Decision Making Medical Screen Exam Complete: Yes Emergency Medical Condition: Yes Medical Record Reviewed: Yes Differential Diagnosis Gastroenteritis, less likely colitis, less likely diverticulitis Narrative Course 51-year-old female here with complaints of diarrhea since this morning. Labs have been ordered. UA has also been ordered. Zofran and IV fluids given. 1323: Patient has had no further episodes of diarrhea. She has no abdominal pain. She's feeling well. I discussed results with her. She is feeling well. Ready for discharge. She does appear to have urinary tract infection. I will treat her with some antibiotics and she will need outpatient follow-up. She is on daily macrobid. I advised her to discuss with her PCP Laboratory Tests Test 06/19/17 06/19/17 11:35 12:25 White Blood Count 3.5 TH/MM3 Red Blood Count 3.74 MIL/MM3 Hemoglobin 10.8 GM/DL Hematocrit 32.7 % Mean Corpuscular Volume 87.6 FL Mean Corpuscular Hemoglobin 28.8 PG Mean Corpuscular Hemoglobin 32.9 % Concent Red Cell Distribution Width 14.4 % Platelet Count 227 TH/MM3 Mean Platelet Volume 7.5 FL Neutrophils (%) (Auto) 58.2 % Lymphocytes (%) (Auto) 28.0 % Monocytes (%) (Auto) 11.6 % Eosinophils (%) (Auto) 1.6 % Basophils (%) (Auto) 0.6 % Neutrophils # (Auto) 2.0 TH/MM3 Lymphocytes # (Auto) 1.0 TH/MM3 Monocytes # (Auto) 0.4 TH/MM3 Eosinophils # (Auto) 0.1 TH/MM3 Basophils # (Auto) 0.0 TH/MM3 CBC Comment DIFF FINAL Differential Comment Sodium Level 137 MEQ/L Potassium Level 3.8 MEQ/L Chloride Level 103 MEQ/L Carbon Dioxide Level 27.8 MEQ/L Anion Gap 6 MEQ/L Blood Urea Nitrogen 12 MG/DL Creatinine 0.87 MG/DL Estimat Glomerular Filtration 69 ML/MIN Rate Random Glucose 119 MG/DL Calcium Level 9.4 MG/DL Total Bilirubin 0.4 MG/DL Aspartate Amino Transf 19 U/L (AST/SGOT) Alanine Aminotransferase 25 U/L (ALT/SGPT) Alkaline Phosphatase 79 U/L Total Protein 7.4 GM/DL Albumin 3.5 GM/DL Lipase 177 U/L Urine Color YELLOW Urine Turbidity HAZY Urine pH 6.0 Urine Specific [place] 1.010 Urine Protein TRACE mg/dL Urine Glucose (UA) NEG mg/dL Urine Ketones NEG mg/dL Urine Occult Blood MOD Urine Nitrite NEG Urine Bilirubin NEG Urine Urobilinogen LESS THAN 2.0 MG/DL Urine Leukocyte Esterase SMALL Urine RBC /hpf Urine WBC 18 /hpf Urine Squamous Epithelial 3 /hpf Cells Urine Bacteria FEW /hpf Urine Hyaline Casts 3 /lpf Urine Mucus FEW /lpf Microscopic Urinalysis Comment CULTURE INDICATED Patient verbalized understanding of instructions, questions were answered, and thanked me for their care. I advised them if their condition worsens, please return to the nearest emergency room for further care. Diagnosis Primary Impression: UTI (urinary tract infection) Qualified Code: N30.01 - Acute cystitis with hematuria Patient Instructions: General Instructions Additional Instructions: Please return to emergency department if your symptoms return or worsen. Follow up with your primary care provider. Take medications as prescribed. Med/Other Pt SpecificInfo: Prescription(s) given Scripts Cephalexin (Keflex)500 Mg Xby550 Mg PO Q12H 7 Days Ref 0 Prov:Jairo Salazar MD 06/19/17 Disposition: 01 DISCHARGE HOME Condition: Stable Mellisa Real Jun 19, 2017 11:13
[2017-06-19] MEDS ORDERED: SODIUM CHLORIDE 0.9% FLUSH 10 ML FLUSH IV FLUSH PRN (11:30)
[2017-06-19] MEDS ORDERED: SODIUM CHLOR 0.9% 1000 ML INJ 1,000 ML IV ONE (11:30)
[2017-06-19] MEDS ORDERED: ONDANSETRON HCL 4 MG/2 ML VIAL IV PUSH ONE (11:30)
[2017-06-19 12:06] LABS: BASOPHIL % 0.6 % (0.0-2.0); EOSINOPHIL # 0.1 TH/MM3 (0-0.4); EOSINOPHIL % 1.6 % (0.0-4.0); HEMATOCRIT 32.7 % (35.0-46.0); HEMO FLAGS DIFF FINAL; MEAN CELL VOLUME 87.6 FL (80.0-100.0); MEAN CORPUSCULAR HEMOGLOBIN 28.8 PG (27.0-34.0); MEAN CORPUSCULAR HGB CONC 32.9 % (32.0-36.0); MONO % 11.6 % (0.0-8.0); NEUT % 58.2 % (16.0-70.0); PLATELET COUNT 227 TH/MM3 (150-450); RED BLOOD COUNT 3.74 MIL/MM3 (4.00-5.30); RED CELL DISTRIBUTION WIDTH 14.4 % (11.6-17.2); WHITE BLOOD COUNT 3.5 TH/MM3 (4.0-11.0)
[2017-06-19 12:29] LABS: ANION GAP 6 MEQ/L (5-15); AST (GOT) 19 U/L (15-37); BICARBONATE 27.8 MEQ/L (21.0-32.0); BLOOD UREA NITROGEN 12 MG/DL (7-18); CHLORIDE 103 MEQ/L (98-107); GLOMERULAR FILTRATION RATE 69 ML/MIN (>89); POTASSIUM 3.8 MEQ/L (3.5-5.1); SODIUM (NA) 137 MEQ/L (136-145)
[2017-06-19 12:30] LABS: ALT (GPT) 25 U/L (10-53)
[2017-06-19 12:32] LABS: ALKALINE PHOSPHATASE 79 U/L (45-117); TOTAL BILIRUBIN ADULT 0.4 MG/DL (0.2-1.0)
[2017-06-19 12:53] LABS: BACTERIA, URINE FEW /hpf; BLOOD, URINE MOD (NEG); COMMENT (UR) CULTURE INDICATED; CULTURE IF INDICATED CULTURE INDICATED; GLUCOSE,URINE NEG (NEG); HYALINE CAST, URINE 3 /lpf (RARE); KETONE, URINE NEG (NEG); MUCUS URINE FEW /lpf (OCC); NITRITE,URINE NEG (NEG); SQUAMOUS EPITHELIAL CELL URINE 3 /hpf (0-5); URINE COLOR YELLOW (YELLW/STRAW)
[2017-06-19] MEDS ORDERED: CEPH-460 PO (13:26)
[2017-08-21] MEDS ORDERED: ZOFR4TAB PO (09:09)
[2017-08-24] MEDS ORDERED: BACT800T5 PO (18:32)
[2017-08-25] MEDS ORDERED: CEFT1INJ IM (12:04)
[2017-08-25] MEDS ORDERED: MACR100C2 PO (12:10)
== END 2017-06-19 14:38 | disposition home or self-care (01) ==
LOC: NEPD 10:10
DX: N30.01 Acute cystitis with hematuria (principal); B96.20 Unspecified Escherichia coli [E. coli] as the cause of diseases classified elsewhere; B96.89 Other specified bacterial agents as the cause of diseases classified elsewhere
CPT/HCPCS: 80053; 81001; 83690; 85025; 87077; 87086; 87186; 96361; 96374; 99284; J1642; J2405; J7030

== ENCOUNTER 2017-07-19 21:28 | Emergency (ER) | payer MEDICARE, MEDICAID ==
[~2017-07-19] VITALS: Ht 172.7 cm; Wt 68.0 kg
[~2017-07-19 21:28] MED LIST changes: +CEPH-460 PO
[2017-07-19 21:42] VITALS: BP 100/59; PULSE 84; RESP 16; TEMP 99.2; O2SAT 100
--- NOTE | 2017-07-19 23:05 | PD ---
HPI Chief Complaint: GI Complaint Time Seen by Provider: 22:48 Travel History International Travel<30 days: No Contact w/Intl Traveler<30days: No Traveled to known affect area: No History of Present Illness HPI 51 year-old female presents to the emergency department for evaluation of diarrhea for the last 2-1/2 days. Patient states she has had diarrhea up to 3 times a day. For his moderate abdominal cramping prior to her bowel movements. Denies any black tarry or lexus red stools. No nausea or vomiting. No chest pain or tightness. No difficulty breathing. Patient would like me to look at 2 wounds on her right hand, one on her right index finger and one on the right fourth digit. They have been there for several weeks but seemed to not be healing properly. She does not recall how she sustained them. She has no other symptoms to report. PFSH Past Medical History Hx Anticoagulant Therapy: No Asthma: Yes Atrial Fibrillation: Yes Cancer: Yes (throat) Cardiovascular Problems: Yes (Pacemaker) Chemotherapy: Yes Chest Pain: Yes COPD: Yes Cerebrovascular Accident: Yes Diabetes: Yes Diminished Hearing: No Gastrointestinal Disorders: Yes (esophagitis, gastritis, pancreantitis, HEP C) Headaches: Yes Hepatitis: Yes (HEP C) Heparin Induced Thrombocytopen: No Hypertension: Yes Implanted Vascular Access Dvce: Yes (PORT R CHEST, PACEMAKER L CHEST) Kidney Stones: Yes Neurologic: Yes (diabetic peripheral neuropathy) Psychiatric: No Reproductive: No Respiratory: Yes (asthma) Immunizations Current: Yes Migraines: Yes Radiation Therapy: Yes (last done on 11/18/16) Triglycerides - High: Yes PNEUMOCCOCAL Vaccine (Year): 2 Menopausal: Yes : 3 Para: 2 Miscarriage: 1 Past Surgical History Appendectomy: Yes Body Medical Devices: PACEMAKER; LEG STENT; PORT PLACED Cardiac Surgery: Yes (pacemaker, lt femoral stent) Section: Yes (x1) Cholecystectomy: Yes Pacemaker: Yes (rt chest) Tonsillectomy: Yes Other Surgery: Yes (port placed) Social History Alcohol Use: No Tobacco Use: No Substance Use: No ( ) Allergies-Medications (Allergen,Severity, Reaction): Coded Allergies: tramadol (Unverified Allergy, Intermediate, Rash, 06/23/17) MRI PRECAUTION (Verified Adverse Reaction, Severe, PACEMAKER IS NOT A BIOTRONIK OR MEDTRONIC 06/15/16 KMD, 06/23/17) PACEMAKER IS NOT A BIOTRONIK OR MEDTRONIC CONDITIONAL PACEMAKER. CALLED BOTH COMPANIES TO CONFIRM. acetaminophen (Unverified Adverse Reaction, Severe, Nausea/Vomiting, ) oxycodone (Unverified Adverse Reaction, Severe, Nausea/Vomiting, 06/23/17) prochlorperazine (Unverified Adverse Reaction, Severe, ANXIETY, 06/23/17) ANXIETY *MDRO Multi-Drug Resistant Organism (Verified Adverse Reaction, Unknown, ESBL, MRSA, 06/23/17) E. coli ESBL (urine) - 2012, 2013, 2014, 04/2016, 02/03/2017, 03/08/2017, 05/08/17 MRSA - 2003, 03/2015, 03/09/2017 (toe wound), 10/2015, 03/28/17, 04/27/17 (arm/back wound), (foot-08/17/16 & 01/11/17) metformin (Unverified Adverse Reaction, Unknown, DIARRHEA, 06/23/17) morphine (Unverified Adverse Reaction, Unknown, Dizziness, 06/23/17) states doesn't want-does not like the way it makes me feel Reported Meds & Prescriptions Reported Meds & Active Scripts Active Bactrim DS (Sulfamethoxazole-Trimethoprim) 800-160 Mg Tab 1 Tab PO BID Imodium A-D (Loperamide HCl) 2 Mg Capsule 2 Mg PO Q6H PRN Gabapentin 400 Mg Cap 400 Mg PO TID Glipizide ER (Glipizide) 5 Mg Callie 5 Mg PO DAILY Take with breakfast or first main meal of the day. Midodrine 5 Mg Tab 5 Mg PO TID Take 2 tabs daily at 7am and take 1 tab daily at 12:00 and then take 1 tab daily at 5pm for a total of 4 tabs each day. Atorvastatin (Atorvastatin Calcium) 20 Mg Tab 20 Mg PO HS Januvia (Sitagliptin Phosphate) 100 Mg Tab 100 Mg PO DAILY Reported Advair Diskus Inh (Fluticasone-Salmeterol Inh) 100-50 Mcg/Blist Aer 1 Puff INH BID Rinse mouth after use. Review of Systems Except as stated in HPI: all other systems reviewed are Neg Physical Exam Narrative GENERAL: Well-nourished female patient, in no acute distress SKIN: Focused skin assessment warm/dry. 1 cm in diameter wound on the lateral aspect of the right second digit slight erythema surrounding it. Mild edema. Patient has full flexion extension of the digit. Sensation intact distal affected digit. There is another 1 cm in diameter scabbed over wound on the distal right fourth digit. No signs or symptoms of infection. HEAD: Atraumatic. Normocephalic. EYES: Pupils equal and round. No scleral icterus. No injection or drainage. ENT: No nasal bleeding or discharge. Mucous membranes pink and moist. NECK: Trachea midline. No JVD. CARDIOVASCULAR: Regular rate and rhythm. No murmur appreciated. RESPIRATORY: No accessory muscle use. Clear to auscultation. Breath sounds equal bilaterally. GASTROINTESTINAL: Abdomen soft, non-tender, nondistended. Hepatic and splenic margins not palpable. MUSCULOSKELETAL: No obvious deformities. No clubbing. No cyanosis. No edema. NEUROLOGICAL: Awake and alert. No obvious cranial nerve deficits. Motor grossly within normal limits. Normal speech. Data Data Last Documented VS Vital Signs Date Time Temp Pulse Resp B/P (MAP) Pulse Ox O2 Delivery O2 Flow Rate FiO2 07/19/17 23:27 99.1 81 16 136/77 (96) 97 07/19/17 21:42 Room Air Orders Orders Sodium Chlor 0.9% 1000 Ml Inj (Ns 1000 M (07/19/17 23:15) MDM Medical Decision Making Medical Screen Exam Complete: Yes Emergency Medical Condition: Yes Medical Record Reviewed: Yes Differential Diagnosis Gastroenteritis versus colitis versus diverticulitis Cellulitis versus chronic wound versus healing wound Narrative Course 51 year-old female presents to emergency department for evaluation of diarrhea. Patient appears without distress. Her abdominal exam is benign. I offered lab work and IV fluids which initially the patient agrees to move forward with, however she then decided that she would rather go home and try a bland diet and rest. Because the patient feels well and her vital signs are stable, I feel this is a safe approach to the patient's diarrhea. She agrees to return immediately with any acute worsening of symptoms. Diagnosis Primary Impression: Diarrhea Qualified Codes: R19.7 - Diarrhea, unspecified Additional Impression: Open wound of right index finger without damage to nail Qualified Codes: S61.200A - Unspecified open wound of right index finger without damage to nail, initial encounter Referrals: Primary Care Physician Patient Instructions: Acute Diarrhea (ED), Acute Wound Care (DC), General Instructions Additional Instructions: [place] diet Avoid abrasive and acid foods Follow-up primary care provider Return immediately with any acute worsening of symptoms Med/Other Pt SpecificInfo: Prescription(s) given Scripts Sulfamethoxazole-Trimethoprim (Bactrim DS) 800-160 Mg Tab 1 TAB PO BID for Infection, #20 TAB 0 Refills Prov: Jaye Nicole 07/19/17 Disposition: 01 DISCHARGE HOME Condition: Stable Jaye Nicole Jul 19, 2017 23:05
[2017-07-19] MEDS ORDERED: SODIUM CHLOR 0.9% 1000 ML INJ 1,000 ML IV ONE (23:15)
[2017-07-19] MEDS ORDERED: BACT800T5 PO (23:22)
[2017-07-19 23:27] VITALS: BP 136/77; TEMP 99.1
[2017-08-21] MEDS ORDERED: ZOFR4TAB PO (09:09)
[2017-08-24] MEDS ORDERED: BACT800T5 PO (18:32)
[2017-08-25] MEDS ORDERED: CEFT1INJ IM (12:04)
[2017-08-25] MEDS ORDERED: MACR100C2 PO (12:10)
== END 2017-07-19 23:35 | disposition home or self-care (01) ==
LOC: NEPD 21:28
DX: R19.7 Diarrhea, unspecified (principal); S61.200A Unspecified open wound of right index finger without damage to nail, initial encounter; E11.9 Type 2 diabetes mellitus without complications; X58.XXXA Exposure to other specified factors, initial encounter; Z79.84 Long term (current) use of oral hypoglycemic drugs
CPT/HCPCS: 99283

== ENCOUNTER → 2017-09-20 | Day surgery (SDC) | payer MEDICARE ==
--- NOTE | 2017-09-18 14:27 | MH ---
cc: ASH BENITO M.D. DATE OF ADMISSION: 09/20/2017 AKA: Nina Sharp DATE OF : 1965 HISTORY OF PRESENT ILLNESS This is a 52-year-old female with a history of head and neck cancer. The patient had a base of tongue lesion and underwent chemoradiation therapy last year. She has had remission and improvement; however, post radiation she has developed serous otitis. She has right ear serous fluid. She can not hear out of this side. Exam does not show a lesion of the nasopharynx. She is to undergo right myringotomy and tube with T-tube under general anesthesia. PAST MEDICAL HISTORY Significant for head and neck cancer, base of tongue tumor, status post chemoradiation. MEDICATIONS Current medications include: 1. Bydureon. 2. Cephalexin. 3. Fluticasone. 4. Gabapentin. 5. Ibuprofen. 6. Medrol Dosepak. PHYSICAL EXAMINATION GENERAL: A well-developed, thin woman in no apparent distress. HEENT: Normocephalic, atraumatic. Extraocular motions intact. External ear canals clear. Right tympanic membrane retracted with serous fluid. Left tympanic membrane shows no retraction or fluid level. The nasal exam shows no lesion. Lips, oral mucosa and oropharynx show no lesion. NECK: No mass. CHEST: Clear to auscultation. HEART: Regular rate. ABDOMEN: Soft. EXTREMITIES: No lesion. NEUROLOGIC: Nonfocal. ASSESSMENT AND PLAN This a 52-year-old female with a history of chronic otitis, right eustachian tube dysfunction after radiation therapy and hearing loss. She is to undergo right myringotomy and T-tube under general anesthesia. The risks and benefits were discussed with the patient. The risks include but are not limited to those of anesthesia, bleeding, unfavorable scarring, TM perforation, early tube extrusion, tube retention requiring removal, tube otorrhea requiring removal, cholesteatoma and hearing loss. The patient states she understands and accepts the risks of the procedure. MD AGUSTIN Don/[place] /1:57 PM /2:21 PM
[~2017-09-20] VITALS: Ht 172.7 cm; Wt 66.8 kg
[~2017-09-20] MED LIST changes: +ACETAMINOPHEN/HYDROcodone 325 MG/5 MG TAB PO PRN; -CEPH-460 PO; +CHLORHEXIDINE GLUCONATE 2 % 1 PACK (2 CLOTHS) TOPICAL PRN; -DICL1CAP3 PO; +DO NOT ADM ANY ANTICOAGULANT DRUGS PRN; +INSULIN HUMAN REGULAR 1,000 UNITS/10 ML VIAL SQ PRN; +LACTATED RINGER'S 1000 ML IV PRN; +LEVEMIR SQ; +LIDOCAINE HCL 1% PF 5 ML AMPULE OTHER ONE; +MACR100C2 PO; +METOPROLOL TARTRATE 25 MG TAB PO PRN; +MORPHINE SULFATE 4 MG/ML INJ IV PRN; +MUPI2%T TOPICAL; -NITR1CAP37 PO; +OFLOXACIN 0.3% OPTH SOLN 5 ML BTL ONE; +ONDANSETRON HCL 4 MG/2 ML VIAL IV PUSH PRN; +POVIDONE IODINE 5% (ANTISEPSIS KIT) 4 APPLICATIONS EACH NARE PRN; +PROPOFOL 200 MG/20 ML AMP IV ONE; -SODI1TAB PO; +SODIUM CHLORID 0.9% 500 ML IV PRN; +ZOFR4TAB PO; +ePHEDrine/NS 25 MG/5 ML SYR IV ONE
[2017-09-20 10:59] LABS: AUTOMATED NEUTROPHIL # 0.8 TH/MM3 (1.8-7.7); BASOPHIL % 1.2 % (0.0-2.0); EOSINOPHIL % 2.3 % (0.0-4.0); HEMATOCRIT 28.1 % (35.0-46.0); LYMPH % 40.6 % (9.0-44.0); LYMPHOCYTE # 0.8 TH/MM3 (1.0-4.8); MEAN CELL VOLUME 89.7 FL (80.0-100.0); MEAN CORPUSCULAR HEMOGLOBIN 29.4 PG (27.0-34.0); MEAN CORPUSCULAR HGB CONC 32.8 % (32.0-36.0); MONO % 13.4 % (0.0-8.0); NEUT % 42.5 % (16.0-70.0); PLATELET COUNT 236 TH/MM3 (150-450); RED BLOOD COUNT 3.13 MIL/MM3 (4.00-5.30); RED CELL DISTRIBUTION WIDTH 14.8 % (11.6-17.2)
[2017-09-20 11:02] LABS: HEMO FLAGS AUTO DIFF
[2017-09-20 11:48] LABS: BANDS 3 % (0-6); BASOPHILS 3 % (0-2); EOSINOPHILS 2 % (0-4); NEUTROPHIL # MANUAL DIFF 0.9 TH/MM3 (1.8-7.7); POLYS (SEG NEUTROPHILS) 43 % (16-70); WBC DIFF SAMPLE 100
[2017-09-20 11:49] LABS: PLATELET ESTIMATE SMEAR NORMAL (NORMAL); PLATELET MORPHOLOGY NORMAL (NORMAL); SCAN/DIFF FINAL DIFF MANUAL
--- NOTE | 2017-09-20 12:19 | MP ---
cc: ASH BENITO MD DATE OF SURGERY 09/20/2017 DATE OF 09/09/1955 JELENA Sharp HISTORY OF PRESENT ILLNESS Patient with a history of base of tongue cancer, post radiation therapy has had right serous otitis. She has not responded to medical therapy. She has conductive hearing loss. She is to undergo right myringotomy and tube with T-tube under general anesthesia. PREOPERATIVE DIAGNOSIS Otitis media, conductive hearing loss. POSTOPERATIVE DIAGNOSIS Otitis media, conductive hearing loss. PROCEDURE Right myringotomy and T-tube ANESTHESIA general anesthesia. SUMMARY The patient was brought tot he operating room, placed in the supine position, successfully placed under general anesthesia and prepared in the usual fashion for this procedure. The right ear was examined under the microscope, cleared of debris. A myringotomy incision placed anterior inferiorly. Serous fluid was suctioned from the middle ear and a pressure equalization tube with T-tube was placed without complication. Ofloxin drops were applied. The patient tolerated the procedure well. She was awakened and taken to recovery in stable condition. MD AGUSTIN Don/[place] /11:45 AM /12:09 PM
[2017-09-20 13:24] VITALS: BP 117/71; PULSE 87; RESP 18; TEMP 97.8; O2SAT 100
== END | disposition home or self-care (01) ==
LOC: HSDC 09:01
PROVIDERS: ATTEND Specialist
DX: H66.91 Otitis media, unspecified, right ear (principal); H90.11 Conductive hearing loss, unilateral, right ear, with unrestricted hearing on the contralateral side; R79.89 Other specified abnormal findings of blood chemistry; Z85.810 Personal history of malignant neoplasm of tongue; Z92.3 Personal history of irradiation; Z92.21 Personal history of antineoplastic chemotherapy
CPT/HCPCS: 00126; 69436; 82948; 85007; 85027; J1642; J3010; J7120

== ENCOUNTER 2017-09-23 11:31 | Emergency (ER) | payer MEDICARE ==
[~2017-09-23] VITALS: Ht 172.7 cm; Wt 65.0 kg
[~2017-09-23 11:31] MED LIST changes: -ACETAMINOPHEN/HYDROcodone 325 MG/5 MG TAB PO PRN; -ADVA100A INH; -ATOR20TA15 PO; -CHLORHEXIDINE GLUCONATE 2 % 1 PACK (2 CLOTHS) TOPICAL PRN; -DO NOT ADM ANY ANTICOAGULANT DRUGS PRN; -GLIP1TAB49 PO; -INSULIN HUMAN REGULAR 1,000 UNITS/10 ML VIAL SQ PRN; -LACTATED RINGER'S 1000 ML IV PRN; -LIDOCAINE HCL 1% PF 5 ML AMPULE OTHER ONE; -LOPE-1 PO; -MACR100C2 PO; -METOPROLOL TARTRATE 25 MG TAB PO PRN; -MIDO5TAB PO; -MORPHINE SULFATE 4 MG/ML INJ IV PRN; -MUPI2%T TOPICAL; -OFLOXACIN 0.3% OPTH SOLN 5 ML BTL ONE; -ONDANSETRON HCL 4 MG/2 ML VIAL IV PUSH PRN; -POVIDONE IODINE 5% (ANTISEPSIS KIT) 4 APPLICATIONS EACH NARE PRN; -PROPOFOL 200 MG/20 ML AMP IV ONE; -SITA1TAB2 PO; -SODIUM CHLORID 0.9% 500 ML IV PRN; -ZOFR4TAB PO; -ePHEDrine/NS 25 MG/5 ML SYR IV ONE
[2017-09-23 11:34] VITALS: BP 143/80; PULSE 100; RESP 17; TEMP 99.3; O2SAT 100
[2017-09-23] MEDS ORDERED: SITA1TAB2 PO (11:51)
[2017-09-23] MEDS ORDERED: LEVEMIR SQ (11:51)
[2017-09-23] MEDS ORDERED: MUPI2%T TOPICAL (11:52)
--- NOTE | 2017-09-23 11:55 | PD ---
Physical Exam Date Seen by Provider: Sep 23, 2017 Time Seen by Provider: 11:55 Narrative This patient comes in with a foot wound on her left foot. Data Data Last Documented VS Vital Signs Date Time Temp Pulse Resp B/P (MAP) Pulse Ox O2 Delivery O2 Flow Rate FiO2 09/23/17 11:34 99.3 100 17 143/80 (101) 100 Room Air Orders Orders Wound Care (09/23/17 11:52) Ed Discharge Order (09/23/17 11:52) MDM Supervised Visit with DARIAN: Yes Narrative Course I, Dr. Siu, have reviewed the advance practice practitioner's documentation and am in agreement, met with the patient face to face, made the diagnosis, and the medical decision making was done by me. *My assessment and Findings: She has what appears to be a ruptured blister on the plantar aspect of her left foot over the first MTP joint. It does not appear infected. Please see Zhen Merrill PA-C's note for results of laboratory and radiographic evaluation, ED course, final diagnosis and disposition Scripts Mupirocin Topical (Bactroban Topical) 22 Gm Cream 1 APPLIC TOPICAL BID for Mgmt Bacterial Infection for 14 Days, #1 TUBE 0 Refills Prov: Keyana Siu MD 09/23/17 Keyana Siu MD Sep 23, 2017 11:55
--- NOTE | 2017-09-23 11:57 | PD ---
HPI Chief Complaint: Skin Problem Time Seen by Provider: 11:50 Travel History International Travel<30 days: No Contact w/Intl Traveler<30days: No Traveled to known affect area: No History of Present Illness HPI This is a 52-year-old female with history of diabetes, peripheral neuropathy, who presents for evaluation of an area of skin irritation on the plantar aspect left foot. She first noticed it today after getting out of the shower. She reports that it is mildly sore to palpation. She does not recall seeing prior to today. She denies any fevers, chills. She does report that she typically wear socks most of the time. She follows with the residents here at [facility] for primary care. She has no other complaints. PFS Past Medical History Hx Anticoagulant Therapy: No Asthma: Yes Atrial Fibrillation: Yes Heart Rhythm Problems: Yes (Pacemaker) Cancer: Yes (throat) Cardiovascular Problems: Yes (Pacemaker) Chemotherapy: Yes Chest Pain: Yes COPD: Yes Cerebrovascular Accident: Yes Diabetes: Yes Diminished Hearing: No Endocrine: Yes Gastrointestinal Disorders: Yes (esophagitis, gastritis, pancreantitis, HEP C) Genitourinary: Yes Headaches: Yes Hepatitis: Yes (HEP C) Hiatal Hernia: No Heparin Induced Thrombocytopen: No Hypertension: Yes Immune Disorder: No Implanted Vascular Access Dvce: Yes (PORT R CHEST, PACEMAKER L CHEST) Kidney Stones: Yes Musculoskeletal: Yes Neurologic: Yes (diabetic peripheral neuropathy) Psychiatric: No Reproductive: No Respiratory: Yes (asthma) Immunizations Current: Yes Migraines: Yes Pancreatitis: Yes Radiation Therapy: Yes (last done on 11/18/16) Thyroid Disease: No Triglycerides - High: Yes PNEUMOCCOCAL Vaccine (Year): 2 Menopausal: Yes : 3 Para: 2 Miscarriage: 1 : 0 Past Surgical History Abdominal Surgery: Yes (appendectomy, cholecystectomy) AICD: No Appendectomy: Yes Body Medical Devices: PACEMAKER; LEG STENT; PORT PLACED Cardiac Surgery: Yes (pacemaker, lt femoral stent) Section: Yes (x1) Cholecystectomy: Yes Ear Surgery: No Endocrine Surgery: No Eye Surgery: No Genitourinary Surgery: No Joint Replacement: No Oral Surgery: Yes (tonsillectomy) Pacemaker: Yes (rt chest) Thoracic Surgery: No Tonsillectomy: Yes Other Surgery: Yes (port placed) Social History Alcohol Use: No Tobacco Use: No Substance Use: No ( ) Allergies-Medications (Allergen,Severity, Reaction): Coded Allergies: tramadol (Verified Allergy, Intermediate, Rash, 09/23/17) MRI PRECAUTION (Verified Adverse Reaction, Severe, PACEMAKER IS NOT A BIOTRONIK OR MEDTRONIC 06/15/16 KMD, 08/25/17) PACEMAKER IS NOT A BIOTRONIK OR MEDTRONIC CONDITIONAL PACEMAKER. CALLED BOTH COMPANIES TO CONFIRM. acetaminophen (Verified Adverse Reaction, Severe, Nausea/Vomiting, ) metformin (Verified Adverse Reaction, Severe, DIARRHEA, 09/23/17) morphine (Verified Adverse Reaction, Severe, Dizziness, 09/23/17) oxycodone (Verified Adverse Reaction, Severe, Nausea/Vomiting, 09/23/17) prochlorperazine (Verified Adverse Reaction, Severe, ANXIETY, 09/23/17) ANXIETY Reported Meds & Prescriptions Reported Meds & Active Scripts Active Bactroban Topical (Mupirocin) 22 Gm Cream 1 Applic TOPICAL BID 14 Days Gabapentin 400 Mg Cap 400 Mg PO TID Reported Januvia (Sitagliptin Phosphate) 100 Mg Tab 100 Mg PO DAILY Levemir Inj (Insulin Detemir) 1,000 unit/ 10 ML Vial 5 Units SQ BID Do not mix with any other Insulin. Review of Systems General / Constitutional: No: Fever, Chills Skin: Positive Other (skin irritation, pain) Physical Exam Narrative GENERAL: Well-developed well-nourished female in no acute distress SKIN: Warm and dry. There is a 2 cm popped blister on the plantar medial aspect of the left foot. The dermis is intact. There is a intact blister just proximal to this. There is no erythema, no purulent drainage, no proximal streaking. HEAD: Atraumatic. Normocephalic. EYES: Pupils equal and round. No scleral icterus. No injection or drainage. ENT: No nasal bleeding or discharge. Mucous membranes pink and moist. NECK: Trachea midline. No JVD. CARDIOVASCULAR: Regular rate and rhythm. No murmur appreciated. RESPIRATORY: No accessory muscle use. Clear to auscultation. Breath sounds equal bilaterally. MUSCULOSKELETAL: Skin as noted above with no bony deformity. 2+ dorsalis pedis pulse. NEUROLOGICAL: Awake and alert. No obvious cranial nerve deficits. Motor grossly within normal limits. Normal speech. Data Data Last Documented VS Vital Signs Date Time Temp Pulse Resp B/P (MAP) Pulse Ox O2 Delivery O2 Flow Rate FiO2 09/23/17 11:34 99.3 100 17 143/80 (101) 100 Room Air Orders Orders Wound Care (09/23/17 11:52) Ed Discharge Order (09/23/17 11:52) MDM Medical Decision Making Medical Screen Exam Complete: Yes Emergency Medical Condition: Yes Medical Record Reviewed: Yes Differential Diagnosis Ruptured blister, cellulitis, diabetic foot ulcer, osteomyelitis Narrative Course Examination reveals a ruptured blister on the plantar aspect left foot. There is no evidence of infection. Unfortunately given her history of documented history of poorly compliant diabetes, peripheral neuropathy, certainly this isn' t a high risk of infection and therefore require very close follow-up with her primary care team while it is healing. This is explained in great detail to the patient who verbalizes understanding. The patient will be given a prescription for Bactroban cream. She is encouraged to wash the wound gently twice a day, keep the foot is clean and dry spot and return for any signs of infection which were discussed the patient at great detail. Diagnosis Primary Impression: Blister of foot, left Qualified Codes: S90.822A - Blister (nonthermal), left foot, initial encounter Additional Instructions: Wash gently with soap and water and apply antibiotic cream twice a day. As discussed, follow-up next week with primary care physician. Return for any signs of infection such as increasing large area of redness around the wound, red streaks up the leg, fevers. Med/Other Pt SpecificInfo: Prescription(s) given, Wound Care Scripts Mupirocin Topical (Bactroban Topical) 22 Gm Cream 1 APPLIC TOPICAL BID for Mgmt Bacterial Infection for 14 Days, #1 TUBE 0 Refills Prov: Keyana Siu MD 09/23/17 Disposition: 01 DISCHARGE HOME Condition: Stable Zhen Merrill Sep 23, 2017 11:57
[2017-09-27] MEDS ORDERED: BACT800T5 PO ×2 (16:41→16:42)
[2017-09-27] MEDS ORDERED: CEFT1INJ IM (16:41)
[2017-09-27] MEDS ORDERED: MIDO5TAB PO (16:59)
== END 2017-09-23 13:16 | disposition home or self-care (01) ==
LOC: NEPC 11:31
DX: S90.822A Blister (nonthermal), left foot, initial encounter (principal); E11.9 Type 2 diabetes mellitus without complications; I10 Essential (primary) hypertension; E78.1 Pure hyperglyceridemia; X58.XXXA Exposure to other specified factors, initial encounter; Z79.4 Long term (current) use of insulin; Z95.0 Presence of cardiac pacemaker; Z87.09 Personal history of other diseases of the respiratory system; Z86.79 Personal history of other diseases of the circulatory system; Z87.19 Personal history of other diseases of the digestive system; Z87.448 Personal history of other diseases of urinary system; Z86.19 Personal history of other infectious and parasitic diseases; Z87.39 Personal history of other diseases of the musculoskeletal system and connective tissue; Z86.69 Personal history of other diseases of the nervous system and sense organs
CPT/HCPCS: 99283

== ENCOUNTER 2017-09-30 11:40 | Emergency (ER) | payer MEDICARE ==
[~2017-09-30] VITALS: Ht 172.7 cm; Wt 80.0 kg
[~2017-09-30 11:40] MED LIST changes: +BACT800T5 PO; +MIDO5TAB PO; +MUPI2%T TOPICAL; +SITA1TAB2 PO
[2017-09-30 11:41] VITALS: BP 102/52; PULSE 100; RESP 16; TEMP 98.8; O2SAT 98
--- NOTE | 2017-09-30 12:42 | PD ---
HPI . Left foot redness and swelling Chief Complaint: Skin Problem Time Seen by Provider: 12:21 Travel History International Travel<30 days: No Contact w/Intl Traveler<30days: No Traveled to known affect area: No History of Present Illness HPI 52 year old female presents to the emergency department for evaluation of a blister on the plantar aspect of the left foot subsequently causing redness and swelling. Patient was seen at our facility one week ago for the same complaint and discharged home with a prescription for Bactroban. She then followed up with her PCP on Monday and given a 1G IM injection of Rocephin and prescription for Bactrim. She has another follow up appointment on Monday. Patient has a history of diabetes. She is a very poor historian but denies any fever, chills, malaise, chest pain, shortness of breath, abdominal pain, nausea , vomiting, diarrhea or lightheadedness. The blister on the left foot looks clean and dry with no purulent drainage noted. Mild erythema and edema of the left foot noted. PFSH Past Medical History Hx Anticoagulant Therapy: No Asthma: Yes Atrial Fibrillation: Yes Heart Rhythm Problems: Yes (Pacemaker) Cancer: Yes (throat) Cardiovascular Problems: Yes Chemotherapy: Yes Chest Pain: Yes COPD: Yes Cerebrovascular Accident: Yes Diabetes: Yes Patient Takes Glucophage: Yes Diminished Hearing: No Endocrine: Yes Gastrointestinal Disorders: Yes (esophagitis, gastritis, pancreantitis, HEP C) GERD: No Genitourinary: Yes Headaches: Yes Hepatitis: Yes (HEP C) Hiatal Hernia: No Heparin Induced Thrombocytopen: No Hypertension: Yes Immune Disorder: No Implanted Vascular Access Dvce: Yes (PORT R CHEST, PACEMAKER L CHEST) Kidney Stones: Yes Musculoskeletal: Yes Neurologic: Yes (diabetic peripheral neuropathy) Psychiatric: No Reproductive: No Respiratory: Yes (asthma) Immunizations Current: Yes Migraines: Yes Pancreatitis: Yes Radiation Therapy: Yes (last done on 11/18/16) Thyroid Disease: No Triglycerides - High: Yes PNEUMOCCOCAL Vaccine (Year): 2 ?: Not Menopausal: Yes : 3 Para: 2 Miscarriage: 1 : 0 Past Surgical History Abdominal Surgery: Yes (appendectomy, cholecystectomy) AICD: No Appendectomy: Yes Body Medical Devices: PACEMAKER; LEG STENT; PORT PLACED Cardiac Surgery: Yes (pacemaker, lt femoral stent) Section: Yes (x1) Cholecystectomy: Yes Ear Surgery: No Endocrine Surgery: No Eye Surgery: No Genitourinary Surgery: No Joint Replacement: No Oral Surgery: Yes (tonsillectomy) Pacemaker: Yes (rt chest) Thoracic Surgery: No Tonsillectomy: Yes Other Surgery: Yes (port placed) Social History Alcohol Use: No Tobacco Use: No Substance Use: No ( ) Allergies-Medications (Allergen,Severity, Reaction): Coded Allergies: tramadol (Verified Allergy, Intermediate, Rash, 09/27/17) MRI PRECAUTION (Verified Adverse Reaction, Severe, PACEMAKER IS NOT A BIOTRONIK OR MEDTRONIC 06/15/16 KMD, 09/27/17) PACEMAKER IS NOT A BIOTRONIK OR MEDTRONIC CONDITIONAL PACEMAKER. CALLED BOTH COMPANIES TO CONFIRM. acetaminophen (Verified Adverse Reaction, Severe, Nausea/Vomiting, ) metformin (Verified Adverse Reaction, Severe, DIARRHEA, 09/27/17) morphine (Verified Adverse Reaction, Severe, Dizziness, 09/27/17) oxycodone (Verified Adverse Reaction, Severe, Nausea/Vomiting, 09/27/17) prochlorperazine (Verified Adverse Reaction, Severe, ANXIETY, 09/27/17) ANXIETY Reported Meds & Prescriptions Reported Meds & Active Scripts Active Keflex (Cephalexin) 500 Mg Cap 500 Mg PO Q6H 5 Days Midodrine 5 Mg Tab 5 Mg PO TID Bactrim DS (Sulfamethoxazole-Trimethoprim) 800-160 Mg Tab 1 Tab PO BID Bactroban Topical (Mupirocin) 22 Gm Cream 1 Applic TOPICAL BID 14 Days Gabapentin 400 Mg Cap 400 Mg PO TID Reported Januvia (Sitagliptin Phosphate) 100 Mg Tab 100 Mg PO DAILY Levemir Inj (Insulin Detemir) 1,000 unit/ 10 ML Vial 5 Units SQ BID Do not mix with any other Insulin. Review of Systems Except as stated in HPI: all other systems reviewed are Neg Physical Exam Narrative GENERAL: Well-nourished, well-developed 52 year old white female patient in no acute distress. Nontoxic appearing. SKIN: 1cm in diameter open area on the plantar aspect of the left foot proximal to the great toe. No purulent drainage noted. HEAD: Normocephalic. Atraumatic. EYES: No scleral icterus. No injection or drainage. NECK: Supple, trachea midline. No JVD or lymphadenopathy. CARDIOVASCULAR: Regular rate and rhythm without murmurs, gallops, or rubs. Pedal pulses +2 bilaterally. RESPIRATORY: Breath sounds equal bilaterally. No accessory muscle use. GASTROINTESTINAL: Abdomen soft, non-tender, nondistended. MUSCULOSKELETAL: Full range of motion noted to left foot. No obvious deformity, ecchymosis, or cyanosis noted. BACK: Nontender without obvious deformity. No CVA tenderness. Data Data Last Documented VS Vital Signs Date Time Temp Pulse Resp B/P (MAP) Pulse Ox O2 Delivery O2 Flow Rate FiO2 09/30/17 13:05 09/30/17 11:41 98.8 100 16 98 Orders Orders Ed Discharge Order (09/30/17 12:50) MDM Medical Decision Making Medical Screen Exam Complete: Yes Emergency Medical Condition: Yes Differential Diagnosis Differential diagnoses include but not limited to blister, cellulitis, wound, edema Narrative Course 52-year-old female presents emergency department for evaluation of blister on the plantar aspect of the left foot. Blister appears clean and dry with no purulent drainage. No fevers, chills, malaise noted. Patient seen at her PCP last Monday and has a follow up on Monday. She is currently on Bactrim. Patient given an additional prescription for Keflex and discharged home with instructions to continue the proper wound care. The wound currently looks great. She was also instructed to keep the current appointment on Monday with her PCP. Wound care performed at our facility. Patient discharged home. Diagnosis Primary Impression: Cellulitis of foot Referrals: Sonali Larson MD, [facility] Patient Instructions: Cellulitis (DC), Diabetic Foot Ulcers (DC), Foot Care for People with Diabetes (ED), General Instructions Additional Instructions: Please return to emergency department if your symptoms return or worsen. Follow up with your primary care provider. Take medications as prescribed. Keep wounds clean and dry. Med/Other Pt SpecificInfo: Prescription(s) given, Wound Care Scripts Cephalexin (Keflex) 500 Mg Cap 500 MG PO Q6H for Infection for 5 Days, #20 CAP 0 Refills Prov: NatanKaryn 09/30/17 Disposition: DISCHARGE HOME Condition: Stable Karyn Gama Sep 30, 2017 12:41
[2017-09-30] MEDS ORDERED: CEPH-460 PO (12:49)
== END 2017-09-30 13:08 | disposition home or self-care (01) ==
LOC: NEPD 11:40
DX: L03.116 Cellulitis of left lower limb (principal); E11.42 Type 2 diabetes mellitus with diabetic polyneuropathy; I48.91 Unspecified atrial fibrillation; J44.9 Chronic obstructive pulmonary disease, unspecified; I10 Essential (primary) hypertension; Z86.73 Personal history of transient ischemic attack (TIA), and cerebral infarction without residual deficits; Z87.19 Personal history of other diseases of the digestive system; Z86.19 Personal history of other infectious and parasitic diseases; Z79.899 Other long term (current) drug therapy
CPT/HCPCS: 99283

== ENCOUNTER 2017-10-18 12:19 | Emergency (ER) | payer MEDICARE ==
[~2017-10-18 12:19] MED LIST changes: +CEPH-460 PO
[2017-10-18 12:27] VITALS: BP 175/77; PULSE 106; RESP 14; TEMP 98.2; O2SAT 99
[2017-10-18 13:45] LABS: AUTOMATED NEUTROPHIL # 7.6 TH/MM3 (1.8-7.7); BASOPHIL % 0.4 % (0.0-2.0); EOSINOPHIL % 0.4 % (0.0-4.0); HEMATOCRIT 29.1 % (35.0-46.0); HEMO FLAGS DIFF FINAL; LYMPH % 10.5 % (9.0-44.0); LYMPHOCYTE # 0.9 TH/MM3 (1.0-4.8); MEAN CELL VOLUME 87.4 FL (80.0-100.0); MEAN CORPUSCULAR HEMOGLOBIN 29.1 PG (27.0-34.0); MEAN CORPUSCULAR HGB CONC 33.2 % (32.0-36.0); MONO % 4.5 % (0.0-8.0); NEUT % 84.2 % (16.0-70.0); PLATELET COUNT 268 TH/MM3 (150-450); RED BLOOD COUNT 3.33 MIL/MM3 (4.00-5.30)
[2017-10-18] MEDS ORDERED: ATOR40TA16 PO (13:52)
[2017-10-18 14:01] LABS: ANION GAP 5 MEQ/L (5-15); AST (GOT) 7 U/L (15-37); BICARBONATE 30.8 MEQ/L (21.0-32.0); BLOOD UREA NITROGEN 11 MG/DL (7-18); CHLORIDE 99 MEQ/L (98-107); GLOMERULAR FILTRATION RATE 84 ML/MIN (>89); POTASSIUM 4.3 MEQ/L (3.5-5.1); SODIUM (NA) 135 MEQ/L (136-145)
[2017-10-18 14:04] LABS: ALKALINE PHOSPHATASE 102 U/L (45-117); ALT (GPT) 11 U/L (10-53); TOTAL BILIRUBIN ADULT 0.3 MG/DL (0.2-1.0)
[2017-10-18] MEDS ORDERED: SODIUM CHLOR 0.9% 1000 ML INJ 1,000 ML IV SCH (14:04)
--- NOTE | 2017-10-18 14:04 | PD ---
HPI Chief Complaint: Abdominal Pain Time Seen by Provider: 13:43 Travel History International Travel<30 days: No Contact w/Intl Traveler<30days: No Traveled to known affect area: No History of Present Illness HPI 52-year-old female presents to the emergency department with 2 complaints. Her first complaint is mid abdominal pain since 11 AM this morning. Reports nausea without vomiting. Denies dysuria, urinary frequency. Denies fevers. Normal bowel movement today. History of abdominal surgery and does not know what it was for. History of pancreatitis. Rates the pain 07/16. Describes it as a tightness. Says she tried eating to relieve the pain with no relief of symptoms. Pain is constant. No known aggravating or relieving factors. Her second complaint is to the bottom of her left foot 2 weeks. She says she was seen previously for the blister and was told to put a dressing on it. She said she was taking ibuprofen but she doesn't have any pain indurate neuropathy. Says she is diabetic. 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 Reports the foot is swollen for the past week. Does not have established primary care provider. Allergies says listed on the chart. History of diabetes mellitus, asthma, neuropathy, pancreatitis. Has no other medical complaints. No other modifying factors or associated signs and symptoms. PFSH Past Medical History Hx Anticoagulant Therapy: No Asthma: Yes Atrial Fibrillation: Yes Heart Rhythm Problems: Yes (Pacemaker) Cancer: Yes (throat) Cardiovascular Problems: Yes Chemotherapy: Yes Chest Pain: Yes COPD: Yes Cerebrovascular Accident: Yes Diabetes: Yes Patient Takes Glucophage: No Diminished Hearing: No Endocrine: Yes Gastrointestinal Disorders: Yes (esophagitis, gastritis, pancreantitis, HEP C) GERD: No Genitourinary: Yes Headaches: Yes Hepatitis: Yes (HEP C) Hiatal Hernia: No Heparin Induced Thrombocytopen: No Hypertension: Yes Immune Disorder: No Implanted Vascular Access Dvce: Yes (PORT R CHEST) Kidney Stones: Yes Musculoskeletal: Yes Neurologic: Yes (diabetic peripheral neuropathy) Psychiatric: No Reproductive: No Respiratory: Yes (asthma) Immunizations Current: Yes Migraines: Yes Pancreatitis: Yes Radiation Therapy: Yes (last done on 11/18/16) Renal Failure: No Thyroid Disease: No Triglycerides - High: Yes PNEUMOCCOCAL Vaccine (Year): 2 ?: Not Menopausal: Yes : 3 Para: 2 Miscarriage: 1 : 0 Past Surgical History Abdominal Surgery: Yes (appendectomy, cholecystectomy) AICD: No Appendectomy: Yes Body Medical Devices: pacemaker Cardiac Surgery: Yes (pacemaker, lt femoral stent) Section: Yes (x1) Cholecystectomy: Yes Ear Surgery: No Endocrine Surgery: No Eye Surgery: No Genitourinary Surgery: No Joint Replacement: No Neurologic Surgery: No Oral Surgery: Yes (tonsillectomy) Pacemaker: Yes (rt chest) Thoracic Surgery: No Tonsillectomy: Yes Other Surgery: Yes (port placed) Social History Alcohol Use: No Tobacco Use: No Substance Use: No ( ) Allergies-Medications (Allergen,Severity, Reaction): Coded Allergies: tramadol (Verified Allergy, Intermediate, Rash, 10/18/17) MRI PRECAUTION (Verified Adverse Reaction, Severe, PACEMAKER IS NOT A BIOTRONIK OR MEDTRONIC 06/15/16 KMD, 10/18/17) PACEMAKER IS NOT A BIOTRONIK OR MEDTRONIC CONDITIONAL PACEMAKER. CALLED BOTH COMPANIES TO CONFIRM. acetaminophen (Verified Adverse Reaction, Severe, Nausea/Vomiting, ) metformin (Verified Adverse Reaction, Severe, DIARRHEA, 10/18/17) morphine (Verified Adverse Reaction, Severe, Dizziness, 10/18/17) oxycodone (Verified Adverse Reaction, Severe, Nausea/Vomiting, 10/18/17) prochlorperazine (Verified Adverse Reaction, Severe, ANXIETY, 10/18/17) ANXIETY Reported Meds & Prescriptions Reported Meds & Active Scripts Active Bactrim DS (Sulfamethoxazole-Trimethoprim) 800-160 Mg Tab 1 Tab PO BID 10 Days Keflex (Cephalexin) 500 Mg Cap 500 Mg PO Q6H 10 Days Midodrine 5 Mg Tab 5 Mg PO TID Gabapentin 400 Mg Cap 400 Mg PO TID Reported Atorvastatin (Atorvastatin Calcium) 40 Mg Tab 40 Mg PO HS Januvia (Sitagliptin Phosphate) 100 Mg Tab 100 Mg PO DAILY Levemir Inj (Insulin Detemir) 1,000 unit/ 10 ML Vial 5 Units SQ BID Do not mix with any other Insulin. Review of Systems Except as stated in HPI: all other systems reviewed are Neg Physical Exam Narrative GENERAL: Well-nourished, well-developed female patient, in no acute distress; afebrile SKIN: Warm and dry. Approximately 2 cm diameter necrotic appearing callused area to the bottom of the left foot at the area of the first metatarsal; it is edematous and with erythema; with warmth to touch; 2+ pedal pulse. HEAD: Atraumatic. Normocephalic. EYES: Pupils equal and round. No scleral icterus. No injection or drainage. ENT: Mucosa pink and moist. Airway patent. NECK: Trachea midline. CARDIOVASCULAR: Regular rate and rhythm. No murmur appreciated. RESPIRATORY: No accessory muscle use. Clear to auscultation. Breath sounds equal bilaterally. GASTROINTESTINAL: Abdomen soft, tenderness on palpation to bilateral mid abdomen , nondistended. Hepatic and splenic margins not palpable. Bowel sounds are active 4 quadrants. Nonrigid. No rebound tenderness. No guarding. BACK: No CVA tenderness. MUSCULOSKELETAL: No obvious deformities. No clubbing. No cyanosis. No edema. NEUROLOGICAL: Awake and alert. Oriented 3. No obvious cranial nerve deficits. Motor grossly within normal limits. Normal speech. PSYCHIATRIC: Appropriate mood and affect; insight and judgment normal. Data Data Last Documented VS Vital Signs Date Time Temp Pulse Resp B/P (MAP) Pulse Ox O2 Delivery O2 Flow Rate FiO2 10/18/17 15:00 98 Room Air 10/18/17 12:27 98.2 106 14 Orders Orders Complete Blood Count With Diff (10/18/17 12:55) Comprehensive Metabolic Panel (10/18/17 12:55) Lipase (10/18/17 12:55) Foot, Complete ([id number]) (10/18/17 14:04) Urinalysis - C+S If Indicated (10/18/17 14:04) Iv Access Insert/Monitor (10/18/17 14:04) Ecg Monitoring (10/18/17 14:04) Oximetry (10/18/17 14:04) Sodium Chlor 0.9% 1000 Ml Inj (Ns 1000 M (10/18/17 14:04) Sodium Chloride 0.9% Flush (Ns Flush) (10/18/17 14:15) Ct Abd/Pel W Iv Contrast(Rout) (10/18/17 14:04) Iohexol 350 Inj (Omnipaque 350 Inj) (10/18/17 15:39) Urine Culture (10/18/17 15:45) Ed Discharge Order (10/18/17 17:24) Cephalexin (Keflex) (10/18/17 17:30) Sulfamet-Trimeth Ds 800-160 Mg (Bactrim (10/18/17 17:30) Labs Laboratory Tests Test 10/18/17 13:10 10/18/17 15:45 White Blood Count 9.0 TH/MM3 Red Blood Count 3.33 MIL/MM3 Hemoglobin 9.7 GM/DL Hematocrit 29.1 % Mean Corpuscular Volume 87.4 FL Mean Corpuscular Hemoglobin 29.1 PG Mean Corpuscular Hemoglobin Concent 33.2 % Red Cell Distribution Width 14.0 % Platelet Count 268 TH/MM3 Mean Platelet Volume 7.5 FL Neutrophils (%) (Auto) 84.2 % Lymphocytes (%) (Auto) 10.5 % Monocytes (%) (Auto) 4.5 % Eosinophils (%) (Auto) 0.4 % Basophils (%) (Auto) 0.4 % Neutrophils # (Auto) 7.6 TH/MM3 Lymphocytes # (Auto) 0.9 TH/MM3 Monocytes # (Auto) 0.4 TH/MM3 Eosinophils # (Auto) 0.0 TH/MM3 Basophils # (Auto) 0.0 TH/MM3 CBC Comment DIFF FINAL Differential Comment Blood Urea Nitrogen 11 MG/DL Creatinine 0.73 MG/DL Random Glucose 226 MG/DL Total Protein 8.3 GM/DL Albumin 3.1 GM/DL Calcium Level 10.1 MG/DL Alkaline Phosphatase 102 U/L Aspartate Amino Transf (AST/SGOT) 7 U/L Alanine Aminotransferase (ALT/SGPT) 11 U/L Total Bilirubin 0.3 MG/DL Sodium Level 135 MEQ/L Potassium Level 4.3 MEQ/L Chloride Level 99 MEQ/L Carbon Dioxide Level 30.8 MEQ/L Anion Gap 5 MEQ/L Estimat Glomerular Filtration Rate 84 ML/MIN Lipase 198 U/L Urine Color LIGHT-YELLOW Urine Turbidity HAZY Urine pH 7.0 Urine Specific [place] 1.012 Urine Protein NEG mg/dL Urine Glucose (UA) 150 mg/dL Urine Ketones NEG mg/dL Urine Occult Blood NEG Urine Nitrite NEG Urine Bilirubin NEG Urine Urobilinogen LESS THAN 2.0 MG/DL Urine Leukocyte Esterase LARGE Urine RBC 3 /hpf Urine WBC 21 /hpf Urine Squamous Epithelial Cells 2 /hpf Urine Amorphous Sediment RARE Urine Bacteria MANY /hpf Microscopic Urinalysis Comment CULTURE INDICATED MDM Medical Decision Making Medical Screen Exam Complete: Yes Emergency Medical Condition: Yes Medical Record Reviewed: Yes Differential Diagnosis Cellulitis, diabetic foot ulcer, osteomyelitis, nonspecific abdominal pain, pancreatitis, UTI, cystitis, pyelonephritis Narrative Course 52-year-old female with abdominal pain and cellulitis of the left foot. She is diabetic and has history of diabetic ulcers. CBC, CMP, urinalysis, lipase, CT abdomen/pelvis, normal saline bolus, left foot x-ray ordered. I reviewed the patient's medical record and she was seen here on September 30 for left foot cellulitis and at the time she was taking Bactrim and the provider added Keflex. 1425: Hemoglobin 9.7 which is consistent with past levels; otherwise CBC unremarkable. Lipase 198. Glucose 226, otherwise CMP unremarkable. 1534: Left Foot x-ray concludes: Foot X-Ray 10/18/17 1404 Signed Impressions: Service Date/Time: Monday, October 18, 2017 14:32 - CONCLUSION: 1. Soft tissue abnormality beneath the first digit. No findings to indicate osteomyelitis identified. No acute fractures seen. Te Sorensen MD Foot X-ray results discussed with the patient. Keflex and Bactrim will be prescribed for home. instructed patient o follow up [facility] podiat[facility]. 1715: Urinalysis with signs of infection and reflux to culture. CT abdomen/ pelvis concludes: . No acute abnormality in the abdomen or pelvis. 2. Previously noted lingular density is not visualized on the current exam and may be beyond the imaged portion of the lower thorax. 3. Redemonstration of prominent endometrium. Consider further evaluation with outpatient Pelvic ultrasound examination if not already performed. She provided a copy of the CT report. Instructed patient to follow up outpatient for pelvic US. Keflex prescribed for home. Instructed patient to follow up with primary care provider. Patient verbalizes understanding and agreement with treatment plan. Patient is medically cleared and stable for discharge. Discussed reasons to return to the emergency department. Patient agrees with treatment plan. The patients vital signs are stable and the patient is stable for outpatient follow-up and treatment. Patient discharged home, stable and in no acute distress. Diagnosis Primary Impression: Abdominal pain Qualified Codes: R10.9 - Unspecified abdominal pain Additional Impressions: UTI (urinary tract infection) Qualified Codes: N39.0 - Urinary tract infection, site not specified Cellulitis of left foot Diabetic foot ulcer Qualified Codes: E11.621 - Type 2 diabetes mellitus with foot ulcer; L97.429 - Non-pressure chronic ulcer of left heel and midfoot with unspecified severity Referrals: [facility] [employer] Primary Care Physician Patient Instructions: Abdominal Pain (ED), Cellulitis (ED), Chronic Wound Care (DC), Diabetic Foot Ulcers (ED), General Instructions, Urinary Tract Infection in Women (ED) Additional Instructions: Antibiotics as prescribed Drink plenty of fluids Maintain good personal hygiene Refer to discharge instructions for chronic wound care Follow-up with primary care provider Follow up for outpatient pelvic ultrasound Return to the emergency department immediately with worsening of symptoms Med/Other Pt SpecificInfo: Prescription(s) given Scripts Sulfamethoxazole-Trimethoprim (Bactrim DS) 800-160 Mg Tab 1 TAB PO BID for Infection for 10 Days, #20 TAB 0 Refills Prov: Melba Mcadams 10/18/17 Cephalexin (Keflex) 500 Mg Cap 500 MG PO Q6H for Infection for 10 Days, #40 CAP 0 Refills Prov: Melba Mcadams 10/18/17 Disposition: 01 DISCHARGE HOME Condition: Stable Melba Mcadams Oct 18, 2017 14:04
[2017-10-18] MEDS ORDERED: SODIUM CHLORIDE 0.9% FLUSH 10 ML FLUSH IV FLUSH PRN (14:15)
--- NOTE | 2017-10-18 14:54 | RADRPT ---
EXAM DATE/TIME: 10/18/2017 14:32 [facility] COMPARISON: CHEST SINGLE AP, May 25, 2017, 12:16. INDICATIONS : Left foot pain and inflammation. MEDICAL HISTORY : Hypertension. Pancreatitis. Hepatitis C. Throat cancer. SURGICAL HISTORY : Pacemaker. Leg stent ENCOUNTER: Initial ACUITY: 1 week PAIN SCORE: 6/10 LOCATION: Left plantar surface. FINDINGS: The exam demonstrates a soft tissue along the plantar surface beneath the first digit. No bony change s are seen. No acute fractures identified. The alignment is adequate. CONCLUSION: 1. Soft tissue abnormality beneath the first digit. No findings to indicate osteomyelitis identified. No acute fractures seen. Te Sorensen MD on October 18, 2017 at 14:50 Board Certified Radiologist. This report was verified electronically.
[2017-10-18 15:00] VITALS: O2SAT 98
[2017-10-18] MEDS ORDERED: IOHEXOL 350 MG/ML 10 ML VIAL (for RAD DIAG) IVCONTRAST ONE (15:39)
--- NOTE | 2017-10-18 15:50 | RADRPT ---
EXAM DATE/TIME: 10/18/2017 15:26 [facility] COMPARISON: CT ABDOMEN & PELVIS W CONTRAST, May 25, 2017, 13:42. INDICATIONS : Abdominal pain IV CONTRAST: 69 cc Omnipaque 350 (iohexol) IV ORAL CONTRAST: No oral contrast ingested. RADIATION DOSE: 7.07 CTDIvol (mGy) MEDICAL HISTORY : Hypertension. Chronic obstructive pulmonary disease. Hepatitis C. SURGICAL HISTORY : Appendectomy. Cholecystectomy. ENCOUNTER: Initial ACUITY: 1 day PAIN SCALE: 6/10 LOCATION: abdomen TECHNIQUE: Volumetric scanning of the abdomen and pelvis was performed. Using automated exposure control and ad justment of the mA and/or kV according to patient size, radiation dose was kept as low as reasonably achievable to obtain optimal diagnostic quality images. DICOM format image data is available electro nically for review and comparison. FINDINGS: LOWER LUNGS: Previously described lingular density is not demonstrated on current exam and may be above the imaged portion of the lower thorax. LIVER: Homogeneous density without lesion. There is no dilation of the biliary tree. Gallbladder is surgica lly absent. SPLEEN: Normal size without lesion. PANCREAS: Within normal limits. KIDNEYS: Normal in size and shape. There is no mass, stone or hydronephrosis. ADRENAL GLANDS: Within normal limits. VASCULAR: There is no aortic aneurysm. BOWEL/MESENTERY: The stomach, small bowel, and colon demonstrate no acute abnormality. There is no free intraperitone al air or fluid. ABDOMINAL WALL: Within normal limits. RETROPERITONEUM: There is no lymphadenopathy. BLADDER: No wall thickening or mass. REPRODUCTIVE: Redemonstration of prominent endometrium. INGUINAL: There is no lymphadenopathy or hernia. MUSCULOSKELETAL: Degenerative changes of the lumbar spine with small bone island at L1. CONCLUSION: 1. No acute abnormality in the abdomen or pelvis. 2. Previously noted lingular density is not visualized on the current exam and may be beyond the imag ed portion of the lower thorax. 3. Redemonstration of prominent endometrium. Consider further evaluation with outpatient Pelvic ultra sound examination if not already performed. Yakov Pickett MD on October 18, 2017 at 15:42 Board Certified Radiologist. This report was verified electronically.
[2017-10-18 16:38] LABS: BACTERIA, URINE MANY /hpf; BLOOD, URINE NEG (NEG); COMMENT (UR) CULTURE INDICATED; CULTURE IF INDICATED CULTURE INDICATED; GLUCOSE,URINE 150 mg/dL (NEG); KETONE, URINE NEG (NEG); NITRITE,URINE NEG (NEG); SQUAMOUS EPITHELIAL CELL URINE 2 /hpf (0-5); URINE COLOR LIGHT-YELLOW (YELLW/STRAW)
[2017-10-18] MEDS ORDERED: CEPH-460 PO (17:21)
[2017-10-18] MEDS ORDERED: BACT800T5 PO (17:21)
[2017-10-18] MEDS ORDERED: SULFAMETHOXAZOLE-TRIMETHOPRIM DS 800-160 MG TAB PO ONE (17:30)
[2017-10-18] MEDS ORDERED: CEPHALEXIN MONOHYDRATE 500 MG CAP PO ONE (17:30)
== END 2017-10-18 18:27 | disposition home or self-care (01) ==
LOC: NEPD 12:19
DX: N39.0 Urinary tract infection, site not specified (principal); B96.20 Unspecified Escherichia coli [E. coli] as the cause of diseases classified elsewhere; E11.628 Type 2 diabetes mellitus with other skin complications; L03.116 Cellulitis of left lower limb; R11.0 Nausea; E11.40 Type 2 diabetes mellitus with diabetic neuropathy, unspecified; I48.91 Unspecified atrial fibrillation; I10 Essential (primary) hypertension; J44.9 Chronic obstructive pulmonary disease, unspecified
CPT/HCPCS: 73630; 74177; 80053; 81001; 83690; 85025; 87077; 87086; 87186; 96360; 96361; 99285; J7030; Q9967

== ENCOUNTER 2017-10-19 16:56 | Emergency (ER) | payer MEDICARE ==
[~2017-10-19] VITALS: Ht 172.7 cm; Wt 70.0 kg
[~2017-10-19 16:56] MED LIST changes: +ATOR40TA16 PO; -MUPI2%T TOPICAL
[2017-10-19 17:09] VITALS: BP 147/71; PULSE 109; RESP 18; TEMP 98.3; O2SAT 99
[2017-10-19] MEDS ORDERED: SODIUM CHLORID 0.9% 500 ML INJ 500 ML IV ONE (17:30)
--- NOTE | 2017-10-19 17:45 | PD ---
HPI Chief Complaint: Dizziness Time Seen by Provider: 17:17 Travel History International Travel<30 days: No Contact w/Intl Traveler<30days: No Traveled to known affect area: No History of Present Illness HPI 52-year-old female presents to the ED for evaluation of episodic dizziness. Onset at 2:00 this afternoon while she was visiting a friend in care home. She endorses a single episode of vomiting she states that she's only had a cup of coffee to eat or drink today. Patient states she is asymptomatic at this time. She was seen in the ED yesterday and diagnosed with UTI, written several prescriptions. She has not filled the prescriptions or taken the medications. PFSH Past Medical History Hx Anticoagulant Therapy: No Asthma: Yes Atrial Fibrillation: Yes Heart Rhythm Problems: Yes (Pacemaker) Cancer: Yes (throat) Cardiovascular Problems: Yes Chemotherapy: Yes Chest Pain: Yes COPD: Yes Cerebrovascular Accident: Yes Diabetes: Yes Patient Takes Glucophage: No Diminished Hearing: No Endocrine: Yes Gastrointestinal Disorders: Yes (esophagitis, gastritis, pancreantitis, HEP C) GERD: No Genitourinary: Yes Headaches: Yes Hepatitis: Yes (HEP C) Hiatal Hernia: No Heparin Induced Thrombocytopen: No Hypertension: Yes Immune Disorder: No Implanted Vascular Access Dvce: Yes (PORT R CHEST) Kidney Stones: Yes Musculoskeletal: Yes Neurologic: Yes (diabetic peripheral neuropathy) Psychiatric: No Reproductive: No Respiratory: Yes (asthma) Immunizations Current: Yes Migraines: Yes Pancreatitis: Yes Radiation Therapy: Yes (last done on 11/18/16) Renal Failure: No Thyroid Disease: No Triglycerides - High: Yes Tetanus Vaccination: < 5 Years Influenza Vaccination: No PNEUMOCCOCAL Vaccine (Year): 2 ?: Not Menopausal: Yes : 3 Para: 2 Miscarriage: 1 : 0 Past Surgical History Abdominal Surgery: Yes (appendectomy, cholecystectomy) AICD: No Appendectomy: Yes Body Medical Devices: pacemaker Cardiac Surgery: Yes (pacemaker, lt femoral stent) Section: Yes (x1) Cholecystectomy: Yes Ear Surgery: No Endocrine Surgery: No Eye Surgery: No Genitourinary Surgery: No Joint Replacement: No Neurologic Surgery: No Oral Surgery: Yes (tonsillectomy) Pacemaker: Yes (rt chest) Thoracic Surgery: No Tonsillectomy: Yes Other Surgery: Yes (port placed) Social History Alcohol Use: No Tobacco Use: No Substance Use: No ( ) Allergies-Medications (Allergen,Severity, Reaction): Coded Allergies: tramadol (Verified Allergy, Intermediate, Rash, 10/19/17) MRI PRECAUTION (Verified Adverse Reaction, Severe, PACEMAKER IS NOT A BIOTRONIK OR MEDTRONIC 06/15/16 KMD, 10/19/17) PACEMAKER IS NOT A BIOTRONIK OR MEDTRONIC CONDITIONAL PACEMAKER. CALLED BOTH COMPANIES TO CONFIRM. acetaminophen (Verified Adverse Reaction, Severe, Nausea/Vomiting, ) metformin (Verified Adverse Reaction, Severe, DIARRHEA, 10/19/17) morphine (Verified Adverse Reaction, Severe, Dizziness, 10/19/17) oxycodone (Verified Adverse Reaction, Severe, Nausea/Vomiting, 10/19/17) prochlorperazine (Verified Adverse Reaction, Severe, ANXIETY, 10/19/17) ANXIETY Reported Meds & Prescriptions Reported Meds & Active Scripts Active Bactrim DS (Sulfamethoxazole-Trimethoprim) 800-160 Mg Tab 1 Tab PO BID 10 Days Keflex (Cephalexin) 500 Mg Cap 500 Mg PO Q6H 10 Days Midodrine 5 Mg Tab 5 Mg PO TID Gabapentin 400 Mg Cap 400 Mg PO TID Reported Atorvastatin (Atorvastatin Calcium) 40 Mg Tab 40 Mg PO HS Januvia (Sitagliptin Phosphate) 100 Mg Tab 100 Mg PO DAILY Levemir Inj (Insulin Detemir) 1,000 unit/ 10 ML Vial 5 Units SQ BID Do not mix with any other Insulin. Review of Systems Except as stated in HPI: all other systems reviewed are Neg Physical Exam Narrative GENERAL: Well-nourished, well-developed disheveled white female in no acute distress. SKIN: Focused skin assessment warm/dry. 2 cm chronic ulcer of the plantar aspect of the foot, just inferior to the DP joint of the great toe. No warmth, erythema, edema, discharge. HEAD: Normocephalic. EYES: No scleral icterus. No injection or drainage. NECK: Supple, trachea midline. No JVD or lymphadenopathy. CARDIOVASCULAR: Regular rate and rhythm without murmurs, gallops, or rubs. RESPIRATORY: Breath sounds clear and equal bilaterally. No accessory muscle use. GASTROINTESTINAL: Abdomen soft, non-tender, nondistended. Active bowel sounds. MUSCULOSKELETAL: No cyanosis, or edema. NEUROLOGICAL: Awake and alert. Cranial nerves II through XII intact. Motor and sensory grossly within normal limits. Five out of 5 muscle strength in all muscle groups. Normal speech. BACK: Nontender without obvious deformity. No CVA tenderness. Data Data Last Documented VS Vital Signs Date Time Temp Pulse Resp B/P (MAP) Pulse Ox O2 Delivery O2 Flow Rate FiO2 10/19/17 17:16 109 18 99 Room Air 10/19/17 17:09 98.3 147/71 (96) Orders Orders Blood Glucose (10/19/17 17:21) Ct Brain W/O Iv Contrast(Rout) (10/19/17 ) Sodium Chlorid 0.9% 500 Ml Inj (Ns 500 M (10/19/17 17:30) Ed Discharge Order (10/19/17 18:05) MDM Medical Decision Making Medical Screen Exam Complete: Yes Emergency Medical Condition: Yes Differential Diagnosis Hypoglycemia versus caffeine effect versus noncompliance versus malingering versus other Narrative Course 52-year-old female presents to the ED for evaluation of episodic dizziness. Onset at 2:00 this afternoon while she was visiting a friend in care home. She endorses a single episode of vomiting she states that she's only had a cup of coffee to eat or drink today. Patient states she is asymptomatic at this time. She was seen in the ED yesterday and diagnosed with UTI, written several prescriptions. She has not filled the prescriptions or taken the medications. In the ED the patient is refusing an IV. I reviewed the lab work from yesterday which reveals no concerning abnormalities. Blood glucose 76. CT brain reveals no acute abnormalities. I suspect that the patient was dizzy from caffeine use today. She does admit to drinking a large coffee without eating any food. She is currently asymptomatic. She is instructed to eat meals and normal intervals, be cautious when using caffeine, follow up with the [facility]. She is stable and discharged home. Diagnosis Primary Impression: Episode of dizziness Referrals: [facility] Patient Instructions: Dizziness (ED), General Instructions Additional Instructions: Rest, hydrate. Eat meals at regular intervals. Use caution when using caffeine. Follow-up with the [facility] as planned. Return to the ED for any urgent or emergent medical condition. Disposition: 01 DISCHARGE HOME Condition: Stable Latanya Mckay Oct 19, 2017 17:45
--- NOTE | 2017-10-19 18:01 | RADRPT ---
EXAM DATE/TIME: 10/19/2017 17:47 [facility] COMPARISON: CT BRAIN W/O CONTRAST, May 25, 2017, 13:34. INDICATIONS : Dizziness, nausea, vomiting. RADIATION DOSE: 37.37 CTDIvol (mGy) MEDICAL HISTORY : Stroke. Cardiovascular disease Hypertension.Throat cancer. SURGICAL HISTORY : Pacemaker. Appendectomy.Cholecystectomy. ENCOUNTER: Initial ACUITY: 1 day PAIN SCALE: 0/10 LOCATION: cranial TECHNIQUE: Multiple contiguous axial images were obtained of the head. Using automated exposure control and adj ustment of the mA and/or kV according to patient size, radiation dose was kept as low as reasonably a chievable to obtain optimal diagnostic quality images. DICOM format image data is available electro nically for review and comparison. FINDINGS: CEREBRUM: The ventricles are normal for age. No evidence of midline shift, mass lesion, hemorrhage or acute in farction. No extra-axial fluid collections are seen. POSTERIOR FOSSA: The cerebellum and brainstem are intact. The 4th ventricle is midline. The cerebellopontine angle i s unremarkable. EXTRACRANIAL: The visualized portion of the orbits is intact. Right mastoid sinus remains opacified. SKULL: The calvaria is intact. No evidence of skull fracture. CONCLUSION: 1. Stable CT of the brain. 2. Right mastoid sinus opacification characteristic of acute mastoiditis. 3. No evidence of acute infarct, hemorrhage, mass or edema. Uriel Boykin MD on October 19, 2017 at 17:58 Board Certified Radiologist. This report was verified electronically.
== END 2017-10-19 19:33 | disposition home or self-care (01) ==
LOC: NEPE 16:56
DX: R42 Dizziness and giddiness (principal); B19.20 Unspecified viral hepatitis C without hepatic coma; E11.9 Type 2 diabetes mellitus without complications; I10 Essential (primary) hypertension; Z79.4 Long term (current) use of insulin
CPT/HCPCS: 70450; 99285

== ENCOUNTER 2017-10-21 18:13 | Inpatient (IN) | payer MEDICARE ==
[~2017-10-21] VITALS: Ht 167.6 cm; Wt 65.9 kg
[2017-10-21 18:27] VITALS: BP 126/86; PULSE 110; RESP 16; TEMP 98.6; O2SAT 100
[2017-10-21 19:11] VITALS: BP 137/87; PULSE 109; RESP 19; TEMP 100; O2SAT 98
[2017-10-21] MEDS ORDERED: SODIUM CHLOR 0.9% 1000 ML INJ 1,000 ML IV ONE (19:14)
[2017-10-21] MEDS ORDERED: NITROFURANTOIN MONOHYD MACROCR 100 MG CAP PO ONE (19:15)
[2017-10-21] MEDS ORDERED: SODIUM CHLORIDE 0.9% FLUSH 10 ML FLUSH IVF PRN (19:15)
--- NOTE | 2017-10-21 19:22 | PD ---
HPI Chief Complaint: Fall Time Seen by Provider: 19:10 Travel History International Travel<30 days: No Contact w/Intl Traveler<30days: No Traveled to known affect area: No History of Present Illness HPI 52 y/o female with hx of dm, dysautonomia, hyperlipidemia, peripheral vascular disease, pacemaker, hepatitis C. She presents for evaluation of a syncopal event. She reports that today she was ambulating in her house to open her door when she became lightheaded and passed out and landed on the carpet. She is complaining of some pain in left side of her rib cage and left hip from the fall. Pain is mild, worse with movement. She reports that she's been having frequent dizzy episodes over the past several months. She typically uses a wheelchair at home but today she was ambulating without it. This is her third visit this weekshe was seen here on October 18 for evaluation of abdominal pain and found to have a urinary tract infection. She was seen here on October 19 for evaluation of a dizzy episode. Her urine culture results have grown out extended spectrum beta-lactamase Escherichia coli. A prescription for Macrobid was sent to a pharmacy today however she never picked it up. She has no other complaints at this time. PFSH Past Medical History Hx Anticoagulant Therapy: No Arthritis: No Asthma: Yes Atrial Fibrillation: Yes Autoimmune Disease: No Blood Disorders: No Anxiety: No Depression: No Heart Rhythm Problems: Yes (Pacemaker) Cancer: Yes (throat) Cardiovascular Problems: Yes High Cholesterol: No Chemotherapy: Yes Chest Pain: Yes Congestive Heart Failure: No COPD: Yes Cerebrovascular Accident: Yes Diabetes: Yes Patient Takes Glucophage: No Diminished Hearing: No Endocrine: Yes Gastrointestinal Disorders: Yes (esophagitis, gastritis, pancreantitis, HEP C) GERD: No Glaucoma: No Genitourinary: Yes Headaches: Yes Hepatitis: Yes (HEP C) Hiatal Hernia: No Heparin Induced Thrombocytopen: No Hypertension: Yes Immune Disorder: No Implanted Vascular Access Dvce: Yes (PORT R CHEST) Kidney Stones: Yes Musculoskeletal: Yes Neurologic: Yes (diabetic peripheral neuropathy) Psychiatric: No Reproductive: No Respiratory: Yes (asthma) Immunizations Current: Yes Migraines: Yes Myocardial Infarction: No Pancreatitis: Yes Radiation Therapy: Yes (last done on 11/18/16) Renal Failure: No Seizures: No Sickle Cell Disease: No Sleep Apnea: No Thyroid Disease: No Triglycerides - High: Yes Ulcer: No PNEUMOCCOCAL Vaccine (Year): 2 ?: Not Menopausal: Yes : 3 Para: 2 Miscarriage: 1 : 0 Ectopic : No Ovarian Cysts: No Tubal Ligation: No Past Surgical History Abdominal Surgery: Yes (appendectomy, cholecystectomy) AICD: No Appendectomy: Yes Arteriovenous Shunt: No Body Medical Devices: pacemaker Cardiac Surgery: Yes (pacemaker, lt femoral stent) Section: Yes (x1) Cholecystectomy: Yes Ear Surgery: No Endocrine Surgery: No Eye Surgery: No Genitourinary Surgery: No Hysterectomy: No Insulin Pump: No Joint Replacement: No Neurologic Surgery: No Oral Surgery: Yes (tonsillectomy) Pacemaker: Yes (rt chest) Thoracic Surgery: No Tonsillectomy: Yes Other Surgery: Yes (port placed) Social History Alcohol Use: No Tobacco Use: No Substance Use: No ( ) Allergies-Medications (Allergen,Severity, Reaction): Coded Allergies: tramadol (Verified Allergy, Intermediate, Rash, 10/19/17) MRI PRECAUTION (Verified Adverse Reaction, Severe, PACEMAKER IS NOT A BIOTRONIK OR MEDTRONIC 06/15/16 KMD, 10/19/17) PACEMAKER IS NOT A BIOTRONIK OR MEDTRONIC CONDITIONAL PACEMAKER. CALLED BOTH COMPANIES TO CONFIRM. acetaminophen (Verified Adverse Reaction, Severe, Nausea/Vomiting, ) metformin (Verified Adverse Reaction, Severe, DIARRHEA, 10/19/17) morphine (Verified Adverse Reaction, Severe, Dizziness, 10/19/17) oxycodone (Verified Adverse Reaction, Severe, Nausea/Vomiting, 10/19/17) prochlorperazine (Verified Adverse Reaction, Severe, ANXIETY, 10/19/17) ANXIETY Reported Meds & Prescriptions Reported Meds & Active Scripts Active Bactrim DS (Sulfamethoxazole-Trimethoprim) 800-160 Mg Tab 1 Tab PO BID 10 Days Keflex (Cephalexin) 500 Mg Cap 500 Mg PO Q6H 10 Days Midodrine 5 Mg Tab 5 Mg PO TID Gabapentin 400 Mg Cap 400 Mg PO TID Reported Atorvastatin (Atorvastatin Calcium) 40 Mg Tab 40 Mg PO HS Januvia (Sitagliptin Phosphate) 100 Mg Tab 100 Mg PO DAILY Levemir Inj (Insulin Detemir) 1,000 unit/ 10 ML Vial 5 Units SQ BID Do not mix with any other Insulin. Review of Systems Except as stated in HPI: all other systems reviewed are Neg Physical Exam Narrative GENERAL: This is a chronically ill-appearing female who is in no acute distress. SKIN: Warm and dry. Chronic-looking wound noted on the plantar aspect of the left foot, nontender. HEAD: Atraumatic. Normocephalic. EYES: Pupils equal and round. No scleral icterus. No injection or drainage. ENT: No nasal bleeding or discharge. Mucous membranes pink and moist. NECK: Trachea midline. No JVD. CARDIOVASCULAR: Regular rate and rhythm. No murmur appreciated. RESPIRATORY: No accessory muscle use. Clear to auscultation. Breath sounds equal bilaterally. GASTROINTESTINAL: Abdomen soft, non-tender, nondistended. Hepatic and splenic margins not palpable. MUSCULOSKELETAL: No obvious deformities. Mild tenderness to palpation to the lateral left hip and lateral left rib cage. The patient maintains full range of motion of the upper and lower extremities. NEUROLOGICAL: Awake and alert. No obvious cranial nerve deficits. Motor grossly within normal limits. Normal speech. PSYCHIATRIC: Appropriate mood and affect; insight and judgment normal. Data Data Last Documented VS Vital Signs Date Time Temp Pulse Resp B/P (MAP) Pulse Ox O2 Delivery O2 Flow Rate FiO2 10/21/17 20:34 108 19 122/67 (85) 10/21/17 19:49 98 Room Air 10/21/17 19:11 100.0 Orders Orders Electrocardiogram (10/21/17 19:14) Complete Blood Count With Diff (10/21/17 19:14) Comprehensive Metabolic Panel (10/21/17 19:14) Magnesium (Mg) (10/21/17 19:14) Ckmb (Isoenzyme) Profile (10/21/17 19:14) Troponin I (10/21/17 19:14) Chest, Single Ap (10/21/17 19:14) Ct Brain W/O Iv Contrast(Rout) (10/21/17 19:14) Blood Glucose (10/21/17 19:14) Ecg Monitoring (10/21/17 19:14) Iv Access Insert/Monitor (10/21/17 19:14) Oximetry (10/21/17 19:14) Sodium Chloride 0.9% Flush (Ns Flush) (10/21/17 19:15) Sodium Chlor 0.9% 1000 Ml Inj (Ns 1000 M (10/21/17 19:14) Orthostatic Vital Signs (10/21/17 19:14) Hip, Uni(Ap&Lat) W Ap Pelvis (10/21/17 ) Nitrofurantoin Monohyd Macrocr (Macrobid (10/21/17 19:15) Lactic Acid Sepsis Protocol (10/21/17 19:15) Blood Culture (10/21/17 19:15) Ampicillin-Sulbactam Inj (Unasyn Inj) (10/21/17 19:30) Admit Order (Ed Use Only) (10/21/17 21:26) Labs Laboratory Tests Test 10/21/17 19:40 White Blood Count 10.6 TH/MM3 Red Blood Count 3.13 MIL/MM3 Hemoglobin 8.9 GM/DL Hematocrit 26.9 % Mean Corpuscular Volume 85.8 FL Mean Corpuscular Hemoglobin 28.5 PG Mean Corpuscular Hemoglobin Concent 33.2 % Red Cell Distribution Width 13.9 % Platelet Count 265 TH/MM3 Mean Platelet Volume 7.9 FL Neutrophils (%) (Auto) 83.3 % Lymphocytes (%) (Auto) 8.9 % Monocytes (%) (Auto) 7.4 % Eosinophils (%) (Auto) 0.2 % Basophils (%) (Auto) 0.2 % Neutrophils # (Auto) 8.8 TH/MM3 Lymphocytes # (Auto) 0.9 TH/MM3 Monocytes # (Auto) 0.8 TH/MM3 Eosinophils # (Auto) 0.0 TH/MM3 Basophils # (Auto) 0.0 TH/MM3 CBC Comment DIFF FINAL Differential Comment Blood Urea Nitrogen 13 MG/DL Creatinine 0.59 MG/DL Random Glucose 199 MG/DL Total Protein 8.0 GM/DL Albumin 2.6 GM/DL Calcium Level 9.5 MG/DL Magnesium Level 1.4 MG/DL Alkaline Phosphatase 98 U/L Aspartate Amino Transf (AST/SGOT) 8 U/L Alanine Aminotransferase (ALT/SGPT) 9 U/L Total Bilirubin 0.3 MG/DL Sodium Level 134 MEQ/L Potassium Level 3.8 MEQ/L Chloride Level 95 MEQ/L Carbon Dioxide Level 28.4 MEQ/L Anion Gap 11 MEQ/L Estimat Glomerular Filtration Rate 107 ML/MIN Lactic Acid Level 0.8 mmol/L Total Creatine Kinase 21 U/L Troponin I LESS THAN 0.02 NG/ML MDM Medical Decision Making Medical Screen Exam Complete: Yes Emergency Medical Condition: Yes Medical Record Reviewed: Yes Differential Diagnosis Urinary tract infection, sepsis, electrolyte abnormality, dehydration, orthostatic hypotension, vertigo, hypoglycemia, symptomatic anemia, arrhythmia Narrative Course The patient's vital signs have been reviewed and she is noted to be mildly tachycardic with an elevated temperature of 100. Concerned given her recent esbl+ UTI essentially untreated. Plan is for basic lab work, EKG, ECG monitoring pulse oximetry, CT brain. She will be given IV fluids and Unasyn. The patient's lab work and imaging studies have been reviewed. Discussed with the on-call resident who is agreeable with admission for observation. Diagnosis Primary Impression: Syncope Additional Impression: UTI (urinary tract infection) Admitting Information Admitting Physician Requests: Observation Zhen Merrill Oct 21, 2017 19:22
[2017-10-21] MEDS ORDERED: AMPICILLIN-SULBACTAM INJ 3 GM in SODIUM CHLORIDE 0.9% INJ 100 ML IV ONE (19:30)
[2017-10-21 19:49] VITALS: O2SAT 98
--- NOTE | 2017-10-21 20:20 | RADRPT ---
EXAM DATE/TIME: 10/21/2017 20:04 [facility] COMPARISON: No previous studies available for comparison. INDICATIONS : Trauma; fall. RADIATION DOSE: 37.51 CTDIvol (mGy) MEDICAL HISTORY : Cardiovascular disease. Hypertension. Cerebrovascular disease.throat cancer, pancreatitis, diabetes, Hep C SURGICAL HISTORY : Appendectomy. Cholecystectomy.radiation and chemo ENCOUNTER: Initial ACUITY: 1 day PAIN SCALE: 6/10 LOCATION: cranial TECHNIQUE: Multiple contiguous axial images were obtained of the head. Using automated exposure control and adj ustment of the mA and/or kV according to patient size, radiation dose was kept as low as reasonably a chievable to obtain optimal diagnostic quality images. DICOM format image data is available electro nically for review and comparison. FINDINGS: CEREBRUM: The ventricles are normal for age. No evidence of midline shift, mass lesion, hemorrhage or acute in farction. No extra-axial fluid collections are seen. POSTERIOR FOSSA: The cerebellum and brainstem are intact. The 4th ventricle is midline. The cerebellopontine angle i s unremarkable. EXTRACRANIAL: The visualized portion of the orbits is intact. SKULL: The calvaria is intact. No evidence of skull fracture. CONCLUSION: 1. No acute intracranial abnormalities. Mucosal thickening right maxillary sinus. Mika Weber MD on October 21, 2017 at 20:16 Board Certified Radiologist. This report was verified electronically.
[2017-10-21 20:34] VITALS: BP 122/67; RESP 19
[2017-10-21 20:50] LABS: AUTOMATED NEUTROPHIL # 8.8 TH/MM3 (1.8-7.7); BASOPHIL % 0.2 % (0.0-2.0); EOSINOPHIL % 0.2 % (0.0-4.0); HEMATOCRIT 26.9 % (35.0-46.0); HEMOGLOBIN 8.9 GM/DL (11.6-15.3); LYMPH % 8.9 % (9.0-44.0); LYMPHOCYTE # 0.9 TH/MM3 (1.0-4.8); MEAN CELL VOLUME 85.8 FL (80.0-100.0); MEAN CORPUSCULAR HEMOGLOBIN 28.5 PG (27.0-34.0); MEAN CORPUSCULAR HGB CONC 33.2 % (32.0-36.0); MEAN PLATELET VOLUME 7.9 FL (7.0-11.0); MONO % 7.4 % (0.0-8.0); MONOCYTE # 0.8 TH/MM3 (0-0.9); NEUT % 83.3 % (16.0-70.0); PLATELET COUNT 265 TH/MM3 (150-450); RED BLOOD COUNT 3.13 MIL/MM3 (4.00-5.30); RED CELL DISTRIBUTION WIDTH 13.9 % (11.6-17.2); WHITE BLOOD COUNT 10.6 TH/MM3 (4.0-11.0)
--- NOTE | 2017-10-21 20:57 | RADRPT ---
EXAM DATE/TIME: 10/21/2017 20:15 [facility] COMPARISON: CHEST SINGLE AP, May 25, 2017, 12:16. INDICATIONS : Rib pain. Trauma. Fall. MEDICAL HISTORY : Cardiovascular disease. Hypertension. Cerebrovascular disease.throat cancer,pancreatitis, diabetes, H ep C. SURGICAL HISTORY : Appendectomy. Cholecystectomy.radiation and chemo ENCOUNTER: Initial ACUITY: 1 day PAIN SCORE: 0/10 LOCATION: Bilateral chest FINDINGS: A single view of the chest demonstrates [id number] in superior vena cava. Pacer leads right atrium and right ventricle. No focal consolidation or effusion. No pneumothorax. CONCLUSION: 1. [id number] in superior vena cava. No focal consolidation. Mika Weber MD on October 21, 2017 at 20:54 Board Certified Radiologist. This report was verified electronically.
--- NOTE | 2017-10-21 20:59 | RADRPT ---
EXAM DATE/TIME: 10/21/2017 20:21 [facility] COMPARISON: No previous studies available for comparison. INDICATIONS : Trauma. Fall. Left hip pain. MEDICAL HISTORY : Cardiovascular disease. Hypertension. Cerebrovascular disease.throat cancer, pancreatitis, diabetes, Hep C. SURGICAL HISTORY : Appendectomy. Cholecystectomy.radiation and chemo ENCOUNTER: Initial ACUITY: 1 day PAIN SCORE: 10/10 LOCATION: Left Hip FINDINGS: Examination of the left hip was performed with AP Pelvis. The primary and secondary trabecular patte rn of the femoral neck is intact. The hip joint is of normal width without significant sclerosis or bony hypertrophy. The acetabulum is grossly intact. CONCLUSION: 1. No acute findings. Mild osteoarthritis at the bilateral hips. Mika Weber MD on October 21, 2017 at 20:55 Board Certified Radiologist. This report was verified electronically.
[2017-10-21 21:08] LABS: ALBUMIN 2.6 GM/DL (3.4-5.0); ALT (GPT) 9 U/L (10-53); AST (GOT) 8 U/L (15-37); BICARBONATE 28.4 MEQ/L (21.0-32.0); BLOOD UREA NITROGEN 13 MG/DL (7-18); CALCIUM 9.5 MG/DL (8.5-10.1); CHLORIDE 95 MEQ/L (98-107); CREATININE 0.59 MG/DL (0.50-1.00); GLOMERULAR FILTRATION RATE 107 ML/MIN (>89); GLUCOSE,RANDOM 199 MG/DL (74-106); MAGNESIUM 1.4 MG/DL (1.5-2.5); SODIUM (NA) 134 MEQ/L (136-145)
[2017-10-21 21:12] LABS: ALKALINE PHOSPHATASE 98 U/L (45-117); TOTAL BILIRUBIN ADULT 0.3 MG/DL (0.2-1.0); TROPONIN I LESS THAN 0.02 NG/ML (0.02-0.05)
--- NOTE | 2017-10-21 21:29 | EKG ---
Date Performed: 10/21/2017 Time Performed: 19:56:06 PTAGE: 52 years EKG: SINUS TACHYCARDIA LEFT ANTERIOR FASCICULAR BLOCK SEPTAL MYOCARDIAL INFARCTION ABNORMAL ECG PREVIOUS TRACING : 05/25/2017 11.54 Compared to previous tracing, heart rate has increased. DOCTOR: Kushal Cordero Interpretating Date/Time 10/21/2017 21:27:46
[2017-10-21 21:52] VITALS: O2SAT 99
--- NOTE | 2017-10-21 21:54 | HHI.HP ---
[facility] Service Family Medicine Primary Care Physician No Primary Care Physician Admission Diagnosis syncope, uti Diagnoses: International Travel<30 Days: No Contact w/Intl Traveler<30days: No Known Affected Area: No History of Present Illness Mrs. Arechiga is a 52 y/o F presenting to the ED after a fall at home. Patient states that earlier today she was ambulating without a balance aid to answer her front door when she became lightheaded and fell to the carbonate hitting her left shoulder, flank, and hip. She states that she can remember the fall, however after the fall she was "passed out" for approximately 5 minutes. Upon awakening, she noted 10/10 sharp pain down her left shoulder, hip, and flank. She states the pain is worse with movement and nothing has been able to alleviate her pain. She also reports multiple episodes of dizziness over the past few months. She complains of blurry vision, left-sided pain, abdominal pain , diarrhea, and syncope. She denies any fevers, chills, shortness of breath, chest pain, or calf tenderness. Of note, patient has been to the ER multiple times this week including 10/18 where she was found to have an ESBL Escherichia coli UTI for which she has not been treated. She endorses her urine having a foul smell, however she denies any dark color, dysuria, or hematuria. Patient was previously a patient of the [facility], however she has been discharged from clinic on 10/12. However patient will be admitted to the family practice service as this is within her 30 days of cross coverage while she attempts to find a new primary care provider. Review of Systems ROS Limitations: Uncooperative, Poor Historian Constitutional: DENIES: Fever, Chills Eyes: COMPLAINS OF: Blurred vision, DENIES: Double Vision Ears, nose, mouth, throat: DENIES: Throat pain, Running Nose Respiratory: DENIES: Cough, Shortness of breath Cardiovascular: COMPLAINS OF: Syncope, DENIES: Chest pain Gastrointestinal: COMPLAINS OF: Abdominal pain, Diarrhea, DENIES: Constipation , Nausea, Vomiting Genitourinary: DENIES: Dysuria Musculoskeletal: COMPLAINS OF: Joint pain, Back pain Integumentary: DENIES: Rash Hematologic/lymphatic: DENIES: Lymphadenopathy Immunologic/allergic: DENIES: Urticaria Neurologic: DENIES: Headache Psychiatric: DENIES: Mood changes Past Family Social History Past Medical History Poorly controlled DM secondary to noncompliance * Diagnosed in 2006 * Cannot tolerate metformin 2/2 diarrhea * Refuses insulin 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 Umanzor and radiation + cisplatin with Dr. Nagy * Misses appointment due to frequent hospitalizations and gets lost to follow-up ; due for PET scan spring 2016 which hasn't been done yet Peripheral neuropathy (has zero sensation in her feet) Dysautonomia * Gastroparesis * Orthostatic hypotension Hyperlipidemia Hypertriglyceridemia Peripheral vascular disease Pacemaker (because "heart stopped up in hospital") Asthma Hepatitis C Genital herpes and warts Osteoarthritis Cataracts History of pancreatitis History of osteomyelitis (s/p right 5th toe amputation) History of recurrent UTIs (including ESBL E. coli) Orthostatic hypotension * utilizes a wheelchair due significant symptoms when standing up and ambulating. It was able to ambulate with a walker. 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 CALLED BOTH COMPANIES TO CONFIRM. acetaminophen (Verified Adverse Reaction, Severe, Nausea/Vomiting, ) metformin (Verified Adverse Reaction, Severe, DIARRHEA, 10/19/17) morphine (Verified Adverse Reaction, Severe, Dizziness, 10/19/17) oxycodone (Verified Adverse Reaction, Severe, Nausea/Vomiting, 10/19/17) prochlorperazine (Verified Adverse Reaction, Severe, ANXIETY, 10/19/17) ANXIETY Family History Mother: but unsure of medical history Father: , heart disease Sister: CAD Two healthy children (son and daughter) History of cancers in the family but unsure of who or what kind Social History Lives with boyfriend and roommate Unemployed, disabled High school education EtOH: denies Tobacco: quit in 2003, smoked about 1/2 PPD x 14 years prior to quitting Illicit drugs: denies Health Maintenance Flu vaccine: 2016 Pneumonia vaccine: unsure TDAP: cannot recall last Eye exam: 2014 Mammogram: August 2011 Pap: cannot recall Specialists Podiatry - Dr. Gutierrez Paper Coater - Dr. Madera Oncologist - Dr. Umanzor Physical Exam Vital Signs Vital Signs Date Time Temp Pulse Resp B/P (MAP) Pulse Ox O2 Delivery O2 Flow Rate FiO2 10/21/17 20:34 108 19 122/67 (85) 10/21/17 19:49 98 Room Air 10/21/17 19:11 100.0 109 19 137/87 (104) 98 Room Air 10/21/17 18:27 98.6 110 16 126/86 (99) 100 Physical Exam GENERAL: Disheveled female lying in bed in no acute distress. SKIN: Left foot with callus on the sole of left foot at head of first metatarsal. Superficial skin tear with surrounding erythema including the first MTP joint. Granulation tissue present. No pus. 1+ pitting edema of foot also involving lower ankle. Right foot unremarkable with the fifth digit amputated. HEENT: Atraumatic, normocephalic with EOMI. PERRLA. Mucous membranes dry. Oropharynx was scarring from previous procedure for malignancy. No rhinorrhea. No LAD, JVD, or thyroid abnormality appreciated. CARDIOVASCULAR: Regular rate and rhythm with no MGR. RESPIRATORY: Clear to auscultation bilaterally with no CRW. No increased work of breathing. GASTROINTESTINAL: Soft, nontender, nondistended with positive bowel sounds. Masses appreciated. MUSCULOSKELETAL: No cyanosis. Edema as above on left lower extremity. Ambulation independently with wheeled walker per report. NEUROLOGICAL: Afocal. AAO 3, PPT 3. Speech- Fluent. No dysarthria or dysphasia. Good focus, attention, and comprehension. Cranial nerves- 2 through 12 intact. Motor/sensory/reflexes- intact Face- No facial droop. No tongue deviation. RUE- 5/5 strength in all musc groups, sensation intact. Reflexes 2+. LUE- 5/5 strength in all musc groups, sensation intact. Reflexes 2+. RLE- 5/5 strength in all musc groups, sensation intact. Reflexes 2+. LLE- 5/5 strength in all musc groups, sensation intact. Reflexes 2+. Babinski-negative Rapid alternating movements- No hemispace neglect. Laboratory Laboratory Tests Test 10/21/17 19:40 White Blood Count 10.6 Red Blood Count 3.13 Hemoglobin 8.9 Hematocrit 26.9 Mean Corpuscular Volume 85.8 Mean Corpuscular Hemoglobin 28.5 Mean Corpuscular Hemoglobin Concent 33.2 Red Cell Distribution Width 13.9 Platelet Count 265 Mean Platelet Volume 7.9 Neutrophils (%) (Auto) 83.3 Lymphocytes (%) (Auto) 8.9 Monocytes (%) (Auto) 7.4 Eosinophils (%) (Auto) 0.2 Basophils (%) (Auto) 0.2 Neutrophils # (Auto) 8.8 Lymphocytes # (Auto) 0.9 Monocytes # (Auto) 0.8 Eosinophils # (Auto) 0.0 Basophils # (Auto) 0.0 CBC Comment DIFF FINAL Differential Comment Blood Urea Nitrogen 13 Creatinine 0.59 Random Glucose 199 Total Protein 8.0 Albumin 2.6 Calcium Level 9.5 Magnesium Level 1.4 Alkaline Phosphatase 98 Aspartate Amino Transf (AST/SGOT) 8 Alanine Aminotransferase (ALT/SGPT) 9 Total Bilirubin 0.3 Sodium Level 134 Potassium Level 3.8 Chloride Level 95 Carbon Dioxide Level 28.4 Anion Gap 11 Estimat Glomerular Filtration Rate 107 Lactic Acid Level 0.8 Total Creatine Kinase 21 Troponin I LESS THAN 0.02 Date/Time Source Procedure Growth Status 10/21/17 19:45 Blood Peripheral Aerobic Blood Culture Pending Received 10/21/17 19:45 Blood Peripheral Anaerobic Blood Culture Pending Received Result Diagram: 10/21/17193910/21/171939 Caprini VTE Risk Assessment Caprini VTE Risk Assessment: Mod/High Risk (score >= 2) Caprini Risk Assessment Model Point Value = 1 Point Value = 2 Point Value = 3 Point Value = 5 Age 41-60 Minor surgery BMI > 25 kg/m2 Swollen legs Varicose veins or History of unexplained or recurrent spontaneous Oral contraceptives or hormone replacement Sepsis (< 1 month) Serious lung disease, including pneumonia (< 1 month) Abnormal pulmonary function Acute myocardial infarction Congestive heart failure (< 1 month) History of inflammatory bowel disease Medical patient at bed rest Age 61-74 Arthroscopic surgery Major open surgery (> 45 min) Laparoscopic surgery (> 45 min) Malignancy Confined to bed (> 72 hours) Immobilizing plaster cast Central venous access Age >= 75 History of VTE Family history of VTE Factor V Leiden Prothrombin [id number] Lupus anticoagulant Anticardiolipin antibodies Elevated serum homocysteine Heparin-induced thrombocytopenia Other congenital or acquired thrombophilia Stroke (< 1 month) Elective arthroplasty Hip, pelvis, or leg fracture Acute spinal cord injury (< 1 month) Prophylaxis Regimen Total Risk Factor Score Risk Level Prophylaxis Regimen 0-1 Low Early ambulation 2 Moderate Order ONE of the following: *Sequential Compression Device (SCD) *Heparin 5000 units SQ BID 3-4 Higher Order ONE of the following medications: *Heparin 5000 units SQ TID *Enoxaparin/Lovenox 40 mg SQ daily (WT < 150 kg, CrCl > 30 mL/min) *Enoxaparin/Lovenox 30 mg SQ daily (WT < 150 kg, CrCl > 10-29 mL/min) *Enoxaparin/Lovenox 30 mg SQ BID (WT < 150 kg, CrCl > 30 mL/min) AND/OR *Sequential Compression Device (SCD) 5 or more Highest Order ONE of the following medications: *Heparin 5000 units SQ TID (Preferred with Epidurals) *Enoxaparin/Lovenox 40 mg SQ daily (WT < 150 kg, CrCl > 30 mL/min) *Enoxaparin/Lovenox 30 mg SQ daily (WT < 150 kg, CrCl > 10-29 mL/min) *Enoxaparin/Lovenox 30 mg SQ BID (WT < 150 kg, CrCl > 30 mL/min) AND *Sequential Compression Device (SCD) Assessment and Plan Assessment and Plan Mrs. Arechiga is a 52 y/o F presenting to the ED after a fall at home. Code Status Full Discussed Condition With Mr. MerrillRICK Problem List: (1) Syncope ICD Codes: R55 - Syncope and collapse Status: Acute Plan: Patient with recent episode of syncope with reassuring exam Differential: Orthostatic hypotension versus dysautonomia versus mechanical fall versus TIA/CVA -CT head: No acute intracranial abnormalities. Mucosal thickening of the right maxillary sinus. -Chest x-ray: [id number] in superior vena cava. No focal consolidation. -Hip/pelvis x-ray: No acute findings. Mild osteoarthritis of the bilateral hips. -Orthostatic vital signs ordered -NS at 100ml/hr -PT consulted -Fall precautions (2) UTI (urinary tract infection) ICD Codes: N39.0 - Urinary tract infection, site not specified Status: Acute Plan: Likely just cystitis based on reassuring exam. Patient does not meet SIRS criteria (only tachycardia). - Given history of ESBL organisms, treat with Zosyn IV every 6 hours (sensitive to 10/18 E.coli ESBL) - Repeat UA with culture ordered - Follow up blood culture -Consult infectious disease (3) DM (diabetes mellitus), type 2, uncontrolled w/neurologic complication ICD Codes: E11.49 - Type 2 diabetes mellitus with other diabetic neurological complication; E11.65 - Type 2 diabetes mellitus with hyperglycemia Status: Chronic Plan: Patient with history of type 2 diabetes with polyneuropathy -Continue home gabapentin -Hold Levemir and Januvia -Sliding-scale insulin per protocol (4) Chronic foot ulcer ICD Codes: L97.509 - Chronic foot ulcer Status: Chronic Plan: Wound stable, no evidence of acute infection - Monitor clinically (5) Hepatitis C ICD Codes: B19.20 - Unspecified viral hepatitis C without hepatic coma Status: Chronic Plan: Patient with history of hepatitis C -Liver functions decreased, continue to monitor (6) Nutrition, metabolism, and development symptoms ICD Codes: R63.8 - Other symptoms and signs concerning food and fluid intake Status: Acute Plan: Fluids: NS at 100 mL per hour Electrolytes: Monitor and replete as needed Nutrition: Diet regular basic (7) No contraindication to deep vein thrombosis (DVT) prophylaxis ICD Codes: Z78.9 - Other specified health status Status: Acute Plan: -Heparin 5000 units -Harish Rowe MD R2 Oct 21, 2017 21:53
[2017-10-21 22:23] VITALS: BP 108/57; PULSE 98; O2SAT 98
[2017-10-21] MEDS ORDERED: ONDANSETRON HCL 4 MG/2 ML VIAL IVP PRN (22:30)
[2017-10-21] MEDS ORDERED: SODIUM CHLORIDE 0.9% FLUSH 10 ML FLUSH IV FLUSH PRN (22:30)
[2017-10-21] MEDS ORDERED: NALOXONE HCL 0.4 MG/ML AMP IV PUSH PRN (22:30)
[2017-10-21] MEDS ORDERED: SENNOSIDES 8.6 MG TAB PO PRN (22:30)
[2017-10-21] MEDS ORDERED: LACTULOSE SYRUP 20 GM/30 ML CUP PO PRN (22:30)
[2017-10-21] MEDS ORDERED: MAGNESIUM HYDROXIDE SUSP 30 ML CUP PO PRN (22:30)
[2017-10-21] MEDS ORDERED: BISACODYL 10 MG SUPP RECTAL PRN (22:30)
[2017-10-21] MEDS: SODIUM CHLOR 0.9% 1000 ML INJ 1,000 ML IV SCH (23:14)
[2017-10-21] MEDS: PIPERACIL-TAZO 3.375 GM PREMIX 50 ML IV SCH (23:54)
[2017-10-21] MEDS: HEPARIN SODIUM - SQ 10,000 UNITS/ML VIAL SQ SCH (23:55)
[2017-10-22] VITALS (8 sets, daily range): BP systolic 101–157; BP diastolic 54–80; PULSE 87–100; RESP 17–28; TEMP 97.6–101.9; O2SAT 94–98
[2017-10-22] MEDS ORDERED: DEXTROSE 50% IN WATER 50 ML VIAL(D50) IV PUSH PRN (03:00)
[2017-10-22] MEDS ORDERED: GLUCAGON 1 MG/ML VIAL OTHER PRN (03:00)
[2017-10-22] MEDS: PIPERACIL-TAZO 3.375 GM PREMIX 50 ML IV SCH ×2 (06:10→11:13)
[2017-10-22 07:10] LABS: BILIRUBIN, URINE NEG (NEG); BLOOD, URINE NEG (NEG); GLUCOSE,URINE 70 mg/dL (NEG); KETONE, URINE 10 mg/dL (NEG); NITRITE,URINE POS (NEG); SQUAMOUS EPITHELIAL CELL URINE 2 /hpf (0-5); URINE COLOR LIGHT-YELLOW (YELLW/STRAW); URINE LEUKOCYTE ESTERASE NEG (NEG)
[2017-10-22 07:42] LABS: AUTOMATED NEUTROPHIL # 6.7 TH/MM3 (1.8-7.7); BASOPHIL % 0.4 % (0.0-2.0); EOSINOPHIL % 0.4 % (0.0-4.0); HEMATOCRIT 24.8 % (35.0-46.0); HEMOGLOBIN 8.3 GM/DL (11.6-15.3); LYMPH % 10.3 % (9.0-44.0); LYMPHOCYTE # 0.9 TH/MM3 (1.0-4.8); MEAN CELL VOLUME 85.2 FL (80.0-100.0); MEAN CORPUSCULAR HEMOGLOBIN 28.4 PG (27.0-34.0); MEAN CORPUSCULAR HGB CONC 33.4 % (32.0-36.0); MEAN PLATELET VOLUME 7.3 FL (7.0-11.0); MONO % 8.7 % (0.0-8.0); MONOCYTE # 0.7 TH/MM3 (0-0.9); NEUT % 80.2 % (16.0-70.0); PLATELET COUNT 247 TH/MM3 (150-450); RED BLOOD COUNT 2.91 MIL/MM3 (4.00-5.30); WHITE BLOOD COUNT 8.4 TH/MM3 (4.0-11.0)
[2017-10-22 08:09] LABS: ALBUMIN 2.4 GM/DL (3.4-5.0); AST (GOT) 5 U/L (15-37); BICARBONATE 30.8 MEQ/L (21.0-32.0); BLOOD UREA NITROGEN 7 MG/DL (7-18); CALCIUM 9.5 MG/DL (8.5-10.1); CHLORIDE 100 MEQ/L (98-107); CREATININE 0.48 MG/DL (0.50-1.00); GLOMERULAR FILTRATION RATE 136 ML/MIN (>89); GLUCOSE,RANDOM 159 MG/DL (74-106); SODIUM (NA) 136 MEQ/L (136-145)
[2017-10-22 08:12] LABS: ALKALINE PHOSPHATASE 91 U/L (45-117); ALT (GPT) 11 U/L (10-53); TOTAL BILIRUBIN ADULT 0.4 MG/DL (0.2-1.0); TOTAL PROTEIN 7.6 GM/DL (6.4-8.2)
[2017-10-22] MEDS: INSULIN ASPART SUPPLEMENTAL SCALE SQ SCH ×4 (08:46→21:00)
[2017-10-22] MEDS: GABAPENTIN 400 MG CAP PO SCH ×3 (11:13→18:00)
[2017-10-22] MEDS: HEPARIN SODIUM - SQ 10,000 UNITS/ML VIAL SQ SCH ×2 (11:13→16:45)
[2017-10-22] MEDS: SODIUM CHLOR 0.9% 1000 ML INJ 1,000 ML IV SCH ×2 (11:14→22:33)
[2017-10-22] MEDS: DOCUSATE SODIUM 50 MG/SENNA 8.6 MG TAB PO SCH ×2 (11:14→21:00)
[2017-10-22] MEDS: SODIUM CHLORIDE 0.9% FLUSH 10 ML FLUSH IV FLUSH SCH ×2 (11:14→22:33)
--- NOTE | 2017-10-22 11:34 | HHI.FPPN ---
Subjective Remarks Patient seen and examined this morning. Temperature 98.9, pulse 97, respiratory rate 18, blood pressure 122/62, pulse ox 97 on room air. Patient has syncopal episode was today that his consistent with likely orthostatic hypotension, her orthostatic blood pressures were 148/73 for by sitting at 101/ 80 then standing at 110/72. Those blood pressure readings are consistent with orthostatic hypotension. She reported that the symptoms resolved with lying down but then she felt that with standing she felt faint, denied any feelings of the world spinning. When she reports that she passed out she denies biting her lip, cheek or tongue. Syncopal event was observed. She is aware that she has a bad urinary tract infection, however was unable to obtain her outpatient antibiotics due to lack of funds. (Richie Orourke MD, R3) Objective Vitals Vital Signs Date Time Temp Pulse Resp B/P (MAP) Pulse Ox O2 Delivery O2 Flow Rate FiO2 10/22/17 08:12 98.9 97 18 148/73 (98) 97 101/80 (87) 110/72 (85) 10/22/17 04:25 97.9 96 17 122/62 (82) 96 10/22/17 01:00 98.2 98 18 123/62 (82) 95 10/21/17 22:23 98 108/57 (74) 98 Room Air 10/21/17 21:52 99 10/21/17 20:34 108 19 122/67 (85) 10/21/17 19:49 98 Room Air 10/21/17 19:11 100.0 109 19 137/87 (104) 98 Room Air 10/21/17 18:27 98.6 110 16 126/86 (99) 100 I/O 10/21/17 10/21/17 10/21/17 10/22/17 10/22/17 10/22/17 07:00 15:00 23:00 07:00 15:00 23:00 Intake Total 1100 ml Balance 1100 ml Intake IV Total 1100 ml # Voids 1 (Richie Orourke MD, R3) Result Diagram: 10/22/1724 10/22/1724 Imaging Last Impressions Head CT 10/21/171913 Signed Impressions: Service Date/Time: Saturday, October 21, 2017 20:04 - CONCLUSION: 1. No acute intracranial abnormalities. Mucosal thickening right maxillary sinus. Mika Weber MD Chest X-Ray 10/21/17 1914 Signed Impressions: Service Date/Time: Saturday, October 21, 2017 20:15 - CONCLUSION: 1. [id number]-[id number] in superior vena cava. No focal consolidation. Mika Weber MD Hip and Pelvis X-Ray 10/21/17 0000 Signed Impressions: Service Date/Time: Saturday, October 21, 2017 20:21 - CONCLUSION: 1. No acute findings. Mild osteoarthritis at the bilateral hips. Mika Weber MD Objective Remarks GEN: Well-developed, well-nourished patient. No acute distress. CV: Regular rate and rhythm without obvious murmurs LUNGS: Clear to auscultation bilaterally. Normal respiratory effort. No wheezes , rales, rhonchi. GI: Soft, nontender, nondistended. No palpable masses. Bowel sounds WNL. EXT: No edema. NEURO/PSYCH: Afocal. Awake, alert, and oriented x3. Appropriate insight and judgment. Medications and IVs Current Medications Medications (Trade) Dose Ordered Sig/Mattie Route Start Time Stop Time Status Last Admin Sodium Chloride 1,000 ml @ 100 mls/hr Q10H IV 10/21/17 22:27 10/22/17 11:14 (NS Flush) 2 ml UNSCH PRN IV FLUSH 10/21/17 22:30 (NS Flush) 2 ml BID IV FLUSH 10/22/17 09:00 10/22/17 11:14 (Tylenol) 650 mg Q4H PRN PO 10/21/17 22:30 (Zofran Inj) 4 mg Q6H PRN IVP 10/21/17 22:30 (Heparin Inj) 5,000 units Q8H SQ 10/22/17 00:00 10/22/17 11:13 (Narcan Inj) 0.4 mg UNSCH PRN IV PUSH 10/21/17 22:30 (Tamiko-Colace) 1 tab BID PO 10/22/17 09:00 (Milk Of Magnesia Liq) 30 ml Q12H PRN PO 10/21/17 22:30 (Senokot) 17.2 mg Q12H PRN PO 10/21/17 22:30 (Dulcolax Supp) 10 mg DAILY PRN RECTAL 12/16/17 22:30 (Lactulose Liq) 30 ml DAILY PRN PO 10/21/17 22:30 Piperacillin Sod/ Tazobactam Sod 50 ml @ 100 mls/hr Q6H IV 10/22/17 00:00 10/22/17 11:13 (Lipitor) 40 mg HS PO 10/22/17 21:00 (Neurontin) 400 mg TID PO 10/22/17 09:00 10/22/17 11:13 (Proamatine) 5 mg TID PO 10/22/17 09:00 (D50w (Vial) Inj) 50 ml UNSCH PRN IV PUSH 10/22/17 03:00 (Glucagon Inj) 1 mg UNSCH PRN OTHER 10/22/17 03:00 (NovoLOG SUPPLEMENTAL SCALE) 1 ACHS SLIDING SCALE SQ 10/22/17 08:00 10/22/17 08:46 (Richie Orourke MD, R3) A/P Assessment and Plan Mrs. Arechiga is a 52 y/o F presenting to the ED after a fall at home. Discharge Planning Anticipate discharge next one to 2 days following IV antibiotics (Richie Orourke MD, R3) Attending Attestation THIS CASE WAS DISCUSSED WITH THE RESIDENT PHYSICIAN,DR OROURKE. I HAVE REVIEWED THE RECORD,PATIENT SEEN AND EXAMINED AND AGREE WITH THE ABOVE NOTE AND PLAN OF CARE WAS DISCUSSED. I HAVE AUTHORIZED THE ORDERS. (Hemant Thao MD) Problem List: (1) Syncope ICD Codes: R55 - Syncope and collapse Status: Acute Plan: Patient with recent episode of syncope with reassuring exam Differential: Orthostatic hypotension versus dysautonomia versus mechanical fall versus TIA/CVA -CT head: No acute intracranial abnormalities. Mucosal thickening of the right maxillary sinus. -Chest x-ray: [id number]-Hyad in superior vena cava. No focal consolidation. -Hip/pelvis x-ray: No acute findings. Mild osteoarthritis of the bilateral hips. -Orthostatic vital signs: Consistent with orthostatic hypotension -NS at 100ml/hr -PT consulted -Fall precautions (2) UTI (urinary tract infection) ICD Codes: N39.0 - Urinary tract infection, site not specified Status: Acute Plan: Likely just cystitis based on reassuring exam. Patient does not meet SIRS criteria (only tachycardia). - Given history of ESBL organisms, treat with Zosyn IV every 6 hours (sensitive to 10/18 E.coli ESBL) - Repeat UA with culture ordered - Follow up blood culture -Consult infectious disease (3) DM (diabetes mellitus), type 2, uncontrolled w/neurologic complication ICD Codes: E11.49 - Type 2 diabetes mellitus with other diabetic neurological complication; E11.65 - Type 2 diabetes mellitus with hyperglycemia Status: Chronic Plan: Patient with history of type 2 diabetes with polyneuropathy -Continue home gabapentin -Hold Januvia -Levemir 5 units twice a day we'll adjust per bedside glucose readings -Sliding-scale insulin per protocol (4) Chronic foot ulcer ICD Codes: L97.509 - Chronic foot ulcer Status: Chronic Plan: Wound stable, no evidence of acute infection - Monitor clinically (5) Hepatitis C ICD Codes: B19.20 - Unspecified viral hepatitis C without hepatic coma Status: Chronic Plan: Patient with history of hepatitis C -Liver functions decreased, continue to monitor (6) Nutrition, metabolism, and development symptoms ICD Codes: R63.8 - Other symptoms and signs concerning food and fluid intake Status: Acute Plan: Fluids: NS at 100 mL per hour Electrolytes: Monitor and replete as needed Nutrition: Diet regular basic (7) No contraindication to deep vein thrombosis (DVT) prophylaxis ICD Codes: Z78.9 - Other specified health status Status: Acute Plan: -Heparin 5000 units -SCDs (Richie Orourke MD, R3) Problem Qualifiers (1) Chronic foot ulcer: Qualified Codes: L97.522 - Non-pressure chronic ulcer of other part of left foot with fat layer exposed (2) Hepatitis C: Richie Orourke MD, R3 Oct 22, 2017 11:34 Hemant Thao MD Oct 24, 2017 21:16
[2017-10-22] MEDS: MIDODRINE 5 MG TAB PO SCH ×3 (13:03→18:00)
[2017-10-22] MEDS ORDERED: ASP: Documented ESBL, MDR A baumannii or P. aeruginosa PRN (13:45)
[2017-10-22] MEDS ORDERED: MISCELLANEOUS PHARMACY INFORMATION XX PRN ×2 (13:45)
--- NOTE | 2017-10-22 14:17 | MB ---
cc: SANDIE WILKS MD DATE OF CONSULTATION: 10/22/2017. REASON FOR CONSULTATION: A 52-year-old with chronic urinary tract infection found to have ESBL E. coli on 10/18. REQUESTING PHYSICIAN: Dr. Yuen. HISTORY OF PRESENT ILLNESS: This is a 52-year-old white female who was brought to the emergency department after falling at home. The patient was noted to have had a urinary tract infection with positive culture on 10/18 which grew out ESBL E. coli. The patient notes that she has foul-smelling urine. This consultation is requested because of the urine infection. The patient currently has no significant complaints; however, she states that she does get some low back pain. Her white count is normal and she has no fever today. The temperature yesterday max was 100 degrees. Repeat urine culture today reveals positive nitrite and 4 white cells. The patient is awake and alert and she is in no acute distress. She notes that she gets around with a wheelchair whenever she has to travel long distances, but in the house, she is able to ambulate. Blood culture from 10/21 has no growth in one day. PAST MEDICAL HISTORY: 1. Recurrent urinary tract infection. The patient has had several urinary tract infections due to E. coli ESBL-positive. 2. Hyperlipidemia. 3. Diabetes mellitus. 4. 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 The patient is status post chemotherapy and radiation. 5. Port placement. 6. Pacemaker. 7. Peripheral vascular disease. 8. History of pancreatitis. 9. History of fifth toe amputation for osteomyelitis. 10. Orthostatic hypotension. 11. Hepatitis C. 12. Asthma. 13. Cholecystectomy. 14. Appendectomy. 15. Tonsillectomy. ALLERGIES: 1. ACETAMINOPHEN. 2. METFORMIN. 3. MORPHINE. 4. OXYCODONE. 5. PROCHLORPERAZINE. 6. TRAMADOL. MEDICATIONS: 1. Piperacillin / tazobactam. 2. Levemir. 3. Proamatine. 4. Neurontin. 5. Tamiko-Colace. 6. [place] 5 PRN. REVIEW OF SYSTEMS: Pertinents mentioned above in the history of present illness. PHYSICAL EXAMINATION: GENERAL: This is a well-developed female who is in no acute distress. She is awake and alert and oriented. VITAL SIGNS: Temperature 98.3, blood pressure 156/74, respirations 22, heart rate 99. HEAD, EYES, EARS, NOSE, THROAT: The head is atraumatic. Extraocular movements grossly intact. Pupils are reactive to light. No icterus. Oropharynx with moist mucosa without lesions. NECK: The neck is supple without adenopathy. LUNGS: Clear with decreased breath sounds. HEART: Regular S1 and S2. No murmurs. ABDOMEN: Bowel sounds present, soft, nontender. RECTAL: Not performed. EXTREMITIES: No clubbing or cyanosis or edema. SKIN: No rash. NEUROLOGIC: Nonfocal. LABS: WBCs 8.4, platelet count 247,000, hemoglobin 8.3, 80% neutrophils. Creatinine 0.48, BUN 7, estimated GFR 136. IMPRESSION: 1. Recurrent urinary tract infection. 2. Positive urine culture with E. coli ESBL. RECOMMENDATIONS: 1. Discontinue the Zosyn. 2. Begin ertapenem for the ESBL E. Coli. 3. Obtain a urine culture from the specimen that was sent today since the urine culture was not performed because of findings on the urinalysis. The treatment for the ESBL E. coli should be continued if there is still that organism in the urine. If the urine does not show that organism, the antibiotics may need to be adjusted or discontinued depending on the urine culture. If the urine culture is still positive for the ESBL E. coli, I would give her another 72 hours of antibiotics and repeat the urine culture to check for clearance. 4. It is not clear to me why the patient keeps getting repeated urinary tract infections. She may benefit from urology evaluation as an outpatient to investigate that problem. Thank you this consultation. Sandie Wilks MD FD/TC /1:37 PM /1:58 PM
[2017-10-22] MEDS: ERTAPENEM INJ 1,000 MG in SODIUM CHLORIDE 0.9% INJ 100 ML IV SCH (16:44)
[2017-10-22] MEDS: ACETAMINOPHEN 325 MG TAB PO PRN (18:27)
[2017-10-22] MEDS: INSULIN DETEMIR 100 UNITS/ML VIAL SQ SCH (21:00)
[2017-10-22] MEDS: ATORVASTATIN 40 MG TAB PO SCH (22:33)
[2017-10-23] MEDS: HEPARIN SODIUM - SQ 10,000 UNITS/ML VIAL SQ SCH ×3 (01:21→17:43)
[2017-10-23 03:45] VITALS: BP 111/59; PULSE 72; RESP 22; TEMP 98.3; O2SAT 93
[2017-10-23] MEDS: SODIUM CHLOR 0.9% 1000 ML INJ 1,000 ML IV SCH (08:15)
[2017-10-23] MEDS: GABAPENTIN 400 MG CAP PO SCH ×3 (08:16→17:43)
[2017-10-23] MEDS: DOCUSATE SODIUM 50 MG/SENNA 8.6 MG TAB PO SCH (08:16)
[2017-10-23] MEDS: MIDODRINE 5 MG TAB PO SCH ×3 (08:16→17:43)
[2017-10-23] MEDS: SODIUM CHLORIDE 0.9% FLUSH 10 ML FLUSH IV FLUSH SCH ×2 (08:17→21:00)
[2017-10-23] MEDS: INSULIN DETEMIR 100 UNITS/ML VIAL SQ SCH (08:17)
[2017-10-23] MEDS: INSULIN ASPART SUPPLEMENTAL SCALE SQ SCH ×4 (08:19→21:00)
[2017-10-23 09:27] VITALS: BP 157/89; PULSE 98; RESP 18; TEMP 98.6; O2SAT 100
--- NOTE | 2017-10-23 12:07 | HHI.FPPN ---
Subjective Remarks Patient is sitting up in bed and in no distress. Her last fever was last night at 20:31. Her WBC are normal. She reports no chills or night sweats overnight. She continues to be treated for ESBL e coli UTI with Ertapenem. She has no chest pain, shortness of breath, abdominal pain, nausea, or vomiting. She has a foot ulcer of her left great toe covered by eschar. She reports no dysuria today. (Lai Ellis MD R3) Objective Vitals Vital Signs Date Time Temp Pulse Resp B/P (MAP) Pulse Ox O2 Delivery O2 Flow Rate FiO2 10/23/17 09:27 98.6 98 18 157/89 (111) 100 10/22/17 23:29 98.6 87 24 113/57 (75) 96 10/22/17 22:50 21 10/22/17 20:31 100.1 93 24 107/54 (71) 95 10/22/17 18:20 101.9 100 28 119/58 (78) 98 10/22/17 16:55 97.6 97 18 157/76 (103) 94 I/O 10/22/17 10/22/17 10/22/17 10/23/17 10/23/17 10/23/17 07:00 15:00 23:00 07:00 15:00 23:00 Intake Total 1000 ml Balance 1000 ml Intake IV Total 1000 ml # Voids 2 5 1 # Bowel Movements 1 2 (Lai Ellis MD R3) Result Diagram: 10/22/17 0724 10/22/17 0724 Imaging Last [address] 10/21/171913 Signed Impressions: Service Date/Time: Saturday, October 21, 2017 20:04 - CONCLUSION: 1. No acute intracranial abnormalities. Mucosal thickening right maxillary sinus. Mika Weber MD Chest X-Ray 10/21/171913 Signed Impressions: Service Date/Time: Saturday, October 21, 2017 20:15 - CONCLUSION: 1. Xbipel-u-Akma in superior vena cava. No focal consolidation. Mika Weber MD Hip and Pelvis X-Ray 10/21/17 0000 Signed Impressions: Service Date/Time: Saturday, October 21, 2017 20:21 - CONCLUSION: 1. No acute findings. Mild osteoarthritis at the bilateral hips. Mika Weber MD Objective Remarks General: Sitting up in bed, in no distress. Skin: has ulcer of left great toe covered by eschar, non-stageable HEENT: Normocephalic, no nasal discharge CV: RRR, no murmurs, rubs, or gallops, normal pulses and capillary refill. Dorsalis pedis and PT pulses intact. Lungs: CTAB Abdomen: Soft, nontender, nondistended, normal bowel sounds Ext: No edema : No CVA tenderness (Lai Ellis MD R3) A/P Assessment and Plan 52 y/o F presented to the ED after a fall at home with syncope, found to have likely UTI. ESBL e coli UTI in recent history. Discharge Planning Pending culture results and appropriate antibiotic selection, along with resolution of presenting symptoms. Will need home health and PT at discharge. (Lai Ellis MD R3) Attending Attestation Medical rounds performed with Dr Ellis,Case reviewed in detail, patient seen and examined, Agree with above documentation, See Orders (Hemant Thao MD) Problem List: (1) UTI (urinary tract infection) ICD Codes: N39.0 - Urinary tract infection, site not specified Status: Acute Plan: History of ESBL E coli UTI, now with positive nitrites and fevers. - Infectious disease on board. - Ertapenem started to cover ESBL e. coli - Urine culture pending. - Follow blood cultures. - Tailor antibiotics according to culture/sensitivity results. - May benefit from urology evaluation as an outpatient due to multiple UTI's. (2) Syncope ICD Codes: R55 - Syncope and collapse Status: Acute Plan: Patient with recent episode of syncope with reassuring exam. Orthostatic hypotension versus dysautonomia versus mechanical fall versus TIA/CVA. CT head: No acute intracranial abnormalities. Chest x-ray: No focal consolidation. Hip/ pelvis x-ray: No acute findings. Mild osteoarthritis of the bilateral hips. Orthostatic vital signs: Consistent with orthostatic hypotension - Physical therapy on board. - Fall precautions ordered. - Monitor hydration status. - At discharge, will need home health and physical therapy. (3) Chronic foot ulcer ICD Codes: L97.509 - Chronic foot ulcer Status: Chronic Plan: Left great toe ulcer covered by eschar, not stageable due to the eschar formation. History of polyneuropathy. Has some surrounding cellulitis. No drainage. - Consult podiatry - Consult wound care nurse - Off set pressure - Educate on diabetic control - Culture wound - X-ray foot - Arterial segmental dopplers - May need debridement - Follow up in wound care center after discharge. (4) DM (diabetes mellitus), type 2, uncontrolled w/neurologic complication ICD Codes: E11.49 - Type 2 diabetes mellitus with other diabetic neurological complication; E11.65 - Type 2 diabetes mellitus with hyperglycemia Status: Chronic Plan: Patient with history of type 2 diabetes with polyneuropathy, euglycemic. -Continue home gabapentin -Hold Januvia -Levemir 5 units twice a day -Sliding-scale insulin per protocol (5) Hepatitis C ICD Codes: B19.20 - Unspecified viral hepatitis C without hepatic coma Status: Chronic Plan: Patient with history of hepatitis C, no transaminitis. (6) Nutrition, metabolism, and development symptoms ICD Codes: R63.8 - Other symptoms and signs concerning food and fluid intake Status: Acute Plan: Fluids: PO Electrolytes: Monitor and replace as needed Nutrition: Diabetic diet (7) No contraindication to deep vein thrombosis (DVT) prophylaxis ICD Codes: Z78.9 - Other specified health status Status: Acute Plan: -Heparin 5000 units -SCDs (Lai Ellis MD R3) Problem Qualifiers (1) Chronic foot ulcer: Qualified Codes: L97.522 - Non-pressure chronic ulcer of other part of left foot with fat layer exposed (2) Hepatitis C: Lai Ellis MD R3 Oct 23, 2017 12:07 Hemant Thao MD Oct 24, 2017 21:24
--- NOTE | 2017-10-23 12:34 | PD.WCN.NOT ---
Wound Consult Description: Consult for WOUND MANAGEMENT of left great toe per Caleb, MDR3 Recommendation: Follow podiatry orders for dressing changes. Additional Information: Patient not seen on F pod for eschar to left great toe. Dr Gutierrez has seen patient and placed orders for dressing changes every other day using dry gauze. Please refer to podiatry. Janel Ding [facility]is[facility] Oct 23, 2017 12:34
--- NOTE | 2017-10-23 12:41 | PD.WOU.CON ---
Patient Intake Chief Complaint Eschar and ulceration of left first MPJ Consult Requested by Dr. Ellis Reason for Consult Evaluation treatment of possible ulceration of the left foot Primary Care Physician No Primary Care Physician History of Present Illness Patient is a 52-year-old female who was admitted for a syncope episode with falls. During the course of her admission it was noted that she had an eschar and ulceration of the left first MPJ. Patient was seen by myself in April of this year in the wound center and did not return. She was growing MRSA from her wound when she was seen in the wound center. Prior to that from the same wound on the left foot she was growing MRSA, Pseudomonas, Enterobacter and Acineobacter. Patient has a history of uncontrolled diabetes with peripheral neuropathy. Coded Allergies: tramadol (Verified Allergy, Intermediate, Rash, 10/19/17) MRI PRECAUTION (Verified Adverse Reaction, Severe, PACEMAKER IS NOT A BIOTRONIK OR MEDTRONIC 06/15/16 KMD, 10/19/17) PACEMAKER IS NOT A BIOTRONIK OR MEDTRONIC CONDITIONAL PACEMAKER. CALLED BOTH COMPANIES TO CONFIRM. acetaminophen (Verified Adverse Reaction, Severe, Nausea/Vomiting, ) metformin (Verified Adverse Reaction, Severe, DIARRHEA, 10/19/17) morphine (Verified Adverse Reaction, Severe, Dizziness, 10/19/17) oxycodone (Verified Adverse Reaction, Severe, Nausea/Vomiting, 10/19/17) prochlorperazine (Verified Adverse Reaction, Severe, ANXIETY, 10/19/17) ANXIETY Preferred Language to Discuss: Grenadian Barriers to Learning: None Teaching Method: Discussion Vital Signs Date Time Temp Pulse Resp B/P (MAP) Pulse Ox O2 Delivery O2 Flow Rate FiO2 10/23/17 09:27 98.6 98 18 157/89 (111) 100 10/22/17 23:29 98.6 87 24 113/57 (75) 96 10/22/17 22:50 21 10/22/17 20:31 100.1 93 24 107/54 (71) 95 10/22/17 18:20 101.9 100 28 119/58 (78) 98 10/22/17 16:55 97.6 97 18 157/76 (103) 94 Pain scale used: 0-10 numeric scale Pain score: 0 Medications Current Medications Sodium Chloride (NS Flush) 2 ml UNSCH PRN IVF FLUSH AFTER USING IV ACCESS; Start 10/21/17 at 19:15; Stop 10/21/17 at 23:22; Status DC Sodium Chloride 1,000 ml @ 1,000 mls/hr Q1H ONCE IV Last administered on 10/21 19:48; Start 10/21/17 at 19:14; Stop 10/21/17 at 20:15; Status DC Nitrofurantoin Macrocrystals (Macrobid) 100 mg ONCE ONCE PO ; Start 10/21/17 at 19:15; Stop 10/21/17 at 19:24; Status DC Ampicillin Sodium/ Sulbactam Sodium 3 gm/Sodium Chloride 100 ml @ 200 mls/hr ONCE ONCE IV Last administered on 10/21/17 20:39; Start 10/21/17 at 19:30; Stop 10/21/17 at 19:59; Status DC Sodium Chloride 1,000 ml @ 100 mls/hr Q10H IV Last administered on 10/23/17 08:15; Start 10/21/17 at 22:27; Stop 10/23/17 at 12:04; Status DC Sodium Chloride (NS Flush) 2 ml UNSCH PRN IV FLUSH FLUSH AFTER USING IV ACCESS ; Start 10/21/17 at 22:30 Sodium Chloride (NS Flush) 2 ml BID IV FLUSH Last administered on 10/23/17 08 :17; Start 10/22/17 at 09:00 Acetaminophen (Tylenol) 650 mg Q4H PRN PO TEMP > 100.4 Last administered on 18:27; Start 10/21/17 at 22:30 Ondansetron HCl (Zofran Inj) 4 mg Q6H PRN IVP NAUSEA OR VOMITING; Start at 22:30 Heparin Sodium (Porcine) (Heparin Inj) 5,000 units Q8H SQ Last administered on 10/23/17 08:16; Start 10/22/17 at 00:00 Naloxone HCl (Narcan Inj) 0.4 mg UNSCH PRN IV PUSH SEE LABEL COMMENTS; Start 10/21/17 at 22:30 Senna/Docusate Sodium (Tamiko-Colace) 1 tab BID PO ; Start 10/22/17 at 09:00 Magnesium Hydroxide (Milk Of Magnesia Liq) 30 ml Q12H PRN PO Mild constipation ; Start 10/21/17 at 22:30 Sennosides (Senokot) 17.2 mg Q12H PRN PO Moderate constipation; Start at 22:30 Bisacodyl (Dulcolax Supp) 10 mg DAILY PRN RECTAL SEVERE CONSITIPATION; Start 10/21/17 at 22:30 Lactulose (Lactulose Liq) 30 ml DAILY PRN PO SEVERE CONSITIPATION; Start 10/21 at 22:30 Piperacillin Sod/ Tazobactam Sod 50 ml @ 100 mls/hr Q6H IV Last administered on 10/22/17 11:13; Start 10/22/17 at 00:00; Stop 10/22/17 at 13:34; Status DC Atorvastatin Calcium (Lipitor) 40 mg HS PO ; Start 10/22/17 at 21:00 Gabapentin (Neurontin) 400 mg TID PO Last administered on 10/23/17 08:16; Start 10/22/17 at 09:00 Midodrine (Proamatine) 5 mg TID PO Last administered on 10/23/17 08:16; Start 10/22/17 at 09:00 Dextrose (D50w (Vial) Inj) 50 ml UNSCH PRN IV PUSH HYPOGLYCEMIA-SEE COMMENTS; Start 10/22/17 at 03:00 Glucagon (Glucagon Inj) 1 mg UNSCH PRN OTHER HYPOGLYCEMIA-SEE COMMENTS; Start 10/22/17 at 03:00 Insulin Aspart (NovoLOG SUPPLEMENTAL SCALE) 1 ACHS SLIDING SCALE SQ Last administered on 10/22/17 13:16; Start 10/22/17 at 08:00 Insulin Detemir (Levemir Inj) 5 units Q12HR SQ Last administered on 10/23/17 08:17; Start 10/22/17 at 21:00 Miscellaneous Medication (ASP Crit: Doc ESBL, MDR A baumannii or P aer) 1 UNSCH X1 PRN .XX PHARMACY DOCUMENTATION; Start 10/22/17 at 13:45; Stop 10/23/17 at 13:44 Miscellaneous Medication ([facility] Information) 1 UNSCH X1 PRN XX PHARMACY DOCUMENTATION; Start 10/22/17 at 13:45; Stop 10/23/17 at 13:44 Ertapenem 1000 mg/ Sodium Chloride 100 ml @ 200 mls/hr Q24H IV Last administered on 10/22/17t 16:44; Start 10/22/17 at 15:00 Miscellaneous Medication ([facility] Information) 1 UNSCH X1 PRN XX PHARMACY DOCUMENTATION; Start 10/22/17 at 13:45; Stop 10/23/17 at 13:44 Past, Family & Social History Past Medical History HEENT: REPORTS HX OF: Other HEENT history Endocrine: REPORTS HX OF: Diabetes mellitus Respiratory: REPORTS HX OF: Asthma Cardiovascular: REPORTS HX OF: Hypertension, Peripheral vascular dz Gastrointestinal: REPORTS HX OF: Pancreatitis, Other GI history Genitourinary: REPORTS HX OF: Herpes genitalis, Past UTI Musculoskeletal: REPORTS HX OF: Other musculoskeletal hx (osteomyelitis of the fifth toe right foot) Cancer/Hematology: REPORTS HX OF: Oral cancer Infectious Disease: REPORTS HX OF: Hepatitis (Hep C), MRSA, Other inf disease history Neurologic: REPORTS HX OF: Peripheral neuropathy Disabilities: REPORTS HX OF: Vision deficit Past Surgical History HEENT: REPORTS HX OF: Dental surgery Cardiovascular: REPORTS HX OF: Coronary stent (Left leg), Pacemaker, Other cardiac surgery (Rigth chest port) Gastrointestinal: REPORTS HX OF: Appendectomy, DENIES HX OF: Colectomy, total Gynecologic: DENIES HX OF: Hysterectomy Musculoskeletal: REPORTS HX OF: Other musculoskeletal srg (fifth ray amputation right foot) Breast: REPORTS HX OF: Mastectomy, bilateral, Mastectomy, left, Mastectomy, right Family Medical History Hypertension G8 FATHER Substance Use Substance Use: Denies use Review of Systems Constitutional: COMPLAINS OF: Fever, Fatigue, DENIES: Good general health Eyes: COMPLAINS OF: Poor Vision/Glasses/Conta Cardiovascular: COMPLAINS OF: Hx hypertension Genitourinary: COMPLAINS OF: Freq or burning urination Musculoskeletal: COMPLAINS OF: Deformaties Integumentary: COMPLAINS OF: Slow to heal after cuts Neurological: COMPLAINS OF: Numbness/tingling, Changes in sensation, Difficulty with balance Hematologic/Lymphatic: COMPLAINS OF: Blood borne disease Wound Assessment Vascular Assessment R Dorsails Pedis: Doppler L Dorsails Pedis: Doppler R Posterior Tibial: Doppler L Posterior Tibial: Doppler Temperature of Left Extremity: Cool Color of Left Extremity: WNL Temperature of Right Extremity: Cool Color of Right Extremity: WNL Sensation of Right Extremity: Diminished Wound Information - Wound One Wound Location: Right hallux- plantar Wound Type: Diabetic Ulcer Classification: FT- full thickness Wound Length: healed Wound Two Wound Location: left first MPJ Wound Type: Diabetic Ulcer Classification: FT- full thickness Exudate: Moderate Exudate Type: Purulent Fibrin Amount: None Granulation Tissue Color: None Granulation Tissue Texture: Spongy Exposed: No exposed bone, muscle, tendon Eschar: Yes Odor: Yes Periwound Appearance: FINDINGS: Induration, Ecchymotic Dressings: Sterile 4x4 2S Lab and Radiology Results Laboratory Laboratory Tests Test 10/21/17 19:40 10/22/17 07:24 White Blood Count 10.6 TH/MM3 8.4 TH/MM3 Red Blood Count 3.13 MIL/MM3 2.91 MIL/MM3 Hemoglobin 8.9 GM/DL 8.3 GM/DL Hematocrit 26.9 % 24.8 % Mean Corpuscular Volume 85.8 FL 85.2 FL Mean Corpuscular Hemoglobin 28.5 PG 28.4 PG Mean Corpuscular Hemoglobin Concent 33.2 % 33.4 % Red Cell Distribution Width 13.9 % 14.0 % Platelet Count 265 TH/MM3 247 TH/MM3 Mean Platelet Volume 7.9 FL 7.3 FL Neutrophils (%) (Auto) 83.3 % 80.2 % Lymphocytes (%) (Auto) 8.9 % 10.3 % Monocytes (%) (Auto) 7.4 % 8.7 % Eosinophils (%) (Auto) 0.2 % 0.4 % Basophils (%) (Auto) 0.2 % 0.4 % Neutrophils # (Auto) 8.8 TH/MM3 6.7 TH/MM3 Lymphocytes # (Auto) 0.9 TH/MM3 0.9 TH/MM3 Monocytes # (Auto) 0.8 TH/MM3 0.7 TH/MM3 Eosinophils # (Auto) 0.0 TH/MM3 0.0 TH/MM3 Basophils # (Auto) 0.0 TH/MM3 0.0 TH/MM3 CBC Comment DIFF FINAL DIFF FINAL Differential Comment Laboratory Tests Test 10/21/17 19:40 10/22/17 07:24 Blood Urea Nitrogen 13 MG/DL 7 MG/DL Creatinine 0.59 MG/DL 0.48 MG/DL Random Glucose 199 MG/DL 159 MG/DL Total Protein 8.0 GM/DL 7.6 GM/DL Albumin 2.6 GM/DL 2.4 GM/DL Calcium Level 9.5 MG/DL 9.5 MG/DL Magnesium Level 1.4 MG/DL Alkaline Phosphatase 98 U/L 91 U/L Aspartate Amino Transf (AST/SGOT) 8 U/L 5 U/L Alanine Aminotransferase (ALT/SGPT) 9 U/L 11 U/L Total Bilirubin 0.3 MG/DL 0.4 MG/DL Sodium Level 134 MEQ/L 136 MEQ/L Potassium Level 3.8 MEQ/L 3.6 MEQ/L Chloride Level 95 MEQ/L 100 MEQ/L Carbon Dioxide Level 28.4 MEQ/L 30.8 MEQ/L Anion Gap 11 MEQ/L 5 MEQ/L Estimat Glomerular Filtration Rate 107 ML/MIN 136 ML/MIN Lactic Acid Level 0.8 mmol/L Total Creatine Kinase 21 U/L Troponin I LESS THAN 0.02 NG/ML Microbiology Date/Time Source Procedure Growth Status 10/21/17 19:45 Blood Peripheral Aerobic Blood Culture - Preliminary NO GROWTH IN 2 DAYS Resulted 10/21/17 19:45 Blood Peripheral Anaerobic Blood Culture - Preliminary NO GROWTH IN 2 DAYS Resulted 10/21/17 19:40 Blood Peripheral Aerobic Blood Culture - Preliminary NO GROWTH IN 2 DAYS Resulted 10/21/17 19:40 Blood Peripheral Anaerobic Blood Culture - Preliminary NO GROWTH IN 2 DAYS Resulted 10/22/17 06:10 Urine Other Urine Culture Pending Received Radiology Last Impressions Head CT 10/21/171913 Signed Impressions: Service Date/Time: Saturday, October 21, 2017 20:04 - CONCLUSION: 1. No acute intracranial abnormalities. Mucosal thickening right maxillary sinus. Mika Weber MD Chest X-Ray 10/21/171913 Signed Impressions: Service Date/Time: Saturday, October 21, 2017 20:15 - CONCLUSION: 1. Pidihw-t-Kuwb in superior vena cava. No focal consolidation. Mika Weber MD Hip and Pelvis X-Ray 10/21/17 0000 Signed Impressions: Service Date/Time: Saturday, October 21, 2017 20:21 - CONCLUSION: 1. No acute findings. Mild osteoarthritis at the bilateral hips. Mika Weber MD Assessment/Plan Problem List: (1) Cellulitis of great toe Status: Acute (2) Diabetic foot ulcer Status: Acute (3) DM (diabetes mellitus) Status: Chronic (4) Chronic foot ulcer Status: Chronic Additional Plans & Procedures PLAN: Nurse to obtain swab culture drainage from left first MPJ. Will order radiographs and arterial segmental Dopplers. May need OR bedside debridement. Await x-ray report. Patient encouraged to follow up with me in the wound center after discharge. Will follow during the course of this admission. 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
[2017-10-23 13:17] VITALS: BP 160/75; PULSE 94; RESP 18; TEMP 98.4; O2SAT 98
--- NOTE | 2017-10-23 13:21 | RADRPT ---
EXAM DATE/TIME: 10/23/2017 12:48 [facility] COMPARISON: FOOT LEFT COMPLETE ([id number]), October 18, 2017, 14:32. INDICATIONS : Left foot pain and swelling. Possible osteomyelitis of first digit of left foot. MEDICAL HISTORY : Cardiovascular disease. Hypertension. Cerebrovascular disease.throat SURGICAL HISTORY : Appendectomy. Cholecystectomy. Radiation and chemo. ENCOUNTER: Initial ACUITY: 2 weeks PAIN SCORE: 3/10 LOCATION: Left foot. FINDINGS: No prominent soft tissue abnormality involving the proximal plantar aspect of the toe in. There is morrissey btle erosive change involving the plantar aspect of the proximal phalanx with slight periosteal react ion. Osseous structures are otherwise intact. Joint spaces are maintained. CONCLUSION: 1. Subtle erosive change and periosteal reaction involving the proximal first phalanx concerning for osteomyelitis. Yakov Pickett MD on October 23, 2017 at 13:16 Board Certified Radiologist. This report was verified electronically.
[2017-10-23] MEDS: ERTAPENEM INJ 1,000 MG in SODIUM CHLORIDE 0.9% INJ 100 ML IV SCH (15:19)
[2017-10-23 16:00] LABS: HEMATOCRIT 24.4 % (35.0-46.0); HEMOGLOBIN 8.1 GM/DL (11.6-15.3); MEAN CELL VOLUME 85.7 FL (80.0-100.0); MEAN CORPUSCULAR HEMOGLOBIN 28.5 PG (27.0-34.0); MEAN CORPUSCULAR HGB CONC 33.3 % (32.0-36.0); MEAN PLATELET VOLUME 7.6 FL (7.0-11.0); PLATELET COUNT 301 TH/MM3 (150-450); RED BLOOD COUNT 2.84 MIL/MM3 (4.00-5.30); RED CELL DISTRIBUTION WIDTH 14.2 % (11.6-17.2); WHITE BLOOD COUNT 8.7 TH/MM3 (4.0-11.0)
[2017-10-23 16:10] LABS: BICARBONATE 31.5 MEQ/L (21.0-32.0); CALCIUM 9.5 MG/DL (8.5-10.1); CREATININE 0.49 MG/DL (0.50-1.00)
--- NOTE | 2017-10-23 17:01 | RADRPT ---
EXAM DATE/TIME: 10/23/2017 00:00 [facility] COMPARISON: ARTERIAL SEGMENTAL DOPPLER COMP W/TBI, March 09, 2017, 0:00. INDICATIONS : Left foot ulcer, Diabetes mellitus, Syncope TECHNIQUE: Five-station segmental examination of the lower extremities was performed. Pulsed-cuff waveform tracings and pressures were recorded. Ankle-brachial indices and toe-brachial indices were calculated. PRESSURES (mmHg): Brachial (arm): Right iv site Left 111 Lower Thigh: Right >220 Left >220 Calf: Right >220 Left >220 Ankle: Right 97 Left 86 Toe: Right 63 Left 20 ALBERTO: Right 0.87 Left 0.77 TBI: Right 0.57 Left 0.18 PULSED CUFF WAVEFORMS: Jeremi amplitude blunting of the toe waveforms bilaterally. CONCLUSION: 1. Slightly diminished ALBERTO on the right and mild diminished ALBERTO on the left. Findings are characteris tic of mild to moderate PAD bilaterally. 2. Mildly diminished ALBERTO on the right with markedly diminished ALBERTO on the left. Findings are characte ristic of small vessel disease Alireza Dugan MD on October 23, 2017 at 16:57 Board Certified Radiologist. This report was verified electronically.
[2017-10-23 17:47] VITALS: BP 135/63; PULSE 98; RESP 16; TEMP 98.3; O2SAT 96
[2017-10-23 21:37] VITALS: O2SAT 96
[2017-10-24] MEDS: ATORVASTATIN 40 MG TAB PO SCH ×2 (00:02→21:00)
[2017-10-24] MEDS: DOCUSATE SODIUM 50 MG/SENNA 8.6 MG TAB PO SCH ×3 (00:02→21:00)
[2017-10-24] MEDS: HEPARIN SODIUM - SQ 10,000 UNITS/ML VIAL SQ SCH ×3 (00:07→18:35)
[2017-10-24] MEDS: INSULIN DETEMIR 100 UNITS/ML VIAL SQ SCH ×3 (00:07→21:00)
[2017-10-24 00:31] VITALS: BP 116/61; PULSE 92; RESP 16; TEMP 100; O2SAT 95
[2017-10-24 04:12] VITALS: BP 110/50; PULSE 90; RESP 16; TEMP 98.1; O2SAT 98
[2017-10-24 08:09] VITALS: BP 141/71; PULSE 90; RESP 16; TEMP 98.4; O2SAT 96
[2017-10-24] MEDS: INSULIN ASPART SUPPLEMENTAL SCALE SQ SCH ×4 (08:12→21:00)
[2017-10-24] MEDS: GABAPENTIN 400 MG CAP PO SCH ×3 (09:41→18:35)
[2017-10-24] MEDS: MIDODRINE 5 MG TAB PO SCH ×3 (09:41→18:35)
[2017-10-24] MEDS: SODIUM CHLORIDE 0.9% FLUSH 10 ML FLUSH IV FLUSH SCH ×2 (09:42→21:00)
--- NOTE | 2017-10-24 10:36 | HHI.FPPN ---
Subjective Remarks Patient sitting up in bed this morning, in no distress. She reports no pain this morning. No chest pain or shortness of breath. No abdominal pain, nausea, vomiting, or diarrhea. Reports normal urination. No dysuria or flank pain. Gets lightheaded with standing. (Lai Ellis MD R3) Objective Vitals Vital Signs Date Time Temp Pulse Resp B/P (MAP) Pulse Ox O2 Delivery O2 Flow Rate FiO2 10/24/17 08:09 98.4 90 16 141/71 (94) 96 10/24/17 04:12 98.1 90 16 110/50 (70) 98 10/24/17 00:31 100.0 92 16 116/61 (79) 95 10/23/17 21:37 96 10/23/17 17:47 98.3 98 16 135/63 (87) 96 10/23/17 13:17 98.4 94 18 160/75 (103) 98 I/O 10/23/17 10/23/17 10/23/17 10/24/17 10/24/17 10/24/17 07:00 15:00 23:00 07:00 15:00 23:00 Intake Total 1500 ml 100 ml Balance 1500 ml 100 ml Intake IV Total 1500 ml 100 ml # Voids 2 1 (Lai Ellis MD R3) Result Diagram: 10/23/17 1516 10/23/17 1446 Objective Remarks General: Sitting up in bed, in no distress. Skin: has ulcer at base of left great toe covered by eschar, non-stageable HEENT: Normocephalic, no nasal discharge CV: RRR, no murmurs, rubs, or gallops, normal pulses and capillary refill. Dorsalis pedis and PT pulses intact but weak. Lungs: CTAB Abdomen: Soft, nontender, nondistended, normal bowel sounds Ext: No edema : No CVA tenderness (Lai Ellis MD R3) A/P Assessment and Plan 52 y/o F presented to the ED after a fall at home with syncope, found to have likely UTI. ESBL e coli UTI in recent history. Also with ulcer with eschar at base of left great toe. Discharge Planning Pending culture results and appropriate antibiotic selection, along with resolution of presenting symptoms. Will need home health and PT at discharge. (Lai Ellis MD R3) Attending Attestation THIS CASE WAS DISCUSSED WITH THE RESIDENT PHYSICIANS. I HAVE REVIEWED THE RECORD , PATIENT SEEN AND EXAMINED< AND AGREE WITH THE ABOVE NOTE AND PLAN OF CARE WAS DISCUSSED. I HAVE AUTHORIZED THE ORDERS (Hemant Thao MD) Problem List: (1) Chronic foot ulcer ICD Codes: L97.509 - Chronic foot ulcer Status: Chronic Plan: Left base of great toe ulcer covered by eschar, not stageable due to the eschar. History of polyneuropathy. Arterial segmental dopplers suggesting peripheral arterial disease, worse on left. X-ray of foot suggesting possible osteomyelitis. - Podiatry on board. - Off set pressure - Educate on diabetic control - Follow wound culture. - Defer to podiatry on further imaging for osteomyelitis. 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 - Infectious disease is on board, appreciate antibiotic recommendations. - May need vascular consult for peripheral arterial disease, will defer to podiatry - Physical therapy on board. - Follow up in wound care center after discharge. (2) UTI (urinary tract infection) ICD Codes: N39.0 - Urinary tract infection, site not specified Status: Acute Plan: History of ESBL E coli UTI, now with positive nitrites and fevers. - Infectious disease on board. - Ertapenem to cover ESBL e. coli - Urine culture pending. - Follow blood cultures. - Tailor antibiotics according to culture/sensitivity results. - May benefit from urology evaluation as an outpatient due to multiple UTI's. (3) Syncope ICD Codes: R55 - Syncope and collapse Status: Acute Plan: Patient with recent episode of syncope with reassuring exam. Orthostatic hypotension versus dysautonomia versus mechanical fall versus TIA/CVA. CT head: No acute intracranial abnormalities. Chest x-ray: No focal consolidation. Hip/ pelvis x-ray: No acute findings. Mild osteoarthritis of the bilateral hips. Orthostatic vital signs: Consistent with orthostatic hypotension - Physical therapy on board. - Fall precautions ordered. - Monitor hydration status. - At discharge, will need home health and physical therapy. - Would benefit from Bahman hose and sitting up/standing slowly when at home. (4) Thickened endometrium ICD Codes: R93.8 - Abnormal findings on diagnostic imaging of other specified body structures Status: Chronic Plan: Thickened endometrium noted on prior CT abdomen, with recommendation for transvaginal ultrasound for further evaluation as an outpatient. Also with lingular density seen on prior CT abdomen, with recommendation for repeat CT scan at regular intervals to assess stability. (5) DM (diabetes mellitus), type 2, uncontrolled w/neurologic complication ICD Codes: E11.49 - Type 2 diabetes mellitus with other diabetic neurological complication; E11.65 - Type 2 diabetes mellitus with hyperglycemia Status: Chronic Plan: Patient with history of type 2 diabetes with polyneuropathy, euglycemic. -Continue home gabapentin -Hold Januvia -Levemir 5 units twice a day -Sliding-scale insulin per protocol (6) Hepatitis C ICD Codes: B19.20 - Unspecified viral hepatitis C without hepatic coma Status: Chronic Plan: Patient with history of hepatitis C, no transaminitis. (7) Nutrition, metabolism, and development symptoms ICD Codes: R63.8 - Other symptoms and signs concerning food and fluid intake Status: Acute Plan: Fluids: PO Electrolytes: Monitor and replace as needed Nutrition: Diabetic diet (8) No contraindication to deep vein thrombosis (DVT) prophylaxis ICD Codes: Z78.9 - Other specified health status Status: Acute Plan: -Heparin 5000 units -SCDs (Lai Ellis MD R3) Problem Qualifiers (1) Chronic foot ulcer: Qualified Codes: L97.522 - Non-pressure chronic ulcer of other part of left foot with fat layer exposed (2) Hepatitis C: Lai Ellis MD R3 Oct 24, 2017 10:36 Hemant Thao MD Oct 25, 2017 10:24
[2017-10-24 12:40] VITALS: BP 142/70; PULSE 91; RESP 18; TEMP 99.3; O2SAT 94
[2017-10-24] MEDS ORDERED: VANCOMYCIN INJ 1,500 MG in SODIUM CHLORID 0.9% 500 ML INJ 500 ML IV SCH (15:00)
[2017-10-24] MEDS ORDERED: Vancomycin Consult Pharmacy 1 EA OTHER SCH (15:00)
[2017-10-24 15:31] LABS: CHOLESTEROL 155 MG/DL (120-200); IRON (FE) 13 MCG/DL (50-170); TRIGLYCERIDES 138 MG/DL (42-150)
--- NOTE | 2017-10-24 15:41 | PD.VS.CON ---
History of Present Illness Chief Complaint: L great toe wound Consult Requested by: Dr. Gutierrez, podiatry History of Present Illness 52 yo female with PAD and several weeks of L great toe wound, nonhealing. + drainage. Seen by podiatry and appropriately consulted for PAD. Has a history of L SFA stent according to patient. Past/Family/Social History Past Medical History hep C PAD XOL DM psoriasis pancreatitis Past Surgical History everton C-sxn appy Family History [place] Home Medications Active Scripts Sulfamethoxazole-Trimethoprim (Bactrim DS) 800-160 Mg Tab, 1 TAB PO BID for Infection for 10 Days, #20 TAB 0 Refills Prov:Melba Mcadams [employer] LEGAL SECRETARY 10/18/17 Cephalexin (Keflex) 500 Mg Cap, 500 MG PO Q6H for Infection for 10 Days, #40 CAP 0 Refills Prov:Melba Mcadams [employer] LEGAL SECRETARY 10/18/17 Midodrine (Midodrine) 5 Mg Tab, 5 MG PO TID for Control Low Blood Pressure, #90 TAB 0 Refills Prov:Sonali Larson MD, R3 09/27/17 Gabapentin (Gabapentin) 400 Mg Cap, 400 MG PO TID, #270 CAP 3 Refills Prov:Sonali Larson MD, R3 06/05/17 Reported Medications Atorvastatin (Atorvastatin) 40 Mg Tab, 40 MG PO HS for Cholesterol Management, # 30 TAB 0 Refills 10/18/17 Sitagliptin (Januvia) 100 Mg Tab, 100 MG PO DAILY for Blood Sugar Management, # 30 TAB 0 Refills 09/23/17 Insulin Detemir Inj (Levemir Inj) 1,000 unit/ 10 ML Vial, 5 UNITS SQ BID for Blood Sugar Management, VIAL 0 Refills Do not mix with any other Insulin. 09/23/17 Discontinued Scripts Cephalexin (Keflex) 500 Mg Cap, 500 MG PO Q6H for Infection for 5 Days, #20 CAP 0 Refills Prov:Karyn Gama [employer] LEGAL SECRETARY 09/30/17 Sulfamethoxazole-Trimethoprim (Bactrim DS) 800-160 Mg Tab, 1 TAB PO BID for Infection, #14 TAB 0 Refills Prov:Sonali Larson MD, R3 09/27/17 Mupirocin Topical (Bactroban Topical) 22 Gm Cream, 1 APPLIC TOPICAL BID for Mgmt Bacterial Infection for 14 Days, #1 TUBE 0 Refills Prov:Keyana Siu MD 09/23/17 Coded Allergies: tramadol (Verified Allergy, Intermediate, Rash, 10/19/17) MRI PRECAUTION (Verified Adverse Reaction, Severe, PACEMAKER IS NOT A BIOTRONIK OR MEDTRONIC 06/15/16 KMD, 10/19/17) PACEMAKER IS NOT A BIOTRONIK OR MEDTRONIC CONDITIONAL PACEMAKER. CALLED BOTH COMPANIES TO CONFIRM. acetaminophen (Verified Adverse Reaction, Severe, Nausea/Vomiting, ) metformin (Verified Adverse Reaction, Severe, DIARRHEA, 10/19/17) morphine (Verified Adverse Reaction, Severe, Dizziness, 10/19/17) oxycodone (Verified Adverse Reaction, Severe, Nausea/Vomiting, 10/19/17) prochlorperazine (Verified Adverse Reaction, Severe, ANXIETY, 10/19/17) ANXIETY Review of Systems Constitutional: COMPLAINS OF: Chills Respiratory: COMPLAINS OF: Snoring, DENIES: Cough Cardiovascular: DENIES: Chest pain Physical Exam Vitals/I&O Date Time Temp Pulse Resp B/P (MAP) Pulse Ox O2 Delivery O2 Flow Rate FiO2 10/24/17 12:40 99.3 91 18 142/70 (94) 94 10/24/17 08:09 98.4 90 16 141/71 (94) 96 10/24/17 04:12 98.1 90 16 110/50 (70) 98 10/24/17 00:31 100.0 92 16 116/61 (79) 95 10/23/17 21:37 96 10/23/17 17:47 98.3 98 16 135/63 (87) 96 Neuro: resting, in no distress HEENT: NC/AT Neck: no JVD Heart: reg rate Lungs: coarse Vascular: palpable L popliteal pulse but no distal pulses Extremities: L 1st toe erythematous with ulcer on dorsum of it Laboratory Tests Test 10/24/17 14:30 Iron Level 13 Triglycerides Level 138 Cholesterol Level 155 Date/Time Source Procedure Growth Status 10/21/17 19:45 Blood Peripheral Aerobic Blood Culture - Preliminary NO GROWTH IN 3 DAYS Resulted 10/21/17 19:45 Blood Peripheral Anaerobic Blood Culture - Preliminary NO GROWTH IN 3 DAYS Resulted 10/22/17 06:10 Urine Other Urine Culture - Final NO GROWTH IN 48 HOURS. Complete 10/23/17 12:55 Wound Toe Gram Stain - Final Resulted 10/23/17 12:55 Wound Culture - Preliminary S. Aureus Mrsa Gram Negative [place] Resulted Last 48 hours Impressions Foot X-Ray 10/23/17 0000 Signed Impressions: Service Date/Time: Monday, October 23, 2017 12:48 - CONCLUSION: 1. Subtle erosive change and periosteal reaction involving the proximal first phalanx concerning for osteomyelitis. Yakov Pickett MD Assessment and Plan Plan PAD and L 1st toe likely with osteo 1. Defer to podiatry for toe amputation 2. Palpable popliteal pulse but no distal pulse. Will schedule for angiogram MONDAY AFTERNOON. NPO after MN tonight. 3. Continue antibiotics 4. CV risk factor modification: antiplatelet, statin, A1c check Will follow Lyndon Mcgrath MD FACS [employer] school program director [facility] at [facility] [phone] Lyndon Mcgrath MD Oct 24, 2017 15:41
[2017-10-24 15:47] LABS: % SATURATION IRON PROFILE 6.2 % (20-50); CHOLESTEROL/ HDL RATIO 5.53 RATIO; FERRITIN 228 NG/ML (8-252); LDL CHOLESTEROL 99 MG/DL (0-99); TOTAL IRON BINDING CAPACITY 209 MCG/DL (250-450)
[2017-10-24 17:46] VITALS: BP 109/55; PULSE 98; RESP 18; TEMP 99.1; O2SAT 95
[2017-10-24] MEDS ORDERED: VANCOMYCIN INJ 1,500 MG in SODIUM CHLORID 0.9% 500 ML INJ 500 ML IV ONE (18:00)
[2017-10-24 18:32] VITALS: BP 125/58; PULSE 95; RESP 16; O2SAT 96
--- NOTE | 2017-10-24 18:53 | HHI.IDPN ---
Note Infectious Disease Note Asked to follow patient for MRSA positive culture of the R. great toe and osteomyelitis on xray. She is currently very somnolent. Aroused after loud verbal stimuli. Say she does not know why she is so sleepy. RN reports that she did not receive any sedatives. Afebrile. Repeat urine culture has no growth. The patient was noted to have had a urinary tract infection with positive culture on 10/18 which grew out ESBL E. coli. PAST MEDICAL HISTORY: 1. Recurrent urinary tract infection. The patient has had several urinary tract infections due to E. coli ESBL-positive. 2. Hyperlipidemia. 3. Diabetes mellitus. 4. 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 The patient is status post chemotherapy and radiation. 5. Port placement. 6. Pacemaker. 7. Peripheral vascular disease. 8. History of pancreatitis. 9. History of fifth toe amputation for osteomyelitis. 10. Orthostatic hypotension. 11. Hepatitis C. 12. Asthma. 13. Cholecystectomy. 14. Appendectomy. 15. Tonsillectomy. ALLERGIES: 1. ACETAMINOPHEN. 2. METFORMIN. 3. MORPHINE. 4. OXYCODONE. 5. PROCHLORPERAZINE. 6. TRAMADOL. MEDICATIONS: 1. Piperacillin / tazobactam. 2. Vancomycin started today. OBJECTIVE: Vital Signs Date Time Temp Pulse Resp B/P (MAP) Pulse Ox O2 Delivery O2 Flow Rate FiO2 10/24/17 18:32 95 16 125/58 (80) 96 10/24/17 17:46 99.1 98 18 109/55 (73) 95 10/24/17 12:40 99.3 91 18 142/70 (94) 94 10/24/17 08:09 98.4 90 16 141/71 (94) 96 10/24/17 04:12 98.1 90 16 110/50 (70) 98 10/24/17 00:31 100.0 92 16 116/61 (79) 95 10/23/17 21:37 96 Laboratory Tests Test 10/23/17 15:16 White Blood Count 8.7 TH/MM3 Red Blood Count 2.84 MIL/MM3 Hemoglobin 8.1 GM/DL Hematocrit 24.4 % Mean Corpuscular Volume 85.7 FL Mean Corpuscular Hemoglobin 28.5 PG Mean Corpuscular Hemoglobin Concent 33.3 % Red Cell Distribution Width 14.2 % Platelet Count 301 TH/MM3 Mean Platelet Volume 7.6 FL Laboratory Tests Test 10/23/17 14:46 10/24/17 14:30 Blood Urea Nitrogen 5 MG/DL Creatinine 0.49 MG/DL Random Glucose 171 MG/DL Calcium Level 9.5 MG/DL Sodium Level 138 MEQ/L Potassium Level 3.6 MEQ/L Chloride Level 100 MEQ/L Carbon Dioxide Level 31.5 MEQ/L Anion Gap 7 MEQ/L Estimat Glomerular Filtration Rate 133 ML/MIN Iron Level 13 MCG/DL Total Iron Binding Capacity 209 MCG/DL Percent Iron Saturation 6.2 % Ferritin 228 NG/ML Triglycerides Level 138 MG/DL Cholesterol Level 155 MG/DL LDL Cholesterol 99 MG/DL HDL Cholesterol 28.0 MG/DL Cholesterol/HDL Ratio 5.53 RATIO Microbiology Date/Time Source Procedure Growth Status 10/21/17 19:45 Blood Peripheral Aerobic Blood Culture - Preliminary NO GROWTH IN 3 DAYS Resulted 10/21/17 19:45 Blood Peripheral Anaerobic Blood Culture - Preliminary NO GROWTH IN 3 DAYS Resulted 10/21/17 19:40 Blood Peripheral Aerobic Blood Culture - Preliminary NO GROWTH IN 3 DAYS Resulted 10/21/17 19:40 Blood Peripheral Anaerobic Blood Culture - Preliminary NO GROWTH IN 3 DAYS Resulted 10/22/17 06:10 Urine Other Urine Culture - Final NO GROWTH IN 48 HOURS. Complete 10/23/17 12:55 Wound Toe Gram Stain - Final Resulted 10/23/17 12:55 Wound Culture - Preliminary S. Aureus Mrsa Gram Negative [place] Resulted PHYSICAL EXAMINATION: GENERAL: No acute distress. She is awake and alert and oriented. HEAD, EYES, EARS, NOSE, THROAT: The head is atraumatic. Extraocular movements grossly intact. Pupils are reactive to light. No icterus. Oropharynx with moist mucosa without lesions. NECK: The neck is supple without adenopathy. LUNGS: Clear with decreased breath sounds. HEART: Regular S1 and S2. No murmurs. ABDOMEN: Bowel sounds present, soft, nontender. EXTREMITIES: No clubbing or cyanosis or edema. R great toe has erythema and an ulceration at the lateral aspect. (+) purulent drainage. SKIN: No rash. NEUROLOGIC: Nonfocal. IMPRESSION: 1. Recurrent urinary tract infection. 2. Positive urine culture with E. coli ESBL. Repeat urine culture negative. 3. Osteomyelitis left great toe MRSA/gram neg day[place]. RECOMMENDATIONS: 1. Continue Ertapenem. 2. Continue Vancomycin and monitor the sensitivity of the MRSA. 3. Continue to monitor the gram neg day[place] in the wound culture. 4. Would give 4 weeks of vancomycin if the involved toe is not surgically amputated. Mo Valencia MD Oct 24, 2017 18:53
[2017-10-25] VITALS (11 sets, daily range): BP systolic 86–161; BP diastolic 52–78; PULSE 86–97; RESP 16–18; TEMP 97.6–98.7; O2SAT 95–99
[2017-10-25] MEDS ORDERED: IOHEXOL 350 MG/ML 50 ML BTL (for Cath Lab) OTHER ONE (10:39)
--- NOTE | 2017-10-25 11:03 | PD.VS.PN ---
Subjective Subjective/Hospital Course Pt resting alert in NAD Pt denies rest pain LE warm with motor intact Non palpable LLE distal pulses Pt with a L dry great toe ulceration "awhile" pt noted Objective Vitals/I&O Date Time Temp Pulse Resp B/P (MAP) Pulse Ox O2 Delivery O2 Flow Rate FiO2 10/25/17 08:15 98.3 90 18 133/67 (89) 95 10/25/17 04:23 97.9 91 18 102/54 (70) 96 10/24/17 18:32 95 16 125/58 (80) 96 10/24/17 17:46 99.1 98 18 109/55 (73) 95 10/24/17 12:40 99.3 91 18 142/70 (94) 94 Physical Exam GENERAL: A&Ox3,NAD,GCS15 SKIN: BLE Warm and dry with motor intact/ LEFT great toe with a dry ulceration w/o R/D /S Non palpable distal pulses noted Laboratory Laboratory Tests Test 10/24/17 14:30 Iron Level 13 Total Iron Binding Capacity 209 Percent Iron Saturation 6.2 Ferritin 228 Triglycerides Level 138 Cholesterol Level 155 LDL Cholesterol 99 HDL Cholesterol 28.0 Cholesterol/HDL Ratio 5.53 Date/Time Source Procedure Growth Status 10/21/17 19:45 Blood Peripheral Aerobic Blood Culture - Preliminary NO GROWTH IN 3 DAYS Resulted 10/21/17 19:45 Blood Peripheral Anaerobic Blood Culture - Preliminary NO GROWTH IN 3 DAYS Resulted 10/22/17 06:10 Urine Other Urine Culture - Final NO GROWTH IN 48 HOURS. Complete 10/23/17 12:55 Wound Toe Gram Stain - Final Resulted 10/23/17 12:55 Wound Culture - Preliminary S. Aureus Mrsa Escherichia Coli Esbl Positive Resulted Assessment and Plan Plan PAD and L 1st toe likely with osteo Pt w/ non palpable distal LLE pulse Pt w/ non healing LEFT great toe dry ulceration Plan Discussed and reviewed LLE angiogram procedure Questions answered and pt agrees w/ plan Consent signed and placed in the chart Pt schedule w/ Dr. Mcgrath for a LLE angiogram this AFTERNOON NPO Mickie LOZOYA [facility] [phone] Mickie Carlton Oct 25, 2017 11:03
--- NOTE | 2017-10-25 11:17 | HHI.FPPN ---
Subjective Remarks Sitting up in bed, no distress. No chest pain, shortness of breath, abdominal pain, nausea, vomiting, diarrhea. No pain at ulcer site. Has lower back pain. No flank pain or dysuria. She is scheduled for angiogram today. Wound culture is growing MRSA and ESBL E Coli. She continues with Ertapenem and vancomycin was added yesterday to cover MRSA. Urine culture remains negative. Blood culture is negative. (Lai Ellis MD R3) Objective Vitals Vital Signs Date Time Temp Pulse Resp B/P (MAP) Pulse Ox O2 Delivery O2 Flow Rate FiO2 10/25/17 08:15 98.3 90 18 133/67 (89) 95 10/25/17 04:23 97.9 91 18 102/54 (70) 96 10/24/17 18:32 95 16 125/58 (80) 96 10/24/17 17:46 99.1 98 18 109/55 (73) 95 10/24/17 12:40 99.3 91 18 142/70 (94) 94 I/O 10/24/17 10/24/17 10/24/17 10/25/17 10/25/17 10/25/17 07:00 15:00 23:00 07:00 15:00 23:00 # Voids 1 1 (Lai Ellis MD R3) Result Diagram: 10/23/17 1516 10/23/17 1446 Imaging Last 72 hours Impressions Foot X-Ray 10/23/17 0000 Signed Impressions: Service Date/Time: Monday, October 23, 2017 12:48 - CONCLUSION: 1. Subtle erosive change and periosteal reaction involving the proximal first phalanx concerning for osteomyelitis. Yakov Pickett MD Objective Remarks General: Sitting up in bed, in no distress. Skin: has ulcer at base of left great toe covered by eschar, non-stageable. Currently dressed and covered. HEENT: Normocephalic, no nasal discharge CV: RRR, no murmurs, rubs, or gallops, normal pulses and capillary refill. Dorsalis pedis and PT pulses intact but weak. Lungs: CTAB Abdomen: Soft, nontender, nondistended, normal bowel sounds Ext: No edema : No CVA tenderness Procedures Angiogram scheduled for 10/25/17 (Lai Ellis MD R3) A/P Assessment and Plan 52 y/o F presented to the ED after a fall at home with syncope, found to have likely UTI. ESBL e coli UTI in recent history. Also with ulcer with eschar at base of left great toe. Wound culture with MRSA and ESBL E coli Discharge Planning Pending culture results and appropriate antibiotic selection, along with resolution of presenting symptoms. Will need home health and PT at discharge. (Lai Ellis MD R3) Attending Attestation ... Medical rounds were performed this morning with Dr Adriana Ellis, case discussed in detail, patient seen and examined,agree with above documentation and assessment, see Orders (Hemant Thao MD) Problem List: (1) Chronic foot ulcer ICD Codes: L97.509 - Chronic foot ulcer Status: Chronic Plan: Left base of great toe ulcer covered by eschar, not stageable due to the eschar. History of polyneuropathy. Arterial segmental Doppler suggesting peripheral arterial disease, worse on left. X-ray of foot suggesting possible osteomyelitis. Tagged WBC scan pending. Culture of wound growing MRSA and ESBL E Coli. - Podiatry on board. - Infectious disease on board. - Vascular surgery on board. - Angiogram scheduled 10/25 - Vancomycin to cover MRSA, Ertapenem to cover ESBL E coli. - If toe is not amputated, will need 4 weeks of vancomycin. - Physical therapy on board. - Follow up in wound care center after discharge. - Educate on diabetic control (2) Syncope ICD Codes: R55 - Syncope and collapse Status: Acute Plan: Patient with recent episode of syncope with reassuring exam. Orthostatic hypotension versus dysautonomia versus mechanical fall versus TIA/CVA. CT head: No acute intracranial abnormalities. Chest x-ray: No focal consolidation. Hip/ pelvis x-ray: No acute findings. Mild osteoarthritis of the bilateral hips. Orthostatic vital signs: Consistent with orthostatic hypotension - Physical therapy on board. - Fall precautions ordered. - Monitor hydration status. - At discharge, will need home health and physical therapy. - Would benefit from Bahamn hose and sitting up/standing slowly when at home. (3) DM (diabetes mellitus), type 2, uncontrolled w/neurologic complication ICD Codes: E11.49 - Type 2 diabetes mellitus with other diabetic neurological complication; E11.65 - Type 2 diabetes mellitus with hyperglycemia Status: Chronic Plan: Patient with history of type 2 diabetes with polyneuropathy, euglycemic. -Continue home gabapentin -Hold Januvia -Levemir 5 units twice a day -Sliding-scale insulin per protocol (4) Thickened endometrium ICD Codes: R93.8 - Abnormal findings on diagnostic imaging of other specified body structures Status: Chronic Plan: Thickened endometrium noted on prior CT abdomen, with recommendation for transvaginal ultrasound for further evaluation as an outpatient. Also with lingular density seen on prior CT abdomen, with recommendation for repeat CT scan at regular intervals to assess stability. (5) Hepatitis C ICD Codes: B19.20 - Unspecified viral hepatitis C without hepatic coma Status: Chronic Plan: Patient with history of hepatitis C, no transaminitis. (6) Nutrition, metabolism, and development symptoms ICD Codes: R63.8 - Other symptoms and signs concerning food and fluid intake Status: Acute Plan: Fluids: PO Electrolytes: Monitor and replace as needed Nutrition: Diabetic diet (7) No contraindication to deep vein thrombosis (DVT) prophylaxis ICD Codes: Z78.9 - Other specified health status Status: Acute Plan: -Heparin 5000 units -SCDs (Lai Ellis MD R3) Problem Qualifiers (1) Chronic foot ulcer: Qualified Codes: L97.522 - Non-pressure chronic ulcer of other part of left foot with fat layer exposed (2) Hepatitis C: Lai Ellis MD R3 Oct 25, 2017 11:17 Hemant Thao MD Oct 26, 2017 09:20
--- NOTE | 2017-10-25 11:35 | RADRPT ---
EXAM DATE/TIME: 10/24/2017 16:17 [facility] COMPARISON: No previous studies available for comparison. INDICATIONS : Left foot ulcer. DOSE: 21 mCi Tc99m Ceretec labeled white blood cells IV SPECT IMAGIN hrs, 20 hrs IMAGNG: SPECT/CT imaging with fusion was performed. RADIATION DOSE: 5.11 CTDIvol (mGy) ; Multiple Day Study MEDICAL HISTORY : Diabetes mellitus type 2. Cardiovascular disease Throat cancer. SURGICAL HISTORY : Cholecystectomy. Tonsillectomy. ENCOUNTER: Initial ACUITY: 4 - 6 days PAIN SCALE: 3/10 LOCATION: Left Foot. TECHNIQUE: Following the in vitro labeling of autologous white cells and reinjection, whole body scan was perfor med at the specified times. SPECT imaging was performed at the specified time in sagittal, axial and coronal planes. Attenuation correction was performed with the computed tomography and both the atten uation correction and non-attenuation corrected data sets were reviewed. FINDINGS: Marked soft tissue uptake is seen around the great toe extending across the first metatarsal phalange al joint. Most of the superior soft tissue that is suspicious for involvement of the distal first me tatarsal. No other uptake is evident. CONCLUSION: Uptake as described above that doesn't extend into the first metatarsal.. Fer Sorensen MD FACR on October 25, 2017 at 11:32 Board Certified Radiologist. This report was verified electronically.
[2017-10-25] MEDS ORDERED: ASP: Documented ESBL, MDR A baumannii or P. aeruginosa PRN (11:45)
[2017-10-25] MEDS ORDERED: MISCELLANEOUS PHARMACY INFORMATION XX PRN (11:45)
[2017-10-25] MEDS ORDERED: HEPARIN-NS/PF INJ 1,000 ML ONE (12:07)
[2017-10-25] MEDS ORDERED: HEPARIN SODIUM - IV 10,000 UNITS/10 ML VIAL ONE (12:09)
[2017-10-25] MEDS ORDERED: MIDAZOLAM HCL 5 MG/5 ML VIAL ONE (12:09)
--- NOTE | 2017-10-25 12:14 | PD.POD ---
Subjective Podiatric Problems Patient with ulceration and necrotic eschar of the left first MPJ Pain scale used: 0-10 numeric scale Pain score: 0 Remarks 52-year-old female with necrotic wound of the left first MPJ. Patient due to have a angiogram by Dr. Mcgrath this afternoon. [place] labeled white blood cell scan was finished today and shows no osteomyelitis. If blood supply is able to be improved she might benefit from an or debridement of the first MPJ. Past Med/Surg/Social History Past Medical History HEENT: REPORTS HX OF: Other HEENT history Endocrine: REPORTS HX OF: Diabetes mellitus Respiratory: REPORTS HX OF: Asthma Cardiovascular: REPORTS HX OF: Hypertension, Peripheral vascular dz Gastrointestinal: REPORTS HX OF: Pancreatitis, Other GI history Genitourinary: REPORTS HX OF: Herpes genitalis, Past UTI Musculoskeletal: REPORTS HX OF: Other musculoskeletal hx (osteomyelitis of the fifth toe right foot) Cancer/Hematology: REPORTS HX OF: Oral cancer Infectious disease: REPORTS HX OF: Hepatitis (Hep C), MRSA, Other inf disease history Neurologic: REPORTS HX OF: Peripheral neuropathy Disabilities: REPORTS HX OF: Vision deficit Past Surgical History HEENT: REPORTS HX OF: Dental surgery Cardiovascular: REPORTS HX OF: Coronary stent (Left leg), Pacemaker, Other cardiac surgery (Rigth chest port) Gastrointestinal: REPORTS HX OF: Appendectomy, DENIES HX OF: Colectomy, total Gynecologic: DENIES HX OF: Hysterectomy Musculoskeletal: REPORTS HX OF: Other musculoskeletal srg (fifth ray amputation right foot) Breast: REPORTS HX OF: Mastectomy, bilateral, Mastectomy, left, Mastectomy, right Social History Smoking Status: Never Smoker Review of Systems Notes No changes in her 14 point review of systems exam since she was last seen Objective Vital Signs Vital Signs Date Time Temp Pulse Resp B/P (MAP) Pulse Ox O2 Delivery O2 Flow Rate FiO2 10/25/17 08:15 98.3 90 18 133/67 (89) 95 10/25/17 04:23 97.9 91 18 102/54 (70) 96 10/24/17 18:32 95 16 125/58 (80) 96 10/24/17 17:46 99.1 98 18 109/55 (73) 95 10/24/17 12:40 99.3 91 18 142/70 (94) 94 Coded Allergies: tramadol (Verified Allergy, Intermediate, Rash, 10/19/17) MRI PRECAUTION (Verified Adverse Reaction, Severe, PACEMAKER IS NOT A BIOTRONIK OR MEDTRONIC 06/15/16 KMD, 10/19/17) PACEMAKER IS NOT A BIOTRONIK OR MEDTRONIC CONDITIONAL PACEMAKER. CALLED BOTH COMPANIES TO CONFIRM. acetaminophen (Verified Adverse Reaction, Severe, Nausea/Vomiting, ) metformin (Verified Adverse Reaction, Severe, DIARRHEA, 10/19/17) morphine (Verified Adverse Reaction, Severe, Dizziness, 10/19/17) oxycodone (Verified Adverse Reaction, Severe, Nausea/Vomiting, 10/19/17) prochlorperazine (Verified Adverse Reaction, Severe, ANXIETY, 10/19/17) ANXIETY Medications and IVs Current Medications Sodium Chloride (NS Flush) 2 ml UNSCH PRN IVF FLUSH AFTER USING IV ACCESS; Start 10/21/17 at 19:15; Stop 10/21/17 at 23:22; Status DC Sodium Chloride 1,000 ml @ 1,000 mls/hr Q1H ONCE IV Last administered on 10/21 19:48; Start 10/21/17 at 19:14; Stop 10/21/17 at 20:15; Status DC Nitrofurantoin Macrocrystals (Macrobid) 100 mg ONCE ONCE PO ; Start 10/21/17 at 19:15; Stop 10/21/17 at 19:24; Status DC Ampicillin Sodium/ Sulbactam Sodium 3 gm/Sodium Chloride 100 ml @ 200 mls/hr ONCE ONCE IV Last administered on 10/21/17 20:39; Start 10/21/17 at 19:30; Stop 10/21/17 at 19:59; Status DC Sodium Chloride 1,000 ml @ 100 mls/hr Q10H IV Last administered on 10/23/17 08:15; Start 10/21/17 at 22:27; Stop 10/23/17 at 12:04; Status DC Sodium Chloride (NS Flush) 2 ml UNSCH PRN IV FLUSH FLUSH AFTER USING IV ACCESS ; Start 10/21/17 at 22:30 Sodium Chloride (NS Flush) 2 ml BID IV FLUSH Last administered on 10/24/17 09 :42; Start 10/22/17 at 09:00 Acetaminophen (Tylenol) 650 mg Q4H PRN PO TEMP > 100.4 Last administered on 18:27; Start 10/21/17 at 22:30 Ondansetron HCl (Zofran Inj) 4 mg Q6H PRN IVP NAUSEA OR VOMITING; Start at 22:30 Heparin Sodium (Porcine) (Heparin Inj) 5,000 units Q8H SQ Last administered on 10/24/17 18:35; Start 10/22/17 at 00:00 Naloxone HCl (Narcan Inj) 0.4 mg UNSCH PRN IV PUSH SEE LABEL COMMENTS; Start 10/21/17 at 22:30 Senna/Docusate Sodium (Tamiko-Colace) 1 tab BID PO Last administered on 00:02; Start 10/22/17 at 09:00 Magnesium Hydroxide (Milk Of Magnesia Liq) 30 ml Q12H PRN PO Mild constipation ; Start 10/21/17 at 22:30 Sennosides (Senokot) 17.2 mg Q12H PRN PO Moderate constipation; Start at 22:30 Bisacodyl (Dulcolax Supp) 10 mg DAILY PRN RECTAL SEVERE CONSITIPATION; Start 10/21/17 at 22:30 Lactulose (Lactulose Liq) 30 ml DAILY PRN PO SEVERE CONSITIPATION; Start 10/21 at 22:30 Piperacillin Sod/ Tazobactam Sod 50 ml @ 100 mls/hr Q6H IV Last administered on 10/22/17 11:13; Start 10/22/17 at 00:00; Stop 10/22/17 at 13:34; Status DC Atorvastatin Calcium (Lipitor) 40 mg HS PO Last administered on 10/24/17 00: 02; Start 10/22/17 at 21:00 Gabapentin (Neurontin) 400 mg TID PO Last administered on 10/24/17 18:35; Start 10/22/17 at 09:00 Midodrine (Proamatine) 5 mg TID PO Last administered on 10/24/17 18:35; Start 10/22/17 at 09:00 Dextrose (D50w (Vial) Inj) 50 ml UNSCH PRN IV PUSH HYPOGLYCEMIA-SEE COMMENTS; Start 10/22/17 at 03:00 Glucagon (Glucagon Inj) 1 mg UNSCH PRN OTHER HYPOGLYCEMIA-SEE COMMENTS; Start 10/22/17 at 03:00 Insulin Aspart (NovoLOG SUPPLEMENTAL SCALE) 1 ACHS SLIDING SCALE SQ Last administered on 10/24/17 18:42; Start 10/22/17 at 08:00 Insulin Detemir (Levemir Inj) 5 units Q12HR SQ Last administered on 10/24/17 09:42; Start 10/22/17 at 21:00 Miscellaneous Medication (ASP Crit: Doc ESBL, MDR A baumannii or P aer) 1 UNSCH X1 PRN .XX PHARMACY DOCUMENTATION; Start 10/22/17 at 13:45; Stop 10/23/17 at 13:44; Status DC Miscellaneous Medication ([facility] [place] [facility]acy Information) 1 UNSCH X1 PRN XX PHARMACY DOCUMENTATION; Start 10/22/17 at 13:45; Stop 10/23/17 at 13:44; Status DC Ertapenem 1000 mg/ Sodium Chloride 100 ml @ 200 mls/hr Q24H IV Last administered on 10/23/17 15:19; Start 10/22/17 at 15:00; Stop 10/24/17 at 15 :00; Status DC Miscellaneous Medication ([facility] [place] Pharmacy Information) 1 UNSCH X1 PRN XX PHARMACY DOCUMENTATION; Start 10/22/17 at 13:45; Stop 10/23/17 at 13:44; Status DC Vancomycin HCl 1500 mg/Sodium Chloride 515 ml @ 257.5 mls/ hr Q12H IV ; Start 10/24/17 at 15:00; Status UNV Pharmacy Profile Note 0 ml @ 0 mls/hr UNSCH OTHER ; Start 10/24/17 at 15:00 Vancomycin HCl 1500 mg/Sodium Chloride 515 ml @ 257.5 mls/ hr ONCE ONCE IV Last administered on 10/24/17 18:34; Start 10/24/17 at 18:00; Stop 10/24/17 at 19:59; Status DC Vancomycin HCl 1000 mg/Sodium Chloride 250 ml @ 250 mls/hr Q8H IV ; Start at 06:00 Miscellaneous Information SPECIFIC LAB TO BE AGUSTIN... ONCE ONCE .XX ; Start at 21:45; Stop 10/25/17 at 21:46 Ertapenem (INVanz INJ) 1,000 mg DAILY IM ; Start 10/25/17 at 15:00; Stop 10/25 at 15:00; Status DC Ferrous Sulfate (Ferrous Sulfate) 325 mg DAILY PO ; Start 10/25/17 at 11:15 Miscellaneous Medication (ASP Crit: Doc ESBL, MDR A baumannii or P aer) 1 UNSCH X1 PRN .XX PHARMACY DOCUMENTATION; Start 10/25/17 at 11:45; Stop 10/26/17 at 11:44 Miscellaneous Medication ([facility] [place] [facility] Pharmacy Information) 1 UNSCH X1 PRN XX PHARMACY DOCUMENTATION; Start 10/25/17 at 11:45; Stop 10/26/17 at 11:44 Ertapenem 1000 mg/ Sodium Chloride 100 ml @ 200 mls/hr Q24H IV ; Start at 12:00 Other Results Laboratory Tests Test 10/23/17 15:16 White Blood Count 8.7 TH/MM3 Red Blood Count 2.84 MIL/MM3 Hemoglobin 8.1 GM/DL Hematocrit 24.4 % Mean Corpuscular Volume 85.7 FL Mean Corpuscular Hemoglobin 28.5 PG Mean Corpuscular Hemoglobin Concent 33.3 % Red Cell Distribution Width 14.2 % Platelet Count 301 TH/MM3 Mean Platelet Volume 7.6 FL Laboratory Tests Test 10/23/17 14:46 10/24/17 14:30 Blood Urea Nitrogen 5 MG/DL Creatinine 0.49 MG/DL Random Glucose 171 MG/DL Calcium Level 9.5 MG/DL Sodium Level 138 MEQ/L Potassium Level 3.6 MEQ/L Chloride Level 100 MEQ/L Carbon Dioxide Level 31.5 MEQ/L Anion Gap 7 MEQ/L Estimat Glomerular Filtration Rate 133 ML/MIN Iron Level 13 MCG/DL Total Iron Binding Capacity 209 MCG/DL Percent Iron Saturation 6.2 % Ferritin 228 NG/ML Triglycerides Level 138 MG/DL Cholesterol Level 155 MG/DL LDL Cholesterol 99 MG/DL HDL Cholesterol 28.0 MG/DL Cholesterol/HDL Ratio 5.53 RATIO Microbiology Date/Time Source Procedure Growth Status 10/23/17 12:55 Wound Toe Gram Stain - Final Resulted 10/23/17 12:55 Wound Culture - Preliminary S. Aureus Mrsa Escherichia Coli Esbl Positive Resulted Last Impressions Tumor Localization 10/24/17 0000 Signed Impressions: Service Date/Time: Tuesday, October 24, 2017 16:17 - CONCLUSION: Uptake as described above that doesn't extend into the first metatarsal.. Fer Sorensen MD FACR Foot X-Ray 10/23/17 0000 Signed Impressions: Service Date/Time: Monday, October 23, 2017 12:48 - CONCLUSION: 1. Subtle erosive change and periosteal reaction involving the proximal first phalanx concerning for osteomyelitis. Yakov Pickett MD Head CT [id number] Signed Impressions: Service Date/Time: Saturday, October 21, 2017 20:04 - CONCLUSION: 1. No acute intracranial abnormalities. Mucosal thickening right maxillary sinus. Mika Weber MD Chest X-Ray [id number] Signed Impressions: Service Date/Time: Saturday, October 21, 2017 20:15 - CONCLUSION: 1. [id number] in superior vena cava. No focal consolidation. Mika Weber MD Hip and Pelvis X-Ray 10/21/17 0000 Signed Impressions: Service Date/Time: Saturday, October 21, 2017 20:21 - CONCLUSION: 1. No acute findings. Mild osteoarthritis at the bilateral hips. Mika Weber MD Exam-Podiatry Constitutional General appearance: comfortable Nutritional status: normal Orientation: alert and oriented x3 Dermatological Exam Skin Temp - Right: Within Normal Limits Skin Texture - Right: Within Normal Limits Skin Elasticity - Right: Within Normal Limits Skin Tugor - Right: Within Normal Limits Hair Growth - Right: Within Normal Limits Pigmentation - Right: Within Normal Limits Skin Temp - Left: Cool Skin Texture - Left: Thin Skin Elasticity - Left: Decreased Skin Tugor - Left: Decreased Hair Growth - Left: Absent Pigmentation - Left: Abnormal Ulcers: Location/Measurements Ulceration of the left medial and plantar first MPJ with necrotic eschar. Vascular/Lymphatic Exam R Dorsails Pedis: Doppler L Dorsails Pedis: Doppler R Posterior Tibial: Doppler L Posterior Tibial: Doppler Neurologic Exam Present on right: Tingling, Paraesthesia Present on left: Tingling, Paraesthesia Muscle Strength Dorsiflexion (Right): Normal Plantarflexion (Right): Normal Inversion (Right): Normal Eversion (Right): Normal Digital (Right): Normal Dorsiflexion (Left): Normal Plantarflexion (Left): Normal Inversion (Left): Normal Eversion (Left): Normal Digital (Left): Normal Foot Range of Motion Dorsiflexion (Right): Normal Plantarflexion (Right): Normal Inversion (Right): Normal Eversion (Right): Normal Digital (Right): Normal Dorsiflexion (Left): Normal Plantarflexion (Left): Normal Inversion (Left): Normal Eversion (Left): Normal Digital (Left): Normal Assessment & Plan Diagnosis: (1) DM (diabetes mellitus) ICD Codes: E11.9 - Type 2 diabetes mellitus without complications Status: Chronic (2) Chronic foot ulcer ICD Codes: L97.509 - Chronic foot ulcer Status: Chronic (3) Methicillin resistant Staphylococcus aureus infection ICD Codes: A49.02 - Methicillin resistant Staphylococcus aureus infection Status: Acute A/P PLAN: Await vascular evaluation with angiogram prior to any OR or surgical debridement of left first MPJ. Will continue to follow Problem Qualifiers (1) DM (diabetes mellitus): Qualified Codes: E11.621 - Type 2 diabetes mellitus with foot ulcer; L97.509 - Non-pressure chronic ulcer of other part of unspecified foot with unspecified severity; Z79.4 - exterminator (current) use of insulin (2) Chronic foot ulcer: Qualified Codes: L97.522 - Non-pressure chronic ulcer of other part of left foot with fat layer exposed Luis Gutierrez DPM Oct 25, 2017 12:14
[2017-10-25] MEDS: GABAPENTIN 400 MG CAP PO SCH ×3 (12:20→20:05)
[2017-10-25] MEDS: MIDODRINE 5 MG TAB PO SCH ×2 (12:20→12:30)
[2017-10-25] MEDS: HEPARIN SODIUM - SQ 10,000 UNITS/ML VIAL SQ SCH ×2 (12:21)
[2017-10-25] MEDS: INSULIN ASPART SUPPLEMENTAL SCALE SQ SCH ×3 (12:21→20:59)
[2017-10-25] MEDS: FERROUS SULFATE 325 MG (65 MG ELEMENTAL IRON) TAB PO SCH (12:21)
[2017-10-25] MEDS: VANCOMYCIN 1,000 MG/NS 250 ML IV SCH ×4 (12:26→20:33)
[2017-10-25] MEDS: DOCUSATE SODIUM 50 MG/SENNA 8.6 MG TAB PO SCH ×2 (12:27→20:06)
[2017-10-25] MEDS: SODIUM CHLORIDE 0.9% FLUSH 10 ML FLUSH IV FLUSH SCH ×2 (12:27→20:57)
[2017-10-25] MEDS: INSULIN DETEMIR 100 UNITS/ML VIAL SQ SCH ×2 (12:27→21:04)
[2017-10-25 13:04] LABS: HEMATOCRIT 24.2 % (35.0-46.0); HEMOGLOBIN 8.1 GM/DL (11.6-15.3); MEAN CELL VOLUME 85.7 FL (80.0-100.0); MEAN CORPUSCULAR HEMOGLOBIN 28.8 PG (27.0-34.0); MEAN CORPUSCULAR HGB CONC 33.6 % (32.0-36.0); MEAN PLATELET VOLUME 7.7 FL (7.0-11.0); PLATELET COUNT 329 TH/MM3 (150-450); RED BLOOD COUNT 2.83 MIL/MM3 (4.00-5.30); RED CELL DISTRIBUTION WIDTH 14.3 % (11.6-17.2)
[2017-10-25 13:13] LABS: BICARBONATE 31.4 MEQ/L (21.0-32.0); CALCIUM 9.5 MG/DL (8.5-10.1); CREATININE 0.48 MG/DL (0.50-1.00)
[2017-10-25] MEDS: ERTAPENEM INJ 1,000 MG in SODIUM CHLORIDE 0.9% INJ 100 ML IV SCH (14:17)
[2017-10-25] MEDS ORDERED: ERTAPENEM SODIUM 1000 MG VIAL IM SCH (15:00)
[2017-10-25] MEDS ORDERED: Vancomycin Consult Pharmacy 1 EA OTHER SCH (17:30)
--- NOTE | 2017-10-25 17:37 | HHI.PR ---
cc: Lyndon Mcgrath MD Immediate Post Op Note Procedure Date: Oct 25, 2017 Pre Op Diagnosis: L LE osteomyelitis, PAD Post Op Diagnosis: L LE osteomyelitis, PAD Surgeon: Lyndon Mcgrath Test Case Developer(s): none Procedure: Aortogram w/ L LE angiogram L peroneal AUTISM MOTOR SPECIALIST (2.5-3.0 mm) R DIPPER MACHINE OPERATOR Angioseal Findings: high grade peroneal stenosis, successful AUTISM MOTOR SPECIALIST AT/peroneal runoff to foot Complications: none Specimen(s) removed: none Estimated blood loss: 10mL Anesthesia: MAC Drains: None Fluids: 200mL IVF Patient to: Other (DOCU) Patient Condition: Good Date/Time of Procedure: SEE SURGICAL CARE RECORD Lyndon Mcgrath MD Oct 25, 2017 17:37
[2017-10-25] MEDS ORDERED: CLOPIDOGREL 75 MG TAB PO ONE (17:45)
--- NOTE | 2017-10-25 17:49 | CATHPROC ---
[employer] HIS Report Study Information Study Number Admission Scheduled Start Study Start [id number] Oct 21 2017 9:28PM 10/25/2017 Oct 25 2017 3:47PM [place] Service Cath Endovascular Study Admit Source Facility Department Other [facility] - Stock Broker Supervisor Physician and Clinical Staff Initial MD Mcgrath, Lyndon Assignment Editor Mini Gaspar,NICOLE Other cathlab, cathlab Recorder Oralia Adam,RT(R) TECH2 Scrub Gaston Wall,RT(R) Procedures Performed Procedure Location (Site) Vessel Name Aortic Arch CERTIFIED ALCOHOL COUNSELOR Tib, Post (Left) Popliteal Wire insertion Fem Art (right) Femoral Art Equipment Time Lead Caster Description Size Mfg Part Number Used/Scraped [id number] 15:48 ANGIO-DYNAMICS OMNI FLUSH 65CM CATHETER FR 4 Used *[id number] INTRODUCER SET, 15:48 [employer] FR 5 [id number] *[id number] Used MICROPUNCTURE, STIFFENED CXI-4.0-35-135- 17:14 COOK/STACI CATHETER, FR4 CXI SUPPORT FR 4 Used P-NS-0 *[id number] KCFW-6.0-38-55- 17:14 COOK/STACI SHEATH, FR6 RAABE 55CM FR 6 Used RB WIRE, GUIDE APPROACH SHOE MAKER [id number] 17:14 COOK/STACI 300CM Used MICROWIRE *[id number] 17:16 DAIG/[employer]. [employer] ANGIOSEAL, FR6 VIP FR 6 Used *[id number] BALLOON, AMPHIRION DEEP [id number] 17:20 [employer] 150CM Used 2.5/3.0 X 210 *[id number] 15:48 [employer] INDUSTRIES PACK, CCL CUSTOM * Used *[id number] 15:48 [employer]sm MEDICAL PRESSURE TUBING 48" 48" [id number] 17:14 [employer] MEDICAL WIRE, ESPINOZA 260CM .035 260CM Used *[id number] 15:48 NAMIC TUBING, HIGH PRESSURE 20" 20" Used *[id number] 15:48 [employer] OMNIPAQUE, 300 MG, 150ML 150ML [id number] Used 15:48 [employer] OMNIPAQUE, 300 MG, 50ML 50ML [id number] Used [id number] 15:48 [employer] BLANKET,WARM AIR CCL * Used *[id number] 15:48 TERUMO MEDICAL SHEATH, FR4 TERUMO (10CM) FR 4 Used *[id number] WIRE, ANGLED GLIDE .035 [id number] 15:48 TERUMO MEDICAL/STACI 260CM Used 260CM *[id number] Equipment Model, Serial, Lot Number and Expiration Data Description Model Number Serial Number Lot Number Expiration Date ANGIOSEAL, FR6 VIP [id number] 06-05-2018 BALLOON, AMPHIRION DEEP [id number] 04-05-2019 2.5/3.0 X 210 CATHETER, FR4 CXI SUPPORT [id number] 08-04-2020 SHEATH, FR6 RAABE 55CM [id number] 11-15-2019 WIRE, GUIDE APPROACH SHOE MAKER [id number] 12-21-2021 MICROWIRE History: Allergies Allergy Reaction *MDRO Multi-Drug Resistant ESBL, MRSA Organism Compazine ANXIETY metformin DIARRHEA morphine Dizziness MRI PRECAUTION PACEMAKER IS NOT A BIOTRONIK OR MEDTRONIC 06/15/16 KMD Percocet Nausea/Vomiting Ultram Rash prochlorperazine ANXIETY oxycodone Nausea/Vomiting acetaminophen Nausea/Vomiting tramadol Rash Medication Medication Total Dose (Bolus/Oral) Medication Total Dosage/Unit 1% XYLOCAINE 20 mL FENTANYL 50 mcg HEPARIN 5000 units VERSED 2 mg Medications (Bolus/Oral) Medication Time Given Dosage/Unit Administered By Reason VERSED 10/25/2017 5:01:46 PM 2 mg Mini Gaspar 2 mg VERSED given in lab by Mini Gaspar RN in Right shoulder via Central IV. Ordered by Lyndon Mcgrath. FENTANYL 10/25/2017 5:02:00 PM 50 mcg Mini Gaspar 50 mcg FENTANYL given in lab by Mini Gaspar RN in Right shoulder via Central IV. Ordered by Lyndon Villafuerte. 1% XYLOCAINE 10/25/2017 5:03:16 PM 20 mL Lyndon Mcgrath 20 mL 1% XYLOCAINE given in lab by Lyndon Mcgrath in Right Groin via Subcutaneous. HEPARIN 10/25/2017 5:14:29 PM 5000 units Mini Gaspar 5000 units HEPARIN given in lab by Mini Gaspar RN via Peripheral IV. Medication (Drip) Medication Time Given Dosage/Unit Concentration/Unit Diluent (ml) Solution IV Solutions 10/25/2017 4:43:12 PM 0 mL (IV) NaCl .9 Patient arrived on IV Solutions given by cathlab, cathlab in Right shoulder via Central IV. Pump/Drip Flow = 20 ml/hr using NaCl .9. Ordered by Lyndon Mcgrath. Initial Case Assessment Cardiovascular HR Rhythm NIBP Chest Pain 94 nsr 135/71 0 Edema Present Skin color Skin None Normal Warm Dry Circulatory - Right Pulses Dorsalis Pedis Femoral 1 1 Scale (0,1,2,3,4,d) Circulatory - Left Pulses Dorsalis Pedis Femoral 1 1 Scale (0,1,2,3,4,d) Neurological State Oriented to time-place- Alert Moves all extremities person Respiration - General Respiration Rate SpO2 (%) (B/min) 15 94 Final Case Assessment Cardiovascular HR Rhythm NIBP Chest Pain 86 nsr 123/89 0 Edema Present Skin color Skin None Normal Warm Dry Circulatory - Right Pulses Dorsalis Pedis Femoral 1 1 Scale (0,1,2,3,4,d) Circulatory - Left Pulses Dorsalis Pedis Femoral 1 1 Scale (0,1,2,3,4,d) Neurological State Oriented to time-place- Alert Moves all extremities person Respiration - General Respiration Rate SpO2 (%) O2 (lpm) (B/min) 21 100 2 Chronological Log Time Study Chronological Log 16:43:01 Patient arrived via Bed. 16:43:02 Patient Name, D.O.B, / Armband Verified By R.N. 16:43:02 Consent signed by the physician and the patient and verified by the Stock Broker Supervisor staff. 16:43:03 Pre-op and post- op instructions given; patient acknowledges understanding of instructions. 16:43:03 Verbal Stimulation=2 Physical Stimulation=2 Airway=2 Respiration=2 TOTAL=8. (0=absent, 1=li mited, 2=present) 16:43:04 Presedation assessment performed by Stock Broker Supervisor RN. 16:43:04 Immediate Presedation assesment performed by physician. 16:43:05 Patient has been NPO for More than 6Hrs. 16:43:05 Skin Breakdown- none per patient 16:43:11 Patient Warmer Placed on the Table. 16:43:11 Vane Prominences Protected 16:43:12 A PORT was noted in the Shoulder, Rt.. Grade = ~GRADE~ Patient arrived on IV Solutions given by cathlab, cathlab in Right shoulder via Central IV. Pum p/Drip Flow = 20 ml/hr 16:43:12 using NaCl .9. Ordered by Lyndon Mcgrath. 16:43:13 History and physical on the chart or being dictated. Assessment: Initial Case, HR=94 BPM, Rhythm=nsr, VWKA=689/71 mmhg, Chest Pain=0, Edema=None, Co gen[place]=Normal, Skin = Warm, Dry Right Pulses: Mal Ped=1, Femoral=1 16:53:53 Left Pulses: Mal Ped=1, Femoral=1 Neurological: State=Alert, Ox3, BAILEY Respiration: Resp=15 B/min, SpO2=94 % Vitals capture started with the following parameters, Patient=Adult, Interval=5 min, Initial Pr wvkzes=611 mmHg, 16:53:57 Deflation Rate=5 mmHg, Cuff placed on Right Arm 16:54:16 Reference ECG taken 16:54:26 Bilateral groins prepped with 2% chlorhexidine, and draped after a 3 minute waiting time. 16:54:32 MD paged 16:54:43 HR=91 bpm, YRKU=793/71 mmhg, SpO2=96.0 %, Resp=9 B/min, Pain=0, Jhony=9, Loza=2 16:58:30 MD arrived. 16:58:36 Immediate Presedation assesment performed by physician. 16:59:32 HR=92 bpm, AHCP=000/84 mmhg, SpO2=96.0 %, Resp=14 B/min, Pain=0, Jhony=9, Loza=2 Time Out. Correct patient, correct procedure, correct physician, power injector loaded with con trast with surgical team 16:59:46 present. Time Out Concurred by MD and individual staff in procedure. 17:00:40 The Recorder is being relieved by Oralia Adam, RT(R) TECH2. 17:01:46 2 mg VERSED given in lab by Mini Gaspar, RN in Right shoulder via Central IV. Ordered b Lyndon Gracia. 17:02:00 50 mcg FENTANYL given in lab by Mini Gaspar, RN in Right shoulder via Central IV. Order ed by Lyndon Mcgrath. Time Out. Correct patient, correct procedure, correct physician, power injector loaded with con trast with surgical team 17:02:05 present. Time Out Concurred by MD and individual staff in procedure. 17:03:11 Case Start 17:03:12 Verbal Stimulation=2 Physical Stimulation=2 Airway=2 Respiration=2 TOTAL=8. (0=absent, 1=li mited, 2=present) 17:03:16 20 mL 1% XYLOCAINE given in lab by Lyndon Mcgrath in Right Groin via Subcutaneous. 17:04:24 Access site was Right Femoral Artery. A INTRODUCER SET, MICROPUNCTURE, STIFFENED FR 5 was advanced into the Fem Art (right) using the 17:04:28 Percutaneous technique. A SHEATH, FR4 TERUMO (10CM) FR 4 was exchanged in the Fem Art (right). This was necessary in or travon to 17:04:31 accomodate a larger catheter. 17:04:35 HR=87 bpm, RKPY=546/67 mmhg, SpO2=95 %, Resp=10 B/min, Pain=0, Jhony=9, Loza=2 17:05:59 Through a OMNI FLUSH 65CM CATHETER FR 4, The Abd Aorta (A3) was injected with 10 cc's of co ntrast. 10 for 10 Through a OMNI FLUSH 65CM CATHETER FR 4, The LEFT ILLIAC was injected at 10 ml/sec for a total of 4 cc's of 17:08:31 contrast. 17:09:30 HR=90 bpm, WWVW=677/76 mmhg, SpO2=96.0 %, Resp=22 B/min, Pain=0, Jhony=9, Loza=2 Through a OMNI FLUSH 65CM CATHETER FR 4, The LEFT POPLITEAL was injected at 8 ml/sec for a tota l of 4 cc's of 17:09:43 contrast. Through a OMNI FLUSH 65CM CATHETER FR 4, The LEFT LOWER EXTREMITY was injected at 8 ml/sec for a total of 4 17:10:15 cc's of contrast. 17:14:29 5000 units HEPARIN given in lab by Mini Gaspar RN via Peripheral IV. 17:14:33 HR=89 bpm, ZGNZ=067/77 mmhg, ZxI4=620.0 %, Resp=21 B/min, Pain=0, Jhony=9, Loza=2 17:15:23 Catheter was removed A SHEATH, FR6 RAABE 55CM FR 6 was exchanged in the Fem Art (right). This was necessary in order for catheter 17:15:29 support. A CATHETER, FR4 CXI SUPPORT FR 4 was advanced over a wire. OMNIPAQUE, 300 MG, 50ML 50ML was use d for 17:15:57 injections. 17:17:47 A WIRE, GUIDE APPROACH SHOE MAKER MICROWIRE 300CM was inserted via Fem Art (right). 17:19:17 WIRE ADVANCED THROUGH THE LEFT LOWER EXTREMITY 17:19:38 HR=89 bpm, XAMG=030/68 mmhg, YiN7=559.0 %, Resp=20 B/min, Pain=0, Jhony=9, Loza=2 17:20:36 CXI SUPPORT CATHETER REMOVED A BALLOON, AMPHIRION DEEP 2.5/3.0 X 210 150CM was inserted over WIRE, GUIDE APPROACH SHOE MAKER MICRO WIRE 17:21:48 300CM via the Tib, Post (Left). 17:22:49 In the Tib, Post (Left) a BALLOON, AMPHIRION DEEP 2.5/3.0 X 210 150CM was inflated to 10 a tms for 180 seconds. 17:24:35 HR=89 bpm, YFAM=603/71 mmhg, IbV7=035.0 %, Resp=27 B/min, Pain=0, Jhony=9, Loza=2 17:25:48 Balloon Removed. 17:26:05 LEFT LOWER EXTREMITY WAS INJECTED USING 4CC CONTRAST 17:27:05 The previous wire was exchanged for a WIRE, ESPINOZA 260CM .035 260CM. 17:29:02 ANGIOSEAL, FR6 VIP FR 6 placement in the Fem Art (right) 17:29:38 HR=86 bpm, RMJV=410/67 mmhg, LhX6=411.0 %, Resp=14 B/min, Pain=0, Jhony=9, Loza=2 Assessment: Final Case, HR=86 BPM, Rhythm=nsr, BPCG=489/89 mmhg, Chest Pain=0, Edema=None, Col or=Normal, Skin = Warm, Dry Right Pulses: Mal Ped=1, Femoral=1 17:30:50 Left Pulses: Mal Ped=1, Femoral=1 Neurological: State=Alert, Ox3, BAILEY Respiration: Resp=21 B/min, NjP3=766 %, O2=2 lpm 17:32:35 No case complications noted. 17:32:36 Sterile dressing applied to site 17:32:41 [facility] called. Spoke to NURSE that will be recieving the patient 17:34:37 HR=86 bpm, LSOZ=047/69 mmhg, VrU6=249.0 %, Resp=15 B/min, Pain=0, Jhony=9, Loza=2 17:43:37 Implantable Device card placed in patient's chart. 17:43:40 Patient moved to stretcher 17:44:15 Bedside Report will be given. End Study - Contrast Media Used In Study Contrast Total Opened (mL) Total Used (mL) Total Wasted (mL) Omnipaque 40 40 0 End Study - Radiation Exposure Fluoro Time (minutes) 5.0 End Study - Patient Disposition Complications Transferred To Interventional Outcome No Critical Care Bed successful
[2017-10-25] MEDS: ATORVASTATIN 40 MG TAB PO SCH (20:05)
[2017-10-25] MEDS ORDERED: PHARMACY ORDERED LAB ONE (21:45)
[2017-10-26] VITALS (28 sets, daily range): BP systolic 91–154; BP diastolic 54–73; PULSE 68–96; RESP 17–20; TEMP 97.8–99.5; O2SAT 95–100
[2017-10-26] MEDS: HEPARIN SODIUM - SQ 10,000 UNITS/ML VIAL SQ SCH ×3 (01:59→16:52)
[2017-10-26] MEDS: ACETAMINOPHEN 325 MG TAB PO PRN ×2 (02:07→17:16)
[2017-10-26 05:20] LABS: HEMATOCRIT 23.6 % (35.0-46.0); HEMOGLOBIN 8.1 GM/DL (11.6-15.3); MEAN CELL VOLUME 84.3 FL (80.0-100.0); MEAN CORPUSCULAR HGB CONC 34.3 % (32.0-36.0); MEAN PLATELET VOLUME 7.7 FL (7.0-11.0); PLATELET COUNT 341 TH/MM3 (150-450); RED BLOOD COUNT 2.79 MIL/MM3 (4.00-5.30); RED CELL DISTRIBUTION WIDTH 14.4 % (11.6-17.2); WHITE BLOOD COUNT 6.2 TH/MM3 (4.0-11.0)
[2017-10-26] MEDS: VANCOMYCIN 1,000 MG/NS 250 ML IV SCH ×4 (05:20→15:56)
[2017-10-26 05:36] LABS: BICARBONATE 33.1 MEQ/L (21.0-32.0); CALCIUM 9.6 MG/DL (8.5-10.1); CREATININE 0.48 MG/DL (0.50-1.00)
[2017-10-26 06:02] LABS: FOLATE 17.9 NG/ML (3.1-17.5)
[2017-10-26] MEDS: INSULIN ASPART SUPPLEMENTAL SCALE SQ SCH ×4 (07:50→21:00)
[2017-10-26] MEDS: INSULIN DETEMIR 100 UNITS/ML VIAL SQ SCH ×2 (08:58→21:11)
[2017-10-26] MEDS: GABAPENTIN 400 MG CAP PO SCH ×3 (08:58→17:15)
[2017-10-26] MEDS: FERROUS SULFATE 325 MG (65 MG ELEMENTAL IRON) TAB PO SCH (08:59)
[2017-10-26] MEDS: DOCUSATE SODIUM 50 MG/SENNA 8.6 MG TAB PO SCH ×2 (08:59→21:00)
[2017-10-26] MEDS: SODIUM CHLORIDE 0.9% FLUSH 10 ML FLUSH IV FLUSH SCH ×2 (08:59→21:06)
[2017-10-26] MEDS: MIDODRINE 5 MG TAB PO SCH ×3 (09:00→17:15)
--- NOTE | 2017-10-26 11:15 | PD.VS.PN ---
Subjective POD #: 1 Procedure(s): Aortogram w/ L LE angiogram L peroneal DADO OPERATOR (2.5-3.0 mm) R [employer] Angioseal Subjective/Hospital Course Pt resting alert in NAD Pt denies rest pain LE warm with motor intact Palpable LEFT DP Stable L dry great toe ulceration w/o change Objective Vitals/I&O Date Time Temp Pulse Resp B/P (MAP) Pulse Ox O2 Delivery O2 Flow Rate FiO2 10/26/17 10:00 86 10/26/17 09:45 95 21 10/26/17 09:00 94 10/26/17 08:00 68 10/26/17 07:30 97.8 86 18 101/57 (72) 100 10/26/17 07:30 85 10/26/17 06:03 88 10/26/17 05:02 84 10/26/17 04:00 91 10/26/17 03:00 87 10/26/17 03:00 98.5 92 17 102/56 (71) 97 10/26/17 02:43 17 10/26/17 02:00 92 10/26/17 01:00 92 10/26/17 00:35 96 10/26/17 00:10 99.5 91 17 109/55 (73) 95 10/25/17 23:00 91 10/25/17 22:00 90 10/25/17 20:00 94 10/25/17 20:00 98.3 88 16 92/58 (69) 99 10/25/17 19:00 98.1 88 16 92/58 (69) 99 10/25/17 19:00 89 10/25/17 17:45 97.6 86 16 117/65 (82) 97 10/25/17 17:45 97.6 86 16 117/65 (82) 97 10/25/17 14:12 86/52 (63) 10/25/17 14:10 98.7 97 18 161/78 (105) 97 10/25/17 12:16 91/59 (70) 10/25/17 12:08 98.0 94 18 148/78 (101) 96 10/26/17 10/26/17 10/26/17 07:00 15:00 23:00 Intake Total 480 ml Output Total 600 ml Balance -120 ml Exam: GENERAL: Alert in NAD, GCS15 SKIN: LE warm w/ motor intact MUSCULOSKELETAL: No cyanosis, or edema. Palpable L DP Triphasic LEFT DP/PT Laboratory Laboratory Tests Test 10/25/17 12:43 10/26/17 04:59 White Blood Count 7.0 6.2 Red Blood Count 2.83 2.79 Hemoglobin 8.1 8.1 Hematocrit 24.2 23.6 Mean Corpuscular Volume 85.7 84.3 Mean Corpuscular Hemoglobin 28.8 29.0 Mean Corpuscular Hemoglobin Concent 33.6 34.3 Red Cell Distribution Width 14.3 14.4 Platelet Count 329 341 Mean Platelet Volume 7.7 7.7 Blood Urea Nitrogen 8 8 Creatinine 0.48 0.48 Random Glucose 112 116 Calcium Level 9.5 9.6 Sodium Level 137 136 Potassium Level 4.0 4.1 Chloride Level 100 99 Carbon Dioxide Level 31.4 33.1 Anion Gap 6 4 Estimat Glomerular Filtration Rate 136 136 Vitamin B12 Level 489 Folate 17.9 Date/Time Source Procedure Growth Status 10/21/17 19:45 Blood Peripheral Aerobic Blood Culture - Preliminary NO GROWTH IN 4 DAYS Resulted 10/21/17 19:45 Blood Peripheral Anaerobic Blood Culture - Preliminary NO GROWTH IN 4 DAYS Resulted 10/22/17 06:10 Urine Other Urine Culture - Final NO GROWTH IN 48 HOURS. Complete 10/23/17 12:55 Wound Toe Gram Stain - Final Complete 10/23/17 12:55 Wound Culture - Final S. Aureus Mrsa Escherichia Coli Esbl Positive Anaerobic Gram Neg [place] Complete Assessment and Plan Assessment: (1) PAD (peripheral artery disease) Plan PT S/P Aortogram w/ L LE angiogram/L peroneal DADO OPERATOR (2.5-3.0 mm)/R [employer] Angioseal POD 1 w/ palpable distal LLE pulse Pt w/ non healing LEFT great toe dry ulceration Doing well Plan S/P LLE revascularization- successful w/ strong triphasic distal pulses Discussed and reviewed post operative care and management Pt clear for D/C from a vascular standpoint Arranged for post operative f/u Mickie LOZOYA [facility] [phone] Discharge Planning clear for D/C from a vascular standpoint Mickie Carlton Oct 26, 2017 11:15
[2017-10-26] MEDS: ERTAPENEM INJ 1,000 MG in SODIUM CHLORIDE 0.9% INJ 100 ML IV SCH (12:20)
[2017-10-26] MEDS ORDERED: PHARMACY ORDERED LAB ONE (13:45)
--- NOTE | 2017-10-26 13:48 | HHI.FPPN ---
Subjective Remarks Status post day 1 after balloon angioplasty of the left femoral artery. She tolerated the procedure well and has intact distal pulses in her LLE. She has no complaints this morning. She is sitting up in a chair in no distress. She has no chest pain or shortness of breath. No abdominal pain, nausea, vomiting. No calf tenderness or swelling. Left foot is wrapped. (Lai Ellis MD R3) Objective Vitals Vital Signs Date Time Temp Pulse Resp B/P (MAP) Pulse Ox O2 Delivery O2 Flow Rate FiO2 10/26/17 13:00 88 10/26/17 12:00 90 10/26/17 11:00 90 10/26/17 11:00 98.1 90 20 154/73 (100) 98 10/26/17 10:00 86 10/26/17 09:45 95 21 10/26/17 09:00 94 10/26/17 08:00 68 10/26/17 07:30 97.8 86 18 101/57 (72) 100 10/26/17 07:30 85 10/26/17 06:03 88 10/26/17 05:02 84 10/26/17 04:00 91 10/26/17 03:00 87 10/26/17 03:00 98.5 92 17 102/56 (71) 97 10/26/17 02:43 17 10/26/17 02:00 92 10/26/17 01:00 92 10/26/17 00:35 96 10/26/17 00:10 99.5 91 17 109/55 (73) 95 10/25/17 23:00 91 10/25/17 22:00 90 10/25/17 20:00 94 10/25/17 20:00 98.3 88 16 92/58 (69) 99 10/25/17 19:00 98.1 88 16 92/58 (69) 99 10/25/17 19:00 89 10/25/17 17:45 97.6 86 16 117/65 (82) 97 10/25/17 17:45 97.6 86 16 117/65 (82) 97 10/25/17 14:12 86/52 (63) 10/25/17 14:10 98.7 97 18 161/78 (105) 97 I/O 12/20/17 12/20/17 10/25/17 10/26/17 10/26/17 10/26/17 07:00 15:00 23:00 07:00 15:00 23:00 Intake Total 250 ml 480 ml Output Total 600 ml Balance 250 ml -120 ml Intake Oral 480 ml IV Total 250 ml Output Urine Total 600 ml # Voids 2 # Bowel Movements 2 (Lai Ellis MD R3) Result Diagram: 10/26/1745810/26/17458 Objective Remarks General: Sitting up in chair Skin: has ulcer at base of left great toe covered by eschar, non-stageable. Currently dressed and covered. Dried drainage on bandage. HEENT: Normocephalic, no nasal discharge CV: RRR, no murmurs, rubs, or gallops, normal pulses and capillary refill. Dorsalis pedis and PT pulses intact but weak. Lungs: CTAB Abdomen: Soft, nontender, nondistended, normal bowel sounds Ext: No edema : No CVA tenderness Procedures Angiogram with balloon angioplasty 12/26/16 (Lai Ellis MD R3) A/P Assessment and Plan 52 y/o F presented to the ED after a fall at home with syncope, found to have likely UTI. ESBL e coli UTI in recent history. Also with ulcer with eschar at base of left great toe. Wound culture with MRSA and ESBL E coli Discharge Planning Pending recommendations from podiatry (may need debridement) and infections disease for antibiotics. Will need home health and PT at discharge. (Lai Ellis MD R3) Attending Attestation Patient seen and examined. Case reviewed and discussed with the resident DR Adriana Ellis. Agree with plan of care as discussed with me and documented in the resident note. (Hemant Thao MD) Problem List: (1) Chronic foot ulcer ICD Codes: L97.509 - Chronic foot ulcer Status: Chronic Plan: Left base of great toe ulcer covered by eschar, not stageable due to the eschar. History of polyneuropathy. Arterial segmental Doppler suggesting peripheral arterial disease, worse on left. X-ray of foot with erosive changes. Tagged WBC scan showing no osteomyelitis. Culture of wound growing MRSA and ESBL E Coli. - Podiatry on board. - Infectious disease on board. - Vascular surgery on board. - Angiogram with balloon angioplasty performed 10/25/17. - Continue Plavix 75 mg daily. - Vancomycin to cover MRSA, Ertapenem to cover ESBL E coli. Will need for 3 to 4 weeks if toe not amputated, per ID. - Defer to podiatry on debridement. - Physical therapy on board. - Follow up in wound care center after discharge. - Educate on diabetic control - For peripheral arterial disease, recommend no smoking and a graded exercise routine. (2) Syncope ICD Codes: R55 - Syncope and collapse Status: Acute Plan: Patient with recent episode of syncope with reassuring exam. Orthostatic hypotension versus dysautonomia versus mechanical fall versus TIA/CVA. CT head: No acute intracranial abnormalities. Chest x-ray: No focal consolidation. Hip/ pelvis x-ray: No acute findings. Mild osteoarthritis of the bilateral hips. Orthostatic vital signs: Consistent with orthostatic hypotension - Physical therapy on board. - Fall precautions ordered. - Monitor hydration status. - At discharge, will need home health and physical therapy. - Would benefit from Bahman hose and sitting up/standing slowly when at home. (3) DM (diabetes mellitus), type 2, uncontrolled w/neurologic complication ICD Codes: E11.49 - Type 2 diabetes mellitus with other diabetic neurological complication; E11.65 - Type 2 diabetes mellitus with hyperglycemia Status: Chronic Plan: Patient with history of type 2 diabetes with polyneuropathy, euglycemic. -Continue home gabapentin - Levemir 5 units twice a day -Hold Januvia -Sliding-scale insulin per protocol (4) Thickened endometrium ICD Codes: R93.8 - Abnormal findings on diagnostic imaging of other specified body structures Status: Chronic Plan: Thickened endometrium noted on prior CT abdomen, with recommendation for transvaginal ultrasound for further evaluation as an outpatient. Also with lingular density seen on prior CT abdomen, with recommendation for repeat CT scan at regular intervals to assess stability. (5) Hepatitis C ICD Codes: B19.20 - Unspecified viral hepatitis C without hepatic coma Status: Chronic Plan: Patient with history of hepatitis C, no transaminitis. (6) Nutrition, metabolism, and development symptoms ICD Codes: R63.8 - Other symptoms and signs concerning food and fluid intake Status: Acute Plan: Fluids: PO Electrolytes: Monitor and replace as needed Nutrition: Diabetic diet (7) No contraindication to deep vein thrombosis (DVT) prophylaxis ICD Codes: Z78.9 - Other specified health status Status: Acute Plan: -Heparin 5000 units -SCDs (Young,Lai L MD R3) Problem Qualifiers (1) Chronic foot ulcer: Qualified Codes: L97.522 - Non-pressure chronic ulcer of other part of left foot with fat layer exposed (2) Hepatitis C: Lai Ellis MD R3 Oct 26, 2017 13:48 Hemant Thao MD Oct 27, 2017 16:30
--- NOTE | 2017-10-26 14:51 | HHI.IDPN ---
Note Infectious Disease Note Patient says she feels cold but not having chills. Post peroneal REGISTER [employer]. Awake and alert. Afebrile. Ceretec scan does not confirm osteo. The patient was noted to have had a urinary tract infection with positive culture on 10/18 which grew out ESBL E. coli. PAST MEDICAL HISTORY: 1. Recurrent urinary tract infection. The patient has had several urinary tract infections due to E. coli ESBL-positive. 2. Hyperlipidemia. 3. Diabetes mellitus. 4. 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 The patient is status post chemotherapy and radiation. 5. Port placement. 6. Pacemaker. 7. Peripheral vascular disease. 8. History of pancreatitis. 9. History of fifth toe amputation for osteomyelitis. 10. Orthostatic hypotension. 11. Hepatitis C. 12. Asthma. 13. Cholecystectomy. 14. Appendectomy. 15. Tonsillectomy. ALLERGIES: 1. ACETAMINOPHEN. 2. METFORMIN. 3. MORPHINE. 4. OXYCODONE. 5. PROCHLORPERAZINE. 6. TRAMADOL. ANTIBIOTICS: 1. Ertapenem. 2. Vancomycin. OBJECTIVE: Vital Signs Date Time Temp Pulse Resp B/P (MAP) Pulse Ox O2 Delivery O2 Flow Rate FiO2 10/26/17 14:00 74 10/26/17 13:00 88 10/26/17 12:00 90 10/26/17 11:00 90 10/26/17 11:00 98.1 90 20 154/73 (100) 98 10/26/17 10:00 86 10/26/17 09:45 95 21 10/26/17 09:00 94 10/26/17 08:00 68 10/26/17 07:30 97.8 86 18 101/57 (72) 100 10/26/17 07:30 85 10/26/17 06:03 88 10/26/17 05:02 84 10/26/17 04:00 91 10/26/17 03:00 87 10/26/17 03:00 98.5 92 17 102/56 (71) 97 10/26/17 02:43 17 10/26/17 02:00 92 10/26/17 01:00 92 10/26/17 00:35 96 10/26/17 00:10 99.5 91 17 109/55 (73) 95 10/25/17 23:00 91 10/25/17 22:00 90 10/25/17 20:00 94 10/25/17 20:00 98.3 88 16 92/58 (69) 99 10/25/17 19:00 98.1 88 16 92/58 (69) 99 10/25/17 19:00 89 10/25/17 17:45 97.6 86 16 117/65 (82) 97 10/25/17 17:45 97.6 86 16 117/65 (82) 97 Laboratory Tests Test 10/25/17 12:43 10/26/17 04:59 White Blood Count 7.0 TH/MM3 6.2 TH/MM3 Red Blood Count 2.83 MIL/MM3 2.79 MIL/MM3 Hemoglobin 8.1 GM/DL 8.1 GM/DL Hematocrit 24.2 % 23.6 % Mean Corpuscular Volume 85.7 FL 84.3 FL Mean Corpuscular Hemoglobin 28.8 PG 29.0 PG Mean Corpuscular Hemoglobin Concent 33.6 % 34.3 % Red Cell Distribution Width 14.3 % 14.4 % Platelet Count 329 TH/MM3 341 TH/MM3 Mean Platelet Volume 7.7 FL 7.7 FL Laboratory Tests Test 10/25/17 12:43 10/26/17 04:59 Blood Urea Nitrogen 8 MG/DL 8 MG/DL Creatinine 0.48 MG/DL 0.48 MG/DL Random Glucose 112 MG/DL 116 MG/DL Calcium Level 9.5 MG/DL 9.6 MG/DL Sodium Level 137 MEQ/L 136 MEQ/L Potassium Level 4.0 MEQ/L 4.1 MEQ/L Chloride Level 100 MEQ/L 99 MEQ/L Carbon Dioxide Level 31.4 MEQ/L 33.1 MEQ/L Anion Gap 6 MEQ/L 4 MEQ/L Estimat Glomerular Filtration Rate 136 ML/MIN 136 ML/MIN Vitamin B12 Level 489 PG/ML Folate 17.9 NG/ML PHYSICAL EXAMINATION: GENERAL: No acute distress. She is awake and alert and oriented. HEAD, EYES, EARS, NOSE, THROAT: The head is atraumatic. Extraocular movements grossly intact. Pupils are reactive to light. No icterus. Oropharynx with moist mucosa without lesions. NECK: The neck is supple without adenopathy. LUNGS: Clear with decreased breath sounds. HEART: Regular S1 and S2. No murmurs. ABDOMEN: Bowel sounds present, soft, nontender. EXTREMITIES: No clubbing or cyanosis or edema. R great toe has erythema and an ulceration at the lateral aspect. (+) purulent drainage. SKIN: No rash. NEUROLOGIC: Nonfocal. IMPRESSION: 1. Recurrent urinary tract infection. 2. Positive urine culture with E. coli ESBL. Repeat urine culture negative. 3. wound infection left great toe MRSA/ESBL e. coli. 4. PVD. RECOMMENDATIONS: 1. Continue Ertapenem. 2. Continue Vancomycin for MRSA. 3. Plan on 3 - 4 weeks of vancomycin/Ertapenem if the involved toe is not surgically amputated. Mo Valencia MD Oct 26, 2017 14:51
[2017-10-26] MEDS: ATORVASTATIN 40 MG TAB PO SCH (21:06)
[2017-10-27] VITALS (28 sets, daily range): BP systolic 87–110; BP diastolic 50–55; PULSE 79–98; RESP 16–20; TEMP 97.3–99.5; O2SAT 94–100
[2017-10-27] MEDS: VANCOMYCIN INJ 800 MG in SODIUM CHLOR 0.9% 250 ML INJ 250 ML IV SCH ×4 (00:07→23:51)
[2017-10-27] MEDS: HEPARIN SODIUM - SQ 10,000 UNITS/ML VIAL SQ SCH ×4 (00:11→23:51)
[2017-10-27 07:00] LABS: HEMOGLOBIN 8.3 GM/DL (11.6-15.3); MEAN CELL VOLUME 84.8 FL (80.0-100.0); MEAN CORPUSCULAR HEMOGLOBIN 28.1 PG (27.0-34.0); MEAN CORPUSCULAR HGB CONC 33.2 % (32.0-36.0); MEAN PLATELET VOLUME 7.7 FL (7.0-11.0); PLATELET COUNT 394 TH/MM3 (150-450); RED BLOOD COUNT 2.95 MIL/MM3 (4.00-5.30); RED CELL DISTRIBUTION WIDTH 14.3 % (11.6-17.2); WHITE BLOOD COUNT 7.2 TH/MM3 (4.0-11.0)
[2017-10-27] MEDS: MIDODRINE 5 MG TAB PO SCH ×3 (07:22→16:58)
[2017-10-27 07:25] LABS: BICARBONATE 35.2 MEQ/L (21.0-32.0); CALCIUM 9.6 MG/DL (8.5-10.1); CREATININE 0.5 MG/DL (0.50-1.00)
[2017-10-27] MEDS: INSULIN ASPART SUPPLEMENTAL SCALE SQ SCH ×4 (07:46→21:40)
[2017-10-27] MEDS ORDERED: SODIUM CHLORID 0.9% 500 ML INJ 500 ML IV ONE (08:00)
[2017-10-27] MEDS: INSULIN DETEMIR 100 UNITS/ML VIAL SQ SCH ×2 (08:08→21:40)
[2017-10-27] MEDS: GABAPENTIN 400 MG CAP PO SCH ×3 (08:09→16:58)
[2017-10-27] MEDS: FERROUS SULFATE 325 MG (65 MG ELEMENTAL IRON) TAB PO SCH (08:09)
[2017-10-27] MEDS: DOCUSATE SODIUM 50 MG/SENNA 8.6 MG TAB PO SCH ×2 (08:10→21:00)
[2017-10-27] MEDS: CLOPIDOGREL 75 MG TAB PO SCH (08:10)
[2017-10-27] MEDS: SODIUM CHLORIDE 0.9% FLUSH 10 ML FLUSH IV FLUSH SCH ×2 (08:10→21:00)
--- NOTE | 2017-10-27 11:07 | PD.POD ---
Subjective Podiatric Problems Patient with ulceration and necrotic eschar of the left first MPJ Pain scale used: 0-10 numeric scale Pain score: 0 Remarks 52-year-old female with necrotic wound of the left first MPJ. Patient underwent endovascular intervention by Dr. Mcgrath. [facility] white blood cell scan shows no osteomyelitis. Patient cleared to go to rehabilitation by vascular surgery. Past Med/Surg/Social History Past Medical History HEENT: REPORTS HX OF: Other HEENT history Endocrine: REPORTS HX OF: Diabetes mellitus Respiratory: REPORTS HX OF: Asthma Cardiovascular: REPORTS HX OF: Hypertension, Peripheral vascular dz Gastrointestinal: REPORTS HX OF: Pancreatitis, Other GI history Genitourinary: REPORTS HX OF: Herpes genitalis, Past UTI Musculoskeletal: REPORTS HX OF: Other musculoskeletal hx (osteomyelitis of the fifth toe right foot) Cancer/Hematology: REPORTS HX OF: Oral cancer Infectious disease: REPORTS HX OF: Hepatitis (Hep C), MRSA, Other inf disease history Neurologic: REPORTS HX OF: Peripheral neuropathy Disabilities: REPORTS HX OF: Vision deficit Past Surgical History HEENT: REPORTS HX OF: Dental surgery Cardiovascular: REPORTS HX OF: Coronary stent (Left leg), Pacemaker, Other cardiac surgery (Rigth chest port) Gastrointestinal: REPORTS HX OF: Appendectomy, DENIES HX OF: Colectomy, total Gynecologic: DENIES HX OF: Hysterectomy Musculoskeletal: REPORTS HX OF: Other musculoskeletal srg (fifth ray amputation right foot) Breast: REPORTS HX OF: Mastectomy, bilateral, Mastectomy, left, Mastectomy, right Social History Smoking Status: Never Smoker Review of Systems Notes Endovascular intervention performed by Dr. Mcgrath yesterday Objective Vital Signs Vital Signs Date Time Temp Pulse Resp B/P (MAP) Pulse Ox O2 Delivery O2 Flow Rate FiO2 10/27/17 10:00 94 10/27/17 09:00 84 10/27/17 08:00 90 10/27/17 07:00 98 10/27/17 07:00 99.5 82 20 87/52 (64) 96 10/27/17 06:09 87 10/27/17 05:00 86 10/27/17 04:00 84 10/27/17 03:09 88 10/27/17 03:00 97.3 89 17 109/53 (71) 94 10/27/17 02:01 87 10/27/17 01:01 85 10/27/17 00:00 90 10/26/17 23:00 97.9 88 17 107/55 (72) 96 10/26/17 23:00 89 10/26/17 22:00 94 10/26/17 21:00 88 10/26/17 20:05 97 10/26/17 20:00 70 10/26/17 19:00 99.5 95 17 91/54 (66) 96 10/26/17 19:00 71 10/26/17 18:00 94 10/26/17 17:00 92 10/26/17 16:00 92 10/26/17 15:00 98.6 96 18 106/64 (78) 96 10/26/17 15:00 89 10/26/17 14:00 74 10/26/17 13:00 88 10/26/17 12:00 90 Coded Allergies: tramadol (Verified Allergy, Intermediate, Rash, 10/19/17) MRI PRECAUTION (Verified Adverse Reaction, Severe, PACEMAKER IS NOT A BIOTRONIK OR MEDTRONIC 06/15/16 KMD, 10/19/17) PACEMAKER IS NOT A BIOTRONIK OR MEDTRONIC CONDITIONAL PACEMAKER. CALLED BOTH COMPANIES TO CONFIRM. acetaminophen (Verified Adverse Reaction, Severe, Nausea/Vomiting, ) metformin (Verified Adverse Reaction, Severe, DIARRHEA, 10/19/17) morphine (Verified Adverse Reaction, Severe, Dizziness, 10/19/17) oxycodone (Verified Adverse Reaction, Severe, Nausea/Vomiting, 10/19/17) prochlorperazine (Verified Adverse Reaction, Severe, ANXIETY, 10/19/17) ANXIETY Medications and IVs Current Medications Sodium Chloride (NS Flush) 2 ml UNSCH PRN IVF FLUSH AFTER USING IV ACCESS; Start 10/21/17 at 19:15; Stop 10/21/17 at 23:22; Status DC Sodium Chloride 1,000 ml @ 1,000 mls/hr Q1H ONCE IV Last administered on 10/21t 19:48; Start 10/21/17 at 19:14; Stop 10/21/17 at 20:15; Status DC Nitrofurantoin Macrocrystals (Macrobid) 100 mg ONCE ONCE PO ; Start 10/21/17 at 19:15; Stop 10/21/17 at 19:24; Status DC Ampicillin Sodium/ Sulbactam Sodium 3 gm/Sodium Chloride 100 ml @ 200 mls/hr ONCE ONCE IV Last administered on 10/21/17 20:39; Start 10/21/17 at 19:30; Stop 10/21/17 at 19:59; Status DC Sodium Chloride 1,000 ml @ 100 mls/hr Q10H IV Last administered on 10/23/17 08:15; Start 10/21/17 at 22:27; Stop 10/23/17 at 12:04; Status DC Sodium Chloride (NS Flush) 2 ml UNSCH PRN IV FLUSH FLUSH AFTER USING IV ACCESS ; Start 10/21/17 at 22:30 Sodium Chloride (NS Flush) 2 ml BID IV FLUSH Last administered on 10/26/17 21 :06; Start 10/22/17 at 09:00 Acetaminophen (Tylenol) 650 mg Q4H PRN PO TEMP > 100.4 Last administered on 17:16; Start 10/21/17 at 22:30 Ondansetron HCl (Zofran Inj) 4 mg Q6H PRN IVP NAUSEA OR VOMITING; Start at 22:30 Heparin Sodium (Porcine) (Heparin Inj) 5,000 units Q8H SQ Last administered on 10/27/17 08:09; Start 10/22/17 at 00:00 Naloxone HCl (Narcan Inj) 0.4 mg UNSCH PRN IV PUSH SEE LABEL COMMENTS; Start 10/21/17 at 22:30 Senna/Docusate Sodium (Tamiko-Colace) 1 tab BID PO Last administered on 00:02; Start 10/22/17 at 09:00 Magnesium Hydroxide (Milk Of Magnesia Liq) 30 ml Q12H PRN PO Mild constipation ; Start 10/21/17 at 22:30 Sennosides (Senokot) 17.2 mg Q12H PRN PO Moderate constipation; Start at 22:30 Bisacodyl (Dulcolax Supp) 10 mg DAILY PRN RECTAL SEVERE CONSITIPATION; Start 10/21/17 at 22:30 Lactulose (Lactulose Liq) 30 ml DAILY PRN PO SEVERE CONSITIPATION; Start 10/21 at 22:30 Piperacillin Sod/ Tazobactam Sod 50 ml @ 100 mls/hr Q6H IV Last administered on 10/22/17 11:13; Start 10/22/17 at 00:00; Stop 10/22/17 at 13:34; Status DC Atorvastatin Calcium (Lipitor) 40 mg HS PO Last administered on 10/26/17 21: 06; Start 10/22/17 at 21:00 Gabapentin (Neurontin) 400 mg TID PO Last administered on 10/27/17 08:09; Start 10/22/17 at 09:00 Midodrine (Proamatine) 5 mg TID PO Last administered on 10/27/17 07:22; Start 10/22/17 at 09:00 Dextrose (D50w (Vial) Inj) 50 ml UNSCH PRN IV PUSH HYPOGLYCEMIA-SEE COMMENTS; Start 10/22/17 at 03:00 Glucagon (Glucagon Inj) 1 mg UNSCH PRN OTHER HYPOGLYCEMIA-SEE COMMENTS; Start 10/22/17 at 03:00 Insulin Aspart (NovoLOG SUPPLEMENTAL SCALE) 1 ACHS SLIDING SCALE SQ Last administered on 10/26/17 17:00; Start 10/22/17 at 08:00 Insulin Detemir (Levemir Inj) 5 units Q12HR SQ Last administered on 10/27/17 08:08; Start 10/22/17 at 21:00 Miscellaneous Medication (ASP Crit: Doc ESBL, MDR A baumannii or P aer) 1 UNSCH X1 PRN .XX PHARMACY DOCUMENTATION; Start 10/22/17 at 13:45; Stop 10/23/17 at 13:44; Status DC Miscellaneous Medication ([facility] Information) 1 UNSCH X1 PRN XX PHARMACY DOCUMENTATION; Start 10/22/17 at 13:45; Stop 10/23/17 at 13:44; Status DC Ertapenem 1000 mg/ Sodium Chloride 100 ml @ 200 mls/hr Q24H IV Last administered on 10/23/17 15:19; Start 10/22/17 at 15:00; Stop 10/24/17 at 15 :00; Status DC Miscellaneous Medication ([facility] Pharm[facility] Information) 1 UNSCH X1 PRN XX PHARMACY DOCUMENTATION; Start 10/22/17 at 13:45; Stop 10/23/17 at 13:44; Status DC Vancomycin HCl 1500 mg/Sodium Chloride 515 ml @ 257.5 mls/ hr Q12H IV ; Start 10/24/17 at 15:00; Status UNV Pharmacy Profile Note 0 ml @ 0 mls/hr UNSCH OTHER ; Start 10/24/17 at 15:00 Vancomycin HCl 1500 mg/Sodium Chloride 515 ml @ 257.5 mls/ hr ONCE ONCE IV Last administered on 10/24/17 18:34; Start 10/24/17 at 18:00; Stop 10/24/17 at 19:59; Status DC Vancomycin HCl 1000 mg/Sodium Chloride 250 ml @ 250 mls/hr Q8H IV Last administered on 10/26/17 15:56; Start 10/25/17 at 06:00; Stop 10/26/17 at 20 :21; Status DC Miscellaneous Information SPECIFIC LAB TO BE AGUSTIN... ONCE ONCE .XX ; Start at 21:45; Stop 10/25/17 at 21:46; Status DC Ertapenem (INVanz INJ) 1,000 mg DAILY IM ; Start 10/25/17 at 15:00; Stop 10/25 at 15:00; Status DC Ferrous Sulfate (Ferrous Sulfate) 325 mg DAILY PO Last administered on 08:09; Start 10/25/17 at 11:15 Miscellaneous Medication (ASP Crit: Doc ESBL, MDR A baumannii or P aer) 1 UNSCH X1 PRN .XX PHARMACY DOCUMENTATION; Start 10/25/17 at 11:45; Stop 10/26/17 at 11:44; Status DC Miscellaneous Medication ([facility] Information) 1 UNSCH X1 PRN XX PHARMACY DOCUMENTATION; Start 10/25/17 at 11:45; Stop 10/26/17 at 11:44; Status DC Ertapenem 1000 mg/ Sodium Chloride 100 ml @ 200 mls/hr Q24H IV Last administered on 10/26/17 12:20; Start 10/25/17 at 12:00 Heparin Sodium/ Sodium Chloride 1,000 ml @ As Directed STK-MED ONCE .ROUTE Last administered on 10/25/17 12:07; Start 10/25/17 at 12:07; Stop 10/25/17 at 12:08; Status DC Heparin Sodium (Porcine) (Heparin Inj) 10,000 units STK-MED ONCE .ROUTE Last administered on 10/25/17 17:14; Start 10/25/17 at 12:09; Stop 10/25/17 at 12 :10; Status DC Fentanyl Citrate (fentaNYL INJ) 100 mcg STK-MED ONCE .ROUTE Last administered on 10/25/17 17:02; Start 10/25/17 at 12:09; Stop 10/25/17 at 12:10; Status DC Midazolam HCl (Versed Inj) 5 mg STK-MED ONCE .ROUTE Last administered on 17:01; Start 10/25/17 at 12:09; Stop 10/25/17 at 12:10; Status DC Pharmacy Profile Note 0 ml @ 0 mls/hr UNSCH OTHER ; Start 10/25/17 at 17:30; Stop 10/25/17 at 17:52; Status DC Clopidogrel Bisulfate (Plavix) 150 mg ONCE ONCE PO Last administered on 20:34; Start 10/25/17 at 17:45; Stop 10/25/17 at 17:51; Status DC Clopidogrel Bisulfate (Plavix) 75 mg DAILY PO Last administered on 10/27/17 08:10; Start 10/27/17 at 09:00 Miscellaneous Information SPECIFIC LAB TO BE DRAWN:VANCOMYCIN TROUGH DATE TO... ONCE ONCE .XX Last administered on 10/26/17 13:45; Start 10/26/17 at 13:45 ; Stop 10/26/17 at 13:46; Status DC Vancomycin HCl 800 mg/Sodium Chloride 258 ml @ 250 mls/hr Q8H IV Last administered on 10/27/17 08:10; Start 10/27/17 at 00:00 Miscellaneous Information SPECIFIC LAB TO BE AGUSTIN... ONCE ONCE .XX ; Start at 23:45; Stop 10/27/17 at 23:46 Sodium Chloride 500 ml @ 500 mls/hr BOLUS ONCE IV Last administered on 07:23; Start 10/27/17 at 08:00; Stop 10/27/17 at 08:59; Status DC Iohexol (OMNIPAQUE 350 INJ (Quantometer Operator)) 50 ml STK-MED ONCE OTHER ; Start at 10:39; Stop 10/27/17 at 10:40; Status DC Collagenase (Santyl Oint) 1 applic DAILY TOPICAL ; Start 10/27/17 at 12:00 Other Results Laboratory Tests Test 10/25/17 12:43 10/26/17 04:59 10/27/17 06:04 White Blood Count 7.0 TH/MM3 6.2 TH/MM3 7.2 TH/MM3 Red Blood Count 2.83 MIL/MM3 2.79 MIL/MM3 2.95 MIL/MM3 Hemoglobin 8.1 GM/DL 8.1 GM/DL 8.3 GM/DL Hematocrit 24.2 % 23.6 % 25.0 % Mean Corpuscular Volume 85.7 FL 84.3 FL 84.8 FL Mean Corpuscular Hemoglobin 28.8 PG 29.0 PG 28.1 PG Mean Corpuscular Hemoglobin Concent 33.6 % 34.3 % 33.2 % Red Cell Distribution Width 14.3 % 14.4 % 14.3 % Platelet Count 329 TH/MM3 341 TH/MM3 394 TH/MM3 Mean Platelet Volume 7.7 FL 7.7 FL 7.7 FL Laboratory Tests Test 10/25/17 12:43 10/26/17 04:59 10/27/17 06:04 Blood Urea Nitrogen 8 MG/DL 8 MG/DL 9 MG/DL Creatinine 0.48 MG/DL 0.48 MG/DL 0.50 MG/DL Random Glucose 112 MG/DL 116 MG/DL 94 MG/DL Calcium Level 9.5 MG/DL 9.6 MG/DL 9.6 MG/DL Sodium Level 137 MEQ/L 136 MEQ/L 138 MEQ/L Potassium Level 4.0 MEQ/L 4.1 MEQ/L 4.4 MEQ/L Chloride Level 100 MEQ/L 99 MEQ/L 99 MEQ/L Carbon Dioxide Level 31.4 MEQ/L 33.1 MEQ/L 35.2 MEQ/L Anion Gap 6 MEQ/L 4 MEQ/L 4 MEQ/L Estimat Glomerular Filtration Rate 136 ML/MIN 136 ML/MIN 130 ML/MIN Vitamin B12 Level 489 PG/ML Folate 17.9 NG/ML Exam-Podiatry Constitutional General appearance: comfortable Nutritional status: normal Orientation: alert and oriented x3 Dermatological Exam Skin Temp - Right: Within Normal Limits Skin Texture - Right: Within Normal Limits Skin Elasticity - Right: Within Normal Limits Skin Tugor - Right: Within Normal Limits Hair Growth - Right: Within Normal Limits Pigmentation - Right: Within Normal Limits Skin Temp - Left: Within Normal Limits Skin Texture - Left: Within Normal Limits Skin Elasticity - Left: Within Normal Limits Skin Tugor - Left: Within Normal Limits Hair Growth - Left: Within Normal Limits Pigmentation - Left: Within Normal Limits Ulcers: Location/Measurements Ulceration of the left first MPJ was cleaned up bedside. She still has a necrotic eschar plantarly to the first met of the left foot. Vascular/Lymphatic Exam R Dorsails Pedis: Doppler L Dorsails Pedis: Doppler R Posterior Tibial: Doppler L Posterior Tibial: Doppler Muscle Strength Dorsiflexion (Right): Normal Plantarflexion (Right): Normal Inversion (Right): Normal Eversion (Right): Normal Digital (Right): Normal Dorsiflexion (Left): Normal Plantarflexion (Left): Normal Inversion (Left): Normal Eversion (Left): Normal Digital (Left): Normal Foot Range of Motion Dorsiflexion (Right): Normal Plantarflexion (Right): Normal Inversion (Right): Normal Eversion (Right): Normal Digital (Right): Normal Dorsiflexion (Left): Normal Plantarflexion (Left): Normal Inversion (Left): Normal Eversion (Left): Normal Digital (Left): Normal Assessment & Plan Diagnosis: (1) DM (diabetes mellitus) ICD Codes: E11.9 - Type 2 diabetes mellitus without complications Status: Chronic (2) Chronic foot ulcer ICD Codes: L97.509 - Chronic foot ulcer Status: Chronic (3) Methicillin resistant Staphylococcus aureus infection ICD Codes: A49.02 - Methicillin resistant Staphylococcus aureus infection Status: Acute A/P PLAN: Start Santyl ointment daily to plantar wound of left foot. It patient goes to [facility] facility she can have the Santyl applied there. If she goes home she will need home health care. She can follow-up with me in the wound center after discharge. Okay to discharge from a podiatry standpoint when cleared by medicine. Problem Qualifiers (1) DM (diabetes mellitus): Qualified Codes: E11.621 - Type 2 diabetes mellitus with foot ulcer; L97.509 - Non-pressure chronic ulcer of other part of unspecified foot with unspecified severity; Z79.4 - [facility] (current) use of insulin (2) Chronic foot ulcer: Qualified Codes: L97.522 - Non-pressure chronic ulcer of other part of left foot with fat layer exposed Luis Gutierrez DPM Oct 27, 2017 11:07
--- NOTE | 2017-10-27 11:10 | HHI.DCPOC ---
Discharge Care Plan Diagnosis: (1) Diabetic foot infection (2) Syncope (3) Diabetic foot ulcer (4) Cellulitis of great toe (5) Diabetic foot infection (6) DM (diabetes mellitus) (7) Amputated toe of right foot Goals to Promote Your Health * To prevent worsening of your condition and complications * To maintain your health at the optimal level Directions to Meet Your Goals Take your medications as prescribed Follow your dietary instruction Follow activity as directed Keep your appointments as scheduled Take your immunizations and boosters as scheduled If your symptoms worsen call your PCP, if no PCP go to Urgent Care Center or Emergency Room Smoking is Dangerous to Your Health. Avoid second hand smoke Call the 24-hour hour crisis hotline for domestic abuse at Lai Ellis MD R3 Oct 27, 2017 11:10
[2017-10-27] MEDS: SODIUM CHLOR 0.9% 1000 ML INJ 1,000 ML IV SCH ×2 (11:22→21:39)
[2017-10-27] MEDS: ERTAPENEM INJ 1,000 MG in SODIUM CHLORIDE 0.9% INJ 100 ML IV SCH (11:23)
[2017-10-27] MEDS: COLLAGENASE OINT 30 GM TUBE TOPICAL SCH (12:00)
--- NOTE | 2017-10-27 12:08 | HHI.FPPN ---
Subjective Remarks Patient seen this morning, lying in bed and in no distress. She had some borderline low blood pressures overnight and was treated with a normal saline bolus and midodrine. This morning maintenance fluids started to assist her blood pressure. She remains afebrile. White count remains normal. She has no complaints about her foot. She has no chest pain, shortness of breath, abdominal pain, nausea, vomiting, or diarrhea. (Lai Ellis MD R3) Objective Vitals Vital Signs Date Time Temp Pulse Resp B/P (MAP) Pulse Ox O2 Delivery O2 Flow Rate FiO2 10/27/17 11:00 99.1 92 16 97/50 (66) 98 10/27/17 11:00 90 10/27/17 10:00 94 10/27/17 09:25 96 21 10/27/17 09:00 84 10/27/17 08:00 90 10/27/17 07:00 98 10/27/17 07:00 99.5 82 20 87/52 (64) 96 10/27/17 06:09 87 10/27/17 05:00 86 10/27/17 04:00 84 10/27/17 03:09 88 10/27/17 03:00 97.3 89 17 109/53 (71) 94 10/27/17 02:01 87 10/27/17 01:01 85 10/27/17 00:00 90 10/26/17 23:00 97.9 88 17 107/55 (72) 96 10/26/17 23:00 89 10/26/17 22:00 94 10/26/17 21:00 88 10/26/17 20:05 97 10/26/17 20:00 70 10/26/17 19:00 99.5 95 17 91/54 (66) 96 10/26/17 19:00 71 10/26/17 18:00 94 10/26/17 17:00 92 10/26/17 16:00 92 10/26/17 15:00 98.6 96 18 106/64 (78) 96 10/26/17 15:00 89 10/26/17 14:00 74 10/26/17 13:00 88 I/O 12/21/17 12/21/17 12/21/17 12/22/17 12/22/17 12/22/17 07:00 15:00 23:00 07:00 15:00 23:00 Intake Total 480 ml 720 ml 730 ml 750 ml Output Total 600 ml 450 ml 750 ml Balance -120 ml 270 ml -20 ml 750 ml Intake Oral 480 ml 720 ml 480 ml IV Total 250 ml 750 ml Output Urine Total 600 ml 450 ml 750 ml # Voids 2 3 # Bowel Movements 2 1 (Lai Ellis MD R3) Result Diagram: 10/27/1704 10/27/1704 Objective Remarks General: Lyingi n bed, no distress. Skin: has ulcer at base of left great toe covered by eschar, non-stageable. Slightly expanded from before. Currently dressed and covered, removed for inspection. Dried drainage on bandage. HEENT: Normocephalic, no nasal discharge CV: RRR, no murmurs, rubs, or gallops, normal pulses and capillary refill. Dorsalis pedis and PT pulses intact but weak. Lungs: CTAB Abdomen: Soft, nontender, nondistended, normal bowel sounds Ext: No edema : No CVA tenderness Procedures Angiogram with balloon angioplasty 12/26/16 (Lai Ellis MD R3) A/P Assessment and Plan 52 y/o F presented to the ED after a fall at home with syncope. ESBL e coli UTI in recent history. Also with ulcer with eschar at base of left great toe. Wound culture with MRSA and ESBL E coli. Will need correction IV antibiotics. She is status post angioplasty of her left leg for peripheral artery disease. She also has diabetes. Discharge Planning Pending recommendations from from infectious disease for antibiotics. Will need longterm facility with rehabilitation. Working with case management to arrange. 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 (Lai Ellis MD R3) Attending Attestation Patient seen and examined. Case reviewed and discussed with the resident DR Adriana Ellis. Agree with plan of care as discussed with me and documented in the resident note. (Hemant Thao MD) Problem List: (1) Chronic foot ulcer ICD Codes: L97.509 - Chronic foot ulcer Status: Chronic Plan: Left base of great toe ulcer covered by eschar, not stageable due to the eschar. History of polyneuropathy. Arterial segmental Doppler suggesting peripheral arterial disease, worse on left. X-ray of foot with erosive changes. Tagged WBC scan showing no osteomyelitis. Culture of wound growing MRSA and ESBL E Coli and gram negative rods.. - Podiatry on board. - Infectious disease on board. - Vascular surgery on board. - Angiogram with balloon angioplasty performed 10/25/17. - Continue Plavix 75 mg daily. - Vancomycin to cover MRSA, Ertapenem to cover ESBL E coli. Will need for 3 to 4 weeks, likely needs PICC. - Physical therapy on board. - Follow up in wound care center after discharge. - Educate on diabetic control - For peripheral arterial disease, recommend no smoking and a graded exercise routine. - Will likely go to SNF and receive rehab. - Per podiatry: Santyl ointment daily to plantar wound of left foot. Follow up in wound center, likely get debridement at that time. (2) Syncope ICD Codes: R55 - Syncope and collapse Status: Acute Plan: Patient with recent episode of syncope with reassuring exam. Orthostatic hypotension versus dysautonomia versus mechanical fall versus TIA/CVA. CT head: No acute intracranial abnormalities. Chest x-ray: No focal consolidation. Hip/ pelvis x-ray: No acute findings. Mild osteoarthritis of the bilateral hips. Orthostatic vital signs: Consistent with orthostatic hypotension - Physical therapy on board. - Fall precautions ordered. - Monitor hydration status. - At discharge, will need home health and physical therapy. - Counseled on sitting up/standing slowly when at home. - Started on Midodrine 5 mg tid. (3) DM (diabetes mellitus), type 2, uncontrolled w/neurologic complication ICD Codes: E11.49 - Type 2 diabetes mellitus with other diabetic neurological complication; E11.65 - Type 2 diabetes mellitus with hyperglycemia Status: Chronic Plan: Patient with history of type 2 diabetes with polyneuropathy, euglycemic. -Continue home gabapentin - Levemir 5 units twice a day -Hold Januvia -Sliding-scale insulin per protocol (4) Thickened endometrium ICD Codes: R93.8 - Abnormal findings on diagnostic imaging of other specified body structures Status: Chronic Plan: Thickened endometrium noted on prior CT abdomen, with recommendation for transvaginal ultrasound for further evaluation as an outpatient. Also with lingular density seen on prior CT abdomen, with recommendation for repeat CT scan at regular intervals to assess stability. (5) Hepatitis C ICD Codes: B19.20 - Unspecified viral hepatitis C without hepatic coma Status: Chronic Plan: Patient with history of hepatitis C, no transaminitis. (6) Nutrition, metabolism, and development symptoms ICD Codes: R63.8 - Other symptoms and signs concerning food and fluid intake Status: Acute Plan: Fluids: PO Electrolytes: Monitor and replace as needed Nutrition: Diabetic diet (7) No contraindication to deep vein thrombosis (DVT) prophylaxis ICD Codes: Z78.9 - Other specified health status Status: Acute Plan: -Heparin 5000 units (Lai Ellis MD R3) Problem Qualifiers (1) Chronic foot ulcer: Qualified Codes: L97.522 - Non-pressure chronic ulcer of other part of left foot with fat layer exposed (2) Hepatitis C: Lai Ellis MD R3 Oct 27, 2017 12:08 Hemant Thao MD Oct 27, 2017 16:38
--- NOTE | 2017-10-27 12:22 | MP ---
cc: MOIZ MCGRATH MD DATE OF SURGERY 10/25/2017 PREOPERATIVE DIAGNOSIS Left lower extremity osteomyelitis. POSTOPERATIVE DIAGNOSIS Left lower extremity osteomyelitis. PROCEDURE 1. Aortogram with left lower extremity angiograms. 2. Left peroneal artery angioplasty with a tapered 2.5-3 mm x 210 mm balloon. ATTENDING SURGEON Moiz Mcgrath, AREA FIELD WORKER None. ANESTHESIA Local with sedation INDICATIONS Mrs. Arechiga is a 52-year-old female with peripheral vascular disease and left toe osteomyelitis. She has no palpable femoral pulses and is taken to the operating room for angiographic evaluation and potential treatment. There is no prior catheter-based imaging available for my review. DESCRIPTION OF PROCEDURE Informed consent was obtained from the patient. She was taken to the operating room and placed supine on the operating room table. Appropriate time-out was taken to ensure the patient's identity, the operative site and the planned procedure. The administration of antibiotics was not necessary as this is a clean procedure without planned implantation of any foreign object. Additionally, the patient was on systemic antibiotics for osteomyelitis. Everyone in the room agreed with the time-out procedure. Her bilateral groins were prepped and draped and the right groin anesthetized with 1% lidocaine. A 21-gauge micropuncture needle was used to access the right common femoral artery. This was exchanged using Seldinger technique for a micropuncture sheath through which a 0.035 Glidewire was introduced and the micropuncture sheath exchanged for a 5-Bruneian sheath and a VCF catheter was placed over the wire and through the sheath and aortogram and pelvic arteriograms obtained. The Glidewire was reintroduced and navigated down to left common femoral artery. The VCF catheter advanced over this and the left lower extremity arteriograms obtained. The patient was systemically heparinized with 5000 units of IV heparin. The 0.035 Churchill wire was introduced down to the distal SFA. The VCF catheter and 5-Bruneian sheath were removed and a 6-Bruneian, 55-cm Guillaume sheath was then introduced. CXI catheter was placed over the Churchill, through the sheath and the Churchill was exchanged for a CLIENT CARE REPRESENTATIVE wire. The CLIENT CARE REPRESENTATIVE and CXI catheter and wire respectively were navigated down to the peroneal artery and the peroneal artery was angioplastied with a tapered 2.5-3 mm x 210-mm balloon. Completion angiogram showed excellent without any recoil or extravasation. The wire, catheter and sheath were removed and the groin was closed Angio-Seal. There were no complications. I was present and scrubbed for the entire procedure. INTERPRETATION OF IMAGES The patient has a patent infrarenal aorta, common iliac arteries, hypogastric arteries and external iliac arteries. None of these have any hemodynamically significant stenoses. The left common femoral artery, profunda and SFA are patent without any hemodynamically significant stenoses. The left popliteal artery is patent. The posterior tibial artery is occluded. The anterior tibial artery is a dominant runoff to the foot. However, the peroneal artery has a long high-grade stenosis with distal reconstitution. After angioplasty there is excellent result without any recoil, extravasation or flow-limiting dissection. MD ELIO Centeno/RANI /7:09 PM /11:54 AM
--- NOTE | 2017-10-27 14:43 | HHI.IDPN ---
Note Infectious Disease Note Patient feels okay. 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 Awake and alert. Afebrile. The patient was noted to have had a urinary tract infection with positive culture on 10/18 which grew out ESBL E. coli. PAST MEDICAL HISTORY: 1. Recurrent urinary tract infection. The patient has had several urinary tract infections due to E. coli ESBL-positive. 2. Hyperlipidemia. 3. Diabetes mellitus. 4. 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 The patient is status post chemotherapy and radiation. 5. Port placement. 6. Pacemaker. 7. Peripheral vascular disease. 8. History of pancreatitis. 9. History of fifth toe amputation for osteomyelitis. 10. Orthostatic hypotension. 11. Hepatitis C. 12. Asthma. 13. Cholecystectomy. 14. Appendectomy. 15. Tonsillectomy. ALLERGIES: 1. ACETAMINOPHEN. 2. METFORMIN. 3. MORPHINE. 4. OXYCODONE. 5. PROCHLORPERAZINE. 6. TRAMADOL. ANTIBIOTICS: 1. Ertapenem. 2. Vancomycin. OBJECTIVE: Vital Signs Date Time Temp Pulse Resp B/P (MAP) Pulse Ox O2 Delivery O2 Flow Rate FiO2 10/27/17 14:00 94 10/27/17 13:00 86 10/27/17 12:00 88 10/27/17 11:00 99.1 92 16 97/50 (66) 98 10/27/17 11:00 90 10/27/17 10:00 94 10/27/17 09:25 96 21 10/27/17 09:00 84 10/27/17 08:00 90 10/27/17 07:00 98 10/27/17 07:00 99.5 82 20 87/52 (64) 96 10/27/17 06:09 87 10/27/17 05:00 86 10/27/17 04:00 84 10/27/17 03:09 88 10/27/17 03:00 97.3 89 17 109/53 (71) 94 10/27/17 02:01 87 10/27/17 01:01 85 10/27/17 00:00 90 10/26/17 23:00 97.9 88 17 107/55 (72) 96 10/26/17 23:00 89 10/26/17 22:00 94 10/26/17 21:00 88 10/26/17 20:05 97 10/26/17 20:00 70 10/26/17 19:00 99.5 95 17 91/54 (66) 96 10/26/17 19:00 71 10/26/17 18:00 94 10/26/17 17:00 92 10/26/17 16:00 92 10/26/17 15:00 98.6 96 18 106/64 (78) 96 10/26/17 15:00 89 Laboratory Tests Test 10/26/17 04:59 10/27/17 06:04 White Blood Count 6.2 TH/MM3 7.2 TH/MM3 Red Blood Count 2.79 MIL/MM3 2.95 MIL/MM3 Hemoglobin 8.1 GM/DL 8.3 GM/DL Hematocrit 23.6 % 25.0 % Mean Corpuscular Volume 84.3 FL 84.8 FL Mean Corpuscular Hemoglobin 29.0 PG 28.1 PG Mean Corpuscular Hemoglobin Concent 34.3 % 33.2 % Red Cell Distribution Width 14.4 % 14.3 % Platelet Count 341 TH/MM3 394 TH/MM3 Mean Platelet Volume 7.7 FL 7.7 FL Laboratory Tests Test 10/26/17 04:59 10/27/17 06:04 Blood Urea Nitrogen 8 MG/DL 9 MG/DL Creatinine 0.48 MG/DL 0.50 MG/DL Random Glucose 116 MG/DL 94 MG/DL Calcium Level 9.6 MG/DL 9.6 MG/DL Sodium Level 136 MEQ/L 138 MEQ/L Potassium Level 4.1 MEQ/L 4.4 MEQ/L Chloride Level 99 MEQ/L 99 MEQ/L Carbon Dioxide Level 33.1 MEQ/L 35.2 MEQ/L Anion Gap 4 MEQ/L 4 MEQ/L Estimat Glomerular Filtration Rate 136 ML/MIN 130 ML/MIN Vitamin B12 Level 489 PG/ML Folate 17.9 NG/ML PHYSICAL EXAMINATION: GENERAL: No acute distress. Awake and alert and oriented. HEAD, EYES, EARS, NOSE, THROAT: The head is atraumatic. Extraocular movements grossly intact. Pupils are reactive to light. No icterus. Oropharynx with moist mucosa without lesions. NECK: The neck is supple without adenopathy. LUNGS: Clear breath sounds. HEART: Regular S1 and S2. No murmurs. ABDOMEN: Bowel sounds present, soft, nontender. EXTREMITIES: No clubbing or cyanosis or edema. R great toe has less erythema. ulceration at the lateral aspect. SKIN: No rash. NEUROLOGIC: Nonfocal. IMPRESSION: 1. Recurrent urinary tract infection. Resolved. 2. Positive urine culture with E. coli ESBL. Repeat urine culture negative. 3. wound infection left great toe MRSA/ESBL e. coli. 4. PVD. RECOMMENDATIONS: 1. Continue Ertapenem for ESBL E. coli. 2. Continue Vancomycin for MRSA. 3. Plan on 4 weeks of vancomycin/Ertapenem. Antibiotic orders written on infusion form. Can be given via her infusion port. Mo Valencia MD Oct 27, 2017 14:43
--- NOTE | 2017-10-27 14:49 | HHI.FF ---
Infusion Therapy Location of Infusion Therapy: [facility] Infusion Therapy Order Patient Information Patient Weight 65.4 kg Diagnosis: Diagnosis Wound infection with cellulitis left great toe. MRSA/ESBL ecoli. Coded Allergies: tramadol (Verified Allergy, Intermediate, Rash, 10/19/17) MRI PRECAUTION (Verified Adverse Reaction, Severe, PACEMAKER IS NOT A BIOTRONIK OR MEDTRONIC 06/15/16 KMD, 10/19/17) PACEMAKER IS NOT A BIOTRONIK OR MEDTRONIC CONDITIONAL PACEMAKER. CALLED BOTH COMPANIES TO CONFIRM. acetaminophen (Verified Adverse Reaction, Severe, Nausea/Vomiting, ) metformin (Verified Adverse Reaction, Severe, DIARRHEA, 10/19/17) morphine (Verified Adverse Reaction, Severe, Dizziness, 10/19/17) oxycodone (Verified Adverse Reaction, Severe, Nausea/Vomiting, 10/19/17) prochlorperazine (Verified Adverse Reaction, Severe, ANXIETY, 10/19/17) ANXIETY Administer Medication Vancomycin 1 gram IV q 12 hours Stop Treatment: Nov 20, 2017 Administer Medication Ertapenem 1 gram IV q 24 hours Stop Treatment: Nov 20, 2017 Additional Information Venous access: Implanted Port Additional Instructions [x] Peripheral flush and dressing changes per protocol [x] Implanted port and central casing in line setter: * Implanted port: 10 ml Normal Saline followed by 5 ml Heparin 100 units/ml Heparin flush after each use and monthly to maintain. [] May leave port accessed during therapy. [] May leave peripheral site accessed for duration of therapy. [x] If patient has SOB or respiratory distress, check oxygen saturation. If less than 90% or clinical signs of respiratory distress, administer oxygen at 2 L/min. via nasal cannula and notify physician. [x] Anaphylaxis/Reaction orders: * Stop infusion. * Keep IV line open with saline flush. * Notify physician. * Monitor vital signs every 15 minutes until symptoms resolve. * Check Oxygen saturation; Oxygen at 2 L/min. via nasal cannula if less than 90% or clinical signs of respiratory distress. * Administer diphenhydramine (Benadryl) 25 mg IV STAT, (unless patient has received as pre-med). May repeat once, if necessary. * Solu-Cortef 250 mg IVP over 30-60 seconds, use 100 mg vials for each dissolution. * Epinephrine (1mg/1 ml) 0.3 mg subcutaneously or IVP now with any signs of respiratory distress. * Check with physician for new additional pre-med orders if patient is re- challenged or re-treated. [x] May remove PICC line when treatment complete, after confirming with Physician. [x] If the patient is admitted to the hospital, the ED, or transferred via [facility] , complete transfer form including medication reconciliation order sheet. Laboratory Tests Weekly Labs: Vancomycin Trough Additional Information BMP Q 3 days while on vancomycin. Fax result of labs to Dr. Valencia [phone]. Mo Valencia MD Oct 27, 2017 14:49
[2017-10-27] MEDS: ATORVASTATIN 40 MG TAB PO SCH (21:39)
[2017-10-27] MEDS ORDERED: PHARMACY ORDERED LAB ONE (23:45)
[2017-10-28] VITALS (31 sets, daily range): BP systolic 91–148; BP diastolic 50–70; PULSE 75–96; RESP 16–20; TEMP 97.8–99.4; O2SAT 96–100
[2017-10-28 00:12] LABS: BICARBONATE 34.2 MEQ/L (21.0-32.0); CREATININE 0.44 MG/DL (0.50-1.00); VANCOMYCIN TROUGH 21.3 MCG/ML (5.0-10.0)
[2017-10-28 05:17] LABS: HEMATOCRIT 22.2 % (35.0-46.0); HEMOGLOBIN 7.4 GM/DL (11.6-15.3); MEAN CELL VOLUME 85.2 FL (80.0-100.0); MEAN CORPUSCULAR HEMOGLOBIN 28.5 PG (27.0-34.0); MEAN CORPUSCULAR HGB CONC 33.5 % (32.0-36.0); MEAN PLATELET VOLUME 7.7 FL (7.0-11.0); PLATELET COUNT 386 TH/MM3 (150-450); RED CELL DISTRIBUTION WIDTH 14.3 % (11.6-17.2); WHITE BLOOD COUNT 5.6 TH/MM3 (4.0-11.0)
[2017-10-28] MEDS: INSULIN ASPART SUPPLEMENTAL SCALE SQ SCH ×4 (08:00→20:46)
[2017-10-28] MEDS: SODIUM CHLORIDE 0.9% FLUSH 10 ML FLUSH IV FLUSH SCH ×2 (09:00→21:00)
[2017-10-28] MEDS: DOCUSATE SODIUM 50 MG/SENNA 8.6 MG TAB PO SCH ×2 (09:00→20:46)
[2017-10-28] MEDS: GABAPENTIN 400 MG CAP PO SCH ×3 (09:05→18:00)
[2017-10-28] MEDS: CLOPIDOGREL 75 MG TAB PO SCH (09:05)
[2017-10-28] MEDS: VANCOMYCIN INJ 800 MG in SODIUM CHLOR 0.9% 250 ML INJ 250 ML IV SCH ×3 (09:05→23:19)
[2017-10-28] MEDS: INSULIN DETEMIR 100 UNITS/ML VIAL SQ SCH ×2 (09:06→20:43)
[2017-10-28] MEDS: FERROUS SULFATE 325 MG (65 MG ELEMENTAL IRON) TAB PO SCH (09:06)
[2017-10-28] MEDS: MIDODRINE 5 MG TAB PO SCH ×3 (09:06→18:00)
[2017-10-28] MEDS: COLLAGENASE OINT 30 GM TUBE TOPICAL SCH (09:07)
[2017-10-28] MEDS: SODIUM CHLOR 0.9% 1000 ML INJ 1,000 ML IV SCH ×2 (09:08→18:04)
[2017-10-28] MEDS: HEPARIN SODIUM - SQ 10,000 UNITS/ML VIAL SQ SCH ×3 (09:08→23:20)
--- NOTE | 2017-10-28 10:21 | HHI.FPPN ---
Subjective Remarks Patient lying in bed, no distress. Has no complaints this morning. Reports no lightheadedness. Was able to get up and go to the bathroom without feeling lightheaded. Reports no chest pain or shortness of breath. No abdominal pain, nausea, vomiting, diarrhea. Left foot wrapped, removed dressing and examined. Foot wound appearing stable. (Lai Ellis MD R3) Objective Vitals Vital Signs Date Time Temp Pulse Resp B/P (MAP) Pulse Ox O2 Delivery O2 Flow Rate FiO2 10/28/17 07:45 99.2 86 18 148/68 (94) 99 10/28/17 06:00 88 10/28/17 05:00 83 10/28/17 04:00 85 10/28/17 03:30 97.8 89 16 91/50 (64) 99 10/28/17 03:00 93 10/28/17 02:00 87 10/28/17 01:00 85 10/28/17 00:00 83 10/27/17 23:40 99.2 79 18 93/55 (68) 97 10/27/17 23:00 83 10/27/17 22:00 84 10/27/17 21:00 98.8 85 16 110/51 (70) 100 10/27/17 21:00 84 10/27/17 20:37 98 10/27/17 20:00 80 10/27/17 19:00 85 10/27/17 18:00 84 10/27/17 17:00 94 10/27/17 16:00 84 10/27/17 15:00 90 10/27/17 15:00 99.2 89 18 104/51 (68) 99 10/27/17 14:00 94 10/27/17 13:00 86 10/27/17 12:00 88 10/27/17 11:00 99.1 92 16 97/50 (66) 98 10/27/17 11:00 90 I/O 10/27/17 10/27/17 10/27/17 10/28/17 10/28/17 10/28/17 07:00 15:00 23:00 07:00 15:00 23:00 Intake Total 730 ml 1250 ml 1060 ml 2354 ml Output Total 750 ml 720 ml 1100 ml Balance -20 ml 1250 ml 340 ml 1254 ml Intake Oral 480 ml 960 ml 480 ml IV Total 250 ml 1250 ml 100 ml 1874 ml Output Urine Total 750 ml 720 ml 1100 ml # Voids 3 3 # Bowel Movements 0 0 (Lai Ellis MD R3) Result Diagram: 10/28/17 0455 10/27/17 5505 Objective Remarks General: Lying in bed, no distress. Skin: has ulcer at base of left great toe partially covered by eschar. No purulent drainage. Mild erythema surrounding the wound. No abscess formation. Currently dressed and covered, removed for inspection. Redressed after exam. HEENT: Normocephalic, no nasal discharge CV: RRR, no murmurs, rubs, or gallops, normal pulses and capillary refill. Dorsalis pedis and PT pulses intact but weak. Lungs: CTAB Abdomen: Soft, nontender, nondistended, normal bowel sounds Ext: No edema : No CVA tenderness Procedures Angiogram with balloon angioplasty 10/25/17 (Lai Ellis MD R3) A/P Assessment and Plan 52 y/o F presented to the ED after a fall at home with syncope. Also with ulcer with eschar at base of left great toe. Wound culture with MRSA and ESBL E coli. Will need terminal gauger IV antibiotics. She is status post angioplasty of her left leg for peripheral artery disease. She also has diabetes. Discharge Planning Will need alf facility versus inpatient rehabilitation, working with case management to make arrangements. Will receive long-term antibiotics via port. (Lai Ellis MD R3) Attending Attestation Patient seen and examined. Case reviewed and discussed with the resident team. Agree with plan of care as discussed with me and documented in the resident note. she is improving daily from her operation. she is very interested in rehab (Felicia Herrera MD) Problem List: (1) Chronic foot ulcer ICD Codes: L97.509 - Chronic foot ulcer Status: Chronic Plan: Left base of great toe ulcer partially covered by eschar. History of polyneuropathy. Arterial segmental Doppler suggesting peripheral arterial disease, worse on left. X-ray of foot with erosive changes. Tagged WBC scan showing no osteomyelitis. Culture of wound growing MRSA and ESBL E Coli and gram negative rods. Now status post angioplasty. - Podiatry on board. - Infectious disease on board. - Vascular surgery on board. - Angiogram with balloon angioplasty performed 10/25/17. - Continue Plavix 75 mg daily. - Vancomycin to cover MRSA, Ertapenem to cover ESBL E coli. Will need for 3 to 4 weeks, administer through port. - Physical therapy on board. - Follow up in wound care center after discharge. - Educate on diabetic control - For peripheral arterial disease, recommend no smoking and a graded exercise routine. - Will likely go to SNF versus inpatient rehab. - Per podiatry: Santyl ointment daily to plantar wound of left foot. Follow up in wound center, likely get debridement at that time. (2) Syncope ICD Codes: R55 - Syncope and collapse Status: Resolved Plan: Patient with recent episode of syncope with reassuring exam. Orthostatic hypotension versus dysautonomia versus mechanical fall versus TIA/CVA. CT head: No acute intracranial abnormalities. Chest x-ray: No focal consolidation. Hip/ pelvis x-ray: No acute findings. Mild osteoarthritis of the bilateral hips. Orthostatic vital signs: Consistent with orthostatic hypotension - Physical therapy on board. - Fall precautions ordered. - Monitor hydration status. - At discharge, will need SNF versus inpatient rehab, with physical therapy. - Counseled on sitting up/standing slowly when at home. - Midodrine 5 mg tid. (3) DM (diabetes mellitus), type 2, uncontrolled w/neurologic complication ICD Codes: E11.49 - Type 2 diabetes mellitus with other diabetic neurological complication; E11.65 - Type 2 diabetes mellitus with hyperglycemia Status: Chronic Plan: Patient with history of type 2 diabetes with polyneuropathy, euglycemic. -Continue home gabapentin - Levemir 5 units twice a day -Hold Januvia -Sliding-scale insulin per protocol (4) Thickened endometrium ICD Codes: R93.8 - Abnormal findings on diagnostic imaging of other specified body structures Status: Chronic Plan: Thickened endometrium noted on prior CT abdomen, with recommendation for transvaginal ultrasound for further evaluation as an outpatient. Also with lingular density seen on prior CT abdomen, with recommendation for repeat CT scan at regular intervals to assess stability. (5) Hepatitis C ICD Codes: B19.20 - Unspecified viral hepatitis C without hepatic coma Status: Chronic Plan: Patient with history of hepatitis C, no transaminitis. (6) Nutrition, metabolism, and development symptoms ICD Codes: R63.8 - Other symptoms and signs concerning food and fluid intake Status: Acute Plan: Fluids: PO Electrolytes: Monitor and replace as needed Nutrition: Diabetic diet (7) No contraindication to deep vein thrombosis (DVT) prophylaxis ICD Codes: Z78.9 - Other specified health status Status: Acute Plan: -Heparin 5000 units (Lai Ellis MD R3) Problem Qualifiers (1) Chronic foot ulcer: Qualified Codes: L97.522 - Non-pressure chronic ulcer of other part of left foot with fat layer exposed (2) Syncope: Qualified Codes: R55 - Syncope and collapse (3) DM (diabetes mellitus), type 2, uncontrolled w/neurologic complication: Qualified Codes: E11.42 - Type 2 diabetes mellitus with diabetic polyneuropathy ; E11.65 - Type 2 diabetes mellitus with hyperglycemia (4) Hepatitis C: Lai Ellis MD R3 Oct 28, 2017 10:21 Felicia Herrera MD Nov 01, 2017 11:10
[2017-10-28] MEDS ORDERED: FERR325T20 PO ×2 (11:01→12:55)
[2017-10-28] MEDS ORDERED: PLAV75TA29 PO ×2 (11:01→12:55)
[2017-10-28] MEDS ORDERED: COLL30T TOPICAL ×2 (11:01→12:55)
[2017-10-28] MEDS: ERTAPENEM INJ 1,000 MG in SODIUM CHLORIDE 0.9% INJ 100 ML IV SCH (12:58)
[2017-10-28] MEDS ORDERED: SODIUM CHLORIDE 0.9% FLUSH 10 ML FLUSH IV FLUSH PRN (17:00)
[2017-10-28] MEDS: ATORVASTATIN 40 MG TAB PO SCH (20:46)
[2017-10-28] MEDS: ACETAMINOPHEN 325 MG TAB PO PRN (20:46)
[2017-10-29] VITALS (23 sets, daily range): BP systolic 96–138; BP diastolic 55–76; PULSE 76–92; RESP 18–20; TEMP 97.6–98.7; O2SAT 95–100
[2017-10-29] MEDS: SODIUM CHLOR 0.9% 1000 ML INJ 1,000 ML IV SCH (03:15)
[2017-10-29] MEDS: INSULIN ASPART SUPPLEMENTAL SCALE SQ SCH ×4 (08:00→21:34)
[2017-10-29 08:03] LABS: HEMATOCRIT 23.8 % (35.0-46.0); HEMOGLOBIN 7.8 GM/DL (11.6-15.3); MEAN CELL VOLUME 84.9 FL (80.0-100.0); MEAN CORPUSCULAR HEMOGLOBIN 27.9 PG (27.0-34.0); MEAN CORPUSCULAR HGB CONC 32.9 % (32.0-36.0); MEAN PLATELET VOLUME 7.4 FL (7.0-11.0); PLATELET COUNT 457 TH/MM3 (150-450); RED CELL DISTRIBUTION WIDTH 14.5 % (11.6-17.2); WHITE BLOOD COUNT 4.2 TH/MM3 (4.0-11.0)
[2017-10-29 08:34] LABS: BICARBONATE 32.5 MEQ/L (21.0-32.0); CALCIUM 9.4 MG/DL (8.5-10.1); CREATININE 0.42 MG/DL (0.50-1.00)
[2017-10-29] MEDS: HEPARIN SODIUM - SQ 10,000 UNITS/ML VIAL SQ SCH ×2 (08:49→15:29)
[2017-10-29] MEDS: INSULIN DETEMIR 100 UNITS/ML VIAL SQ SCH ×2 (08:50→21:33)
[2017-10-29] MEDS: GABAPENTIN 400 MG CAP PO SCH ×3 (08:51→17:36)
[2017-10-29] MEDS: MIDODRINE 5 MG TAB PO SCH ×3 (08:51→17:36)
[2017-10-29] MEDS: CLOPIDOGREL 75 MG TAB PO SCH (08:51)
[2017-10-29] MEDS: FERROUS SULFATE 325 MG (65 MG ELEMENTAL IRON) TAB PO SCH (08:51)
[2017-10-29] MEDS: VANCOMYCIN INJ 800 MG in SODIUM CHLOR 0.9% 250 ML INJ 250 ML IV SCH ×2 (08:55→21:32)
[2017-10-29] MEDS: DOCUSATE SODIUM 50 MG/SENNA 8.6 MG TAB PO SCH ×3 (08:56→21:33)
[2017-10-29] MEDS: SODIUM CHLORIDE 0.9% FLUSH 10 ML FLUSH IV FLUSH SCH ×2 (08:56→21:00)
[2017-10-29] MEDS: COLLAGENASE OINT 30 GM TUBE TOPICAL SCH (08:56)
--- NOTE | 2017-10-29 11:51 | HHI.FPPN ---
Subjective Remarks Ms Arechiga had complained to her nurse that she had left transient calf pain but was better once I saw her and had no swelling or erythema. Her only concern was about going to rehab. She now very much wants to go to [facility] if at all possible. She has had a long road of many health problems with her cancer and treatment and other problems and could greatly benefit from rehab Objective Vitals Vital Signs Date Time Temp Pulse Resp B/P (MAP) Pulse Ox O2 Delivery O2 Flow Rate FiO2 10/29/17 11:14 97.6 83 20 138/66 (90) 100 10/29/17 08:21 100 21 10/29/17 07:00 98.7 83 20 126/70 (88) 100 10/29/17 06:09 82 10/29/17 05:04 81 10/29/17 04:12 80 10/29/17 03:40 98.5 76 19 96/55 (69) 100 10/29/17 03:40 85 10/29/17 02:41 83 10/29/17 01:16 84 10/29/17 00:13 77 10/28/17 23:39 81 10/28/17 23:36 98.0 75 17 124/60 (81) 96 10/28/17 22:00 80 10/28/17 21:00 89 10/28/17 20:26 98 21 10/28/17 20:00 85 10/28/17 19:40 98.8 88 18 135/66 (89) 100 10/28/17 19:00 90 10/28/17 18:00 88 10/28/17 17:00 84 10/28/17 16:15 99.0 83 18 146/70 (95) 100 10/28/17 16:00 84 10/28/17 15:00 96 10/28/17 14:00 92 10/28/17 13:00 90 10/28/17 12:14 99.4 88 20 110/60 (77) 97 10/28/17 12:00 86 I/O 10/28/17 10/28/17 10/28/17 10/29/17 10/29/17 10/29/17 07:00 15:00 23:00 07:00 15:00 23:00 Intake Total 2354 ml 355 ml 960 ml 978 ml Output Total 1100 ml 3500 ml 2300 ml Balance 1254 ml 355 ml -2540 ml -1322 ml Intake Oral 480 ml 960 ml 720 ml IV Total 1874 ml 355 ml 258 ml Output Urine Total 1100 ml 3500 ml 2300 ml # Bowel Movements 0 1 1 Result Diagram: 10/29/17 0730 10/29/17 0730 Objective Remarks General: Lying in bed, no distress. Skin: has ulcer at base of left great toe partially covered by eschar. No purulent drainage. Mild erythema surrounding the wound. No abscess formation. Currently dressed and covered. examined by me yesterday. HEENT: Normocephalic, no nasal discharge CV: RRR, no murmurs, rubs, or gallops, normal pulses and capillary refill. Dorsalis pedis and PT pulses intact but weak. Lungs: CTAB Abdomen: Soft, nontender, nondistended, normal bowel sounds Ext: No edema : No CVA tenderness Procedures Angiogram with balloon angioplasty 12/26/16 A/P Assessment and Plan 52 y/o F presented to the ED after a fall at home with syncope. Also with ulcer with eschar at base of left great toe. Wound culture with MRSA and ESBL E coli. [facility] need [facility]. She is status post angioplasty of her left leg for peripheral artery disease. She also has diabetes. Discharge Planning Will need jail facility versus inpatient rehabilitation, working with case management to make arrangements. Will receive long-term antibiotics via port. asked case management to see if she could go to [facility] Problem List: (1) Chronic foot ulcer ICD Codes: L97.509 - Chronic foot ulcer Status: Chronic Plan: Left base of great toe ulcer partially covered by eschar. History of polyneuropathy. Arterial segmental Doppler suggesting peripheral arterial disease, worse on left. X-ray of foot with erosive changes. Tagged WBC scan showing no osteomyelitis. Culture of wound growing MRSA and ESBL E Coli and gram negative rods. Now status post angioplasty. - Podiatry on board. - Infectious disease on board. - Vascular surgery on board. - Angiogram with balloon angioplasty performed 10/25/17. - Continue Plavix 75 mg daily. - Vancomycin to cover MRSA, Ertapenem to cover ESBL E coli. Will need for 3 to 4 weeks, administer through port. - Physical therapy on board. - Follow up in wound care center after discharge. - Educate on diabetic control - For peripheral arterial disease, recommend no smoking and a graded exercise routine. - Will likely go to SNF versus inpatient rehab. - Per podiatry: Santyl ointment daily to plantar wound of left foot. Follow up in wound center, likely get debridement at that time. (2) Syncope ICD Codes: R55 - Syncope and collapse Status: Resolved Plan: Patient with recent episode of syncope with reassuring exam. Orthostatic hypotension versus dysautonomia versus mechanical fall versus TIA/CVA. CT head: No acute intracranial abnormalities. Chest x-ray: No focal consolidation. Hip/ pelvis x-ray: No acute findings. Mild osteoarthritis of the bilateral hips. Orthostatic vital signs: Consistent with orthostatic hypotension - Physical therapy on board. - Fall precautions ordered. - Monitor hydration status. - At discharge, will need SNF versus inpatient rehab, with physical therapy. - Counseled on sitting up/standing slowly when at home. - Midodrine 5 mg tid. she has a long history of severe orthostasis especially with chemo but this could also be related to her DM so this is by far the most likely cause (3) DM (diabetes mellitus), type 2, uncontrolled w/neurologic complication ICD Codes: E11.49 - Type 2 diabetes mellitus with other diabetic neurological complication; E11.65 - Type 2 diabetes mellitus with hyperglycemia Status: Chronic Plan: Patient with history of type 2 diabetes with polyneuropathy, euglycemic. -Continue home gabapentin - Levemir 5 units twice a day -Hold Januvia -Sliding-scale insulin per protocol (4) Hepatitis C ICD Codes: B19.20 - Unspecified viral hepatitis C without hepatic coma Status: Chronic Plan: Patient with history of hepatitis C, no transaminitis. (5) Nutrition, metabolism, and development symptoms ICD Codes: R63.8 - Other symptoms and signs concerning food and fluid intake Status: Acute Plan: Fluids: PO Electrolytes: Monitor and replace as needed Nutrition: Diabetic diet (6) No contraindication to deep vein thrombosis (DVT) prophylaxis ICD Codes: Z78.9 - Other specified health status Status: Acute Plan: -Heparin 5000 units (7) Thickened endometrium ICD Codes: R93.8 - Abnormal findings on diagnostic imaging of other specified body structures Status: Chronic Plan: Thickened endometrium noted on prior CT abdomen, with recommendation for transvaginal ultrasound for further evaluation as an outpatient. Also with lingular density seen on prior CT abdomen, with recommendation for repeat CT scan at regular intervals to assess stability. Problem Qualifiers (1) Chronic foot ulcer: Qualified Codes: L97.522 - Non-pressure chronic ulcer of other part of left foot with fat layer exposed (2) Syncope: Qualified Codes: R55 - Syncope and collapse (3) DM (diabetes mellitus), type 2, uncontrolled w/neurologic complication: Qualified Codes: E11.42 - Type 2 diabetes mellitus with diabetic polyneuropathy ; E11.65 - Type 2 diabetes mellitus with hyperglycemia (4) Hepatitis C: Felicia Herrera MD Oct 29, 2017 11:51
[2017-10-29] MEDS: ERTAPENEM INJ 1,000 MG in SODIUM CHLORIDE 0.9% INJ 100 ML IV SCH (12:46)
[2017-10-29] MEDS: ATORVASTATIN 40 MG TAB PO SCH (21:33)
[2017-10-30] VITALS: BP_SYST 115; BP_SYST 119; BP_DIAS 66; BP_DIAS 69; PULSE 78; PULSE 84; RESP 18; TEMP 98; TEMP 98.2; O2SAT 99
[2017-10-30] MEDS: HEPARIN SODIUM - SQ 10,000 UNITS/ML VIAL SQ SCH ×3 (01:37→16:55)
[2017-10-30 04:00] VITALS: BP 108/59; PULSE 82; RESP 18; TEMP 98.7; O2SAT 100
[2017-10-30 05:16] LABS: HEMATOCRIT 23.8 % (35.0-46.0); MEAN CELL VOLUME 84.4 FL (80.0-100.0); MEAN CORPUSCULAR HEMOGLOBIN 28.3 PG (27.0-34.0); MEAN CORPUSCULAR HGB CONC 33.5 % (32.0-36.0); MEAN PLATELET VOLUME 7.2 FL (7.0-11.0); PLATELET COUNT 464 TH/MM3 (150-450); RED BLOOD COUNT 2.82 MIL/MM3 (4.00-5.30); RED CELL DISTRIBUTION WIDTH 14.8 % (11.6-17.2); WHITE BLOOD COUNT 4.4 TH/MM3 (4.0-11.0)
[2017-10-30 05:44] LABS: BICARBONATE 31.2 MEQ/L (21.0-32.0); CALCIUM 9.5 MG/DL (8.5-10.1); CREATININE 0.49 MG/DL (0.50-1.00)
[2017-10-30 07:54] VITALS: O2SAT 99
[2017-10-30 08:00] VITALS: BP 103/58; PULSE 88; RESP 18; TEMP 98.4; O2SAT 100
[2017-10-30] MEDS: INSULIN ASPART SUPPLEMENTAL SCALE SQ SCH ×4 (08:00→21:00)
--- NOTE | 2017-10-30 08:12 | HHI.FPPN ---
Subjective Remarks Remains afebrile. Sitting up in bed without any distress. No complaints overnight. No chest pain, shortness of breath, abdominal pain, nausea, vomiting , diarrhea. Reports no pain this morning. She is eager to get to rehab. Likely she will go to [facility] once approved to help her with general conditioning and strength. (Lai Ellis MD R3) Objective Vitals Vital Signs Date Time Temp Pulse Resp B/P (MAP) Pulse Ox O2 Delivery O2 Flow Rate FiO2 10/30/17 07:54 99 21 10/30/17 04:00 98.7 82 18 108/59 (75) 100 10/30/17 00:00 98.2 78 18 119/69 (86) 99 10/30/17 00:00 98.0 84 18 115/66 (82) 99 10/29/17 20:15 95 10/29/17 18:01 91 10/29/17 17:00 82 10/29/17 16:03 87 10/29/17 15:29 98.6 84 18 121/76 (91) 99 10/29/17 15:00 84 10/29/17 14:11 92 10/29/17 13:21 91 10/29/17 12:00 84 10/29/17 11:14 97.6 83 20 138/66 (90) 100 10/29/17 11:00 88 10/29/17 10:00 86 10/29/17 09:00 86 10/29/17 08:21 100 21 I/O 10/29/17 10/29/17 10/29/17 10/30/17 10/30/17 10/30/17 07:00 15:00 23:00 07:00 15:00 23:00 Intake Total 978 ml 600 ml 1200 ml Output Total 2300 ml 2900 ml 1900 ml Balance -1322 ml 600 ml -1700 ml -1900 ml Intake Oral 720 ml 1200 ml IV Total 258 ml 600 ml Output Urine Total 2300 ml 2900 ml 1900 ml # Voids 2 4 # Bowel Movements 1 (Lai Ellis MD R3) Result Diagram: 10/30/1744410/30/175 Objective Remarks General: Sitting up in bed, no distress. Skin: has ulcer at base of left great toe partially covered by eschar. No purulent drainage. Mild erythema surrounding the wound. No abscess formation. HEENT: Normocephalic, no nasal discharge CV: RRR, no murmurs, rubs, or gallops, normal pulses and capillary refill. Dorsalis pedis and PT pulses intact but weak. Lungs: CTAB Abdomen: Soft, nontender, nondistended, normal bowel sounds Ext: No edema : No CVA tenderness Procedures Angiogram with balloon angioplasty 10/25/17 (Lai Ellis MD R3) A/P Assessment and Plan 52 y/o F presented to the ED after a fall at home with syncope. Also with ulcer with eschar at base of left great toe. Wound culture with MRSA and ESBL E coli. Will need half-way IV antibiotics. She is status post angioplasty of her left leg for peripheral artery disease. She also has diabetes. Discharge Planning Will need care home facility versus inpatient rehabilitation, working with case management to make arrangements. Will receive long-term antibiotics via port. Will try to arrange for her to go to [facility], may possibly happen tomorrow once authorization can be arranged. (Lai Ellis MD R3) Attending Attestation Patient seen and examined. Case reviewed and discussed with the resident team. Agree with plan of care as discussed with me and documented in the resident note. she has had a long road with her chemo, radiation and orthostatic hypotension. now she has the infection (Felicia Herrera MD) Problem List: (1) Chronic foot ulcer ICD Codes: L97.509 - Chronic foot ulcer Status: Chronic Plan: Left base of great toe ulcer partially covered by eschar. History of polyneuropathy. Arterial segmental Doppler suggesting peripheral arterial disease, worse on left. X-ray of foot with erosive changes. Tagged WBC scan showing no osteomyelitis. Culture of wound growing MRSA and ESBL E Coli and gram negative rods. Now status post angioplasty. - Podiatry on board. - Infectious disease on board. - Vascular surgery on board. - Angiogram with balloon angioplasty performed 10/25/17. - Continue Plavix 75 mg daily. - Vancomycin to cover MRSA, Ertapenem to cover ESBL E coli. Will need for 3 to 4 weeks, administer through port. - Physical therapy on board. - Follow up in wound care center after discharge. - Educate on diabetic control - For peripheral arterial disease, recommend no smoking and a graded exercise routine. - Will likely go to SNF versus inpatient rehab. - Per podiatry: Santyl ointment daily to plantar wound of left foot. Follow up in wound center, likely get debridement at that time. (2) Syncope ICD Codes: R55 - Syncope and collapse Status: Resolved Plan: Patient with recent episode of syncope with reassuring exam. Orthostatic hypotension versus dysautonomia versus mechanical fall versus TIA/CVA. CT head: No acute intracranial abnormalities. Chest x-ray: No focal consolidation. Hip/ pelvis x-ray: No acute findings. Mild osteoarthritis of the bilateral hips. Orthostatic vital signs: Consistent with orthostatic hypotension. She has a long history of severe orthostasis especially with chemo but this could also be related to her DM so this is the most likely cause. - Physical therapy on board. - Fall precautions ordered. - Monitor hydration status. - At discharge, will need SNF versus inpatient rehab, with physical therapy. - Counseled on sitting up/standing slowly when at home. - Midodrine 5 mg tid. (3) DM (diabetes mellitus), type 2, uncontrolled w/neurologic complication ICD Codes: E11.49 - Type 2 diabetes mellitus with other diabetic neurological complication; E11.65 - Type 2 diabetes mellitus with hyperglycemia Status: Chronic Plan: Patient with history of type 2 diabetes with polyneuropathy, euglycemic. - Continue home gabapentin - Levemir 5 units twice a day - Hold Januvia - Sliding-scale insulin per protocol (4) Hepatitis C ICD Codes: B19.20 - Unspecified viral hepatitis C without hepatic coma Status: Chronic Plan: Patient with history of hepatitis C, no transaminitis. (5) Thickened endometrium ICD Codes: R93.8 - Abnormal findings on diagnostic imaging of other specified body structures Status: Chronic Plan: Thickened endometrium noted on prior CT abdomen, with recommendation for transvaginal ultrasound for further evaluation as an outpatient. Also with lingular density seen on prior CT abdomen, with recommendation for repeat CT scan at regular intervals to assess stability. (6) Nutrition, metabolism, and development symptoms ICD Codes: R63.8 - Other symptoms and signs concerning food and fluid intake Status: Acute Plan: Fluids: PO Electrolytes: Monitor and replace as needed Nutrition: Diabetic diet (7) No contraindication to deep vein thrombosis (DVT) prophylaxis ICD Codes: Z78.9 - Other specified health status Status: Acute Plan: -Heparin 5000 units (Lai Ellis MD R3) Problem Qualifiers (1) Chronic foot ulcer: Qualified Codes: L97.522 - Non-pressure chronic ulcer of other part of left foot with fat layer exposed (2) Syncope: Qualified Codes: R55 - Syncope and collapse (3) DM (diabetes mellitus), type 2, uncontrolled w/neurologic complication: Qualified Codes: E11.42 - Type 2 diabetes mellitus with diabetic polyneuropathy ; E11.65 - Type 2 diabetes mellitus with hyperglycemia (4) Hepatitis C: Lai Ellis MD R3 Oct 30, 2017 08:12 Felicia Herrera MD Nov 01, 2017 11:12
[2017-10-30] MEDS: GABAPENTIN 400 MG CAP PO SCH ×3 (08:35→16:55)
[2017-10-30] MEDS: FERROUS SULFATE 325 MG (65 MG ELEMENTAL IRON) TAB PO SCH (08:35)
[2017-10-30] MEDS: CLOPIDOGREL 75 MG TAB PO SCH (08:35)
[2017-10-30] MEDS: DOCUSATE SODIUM 50 MG/SENNA 8.6 MG TAB PO SCH ×3 (08:35→21:23)
[2017-10-30] MEDS: MIDODRINE 5 MG TAB PO SCH ×3 (08:35→16:55)
[2017-10-30] MEDS: VANCOMYCIN INJ 800 MG in SODIUM CHLOR 0.9% 250 ML INJ 250 ML IV SCH ×2 (08:35→21:31)
[2017-10-30] MEDS: SODIUM CHLORIDE 0.9% FLUSH 10 ML FLUSH IV FLUSH SCH ×2 (08:36→21:26)
[2017-10-30] MEDS: INSULIN DETEMIR 100 UNITS/ML VIAL SQ SCH ×2 (09:00→21:25)
[2017-10-30] MEDS: ERTAPENEM INJ 1,000 MG in SODIUM CHLORIDE 0.9% INJ 100 ML IV SCH (12:29)
[2017-10-30 16:00] VITALS: BP 105/63; PULSE 86; RESP 18; TEMP 98.1; O2SAT 98
[2017-10-30] MEDS: COLLAGENASE OINT 30 GM TUBE TOPICAL SCH (16:00)
[2017-10-30 20:00] VITALS: BP_SYST 103; BP_SYST 127; BP_DIAS 55; BP_DIAS 59; PULSE 82; PULSE 84; RESP 16; TEMP 97.7; TEMP 98.3; O2SAT 100; O2SAT 99
[2017-10-30] MEDS ORDERED: PHARMACY ORDERED LAB ONE (20:45)
[2017-10-30] MEDS: ATORVASTATIN 40 MG TAB PO SCH (21:24)
[2017-10-31] VITALS (7 sets, daily range): BP systolic 80–141; BP diastolic 51–67; PULSE 81–91; RESP 16–19; TEMP 98.3–98.7; O2SAT 96–100
[2017-10-31 06:53] LABS: HEMOGLOBIN 7.7 GM/DL (11.6-15.3); MEAN CORPUSCULAR HEMOGLOBIN 28.3 PG (27.0-34.0); MEAN CORPUSCULAR HGB CONC 33.3 % (32.0-36.0); MEAN PLATELET VOLUME 7.4 FL (7.0-11.0); PLATELET COUNT 493 TH/MM3 (150-450); RED BLOOD COUNT 2.71 MIL/MM3 (4.00-5.30); RED CELL DISTRIBUTION WIDTH 14.6 % (11.6-17.2); WHITE BLOOD COUNT 4.1 TH/MM3 (4.0-11.0)
[2017-10-31 07:30] LABS: BICARBONATE 33.1 MEQ/L (21.0-32.0); CALCIUM 9.5 MG/DL (8.5-10.1); CREATININE 0.57 MG/DL (0.50-1.00)
[2017-10-31] MEDS: CLOPIDOGREL 75 MG TAB PO SCH (07:52)
[2017-10-31] MEDS: FERROUS SULFATE 325 MG (65 MG ELEMENTAL IRON) TAB PO SCH (07:52)
[2017-10-31] MEDS: VANCOMYCIN INJ 800 MG in SODIUM CHLOR 0.9% 250 ML INJ 250 ML IV SCH ×2 (07:52→21:18)
[2017-10-31] MEDS: GABAPENTIN 400 MG CAP PO SCH ×3 (07:53→17:10)
[2017-10-31] MEDS: DOCUSATE SODIUM 50 MG/SENNA 8.6 MG TAB PO SCH ×2 (07:54→20:44)
[2017-10-31] MEDS: SODIUM CHLORIDE 0.9% FLUSH 10 ML FLUSH IV FLUSH SCH ×2 (07:54→21:19)
[2017-10-31] MEDS: HEPARIN SODIUM - SQ 10,000 UNITS/ML VIAL SQ SCH ×4 (07:54→23:28)
[2017-10-31] MEDS: MIDODRINE 5 MG TAB PO SCH ×3 (07:55→17:09)
[2017-10-31] MEDS: COLLAGENASE OINT 30 GM TUBE TOPICAL SCH (07:55)
[2017-10-31] MEDS: INSULIN DETEMIR 100 UNITS/ML VIAL SQ SCH ×2 (07:55→20:44)
[2017-10-31] MEDS: INSULIN ASPART SUPPLEMENTAL SCALE SQ SCH ×4 (08:00→20:43)
--- NOTE | 2017-10-31 08:02 | HHI.FPPN ---
Subjective Remarks Sitting up on edge of bed, no distress. Has no complaints today. Reports good appetite, but has poor taste since having chemotherapy. Has difficulty swallowing foods that are tough to chew due to poor dentition. No chest pain or shortness of breath. No abdominal pain, nausea, vomiting, diarrhea. Reports no pain today. (Lai Ellis MD R3) Objective Vitals Vital Signs Date Time Temp Pulse Resp B/P (MAP) Pulse Ox O2 Delivery O2 Flow Rate FiO2 10/31/17 07:44 98.7 90 18 136/67 (90) 99 10/31/17 04:00 98.4 87 16 90/53 (65) 96 10/31/17 00:00 98.3 84 16 103/55 (71) 99 10/30/17 20:00 98.3 84 16 103/55 (71) 99 10/30/17 20:00 97.7 82 16 127/59 (81) 100 10/30/17 16:00 98.1 86 18 105/63 (77) 98 I/O 10/30/17 10/30/17 10/30/17 10/31/17 10/31/17 10/31/17 07:00 15:00 23:00 07:00 15:00 23:00 Intake Total 560 ml 600 ml 480 ml Output Total 1900 ml 400 ml 400 ml 1000 ml Balance -1900 ml 160 ml 200 ml -520 ml Intake Oral 560 ml 600 ml 480 ml Output Urine Total 1900 ml 400 ml 400 ml 1000 ml # Voids 2 8 2 2 # Bowel Movements 0 0 0 (Lai Ellis MD R3) Result Diagram: 10/31/17 0610/31/17 06 Objective Remarks General: Sitting on edge of bed, no distress Skin: has ulcer at base of left great toe partially covered by eschar. No purulent drainage. Mild erythema surrounding the wound. No abscess formation. ( examined previously) HEENT: Normocephalic, no nasal discharge CV: RRR, no murmurs, rubs, or gallops, normal pulses and capillary refill. Dorsalis pedis and PT pulses intact but weak. Lungs: CTAB Abdomen: Soft, nontender, nondistended, normal bowel sounds Ext: No edema : No CVA tenderness Procedures Angiogram with balloon angioplasty 10/25/17 (Lai Ellis MD R3) A/P Assessment and Plan 52 y/o F presented to the ED after a fall at home with syncope. Also with ulcer with eschar at base of left great toe. Wound culture with MRSA and ESBL E coli. Will need technician terminal and repeater IV antibiotics. She is status post angioplasty of her left leg for peripheral artery disease. She also has diabetes. Discharge Planning Will need fdc facility versus inpatient rehabilitation, working with case management to make arrangements. Will receive long-term antibiotics via port. Discussed with case management, she will likely go to a SNF, although [facility] is a distant possibility. (Lai Ellis MD R3) Attending Attestation Patient seen and examined. Case reviewed and discussed with the resident team. Agree with plan of care as discussed with me and documented in the resident note. still not back to normal with her taste. most people after chemo develop their sense of taste back within weeks or months at the latest but the radiation is perhaps making this permanent (Felicia Herrera MD) Problem List: (1) Chronic foot ulcer ICD Codes: L97.509 - Chronic foot ulcer Status: Chronic Plan: Base of left great toe ulcer partially covered by eschar. History of polyneuropathy. Arterial segmental Doppler suggesting peripheral arterial disease, worse on left. X-ray of foot with erosive changes. Tagged WBC scan showing no osteomyelitis. Culture of wound growing MRSA and ESBL E Coli and gram negative rods. Now status post angioplasty. - Podiatry on board. - Infectious disease on board. - Vascular surgery on board. - Angiogram with balloon angioplasty performed 10/25/17. - Continue Plavix 75 mg daily. - Vancomycin to cover MRSA, Ertapenem to cover ESBL E coli. Will need for 3 to 4 weeks, administer through port. - Physical therapy on board. - Follow up in wound care center after discharge. - Educate on diabetic control - For peripheral arterial disease, recommend no smoking and a graded exercise routine. - Will likely go to SNF versus inpatient rehab. - Per podiatry: Santyl ointment daily to plantar wound of left foot. Follow up in wound center, likely get debridement at that time. (2) Syncope ICD Codes: R55 - Syncope and collapse Status: Resolved Plan: Patient with recent episode of syncope with reassuring exam. Orthostatic hypotension versus dysautonomia versus mechanical fall versus TIA/CVA. CT head: No acute intracranial abnormalities. Chest x-ray: No focal consolidation. Hip/ pelvis x-ray: No acute findings. Mild osteoarthritis of the bilateral hips. Orthostatic vital signs: Consistent with orthostatic hypotension. She has a long history of severe orthostasis especially with chemo but this could also be related to her DM so this is the most likely cause. - Physical therapy on board. - Fall precautions ordered. - Monitor hydration status. - At discharge, will need SNF versus inpatient rehab, with physical therapy. - Counseled on sitting up/standing slowly when at home. - Midodrine 5 mg tid. (3) DM (diabetes mellitus), type 2, uncontrolled w/neurologic complication ICD Codes: E11.49 - Type 2 diabetes mellitus with other diabetic neurological complication; E11.65 - Type 2 diabetes mellitus with hyperglycemia Status: Chronic Plan: Patient with history of type 2 diabetes with polyneuropathy, euglycemic. - Continue home gabapentin - Levemir 5 units twice a day - Hold Januvia - Sliding-scale insulin per protocol (4) Hepatitis C ICD Codes: B19.20 - Unspecified viral hepatitis C without hepatic coma Status: Chronic Plan: Patient with history of hepatitis C, no transaminitis. (5) Thickened endometrium ICD Codes: R93.8 - Abnormal findings on diagnostic imaging of other specified body structures Status: Chronic Plan: Thickened endometrium noted on prior CT abdomen, with recommendation for transvaginal ultrasound for further evaluation as an outpatient. Also with lingular density seen on prior CT abdomen, with recommendation for repeat CT scan at regular intervals to assess stability. (6) Nutrition, metabolism, and development symptoms ICD Codes: R63.8 - Other symptoms and signs concerning food and fluid intake Status: Acute Plan: Fluids: PO Electrolytes: Monitor and replace as needed Nutrition: Diabetic diet (7) No contraindication to deep vein thrombosis (DVT) prophylaxis ICD Codes: Z78.9 - Other specified health status Status: Acute Plan: -Heparin 5000 units (Lai Ellis MD R3) Problem Qualifiers (1) Chronic foot ulcer: Qualified Codes: L97.522 - Non-pressure chronic ulcer of other part of left foot with fat layer exposed (2) Syncope: Qualified Codes: R55 - Syncope and collapse (3) DM (diabetes mellitus), type 2, uncontrolled w/neurologic complication: Qualified Codes: E11.42 - Type 2 diabetes mellitus with diabetic polyneuropathy ; E11.65 - Type 2 diabetes mellitus with hyperglycemia (4) Hepatitis C: Lai Ellis MD R3 Oct 31, 2017 08:02 Felicia Herrera MD Nov 01, 2017 11:14
--- NOTE | 2017-10-31 10:20 | HHI.DS ---
Discharge Summary Admission Date Oct 25, 2017 at 16:29 Discharge Date: Oct 31, 2017 Admitting Diagnosis syncope, uti (1) Chronic foot ulcer Diagnosis: Principal Plan: Base of left great toe ulcer partially covered by eschar. History of polyneuropathy. Arterial segmental Doppler suggesting peripheral arterial disease, worse on left. X-ray of foot with erosive changes. Tagged WBC scan showing no osteomyelitis. Culture of wound growing MRSA and ESBL E Coli and gram negative rods. Now status post angioplasty. - Podiatry on board. - Infectious disease on board. - Vascular surgery on board. - Angiogram with balloon angioplasty performed 10/25/17. - Continue Plavix 75 mg daily. - Vancomycin to cover MRSA, Ertapenem to cover ESBL E coli. Will need for 3 to 4 weeks, administer through port. - Physical therapy on board. - Follow up in wound care center after discharge. - Educate on diabetic control - For peripheral arterial disease, recommend no smoking and a graded exercise routine. - Will likely go to SNF versus inpatient rehab. - Per podiatry: Santyl ointment daily to plantar wound of left foot. Follow up in wound center, likely get debridement at that time. ICD Codes: L97.509 - Chronic foot ulcer Status: Chronic (2) Syncope Diagnosis: Principal Plan: Patient with recent episode of syncope with reassuring exam. Orthostatic hypotension versus dysautonomia versus mechanical fall versus TIA/CVA. CT head: No acute intracranial abnormalities. Chest x-ray: No focal consolidation. Hip/ pelvis x-ray: No acute findings. Mild osteoarthritis of the bilateral hips. Orthostatic vital signs: Consistent with orthostatic hypotension. She has a long history of severe orthostasis especially with chemo but this could also be related to her DM so this is the most likely cause. - Physical therapy on board. - Fall precautions ordered. - Monitor hydration status. - At discharge, will need SNF versus inpatient rehab, with physical therapy. - Counseled on sitting up/standing slowly when at home. - Midodrine 5 mg tid. ICD Codes: R55 - Syncope and collapse Status: Resolved (3) DM (diabetes mellitus), type 2, uncontrolled w/neurologic complication Diagnosis: Principal Plan: Patient with history of type 2 diabetes with polyneuropathy, euglycemic. - Continue home gabapentin - Levemir 5 units twice a day - Hold Januvia - Sliding-scale insulin per protocol ICD Codes: E11.49 - Type 2 diabetes mellitus with other diabetic neurological complication; E11.65 - Type 2 diabetes mellitus with hyperglycemia Status: Chronic (4) Hepatitis C Diagnosis: Secondary Plan: Patient with history of hepatitis C, no transaminitis. ICD Codes: B19.20 - Unspecified viral hepatitis C without hepatic coma Status: Chronic (5) Thickened endometrium Diagnosis: Secondary Plan: Thickened endometrium noted on prior CT abdomen, with recommendation for transvaginal ultrasound for further evaluation as an outpatient. Also with lingular density seen on prior CT abdomen, with recommendation for repeat CT scan at regular intervals to assess stability. ICD Codes: R93.8 - Abnormal findings on diagnostic imaging of other specified body structures Status: Chronic (6) Nutrition, metabolism, and development symptoms Diagnosis: Secondary Plan: Fluids: PO Electrolytes: Monitor and replace as needed Nutrition: Diabetic diet ICD Codes: R63.8 - Other symptoms and signs concerning food and fluid intake Status: Acute (7) No contraindication to deep vein thrombosis (DVT) prophylaxis Diagnosis: Secondary Plan: -Heparin 5000 units ICD Codes: Z78.9 - Other specified health status Status: Acute [facility], vascular surgery, infectious disease for ESBL e coli and MRSA left great toe foot infection. Procedures Angiogram with balloon angioplasty 10/25/17 Brief History Mrs. Arechiga is a 52 y/o F presenting to the ED after a fall at home. Patient states that earlier today she was ambulating without a balance aid to answer her front door when she became lightheaded and fell to the carbonate hitting her left shoulder, flank, and hip. She states that she can remember the fall, however after the fall she was "passed out" for approximately 5 minutes. Upon awakening, she noted 10/10 sharp pain down her left shoulder, hip, and flank. She states the pain is worse with movement and nothing has been able to alleviate her pain. She also reports multiple episodes of dizziness over the past few months. She complains of blurry vision, left-sided pain, abdominal pain , diarrhea, and syncope. She denies any fevers, chills, shortness of breath, chest pain, or calf tenderness. Of note, patient has been to the ER multiple times this week including 10/18 where she was found to have an ESBL Escherichia coli UTI for which she has not been treated. She endorses her urine having a foul smell, however she denies any dark color, dysuria, or hematuria. Patient was previously a patient of the [facility], however she has been discharged from clinic on 10/12. However patient will be admitted to the hospital for behavioral medicine practice service as this is within her 30 days of cross coverage while she attempts to find a new primary care provider. CBC/BMP: 10/31/17 0600 10/31/17 0600 Significant Findings Laboratory Tests Test 10/29/17 07:30 10/30/17 04:45 10/30/17 20:55 10/31/17 06:00 Red Blood Count 2.80 MIL/MM3 (4.00-5.30) 2.82 MIL/MM3 (4.00-5.30) 2.71 MIL/MM3 (4.00-5.30) Hemoglobin 7.8 GM/DL (11.6-15.3) 8.0 GM/DL (11.6-15.3) 7.7 GM/DL (11.6-15.3) Hematocrit 23.8 % (35.0-46.0) 23.8 % (35.0-46.0) 23.0 % (35.0-46.0) Platelet Count 457 TH/MM3 (150-450) 464 TH/MM3 (150-450) 493 TH/MM3 (150-450) Blood Urea Nitrogen 6 MG/DL (7-18) 6 MG/DL (7-18) Creatinine 0.42 MG/DL (0.50-1.00) 0.49 MG/DL (0.50-1.00) Carbon Dioxide Level 32.5 MEQ/L (21.0-32.0) 33.1 MEQ/L (21.0-32.0) Random Glucose 115 MG/DL (74-106) Vancomycin Level Trough 18.7 MCG/ML (5.0-10.0) Anion Gap 3 MEQ/L (5-15) PE at Discharge General: Sitting on edge of bed, no distress Skin: has ulcer at base of left great toe partially covered by eschar. No purulent drainage. Mild erythema surrounding the wound. No abscess formation. ( examined previously) HEENT: Normocephalic, no nasal discharge CV: RRR, no murmurs, rubs, or gallops, normal pulses and capillary refill. Dorsalis pedis and PT pulses intact but weak. Lungs: CTAB Abdomen: Soft, nontender, nondistended, normal bowel sounds Ext: No edema : No CVA tenderness Hospital Course 52 year old female presented originally after a fall at home, along with orthostatic hypotension and syncope. Fractures were ruled out with imagine. She has a complicated medical history that includes chemotherapy for oral cancer. Since she received chemotherapy she has had problems with orthostatic hypotension. She also has a history of diabetes mellitus which could affect her autonomic nervous system and result in orthostatic hypotension. Physical therapy was brought on board and she was given hydration and nutrition. She was counseled on sitting and standing slowly. She has a walker for mobilization and fall precautions were instituted. She takes midodrine 5 mg tid. She will hopefully go to a half-way facility and continue rehabilitation to help her improve her general physical health. During her hospital stay, she was found to have an infected ulcer at the base of her left great toe, partially covered by eschar. Imaging with tagged WBC showed no osteomyelitis. Vascular surgery was consulted and performed angioplasty for revascularization of her left leg. Infectious disease was consulted for ESBL E Coli and MRSA wound infection of the toe. She is being treated with vancomycin and Ertapenem, and should continue to receive these antibiotics through her port access for several weeks, as ordered by infectious disease in the post-hospital infusion order. She was educated on diabetic control as well as no smoking and a graded exercise routine for peripheral arterial disease. Podiatry was consulted, and recommended daily Santyl applications and dressing changes to the wound. They will see her as an outpatient and likely perform debridement at that time. She also needs to follow up with vascular surgery and her primary care physician. Pt Condition on Discharge: Fair Discharge Disposition: Discharge to SNF Discharge Instructions DIET: Follow Instructions for: As Tolerated, No Restrictions Additional Diet Instructions: Add Boost to meals Activities you can perform: Weight Bearing as Jennifer Follow up Referrals: PCP Follow-up - 1 Week Podiatry - 1 Week Vascular Surgery @ Vascular Surgery with Lyndon Mcgrath MD New Medications: Clopidogrel (Plavix) 75 Mg Tab 75 MG PO DAILY, #30 TAB Collagenase (Santyl) 250 Unit/Gram Oin 1 APPLIC TOPICAL DAILY, #1 TUBE Ferrous Sulfate (Ferosul) 325 Mg (65 Mg Iron) Tablet 325 MG PO DAILY, #30 TAB Continued Medications: Atorvastatin (Atorvastatin) 40 Mg Tab 40 MG PO HS for Cholesterol Management, #30 TAB 0 Refills Gabapentin (Gabapentin) 400 Mg Cap 400 MG PO TID, #270 CAP 3 Refills Insulin Detemir Inj (Levemir Inj) 1,000 unit/ 10 ML Vial 5 UNITS SQ BID for Blood Sugar Management, VIAL 0 Refills Do not mix with any other Insulin. Midodrine (Midodrine) 5 Mg Tab 5 MG PO TID for Control Low Blood Pressure, #90 TAB 0 Refills Sitagliptin (Januvia) 100 Mg Tab 100 MG PO DAILY for Blood Sugar Management, #30 TAB 0 Refills Discontinued Medications: Cephalexin (Keflex) 500 Mg Cap 500 MG PO Q6H for Infection for 10 Days, #40 CAP 0 Refills Sulfamethoxazole-Trimethoprim (Bactrim DS) 800-160 Mg Tab 1 TAB PO BID for Infection for 10 Days, #20 TAB 0 Refills Lai Ellis MD R3 Oct 31, 2017 10:20
[2017-10-31] MEDS: ERTAPENEM INJ 1,000 MG in SODIUM CHLORIDE 0.9% INJ 100 ML IV SCH (12:01)
[2017-10-31] MEDS: ATORVASTATIN 40 MG TAB PO SCH (20:44)
[2017-10-31] MEDS ORDERED: PHARMACY ORDERED LAB ONE (20:45)
[2017-10-31] MEDS ORDERED: VANCOMYCIN INJ 800 MG in SODIUM CHLOR 0.9% 250 ML INJ 250 ML IV SCH (21:00)
[2017-10-31] MEDS ORDERED: SODIUM CHLORID 0.9% 500 ML INJ 500 ML IV ONE (23:15)
[2017-11-01] VITALS: BP 129/69; PULSE 88; RESP 20; TEMP 98.6; O2SAT 97
[2017-11-01 04:00] VITALS: BP 124/67; PULSE 87; RESP 18; TEMP 98.2; O2SAT 98
[2017-11-01 08:00] VITALS: BP 104/57; PULSE 94; RESP 18; TEMP 97.5; O2SAT 100
[2017-11-01] MEDS: CLOPIDOGREL 75 MG TAB PO SCH (09:02)
[2017-11-01] MEDS: VANCOMYCIN INJ 700 MG in SODIUM CHLOR 0.9% 250 ML INJ 250 ML IV SCH ×2 (09:02→20:47)
[2017-11-01] MEDS: FERROUS SULFATE 325 MG (65 MG ELEMENTAL IRON) TAB PO SCH (09:03)
[2017-11-01] MEDS: HEPARIN SODIUM - SQ 10,000 UNITS/ML VIAL SQ SCH ×2 (09:04→16:39)
[2017-11-01] MEDS: GABAPENTIN 400 MG CAP PO SCH ×3 (09:04→17:03)
[2017-11-01] MEDS: INSULIN DETEMIR 100 UNITS/ML VIAL SQ SCH ×2 (09:04→20:45)
[2017-11-01] MEDS: INSULIN ASPART SUPPLEMENTAL SCALE SQ SCH ×4 (09:04→20:46)
[2017-11-01] MEDS: DOCUSATE SODIUM 50 MG/SENNA 8.6 MG TAB PO SCH ×2 (09:05→20:47)
[2017-11-01] MEDS: COLLAGENASE OINT 30 GM TUBE TOPICAL SCH (09:05)
[2017-11-01] MEDS: SODIUM CHLORIDE 0.9% FLUSH 10 ML FLUSH IV FLUSH SCH ×2 (09:05→20:47)
--- NOTE | 2017-11-01 09:23 | HHI.FPPN ---
Subjective Remarks No acute events overnight. She did require a fluid bolus overnight for hypotension. She has no lightheadedness this morning. No chest pain or shortness of breath. No abdominal pain, nausea, vomiting, diarrhea. No calf tenderness or edema. (Lai Ellis MD R3) Objective Vitals Vital Signs Date Time Temp Pulse Resp B/P (MAP) Pulse Ox O2 Delivery O2 Flow Rate FiO2 11/01/17 04:00 98.2 87 18 124/67 (86) 98 11/01/17 00:00 98.6 88 20 129/69 (89) 97 10/31/17 22:45 81 19 80/51 (61) 96 10/31/17 20:00 98.3 85 17 96/55 (69) 96 10/31/17 15:39 98.3 91 18 117/56 (76) 100 10/31/17 11:52 98.7 91 18 141/67 (91) 97 I/O 10/31/17 10/31/17 10/31/17 11/01/17 11/01/17 11/01/17 07:00 15:00 23:00 07:00 15:00 23:00 Intake Total 480 ml 240 ml Output Total 1000 ml 500 ml 400 ml Balance -520 ml -500 ml -160 ml Intake Oral 480 ml 240 ml Output Urine Total 1000 ml 500 ml 400 ml # Voids 2 1 3 # Bowel Movements 0 0 0 (Lai Ellis MD R3) Result Diagram: 10/31/17 0600 10/31/17 0600 Objective Remarks General: Sitting on edge of bed, no distress, good spirits Skin: has ulcer at base of left great toe partially covered by eschar. No purulent drainage. Mild erythema surrounding the wound. No abscess formation. ( examined previously) HEENT: Normocephalic, no nasal discharge CV: RRR, no murmurs, rubs, or gallops, normal pulses and capillary refill. Dorsalis pedis and PT pulses intact but weak. Lungs: CTAB Abdomen: Soft, nontender, nondistended, normal bowel sounds Ext: No edema : No CVA tenderness Procedures Angiogram with balloon angioplasty 10/25/17 (Lai Ellis MD R3) A/P Assessment and Plan 52 y/o F presented to the ED after a fall at home with syncope. Also with ulcer with eschar at base of left great toe. Wound culture with MRSA and ESBL E coli. Will need assisted IV antibiotics. She is status post angioplasty of her left leg for peripheral artery disease. She also has diabetes. Discharge Planning Will need care home facility versus inpatient rehabilitation, working with case management to make arrangements. Will receive long-term antibiotics via port. Discussed with case management, she will likely go to a SNF. (Lai Ellis MD R3) Attending Attestation Patient seen and examined. Case reviewed and discussed with the resident team. Agree with plan of care as discussed with me and documented in the resident note. her orthostatic hypotension did improve with midodrine (Felicia Herrera MD) Problem List: (1) Chronic foot ulcer ICD Codes: L97.509 - Chronic foot ulcer Status: Chronic Plan: Base of left great toe ulcer partially covered by eschar. History of polyneuropathy. Arterial segmental Doppler suggesting peripheral arterial disease, worse on left. X-ray of foot with erosive changes. Tagged WBC scan showing no osteomyelitis. Culture of wound growing MRSA and ESBL E Coli and gram negative rods. Now status post angioplasty. - Podiatry on board. - Infectious disease on board. - Vascular surgery on board. - Angiogram with balloon angioplasty performed 10/25/17. - Continue Plavix 75 mg daily. - Vancomycin to cover MRSA, Ertapenem to cover ESBL E coli. Will need for several weeks, administer through port. - Physical therapy on board. - Follow up in wound care center after discharge. - Educate on diabetic control - For peripheral arterial disease, recommend no smoking and a graded exercise routine. - Will likely go to SNF versus inpatient rehab. - Per podiatry: Santyl ointment daily to plantar wound of left foot. Follow up in wound center, likely get debridement at that time. (2) Syncope ICD Codes: R55 - Syncope and collapse Status: Resolved Plan: Patient with recent episode of syncope with reassuring exam. Orthostatic hypotension versus dysautonomia versus mechanical fall versus TIA/CVA. CT head: No acute intracranial abnormalities. Chest x-ray: No focal consolidation. Hip/ pelvis x-ray: No acute findings. Mild osteoarthritis of the bilateral hips. Orthostatic vital signs: Consistent with orthostatic hypotension. She has a long history of severe orthostasis especially with chemo but this could also be related to her DM so this is the most likely cause. - Physical therapy on board. - Fall precautions ordered. - Monitor hydration status. - At discharge, will need SNF versus inpatient rehab, with physical therapy. - Counseled on sitting up/standing slowly when at home. - Midodrine increased to 10 mg tid. (3) DM (diabetes mellitus), type 2, uncontrolled w/neurologic complication ICD Codes: E11.49 - Type 2 diabetes mellitus with other diabetic neurological complication; E11.65 - Type 2 diabetes mellitus with hyperglycemia Status: Chronic Plan: Patient with history of type 2 diabetes with polyneuropathy, euglycemic. - Continue home gabapentin - Levemir 5 units twice a day - Hold Januvia - Sliding-scale insulin per protocol (4) Hepatitis C ICD Codes: B19.20 - Unspecified viral hepatitis C without hepatic coma Status: Chronic Plan: Patient with history of hepatitis C, no transaminitis. (5) Thickened endometrium ICD Codes: R93.8 - Abnormal findings on diagnostic imaging of other specified body structures Status: Chronic Plan: Thickened endometrium noted on prior CT abdomen, with recommendation for transvaginal ultrasound for further evaluation as an outpatient. Also with lingular density seen on prior CT abdomen, with recommendation for repeat CT scan at regular intervals to assess stability. (6) Nutrition, metabolism, and development symptoms ICD Codes: R63.8 - Other symptoms and signs concerning food and fluid intake Status: Acute Plan: Fluids: PO Electrolytes: Monitor and replace as needed Nutrition: Diabetic diet (7) No contraindication to deep vein thrombosis (DVT) prophylaxis ICD Codes: Z78.9 - Other specified health status Status: Acute Plan: -Heparin 5000 units (Lai Ellis MD R3) Problem Qualifiers (1) Chronic foot ulcer: Qualified Codes: L97.522 - Non-pressure chronic ulcer of other part of left foot with fat layer exposed (2) Syncope: Qualified Codes: R55 - Syncope and collapse (3) DM (diabetes mellitus), type 2, uncontrolled w/neurologic complication: Qualified Codes: E11.42 - Type 2 diabetes mellitus with diabetic polyneuropathy ; E11.65 - Type 2 diabetes mellitus with hyperglycemia (4) Hepatitis C: Lai Ellis MD R3 Nov 01, 2017 09:23 Felicia Herrera MD Nov 01, 2017 11:17
--- NOTE | 2017-11-01 10:59 | HHI.FF ---
Face to Face Verification Diagnosis: (1) COPD (chronic obstructive pulmonary disease) (2) Frequent falls (3) Orthostatic hypotension (4) Thickened endometrium (5) Generalized weakness (6) PAD (peripheral artery disease) (7) Diabetic foot ulcer (8) Diabetic foot infection Physical Therapy Order: Evaluate and Treat, Improve ambulation, Strength and gait training Occupational Therapy Order: Evaluate and Treat, Improve ADL, Gross motor coordination, Fine motor coordination Home Health Nursing Order: Medical education Signs/symptoms of disease process Nursing assessment with vital signs IV medication administration Instructions: IV antibiotic administration via port I have seen patient Jaqueline Arechiga on 11/01/17. My clinical findings support the need for the requested home health care services because: Ltd mobility - disease progression Deconditioned w/ increased weakness Limited ability to care for self High risk of falls Injectable med education/admin I certify that my clinical findings support that this patient is homebound because: Unsteady gait/balance Need for psychosocial assistance Lai Ellis MD R3 Nov 01, 2017 10:59
[2017-11-01] MEDS ORDERED: MIDO5TAB PO (11:01)
[2017-11-01 12:00] VITALS: BP 110/61; PULSE 94; RESP 18; TEMP 98.3; O2SAT 100
--- NOTE | 2017-11-01 12:28 | HHI.FF ---
Infusion Therapy Location of Infusion Therapy: Home Health Care IV Infusion Order Patient Information Patient Weight 66 kg Diagnosis: Diagnosis Wound infection with cellulitis of the great toe. MRSA/ ESBL E. coli Coded Allergies: tramadol (Verified Allergy, Intermediate, Rash, 10/19/17) MRI PRECAUTION (Verified Adverse Reaction, Severe, PACEMAKER IS NOT A BIOTRONIK OR MEDTRONIC 06/15/16 KMD, 10/19/17) PACEMAKER IS NOT A BIOTRONIK OR MEDTRONIC CONDITIONAL PACEMAKER. CALLED BOTH COMPANIES TO CONFIRM. metformin (Verified Adverse Reaction, Severe, DIARRHEA, 10/19/17) morphine (Verified Adverse Reaction, Severe, Dizziness, 10/19/17) oxycodone (Verified Adverse Reaction, Severe, Nausea/Vomiting, 10/19/17) prochlorperazine (Verified Adverse Reaction, Severe, ANXIETY, 10/19/17) ANXIETY Administer Medication Vancomycin 1.5 grams IV q 24 hours Start Treatment: Nov 20, 2017 Administer Medication Ertapenem 1 gram IV q 24 hours Stop Treatment: Nov 20, 2017 Additional Information Venous access: PICC Line Additional Instructions [x] Peripheral flush and dressing changes per protocol [x] Implanted port and central online advertising manager: * Implanted port: 10 ml Normal Saline followed by 5 ml Heparin 100 units/ml Heparin flush after each use and monthly to maintain. [] May leave port accessed during therapy. [] May leave peripheral site accessed for duration of therapy. [x] If patient has SOB or respiratory distress, check oxygen saturation. If less than 90% or clinical signs of respiratory distress, administer oxygen at 2 L/min. via nasal cannula and notify physician. [x] Anaphylaxis/Reaction orders: * Stop infusion. * Keep IV line open with saline flush. * Notify physician. * Monitor vital signs every 15 minutes until symptoms resolve. * Check Oxygen saturation; Oxygen at 2 L/min. via nasal cannula if less than 90% or clinical signs of respiratory distress. * Administer diphenhydramine (Benadryl) 25 mg IV STAT, (unless patient has received as pre-med). May repeat once, if necessary. * Solu-Cortef 250 mg IVP over 30-60 seconds, use 100 mg vials for each dissolution. * Epinephrine (1mg/1 ml) 0.3 mg subcutaneously or IVP now with any signs of respiratory distress. * Check with physician for new additional pre-med orders if patient is re- challenged or re-treated. [x] May remove PICC line when treatment complete, after confirming with Physician. [x] If the patient is admitted to the hospital, the ED, or transferred via [facility] , complete transfer form including medication reconciliation order sheet. Laboratory Tests Weekly Labs: CBC w/diff, Vancomycin Trough Additional Information BMP Q 3 days while on vancomycin. Fax results to Dr. Valencia [phone] Mo Valencia MD Nov 01, 2017 12:28
[2017-11-01] MEDS: MIDODRINE 5 MG TAB PO SCH ×2 (12:42→16:39)
[2017-11-01] MEDS: ERTAPENEM INJ 1,000 MG in SODIUM CHLORIDE 0.9% INJ 100 ML IV SCH ×2 (12:45→13:34)
[2017-11-01 16:00] VITALS: BP 153/68; PULSE 94; RESP 18; TEMP 98; O2SAT 100
[2017-11-01 20:00] VITALS: BP 114/56; PULSE 86; RESP 17; TEMP 98.3; O2SAT 97
[2017-11-01] MEDS: ATORVASTATIN 40 MG TAB PO SCH (20:47)
[2017-11-02] VITALS: BP 162/77; PULSE 92; RESP 18; TEMP 98.1; O2SAT 100
[2017-11-02] MEDS: HEPARIN SODIUM - SQ 10,000 UNITS/ML VIAL SQ SCH ×3 (00:15→17:26)
[2017-11-02 04:00] VITALS: BP 134/63; PULSE 89; RESP 18; TEMP 98.3; O2SAT 100
[2017-11-02] MEDS: MIDODRINE 5 MG TAB PO SCH ×3 (06:32→17:26)
[2017-11-02 08:00] VITALS: BP 146/69; PULSE 90; RESP 18; TEMP 98; O2SAT 99
[2017-11-02] MEDS: INSULIN DETEMIR 100 UNITS/ML VIAL SQ SCH ×2 (08:37→20:46)
[2017-11-02] MEDS: FERROUS SULFATE 325 MG (65 MG ELEMENTAL IRON) TAB PO SCH (08:38)
[2017-11-02] MEDS: INSULIN ASPART SUPPLEMENTAL SCALE SQ SCH ×4 (08:38→20:47)
[2017-11-02] MEDS: GABAPENTIN 400 MG CAP PO SCH ×3 (08:38→17:26)
[2017-11-02] MEDS: VANCOMYCIN INJ 700 MG in SODIUM CHLOR 0.9% 250 ML INJ 250 ML IV SCH (08:39)
[2017-11-02] MEDS: CLOPIDOGREL 75 MG TAB PO SCH (08:39)
[2017-11-02] MEDS: SODIUM CHLORIDE 0.9% FLUSH 10 ML FLUSH IV FLUSH SCH ×2 (08:39→20:46)
[2017-11-02] MEDS: COLLAGENASE OINT 30 GM TUBE TOPICAL SCH (08:40)
[2017-11-02] MEDS: DOCUSATE SODIUM 50 MG/SENNA 8.6 MG TAB PO SCH ×3 (08:40→20:53)
[2017-11-02] MEDS ORDERED: PHARMACY ORDERED LAB ONE (08:45)
--- NOTE | 2017-11-02 10:48 | HHI.FPPN ---
Subjective Remarks Sitting up on edge of bed, no distress. Reports no lightheadedness overnight. Reports that the increased midodrine dose is helping her feelings of lightheadedness. Was able to walk without significant feelings of lightheadedness. Reports no chest pain, shortness of breath, abdominal pain, nausea, vomiting, diarrhea. Reports no calf tenderness or swelling. Getting dressing changes every other day. Reports no changes in her foot infection. (Lai Ellis MD R3) Objective Vitals Vital Signs Date Time Temp Pulse Resp B/P (MAP) Pulse Ox O2 Delivery O2 Flow Rate FiO2 11/02/17 08:00 98.0 90 18 146/69 (94) 99 11/02/17 04:00 98.3 89 18 134/63 (86) 100 11/02/17 00:00 98.1 92 18 162/77 (105) 100 11/01/17 20:00 98.3 86 17 114/56 (75) 97 11/01/17 16:00 98.0 94 18 153/68 (96) 100 11/01/17 12:00 98.3 94 18 110/61 (77) 100 I/O 11/01/17 11/01/17 11/01/17 11/02/17 11/02/17 11/02/17 07:00 15:00 23:00 07:00 15:00 23:00 Intake Total 350 ml Balance 350 ml IV Total 350 ml # Voids 3 3 3 # Bowel Movements 0 2 2 (Lai Ellis MD R3) Result Diagram: 10/31/17 0600 10/31/17 0600 Objective Remarks General: Sitting on edge of bed, no distress Skin: has ulcer at base of left great toe partially covered by eschar. No purulent drainage. Mild erythema surrounding the wound. No abscess formation. ( examined previously) HEENT: Normocephalic, no nasal discharge CV: RRR, no murmurs, rubs, or gallops, normal pulses and capillary refill. Dorsalis pedis and PT pulses intact but weak. Lungs: CTAB Abdomen: Soft, nontender, nondistended, normal bowel sounds Ext: No edema : No CVA tenderness Procedures Angiogram with balloon angioplasty 10/25/17 (Lai Ellis MD R3) A/P Assessment and Plan 52 y/o F presented to the ED after a fall at home with syncope. Also with ulcer with eschar at base of left great toe. Wound culture with MRSA and ESBL E coli. Will need keno terminal operator IV antibiotics. She is status post angioplasty of her left leg for peripheral artery disease. She also has diabetes. Discharge Planning Unfortunately does not qualify for inpatient rehab. Will likely go home with home health care and PT/OT. She will need to be set up with an outpatient infusion center to receive her long-term antibiotics, which she will receive via her infusion port. Case management is working diligently to get everything set up for her discharge. (Lai Ellis MD R3) Attending Attestation Patient seen and examined. Case reviewed and discussed with the resident team. Agree with plan of care as discussed with me and documented in the resident note. stable overall and definitely improved with her infection (Felicia Herrera MD) Problem List: (1) Chronic foot ulcer ICD Codes: L97.509 - Chronic foot ulcer Status: Chronic Plan: Base of left great toe ulcer partially covered by eschar. History of polyneuropathy. Arterial segmental Doppler suggesting peripheral arterial disease, worse on left. X-ray of foot with erosive changes. Tagged WBC scan showing no osteomyelitis. Culture of wound growing MRSA and ESBL E Coli and gram negative rods. Now status post angioplasty. - Podiatry on board. - Infectious disease on board. - Vascular surgery on board. - Angiogram with balloon angioplasty performed 10/25/17. - Continue Plavix 75 mg daily. - Vancomycin to cover MRSA, Ertapenem to cover ESBL E coli. Will need for several weeks, administer through port. - Physical therapy on board. - Follow up in wound care center after discharge. - Educate on diabetic control - For peripheral arterial disease, recommend no smoking and a graded exercise routine. - Will likely go to SNF versus inpatient rehab. - Per podiatry: Santyl ointment daily to plantar wound of left foot. Follow up in wound center, likely get debridement at that time. (2) Syncope ICD Codes: R55 - Syncope and collapse Status: Resolved Plan: Patient with recent episode of syncope with reassuring exam. Orthostatic hypotension versus dysautonomia versus mechanical fall versus TIA/CVA. CT head: No acute intracranial abnormalities. Chest x-ray: No focal consolidation. Hip/ pelvis x-ray: No acute findings. Mild osteoarthritis of the bilateral hips. Orthostatic vital signs: Consistent with orthostatic hypotension. She has a long history of severe orthostasis especially with chemo but this could also be related to her DM so this is the most likely cause. - Physical therapy on board. - Fall precautions ordered. - Monitor hydration status. - At discharge, will need SNF versus inpatient rehab, with physical therapy. - Counseled on sitting up/standing slowly when at home. - Midodrine increased to 10 mg tid. (3) DM (diabetes mellitus), type 2, uncontrolled w/neurologic complication ICD Codes: E11.49 - Type 2 diabetes mellitus with other diabetic neurological complication; E11.65 - Type 2 diabetes mellitus with hyperglycemia Status: Chronic Plan: Patient with history of type 2 diabetes with polyneuropathy, euglycemic. - Continue home gabapentin - Levemir 5 units twice a day - Hold Januvia - Sliding-scale insulin per protocol (4) Hepatitis C ICD Codes: B19.20 - Unspecified viral hepatitis C without hepatic coma Status: Chronic Plan: Patient with history of hepatitis C, no transaminitis. (5) Thickened endometrium ICD Codes: R93.8 - Abnormal findings on diagnostic imaging of other specified body structures Status: Chronic Plan: Thickened endometrium noted on prior CT abdomen, with recommendation for transvaginal ultrasound for further evaluation as an outpatient. Also with lingular density seen on prior CT abdomen, with recommendation for repeat CT scan at regular intervals to assess stability. (6) Nutrition, metabolism, and development symptoms ICD Codes: R63.8 - Other symptoms and signs concerning food and fluid intake Status: Acute Plan: Fluids: PO Electrolytes: Monitor and replace as needed Nutrition: Diabetic diet (7) No contraindication to deep vein thrombosis (DVT) prophylaxis ICD Codes: Z78.9 - Other specified health status Status: Acute Plan: -Heparin 5000 units (Lai Ellis MD R3) Problem Qualifiers (1) Chronic foot ulcer: Qualified Codes: L97.522 - Non-pressure chronic ulcer of other part of left foot with fat layer exposed (2) Syncope: Qualified Codes: R55 - Syncope and collapse (3) DM (diabetes mellitus), type 2, uncontrolled w/neurologic complication: Qualified Codes: E11.42 - Type 2 diabetes mellitus with diabetic polyneuropathy ; E11.65 - Type 2 diabetes mellitus with hyperglycemia (4) Hepatitis C: Lai Ellis MD R3 Nov 02, 2017 10:48 Felicia Herrera MD Nov 03, 2017 13:25
[2017-11-02 12:00] VITALS: BP 101/61; PULSE 92; RESP 18; TEMP 98.8; O2SAT 100
[2017-11-02] MEDS: ERTAPENEM INJ 1,000 MG in SODIUM CHLORIDE 0.9% INJ 100 ML IV SCH (12:54)
--- NOTE | 2017-11-02 15:21 | HHI.FF ---
Infusion Therapy Location of Infusion Therapy: Home Health Care IV Infusion Order Patient Information Patient Weight 65.9 kg Diagnosis: Diagnosis Wound infection with cellulitis of the great toe. MRSA/ ESBL E. coli Coded Allergies: tramadol (Verified Allergy, Intermediate, Rash, 10/19/17) MRI PRECAUTION (Verified Adverse Reaction, Severe, PACEMAKER IS NOT A BIOTRONIK OR MEDTRONIC 06/15/16 KMD, 10/19/17) PACEMAKER IS NOT A BIOTRONIK OR MEDTRONIC CONDITIONAL PACEMAKER. CALLED BOTH COMPANIES TO CONFIRM. metformin (Verified Adverse Reaction, Severe, DIARRHEA, 10/19/17) morphine (Verified Adverse Reaction, Severe, Dizziness, 10/19/17) oxycodone (Verified Adverse Reaction, Severe, Nausea/Vomiting, 10/19/17) prochlorperazine (Verified Adverse Reaction, Severe, ANXIETY, 10/19/17) ANXIETY Administer Medication Vancomycin 1.5 grams IV q 24 hours Stop Treatment: Nov 20, 2017 Administer Medication Ertapenem 1 gram IV q 24 hours Stop Treatment: Nov 20, 2017 Additional Information Venous access: PICC Line Additional Instructions [x] Peripheral flush and dressing changes per protocol [x] Implanted port and central gas main and line fitter: * Implanted port: 10 ml Normal Saline followed by 5 ml Heparin 100 units/ml Heparin flush after each use and monthly to maintain. [] May leave port accessed during therapy. [] May leave peripheral site accessed for duration of therapy. [x] If patient has SOB or respiratory distress, check oxygen saturation. If less than 90% or clinical signs of respiratory distress, administer oxygen at 2 L/min. via nasal cannula and notify physician. [x] Anaphylaxis/Reaction orders: * Stop infusion. * Keep IV line open with saline flush. * Notify physician. * Monitor vital signs every 15 minutes until symptoms resolve. * Check Oxygen saturation; Oxygen at 2 L/min. via nasal cannula if less than 90% or clinical signs of respiratory distress. * Administer diphenhydramine (Benadryl) 25 mg IV STAT, (unless patient has received as pre-med). May repeat once, if necessary. * Solu-Cortef 250 mg IVP over 30-60 seconds, use 100 mg vials for each dissolution. * Epinephrine (1mg/1 ml) 0.3 mg subcutaneously or IVP now with any signs of respiratory distress. * Check with physician for new additional pre-med orders if patient is re- challenged or re-treated. [x] May remove PICC line when treatment complete, after confirming with Physician. [x] If the patient is admitted to the hospital, the ED, or transferred via [facility] , complete transfer form including medication reconciliation order sheet. Laboratory Tests Weekly Labs: CBC w/diff, Vancomycin Trough Additional Information BMP Q 3 days while on vancomycin. Fax results to Dr. Valencia [phone] Mo Valencia MD Nov 02, 2017 15:21
[2017-11-02 16:00] VITALS: BP 154/75; PULSE 93; RESP 18; TEMP 98.6; O2SAT 100
[2017-11-02 20:00] VITALS: BP 108/61; PULSE 87; RESP 18; TEMP 98.2; O2SAT 99
[2017-11-02] MEDS: VANCOMYCIN INJ 600 MG in SODIUM CHLOR 0.9% 250 ML INJ 250 ML IV SCH (20:45)
[2017-11-02] MEDS: ATORVASTATIN 40 MG TAB PO SCH (20:46)
[2017-11-03] VITALS: BP 122/70; PULSE 80; RESP 18; TEMP 98; O2SAT 98
[2017-11-03] MEDS: HEPARIN SODIUM - SQ 10,000 UNITS/ML VIAL SQ SCH ×3 (00:16→16:31)
[2017-11-03 04:00] VITALS: BP 119/70; PULSE 85; RESP 18; TEMP 98.1; O2SAT 93
[2017-11-03] MEDS: MIDODRINE 5 MG TAB PO SCH ×3 (06:15→16:30)
[2017-11-03 07:46] VITALS: BP 119/71; PULSE 89; RESP 18; TEMP 98.3; O2SAT 100
[2017-11-03 07:57] LABS: CREATININE 0.56 MG/DL (0.50-1.00)
[2017-11-03] MEDS: FERROUS SULFATE 325 MG (65 MG ELEMENTAL IRON) TAB PO SCH (08:11)
[2017-11-03] MEDS: GABAPENTIN 400 MG CAP PO SCH ×3 (08:12→16:30)
[2017-11-03] MEDS: VANCOMYCIN INJ 600 MG in SODIUM CHLOR 0.9% 250 ML INJ 250 ML IV SCH (08:12)
[2017-11-03] MEDS: SODIUM CHLORIDE 0.9% FLUSH 10 ML FLUSH IV FLUSH SCH (08:12)
[2017-11-03] MEDS: DOCUSATE SODIUM 50 MG/SENNA 8.6 MG TAB PO SCH (08:12)
[2017-11-03] MEDS: CLOPIDOGREL 75 MG TAB PO SCH (08:13)
[2017-11-03] MEDS: COLLAGENASE OINT 30 GM TUBE TOPICAL SCH (08:13)
[2017-11-03] MEDS: INSULIN ASPART SUPPLEMENTAL SCALE SQ SCH ×3 (08:24→16:49)
[2017-11-03] MEDS: INSULIN DETEMIR 100 UNITS/ML VIAL SQ SCH (08:24)
--- NOTE | 2017-11-03 09:00 | HHI.FPPN ---
Subjective Remarks Sitting on edge of bed, eating, no distress. Has no physical complaints this morning. She is very eager to go home. (Lai Ellis MD R3) Objective Vitals Vital Signs Date Time Temp Pulse Resp B/P (MAP) Pulse Ox O2 Delivery O2 Flow Rate FiO2 11/03/17 07:46 98.3 89 18 119/71 (87) 100 11/03/17 04:00 98.1 85 18 119/70 (86) 93 11/03/17 00:00 98.0 80 18 122/70 (87) 98 11/02/17 20:00 98.2 87 18 108/61 (77) 99 11/02/17 16:00 98.6 93 18 154/75 (101) 100 11/02/17 12:00 98.8 92 18 101/61 (74) 100 I/O 11/02/17 11/02/17 11/02/17 11/03/17 11/03/17 11/03/17 07:00 15:00 23:00 07:00 15:00 23:00 Intake Total 350 ml 650 ml Balance 350 ml 650 ml Intake Oral 400 ml IV Total 350 ml 250 ml # Voids 3 3 1 1 # Bowel Movements 2 1 1 (Lai Ellis MD R3) Result Diagram: 10/31/17 0600 11/03/17 0700 Objective Remarks General: Sitting on edge of bed, eating Skin: has ulcer at base of left great toe partially covered by eschar. No purulent drainage. Mild erythema surrounding the wound. No abscess formation. ( examined previously) HEENT: Normocephalic, no nasal discharge CV: RRR, no murmurs, rubs, or gallops, normal pulses and capillary refill. Dorsalis pedis and PT pulses intact but weak. Lungs: CTAB Abdomen: Soft, nontender, nondistended, normal bowel sounds Ext: No edema : No CVA tenderness Procedures Angiogram with balloon angioplasty 10/25/17 (Lai Ellis MD R3) A/P Assessment and Plan 52 y/o F presented to the ED after a fall at home with syncope. Also with ulcer with eschar at base of left great toe. Wound culture with MRSA and ESBL E coli. Will need snf IV antibiotics. She is status post angioplasty of her left leg for peripheral artery disease. She also has diabetes. Discharge Planning Unfortunately does not qualify for inpatient rehab. Will likely go home with home health care and PT/OT. She will need to be set up with an outpatient infusion center to receive her long-term antibiotics, which she will receive via her infusion port. Case management is working diligently to get everything set up for her discharge. (Lai Ellis MD R3) Attending Attestation Patient seen and examined. Case reviewed and discussed with the resident team. Agree with plan of care as discussed with me and documented in the resident note. hope she can go home soon with [facility] (Felicia Herrera MD) Problem List: (1) Chronic foot ulcer ICD Codes: L97.509 - Chronic foot ulcer Status: Chronic Plan: Base of left great toe ulcer partially covered by eschar. History of polyneuropathy. Arterial segmental Doppler suggesting peripheral arterial disease, worse on left. X-ray of foot with erosive changes. Tagged WBC scan showing no osteomyelitis. Culture of wound growing MRSA and ESBL E Coli and gram negative rods. Now status post angioplasty. - Podiatry on board. - Infectious disease on board. - Vascular surgery on board. - Angiogram with balloon angioplasty performed 10/25/17. - Continue Plavix 75 mg daily. - Vancomycin to cover MRSA, Ertapenem to cover ESBL E coli. Will need for several weeks, administer through port. - Physical therapy on board. - Follow up in wound care center after discharge. - Educate on diabetic control - For peripheral arterial disease, recommend no smoking and a graded exercise routine. - Will likely go to SNF versus inpatient rehab. - Per podiatry: Santyl ointment daily to plantar wound of left foot. Follow up in wound center, likely get debridement at that time. (2) Syncope ICD Codes: R55 - Syncope and collapse Status: Resolved Plan: Patient with recent episode of syncope with reassuring exam. Orthostatic hypotension versus dysautonomia versus mechanical fall versus TIA/CVA. CT head: No acute intracranial abnormalities. Chest x-ray: No focal consolidation. Hip/ pelvis x-ray: No acute findings. Mild osteoarthritis of the bilateral hips. Orthostatic vital signs: Consistent with orthostatic hypotension. She has a long history of severe orthostasis especially with chemo but this could also be related to her DM so this is the most likely cause. - Physical therapy on board. - Fall precautions ordered. - Monitor hydration status. - At discharge, will need SNF versus inpatient rehab, with physical therapy. - Counseled on sitting up/standing slowly when at home. - Midodrine increased to 10 mg tid. (3) DM (diabetes mellitus), type 2, uncontrolled w/neurologic complication ICD Codes: E11.49 - Type 2 diabetes mellitus with other diabetic neurological complication; E11.65 - Type 2 diabetes mellitus with hyperglycemia Status: Chronic Plan: Patient with history of type 2 diabetes with polyneuropathy, euglycemic. - Continue home gabapentin - Levemir 5 units twice a day - Hold Januvia - Sliding-scale insulin per protocol (4) Hepatitis C ICD Codes: B19.20 - Unspecified viral hepatitis C without hepatic coma Status: Chronic Plan: Patient with history of hepatitis C, no transaminitis. (5) Thickened endometrium ICD Codes: R93.8 - Abnormal findings on diagnostic imaging of other specified body structures Status: Chronic Plan: Thickened endometrium noted on prior CT abdomen, with recommendation for transvaginal ultrasound for further evaluation as an outpatient. Also with lingular density seen on prior CT abdomen, with recommendation for repeat CT scan at regular intervals to assess stability. (6) Nutrition, metabolism, and development symptoms ICD Codes: R63.8 - Other symptoms and signs concerning food and fluid intake Status: Acute Plan: Fluids: PO Electrolytes: Monitor and replace as needed Nutrition: Diabetic diet (7) No contraindication to deep vein thrombosis (DVT) prophylaxis ICD Codes: Z78.9 - Other specified health status Status: Acute Plan: -Heparin 5000 units (Lai Ellis MD R3) Problem Qualifiers (1) Chronic foot ulcer: Qualified Codes: L97.522 - Non-pressure chronic ulcer of other part of left foot with fat layer exposed (2) Syncope: Qualified Codes: R55 - Syncope and collapse (3) DM (diabetes mellitus), type 2, uncontrolled w/neurologic complication: Qualified Codes: E11.42 - Type 2 diabetes mellitus with diabetic polyneuropathy ; E11.65 - Type 2 diabetes mellitus with hyperglycemia (4) Hepatitis C: Lai Ellis MD R3 Nov 03, 2017 09:00 Felicia Herrera MD Nov 03, 2017 13:25
[2017-11-03 11:36] VITALS: BP 130/61; PULSE 82; RESP 17; TEMP 98.4; O2SAT 99
[2017-11-03] MEDS: ERTAPENEM INJ 1,000 MG in SODIUM CHLORIDE 0.9% INJ 100 ML IV SCH (11:51)
[2017-11-03 15:44] VITALS: BP 101/60; PULSE 87; RESP 18; TEMP 98.3; O2SAT 100
[2017-11-04] MEDS ORDERED: PHARMACY ORDERED LAB ONE (08:45)
== END 2017-11-03 18:50 | disposition home health service (06) | DRG 253 ==
LOC: NEPD 18:13 → NEDA 21:28 → NEPFCDU 23:32 → OBSVTOIN 10-25 16:29 → HCIS 10-25 16:41 → HCPC 10-25 17:47 → N05A 10-29 23:08 → HCPC 10-29 23:08
PROVIDERS: ADMIT Family Medicine; ATTEND Family Medicine
PROC: B41D1ZZ Fluoroscopy of Aorta and Bilateral Lower Extremity Arteries using Low Osmolar Contrast (ICD-10-PCS; 2017-10-25)
PROC: 047U3ZZ Dilation of Left Peroneal Artery, Percutaneous Approach (ICD-10-PCS; principal; 2017-10-25 16:00)
DX: I95.1 Orthostatic hypotension (principal); N39.0 Urinary tract infection, site not specified; E11.43 Type 2 diabetes mellitus with diabetic autonomic (poly)neuropathy; E11.51 Type 2 diabetes mellitus with diabetic peripheral angiopathy without gangrene; E11.628 Type 2 diabetes mellitus with other skin complications; E11.49 Type 2 diabetes mellitus with other diabetic neurological complication; E11.65 Type 2 diabetes mellitus with hyperglycemia; Z79.4 Long term (current) use of insulin; Z91.19 Patient's noncompliance with other medical treatment and regimen; W19.XXXA Unspecified fall, initial encounter; Y92.009 Unspecified place in unspecified non-institutional (private) residence as the place of occurrence of the external cause; M16.0 Bilateral primary osteoarthritis of hip; Z89.421 Acquired absence of other right toe(s); Z16.12 Extended spectrum beta lactamase (ESBL) resistance; B95.62 Methicillin resistant Staphylococcus aureus infection as the cause of diseases classified elsewhere; B96.20 Unspecified Escherichia coli [E. coli] as the cause of diseases classified elsewhere; Z91.120 Patient's intentional underdosing of medication regimen due to financial hardship; L97.529 Non-pressure chronic ulcer of other part of left foot with unspecified severity; B19.20 Unspecified viral hepatitis C without hepatic coma; R93.8 Abnormal findings on diagnostic imaging of other specified body structures; Z85.810 Personal history of malignant neoplasm of tongue; K08.9 Disorder of teeth and supporting structures, unspecified; Z92.3 Personal history of irradiation; Z92.21 Personal history of antineoplastic chemotherapy; E78.5 Hyperlipidemia, unspecified; E78.1 Pure hyperglyceridemia; Z95.0 Presence of cardiac pacemaker; Z87.891 Personal history of nicotine dependence; Z87.440 Personal history of urinary (tract) infections
CPT/HCPCS: 37228; 70450; 71010; 73502; 73630; 75710; 78807; 78999; 80048; 80053; 80061; 80202; 81001; 82550; 82565; 82607; 82728; 82746; 82948; 83540; 83550; 83605; 83735; 84484; 85025; 85027; 86403; 87040; 87070; 87077; 87086; 87147; 87185; 87186; 87205; 93005; 93923; 96361; 96365; 96366; 96372; 99152; 99153; A9569; C1725; C1751; C1760; C1769; C1893; G0269; G0378; G8987-GP; G8988-GP; J0295; J1335; J1642; J1644; J1815; J2250; J2543; J3010; J3370; J7030; J7040; J7050; Q9967

== ENCOUNTER 2017-11-11 15:58 | Emergency (ER) | payer MEDICARE ==
[~2017-11-11 15:58] MED LIST changes: -BACT800T5 PO; -CEPH-460 PO; +COLL30T TOPICAL; +FERR325T20 PO; +PLAV75TA29 PO
[2017-11-11 16:13] VITALS: BP 131/61; PULSE 97; RESP 16; TEMP 97.7; O2SAT 99
--- NOTE | 2017-11-11 16:45 | PD ---
HPI Chief Complaint: GI Complaint Time Seen by Provider: 16:21 Travel History International Travel<30 days: No Contact w/Intl Traveler<30days: No Traveled to known affect area: No History of Present Illness HPI The patient was seen and examined in the presence of the nurse. This patient complains of one day of diarrhea with some abdominal cramping. No nausea or vomiting. Symptoms severity is mild. No fever. No alleviating factors. PFSH Past Medical History Hx Anticoagulant Therapy: No Arthritis: No Asthma: Yes Atrial Fibrillation: Yes Autoimmune Disease: No Blood Disorders: No Anxiety: No Depression: No Heart Rhythm Problems: Yes (Pacemaker) Cancer: Yes (throat) Cardiovascular Problems: Yes High Cholesterol: No Chemotherapy: Yes Chest Pain: No Congestive Heart Failure: No COPD: Yes Cerebrovascular Accident: Yes Diabetes: Yes Patient Takes Glucophage: Yes Diminished Hearing: No Endocrine: Yes Gastrointestinal Disorders: Yes (esophagitis, gastritis, pancreantitis, HEP C) GERD: No Glaucoma: No Genitourinary: Yes Headaches: Yes Hepatitis: Yes (HEP C) Hiatal Hernia: No Heparin Induced Thrombocytopen: No Hypertension: Yes Immune Disorder: No Implanted Vascular Access Dvce: Yes (PORT R CHEST) Kidney Stones: Yes Musculoskeletal: Yes Neurologic: Yes (diabetic peripheral neuropathy) Psychiatric: No Reproductive: No Respiratory: Yes Immunizations Current: Yes Migraines: Yes Myocardial Infarction: No Pancreatitis: Yes Radiation Therapy: Yes Renal Failure: No Seizures: No Sickle Cell Disease: No Sleep Apnea: No Thyroid Disease: No Triglycerides - High: Yes Ulcer: No PNEUMOCCOCAL Vaccine (Year): 2 ?: Not Menopausal: Yes : 3 Para: 2 Miscarriage: 1 : 0 Ectopic : No Ovarian Cysts: No Tubal Ligation: No Past Surgical History Abdominal Surgery: Yes (appendectomy, cholecystectomy) AICD: No Appendectomy: Yes Arteriovenous Shunt: No Body Medical Devices: pacemaker Cardiac Surgery: Yes (pacemaker, lt femoral stent) Section: Yes (x1) Cholecystectomy: Yes Ear Surgery: No Endocrine Surgery: No Eye Surgery: No Genitourinary Surgery: No Hysterectomy: No Insulin Pump: No Joint Replacement: No Neurologic Surgery: No Oral Surgery: Yes (tonsillectomy) Pacemaker: Yes Thoracic Surgery: No Tonsillectomy: Yes Other Surgery: Yes (port placed 2016) Social History Alcohol Use: No Tobacco Use: No Substance Use: No ( ) Allergies-Medications (Allergen,Severity, Reaction): Coded Allergies: tramadol (Verified Allergy, Intermediate, Rash, 10/19/17) MRI PRECAUTION (Verified Adverse Reaction, Severe, PACEMAKER IS NOT A BIOTRONIK OR MEDTRONIC 06/15/16 KMD, 10/19/17) PACEMAKER IS NOT A BIOTRONIK OR MEDTRONIC CONDITIONAL PACEMAKER. CALLED BOTH COMPANIES TO CONFIRM. metformin (Verified Adverse Reaction, Severe, DIARRHEA, 10/19/17) morphine (Verified Adverse Reaction, Severe, Dizziness, 10/19/17) oxycodone (Verified Adverse Reaction, Severe, Nausea/Vomiting, 10/19/17) prochlorperazine (Verified Adverse Reaction, Severe, ANXIETY, 10/19/17) ANXIETY Reported Meds & Prescriptions Reported Meds & Active Scripts Active Midodrine 5 Mg Tab 10 Mg PO TID@ Santyl (Collagenase) 250 Unit/Gram Oin 1 Applic TOPICAL DAILY Plavix (Clopidogrel Bisulfate) 75 Mg Tab 75 Mg PO DAILY Ferosul (Ferrous Sulfate) 325 Mg (65 Mg Iron) Tablet 325 Mg PO DAILY Gabapentin 400 Mg Cap 400 Mg PO TID Reported Atorvastatin (Atorvastatin Calcium) 40 Mg Tab 40 Mg PO HS Januvia (Sitagliptin Phosphate) 100 Mg Tab 100 Mg PO DAILY Levemir Inj (Insulin Detemir) 1,000 unit/ 10 ML Vial 5 Units SQ BID Do not mix with any other Insulin. Review of Systems General / Constitutional: No: Fever Cardiovascular: No: Chest Pain or Discomfort Respiratory: No: Cough Gastrointestinal: No: Vomiting Physical Exam Narrative GENERAL: Well-nourished, well-developed patient in no apparent distress. SKIN: Focused skin assessment reveals no rash and nodules. Skin is Warm and dry. HEAD: Atraumatic. Normocephalic. EYES: Pupils equal and round. No scleral icterus. No injection or drainage. ENT: No nasal bleeding or discharge. Mucous membranes pink and moist. NECK: Trachea midline. No JVD. CARDIOVASCULAR: Regular rate and rhythm. No murmur appreciated. RESPIRATORY: No accessory muscle use. Clear to auscultation. Breath sounds equal bilaterally. GASTROINTESTINAL: Abdomen soft, non-tender, nondistended. Hepatic and splenic margins not palpable. MUSCULOSKELETAL: No obvious deformities. No clubbing. No cyanosis. No edema. NEUROLOGICAL: Awake and alert. No obvious cranial nerve deficits. Motor grossly within normal limits. Normal speech. PSYCHIATRIC: Appropriate mood and affect; insight and judgment normal. Data Data Last Documented VS Vital Signs Date Time Temp Pulse Resp B/P (MAP) Pulse Ox O2 Delivery O2 Flow Rate FiO2 11/11/17 16:13 97.7 97 16 131/61 (84) 99 MDM Medical Decision Making Medical Screen Exam Complete: Yes Emergency Medical Condition: Yes Medical Record Reviewed: Yes Differential Diagnosis Gastritis, colitis, food poisoning Narrative Course I have reviewed the patient's electronic medical record. Patient is a frequent visitor to the ER. She's been here 4 times this month. She's been here for abdominal pain and had a negative CT of abdomen and pelvis 3 weeks ago. She had lab studies yesterday which reveal chronic anemia and no leukocytosis and reasonably normal metabolic profile Given the benign presentation and soft benign nontender abdomen and recent negative CT and labs yesterday, I don't feel further emergent workup is indicated. She is not having pain now Stable for outpatient follow-up Diagnosis Primary Impression: Diarrhea Qualified Codes: R19.7 - Diarrhea, unspecified Additional Impression: Abdominal pain Qualified Codes: R10.33 - Periumbilical pain Additional Instructions: The patient was advised to follow up with their physician and return if they worsen. Med/Other Pt SpecificInfo: Other Disposition: 01 DISCHARGE HOME Condition: Stable Jairo Salazar MD Nov 11, 2017 16:45
== END 2017-11-11 17:00 | disposition home or self-care (01) ==
LOC: NEPD 15:58
DX: R19.7 Diarrhea, unspecified (principal); R10.33 Periumbilical pain; E11.40 Type 2 diabetes mellitus with diabetic neuropathy, unspecified; I48.91 Unspecified atrial fibrillation; J44.9 Chronic obstructive pulmonary disease, unspecified; I10 Essential (primary) hypertension; Z86.73 Personal history of transient ischemic attack (TIA), and cerebral infarction without residual deficits; Z87.19 Personal history of other diseases of the digestive system; Z86.19 Personal history of other infectious and parasitic diseases
CPT/HCPCS: 99282

== ENCOUNTER 2018-02-26 13:57 | Observation (INO) | payer MEDICARE ==
[~2018-02-26] VITALS: Ht 172.7 cm; Wt 63.6 kg
[2018-02-26 14:25] VITALS: BP 95/70; PULSE 81; RESP 18; TEMP 98.6; O2SAT 99
[2018-02-26 16:44] LABS: AUTOMATED NEUTROPHIL # 2.3 TH/MM3 (1.8-7.7); BASOPHIL % 0.9 % (0.0-2.0); EOSINOPHIL # 0.1 TH/MM3 (0-0.4); EOSINOPHIL % 1.4 % (0.0-4.0); HEMOGLOBIN 11.1 GM/DL (11.6-15.3); LYMPH % 32.8 % (9.0-44.0); LYMPHOCYTE # 1.4 TH/MM3 (1.0-4.8); MEAN CELL VOLUME 81.7 FL (80.0-100.0); MEAN CORPUSCULAR HEMOGLOBIN 27.4 PG (27.0-34.0); MEAN CORPUSCULAR HGB CONC 33.6 % (32.0-36.0); MEAN PLATELET VOLUME 7.6 FL (7.0-11.0); MONO % 10.2 % (0.0-8.0); MONOCYTE # 0.4 TH/MM3 (0-0.9); NEUT % 54.7 % (16.0-70.0); PLATELET COUNT 293 TH/MM3 (150-450); RED BLOOD COUNT 4.04 MIL/MM3 (4.00-5.30); RED CELL DISTRIBUTION WIDTH 14.6 % (11.6-17.2); WHITE BLOOD COUNT 4.2 TH/MM3 (4.0-11.0)
[2018-02-26 17:01] LABS: ALBUMIN 3.7 GM/DL (3.4-5.0); AST (GOT) 7 U/L (15-37); BICARBONATE 31.5 MEQ/L (21.0-32.0); BLOOD UREA NITROGEN 15 MG/DL (7-18); CALCIUM 10.1 MG/DL (8.5-10.1); CHLORIDE 97 MEQ/L (98-107); CREATININE 1.06 MG/DL (0.50-1.00); GLOMERULAR FILTRATION RATE 55 ML/MIN (>89); GLUCOSE,RANDOM 190 MG/DL (74-106); MAGNESIUM 1.7 MG/DL (1.5-2.5); SODIUM (NA) 135 MEQ/L (136-145)
[2018-02-26 17:07] LABS: ALKALINE PHOSPHATASE 134 U/L (45-117); ALT (GPT) 16 U/L (10-53); TOTAL BILIRUBIN ADULT 0.4 MG/DL (0.2-1.0); TOTAL PROTEIN 8.5 GM/DL (6.4-8.2); TROPONIN I LESS THAN 0.02 NG/ML (0.02-0.05)
--- NOTE | 2018-02-26 18:41 | PD ---
HPI Chief Complaint: Dizziness Time Seen by Provider: 17:31 Travel History International Travel<30 days: No Contact w/Intl Traveler<30days: No Traveled to known affect area: No History of Present Illness HPI 52-year-old female presents to emergency department with multiple complaints. She is complaining of vomiting, cough, feeling dizzy, and generalized abdominal pain for the past couple days. She has no abdominal pain now. She says it is worse when you push on her belly. The abdominal pain comes and goes. Denies chest pain or shortness of breath. She is wearing a Holter monitor because she has been having some chest pressure and the Holter monitor was placed today. Does not know when her last bowel movement was. Denies dysuria. Denies fever. Denies recent illness to include nasal congestion, sore throat, ear pain. Has not taken any medications or try any treatments to alleviate her symptoms. No known relieving factors. Pain abdominal pain is aggravated with pressure. Primary care provider is [facility]. Certified Physician Assistant is Dr. Griffin. History of hypotension, asthma, IDDM, neuropathy, hepatitis C. Has no other medical complaints. No other modifying factors or associated signs and symptoms. PFSH Past Medical History Hx Anticoagulant Therapy: No Arthritis: No Asthma: Yes Atrial Fibrillation: Yes Autoimmune Disease: No Blood Disorders: No Anxiety: No Depression: No Heart Rhythm Problems: Yes (Pacemaker) Cancer: Yes (throat) Cardiovascular Problems: Yes High Cholesterol: No Chemotherapy: Yes Chest Pain: No Congestive Heart Failure: No COPD: Yes Cerebrovascular Accident: Yes Diabetes: Yes Patient Takes Glucophage: No Diminished Hearing: No Endocrine: Yes Gastrointestinal Disorders: Yes (esophagitis, gastritis) GERD: No Glaucoma: No Genitourinary: Yes Headaches: Yes Hepatitis: Yes (HEP C) Hiatal Hernia: No Heparin Induced Thrombocytopen: No Hypertension: Yes Immune Disorder: No Implanted Vascular Access Dvce: Yes (PORT R CHEST) Kidney Stones: Yes Musculoskeletal: Yes Neurologic: Yes (diabetic peripheral neuropathy) Psychiatric: No Reproductive: No Respiratory: Yes Immunizations Current: Yes Migraines: Yes Myocardial Infarction: No Pancreatitis: Yes Radiation Therapy: Yes Renal Failure: No Seizures: No Sickle Cell Disease: No Sleep Apnea: No Thyroid Disease: No Triglycerides - High: Yes Ulcer: No Tetanus Vaccination: < 5 Years PNEUMOCCOCAL Vaccine (Year): 2 ?: Not Menopausal: Yes : 3 Para: 2 Miscarriage: 1 : 0 Ectopic : No Ovarian Cysts: No Tubal Ligation: No Past Surgical History Abdominal Surgery: Yes (appendectomy, cholecystectomy) AICD: No Appendectomy: Yes Arteriovenous Shunt: No Body Medical Devices: pacemaker Cardiac Surgery: Yes (pacemaker) Section: Yes (x1) Cholecystectomy: Yes Coronary Stent: Yes (L femoral stent ) Ear Surgery: No Endocrine Surgery: No Eye Surgery: No Genitourinary Surgery: No Hysterectomy: No Insulin Pump: No Joint Replacement: No Neurologic Surgery: No Oral Surgery: Yes (tonsillectomy) Pacemaker: Yes Thoracic Surgery: No Tonsillectomy: Yes Other Surgery: Yes (port placed 2015) Social History Alcohol Use: No (DENIES) Tobacco Use: No (QUIT) Substance Use: No (DENIES ) Allergies-Medications (Allergen,Severity, Reaction): Coded Allergies: tramadol (Verified Allergy, Intermediate, Rash, 02/26/18) MRI PRECAUTION (Verified Adverse Reaction, Severe, PACEMAKER IS NOT A BIOTRONIK OR MEDTRONIC 06/15/16 KMD, 02/26/18) PACEMAKER IS NOT A BIOTRONIK OR MEDTRONIC CONDITIONAL PACEMAKER. CALLED BOTH COMPANIES TO CONFIRM. metformin (Verified Adverse Reaction, Severe, DIARRHEA, 02/26/18) morphine (Verified Adverse Reaction, Severe, Dizziness, 02/26/18) oxycodone (Verified Adverse Reaction, Severe, Nausea/Vomiting, 02/26/18) prochlorperazine (Verified Adverse Reaction, Severe, ANXIETY, 02/26/18) ANXIETY Reported Meds & Prescriptions Reported Meds & Active Scripts Active Midodrine 5 Mg Tab 10 Mg PO TID@,12,17 Gabapentin 400 Mg Cap 400 Mg PO TID Reported Levemir Inj (Insulin Detemir) 1,000 unit/ 10 ML Vial 5 Units SQ BID Do not mix with any other Insulin. Review of Systems Except as stated in HPI: all other systems reviewed are Neg Physical Exam Narrative GENERAL: Well-nourished, well-developed female patient, in no acute distress; afebrile SKIN: Warm and dry. HEAD: Atraumatic. Normocephalic. EYES: Pupils equal and round. No scleral icterus. No injection or drainage. ENT: Mucosa pink and moist. Airway patent. NECK: Trachea midline. CARDIOVASCULAR: Regular rate and rhythm. No murmur appreciated. RESPIRATORY: No accessory muscle use. Clear to auscultation. Breath sounds equal bilaterally. GASTROINTESTINAL: Abdomen soft, nontender, nondistended. Hepatic and splenic margins not palpable. Bowel sounds are active 4 quadrants. Nonrigid. No guarding. BACK: No CVA tenderness. MUSCULOSKELETAL: No obvious deformities. No clubbing. No cyanosis. No edema. NEUROLOGICAL: Awake and alert. Oriented 3. No obvious cranial nerve deficits. Motor grossly within normal limits. Normal speech. PSYCHIATRIC: Appropriate mood and affect; insight and judgment normal. Data Data Last Documented VS Vital Signs Date Time Temp Pulse Resp B/P (MAP) Pulse Ox O2 Delivery O2 Flow Rate FiO2 02/26/18 20:18 79 16 132/78 (96) 81 18 122/64 (83) 84 18 67/42 (50) 02/26/18 14:25 98.6 99 Orders Orders Complete Blood Count With Diff (02/26/18 14:27) Comprehensive Metabolic Panel (02/26/18 14:27) Lipase (02/26/18 14:27) Urinalysis - C+S If Indicated (02/26/18 14:27) Electrocardiogram (02/26/18 ) Creatine Kinase (Cpk) (02/26/18 14:27) Troponin I (02/26/18 14:27) Magnesium (Mg) (02/26/18 14:27) Chest, Single Ap (02/26/18 18:19) Abdomen, Upright Only (02/26/18 18:20) Orthostatic Vital Signs (02/26/18 19:53) Admit Order (Ed Use Only) (02/26/18 21:02) Labs Laboratory Tests Test 02/26/18 14:15 02/26/18 16:00 Urine Color LIGHT-YELLOW Urine Turbidity CLEAR Urine pH 6.5 Urine Specific [place] 1.018 Urine Protein GREATER THAN 600 mg/dL Urine Glucose (UA) NEG mg/dL Urine Ketones NEG mg/dL Urine Occult Blood NEG Urine Nitrite NEG Urine Bilirubin NEG Urine Urobilinogen LESS THAN 2.0 MG/DL Urine Leukocyte Esterase MOD Urine RBC LESS THAN 1 /hpf Urine WBC LESS THAN 1 /hpf Urine Squamous Epithelial Cells 2 /hpf Microscopic Urinalysis Comment CULT NOT INDICATED White Blood Count 4.2 TH/MM3 Red Blood Count 4.04 MIL/MM3 Hemoglobin 11.1 GM/DL Hematocrit 33.0 % Mean Corpuscular Volume 81.7 FL Mean Corpuscular Hemoglobin 27.4 PG Mean Corpuscular Hemoglobin Concent 33.6 % Red Cell Distribution Width 14.6 % Platelet Count 293 TH/MM3 Mean Platelet Volume 7.6 FL Neutrophils (%) (Auto) 54.7 % Lymphocytes (%) (Auto) 32.8 % Monocytes (%) (Auto) 10.2 % Eosinophils (%) (Auto) 1.4 % Basophils (%) (Auto) 0.9 % Neutrophils # (Auto) 2.3 TH/MM3 Lymphocytes # (Auto) 1.4 TH/MM3 Monocytes # (Auto) 0.4 TH/MM3 Eosinophils # (Auto) 0.1 TH/MM3 Basophils # (Auto) 0.0 TH/MM3 CBC Comment DIFF FINAL Differential Comment Blood Urea Nitrogen 15 MG/DL Creatinine 1.06 MG/DL Random Glucose 190 MG/DL Total Protein 8.5 GM/DL Albumin 3.7 GM/DL Calcium Level 10.1 MG/DL Magnesium Level 1.7 MG/DL Alkaline Phosphatase 134 U/L Aspartate Amino Transf (AST/SGOT) 7 U/L Alanine Aminotransferase (ALT/SGPT) 16 U/L Total Bilirubin 0.4 MG/DL Sodium Level 135 MEQ/L Potassium Level 4.4 MEQ/L Chloride Level 97 MEQ/L Carbon Dioxide Level 31.5 MEQ/L Anion Gap 7 MEQ/L Estimat Glomerular Filtration Rate 55 ML/MIN Total Creatine Kinase 33 U/L Troponin I LESS THAN 0.02 NG/ML Lipase 224 U/L MDM Medical Decision Making Medical Screen Exam Complete: Yes Emergency Medical Condition: Yes Medical Record Reviewed: Yes Differential Diagnosis Constipation, ileus, obstruction, dizziness, Narrative Course 52-year-old female with multiple complaints. CBC, CMP, troponin, CK-MB, EKG ordered in triage. Labs reviewed and CBC unremarkable. Creatinine 1.06. Troponin less than 0.02. Total creatinine kinase 33. Random glucose 190. Lipase 224. I discussed the patient with Dr. Washington, my attending physician, and a plan of care was discussed. Chest x-ray and abdominal x-ray ordered. 1899: Report given to Jaye Nicole DNP at change of shift. See her note for final patient disposition. Melba Mcadams [facility] Feb 26, 2018 18:41
--- NOTE | 2018-02-26 18:44 | RADRPT ---
EXAM DATE/TIME: 02/26/2018 18:34 [facility] COMPARISON: CHEST SINGLE AP, October 21, 2017, 20:15. INDICATIONS : Cough. MEDICAL HISTORY : Diabetes mellitus type 2. Cardiovascular disease Throat cancer. SURGICAL HISTORY : Pacemaker. Cholecystectomy. Tonsillectomy. Infusaport. ENCOUNTER: Initial ACUITY: 3 days PAIN SCORE: 0/10 LOCATION: Bilateral chest FINDINGS: No infiltrate, effusion or pneumothorax. Normal, stable heart size. Cardiac pacer again noted. Patient has a right internal jugular [id number] catheter with tip in the superior vena cava. CONCLUSION: No acute abnormality demonstrated. Rc Oreilly MD on February 26, 2018 at 18:42 Board Certified Radiologist. This report was verified electronically.
--- NOTE | 2018-02-26 18:45 | RADRPT ---
EXAM DATE/TIME: 02/26/2018 18:36 [facility] COMPARISON: CT ABDOMEN & PELVIS W CONTRAST, October 18, 2017, 15:26. INDICATIONS : Abdominal pain. MEDICAL HISTORY : Diabetes mellitus type 2. Cardiovascular disease Throat cancer. SURGICAL HISTORY : Pacemaker. Cholecystectomy. Tonsillectomy. Infusaport. ENCOUNTER: Initial ACUITY: 3 days PAIN SCORE: 5/10 LOCATION: Bilateral abdomen. FINDINGS: A single erect view of the abdomen demonstrates the lower lungs to be clear. No evidence of free int raperitoneal gas. The visualized bowel loops are unremarkable. CONCLUSION: Benign-appearing abdomen. Rc Oreilly MD on February 26, 2018 at 18:42 Board Certified Radiologist. This report was verified electronically.
[2018-02-26 19:51] LABS: BILIRUBIN, URINE NEG (NEG); BLOOD, URINE NEG (NEG); GLUCOSE,URINE NEG (NEG); KETONE, URINE NEG (NEG); NITRITE,URINE NEG (NEG); PH, URINE 6.5 (5.0-8.5); SQUAMOUS EPITHELIAL CELL URINE 2 /hpf (0-5); URINE COLOR LIGHT-YELLOW (YELLW/STRAW); URINE LEUKOCYTE ESTERASE MOD (NEG)
[2018-02-26 20:18] VITALS: BP_SYST 122; BP_SYST 132; BP_SYST 67; BP_DIAS 42; BP_DIAS 64; BP_DIAS 78; RESP 16; RESP 18
--- NOTE | 2018-02-26 20:27 | PD ---
Physical Exam Time Seen by Provider: 20:25 Narrative Please refer to previous providers documentation for details surrounding the patient's current visit. Data Data Last Documented VS Vital Signs Date Time Temp Pulse Resp B/P (MAP) Pulse Ox O2 Delivery O2 Flow Rate FiO2 02/26/18 20:18 79 16 132/78 (96) 81 18 122/64 (83) 84 18 67/42 (50) 02/26/18 14:25 98.6 99 Orders Orders Complete Blood Count With Diff (02/26/18 14:27) Comprehensive Metabolic Panel (02/26/18 14:27) Lipase (02/26/18 14:27) Urinalysis - C+S If Indicated (02/26/18 14:27) Electrocardiogram (02/26/18 ) Creatine Kinase (Cpk) (02/26/18 14:27) Troponin I (02/26/18 14:27) Magnesium (Mg) (02/26/18 14:27) Chest, Single Ap (02/26/18 18:19) Abdomen, Upright Only (02/26/18 18:20) Orthostatic Vital Signs (02/26/18 19:53) Labs Laboratory Tests Test 02/26/18 14:15 02/26/18 16:00 Urine Color LIGHT-YELLOW Urine Turbidity CLEAR Urine pH 6.5 Urine Specific [place] 1.018 Urine Protein GREATER THAN 600 mg/dL Urine Glucose (UA) NEG mg/dL Urine Ketones NEG mg/dL Urine Occult Blood NEG Urine Nitrite NEG Urine Bilirubin NEG Urine Urobilinogen LESS THAN 2.0 MG/DL Urine Leukocyte Esterase MOD Urine RBC LESS THAN 1 /hpf Urine WBC LESS THAN 1 /hpf Urine Squamous Epithelial Cells 2 /hpf Microscopic Urinalysis Comment CULT NOT INDICATED White Blood Count 4.2 TH/MM3 Red Blood Count 4.04 MIL/MM3 Hemoglobin 11.1 GM/DL Hematocrit 33.0 % Mean Corpuscular Volume 81.7 FL Mean Corpuscular Hemoglobin 27.4 PG Mean Corpuscular Hemoglobin Concent 33.6 % Red Cell Distribution Width 14.6 % Platelet Count 293 TH/MM3 Mean Platelet Volume 7.6 FL Neutrophils (%) (Auto) 54.7 % Lymphocytes (%) (Auto) 32.8 % Monocytes (%) (Auto) 10.2 % Eosinophils (%) (Auto) 1.4 % Basophils (%) (Auto) 0.9 % Neutrophils # (Auto) 2.3 TH/MM3 Lymphocytes # (Auto) 1.4 TH/MM3 Monocytes # (Auto) 0.4 TH/MM3 Eosinophils # (Auto) 0.1 TH/MM3 Basophils # (Auto) 0.0 TH/MM3 CBC Comment DIFF FINAL Differential Comment Blood Urea Nitrogen 15 MG/DL Creatinine 1.06 MG/DL Random Glucose 190 MG/DL Total Protein 8.5 GM/DL Albumin 3.7 GM/DL Calcium Level 10.1 MG/DL Magnesium Level 1.7 MG/DL Alkaline Phosphatase 134 U/L Aspartate Amino Transf (AST/SGOT) 7 U/L Alanine Aminotransferase (ALT/SGPT) 16 U/L Total Bilirubin 0.4 MG/DL Sodium Level 135 MEQ/L Potassium Level 4.4 MEQ/L Chloride Level 97 MEQ/L Carbon Dioxide Level 31.5 MEQ/L Anion Gap 7 MEQ/L Estimat Glomerular Filtration Rate 55 ML/MIN Total Creatine Kinase 33 U/L Troponin I LESS THAN 0.02 NG/ML Lipase 224 U/L [facility] Medical Record Reviewed: Yes Supervised Visit with DARIAN: No Narrative Course Patient was signed out to me with lab work pending. I have added orthostatic vital signs to the patient's workup. Laboratory Tests Test 02/26/18 14:15 02/26/18 16:00 Urine Color LIGHT-YELLOW Urine Turbidity CLEAR Urine pH 6.5 Urine Specific [place] 1.018 Urine Protein GREATER THAN 600 mg/dL Urine Glucose (UA) NEG mg/dL Urine Ketones NEG mg/dL Urine Occult Blood NEG Urine Nitrite NEG Urine Bilirubin NEG Urine Urobilinogen LESS THAN 2.0 MG/DL Urine Leukocyte Esterase MOD Urine RBC LESS THAN 1 /hpf Urine WBC LESS THAN 1 /hpf Urine Squamous Epithelial Cells 2 /hpf Microscopic Urinalysis Comment CULT NOT INDICATED White Blood Count 4.2 TH/MM3 Red Blood Count 4.04 MIL/MM3 Hemoglobin 11.1 GM/DL Hematocrit 33.0 % Mean Corpuscular Volume 81.7 FL Mean Corpuscular Hemoglobin 27.4 PG Mean Corpuscular Hemoglobin Concent 33.6 % Red Cell Distribution Width 14.6 % Platelet Count 293 TH/MM3 Mean Platelet Volume 7.6 FL Neutrophils (%) (Auto) 54.7 % Lymphocytes (%) (Auto) 32.8 % Monocytes (%) (Auto) 10.2 % Eosinophils (%) (Auto) 1.4 % Basophils (%) (Auto) 0.9 % Neutrophils # (Auto) 2.3 TH/MM3 Lymphocytes # (Auto) 1.4 TH/MM3 Monocytes # (Auto) 0.4 TH/MM3 Eosinophils # (Auto) 0.1 TH/MM3 Basophils # (Auto) 0.0 TH/MM3 CBC Comment DIFF FINAL Differential Comment Blood Urea Nitrogen 15 MG/DL Creatinine 1.06 MG/DL Random Glucose 190 MG/DL Total Protein 8.5 GM/DL Albumin 3.7 GM/DL Calcium Level 10.1 MG/DL Magnesium Level 1.7 MG/DL Alkaline Phosphatase 134 U/L Aspartate Amino Transf (AST/SGOT) 7 U/L Alanine Aminotransferase (ALT/SGPT) 16 U/L Total Bilirubin 0.4 MG/DL Sodium Level 135 MEQ/L Potassium Level 4.4 MEQ/L Chloride Level 97 MEQ/L Carbon Dioxide Level 31.5 MEQ/L Anion Gap 7 MEQ/L Estimat Glomerular Filtration Rate 55 ML/MIN Total Creatine Kinase 33 U/L Troponin I LESS THAN 0.02 NG/ML Lipase 224 U/L After orthostatic vital signs are complete, on standing, patient's blood pressure does drop significantly and she becomes lightheaded and feels like she is going to pass out. I discussed this with my attending physician. Patient will be admitted observation for further evaluation of this. Diagnosis Primary Impression: Orthostatic hypotension Additional Impression: Near syncope Admitting Information Admitting Physician Requests: Observation Condition: Stable Jaye Nicole Feb 26, 2018 20:27
--- NOTE | 2018-02-26 20:39 | EKG ---
Date Performed: 02/26/2018 Time Performed: 15:59:27 PTAGE: 52 years EKG: Sinus rhythm LEFT AXIS DEVIATION POSSIBLE ANTEROSEPTAL INFARCT ABNORMAL ECG PREVIOUS TRACING : 10/21/2017 19.56 No significant change from previous tracing noted. DOCTOR: Kushal Cordero Interpretating Date/Time 02/26/2018 20:38:06
[2018-02-26] MEDS ORDERED: BISACODYL 10 MG SUPP RECTAL PRN (22:00)
[2018-02-26] MEDS ORDERED: NALOXONE HCL 0.4 MG/ML AMP IV PUSH PRN (22:00)
[2018-02-26] MEDS ORDERED: SODIUM CHLORIDE 0.9% FLUSH 10 ML FLUSH IV FLUSH PRN (22:00)
[2018-02-26] MEDS ORDERED: SENNOSIDES 8.6 MG TAB PO PRN (22:00)
[2018-02-26] MEDS ORDERED: LACTULOSE SYRUP 20 GM/30 ML CUP PO PRN (22:00)
[2018-02-26] MEDS ORDERED: ONDANSETRON HCL 4 MG/2 ML VIAL IVP PRN (22:00)
[2018-02-26] MEDS ORDERED: ACETAMINOPHEN 325 MG TAB PO PRN (22:00)
[2018-02-26] MEDS ORDERED: MAGNESIUM HYDROXIDE SUSP 30 ML CUP PO PRN (22:00)
--- NOTE | 2018-02-26 22:08 | HHI.HP ---
HPI Service Family Medicine Primary Care Physician Unknown Admission Diagnosis ORTHOSTATIC HYPOTENSION; NEAR SYNCOPE Diagnoses: International Travel<30 Days: No Contact w/Intl Traveler<30days: No Known Affected Area: No History of Present Illness Ms. Arechiga is a 52-year-old white female with past medical history of hypotension , diabetes mellitus, and hepatitis C presenting to the ED today with abdominal pain and vomiting. She states that the symptoms started a few days ago. Describes her abdominal pain as diffuse, 9/10 sharp, nonradiating pain that is worse with vomiting, nothing makes it better. Of note she states that her last bowel movement was a month ago when she was in rehab. Although she is unsure if this is actually correct. She had vomited twice today. Nonbloody, nonbilious, brownish in color. She ate refried beans and Ramen noodles which were said to have vomiting this morning and then vomited after coffee later on. She was able to keep a little food down. She is also had a cough that is sometimes productive of clear sputum. She has had this for a few days as well. No pleuritic chest pain, no shortness of breath. Is having some nasal congestion. When discussing her blood pressure she states that after she takes her medications especially the midodrine, she feels dizzy and lightheaded. She fell 2 weeks ago when she had gotten up to stand and walk for a few steps. She has not fallen since. Had a Holter monitor placed today with Dr. 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 (Nan Finn MD R1) Allergies: Coded Allergies: tramadol (Verified Allergy, Intermediate, Rash, 02/26/18) MRI PRECAUTION (Verified Adverse Reaction, Severe, PACEMAKER IS NOT A BIOTRONIK OR MEDTRONIC 06/15/16 KMD, 02/26/18) PACEMAKER IS NOT A BIOTRONIK OR MEDTRONIC CONDITIONAL PACEMAKER. CALLED BOTH COMPANIES TO CONFIRM. metformin (Verified Adverse Reaction, Severe, DIARRHEA, 02/26/18) morphine (Verified Adverse Reaction, Severe, Dizziness, 02/26/18) oxycodone (Verified Adverse Reaction, Severe, Nausea/Vomiting, 02/26/18) prochlorperazine (Verified Adverse Reaction, Severe, ANXIETY, 02/26/18) ANXIETY Family History Mother-unknown medical history Father-heart disease, DM Sister-CAD Social History Lives with her roommates Receives disability, unemployed Denies alcohol use Tobacco: quit in 2003, smoked about 1/2 PPD x 14 years prior to quitting Denies illicit drug use (Nan Finn MD R1) Physical Exam Vital Signs Vital Signs Date Time Temp Pulse Resp B/P (MAP) Pulse Ox O2 Delivery O2 Flow Rate FiO2 02/26/18 20:18 79 16 132/78 (96) 81 18 122/64 (83) 84 18 67/42 (50) 02/26/18 14:25 98.6 81 18 95/70 (78) 99 Physical Exam GENERAL: This is a well-nourished, well-developed patient laying in bed coughing intermittently, in no apparent distress. SKIN: No rashes or lesions. Cool and dry. Ecchymosis on right posterior forearm HEAD: Atraumatic. Normocephalic. EYES: Pupils equal round and reactive. Extraocular motions intact. No scleral icterus. No injection or drainage. ENT: Nose without bleeding, purulent drainage or septal hematoma. Throat without erythema, tonsillar hypertrophy or exudate. Uvula midline. Airway patent. Edentulous NECK: Trachea midline. No JVD or lymphadenopathy. Supple, nontender, no meningeal signs. CARDIOVASCULAR: RRR without murmurs, gallops, or rubs. RESPIRATORY: Lung sounds diminished, but clear to auscultation. Breath sounds equal bilaterally. No wheezes, rales, or rhonchi. GASTROINTESTINAL: Abdomen soft, tenderness to palpation at RUQ and suprapubic, nondistended. No hepato-splenomegaly, or palpable masses. No guarding. MUSCULOSKELETAL: Extremities without clubbing, cyanosis, or edema. No joint tenderness, effusion, or edema noted. No calf tenderness. Negative Homans sign bilaterally. NEUROLOGICAL: Awake and alert. Motor and sensory grossly within normal limits. Normal speech. Laboratory Laboratory Tests Test 02/26/18 14:15 02/26/18 16:00 Urine Color LIGHT-YELLOW Urine Turbidity CLEAR Urine pH 6.5 Urine Specific [place] 1.018 Urine Protein GREATER THAN 600 Urine Glucose (UA) NEG Urine Ketones NEG Urine Occult Blood NEG Urine Nitrite NEG Urine Bilirubin NEG Urine Urobilinogen LESS THAN 2.0 Urine Leukocyte Esterase MOD Urine RBC LESS THAN 1 Urine WBC LESS THAN 1 Urine Squamous Epithelial Cells 2 Microscopic Urinalysis Comment CULT NOT INDICATED White Blood Count 4.2 Red Blood Count 4.04 Hemoglobin 11.1 Hematocrit 33.0 Mean Corpuscular Volume 81.7 Mean Corpuscular Hemoglobin 27.4 Mean Corpuscular Hemoglobin Concent 33.6 Red Cell Distribution Width 14.6 Platelet Count 293 Mean Platelet Volume 7.6 Neutrophils (%) (Auto) 54.7 Lymphocytes (%) (Auto) 32.8 Monocytes (%) (Auto) 10.2 Eosinophils (%) (Auto) 1.4 Basophils (%) (Auto) 0.9 Neutrophils # (Auto) 2.3 Lymphocytes # (Auto) 1.4 Monocytes # (Auto) 0.4 Eosinophils # (Auto) 0.1 Basophils # (Auto) 0.0 CBC Comment DIFF FINAL Differential Comment Blood Urea Nitrogen 15 Creatinine 1.06 Random Glucose 190 Total Protein 8.5 Albumin 3.7 Calcium Level 10.1 Magnesium Level 1.7 Alkaline Phosphatase 134 Aspartate Amino Transf (AST/SGOT) 7 Alanine Aminotransferase (ALT/SGPT) 16 Total Bilirubin 0.4 Sodium Level 135 Potassium Level 4.4 Chloride Level 97 Carbon Dioxide Level 31.5 Anion Gap 7 Estimat Glomerular Filtration Rate 55 Total Creatine Kinase 33 Troponin I LESS THAN 0.02 Lipase 224 (Nan Finn MD R1) Result Diagram: 02/26/18 1600 02/26/18 1600 Imaging Last Impressions Abdomen X-Ray 02/26/18 1820 Signed Impressions: Service Date/Time: Monday, February 26, 2018 18:36 - CONCLUSION: Benign- appearing abdomen. Rc Oreilly MD Chest X-Ray 02/26/18 181 Signed Impressions: Service Date/Time: Monday, February 26, 2018 18:34 - CONCLUSION: No acute abnormality demonstrated. Rc Oreilly MD (Nan Finn MD R1) Caprini VTE Risk Assessment Caprini VTE Risk Assessment: Mod/High Risk (score >= 2) Caprini Risk Assessment Model Point Value = 1 Point Value = 2 Point Value = 3 Point Value = 5 Age 41-60 Minor surgery BMI > 25 kg/m2 Swollen legs Varicose veins or History of unexplained or recurrent spontaneous Oral contraceptives or hormone replacement Sepsis (< 1 month) Serious lung disease, including pneumonia (< 1 month) Abnormal pulmonary function Acute myocardial infarction Congestive heart failure (< 1 month) History of inflammatory bowel disease Medical patient at bed rest Age 61-74 Arthroscopic surgery Major open surgery (> 45 min) Laparoscopic surgery (> 45 min) Malignancy Confined to bed (> 72 hours) Immobilizing plaster cast Central venous access Age >= 75 History of VTE Family history of VTE Factor V Leiden Prothrombin [id number] Lupus anticoagulant Anticardiolipin antibodies Elevated serum homocysteine Heparin-induced thrombocytopenia Other congenital or acquired thrombophilia Stroke (< 1 month) Elective arthroplasty Hip, pelvis, or leg fracture Acute spinal cord injury (< 1 month) Prophylaxis Regimen Total Risk Factor Score Risk Level Prophylaxis Regimen 0-1 Low Early ambulation 2 Moderate Order ONE of the following: *Sequential Compression Device (SCD) *Heparin 5000 units SQ BID 3-4 Higher Order ONE of the following medications: *Heparin 5000 units SQ TID *Enoxaparin/Lovenox 40 mg SQ daily (WT < 150 kg, CrCl > 30 mL/min) *Enoxaparin/Lovenox 30 mg SQ daily (WT < 150 kg, CrCl > 10-29 mL/min) *Enoxaparin/Lovenox 30 mg SQ BID (WT < 150 kg, CrCl > 30 mL/min) AND/OR *Sequential Compression Device (SCD) 5 or more Highest Order ONE of the following medications: *Heparin 5000 units SQ TID (Preferred with Epidurals) *Enoxaparin/Lovenox 40 mg SQ daily (WT < 150 kg, CrCl > 30 mL/min) *Enoxaparin/Lovenox 30 mg SQ daily (WT < 150 kg, CrCl > 10-29 mL/min) *Enoxaparin/Lovenox 30 mg SQ BID (WT < 150 kg, CrCl > 30 mL/min) AND *Sequential Compression Device (SCD) (Nan Finn MD R1) Assessment and Plan Assessment and Plan 52-year-old white female with past medical history of hypotension, diabetes presenting with abdominal pain and vomiting. After workup in the ED she is being admitted to observation for orthostatic hypotension. Code Status Full code Discussed Condition With Dr. Fagan (Nan Finn MD R1) Problem List: (1) Orthostatic hypotension ICD Codes: I95.1 - Orthostatic hypotension Status: Acute Plan: Patient has a history of hypotension/falls and is on midodrine at home. States that PCP recently increased her midodrine to 10 mg 3 times daily. Since then she has been having some dizziness and lightheadedness with standing. However, upon chart review patient has had this problem since 2017. Vitals done in the ED show orthostatic hypotension. May have been worsened by acute vomiting and dehydration. -NS at 105 mLs/hour -Continue at home midodrine 10 mg p.o. 3 times daily to increase blood pressure -Hold at home gabapentin which can lead to dizziness -Continue to monitor vitals every 4 hours -Consult PT/OT (2) Abdominal pain ICD Codes: R10.9 - Unspecified abdominal pain Status: Acute Plan: Diffuse abdominal pain and vomiting for the past few days. Could be due to gastroenteritis versus severe constipation versus food poisoning Abdominal x-ray on admission shows a benign appearing abdomen. -Zofran as needed for nausea (3) Cough ICD Codes: R05 - Cough Status: Acute Plan: Patient states that she has had a cough for few days at times productive of clear sputum. Along with her symptom of nasal congestion is likely due to a viral etiology. Pt also has a hx of asthma Chest x-ray on admission shows no acute abnormality. -Continue to monitor (4) Acute kidney injury ICD Codes: N17.9 - Acute kidney failure, unspecified Status: Acute Plan: Upon chart review baseline creatinine is likely in the 0.4-0.5 range. This increase in creatinine is likely due to dehydration from vomiting. -IVF as above (5) Constipation ICD Codes: K59.00 - Constipation Status: Chronic Plan: Patient states that her last bowel movement was greater than a month ago when she was in rehab. Although this time period may not be likely, will start a bowel regimen. -Tamiko-Colace 1 tab p.o. twice daily, escalate regimen as needed, full bowel regimen has been ordered (6) DM (diabetes mellitus) ICD Codes: E11.9 - DM (diabetes mellitus) Status: Chronic Plan: Patient admits that her blood sugars are not well controlled at home and admits to noncompliance. Fasting glucose is usually 179. -Continue at home Levemir 5 units twice daily, titrate as needed -NovoLog low dose sliding scale -Bedside glucose monitoring -Hypoglycemia protocol (7) Hepatitis C ICD Codes: B19.20 - Unspecified viral hepatitis C without hepatic coma Status: Chronic Plan: Patient with a history of hepatitis C. Not on any at home medications. -Alkaline phosphatase elevated on admission to 134. Will continue to monitor (8) FEN Status: Acute Plan: Fluids: NS @ 105ml/hr Electrolytes: monitor and replete as needed Nutrition: 1800 ADA diet DVT Prophylaxis: Early ambulation. Lovenox 40mg subQ q24hr GI Prophylaxis: None indicated at this time Pain/fever management: Tylenol (Nan Finn MD R1) Problem Qualifiers (1) Constipation: Qualified Codes: K59.00 - Constipation, unspecified (2) DM (diabetes mellitus): Qualified Codes: E11.69 - Type 2 diabetes mellitus with other specified complication Nan Finn MD R1 Feb 26, 2018 22:08 Keyana Holloway MD Feb 27, 2018 16:33
[2018-02-26] MEDS: SODIUM CHLOR 0.9% 1000 ML INJ 1,000 ML IV SCH (22:48)
[2018-02-26] MEDS: INSULIN DETEMIR 100 UNITS/ML VIAL SQ SCH (22:48)
[2018-02-27] VITALS (9 sets, daily range): BP systolic 59–181; BP diastolic 33–98; PULSE 71–84; RESP 16–18; TEMP 97.9–98.6; O2SAT 96–99
[2018-02-27] MEDS ORDERED: GLUCAGON 1 MG/ML VIAL OTHER PRN (01:15)
[2018-02-27] MEDS ORDERED: DEXTROSE 50% IN WATER 50 ML VIAL(D50) IV PUSH PRN (01:15)
[2018-02-27] MEDS: MIDODRINE 5 MG TAB PO SCH ×3 (06:15→19:40)
[2018-02-27 07:11] LABS: AUTOMATED NEUTROPHIL # 2.5 TH/MM3 (1.8-7.7); BASOPHIL % 0.8 % (0.0-2.0); EOSINOPHIL # 0.1 TH/MM3 (0-0.4); HEMATOCRIT 32.2 % (35.0-46.0); LYMPH % 23.9 % (9.0-44.0); LYMPHOCYTE # 0.9 TH/MM3 (1.0-4.8); MEAN CELL VOLUME 81.7 FL (80.0-100.0); MEAN CORPUSCULAR HEMOGLOBIN 27.9 PG (27.0-34.0); MEAN CORPUSCULAR HGB CONC 34.1 % (32.0-36.0); MEAN PLATELET VOLUME 7.5 FL (7.0-11.0); MONO % 8.8 % (0.0-8.0); MONOCYTE # 0.3 TH/MM3 (0-0.9); NEUT % 64.5 % (16.0-70.0); PLATELET COUNT 247 TH/MM3 (150-450); RED BLOOD COUNT 3.94 MIL/MM3 (4.00-5.30); RED CELL DISTRIBUTION WIDTH 14.7 % (11.6-17.2); WHITE BLOOD COUNT 3.8 TH/MM3 (4.0-11.0)
[2018-02-27 07:20] LABS: ALBUMIN 3.3 GM/DL (3.4-5.0); ALT (GPT) 14 U/L (10-53); AST (GOT) 10 U/L (15-37); BICARBONATE 30.4 MEQ/L (21.0-32.0); BLOOD UREA NITROGEN 13 MG/DL (7-18); CALCIUM 9.7 MG/DL (8.5-10.1); CHLORIDE 101 MEQ/L (98-107); GLOMERULAR FILTRATION RATE 66 ML/MIN (>89); GLUCOSE,RANDOM 163 MG/DL (74-106); SODIUM (NA) 138 MEQ/L (136-145)
[2018-02-27 07:22] LABS: ALKALINE PHOSPHATASE 123 U/L (45-117); TOTAL BILIRUBIN ADULT 0.4 MG/DL (0.2-1.0); TOTAL PROTEIN 7.7 GM/DL (6.4-8.2)
[2018-02-27] MEDS: SODIUM CHLOR 0.9% 1000 ML INJ 1,000 ML IV SCH ×2 (10:15→22:10)
[2018-02-27] MEDS: INSULIN DETEMIR 100 UNITS/ML VIAL SQ SCH ×2 (10:16→22:07)
[2018-02-27] MEDS: SODIUM CHLORIDE 0.9% FLUSH 10 ML FLUSH IV FLUSH SCH ×2 (10:16→21:00)
[2018-02-27] MEDS: DOCUSATE SODIUM 50 MG/SENNA 8.6 MG TAB PO SCH ×2 (10:17→22:18)
[2018-02-27] MEDS: INSULIN ASPART SUPPLEMENTAL SCALE SQ SCH ×4 (10:17→22:08)
[2018-02-27] MEDS: ENOXAPARIN SODIUM 40 MG/0.4 ML SYRINGE SQ SCH (10:18)
[2018-02-27] MEDS: ERYTHROMYCIN ETHYLSUCCINATE 200 MG/5 ML SUSP 100 ML BOTTLE PO SCH ×2 (13:39→19:40)
--- NOTE | 2018-02-27 14:45 | HHI.FF ---
Face to Face Verification Diagnosis: (1) Frequent falls (2) Gastroparesis (3) Orthostatic hypotension Physical Therapy Order: Evaluate and Treat Home Health Nursing Order: Medical education Signs/symptoms of disease process I have seen patient Jaqueline Arechiga on 02/27/18. My clinical findings support the need for the requested home health care services because: Ltd mobility - disease progression Deconditioned w/ increased weakness Limited ability to care for self Need for psychosocial assistance High risk of falls I certify that my clinical findings support that this patient is homebound because: Unsteady gait/balance Need for psychosocial assistance Allan Lindsey MD R2 Feb 27, 2018 14:45 Keyana Holloway MD Feb 27, 2018 16:33
--- NOTE | 2018-02-27 16:32 | HHI.FPPN ---
Subjective Subjective Patient seen and examined with the resident team this morning. Case reviewed and discussed. Please refer to resident H&P for further details regarding HPI, ROS, past medical and surgical history, family and social history. In summary, patient is a 52-year-old female who appears older than her stated age. She has an extensive medical history including pacemaker placement, vascular disease with stent placement, cirrhosis, orthostatic hypotension and is followed by cardiology, Dr. Cohn. She is seen in her hospital bed, reports she had further emesis this am. [facility] Objective Objective Laboratory Tests - Abnormals Test 02/27/18 04:20 02/27/18 06:20 Random Glucose 163 MG/DL Albumin 3.3 GM/DL Alkaline Phosphatase 123 U/L Aspartate Amino Transf (AST/SGOT) 10 U/L Estimat Glomerular Filtration Rate 66 ML/MIN White Blood Count 3.8 TH/MM3 Red Blood Count 3.94 MIL/MM3 Hemoglobin 11.0 GM/DL Hematocrit 32.2 % Monocytes (%) (Auto) 8.8 % Lymphocytes # (Auto) 0.9 TH/MM3 Vital Signs 02/26/18 02/26/18 02/27/18 02/27/18 20:18 22:51 00:54 03:05 Temp 98.2 97.9 Pulse 79 78 75 81 84 Resp 18 B/P (MAP) 132/78 (96) 100/58 (72) 99/57 (71) 122/64 (83) 67/42 (50) Pulse Ox 96 98 02/27/18 02/27/18 02/27/18 02/27/18 05:17 08:21 10:58 14:43 Temp 98.3 98.4 98.6 Pulse 84 76 80 72 Resp B/P (MAP) 95/58 (70) 164/81 (108) 149/83 (105) 181/98 (125) 123/88 (100) 80/56 (64) 133/75 (94) 76/50 (59) 118/65 (82) 79/51 (60) Pulse Ox 99 96 98 Physical exam GENERAL: thin female, malnourished appearing, sitting up in bed. SKIN: Warm and dry. No rashes, lesions HEAD: Normocephalic. AT EYES: No scleral icterus. No injection or drainage. NECK: Supple, trachea midline. No JVD or lymphadenopathy. CARDIOVASCULAR: Regular rate and rhythm without murmurs, gallops, or rubs. PM over anterior chest RESPIRATORY: Breath sounds equal and clear bilaterally. No accessory muscle use. GASTROINTESTINAL: Abdomen soft, non-tender, nondistended. MUSCULOSKELETAL: No cyanosis, or edema. No calf tenderness BACK: Nontender without obvious deformity. No CVA tenderness. Assessment Assessment Severe orthostatic Hypotension Dehydration Intractable emesis Acute renal insufficiency Diabetes mellitus type 2 Hepatitis C Oropharyngeal cancer-cancer free for about a year History of CVA Dysautonomia with Orthostatic hypotension Gastroparesis Pacemaker Asthma Peripheral neuropathy PLAN PLAN PT evaluation IVF resuscitation EES for gastroparesis (previously not responsive to reglan from [facility] in 2016) Resume home meds as appropriate Monitor electrolytes, replete as needed Glucerna Consider nutrition consult CM consult Orthostatic VS q4h Patient seen and examined. Case reviewed and discussed Agree with plan of care as discussed with me and documented in the resident note. Keyana Holloway MD Feb 27, 2018 16:32
[2018-02-28] VITALS (10 sets, daily range): BP systolic 95–210; BP diastolic 59–106; PULSE 70–88; RESP 16–18; TEMP 98–98.7; O2SAT 97–100
[2018-02-28] MEDS: SODIUM CHLOR 0.9% 1000 ML INJ 1,000 ML IV SCH ×3 (02:51→21:45)
[2018-02-28] MEDS: INSULIN ASPART SUPPLEMENTAL SCALE SQ SCH ×4 (08:00→20:58)
[2018-02-28] MEDS: DOCUSATE SODIUM 50 MG/SENNA 8.6 MG TAB PO SCH ×2 (09:00→20:52)
[2018-02-28] MEDS ORDERED: ERYT200S2 PO (10:33)
--- NOTE | 2018-02-28 10:37 | HHI.DCPOC ---
Discharge Care Plan Diagnosis: (1) Orthostatic hypotension (2) Gastroparesis (3) Frequent falls (4) DM (diabetes mellitus), type 2, uncontrolled w/neurologic complication Goals to Promote Your Health * To prevent worsening of your condition and complications * To maintain your health at the optimal level Directions to Meet Your Goals Take your medications as prescribed Follow your dietary instruction Follow activity as directed Keep your appointments as scheduled Take your immunizations and boosters as scheduled If your symptoms worsen call your PCP, if no PCP go to Urgent Care Center or Emergency Room Smoking is Dangerous to Your Health. Avoid second hand smoke Call the 24-hour hour crisis hotline for domestic abuse at Allan Lindsey MD R2 Feb 28, 2018 10:37
[2018-02-28] MEDS: ERYTHROMYCIN ETHYLSUCCINATE 200 MG/5 ML SUSP 100 ML BOTTLE PO SCH ×3 (11:04→17:22)
[2018-02-28] MEDS: MIDODRINE 5 MG TAB PO SCH ×2 (11:05→14:06)
[2018-02-28] MEDS: INSULIN DETEMIR 100 UNITS/ML VIAL SQ SCH ×2 (11:08→20:52)
[2018-02-28] MEDS: SODIUM CHLORIDE 0.9% FLUSH 10 ML FLUSH IV FLUSH SCH ×2 (11:09→20:52)
[2018-02-28] MEDS: ENOXAPARIN SODIUM 40 MG/0.4 ML SYRINGE SQ SCH (11:09)
--- NOTE | 2018-02-28 11:16 | HHI.FPPN ---
Subjective Remarks No acute events overnight. Continues to have significant orthostatic symptoms. Nausea persistent but improved somewhat with erythromycin. No CP, SOB, or abdominal pain. Still feels weak. Objective Vitals Vital Signs Date Time Temp Pulse Resp B/P (MAP) Pulse Ox O2 Delivery O2 Flow Rate FiO2 02/28/18 08:40 98.3 81 16 160/94 (116) 97 02/28/18 03:13 98.7 72 18 147/64 (91) 98 02/27/18 23:33 98.4 71 18 134/71 (92) 98 02/27/18 21:09 101/58 (72) 75/48 (57) 02/27/18 20:02 98.4 78 18 89/55 (66) 98 79/49 (59) 59/33 (42) 02/27/18 14:43 98.6 72 18 181/98 (125) 98 133/75 (94) 79/51 (60) I/O 02/27/18 02/27/18 02/27/18 02/28/18 02/28/18 02/28/18 07:00 15:00 23:00 07:00 15:00 23:00 Intake Total 480 ml 480 ml Balance 480 ml 480 ml Intake Oral 480 ml 480 ml # Voids 2 2 3 Result Diagram: 02/27/18 0620 02/27/18 0420 Imaging Last Impressions Abdomen X-Ray 02/26/181819 Signed Impressions: Service Date/Time: Monday, February 26, 2018 18:36 - CONCLUSION: Benign- appearing abdomen. Rc Oreilly MD Chest X-Ray 02/26/181818 Signed Impressions: Service Date/Time: Monday, February 26, 2018 18:34 - CONCLUSION: No acute abnormality demonstrated. Rc Oreilly MD Objective Remarks GEN: Thin frail adult white female who appears older than stated age resting in bed in NAD CV: NRRR, normal S1/S2, no MRG Lungs: CTAB, no crackles or wheezes Abd: Soft, NDNT MSK: No peripheral edema Neuro: Awake and alert, moves all extremities without difficulty. Medications and IVs Current Medications Medications (Trade) Dose Ordered Sig/Mattie Route Start Time Stop Time Status Last Admin (NS Flush) 2 ml UNSCH PRN IV FLUSH 02/26/18 22:00 (NS Flush) 2 ml BID IV FLUSH 02/27/18 09:00 02/27/18 10:16 (Tylenol) 650 mg Q4H PRN PO 02/26/18 22:00 (Zofran Inj) 4 mg Q6H PRN IVP 02/26/18 22:00 02/27/18 04:02 (Narcan Inj) 0.4 mg UNSCH PRN IV PUSH 02/26/18 22:00 (Tamiko-Colace) 1 tab BID PO 02/27/18 09:00 02/27/18 22:18 (Milk Of Magnesia Liq) 30 ml Q12H PRN PO 02/26/18 22:00 (Senokot) 17.2 mg Q12H PRN PO 02/26/18 22:00 (Dulcolax Supp) 10 mg DAILY PRN RECTAL 02/26/18 22:00 (Lactulose Liq) 30 ml DAILY PRN PO 02/26/18 22:00 (Levemir Inj) 5 units BID SQ 02/26/18 22:15 02/27/18 22:07 (Proamatine) 10 mg TID@07,12,17 PO 02/27/18 07:00 02/27/18 19:40 Sodium Chloride 1,000 ml @ 105 mls/hr Q9H32M IV 02/26/18 22:15 02/27/18 22:10 (Lovenox Inj) 40 mg Q24H SQ 02/27/18 09:00 02/27/18 10:18 (D50w (Vial) Inj) 50 ml UNSCH PRN IV PUSH 02/27/18 01:15 (Glucagon Inj) 1 mg UNSCH PRN OTHER 02/27/18 01:15 (NovoLOG SUPPLEMENTAL SCALE) 1 ACHS SLIDING SCALE SQ 02/27/18 08:00 02/27/18 22:08 (Ees 200 Mg/5 ml Liq) 200 mg TIDAC PO 02/27/18 12:00 02/27/18 19:40 A/P Assessment and Plan 52-year-old white female with past medical history of hypotension, diabetes presenting with: Problem List: (1) Orthostatic hypotension ICD Codes: I95.1 - Orthostatic hypotension Status: Chronic Plan: Patient has a history of hypotension/falls and is on midodrine at home. States that PCP recently increased her midodrine to 10 mg 3 times daily. Since then she has been having some dizziness and lightheadedness with standing. However, upon chart review patient has had this problem since 2017. Vitals done in the ED show orthostatic hypotension. May have been worsened by acute vomiting and dehydration. -NS at 105 mLs/hour -Continue at home midodrine 10 mg p.o. 3 times daily to increase blood pressure -Repeat orthostatics prior to discharge to ensure MAP > 60 on standing -On discharge add salt tabs 1 gm daily -Hold at home gabapentin which can lead to dizziness; can resume on discharge -Add compression stockings which may help orthostasis somewhat -PT recommending rehab, but patient had just left rehab center a couple weeks ago and does not wish to go back. She had been completing ADLs at home without much difficulty. Will consult CM for HH PT. Counselled that this plan may put her at risk of falls and is not the ideal recommendation. Patient understood and accepts. -Offered fludrocortisone which patient declined, preferring to talk to PCP first (2) Abdominal pain ICD Codes: R10.9 - Unspecified abdominal pain Status: Resolved Plan: By history and response to erythromycin yesterday, likely due to chronic gastroparesis. Pain now improved. Abdominal x-ray on admission shows a benign appearing abdomen. -DC with erythromycin liquid TIDAC (200 mg) -F/u with PCP and refer to GI (3) Cough ICD Codes: R05 - Cough Status: Acute Plan: Improved today Patient states that she has had a cough for few days at times productive of clear sputum. Along with her symptom of nasal congestion is likely due to a viral etiology. Pt also has a hx of asthma Chest x-ray on admission shows no acute abnormality -F/u with PCP (4) Acute kidney injury ICD Codes: N17.9 - Acute kidney failure, unspecified Status: Resolved Plan: Resolved with IV hydration (5) Constipation ICD Codes: K59.00 - Constipation Status: Chronic Plan: Patient states that her last bowel movement was greater than a month ago when she was in rehab. Although this time period may not be likely, will start a bowel regimen. -Tamiko-Colace 1 tab p.o. twice daily, escalate regimen as needed, full bowel regimen has been ordered (6) DM (diabetes mellitus) ICD Codes: E11.9 - DM (diabetes mellitus) Status: Chronic Plan: Patient admits that her blood sugars are not well controlled at home and admits to noncompliance. Fasting glucose is usually 179. BSG last 24 hours 101-178 -Continue at home Levemir 5 units twice daily -f/u with pcp (7) Hepatitis C ICD Codes: B19.20 - Unspecified viral hepatitis C without hepatic coma Status: Chronic Plan: Patient with a history of hepatitis C. Not on any at home medications. Alkaline phosphatase elevated on admission to [facility] Recommend GI follow up on discharge (8) FEN Status: Acute Plan: Fluids: NS @ 105ml/hr Electrolytes: monitor and replete as needed Nutrition: 1800 ADA diet DVT Prophylaxis: Early ambulation. Lovenox 40mg subQ q24hr GI Prophylaxis: None indicated at this time Pain/fever management: Tylenol Dispo: Home today with home health PT Problem Qualifiers (1) Constipation: Qualified Codes: K59.00 - Constipation, unspecified (2) DM (diabetes mellitus): Qualified Codes: E11.69 - Type 2 diabetes mellitus with other specified complication (3) Hepatitis C: Qualified Codes: B18.2 - Chronic viral hepatitis C Allan Lindsey MD R2 Feb 28, 2018 11:16 am
--- NOTE | 2018-02-28 11:18 | HHI.DS ---
Discharge Summary Admission Date Feb 26, 2018 at 9:04 pm Discharge Date: Feb 28, 2018 Admitting Diagnosis ORTHOSTATIC HYPOTENSION; NEAR SYNCOPE (1) Orthostatic hypotension Diagnosis: Principal ICD Codes: I95.1 - Orthostatic hypotension Status: Chronic (2) Abdominal pain Diagnosis: Principal ICD Codes: R10.9 - Unspecified abdominal pain Status: Resolved (3) Cough Diagnosis: Secondary ICD Codes: R05 - Cough Status: Acute (4) Acute kidney injury Diagnosis: Secondary ICD Codes: N17.9 - Acute kidney failure, unspecified Status: Resolved (5) Constipation Diagnosis: Secondary ICD Codes: K59.00 - Constipation Status: Chronic (6) DM (diabetes mellitus) Diagnosis: Secondary ICD Codes: E11.9 - DM (diabetes mellitus) Status: Chronic (7) Hepatitis C Diagnosis: Secondary ICD Codes: B19.20 - Unspecified viral hepatitis C without hepatic coma Status: Chronic Brief History Ms. Arechiga is a 52-year-old white female with past medical history of hypotension , diabetes mellitus, and hepatitis C presenting to the ED today with abdominal pain and vomiting. She states that the symptoms started a few days ago. Describes her abdominal pain as diffuse, 9/10 sharp, nonradiating pain that is worse with vomiting, nothing makes it better. Of note she states that her last bowel movement was a month ago when she was in rehab. Although she is unsure if this is actually correct. She had vomited twice today. Nonbloody, nonbilious, brownish in color. She ate refried beans and Ramen noodles which were said to have vomiting this morning and then vomited after coffee later on. She was able to keep a little food down. She is also had a cough that is sometimes productive of clear sputum. She has had this for a few days as well. No pleuritic chest pain, no shortness of breath. Is having some nasal congestion. When discussing her blood pressure she states that after she takes her medications especially the midodrine, she feels dizzy and lightheaded. She fell 2 weeks ago when she had gotten up to stand and walk for a few steps. She has not fallen since. Had a Holter monitor placed today with Dr. Cohn CBC/BMP: 02/27/18 0620 02/27/18 0420 Significant Findings Laboratory Tests Test 02/26/18 14:15 02/26/18 16:00 02/27/18 04:20 02/27/18 06:20 Urine Protein GREATER THAN 600 mg/dL Urine Leukocyte Esterase MOD (NEG) Hemoglobin 11.1 GM/DL (11.6-15.3) 11.0 GM/DL (11.6-15.3) Hematocrit 33.0 % (35.0-46.0) 32.2 % (35.0-46.0) Monocytes (%) (Auto) 10.2 % (0.0-8.0) 8.8 % (0.0-8.0) Creatinine 1.06 MG/DL (0.50-1.00) Random Glucose 190 MG/DL (74-106) 163 MG/DL (74-106) Total Protein 8.5 GM/DL (6.4-8.2) Alkaline Phosphatase 134 U/L (45-117) 123 U/L (45-117) Aspartate Amino Transf (AST/SGOT) 7 U/L (15-37) 10 U/L (15-37) Sodium Level 135 MEQ/L (136-145) Chloride Level 97 MEQ/L (98-107) Estimat Glomerular Filtration Rate 55 ML/MIN (>89) 66 ML/MIN (>89) Troponin I LESS THAN 0.02 NG/ML Albumin 3.3 GM/DL (3.4-5.0) White Blood Count 3.8 TH/MM3 (4.0-11.0) Red Blood Count 3.94 MIL/MM3 (4.00-5.30) Lymphocytes # (Auto) 0.9 TH/MM3 (1.0-4.8) PE at Discharge GEN: Thin frail adult white female who appears older than stated age resting in bed in NAD CV: NRRR, normal S1/S2, no MRG Lungs: CTAB, no crackles or wheezes Abd: Soft, NDNT MSK: No peripheral edema Neuro: Awake and alert, moves all extremities without difficulty. Hospital Course 52 yo with DM, gastroparesis, hep C, orthostatic hypotension admitted for orthostasis and abdominal pain. Orthostasis improved to baseline with IV fluids. Abdominal pain likely related to gastroparesis and improved slightly with erythromycin. PT was consulted who recommended inpatient rehab, which patient declined because she had just left a rehab center and would prefer home health or outpatient PT. Medically she is stable for discharge. Pt Condition on Discharge: Stable Discharge Disposition: Disch w/ Home Health Serv Discharge Instructions DIET: Follow Instructions for: As Tolerated, No Restrictions Additional Diet Instructions: Small, frequent meals Activities you can perform: Regular-No Restrictions Other Activity Instructions: Sit up slowly, sit for a minute, then stand up slowly when getting up Follow up Referrals: Gastroenterology - 2 Weeks PCP Follow-up - 1 Week New Medications: Sodium Chloride (Sodium Chloride) 1 Gram Tab 1 GM PO DAILY for Electrolyte Replacement, #30 TAB 0 Refills Erythromycin Ethylsuccinate Liq (E.E.S. Liq) 200 Mg/5 Ml Susp 200 MG PO TIDAC, #1 BOTTLE Fludrocortisone (Fludrocortisone) 0.1 Mg Tab 0.1 MG PO DAILY, #30 TAB Continued Medications: Gabapentin (Gabapentin) 400 Mg Cap 400 MG PO TID, #270 CAP 3 Refills Insulin Detemir Inj (Levemir Inj) 1,000 unit/ 10 ML Vial 5 UNITS SQ BID for Blood Sugar Management, VIAL 0 Refills Do not mix with any other Insulin. Midodrine (Midodrine) 5 Mg Tab 10 MG PO TID@07,12,17, #180 TAB Allan Lindsey MD R2 Feb 28, 2018 11:18 am
[2018-02-28] MEDS ORDERED: FLUDROCORTISONE ACETATE 0.1 MG TAB PO ONE (12:30)
[2018-02-28] MEDS ORDERED: FLUD.1 PO (14:03)
[2018-02-28] MEDS ORDERED: SODI1TAB PO (14:03)
--- NOTE | 2018-02-28 14:58 | HHI.FF ---
Face to Face Verification Diagnosis: (1) Orthostatic hypotension (2) Gastroparesis (3) Frequent falls (4) DM (diabetes mellitus), type 2, uncontrolled w/neurologic complication Physical Therapy Order: Evaluate and Treat Home Health Nursing Order: Medical education Signs/symptoms of disease process Medication education-adverse effect Nursing assessment with vital signs I have seen patient Jaqueline Arechiga on 02/28/18. My clinical findings support the need for the requested home health care services because: Ltd mobility - disease progression Deconditioned w/ increased weakness Med compliance is questionable Limited ability to care for self Need for psychosocial assistance High risk of falls I certify that my clinical findings support that this patient is homebound because: Unsteady gait/balance Need for psychosocial assistance Allan Lindsey MD R2 Feb 28, 2018 2:58 pm
[2018-02-28] MEDS ORDERED: hydrALAZINE HCL 10 MG TAB PO ONE (17:15)
[2018-02-28] MEDS ORDERED: hydrALAZINE HCL 10 MG TAB PO PRN (17:30)
[2018-02-28] MEDS ORDERED: PILL SPLITTER OTHER PRN (17:45)
[2018-03-01 01:06] VITALS: BP 156/78; PULSE 69; RESP 16; TEMP 98.3; O2SAT 98
[2018-03-01 04:19] VITALS: BP 111/59; PULSE 76; RESP 16; TEMP 98.1; O2SAT 98
[2018-03-01] MEDS: INSULIN ASPART SUPPLEMENTAL SCALE SQ SCH ×2 (08:00→12:51)
[2018-03-01 08:16] VITALS: BP 104/63; PULSE 84; RESP 16; TEMP 97.3; O2SAT 100
[2018-03-01] MEDS ORDERED: FLUDROCORTISONE ACETATE 0.1 MG TAB PO SCH (09:00)
[2018-03-01] MEDS: ERYTHROMYCIN ETHYLSUCCINATE 200 MG/5 ML SUSP 100 ML BOTTLE PO SCH ×2 (09:01→12:49)
[2018-03-01] MEDS: ENOXAPARIN SODIUM 40 MG/0.4 ML SYRINGE SQ SCH (09:03)
[2018-03-01] MEDS: DOCUSATE SODIUM 50 MG/SENNA 8.6 MG TAB PO SCH (09:03)
[2018-03-01] MEDS: INSULIN DETEMIR 100 UNITS/ML VIAL SQ SCH (09:03)
[2018-03-01] MEDS: SODIUM CHLORIDE 0.9% FLUSH 10 ML FLUSH IV FLUSH SCH (09:09)
[2018-03-01 10:31] LABS: AUTOMATED NEUTROPHIL # 2.2 TH/MM3 (1.8-7.7); BASOPHIL % 1.1 % (0.0-2.0); EOSINOPHIL # 0.1 TH/MM3 (0-0.4); EOSINOPHIL % 1.7 % (0.0-4.0); HEMATOCRIT 32.6 % (35.0-46.0); HEMOGLOBIN 10.9 GM/DL (11.6-15.3); MEAN CELL VOLUME 82.5 FL (80.0-100.0); MEAN CORPUSCULAR HEMOGLOBIN 27.6 PG (27.0-34.0); MEAN CORPUSCULAR HGB CONC 33.4 % (32.0-36.0); MEAN PLATELET VOLUME 7.4 FL (7.0-11.0); MONO % 7.9 % (0.0-8.0); MONOCYTE # 0.3 TH/MM3 (0-0.9); NEUT % 61.3 % (16.0-70.0); PLATELET COUNT 254 TH/MM3 (150-450); RED BLOOD COUNT 3.95 MIL/MM3 (4.00-5.30); RED CELL DISTRIBUTION WIDTH 14.6 % (11.6-17.2); WHITE BLOOD COUNT 3.7 TH/MM3 (4.0-11.0)
[2018-03-01 10:58] LABS: ALBUMIN 3.4 GM/DL (3.4-5.0); ALT (GPT) 14 U/L (10-53); AST (GOT) 12 U/L (15-37); BICARBONATE 29.8 MEQ/L (21.0-32.0); BLOOD UREA NITROGEN 14 MG/DL (7-18); CALCIUM 9.6 MG/DL (8.5-10.1); CHLORIDE 101 MEQ/L (98-107); CREATININE 0.81 MG/DL (0.50-1.00); GLOMERULAR FILTRATION RATE 75 ML/MIN (>89); GLUCOSE,RANDOM 124 MG/DL (74-106); SODIUM (NA) 138 MEQ/L (136-145)
[2018-03-01 11:01] LABS: ALKALINE PHOSPHATASE 108 U/L (45-117); TOTAL BILIRUBIN ADULT 0.4 MG/DL (0.2-1.0); TOTAL PROTEIN 7.9 GM/DL (6.4-8.2)
[2018-03-01 11:13] VITALS: BP_SYST 131; BP_SYST 155; BP_SYST 84; BP_DIAS 50; BP_DIAS 68; BP_DIAS 87; PULSE 87; RESP 16; TEMP 97.6; O2SAT 98
[2018-03-01] MEDS ORDERED: WALKER GLIDE WH1 MI1 (11:29)
--- NOTE | 2018-03-01 11:35 | HHI.FF ---
Face to Face Verification Diagnosis: (1) Orthostatic hypotension (2) Gastroparesis (3) Frequent falls (4) DM (diabetes mellitus), type 2, uncontrolled w/neurologic complication Physical Therapy Order: Evaluate and Treat Home Health Nursing Order: Medical education Signs/symptoms of disease process Diabetic education Medication education-adverse effect Nursing assessment with vital signs I have seen patient Jaqueline Arechiga on 03/01/18. My clinical findings support the need for the requested home health care services because: Ltd mobility - disease progression Deconditioned w/ increased weakness Med compliance is questionable Need for psychosocial assistance High risk of falls I certify that my clinical findings support that this patient is homebound because: Unsteady gait/balance Need for psychosocial assistance Allan Lindsey MD R2 Mar 01, 2018 11:35
--- NOTE | 2018-03-01 11:36 | HHI.FPPN ---
Subjective Remarks Patient seen and examined at bedside. No acute events overnight. Patient had episodes of elevated blood pressure yesterday afternoon up to 210/106. Patient did well overnight, blood pressure normalized this morning to104/63. Denies chest pain, dizziness, or shortness of breath. No complaints. Objective Vitals Vital Signs Date Time Temp Pulse Resp B/P (MAP) Pulse Ox O2 Delivery O2 Flow Rate FiO2 03/01/18 08:16 97.3 84 16 104/63 (77) 100 03/01/18 04:19 98.1 76 16 111/59 (76) 98 111/59 (76) 03/01/18 01:06 98.3 69 16 156/78 (104) 98 02/28/18 20:50 70 18 111/59 (76) 97 02/28/18 16:52 210/106 (140) 02/28/18 16:28 202/106 (138) Automatic Cuff 02/28/18 15:41 76 207/106 (139) 02/28/18 15:18 88 197/98 (131) 02/28/18 15:12 82 16 171/103 (125) 100 95/63 (74) 02/28/18 15:06 197/98 (131) 02/28/18 12:18 98.0 88 16 143/83 (103) 100 I/O 02/28/18 02/28/18 02/28/18 03/01/18 03/01/18 03/01/18 07:00 15:00 23:00 07:00 15:00 23:00 Intake Total 480 ml Balance 480 ml Intake Oral 480 ml # Voids 3 2 1 2 # Bowel Movements 1 2 Result Diagram: 03/01/18 1013 03/01/18 1013 Objective Remarks GEN: Thin frail adult white female who appears older than stated age siting up in bed in NAD CV: NRRR, normal S1/S2, no MRG Lungs: CTAB, no crackles or wheezes Abd: Soft, NDNT MSK: No peripheral edema Neuro: Awake and alert, moves all extremities without difficulty. A/P Assessment and Plan 52-year-old white female with past medical history of hypotension, diabetes presenting with: Discharge Planning Results of repeat orthostatic blood pressures today Problem List: (1) Orthostatic hypotension ICD Codes: I95.1 - Orthostatic hypotension Status: Chronic Plan: Patient has a history of hypotension/falls and is on midodrine at home. States that PCP recently increased her midodrine to 10 mg 3 times daily. Since then she has been having some dizziness and lightheadedness with standing. However, upon chart review patient has had this problem since 2017. Vitals done in the ED show orthostatic hypotension. May have been worsened by acute vomiting and dehydration. -NS at 105 mLs/hour -home [id number] mg p.o. 3 times held yesterday and resumed today due to increase blood pressures. -Repeat orthostatics prior to discharge to ensure MAP > 60 on standing -On discharge add salt tabs 1 gm daily -Hold at home gabapentin which can lead to dizziness; can resume on discharge -Add compression stockings which may help orthostasis somewhat -PT recommending rehab, but patient had just left rehab center a couple weeks ago and does not wish to go back. She had been completing ADLs at home without much difficulty. Will consult CM for HH PT. Counselled that this plan may put her at risk of falls and is not the ideal recommendation. Patient understood and accepts. -Offered fludrocortisone yesterday before blood pressures increased which patient declined, preferring to talk to PCP first (2) Abdominal pain ICD Codes: R10.9 - Unspecified abdominal pain Status: Resolved Plan: By history and response to erythromycin, likely due to chronic gastroparesis. Pain now improved. Abdominal x-ray on admission shows a benign appearing abdomen. -DC with erythromycin liquid TIDAC (200 mg) -F/u with PCP and refer to GI (3) Cough ICD Codes: R05 - Cough Status: Acute Plan: Improved today Patient states that she has had a cough for few days at times productive of clear sputum. Along with her symptom of nasal congestion is likely due to a viral etiology. Pt also has a hx of asthma Chest x-ray on admission shows no acute abnormality -F/u with PCP (4) Acute kidney injury ICD Codes: N17.9 - Acute kidney failure, unspecified Status: Resolved Plan: Resolved with IV hydration (5) Constipation ICD Codes: K59.00 - Constipation Status: Chronic Plan: Patient states that her last bowel movement was greater than a month ago when she was in rehab. Although this time period may not be likely, will start a bowel regimen. -Had one bowel movement yesterday and 2 movements today -Tamiko-Colace 1 tab p.o. twice daily, escalate regimen as needed, full bowel regimen has been ordered (6) DM (diabetes mellitus) ICD Codes: E11.9 - DM (diabetes mellitus) Status: Chronic Plan: Patient admits that her blood sugars are not well controlled at home and admits to noncompliance. Fasting glucose is usually 179. BSG today 107 -Continue at home Levemir 5 units twice daily -f/u with pcp (7) Hepatitis C ICD Codes: B19.20 - Unspecified viral hepatitis C without hepatic coma Status: Chronic Plan: Patient with a history of hepatitis C. Not on any at home medications. Alkaline phosphatase elevated on admission to [facility] Recommend GI follow up on discharge (8) FEN Status: Acute Plan: Fluids: NS @ 105ml/hr Electrolytes: monitor and replete as needed Nutrition: 1800 ADA diet DVT Prophylaxis: Early ambulation. Lovenox 40mg subQ q24hr GI Prophylaxis: None indicated at this time Pain/fever management: Tylenol Dispo: Home today with home health PT Problem Qualifiers (1) Constipation: Qualified Codes: K59.00 - Constipation, unspecified (2) DM (diabetes mellitus): Qualified Codes: E11.69 - Type 2 diabetes mellitus with other specified complication (3) Hepatitis C: Qualified Codes: B18.2 - Chronic viral hepatitis C Olga Curry MD, R1 Mar 01, 2018 11:36
[2018-03-01] MEDS: MIDODRINE 5 MG TAB PO SCH (11:58)
--- NOTE | 2018-03-01 13:32 | HHI.DS ---
Discharge Summary Admission Date Feb 26, 2018 at 21:04 Discharge Date: Mar 01, 2018 Admitting Diagnosis ORTHOSTATIC HYPOTENSION; NEAR SYNCOPE (1) Orthostatic hypotension Plan: Patient has a history of hypotension/falls and is on midodrine at home. States that PCP recently increased her midodrine to 10 mg 3 times daily. Since then she has been having some dizziness and lightheadedness with standing. However, upon chart review patient has had this problem since 2017. Vitals done in the ED show orthostatic hypotension. May have been worsened by acute vomiting and dehydration. -NS at 105 mLs/hour -home [id number] mg p.o. 3 times held yesterday and resumed today due to increase blood pressures. -Repeat orthostatics prior to discharge to ensure MAP > 60 on standing -On discharge add salt tabs 1 gm daily -Hold at home gabapentin which can lead to dizziness; can resume on discharge -Add compression stockings which may help orthostasis somewhat -PT recommending rehab, but patient had just left rehab center a couple weeks ago and does not wish to go back. She had been completing ADLs at home without much difficulty. Will consult CM for HH PT. Counselled that this plan may put her at risk of falls and is not the ideal recommendation. Patient understood and accepts. -Offered fludrocortisone yesterday before blood pressures increased which patient declined, preferring to talk to PCP first ICD Codes: I95.1 - Orthostatic hypotension Status: Chronic (2) Abdominal pain Plan: By history and response to erythromycin, likely due to chronic gastroparesis. Pain now improved. Abdominal x-ray on admission shows a benign appearing abdomen. -DC with erythromycin liquid TIDAC (200 mg) -F/u with PCP and refer to GI ICD Codes: R10.9 - Unspecified abdominal pain Status: Resolved (3) Cough Plan: Improved today Patient states that she has had a cough for few days at times productive of clear sputum. Along with her symptom of nasal congestion is likely due to a viral etiology. Pt also has a hx of asthma Chest x-ray on admission shows no acute abnormality -F/u with PCP ICD Codes: R05 - Cough Status: Acute (4) Acute kidney injury Plan: Resolved with IV hydration ICD Codes: N17.9 - Acute kidney failure, unspecified Status: Resolved (5) Constipation Plan: Patient states that her last bowel movement was greater than a month ago when she was in rehab. Although this time period may not be likely, will start a bowel regimen. -Had one bowel movement yesterday and 2 movements today -Tamiko-Colace 1 tab p.o. twice daily, escalate regimen as needed, full bowel regimen has been ordered ICD Codes: K59.00 - Constipation Status: Chronic (6) DM (diabetes mellitus) Plan: Patient admits that her blood sugars are not well controlled at home and admits to noncompliance. Fasting glucose is usually 179. BSG today 107 -Continue at home Levemir 5 units twice daily -f/u with pcp ICD Codes: E11.9 - DM (diabetes mellitus) Status: Chronic (7) Hepatitis C Plan: Patient with a history of hepatitis C. Not on any at home medications. Alkaline phosphatase elevated on admission to 134 Recommend GI follow up on discharge ICD Codes: B19.20 - Unspecified viral hepatitis C without hepatic coma Status: Chronic Brief History Ms. Arechiga is a 52-year-old white female with past medical history of hypotension , diabetes mellitus, and hepatitis C presenting to the ED today with abdominal pain and vomiting. She states that the symptoms started a few days ago. Describes her abdominal pain as diffuse, 9/10 sharp, nonradiating pain that is worse with vomiting, nothing makes it better. Of note she states that her last bowel movement was a month ago when she was in rehab. Although she is unsure if this is actually correct. She had vomited twice today. Nonbloody, nonbilious, brownish in color. She ate refried beans and Ramen noodles which were said to have vomiting this morning and then vomited after coffee later on. She was able to keep a little food down. She is also had a cough that is sometimes productive of clear sputum. She has had this for a few days as well. No pleuritic chest pain, no shortness of breath. Is having some nasal congestion. When discussing her blood pressure she states that after she takes her medications especially the midodrine, she feels dizzy and lightheaded. She fell 2 weeks ago when she had gotten up to stand and walk for a few steps. She has not fallen since. Had a Holter monitor placed today with Dr. Cohn CBC/BMP: 03/01/18 1013 03/01/18 1013 Significant Findings Laboratory Tests Test 02/26/18 14:15 02/26/18 16:00 02/27/18 04:20 02/27/18 06:20 Urine Protein GREATER THAN 600 mg/dL Urine Leukocyte Esterase MOD (NEG) Hemoglobin 11.1 GM/DL (11.6-15.3) 11.0 GM/DL (11.6-15.3) Hematocrit 33.0 % (35.0-46.0) 32.2 % (35.0-46.0) Monocytes (%) (Auto) 10.2 % (0.0-8.0) 8.8 % (0.0-8.0) Creatinine 1.06 MG/DL (0.50-1.00) Random Glucose 190 MG/DL (74-106) 163 MG/DL (74-106) Total Protein 8.5 GM/DL (6.4-8.2) Alkaline Phosphatase 134 U/L (45-117) 123 U/L (45-117) Aspartate Amino Transf (AST/SGOT) 7 U/L (15-37) 10 U/L (15-37) Sodium Level 135 MEQ/L (136-145) Chloride Level 97 MEQ/L (98-107) Estimat Glomerular Filtration Rate 55 ML/MIN (>89) 66 ML/MIN (>89) Troponin I LESS THAN 0.02 NG/ML Albumin 3.3 GM/DL (3.4-5.0) White Blood Count 3.8 TH/MM3 (4.0-11.0) Red Blood Count 3.94 MIL/MM3 (4.00-5.30) Lymphocytes # (Auto) 0.9 TH/MM3 (1.0-4.8) Test 03/01/18 10:13 White Blood Count 3.7 TH/MM3 (4.0-11.0) Red Blood Count 3.95 MIL/MM3 (4.00-5.30) Hemoglobin 10.9 GM/DL (11.6-15.3) Hematocrit 32.6 % (35.0-46.0) Random Glucose 124 MG/DL (74-106) Aspartate Amino Transf (AST/SGOT) 12 U/L (15-37) Estimat Glomerular Filtration Rate 75 ML/MIN (>89) Imaging Last Impressions Abdomen X-Ray 02/26/181819 Signed Impressions: Service Date/Time: Monday, February 26, 2018 18:36 - CONCLUSION: Benign- appearing abdomen. Rc Oreilly MD Chest X-Ray 02/26/181818 Signed Impressions: Service Date/Time: Monday, February 26, 2018 18:34 - CONCLUSION: No acute abnormality demonstrated. Rc Oreilly MD PE at Discharge GEN: Thin frail adult white female who appears older than stated age siting up in bed in NAD CV: NRRR, normal S1/S2, no MRG Lungs: CTAB, no crackles or wheezes Abd: Soft, NDNT MSK: No peripheral edema Neuro: Awake and alert, moves all extremities without difficulty. Pt Condition on Discharge: Stable Discharge Disposition: Disch w/ Home Health Serv Discharge Instructions DIET: Follow Instructions for: As Tolerated, No Restrictions Additional Diet Instructions: Small, frequent meals Activities you can perform: Regular-No Restrictions Other Activity Instructions: Sit up slowly, sit for a minute, then stand up slowly when getting up Follow up Referrals: Gastroenterology - 2 Weeks PCP Follow-up - 1 Week New Medications: Sodium Chloride (Sodium Chloride) 1 Gram Tab 1 GM PO DAILY for Electrolyte Replacement, #30 TAB 0 Refills Walker [place] Wheels/5 Adj ([place] Wheels/5 Adj) 1 Mis Mis EA .XX DIRECTED, #1 0 Refills Erythromycin Ethylsuccinate Liq (E.E.S. Liq) 200 Mg/5 Ml Susp 200 MG PO TIDAC, #1 BOTTLE Continued Medications: Gabapentin (Gabapentin) 400 Mg Cap 400 MG PO TID, #270 CAP 3 Refills Insulin Detemir Inj (Levemir Inj) 1,000 unit/ 10 ML Vial 5 UNITS SQ BID for Blood Sugar Management, VIAL 0 Refills Do not mix with any other Insulin. Midodrine (Midodrine) 5 Mg Tab 10 MG PO TID@07,12,17, #180 TAB Olga Curry MD, R1 Mar 01, 2018 13:32
== END 2018-03-01 14:34 | disposition home or self-care (01) ==
LOC: NEPD 13:57 → NEDA 21:04 → NEPHCDU 22:56
PROVIDERS: ADMIT Family Medicine; ATTEND Family Medicine
DX: I95.1 Orthostatic hypotension (principal); E11.69 Type 2 diabetes mellitus with other specified complication; N17.9 Acute kidney failure, unspecified; E86.0 Dehydration; R74.8 Abnormal levels of other serum enzymes; B18.2 Chronic viral hepatitis C; K74.60 Unspecified cirrhosis of liver; G90.1 Familial dysautonomia [Riley-Day]; I48.91 Unspecified atrial fibrillation; J44.9 Chronic obstructive pulmonary disease, unspecified; K31.84 Gastroparesis; R29.6 Repeated falls; Z79.4 Long term (current) use of insulin; Z86.73 Personal history of transient ischemic attack (TIA), and cerebral infarction without residual deficits; Z89.412 Acquired absence of left great toe; Z95.0 Presence of cardiac pacemaker; Z87.891 Personal history of nicotine dependence; Z87.442 Personal history of urinary calculi
CPT/HCPCS: 71045; 74018; 80053; 81001; 82550; 82948; 83690; 83735; 84484; 85025; 93005; 96361; 96372; 96374; 97110; 97116; 97162; 97167; 99285; G0378; G8987; G8988; J1642; J1650; J1815; J2405; J7030

== ENCOUNTER 2018-03-02 14:01 | Observation (INO) | payer MEDICARE ==
[~2018-03-02] VITALS: Ht 172.7 cm; Wt 65.0 kg
[~2018-03-02 14:01] MED LIST changes: -ATOR40TA16 PO; -COLL30T TOPICAL; +ERYT200S2 PO; -FERR325T20 PO; -PLAV75TA29 PO; -SITA1TAB2 PO; +SODI1TAB PO; +WALKER GLIDE WH1 MI1
[2018-03-02] MEDS ORDERED: SODIUM CHLORIDE 0.9% FLUSH 10 ML FLUSH IVF PRN (14:30)
--- NOTE | 2018-03-02 14:32 | PD ---
HPI Chief Complaint: Syncope/Near-Syncope Time Seen by Provider: 14:17 Travel History International Travel<30 days: No Contact w/Intl Traveler<30days: No History of Present Illness HPI 52 y/o female presents with syncopal event that happened today at the office while she was seing her primary. She states before she fell she vomited. She denies any other concurrent complaints. She states she was recently in the hospital for episodes where she almost passed out but she never fully passed out. She denies any other concurrent complaints and does not recall the accident. She presents by ambulance. History is limited as patient does not recall event. PFSH Past Medical History Hx Anticoagulant Therapy: No Arthritis: No Asthma: Yes Atrial Fibrillation: Yes Autoimmune Disease: No Blood Disorders: No Anxiety: No Depression: No Heart Rhythm Problems: Yes (Pacemaker) Cancer: Yes (throat) Cardiovascular Problems: Yes High Cholesterol: No Chemotherapy: Yes Chest Pain: No Congestive Heart Failure: No COPD: Yes Cerebrovascular Accident: Yes Diabetes: Yes Diminished Hearing: No Endocrine: Yes Gastrointestinal Disorders: Yes (esophagitis, gastritis) GERD: No Glaucoma: No Genitourinary: Yes Headaches: Yes Hepatitis: Yes (HEP C) Hiatal Hernia: No Heparin Induced Thrombocytopen: No Hypertension: Yes Immune Disorder: No Implanted Vascular Access Dvce: Yes (PORT R CHEST) Kidney Stones: Yes Musculoskeletal: Yes Neurologic: Yes (diabetic peripheral neuropathy) Psychiatric: No Reproductive: No Respiratory: Yes Immunizations Current: Yes Migraines: Yes Myocardial Infarction: No Pancreatitis: Yes Radiation Therapy: Yes Renal Failure: No Seizures: No Sickle Cell Disease: No Sleep Apnea: No Thyroid Disease: No Triglycerides - High: Yes Ulcer: No PNEUMOCCOCAL Vaccine (Year): 2 Menopausal: Yes : 3 Para: 2 Miscarriage: 1 : 0 Ectopic : No Ovarian Cysts: No Tubal Ligation: No Past Surgical History Abdominal Surgery: Yes (appendectomy, cholecystectomy) AICD: No Appendectomy: Yes Arteriovenous Shunt: No Body Medical Devices: pacemaker Cardiac Surgery: Yes (pacemaker) Section: Yes (x1) Cholecystectomy: Yes Coronary Stent: Yes (L femoral stent ) Ear Surgery: No Endocrine Surgery: No Eye Surgery: No Genitourinary Surgery: No Hysterectomy: No Insulin Pump: No Joint Replacement: No Neurologic Surgery: No Oral Surgery: Yes (tonsillectomy) Pacemaker: Yes Thoracic Surgery: No Tonsillectomy: Yes Other Surgery: Yes (port placed 2015) Social History Alcohol Use: No (DENIES) Tobacco Use: No (QUIT) Substance Use: No (DENIES ) Allergies-Medications (Allergen,Severity, Reaction): Coded Allergies: tramadol (Verified Allergy, Intermediate, Rash, 02/26/18) MRI PRECAUTION (Verified Adverse Reaction, Severe, PACEMAKER IS NOT A BIOTRONIK OR MEDTRONIC 06/15/16 KMD, 02/26/18) PACEMAKER IS NOT A BIOTRONIK OR MEDTRONIC CONDITIONAL PACEMAKER. CALLED BOTH COMPANIES TO CONFIRM. metformin (Verified Adverse Reaction, Severe, DIARRHEA, 02/26/18) morphine (Verified Adverse Reaction, Severe, Dizziness, 02/26/18) oxycodone (Verified Adverse Reaction, Severe, Nausea/Vomiting, 02/26/18) prochlorperazine (Verified Adverse Reaction, Severe, ANXIETY, 02/26/18) ANXIETY Reported Meds & Prescriptions Reported Meds & Active Scripts Active Walker [place] Wheels/5 Adj (Device) 1 Mis Mis Ea .XX DIRECTED Sodium Chloride 1 Gram Tab 1 Gm PO DAILY E.E.S. Liq (Erythromycin Ethylsuccinate) 200 Mg/5 Ml Susp 200 Mg PO TIDAC Midodrine 5 Mg Tab 10 Mg PO TID@07,12,17 Gabapentin 400 Mg Cap 400 Mg PO TID Reported Levemir Inj (Insulin Detemir) 1,000 unit/ 10 ML Vial 5 Units SQ BID Do not mix with any other Insulin. Review of Systems Except as stated in HPI: all other systems reviewed are Neg Physical Exam Narrative GENERAL: 52-year-old female in no apparent distress SKIN: Focused skin assessment warm/dry. HEAD: Atraumatic. Normocephalic. EYES: Pupils equal and round. No scleral icterus. No injection or drainage. ENT: No nasal bleeding or discharge. Mucous membranes pink and moist. NECK: Trachea midline. CARDIOVASCULAR: Regular rate and rhythm. RESPIRATORY: No accessory muscle use. Clear to auscultation. Breath sounds equal bilaterally. GASTROINTESTINAL: Abdomen soft, non-tender, nondistended. MUSCULOSKELETAL: No obvious deformities. No clubbing. No cyanosis. No edema. NEUROLOGICAL: Awake and alert. Wheelchair-bound without change in neuro status per patient. Normal speech. Data Data Last Documented VS Vital Signs Date Time Temp Pulse Resp B/P (MAP) Pulse Ox O2 Delivery O2 Flow Rate FiO2 03/02/18 14:39 99.2 75 18 128/70 (89) 95 Room Air Orders Orders Electrocardiogram (03/02/18 14:17) Complete Blood Count With Diff (03/02/18 14:17) Comprehensive Metabolic Panel (03/02/18 14:17) Magnesium (Mg) (03/02/18 14:17) B-Type Natriuretic Peptide (03/02/18 14:17) Ckmb (Isoenzyme) Profile (03/02/18 14:17) Troponin I (03/02/18 14:17) Act Partial Throm Time (Ptt) (03/02/18 14:17) Prothrombin Time / Inr (Pt) (03/02/18 14:17) Urinalysis - C+S If Indicated (03/02/18 14:17) Chest, Single Ap (03/02/18 14:17) Ecg Monitoring (03/02/18 14:17) Iv Access Insert/Monitor (03/02/18 14:17) Oximetry (03/02/18 14:17) Sodium Chloride 0.9% Flush (Ns Flush) (03/02/18 14:30) Urine Culture (03/02/18 17:47) Ceftriaxone Inj (Rocephin Inj) (03/02/18 18:45) Lactic Acid (03/02/18 18:48) Admit Order (Ed Use Only) (03/02/18 18:48) Labs Laboratory Tests Test 03/02/18 15:22 03/02/18 16:17 03/02/18 17:47 White Blood Count 4.6 TH/MM3 Red Blood Count 4.05 MIL/MM3 Hemoglobin 11.1 GM/DL Hematocrit 33.4 % Mean Corpuscular Volume 82.5 FL Mean Corpuscular Hemoglobin 27.3 PG Mean Corpuscular Hemoglobin Concent 33.1 % Red Cell Distribution Width 14.7 % Platelet Count 273 TH/MM3 Mean Platelet Volume 7.6 FL Neutrophils (%) (Auto) 64.8 % Lymphocytes (%) (Auto) 22.7 % Monocytes (%) (Auto) 10.0 % Eosinophils (%) (Auto) 1.4 % Basophils (%) (Auto) 1.1 % Neutrophils # (Auto) 3.0 TH/MM3 Lymphocytes # (Auto) 1.0 TH/MM3 Monocytes # (Auto) 0.5 TH/MM3 Eosinophils # (Auto) 0.1 TH/MM3 Basophils # (Auto) 0.0 TH/MM3 CBC Comment DIFF FINAL Differential Comment Prothrombin Time 10.6 SEC Prothromb Time International Ratio 1.0 RATIO Activated Partial Thromboplast Time 24.0 SEC B-Type Natriuretic Peptide 17 PG/ML Blood Urea Nitrogen 21 MG/DL Creatinine 0.97 MG/DL Random Glucose 116 MG/DL Total Protein 7.9 GM/DL Albumin 3.5 GM/DL Calcium Level 9.7 MG/DL Magnesium Level 1.9 MG/DL Alkaline Phosphatase 104 U/L Aspartate Amino Transf (AST/SGOT) 9 U/L Alanine Aminotransferase (ALT/SGPT) 16 U/L Total Bilirubin 0.4 MG/DL Sodium Level 138 MEQ/L Potassium Level 4.1 MEQ/L Chloride Level 102 MEQ/L Carbon Dioxide Level 27.1 MEQ/L Anion Gap 9 MEQ/L Estimat Glomerular Filtration Rate 61 ML/MIN Total Creatine Kinase 27 U/L Troponin I LESS THAN 0.02 NG/ML Urine Color LIGHT-YELLOW Urine Turbidity HAZY Urine pH 5.5 Urine Specific [place] 1.012 Urine Protein TRACE mg/dL Urine Glucose (UA) NEG mg/dL Urine Ketones NEG mg/dL Urine Occult Blood TRACE Urine Nitrite POS Urine Bilirubin NEG Urine Urobilinogen LESS THAN 2.0 MG/DL Urine Leukocyte Esterase MOD Urine RBC 1 /hpf Urine WBC 34 /hpf Urine Squamous Epithelial Cells 5 /hpf Urine Transitional Epithelial Cells 1 /hpf Urine Amorphous Sediment RARE Urine Bacteria MANY /hpf Urine Hyaline Casts 3 /lpf Microscopic Urinalysis Comment CULTURE INDICATED MDM Medical Decision Making Medical Screen Exam Complete: Yes Emergency Medical Condition: Yes Medical Record Reviewed: Yes (Past history confirmed) Interpretation(s) CBC & BMP Diagram 03/02/18 15:22 03/02/18 16:17 Total Protein 7.9, Albumin 3.5, Calcium Level 9.7, Magnesium Level 1.9, Alkaline Phosphatase 104, Aspartate Amino Transf (AST/SGOT) 9 L, Alanine Aminotransferase (ALT/SGPT) 16, Total Bilirubin 0.4 Last 24 hours Impressions Chest X-Ray 03/02/18 6217 Signed Impressions: Service Date/Time: Friday, March 02, 2018 15:21 - CONCLUSION: Normal examination. Piotr Steward MD Differential Diagnosis Anemia, renal failure, vasovagal, cardiac Narrative Course Will check blood work, imaging and reevaluate ED workup shows UTI. Patient given Rocephin. Lactate added on. With comorbidities will observe for syncopal event. Patient agrees to plan Physician Communication Physician Communication resident team agree to admit with dr brush Diagnosis Primary Impression: Syncope Qualified Codes: R55 - Syncope and collapse Additional Impression: UTI (urinary tract infection) Qualified Codes: N39.0 - Urinary tract infection, site not specified Admitting Information Admitting Physician Requests: Observation Kendra Cage MD Mar 02, 2018 14:32
[2018-03-02 14:33] VITALS: BP 125/70; PULSE 78; RESP 18; TEMP 99.2; O2SAT 98
[2018-03-02 14:38] VITALS: PULSE 78; RESP 18; O2SAT 97
[2018-03-02 14:39] VITALS: BP 128/70; PULSE 75; RESP 18; TEMP 99.2; O2SAT 95
[2018-03-02 15:55] LABS: BASOPHIL % 1.1 % (0.0-2.0); EOSINOPHIL # 0.1 TH/MM3 (0-0.4); EOSINOPHIL % 1.4 % (0.0-4.0); HEMATOCRIT 33.4 % (35.0-46.0); HEMOGLOBIN 11.1 GM/DL (11.6-15.3); LYMPH % 22.7 % (9.0-44.0); MEAN CELL VOLUME 82.5 FL (80.0-100.0); MEAN CORPUSCULAR HEMOGLOBIN 27.3 PG (27.0-34.0); MEAN CORPUSCULAR HGB CONC 33.1 % (32.0-36.0); MEAN PLATELET VOLUME 7.6 FL (7.0-11.0); MONOCYTE # 0.5 TH/MM3 (0-0.9); NEUT % 64.8 % (16.0-70.0); PLATELET COUNT 273 TH/MM3 (150-450); RED BLOOD COUNT 4.05 MIL/MM3 (4.00-5.30); RED CELL DISTRIBUTION WIDTH 14.7 % (11.6-17.2); WHITE BLOOD COUNT 4.6 TH/MM3 (4.0-11.0)
[2018-03-02 15:56] LABS: PROTHROMBIN TIME - PATIENT 10.6 SEC (9.8-11.6)
--- NOTE | 2018-03-02 16:00 | RADRPT ---
EXAM DATE/TIME: 03/02/2018 15:21 [facility] COMPARISON: CHEST SINGLE AP, February 26, 2018, 18:34. INDICATIONS : Syncope and shortness of breath. MEDICAL HISTORY : Hypertension. Diabetes. SURGICAL HISTORY : None. ENCOUNTER: Initial ACUITY: 1 day PAIN SCORE: 0/10 LOCATION: Bilateral chest FINDINGS: A single view of the chest demonstrates the lungs to be symmetrically aerated without evidence of mas s, infiltrate or effusion. The cardiomediastinal contours are unremarkable. Osseous structures are intact. Left subclavian bipolar pacer. Right IJ S[place]is-p-Afcs catheter. CONCLUSION: Normal examination. Piotr Steward MD on March 02, 2018 at 15:57 Board Certified Radiologist. This report was verified electronically.
[2018-03-02 16:50] LABS: ALBUMIN 3.5 GM/DL (3.4-5.0); ALT (GPT) 16 U/L (10-53); AST (GOT) 9 U/L (15-37); BICARBONATE 27.1 MEQ/L (21.0-32.0); BLOOD UREA NITROGEN 21 MG/DL (7-18); CALCIUM 9.7 MG/DL (8.5-10.1); CHLORIDE 102 MEQ/L (98-107); CREATININE 0.97 MG/DL (0.50-1.00); GLOMERULAR FILTRATION RATE 61 ML/MIN (>89); GLUCOSE,RANDOM 116 MG/DL (74-106); MAGNESIUM 1.9 MG/DL (1.5-2.5); SODIUM (NA) 138 MEQ/L (136-145)
[2018-03-02 16:54] LABS: ALKALINE PHOSPHATASE 104 U/L (45-117); TOTAL BILIRUBIN ADULT 0.4 MG/DL (0.2-1.0); TOTAL PROTEIN 7.9 GM/DL (6.4-8.2); TROPONIN I LESS THAN 0.02 NG/ML (0.02-0.05)
[2018-03-02 18:21] LABS: AMORPHOUS SEDIMENT, URINE RARE; BACTERIA, URINE MANY /hpf; BILIRUBIN, URINE NEG (NEG); BLOOD, URINE TRACE (NEG); GLUCOSE,URINE NEG (NEG); HYALINE CAST, URINE 3 /lpf (RARE); KETONE, URINE NEG (NEG); NITRITE,URINE POS (NEG); PH, URINE 5.5 (5.0-8.5); SQUAMOUS EPITHELIAL CELL URINE 5 /hpf (0-5); TRANSITIONAL EPI CELLS, URINE 1 /hpf; URINE COLOR LIGHT-YELLOW (YELLW/STRAW); URINE LEUKOCYTE ESTERASE MOD (NEG)
[2018-03-02] MEDS ORDERED: cefTRIAXone INJ 1,000 MG in SODIUM CHLORIDE 0.9% INJ 100 ML IV ONE (18:45)
[2018-03-02 19:00] VITALS: BP 215/100; TEMP 98.5; O2SAT 100
[2018-03-02] MEDS ORDERED: GLUCAGON 1 MG/ML VIAL OTHER PRN (19:00)
[2018-03-02] MEDS ORDERED: LACTULOSE SYRUP 20 GM/30 ML CUP PO PRN (19:00)
[2018-03-02] MEDS ORDERED: ONDANSETRON HCL 4 MG/2 ML VIAL IVP PRN (19:00)
[2018-03-02] MEDS ORDERED: NALOXONE HCL 0.4 MG/ML AMP IV PUSH PRN (19:00)
[2018-03-02] MEDS ORDERED: ACETAMINOPHEN/HYDROcodone 325 MG/10 MG TAB PO PRN (19:00)
[2018-03-02] MEDS ORDERED: METOCLOPRAMIDE HCL 10 MG/2 ML VIAL IV PUSH PRN (19:00)
[2018-03-02] MEDS ORDERED: ACETAMINOPHEN/HYDROcodone 325 MG/5 MG TAB PO PRN (19:00)
[2018-03-02] MEDS ORDERED: BISACODYL 10 MG SUPP RECTAL PRN (19:00)
[2018-03-02] MEDS ORDERED: DEXTROSE 50% IN WATER 50 ML VIAL(D50) IV PUSH PRN (19:00)
[2018-03-02] MEDS ORDERED: SENNOSIDES 8.6 MG TAB PO PRN (19:00)
[2018-03-02] MEDS ORDERED: MAGNESIUM HYDROXIDE SUSP 30 ML CUP PO PRN (19:00)
[2018-03-02] MEDS ORDERED: HYDROmorphone HCL PF 1 MG/ML VIAL IV PUSH PRN ×2 (19:00)
[2018-03-02] MEDS ORDERED: SODIUM CHLORIDE 0.9% FLUSH 10 ML FLUSH IV FLUSH PRN ×2 (19:00)
[2018-03-02] MEDS ORDERED: ACETAMINOPHEN 325 MG TAB PO PRN ×2 (19:00→20:15)
--- NOTE | 2018-03-02 19:25 | HHI.HP ---
HPI Service Family Medicine Primary Care Physician Unknown Admission Diagnosis syncope, uti Diagnoses: International Travel<30 Days: No Contact w/Intl Traveler<30days: No Known Affected Area: No History of Present Illness 52 yo female with complicated PMH including oropharyngeal cancer in remission, diabetes with gastroparesis and neuropathy, and orthostasis presenting after a syncopal episode occurring at her physician's office. She was getting up from her wheelchair to get her weight measured when she got lightheaded and passed out. She woke up quickly and vomited a couple times. She did not have any chest pain or shortness of breath. She was taken by EVAC to the hospital for additional eval. (Allan Lindsey MD R2) Review of Systems Constitutional: DENIES: Fever, Chills Endocrine: DENIES: Abnorml menstrual pattern Eyes: DENIES: Blurred vision, Diplopia Ears, nose, mouth, throat: DENIES: Vertigo, Throat pain, Sinus Pain Respiratory: COMPLAINS OF: Cough, DENIES: Wheezing, Sputum production, Shortness of breath Cardiovascular: COMPLAINS OF: Syncope, DENIES: Chest pain, Palpitations Gastrointestinal: DENIES: Abdominal pain, Black stools, Bloody stools, Constipation, Diarrhea, Nausea, Vomiting Genitourinary: COMPLAINS OF: Urinary frequency, DENIES: Abnormal vaginal bleeding, Dysuria Musculoskeletal: DENIES: Joint pain, Muscle aches Integumentary: DENIES: Rash Hematologic/lymphatic: DENIES: Bruising Neurologic: COMPLAINS OF: Paresthesias, DENIES: Headache, Localized weakness, Tremor Psychiatric: DENIES: Anxiety, Depression (Allan Lindsey MD R2) Past Family Social History Past Medical History Hypotension Diabetes mellitus type 2 Hepatitis C 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 History of CVA Dysautonomia * Gastroparesis * Orthostatic hypotension Pacemaker Asthma Genital herpes and warts Osteoarthritis Cataracts Peripheral neuropathy Past Surgical History Appendectomy Cholecystectomy Tonsillectomy Amputation of left great toe Right 5th digit amputation Pacemaker placement Left femoral stent Reported Medications Reported Meds & Active Scripts Active Walker Gray Wheels/5 Adj (Device) 1 Mis Mis Ea .XX DIRECTED Sodium Chloride 1 Gram Tab 1 Gm PO DAILY E.E.S. Liq (Erythromycin Ethylsuccinate) 200 Mg/5 Ml Susp 200 Mg PO TIDAC Midodrine 5 Mg Tab 10 Mg PO TID@07,, Gabapentin 400 Mg Cap 400 Mg PO TID Reported Levemir Inj (Insulin Detemir) 1,000 unit/ 10 ML Vial 5 Units SQ BID Do not mix with any other Insulin. (Allan Lindsey MD R2) Allergies: Coded Allergies: tramadol (Verified Allergy, Intermediate, Rash, 02/26/18) MRI PRECAUTION (Verified Adverse Reaction, Severe, PACEMAKER IS NOT A BIOTRONIK OR MEDTRONIC 06/15/16 KMD, 02/26/18) PACEMAKER IS NOT A BIOTRONIK OR MEDTRONIC CONDITIONAL PACEMAKER. CALLED BOTH COMPANIES TO CONFIRM. metformin (Verified Adverse Reaction, Severe, DIARRHEA, 02/26/18) morphine (Verified Adverse Reaction, Severe, Dizziness, 02/26/18) oxycodone (Verified Adverse Reaction, Severe, Nausea/Vomiting, 02/26/18) prochlorperazine (Verified Adverse Reaction, Severe, ANXIETY, 02/26/18) ANXIETY Family History Mother-unknown medical history Father-heart disease, DM Sister-CAD Social History Lives with her roommates Receives disability, unemployed Denies alcohol use Tobacco: quit in 2003, smoked about 1/2 PPD x 14 years prior to quitting (Allan Lindsey MD R2) Physical Exam Vital Signs Vital Signs Date Time Temp Pulse Resp B/P (MAP) Pulse Ox O2 Delivery O2 Flow Rate FiO2 03/02/18 19:00 98.5 67 20 215/100 (138) 100 Room Air 03/02/18 14:39 99.2 75 18 128/70 (89) 95 Room Air 03/02/18 14:39 78 18 94 Room Air 03/02/18 14:38 78 18 97 Room Air 03/02/18 14:33 99.2 78 18 125/70 (88) 98 Physical Exam GENERAL: Thin, chronically ill appearing female who appears older than stated age lying in bed in NAD SKIN: No rashes, ecchymoses or lesions. Cool and dry. HEAD: NC/AT EYES: PERRL. EOMI. No conjunctival injection or drainage. ENT: MMM, OP without erythema, tonsillar swelling, or exudate. NECK: Supple, non-tender CARDIOVASCULAR: NRRR. Normal S1/S2. No MRG RESPIRATORY: CTAB. No crackles or wheezes. GASTROINTESTINAL: Abdomen soft, non-distended, mildly tender to palpation suprapubically. No hepato-splenomegaly or palpable masses. MUSCULOSKELETAL: Extremities without clubbing, cyanosis, or edema. NEUROLOGICAL: Awake and alert. Cranial nerves II through XII grossly intact. Moves all extremities without difficulty. BLE with 4/5 strength. BUE 5/5 strength. Normal speech. Laboratory Laboratory Tests Test 03/02/18 15:22 03/02/18 16:17 03/02/18 17:47 White Blood Count 4.6 Red Blood Count 4.05 Hemoglobin 11.1 Hematocrit 33.4 Mean Corpuscular Volume 82.5 Mean Corpuscular Hemoglobin 27.3 Mean Corpuscular Hemoglobin Concent 33.1 Red Cell Distribution Width 14.7 Platelet Count 273 Mean Platelet Volume 7.6 Neutrophils (%) (Auto) 64.8 Lymphocytes (%) (Auto) 22.7 Monocytes (%) (Auto) 10.0 Eosinophils (%) (Auto) 1.4 Basophils (%) (Auto) 1.1 Neutrophils # (Auto) 3.0 Lymphocytes # (Auto) 1.0 Monocytes # (Auto) 0.5 Eosinophils # (Auto) 0.1 Basophils # (Auto) 0.0 CBC Comment DIFF FINAL Differential Comment Prothrombin Time 10.6 Prothromb Time International Ratio 1.0 Activated Partial Thromboplast Time 24.0 B-Type Natriuretic Peptide 17 Blood Urea Nitrogen 21 Creatinine 0.97 Random Glucose 116 Total Protein 7.9 Albumin 3.5 Calcium Level 9.7 Magnesium Level 1.9 Alkaline Phosphatase 104 Aspartate Amino Transf (AST/SGOT) 9 Alanine Aminotransferase (ALT/SGPT) 16 Total Bilirubin 0.4 Sodium Level 138 Potassium Level 4.1 Chloride Level 102 Carbon Dioxide Level 27.1 Anion Gap 9 Estimat Glomerular Filtration Rate 61 Total Creatine Kinase 27 Troponin I LESS THAN 0.02 Urine Color LIGHT-YELLOW Urine Turbidity HAZY Urine pH 5.5 Urine Specific [place] 1.012 Urine Protein TRACE Urine Glucose (UA) NEG Urine Ketones NEG Urine Occult Blood TRACE Urine Nitrite POS Urine Bilirubin NEG Urine Urobilinogen LESS THAN 2.0 Urine Leukocyte Esterase MOD Urine RBC 1 Urine WBC 34 Urine Squamous Epithelial Cells 5 Urine Transitional Epithelial Cells 1 Urine Amorphous Sediment RARE Urine Bacteria MANY Urine Hyaline Casts 3 Microscopic Urinalysis Comment CULTURE INDICATED Date/Time Source Procedure Growth Status 03/02/18 17:47 Urine Random Urine Urine Culture Pending Received (Allan Lindsey MD R2) Result Diagram: 03/02/18 1522 03/02/18 1617 Imaging Last Impressions Chest X-Ray 03/02/18 1417 Signed Impressions: Service Date/Time: Friday, March 02, 2018 15:21 - CONCLUSION: Normal examination. Piotr Steward MD Carotid Artery Ultrasound 03/02/18 0000 Signed Impressions: Service Date/Time: Friday, March 02, 2018 19:22 - CONCLUSION: Within normal limits. No significant plaque or narrowing. Rc Oreilly MD (Allan Lindsey MD R2) Capmurali VTE Risk Assessment Caprinkwame VTE Risk Assessment: Mod/High Risk (score >= 2) (Allan Lindsey MD R2) Assessment and Plan Assessment and Plan 52 yo female with complicated medical history including oropharyngeal cancer, orthostasis, diabetes with neuropathy and gastroparesis presenting with: (Allan Lindsey MD R2) Problem List: (1) Syncope ICD Codes: R55 - Syncope and collapse Status: Acute Plan: Recurrent problem, most likely secondary to orthostatic hypotension. Carotid U/S without stenosis -No Echo for last year, will consider checking though likelihood of finding structural heart disease low -Telemetry prior hospitalization for same issue showed no abnormalities, will defer for now -Check orthostatics now and Q8H -See below for orthostasis -Fluids as below (2) UTI (urinary tract infection) ICD Codes: N39.0 - Urinary tract infection, site not specified Status: Acute Plan: Mild symptoms, no evidence of sepsis UA positive for nitrite -Rocephin 1 gm daily -F/u urine Cx (3) Orthostatic hypotension ICD Codes: I95.1 - Orthostatic hypotension Status: Chronic Plan: Chronic problem, BP now quite elevated to low 200s -hold midodrine -Recheck BP -If still elevated, treat with low dose hydralazine -Patient agreeable to trial of fludrocortisone, will f/u BPs in the AM and try if appropriate (4) Gastroparesis ICD Codes: K31.84 - Gastroparesis Plan: Assoc with DM, stable -Continue Erythromycin 200 mg TIDAC (5) DM (diabetes mellitus), type 2, uncontrolled w/neurologic complication ICD Codes: E11.49 - Type 2 diabetes mellitus with neurological manifestations, uncontrolled; E11.65 - Type 2 diabetes mellitus with hyperglycemia Status: Chronic Plan: DM type 2, on levemir 5 units BID at home -Hold levemir for now -Low dose SSI -Check sugars ACHS (6) FEN Status: Acute Plan: Fluids: NS @100 cc/hr Elecs; monitor and replete PRN Nutrition: diet diabetic with glucerna DVT: Lovenox Code status: Full code (Allan Lindsey MD R2) Problem Qualifiers (1) Syncope: Qualified Codes: R55 - Syncope and collapse (2) UTI (urinary tract infection): Qualified Codes: N39.0 - Urinary tract infection, site not specified Allan Lindsey MD R2 Mar 02, 2018 19:25 Keyana Holloway MD Mar 03, 2018 21:47
--- NOTE | 2018-03-02 19:57 | RADRPT ---
EXAM DATE/TIME: 03/02/2018 19:22 [facility] COMPARISON: No previous studies available for comparison. INDICATIONS : Syncope. MEDICAL HISTORY : Hypertension. Hypercholesterolemia. Hepatitis C. UTI. SURGICAL HISTORY : Pacemaker. Appendectomy. section. Cholecystectomy. Mastectomy. ENCOUNTER: Initial ACUITY: 1 day PAIN SCORE: 0/10 LOCATION: Bilateral neck PEAK SYSTOLIC VELOCITIES (cm/sec): ICA/CCA RATIO: Right: 2.46 Left: 1.82 ICA: Right: 169 Left: 116 CCA: Right: 69 Left: 64 ECA: Right: 237 Left: 113 VERTEBRAL: Right: 17 antegrade Left: 38 antegrade Elevated flow velocities and ICA/CCA ratios have been found to correlate with increased degrees of vessel stenosis, calculated as percentage of diameter relative to a normal segment of distal ICA/CCA FINDINGS: RIGHT CAROTID: No significant plaque or stenosis is visualized. The waveforms are within normal limits. LEFT CAROTID: No significant plaque or stenosis is visualized. The waveforms are within normal limits. VERTEBRAL ARTERIES: Antegrade flow is seen in both vertebral arteries. MISCELLANEOUS: None. CONCLUSION: Within normal limits. No significant plaque or narrowing. Rc Oreilly MD on March 02, 2018 at 19:51 Board Certified Radiologist. This report was verified electronically.
[2018-03-02] MEDS: SODIUM CHLOR 0.9% 1000 ML INJ 1,000 ML IV SCH (20:05)
[2018-03-02 20:32] LABS: TROPONIN I LESS THAN 0.02 NG/ML (0.02-0.05)
[2018-03-02] MEDS ORDERED: SODIUM CHLORIDE 0.9% FLUSH 10 ML FLUSH IV FLUSH SCH (21:00)
[2018-03-02] MEDS: SODIUM CHLORIDE 0.9% FLUSH 10 ML FLUSH IV FLUSH SCH (21:00)
[2018-03-02] MEDS: INSULIN ASPART SUPPLEMENTAL SCALE SQ SCH (21:00)
[2018-03-02] MEDS: DOCUSATE SODIUM 50 MG/SENNA 8.6 MG TAB PO SCH (21:00)
[2018-03-02 21:13] VITALS: BP_SYST 64; BP_SYST 88; BP_SYST 97; BP_DIAS 48; BP_DIAS 54; BP_DIAS 66; PULSE 83; RESP 18; TEMP 98.2; O2SAT 98
[2018-03-02] MEDS: MIDODRINE 5 MG TAB PO SCH (23:07)
[2018-03-02] MEDS: GABAPENTIN 400 MG CAP PO SCH (23:07)
[2018-03-02] MEDS: SODIUM CHLORIDE 1 GRAM TAB PO SCH (23:07)
[2018-03-02] MEDS: HEPARIN SODIUM - SQ 10,000 UNITS/ML VIAL SQ SCH (23:08)
--- NOTE | 2018-03-02 23:27 | EKG ---
Date Performed: 03/02/2018 Time Performed: 19:18:24 PTAGE: 52 years EKG: Sinus rhythm MARKED LEFT AXIS DEVIATION SEPTAL MYOCARDIAL INFARCTION ABNORMAL ECG PREVIOUS TRACING : 02/26/2018 15.59 Since the previous tracing, no significant change noted DOCTOR: Gilbert Galicia Interpretating Date/Time 03/02/2018 23:25:04
[2018-03-03] VITALS (13 sets, daily range): BP systolic 76–166; BP diastolic 46–91; PULSE 71–81; RESP 16–18; TEMP 97.6–98.5; O2SAT 96–100
[2018-03-03] MEDS: SODIUM CHLOR 0.9% 1000 ML INJ 1,000 ML IV SCH ×2 (04:05→15:38)
[2018-03-03] MEDS: MIDODRINE 5 MG TAB PO SCH ×3 (05:56→21:29)
[2018-03-03] MEDS ORDERED: MIDODRINE 5 MG TAB PO SCH (07:00)
[2018-03-03] MEDS: INSULIN ASPART SUPPLEMENTAL SCALE SQ SCH ×4 (08:00→21:00)
[2018-03-03 08:38] LABS: AUTOMATED NEUTROPHIL # 2.5 TH/MM3 (1.8-7.7); BASOPHIL # 0.1 TH/MM3 (0-0.2); BASOPHIL % 1.2 % (0.0-2.0); EOSINOPHIL # 0.1 TH/MM3 (0-0.4); EOSINOPHIL % 2.2 % (0.0-4.0); HEMATOCRIT 32.7 % (35.0-46.0); HEMOGLOBIN 11.1 GM/DL (11.6-15.3); LYMPH % 29.8 % (9.0-44.0); LYMPHOCYTE # 1.3 TH/MM3 (1.0-4.8); MEAN CELL VOLUME 82.4 FL (80.0-100.0); MEAN CORPUSCULAR HEMOGLOBIN 27.9 PG (27.0-34.0); MEAN CORPUSCULAR HGB CONC 33.9 % (32.0-36.0); MEAN PLATELET VOLUME 8.1 FL (7.0-11.0); MONO % 8.4 % (0.0-8.0); MONOCYTE # 0.4 TH/MM3 (0-0.9); NEUT % 58.4 % (16.0-70.0); PLATELET COUNT 254 TH/MM3 (150-450); RED BLOOD COUNT 3.98 MIL/MM3 (4.00-5.30); RED CELL DISTRIBUTION WIDTH 14.5 % (11.6-17.2); WHITE BLOOD COUNT 4.2 TH/MM3 (4.0-11.0)
[2018-03-03] MEDS: ERYTHROMYCIN ETHYLSUCCINATE 200 MG/5 ML SUSP 100 ML BOTTLE PO SCH ×3 (08:40→17:45)
[2018-03-03] MEDS: SODIUM CHLORIDE 0.9% FLUSH 10 ML FLUSH IV FLUSH SCH ×2 (08:40→21:00)
[2018-03-03] MEDS: GABAPENTIN 400 MG CAP PO SCH ×3 (08:41→17:44)
[2018-03-03] MEDS: SODIUM CHLORIDE 1 GRAM TAB PO SCH (08:41)
[2018-03-03] MEDS: DOCUSATE SODIUM 50 MG/SENNA 8.6 MG TAB PO SCH ×2 (08:41→21:00)
[2018-03-03] MEDS: HEPARIN SODIUM - SQ 10,000 UNITS/ML VIAL SQ SCH ×2 (08:41→21:28)
[2018-03-03 08:57] LABS: ALBUMIN 3.5 GM/DL (3.4-5.0); ALT (GPT) 15 U/L (10-53); AST (GOT) 13 U/L (15-37); BICARBONATE 28.6 MEQ/L (21.0-32.0); BLOOD UREA NITROGEN 17 MG/DL (7-18); CALCIUM 9.5 MG/DL (8.5-10.1); CHLORIDE 103 MEQ/L (98-107); GLOMERULAR FILTRATION RATE 76 ML/MIN (>89); GLUCOSE,RANDOM 120 MG/DL (74-106); MAGNESIUM 1.7 MG/DL (1.5-2.5); PHOSPHORUS 2.4 MG/DL (2.5-4.9); SODIUM (NA) 140 MEQ/L (136-145)
[2018-03-03 08:59] LABS: ALKALINE PHOSPHATASE 102 U/L (45-117); TOTAL BILIRUBIN ADULT 0.3 MG/DL (0.2-1.0); TOTAL PROTEIN 7.8 GM/DL (6.4-8.2)
[2018-03-03] MEDS ORDERED: GABAPENTIN 400 MG CAP PO SCH (09:00)
[2018-03-03] MEDS: FLUDROCORTISONE ACETATE 0.1 MG TAB PO SCH (12:38)
--- NOTE | 2018-03-03 14:50 | HHI.FPPN ---
Subjective Subjective Patient seen and examined with the resident team this am. Case reviewed and discussed Please refer to resident H&P for furhter details regarding HPI, ROS, PMH, Surghx FH and SocHx In summary, patient is a 52yoF with a PNH significant for cirrhosis, OP CA, orthostatic hypotension, now being readmitted for a syncopal episode. Patient was establishing at her new doctors office and went to stand up to be weighed on the scale when she passed out. She came to the ED for evaluation and was readmitted. Patient had been recommended to be treated with Fludrocortisone at her discharge last hospital stay, but had refused. She is also found to have a UTI this admission and has a history of MDRO in the urine. [facility] Objective Objective Last Impressions Chest X-Ray 03/02/18 1417 Signed Impressions: Service Date/Time: Friday, March 02, 2018 15:21 - CONCLUSION: Normal examination. Piotr Steward MD Carotid Artery Ultrasound 03/02/18 0000 Signed Impressions: Service Date/Time: Friday, March 02, 2018 19:22 - CONCLUSION: Within normal limits. No significant plaque or narrowing. Rc Oreilly MD Laboratory Tests - Abnormals Test 03/02/18 15:22 03/02/18 16:17 03/02/18 17:47 03/02/18 19:12 Hemoglobin 11.1 GM/DL Hematocrit 33.4 % Monocytes (%) (Auto) 10.0 % Activated Partial Thromboplast Time 24.0 SEC Blood Urea Nitrogen 21 MG/DL Random Glucose 116 MG/DL Aspartate Amino Transf (AST/SGOT) 9 U/L Estimat Glomerular Filtration Rate 61 ML/MIN Troponin I LESS THAN 0.02 NG/ML Urine Turbidity HAZY Urine Occult Blood TRACE Urine Nitrite POS Urine Leukocyte Esterase MOD Urine WBC 34 /hpf Urine Bacteria MANY /hpf Test 03/02/18 20:18 03/03/18 08:00 Troponin I LESS THAN 0.02 NG/ML Red Blood Count 3.98 MIL/MM3 Hemoglobin 11.1 GM/DL Hematocrit 32.7 % Monocytes (%) (Auto) 8.4 % Random Glucose 120 MG/DL Phosphorus Level 2.4 MG/DL Aspartate Amino Transf (AST/SGOT) 13 U/L Estimat Glomerular Filtration Rate 76 ML/MIN Vital Signs 4/03/02/18 03/02/18 03/03/18 19:00 20:27 21:13 03:01 Temp 98.5 98.2 Pulse 67 83 71 Resp 20 18 B/P (MAP) 215/100 (138) 97/66 (76) 88/54 (65) 64/48 (53) Pulse Ox 100 98 O2 Delivery Room Air 03/03/18 03/03/18 03/03/18 03/03/18 04:27 05:44 06:14 10:48 Temp 98.0 97.6 Pulse 71 72 80 Resp 18 16 B/P (MAP) 166/70 (102) 112/63 (79) 141/85 (103) 76/51 (59) 121/70 (87) Pulse Ox 99 96 99 03/03/18 14:06 Temp 97.7 Pulse 80 Resp 18 B/P (MAP) 138/91 (107) 91/61 (71) 129/72 (91) Pulse Ox 99 Physical exam GENERAL: thin female, malnourished appearing, sitting up in bed. SKIN: Warm and dry. No rashes, lesions HEAD: Normocephalic. AT EYES: No scleral icterus. No injection or drainage. ENT: Edentulous. MMM NECK: Supple, trachea midline. No JVD or lymphadenopathy. CARDIOVASCULAR: Regular rate and rhythm without murmurs, gallops, or rubs. PM over anterior chest RESPIRATORY: Breath sounds equal and clear bilaterally. No accessory muscle use. GASTROINTESTINAL: Abdomen soft, mildly tender over suprapubic region with deep palpation, nondistended. No rebound MUSCULOSKELETAL: No cyanosis, or edema. No calf tenderness BACK: Nontender without obvious deformity. No CVA tenderness. Assessment Assessment Syncope Severe orthostatic Hypotension UTI with hx MDRO Dehydration Intractable emesis Acute renal insufficiency Diabetes mellitus type 2 Hepatitis C Oropharyngeal cancer-cancer free for about a year History of CVA Dysautonomia with Orthostatic hypotension Gastroparesis Pacemaker Asthma Peripheral neuropathy PLAN PLAN PT evaluation Empiric antibiotic therapy Urine culture Carotid ultrasound 2D echo IVF resuscitation Fludrocortisone EES for gastroparesis (previously not responsive to reglan from [facility] in 2016) Resume home meds as appropriate Monitor electrolytes, replete as needed Glucerna Consider nutrition consult CM consult Orthostatic VS q4h Patient seen and examined. Case reviewed and discussed Agree with plan of care as discussed with me and documented in the resident note. Keyana Holloway MD Mar 03, 2018 14:50
[2018-03-03] MEDS ORDERED: cefTRIAXone INJ 1,000 MG in SODIUM CHLORIDE 0.9% INJ 100 ML IV SCH (18:00)
--- NOTE | 2018-03-03 18:56 | ECHRPT ---
Indication: CVA/TIA CONCLUSIONS Normal left ventricular size. Wall thickness is normal. The left ventricular systolic function is normal with an estimated ejection fraction in the range of 55-60%. A pacemaker wire is noted. The right ventricle is mildly dilated. The left atrial size is mildly dilated. There is a pacemaker wire present in the right atrial cavity. Trace mitral valve regurgitation. There is trace tricuspid valve regurgitation. BP: 112 / 63 HR: 72 Rhythm: Sinus MEASUREMENTS (Male / Female) Normal Values Technical Quality:Technically difficult study 2D ECHO LVOT Diameter 2.1 cm Aortic Root Diameter 2.4 cm DOPPLER AV Peak Velocity 92.4 cm/s AV Peak Gradient 3.4 mmHg AV Mean Gradient 2.0 mmHg AV Velocity Time Integral 20.4 cm LVOT Peak Velocity 60.9 cm/s LVOT Peak Gradient 1.5 mmHg LVOT Velocity Time Integral 16.7 cm AV Area Cont Eq vti 2.8 cm AV Area Cont Eq pk 2.3 cm Mitral E Point Velocity 55.3 cm/s Mitral A Point Velocity 76.5 cm/s Mitral E to A Ratio 0.7 LV E' Lateral Velocity 5.9 cm/s Mitral E to LV E' Lateral Ratio 9.3 LV E' Septal Velocity 5.1 cm/s Mitral E to LV E' Septal Ratio 10.9 PV Peak Velocity 106.0 cm/s PV Peak Gradient 4.5 mmHg FINDINGS LEFT VENTRICLE Normal left ventricular size. Wall thickness is normal. The left ventricular systolic function is normal with an estimated ejection fraction in the range of 55-60%. RIGHT VENTRICLE A pacemaker wire is noted. The right ventricle is mildly dilated. LEFT ATRIUM The left atrial size is mildly dilated. RIGHT ATRIUM There is a pacemaker wire present in the right atrial cavity. ATRIAL SEPTUM The interatrial septum not well visualized. AORTA The aortic root and proximal ascending aorta are not well visualized. MITRAL VALVE Trace mitral valve regurgitation. AORTIC VALVE Trileaflet aortic valve. No aortic valve stenosis or regurgitation. TRICUSPID VALVE There is trace tricuspid valve regurgitation. PULMONARY VALVE No pulmonary valve regurgitation or stenosis. VESSELS The inferior vena cava was not well visualized. PERICARDIUM No pericardial effusion. Chuck Grajeda MD, FACC, FSCAI (Electronically Signed) Final Date:03 March 2018 18:55
[2018-03-04] VITALS (18 sets, daily range): BP systolic 73–208; BP diastolic 40–105; PULSE 71–86; RESP 16–18; TEMP 97.7–98.8; O2SAT 96–100
[2018-03-04] MEDS: SODIUM CHLOR 0.9% 1000 ML INJ 1,000 ML IV SCH ×3 (01:51→20:36)
[2018-03-04] MEDS: MIDODRINE 5 MG TAB PO SCH ×3 (06:08→23:09)
[2018-03-04] MEDS: INSULIN ASPART SUPPLEMENTAL SCALE SQ SCH ×4 (08:00→20:34)
[2018-03-04] MEDS: SODIUM CHLORIDE 0.9% FLUSH 10 ML FLUSH IV FLUSH SCH ×2 (08:01→20:36)
[2018-03-04] MEDS: GABAPENTIN 400 MG CAP PO SCH ×3 (08:01→17:09)
[2018-03-04] MEDS: FLUDROCORTISONE ACETATE 0.1 MG TAB PO SCH (08:01)
[2018-03-04] MEDS: DOCUSATE SODIUM 50 MG/SENNA 8.6 MG TAB PO SCH ×2 (08:01→20:36)
[2018-03-04] MEDS: SODIUM CHLORIDE 1 GRAM TAB PO SCH (08:01)
[2018-03-04] MEDS: ERYTHROMYCIN ETHYLSUCCINATE 200 MG/5 ML SUSP 100 ML BOTTLE PO SCH ×3 (08:02→17:00)
[2018-03-04] MEDS: HEPARIN SODIUM - SQ 10,000 UNITS/ML VIAL SQ SCH ×2 (08:03→20:36)
[2018-03-04] MEDS ORDERED: NITROFURANTOIN MONOHYD MACROCR 100 MG CAP PO SCH (09:45)
--- NOTE | 2018-03-04 12:29 | PD.ID.CON ---
History of Present Illness Service ID Consult Requested By Dr Lindsey Reason for Consult recurrent ESBL UTI Primary Care Physician Unknown Diagnoses: History of Present Illness 52 yo female with multiple medical problems presented with 1 day of malaise, nausea, vomiting She has a h/o recurrent UTIs and she noted foul smelling urine UA had 34 WBC Urine clx with ESBL+ E.coli Low grade fever of 99.2, no leukocytosis Review of Systems Except as stated in HPI: all other systems reviewed are Neg Past Family Social History Allergies: Coded Allergies: tramadol (Verified Allergy, Intermediate, Rash, 02/26/18) MRI PRECAUTION (Verified Adverse Reaction, Severe, PACEMAKER IS NOT A BIOTRONIK OR MEDTRONIC 06/15/16 KMD, 02/26/18) PACEMAKER IS NOT A BIOTRONIK OR MEDTRONIC CONDITIONAL PACEMAKER. CALLED BOTH COMPANIES TO CONFIRM. metformin (Verified Adverse Reaction, Severe, DIARRHEA, 02/26/18) morphine (Verified Adverse Reaction, Severe, Dizziness, 02/26/18) oxycodone (Verified Adverse Reaction, Severe, Nausea/Vomiting, 02/26/18) prochlorperazine (Verified Adverse Reaction, Severe, ANXIETY, 02/26/18) ANXIETY Past Medical History Diabetes oropharyngeal ca sp chemo, in remission PVD sp periferal stents placement Past Surgical History L great toe amputation R 5 th ray amputation PORT placemetn R ch3est PPM placement L chest Active Ordered Medications Medications where reviewed in EMR Antibiotics Include: CFTX Family History reviewed NC too current ID issue Social History remote Tobacco. No ETOH. No Illicit Drugs. Physical Exam Vital Signs Vital Signs Date Time Temp Pulse Resp B/P (MAP) Pulse Ox O2 Delivery O2 Flow Rate FiO2 03/04/18 08:25 97.8 85 18 151/75 (100) 100 89/55 (66) 164/79 (107) 03/04/18 07:24 86 03/04/18 06:07 104/56 (72) 03/04/18 04:53 98.2 80 16 164/86 (112) 100 03/04/18 00:36 98.3 71 16 158/60 (92) 100 03/03/18 23:00 74 03/03/18 21:42 100 03/03/18 20:44 98.5 81 16 101/57 (72) 100 97/58 (71) 83/46 (58) 03/03/18 16:52 98.3 76 16 107/58 (74) 100 03/03/18 15:00 79 03/03/18 14:06 97.7 80 18 138/91 (107) 99 91/61 (71) 129/72 (91) 03/03/18 12:25 80 Physical Exam CONSTITUTIONAL/GENERAL: This is an adequately nourished patient, in no apparent distress. TUBES/LINES/DRAINS: PORT in place R chest - OK SKIN: No jaundice, rashes, or lesions. . Skin temperature appropriate. Not diaphoretic. HEAD: Atraumatic. Normocephalic. EYES: Pupils equal and round and reactive. Extraocular motions intact. No scleral icterus. No injection or drainage. Fundi not examined. ENT: Hearing grossly normal. Nose without bleeding or purulent drainage. Throat without visible erythema, exudates, masses, or lesions.edentulous NECK: Trachea midline. Supple, nontender. No palpable thyroid enlargement or nodularity. CARDIOVASCULAR: Regular rate and rhythm without murmurs, gallops, or rubs. No JVD. Peripheral pulses symmetric. PPM in place L chest - site OK RESPIRATORY/CHEST: Symmetric, unlabored respirations. Clear to auscultation. Breath sounds equal bilaterally. No wheezes, rales, or rhonchi. GASTROINTESTINAL: Abdomen soft, non-tender, nondistended. No hepato-splenomegaly , or palpable masses. No guarding. Bowel sounds present. GENITOURINARY: Without palpable bladder distension. No CVA tendernes b/l MUSCULOSKELETAL: Extremities without clubbing, cyanosis, or edema. No joint tenderness or effusion noted. No calf tenderness. No mottling or clubbing. LYMPHATICS: No palpable cervical or supraclavicular adenopathy. NEUROLOGICAL: Awake and alert. Motor and sensory grossly within normal limits. Follows commands. Clear speech . Moves all extremities. PSYCHIATRIC: No obvious anxiety/depression. no apparent hallucinations or other psychotic thought process. Laboratory Date/Time Source Procedure Growth Status 03/02/18 19:13 Blood Peripheral Aerobic Blood Culture - Preliminary NO GROWTH IN 2 DAYS Resulted 03/02/18 19:13 Blood Peripheral Anaerobic Blood Culture - Preliminary NO GROWTH IN 2 DAYS Resulted 03/02/18 17:47 Urine Random Urine Urine Culture - Final Escherichia Coli Esbl Positive Complete Result Diagram: 03/03/18 0800 03/03/18 0800 Imaging Last Impressions Chest X-Ray 03/02/18 1417 Signed Impressions: Service Date/Time: Friday, March 02, 2018 15:21 - CONCLUSION: Normal examination. Piotr Steward MD Carotid Artery Ultrasound 03/02/18 0000 Signed Impressions: Service Date/Time: Friday, March 02, 2018 19:22 - CONCLUSION: Within normal limits. No significant plaque or narrowing. Rc Oreilly MD Assessment and Plan Assessment and Plan ESBL + Ecoli UTI Recurrent UTIs DM Multiple med problenms Rx with Ertapenm IV no oral options: isolate is R to cipro and bactrim beta -lactams not an option even with apparent sensitivity in vitro Discussed Condition With pt Sally Grajeda MD Mar 04, 2018 12:29
[2018-03-04] MEDS ORDERED: PHARMACY INFORMATION XX PRN (12:30)
[2018-03-04] MEDS ORDERED: ASP: Documented ESBL, MDR A baumannii or P. aeruginosa PRN (12:30)
--- NOTE | 2018-03-04 12:31 | HHI.FF ---
Infusion Therapy Location of Infusion Therapy: Home [facility] Care IV Infusion Order Patient Information Patient Weight 65 kg Diagnosis: Coded Allergies: tramadol (Verified Allergy, Intermediate, Rash, 02/26/18) MRI PRECAUTION (Verified Adverse Reaction, Severe, PACEMAKER IS NOT A BIOTRONIK OR MEDTRONIC 06/15/16 KMD, 02/26/18) PACEMAKER IS NOT A BIOTRONIK OR MEDTRONIC CONDITIONAL PACEMAKER. CALLED BOTH COMPANIES TO CONFIRM. metformin (Verified Adverse Reaction, Severe, DIARRHEA, 02/26/18) morphine (Verified Adverse Reaction, Severe, Dizziness, 02/26/18) oxycodone (Verified Adverse Reaction, Severe, Nausea/Vomiting, 02/26/18) prochlorperazine (Verified Adverse Reaction, Severe, ANXIETY, 02/26/18) ANXIETY Administer Medication Ertapenem 1 gram IV q 24 hours Start Treatment: Mar 04, 2018 Stop Treatment: March 13, 2018 Additional Information Venous access: Implanted Port Additional Instructions [x] Peripheral flush and dressing changes per protocol [x] Implanted port and central airline pilot: * Implanted port: 10 ml Normal Saline followed by 5 ml Heparin 100 units/ml Heparin flush after each use and monthly to maintain. [] May leave port accessed during therapy. [] May leave peripheral site accessed for duration of therapy. [x] If patient has SOB or respiratory distress, check oxygen saturation. If less than 90% or clinical signs of respiratory distress, administer oxygen at 2 L/min. via nasal cannula and notify physician. [x] Anaphylaxis/Reaction orders: * Stop infusion. * Keep IV line open with saline flush. * Notify physician. * Monitor vital signs every 15 minutes until symptoms resolve. * Check Oxygen saturation; Oxygen at 2 L/min. via nasal cannula if less than 90% or clinical signs of respiratory distress. * Administer diphenhydramine (Benadryl) 25 mg IV STAT, (unless patient has received as pre-med). May repeat once, if necessary. * Solu-Cortef 250 mg IVP over 30-60 seconds, use 100 mg vials for each dissolution. * Epinephrine (1mg/1 ml) 0.3 mg subcutaneously or IVP now with any signs of respiratory distress. * Check with physician for new additional pre-med orders if patient is re- challenged or re-treated. [x] May remove PICC line when treatment complete, after confirming with Physician. [x] If the patient is admitted to the hospital, the ED, or transferred via [facility] , complete transfer form including medication reconciliation order sheet. Laboratory Tests Weekly Labs: CBC w/diff, Creatinine Sally Grajeda MD Mar 04, 2018 12:31
[2018-03-04] MEDS ORDERED: EPIN1INJ21 IV PUSH (12:32)
[2018-03-04] MEDS ORDERED: SOLU250I IV PUSH (12:32)
[2018-03-04] MEDS ORDERED: EPIN1INJ21 SQ (12:32)
[2018-03-04] MEDS ORDERED: INVA1INJ IV (12:32)
--- NOTE | 2018-03-04 13:32 | HHI.FPPN ---
Subjective Remarks No acute events overnight. Feels somewhat lightheaded on standing. No CP/SOB. (Allan Lindsey MD R2) Objective Vitals Vital Signs Date Time Temp Pulse Resp B/P (MAP) Pulse Ox O2 Delivery O2 Flow Rate FiO2 03/04/18 12:50 81/50 (60) 126/64 (84) 155/73 (100) 03/04/18 12:08 97.7 85 18 174/93 (120) 100 03/04/18 08:25 97.8 85 18 151/75 (100) 100 89/55 (66) 164/79 (107) 03/04/18 07:24 86 03/04/18 06:07 104/56 (72) 03/04/18 04:53 98.2 80 16 164/86 (112) 100 03/04/18 00:36 98.3 71 16 158/60 (92) 100 03/03/18 23:00 74 03/03/18 21:42 100 03/03/18 20:44 98.5 81 16 101/57 (72) 100 97/58 (71) 83/46 (58) 03/03/18 16:52 98.3 76 16 107/58 (74) 100 03/03/18 15:00 79 03/03/18 14:06 97.7 80 18 138/91 (107) 99 91/61 (71) 129/72 (91) (Allan Lindsey MD R2) Result Diagram: 03/03/18 0800 03/03/18 0800 Objective Remarks GEN: Thin well nourished white female who appears older than stated age lying in bed, NAD SKin: Cool and dry CV: NRRR, normal S1/S2, no MRG Lungs: CTAB anteriorly, no crackles or wheezes MSK: No peripheral edema, compression hose in place Neuro: Awake and alert. Grossly non-focal. (Allan Lindsey MD R2) A/P Assessment and Plan 52 yo female with complicated medical history including oropharyngeal cancer, orthostasis, diabetes with neuropathy and gastroparesis presenting with: (Allan Lindsey MD R2) Attending Attestation Patient seen and examined. Case reviewed and discussed Agree with plan of care as discussed with me and documented in the resident note. (Keyana Holloway MD) Problem List: (1) Syncope ICD Codes: R55 - Syncope and collapse Status: Resolved Plan: Recurrent problem, most likely secondary to orthostatic hypotension. Carotid U/S without stenosis Echo with normal EF, trace TR -Telemetry prior hospitalization for same issue showed no abnormalities, will defer for now -F/u as outpatient for orthostasis treatment (2) UTI (urinary tract infection) ICD Codes: N39.0 - Urinary tract infection, site not specified Status: Acute Plan: UCx growing ESBL+ E coli (patient has h/o this in the past) Mild symptoms, no evidence of sepsis -ID consulted, appreciate recs -Ertapenem 1 gm IV daily, to complete 10 days on discharge (3) Orthostatic hypotension ICD Codes: I95.1 - Orthostatic hypotension Status: Chronic Plan: Symptoms stable -Continue midodrine 10 mg PO TID, fludrocortisone 0.1 mg PO daily -IVF -Compression stockings -Fall precautions -PT (4) Gastroparesis ICD Codes: K31.84 - Gastroparesis Status: Chronic Plan: Assoc with DM, stable -Continue Erythromycin 200 mg TIDAC (5) DM (diabetes mellitus), type 2, uncontrolled w/neurologic complication ICD Codes: E11.49 - Type 2 diabetes mellitus with neurological manifestations, uncontrolled; E11.65 - Type 2 diabetes mellitus with hyperglycemia Status: Chronic Plan: BSG 117-198 last 24 h DM type 2, on levemir 5 units BID at home -Resume levemir 5 units BID on discharge -F/u with new PCP (6) FEN Status: Acute Plan: Fluids: NS @100 cc/hr Elecs; monitor and replete PRN Nutrition: diet diabetic with glucerna DVT: Heparin 5000 units BID Code status: Full code Dispo: Home with home health for PT, IV medication administration (Allan Lindsey MD R2) Problem Qualifiers (1) Syncope: Qualified Codes: R55 - Syncope and collapse Allan Lindesy MD R2 Mar 04, 2018 13:32 Keyana Holloway MD March 10, 2018 10:09
[2018-03-04] MEDS ORDERED: FLUD.1 PO (13:35)
--- NOTE | 2018-03-04 13:38 | HHI.FF ---
Face to Face Verification Diagnosis: (1) ESBL (extended spectrum beta-lactamase) producing bacteria infection (2) UTI (urinary tract infection) (3) Syncope (4) Orthostatic hypotension (5) Gastroparesis (6) DM (diabetes mellitus), type 2, uncontrolled w/neurologic complication Physical Therapy Order: Evaluate and Treat Home Health Nursing Order: Medical education Signs/symptoms of disease process Diabetic education Medication education-adverse effect Nursing assessment with vital signs IV medication administration Engine Emission Technician Order: To Evaluate: Living conditions/environment, Support services Order: To Provide: Community services I have seen patient Jaqueline Arechiga on 03/04/18. My clinical findings support the need for the requested home health care services because: Ltd mobility - disease progression Deconditioned w/ increased weakness Med compliance is questionable Need for psychosocial assistance High risk of falls Infection w/ risk of complications I certify that my clinical findings support that this patient is homebound because: Unsteady gait/balance Need for psychosocial assistance Allan Lindsey MD R2 Mar 04, 2018 13:38
[2018-03-04] MEDS: ERTAPENEM INJ 1,000 MG in SODIUM CHLORIDE 0.9% INJ 100 ML IV SCH (14:32)
[2018-03-04] MEDS ORDERED: hydrALAZINE HCL 10 MG TAB PO ONE (19:00)
[2018-03-04] MEDS: INSULIN DETEMIR 100 UNITS/ML VIAL SQ SCH (20:34)
[2018-03-05 00:28] VITALS: BP 140/78; PULSE 77; RESP 20; TEMP 97.2; O2SAT 96
[2018-03-05 05:15] VITALS: BP 132/70; PULSE 80; RESP 18; TEMP 98.2; O2SAT 96
[2018-03-05] MEDS: SODIUM CHLOR 0.9% 1000 ML INJ 1,000 ML IV SCH (06:35)
[2018-03-05] MEDS ORDERED: MIDODRINE 5 MG TAB PO SCH (07:00)
--- NOTE | 2018-03-05 07:24 | HHI.FF ---
Face to Face Verification Diagnosis: (1) Orthostatic hypotension (2) ESBL (extended spectrum beta-lactamase) producing bacteria infection (3) UTI (urinary tract infection) (4) Syncope (5) DM (diabetes mellitus), type 2, uncontrolled w/neurologic complication Physical Therapy Order: Evaluate and Treat Home Health Nursing Order: Medical education Signs/symptoms of disease process Diabetic education Nursing assessment with vital signs IV medication administration I have seen patient Jaqueline Arechiga on 03/05/18. My clinical findings support the need for the requested home health care services because: Ltd mobility - disease progression Deconditioned w/ increased weakness Need for psychosocial assistance High risk of falls Injectable med education/admin I certify that my clinical findings support that this patient is homebound because: Unsteady gait/balance Need for psychosocial assistance Allan Lindsey MD R2 Mar 05, 2018 7:24 am
[2018-03-05] MEDS ORDERED: MIDO5TAB PO (07:25)
--- NOTE | 2018-03-05 08:27 | HHI.FPPN ---
Subjective Remarks Overnight had elevated BP, given hydralazine 5 mg x1. Then BP dropped low again and midodrine was restarted. This morning feels well. No lightheadedness on sitting. No CP/SOB. Objective Vitals Vital Signs Date Time Temp Pulse Resp B/P (MAP) Pulse Ox O2 Delivery O2 Flow Rate FiO2 03/05/18 05:15 98.2 80 18 132/70 (90) 96 03/05/18 00:28 97.2 77 20 140/78 (98) 96 03/04/18 22:34 73 16 73/40 (51) 98 03/04/18 22:28 76 16 142/75 (97) 97 03/04/18 22:25 73 16 129/70 (89) 99 03/04/18 20:19 83 172/78 (109) 03/04/18 20:19 84 102/65 (77) 03/04/18 20:12 97.9 82 18 187/87 (120) 100 03/04/18 17:38 194/104 (134) 03/04/18 17:37 98.6 79 18 208/105 (139) 100 03/04/18 16:06 98.8 79 16 198/86 (123) 98 03/04/18 15:10 81 03/04/18 12:50 81/50 (60) 126/64 (84) 155/73 (100) 03/04/18 12:08 97.7 85 18 174/93 (120) 100 03/04/18 12:04 85 I/O 03/04/18 03/04/18 03/04/18 03/05/18 03/05/18 03/05/18 07:00 15:00 23:00 07:00 15:00 23:00 # Voids 1 1 Result Diagram: 03/03/18 0800 03/03/18 0800 Imaging Last Impressions Chest X-Ray 03/02/18 1417 Signed Impressions: Service Date/Time: Friday, March 02, 2018 15:21 - CONCLUSION: Normal examination. Piotr Steward MD Carotid Artery Ultrasound 03/02/18 0000 Signed Impressions: Service Date/Time: Friday, March 02, 2018 19:22 - CONCLUSION: Within normal limits. No significant plaque or narrowing. Rc Oreilly MD Objective Remarks GEN: Thin well nourished white female who appears older than stated age sitting up in bed, NAD SKin: Cool and dry CV: NRRR, normal S1/S2, no MRG Lungs: CTAB anteriorly, no crackles or wheezes Abd: Soft, NDNT MSK: No peripheral edema, compression hose in place Neuro: Awake and alert. Medications and IVs Current Medications Medications (Trade) Dose Ordered Sig/Mattie Route Start Time Stop Time Status Last Admin (D50w (Vial) Inj) 50 ml UNSCH PRN IV PUSH 03/02/18 19:00 (Glucagon Inj) 1 mg UNSCH PRN OTHER 03/02/18 19:00 (NovoLOG SUPPLEMENTAL SCALE) 1 ACHS SLIDING SCALE SQ 03/02/18 21:00 03/05/18 08:49 Sodium Chloride 1,000 ml @ 100 mls/hr Q10H IV 03/02/18 18:50 03/05/18 06:35 (NS Flush) 2 ml UNSCH PRN IV FLUSH 03/02/18 19:00 (NS Flush) 2 ml BID IV FLUSH 03/02/18 21:00 03/03/18 08:40 (Zofran Inj) 4 mg Q6H PRN IVP 03/02/18 19:00 (Reglan Inj) 5 mg Q6H PRN IV PUSH 03/02/18 19:00 (Heparin Inj) 5,000 units Q12H SQ 03/02/18 21:00 03/05/18 08:48 (Dilaudid Pf Inj) 0.5 mg Q3H PRN IV PUSH 03/02/18 19:00 (Dilaudid Pf Inj) 1 mg Q3H PRN IV PUSH 03/02/18 19:00 (Narcan Inj) 0.4 mg UNSCH PRN IV PUSH 03/02/18 19:00 (Tamiko-Colace) 1 tab BID PO 03/02/18 21:00 (Milk Of Magnesia Liq) 30 ml Q12H PRN PO 03/02/18 19:00 (Senokot) 17.2 mg Q12H PRN PO 03/02/18 19:00 (Dulcolax Supp) 10 mg DAILY PRN RECTAL 03/02/18 19:00 (Lactulose Liq) 30 ml DAILY PRN PO 03/02/18 19:00 (Ees 200 Mg/5 ml Liq) 200 mg TIDAC PO 03/03/18 08:00 03/05/18 11:41 (Sodium Chloride) 1 gm DAILY PO 03/02/18 20:00 03/05/18 08:47 (Tylenol) 650 mg Q4H PRN PO 03/02/18 20:15 03/04/18 18:47 (Neurontin) 400 mg TID PO 03/02/18 22:30 03/05/18 11:41 (Florinef) 0.1 mg DAILY PO 03/03/18 11:00 03/04/18 08:01 Ertapenem 1000 mg/ Sodium Chloride 100 ml @ 200 mls/hr Q24H IV 03/04/18 14:00 03/05/18 11:41 (Levemir Inj) 5 units Q12HR SQ 03/04/18 21:00 03/05/18 08:50 (Proamatine) 5 mg TID@0700,1500,1700 PO 03/05/18 07:00 03/05/18 06:38 A/P Assessment and Plan 52 yo female with complicated medical history including oropharyngeal cancer, orthostasis, diabetes with neuropathy and gastroparesis presenting with: Problem List: (1) UTI (urinary tract infection) ICD Codes: N39.0 - Urinary tract infection, site not specified Status: Acute Plan: UCx growing ESBL+ E coli (patient has h/o this in the past) Mild symptoms, no evidence of sepsis -ID consulted, appreciate recs -Ertapenem 1 gm IV daily, to complete 10 days; outpatient infusion arranged (2) Orthostatic hypotension ICD Codes: I95.1 - Orthostatic hypotension Status: Chronic Plan: Symptoms stable -Continue midodrine 5 mg PO TID, fludrocortisone 0.1 mg PO daily -Continue 1 gm NaCl tab daily -Compression stockings -HHPT (3) Gastroparesis ICD Codes: K31.84 - Gastroparesis Plan: Assoc with DM, stable -Continue Erythromycin 200 mg TIDAC (4) DM (diabetes mellitus), type 2, uncontrolled w/neurologic complication ICD Codes: E11.49 - Type 2 diabetes mellitus with neurological manifestations, uncontrolled; E11.65 - Type 2 diabetes mellitus with hyperglycemia Status: Chronic Plan: BSG 117-198 last 24 h DM type 2, on levemir 5 units BID at home -Resume levemir 5 units BID on discharge -F/u with new PCP (5) FEN Status: Acute Plan: Fluids: NS @100 cc/hr Elecs; monitor and replete PRN Nutrition: diet diabetic with glucerna DVT: Heparin 5000 units BID Code status: Full code Dispo: Home with home health for PT, IV medication administration Allan Lindsey MD R2 Mar 05, 2018 08:27
[2018-03-05] MEDS: SODIUM CHLORIDE 1 GRAM TAB PO SCH (08:47)
[2018-03-05] MEDS: GABAPENTIN 400 MG CAP PO SCH ×2 (08:48→11:41)
[2018-03-05] MEDS: DOCUSATE SODIUM 50 MG/SENNA 8.6 MG TAB PO SCH (08:48)
[2018-03-05] MEDS: HEPARIN SODIUM - SQ 10,000 UNITS/ML VIAL SQ SCH (08:48)
[2018-03-05] MEDS: ERYTHROMYCIN ETHYLSUCCINATE 200 MG/5 ML SUSP 100 ML BOTTLE PO SCH ×2 (08:49→11:41)
[2018-03-05] MEDS: FLUDROCORTISONE ACETATE 0.1 MG TAB PO SCH (08:49)
[2018-03-05] MEDS: SODIUM CHLORIDE 0.9% FLUSH 10 ML FLUSH IV FLUSH SCH (08:49)
[2018-03-05] MEDS: INSULIN ASPART SUPPLEMENTAL SCALE SQ SCH ×2 (08:49→12:00)
[2018-03-05] MEDS: INSULIN DETEMIR 100 UNITS/ML VIAL SQ SCH (08:50)
[2018-03-05] MEDS ORDERED: SODI1TAB PO ×2 (09:06→09:08)
[2018-03-05 09:08] VITALS: BP 145/78; PULSE 83; RESP 16; TEMP 98.5; O2SAT 95
[2018-03-05] MEDS ORDERED: WALKER GLIDE WH1 MI1 (09:08)
[2018-03-05] MEDS ORDERED: MISCMIS81 (09:38)
[2018-03-05] MEDS: ERTAPENEM INJ 1,000 MG in SODIUM CHLORIDE 0.9% INJ 100 ML IV SCH (11:41)
[2018-03-05 12:32] VITALS: BP_SYST 127; BP_SYST 136; BP_SYST 93; BP_DIAS 51; BP_DIAS 69; BP_DIAS 75; PULSE 95; RESP 20; TEMP 98.3; O2SAT 100
--- NOTE | 2018-03-05 15:59 | HHI.DS ---
Discharge Summary Admission Date Mar 02, 2018 at 18:49 Discharge Date: Mar 05, 2018 Admitting Diagnosis syncope, uti (1) UTI (urinary tract infection) Diagnosis: Principal ICD Codes: N39.0 - Urinary tract infection, site not specified Status: Acute (2) Orthostatic hypotension Diagnosis: Principal ICD Codes: I95.1 - Orthostatic hypotension Status: Chronic (3) Gastroparesis Diagnosis: Secondary Plan: Assoc with DM, stable -Continue Erythromycin 200 mg TIDAC ICD Codes: K31.84 - Gastroparesis (4) DM (diabetes mellitus), type 2, uncontrolled w/neurologic complication Diagnosis: Secondary ICD Codes: E11.49 - Type 2 diabetes mellitus with neurological manifestations, uncontrolled; E11.65 - Type 2 diabetes mellitus with hyperglycemia Status: Chronic Consultants Infectious disease - Dr. Grajeda Brief History 52 yo female with complicated PMH including oropharyngeal cancer in remission, diabetes with gastroparesis and neuropathy, and orthostasis presenting after a syncopal episode occurring at her physician's office. She was getting up from her wheelchair to get her weight measured when she got lightheaded and passed out. She woke up quickly and vomited a couple times. She did not have any chest pain or shortness of breath. She was taken by [facility] to the hospital for additional eval. CBC/BMP: 03/03/18 0800 03/03/18 0800 Significant Findings Laboratory Tests Test 03/02/18 16:17 03/02/18 17:47 03/02/18 19:12 03/02/18 20:18 Blood Urea Nitrogen 21 MG/DL (7-18) Random Glucose 116 MG/DL (74-106) Aspartate Amino Transf (AST/SGOT) 9 U/L (15-37) Estimat Glomerular Filtration Rate 61 ML/MIN (>89) Troponin I LESS THAN 0.02 NG/ML LESS THAN 0.02 NG/ML Urine Turbidity HAZY (CLEAR) Urine Occult Blood TRACE (NEG) Urine Nitrite POS (NEG) Urine Leukocyte Esterase MOD (NEG) Urine WBC 34 /hpf (0-5) Urine Bacteria MANY /hpf (NONE) Test 03/03/18 08:00 Red Blood Count 3.98 MIL/MM3 (4.00-5.30) Hemoglobin 11.1 GM/DL (11.6-15.3) Hematocrit 32.7 % (35.0-46.0) Monocytes (%) (Auto) 8.4 % (0.0-8.0) Random Glucose 120 MG/DL (74-106) Phosphorus Level 2.4 MG/DL (2.5-4.9) Aspartate Amino Transf (AST/SGOT) 13 U/L (15-37) Estimat Glomerular Filtration Rate 76 ML/MIN (>89) Imaging Last Impressions Chest X-Ray 03/02/18 1417 Signed Impressions: Service Date/Time: Friday, March 02, 2018 15:21 - CONCLUSION: Normal examination. Piotr Steward MD Carotid Artery Ultrasound 03/02/18 0000 Signed Impressions: Service Date/Time: Friday, March 02, 2018 19:22 - CONCLUSION: Within normal limits. No significant plaque or narrowing. Rc Oreilly MD PE at Discharge GEN: Thin well nourished white female who appears older than stated age sitting up in bed, NAD SKin: Cool and dry CV: NRRR, normal S1/S2, no MRG Lungs: CTAB anteriorly, no crackles or wheezes Abd: Soft, NDNT MSK: No peripheral edema, compression hose in place Neuro: Awake and alert. Hospital Course Patient with h/o orthostasis, Dm with neuropathy and gastroparesis admitted for syncopal event at physician's office. Orthostatic VS significantly positive. Carotid US and Echocardiogram unremarkable except left atrial size mildly dilated. Patient improved with medications for orthostasis as noted below. During work-up it was discovered she had a recurrent UTI due to an ESBL E coli. ID consulted who recommended ertapenem. Patient to complete 10 days of this antibiotic on discharge. Pt Condition on Discharge: Stable Discharge Disposition: Disch w/ Home Health Serv Discharge Instructions DIET: Follow Instructions for: Diabetic Diet Activities you can perform: Regular-No Restrictions, See Additionl Instruction Other Activity Instructions: Change positions SLOWLY; allow at least a minute sitting when getting up, then stand up very slowly. Follow up Referrals: PCP Follow-up - 1 Week PCP Follow-up New Medications: Epinephrine Inj (Epinephrine Inj) 1 Mg/Ml (1 Ml) Inj 0.3 MG IV PUSH ONCE PRN for ALLERGIC REACTION, #1 VIAL Epinephrine Inj (Epinephrine Inj) 1 Mg/Ml (1 Ml) Inj 0.3 MG SQ ONCE PRN for ALLERGIC REACTION, #1 VIAL Give with any signs of respiratory distress. Ertapenem Inj (Invanz Inj) 1 Gm Addvial 1 GM IV Q24H for Infection for 10 Days, INJECTION 0 Refills ADMINISTER IN 100ML NS Hydrocortisone Inj (Solu-Cortef Inj) 250 Mg/2 Ml Inj 250 MG IV PUSH ONCE PRN for ALLERGIC REACTION, #1 VIAL 0 Refills Give over 30-60 seconds. Rollator Ultra-Light (Rollator Ultra-Light) 1 Mis Mis EA .XX DIRECTED, #1 Fludrocortisone (Fludrocortisone) 0.1 Mg Tab 0.1 MG PO DAILY, #30 TAB Midodrine (Midodrine) 5 Mg Tab 5 MG PO TID@0700,1500,1700, #90 TAB Sodium Chloride (Sodium Chloride) 1 Gram Tab 1 GM PO DAILY, #30 TAB Continued Medications: Erythromycin Ethylsuccinate Liq (E.E.S. Liq) 200 Mg/5 Ml Susp 200 MG PO TIDAC, #1 BOTTLE Gabapentin (Gabapentin) 400 Mg Cap 400 MG PO TID, #270 CAP 3 Refills Insulin Detemir Inj (Levemir Inj) 1,000 unit/ 10 ML Vial 5 UNITS SQ BID for Blood Sugar Management, VIAL 0 Refills Do not mix with any other Insulin. [place] Wheels/5 Adj ([place] Wheels/5 Adj) 1 Mis Mis EA .XX DIRECTED, #1 0 Refills (This prescription has been renewed) Discontinued Medications: Midodrine (Midodrine) 5 Mg Tab 10 MG PO TID@07,12,17, #180 TAB Allan Lindsey MD R2 Mar 05, 2018 15:59
== END 2018-03-05 13:22 | disposition home health service (06) ==
LOC: NEPE 14:01 → NEDA 18:49 → NEPFCDU 20:20 → N05B 03-04 17:18
PROVIDERS: ADMIT Family Medicine; ATTEND Family Medicine
DX: R55 Syncope and collapse (principal); N39.0 Urinary tract infection, site not specified; I95.1 Orthostatic hypotension; E11.43 Type 2 diabetes mellitus with diabetic autonomic (poly)neuropathy; E11.49 Type 2 diabetes mellitus with other diabetic neurological complication; E11.65 Type 2 diabetes mellitus with hyperglycemia; E11.51 Type 2 diabetes mellitus with diabetic peripheral angiopathy without gangrene; E11.42 Type 2 diabetes mellitus with diabetic polyneuropathy; K31.84 Gastroparesis; B96.20 Unspecified Escherichia coli [E. coli] as the cause of diseases classified elsewhere; R94.31 Abnormal electrocardiogram [ECG] [EKG]; I10 Essential (primary) hypertension; K74.60 Unspecified cirrhosis of liver; E86.0 Dehydration; G90.1 Familial dysautonomia [Riley-Day]; J44.9 Chronic obstructive pulmonary disease, unspecified; N28.9 Disorder of kidney and ureter, unspecified; B19.20 Unspecified viral hepatitis C without hepatic coma; Z16.12 Extended spectrum beta lactamase (ESBL) resistance; Z95.0 Presence of cardiac pacemaker; Z79.4 Long term (current) use of insulin; Z85.818 Personal history of malignant neoplasm of other sites of lip, oral cavity, and pharynx; Z86.73 Personal history of transient ischemic attack (TIA), and cerebral infarction without residual deficits
CPT/HCPCS: 71045; 80053; 80307; 81001; 82550; 82948; 83605; 83735; 83880; 84100; 84484; 85025; 85610; 85730; 87040; 87077; 87086; 87186; 93005; 93306; 93880; 96361; 96365; 97161; 97167; 99285; G0378; G8987; G8988; J0696; J1335; J1644; J1815; J7030

== ENCOUNTER 2018-03-08 16:10 | Observation (INO) | payer MEDICARE ==
[~2018-03-08] VITALS: Ht 172.7 cm; Wt 72.7 kg
[2018-03-08] VITALS (7 sets, daily range): BP systolic 81–156; BP diastolic 51–87; PULSE 75–88; RESP 16–18; TEMP 97.9–100.4; O2SAT 97–100
[~2018-03-08 16:10] MED LIST changes: +EPIN1INJ21 IV PUSH; +EPIN1INJ21 SQ; +FLUD.1 PO; +INVA1INJ IV; +MISCMIS81; +SOLU250I IV PUSH
[2018-03-08] MEDS ORDERED: SODIUM CHLOR 0.9% 1000 ML INJ 1,000 ML IV ONE ×2 (16:37)
[2018-03-08] MEDS ORDERED: SODIUM CHLOR 0.9% 1000 ML INJ 400 ML IV ONE (16:37)
[2018-03-08] MEDS ORDERED: ACETAMINOPHEN 325 MG TAB PO ONE (16:45)
[2018-03-08] MEDS ORDERED: ERTAPENEM SODIUM 1000 MG VIAL IV ONE (16:45)
[2018-03-08] MEDS ORDERED: SODIUM CHLORIDE 0.9% FLUSH 10 ML FLUSH IV FLUSH PRN ×2 (16:45→19:15)
--- NOTE | 2018-03-08 16:47 | PD ---
HPI Chief Complaint: GI Complaint Time Seen by Provider: 16:20 Travel History International Travel<30 days: No Contact w/Intl Traveler<30days: No Traveled to known affect area: No History of Present Illness HPI Patient comes emergency department for evaluation of suprapubic abdominal pain that began shortly after being discharged from the hospital 3 days ago. Patient states that they were supposed to have outpatient IV infusions however she has not gotten any for that reason she came back to the emergency department. Patient denies any known fevers. Describes pain as stabbing pain without radiation. Denies any back pain, nausea, vomiting, chest pain or shortness of breath, or fevers. Patient denies anything making it better. Touching her abdomen makes the pain worse. Severity mild. PFSH Past Medical History Hx Anticoagulant Therapy: No Arthritis: No Asthma: Yes Atrial Fibrillation: Yes Autoimmune Disease: No Blood Disorders: No Anxiety: No Depression: No Heart Rhythm Problems: Yes (Pacemaker) Cancer: Yes (throat (in remission)) Cardiovascular Problems: Yes (HTN, HYPOTENSIVE ) High Cholesterol: No Chemotherapy: Yes Chest Pain: No Congestive Heart Failure: No COPD: No Cerebrovascular Accident: Yes Diabetes: Yes Diminished Hearing: No Endocrine: Yes Gastrointestinal Disorders: Yes (esophagitis, gastritis) GERD: No Glaucoma: No Genitourinary: Yes Headaches: Yes Hepatitis: Yes (HEP C) Hiatal Hernia: No Heparin Induced Thrombocytopen: No Hypertension: Yes Immune Disorder: No Implanted Vascular Access Dvce: Yes (PORT R CHEST) Kidney Stones: Yes Musculoskeletal: Yes Neurologic: Yes (diabetic peripheral neuropathy) Psychiatric: No Reproductive: No Respiratory: Yes Immunizations Current: Yes Migraines: No Myocardial Infarction: No Pancreatitis: Yes Radiation Therapy: Yes Renal Failure: No Seizures: No Sickle Cell Disease: No Sleep Apnea: No Thyroid Disease: No Triglycerides - High: Yes Ulcer: No PNEUMOCCOCAL Vaccine (Year): 2 Menopausal: Yes : 3 Para: 2 Miscarriage: 1 : 0 Ectopic : No Ovarian Cysts: No Tubal Ligation: No Past Surgical History Abdominal Surgery: Yes (appendectomy, cholecystectomy) AICD: No Appendectomy: Yes Arteriovenous Shunt: No Body Medical Devices: pacemaker Cardiac Surgery: Yes (pacemaker) Section: Yes (x1) Cholecystectomy: Yes Coronary Stent: Yes (L femoral stent ) Ear Surgery: No Endocrine Surgery: No Eye Surgery: No Genitourinary Surgery: No Hysterectomy: No Insulin Pump: No Joint Replacement: No Neurologic Surgery: No Oral Surgery: Yes (tonsillectomy) Pacemaker: Yes Thoracic Surgery: No Tonsillectomy: Yes Other Surgery: Yes (port placed 2016 appendectomy, cholecystectomy, tonsillectomy) Social History Alcohol Use: No (DENIES) Tobacco Use: No (QUIT) Substance Use: No Allergies-Medications (Allergen,Severity, Reaction): Coded Allergies: tramadol (Verified Allergy, Intermediate, Rash, 03/08/18) MRI PRECAUTION (Verified Adverse Reaction, Severe, PACEMAKER IS NOT A BIOTRONIK OR MEDTRONIC 06/15/16 KMD, 03/08/18) PACEMAKER IS NOT A BIOTRONIK OR MEDTRONIC CONDITIONAL PACEMAKER. CALLED BOTH COMPANIES TO CONFIRM. metformin (Verified Adverse Reaction, Severe, DIARRHEA, 03/08/18) morphine (Verified Adverse Reaction, Severe, Dizziness, 03/08/18) oxycodone (Verified Adverse Reaction, Severe, Nausea/Vomiting, 03/08/18) prochlorperazine (Verified Adverse Reaction, Severe, ANXIETY, 03/08/18) ANXIETY Reported Meds & Prescriptions Reported Meds & Active Scripts Active Sodium Chloride 1 Gram Tab 1 Gm PO DAILY Midodrine 5 Mg Tab 5 Mg PO TID@0700,1500,1700 Fludrocortisone (Fludrocortisone Acetate) 0.1 Mg Tab 0.1 Mg PO DAILY Invanz Inj (Ertapenem) 1 Gm Addvial 1 Gm IV Q24H 10 Days ADMINISTER IN 100ML NS Epinephrine Inj 1 Mg/Ml (1 Ml) Inj 0.3 Mg SQ ONCE PRN Give with any signs of respiratory distress. Epinephrine Inj 1 Mg/Ml (1 Ml) Inj 0.3 Mg IV PUSH ONCE PRN Solu-Cortef Inj (Hydrocortisone Sodium Succinate) 250 Mg/2 Ml Inj 250 Mg IV PUSH ONCE PRN Give over 30-60 seconds. E.E.S. Liq (Erythromycin Ethylsuccinate) 200 Mg/5 Ml Susp 200 Mg PO TIDAC Gabapentin 400 Mg Cap 400 Mg PO TID Reported Levemir Inj (Insulin Detemir) 1,000 unit/ 10 ML Vial 5 Units SQ BID Do not mix with any other Insulin. Review of Systems Except as stated in HPI: all other systems reviewed are Neg Physical Exam Narrative GENERAL: Well-developed, well nourished, in no acute distress, and non-ill appearing. SKIN: Focused skin assessment warm and dry. HEAD: Atraumatic. Normocephalic. EYES: Pupils equal and round. EOMI. No scleral icterus. No injection or drainage. ENT: No nasal bleeding or discharge. Mucous membranes pink and moist. NECK: Trachea midline. Supple. No nuclear rigidity. CARDIOVASCULAR: Regular rate and rhythm. No murmur appreciated. RESPIRATORY: No accessory muscle use. No respiratory distress. Clear to auscultation. Breath sounds equal bilaterally. GASTROINTESTINAL: Abdomen soft, nondistended, and no guarding. Hepatic and splenic margins not palpable. Normal bowel sounds x4. No pulsatile mass. Patient reports tenderness palpation suprapubic area. MUSCULOSKELETAL: No obvious deformities. No clubbing. No cyanosis. No edema. Full range of motion. NEUROLOGICAL: Awake and alert. No obvious cranial nerve deficits. Motor grossly within normal limits. Normal speech. PSYCHIATRIC: Appropriate mood and affect; insight and judgment normal. Data Data Last Documented VS Vital Signs Date Time Temp Pulse Resp B/P (MAP) Pulse Ox O2 Delivery O2 Flow Rate FiO2 03/08/18 17:02 100 Room Air 03/08/18 17:02 88 16 03/08/18 16:36 100.4 Orders Orders Sepsis Workup Initiated (03/08/18 ) Complete Blood Count With Diff (03/08/18 16:37) Comprehensive Metabolic Panel (03/08/18 16:37) Lactic Acid Sepsis Protocol (03/08/18 16:37) Urinalysis - C+S If Indicated (03/08/18 16:37) Blood Culture (03/08/18 16:37) Chest, Single Ap (03/08/18 16:37) Blood Glucose (03/08/18 16:37) Ecg Monitoring (03/08/18 16:37) Iv Access Insert/Monitor (03/08/18 16:37) Oximetry (03/08/18 16:37) Oxygen Administration (03/08/18 16:37) Acetaminophen (Tylenol) (03/08/18 16:45) Sodium Chlor 0.9% 1000 Ml Inj (Ns 1000 M (03/08/18 16:37) Sodium Chlor 0.9% 1000 Ml Inj (Ns 1000 M (03/08/18 16:37) Sodium Chlor 0.9% 1000 Ml Inj (Ns 1000 M (03/08/18 16:37) Sodium Chloride 0.9% Flush (Ns Flush) (03/08/18 16:45) Lipase (03/08/18 16:52) Ertapenem Inj (Invanz Inj) (03/08/18 18:00) Admit Order (Ed Use Only) (03/08/18 18:51) Labs Laboratory Tests Test 03/08/18 16:52 White Blood Count 5.0 TH/MM3 Red Blood Count 3.71 MIL/MM3 Hemoglobin 10.3 GM/DL Hematocrit 31.0 % Mean Corpuscular Volume 83.6 FL Mean Corpuscular Hemoglobin 27.9 PG Mean Corpuscular Hemoglobin Concent 33.3 % Red Cell Distribution Width 14.9 % Platelet Count 227 TH/MM3 Mean Platelet Volume 7.9 FL Neutrophils (%) (Auto) 59.5 % Lymphocytes (%) (Auto) 28.5 % Monocytes (%) (Auto) 8.3 % Eosinophils (%) (Auto) 3.0 % Basophils (%) (Auto) 0.7 % Neutrophils # (Auto) 3.0 TH/MM3 Lymphocytes # (Auto) 1.4 TH/MM3 Monocytes # (Auto) 0.4 TH/MM3 Eosinophils # (Auto) 0.1 TH/MM3 Basophils # (Auto) 0.0 TH/MM3 CBC Comment DIFF FINAL Differential Comment Blood Urea Nitrogen 12 MG/DL Creatinine 1.08 MG/DL Random Glucose 109 MG/DL Total Protein 7.6 GM/DL Albumin 3.7 GM/DL Calcium Level 10.1 MG/DL Alkaline Phosphatase 109 U/L Aspartate Amino Transf (AST/SGOT) 14 U/L Alanine Aminotransferase (ALT/SGPT) 19 U/L Total Bilirubin 0.4 MG/DL Sodium Level 141 MEQ/L Potassium Level 4.0 MEQ/L Chloride Level 105 MEQ/L Carbon Dioxide Level 28.6 MEQ/L Anion Gap 7 MEQ/L Estimat Glomerular Filtration Rate 53 ML/MIN Lactic Acid Level 1.4 mmol/L Lipase 240 U/L [facility] Medical Decision Making Medical Screen Exam Complete: Yes Emergency Medical Condition: Yes Medical Record Reviewed: Yes Differential Diagnosis Sepsis, UTI, metabolic disturbance, abdominal pain, medical noncompliance Narrative Course Patient seen and examined. IV was established patient was placed on continuous cardiac monitoring. IV fluid and IV antibiotics were ordered. Patient's chart reviewed and noted that infectious disease recommended iv ertapenem as patient UTI was resistance to Cipro and Bactrim, which was antibiotic ordered here in the emergency department. Discussed patient with case management who found patient's name on her ID and her insurance do not match is likely the reason patient was unable to get antibiotics as an outpatient. Reports they try to remedy this. Discussed all findings and plan of care with patient exception of UA this has not been collected yet. Patient agreeable to admission. Discussed patient with Dr. Land is in agreement plan of care disposition. Discussed patient with residents, who are agreeable to admit the patient. Patient remained stable throughout ED course. Physician Communication Physician Communication [phone] discussed patient with residents bonding agent who is agreeable to admit patient for Dr. Holloway. Diagnosis Primary Impression: Abdominal pain Qualified Codes: R10.30 - Lower abdominal pain, unspecified Additional Impression: UTI (urinary tract infection) Admitting Information Admitting Physician Requests: Observation Condition: Stable Kraig Bee March 08, 2018 16:47
--- NOTE | 2018-03-08 17:10 | RADRPT ---
EXAM DATE/TIME: 03/08/2018 16:46 [facility] COMPARISON: CHEST SINGLE AP, March 02, 2018, 15:21. INDICATIONS : Fever. MEDICAL HISTORY : None. SURGICAL HISTORY : Pacemaker. Infusaport. ENCOUNTER: Initial ACUITY: 1 day PAIN SCORE: 0/10 LOCATION: Bilateral chest FINDINGS: A single view of the chest demonstrates the lungs to be symmetrically aerated without evidence of mas s, infiltrate or effusion. The cardiomediastinal contours are unremarkable. Osseous structures are intact. [id number] catheter tip in the mid superior vena cava. Cardiac pacer leads stable in pos ition. CONCLUSION: The lungs are clear. Lloyd Orr MD on March 08, 2018 at 17:08 Board Certified Radiologist. This report was verified electronically.
[2018-03-08 17:37] LABS: BASOPHIL % 0.7 % (0.0-2.0); EOSINOPHIL # 0.1 TH/MM3 (0-0.4); HEMOGLOBIN 10.3 GM/DL (11.6-15.3); LYMPH % 28.5 % (9.0-44.0); LYMPHOCYTE # 1.4 TH/MM3 (1.0-4.8); MEAN CELL VOLUME 83.6 FL (80.0-100.0); MEAN CORPUSCULAR HEMOGLOBIN 27.9 PG (27.0-34.0); MEAN CORPUSCULAR HGB CONC 33.3 % (32.0-36.0); MEAN PLATELET VOLUME 7.9 FL (7.0-11.0); MONO % 8.3 % (0.0-8.0); MONOCYTE # 0.4 TH/MM3 (0-0.9); NEUT % 59.5 % (16.0-70.0); PLATELET COUNT 227 TH/MM3 (150-450); RED BLOOD COUNT 3.71 MIL/MM3 (4.00-5.30); RED CELL DISTRIBUTION WIDTH 14.9 % (11.6-17.2)
[2018-03-08 17:59] LABS: ALBUMIN 3.7 GM/DL (3.4-5.0); AST (GOT) 14 U/L (15-37); BICARBONATE 28.6 MEQ/L (21.0-32.0); BLOOD UREA NITROGEN 12 MG/DL (7-18); CALCIUM 10.1 MG/DL (8.5-10.1); CHLORIDE 105 MEQ/L (98-107); CREATININE 1.08 MG/DL (0.50-1.00); GLOMERULAR FILTRATION RATE 53 ML/MIN (>89); GLUCOSE,RANDOM 109 MG/DL (74-106); SODIUM (NA) 141 MEQ/L (136-145)
[2018-03-08 18:00] LABS: ALT (GPT) 19 U/L (10-53)
[2018-03-08] MEDS ORDERED: ERTAPENEM 1,000 MG/NS 100 ML IV ONE ×2 (18:00)
[2018-03-08 18:02] LABS: ALKALINE PHOSPHATASE 109 U/L (45-117); TOTAL BILIRUBIN ADULT 0.4 MG/DL (0.2-1.0); TOTAL PROTEIN 7.6 GM/DL (6.4-8.2)
--- NOTE | 2018-03-08 19:06 | HHI.HP ---
HPI Service Family Medicine Primary Care Physician Unknown Admission Diagnosis Abdominal pain, UTI Diagnoses: Chief Complaint: abdominal pain International Travel<30 Days: No Contact w/Intl Traveler<30days: No Known Affected Area: No History of Present Illness 52-year-old female presents several days after discharging for abdominal pain. Patient was discharged on 03/05 after being admitted for orthostatic hypotension. Patient was also found to have recurrent UTI due to ESBL E. coli. ID was consulted who recommended ertapenem daily, and recommended outpatient treatment for 10 days total. Patient was receiving home health, but never received the antibiotics at home. She is returning due to a mild fever and some abdominal pain. Per ED report, patient's insurance card has a different name listed in her given name, therefore there was an issue with getting the antibiotics for her. Patient complains of mild suprapubic abdominal pain. Denies any dysuria or urinary frequency. No hematuria. Otherwise, reports doing well. Denies any chest pain, shortness of breath, leg pain/swelling. (Alberto Lugo MD R2) Review of Systems Constitutional: COMPLAINS OF: Fever, DENIES: Weight loss, Chills, Dizziness Eyes: DENIES: Eye pain, Vision loss Ears, nose, mouth, throat: DENIES: Nasal discharge, Throat pain Respiratory: DENIES: Apneas, Cough, Snoring Cardiovascular: DENIES: Chest pain, Palpitations Gastrointestinal: COMPLAINS OF: Abdominal pain, DENIES: Black stools, Bloody stools, Constipation, Diarrhea, Nausea, Vomiting Genitourinary: DENIES: Urinary frequency, Urgency, Hematuria, Dysuria Musculoskeletal: DENIES: Joint Swelling, Back pain, Neck pain Integumentary: DENIES: Rash, Nail changes Neurologic: DENIES: Headache Psychiatric: DENIES: Anxiety, Confusion (Alberto Lugo MD R2) Past Family Social History Past Medical History Orthostatic hypotension Diabetes mellitus type 2 Hepatitis C 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 History of CVA Dysautonomia * Gastroparesis * Orthostatic hypotension Pacemaker Asthma Genital herpes and warts Osteoarthritis Cataracts Peripheral neuropathy Past Surgical History Appendectomy Cholecystectomy Tonsillectomy Amputation of left great toe 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 Epinephrine Inj 1 Mg/Ml (1 Ml) Inj 0.3 Mg IV PUSH ONCE PRN Solu-Cortef Inj (Hydrocortisone Sodium Succinate) 250 Mg/2 Ml Inj 250 Mg IV PUSH ONCE PRN Give over 30-60 seconds. E.E.S. Liq (Erythromycin Ethylsuccinate) 200 Mg/5 Ml Susp 200 Mg PO TIDAC Gabapentin 400 Mg Cap 400 Mg PO TID Reported Levemir Inj (Insulin Detemir) 1,000 unit/ 10 ML Vial 5 Units SQ BID Do not mix with any other Insulin. (Alberto Lugo MD R2) Allergies: Coded Allergies: tramadol (Verified Allergy, Intermediate, Rash, 03/08/18) MRI PRECAUTION (Verified Adverse Reaction, Severe, PACEMAKER IS NOT A BIOTRONIK OR MEDTRONIC 06/15/16 KMD, 03/08/18) PACEMAKER IS NOT A BIOTRONIK OR MEDTRONIC CONDITIONAL PACEMAKER. CALLED BOTH COMPANIES TO CONFIRM. metformin (Verified Adverse Reaction, Severe, DIARRHEA, 03/08/18) morphine (Verified Adverse Reaction, Severe, Dizziness, 03/08/18) oxycodone (Verified Adverse Reaction, Severe, Nausea/Vomiting, 03/08/18) prochlorperazine (Verified Adverse Reaction, Severe, ANXIETY, 03/08/18) ANXIETY Active Ordered Medications Active Medications Acetaminophen (Tylenol) 650 mg ONCE ONCE PO Last administered on 03/08/18at 17:21 ; Admin Dose 650 MG; Start 03/08/18 at 16:45; Stop 03/08/18 at 16:46; Status DC Acetaminophen (Tylenol) 650 mg Q4H PRN PO; Start 03/08/18 at 19:15 Bisacodyl (Dulcolax Supp) 10 mg DAILY PRN RECTAL; Start 03/08/18 at 19:15 Dextrose (D50w (Vial) Inj) 50 ml UNSCH PRN IV PUSH; Start 03/08/18 at 19:15 Ertapenem (INVanz INJ) 1,000 mg ONCE ONCE IV; Start 03/08/18 at 16:45; Stop 03/08 at 16:46; Status Cancel Ertapenem 1000 mg/ Sodium Chloride 100 ml @ 200 mls/hr ONCE ONCE IV Last administered on 03/08/18at 18:06; Admin Dose 200 MLS/HR; Start 03/08/18 at 18:00; Stop 03/08/18 at 18:29; Status DC Erythromycin Ethylsuccinate (Ees 200 Mg/5 ml Liq) 200 mg TIDAC PO; Start at 08:00 Fludrocortisone Acetate (Florinef) 0.1 mg DAILY PO; Start 03/09/18 at 09:00 Gabapentin (Neurontin) 400 mg TID PO; Start 03/09/18 at 09:00 Glucagon (Glucagon Inj) 1 mg UNSCH PRN OTHER; Start 03/08/18 at 19:15 Heparin Sodium (Porcine) (Heparin Inj) 5,000 units Q12HR SQ; Start 03/08/18 at 19 :15 Insulin Aspart (NovoLOG SUPPLEMENTAL SCALE) 1 ACHS SLIDING SCALE SQ; Start 03/08 at 21:00 Lactulose (Lactulose Liq) 30 ml DAILY PRN PO; Start 03/08/18 at 19:15 Magnesium Hydroxide (Milk Of Magnesia Liq) 30 ml Q12H PRN PO; Start 03/08/18 at 19:15 Midodrine (Proamatine) 5 mg TID@0700,1500,1700 PO; Start 03/09/18 at 07:00 Naloxone HCl (Narcan Inj) 0.4 mg UNSCH PRN IV PUSH; Start 03/08/18 at 19:15 Ondansetron HCl (Zofran Inj) 4 mg Q6H PRN IVP; Start 03/08/18 at 19:15 Senna/Docusate Sodium (Tamiko-Colace) 1 tab BID PO; Start 03/08/18 at 21:00 Sennosides (Senokot) 17.2 mg Q12H PRN PO; Start 03/08/18 at 19:15 Sodium Chloride 400 ml @ 1,000 mls/hr Q24M ONCE IV Last administered on at 17:22; Admin Dose 1,000 MLS/HR; Start 03/08/18 at 16:37; Stop 03/08/18 at 17: 00; Status DC Sodium Chloride 1,000 ml @ 100 mls/hr Q10H IV; Start 03/08/18 at 19:06 Sodium Chloride 1,000 ml @ 1,000 mls/hr Q1H ONCE IV Last administered on at 17:21; Admin Dose 1,000 MLS/HR; Start 03/08/18 at 16:37; Stop 03/08/18 at 17: 36; Status DC Sodium Chloride 1,000 ml @ 1,000 mls/hr Q1H ONCE IV Last administered on at 17:22; Admin Dose 1,000 MLS/HR; Start 03/08/18 at 16:37; Stop 03/08/18 at 17: 36; Status DC Sodium Chloride (NS Flush) 2 ml BID IV FLUSH; Start 03/08/18 at 21:00 Sodium Chloride (NS Flush) 2 ml UNSCH PRN IV FLUSH; Start 03/08/18 at 16:45 Sodium Chloride (NS Flush) 2 ml UNSCH PRN IV FLUSH; Start 03/08/18 at 19:15 Family History Mother-unknown medical history Father-heart disease, DM Sister-CAD Social History Lives with her roommates Receives disability, unemployed Denies alcohol use Tobacco: quit in 2003, smoked about 1/2 PPD x 14 years prior to quitting (Alberto Lugo MD R2) Physical Exam Vital Signs Vital Signs Date Time Temp Pulse Resp B/P (MAP) Pulse Ox O2 Delivery O2 Flow Rate FiO2 03/08/18 17:02 100 Room Air 03/08/18 17:02 88 16 100 Room Air 03/08/18 16:36 100.4 80 16 81/51 (61) 99 Room Air 03/08/18 16:36 16 03/08/18 16:31 100.4 80 16 81/51 (61) 99 Physical Exam GENERAL: This is a well-nourished, well-developed patient, in no apparent distress. SKIN: No rashes, ecchymoses or lesions. Cool and dry. HEAD: Atraumatic. Normocephalic. No temporal or scalp tenderness. EYES: Pupils equal round and reactive. Extraocular motions intact. No scleral icterus. No injection or drainage. ENT: Throat without erythema, tonsillar hypertrophy or exudate. Uvula midline. Airway patent. NECK: Trachea midline. No JVD or lymphadenopathy. Supple, nontender. CARDIOVASCULAR: Regular rate and rhythm without murmurs, gallops, or rubs. RESPIRATORY: Clear to auscultation. Breath sounds equal bilaterally. No wheezes , rales, or rhonchi. GASTROINTESTINAL: Abdomen soft, mild tenderness to palpation in suprapubic region. MUSCULOSKELETAL: Extremities without clubbing, cyanosis, or edema. No joint tenderness, effusion, or edema noted. No calf tenderness. NEUROLOGICAL: Awake and alert. Motor and sensory grossly within normal limits. Normal speech. Laboratory Laboratory Tests Test 03/08/18 16:52 White Blood Count 5.0 Red Blood Count 3.71 Hemoglobin 10.3 Hematocrit 31.0 Mean Corpuscular Volume 83.6 Mean Corpuscular Hemoglobin 27.9 Mean Corpuscular Hemoglobin Concent 33.3 Red Cell Distribution Width 14.9 Platelet Count 227 Mean Platelet Volume 7.9 Neutrophils (%) (Auto) 59.5 Lymphocytes (%) (Auto) 28.5 Monocytes (%) (Auto) 8.3 Eosinophils (%) (Auto) 3.0 Basophils (%) (Auto) 0.7 Neutrophils # (Auto) 3.0 Lymphocytes # (Auto) 1.4 Monocytes # (Auto) 0.4 Eosinophils # (Auto) 0.1 Basophils # (Auto) 0.0 CBC Comment DIFF FINAL Differential Comment Blood Urea Nitrogen 12 Creatinine 1.08 Random Glucose 109 Total Protein 7.6 Albumin 3.7 Calcium Level 10.1 Alkaline Phosphatase 109 Aspartate Amino Transf (AST/SGOT) 14 Alanine Aminotransferase (ALT/SGPT) 19 Total Bilirubin 0.4 Sodium Level 141 Potassium Level 4.0 Chloride Level 105 Carbon Dioxide Level 28.6 Anion Gap 7 Estimat Glomerular Filtration Rate 53 Lactic Acid Level 1.4 Lipase 240 Date/Time Source Procedure Growth Status 03/08/18 16:52 Blood Peripheral Aerobic Blood Culture Pending Received 03/08/18 16:52 Blood Peripheral Anaerobic Blood Culture Pending Received (Alberto Lugo MD R2) Result Diagram: 03/08/18 1652 03/08/18 1652 Imaging Last Impressions Chest X-Ray 03/08/18 1637 Signed Impressions: Service Date/Time: March 16:46 - CONCLUSION: The lungs are clear. Lloyd Orr MD (Alberto Lugo MD R2) Caprini VTE Risk Assessment Caprini VTE Risk Assessment: Mod/High Risk (score >= 2) Caprini Risk Assessment Model Point Value = 1 Point Value = 2 Point Value = 3 Point Value = 5 Age 41-60 Minor surgery BMI > 25 kg/m2 Swollen legs Varicose veins or History of unexplained or recurrent spontaneous Oral contraceptives or hormone replacement Sepsis (< 1 month) Serious lung disease, including pneumonia (< 1 month) Abnormal pulmonary function Acute myocardial infarction Congestive heart failure (< 1 month) History of inflammatory bowel disease Medical patient at bed rest Age 61-74 Arthroscopic surgery Major open surgery (> 45 min) Laparoscopic surgery (> 45 min) Malignancy Confined to bed (> 72 hours) Immobilizing plaster cast Central venous access Age >= 75 History of VTE Family history of VTE Factor V Leiden Prothrombin [id number] Lupus anticoagulant Anticardiolipin antibodies Elevated serum homocysteine Heparin-induced thrombocytopenia Other congenital or acquired thrombophilia Stroke (< 1 month) Elective arthroplasty Hip, pelvis, or leg fracture Acute spinal cord injury (< 1 month) Prophylaxis Regimen Total Risk Factor Score Risk Level Prophylaxis Regimen 0-1 Low Early ambulation 2 Moderate Order ONE of the following: *Sequential Compression Device (SCD) *Heparin 5000 units SQ BID 3-4 Higher Order ONE of the following medications: *Heparin 5000 units SQ TID *Enoxaparin/Lovenox 40 mg SQ daily (WT < 150 kg, CrCl > 30 mL/min) *Enoxaparin/Lovenox 30 mg SQ daily (WT < 150 kg, CrCl > 10-29 mL/min) *Enoxaparin/Lovenox 30 mg SQ BID (WT < 150 kg, CrCl > 30 mL/min) AND/OR *Sequential Compression Device (SCD) 5 or more Highest Order ONE of the following medications: *Heparin 5000 units SQ TID (Preferred with Epidurals) *Enoxaparin/Lovenox 40 mg SQ daily (WT < 150 kg, CrCl > 30 mL/min) *Enoxaparin/Lovenox 30 mg SQ daily (WT < 150 kg, CrCl > 10-29 mL/min) *Enoxaparin/Lovenox 30 mg SQ BID (WT < 150 kg, CrCl > 30 mL/min) AND *Sequential Compression Device (SCD) (Alberto Lugo MD R2) Assessment and Plan Assessment and Plan 52-year-old female history of orthotic hypertension, diabetes, hepatitis C presents after not receiving her IV antibiotics at home. Will admit for IV antibiotic administration and case management for receiving him home. Code Status Full Discussed Condition With Dr. Dockery (Alberto Lugo MD R2) Attending Attestation Patient seen and examined on 03/09. Case reviewed and discussed Please refer to resident H&P for further details regarding HPI, ROS, PMH, SurgHx , FH and SocHx In summary, patient is a 52yoF with multiple medical comorbidities who was recently discharged with arrangements for outpatient Ertapenem for MDRO UTI. Patient reports that the [facility] RN came to her house, but the medications were never delivered. After the RN was unable to get this arranged, patient came back to the ED. Physical exam GENERAL: thin female, malnourished appearing, sitting up in bed. SKIN: Warm and dry. No rashes, lesions HEAD: Normocephalic. AT EYES: No scleral icterus. No injection or drainage. ENT: Edentulous. MMM NECK: Supple, trachea midline. No JVD or lymphadenopathy. CARDIOVASCULAR: Regular rate and rhythm without murmurs, gallops, or rubs. PM over anterior chest RESPIRATORY: Breath sounds equal and clear bilaterally. No accessory muscle use. GASTROINTESTINAL: Abdomen soft, mildly tender over suprapubic region with deep palpation, nondistended. No rebound MUSCULOSKELETAL: No cyanosis, or edema. No calf tenderness BACK: Nontender without obvious deformity. No CVA tenderness. Assessment Failed outpatient treatment for UTI Recent Syncope Severe orthostatic Hypotension UTI with hx MDRO Dehydration Intractable emesis Acute renal insufficiency Diabetes mellitus type 2 Hepatitis C Oropharyngeal cancer-cancer free for about a year History of CVA Dysautonomia with Orthostatic hypotension Gastroparesis Pacemaker Asthma Peripheral neuropathy PLAN PT evaluation CM consultation to re-arrange therapy Resume antibiotic therapy Urine culture IVF resuscitation Fludrocortisone EES for gastroparesis (previously not responsive to reglan from [facility] in 2016) Resume home meds as appropriate Monitor electrolytes, replete as needed Glucerna Orthostatic VS q4h Patient seen and examined. Case reviewed and discussed Agree with plan of care as discussed with me and documented in the resident note. (Keyana Holloway MD) Problem List: (1) UTI (lower urinary tract infection) ICD Codes: N39.0 - Lower urinary tract infectious disease Status: Acute Plan: Emergency diagnosed with UTI with ESBL E. coli. Patient was started on ertapenem, supposed to have completed 10 days. Has not received any since being discharged. UA today shows large leukocyte esterase, 14 WBC, few bacteria. Urine culture pending Given 1 g of ertapenem in the ED -Continue Ertapenem 1g daily while admitted -Urine culture pending -IVF -Case management consult (2) Orthostatic hypotension ICD Codes: I95.1 - Orthostatic hypotension Status: Chronic Plan: Continue midodrine 5mg PO TID, fludrocortisone 0.1mg PO daily Continue 1gm NaCl tab daily (3) DM (diabetes mellitus) ICD Codes: E11.9 - Type 2 diabetes mellitus without complications Status: Chronic Plan: Hold home Levemir 5 units BID Low dose sliding scale while inpatient Monitor accuchecks (4) Gastroparesis ICD Codes: K31.84 - Gastroparesis Status: Chronic Plan: Continue Erythromycin (5) FEN Status: Acute Plan: Fluids: NS @ 100mls/hr Electrolytes: monitor, replace PRN Nutrition: Diabetic diet w/ glucerna DVT ppx: Heparin BID (Alberto Lugo MD R2) Alberto Lugo MD R2 March 08, 2018 19:06 Keyana Holloway MD March 10, 2018 09:54
[2018-03-08] MEDS ORDERED: ONDANSETRON HCL 4 MG/2 ML VIAL IVP PRN (19:15)
[2018-03-08] MEDS ORDERED: BISACODYL 10 MG SUPP RECTAL PRN (19:15)
[2018-03-08] MEDS ORDERED: LACTULOSE SYRUP 20 GM/30 ML CUP PO PRN (19:15)
[2018-03-08] MEDS ORDERED: GLUCAGON 1 MG/ML VIAL OTHER PRN (19:15)
[2018-03-08] MEDS ORDERED: ACETAMINOPHEN 325 MG TAB PO PRN (19:15)
[2018-03-08] MEDS ORDERED: DEXTROSE 50% IN WATER 50 ML VIAL(D50) IV PUSH PRN (19:15)
[2018-03-08] MEDS ORDERED: MAGNESIUM HYDROXIDE SUSP 30 ML CUP PO PRN (19:15)
[2018-03-08] MEDS ORDERED: SENNOSIDES 8.6 MG TAB PO PRN (19:15)
[2018-03-08] MEDS ORDERED: NALOXONE HCL 0.4 MG/ML AMP IV PUSH PRN (19:15)
[2018-03-08 19:29] LABS: BACTERIA, URINE FEW /hpf; BILIRUBIN, URINE NEG (NEG); BLOOD, URINE NEG (NEG); GLUCOSE,URINE NEG (NEG); KETONE, URINE NEG (NEG); NITRITE,URINE NEG (NEG); PH, URINE 5.5 (5.0-8.5); SQUAMOUS EPITHELIAL CELL URINE 12 /hpf (0-5); URINE COLOR YELLOW (YELLW/STRAW); URINE LEUKOCYTE ESTERASE LARGE (NEG)
[2018-03-08] MEDS: HEPARIN SODIUM - SQ 10,000 UNITS/ML VIAL SQ SCH (19:45)
[2018-03-08] MEDS: INSULIN ASPART SUPPLEMENTAL SCALE SQ SCH (21:00)
[2018-03-08] MEDS: SODIUM CHLORIDE 0.9% FLUSH 10 ML FLUSH IV FLUSH SCH (21:00)
[2018-03-08] MEDS: DOCUSATE SODIUM 50 MG/SENNA 8.6 MG TAB PO SCH (21:00)
[2018-03-08] MEDS: SODIUM CHLOR 0.9% 1000 ML INJ 1,000 ML IV SCH (21:26)
[2018-03-09 04:15] VITALS: BP 146/74; PULSE 75; RESP 16; TEMP 98.1; O2SAT 100
[2018-03-09] MEDS: MIDODRINE 5 MG TAB PO SCH ×3 (06:04→16:34)
[2018-03-09 06:33] LABS: AUTOMATED NEUTROPHIL # 1.2 TH/MM3 (1.8-7.7); BASOPHIL % 1.2 % (0.0-2.0); EOSINOPHIL # 0.1 TH/MM3 (0-0.4); EOSINOPHIL % 4.5 % (0.0-4.0); HEMATOCRIT 26.5 % (35.0-46.0); HEMOGLOBIN 8.9 GM/DL (11.6-15.3); LYMPHOCYTE # 0.7 TH/MM3 (1.0-4.8); MEAN CORPUSCULAR HEMOGLOBIN 28.2 PG (27.0-34.0); MEAN CORPUSCULAR HGB CONC 33.6 % (32.0-36.0); MEAN PLATELET VOLUME 7.9 FL (7.0-11.0); MONO % 11.6 % (0.0-8.0); MONOCYTE # 0.3 TH/MM3 (0-0.9); NEUT % 51.7 % (16.0-70.0); PLATELET COUNT 188 TH/MM3 (150-450); RED BLOOD COUNT 3.15 MIL/MM3 (4.00-5.30); RED CELL DISTRIBUTION WIDTH 14.9 % (11.6-17.2); WHITE BLOOD COUNT 2.2 TH/MM3 (4.0-11.0)
[2018-03-09 07:09] LABS: BICARBONATE 28.7 MEQ/L (21.0-32.0); CREATININE 0.73 MG/DL (0.50-1.00)
[2018-03-09 07:57] VITALS: BP 133/88; PULSE 80; RESP 20; TEMP 97.9; O2SAT 96
[2018-03-09] MEDS: INSULIN ASPART SUPPLEMENTAL SCALE SQ SCH ×3 (08:00→16:50)
[2018-03-09] MEDS: GABAPENTIN 400 MG CAP PO SCH ×3 (08:28→16:51)
[2018-03-09] MEDS: SODIUM CHLORIDE 0.9% FLUSH 10 ML FLUSH IV FLUSH SCH (08:28)
[2018-03-09] MEDS: DOCUSATE SODIUM 50 MG/SENNA 8.6 MG TAB PO SCH (08:29)
[2018-03-09] MEDS: HEPARIN SODIUM - SQ 10,000 UNITS/ML VIAL SQ SCH (08:29)
[2018-03-09] MEDS: ERYTHROMYCIN ETHYLSUCCINATE 200 MG/5 ML SUSP 100 ML BOTTLE PO SCH ×3 (08:30→16:33)
[2018-03-09] MEDS: SODIUM CHLOR 0.9% 1000 ML INJ 1,000 ML IV SCH ×2 (08:30→16:35)
[2018-03-09] MEDS ORDERED: SODIUM CHLORIDE 1 GRAM TAB PO SCH (09:00)
[2018-03-09] MEDS ORDERED: FLUDROCORTISONE ACETATE 0.1 MG TAB PO SCH (09:00)
[2018-03-09 11:21] VITALS: BP 128/68; PULSE 80; RESP 18; TEMP 97.9; O2SAT 96
--- NOTE | 2018-03-09 14:36 | HHI.FPPN ---
Subjective Remarks Patient seen and examined at bedside this am. No acute events overnight. Patient reports she feels fine. Denies CP, dizziness, fever, chills, N/V, abdominal pain, back pain, dysuria. Patient stated that she came to the ED because she was not able to get the IV antibiotics with home health. She has missed 3 days of IV antibiotics. (Olga Curry MD, R1) Objective Vitals Vital Signs Date Time Temp Pulse Resp B/P (MAP) Pulse Ox O2 Delivery O2 Flow Rate FiO2 03/09/18 11:21 97.9 80 18 128/68 (88) 96 03/09/18 09:11 21 03/09/18 07:57 97.9 80 20 133/88 (103) 96 03/09/18 04:15 98.1 75 16 146/74 (98) 100 03/08/18 23:37 97.9 79 16 138/87 (104) 100 03/08/18 20:25 98 03/08/18 19:56 98.0 75 16 148/73 (98) 97 03/08/18 19:46 03/08/18 19:06 75 18 156/78 (104) 99 Room Air 03/08/18 17:02 100 Room Air 03/08/18 17:02 88 16 100 Room Air 03/08/18 16:36 100.4 80 16 81/51 (61) 99 Room Air 03/08/18 16:36 16 03/08/18 16:31 100.4 80 16 81/51 (61) 99 I/O 03/08/18 03/08/18 03/08/18 03/09/18 03/09/18 03/09/18 07:00 15:00 23:00 07:00 15:00 23:00 Intake Total 2100 ml Balance 2100 ml Intake IV Total 2100 ml (Olga Curry MD, R1) Result Diagram: 03/09/18 0600 03/09/18 0600 Objective Remarks GENERAL: This is a well-nourished, well-developed patient, in no apparent distress. SKIN: No rashes, ecchymoses or lesions. Cool and dry. HEAD: Atraumatic. Normocephalic. No temporal or scalp tenderness. EYES: Pupils equal round and reactive. Extraocular motions intact. No scleral icterus. No injection or drainage. ENT: Throat without erythema, tonsillar hypertrophy or exudate. Uvula midline. Airway patent. NECK: Trachea midline. No JVD or lymphadenopathy. Supple, nontender. CARDIOVASCULAR: Regular rate and rhythm without murmurs, gallops, or rubs. RESPIRATORY: Clear to auscultation. Breath sounds equal bilaterally. No wheezes , rales, or rhonchi. GASTROINTESTINAL: Abdomen soft, non tender, non distended. Mild Left CVA tenderness. MUSCULOSKELETAL: Extremities without clubbing, cyanosis, or edema. No joint tenderness, effusion, or edema noted. No calf tenderness. NEUROLOGICAL: Awake and alert. Motor and sensory grossly within normal limits. Normal speech. (Olga Curry MD, R1) A/P Assessment and Plan 52-year-old female history of orthotic hypertension, diabetes, hepatitis C presents after not receiving her IV antibiotics at home. Will admit for IV antibiotic administration and case management for receiving him home. (Olga Curry MD, R1) Attending Attestation Patient seen and examined. Case reviewed and discussed Agree with plan of care as discussed with me and documented in the resident note. (Keyana Holloway MD) Problem List: (1) UTI (lower urinary tract infection) ICD Codes: N39.0 - Lower urinary tract infectious disease Status: Acute Plan: Emergency diagnosed with UTI with ESBL E. coli. Patient was started on ertapenem, supposed to have completed 10 days. Has not received any since being discharged. Patient is clinically stable. UA on admission shows large leukocyte esterase, 14 WBC, few bacteria. Urine culture pending Given 1 g of ertapenem in the ED Will receive 1 g of ertapenem today prior to discharge -Continue Ertapenem 1g daily while admitted -Urine culture pending -IVF -Case management consult Patient has different name on health insurance card and this interfered with her insurance company covering cost for IV antibiotics at home. CM was able to fix insurance issue and pt will be set up to receive IV ertapenem with home health upon discharged. (2) Orthostatic hypotension ICD Codes: I95.1 - Orthostatic hypotension Status: Chronic Plan: Continue midodrine 5mg PO TID, fludrocortisone 0.1mg PO daily Continue 1gm NaCl tab daily (3) DM (diabetes mellitus) ICD Codes: E11.9 - Type 2 diabetes mellitus without complications Status: Chronic Plan: Hold home Levemir 5 units BID Low dose sliding scale while inpatient Monitor accuchecks (4) Gastroparesis ICD Codes: K31.84 - Gastroparesis Status: Chronic Plan: Continue Erythromycin (5) FEN Status: Acute Plan: Fluids: NS @ 100mls/hr Electrolytes: monitor, replace PRN Nutrition: Diabetic diet w/ glucerna DVT ppx: Heparin BID (Olga Curry MD, R1) Olga Curry MD, R1 March 09, 2018 14:36 Keyana Holloway MD March 10, 2018 09:55
--- NOTE | 2018-03-09 14:45 | HHI.FF ---
Face to Face Verification Diagnosis: (1) Urinary tract infection (2) Orthostatic hypotension Physical Therapy Order: Evaluate and Treat Home Health Nursing Order: Medical education Signs/symptoms of disease process Diabetic education Nursing assessment with vital signs IV medication administration Hosiery Knitter Order: To Evaluate: Support services I have seen patient Jaqueline Arechiga on 03/09/18. My clinical findings support the need for the requested home health care services because: Ltd mobility - disease progression Deconditioned w/ increased weakness Need for psychosocial assistance High risk of falls Injectable med education/admin I certify that my clinical findings support that this patient is homebound because: Unsteady gait/balance Need for psychosocial assistance Olga Curry MD, R1 March 09, 2018 14:45
[2018-03-09 16:20] VITALS: BP 122/62; PULSE 68; RESP 18; TEMP 98.2; O2SAT 96
[2018-03-09] MEDS ORDERED: ERTAPENEM SODIUM 1000 MG VIAL IM SCH (18:00)
[2018-03-09] MEDS ORDERED: ERTAPENEM 1,000 MG/NS 100 ML IV ONE ×2 (18:00)
== END 2018-03-09 19:14 | disposition home or self-care (01) ==
LOC: NEPE 16:10 → NEDA 18:53 → NEPHCDU 19:43
PROVIDERS: ADMIT Family Medicine; ATTEND Family Medicine
DX: N39.0 Urinary tract infection, site not specified (principal); B96.20 Unspecified Escherichia coli [E. coli] as the cause of diseases classified elsewhere; Z16.12 Extended spectrum beta lactamase (ESBL) resistance; E86.0 Dehydration; I95.1 Orthostatic hypotension; K31.84 Gastroparesis; E11.42 Type 2 diabetes mellitus with diabetic polyneuropathy; I48.91 Unspecified atrial fibrillation; I10 Essential (primary) hypertension; I95.9 Hypotension, unspecified; G90.1 Familial dysautonomia [Riley-Day]; R51 Headache; B19.20 Unspecified viral hepatitis C without hepatic coma; K86.1 Other chronic pancreatitis; J45.909 Unspecified asthma, uncomplicated; Z79.4 Long term (current) use of insulin; Z87.440 Personal history of urinary (tract) infections; Z86.73 Personal history of transient ischemic attack (TIA), and cerebral infarction without residual deficits; Z95.0 Presence of cardiac pacemaker; Z85.818 Personal history of malignant neoplasm of other sites of lip, oral cavity, and pharynx
CPT/HCPCS: 71045; 80048; 80053; 81001; 82948; 83605; 83690; 85025; 87040; 87077; 87086; 87186; 96361; 96365; 96366; 96372; 99285; G0378; J1335; J1644; J7030

== ENCOUNTER 2018-03-19 15:07 | Emergency (ER) | payer SELFPAY ==
[~2018-03-19 15:07] MED LIST changes: -MISCMIS81; -WALKER GLIDE WH1 MI1
[2018-03-19 15:40] VITALS: BP 112/71; PULSE 78; RESP 18; TEMP 99; O2SAT 99
--- NOTE | 2018-03-19 15:47 | PD ---
HPI Chief Complaint: Skin Problem Time Seen by Provider: 15:50 Travel History International Travel<30 days: No Contact w/Intl Traveler<30days: No Traveled to known affect area: No History of Present Illness HPI 52-year-old female with history of multiple medical problems and recent UTI requiring IV antibiotic, presents to the emergency department with itchy erythematous rash to the anterior abdomen for the past "several days" she denies significant pain, fever, chills, or other symptoms. Patient denies any recent changes in lotions, soaps, or other foods. No recent changes in her medications. She is insulin-dependent diabetic without changes in her sugars. Patient has no other complaints. Patient has a pacemaker so she has an MRI precaution. She is allergic to Metformin, morphine, oxycodone, prochlorperazine , and tramadol. PFSH Past Medical History Hx Anticoagulant Therapy: No Arthritis: No Asthma: Yes Atrial Fibrillation: Yes Autoimmune Disease: No Blood Disorders: No Anxiety: No Depression: No Heart Rhythm Problems: Yes (Pacemaker) Cancer: Yes (throat (in remission)) Cardiovascular Problems: Yes High Cholesterol: No Chemotherapy: Yes Chest Pain: No Congestive Heart Failure: No COPD: No Cerebrovascular Accident: Yes Diabetes: Yes Diminished Hearing: No Endocrine: Yes Gastrointestinal Disorders: Yes (esophagitis, gastritis, Hep C) GERD: No Glaucoma: No Genitourinary: Yes Headaches: Yes Hepatitis: Yes (HEP C) Hiatal Hernia: No Heparin Induced Thrombocytopen: No Hypertension: Yes Immune Disorder: No Implanted Vascular Access Dvce: Yes (PORT R CHEST) Kidney Stones: Yes Musculoskeletal: Yes Neurologic: Yes (diabetic peripheral neuropathy) Psychiatric: No Reproductive: No Respiratory: Yes Immunizations Current: Yes Migraines: No Myocardial Infarction: No Pancreatitis: Yes Radiation Therapy: Yes Renal Failure: No Seizures: No Sickle Cell Disease: No Sleep Apnea: No Thyroid Disease: No Triglycerides - High: Yes Ulcer: No PNEUMOCCOCAL Vaccine (Year): 2 Menopausal: Yes : 3 Para: 2 Miscarriage: 1 : 0 Ectopic : No Ovarian Cysts: No Tubal Ligation: No Past Surgical History Abdominal Surgery: Yes (appendectomy, cholecystectomy) AICD: No Appendectomy: Yes Arteriovenous Shunt: No Body Medical Devices: pacemaker Cardiac Surgery: Yes (pacemaker) Section: Yes (x1) Cholecystectomy: Yes Coronary Stent: Yes (L femoral stent ) Ear Surgery: No Endocrine Surgery: No Eye Surgery: No Genitourinary Surgery: No Hysterectomy: No Insulin Pump: No Joint Replacement: No Neurologic Surgery: No Oral Surgery: Yes (tonsillectomy) Pacemaker: Yes Thoracic Surgery: No Tonsillectomy: Yes Other Surgery: Yes (port placed 2016, appendectomy, cholecystectomy, tonsillectomy) Social History Alcohol Use: No (DENIES) Tobacco Use: No (QUIT) Substance Use: No Allergies-Medications (Allergen,Severity, Reaction): Coded Allergies: tramadol (Verified Allergy, Intermediate, Rash, 03/19/18) MRI PRECAUTION (Verified Adverse Reaction, Severe, PACEMAKER IS NOT A BIOTRONIK OR MEDTRONIC 06/15/16 KMD, 03/19/18) PACEMAKER IS NOT A BIOTRONIK OR MEDTRONIC CONDITIONAL PACEMAKER. CALLED BOTH COMPANIES TO CONFIRM. metformin (Verified Adverse Reaction, Severe, DIARRHEA, 03/19/18) morphine (Verified Adverse Reaction, Severe, Dizziness, 03/19/18) oxycodone (Verified Adverse Reaction, Severe, Nausea/Vomiting, 03/19/18) prochlorperazine (Verified Adverse Reaction, Severe, ANXIETY, 03/19/18) ANXIETY Reported Meds & Prescriptions Reported Meds & Active Scripts Active Sodium Chloride 1 Gram Tab 1 Gm PO DAILY Midodrine 5 Mg Tab 5 Mg PO TID@0700,1500,1700 Fludrocortisone (Fludrocortisone Acetate) 0.1 Mg Tab 0.1 Mg PO DAILY Invanz Inj (Ertapenem) 1 Gm Addvial 1 Gm IV Q24H 10 Days ADMINISTER IN 100ML NS Epinephrine Inj 1 Mg/Ml (1 Ml) Inj 0.3 Mg SQ ONCE PRN Give with any signs of respiratory distress. Epinephrine Inj 1 Mg/Ml (1 Ml) Inj 0.3 Mg IV PUSH ONCE PRN Solu-Cortef Inj (Hydrocortisone Sodium Succinate) 250 Mg/2 Ml Inj 250 Mg IV PUSH ONCE PRN Give over 30-60 seconds. E.E.S. Liq (Erythromycin Ethylsuccinate) 200 Mg/5 Ml Susp 200 Mg PO TIDAC Gabapentin 400 Mg Cap 400 Mg PO TID Reported Levemir Inj (Insulin Detemir) 1,000 unit/ 10 ML Vial 5 Units SQ BID Do not mix with any other Insulin. Review of Systems Except as stated in HPI: all other systems reviewed are Neg General / Constitutional: No: Fever Eyes: No: Visual changes HENT: No: Headaches Cardiovascular: No: Chest Pain or Discomfort Respiratory: No: Shortness of Breath Gastrointestinal: No: Abdominal Pain Genitourinary: No: Dysuria Musculoskeletal: No: Pain Skin: Positive Rash, Positive Itching, Positive Dryness Neurologic: No: Weakness Psychiatric: No: Depression Endocrine: No: Polydipsia Hematologic/Lymphatic: No: Easy Bruising Physical Exam Narrative GENERAL: Patient appears in no acute distress. Patient is more concerned about discharging her phone that her medical issue. SKIN: Warm and dry. Normal color. Normal turgor. Patient has an excoriated erythematous rough somewhat warm area to the anterior abdomen, without obvious signs of insect bite, cellulitis, or abscess. HEAD: Atraumatic. Normocephalic. EYES: Pupils equal and round. No scleral icterus. No injection or drainage. ENT: No nasal bleeding or discharge. Mucous membranes pink and moist. Pharynx is clear. Airways patent NECK: Trachea midline. Supple and nontender CARDIOVASCULAR: Regular rate and rhythm. RESPIRATORY: No accessory muscle use. Clear to auscultation. Breath sounds equal bilaterally. GASTROINTESTINAL: Abdomen soft, non-tender, nondistended. Hepatic and splenic margins not palpable. MUSCULOSKELETAL: Extremities without clubbing, cyanosis, or edema. No obvious deformities. NEUROLOGICAL: Awake and alert. No obvious cranial nerve deficits. Motor grossly within normal limits. Five out of 5 muscle strength in the arms and legs. Normal speech. PSYCHIATRIC: Appropriate mood and affect; insight and judgment normal. Data Data Last Documented VS Vital Signs Date Time Temp Pulse Resp B/P (MAP) Pulse Ox O2 Delivery O2 Flow Rate FiO2 03/19/18 15:40 99.0 78 18 112/71 (85) 99 Orders Orders Betamethasone-Clotrimazo Cream (Lotrison (03/19/18 16:00) Diphenhydramine (Benadryl) (03/19/18 16:00) Prednisone (Deltasone) (03/19/18 16:00) MDM Medical Decision Making Medical Screen Exam Complete: Yes Emergency Medical Condition: Yes Medical Record Reviewed: Yes Differential Diagnosis Dermatitis. Dermatophytosis. Pruritus. Narrative Course Patient is started on Lotrisone ointment. Patient is given 1 dose of Benadryl 25 mg p.o. now Patient is given 20 mg prednisone p.o. now. Patient to continue on Lotrisone to the area 2-3 times daily for the next 2 weeks. Patient to follow-up with her primary care physician or return to the emergency department if symptoms worsen. Diagnosis Primary Impression: Pruritic dermatitis Referrals: [facility] Patient Instructions: Betamethasone/Clotrimazole (On the skin), General Instructions Additional Instructions: Patient is started on Lotrisone ointment. Patient is given 1 dose of Benadryl 25 mg p.o. now Patient is given 20 mg prednisone p.o. now. Patient to continue on Lotrisone to the area 2-3 times daily for the next 2 weeks. Patient to follow-up with her primary care physician or return to the emergency department if symptoms worsen. Med/Other Pt SpecificInfo: Prescription(s) given Disposition: 01 DISCHARGE HOME Condition: Stable Mario Rizvi March 19, 2018 15:47
[2018-03-19] MEDS ORDERED: BETAMETHASONE/CLOTRIMAZOLE CREAM 15 GM TOPICAL ONE (16:00)
[2018-03-19] MEDS ORDERED: diphenhydrAMINE HCL 25 MG CAP PO ONE (16:00)
[2018-03-19] MEDS ORDERED: predniSONE 20 MG TAB PO ONE (16:00)
[2018-03-19] MEDS ORDERED: LOTR15T TOPICAL (16:02)
== END 2018-03-19 16:37 | disposition home or self-care (01) ==
LOC: NEPK 15:07
DX: L30.8 Other specified dermatitis (principal); E11.9 Type 2 diabetes mellitus without complications; Z79.4 Long term (current) use of insulin
CPT/HCPCS: 99283; J7512

== ENCOUNTER 2018-03-21 18:17 | Emergency (ER) | payer OTHER ==
[~2018-03-21] VITALS: Ht 172.7 cm; Wt 63.6 kg
[~2018-03-21 18:17] MED LIST changes: +LOTR15T TOPICAL
[2018-03-21 18:37] VITALS: BP 184/81; PULSE 77; RESP 16; TEMP 99.1; O2SAT 100
--- NOTE | 2018-03-21 19:24 | PD ---
HPI Chief Complaint: Abnormal Results Time Seen by Provider: 19:09 Travel History International Travel<30 days: No Contact w/Intl Traveler<30days: No Traveled to known affect area: No History of Present Illness HPI Patient is a 52-year-old female presenting to the emergency department for evaluation of abnormal urine culture. Patient was sent by her primary doctor, she states that she was told today that her urine had "bad bacteria" it and she needed to come to emergency department for IV antibiotics. She was on IV antibiotics at home until last week for previous UTI diagnosed at the beginning of March. She reports urinary frequency and suprapubic pressure. She denies any fevers, chills, nausea, vomiting, back pain, chest pain, shortness of breath. Patient reports that she is feeling well otherwise. Symptom onset is unknown, symptoms are mild in nature. She reports her pain is a 2 out of 10 and pressure -like. PFSH Past Medical History Asthma: Yes Atrial Fibrillation: Yes Cancer: Yes (throat (in remission)) Chemotherapy: Yes Cerebrovascular Accident: Yes Diabetes: Yes Gastrointestinal Disorders: Yes (esophagitis, gastritis, Hep C) Genitourinary: Yes Headaches: Yes Hepatitis: Yes (HEP C) Hypertension: Yes Implanted Vascular Access Dvce: Yes (PORT R CHEST) Kidney Stones: Yes Musculoskeletal: Yes Neurologic: Yes (diabetic peripheral neuropathy) Immunizations Current: Yes Pancreatitis: Yes Radiation Therapy: Yes Triglycerides - High: Yes PNEUMOCCOCAL Vaccine (Year): 2 Menopausal: Yes : 3 Para: 2 Miscarriage: 1 : 0 Past Surgical History Appendectomy: Yes Section: Yes (x1) Cholecystectomy: Yes Coronary Stent: Yes (L femoral stent ) Pacemaker: Yes Tonsillectomy: Yes Social History Alcohol Use: No (DENIES) Tobacco Use: No (QUIT) Substance Use: No Allergies-Medications (Allergen,Severity, Reaction): Coded Allergies: tramadol (Verified Allergy, Intermediate, Rash, 03/21/18) MRI PRECAUTION (Verified Adverse Reaction, Severe, PACEMAKER IS NOT A BIOTRONIK OR MEDTRONIC 06/15/16 KMD, 03/21/18) PACEMAKER IS NOT A BIOTRONIK OR MEDTRONIC CONDITIONAL PACEMAKER. CALLED BOTH COMPANIES TO CONFIRM. metformin (Verified Adverse Reaction, Severe, DIARRHEA, 03/21/18) morphine (Verified Adverse Reaction, Severe, Dizziness, 03/21/18) oxycodone (Verified Adverse Reaction, Severe, Nausea/Vomiting, 03/21/18) prochlorperazine (Verified Adverse Reaction, Severe, ANXIETY, 03/21/18) ANXIETY Reported Meds & Prescriptions Reported Meds & Active Scripts Active Lotrisone Topical (Betamethasone/Clotrimazole) 1-0.05% Cream 1 Applic TOPICAL BID Sodium Chloride 1 Gram Tab 1 Gm PO DAILY Midodrine 5 Mg Tab 5 Mg PO TID@0700,1500,1700 Fludrocortisone (Fludrocortisone Acetate) 0.1 Mg Tab 0.1 Mg PO DAILY Gabapentin 400 Mg Cap 400 Mg PO TID Reported Levemir Inj (Insulin Detemir) 1,000 unit/ 10 ML Vial 5 Units SQ BID Do not mix with any other Insulin. Review of Systems Except as stated in HPI: all other systems reviewed are Neg General / Constitutional: No: Fever, Chills HENT: No: Headaches Cardiovascular: No: Chest Pain or Discomfort Respiratory: No: Shortness of Breath Gastrointestinal: No: Nausea, Vomiting, Abdominal Pain Genitourinary: Positive: Frequency, Pelvic Pain (Suprapubic pressure) Physical Exam Narrative GENERAL: Well-developed, well-nourished, well-appearing female. Appears older than stated age, presenting in no acute distress. SKIN: Warm and dry. HEAD: Atraumatic. Normocephalic. EYES: Pupils equal and round. No scleral icterus. No injection or drainage. ENT: No nasal bleeding or discharge. Mucous membranes pink and moist. NECK: Trachea midline. No JVD. CARDIOVASCULAR: Regular rate and rhythm. RESPIRATORY: No accessory muscle use. Clear to auscultation. Breath sounds equal bilaterally. GASTROINTESTINAL: Abdomen soft, mild tenderness to palpation suprapubic region, no rebound, no guarding, nondistended. Hepatic and splenic margins not palpable. Positive bowel sounds. MUSCULOSKELETAL: Extremities without clubbing, cyanosis, or edema. No obvious deformities. NEUROLOGICAL: Awake and alert. No obvious cranial nerve deficits. Motor grossly within normal limits. Five out of 5 muscle strength in the arms and legs. Normal speech. PSYCHIATRIC: Appropriate mood and affect; insight and judgment normal. Data Data Last Documented VS Vital Signs Date Time Temp Pulse Resp B/P (MAP) Pulse Ox O2 Delivery O2 Flow Rate FiO2 03/21/18 21:03 18 97 Room Air 03/21/18 18:37 99.1 77 184/81 (115) Orders Orders Complete Blood Count With Diff (03/21/18 19:17) Comprehensive Metabolic Panel (03/21/18 19:17) Urinalysis - C+S If Indicated (03/21/18 19:17) Iv Access Insert/Monitor (03/21/18 19:17) Ecg Monitoring (03/21/18 19:17) Oximetry (03/21/18 19:17) Sodium Chloride 0.9% Flush (Ns Flush) (03/21/18 19:30) Urine Culture (03/21/18 21:07) Labs Laboratory Tests Test 03/21/18 20:25 White Blood Count 2.8 TH/MM3 Red Blood Count 3.57 MIL/MM3 Hemoglobin 10.0 GM/DL Hematocrit 30.1 % Mean Corpuscular Volume 84.2 FL Mean Corpuscular Hemoglobin 28.0 PG Mean Corpuscular Hemoglobin Concent 33.2 % Red Cell Distribution Width 15.3 % Platelet Count 232 TH/MM3 Mean Platelet Volume 7.7 FL Neutrophils (%) (Auto) 30.9 % Lymphocytes (%) (Auto) 52.0 % Monocytes (%) (Auto) 12.0 % Eosinophils (%) (Auto) 3.9 % Basophils (%) (Auto) 1.2 % Neutrophils # (Auto) 0.9 TH/MM3 Lymphocytes # (Auto) 1.4 TH/MM3 Monocytes # (Auto) 0.3 TH/MM3 Eosinophils # (Auto) 0.1 TH/MM3 Basophils # (Auto) 0.0 TH/MM3 CBC Comment AUTO DIFF Urine Color YELLOW Urine Turbidity HAZY Urine pH 6.0 Urine Specific [place] 1.012 Urine Protein NEG mg/dL Urine Glucose (UA) NEG mg/dL Urine Ketones NEG mg/dL Urine Occult Blood NEG Urine Nitrite NEG Urine Bilirubin NEG Urine Urobilinogen LESS THAN 2.0 MG/DL Urine Leukocyte Esterase MOD Urine WBC 5 /hpf Urine Squamous Epithelial Cells 11 /hpf Urine Hyaline Casts 5 /lpf Microscopic Urinalysis Comment CULT NOT INDICATED Blood Urea Nitrogen 9 MG/DL Creatinine 0.90 MG/DL Random Glucose 135 MG/DL Total Protein 7.1 GM/DL Albumin 3.3 GM/DL Calcium Level 9.4 MG/DL Alkaline Phosphatase 78 U/L Aspartate Amino Transf (AST/SGOT) 17 U/L Alanine Aminotransferase (ALT/SGPT) 13 U/L Total Bilirubin 0.3 MG/DL Sodium Level 143 MEQ/L Potassium Level 3.4 MEQ/L Chloride Level 104 MEQ/L Carbon Dioxide Level 28.2 MEQ/L Anion Gap 11 MEQ/L Estimat Glomerular Filtration Rate 66 ML/MIN MDM Medical Decision Making Medical Screen Exam Complete: Yes Emergency Medical Condition: Yes Medical Record Reviewed: Yes Interpretation(s) Vital Signs Date Time Temp Pulse Resp B/P (MAP) Pulse Ox O2 Delivery O2 Flow Rate FiO2 03/21/18 18:37 99.1 77 16 184/81 (115) 100 Differential Diagnosis UTI versus metabolic abnormality versus pyelonephritis versus other Narrative Course Patient is a 52-year-old female presenting on the advice of her primary doctor due to an abnormal urine culture obtained as outpatient. Patient's vital signs are stable, she is otherwise well-appearing. She is afebrile. Labs ordered and pending. CBC with a white count of 2.8, this is improved from prior value. Hemoglobin and hematocrit are also improved from prior values. Chemistry with potassium of 3.4 otherwise unremarkable. Urinalysis with moderate leukocyte esterase otherwise unremarkable. Reflex culture was not indicated however one was ordered due to patient stating her primary doctor had an abnormal one. Will defer treatment at this time until culture results. Patient is encouraged to follow-up with her primary doctor. She is advised that she will be notified of urine culture results when they are available. She is encouraged to return to emergency department for any new or worsening symptoms. She was reassured at this time that there were no acute findings. Patient stable for discharge. Plan of care was discussed with my attending physician. Diagnosis Primary Impression: Leukopenia Qualified Codes: D72.819 - Decreased white blood cell count, unspecified Referrals: Primary Care Physician 2 days Patient Instructions: General Instructions Additional Instructions: Follow-up with your primary doctor in 1-2 days Return to emergency department for any new or worsening symptoms A urine culture is pending, you will be notified if it is abnormal and there is a need to start antibiotic therapy. Med/Other Pt SpecificInfo: No Change to Meds Disposition: 01 DISCHARGE HOME Condition: Stable Rochelle Wang March 21, 2018 19:24
[2018-03-21] MEDS ORDERED: SODIUM CHLORIDE 0.9% FLUSH 10 ML FLUSH IV FLUSH PRN (19:30)
[2018-03-21 20:47] LABS: AUTOMATED NEUTROPHIL # 0.9 TH/MM3 (1.8-7.7); BASOPHIL % 1.2 % (0.0-2.0); EOSINOPHIL # 0.1 TH/MM3 (0-0.4); EOSINOPHIL % 3.9 % (0.0-4.0); HEMATOCRIT 30.1 % (35.0-46.0); LYMPHOCYTE # 1.4 TH/MM3 (1.0-4.8); MEAN CELL VOLUME 84.2 FL (80.0-100.0); MEAN CORPUSCULAR HGB CONC 33.2 % (32.0-36.0); MEAN PLATELET VOLUME 7.7 FL (7.0-11.0); MONOCYTE # 0.3 TH/MM3 (0-0.9); NEUT % 30.9 % (16.0-70.0); PLATELET COUNT 232 TH/MM3 (150-450); RED BLOOD COUNT 3.57 MIL/MM3 (4.00-5.30); RED CELL DISTRIBUTION WIDTH 15.3 % (11.6-17.2); WHITE BLOOD COUNT 2.8 TH/MM3 (4.0-11.0)
[2018-03-21 20:58] LABS: BILIRUBIN, URINE NEG (NEG); BLOOD, URINE NEG (NEG); GLUCOSE,URINE NEG (NEG); HYALINE CAST, URINE 5 /lpf (RARE); KETONE, URINE NEG (NEG); NITRITE,URINE NEG (NEG); SQUAMOUS EPITHELIAL CELL URINE 11 /hpf (0-5); URINE COLOR YELLOW (YELLW/STRAW); URINE LEUKOCYTE ESTERASE MOD (NEG)
[2018-03-21 21:03] VITALS: RESP 18; O2SAT 97
[2018-03-21 21:10] LABS: ALBUMIN 3.3 GM/DL (3.4-5.0); ALT (GPT) 13 U/L (10-53); AST (GOT) 17 U/L (15-37); BICARBONATE 28.2 MEQ/L (21.0-32.0); BLOOD UREA NITROGEN 9 MG/DL (7-18); CALCIUM 9.4 MG/DL (8.5-10.1); CHLORIDE 104 MEQ/L (98-107); GLOMERULAR FILTRATION RATE 66 ML/MIN (>89); GLUCOSE,RANDOM 135 MG/DL (74-106); SODIUM (NA) 143 MEQ/L (136-145)
[2018-03-21 21:11] LABS: ALKALINE PHOSPHATASE 78 U/L (45-117); TOTAL BILIRUBIN ADULT 0.3 MG/DL (0.2-1.0); TOTAL PROTEIN 7.1 GM/DL (6.4-8.2)
[2018-03-21 22:18] LABS: BASOPHILS 1 % (0-2); LYMPHOCYTES 49 % (9-44); MONOCYTES 10 % (0-8); POLYS (SEG NEUTROPHILS) 37 % (16-70)
== END 2018-03-21 22:10 | disposition home or self-care (01) ==
LOC: NEPD 18:17
DX: D72.819 Decreased white blood cell count, unspecified (principal); R82.99 Other abnormal findings in urine; E11.9 Type 2 diabetes mellitus without complications; I10 Essential (primary) hypertension; E78.1 Pure hyperglyceridemia; Z79.4 Long term (current) use of insulin; Z87.09 Personal history of other diseases of the respiratory system; Z86.79 Personal history of other diseases of the circulatory system; Z86.73 Personal history of transient ischemic attack (TIA), and cerebral infarction without residual deficits; Z87.19 Personal history of other diseases of the digestive system; Z87.448 Personal history of other diseases of urinary system; Z87.39 Personal history of other diseases of the musculoskeletal system and connective tissue; Z86.69 Personal history of other diseases of the nervous system and sense organs
CPT/HCPCS: 80053; 81001; 85007; 85027; 87077; 87086; 87186; 99283

== ENCOUNTER 2018-03-22 12:10 | Emergency (ER) | payer OTHER ==
[~2018-03-22] VITALS: Ht 172.7 cm; Wt 68.0 kg
[~2018-03-22 12:10] MED LIST changes: -EPIN1INJ21 IV PUSH; -EPIN1INJ21 SQ; -ERYT200S2 PO; -INVA1INJ IV; -SOLU250I IV PUSH
[2018-03-22 12:23] VITALS: BP 88/52; PULSE 76; RESP 19; TEMP 98.7; O2SAT 98
[2018-03-22] MEDS ORDERED: SODIUM CHLOR 0.9% 1000 ML INJ 1,000 ML IV ONE ×2 (12:25→13:45)
--- NOTE | 2018-03-22 12:26 | PD ---
HPI Chief Complaint: near syncope Time Seen by Provider: 12:16 Travel History International Travel<30 days: No Contact w/Intl Traveler<30days: No Traveled to known affect area: No History of Present Illness HPI 52-year-old female with cardiac disease, remote CVA, throat cancer, presents emergency department for evaluation of a near syncopal episode. Patient states when she stood up she felt lightheaded. She had to sit back in her chair. She states this does happen often. She does have history of hypotension. She takes midodrine. She states that she took her medications this morning. Patient denies any recent illnesses, fever, or chills. She denies any chest pain or tightness. No difficulty breathing. Patient was just evaluated in the emergency department at the end of February for a near syncopal episode. She was admitted observation at that time with a negative workup. Patient has no further medical needs at this time. PFSH Past Medical History Asthma: Yes Atrial Fibrillation: Yes Cancer: Yes (throat (in remission)) Chemotherapy: Yes Cerebrovascular Accident: Yes Diabetes: Yes Gastrointestinal Disorders: Yes (esophagitis, gastritis, Hep C) Genitourinary: Yes Headaches: Yes Hepatitis: Yes (HEP C) Hypertension: Yes Implanted Vascular Access Dvce: Yes (PORT R CHEST) Kidney Stones: Yes Musculoskeletal: Yes Neurologic: Yes (diabetic peripheral neuropathy) Immunizations Current: Yes Pancreatitis: Yes Radiation Therapy: Yes Triglycerides - High: Yes PNEUMOCCOCAL Vaccine (Year): 2 Menopausal: Yes : 3 Para: 2 Miscarriage: 1 : 0 Past Surgical History Appendectomy: Yes Section: Yes (x1) Cholecystectomy: Yes Coronary Stent: Yes (L femoral stent ) Pacemaker: Yes Tonsillectomy: Yes Social History Alcohol Use: No (DENIES) Tobacco Use: No (QUIT) Substance Use: No Allergies-Medications (Allergen,Severity, Reaction): Coded Allergies: MRI PRECAUTION (Verified Adverse Reaction, Severe, PACEMAKER IS NOT A BIOTRONIK OR MEDTRONIC 06/15/16 KMD, 03/22/18) PACEMAKER IS NOT A BIOTRONIK OR MEDTRONIC CONDITIONAL PACEMAKER. CALLED BOTH COMPANIES TO CONFIRM. metformin (Verified Adverse Reaction, Severe, DIARRHEA, 03/22/18) morphine (Verified Adverse Reaction, Severe, Dizziness, 03/22/18) oxycodone (Verified Adverse Reaction, Severe, Nausea/Vomiting, 03/22/18) prochlorperazine (Verified Adverse Reaction, Severe, ANXIETY, 03/22/18) ANXIETY Reported Meds & Prescriptions Reported Meds & Active Scripts Active Lotrisone Topical (Betamethasone/Clotrimazole) 1-0.05% Cream 1 Applic TOPICAL BID Sodium Chloride 1 Gram Tab 1 Gm PO DAILY Midodrine 5 Mg Tab 5 Mg PO TID@0700,1500,1700 Fludrocortisone (Fludrocortisone Acetate) 0.1 Mg Tab 0.1 Mg PO DAILY Gabapentin 400 Mg Cap 400 Mg PO TID Reported Levemir Inj (Insulin Detemir) 1,000 unit/ 10 ML Vial 5 Units SQ BID Do not mix with any other Insulin. Review of Systems Except as stated in HPI: all other systems reviewed are Neg Physical Exam Narrative GENERAL: Well-nourished female patient, sitting up in the bed, no acute distress. Patient is able to transfer from her wheelchair to the bed and back. She is pushing herself around the emergency department without difficulty. SKIN: Focused skin assessment warm/dry. HEAD: Atraumatic. Normocephalic. EYES: Pupils equal and round. No scleral icterus. No injection or drainage. ENT: No nasal bleeding or discharge. Mucous membranes pink and moist. NECK: Trachea midline. No JVD. CARDIOVASCULAR: Regular rate and rhythm. No murmur appreciated. RESPIRATORY: No accessory muscle use. Clear to auscultation. Breath sounds equal bilaterally. GASTROINTESTINAL: Abdomen soft, non-tender, nondistended. Hepatic and splenic margins not palpable. MUSCULOSKELETAL: No obvious deformities. No clubbing. No cyanosis. No edema. NEUROLOGICAL: Awake and alert. No obvious cranial nerve deficits. Motor grossly within normal limits. Normal speech. PSYCHIATRIC: Appropriate mood and affect; insight and judgment normal. Data Data Last Documented VS Vital Signs Date Time Temp Pulse Resp B/P (MAP) Pulse Ox O2 Delivery O2 Flow Rate FiO2 03/22/18 15:31 03/22/18 14:13 72 18 60 18 79 18 03/22/18 12:31 98.7 98 Room Air Orders Orders Basic Metabolic Panel (Bmp) (03/22/18 12:25) Complete Blood Count With Diff (03/22/18 12:25) Urinalysis - C+S If Indicated (03/22/18 12:25) Chest, Single Ap (03/22/18 12:25) Ecg Monitoring (03/22/18 12:25) Iv Access Insert/Monitor (03/22/18 12:25) Oximetry (03/22/18 12:25) Sodium Chloride 0.9% Flush (Ns Flush) (03/22/18 12:30) Sodium Chlor 0.9% 1000 Ml Inj (Ns 1000 M (03/22/18 12:25) Electrocardiogram (03/22/18 ) Orthostatic Vital Signs (03/22/18 13:32) Sodium Chlor 0.9% 1000 Ml Inj (Ns 1000 M (03/22/18 13:45) Cath For Specimen (03/22/18 14:20) Ed Discharge Order (03/22/18 15:13) Labs Laboratory Tests Test 03/22/18 12:38 03/22/18 13:54 White Blood Count 2.2 TH/MM3 Red Blood Count 3.24 MIL/MM3 Hemoglobin 9.2 GM/DL Hematocrit 27.4 % Mean Corpuscular Volume 84.5 FL Mean Corpuscular Hemoglobin 28.3 PG Mean Corpuscular Hemoglobin Concent 33.6 % Red Cell Distribution Width 15.1 % Platelet Count 239 TH/MM3 Mean Platelet Volume 7.5 FL Neutrophils (%) (Auto) 37.3 % Lymphocytes (%) (Auto) 47.2 % Monocytes (%) (Auto) 11.3 % Eosinophils (%) (Auto) 3.7 % Basophils (%) (Auto) 0.5 % Neutrophils # (Auto) 0.8 TH/MM3 Lymphocytes # (Auto) 1.0 TH/MM3 Monocytes # (Auto) 0.2 TH/MM3 Eosinophils # (Auto) 0.1 TH/MM3 Basophils # (Auto) 0.0 TH/MM3 CBC Comment AUTO DIFF Differential Total Cells Counted 100 Neutrophils % (Manual) 45 % Band Neutrophils % 1 % Lymphocytes % 37 % Monocytes % 12 % Eosinophils % 4 % Basophils % 1 % Neutrophils # (Manual) 1.0 TH/MM3 Differential Comment FINAL DIFF MANUAL Platelet Estimate NORMAL Platelet Morphology Comment NORMAL Blood Urea Nitrogen 8 MG/DL Creatinine 0.95 MG/DL Random Glucose 118 MG/DL Calcium Level 8.7 MG/DL Sodium Level 144 MEQ/L Potassium Level 3.4 MEQ/L Chloride Level 108 MEQ/L Carbon Dioxide Level 29.6 MEQ/L Anion Gap 6 MEQ/L Estimat Glomerular Filtration Rate 62 ML/MIN Urine Color YELLOW Urine Turbidity HAZY Urine pH 7.0 Urine Specific [place] 1.008 Urine Protein NEG mg/dL Urine Glucose (UA) NEG mg/dL Urine Ketones NEG mg/dL Urine Occult Blood NEG Urine Nitrite NEG Urine Bilirubin NEG Urine Urobilinogen LESS THAN 2.0 MG/DL Urine Leukocyte Esterase SMALL Urine RBC LESS THAN 1 /hpf Urine WBC 1 /hpf Urine Squamous Epithelial Cells 8 /hpf Urine Bacteria OCC /hpf Microscopic Urinalysis Comment CULT NOT INDICATED MDM Medical Decision Making Medical Screen Exam Complete: Yes Emergency Medical Condition: Yes Medical Record Reviewed: Yes Differential Diagnosis Hypertension versus syncope versus near syncope versus electrolyte abnormality versus UTI Narrative Course 52-year-old female presents emergency department for evaluation of a sensation of lightheadedness when she stood up. Patient has historically hypotension. She appears well. She has no focal deficits weakness. She recently was hospitalized observation status for syncopal workup that was negative. Orthostatic vital signs are stable. After 2 L normal saline fluid, patient verbalizes feeling much better. She is ready to be discharged. She agrees to return immediately with acute worsening symptoms. Diagnosis Primary Impression: Hypotension Qualified Codes: I95.9 - Hypotension, unspecified Additional Impression: Near syncope Referrals: Primary Care Physician Patient Instructions: General Instructions, Hypotension (ED) Additional Instructions: Maintain adequate oral hydration Follow up with your primary care provider Return to the ED with acute worsening of symptoms Med/Other Pt SpecificInfo: No Change to Meds Disposition: 01 DISCHARGE HOME Condition: Stable CoreyJaye LOZOYA March 22, 2018 12:26
[2018-03-22 12:29] VITALS: BP 88/52; PULSE 77; RESP 19; TEMP 98.7; O2SAT 98
[2018-03-22] MEDS ORDERED: SODIUM CHLORIDE 0.9% FLUSH 10 ML FLUSH IVF PRN (12:30)
[2018-03-22 12:31] VITALS: BP 88/52; PULSE 77; RESP 19; TEMP 98.7; O2SAT 98
[2018-03-22 12:49] LABS: AUTOMATED NEUTROPHIL # 0.8 TH/MM3 (1.8-7.7); BASOPHIL % 0.5 % (0.0-2.0); EOSINOPHIL # 0.1 TH/MM3 (0-0.4); EOSINOPHIL % 3.7 % (0.0-4.0); HEMATOCRIT 27.4 % (35.0-46.0); HEMOGLOBIN 9.2 GM/DL (11.6-15.3); LYMPH % 47.2 % (9.0-44.0); MEAN CELL VOLUME 84.5 FL (80.0-100.0); MEAN CORPUSCULAR HEMOGLOBIN 28.3 PG (27.0-34.0); MEAN CORPUSCULAR HGB CONC 33.6 % (32.0-36.0); MEAN PLATELET VOLUME 7.5 FL (7.0-11.0); MONO % 11.3 % (0.0-8.0); MONOCYTE # 0.2 TH/MM3 (0-0.9); NEUT % 37.3 % (16.0-70.0); PLATELET COUNT 239 TH/MM3 (150-450); RED BLOOD COUNT 3.24 MIL/MM3 (4.00-5.30); RED CELL DISTRIBUTION WIDTH 15.1 % (11.6-17.2); WHITE BLOOD COUNT 2.2 TH/MM3 (4.0-11.0)
[2018-03-22 13:13] LABS: BICARBONATE 29.6 MEQ/L (21.0-32.0); CALCIUM 8.7 MG/DL (8.5-10.1); CREATININE 0.95 MG/DL (0.50-1.00)
[2018-03-22 13:25] LABS: BANDS 1 % (0-6); BASOPHILS 1 % (0-2); LYMPHOCYTES 37 % (9-44); MONOCYTES 12 % (0-8); POLYS (SEG NEUTROPHILS) 45 % (16-70)
--- NOTE | 2018-03-22 13:29 | RADRPT ---
EXAM DATE/TIME: 03/22/2018 13:05 [place] COMPARISON: CHEST SINGLE AP, March 08, 2018, 16:46. INDICATIONS : Heart Palpitations MEDICAL HISTORY : None. SURGICAL HISTORY : Pacemaker. ENCOUNTER: Initial ACUITY: 1 day PAIN SCORE: 0/10 LOCATION: chest FINDINGS: A single view of the chest demonstrates the lungs to be symmetrically aerated without evidence of mas s, infiltrate or effusion. The cardiomediastinal contours are unremarkable. Pacemaker overlying the left chest. Right sided central line. No evidence of pneumothorax. Osseous structures are intact. No significant changes. CONCLUSION: No acute disease. No significant change has occurred. Rivera Caldwell MD on March 22, 2018 at 13:27 Board Certified Radiologist. This report was verified electronically.
[2018-03-22 14:13] VITALS: BP_SYST 160; BP_SYST 172; BP_SYST 184; BP_DIAS 84; BP_DIAS 92; BP_DIAS 99; RESP 18
[2018-03-22 14:44] LABS: BACTERIA, URINE OCC /hpf; BILIRUBIN, URINE NEG (NEG); BLOOD, URINE NEG (NEG); GLUCOSE,URINE NEG (NEG); KETONE, URINE NEG (NEG); NITRITE,URINE NEG (NEG); SQUAMOUS EPITHELIAL CELL URINE 8 /hpf (0-5); URINE COLOR YELLOW (YELLW/STRAW); URINE LEUKOCYTE ESTERASE SMALL (NEG)
--- NOTE | 2018-03-23 12:21 | EKG ---
Date Performed: 03/22/2018 Time Performed: 12:34:03 PTAGE: 52 years EKG: Sinus rhythm MARKED LEFT AXIS DEVIATION PATTERN CONSISTENT WITH PULMONARY DISEASE ABNORMAL ECG PREVIOUS TRACING : 03/02/2018 19.18 Since the previous tracing, no significant change noted DOCTOR: Blu Paz Interpretating Date/Time 03/23/2018 12:19:30
== END 2018-03-22 15:49 | disposition home or self-care (01) ==
LOC: NEPE 12:10
DX: I95.9 Hypotension, unspecified (principal); R55 Syncope and collapse; R94.31 Abnormal electrocardiogram [ECG] [EKG]; J45.909 Unspecified asthma, uncomplicated; I48.91 Unspecified atrial fibrillation; B19.20 Unspecified viral hepatitis C without hepatic coma; I10 Essential (primary) hypertension; E11.42 Type 2 diabetes mellitus with diabetic polyneuropathy; Z85.818 Personal history of malignant neoplasm of other sites of lip, oral cavity, and pharynx; Z87.891 Personal history of nicotine dependence; Z86.73 Personal history of transient ischemic attack (TIA), and cerebral infarction without residual deficits; Z79.4 Long term (current) use of insulin; Z95.828 Presence of other vascular implants and grafts
CPT/HCPCS: 71045; 80048; 81001; 85007; 85027; 93005; 99285; J7030

== ENCOUNTER 2018-03-27 10:06 | Emergency (ER) | payer OTHER ==
[~2018-03-27] VITALS: Ht 172.7 cm; Wt 70.0 kg
[2018-03-27 10:11] VITALS: BP 136/71; PULSE 83; RESP 17; TEMP 98.3; O2SAT 100
[2018-03-27] MEDS ORDERED: SODIUM CHLOR 0.9% 1000 ML INJ 1,000 ML IV SCH (10:34)
--- NOTE | 2018-03-27 10:41 | PD ---
HPI Chief Complaint: GI Complaint Time Seen by Provider: 10:23 Travel History International Travel<30 days: No Contact w/Intl Traveler<30days: No Traveled to known affect area: No History of Present Illness HPI 52-year-old female complains of diarrhea and abdominal pain. Patient states that she has intermittent diarrhea for the past several weeks. Patient states that she started having watery stool since last night. Patient states that she has intermittent abdominal cramping. Patient states that the pain is diffuse over the abdomen. Patient denies any pain radiation. Patient denies any blood or mucus in the stool. Patient denies any fever chills. Patient denies any back pain. Patient has history recurrent UTI, orthostatic hypotension, diabetes type 2, hepatitis C, history of oropharyngeal cancer in remission, status post CVA, dysautonomia including gastroparesis and orthostatic hypotension, status post pacemaker placement, asthma, osteoarthritis and peripheral neuropathy. Patient status post appendectomy, cholecystectomy, left femoral stent placement. PFSH Past Medical History Asthma: Yes Atrial Fibrillation: Yes Heart Rhythm Problems: Yes (Pacemaker) Cancer: Yes (throat (in remission)) Cardiovascular Problems: Yes Chemotherapy: Yes Cerebrovascular Accident: Yes Diabetes: Yes Endocrine: Yes Gastrointestinal Disorders: Yes (esophagitis, gastritis, Hep C) Genitourinary: Yes Headaches: Yes Hepatitis: Yes (HEP C) Hypertension: Yes Implanted Vascular Access Dvce: Yes (PORT R CHEST) Kidney Stones: Yes Musculoskeletal: Yes Neurologic: Yes (diabetic peripheral neuropathy) Respiratory: Yes Immunizations Current: Yes Pancreatitis: Yes Radiation Therapy: Yes Triglycerides - High: Yes PNEUMOCCOCAL Vaccine (Year): 2 Menopausal: Yes : 3 Para: 2 Miscarriage: 1 : 0 Past Surgical History Abdominal Surgery: Yes (appendectomy, cholecystectomy) Appendectomy: Yes Body Medical Devices: pacemaker Cardiac Surgery: Yes (pacemaker) Section: Yes (x1) Cholecystectomy: Yes Coronary Stent: Yes (L femoral stent ) Oral Surgery: Yes (tonsillectomy) Pacemaker: Yes Tonsillectomy: Yes Other Surgery: Yes (port placed 2016, appendectomy, cholecystectomy, tonsillectomy) Social History Alcohol Use: No (DENIES) Tobacco Use: No (QUIT) Substance Use: No Allergies-Medications (Allergen,Severity, Reaction): Coded Allergies: MRI PRECAUTION (Verified Adverse Reaction, Severe, PACEMAKER IS NOT A [place] AeroRONIK OR MEDTRONIC 06/15/16 KMD, 03/22/18) PACEMAKER IS NOT A BIOTRONIK OR MEDTRONIC CONDITIONAL PACEMAKER. CALLED BOTH COMPANIES TO CONFIRM. metformin (Verified Adverse Reaction, Severe, DIARRHEA, 03/22/18) morphine (Verified Adverse Reaction, Severe, Dizziness, 03/22/18) oxycodone (Verified Adverse Reaction, Severe, Nausea/Vomiting, 03/22/18) prochlorperazine (Verified Adverse Reaction, Severe, ANXIETY, 03/22/18) ANXIETY Reported Meds & Prescriptions Reported Meds & Active Scripts Active Levaquin (Levofloxacin) 500 Mg Tablet 500 Mg PO DAILY Lotrisone Topical (Betamethasone/Clotrimazole) 1-0.05% Cream 1 Applic TOPICAL BID Sodium Chloride 1 Gram Tab 1 Gm PO DAILY Midodrine 5 Mg Tab 5 Mg PO TID@0700,1500,1700 Fludrocortisone (Fludrocortisone Acetate) 0.1 Mg Tab 0.1 Mg PO DAILY Gabapentin 400 Mg Cap 400 Mg PO TID Reported Levemir Inj (Insulin Detemir) 1,000 unit/ 10 ML Vial 5 Units SQ BID Do not mix with any other Insulin. Review of Systems General / Constitutional: No: Fever Eyes: No: Visual changes HENT: No: Headaches Cardiovascular: No: Chest Pain or Discomfort Respiratory: No: Shortness of Breath Gastrointestinal: Positive: Diarrhea, Abdominal Pain Genitourinary: No: Dysuria Musculoskeletal: No: Pain Skin: No Rash Neurologic: No: Weakness Psychiatric: No: Depression Endocrine: No: Polydipsia Hematologic/Lymphatic: No: Easy Bruising Physical Exam Narrative GENERAL: Well-nourished, well-developed patient. SKIN: Focused skin assessment warm/dry. HEAD: Normocephalic. EYES: No scleral icterus. No injection or drainage. NECK: Supple, trachea midline. No JVD or lymphadenopathy. CARDIOVASCULAR: Regular rate and rhythm without murmurs, gallops, or rubs. RESPIRATORY: Breath sounds equal bilaterally. No accessory muscle use. GASTROINTESTINAL: Abdomen soft, nondistended. Patient has mild diffuse tenderness over the abdomen. No rebound tenderness. No mass. MUSCULOSKELETAL: No cyanosis, or edema. BACK: Nontender without obvious deformity. No CVA tenderness. Neurologic exam normal. Data Data Last Documented VS Vital Signs Date Time Temp Pulse Resp B/P (MAP) Pulse Ox O2 Delivery O2 Flow Rate FiO2 5/22/18 12:11 98 Room Air 03/27/18 10:11 98.3 83 17 136/71 (92) Orders Orders Complete Blood Count With Diff (03/27/18 10:34) Comprehensive Metabolic Panel (03/27/18 10:34) Lipase (03/27/18 10:34) Urinalysis - C+S If Indicated (03/27/18 10:34) Iv Access Insert/Monitor (03/27/18 10:34) Ecg Monitoring (03/27/18 10:34) Oximetry (03/27/18 10:34) Sodium Chlor 0.9% 1000 Ml Inj (Ns 1000 M (03/27/18 10:34) Sodium Chloride 0.9% Flush (Ns Flush) (03/27/18 10:45) Urine Culture (03/27/18 12:15) Ed Discharge Order (03/27/18 14:20) Labs Laboratory Tests Test 03/27/18 11:25 03/27/18 12:15 White Blood Count 3.5 TH/MM3 Red Blood Count 3.60 MIL/MM3 Hemoglobin 10.4 GM/DL Hematocrit 30.5 % Mean Corpuscular Volume 84.9 FL Mean Corpuscular Hemoglobin 28.8 PG Mean Corpuscular Hemoglobin Concent 34.0 % Red Cell Distribution Width 15.4 % Platelet Count 244 TH/MM3 Mean Platelet Volume 7.6 FL Neutrophils (%) (Auto) 50.8 % Lymphocytes (%) (Auto) 34.8 % Monocytes (%) (Auto) 8.2 % Eosinophils (%) (Auto) 5.0 % Basophils (%) (Auto) 1.2 % Neutrophils # (Auto) 1.8 TH/MM3 Lymphocytes # (Auto) 1.2 TH/MM3 Monocytes # (Auto) 0.3 TH/MM3 Eosinophils # (Auto) 0.2 TH/MM3 Basophils # (Auto) 0.0 TH/MM3 CBC Comment DIFF FINAL Differential Comment Blood Urea Nitrogen 9 MG/DL Creatinine 0.83 MG/DL Random Glucose 90 MG/DL Total Protein 7.0 GM/DL Albumin 3.5 GM/DL Calcium Level 8.8 MG/DL Alkaline Phosphatase 98 U/L Aspartate Amino Transf (AST/SGOT) 13 U/L Alanine Aminotransferase (ALT/SGPT) 13 U/L Total Bilirubin 0.2 MG/DL Sodium Level 142 MEQ/L Potassium Level 3.4 MEQ/L Chloride Level 110 MEQ/L Carbon Dioxide Level 22.0 MEQ/L Anion Gap 10 MEQ/L Estimat Glomerular Filtration Rate 72 ML/MIN Lipase 220 U/L Urine Color YELLOW Urine Turbidity HAZY Urine pH 5.0 Urine Specific [place] 1.006 Urine Protein NEG mg/dL Urine Glucose (UA) NEG mg/dL Urine Ketones NEG mg/dL Urine Occult Blood SMALL Urine Nitrite NEG Urine Bilirubin NEGATIVE Urine Urobilinogen LESS THAN 2.0 MG/DL Urine Leukocyte Esterase MOD Urine RBC LESS THAN 1 /hpf Urine WBC 12 /hpf Urine Squamous Epithelial Cells 2 /hpf Urine Bacteria RARE /hpf Urine Mucus FEW /lpf Microscopic Urinalysis Comment CULTURE INDICATED MDM Medical Decision Making Medical Screen Exam Complete: Yes Emergency Medical Condition: Yes Interpretation(s) 1401 p.m. CBC WBC 3.5. Hemoglobin 10.5 hematocrit 30.5. Patient at baseline. Potassium 3.4. Chloride 110. UA positive for WBC and bacteria. Differential Diagnosis Differential diagnosis including gastroenteritis, C. difficile colitis. Narrative Course 52-year-old female with abdominal cramping and intermittent diarrhea for the past several weeks. Levaquin 500 mg p.o. given. Diagnosis Primary Impression: UTI (urinary tract infection) Qualified Codes: N30.00 - Acute cystitis without hematuria Additional Impression: Gastroenteritis Patient Instructions: General Instructions Additional Instructions: Levaquin as directed. [id number] Imodium as needed for diarrhea. Follow- up with personal physician. Return if persistent problem or worse. Med/Other Pt SpecificInfo: Prescription(s) given Scripts Levofloxacin (Levaquin) 500 Mg Tablet 500 MG PO DAILY for Infection, #7 TAB 0 Refills Prov: Robles Gardiner MD 03/27/18 Disposition: 01 DISCHARGE HOME Condition: Stable Robles Gardiner MD March 27, 2018 10:41
[2018-03-27] MEDS ORDERED: SODIUM CHLORIDE 0.9% FLUSH 10 ML FLUSH IV FLUSH PRN (10:45)
[2018-03-27 11:50] LABS: AUTOMATED NEUTROPHIL # 1.8 TH/MM3 (1.8-7.7); BASOPHIL % 1.2 % (0.0-2.0); EOSINOPHIL # 0.2 TH/MM3 (0-0.4); HEMATOCRIT 30.5 % (35.0-46.0); HEMOGLOBIN 10.4 GM/DL (11.6-15.3); LYMPH % 34.8 % (9.0-44.0); LYMPHOCYTE # 1.2 TH/MM3 (1.0-4.8); MEAN CELL VOLUME 84.9 FL (80.0-100.0); MEAN CORPUSCULAR HEMOGLOBIN 28.8 PG (27.0-34.0); MEAN PLATELET VOLUME 7.6 FL (7.0-11.0); MONO % 8.2 % (0.0-8.0); MONOCYTE # 0.3 TH/MM3 (0-0.9); NEUT % 50.8 % (16.0-70.0); PLATELET COUNT 244 TH/MM3 (150-450); RED CELL DISTRIBUTION WIDTH 15.4 % (11.6-17.2); WHITE BLOOD COUNT 3.5 TH/MM3 (4.0-11.0)
[2018-03-27 12:07] LABS: ALBUMIN 3.5 GM/DL (3.4-5.0); ALT (GPT) 13 U/L (10-53); AST (GOT) 13 U/L (15-37); CALCIUM 8.8 MG/DL (8.5-10.1); CHLORIDE 110 MEQ/L (98-107); CREATININE 0.83 MG/DL (0.50-1.00); GLOMERULAR FILTRATION RATE 72 ML/MIN (>89); GLUCOSE,RANDOM 90 MG/DL (74-106); SODIUM (NA) 142 MEQ/L (136-145)
[2018-03-27 12:11] VITALS: O2SAT 98
[2018-03-27 12:12] LABS: ALKALINE PHOSPHATASE 98 U/L (45-117); BLOOD UREA NITROGEN 9 MG/DL (7-18); TOTAL BILIRUBIN ADULT 0.2 MG/DL (0.2-1.0)
[2018-03-27 13:40] LABS: URINE COLOR YELLOW (YELLW/STRAW)
[2018-03-27 13:41] LABS: BILIRUBIN, URINE NEGATIVE (NEG); BLOOD, URINE SMALL (NEG); GLUCOSE,URINE NEG (NEG); KETONE, URINE NEG (NEG); MUCUS URINE FEW /lpf (OCC); NITRITE,URINE NEG (NEG); URINE LEUKOCYTE ESTERASE MOD (NEG)
[2018-03-27 13:42] LABS: BACTERIA, URINE RARE /hpf; SQUAMOUS EPITHELIAL CELL URINE 2 /hpf (0-5)
[2018-03-27] MEDS ORDERED: LEVA500T33 PO (14:24)
[2018-03-27 15:10] VITALS: BP 132/70
== END 2018-03-27 16:00 | disposition home or self-care (01) ==
LOC: NEPD 10:06
DX: N30.00 Acute cystitis without hematuria (principal); K52.9 Noninfective gastroenteritis and colitis, unspecified; B96.20 Unspecified Escherichia coli [E. coli] as the cause of diseases classified elsewhere; I10 Essential (primary) hypertension; E11.43 Type 2 diabetes mellitus with diabetic autonomic (poly)neuropathy; J45.909 Unspecified asthma, uncomplicated; I48.91 Unspecified atrial fibrillation; B19.20 Unspecified viral hepatitis C without hepatic coma; Z95.0 Presence of cardiac pacemaker; Z85.818 Personal history of malignant neoplasm of other sites of lip, oral cavity, and pharynx; Z86.73 Personal history of transient ischemic attack (TIA), and cerebral infarction without residual deficits; Z87.440 Personal history of urinary (tract) infections; Z88.5 Allergy status to narcotic agent; Z95.5 Presence of coronary angioplasty implant and graft
CPT/HCPCS: 80053; 81001; 83690; 85025; 87077; 87086; 87186; 96360; 96361; 99284; J7030

== ENCOUNTER 2018-04-01 15:24 | Inpatient (IN) | payer MEDICARE, OTHER ==
[~2018-04-01] VITALS: Ht 172.7 cm; Wt 70.0 kg
[~2018-04-01 15:24] MED LIST changes: +LEVA500T33 PO
[2018-04-01 15:50] VITALS: BP 124/59; PULSE 79; RESP 20; TEMP 97.9; O2SAT 99
[2018-04-01] MEDS ORDERED: SODIUM CHLOR 0.9% 1000 ML INJ 1,000 ML IV SCH (16:54)
[2018-04-01] MEDS ORDERED: KETOROLAC TROMETHAMINE 30 MG/ML (IVP) VIAL IV PUSH ONE (17:00)
[2018-04-01] MEDS ORDERED: SODIUM CHLORIDE 0.9% FLUSH 10 ML FLUSH IV FLUSH PRN ×2 (17:00→20:15)
[2018-04-01 17:49] LABS: AUTOMATED NEUTROPHIL # 2.2 TH/MM3 (1.8-7.7); EOSINOPHIL # 0.1 TH/MM3 (0-0.4); EOSINOPHIL % 3.4 % (0.0-4.0); HEMATOCRIT 29.2 % (35.0-46.0); HEMOGLOBIN 9.8 GM/DL (11.6-15.3); LYMPH % 30.3 % (9.0-44.0); LYMPHOCYTE # 1.2 TH/MM3 (1.0-4.8); MEAN CELL VOLUME 85.8 FL (80.0-100.0); MEAN CORPUSCULAR HEMOGLOBIN 28.8 PG (27.0-34.0); MEAN CORPUSCULAR HGB CONC 33.6 % (32.0-36.0); MEAN PLATELET VOLUME 7.6 FL (7.0-11.0); MONOCYTE # 0.4 TH/MM3 (0-0.9); NEUT % 55.3 % (16.0-70.0); PLATELET COUNT 225 TH/MM3 (150-450); RED BLOOD COUNT 3.41 MIL/MM3 (4.00-5.30); RED CELL DISTRIBUTION WIDTH 15.6 % (11.6-17.2); WHITE BLOOD COUNT 4.1 TH/MM3 (4.0-11.0)
[2018-04-01 18:01] LABS: BACTERIA, URINE RARE /hpf; BILIRUBIN, URINE NEG (NEG); BLOOD, URINE NEG (NEG); GLUCOSE,URINE NEG (NEG); KETONE, URINE NEG (NEG); NITRITE,URINE NEG (NEG); PH, URINE 6.5 (5.0-8.5); SQUAMOUS EPITHELIAL CELL URINE 2 /hpf (0-5); URINE COLOR LIGHT-YELLOW (YELLW/STRAW); URINE LEUKOCYTE ESTERASE MOD (NEG)
[2018-04-01 18:09] LABS: PROTHROMBIN TIME - PATIENT 10.1 SEC (9.8-11.6)
[2018-04-01 18:16] LABS: ALBUMIN 3.2 GM/DL (3.4-5.0); ALT (GPT) 13 U/L (10-53); AST (GOT) 13 U/L (15-37); BICARBONATE 29.4 MEQ/L (21.0-32.0); BLOOD UREA NITROGEN 11 MG/DL (7-18); CALCIUM 8.9 MG/DL (8.5-10.1); CHLORIDE 106 MEQ/L (98-107); CREATININE 0.71 MG/DL (0.50-1.00); GLOMERULAR FILTRATION RATE 87 ML/MIN (>89); GLUCOSE,RANDOM 119 MG/DL (74-106); SODIUM (NA) 142 MEQ/L (136-145)
[2018-04-01 18:18] LABS: ALKALINE PHOSPHATASE 90 U/L (45-117); TOTAL BILIRUBIN ADULT 0.2 MG/DL (0.2-1.0); TOTAL PROTEIN 6.7 GM/DL (6.4-8.2)
--- NOTE | 2018-04-01 19:10 | PD ---
HPI Chief Complaint: Abdominal Pain Time Seen by Provider: 16:16 Travel History International Travel<30 days: No Contact w/Intl Traveler<30days: No Traveled to known affect area: No History of Present Illness HPI Patient is a 52-year-old female who comes in complaining of abdominal pain and diarrhea. She has been here multiple times for this. Most recently, she was here on the and diagnosed with a UTI. She was discharged with a prescription for Levaquin. She says she has taken 2 of these. She says that the Levaquin caused her to have diarrhea. However, upon examination of prior charts, she is complained of this diarrhea multiple times. She says the pain is in her lower abdomen. She denies nausea or vomiting. She has not taken anything for the pain or the diarrhea. Her last bowel movement was this morning. She has been eating without any problems. She denies fever chills. Severity is mild. PFSH Past Medical History Arthritis: No Asthma: Yes Atrial Fibrillation: Yes Autoimmune Disease: No Blood Disorders: No Anxiety: No Depression: No Heart Rhythm Problems: Yes (Pacemaker) Cancer: Yes (throat (in remission)) Cardiovascular Problems: Yes (PACEMAKER) High Cholesterol: No Chest Pain: No Congestive Heart Failure: No COPD: No Cerebrovascular Accident: Yes Diabetes: Yes Patient Takes Glucophage: Yes Diminished Hearing: No Endocrine: Yes Gastrointestinal Disorders: Yes (esophagitis, gastritis, Hep C) GERD: No Glaucoma: No Genitourinary: Yes Headaches: Yes Hepatitis: Yes (HEP C) Hiatal Hernia: No Heparin Induced Thrombocytopen: No Hypertension: Yes Immune Disorder: No Implanted Vascular Access Dvce: Yes (PORT R CHEST) Kidney Stones: Yes Musculoskeletal: Yes Neurologic: Yes (diabetic peripheral neuropathy) Psychiatric: No Reproductive: No Respiratory: Yes Immunizations Current: Yes Migraines: No Myocardial Infarction: No Pancreatitis: Yes Radiation Therapy: Yes Renal Failure: No Seizures: No Sickle Cell Disease: No Sleep Apnea: No Thyroid Disease: No Triglycerides - High: Yes Ulcer: No PNEUMOCCOCAL Vaccine (Year): 2 ?: Not Menopausal: Yes : 3 Para: 2 Miscarriage: 1 : 0 Ectopic : No Ovarian Cysts: No Tubal Ligation: No Past Surgical History Abdominal Surgery: Yes (appendectomy, cholecystectomy) AICD: No Appendectomy: Yes Arteriovenous Shunt: No Body Medical Devices: pacemaker Cardiac Surgery: Yes (pacemaker) Section: Yes (x1) Cholecystectomy: Yes Coronary Stent: Yes (L femoral stent ) Ear Surgery: No Endocrine Surgery: No Eye Surgery: No Genitourinary Surgery: No Hysterectomy: No Insulin Pump: No Joint Replacement: No Neurologic Surgery: No Oral Surgery: Yes (tonsillectomy) Pacemaker: Yes Thoracic Surgery: No Tonsillectomy: Yes Other Surgery: Yes (port placed 2016, appendectomy, cholecystectomy, tonsillectomy) Social History Alcohol Use: No Tobacco Use: No Substance Use: No Allergies-Medications (Allergen,Severity, Reaction): Coded Allergies: MRI PRECAUTION (Verified Adverse Reaction, Severe, PACEMAKER IS NOT A BIOTRONIK OR MEDTRONIC 06/15/16 KMD, 04/01/18) PACEMAKER IS NOT A BIOTRONIK OR MEDTRONIC CONDITIONAL PACEMAKER. CALLED BOTH COMPANIES TO CONFIRM. metformin (Verified Adverse Reaction, Severe, DIARRHEA, 04/01/18) morphine (Verified Adverse Reaction, Severe, Dizziness, 04/01/18) oxycodone (Verified Adverse Reaction, Severe, Nausea/Vomiting, 04/01/18) prochlorperazine (Verified Adverse Reaction, Severe, ANXIETY, 04/01/18) ANXIETY Reported Meds & Prescriptions Reported Meds & Active Scripts Active Levaquin (Levofloxacin) 500 Mg Tablet 500 Mg PO DAILY Midodrine 5 Mg Tab 5 Mg PO TID@0700,1500,1700 Fludrocortisone (Fludrocortisone Acetate) 0.1 Mg Tab 0.1 Mg PO DAILY Gabapentin 400 Mg Cap 400 Mg PO TID Reported Levemir Inj (Insulin Detemir) 1,000 unit/ 10 ML Vial 5 Units SQ BID Do not mix with any other Insulin. Review of Systems Except as stated in HPI: all other systems reviewed are Neg General / Constitutional: No: Fever, Chills HENT: No: Headaches, Lightheadedness Cardiovascular: No: Chest Pain or Discomfort Respiratory: No: Shortness of Breath Gastrointestinal: Positive: Diarrhea, Abdominal Pain, No: Nausea Genitourinary: No: Dysuria Musculoskeletal: No: Myalgias, Edema Skin: No Rash, No Change in Pigmentation Neurologic: No: Weakness, Dizziness Physical Exam Narrative GENERAL: Awake and alert, no acute distress. SKIN: Focused skin assessment warm/dry. No wounds or signs of infection. HEAD: Atraumatic. Normocephalic. EYES: Pupils equal and round. No scleral icterus. ENT: Mucous membranes pink and moist. NECK: Trachea midline. No JVD. CARDIOVASCULAR: Regular rate and rhythm. No murmur appreciated. RESPIRATORY: No accessory muscle use. Clear to auscultation. Breath sounds equal bilaterally. GASTROINTESTINAL: Abdomen soft, nondistended. Mild tenderness across the lower abdomen. No rebound or guarding. MUSCULOSKELETAL: No obvious deformities. No clubbing. No cyanosis. No edema. NEUROLOGICAL: Awake and alert. No obvious cranial nerve deficits. Motor grossly within normal limits. Normal speech. PSYCHIATRIC: Appropriate mood and affect; insight and judgment normal. Data Data Last Documented VS Vital Signs Date Time Temp Pulse Resp B/P (MAP) Pulse Ox O2 Delivery O2 Flow Rate FiO2 04/01/18 15:50 97.9 79 20 124/59 (80) 99 Orders Orders Complete Blood Count With Diff (04/01/18 16:54) Comprehensive Metabolic Panel (04/01/18 16:54) Lipase (04/01/18 16:54) Prothrombin Time / Inr (Pt) (04/01/18 16:54) Act Partial Throm Time (Ptt) (04/01/18 16:54) Urinalysis - C+S If Indicated (04/01/18 16:54) Ct Abd/Pel W Iv Contrast(Rout) (04/01/18 16:54) Iv Access Insert/Monitor (04/01/18 16:54) Ecg Monitoring (04/01/18 16:54) Oximetry (04/01/18 16:54) Sodium Chlor 0.9% 1000 Ml Inj (Ns 1000 M (04/01/18 16:54) Sodium Chloride 0.9% Flush (Ns Flush) (04/01/18 17:00) Ketorolac Inj (Toradol Inj) (04/01/18 17:00) Labs Laboratory Tests Test 04/01/18 17:20 04/01/18 17:25 Urine Color LIGHT-YELLOW Urine Turbidity CLEAR Urine pH 6.5 Urine Specific [place] 1.007 Urine Protein NEG mg/dL Urine Glucose (UA) NEG mg/dL Urine Ketones NEG mg/dL Urine Occult Blood NEG Urine Nitrite NEG Urine Bilirubin NEG Urine Urobilinogen LESS THAN 2.0 MG/DL Urine Leukocyte Esterase MOD Urine RBC LESS THAN 1 /hpf Urine WBC 6 /hpf Urine Squamous Epithelial Cells 2 /hpf Urine Bacteria RARE /hpf Microscopic Urinalysis Comment CULT NOT INDICATED White Blood Count 4.1 TH/MM3 Red Blood Count 3.41 MIL/MM3 Hemoglobin 9.8 GM/DL Hematocrit 29.2 % Mean Corpuscular Volume 85.8 FL Mean Corpuscular Hemoglobin 28.8 PG Mean Corpuscular Hemoglobin Concent 33.6 % Red Cell Distribution Width 15.6 % Platelet Count 225 TH/MM3 Mean Platelet Volume 7.6 FL Neutrophils (%) (Auto) 55.3 % Lymphocytes (%) (Auto) 30.3 % Monocytes (%) (Auto) 10.0 % Eosinophils (%) (Auto) 3.4 % Basophils (%) (Auto) 1.0 % Neutrophils # (Auto) 2.2 TH/MM3 Lymphocytes # (Auto) 1.2 TH/MM3 Monocytes # (Auto) 0.4 TH/MM3 Eosinophils # (Auto) 0.1 TH/MM3 Basophils # (Auto) 0.0 TH/MM3 CBC Comment DIFF FINAL Differential Comment Prothrombin Time 10.1 SEC Prothromb Time International Ratio 1.0 RATIO Activated Partial Thromboplast Time 23.3 SEC Blood Urea Nitrogen 11 MG/DL Creatinine 0.71 MG/DL Random Glucose 119 MG/DL Total Protein 6.7 GM/DL Albumin 3.2 GM/DL Calcium Level 8.9 MG/DL Alkaline Phosphatase 90 U/L Aspartate Amino Transf (AST/SGOT) 13 U/L Alanine Aminotransferase (ALT/SGPT) 13 U/L Total Bilirubin 0.2 MG/DL Sodium Level 142 MEQ/L Potassium Level 3.3 MEQ/L Chloride Level 106 MEQ/L Carbon Dioxide Level 29.4 MEQ/L Anion Gap 7 MEQ/L Estimat Glomerular Filtration Rate 87 ML/MIN Lipase 179 U/L [facility] Medical Decision Making Medical Screen Exam Complete: Yes Emergency Medical Condition: Yes Medical Record Reviewed: Yes Differential Diagnosis Dehydration versus electrolyte abnormality versus chronic diarrhea versus chronic abdominal pain Narrative Course Patient is a 52-year-old female who comes in complaining of abdominal pain and diarrhea. Exam shows mild lower abdominal tenderness. IV established, labs sent. Labs show no acute abnormalities. CT abdomen pelvis ordered. Karyn Lopez MD April 01, 2018 19:10
--- NOTE | 2018-04-01 19:24 | PD ---
Physical Exam Date Seen by Provider: April 01, 2018 Time Seen by Provider: 19:23 Narrative accepted in transfer of care from Dr Lopez Data Data Last Documented VS Vital Signs Date Time Temp Pulse Resp B/P (MAP) Pulse Ox O2 Delivery O2 Flow Rate FiO2 04/01/18 15:50 97.9 79 20 124/59 (80) 99 Orders Orders Complete Blood Count With Diff (04/01/18 16:54) Comprehensive Metabolic Panel (04/01/18 16:54) Lipase (04/01/18 16:54) Prothrombin Time / Inr (Pt) (04/01/18 16:54) Act Partial Throm Time (Ptt) (04/01/18 16:54) Urinalysis - C+S If Indicated (04/01/18 16:54) Ct Abd/Pel W Iv Contrast(Rout) (04/01/18 16:54) Iv Access Insert/Monitor (04/01/18 16:54) Ecg Monitoring (04/01/18 16:54) Oximetry (04/01/18 16:54) Sodium Chlor 0.9% 1000 Ml Inj (Ns 1000 M (04/01/18 16:54) Sodium Chloride 0.9% Flush (Ns Flush) (04/01/18 17:00) Ketorolac Inj (Toradol Inj) (04/01/18 17:00) Iohexol 350 Inj (Omnipaque 350 Inj) (04/01/18 19:25) Admit Order (Ed Use Only) (04/01/18 ) Vital Signs (Adult) Q4H (04/01/18 20:08) Activity Oob With Assistance (04/01/18 20:08) Notify Dr: Other (04/01/18 20:08) Labs Laboratory Tests Test 04/01/18 17:20 04/01/18 17:25 Urine Color LIGHT-YELLOW Urine Turbidity CLEAR Urine pH 6.5 Urine Specific [place] 1.007 Urine Protein NEG mg/dL Urine Glucose (UA) NEG mg/dL Urine Ketones NEG mg/dL Urine Occult Blood NEG Urine Nitrite NEG Urine Bilirubin NEG Urine Urobilinogen LESS THAN 2.0 MG/DL Urine Leukocyte Esterase MOD Urine RBC LESS THAN 1 /hpf Urine WBC 6 /hpf Urine Squamous Epithelial Cells 2 /hpf Urine Bacteria RARE /hpf Microscopic Urinalysis Comment CULT NOT INDICATED White Blood Count 4.1 TH/MM3 Red Blood Count 3.41 MIL/MM3 Hemoglobin 9.8 GM/DL Hematocrit 29.2 % Mean Corpuscular Volume 85.8 FL Mean Corpuscular Hemoglobin 28.8 PG Mean Corpuscular Hemoglobin Concent 33.6 % Red Cell Distribution Width 15.6 % Platelet Count 225 TH/MM3 Mean Platelet Volume 7.6 FL Neutrophils (%) (Auto) 55.3 % Lymphocytes (%) (Auto) 30.3 % Monocytes (%) (Auto) 10.0 % Eosinophils (%) (Auto) 3.4 % Basophils (%) (Auto) 1.0 % Neutrophils # (Auto) 2.2 TH/MM3 Lymphocytes # (Auto) 1.2 TH/MM3 Monocytes # (Auto) 0.4 TH/MM3 Eosinophils # (Auto) 0.1 TH/MM3 Basophils # (Auto) 0.0 TH/MM3 CBC Comment DIFF FINAL Differential Comment Prothrombin Time 10.1 SEC Prothromb Time International Ratio 1.0 RATIO Activated Partial Thromboplast Time 23.3 SEC Blood Urea Nitrogen 11 MG/DL Creatinine 0.71 MG/DL Random Glucose 119 MG/DL Total Protein 6.7 GM/DL Albumin 3.2 GM/DL Calcium Level 8.9 MG/DL Alkaline Phosphatase 90 U/L Aspartate Amino Transf (AST/SGOT) 13 U/L Alanine Aminotransferase (ALT/SGPT) 13 U/L Total Bilirubin 0.2 MG/DL Sodium Level 142 MEQ/L Potassium Level 3.3 MEQ/L Chloride Level 106 MEQ/L Carbon Dioxide Level 29.4 MEQ/L Anion Gap 7 MEQ/L Estimat Glomerular Filtration Rate 87 ML/MIN Lipase 179 U/L [facility] Medical Record Reviewed: Yes Supervised Visit with DARIAN: No Differential Diagnosis accepted in transfer of care from Dr Lopez; please refer to her dictation Narrative Course accepted in transfer of care from Dr Lopez; follow up pending labs/ct Patient identified to have use of recent UTI intolerant of Levaquin review of medical records indicates that she is positive for E. coliESBL with no oral essentially intermediate agents that are sensitive to the organism except sensitivity with Macrodantin as patient has had multiple admissions for urinary tract infection discussed with medicine admitting the patient for observation for ertapenem Dr. John all will admit to observation and consult ID and start patient on ertapenem Physician Communication Physician Communication discussed with Dr Barnett Diagnosis Primary Impression: Infection due to ESBL-producing Escherichia coli Additional Impression: UTI (urinary tract infection) Admitting Information Admitting Physician Requests: Observation Leora Mistry MD April 01, 2018 19:24
[2018-04-01] MEDS ORDERED: IOHEXOL 350 MG/ML 10 ML VIAL (for RAD DIAG) IVCONTRAST ONE (19:25)
--- NOTE | 2018-04-01 19:41 | RADRPT ---
EXAM DATE: 04/01/2018 7:27 PM EDT AGE/SEX: 52 years / Female INDICATIONS: Abdominal pain and diarrhea X one day. CLINICAL DATA: This is the patient's initial encounter. Patient reports that signs and symptoms have been present for 1 day and indicates a pain score of 6/10. MEDICAL/SURGICAL HISTORY: Pancreatitis. Diabetes. Hepatitis C. Cardiovascular disease, Hyper tension, Throat cancer Appendectomy. Pacemaker. Cholecystectomy. Mastectomy, ORAL CONTRAST: No oral contrast ingested. RADIATION DOSE: 6.71 CTDI (mGy) [place] [facility] [place] 10[place]18/[place]. . TECHNIQUE: Multiple contiguous axial images were obtained through the abdomen and pelvis following b olus infusion of 97 ml Omnipaque 350 (iohexol) nonionic water-soluble contrast as a single exam dos e. No oral contrast ingested. Using automated exposure control and adjustment of the mA and/or kV ac cording to patient size, the radiation dose was kept as low as reasonably achievable to obtain optima l diagnostic quality images. FINDINGS: Lower Lungs: The visualized lower lungs are clear. Liver: The liver has a homogeneous density without space-occupying lesion. There is no dilation of th e biliary tree. Postcholecystectomy clips are noted. Spleen: Homogeneous density without enlargement. Pancreas: Unremarkable without mass or calcification. Kidneys: Normal in size and shape. No evidence of mass or hydronephrosis. Adrenal Glands: Unremarkable. Aorta: The aorta and proximal iliac vessels are grossly unremarkable without aneurysmal dilation. Bowel/Mesentery: The bowel loops are grossly unremarkable. The cecum and sigmoid colon have a normal configuration. Abdominal Wall: Intact. Retroperitoneum: No evidence of adenopathy in the retrocrural, para-aortic, or deep pelvic regions. Bladder: Contours are smooth. Reproductive Organs: No abnormal masses or calcifications seen. Inguinal: The inguinal region is unremarkable without evidence of adenopathy. Bony Structures: Unremarkable. CONCLUSION: 1. No evidence of acute process, suspicious mass or lymphadenopathy. 2. Status post cholecystectomy 3. Significant change since prior study in 2016 Electronically signed by: Uriel Boykin MD 04/01/2018 7:40 PM EDT
[2018-04-01] MEDS ORDERED: MAGNESIUM HYDROXIDE SUSP 30 ML CUP PO PRN (20:15)
[2018-04-01] MEDS ORDERED: ERTAPENEM SODIUM 1000 MG VIAL IM SCH (20:15)
[2018-04-01] MEDS ORDERED: DEXTROSE 50% IN WATER 50 ML VIAL(D50) IV PUSH PRN (20:15)
[2018-04-01] MEDS ORDERED: LACTULOSE SYRUP 20 GM/30 ML CUP PO PRN (20:15)
[2018-04-01] MEDS ORDERED: ACETAMINOPHEN 325 MG TAB PO PRN (20:15)
[2018-04-01] MEDS ORDERED: BISACODYL 10 MG SUPP RECTAL PRN (20:15)
[2018-04-01] MEDS ORDERED: SENNOSIDES 8.6 MG TAB PO PRN (20:15)
[2018-04-01] MEDS ORDERED: GLUCAGON 1 MG/ML VIAL OTHER PRN (20:15)
--- NOTE | 2018-04-01 20:15 | HHI.HP ---
[facility] Unknown Admission Diagnosis ESBL-EC UTI Diagnoses: (1) UTI (urinary tract infection) Diagnosis: Principal (2) Intractable pain Diagnosis: Principal (3) DM (diabetes mellitus) Diagnosis: Principal Travel History International Travel<30 Days: No Contact w/Intl Traveler <30 Da: No Traveled to Known Affected Are: No History of Present Illness This is a 52-year-old female with a PMH of HTN, A. fib, Throat CA, Hepatitis C, Peripheral Neuropathy and DM who presented to the ER with complaints of abdominal pain for approx 1wk. Seen in ER on 03/27/18 for similar complaints in addition to diarrhea, found to have UTI and was d/c'd home on Levaquin 500mg qd. Returns now w/ ongoing abdominal pain. No nausea, vomiting or fever. Per review of Urine Culture from 03/27/18, +E.Coli ESBL+. BP 124/59, HR 79, O2 sat 99% on RA, Afebrile. CBC at baseline. Chemistry at baseline. UA with moderate LE and bacteriuria. In light of ESBL+ UTI w/ no viable option for PO antibiotics, pt to be admitted. Review of Systems Except as stated in HPI: all other systems reviewed are Neg ROS: 14 point review of systems otherwise negative. Past Family Social History Past Medical History PMH: HTN, A. fib, Throat CA, Hepatitis C, Peripheral Neuropathy and DM Past Surgical History PAST SURGICAL HISTORY: Appendectomy, Cholecystectomy, Pacemaker, , Left Femoral Stent, Tonsillectomy, Port Placement Allergies: Coded Allergies: MRI PRECAUTION (Verified Adverse Reaction, Severe, PACEMAKER IS NOT A BIOTRONIK OR MEDTRONIC 06/15/16 KMD, 04/01/18) PACEMAKER IS NOT A BIOTRONIK OR MEDTRONIC CONDITIONAL PACEMAKER. CALLED BOTH COMPANIES TO CONFIRM. metformin (Verified Adverse Reaction, Severe, DIARRHEA, 04/01/18) morphine (Verified Adverse Reaction, Severe, Dizziness, 04/01/18) oxycodone (Verified Adverse Reaction, Severe, Nausea/Vomiting, 04/01/18) prochlorperazine (Verified Adverse Reaction, Severe, ANXIETY, 04/01/18) ANXIETY Family History PAST FAMILY HISTORY: Reviewed. No h/o DM or CAD Social History PAST SOCIAL HISTORY: Negative for alcohol, tobacco or drugs per Physical Exam Vital Signs Vital Signs Date Time Temp Pulse Resp B/P (MAP) Pulse Ox O2 Delivery O2 Flow Rate FiO2 04/01/18 15:50 97.9 79 20 124/59 (80) 99 Physical Exam PE: GENERAL: Middle-aged white female in no acute distress, appears older than stated age. HEENT: PERRLA, EOMI. No scleral icterus or conjunctival pallor. No lid lag or facial droop. CARDIOVASCULAR: Regular rate and rhythm. No obvious murmurs to auscultation. No chest tenderness to palpation. RESPIRATORY: No obvious rhonchi or wheezing. Clear to auscultation. Breath sounds equal bilaterally. GASTROINTESTINAL: Abdomen soft, mild tenderness to palpation diffusely, nondistended. BS normal. MUSCULOSKELETAL: Extremities without clubbing, cyanosis, or edema. No obvious deformities. NEUROLOGICAL: Awake, alert and oriented x4. No focal neurologic deficits. Moving both upper and lower extremities spontaneously. Laboratory Laboratory Tests Test 04/01/18 17:20 04/01/18 17:25 Urine Color LIGHT-YELLOW Urine Turbidity CLEAR Urine pH 6.5 Urine Specific [place] 1.007 Urine Protein NEG Urine Glucose (UA) NEG Urine Ketones NEG Urine Occult Blood NEG Urine Nitrite NEG Urine Bilirubin NEG Urine Urobilinogen LESS THAN 2.0 Urine Leukocyte Esterase MOD Urine RBC LESS THAN 1 Urine WBC 6 Urine Squamous Epithelial Cells 2 Urine Bacteria RARE Microscopic Urinalysis Comment CULT NOT INDICATED White Blood Count 4.1 Red Blood Count 3.41 Hemoglobin 9.8 Hematocrit 29.2 Mean Corpuscular Volume 85.8 Mean Corpuscular Hemoglobin 28.8 Mean Corpuscular Hemoglobin Concent 33.6 Red Cell Distribution Width 15.6 Platelet Count 225 Mean Platelet Volume 7.6 Neutrophils (%) (Auto) 55.3 Lymphocytes (%) (Auto) 30.3 Monocytes (%) (Auto) 10.0 Eosinophils (%) (Auto) 3.4 Basophils (%) (Auto) 1.0 Neutrophils # (Auto) 2.2 Lymphocytes # (Auto) 1.2 Monocytes # (Auto) 0.4 Eosinophils # (Auto) 0.1 Basophils # (Auto) 0.0 CBC Comment DIFF FINAL Differential Comment Prothrombin Time 10.1 Prothromb Time International Ratio 1.0 Activated Partial Thromboplast Time 23.3 Blood Urea Nitrogen 11 Creatinine 0.71 Random Glucose 119 Total Protein 6.7 Albumin 3.2 Calcium Level 8.9 Alkaline Phosphatase 90 Aspartate Amino Transf (AST/SGOT) 13 Alanine Aminotransferase (ALT/SGPT) 13 Total Bilirubin 0.2 Sodium Level 142 Potassium Level 3.3 Chloride Level 106 Carbon Dioxide Level 29.4 Anion Gap 7 Estimat Glomerular Filtration Rate 87 Lipase 179 Result Diagram: 04/01/18 1725 04/01/18 172 Caprini VTE Risk Assessment Caprini VTE Risk Assessment: No/Low Risk (score <= 1) Caprini Risk Assessment Model Point Value = 1 Point Value = 2 Point Value = 3 Point Value = 5 Age 41-60 Minor surgery BMI > 25 kg/m2 Swollen legs Varicose veins or History of unexplained or recurrent spontaneous Oral contraceptives or hormone replacement Sepsis (< 1 month) Serious lung disease, including pneumonia (< 1 month) Abnormal pulmonary function Acute myocardial infarction Congestive heart failure (< 1 month) History of inflammatory bowel disease Medical patient at bed rest Age 61-74 Arthroscopic surgery Major open surgery (> 45 min) Laparoscopic surgery (> 45 min) Malignancy Confined to bed (> 72 hours) Immobilizing plaster cast Central venous access Age >= 75 History of VTE Family history of VTE Factor V Leiden Prothrombin [id number] Lupus anticoagulant Anticardiolipin antibodies Elevated serum homocysteine Heparin-induced thrombocytopenia Other congenital or acquired thrombophilia Stroke (< 1 month) Elective arthroplasty Hip, pelvis, or leg fracture Acute spinal cord injury (< 1 month) Prophylaxis Regimen Total Risk Factor Score Risk Level Prophylaxis Regimen 0-1 Low Early ambulation 2 Moderate Order ONE of the following: *Sequential Compression Device (SCD) *Heparin 5000 units SQ BID 3-4 Higher Order ONE of the following medications: *Heparin 5000 units SQ TID *Enoxaparin/Lovenox 40 mg SQ daily (WT < 150 kg, CrCl > 30 mL/min) *Enoxaparin/Lovenox 30 mg SQ daily (WT < 150 kg, CrCl > 10-29 mL/min) *Enoxaparin/Lovenox 30 mg SQ BID (WT < 150 kg, CrCl > 30 mL/min) AND/OR *Sequential Compression Device (SCD) 5 or more Highest Order ONE of the following medications: *Heparin 5000 units SQ TID (Preferred with Epidurals) *Enoxaparin/Lovenox 40 mg SQ daily (WT < 150 kg, CrCl > 30 mL/min) *Enoxaparin/Lovenox 30 mg SQ daily (WT < 150 kg, CrCl > 10-29 mL/min) *Enoxaparin/Lovenox 30 mg SQ BID (WT < 150 kg, CrCl > 30 mL/min) AND *Sequential Compression Device (SCD) Assessment and Plan Problem List: (1) UTI (urinary tract infection) ICD Code: N39.0 - Urinary tract infection, site not specified (2) Intractable pain ICD Code: R52 - Pain, unspecified (3) DM (diabetes mellitus) ICD Code: E11.9 - Type 2 diabetes mellitus without complications Assessment and Plan A/P: 1. UTI: h/o Recurrent UTI, recent ER visit 03/27/18 found to have UTI, given Rx for Levaquin 500mg qd, urine cultures from 03/27/18 showing ESBL+ E.Coli, reviewed results, no viable option for PO antibiotics at this time due to resistance, ROSINA for Macrobid <32. Will admit for Observation, initiate treatment w/ Ertapenem 1gm IV qd, Consult ID for further evaluation/ recommendations regarding antibiotic regimen. IVF for hydration. 2. Intractable Pain: reports ongoing abdominal pain, CT Abd/Pelvis w/ no acute findings, images reviewed by me. Reports ALLERGY to Percocet, but no allergy to [place], will start [place] prn. Antiemetics as needed. 3. DM: Sliding scale w/ accu-checks, resume home Insulin. 4. DVT Prophylaxis: SCD/Teds 5. Social work for d/c planning as needed. 6. Case discussed w/ ER physician at length, labs/records/imaging reviewed by me. Namita Barnett MD April 01, 2018 20:15
[2018-04-01] MEDS: DOCUSATE SODIUM 50 MG/SENNA 8.6 MG TAB PO SCH (21:00)
[2018-04-01] MEDS: INSULIN ASPART SUPPLEMENTAL SCALE SQ SCH (21:00)
[2018-04-01] MEDS ORDERED: MIDODRINE 5 MG TAB PO ONE (21:15)
[2018-04-01] MEDS ORDERED: GABAPENTIN 400 MG CAP PO ONE (21:15)
[2018-04-01] MEDS ORDERED: ASP: Documented ESBL, MDR A baumannii or P. aeruginosa ONE (21:15)
[2018-04-01] MEDS ORDERED: ACETAMINOPHEN/HYDROcodone 325 MG/10 MG TAB PO PRN (21:30)
[2018-04-01] MEDS ORDERED: ACETAMINOPHEN/HYDROcodone 325 MG/5 MG TAB PO PRN (21:30)
[2018-04-01] MEDS: ERTAPENEM 1,000 MG/NS 100 ML IV SCH ×2 (21:32)
[2018-04-01] MEDS: INSULIN DETEMIR 100 UNITS/ML VIAL SQ SCH (21:43)
[2018-04-01] MEDS: SODIUM CHLORIDE 0.9% FLUSH 10 ML FLUSH IV FLUSH SCH (21:44)
[2018-04-01 21:57] VITALS: BP 138/68; PULSE 69; RESP 18; TEMP 98.5; O2SAT 99
[2018-04-01] MEDS: SODIUM CHLOR 0.9% 1000 ML INJ 1,000 ML IV SCH (23:59)
[2018-04-02] VITALS (7 sets, daily range): BP systolic 115–199; BP diastolic 63–95; PULSE 68–80; RESP 16–19; TEMP 97.5–98.7; O2SAT 96–100
[2018-04-02] MEDS: MIDODRINE 5 MG TAB PO SCH ×2 (05:17→15:57)
[2018-04-02] MEDS: SODIUM CHLOR 0.9% 1000 ML INJ 1,000 ML IV SCH (05:18)
[2018-04-02 06:21] LABS: AUTOMATED NEUTROPHIL # 1.8 TH/MM3 (1.8-7.7); BASOPHIL % 1.1 % (0.0-2.0); EOSINOPHIL # 0.1 TH/MM3 (0-0.4); EOSINOPHIL % 3.8 % (0.0-4.0); HEMATOCRIT 28.6 % (35.0-46.0); HEMOGLOBIN 9.4 GM/DL (11.6-15.3); LYMPH % 30.8 % (9.0-44.0); MEAN CELL VOLUME 85.7 FL (80.0-100.0); MEAN CORPUSCULAR HEMOGLOBIN 28.3 PG (27.0-34.0); MEAN PLATELET VOLUME 7.6 FL (7.0-11.0); MONO % 11.6 % (0.0-8.0); MONOCYTE # 0.4 TH/MM3 (0-0.9); NEUT % 52.7 % (16.0-70.0); PLATELET COUNT 200 TH/MM3 (150-450); RED BLOOD COUNT 3.33 MIL/MM3 (4.00-5.30); RED CELL DISTRIBUTION WIDTH 15.8 % (11.6-17.2); WHITE BLOOD COUNT 3.4 TH/MM3 (4.0-11.0)
[2018-04-02 06:37] LABS: ALBUMIN 2.9 GM/DL (3.4-5.0); ALKALINE PHOSPHATASE 86 U/L (45-117); ALT (GPT) 13 U/L (10-53); AST (GOT) 26 U/L (15-37); BLOOD UREA NITROGEN 8 MG/DL (7-18); CALCIUM 8.3 MG/DL (8.5-10.1); CHLORIDE 107 MEQ/L (98-107); CREATININE 0.61 MG/DL (0.50-1.00); GLOMERULAR FILTRATION RATE 103 ML/MIN (>89); GLUCOSE,RANDOM 111 MG/DL (74-106); SODIUM (NA) 142 MEQ/L (136-145); TOTAL BILIRUBIN ADULT 0.3 MG/DL (0.2-1.0); TOTAL PROTEIN 6.5 GM/DL (6.4-8.2)
[2018-04-02] MEDS: INSULIN ASPART SUPPLEMENTAL SCALE SQ SCH ×4 (08:00→20:48)
[2018-04-02] MEDS: GABAPENTIN 400 MG CAP PO SCH ×3 (08:27→17:50)
[2018-04-02] MEDS: FLUDROCORTISONE ACETATE 0.1 MG TAB PO SCH (08:28)
[2018-04-02] MEDS: SODIUM CHLORIDE 0.9% FLUSH 10 ML FLUSH IV FLUSH SCH ×2 (08:28→20:47)
[2018-04-02] MEDS: DOCUSATE SODIUM 50 MG/SENNA 8.6 MG TAB PO SCH ×2 (08:28→20:47)
[2018-04-02] MEDS: INSULIN DETEMIR 100 UNITS/ML VIAL SQ SCH ×2 (08:29→20:47)
[2018-04-02] MEDS ORDERED: ERTAPENEM SODIUM 1000 MG VIAL IV SCH (09:00)
--- NOTE | 2018-04-02 09:01 | HHI.PR ---
Subjective Remarks F/U UTI. Improved abdominal pain. Objective Vitals Vital Signs Date Time Temp Pulse Resp B/P (MAP) Pulse Ox O2 Delivery O2 Flow Rate FiO2 04/02/18 08:00 97.5 70 19 199/86 (123) 98 04/02/18 04:39 98.2 75 17 134/63 (86) 99 04/02/18 00:15 97.6 80 18 118/77 (91) 98 04/01/18 21:57 98.5 69 18 138/68 (91) 99 04/01/18 15:50 97.9 79 20 124/59 (80) 99 I/O 04/01/18 04/01/18 04/01/18 04/02/18 04/02/18 04/02/18 07:00 15:00 23:00 07:00 15:00 23:00 Intake Total 1100 ml 200 ml Balance 1100 ml 200 ml Intake Oral 200 ml IV Total 1100 ml Result Diagram: 04/02/18 0600 04/02/18 0600 Imaging Last Impressions Abdomen/Pelvis CT 04/01/18 1654 Signed Impressions: CONCLUSION: 1. No evidence of acute process, suspicious mass or lymphadenopathy. 2. Status post cholecystectomy 3. Significant change since prior study in 2017 Objective Remarks GENERAL: Middle-aged white female in no acute distress, appears older than stated age. HEENT: PERRLA, EOMI. No scleral icterus or conjunctival pallor. No lid lag or facial droop. CARDIOVASCULAR: Regular rate and rhythm. No obvious murmurs to auscultation. No chest tenderness to palpation. RESPIRATORY: No obvious rhonchi or wheezing. Clear to auscultation. Breath sounds equal bilaterally. GASTROINTESTINAL: Abdomen soft, mild tenderness to lower quadrant, nondistended. BS normal. MUSCULOSKELETAL: Extremities without clubbing, cyanosis, or edema. No obvious deformities. NEUROLOGICAL: Awake, alert and oriented x4. No focal neurologic deficits. Moving both upper and lower extremities spontaneously. Procedures none A/P Problem List: (1) UTI (urinary tract infection) ICD Code: N39.0 - Urinary tract infection, site not specified (2) Intractable pain ICD Code: R52 - Pain, unspecified (3) DM (diabetes mellitus) ICD Code: E11.9 - Type 2 diabetes mellitus without complications Assessment and Plan 1. UTI: h/o Recurrent UTI, recent ER visit 03/27/18 found to have UTI, given Rx for Levaquin 500mg qd, urine cultures from 03/27/18 showing ESBL+ E.Coli, reviewed results, no viable option for PO antibiotics at this time due to resistance, ROSINA for Macrobid <32. Continue ertapenem 1gm IV qd, Consult ID for further evaluation/recommendations regarding antibiotic regimen. BP slightly up will discontinue IV hydration history of hypotension on Florinef 2. Intractable Pain: reports ongoing abdominal pain, CT Abd/Pelvis w/ no acute findings, images reviewed by me. Reports ALLERGY to Percocet, but no allergy to [place], will start [place] prn. Antiemetics as needed. 3. DM: Sliding scale w/ accu-checks, resume home Insulin. 4. DVT Prophylaxis: SCD/Teds, early ambulation Discharge Planning When cleared by infectious disease Gurmeet Berry MD April 02, 2018 09:01
--- NOTE | 2018-04-02 13:07 | PD.ID.CON ---
History of Present Illness Service ID Consult Requested By Reason for Consult Evaluation and Mment of ESBL E.coli cystitis Primary Care Physician Unknown Diagnoses: History of Present Illness is a 52 y/o CF with a PMHx of HTN, A. fib, Throat CA, Hepatitis C, Peripheral Neuropathy and DM who presented to the ER with complaints of abdominal pain mostly suprapubic for approx 1wk. Seen in ER on 03/27/18 for similar complaints in addition to diarrhea, found to have UTI and was d/c'd home on Levaquin 500mg qd. Returns now w/ ongoing abdominal pain. No nausea, vomiting or fever. Per review of Urine Culture from 03/27/18, +E.Coli ESBL+. BP 124/59, HR 79, O2 sat 99% on RA, Afebrile. ID consulted for evaluation and Mment of ESBL E.coli UTI possible cystitis based on symptoms. Review of Systems ROS Limitations: Poor Historian Past Family Social History Allergies: Coded Allergies: MRI PRECAUTION (Verified Adverse Reaction, Severe, PACEMAKER IS NOT A BIOTRONIK OR MEDTRONIC 06/15/16 KMD, 04/01/18) PACEMAKER IS NOT A BIOTRONIK OR MEDTRONIC CONDITIONAL PACEMAKER. CALLED BOTH COMPANIES TO CONFIRM. metformin (Verified Adverse Reaction, Severe, DIARRHEA, 04/01/18) morphine (Verified Adverse Reaction, Severe, Dizziness, 04/01/18) oxycodone (Verified Adverse Reaction, Severe, Nausea/Vomiting, 04/01/18) prochlorperazine (Verified Adverse Reaction, Severe, ANXIETY, 04/01/18) ANXIETY Past Medical History HTN, A. fib, Throat CA, Hepatitis C, Peripheral Neuropathy DM Past Surgical History Appendectomy, Cholecystectomy, Pacemaker, , Left Femoral Stent, Tonsillectomy, Port Placement Reported Medications Reported Meds & Active Scripts Active Levaquin (Levofloxacin) 500 Mg Tablet 500 Mg PO DAILY Midodrine 5 Mg Tab 5 Mg PO TID@0700,1500,1700 Fludrocortisone (Fludrocortisone Acetate) 0.1 Mg Tab 0.1 Mg PO DAILY Gabapentin 400 Mg Cap 400 Mg PO TID Reported Levemir Inj (Insulin Detemir) 1,000 unit/ 10 ML Vial 5 Units SQ BID Do not mix with any other Insulin. Active Ordered Medications Current Medications Medications (Trade) Dose Ordered Sig/Mattie Route Start Time Stop Time Status Last Admin (NS Flush) 2 ml UNSCH PRN IV FLUSH 04/01/18 17:00 (D50w (Vial) Inj) 50 ml UNSCH PRN IV PUSH 04/01/18 20:15 (Glucagon Inj) 1 mg UNSCH PRN OTHER 04/01/18 20:15 (NovoLOG SUPPLEMENTAL SCALE) 1 ACHS SLIDING SCALE SQ 04/01/18 21:00 04/02/18 17:54 (NS Flush) 2 ml UNSCH PRN IV FLUSH 04/01/18 20:15 (NS Flush) 2 ml BID IV FLUSH 04/01/18 21:00 04/02/18 08:28 (Tylenol) 650 mg Q6H PRN PO 04/01/18 20:15 (Tamiko-Colace) 1 tab BID PO 04/01/18 21:00 (Milk Of Magnesia Liq) 30 ml Q12H PRN PO 04/01/18 20:15 (Senokot) 17.2 mg Q12H PRN PO 04/01/18 20:15 (Dulcolax Supp) 10 mg DAILY PRN RECTAL 04/01/18 20:15 (Lactulose Liq) 30 ml DAILY PRN PO 04/01/18 20:15 (Florinef) 0.1 mg DAILY PO 04/02/18 09:00 04/02/18 08:28 (Neurontin) 400 mg TID PO 04/02/18 09:00 04/02/18 17:50 (Levemir Inj) 5 units BID SQ 04/01/18 21:00 04/02/18 08:29 (Proamatine) 5 mg TID@0700,1500,1700 PO 04/02/18 07:00 Future Hold 04/02/18 15:57 Ertapenem 1000 mg/ Sodium Chloride 100 ml @ 200 mls/hr Q24H IV 04/01/18 22:00 04/01/18 21:32 (Jenners 5-325 Mg) 1 tab Q4H PRN PO 04/01/18 21:30 (Jenners 10-325 Mg) 1 tab Q4H PRN PO 04/01/18 21:30 Family History Reviewed. No h/o DM or CAD Social History Negative for alcohol, tobacco or drugs but has Hep C positive Physical Exam Vital Signs Vital Signs Date Time Temp Pulse Resp B/P (MAP) Pulse Ox O2 Delivery O2 Flow Rate FiO2 04/02/18 12:34 98.2 68 19 164/76 (105) 100 04/02/18 08:00 97.5 70 19 199/86 (123) 98 04/02/18 04:39 98.2 75 17 134/63 (86) 99 04/02/18 00:15 97.6 80 18 118/77 (91) 98 04/01/18 21:57 98.5 69 18 138/68 (91) 99 04/01/18 15:50 97.9 79 20 124/59 (80) 99 Physical Exam GENERAL: This is a well-nourished, well-developed patient, in no apparent distress. SKIN: No rashes, ecchymoses or lesions. Cool and dry. HEAD: Atraumatic. Normocephalic. No temporal or scalp tenderness. EYES: Pupils equal round and reactive. Extraocular motions intact. No scleral icterus. No injection or drainage. ENT: Nose without bleeding, purulent drainage or septal hematoma. Throat without erythema, tonsillar hypertrophy or exudate. Uvula midline. Airway patent. NECK: Trachea midline. Supple, nontender, no meningeal signs. CARDIOVASCULAR: HS audible. No murmur appreciated. RESPIRATORY: Clear to auscultation. Breath sounds equal bilaterally. GASTROINTESTINAL: Abdomen soft, non-tender, nondistended. SP tenderness mild. MUSCULOSKELETAL: Extremities without clubbing, cyanosis, or edema. No joint tenderness, effusion, or edema noted. No calf tenderness. Negative Homans sign bilaterally. NEUROLOGICAL: Awake and alert. Non focal exam Psych cooperative IV line sites with no e.o infection. Laboratory Laboratory Tests Test 04/01/18 17:20 04/01/18 17:25 04/02/18 06:00 Urine Color LIGHT-YELLOW Urine Turbidity CLEAR Urine pH 6.5 Urine Specific [place] 1.007 Urine Protein NEG Urine Glucose (UA) NEG Urine Ketones NEG Urine Occult Blood NEG Urine Nitrite NEG Urine Bilirubin NEG Urine Urobilinogen LESS THAN 2.0 Urine Leukocyte Esterase MOD Urine RBC LESS THAN 1 Urine WBC 6 Urine Squamous Epithelial Cells 2 Urine Bacteria RARE Microscopic Urinalysis Comment CULT NOT INDICATED White Blood Count 4.1 3.4 Red Blood Count 3.41 3.33 Hemoglobin 9.8 9.4 Hematocrit 29.2 28.6 Mean Corpuscular Volume 85.8 85.7 Mean Corpuscular Hemoglobin 28.8 28.3 Mean Corpuscular Hemoglobin Concent 33.6 33.0 Red Cell Distribution Width 15.6 15.8 Platelet Count 225 200 Mean Platelet Volume 7.6 7.6 Neutrophils (%) (Auto) 55.3 52.7 Lymphocytes (%) (Auto) 30.3 30.8 Monocytes (%) (Auto) 10.0 11.6 Eosinophils (%) (Auto) 3.4 3.8 Basophils (%) (Auto) 1.0 1.1 Neutrophils # (Auto) 2.2 1.8 Lymphocytes # (Auto) 1.2 1.0 Monocytes # (Auto) 0.4 0.4 Eosinophils # (Auto) 0.1 0.1 Basophils # (Auto) 0.0 0.0 CBC Comment DIFF FINAL DIFF FINAL Differential Comment Prothrombin Time 10.1 Prothromb Time International Ratio 1.0 Activated Partial Thromboplast Time 23.3 Blood Urea Nitrogen 11 8 Creatinine 0.71 0.61 Random Glucose 119 111 Total Protein 6.7 6.5 Albumin 3.2 2.9 Calcium Level 8.9 8.3 Alkaline Phosphatase 90 86 Aspartate Amino Transf (AST/SGOT) 13 26 Alanine Aminotransferase (ALT/SGPT) 13 13 Total Bilirubin 0.2 0.3 Sodium Level 142 142 Potassium Level 3.3 4.4 Chloride Level 106 107 Carbon Dioxide Level 29.4 29.0 Anion Gap 7 6 Estimat Glomerular Filtration Rate 87 103 Lipase 179 Date/Time Source Procedure Growth Status 04/01/18 21:30 Blood Peripheral Aerobic Blood Culture - Preliminary NO GROWTH IN 1 DAY Resulted 04/01/18 21:30 Blood Peripheral Anaerobic Blood Culture - Preliminary NO GROWTH IN 1 DAY Resulted Result Diagram: 04/02/18 0600 04/02/18 0600 Imaging Last Impressions Abdomen/Pelvis CT 04/01/18 7504 Signed Impressions: CONCLUSION: 1. No evidence of acute process, suspicious mass or lymphadenopathy. 2. Status post cholecystectomy 3. Significant change since prior study in 2017 Assessment and Plan Assessment and Plan ESBL Eoli UTI cystitis. CT with no stone or structural issues. Hep C Facial/nose with e/o cellulitis. Recs Continue Ertapenem IV Start Doxy for possible nasal cellulitis. Follow cultures Follow clinically. dw RN dw Hepdesirae. Shantel Booth MD April 02, 2018 13:06
[2018-04-03] MEDS: ERTAPENEM 1,000 MG/NS 100 ML IV SCH ×2
[2018-04-03 04:24] VITALS: BP 158/81; PULSE 73; RESP 15; TEMP 98.2; O2SAT 99
[2018-04-03 07:20] VITALS: BP 107/54; PULSE 74; RESP 18; TEMP 98.5; O2SAT 98
[2018-04-03] MEDS: INSULIN ASPART SUPPLEMENTAL SCALE SQ SCH ×2 (08:00→12:00)
[2018-04-03] MEDS: GABAPENTIN 400 MG CAP PO SCH ×2 (08:44→12:48)
[2018-04-03] MEDS: FLUDROCORTISONE ACETATE 0.1 MG TAB PO SCH (08:44)
[2018-04-03] MEDS: SODIUM CHLORIDE 0.9% FLUSH 10 ML FLUSH IV FLUSH SCH (08:45)
[2018-04-03] MEDS: DOCUSATE SODIUM 50 MG/SENNA 8.6 MG TAB PO SCH (08:45)
[2018-04-03] MEDS: INSULIN DETEMIR 100 UNITS/ML VIAL SQ SCH (08:46)
[2018-04-03] MEDS ORDERED: DOXYCYCLINE HYCLATE 100 MG TAB PO SCH (09:00)
--- NOTE | 2018-04-03 10:39 | HHI.PR ---
Subjective Remarks Follow up UTI, abdominal pain. The patient states that her abdominal pain is much better, but she has had nausea this morning. She is concerned about her blood pressure fluctuating. Denies dysuria. Objective Vitals Vital Signs Date Time Temp Pulse Resp B/P (MAP) Pulse Ox O2 Delivery O2 Flow Rate FiO2 04/03/18 07:20 98.5 74 18 107/54 (71) 98 04/03/18 04:24 98.2 73 15 158/81 (106) 99 04/03/18 03:29 18 04/02/18 23:15 98.7 74 16 162/95 (117) 97 04/02/18 19:58 98.4 72 17 115/65 (82) 96 04/02/18 15:21 97.5 72 18 164/74 (104) 100 04/02/18 12:34 98.2 68 19 164/76 (105) 100 I/O 04/02/18 04/02/18 04/02/18 04/03/18 04/03/18 04/03/18 07:00 15:00 23:00 07:00 15:00 23:00 Intake Total 200 ml 650 ml 1260 ml Output Total 1800 ml Balance 200 ml 650 ml -540 ml Intake Oral 200 ml 1260 ml IV Total 650 ml Output Urine Total 1800 ml # Bowel Movements 0 Result Diagram: 04/02/18 0600 04/02/18 0600 Imaging Last Impressions Abdomen/Pelvis CT 04/01/18 1654 Signed Impressions: CONCLUSION: 1. No evidence of acute process, suspicious mass or lymphadenopathy. 2. Status post cholecystectomy 3. Significant change since prior study in 2017 Objective Remarks General: No acute distress. Appears older than stated age. HEENT: Erythema overlying the nose. Heart: Regular rate and rhythm. No murmur. Lungs: Clear to auscultation bilaterally. No wheezes, rales, or rhonchi. Breathing is nonlabored. Abdomen: Soft, nontender, nondistended. Extremities: No lower extremity edema. Psych: Alert and oriented. Neuro: Normal speech. No focal deficits noted. Procedures none Urinary Catheter: No Vascular Central Line Catheter: No A/P Problem List: (1) UTI (urinary tract infection) ICD Code: N39.0 - Urinary tract infection, site not specified (2) Intractable pain ICD Code: R52 - Pain, unspecified (3) DM (diabetes mellitus) ICD Code: E11.9 - Type 2 diabetes mellitus without complications Assessment and Plan 1. UTI: Patient has history of recurrent UTI. Urinalysis and culture done 03/27 showed ESBL positive E. coli. Patient has been treated with Levaquin. Appreciate infectious disease recommendations. Continue ertapenem. 2. Possible cellulitis of the nose: Continue doxycycline. 3. Diabetes mellitus: Monitor Accu-Cheks and cover with sliding scale insulin. Continue home insulin regimen. 4. Abdominal pain: Resolved. 5. DVT prophylaxis: NEGRITO [place]. 6. History of hypotension: Midodrine on hold. Continue Florinef. Jairo Powell MD April 03, 2018 10:39
[2018-04-03 12:01] VITALS: BP 99/54; PULSE 83; RESP 18; TEMP 98.4; O2SAT 96
--- NOTE | 2018-04-03 14:39 | HHI.IDPN ---
Subjective Subjective Remarks Patient seen and examined with Dr. Booth is a 52 y/o CF with a PMHx of HTN, A. fib, Throat CA, Hepatitis C, Peripheral Neuropathy and DM who presented to the ER with complaints of abdominal pain mostly suprapubic for approx 1wk. Seen in ER on 03/27/18 for similar complaints in addition to diarrhea, found to have UTI and was d/c'd home on Levaquin 500mg qd. Returns now w/ ongoing abdominal pain. No nausea, vomiting or fever. Per review of Urine Culture from 03/27/18, +E.Coli ESBL+. BP 124/59, HR 79, O2 sat 99% on RA, Afebrile. ID consulted for evaluation and Mment of ESBL E.coli UTI possible cystitis based on symptoms. Notes reviewed no fever no rash no diarrhea Antibiotics PO Doxycycline IV Ertapenem Lines PIV with no e/o infection Past Medical History HTN A. fib Throat CA Hepatitis C Peripheral Neuropathy DM (Wanda Sharif) Allergies: Coded Allergies: MRI PRECAUTION (Verified Adverse Reaction, Severe, PACEMAKER IS NOT A BIOTRONIK OR MEDTRONIC 06/15/16 KMD, 04/01/18) PACEMAKER IS NOT A BIOTRONIK OR MEDTRONIC CONDITIONAL PACEMAKER. CALLED BOTH COMPANIES TO CONFIRM. metformin (Verified Adverse Reaction, Severe, DIARRHEA, 04/01/18) morphine (Verified Adverse Reaction, Severe, Dizziness, 04/01/18) oxycodone (Verified Adverse Reaction, Severe, Nausea/Vomiting, 04/01/18) prochlorperazine (Verified Adverse Reaction, Severe, ANXIETY, 04/01/18) ANXIETY Objective . Vital Signs Date Time Temp Pulse Resp B/P (MAP) Pulse Ox O2 Delivery O2 Flow Rate FiO2 04/03/18 12:01 98.4 83 18 99/54 (69) 96 04/03/18 07:20 98.5 74 18 107/54 (71) 98 04/03/18 04:24 98.2 73 15 158/81 (106) 99 04/03/18 03:29 18 04/02/18 23:15 98.7 74 16 162/95 (117) 97 04/02/18 19:58 98.4 72 17 115/65 (82) 96 04/02/18 15:21 97.5 72 18 164/74 (104) 100 . Laboratory Tests Test 04/01/18 17:25 04/02/18 06:00 White Blood Count 4.1 TH/MM3 3.4 TH/MM3 Red Blood Count 3.41 MIL/MM3 3.33 MIL/MM3 Hemoglobin 9.8 GM/DL 9.4 GM/DL Hematocrit 29.2 % 28.6 % Mean Corpuscular Volume 85.8 FL 85.7 FL Mean Corpuscular Hemoglobin 28.8 PG 28.3 PG Mean Corpuscular Hemoglobin Concent 33.6 % 33.0 % Red Cell Distribution Width 15.6 % 15.8 % Platelet Count 225 TH/MM3 200 TH/MM3 Mean Platelet Volume 7.6 FL 7.6 FL Neutrophils (%) (Auto) 55.3 % 52.7 % Lymphocytes (%) (Auto) 30.3 % 30.8 % Monocytes (%) (Auto) 10.0 % 11.6 % Eosinophils (%) (Auto) 3.4 % 3.8 % Basophils (%) (Auto) 1.0 % 1.1 % Neutrophils # (Auto) 2.2 TH/MM3 1.8 TH/MM3 Lymphocytes # (Auto) 1.2 TH/MM3 1.0 TH/MM3 Monocytes # (Auto) 0.4 TH/MM3 0.4 TH/MM3 Eosinophils # (Auto) 0.1 TH/MM3 0.1 TH/MM3 Basophils # (Auto) 0.0 TH/MM3 0.0 TH/MM3 CBC Comment DIFF FINAL DIFF FINAL Differential Comment Laboratory Tests Test 04/01/18 17:25 04/02/18 06:00 Blood Urea Nitrogen 11 MG/DL 8 MG/DL Creatinine 0.71 MG/DL 0.61 MG/DL Random Glucose 119 MG/DL 111 MG/DL Total Protein 6.7 GM/DL 6.5 GM/DL Albumin 3.2 GM/DL 2.9 GM/DL Calcium Level 8.9 MG/DL 8.3 MG/DL Alkaline Phosphatase 90 U/L 86 U/L Aspartate Amino Transf (AST/SGOT) 13 U/L 26 U/L Alanine Aminotransferase (ALT/SGPT) 13 U/L 13 U/L Total Bilirubin 0.2 MG/DL 0.3 MG/DL Sodium Level 142 MEQ/L 142 MEQ/L Potassium Level 3.3 MEQ/L 4.4 MEQ/L Chloride Level 106 MEQ/L 107 MEQ/L Carbon Dioxide Level 29.4 MEQ/L 29.0 MEQ/L Anion Gap 7 MEQ/L 6 MEQ/L Estimat Glomerular Filtration Rate 87 ML/MIN 103 ML/MIN Lipase 179 U/L Microbiology Date/Time Source Procedure Growth Status 04/01/18 21:30 Blood Peripheral Aerobic Blood Culture - Preliminary NO GROWTH IN 2 DAYS Resulted 04/01/18 21:30 Blood Peripheral Anaerobic Blood Culture - Preliminary NO GROWTH IN 2 DAYS Resulted 04/01/18 21:25 Blood Peripheral Aerobic Blood Culture - Preliminary NO GROWTH IN 2 DAYS Resulted 04/01/18 21:25 Blood Peripheral Anaerobic Blood Culture - Preliminary NO GROWTH IN 2 DAYS Resulted Imaging Last Impressions Abdomen/Pelvis CT 04/01/18 1654 Signed Impressions: CONCLUSION: 1. No evidence of acute process, suspicious mass or lymphadenopathy. 2. Status post cholecystectomy 3. Significant change since prior study in 2017 Physical Exam GENERAL: This is a well-nourished, well-developed patient, in no apparent distress. Awake and alert. SKIN: No rashes, ecchymoses or lesions. Cool and dry. HEAD: Atraumatic. Normocephalic. No temporal or scalp tenderness. EYES: Pupils equal round and reactive. Extraocular motions intact. No scleral icterus. No injection or drainage. ENT: Nose without bleeding or purulent drainage. Throat without erythema, tonsillar hypertrophy or exudate. Uvula midline. Airway patent. NECK: Trachea midline. Supple, nontender, no meningeal signs. CARDIOVASCULAR: HS audible. No murmur appreciated. RESPIRATORY: Clear to auscultation. Breath sounds equal bilaterally. GASTROINTESTINAL: Abdomen soft, non-tender, nondistended. SP tenderness mild. MUSCULOSKELETAL: Extremities without clubbing, cyanosis, or edema. No joint tenderness, effusion, or edema noted. No calf tenderness. Negative Homans sign bilaterally. NEUROLOGICAL: Awake and alert. Non focal exam Psych cooperative IV line sites with no e.o infection. (Wanda Sharif) Assessment & Plan Remarks ESBL Eoli UTI cystitis. CT with no stone or structural issues. Hep C Facial/nose with e/o cellulitis. Recs D/C IV Ertapenem Start Macrobid 100mg BID x 10 days Continue Doxy for possible nasal cellulitis x 7 days ID will sign off. Please reconsult if needed (Wanda Sharif) Remarks The exam, history, and the medical decision-making described in the above note were completed with the assistance of the mid-level provider. I reviewed and agree with the findings presented. I attest that I had a [id number] encounter with the patient on the same day, and personally performed and documented my assessment and findings in the medical record. Nasal cellulitis better Lungs CTA BL No SP tenderness. Recs Continue Ertapenem iV while in hospital. DC home on Doxy for nasal cellulitis and Macrobid for ESBL UTI. Will sign off please call back if any change in clinical condition or questions. (Shantel Booth MD) Wanda Sharif April 03, 2018 14:39 Shantel Booth MD April 03, 2018 14:48
[2018-04-03] MEDS ORDERED: NITR1CAP36 PO (14:45)
[2018-04-03] MEDS ORDERED: DOXY100C PO (14:46)
--- NOTE | 2018-04-03 15:11 | HHI.DCPOC ---
Discharge Care Plan Diagnosis: (1) DM (diabetes mellitus), type 2, uncontrolled w/neurologic complication (2) UTI (urinary tract infection) (3) Infection due to ESBL-producing Escherichia coli Goals to Promote Your Health * To prevent worsening of your condition and complications * To maintain your health at the optimal level Directions to Meet Your Goals Take your medications as prescribed Follow your dietary instruction Follow activity as directed Keep your appointments as scheduled Take your immunizations and boosters as scheduled If your symptoms worsen call your PCP, if no PCP go to Urgent Care Center or Emergency Room Smoking is Dangerous to Your Health. Avoid second hand smoke Call the 24-hour hour crisis hotline for domestic abuse at Jairo Powell MD April 03, 2018 15:11
== END 2018-04-03 17:44 | disposition home or self-care (01) | DRG 690 ==
LOC: NEPC 15:24 → NEDA 20:11 → NEPGCP 21:45 → OBSVTOIN 04-02 10:11
PROVIDERS: ADMIT Family Medicine; ATTEND Family Medicine
DX: N30.90 Cystitis, unspecified without hematuria (principal); E11.42 Type 2 diabetes mellitus with diabetic polyneuropathy; I48.91 Unspecified atrial fibrillation; I10 Essential (primary) hypertension; B96.20 Unspecified Escherichia coli [E. coli] as the cause of diseases classified elsewhere; R19.7 Diarrhea, unspecified; J34.0 Abscess, furuncle and carbuncle of nose; J45.909 Unspecified asthma, uncomplicated; B19.20 Unspecified viral hepatitis C without hepatic coma; Z16.12 Extended spectrum beta lactamase (ESBL) resistance; Z79.4 Long term (current) use of insulin; Z85.819 Personal history of malignant neoplasm of unspecified site of lip, oral cavity, and pharynx; Z86.73 Personal history of transient ischemic attack (TIA), and cerebral infarction without residual deficits; Z87.440 Personal history of urinary (tract) infections; Z88.5 Allergy status to narcotic agent; Z95.0 Presence of cardiac pacemaker
CPT/HCPCS: 74177; 80053; 81001; 82948; 83690; 85025; 85610; 85730; 87040; J1335; J1815; J1885; J7030; Q9967

== ENCOUNTER 2018-04-11 14:12 | Observation (INO) | payer MEDICARE, MEDICAID ==
[~2018-04-11] VITALS: Ht 167.6 cm; Wt 69.0 kg
[2018-04-11] VITALS (7 sets, daily range): BP systolic 73–176; BP diastolic 46–101; PULSE 70–82; RESP 16–20; TEMP 98–98.5; O2SAT 95–100
[~2018-04-11 14:12] MED LIST changes: +DOXY100C PO; -LEVA500T33 PO; -LOTR15T TOPICAL; +NITR1CAP36 PO; -SODI1TAB PO
[2018-04-11] MEDS ORDERED: SODIUM CHLOR 0.9% 1000 ML INJ 1,000 ML IV ONE ×2 (15:17→16:30)
--- NOTE | 2018-04-11 15:25 | PD ---
HPI Chief Complaint: Dizziness Time Seen by Provider: 15:06 Travel History International Travel<30 days: No Contact w/Intl Traveler<30days: No Traveled to known affect area: No History of Present Illness HPI Patient is a 52-year-old female presenting to the emergency department for evaluation of dizziness. Patient states it started right before she came to the emergency department approximately an hour and a half ago. She states that the son makes her feel dizzy. She states that all of a sudden she began to feel "woozy". When she began to feel dizzy she also reported nausea but no vomiting. Patient has a history of hypotension, she is currently on midodrine and reports compliance with this medication. She denies any chest pain, shortness of breath, headache. Patient states that she feels better now. She does report diarrhea for the last 3 days because of medication she was taking for urinary tract infection. She reported she had 2 loose stools yesterday, none today. Patient went to her primary doctor yesterday for a follow-up and reported this. Symptoms appear chronic in nature, appear to be resolving on their own. PFSH Past Medical History Atrial Fibrillation: Yes Cancer: Yes (hx eosophageal cancer) Cardiovascular Problems: Yes (Hypotension) Chemotherapy: Yes Cerebrovascular Accident: Yes Gastrointestinal Disorders: Yes (esophagitis, gastritis, Hep C) Headaches: Yes Hepatitis: Yes (HEP C) Hypertension: Yes Implanted Vascular Access Dvce: Yes (PORT R CHEST) Kidney Stones: Yes Immunizations Current: Yes Pancreatitis: Yes Radiation Therapy: Yes Sleep Apnea: Yes Triglycerides - High: Yes PNEUMOCCOCAL Vaccine (Year): 2 ?: Unknown Menopausal: Yes : 3 Para: 2 Miscarriage: 1 : 0 Ectopic : No Ovarian Cysts: No Tubal Ligation: No Past Surgical History Appendectomy: Yes Body Medical Devices: wheel chair use and brought own to hospital Cardiac Surgery: Yes (pacemaker) Section: Yes (x1) Cholecystectomy: Yes Coronary Stent: Yes (L femoral stent ) Pacemaker: Yes Tonsillectomy: Yes Social History Alcohol Use: No Tobacco Use: No Substance Use: No Allergies-Medications (Allergen,Severity, Reaction): Coded Allergies: MRI PRECAUTION (Verified Adverse Reaction, Severe, PACEMAKER IS NOT A BIOTRONIK OR MEDTRONIC 06/15/16 KMD, 04/11/18) PACEMAKER IS NOT A BIOTRONIK OR MEDTRONIC CONDITIONAL PACEMAKER. CALLED BOTH COMPANIES TO CONFIRM. metformin (Verified Adverse Reaction, Severe, DIARRHEA, 04/11/18) morphine (Verified Adverse Reaction, Severe, Dizziness, 04/11/18) oxycodone (Verified Adverse Reaction, Severe, Nausea/Vomiting, 04/11/18) prochlorperazine (Verified Adverse Reaction, Severe, ANXIETY, 04/11/18) ANXIETY Reported Meds & Prescriptions Reported Meds & Active Scripts Active Midodrine 5 Mg Tab 5 Mg PO TID@0700,1500,1700 Fludrocortisone (Fludrocortisone Acetate) 0.1 Mg Tab 0.1 Mg PO DAILY Gabapentin 400 Mg Cap 400 Mg PO TID Reported Levemir Inj (Insulin Detemir) 1,000 unit/ 10 ML Vial 5 Units SQ BID Do not mix with any other Insulin. Review of Systems Except as stated in HPI: all other systems reviewed are Neg HENT: Positive: Lightheadedness Gastrointestinal: Positive: Nausea Neurologic: Positive: Dizziness, No: Syncope, Change in Mentation, Sensory Disturbance Physical Exam Narrative GENERAL: Well-developed, well-nourished, alert female. Appears older than stated age. SKIN: Warm and dry. HEAD: Atraumatic. Normocephalic. EYES: Pupils equal and round. No scleral icterus. No injection or drainage. ENT: No nasal bleeding or discharge. Mucous membranes pink and moist. NECK: Trachea midline. No JVD. CARDIOVASCULAR: Regular rate and rhythm. RESPIRATORY: No accessory muscle use. Clear to auscultation. Breath sounds equal bilaterally. GASTROINTESTINAL: Abdomen soft, non-tender, nondistended. Hepatic and splenic margins not palpable. Positive bowel sounds, no rebound, no guarding. MUSCULOSKELETAL: Extremities without clubbing, cyanosis, or edema. No obvious deformities. NEUROLOGICAL: Awake and alert. No obvious cranial nerve deficits. Motor grossly within normal limits. Five out of 5 muscle strength in the arms and legs. Normal speech. PSYCHIATRIC: Appropriate mood and affect; insight and judgment normal. Data Data Last Documented VS Vital Signs Date Time Temp Pulse Resp B/P (MAP) Pulse Ox O2 Delivery O2 Flow Rate FiO2 04/11/18 17:44 75 18 156/87 (110) 100 Room Air 04/11/18 14:35 98.5 Orders Orders Electrocardiogram (04/11/18 15:17) Complete Blood Count With Diff (04/11/18 15:17) Comprehensive Metabolic Panel (04/11/18 15:17) Magnesium (Mg) (04/11/18 15:17) Ckmb (Isoenzyme) Profile (04/11/18 15:17) Troponin I (04/11/18 15:17) Urinalysis - C+S If Indicated (04/11/18 15:17) Blood Glucose (04/11/18 15:17) Ecg Monitoring (04/11/18 15:17) Iv Access Insert/Monitor (04/11/18 15:17) Oximetry (04/11/18 15:17) Sodium Chloride 0.9% Flush (Ns Flush) (04/11/18 15:30) Sodium Chlor 0.9% 1000 Ml Inj (Ns 1000 M (04/11/18 15:17) Orthostatic Vital Signs (04/11/18 15:17) Sodium Chlor 0.9% 1000 Ml Inj (Ns 1000 M (04/11/18 16:30) Labs Laboratory Tests Test 04/11/18 16:00 04/11/18 16:36 White Blood Count 3.9 TH/MM3 Red Blood Count 3.51 MIL/MM3 Hemoglobin 10.3 GM/DL Hematocrit 30.5 % Mean Corpuscular Volume 86.9 FL Mean Corpuscular Hemoglobin 29.3 PG Mean Corpuscular Hemoglobin Concent 33.6 % Red Cell Distribution Width 15.8 % Platelet Count 263 TH/MM3 Mean Platelet Volume 7.6 FL Neutrophils (%) (Auto) 50.4 % Lymphocytes (%) (Auto) 35.6 % Monocytes (%) (Auto) 8.9 % Eosinophils (%) (Auto) 4.0 % Basophils (%) (Auto) 1.1 % Neutrophils # (Auto) 2.0 TH/MM3 Lymphocytes # (Auto) 1.4 TH/MM3 Monocytes # (Auto) 0.4 TH/MM3 Eosinophils # (Auto) 0.2 TH/MM3 Basophils # (Auto) 0.0 TH/MM3 CBC Comment DIFF FINAL Differential Comment Blood Urea Nitrogen 10 MG/DL Creatinine 1.13 MG/DL Random Glucose 167 MG/DL Total Protein 7.2 GM/DL Albumin 3.4 GM/DL Calcium Level 9.0 MG/DL Magnesium Level 1.6 MG/DL Alkaline Phosphatase 105 U/L Aspartate Amino Transf (AST/SGOT) 12 U/L Alanine Aminotransferase (ALT/SGPT) 19 U/L Total Bilirubin 0.3 MG/DL Sodium Level 142 MEQ/L Potassium Level 3.8 MEQ/L Chloride Level 106 MEQ/L Carbon Dioxide Level 26.8 MEQ/L Anion Gap 9 MEQ/L Estimat Glomerular Filtration Rate 51 ML/MIN Total Creatine Kinase 69 U/L Troponin I LESS THAN 0.02 NG/ML Urine Color YELLOW Urine Turbidity CLEAR Urine pH 5.5 Urine Specific [place] 1.015 Urine Protein NEG mg/dL Urine Glucose (UA) NEG mg/dL Urine Ketones NEG mg/dL Urine Occult Blood NEG Urine Nitrite NEG Urine Bilirubin NEG Urine Urobilinogen LESS THAN 2.0 MG/DL Urine Leukocyte Esterase NEG Urine WBC 1 /hpf Urine Squamous Epithelial Cells <1 /hpf Urine Hyaline Casts 13 /lpf Microscopic Urinalysis Comment CULT NOT INDICATED MDM Medical Decision Making Medical Screen Exam Complete: Yes Emergency Medical Condition: Yes Interpretation(s) Vital Signs Date Time Temp Pulse Resp B/P (MAP) Pulse Ox O2 Delivery O2 Flow Rate FiO2 04/11/18 17:44 75 18 156/87 (110) 100 Room Air 04/11/18 16:58 72 18 171/81 (111) 3 18 114/67 (83) 71 18 73/48 (56) 04/11/18 15:44 95 Room Air 04/11/18 15:06 98 Room Air 04/11/18 14:35 98.5 82 20 74/46 (55) 99 Laboratory Tests Test 04/11/18 16:00 04/11/18 16:36 White Blood Count 3.9 TH/MM3 Red Blood Count 3.51 MIL/MM3 Hemoglobin 10.3 GM/DL Hematocrit 30.5 % Mean Corpuscular Volume 86.9 FL Mean Corpuscular Hemoglobin 29.3 PG Mean Corpuscular Hemoglobin Concent 33.6 % Red Cell Distribution Width 15.8 % Platelet Count 263 TH/MM3 Mean Platelet Volume 7.6 FL Neutrophils (%) (Auto) 50.4 % Lymphocytes (%) (Auto) 35.6 % Monocytes (%) (Auto) 8.9 % Eosinophils (%) (Auto) 4.0 % Basophils (%) (Auto) 1.1 % Neutrophils # (Auto) 2.0 TH/MM3 Lymphocytes # (Auto) 1.4 TH/MM3 Monocytes # (Auto) 0.4 TH/MM3 Eosinophils # (Auto) 0.2 TH/MM3 Basophils # (Auto) 0.0 TH/MM3 CBC Comment DIFF FINAL Differential Comment Blood Urea Nitrogen 10 MG/DL Creatinine 1.13 MG/DL Random Glucose 167 MG/DL Total Protein 7.2 GM/DL Albumin 3.4 GM/DL Calcium Level 9.0 MG/DL Magnesium Level 1.6 MG/DL Alkaline Phosphatase 105 U/L Aspartate Amino Transf (AST/SGOT) 12 U/L Alanine Aminotransferase (ALT/SGPT) 19 U/L Total Bilirubin 0.3 MG/DL Sodium Level 142 MEQ/L Potassium Level 3.8 MEQ/L Chloride Level 106 MEQ/L Carbon Dioxide Level 26.8 MEQ/L Anion Gap 9 MEQ/L Estimat Glomerular Filtration Rate 51 ML/MIN Total Creatine Kinase 69 U/L Troponin I LESS THAN 0.02 NG/ML Urine Color YELLOW Urine Turbidity CLEAR Urine pH 5.5 Urine Specific [place] 1.015 Urine Protein NEG mg/dL Urine Glucose (UA) NEG mg/dL Urine Ketones NEG mg/dL Urine Occult Blood NEG Urine Nitrite NEG Urine Bilirubin NEG Urine Urobilinogen LESS THAN 2.0 MG/DL Urine Leukocyte Esterase NEG Urine WBC 1 /hpf Urine Squamous Epithelial Cells <1 /hpf Urine Hyaline Casts 13 /lpf Microscopic Urinalysis Comment CULT NOT INDICATED Differential Diagnosis Orthostatic hypotension versus near syncope versus metabolic abnormality versus versus other Narrative Course Patient is a 52-year-old female presented to the emergency department for evaluation of dizziness. Patient has a history of orthostatic hypotension. Patient was hypotensive on arrival with systolic blood pressure in the upper 70s. Patient was given IV fluids, labs ordered and pending. CBC with no acute findings, chemistry with creatinine of 1.13, cardiac enzymes are negative 1 set, urinalysis unremarkable. Orthostatic vital signs are positive, upon review and comparison of prior there is a significant drop. Patient went from 171 systolic to 73 systolic. Additionally she was very symptomatic. She reports compliance with Midodrine however compliance is questionable. We will admit patient under observation for symptomatic orthostatic hypotension , possible medication adjustment. Residents accepted admission on behalf of Dr. Herrera. Diagnosis Primary Impression: Orthostatic hypotension Admitting Information Admitting Physician Requests: Observation Condition: Stable Rochelle Wang [facility] Apr 11, 2018 15:25
[2018-04-11] MEDS ORDERED: SODIUM CHLORIDE 0.9% FLUSH 10 ML FLUSH IVF PRN (15:30)
[2018-04-11 16:18] LABS: BASOPHIL % 1.1 % (0.0-2.0); EOSINOPHIL # 0.2 TH/MM3 (0-0.4); HEMATOCRIT 30.5 % (35.0-46.0); HEMOGLOBIN 10.3 GM/DL (11.6-15.3); LYMPH % 35.6 % (9.0-44.0); LYMPHOCYTE # 1.4 TH/MM3 (1.0-4.8); MEAN CELL VOLUME 86.9 FL (80.0-100.0); MEAN CORPUSCULAR HEMOGLOBIN 29.3 PG (27.0-34.0); MEAN CORPUSCULAR HGB CONC 33.6 % (32.0-36.0); MEAN PLATELET VOLUME 7.6 FL (7.0-11.0); MONO % 8.9 % (0.0-8.0); MONOCYTE # 0.4 TH/MM3 (0-0.9); NEUT % 50.4 % (16.0-70.0); PLATELET COUNT 263 TH/MM3 (150-450); RED BLOOD COUNT 3.51 MIL/MM3 (4.00-5.30); RED CELL DISTRIBUTION WIDTH 15.8 % (11.6-17.2); WHITE BLOOD COUNT 3.9 TH/MM3 (4.0-11.0)
[2018-04-11 16:39] LABS: ALBUMIN 3.4 GM/DL (3.4-5.0); BICARBONATE 26.8 MEQ/L (21.0-32.0); BLOOD UREA NITROGEN 10 MG/DL (7-18); CHLORIDE 106 MEQ/L (98-107); CREATININE 1.13 MG/DL (0.50-1.00); GLOMERULAR FILTRATION RATE 51 ML/MIN (>89); GLUCOSE,RANDOM 167 MG/DL (74-106); MAGNESIUM 1.6 MG/DL (1.5-2.5); SODIUM (NA) 142 MEQ/L (136-145)
[2018-04-11 16:45] LABS: ALKALINE PHOSPHATASE 105 U/L (45-117); ALT (GPT) 19 U/L (10-53); AST (GOT) 12 U/L (15-37); TOTAL BILIRUBIN ADULT 0.3 MG/DL (0.2-1.0); TOTAL PROTEIN 7.2 GM/DL (6.4-8.2); TROPONIN I LESS THAN 0.02 NG/ML (0.02-0.05)
[2018-04-11 17:38] LABS: BILIRUBIN, URINE NEG (NEG); BLOOD, URINE NEG (NEG); GLUCOSE,URINE NEG (NEG); HYALINE CAST, URINE 13 /lpf (RARE); KETONE, URINE NEG (NEG); NITRITE,URINE NEG (NEG); PH, URINE 5.5 (5.0-8.5); SQUAMOUS EPITHELIAL CELL URINE <1 /hpf (0-5); URINE COLOR YELLOW (YELLW/STRAW); URINE LEUKOCYTE ESTERASE NEG (NEG)
[2018-04-11] MEDS ORDERED: LACTULOSE SYRUP 20 GM/30 ML CUP PO PRN (19:00)
[2018-04-11] MEDS ORDERED: SENNOSIDES 8.6 MG TAB PO PRN (19:00)
[2018-04-11] MEDS ORDERED: SODIUM CHLORIDE 0.9% FLUSH 10 ML FLUSH IV FLUSH PRN (19:00)
[2018-04-11] MEDS ORDERED: DEXTROSE 50% IN WATER 50 ML VIAL(D50) IV PUSH PRN (19:00)
[2018-04-11] MEDS ORDERED: MAGNESIUM HYDROXIDE SUSP 30 ML CUP PO PRN (19:00)
[2018-04-11] MEDS ORDERED: BISACODYL 10 MG SUPP RECTAL PRN (19:00)
[2018-04-11] MEDS ORDERED: GLUCAGON 1 MG/ML VIAL OTHER PRN (19:00)
[2018-04-11] MEDS ORDERED: NALOXONE HCL 0.4 MG/ML AMP IV PUSH PRN (19:00)
[2018-04-11] MEDS ORDERED: ACETAMINOPHEN 325 MG TAB PO PRN (19:00)
[2018-04-11] MEDS ORDERED: ENOXAPARIN SODIUM 40 MG/0.4 ML SYRINGE SQ SCH (19:00)
--- NOTE | 2018-04-11 19:06 | HHI.HP ---
HPI Service Family Medicine Primary Care Physician Unknown Admission Diagnosis Symptomatic orthostatic hypotension Diagnoses: International Travel<30 Days: No Contact w/Intl Traveler<30days: No Known Affected Area: No History of Present Illness 52-year-old female with complicated past medical history including oropharyngeal cancer now in remission, orthostatic hypotension, ESBL UTIs ( recurrent), and type 2 diabetes presenting after an episode of lightheadedness/ dizziness associated with nausea. Episode occurred this afternoon at the court house where she was visiting a friend who had a case pending. After dropping off a document for the friend, and talking to him for a little bit, she went outside of the court house where she noticed the son was brighter than usual to her, and she got very lightheaded and dizzy as well as nauseous. She did not throw up. She did not have any chest pain or shortness of breath. The court staff were concerned by how she looked and called 911. Of note, she has been out of her fludrocortisone (for orthostasis) for the last few days. She never lost consciousness during the episode and did not hit her head. She has no focal weakness and did not notice any speech problems. Review of Systems Constitutional: DENIES: Fever, Chills Endocrine: DENIES: Heat/cold intolerance Eyes: COMPLAINS OF: Blurred vision, DENIES: Diplopia, Eye pain Ears, nose, mouth, throat: DENIES: Vertigo, Nasal discharge, Throat pain, Ear Pain Respiratory: DENIES: Cough, Wheezing, Shortness of breath Cardiovascular: DENIES: Chest pain, Palpitations, Syncope, Lower Extremity Edema Gastrointestinal: COMPLAINS OF: Nausea, DENIES: Abdominal pain, Vomiting, Difficulty Swallowing Genitourinary: DENIES: Urinary frequency, Dysuria Musculoskeletal: DENIES: Joint pain, Muscle aches Integumentary: DENIES: Rash Neurologic: COMPLAINS OF: Paresthesias (chronic neuropathic pain), DENIES: Localized weakness Psychiatric: DENIES: Anxiety, Confusion, Depression Past Family Social History Past Medical History ESBL UTIs Orthostatic Hypotension Diabetes mellitus type 2 Hepatitis C 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 History of CVA Dysautonomia * Gastroparesis * Orthostatic hypotension Pacemaker Asthma Genital herpes and warts Osteoarthritis Cataracts Peripheral neuropathy Past Surgical History Appendectomy Cholecystectomy Tonsillectomy Amputation of left great toe 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 Allergies: Coded Allergies: MRI PRECAUTION (Verified Adverse Reaction, Severe, PACEMAKER IS NOT A BIOTRONIK OR MEDTRONIC 06/15/16 KMD, 04/11/18) PACEMAKER IS NOT A BIOTRONIK OR MEDTRONIC CONDITIONAL PACEMAKER. CALLED BOTH COMPANIES TO CONFIRM. metformin (Verified Adverse Reaction, Severe, DIARRHEA, 04/11/18) morphine (Verified Adverse Reaction, Severe, Dizziness, 04/11/18) oxycodone (Verified Adverse Reaction, Severe, Nausea/Vomiting, 04/11/18) prochlorperazine (Verified Adverse Reaction, Severe, ANXIETY, 04/11/18) ANXIETY Active Ordered Medications Current Medications Medications (Trade) Dose Ordered Sig/Mattie Route Start Time Stop Time Status Last Admin (NS Flush) 2 ml UNSCH PRN IVF 04/11/18 15:30 Sodium Chloride 1,000 ml @ 100 mls/hr Q10H IV 04/11/18 18:51 UNV (NS Flush) 2 ml UNSCH PRN IV FLUSH 04/11/18 19:00 UNV (NS Flush) 2 ml BID IV FLUSH 04/11/18 21:00 UNV (Tylenol) 650 mg Q4H PRN PO 04/11/18 19:00 UNV (Lovenox Inj) 40 mg Q24H SQ 04/11/18 19:00 UNV (Narcan Inj) 0.4 mg UNSCH PRN IV PUSH 04/11/18 19:00 UNV (Tamiko-Colace) 1 tab BID PO 04/11/18 21:00 UNV (Milk Of Magnesia Liq) 30 ml Q12H PRN PO 04/11/18 19:00 UNV (Senokot) 17.2 mg Q12H PRN PO 04/11/18 19:00 UNV (Dulcolax Supp) 10 mg DAILY PRN RECTAL 04/11/18 19:00 UNV (Lactulose Liq) 30 ml DAILY PRN PO 04/11/18 19:00 UNV (Florinef) 0.1 mg DAILY PO 04/12/18 09:00 UNV (Neurontin) 400 mg TID PO 04/12/18 09:00 UNV (Levemir Inj) 5 units BID SQ 04/11/18 21:00 UNV (Proamatine) 5 mg TID@0700,1500,1700 PO 04/12/18 07:00 UNV (D50w (Vial) Inj) 50 ml UNSCH PRN IV PUSH 04/11/18 19:00 UNV (Glucagon Inj) 1 mg UNSCH PRN OTHER 04/11/18 19:00 UNV (NovoLOG SUPPLEMENTAL SCALE) 1 ACHS SLIDING SCALE SQ 04/11/18 21:00 UNV Family History Mother-unknown medical history Father-heart disease, DM Sister-CAD Social History Lives with her roommates Receives disability, unemployed Denies alcohol use Tobacco: quit in 2003, smoked about 1/2 PPD x 14 years prior to quitting Physical Exam Vital Signs Vital Signs Date Time Temp Pulse Resp B/P (MAP) Pulse Ox O2 Delivery O2 Flow Rate FiO2 04/11/18 18:48 77 18 170/90 (116) 98 Room Air 04/11/18 17:44 75 18 156/87 (110) 100 Room Air 04/11/18 16:58 72 18 171/81 (111) 3 18 114/67 (83) 71 18 73/48 (56) 04/11/18 15:44 95 Room Air 04/11/18 15:06 98 Room Air 04/11/18 14:35 98.5 82 20 74/46 (55) 99 Physical Exam GENERAL: Thin adult white female who appears older than stated age lying in bed in no acute distress SKIN: No rashes, ecchymoses or lesions. Cool and dry. HEAD: NC/AT EYES: PERRL. EOMI. No conjunctival injection or drainage. ENT: MMM, OP without erythema, tonsillar swelling, or exudate. NECK: Supple. No JVD. CARDIOVASCULAR: NRRR. Normal S1/S2. No MRG RESPIRATORY: CTAB. No crackles or wheezes. GASTROINTESTINAL: Abdomen soft, non-distended, non-tender. No hepato- splenomegaly or palpable masses. MUSCULOSKELETAL: Extremities without clubbing, cyanosis, or edema. NEUROLOGICAL: Awake and alert. Cranial nerves II through XII intact. Strength 5 out of 5 in all major muscle groups. Sensation grossly intact to light touch. Normal speech. Laboratory Laboratory Tests Test 04/11/18 16:00 04/11/18 16:36 White Blood Count 3.9 Red Blood Count 3.51 Hemoglobin 10.3 Hematocrit 30.5 Mean Corpuscular Volume 86.9 Mean Corpuscular Hemoglobin 29.3 Mean Corpuscular Hemoglobin Concent 33.6 Red Cell Distribution Width 15.8 Platelet Count 263 Mean Platelet Volume 7.6 Neutrophils (%) (Auto) 50.4 Lymphocytes (%) (Auto) 35.6 Monocytes (%) (Auto) 8.9 Eosinophils (%) (Auto) 4.0 Basophils (%) (Auto) 1.1 Neutrophils # (Auto) 2.0 Lymphocytes # (Auto) 1.4 Monocytes # (Auto) 0.4 Eosinophils # (Auto) 0.2 Basophils # (Auto) 0.0 CBC Comment DIFF FINAL Differential Comment Blood Urea Nitrogen 10 Creatinine 1.13 Random Glucose 167 Total Protein 7.2 Albumin 3.4 Calcium Level 9.0 Magnesium Level 1.6 Alkaline Phosphatase 105 Aspartate Amino Transf (AST/SGOT) 12 Alanine Aminotransferase (ALT/SGPT) 19 Total Bilirubin 0.3 Sodium Level 142 Potassium Level 3.8 Chloride Level 106 Carbon Dioxide Level 26.8 Anion Gap 9 Estimat Glomerular Filtration Rate 51 Total Creatine Kinase 69 Troponin I LESS THAN 0.02 Urine Color YELLOW Urine Turbidity CLEAR Urine pH 5.5 Urine Specific [place] 1.015 Urine Protein NEG Urine Glucose (UA) NEG Urine Ketones NEG Urine Occult Blood NEG Urine Nitrite NEG Urine Bilirubin NEG Urine Urobilinogen LESS THAN 2.0 Urine Leukocyte Esterase NEG Urine WBC 1 Urine Squamous Epithelial Cells <1 Urine Hyaline Casts 13 Microscopic Urinalysis Comment CULT NOT INDICATED Result Diagram: 04/11/18 1600 04/11/18 1600 Caprini VTE Risk Assessment Caprini VTE Risk Assessment: Mod/High Risk (score >= 2) Assessment and Plan Assessment and Plan 52-year-old female with [place] located past medical history including orthostatic hypotension, oropharyngeal cancer currently in remission, type 2 diabetes, hepatitis C presenting with: 1. Orthostatic hypotension History and physical exam consistent with orthostatic hypotension, symptomatic. Likely worsened because patient was out of 1 of her medications. Echocardiogram February 2018 with ejection fraction 55-60%, no significant valvular disease, adequate pacemaker placement Carotid artery ultrasound February 2018 negative for significant stenosis Orthostatic vital signs this admission strongly positive Initial troponin negative, patient denies chest pain EKG without dysrhythmia or ST-T wave segment changes -Place in observation -Check orthostatic vital signs tomorrow after administering medication -Monitor for severe hypertension; supine hypertension is a side effect of her medications -Encourage fluids by mouth 2. Frequent falls Fall precautions Defer PT evaluation since patient is already in the process of setting up outpatient physical therapy 3. Type 2 diabetes Blood sugar control Continue Levemir 5 units twice a day Diet diabetic with Glucerna supplement Accu-Cheks Low-dose sliding scale insulin #4 history of oropharyngeal cancer Asymptomatic at present, no evidence of recurrence Continue to monitor clinically #5 hepatitis C No evidence of acute hepatitis Monitor clinically #6 Leukopenia WBC 3.9 (only slightly low) Recovering from previous admissions; likely was due to ESBL UTIs UA negative - Repeat CBC in the morning Fluids: PO only for now Elecs: Monitor, replete PRN Nutrition: As above DVT: Lovenox 40 mg daily SQ Code Status Full code Problem List: (1) Orthostatic hypotension ICD Codes: I95.1 - Orthostatic hypotension Status: Chronic (2) Hepatitis C ICD Codes: B19.20 - Unspecified viral hepatitis C without hepatic coma Status: Chronic (3) Frequent falls ICD Codes: R29.6 - Repeated falls Status: Chronic (4) History of oropharyngeal cancer ICD Codes: Z85.819 - Personal history of malignant neoplasm of unspecified site of lip, oral cavity, and pharynx Status: Chronic (5) DM (diabetes mellitus) ICD Codes: E11.9 - Type 2 diabetes mellitus without complications Status: Chronic Problem Qualifiers (1) DM (diabetes mellitus): Qualified Codes: E11.42 - Type 2 diabetes mellitus with diabetic polyneuropathy ; Z79.4 - detention (current) use of insulin Allan Lindsey MD R2 Apr 11, 2018 19:06
--- NOTE | 2018-04-11 19:27 | PD ---
Physical Exam Date Seen by Provider: Apr 11, 2018 Time Seen by Provider: 16:00 Narrative I, Dr. Bautista, have reviewed the advance practice practitioner's documentation and am in agreement, met with the patient face to face, made the diagnosis, and the medical decision making was done by me. *My assessment and Findings: Patient seen and evaluated with PA, please see PA notes for further details. She is here because of hypotension and orthostasis, dizziness, has had previous history of similar symptoms and has been on Midrin but ran out 3 days ago. She was given IV fluids in the ER. Lab work did not show obvious metabolic issues or signs of UTI. EKG did not show dysrhythmias. Patient has no focal neurological deficits. Laboratory Tests Test 04/11/18 16:00 04/11/18 16:36 White Blood Count 3.9 TH/MM3 (4.0-11.0) Red Blood Count 3.51 MIL/MM3 (4.00-5.30) Hemoglobin 10.3 GM/DL (11.6-15.3) Hematocrit 30.5 % (35.0-46.0) Monocytes (%) (Auto) 8.9 % (0.0-8.0) Creatinine 1.13 MG/DL (0.50-1.00) Random Glucose 167 MG/DL (74-106) Aspartate Amino Transf (AST/SGOT) 12 U/L (15-37) Estimat Glomerular Filtration Rate 51 ML/MIN (>89) Troponin I LESS THAN 0.02 NG/ML She was given IV fluid boluses with some improvement in blood pressure but she continues to be fairly orthostatic and symptomatic in the ER. At this point, plan would be to admit her as an observation for further treatment. Data Data Last Documented VS Vital Signs Date Time Temp Pulse Resp B/P (MAP) Pulse Ox O2 Delivery O2 Flow Rate FiO2 04/11/18 17:44 75 18 156/87 (110) 100 Room Air 04/11/18 14:35 98.5 Orders Orders Electrocardiogram (04/11/18 15:17) Complete Blood Count With Diff (04/11/18 15:17) Comprehensive Metabolic Panel (04/11/18 15:17) Magnesium (Mg) (04/11/18 15:17) Ckmb (Isoenzyme) Profile (04/11/18 15:17) Troponin I (6/6/18 15:17) Urinalysis - C+S If Indicated (04/11/18 15:17) Blood Glucose (04/11/18 15:17) Ecg Monitoring (04/11/18 15:17) Iv Access Insert/Monitor (04/11/18 15:17) Oximetry (04/11/18 15:17) Sodium Chloride 0.9% Flush (Ns Flush) (04/11/18 15:30) Sodium Chlor 0.9% 1000 Ml Inj (Ns 1000 M (04/11/18 15:17) Orthostatic Vital Signs (04/11/18 15:17) Sodium Chlor 0.9% 1000 Ml Inj (Ns 1000 M (04/11/18 16:30) Labs Laboratory Tests Test 04/11/18 16:00 04/11/18 16:36 White Blood Count 3.9 TH/MM3 Red Blood Count 3.51 MIL/MM3 Hemoglobin 10.3 GM/DL Hematocrit 30.5 % Mean Corpuscular Volume 86.9 FL Mean Corpuscular Hemoglobin 29.3 PG Mean Corpuscular Hemoglobin Concent 33.6 % Red Cell Distribution Width 15.8 % Platelet Count 263 TH/MM3 Mean Platelet Volume 7.6 FL Neutrophils (%) (Auto) 50.4 % Lymphocytes (%) (Auto) 35.6 % Monocytes (%) (Auto) 8.9 % Eosinophils (%) (Auto) 4.0 % Basophils (%) (Auto) 1.1 % Neutrophils # (Auto) 2.0 TH/MM3 Lymphocytes # (Auto) 1.4 TH/MM3 Monocytes # (Auto) 0.4 TH/MM3 Eosinophils # (Auto) 0.2 TH/MM3 Basophils # (Auto) 0.0 TH/MM3 CBC Comment DIFF FINAL Differential Comment Blood Urea Nitrogen 10 MG/DL Creatinine 1.13 MG/DL Random Glucose 167 MG/DL Total Protein 7.2 GM/DL Albumin 3.4 GM/DL Calcium Level 9.0 MG/DL Magnesium Level 1.6 MG/DL Alkaline Phosphatase 105 U/L Aspartate Amino Transf (AST/SGOT) 12 U/L Alanine Aminotransferase (ALT/SGPT) 19 U/L Total Bilirubin 0.3 MG/DL Sodium Level 142 MEQ/L Potassium Level 3.8 MEQ/L Chloride Level 106 MEQ/L Carbon Dioxide Level 26.8 MEQ/L Anion Gap 9 MEQ/L Estimat Glomerular Filtration Rate 51 ML/MIN Total Creatine Kinase 69 U/L Troponin I LESS THAN 0.02 NG/ML Urine Color YELLOW Urine Turbidity CLEAR Urine pH 5.5 Urine Specific [place] 1.015 Urine Protein NEG mg/dL Urine Glucose (UA) NEG mg/dL Urine Ketones NEG mg/dL Urine Occult Blood NEG Urine Nitrite NEG Urine Bilirubin NEG Urine Urobilinogen LESS THAN 2.0 MG/DL Urine Leukocyte Esterase NEG Urine WBC 1 /hpf Urine Squamous Epithelial Cells <1 /hpf Urine Hyaline Casts 13 /lpf Microscopic Urinalysis Comment CULT NOT INDICATED MDM Medical Record Reviewed: Yes Supervised Visit with DARIAN: Yes Diagnosis Primary Impression: Orthostatic hypotension Admitting Information Admitting Physician Requests: Admit Condition: Stable Gillian Bautista MD Apr 11, 2018 19:27
[2018-04-11] MEDS: SODIUM CHLOR 0.9% 1000 ML INJ 1,000 ML IV SCH (20:57)
[2018-04-11] MEDS: SODIUM CHLORIDE 0.9% FLUSH 10 ML FLUSH IV FLUSH SCH (20:57)
[2018-04-11] MEDS: INSULIN ASPART SUPPLEMENTAL SCALE SQ SCH (20:58)
[2018-04-11] MEDS: DOCUSATE SODIUM 50 MG/SENNA 8.6 MG TAB PO SCH ×2 (20:58→20:59)
[2018-04-11] MEDS: INSULIN DETEMIR 100 UNITS/ML VIAL SQ SCH (21:07)
[2018-04-12 00:40] VITALS: BP 162/72; PULSE 76; RESP 16; TEMP 97.8; O2SAT 98
[2018-04-12] MEDS: SODIUM CHLOR 0.9% 1000 ML INJ 1,000 ML IV SCH (04:51)
[2018-04-12 04:58] VITALS: BP 185/88; PULSE 75; RESP 16; TEMP 98.1; O2SAT 99
[2018-04-12] MEDS ORDERED: MIDODRINE 5 MG TAB PO SCH (07:00)
[2018-04-12 07:43] VITALS: BP_SYST 164; BP_SYST 97; BP_DIAS 62; BP_DIAS 85; PULSE 79; RESP 18; TEMP 97.9; O2SAT 100
[2018-04-12] MEDS: SODIUM CHLORIDE 0.9% FLUSH 10 ML FLUSH IV FLUSH SCH (08:12)
[2018-04-12] MEDS: DOCUSATE SODIUM 50 MG/SENNA 8.6 MG TAB PO SCH (08:12)
[2018-04-12] MEDS: INSULIN ASPART SUPPLEMENTAL SCALE SQ SCH (08:50)
[2018-04-12] MEDS: INSULIN DETEMIR 100 UNITS/ML VIAL SQ SCH (08:51)
[2018-04-12] MEDS ORDERED: FLUDROCORTISONE ACETATE 0.1 MG TAB PO SCH (09:00)
[2018-04-12] MEDS ORDERED: GABAPENTIN 400 MG CAP PO SCH (09:00)
[2018-04-12] MEDS ORDERED: FLUD.1 PO (09:35)
--- NOTE | 2018-04-12 09:36 | HHI.DCPOC ---
Discharge Care Plan Diagnosis: (1) Orthostatic hypotension (2) DM (diabetes mellitus), type 2, uncontrolled w/neurologic complication Goals to Promote Your Health * To prevent worsening of your condition and complications * To maintain your health at the optimal level Directions to Meet Your Goals Take your medications as prescribed Follow your dietary instruction Follow activity as directed Keep your appointments as scheduled Take your immunizations and boosters as scheduled If your symptoms worsen call your PCP, if no PCP go to Urgent Care Center or Emergency Room Smoking is Dangerous to Your Health. Avoid second hand smoke Call the 24-hour hour crisis hotline for domestic abuse at Allan Lindsey MD R2 Apr 12, 2018 9:36 am
--- NOTE | 2018-04-12 12:24 | HHI.FPPN ---
Subjective Remarks 52-year-old female with chronic orthostatic hypotension who was found yesterday to be lightheaded and faint and while she did not lose consciousness she became very weak and in fact was called. She was brought to the emergency department. It turns out that she has been out of her fludrocortisone at home. She normally takes that plus Midodrine drain to sustain her blood pressure. This morning, she feels back to baseline and is ready to go home. No rapid heartbeats, no chest pain, no lightheadedness and no shortness of breath. Objective Vitals Vital Signs Date Time Temp Pulse Resp B/P (MAP) Pulse Ox O2 Delivery O2 Flow Rate FiO2 04/12/18 07:43 97.9 79 18 164/85 (111) 100 155/87 (109) 97/62 (74) 04/12/18 04:58 98.1 75 16 185/88 (120) 99 04/12/18 00:40 97.8 76 16 162/72 (102) 98 04/11/18 20:49 98.0 72 16 176/86 (116) 100 04/11/18 20:00 04/11/18 19:06 70 16 173/101 (125) 100 Room Air 04/11/18 18:48 77 18 170/90 (116) 98 Room Air 04/11/18 17:44 75 18 156/87 (110) 100 Room Air 04/11/18 16:58 72 18 171/81 (111) 3 18 114/67 (83) 71 18 73/48 (56) 04/11/18 15:44 95 Room Air 04/11/18 15:06 98 Room Air 04/11/18 14:35 98.5 82 20 74/46 (55) 99 I/O 04/11/18 04/11/18 04/11/18 04/12/18 04/12/18 04/12/18 07:00 15:00 23:00 07:00 15:00 23:00 Intake Total 1000 ml 720 ml Balance 1000 ml 720 ml Intake Oral 720 ml IV Total 1000 ml # Voids 4 # Bowel Movements 1 Result Diagram: 04/11/18 1600 04/11/18 1600 Objective Remarks O. CONSTITUTIONAL/GEN: normally nourished, in NAD. EYES: conjunctiva normal, PERRLA, EOMI. ENT: Edentulous NECK: thyroid midline LUNGS: clear A-P, respiratory effort is normal. CARDIOVASCULAR: RR without murmur or gallop. No significant edema. GI/ABD: soft without masses, without organomegaly. NEURO: No focal deficits. SKIN: color normal, no rashes noted. HEME/LYMPH: no bruising, petechia or significant adenopathy MUSC: back is normal in appearance. Extremities are normal in appearance. PSYCH/MENTAL STATUS: Alert and oriented x 3. A/P Assessment and Plan 52-year-old female with [place] located past medical history including orthostatic hypotension, oropharyngeal cancer currently in remission, type 2 diabetes, hepatitis C presenting with: 1. Orthostatic hypotension History and physical exam consistent with orthostatic hypotension, symptomatic. Likely worsened because patient was out of 1 of her medications. Echocardiogram February 2018 with ejection fraction 55-60%, no significant valvular disease, adequate pacemaker placement Carotid artery ultrasound February 2018 negative for significant stenosis Orthostatic vital signs this admission strongly positive Initial troponin negative, patient denies chest pain EKG without dysrhythmia or ST-T wave segment changes -Place in observation -Check orthostatic vital signs tomorrow after administering medication -Monitor for severe hypertension; supine hypertension is a side effect of her medications -Encourage fluids by mouth 2. Frequent falls Fall precautions Defer PT evaluation since patient is already in the process of setting up outpatient physical therapy 3. Type 2 diabetes Blood sugar control Continue Levemir 5 units twice a day Diet diabetic with Glucerna supplement Accu-Cheks Low-dose sliding scale insulin #4 history of oropharyngeal cancer Asymptomatic at present, no evidence of recurrence Continue to monitor clinically #5 hepatitis C No evidence of acute hepatitis Monitor clinically #6 Leukopenia WBC 3.9 (only slightly low) Recovering from previous admissions; likely was due to ESBL UTIs UA negative Discharge Planning Home today, prescription for her fludrocortisone. She should follow-up with her primary care doctor as an outpatient. Attending Attestation Patient seen and examined. Case reviewed and discussed with the resident team. Agree with plan of care as discussed with me and documented in the resident note. Problem List: (1) Orthostatic hypotension ICD Codes: I95.1 - Orthostatic hypotension Status: Chronic (2) Hepatitis C ICD Codes: B19.20 - Unspecified viral hepatitis C without hepatic coma Status: Chronic (3) Frequent falls ICD Codes: R29.6 - Repeated falls Status: Chronic (4) History of oropharyngeal cancer ICD Codes: Z85.819 - Personal history of malignant neoplasm of unspecified site of lip, oral cavity, and pharynx Status: Chronic (5) DM (diabetes mellitus) ICD Codes: E11.9 - Type 2 diabetes mellitus without complications Status: Chronic Problem Qualifiers (1) DM (diabetes mellitus): Qualified Codes: E11.42 - Type 2 diabetes mellitus with diabetic polyneuropathy ; Z79.4 - termite helper (current) use of insulin Mary Fagan MD Apr 12, 2018 12:24
--- NOTE | 2018-04-12 15:33 | EKG ---
Date Performed: 04/11/2018 Time Performed: 15:36:47 PTAGE: 52 years EKG: Sinus rhythm SEPTAL MYOCARDIAL INFARCTION ABNORMAL ECG Since the PREVIOUS TRACING , no significant change noted PREVIOUS TRACIN03/22/2018 12.34 DOCTOR: Alyson Flores Interpretating Date/Time 04/12/2018 15:31:05
== END 2018-04-12 12:09 | disposition home or self-care (01) ==
LOC: NEPC 14:12 → NEDA 18:44 → NEPFCDU 20:26
PROVIDERS: ADMIT Family Medicine; ATTEND Family Medicine
DX: I95.1 Orthostatic hypotension (principal); E11.49 Type 2 diabetes mellitus with other diabetic neurological complication; B19.20 Unspecified viral hepatitis C without hepatic coma; Z79.4 Long term (current) use of insulin; E11.65 Type 2 diabetes mellitus with hyperglycemia; I48.91 Unspecified atrial fibrillation; I10 Essential (primary) hypertension; G47.30 Sleep apnea, unspecified; J45.909 Unspecified asthma, uncomplicated; R29.6 Repeated falls; Z85.819 Personal history of malignant neoplasm of unspecified site of lip, oral cavity, and pharynx
CPT/HCPCS: 80053; 81001; 82550; 82948; 83735; 84484; 85025; 93005; 96360; 96361; 96372; 99285; G0378; J1650; J1815; J7030

== ENCOUNTER 2018-04-20 09:00 | Emergency (ER) | payer MEDICARE, MEDICAID ==
[~2018-04-20] VITALS: Ht 167.6 cm; Wt 70.0 kg
[~2018-04-20 09:00] MED LIST changes: -DOXY100C PO; -NITR1CAP36 PO
[2018-04-20 09:10] VITALS: BP 125/70; PULSE 86; RESP 11; RESP 21; TEMP 98; O2SAT 99
[2018-04-20 11:14] VITALS: BP 163/84; PULSE 71; RESP 18; O2SAT 99
[2018-04-20] MEDS ORDERED: BACT800T5 PO (11:25)
--- NOTE | 2018-04-20 11:28 | PD ---
HPI Chief Complaint: Skin Problem Time Seen by Provider: 09:42 Travel History International Travel<30 days: No Contact w/Intl Traveler<30days: No Traveled to known affect area: No History of Present Illness HPI The patient was seen and examined in the presence of the nurse. This patient complains of a tender lesion on the left side of her scalp. Duration is 4 days. Severity is moderate. No fever. No injury. 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, lymphadenopathy, eosophageal cancer hx) Implanted Vascular Access Dvce: Yes (PORT R CHEST) Kidney Stones: Yes Musculoskeletal: Yes (lower extremity weakness) Neurologic: Yes (stroke ) Psychiatric: No Reproductive: No Respiratory: Yes Immunizations Current: Yes Pancreatitis: Yes Radiation Therapy: Yes Sleep Apnea: Yes Thyroid Disease: No Triglycerides - High: Yes PNEUMOCCOCAL Vaccine (Year): 2 ?: Not Menopausal: Yes : 3 Para: 2 Miscarriage: 1 : 0 Ectopic : No Ovarian Cysts: No Tubal Ligation: No Past Surgical History Abdominal Surgery: Yes (appendectomy, cholecystectomy) Appendectomy: Yes Body Medical Devices: wheel chair use and brought own to hospital Cardiac Surgery: Yes (pacemaker) Section: Yes (x1) Cholecystectomy: Yes Coronary Stent: Yes (L femoral stent ) Oral Surgery: Yes (tonsillectomy) Pacemaker: Yes Tonsillectomy: Yes Other Surgery: Yes (port placed 2016, appendectomy, cholecystectomy, tonsillectomy) Social History Alcohol Use: No Tobacco Use: No Substance Use: No Allergies-Medications (Allergen,Severity, Reaction): Coded Allergies: MRI PRECAUTION (Verified Adverse Reaction, Severe, PACEMAKER IS NOT A BIOTRONIK OR MEDTRONIC 06/15/16 KMD, 04/20/18) PACEMAKER IS NOT A BIOTRONIK OR MEDTRONIC CONDITIONAL PACEMAKER. CALLED BOTH COMPANIES TO CONFIRM. metformin (Verified Adverse Reaction, Severe, DIARRHEA, 04/20/18) morphine (Verified Adverse Reaction, Severe, Dizziness, 04/20/18) oxycodone (Verified Adverse Reaction, Severe, Nausea/Vomiting, 04/20/18) prochlorperazine (Verified Adverse Reaction, Severe, ANXIETY, 04/20/18) ANXIETY Reported Meds & Prescriptions Reported Meds & Active Scripts Active Bactrim DS (Sulfamethoxazole-Trimethoprim) 800-160 Mg Tab 1 Tab PO BID Fludrocortisone (Fludrocortisone Acetate) 0.1 Mg Tab 0.1 Mg PO DAILY Midodrine 5 Mg Tab 5 Mg PO TID@0700,1500,1700 Gabapentin 400 Mg Cap 400 Mg PO TID Reported Levemir Inj (Insulin Detemir) 1,000 unit/ 10 ML Vial 5 Units SQ BID Do not mix with any other Insulin. Review of Systems General / Constitutional: No: Fever Cardiovascular: No: Chest Pain or Discomfort Respiratory: No: Cough Physical Exam Narrative NECK: Symmetrical appearance, midline trachea. No mass or crepitus. Thyroid without enlargement, tenderness, or mass. GASTROINTESTINAL: Abdomen soft, non-tender, nondistended. Positive bowel sounds. No hepato-splenomegaly, or palpable masses. No guarding. Scalp: Patient is a 1 cm x 1 cm parietal left scalp. No fluctuance or drainage. Data Data Last Documented VS Vital Signs Date Time Temp Pulse Resp B/P (MAP) Pulse Ox O2 Delivery O2 Flow Rate FiO2 04/20/18 11:14 71 18 163/84 (110) 99 Room Air 04/20/18 09:10 98.0 MDM Medical Decision Making Medical Screen Exam Complete: Yes Emergency Medical Condition: Yes Medical Record Reviewed: Yes Differential Diagnosis Epidermoid cyst, boil, cellulitis Narrative Course I have reviewed the patient's electronic medical record. Patient is a very frequent visitor to the ER. This is her sixth visit in the last month I wrote her a week of Bactrim Seems most consistent with an inflamed epidermoid cyst The patient was advised to follow up with their physician and return if they worsen. Diagnosis Primary Impression: Epidermoid cyst of skin Additional Instructions: The patient was advised to follow up with their physician and return if they worsen. Med/Other Pt SpecificInfo: Prescription(s) given Scripts Sulfamethoxazole-Trimethoprim (Bactrim DS) 800-160 Mg Tab 1 TAB PO BID for Infection, #14 TAB 0 Refills Prov: Jairo Salazar MD 04/20/18 Disposition: 01 DISCHARGE HOME Condition: Stable Jairo Salazar MD Apr 20, 2018 11:28
== END 2018-04-20 11:46 | disposition home or self-care (01) ==
LOC: NEPE 09:00
DX: L72.9 Follicular cyst of the skin and subcutaneous tissue, unspecified (principal)
CPT/HCPCS: 99283

== ENCOUNTER 2018-04-26 09:20 | Emergency (ER) | payer MEDICARE, MEDICAID ==
[~2018-04-26] VITALS: Ht 172.7 cm; Wt 69.0 kg
[~2018-04-26 09:20] MED LIST changes: +BACT800T5 PO
[2018-04-26 09:34] VITALS: BP 94/62; PULSE 74; RESP 18; O2SAT 96
[2018-04-26 09:42] VITALS: TEMP 99.3
[2018-04-26] MEDS ORDERED: SODIUM CHLORIDE 0.9% FLUSH 10 ML FLUSH IV FLUSH PRN (10:00)
[2018-04-26] MEDS ORDERED: DICYCLOMINE HCL 20 MG/2 ML VIAL IM ONE (10:00)
--- NOTE | 2018-04-26 10:04 | PD ---
HPI . Abdominal pain Chief Complaint: GI Complaint Time Seen by Provider: 09:28 Travel History International Travel<30 days: No Contact w/Intl Traveler<30days: No Traveled to known affect area: No History of Present Illness HPI Patient presents with chief complaint of abdominal pain. Onset was yesterday. Continuous. The pain is sharp and located in the lower part of her abdomen. It is rated 9/10. It is associated with some mild nausea and vomiting but she has had a total of 3 episodes of emesis. She reports no modifying factors. She states that she has a history of gastroparesis, pancreatitis and hepatitis C. She has had a previous appendectomy and cholecystectomy per her report. PFSH Past Medical History Asthma: Yes Atrial Fibrillation: Yes Blood Disorders: No Anxiety: No Depression: No Heart Rhythm Problems: Yes (pacemaker) Cancer: Yes (hx eosophageal cancer) Cardiovascular Problems: Yes (Hypotension) High Cholesterol: No Chemotherapy: Yes (HX) Chest Pain: No Congestive Heart Failure: No COPD: No Cerebrovascular Accident: Yes Diabetes: No Diminished Hearing: No Endocrine: Yes Gastrointestinal Disorders: Yes (esophagitis, gastritis, Hep C) Genitourinary: No Headaches: Yes Hepatitis: Yes (HEP C) Hypertension: Yes Immune Disorder: Yes Implanted Vascular Access Dvce: Yes (PORT R CHEST) Kidney Stones: Yes Musculoskeletal: Yes (lower extremity weakness) Neurologic: Yes (stroke ) Psychiatric: No Reproductive: No Respiratory: Yes Immunizations Current: Yes Pancreatitis: Yes Radiation Therapy: Yes Sleep Apnea: Yes Thyroid Disease: No Triglycerides - High: Yes PNEUMOCCOCAL Vaccine (Year): 2 ?: Not Menopausal: Yes : 3 Para: 2 Miscarriage: 1 : 0 Ectopic : No Ovarian Cysts: No Tubal Ligation: No Past Surgical History Abdominal Surgery: Yes (appendectomy, cholecystectomy) Appendectomy: Yes Body Medical Devices: wheel chair use and brought own to hospital Cardiac Surgery: Yes (pacemaker) Section: Yes (x1) Cholecystectomy: Yes Coronary Stent: Yes (L femoral stent x2) Oral Surgery: Yes (tonsillectomy) Pacemaker: Yes Tonsillectomy: Yes Other Surgery: Yes (port placed 2016, appendectomy, cholecystectomy, tonsillectomy) Social History Alcohol Use: No Tobacco Use: No Substance Use: No Allergies-Medications (Allergen,Severity, Reaction): Coded Allergies: MRI PRECAUTION (Verified Adverse Reaction, Severe, PACEMAKER IS NOT A BIOTRONIK OR MEDTRONIC 06/15/16 KMD, 04/26/18) PACEMAKER IS NOT A BIOTRONIK OR MEDTRONIC CONDITIONAL PACEMAKER. CALLED BOTH COMPANIES TO CONFIRM. metformin (Verified Adverse Reaction, Severe, DIARRHEA, 04/26/18) morphine (Verified Adverse Reaction, Severe, Dizziness, 04/26/18) oxycodone (Verified Adverse Reaction, Severe, Nausea/Vomiting, 04/26/18) prochlorperazine (Verified Adverse Reaction, Severe, ANXIETY, 04/26/18) ANXIETY Reported Meds & Prescriptions Reported Meds & Active Scripts Active Bactrim DS (Sulfamethoxazole-Trimethoprim) 800-160 Mg Tab 1 Tab PO BID Fludrocortisone (Fludrocortisone Acetate) 0.1 Mg Tab 0.1 Mg PO DAILY Midodrine 5 Mg Tab 5 Mg PO TID@0700,1500,1700 Gabapentin 400 Mg Cap 400 Mg PO TID Reported Levemir Inj (Insulin Detemir) 1,000 unit/ 10 ML Vial 5 Units SQ BID Do not mix with any other Insulin. Review of Systems Except as stated in HPI: all other systems reviewed are Neg General / Constitutional: No: Fever, Chills Cardiovascular: No: Chest Pain or Discomfort Respiratory: No: Shortness of Breath Gastrointestinal: Positive: Nausea, Vomiting, Abdominal Pain, No: Diarrhea Genitourinary: No: Urgency, Frequency, Dysuria Physical Exam Narrative GENERAL: Awake and alert and in no acute distress. SKIN: warm/dry. HEAD: Normocephalic. EYES: Pupils equal and round. Extraocular movements are intact. ENT: Mucous membranes pink and moist. NECK: Supple. Full range of motion without pain.. CARDIOVASCULAR: Regular rate and rhythm. Heart sounds normal. RESPIRATORY: No accessory muscle use. Clear to auscultation. Breath sounds equal bilaterally. Port on the right chest. GASTROINTESTINAL: Abdomen soft. Nontender. Bowel sounds present. Nondistended. MUSCULOSKELETAL: No obvious deformities. Normal muscle tone. NEUROLOGICAL: Awake and alert. No obvious cranial nerve deficits. Motor grossly within normal limits. Normal speech. PSYCHIATRIC: Appropriate mood and affect; insight and judgment normal. Data Data Last Documented VS Vital Signs Date Time Temp Pulse Resp B/P (MAP) Pulse Ox O2 Delivery O2 Flow Rate FiO2 04/26/18 10:06 18 97 Room Air 04/26/18 09:42 99.3 6/21/18 09:34 74 Orders Orders Complete Blood Count With Diff (04/26/18 09:48) Comprehensive Metabolic Panel (04/26/18 09:48) Lipase (04/26/18 09:48) Urinalysis - C+S If Indicated (04/26/18 09:48) Iv Access Insert/Monitor (04/26/18 09:48) Ecg Monitoring (04/26/18 09:48) Oximetry (04/26/18 09:48) Sodium Chloride 0.9% Flush (Ns Flush) (04/26/18 10:00) Dicyclomine Inj (Bentyl Inj) (04/26/18 10:00) Cath For Specimen (04/26/18 10:54) Labs Laboratory Tests Test 04/26/18 09:57 04/26/18 11:10 White Blood Count 4.3 TH/MM3 Red Blood Count 3.74 MIL/MM3 Hemoglobin 10.7 GM/DL Hematocrit 32.5 % Mean Corpuscular Volume 86.9 FL Mean Corpuscular Hemoglobin 28.6 PG Mean Corpuscular Hemoglobin Concent 32.9 % Red Cell Distribution Width 14.3 % Platelet Count 230 TH/MM3 Mean Platelet Volume 8.2 FL Neutrophils (%) (Auto) 63.5 % Lymphocytes (%) (Auto) 23.3 % Monocytes (%) (Auto) 9.6 % Eosinophils (%) (Auto) 2.7 % Basophils (%) (Auto) 0.9 % Neutrophils # (Auto) 2.7 TH/MM3 Lymphocytes # (Auto) 1.0 TH/MM3 Monocytes # (Auto) 0.4 TH/MM3 Eosinophils # (Auto) 0.1 TH/MM3 Basophils # (Auto) 0.0 TH/MM3 CBC Comment DIFF FINAL Differential Comment Blood Urea Nitrogen 12 MG/DL Creatinine 1.40 MG/DL Random Glucose 137 MG/DL Total Protein 7.6 GM/DL Albumin 3.6 GM/DL Calcium Level 9.4 MG/DL Alkaline Phosphatase 110 U/L Aspartate Amino Transf (AST/SGOT) 20 U/L Alanine Aminotransferase (ALT/SGPT) 23 U/L Total Bilirubin 0.4 MG/DL Sodium Level 138 MEQ/L Potassium Level 4.3 MEQ/L Chloride Level 104 MEQ/L Carbon Dioxide Level 26.3 MEQ/L Anion Gap 8 MEQ/L Estimat Glomerular Filtration Rate 40 ML/MIN Lipase 106 U/L Urine Color YELLOW Urine Turbidity HAZY Urine pH 6.0 Urine Specific [place] 1.016 Urine Protein NEG mg/dL Urine Glucose (UA) NEG mg/dL Urine Ketones NEG mg/dL Urine Occult Blood NEG Urine Nitrite NEG Urine Bilirubin NEG Urine Urobilinogen 2.0 mg/dL Urine Leukocyte Esterase SMALL Urine RBC 1 /hpf Urine WBC 2 /hpf Urine Squamous Epithelial Cells 10 /hpf Urine Transitional Epithelial Cells 1 /hpf Urine Hyaline Casts 10 /lpf Urine Mucus FEW /lpf Microscopic Urinalysis Comment CULT NOT INDICATED MDM Medical Decision Making Medical Screen Exam Complete: Yes Emergency Medical Condition: Yes Medical Record Reviewed: Yes (PMH of pharyngeal CA, HTN, HL, DM, osteo R foot, gastroparesis, hep C) Differential Diagnosis Differential diagnosis of abdominal pain includes but is not limited to gastritis, pancreatitis, hepatitis, gastroenteritis, constipation, urinary retention, peptic ulcer disease, diverticulitis or appendicitis Narrative Course Patient presents with a 2 day history of abdominal pain. Abdominal pain workup is in process. She does have a pretty benign exam. She has got some tenderness in the lower abdomen but no guarding or rebound. She does not look like she is in any distress. CBC & BMP Diagram 04/26/18 09:57 Total Protein 7.6, Albumin 3.6, Calcium Level 9.4, Alkaline Phosphatase 110, Aspartate Amino Transf (AST/SGOT) 20, Alanine Aminotransferase (ALT/SGPT) 23, Total Bilirubin 0.4, Lipase 106 UA is negative for infection The history, exam, diagnostic testing, and current condition do not suggest any significant pathology to warrant further testing, continued ED treatment, admission, or surgical evaluation at this point. No EMC was found. The patient 's condition is stable and appropriate for discharge. Diagnosis Primary Impression: Abdominal pain Qualified Codes: R10.84 - Generalized abdominal pain Additional Impression: Nausea and vomiting Qualified Codes: R11.2 - Nausea with vomiting, unspecified Patient Instructions: Abdominal Pain (ED), General Instructions Disposition: 01 DISCHARGE HOME Condition: Stable Keyana Siu MD Apr 26, 2018 10:04
[2018-04-26 10:06] VITALS: RESP 18; O2SAT 97
[2018-04-26 10:16] LABS: AUTOMATED NEUTROPHIL # 2.7 TH/MM3 (1.8-7.7); BASOPHIL % 0.9 % (0.0-2.0); EOSINOPHIL # 0.1 TH/MM3 (0-0.4); EOSINOPHIL % 2.7 % (0.0-4.0); HEMATOCRIT 32.5 % (35.0-46.0); HEMOGLOBIN 10.7 GM/DL (11.6-15.3); LYMPH % 23.3 % (9.0-44.0); MEAN CELL VOLUME 86.9 FL (80.0-100.0); MEAN CORPUSCULAR HEMOGLOBIN 28.6 PG (27.0-34.0); MEAN CORPUSCULAR HGB CONC 32.9 % (32.0-36.0); MEAN PLATELET VOLUME 8.2 FL (7.0-11.0); MONO % 9.6 % (0.0-8.0); MONOCYTE # 0.4 TH/MM3 (0-0.9); NEUT % 63.5 % (16.0-70.0); PLATELET COUNT 230 TH/MM3 (150-450); RED BLOOD COUNT 3.74 MIL/MM3 (4.00-5.30); RED CELL DISTRIBUTION WIDTH 14.3 % (11.6-17.2); WHITE BLOOD COUNT 4.3 TH/MM3 (4.0-11.0)
[2018-04-26 10:41] LABS: ALBUMIN 3.6 GM/DL (3.4-5.0); ALT (GPT) 23 U/L (10-53); AST (GOT) 20 U/L (15-37); BICARBONATE 26.3 MEQ/L (21.0-32.0); BLOOD UREA NITROGEN 12 MG/DL (7-18); CALCIUM 9.4 MG/DL (8.5-10.1); CHLORIDE 104 MEQ/L (98-107); GLOMERULAR FILTRATION RATE 40 ML/MIN (>89); GLUCOSE,RANDOM 137 MG/DL (74-106); SODIUM (NA) 138 MEQ/L (136-145)
[2018-04-26 10:47] LABS: ALKALINE PHOSPHATASE 110 U/L (45-117); TOTAL BILIRUBIN ADULT 0.4 MG/DL (0.2-1.0); TOTAL PROTEIN 7.6 GM/DL (6.4-8.2)
[2018-04-26 11:27] LABS: BILIRUBIN, URINE NEG (NEG); BLOOD, URINE NEG (NEG); GLUCOSE,URINE NEG (NEG); HYALINE CAST, URINE 10 /lpf (RARE); KETONE, URINE NEG (NEG); MUCUS URINE FEW /lpf (OCC); NITRITE,URINE NEG (NEG); SQUAMOUS EPITHELIAL CELL URINE 10 /hpf (0-5); TRANSITIONAL EPI CELLS, URINE 1 /hpf; URINE COLOR YELLOW (YELLW/STRAW); URINE LEUKOCYTE ESTERASE SMALL (NEG)
== END 2018-04-26 14:37 | disposition home or self-care (01) ==
LOC: NEPE 09:20 → NEDAMB 14:37
DX: R10.84 Generalized abdominal pain (principal); R11.2 Nausea with vomiting, unspecified; J45.909 Unspecified asthma, uncomplicated; I48.91 Unspecified atrial fibrillation; I10 Essential (primary) hypertension; I69.959 Hemiplegia and hemiparesis following unspecified cerebrovascular disease affecting unspecified side; G47.30 Sleep apnea, unspecified; Z79.4 Long term (current) use of insulin; Z79.899 Other long term (current) drug therapy; Z88.5 Allergy status to narcotic agent; Z88.8 Allergy status to other drugs, medicaments and biological substances; Z86.73 Personal history of transient ischemic attack (TIA), and cerebral infarction without residual deficits; Z86.19 Personal history of other infectious and parasitic diseases; Z87.442 Personal history of urinary calculi; Z87.19 Personal history of other diseases of the digestive system
CPT/HCPCS: 80053; 81001; 83690; 85025; 96372; 99284; J0500; J1642

== ENCOUNTER 2018-10-09 07:13 | Inpatient (IN) ==
[2018-10-09] MEDS ORDERED: Piperacil/Tazo 4.5 GM Premix 4.5 GM/100 ML BAG IV.SIG ONE (07:36)
[2018-10-09] MEDS ORDERED: Vancomycin Inj 1,000 MG in Sodium Chlor 0.9% Inj 250 ML IV.SIG ONE (07:36)
--- NOTE | 2018-10-09 07:53 | ED ---
HPI General Chief complaint: Skin/Abscess/Foreign Body Stated complaint: LEG PAIN Time Seen by Provider: 10/09/18 07:25 Source: patient Mode of arrival: ambulatory Limitations: no limitations History of Present Illness HPI narrative: 53-year-old female states that she developed left leg pain and redness yesterday. She does not know how long she has had the wound to her right lower leg near her ankle. She states that she has not had other complaints that she knows about but has not checked her temperature. She states that after I examined her other foot that the stitches are from [place] where she had a toe removed. She states she was just visiting there and lives here. She states she has not checked her sugars in multiple months so she does not know what it is really. History is limited based on patient being a poor historian and cannot elicit further details then the above. Related Data Home Medications Medication Instructions Recorded Confirmed gabapentin 400 mg PO TID 05/12/18 12 insulin detemir U-100 [Levemir 5 unit SUB-Q QPM 05/12/18 10/09/18 U-100 Insulin] midodrine 5 mg PO TID 05/12/18 1218 Allergies Allergy/AdvReac Type Severity Reaction Status Date / Time metformin AdvReac Severe DIARRHEA Verified 10/09/18 07:18 morphine AdvReac Severe Dizziness Verified 10/09/18 07:18 oxycodone AdvReac Severe Nausea/Vomi Verified 10/09/18 07:18 ting prochlorperazine AdvReac Severe ANXIETY Verified 10/09/18 07:18 MRI PRECAUTION AdvReac Severe PACEMAKER Uncoded 10/09/18 07:18 IS NOT A BIOTRONIK OR MEDTRONIC 06/15/16 KMD Review of Systems ROS: all other systems reviewed are negative [facility] Medical History Medical History Amputated toe of right foot (Acute) Asthma (Acute) delivery delivered (Acute) Diabetes (Acute) Hep C w/o coma, chronic (Acute) Hypertension (Acute) Hypotension (Acute) Neuropathy (Acute) Stenosis of left femoral artery (Acute) Surgical History Surgical History History of tonsillectomy (Acute) Hx of appendectomy (Acute) Social History Social History Substance History: Past History Second Hand Smoke Exposure: No Smoking Status: Former smoker How Often Do You Have a Drink Containing Alcohol: Never Recent Travel in [facility] within the Last 8 Weeks: No Recent Out of Country Travel within the Last 8 Weeks: No Immunization History Tetanus Immunization: Unsure Exam Narrative Exam Narrative: GENERAL: 53 y/o female in no apparent distress SKIN: Patient has erythema and warmth from just below the knee to the anterior aspect of her left lower leg that goes down into her foot. She has a wound noted near her ankle that has a small amount of drainage that was cultured, sutures are well healing noted to left foot HEAD: Atraumatic. Normocephalic. EYES: Pupils equal and round. No scleral icterus. No injection or drainage. ENT: No nasal bleeding or discharge. Mucous membranes pink and moist. NECK: Trachea midline. No JVD. CARDIOVASCULAR: Regular rate and rhythm. RESPIRATORY: No accessory muscle use. GASTROINTESTINAL: Abdomen soft, non-tender, nondistended. MUSCULOSKELETAL: Patient has swelling noted to her left lower leg that goes into her foot, patient has weak but palpable posterior tibialis pulse. Patient has pain noted to right calf area without specific joint tenderness NEUROLOGICAL: Awake and alert. Moves all extremities. Normal speech. PSYCHIATRIC: Appropriate mood and affect; insight and judgment normal. Course Reevaluation(s) Reevaluation #1: Patient found to have UTI which will be covered by antibiotics given for extensive cellulitis. She without significant signs of sepsis other than tachycardia but given large area and diabetes she will need to be admitted for further care. Consultations Consultation #1: dr gandhi agrees to admit Initial Documented Vital Signs Temperature 99.8 F H 10/09/18 07:14 Pulse Rate 86 10/09/18 07:14 Respiratory Rate 18 10/09/18 07:14 Blood Pressure 123/70 10/09/18 07:14 Pulse Oximetry 99 10/09/18 07:14 Last Documented Vital Signs Temperature 99.8 F H 10/09/18 07:14 Pulse Rate 95 H 10/09/18 07:30 Respiratory Rate 18 10/09/18 07:30 Blood Pressure 149/77 H 10/09/18 07:30 Pulse Oximetry 99 10/09/18 07:51 Medical Decision Making [facility] Narrative Medical decision making narrative: Will work, x-ray, ultrasound and dose with vancomycin and Zosyn and patient will likely need admission for extensive cellulitis and risk for progressive infection Medical Screen Exam Complete: Yes Emergency Medical Condition: Yes Differential Diagnosis Differential Diagnosis: DVT, cellulitis, sepsis, abscess Lab Data Lab results reviewed: Yes I reviewed the patient's lab results. Result diagrams: 10/09/18 07:39 10/09/18 07:39 Lab Results 10/09/18 10/09/18 10/09/18 Range/Units 07:39 07:39 07:39 WBC 6.2 (4.0-11.0) th/mm3 RBC 3.62 L (4.00-5.30) mil/mm3 Hgb 10.0 L (11.6-15.3) gm/dL Hct 30.1 L (35.0-46.0) % MCV 83.1 (80.0-100.0) fL MCH 27.8 (27.0-34.0) pg MCHC 33.4 (32.0-36.0) % RDW 14.5 (11.6-17.2) % Plt Count 194 (150-450) th/mm3 MPV 8.1 (7.0-11.0) fL Neut % (Auto) 78.6 H (16.0-70.0) % Lymph % (Auto) 10.8 (9.0-44.0) % [place] % (Auto) 9.9 H (0.0-8.0) % Eos % (Auto) 0.4 (0.0-4.0) % Baso % (Auto) 0.3 (0.0-2.0) % Neut # (Auto) 4.9 (1.8-7.7) th/mm3 Lymph # (Auto) 0.7 L (1.0-4.8) th/mm3 [place] # (Auto) 0.6 (0.0-0.9) th/mm3 Eos # (Auto) 0.0 (0.0-0.4) th/mm3 Baso # (Auto) 0.0 (0.0-0.2) th/mm3 WBC Differential . Differential Comment Auto diff final PT 9.7 L (9.8-11.6) sec INR 1.0 Ratio APTT 27.5 (23.4-31.7) sec Sodium 132 L (136-145) meq/L Potassium 4.0 (3.5-5.1) meq/L Chloride 97 L (98-107) meq/L Carbon Dioxide 31.2 (21.0-32.0) meq/L Anion Gap 4 L (5-15) meq/L BUN 17 (7-18) mg/dL Creatinine 0.75 (0.50-1.00) mg/dL Estimated GFR 81 L (>89) mL/min Random Glucose 253 H (74-106) mg/dL Lactic Acid (0.4-2.0) mmol/L Calcium 9.6 (8.5-10.1) mg/dL Magnesium 1.5 (1.5-2.5) mg/dL Total Bilirubin 0.4 (0.2-1.0) mg/dL AST 11 L (15-37) U/L ALT 18 (10-53) U/L Alkaline Phosphatase 93 (45-117) U/L Total Protein 7.5 (6.4-8.2) g/dL Albumin 2.7 L (3.4-5.0) g/dL Urine Color (Yellw/Straw) Urine Clarity (Clear) Urine pH (5.0-8.5) Ur Specific [place] (1.002-1.035) Urine Protein (Neg-Trace) mg/dL Urine Glucose (UA) (Negative) mg/dL Urine Ketones (Negative) mg/dL Urine Occult Blood (Negative) Urine Nitrate (Negative) Urine Bilirubin (Negative) Urine Urobilinogen (Less than 2) mg/dL Ur Leukocyte Esterase (Negative) Urine RBC (0-3) /hpf Urine WBC (0-5) /hpf Ur Squamous Epith Cells (0-5) /hpf Urine Bacteria (None) /hpf Urine Mucus (Occasional) /lpf Micro UA Comment Ur Microscopic Review Urine Culture Comments 10/09/18 10/09/18 Range/Units 07:40 08:14 WBC (4.0-11.0) th/mm3 RBC (4.00-5.30) mil/mm3 Hgb (11.6-15.3) gm/dL Hct (35.0-46.0) % MCV (80.0-100.0) fL MCH (27.0-34.0) pg MCHC (32.0-36.0) % RDW (11.6-17.2) % Plt Count (150-450) th/mm3 MPV (7.0-11.0) fL Neut % (Auto) (16.0-70.0) % Lymph % (Auto) (9.0-44.0) % [place] % (Auto) (0.0-8.0) % Eos % (Auto) (0.0-4.0) % Baso % (Auto) (0.0-2.0) % Neut # (Auto) (1.8-7.7) th/mm3 Lymph # (Auto) (1.0-4.8) th/mm3 [place] # (Auto) (0.0-0.9) th/mm3 Eos # (Auto) (0.0-0.4) th/mm3 Baso # (Auto) (0.0-0.2) th/mm3 WBC Differential Differential Comment PT (9.8-11.6) sec INR Ratio APTT (23.4-31.7) sec Sodium (136-145) meq/L Potassium (3.5-5.1) meq/L Chloride (98-107) meq/L Carbon Dioxide (21.0-32.0) meq/L Anion Gap (5-15) meq/L BUN (7-18) mg/dL Creatinine (0.50-1.00) mg/dL Estimated GFR (>89) mL/min Random Glucose (74-106) mg/dL Lactic Acid 1.2 (0.4-2.0) mmol/L Calcium (8.5-10.1) mg/dL Magnesium (1.5-2.5) mg/dL Total Bilirubin (0.2-1.0) mg/dL AST (15-37) U/L ALT (10-53) U/L Alkaline Phosphatase (45-117) U/L Total Protein (6.4-8.2) g/dL Albumin (3.4-5.0) g/dL Urine Color Yellow (Yellw/Straw) Urine Clarity Cloudy H (Clear) Urine pH 7.0 (5.0-8.5) Ur Specific [place] 1.011 (1.002-1.035) Urine Protein Negative (Neg-Trace) mg/dL Urine Glucose (UA) 150 H (Negative) mg/dL Urine Ketones Negative (Negative) mg/dL Urine Occult Blood Negative (Negative) Urine Nitrate Positive H (Negative) Urine Bilirubin Negative (Negative) Urine Urobilinogen Less than 2 (Less than 2) mg/dL Ur Leukocyte Esterase Small H (Negative) Urine RBC Less than 1 (0-3) /hpf Urine WBC 10 H (0-5) /hpf Ur Squamous Epith Cells 6 (0-5) /hpf Urine Bacteria Many H (None) /hpf Urine Mucus Few H (Occasional) /lpf Micro UA Comment Culture indicated Ur Microscopic Review Not Reportable Urine Culture Comments Culture indicated Imaging Data Attestation: I personally reviewed and interpreted this imaging study as follows : Radiologist's impression: Venous Doppler Study 10/09/18 07:25 CONCLUSION: 1. No sonographic evidence for left lower extremity DVT. 2. Nonspecific mild left inguinal adenopathy. Tibia/Fibula X-Ray 10/09/18 07:30 CONCLUSION: Soft tissue swelling. Chest X-Ray 10/09/18 07:31 CONCLUSION: No acute cardiopulmonary abnormality is identified. Discharge Plan Discharge Disposition Patient Disposition: ED Admit(ED Internal Use Only) Discharge Order Discharge Orders: ED Use Only Admit Order (Routine); Ordered 10/09/18 Ordered By: Kendra Cage Discharge Details Diagnosis: Cellulitis, UTI (urinary tract infection) Physicians Team ED Provider: Kendra Cage Primary Care Provider: Primary Care Miguel,Angela Attending Provider: Sheree Shaikh Discharge Interventions Interventions: Vital Signs Last Done: 10/09/18 07:30 Status ED Status: Admitted Patient
[2018-10-09 07:56] LABS: Baso % (Auto) 0.3 % (0.0-2.0); Eos % (Auto) 0.4 % (0.0-4.0); Hematocrit 30.1 % (35.0-46.0); Lymph # (Auto) 0.7 th/mm3 (1.0-4.8); Lymph % (Auto) 10.8 % (9.0-44.0); Mean Corpuscular HGB Conc 33.4 % (32.0-36.0); Mean Corpuscular Hemoglobin 27.8 pg (27.0-34.0); Mean Corpuscular Volume 83.1 fL (80.0-100.0); Mean Platelet Volume 8.1 fL (7.0-11.0); Mono # (Auto) 0.6 th/mm3 (0.0-0.9); Mono % (Auto) 9.9 % (0.0-8.0); Neut # (Auto) 4.9 th/mm3 (1.8-7.7); Neut % (Auto) 78.6 % (16.0-70.0); Platelet Count 194 th/mm3 (150-450); Red Blood Count 3.62 mil/mm3 (4.00-5.30); Red Cell Distribution Width 14.5 % (11.6-17.2); White Blood Count 6.2 th/mm3 (4.0-11.0)
[2018-10-09 08:01] LABS: Activated Partial Thrombo Time 27.5 sec (23.4-31.7); Prothrombin Time 9.7 sec (9.8-11.6)
[2018-10-09 08:14] LABS: Albumin 2.7 g/dL (3.4-5.0); Anion Gap 4 meq/L (5-15); Aspartate Aminotransferase 11 U/L (15-37); Blood Urea Nitrogen 17 mg/dL (7-18); Calcium 9.6 mg/dL (8.5-10.1); Carbon Dioxide 31.2 meq/L (21.0-32.0); Chloride 97 meq/L (98-107); Glomerular Filtration Rate 81 mL/min (>89); Glucose,Random 253 mg/dL (74-106); Magnesium 1.5 mg/dL (1.5-2.5); Sodium 132 meq/L (136-145)
[2018-10-09 08:15] LABS: Alanine Aminotransferase 18 U/L (10-53)
--- NOTE | 2018-10-09 08:15 | US ---
EXAM DATE: 10/09/2018 8:07 AM EST AGE/SEX: 53 years / Female INDICATIONS: Left leg pain. CLINICAL DATA: This is the patient's subsequent encounter. Patient reports that signs and symptoms h ave been present for 1 day and indicates a pain score of 10/10. MEDICAL/SURGICAL HISTORY: . Diabetic. Hepatitis C. . Toe amputation. COMPARISON: [facility] [place], US LEG LEFT VENOUS DOPPLER, 08/25/2016. . TECHNIQUE: Venous ultrasound of both lower extremities was performed from the inguinal ligament to t he proximal calf. Real-time, color Doppler and spectral tracing, compression and augmentation techni ques were used. FINDINGS: Normal compression of the deep venous system from the inguinal region to the proximal calf . No echogenic clot is seen. Normal response of the venous system to augmentation and respiration. Se veral slightly enlarged inguinal nodes measuring up to 1.7 cm. CONCLUSION: 1. No sonographic evidence for left lower extremity DVT. 2. Nonspecific mild left inguinal adenopathy. Electronically signed by: Yakov Pickett MD 10/09/2018 8:14 AM EST
[2018-10-09 08:17] LABS: Alkaline Phosphatase 93 U/L (45-117); Total Protein 7.5 g/dL (6.4-8.2)
[2018-10-09 08:33] LABS: Bacteria,Urine Many /hpf; Bilirubin,Urine Negative (Negative); Clarity,Urine Cloudy (Clear); Color,Urine Yellow (Yellw/Straw); Glucose,Urine (UA) 150 mg/dL (Negative); Leukocyte Esterase,Urine Small (Negative); Mucus,Urine Few /lpf (Occasional); Nitrite,Urine Positive (Negative); Specific Gravity,Urine 1.011 (1.002-1.035); Squamous Epithelial Cell,Urine 6 /hpf (0-5)
--- NOTE | 2018-10-09 08:57 | XR ---
EXAM DATE: 10/09/2018 8:47 AM EST AGE/SEX: 53 years / Female INDICATIONS: Fever x 3 days. CLINICAL DATA: This is the patient's initial encounter. Patient reports that signs and symptoms have been present for 1 day and indicates a pain score of 6/10. MEDICAL/SURGICAL HISTORY: . Pancreatitis. Diabetes. Hepatitis C. Cardiovascular disease, Hypert ension, throat cancer . Appendectomy. Pacemaker. Cholecystectomy. Mastectomy, COMPARISON: [facility] [place] AP, 03/22/2018. . FINDINGS: Portable AP view of the chest demonstrates a normal size cardiac silhouette. EKG lines overlie the pa tient. Right chest wall [id number] and left chest wall pacing device remain present. Lungs are mil dly underinflated but no effusion, consolidation, or pneumothorax is identified. The bones and soft t issues demonstrate no acute finding. CONCLUSION: No acute cardiopulmonary abnormality is identified. Electronically signed by: Rc Amezcua MD 10/09/2018 8:56 AM EST
--- NOTE | 2018-10-09 09:02 | XR ---
EXAM DATE: 10/09/2018 8:50 AM EST AGE/SEX: 53 years / Female INDICATIONS: Left lower leg pain and swelling. CLINICAL DATA: This is the patient's initial encounter. Patient reports that signs and symptoms have been present for 1 day and indicates a pain score of 7/10. MEDICAL/SURGICAL HISTORY: . Pancreatitis. Diabetes. Hepatitis C. Cardiovascular disease, Hypert ension, Throat cancer . Appendectomy. Pacemaker. Cholecystectomy. Mastectomy, COMPARISON: [facility], ANKLE COMPLETE LEFT MIN 3V, 06/20/2018. . FINDINGS: A fracture is not seen. The knee and ankle joints are normally aligned. There is soft tissue swelling seen at the ankle. Vascular calcifications are seen in the lower leg. CONCLUSION: Soft tissue swelling. Electronically signed by: Rc Mccain MD 10/09/2018 9:01 AM EST
[2018-10-09] MEDS ORDERED: Vancomycin Consult Pharmacy OTHER PRN (09:55)
[2018-10-09] MEDS ORDERED: Dextrose 50% in Water 50 ML Vial IV.PUSH PRN (09:57)
--- NOTE | 2018-10-09 10:11 | P.HPIM ---
History of Present Illness Primary Care Physician: No Primary Care Physician Chief Complaint: infection of the left leg History of Present Illness: patient is a 53 y/o female with history of diabetes, hepatitis C, PVD, s/p pacemaker, s/p recent amputation of the right fourth toe,asthma,throat cancer, hypotension, presented to ER with redness and swelling of the left leg. she says that this was first noticed by her friend last night. she says that 'she tried to keep her leg up last night' but this didn't help her with the swelling. she had some chills but with no fever. she says that she had amputation of her right fourth toe about two weeks ago. Inpatient Certification: I certify that the inpatient services were ordered in accordance with Medicare regulations governing the order. This includes certification that hospital inpatient services are reasonable and necessary and in the case of services not specified as inpatient-only under 42 CFR 419.22(n), that they are appropriately provided as inpatient services in accordance to with the 2-midnight benchmark under 43 CFR 412.3(e) Estimated Total Length of Stay (Days): 2 Plans for Post Hospital Care: Home Review of Systems All other systems reviewed negative except as stated in HPI PMFSH - History History Provided By: Patient - Medical History Medical History: Medical History (Last Reviewed 10/09/18 @ 10:06 by Sheree Shaikh MD) Amputated toe of right foot Asthma delivery delivered Diabetes Hep C w/o coma, chronic Hypertension Hypotension Neuropathy Stenosis of left femoral artery - Surgical History Surgical History: Surgical History (Last Reviewed 10/09/18 @ 10:06 by Sheree Shaikh MD) History of tonsillectomy Hx of appendectomy - Family History Family History: Family History (Last Updated 10/09/18 @ 10:06 by Sheree Shaikh MD) Other Heart disease - Tobacco History Second Hand Smoke Exposure: No Smoking Status: Former smoker - Alcohol History How Often Do You Have a Drink Containing Alcohol: Never - Substance Use History Substance History: Past History - Travel History Recent Travel in the [place] Within the Last 8 Weeks: No Recent Travel Out of the Country Within the Last 8 Weeks: No - Immunization History Tetanus Immunization: Unsure Medications and Allergies Active Medications: Active Medications Acetaminophen (Tylenol) 650 mg PO Q4H PRN PRN Reason: fever/pain Dextrose (D50w Vial) 50 ml IV.PUSH UNSCH PRN PRN Reason: PER HYPOGLYCEMIA PROTOCOL Enoxaparin Sodium (Lovenox Inj) 40 mg SQ DAILY JAXON Gabapentin (Neurontin) 400 mg PO TID JAXON Glucagon (Glucagon Inj) 1 mg OTHER PRN PRN PRN Reason: for Hypoglycemia Protocol Piperacillin/Tazobactam/Dextrose (Zosyn 3.375 Gm Premix) 50 mls @ 100 mls/hr IV.SIG Q8H JAXON Insulin Aspart (Novolog Insulin Correctional Sugar Inj) 0 unit SQ ACHS JAXON; Protocol Midodrine (Proamatine) 5 mg PO TID [facility] Pharmacy Profile Note (Vancomycin Consult Pharmacy) 1 each OTHER UNSCH PRN PRN Reason: Pharmacy to dose Allergies Allergy/AdvReac Type Severity Reaction Status Date / Time metformin AdvReac Severe DIARRHEA Verified 10/09/18 07:18 morphine AdvReac Severe Dizziness Verified 10/09/18 07:18 oxycodone AdvReac Severe Nausea/Vomi Verified 10/09/18 07:18 ting prochlorperazine AdvReac Severe ANXIETY Verified 10/09/18 07:18 MRI PRECAUTION AdvReac Severe PACEMAKER Uncoded 10/09/18 07:18 IS NOT A NoiseFreeRONIK OR MEDTRONIC 06/15/16 KMD Home Medications Medication Instructions Recorded Confirmed Type gabapentin 400 mg PO TID 05/12/18 10/09/18 History insulin detemir U-100 [Levemir 5 unit SUB-Q QPM 05/12/18 10/09/18 History U-100 Insulin] midodrine 5 mg PO TID 05/12/18 10/09/18 History Exam Vital signs: Vital Signs 10/09/18 07:14 10/09/18 07:30 10/09/18 07:51 Temperature 99.8 F H Pulse Rate 86 95 H Respiratory Rate 18 18 Blood Pressure 123/70 149/77 H Pulse Oximetry 99 99 99 10/09/18 09:57 Temperature Pulse Rate 96 H Respiratory Rate 20 Blood Pressure 169/79 H Pulse Oximetry 99 Intake & Output 10/08/18 10/09/18 10/09/18 18:59 06:59 18:59 Intake Total 350 / 350 Balance 350 / 350 Weight 68.039 kg Intake: IV 350 / 350 Zosyn 4.5 GM Premix 4.5 gm In 100 / 100 100 ml @ 200 mls/hr IV.SIG ONCE ONE Rx#:[id number] Vancomycin Inj 1,000 MG In NS 250 / 250 Inj 250 ML @ 250 mls/hr IV.SIG ONCE ONE Rx#:[id number] - Constitutional no acute distress - Routine HEENT Exam Eye: Present: PERRL - Routine Neck Exam Present: supple - Routine Respiratory Exam Present: CTA bilaterally - Routine Cardiovascular Exam Present: RRR - Routine Abdominal Exam Present: soft - Routine Extremities Exam Comments: erythema and swelling noted on the left leg from the left ankle upto the upper left leg. - Routine Skin Exam Present: erythema (the left leg.) - Routine Neurological Exam Present: alert, oriented X3 Results - Labs CBC & Chem 7: 10/09/18 07:39 10/09/18 07:39 Labs: Short CBC 10/09/18 Range/Units 07:39 WBC 6.2 (4.0-11.0) th/mm3 Hgb 10.0 L (11.6-15.3) gm/dL Hct 30.1 L (35.0-46.0) % Plt Count 194 (150-450) th/mm3 BMP 10/09/18 07:39 Sodium 132 L Potassium 4.0 Chloride 97 L Carbon Dioxide 31.2 BUN 17 Creatinine 0.75 Calcium 9.6 Liver Function 10/09/18 Range/Units 07:39 Total Bilirubin 0.4 (0.2-1.0) mg/dL AST 11 L (15-37) U/L ALT 18 (10-53) U/L Alkaline Phosphatase 93 (45-117) U/L Albumin 2.7 L (3.4-5.0) g/dL Urine 10/09/18 Range/Units 08:14 Urine Color Yellow (Yellw/Straw) Urine Clarity Cloudy H (Clear) Urine pH 7.0 (5.0-8.5) Ur Specific [place] 1.011 (1.002-1.035) Urine Protein Negative (Neg-Trace) mg/dL Urine Glucose (UA) 150 H (Negative) mg/dL - Imaging Impressions Venous Doppler Study 10/09/18 07:25 CONCLUSION: 1. No sonographic evidence for left lower extremity DVT. 2. Nonspecific mild left inguinal adenopathy. Tibia/Fibula X-Ray 10/09/18 07:30 CONCLUSION: Soft tissue swelling. Chest X-Ray 10/09/18 07:31 CONCLUSION: No acute cardiopulmonary abnormality is identified. Caprini VTE Risk Assessment Caprini VTE Risk Assessment: Moderate/High Risk (score >= 2) Caprini Risk Assessment Model: Point Value = 1 Point Value = 2 Point Value = 3 Point Value = 5 Age 41-60 Minor surgery BMI > 25 kg/m2 Swollen legs Varicose veins or History of unexplained or recurrent spontaneous Oral contraceptives or hormone replacement Sepsis (< 1 month) Serious lung disease, including pneumonia (< 1 month) Abnormal pulmonary function Acute myocardial infarction Congestive heart failure (< 1 month) History of inflammatory bowel disease Medical patient at bed rest Age 61-74 Arthroscopic surgery Major open surgery (> 45 min) Laparoscopic surgery (> 45 min) Malignancy Confined to bed (> 72 hours) Immobilizing plaster cast Central venous access Age >= 75 History of VTE Family history of VTE Factor V Leiden Prothrombin 17910M Lupus anticoagulant Anticardiolipin antibodies Elevated serum homocysteine Heparin-induced thrombocytopenia Other congenital or acquired thrombophilia Stroke (< 1 month) Elective arthroplasty Hip, pelvis, or leg fracture Acute spinal cord injury (< 1 month) Prophylaxis Regimen: Total Risk Factor Score Risk Level Prophylaxis Regimen 0-1 Low Early ambulation 2 Moderate Order ONE of the following: *Sequential Compression Device (SCD) *Heparin 5000 units SQ BID 3-4 Higher Order ONE of the following medications: *Heparin 5000 units SQ TID *Enoxaparin/Lovenox 40 mg SQ daily (WT < 150 kg, CrCl > 30 mL/min) *Enoxaparin/Lovenox 30 mg SQ daily (WT < 150 kg, CrCl > 10-29 mL/min) *Enoxaparin/Lovenox 30 mg SQ BID (WT < 150 kg, CrCl > 30 mL/min) AND/OR *Sequential Compression Device (SCD) 5 or more Highest Order ONE of the following medications: *Heparin 5000 units SQ TID (Preferred with Epidurals) *Enoxaparin/Lovenox 40 mg SQ daily (WT < 150 kg, CrCl > 30 mL/min) *Enoxaparin/Lovenox 30 mg SQ daily (WT < 150 kg, CrCl > 10-29 mL/min) *Enoxaparin/Lovenox 30 mg SQ BID (WT < 150 kg, CrCl > 30 mL/min) AND *Sequential Compression Device (SCD) Assessment and Plan - Plan A/P - left leg cellulitis venous doppler of the left leg negative for DVT. continue with broad-spectrum IV antibiotics and will follow the cultures. keep the left leg elevated. -UTI continue antibiotics and adjust based on the cultures. -diabetes mellitus start on accu-check with SSI. -history of hypotension; resume Midodrine -asthma with no acute exacerbation; neb treatment as needed. -DVT prophylaxis with subq lovenox. Discussed Condition With: ER physician and the patient. Discharge Planning: home when clinically stable.
[2018-10-09] MEDS: Sodium Chlor 0.9% Inj 500 ML IV.CONT SCH ×2 (11:31→20:39)
[2018-10-09] MEDS ORDERED: Sodium Chlor 0.9% Inj 500 ML IV.SIG SCH (12:00)
[2018-10-09] MEDS: Insulin NovoLOG Aspart Correctional Sugar Inj SQ SCH ×3 (17:26→20:49)
[2018-10-09] MEDS: Gabapentin 400 MG Capsule PO SCH ×2 (17:27→18:57)
[2018-10-09] MEDS: Piperacil/Tazo 3.375 GM Premix 50 ML IV.SIG SCH (18:54)
[2018-10-09] MEDS: Acetaminophen 325 MG Tablet PO PRN (18:56)
[2018-10-09] MEDS: Vancomycin Inj 1,000 MG in Sodium Chlor 0.9% Inj 250 ML IV.SIG SCH (20:28)
[2018-10-10] MEDS ORDERED: Sodium Chlor 0.9% Inj 500 ML IV.SIG SCH (01:00)
[2018-10-10] MEDS: Piperacil/Tazo 3.375 GM Premix 50 ML IV.SIG SCH ×3 (01:18→15:41)
[2018-10-10] MEDS: Sod Chloride 0.9% Inj 1,000 ML IV.CONT SCH ×3 (05:21→15:05)
[2018-10-10 07:21] LABS: Baso % (Auto) 0.5 % (0.0-2.0); Eos # (Auto) 0.1 th/mm3 (0.0-0.4); Eos % (Auto) 2.1 % (0.0-4.0); Hematocrit 23.9 % (35.0-46.0); Hemoglobin 7.9 gm/dL (11.6-15.3); Lymph # (Auto) 0.9 th/mm3 (1.0-4.8); Lymph % (Auto) 25.1 % (9.0-44.0); Mean Corpuscular Hemoglobin 27.8 pg (27.0-34.0); Mean Corpuscular Volume 84.1 fL (80.0-100.0); Mono # (Auto) 0.5 th/mm3 (0.0-0.9); Mono % (Auto) 13.5 % (0.0-8.0); Neut % (Auto) 58.8 % (16.0-70.0); Platelet Count 165 th/mm3 (150-450); Red Blood Count 2.84 mil/mm3 (4.00-5.30); Red Cell Distribution Width 14.8 % (11.6-17.2); White Blood Count 3.4 th/mm3 (4.0-11.0)
[2018-10-10 07:28] LABS: Anion Gap 6 meq/L (5-15); Blood Urea Nitrogen 9 mg/dL (7-18); Carbon Dioxide 30.9 meq/L (21.0-32.0); Chloride 104 meq/L (98-107); Glomerular Filtration Rate Greater Than 89 mL/min (>89); Glucose,Random 110 mg/dL (74-106); Potassium 3.7 meq/L (3.5-5.1); Sodium 141 meq/L (136-145)
[2018-10-10] MEDS: Vancomycin Inj 1,000 MG in Sodium Chlor 0.9% Inj 250 ML IV.SIG SCH ×2 (08:35→20:59)
[2018-10-10] MEDS: Insulin NovoLOG Aspart Correctional Sugar Inj SQ SCH ×4 (08:36→21:30)
[2018-10-10] MEDS: Gabapentin 400 MG Capsule PO SCH ×3 (08:41→17:42)
[2018-10-10] MEDS: Enoxaparin Inj 40 MG/0.4 ML Syringe SQ SCH (08:41)
--- NOTE | 2018-10-10 13:32 | P.PNIM ---
Subjective Interval history: Follow-up visit DM 2, hep C, PVD, PPM, recent amputation right 4th toe, left leg cellulitis. Patient seen and examined today. States that left lower extremity pain is significantly improved. States she does not feel the burning anymore. Continues to be swollen states she feels a lot better. Denies pain and discomfort. Denies SOB/ dyspnea. Denies chest pain, palpitations, headaches, dizziness. Denies fevers, chills, n/v/d. Denies dysuria. Physical Exam Vital signs: Vital Signs 10/09/18 16:00 10/09/18 18:59 10/09/18 20:00 Temperature 98.6 F 98.5 F Pulse Rate 101 H 63 93 H Respiratory Rate 18 18 Blood Pressure 176/89 H 130/69 Pulse Oximetry 100 98 10/09/18 22:00 10/10/18 00:00 10/10/18 00:30 Temperature 97.8 F Pulse Rate 83 86 79 Respiratory Rate 16 Blood Pressure 89/50 L Pulse Oximetry 96 10/10/18 01:37 10/10/18 02:44 10/10/18 03:11 Temperature 98.2 F Pulse Rate 77 88 Respiratory Rate 16 18 Blood Pressure 99/55 L 107/58 L Pulse Oximetry 96 10/10/18 04:00 10/10/18 04:30 10/10/18 05:17 Temperature 98.7 F Pulse Rate 76 76 Respiratory Rate 16 16 Blood Pressure 101/57 L Pulse Oximetry 97 10/10/18 08:00 Temperature 98.0 F Pulse Rate 89 Respiratory Rate 16 Blood Pressure 93/56 L Pulse Oximetry 98 Intake & Output 10/09/18 10/10/18 10/10/18 18:59 06:59 18:59 Intake Total 850 / 850 2099 / 2100 300 / 300 Balance 850 / 850 2099 / 2100 300 / 300 Weight 68.039 kg 64.1 kg Intake: IV 850 / 850 1850 / 1850 300 / 300 NS Inj 500 ML @ 50 mls/hr IV. 1000 / 1000 CONT .Q10H JAXON Rx#:[id number] Zosyn 3.375 GM Premix 50 ML @ 100 / 100 50 / 50 100 mls/hr IV.SIG Q8H JAXON Rx#: [id number] Zosyn 4.5 GM Premix 4.5 gm In 100 / 100 100 ml @ 200 mls/hr IV.SIG ONCE ONE Rx#:[id number] NS Inj 500 ML @ 1000 mls/hr IV. 500 / 500 500 / 500 SIG [facility] Rx#:[id number] Vancomycin Inj 1,000 MG In NS 250 / 250 250 / 250 250 / 250 Inj 250 ML @ 250 mls/hr IV.SIG Q12H JAXON Rx#:[id number] Other 250 / 250 Other: Other Intake Source Saline Solution # Voids 3 1 # Incontinent Voids 1 # Urine Diapers 1 Narrative: GENERAL: This is a well-nourished, well-developed patient, in no apparent distress. SKIN: Warm and dry. HEENT: Normocephalic. Pupils equal round and reactive. Nose without bleeding. Airway patent. NECK: Trachea midline. CARDIOVASCULAR: Regular rate and rhythm without murmurs, gallops, or rubs. RESPIRATORY: Clear to auscultation. Breath sounds equal bilaterally. No wheezes , rales, or rhonchi. GASTROINTESTINAL: Abdomen soft, non-tender, nondistended. Bowel Sounds normoactive x4. MUSCULOSKELETAL: Right toe 4th toe amputation with sutures clean dry and intact. Left lower extremity edema +3, erythema, no drainage noted. NEUROLOGICAL: Awake and alert. No focal neuro deficit. Moves all extremities. Normal speech. Results - Labs CBC & Chem 7: 10/10/18 05:32 10/10/18 05:32 Laboratory Results - last 24 hr 10/09/18 10/09/18 10/10/18 08:14 20:43 05:32 WBC 3.4 L RBC 2.84 L Hgb 7.9 L D Hct 23.9 L MCV 84.1 MCH 27.8 MCHC 33.0 RDW 14.8 Plt Count 165 MPV 8.0 Neut % (Auto) 58.8 Lymph % (Auto) 25.1 [place] % (Auto) 13.5 H Eos % (Auto) 2.1 Baso % (Auto) 0.5 Neut # (Auto) 2.0 Lymph # (Auto) 0.9 L [place] # (Auto) 0.5 Eos # (Auto) 0.1 Baso # (Auto) 0.0 WBC Differential . Differential Comment Auto diff final Sodium Potassium Chloride Carbon Dioxide Anion Gap BUN Creatinine Estimated GFR POC Glucose 308 H Random Glucose Calcium Urine Color Yellow Urine Clarity Cloudy H Urine pH 7.0 Ur Specific [place] 1.011 Urine Protein Negative Urine Glucose (UA) 150 H Urine Ketones Negative Urine Occult Blood Negative Urine Nitrate Positive H Urine Bilirubin Negative Urine Urobilinogen Less than 2 Ur Leukocyte Esterase Small H Urine RBC Less than 1 Urine WBC 10 H Ur Squamous Epith Cells 6 Urine Bacteria Many H Urine Mucus Few H Micro UA Comment Culture indicated Urine Culture Comments Culture indicated 10/10/18 10/10/18 10/10/18 05:32 07:39 11:36 WBC RBC Hgb Hct MCV MCH MCHC RDW Plt Count MPV Neut % (Auto) Lymph % (Auto) [place] % (Auto) Eos % (Auto) Baso % (Auto) Neut # (Auto) Lymph # (Auto) [place] # (Auto) Eos # (Auto) Baso # (Auto) WBC Differential Differential Comment Sodium 141 Potassium 3.7 Chloride 104 Carbon Dioxide 30.9 Anion Gap 6 BUN 9 Creatinine 0.52 Estimated GFR Greater than 89 POC Glucose 156 H 165 H Random Glucose 110 H D Calcium 9.0 Urine Color Urine Clarity Urine pH Ur Specific [place] Urine Protein Urine Glucose (UA) Urine Ketones Urine Occult Blood Urine Nitrate Urine Bilirubin Urine Urobilinogen Ur Leukocyte Esterase Urine RBC Urine WBC Ur Squamous Epith Cells Urine Bacteria Urine Mucus Micro UA Comment Urine Culture Comments Microbiology 10/09/18 08:00 Wound - Ankle Gram Stain - Final 10/09/18 08:00 Wound - Ankle Wound Culture - Preliminary Group A beta Strep 10/09/18 08:14 Clean Catch Urine Urine Culture - Preliminary gram negative rods 10/09/18 10:47 Blood - Peripheral Aerobic Blood Culture - Preliminary No growth in 1 day 10/09/18 10:47 Blood - Peripheral Anaerobic Blood Culture - Preliminary No growth in 1 day 10/09/18 07:40 Blood - Peripheral Aerobic Blood Culture - Preliminary No growth in 1 day 10/09/18 07:40 Blood - Peripheral Anaerobic Blood Culture - Preliminary No growth in 1 day Assessment and Plan - Plan 53 y/o female with history of diabetes, hepatitis C, PVD, s/p pacemaker, s/p recent amputation of the right fourth toe,asthma,throat cancer, hypotension, presented to ER with redness and swelling of the left leg. Left leg cellulitis, possible MRSA History of MRSA wound -Ultrasound of left lower extremity negative for DVT -Tib-fib x-ray showed soft tissue swelling -Started on vancomycin/Zosyn IV -Wound culture growing a beta strep, with moderate growth also of gram- positive cocci in pairs possibly MRSA -We will continue IV antibiotics for now, will possibly switch over to p.o. antibiotic pending sensitivities (Bactrim, Ceftin) Urinary tract infection -Gram-negative rods growing. Pending sensitivities and final culture. -Continue Vanco/Zosyn for now and will switch over based on sensitivities Recent right fourth toe amputation -Discontinue sutures, wound appears clean DM 2, uncontrolled -Insulin sliding scale, start NPH 70/30 10 units twice daily, adjust as needed -Monitor blood glucose. Check hemoglobin A1c History of hypotension -Resume Midrin DVT prop Lovenox Code Status: Full code Discussed Condition With: Patient, nursing Discharge Planning: Plan to DC home when clinically improved versus SNF
[2018-10-10] MEDS ORDERED: Influenza (Quadrivalent) Vaccine 0.5 ML Syringe IM ONE (16:00)
[2018-10-10] MEDS ORDERED: Pharmacy Ordered Lab Info OTHER ONE (19:45)
[2018-10-10 21:41] LABS: Hemoglobin A1c 6.8 % (4.3-6.0)
[2018-10-11] MEDS: Piperacil/Tazo 3.375 GM Premix 50 ML IV.SIG SCH ×3 (00:31→18:33)
[2018-10-11] MEDS: Insulin NovoLOG Aspart Correctional Sugar Inj SQ SCH ×4 (07:53→21:25)
[2018-10-11] MEDS: Vancomycin Inj 1,000 MG in Sodium Chlor 0.9% Inj 250 ML IV.SIG SCH (07:54)
[2018-10-11 08:01] LABS: Mean Corpuscular HGB Conc 33.6 % (32.0-36.0); Mean Corpuscular Hemoglobin 27.7 pg (27.0-34.0); Mean Corpuscular Volume 82.4 fL (80.0-100.0); Mean Platelet Volume 8.3 fL (7.0-11.0); Platelet Count 222 th/mm3 (150-450); Red Blood Count 2.38 mil/mm3 (4.00-5.30); Red Cell Distribution Width 14.7 % (11.6-17.2)
[2018-10-11 08:06] LABS: Calcium 9.1 mg/dL (8.5-10.1); Carbon Dioxide 31.3 meq/L (21.0-32.0); Hematocrit 19.6 % (35.0-46.0); Hemoglobin 6.6 gm/dL (11.6-15.3); Potassium 4.2 meq/L (3.5-5.1)
[2018-10-11] MEDS: Enoxaparin Inj 40 MG/0.4 ML Syringe SQ SCH (08:52)
[2018-10-11] MEDS: Gabapentin 400 MG Capsule PO SCH ×3 (08:53→17:45)
[2018-10-11] MEDS ORDERED: Sodium Chlor 0.9% Inj 250 ML IV.SIG SCH (11:00)
[2018-10-11] MEDS: Pantoprazole Inj 40 MG Vial IV.PUSH SCH ×2 (11:47→22:06)
--- NOTE | 2018-10-11 12:58 | P.PNIM ---
Subjective Interval history: Follow-up visit DM 2, hep C, PVD, PPM, recent amputation right 4th toe, left leg cellulitis. Patient seen and examined today. She is doing okay but tired. States left lower extremity edema has improved. Discussed with patient lab results including anemia. Denies dysuria, hematochezia, hematemesis, abdominal pain, abdominal cramping. States she has no history of anemia. States he has throat cancer before she underwent chemo radiation. Denies pain and discomfort. Denies SOB/ dyspnea. Denies chest pain, palpitations, headaches, dizziness. Denies fevers, chills, n/v/d. Denies dysuria. Physical Exam Vital signs: Vital Signs 10/10/18 16:00 10/10/18 20:00 10/11/18 00:00 Temperature 97.8 F 97.8 F 99.3 F Pulse Rate 84 86 83 Respiratory Rate 14 18 18 Blood Pressure 93/59 L 137/69 103/54 L Pulse Oximetry 100 98 96 10/11/18 01:40 10/11/18 04:00 10/11/18 07:27 Temperature 98.2 F 98.5 F Pulse Rate 88 83 Respiratory Rate 16 18 17 Blood Pressure 104/52 L 87/52 L Pulse Oximetry 96 96 10/11/18 12:00 Temperature 98.1 F Pulse Rate 90 Respiratory Rate 17 Blood Pressure 97/53 L Pulse Oximetry 99 Intake & Output 10/10/18 10/11/18 10/11/18 18:59 06:59 18:59 Intake Total 950 / 950 300 / 300 300 / 300 Balance 950 / 950 300 / 300 300 / 300 Weight 65 kg 65 kg Intake: IV 950 / 950 300 / 300 300 / 300 NS Inj 1,000 ML @ 84 mls/hr IV. 600 / 600 CONT .[id number] JAXON Rx#:[id number] Zosyn 3.375 GM Premix 50 ML @ 100 / 100 50 / 50 50 / 50 100 mls/hr IV.SIG Q8H JAXON Rx#: [id number] Vancomycin Inj 1,000 MG In NS 250 / 250 250 / 250 250 / 250 Inj 250 ML @ 250 mls/hr IV.SIG Q12H JAXON Rx#:[id number] Other: # Voids 3 2 Date of Last Bowel Movement 10/10/18 # Bowel Movements 1 Weight On Admission 64.1 kg Narrative: GENERAL: This is a well-nourished, well-developed patient, in no apparent distress. SKIN: Warm and dry. Pale HEENT: Normocephalic. Pupils equal round and reactive. Nose without bleeding. Airway patent. NECK: Trachea midline. CARDIOVASCULAR: Regular rate and rhythm without murmurs, gallops, or rubs. RESPIRATORY: Clear to auscultation. Breath sounds equal bilaterally. No wheezes , rales, or rhonchi. GASTROINTESTINAL: Abdomen soft, non-tender, nondistended. Bowel Sounds normoactive x4. MUSCULOSKELETAL: Right toe 4th toe amputation with sutures clean dry and intact. Left lower extremity edema +2, erythema, no drainage noted. NEUROLOGICAL: Awake and alert. No focal neuro deficit. Moves all extremities. Normal speech. Results - Labs CBC & Chem 7: 10/11/18 07:09 10/11/18 07:09 Laboratory Results - last 24 hr 10/10/18 10/10/18 10/10/18 05:32 17:03 19:48 WBC RBC Hgb Hct MCV MCH MCHC RDW Plt Count MPV Sodium Potassium Chloride Carbon Dioxide Anion Gap BUN Creatinine Estimated GFR POC Glucose 172 H 182 H Random Glucose Hemoglobin A1c 6.8 H Calcium Vancomycin Trough Blood Type Antibody Screen MTS Gel Crossmatch 10/10/18 10/11/18 10/11/18 21:00 07:09 07:09 WBC 6.0 RBC 2.38 L Hgb 6.6 L* Hct 19.6 L* MCV 82.4 MCH 27.7 MCHC 33.6 RDW 14.7 Plt Count 222 D MPV 8.3 Sodium 136 Potassium 4.2 Chloride 99 Carbon Dioxide 31.3 Anion Gap 6 BUN 8 Creatinine 0.70 Estimated GFR 88 L POC Glucose Random Glucose 132 H Hemoglobin A1c Calcium 9.1 Vancomycin Trough 13.0 H Blood Type Antibody Screen MTS Gel Crossmatch 10/11/18 10/11/18 10/11/18 07:33 11:26 12:04 WBC RBC Hgb Hct MCV MCH MCHC RDW Plt Count MPV Sodium Potassium Chloride Carbon Dioxide Anion Gap BUN Creatinine Estimated GFR POC Glucose 127 H 246 H Random Glucose Hemoglobin A1c Calcium Vancomycin Trough Blood Type B Positive Antibody Screen Negative MTS Gel Crossmatch See Detail 10/11/18 12:05 WBC RBC Hgb Hct MCV MCH MCHC RDW Plt Count MPV Sodium Potassium Chloride Carbon Dioxide Anion Gap BUN Creatinine Estimated GFR POC Glucose 237 H Random Glucose Hemoglobin A1c Calcium Vancomycin Trough Blood Type Antibody Screen MTS Gel Crossmatch Microbiology 10/09/18 10:47 Blood - Peripheral Aerobic Blood Culture - Preliminary No growth in 2 days 10/09/18 10:47 Blood - Peripheral Anaerobic Blood Culture - Preliminary No growth in 2 days 10/09/18 07:40 Blood - Peripheral Aerobic Blood Culture - Preliminary No growth in 2 days 10/09/18 07:40 Blood - Peripheral Anaerobic Blood Culture - Preliminary No growth in 2 days 10/09/18 08:00 Wound - Ankle Gram Stain - Final 10/09/18 08:00 Wound - Ankle Wound Culture - Final Group A beta Strep 10/09/18 08:14 Clean Catch Urine Urine Culture - Final Escherichia coli ESBL positive Assessment and Plan - Plan 53 y/o female with history of diabetes, hepatitis C, PVD, s/p pacemaker, s/p recent amputation of the right fourth toe,asthma,throat cancer, hypotension, presented to ER with redness and swelling of the left leg. Severe anemia -Feeling fatigued -Denies any hematochezia, hematemesis, hematuria -Hold lovenox, stool for occult blood. Pantoprazole twice daily IV. -Stat H&H, 1 unit blood transfusion ordered, type and screen -Follow-up H&H. History Left leg cellulitis, possible MRSA History of MRSA wound -Ultrasound of left lower extremity negative for DVT -Tib-fib x-ray showed soft tissue swelling -Vancomycin/Zosyn IV -Wound culture growing a beta strep, with moderate growth also of gram- positive cocci in pairs possibly MRSA -We will continue IV antibiotics for now. -ID consulted appreciate recommendation Urinary tract infection ESBL, E. coli -ESBL E. coli, MDR O. -Sensitive to Zosyn. -Continue Zosyn. -ID consulted Recent right fourth toe amputation -Discontinue sutures, wound appears clean DM 2, uncontrolled -Insulin sliding scale, start NPH 70/30 10 units twice daily, adjust as needed -Monitor blood glucose. Check hemoglobin A1c History of hypotension -Resume Midrin DVT prop Lovenox - hold CODE STATUS full code Discussed with patient, nursing, Dr. Winston Discharge Planning: Plan to DC SNF when clinically improved
[2018-10-11 15:02] LABS: Hematocrit 28.8 % (35.0-46.0); Hemoglobin 9.5 gm/dL (11.6-15.3)
--- NOTE | 2018-10-11 19:39 | P.CONID ---
History of Present Illness Service: ID Consult date: 10/11/18 Requesting Physician: Marty Damon Reason for Consult: ESBL; cellulits LLE Primary Care Provider: No Primary Care Physician Chief Complaint: infection of the left leg History of Present Illness: 53 yo female with multiple med problems including DM hep C, PVD, PPM, recent amputation right 4th toe, left leg cellulitis. she is a quirte poor historian she presented with left leg pain swelling and redness x 1 day Borderline fever No leukocuyytosis, some pancytopenia noted She has recen t toe ampuitaion on R and remote L hallux amputation on the L foot she also has a tender heel ulceration Wound culture + for group A strep Denies disuria, but she has abnormal UA and culture + for ESBL pt is currently on zosyn, vancomycin Review of Systems All other systems reviewed negative except as stated in HPI PMFSH - History History Provided By: Patient - Medical History Medical History: Medical History (Last Reviewed 10/11/18 @ 19:31 by Sally Grajeda MD) Amputated toe of right foot Asthma delivery delivered Diabetes Hep C w/o coma, chronic Hypertension Hypotension Neuropathy Stenosis of left femoral artery - Surgical History Surgical History: Surgical History (Last Reviewed 10/11/18 @ 19:31 by Sally Grajeda MD) History of tonsillectomy Hx of appendectomy - Family History Family History: Family History (Last Reviewed 10/11/18 @ 19:31 by Sally Grajeda MD) Other Heart disease - Social History I have reviewed the patient's Social History: Yes - Tobacco History Second Hand Smoke Exposure: No Smoking Status: Former smoker - Alcohol History How Often Do You Have a Drink Containing Alcohol: Never - Substance Use History Substance History: Past History - Travel History Recent Travel in the [place] Within the Last 8 Weeks: No Recent Travel Out of the Country Within the Last 8 Weeks: No - Immunization History Tetanus Immunization: Unsure Hx Influenza Vaccine This Season: No Medications and Allergies Active Medications: Active Medications Acetaminophen (Tylenol) 650 mg PO Q4H PRN PRN Reason: fever/pain Last Admin: 10/09/18 18:56 Dose: 650 mg Albuterol (Albuterol Neb (Prn)) 1.25 mg NEB Q6HR NEB PRN PRN Reason: sob Dextrose (D50w Vial) 50 ml IV.PUSH UNSCH PRN PRN Reason: PER HYPOGLYCEMIA PROTOCOL Enoxaparin Sodium (Lovenox Inj) 40 mg SQ DAILY JAXON Last Admin: 10/11/18 08:52 Dose: 40 mg Furosemide (Lasix Inj) 20 mg IV.PUSH DAILY JAXON Stop: 10/12/18 15:29 Last Admin: 10/11/18 08:53 Dose: 20 mg Gabapentin (Neurontin) 400 mg PO TID JAXON Last Admin: 10/11/18 17:45 Dose: 400 mg Glucagon (Glucagon Inj) 1 mg OTHER PRN PRN PRN Reason: for Hypoglycemia Protocol Piperacillin/Tazobactam/Dextrose (Zosyn 3.375 Gm Premix) 50 mls @ 100 mls/hr IV.SIG Q8H JAXON Last Admin: 10/11/18 18:33 Dose: 100 mls/hr Vancomycin HCl 1,000 mg/ (Sodium Chloride) 250 mls @ 250 mls/hr IV.SIG Q12H [facility] Last Infusion: 10/11/18 10:17 Dose: Infused Sodium Chloride (Ns Inj) 250 mls @ 15 mls/hr IV.SIG ONCE JAXON Stop: 10/12/18 03:39 Last Infusion: 10/11/18 18:39 Dose: Infused Insulin Aspart (Novolog Insulin Correctional Sugar Inj) 0 unit SQ ACHS JAXON; Protocol Last Admin: 10/11/18 17:46 Dose: 3 unit Insulin Human NPH (Novolin N Inj) 10 units SQ BID@0800,1700 [facility] Last Admin: 10/11/18 17:45 Dose: 10 units Midodrine (Proamatine) 5 mg PO TID [facility] Last Admin: 10/11/18 17:45 Dose: 5 mg Miscellaneous Information ([facility] [place]dered Lab Info) 0 each OTHER ONCE ONE Stop: 10/13/18 07:46 Pantoprazole Sodium (Protonix Inj) 40 mg IV.PUSH Q12H JAXON Last Admin: 10/11/18 11:47 Dose: 40 mg Pharmacy Profile Note (Vancomycin Consult Pharmacy) 1 each OTHER UNSCH PRN PRN Reason: Pharmacy to dose Potassium Chloride (Klor-Con 10) 10 meq PO DAILY JAXON Stop: 10/12/18 15:29 Last Admin: 10/11/18 08:53 Dose: 10 meq Allergies Allergy/AdvReac Type Severity Reaction Status Date / Time metformin AdvReac Severe DIARRHEA Verified 10/09/18 07:18 morphine AdvReac Severe Dizziness Verified 10/09/18 07:18 oxycodone AdvReac Severe Nausea/Vomi Verified 10/09/18 07:18 ting prochlorperazine AdvReac Severe ANXIETY Verified 10/09/18 07:18 MRI PRECAUTION AdvReac Severe PACEMAKER Uncoded 10/09/18 07:18 IS NOT A [employer] OR [employer] 06/15/16 KMD Home Medications Medication Instructions Recorded Confirmed Type gabapentin 400 mg PO TID 05/12/18 10/09/18 History insulin detemir U-100 [Levemir 5 unit SUB-Q QPM 05/12/18 10/09/18 History U-100 Insulin] midodrine 5 mg PO TID 05/12/18 10/09/18 History Exam Vital signs: Vital Signs 10/10/18 20:00 10/11/18 00:00 10/11/18 01:40 Temperature 97.8 F 99.3 F Pulse Rate 86 83 Respiratory Rate 18 18 16 Blood Pressure 137/69 103/54 L Pulse Oximetry 98 96 10/11/18 04:00 10/11/18 07:27 10/11/18 12:00 Temperature 98.2 F 98.5 F 98.1 F Pulse Rate 88 83 90 Respiratory Rate 18 17 17 Blood Pressure 104/52 L 87/52 L 97/53 L Pulse Oximetry 96 96 99 10/11/18 15:11 10/11/18 15:15 10/11/18 15:34 Temperature 98.3 F 98.3 F 98.4 F Pulse Rate 84 84 84 Respiratory Rate 19 Blood Pressure 125/71 123/71 136/75 Pulse Oximetry 99 99 98 10/11/18 15:37 10/11/18 15:47 10/11/18 15:56 Temperature 98.5 F 98.3 F 98.3 F Pulse Rate 82 82 Respiratory Rate Blood Pressure 129/73 130/76 128/74 Pulse Oximetry 98 99 100 10/11/18 16:02 10/11/18 16:19 10/11/18 16:56 Temperature 98.3 F 98.6 F Pulse Rate 88 86 84 Respiratory Rate Blood Pressure 130/80 131/81 137/75 Pulse Oximetry 100 97 Intake & Output 12/04/2310/11/18 10/12/18 06:59 18:59 06:59 Intake Total 300 / 300 300 / 300 Balance 300 / 300 300 / 300 Weight 65 kg Intake: IV 300 / 300 300 / 300 Zosyn 3.375 GM Premix 50 ML @ 50 / 50 50 / 50 100 mls/hr IV.SIG Q8H [facility] Rx#: [id number] NS Inj 250 ML @ 15 mls/hr IV. 0 / 0 SIG ONCE JAXON Rx#:[id number] Vancomycin Inj 1,000 MG In NS 250 / 250 250 / 250 Inj 250 ML @ 250 mls/hr IV.SIG Q12H [facility]AXON Rx#:[id number] Intake (Blood Product) Amt 0 / 0 Rbc As-3 Leukoreduced Unit 0 / 0 [id number] Other: # Voids 2 - Constitutional no acute distress, thin - Routine HEENT Exam Head: Present: normocephalic, atraumatic Eye: Present: EOMI, PERRL ENT: Present: mucous membranes moist. Absent: dentition normal (edentulous) - Routine Neck Exam Present: supple. Absent: JVD, lymphadenopathy - Routine Respiratory Exam Present: CTA bilaterally. Absent: accessory muscle use, decreased breath sounds , rhonchi, wheezes - Routine Cardiovascular Exam Present: RRR, S1, S2. Absent: murmur, gallop, rubs - Routine Abdominal Exam Present: soft, normoactive bowel sounds. Absent: tenderness, distended, organomegaly, mass - Routine Extremities Exam Absent: cyanosis, clubbing Comments: LLE with well healedc L hallux amputation + 2+ edema erythema bright extendintg to the knee, + mild ipsilateral inguinal lymphadenopathy L heel ulcer + some mild d/c R foot with healed 4 th toe amputaion site - Routine Skin Exam Present: wounds (L heal as described above). Absent: cyanosis, jaundice, rash, ecchymosis - Routine Neurological Exam Present: alert, oriented X3, CN II-XII intact. Absent: sensory deficit, motor deficit - Routine Psychiatric Exam Present: normal affect, cooperative Results - Labs CBC & Chem 7: 10/11/18 14:52 10/11/18 07:09 Labs: Laboratory Results - last 24 hr 10/10/18 10/10/18 10/10/18 05:32 19:48 21:00 WBC RBC Hgb Hct MCV MCH MCHC RDW Plt Count MPV Sodium Potassium Chloride Carbon Dioxide Anion Gap BUN Creatinine Estimated GFR POC Glucose 182 H Random Glucose Hemoglobin A1c 6.8 H Calcium Vancomycin Trough 13.0 H Blood Type Antibody Screen MTS Gel Crossmatch 10/11/18 10/11/18 10/11/18 07:09 07:09 07:33 WBC 6.0 RBC 2.38 L Hgb 6.6 L* Hct 19.6 L* MCV 82.4 MCH 27.7 MCHC 33.6 RDW 14.7 Plt Count 222 D MPV 8.3 Sodium 136 Potassium 4.2 Chloride 99 Carbon Dioxide 31.3 Anion Gap 6 BUN 8 Creatinine 0.70 Estimated GFR 88 L POC Glucose 127 H Random Glucose 132 H Hemoglobin A1c Calcium 9.1 Vancomycin Trough Blood Type Antibody Screen MTS Gel Crossmatch 10/11/18 10/11/18 10/11/18 11:26 12:04 12:05 WBC RBC Hgb Hct MCV MCH MCHC RDW Plt Count MPV Sodium Potassium Chloride Carbon Dioxide Anion Gap BUN Creatinine Estimated GFR POC Glucose 246 H 237 H Random Glucose Hemoglobin A1c Calcium Vancomycin Trough Blood Type B Positive Antibody Screen Negative MTS Gel Crossmatch See Detail 10/11/18 10/11/18 14:52 17:36 WBC RBC Hgb 9.5 L D Hct 28.8 L MCV MCH MCHC RDW Plt Count MPV Sodium Potassium Chloride Carbon Dioxide Anion Gap BUN Creatinine Estimated GFR POC Glucose 201 H Random Glucose Hemoglobin A1c Calcium Vancomycin Trough Blood Type Antibody Screen MTS Gel Crossmatch - Imaging Venous Doppler Study 10/09/18 07:25 CONCLUSION: 1. No sonographic evidence for left lower extremity DVT. 2. Nonspecific mild left inguinal adenopathy. Tibia/Fibula X-Ray 10/09/18 07:30 CONCLUSION: Soft tissue swelling. Chest X-Ray 10/09/18 07:31 CONCLUSION: No acute cardiopulmonary abnormality is identified. Assessment and Plan - Plan ESBL + E.coli UTI LLE cellulitis Group A strep DFI L heel ulcer ? PVD dc zosyn dc vanco start Ertapenem w/u for osteo and PVD
[2018-10-11 21:04] LABS: Hematocrit 31.1 % (35.0-46.0); Hemoglobin 10.5 gm/dL (11.6-15.3)
[2018-10-11] MEDS: Insulin Detemir Inj 1,000 UNIT/10 ML Vial SQ SCH (21:23)
[2018-10-12 07:11] LABS: Albumin 2.6 g/dL (3.4-5.0); Anion Gap 9 meq/L (5-15); Aspartate Aminotransferase 12 U/L (15-37); Blood Urea Nitrogen 11 mg/dL (7-18); Calcium 9.4 mg/dL (8.5-10.1); Carbon Dioxide 30.5 meq/L (21.0-32.0); Chloride 97 meq/L (98-107); Glomerular Filtration Rate 64 mL/min (>89); Glucose,Random 79 mg/dL (74-106); Potassium 3.9 meq/L (3.5-5.1)
[2018-10-12 07:14] LABS: Alanine Aminotransferase 15 U/L (10-53); Alkaline Phosphatase 81 U/L (45-117); Hematocrit 31.5 % (35.0-46.0); Hemoglobin 10.6 gm/dL (11.6-15.3); Mean Corpuscular HGB Conc 33.6 % (32.0-36.0); Mean Corpuscular Volume 83.6 fL (80.0-100.0); Mean Platelet Volume 7.9 fL (7.0-11.0); Platelet Count 226 th/mm3 (150-450); Red Blood Count 3.77 mil/mm3 (4.00-5.30); Red Cell Distribution Width 14.8 % (11.6-17.2); Total Protein 7.8 g/dL (6.4-8.2); White Blood Count 5.7 th/mm3 (4.0-11.0)
[2018-10-12 07:29] LABS: Sodium 136 meq/L (136-145)
[2018-10-12] MEDS: Gabapentin 400 MG Capsule PO SCH ×3 (08:51→18:38)
[2018-10-12] MEDS: Insulin Detemir Inj 1,000 UNIT/10 ML Vial SQ SCH (08:54)
--- NOTE | 2018-10-12 10:32 | P.PNIM ---
Subjective Interval history: PPM [employer] Model Pacer, serial #[id number] Placed June 2013 [phone] Cohn's office Follow-up visit DM 2, hep C, PVD, PPM, recent amputation right 4th toe, left leg cellulitis. Patient seen and examined today. Reports she is doing okay. Denies pain and discomfort. Denies SOB/ dyspnea. Denies chest pain, palpitations, headaches, dizziness. Denies fevers, chills, n/v/d. Denies hematuria, dysuria. Physical Exam Vital signs: Vital Signs 10/11/18 12:00 10/11/18 15:11 10/11/18 15:15 Temperature 98.1 F 98.3 F 98.3 F Pulse Rate 90 84 84 Respiratory Rate 17 19 Blood Pressure 97/53 L 125/71 123/71 Pulse Oximetry 99 99 99 10/11/18 15:34 10/11/18 15:37 10/11/18 15:47 Temperature 98.4 F 98.5 F 98.3 F Pulse Rate 84 82 82 Respiratory Rate Blood Pressure 136/75 129/73 130/76 Pulse Oximetry 98 98 99 10/11/18 15:56 10/11/18 16:02 10/11/18 16:19 Temperature 98.3 F 98.3 F 98.6 F Pulse Rate 88 86 Respiratory Rate Blood Pressure 128/74 130/80 131/81 Pulse Oximetry 100 100 10/11/18 16:56 10/11/18 20:00 10/12/18 00:00 Temperature 98.9 F 97.5 F L Pulse Rate 84 90 76 Respiratory Rate 18 18 Blood Pressure 137/75 102/63 110/58 L Pulse Oximetry 97 96 97 10/12/18 00:54 10/12/18 00:58 10/12/18 04:00 Temperature 98.1 F Pulse Rate 88 78 82 Respiratory Rate 18 Blood Pressure 105/52 L Pulse Oximetry 99 10/12/18 04:33 10/12/18 08:00 Temperature 97.9 F Pulse Rate 92 H 80 Respiratory Rate 16 Blood Pressure 138/77 Pulse Oximetry 98 Intake & Output 10/11/18 10/12/18 10/12/18 18:59 06:59 18:59 Intake Total 300 / 300 1655 / 1655 Output Total 1999 / 1999 1100 / 1100 Balance -1700 / -1700 555 / 555 Intake: IV 300 / 300 150 / 150 INVanz Inj 1,000 MG In NS Inj 100 / 100 100 ML @ 200 mls/hr IV.SIG Q24H [facility] Rx#:[id number] Zosyn 3.375 GM Premix 50 ML @ 50 / 50 50 / 50 100 mls/hr IV.SIG Q8H [facility] Rx#: [id number] NS Inj 250 ML @ 15 mls/hr IV. 0 / 0 SIG ONCE JAXON Rx#:[id number] Vancomycin Inj 1,000 MG In NS 250 / 250 Inj 250 ML @ 250 mls/hr IV.SIG Q12H [facility] Rx#:[id number] Oral 1105 / 1105 Intake (Blood Product) Amt 0 / 0 400 / 400 Rbc As-3 Leukoreduced Unit 0 / 0 400 / 400 [id number] Output: Urine 1999 / 1999 1100 / 1100 Other: # Voids 6 # Urine Diapers 3 Date of Last Bowel Movement 10/10/18 # Bowel Movements 1 Narrative: GENERAL: This is a well-nourished, well-developed patient, in no apparent distress. SKIN: Warm and dry. Pale HEENT: Normocephalic. Pupils equal round and reactive. Nose without bleeding. Airway patent. NECK: Trachea midline. CARDIOVASCULAR: Regular rate and rhythm without murmurs, gallops, or rubs. RESPIRATORY: Clear to auscultation. Breath sounds equal bilaterally. No wheezes , rales, or rhonchi. GASTROINTESTINAL: Abdomen soft, non-tender, nondistended. Bowel Sounds normoactive x4. MUSCULOSKELETAL: Right toe 4th toe amputation with sutures clean dry and intact. Left lower extremity edema +2, erythema. Left heel boggy now with open wound, small amount serosanguineous drain. NEUROLOGICAL: Awake and alert. No focal neuro deficit. Moves all extremities. Normal speech. Results - Labs CBC & Chem 7: 10/12/18 06:15 10/12/18 06:15 Laboratory Results - last 24 hr 10/11/18 10/11/18 10/11/18 11:26 12:04 12:05 WBC RBC Hgb Hct MCV MCH MCHC RDW Plt Count MPV Sodium Potassium Chloride Carbon Dioxide Anion Gap BUN Creatinine Estimated GFR POC Glucose 246 H 237 H Random Glucose Calcium Total Bilirubin AST ALT Alkaline Phosphatase Total Protein Albumin Blood Type B Positive Antibody Screen Negative MTS Gel Crossmatch See Detail 10/11/18 10/11/18 10/11/18 14:52 17:36 20:45 WBC RBC Hgb 9.5 L D 10.5 L Hct 28.8 L 31.1 L MCV MCH MCHC RDW Plt Count MPV Sodium Potassium Chloride Carbon Dioxide Anion Gap BUN Creatinine Estimated GFR POC Glucose 201 H Random Glucose Calcium Total Bilirubin AST ALT Alkaline Phosphatase Total Protein Albumin Blood Type Antibody Screen MTS Gel Crossmatch 10/11/18 10/12/18 10/12/18 20:50 06:15 06:15 WBC 5.7 RBC 3.77 L Hgb 10.6 L Hct 31.5 L MCV 83.6 MCH 28.0 MCHC 33.6 RDW 14.8 Plt Count 226 MPV 7.9 Sodium 136 Potassium 3.9 Chloride 97 L Carbon Dioxide 30.5 Anion Gap 9 BUN 11 Creatinine 0.92 Estimated GFR 64 L POC Glucose 203 H Random Glucose 79 Calcium 9.4 Total Bilirubin 0.4 AST 12 L ALT 15 Alkaline Phosphatase 81 Total Protein 7.8 Albumin 2.6 L Blood Type Antibody Screen MTS Gel Crossmatch 10/12/18 08:18 WBC RBC Hgb Hct MCV MCH MCHC RDW Plt Count MPV Sodium Potassium Chloride Carbon Dioxide Anion Gap BUN Creatinine Estimated GFR POC Glucose 79 Random Glucose Calcium Total Bilirubin AST ALT Alkaline Phosphatase Total Protein Albumin Blood Type Antibody Screen MTS Gel Crossmatch Microbiology 10/09/18 10:47 Blood - Peripheral Aerobic Blood Culture - Preliminary No growth in 2 days 10/09/18 10:47 Blood - Peripheral Anaerobic Blood Culture - Preliminary No growth in 2 days 10/09/18 07:40 Blood - Peripheral Aerobic Blood Culture - Preliminary No growth in 2 days 10/09/18 07:40 Blood - Peripheral Anaerobic Blood Culture - Preliminary No growth in 2 days 10/09/18 08:00 Wound - Ankle Gram Stain - Final 10/09/18 08:00 Wound - Ankle Wound Culture - Final Group A beta Strep 10/09/18 08:14 Clean Catch Urine Urine Culture - Final Escherichia coli ESBL positive Assessment and Plan - Plan 53 y/o female with history of diabetes, hepatitis C, PVD, s/p pacemaker, s/p recent amputation of the right fourth toe,asthma,throat cancer, hypotension, presented to ER with redness and swelling of the left leg. Severe anemia -Denies any hematochezia, hematemesis, hematuria -Hold lovenox, stool for occult blood. Pantoprazole twice daily IV. -1 unit blood transfusion done -Improve H&H. Monitor for any signs and symptoms of bleeding. -Will attempt to restart Lovenox bri Left leg cellulitis, possible MRSA Left heel wound History of MRSA wound -Ultrasound of left lower extremity negative for DVT -Tib-fib x-ray showed soft tissue swelling -Vancomycin/Zosyn IV previously, switched to Ertapenem -Wound culture growing a beta strep, with moderate growth also of gram- positive cocci in pairs possibly MRSA -ID consulted appreciate recommendation. WBC tag and vascular studies ordered -[employer] PPM Model 2210, [employer] human resources hr representative has been called. The model is not compatible with MRI. Unable to do MRI. -Xray ordered Urinary tract infection ESBL, E. coli -ESBL E. coli, MDR O. -On Ertapenem per ID recommendation Recent right fourth toe amputation -Discontinue sutures, wound appears clean DM 2, uncontrolled -Insulin sliding scale,switched to Levemir 10units BID, adjust as needed -Monitor blood glucose. Hemoglobin A1c 6.8 History of hypotension -Resume Midodrin DVT prop Lovenox - hold CODE STATUS full code Discussed with patient, nursing, Dr. Nicci Cohn's office was called (Protocol Officer) PPM [employer] Model Pacer, serial #[id number] Placed June 2013 [phone] Discharge Planning: Plan to DC SNF when clinically improved
[2018-10-12] MEDS: Insulin NovoLOG Aspart Correctional Sugar Inj SQ SCH ×3 (11:20→18:37)
[2018-10-12] MEDS: Pantoprazole Inj 40 MG Vial IV.PUSH SCH (13:32)
--- NOTE | 2018-10-12 17:08 | XR ---
EXAM DATE: 10/12/2018 4:41 PM EST AGE/SEX: 53 years / Female INDICATIONS: Diabetic foot. CLINICAL DATA: This is the patient's initial encounter. Patient reports that signs and symptoms have been present for 1 week and indicates a pain score of 6/10. MEDICAL/SURGICAL HISTORY: . Pancreatitis. Diabetes. Hepatitis C. Cardiovascular disease, Hypert ension, throat cancer . Appendectomy. Pacemaker. Cholecystectomy. Mastectomy, COMPARISON: [facility], ANKLE COMPLETE LEFT MIN 3V, 10/12/2018. . FINDINGS: Bony structures are intact and in normal alignment. Osseous density is normal. Soft tissues are unre markable. Moderate plantar spurring is evident. No radiopaque foreign bodies seen. CONCLUSION: Plantar spurring otherwise negative Electronically signed by: Fer Sorensen MD 10/12/2018 5:07 PM EST
--- NOTE | 2018-10-12 17:09 | XR ---
EXAM DATE: 10/12/2018 4:39 PM EST AGE/SEX: 53 years / Female INDICATIONS: Diabetic heel and foot. Complains of pain. CLINICAL DATA: This is the patient's initial encounter. Patient reports that signs and symptoms have been present for 1 week and indicates a pain score of 6/10. MEDICAL/SURGICAL HISTORY: . Pancreatitis. Diabetes. Hepatitis C. Cardiovascular disease, Hypert ension, throat cancer . Appendectomy. Pacemaker. Cholecystectomy. Mastectomy, COMPARISON: [facility], TIBIA FIBULA LEFT 2V, 10/09/2018. . FINDINGS: Marked soft tissue swelling without fracture or dislocation. Extensive vascular calcifications are no gael. Minimal lucency is present at the tip of the lateral malleolus suggesting ulceration. Correlation sug gested CONCLUSION: Marked soft tissue swelling. Electronically signed by: Fer Sorensen MD 10/12/2018 5:08 PM EST
[2018-10-12] MEDS: Acetaminophen 325 MG Tablet PO PRN (18:40)
[2018-10-13] MEDS: Insulin Detemir Inj 1,000 UNIT/10 ML Vial SQ SCH ×3 (00:40→21:36)
[2018-10-13] MEDS: Insulin NovoLOG Aspart Correctional Sugar Inj SQ SCH ×5 (00:41→21:37)
[2018-10-13] MEDS: Pantoprazole Inj 40 MG Vial IV.PUSH SCH ×2 (00:41→12:13)
[2018-10-13] MEDS ORDERED: Pharmacy Ordered Lab Info OTHER ONE (07:45)
[2018-10-13] MEDS: Gabapentin 400 MG Capsule PO SCH ×3 (08:59→17:23)
[2018-10-13] MEDS: Enoxaparin Inj 40 MG/0.4 ML Syringe SQ SCH (08:59)
--- NOTE | 2018-10-13 11:16 | NM ---
EXAM DATE: 10/13/2018 10:31 AM EST AGE/SEX: 53 years / Female INDICATIONS: Left foot ulcer on heel. CLINICAL DATA: This is the patient's initial encounter. Patient reports that signs and symptoms have been present for 1 day and indicates a pain score of 1/10. Location: , Laterality: MEDICAL/SURGICAL HISTORY: Asthma. Diabetes mellitus type II. Hepatitis C. . Amputation right tor on right foot. Remote left hallux amputation on left foot. COMPARISON: [facility], WBC SPECT CERETEC, 10/24/2017. . DOSE: 21 mCi Tc99m Ceretec labeled white blood cells IV IMAGING TIMES: 30 min , 3 hrs , 24 hrs IMAGING: SPECT/CT imaging with fusion was performed. RADIATION DOSE: 1.66 CTDIvol(mGy) TECHNIQUE: Following the in vitro labeling of autologous white cells and reinjection, whole body sca n was performed at the specified times. SPECT imaging was performed at the specified time in sagittal , axial and coronal planes. Attenuation correction was performed with the computed tomography and oumar th the attenuation correction and non-attenuation corrected data sets were reviewed. FINDINGS: Focal radiotracer accumulation is identified along the left posterior lateral margin of the hindfoot. The uptake is within the soft tissues. There is no evidence of bony involvement. CONCLUSION: 1. Soft tissue radiotracer accumulation along the lateral margin of the left hindfoot corresponding to the patient's ulceration. 2. No evidence of bony uptake to indicate the presence of osteomyelitis. Electronically signed by: Uriel Boykin MD 10/13/2018 11:15 AM EST
--- NOTE | 2018-10-13 11:26 | P.PNIM ---
Subjective Interval history: Follow-up visit DM 2, hep C, PVD, PPM, recent amputation right 4th toe, left leg cellulitis. Patient seen and examined today. Reports she is doing okay. States that there is an increase in leg swelling left lower extremity. Denies any pain or discomfort. Denies fevers, chills, nausea, vomiting, diarrhea. Denies abdominal pain or cramping. Denies dysuria. Patient states that she wanted to find out if she can still go to a long-term facility. And one is she going. Discussed with patient that she will have IV antibiotics for now and if her leg has significant improvement she will get to rehabilitation center. Discuss about [facility] however she needs to have a place to go home after rehabilitation will be placed in a long-term care facility if needed. Patient is agreeable. States that her friends are looking for house to go on to but possibly will not be available until 06 November. Physical Exam Vital signs: Vital Signs 10/12/18 12:00 10/12/18 16:00 10/12/18 20:00 Temperature 97.8 F 97.8 F 97.7 F Pulse Rate 87 87 85 Respiratory Rate 16 18 17 Blood Pressure 107/68 144/92 H 166/90 H Pulse Oximetry 100 99 100 10/13/18 00:00 10/13/18 04:00 10/13/18 08:00 Temperature 97.8 F 97.6 F 97.7 F Pulse Rate 81 82 79 Respiratory Rate 16 16 20 Blood Pressure 149/81 H 138/80 146/75 H Pulse Oximetry 99 100 97 10/13/18 09:00 Temperature Pulse Rate 77 Respiratory Rate Blood Pressure Pulse Oximetry Intake & Output 10/12/18 10/13/18 10/13/18 18:59 06:59 18:59 Intake Total 920 / 920 580 / 580 Output Total 1850 / 1850 Balance -930 / -930 580 / 580 Weight 65.1 kg Intake: IV 100 / 100 INVanz Inj 1,000 MG In NS Inj 100 / 100 100 ML @ 200 mls/hr IV.SIG Q24H [facility] Rx#:[id number] Oral 920 / 920 480 / 480 Output: Urine 1850 / 1850 Other: # Voids 5 1 Narrative: GENERAL: This is a well-nourished, well-developed patient, in no apparent distress. SKIN: Warm and dry. Pale HEENT: Normocephalic. Pupils equal round and reactive. Nose without bleeding. Airway patent. NECK: Trachea midline. CARDIOVASCULAR: Regular rate and rhythm without murmurs, gallops, or rubs. RESPIRATORY: Clear to auscultation. Breath sounds equal bilaterally. No wheezes , rales, or rhonchi. GASTROINTESTINAL: Abdomen soft, non-tender, nondistended. Bowel Sounds normoactive x4. MUSCULOSKELETAL: Right toe 4th toe amputation with sutures clean dry and intact. Left lower extremity edema +3, improved erythema. Left heel boggy with open wound, small amount serosanguineous drain. NEUROLOGICAL: Awake and alert. No focal neuro deficit. Moves all extremities. Normal speech. Results - Labs CBC & Chem 7: 10/12/18 06:15 10/12/18 06:15 Laboratory Results - last 24 hr 10/12/18 10/12/18 10/13/18 13:30 17:21 00:36 POC Glucose 162 H 152 H 129 H 10/13/18 07:40 POC Glucose 142 H Microbiology 10/09/18 10:47 Blood - Peripheral Aerobic Blood Culture - Preliminary No growth in 4 days 10/09/18 10:47 Blood - Peripheral Anaerobic Blood Culture - Preliminary No growth in 4 days 10/09/18 07:40 Blood - Peripheral Aerobic Blood Culture - Preliminary No growth in 4 days 10/09/18 07:40 Blood - Peripheral Anaerobic Blood Culture - Preliminary No growth in 4 days - Imaging Impressions Ankle X-Ray 10/12/18 00:00 CONCLUSION: Marked soft tissue swelling. Foot X-Ray 10/12/18 00:00 CONCLUSION: Plantar spurring otherwise negative WBC Scan Nuclear Medicine 10/12/18 00:00 CONCLUSION: 1. Soft tissue radiotracer accumulation along the lateral margin of the left hindfoot corresponding to the patient's ulceration. 2. No evidence of bony uptake to indicate the presence of osteomyelitis. Assessment and Plan - Plan 53 y/o female with history of diabetes, hepatitis C, PVD, s/p pacemaker, s/p recent amputation of the right fourth toe,asthma,throat cancer, hypotension, presented to ER with redness and swelling of the left leg. Severe anemia -Denies any hematochezia, hematemesis, hematuria -Hold lovenox, stool for occult blood. Pantoprazole twice daily IV. -1 unit blood transfusion done -Improve H&H. Monitor for any signs and symptoms of bleeding. -Lovenox restarted. No evidence of bleeding noted. Will switch over pantoprazole to Pepcid p.o. twice daily. Left leg cellulitis, possible MRSA Left heel wound History of MRSA wound -Ultrasound of left lower extremity negative for DVT -Tib-fib x-ray showed soft tissue swelling -Vancomycin/Zosyn IV previously, switched to Ertapenem -Wound culture growing a beta strep, with moderate growth also of gram- positive cocci in pairs possibly MRSA -ID consulted appreciate recommendation. WBC tag and vascular studies ordered -[facility] [facility] PPM Model 2210, [place] [facility] client relations representative has been called. The model is not compatible with MRI. Unable to do MRI. -Xray of the ankle showed Marked soft tissue swelling without fracture or dislocation. Extensive vascular calcifications are noted. Minimal lucency is present at the tip of the lateral malleolus suggesting ulceration. -X-ray of the foot Plantar spurring otherwise negative -Lasix 20mg daily/KCL Urinary tract infection ESBL, E. coli -ESBL E. coli, MDR O. -On Ertapenem per ID recommendation Recent right fourth toe amputation -Discontinue sutures, wound appears clean DM 2, uncontrolled -Insulin sliding scale,switched to Levemir 10units BID, adjust as needed -Monitor blood glucose. Hemoglobin A1c 6.8 History of hypotension -Resume Midodrin DVT prop Lovenox GI prop Pepcid twice daily CODE STATUS full code Discussed with patient, nursing, Dr. Nicci Cohn's office was called ([employer]) PPM [facility] Model Pacer, serial #[id number] Placed June 2013 [phone] Discharge Planning: Plan to [place] SNF when clinically improved
[2018-10-13] MEDS: Potassium Chloride 10 MEQ ER Capsule PO SCH (17:23)
[2018-10-13] MEDS: Famotidine 20 MG Tablet PO SCH ×2 (21:37→21:41)
[2018-10-14] MEDS: Potassium Chloride 10 MEQ ER Capsule PO SCH (08:22)
[2018-10-14] MEDS: Insulin NovoLOG Aspart Correctional Sugar Inj SQ SCH ×4 (08:23→22:11)
[2018-10-14] MEDS: Famotidine 20 MG Tablet PO SCH ×2 (08:23→22:10)
[2018-10-14] MEDS: Gabapentin 400 MG Capsule PO SCH ×3 (08:23→17:16)
[2018-10-14] MEDS: Enoxaparin Inj 40 MG/0.4 ML Syringe SQ SCH (08:23)
[2018-10-14] MEDS: Insulin Detemir Inj 1,000 UNIT/10 ML Vial SQ SCH ×2 (08:24→22:11)
[2018-10-14 08:54] LABS: Hematocrit 31.3 % (35.0-46.0); Hemoglobin 10.5 gm/dL (11.6-15.3); Mean Corpuscular HGB Conc 33.6 % (32.0-36.0); Mean Corpuscular Volume 83.5 fL (80.0-100.0); Mean Platelet Volume 7.6 fL (7.0-11.0); Platelet Count 377 th/mm3 (150-450); Red Blood Count 3.75 mil/mm3 (4.00-5.30); Red Cell Distribution Width 15.2 % (11.6-17.2); White Blood Count 5.6 th/mm3 (4.0-11.0)
[2018-10-14 09:21] LABS: Calcium 9.2 mg/dL (8.5-10.1); Carbon Dioxide 33.6 meq/L (21.0-32.0); Potassium 4.2 meq/L (3.5-5.1)
--- NOTE | 2018-10-14 11:16 | P.PNIM ---
Subjective Interval history: Follow-up visit DM 2, hep C, PVD, PPM, recent amputation right 4th toe, left leg cellulitis. Patient seen and examined today. Reports she is doing okay. Left lower extremity swelling improving. No acute issues overnight. Denies pain and discomfort. Denies SOB/ dyspnea. Denies chest pain, palpitations, headaches, dizziness. Denies fevers, chills, n/v/d. Denies hematuria, dysuria. Physical Exam Vital signs: Vital Signs 10/13/18 12:00 10/13/18 16:00 10/13/18 16:45 Temperature 98.1 F 98.2 F Pulse Rate 85 83 83 Respiratory Rate 20 Blood Pressure 106/59 L 123/71 Pulse Oximetry 97 20 L 10/13/18 20:00 10/14/18 00:00 10/14/18 04:00 Temperature 97.9 F 98.8 F 98.2 F Pulse Rate 83 81 82 Respiratory Rate 18 18 18 Blood Pressure 92/53 L 94/51 L 129/71 Pulse Oximetry 97 96 98 10/14/18 04:23 10/14/18 08:00 10/14/18 09:00 Temperature 98 F Pulse Rate 83 86 85 Respiratory Rate 20 Blood Pressure 103/65 Pulse Oximetry 100 Intake & Output 10/13/18 10/14/18 10/14/18 18:59 06:59 18:59 Intake Total 100 / 100 Balance 100 / 100 Weight 65 kg Intake: IV 100 / 100 INVanz Inj 1,000 MG In NS Inj 100 / 100 100 ML @ 200 mls/hr IV.SIG Q24H [facility] Rx#:[id number] Other: # Voids 1 3 Date of Last Bowel Movement 10/14/18 10/14/18 Narrative: GENERAL: This is a well-nourished, well-developed patient, in no apparent distress. SKIN: Warm and dry. Pale HEENT: Normocephalic. Pupils equal round and reactive. Nose without bleeding. Airway patent. NECK: Trachea midline. CARDIOVASCULAR: Regular rate and rhythm without murmurs, gallops, or rubs. RESPIRATORY: Clear to auscultation. Breath sounds equal bilaterally. No wheezes , rales, or rhonchi. GASTROINTESTINAL: Abdomen soft, non-tender, nondistended. Bowel Sounds normoactive x4. MUSCULOSKELETAL: Right toe 4th toe amputation with sutures clean dry and intact. Left lower extremity edema +2, improved erythema. Left heel boggy with open wound, small amount serosanguineous drain. NEUROLOGICAL: Awake and alert. No focal neuro deficit. Moves all extremities. Normal speech. Results - Labs CBC & Chem 7: 10/14/18 07:53 10/14/18 07:53 Laboratory Results - last 24 hr 10/13/18 10/13/18 10/13/18 11:58 12:10 17:25 WBC RBC Hgb Hct MCV MCH MCHC RDW Plt Count MPV Sodium Potassium Chloride Carbon Dioxide Anion Gap BUN Creatinine Estimated GFR POC Glucose 188 H 181 H Random Glucose Calcium Vancomycin Trough 6.4 10/13/18 10/14/18 10/14/18 20:33 07:11 07:53 WBC 5.6 RBC 3.75 L Hgb 10.5 L Hct 31.3 L MCV 83.5 MCH 28.0 MCHC 33.6 RDW 15.2 Plt Count 377 D MPV 7.6 Sodium Potassium Chloride Carbon Dioxide Anion Gap BUN Creatinine Estimated GFR POC Glucose 175 H 159 H Random Glucose Calcium Vancomycin Trough 10/14/18 07:53 WBC RBC Hgb Hct MCV MCH MCHC RDW Plt Count MPV Sodium 135 L Potassium 4.2 Chloride 98 Carbon Dioxide 33.6 H Anion Gap 3 L BUN 22 H Creatinine 1.00 Estimated GFR 58 L POC Glucose Random Glucose 120 H Calcium 9.2 Vancomycin Trough Microbiology 10/09/18 10:47 Blood - Peripheral Aerobic Blood Culture - Final No growth in 5 days 10/09/18 10:47 Blood - Peripheral Anaerobic Blood Culture - Final No growth in 5 days 10/09/18 07:40 Blood - Peripheral Aerobic Blood Culture - Final No growth in 5 days 10/09/18 07:40 Blood - Peripheral Anaerobic Blood Culture - Final No growth in 5 days 10/13/18 23:45 Stool Stool Occult Blood (ROSINA) - Final Hemoccult negative - Imaging Impressions WBC Scan Nuclear Medicine 10/12/18 00:00 CONCLUSION: 1. Soft tissue radiotracer accumulation along the lateral margin of the left hindfoot corresponding to the patient's ulceration. 2. No evidence of bony uptake to indicate the presence of osteomyelitis. Assessment and Plan - Plan 53 y/o female with history of diabetes, hepatitis C, PVD, s/p pacemaker, s/p recent amputation of the right fourth toe,asthma,throat cancer, hypotension, presented to ER with redness and swelling of the left leg. Left leg cellulitis, possible MRSA Left heel wound History of MRSA wound -Ultrasound of left lower extremity negative for DVT -Tib-fib x-ray showed soft tissue swelling -Vancomycin/Zosyn IV previously, switched to Ertapenem -Wound culture growing a beta strep, with moderate growth also of gram- positive cocci in pairs possibly MRSA -ID consulted appreciate recommendation. WBC tag and vascular studies ordered -[employer] [facility] PPM Model 2210, The model is not compatible with MRI. Unable to do MRI. -Xray of the ankle showed Marked soft tissue swelling without fracture or dislocation. Extensive vascular calcifications are noted. Minimal lucency is present at the tip of the lateral malleolus suggesting ulceration. -X-ray of the foot Plantar spurring otherwise negative -Lasix 20mg daily/KCL -Continue IV antibiotics for now. Pending recommendations from infectious disease on an date of antibiotics Urinary tract infection ESBL, E. coli -ESBL E. coli, MDR O. -On Ertapenem per ID recommendation Recent right fourth toe amputation -Discontinue sutures, wound appears clean DM 2, uncontrolled -Insulin sliding scale,switched to Levemir 10units BID, adjust as needed -Monitor blood glucose. Hemoglobin A1c 6.8 History of hypotension -Resume Midodrin Severe anemia -Denies any hematochezia, hematemesis, hematuria -Hold lovenox, stool for occult blood. Pantoprazole twice daily IV. -1 unit blood transfusion done -Improve H&H. Monitor for any signs and symptoms of bleeding. -Lovenox restarted. No evidence of bleeding noted. Will switch over pantoprazole to Pepcid p.o. twice daily. -No evidence of bleed DVT prop Lovenox GI prop Pepcid twice daily CODE STATUS full code Discussed with patient, nursing, Dr. Nicci Cohn's office was called ([employer]) [facility] Model Pacer, serial #[id number] Placed June 2013 [phone] Discharge Planning: Plan to [place] SNF when clinically improved
[2018-10-15] MEDS: Insulin NovoLOG Aspart Correctional Sugar Inj SQ SCH ×4 (08:09→23:19)
[2018-10-15 08:17] LABS: Mean Corpuscular HGB Conc 33.4 % (32.0-36.0); Mean Corpuscular Hemoglobin 27.6 pg (27.0-34.0); Mean Corpuscular Volume 82.7 fL (80.0-100.0); Mean Platelet Volume 7.3 fL (7.0-11.0); Platelet Count 328 th/mm3 (150-450); Red Blood Count 3.62 mil/mm3 (4.00-5.30); Red Cell Distribution Width 14.9 % (11.6-17.2); White Blood Count 7.7 th/mm3 (4.0-11.0)
[2018-10-15 08:41] LABS: Calcium 8.8 mg/dL (8.5-10.1); Potassium 4.2 meq/L (3.5-5.1)
[2018-10-15] MEDS: Famotidine 20 MG Tablet PO SCH ×2 (09:12→23:19)
[2018-10-15] MEDS: Enoxaparin Inj 40 MG/0.4 ML Syringe SQ SCH (09:12)
[2018-10-15] MEDS: Gabapentin 400 MG Capsule PO SCH ×3 (09:12→17:56)
[2018-10-15] MEDS: Potassium Chloride 10 MEQ ER Capsule PO SCH (09:13)
[2018-10-15] MEDS: Insulin Detemir Inj 1,000 UNIT/10 ML Vial SQ SCH ×2 (09:13→23:20)
--- NOTE | 2018-10-15 13:32 | P.PNIM ---
Subjective Interval history: Follow-up visit DM 2, hep C, PVD, PPM, recent amputation right 4th toe, left leg cellulitis. Patient seen and examined today. Reports she is doing okay. Left lower extremity swelling improving. Reports diarrhea overnight. States it is improved today. States she is tolerating her diet. No nausea, vomiting. Denies any abdominal pain or discomfort. Denies chest pain, palpitations, headaches, dizziness. Asking about going to rehab. And when she is going out of the hospital. Discussed with patient plans including approval of infectious disease doctor to switch over her antibiotics. Physical Exam Vital signs: Vital Signs 10/14/18 16:00 10/14/18 17:45 10/14/18 20:00 Temperature 98.1 F 97.9 F Pulse Rate 82 84 82 Respiratory Rate 20 17 Blood Pressure 122/68 116/75 Pulse Oximetry 98 98 10/15/18 00:00 10/15/18 04:00 10/15/18 07:54 Temperature 97.8 F 98 F 98.5 F Pulse Rate 83 85 91 H Respiratory Rate 16 16 20 Blood Pressure 138/84 126/78 139/77 Pulse Oximetry 99 99 98 10/15/18 12:24 Temperature 98.7 F Pulse Rate 89 Respiratory Rate 20 Blood Pressure 131/66 Pulse Oximetry 95 Intake & Output 10/14/18 10/15/18 10/15/18 18:59 06:59 18:59 Intake Total 100 / 100 Balance 100 / 100 Weight 64.7 kg Intake: IV 100 / 100 INVanz Inj 1,000 MG In NS Inj 100 / 100 100 ML @ 200 mls/hr IV.SIG Q24H [facility] Rx#:[id number] Other: Date of Last Bowel Movement 10/14/18 10/15/18 10/15/18 # Bowel Movements 5 Narrative: GENERAL: This is a well-nourished, well-developed patient, in no apparent distress. SKIN: Warm and dry. Pale HEENT: Normocephalic. Pupils equal round and reactive. Nose without bleeding. Airway patent. NECK: Trachea midline. CARDIOVASCULAR: Regular rate and rhythm without murmurs, gallops, or rubs. RESPIRATORY: Clear to auscultation. Breath sounds equal bilaterally. No wheezes , rales, or rhonchi. GASTROINTESTINAL: Abdomen soft, non-tender, nondistended. Bowel Sounds normoactive x4. MUSCULOSKELETAL: Right toe 4th toe amputation with sutures clean dry and intact. Left lower extremity edema +2, improved erythema. Left heel boggy with open wound, small amount serosanguineous drain. NEUROLOGICAL: Awake and alert. No focal neuro deficit. Moves all extremities. Normal speech. Results - Labs CBC & Chem 7: 10/15/18 07:58 10/15/18 07:58 Laboratory Results - last 24 hr 10/14/18 10/14/18 10/14/18 17:06 21:00 23:25 WBC RBC Hgb Hct MCV MCH MCHC RDW Plt Count MPV Sodium Potassium Chloride Carbon Dioxide Anion Gap BUN Creatinine Estimated GFR POC Glucose 162 H 146 H Random Glucose Calcium Stl C.difficile DNA Amp Negative St C. diff Tox Epid 027 Negative 10/15/18 10/15/18 10/15/18 07:58 07:58 08:05 WBC 7.7 RBC 3.62 L Hgb 10.0 L Hct 30.0 L MCV 82.7 MCH 27.6 MCHC 33.4 RDW 14.9 Plt Count 328 MPV 7.3 Sodium 137 Potassium 4.2 Chloride 100 Carbon Dioxide 33.0 H Anion Gap 4 L BUN 22 H Creatinine 0.82 Estimated GFR 73 L POC Glucose 135 H Random Glucose 105 Calcium 8.8 Stl C.difficile DNA Amp St C. diff Tox Epid 027 10/15/18 11:45 WBC RBC Hgb Hct MCV MCH MCHC RDW Plt Count MPV Sodium Potassium Chloride Carbon Dioxide Anion Gap BUN Creatinine Estimated GFR POC Glucose 168 H Random Glucose Calcium Stl C.difficile DNA Amp St C. diff Tox Epid 027 Microbiology 10/09/18 10:47 Blood - Peripheral Aerobic Blood Culture - Final No growth in 5 days 10/09/18 10:47 Blood - Peripheral Anaerobic Blood Culture - Final No growth in 5 days 10/09/18 07:40 Blood - Peripheral Aerobic Blood Culture - Final No growth in 5 days 10/09/18 07:40 Blood - Peripheral Anaerobic Blood Culture - Final No growth in 5 days Assessment and Plan - Plan 53 y/o female with history of diabetes, hepatitis C, PVD, s/p pacemaker, s/p recent amputation of the right fourth toe,asthma,throat cancer, hypotension, presented to ER with redness and swelling of the left leg. Left leg cellulitis, possible MRSA Left heel wound History of MRSA wound -Ultrasound of left lower extremity negative for DVT -Tib-fib x-ray showed soft tissue swelling -Vancomycin/Zosyn IV previously, switched to Ertapenem -Wound culture growing a beta strep, with moderate growth also of gram- positive cocci in pairs possibly MRSA -ID consulted appreciate recommendation. WBC tag and vascular studies ordered -[employer] PPM Model 2210, The model is not compatible with MRI. Unable to do MRI. -Xray of the ankle showed Marked soft tissue swelling without fracture or dislocation. Extensive vascular calcifications are noted. Minimal lucency is present at the tip of the lateral malleolus suggesting ulceration. -X-ray of the foot Plantar spurring otherwise negative -Lasix 20mg daily/KCL -Continue IV antibiotics for now. Pending recommendations from infectious disease on an date of antibiotics -WBC scan showed Soft tissue radiotracer accumulation along the lateral margin of the left hindfoot corresponding to the patient's ulceration. No evidence of bony uptake to indicate the presence of osteomyelitis. -May be able to switch IV antibiotics. Pending ID recommendation. -Vascular study ALBERTO showed nondiagnostic ankle-brachial indices due to unobtainable pressures in the ankles. The toe brachial indices are moderately decreased consistent with at least moderate degree of small vessel disease. Recommend CT angiography for better evaluation. -Consult vascular surgery for further evaluation. Plan for CT Angio -not on metformin creatinine 0.82 Urinary tract infection ESBL, E. coli -ESBL E. coli, MDR O. -On Ertapenem per ID recommendation Recent right fourth toe amputation -Discontinue sutures, wound appears clean DM 2, uncontrolled -Insulin sliding scale,switched to Levemir 10units BID, adjust as needed -Monitor blood glucose. Hemoglobin A1c 6.8 History of hypotension -Resume Midodrine Severe anemia - resolve -Denies any hematochezia, hematemesis, hematuria -Held lovenox, stool for occult blood. Pantoprazole twice daily IV. -1 unit blood transfusion done -Improve H&H. Monitor for any signs and symptoms of bleeding. -Lovenox restarted. No evidence of bleeding noted. Pantoprazole switched to Pepcid p.o. twice daily. -No evidence of bleed DVT prop Lovenox GI prop Pepcid twice daily CODE STATUS full code Discussed with patient, nursing, Dr. Grajeda, Dr. Flako Cohn's office was called (Management Tech) PPM [facility] [employer] Model Pacer, serial #[id number] Placed June 2013 [phone] Discharge Planning: Plan to [place] SNF when clinically improved
--- NOTE | 2018-10-15 14:24 | ECHRPT ---
EXAM DATE: 10/15/2018 1:57 PM EST AGE/SEX: 53 years / Female INDICATIONS: Cellulitis, Diabetic Leg Infection CLINICAL DATA: This is the patient's initial encounter. Patient reports that signs and symptoms have been present for 1 week and indicates a pain score of 9/10. MEDICAL/SURGICAL HISTORY: . ASTHMA, , DIABETES, HEP C, HYPERTENSION, STENOSIS OF LEFT FEMORAL ARTERY . AMPUTATED TOE, TONSILLECTOMY, APPENDECTOMY COMPARISON: No prior exams available for comparison. TECHNIQUE: Four-cuff ankle and brachial pressures were obtained. Pulse cuff waveform tracings of the ankles were recorded, and ankle-brachial indices were calculated. PRESSURES (mmHg): Brachial (arm) : RIGHT: 150, LEFT: Ankle : RIGHT: CNO >240, LEFT: CNO >240 Toe : RIGHT: 32, LEFT: 31 TBI : RIGHT: 0.21, LEFT: 0.21 FINDINGS: Pulsed-Cuff Waveform: Decreased amplitude in the right toe. Pneumatic throughout the left lower extr emity. Other: None. CONCLUSION: 1. Nondiagnostic ankle-brachial indices due to unobtainable pressures in the ankles. The toe brachia l indices are moderately decreased consistent with at least moderate degree of small vessel disease. Recommend CT angiography for better evaluation. Electronically signed by: Yakov Pickett MD 10/15/2018 2:23 PM EST
--- NOTE | 2018-10-15 16:05 | P.CONVS ---
History of Present Illness Service: Vascular Surgery Consult date: 10/15/18 Reason for Consult: L LE PAD Primary Care Provider: No Primary Care Physician Chief Complaint: infection of the left leg History of Present Illness: 53 female with PAD and a history of LE stents (elsewhere) who was admitted for LLE cellulitis that is apparently clinically much improved. The patient doesnt walk much. She has healed toe amputations of bilateral feet. She denies f/c. Review of Systems Constitutional: Denies fever(s) PMFSH - History History Provided By: Patient - Medical History Medical History: Medical History (Last Reviewed 10/15/18 @ 15:53 by Lyndon Mcgrath MD) Amputated toe of right foot History of infection due to ESBL Escherichia coli Onset Date: ~10/09/18 Asthma delivery delivered Diabetes Hep C w/o coma, chronic Hypertension Hypotension Neuropathy Stenosis of left femoral artery - Surgical History Surgical History: Surgical History (Last Reviewed 10/15/18 @ 15:53 by Lyndon Mcgrath MD) History of tonsillectomy Hx of appendectomy - Family History Family History: Family History (Last Reviewed 10/15/18 @ 09:02 by Sheeba Mata) Other Heart disease - Tobacco History Second Hand Smoke Exposure: No Smoking Status: Former smoker - Alcohol History How Often Do You Have a Drink Containing Alcohol: Never - Substance Use History Substance History: Past History - Travel History Recent Travel in the [place] Within the Last 8 Weeks: No Recent Travel Out of the Country Within the Last 8 Weeks: No - Immunization History Tetanus Immunization: Unsure Hx Influenza Vaccine This Season: No Medications and Allergies Active Medications: Active Medications Acetaminophen (Tylenol) 650 mg PO Q4H PRN PRN Reason: fever/pain Last Admin: 10/12/18 18:40 Dose: 650 mg Albuterol (Albuterol Neb (Prn)) 1.25 mg NEB Q6HR NEB PRN PRN Reason: sob Dextrose (D50w Vial) 50 ml IV.PUSH UNSCH PRN PRN Reason: PER HYPOGLYCEMIA PROTOCOL Enoxaparin Sodium (Lovenox Inj) 40 mg SQ DAILY [facility] Last Admin: 10/15/18 09:12 Dose: 40 mg Famotidine (Pepcid) 20 mg PO BID [facility]ON Last Admin: 10/15/18 09:12 Dose: 20 mg Furosemide (Lasix Inj) 20 mg IV.PUSH DAILY [facility] Last Admin: 12/10/18 09:13 Dose: 20 mg Gabapentin (Neurontin) 400 mg PO TID [facility] Last Admin: 10/15/18 14:04 Dose: 400 mg Glucagon (Glucagon Inj) 1 mg OTHER PRN PRN PRN Reason: for Hypoglycemia Protocol Ertapenem 1,000 mg/ Sodium (Chloride) 100 mls @ 200 mls/hr IV.SIG Q24H [facility] Last Infusion: 10/14/18 23:20 Dose: Infused Insulin Aspart (Novolog Insulin Correctional Sugar Inj) 0 unit SQ ACHS [facility]; Protocol Last Admin: 10/15/18 12:42 Dose: Not Given Insulin Detemir (Levemir Inj) 10 unit SQ BID [facility] Last Admin: 10/15/18 09:13 Dose: 10 unit Midodrine (Proamatine) 5 mg PO TID [facility] Last Admin: 10/15/18 14:05 Dose: 5 mg Potassium Chloride (Kcl) 10 meq PO DAILY [facility] Last Admin: 10/15/18 09:13 Dose: 10 meq Allergies Allergy/AdvReac Type Severity Reaction Status Date / Time metformin AdvReac Severe DIARRHEA Verified 10/09/18 07:18 morphine AdvReac Severe Dizziness Verified 10/09/18 07:18 oxycodone AdvReac Severe Nausea/Vomi Verified 10/09/18 07:18 ting prochlorperazine AdvReac Severe ANXIETY Verified 10/09/18 07:18 MRI PRECAUTION AdvReac Severe PACEMAKER Uncoded 10/09/18 07:18 IS NOT A BIOTRONIK OR MEDTRONIC 06/15/16 KMD Home Medications Medication Instructions Recorded Confirmed Type gabapentin 400 mg PO TID 05/12/18 10/09/18 History insulin detemir U-100 [Levemir 5 unit SUB-Q QPM 05/12/18 10/09/18 History U-100 Insulin] midodrine 5 mg PO TID 05/12/18 10/09/18 History Physical Exam Vital Signs / I&O: Vital Signs 10/14/18 16:00 10/14/18 17:45 10/14/18 20:00 Temperature 98.1 F 97.9 F Pulse Rate 82 84 82 Respiratory Rate 20 17 Blood Pressure 122/68 116/75 Pulse Oximetry 98 98 10/15/18 00:00 10/15/18 04:00 10/15/18 07:54 Temperature 97.8 F 98 F 98.5 F Pulse Rate 83 85 91 H Respiratory Rate 16 16 20 Blood Pressure 138/84 126/78 139/77 Pulse Oximetry 99 99 98 10/15/18 12:24 Temperature 98.7 F Pulse Rate 89 Respiratory Rate 20 Blood Pressure 131/66 Pulse Oximetry 95 Intake & Output 10/14/18 10/15/18 10/15/18 18:59 06:59 18:59 Intake Total 100 / 100 Balance 100 / 100 Weight 64.7 kg Intake: IV 100 / 100 INVanz Inj 1,000 MG In NS Inj 100 / 100 100 ML @ 200 mls/hr IV.SIG Q24H [facility] Rx#:[id number] Other: Date of Last Bowel Movement 10/14/18 10/15/18 10/15/18 # Bowel Movements 5 Neuro: somnolent but arouseable BAILEY HEENT: NC/AT Neck: trachea midline Heart: reg rate Lungs: nonlabored Vascular: palpable R femoral and DP palpable L femoral; no palpable DP or PT Extremities: L heel desquamating lesion and edema to proximal calf. healed toe amputations feet warm Laboratory Results - last 24 hr 10/14/18 10/14/18 10/14/18 17:06 21:00 23:25 WBC RBC Hgb Hct MCV MCH MCHC RDW Plt Count MPV Sodium Potassium Chloride Carbon Dioxide Anion Gap BUN Creatinine Estimated GFR POC Glucose 162 H 146 H Random Glucose Calcium Stl C.difficile DNA Amp Negative St C. diff Tox Epid 027 Negative 10/15/18 10/15/18 10/15/18 07:58 07:58 08:05 WBC 7.7 RBC 3.62 L Hgb 10.0 L Hct 30.0 L MCV 82.7 MCH 27.6 MCHC 33.4 RDW 14.9 Plt Count 328 MPV 7.3 Sodium 137 Potassium 4.2 Chloride 100 Carbon Dioxide 33.0 H Anion Gap 4 L BUN 22 H Creatinine 0.82 Estimated GFR 73 L POC Glucose 135 H Random Glucose 105 Calcium 8.8 Stl C.difficile DNA Amp St C. diff Tox Epid 027 10/15/18 11:45 WBC RBC Hgb Hct MCV MCH MCHC RDW Plt Count MPV Sodium Potassium Chloride Carbon Dioxide Anion Gap BUN Creatinine Estimated GFR POC Glucose 168 H Random Glucose Calcium Stl C.difficile DNA Amp St C. diff Tox Epid 027 Microbiology 10/09/18 10:47 Aerobic Blood Culture - Final Blood - Peripheral No growth in 5 days Anaerobic Blood Culture - Final No growth in 5 days 10/09/18 07:40 Aerobic Blood Culture - Final Blood - Peripheral No growth in 5 days Anaerobic Blood Culture - Final No growth in 5 days Impressions Extremity Arterial Study 10/12/18 00:00 CONCLUSION: 1. Nondiagnostic ankle-brachial indices due to unobtainable pressures in the ankles. The toe brachial indices are moderately decreased consistent with at least moderate degree of small vessel disease. Recommend CT angiography for better evaluation. Assessment and Plan - Plan Improving LEFT leg cellulitis by report. I don't think this is a sequelae of her PAD. By exam and PVR she has mild PAD that is infra-inguinal. Given the clinical improvement with antibiotics and healed toe amputations, I don't think any further testing needs to be done during this admission for her arterial insufficiency. Would not get CTA as infra-inguinal disease. I will arrange f/u in my clinic. Lyndon Mcgrath MD FACS [facility] [phone]
--- NOTE | 2018-10-15 17:18 | P.PNID ---
Subjective Remarks: seen together with Dr Mcgrath Artherial studies sugg of moderate disease no fever dopoing OK Antibiotics: ertapenem Allergies/Adverse Reactions: Allergies metformin Adverse Reaction (Severe, Verified 10/09/18 07:18) DIARRHEA morphine Adverse Reaction (Severe, Verified 10/09/18 07:18) Dizziness oxycodone Adverse Reaction (Severe, Verified 10/09/18 07:18) Nausea/Vomiting prochlorperazine Adverse Reaction (Severe, Verified 10/09/18 07:18) ANXIETY ANXIETY MRI PRECAUTION Adverse Reaction (Severe, Uncoded 10/09/18 07:18) PACEMAKER IS NOT A BIOTRONIK OR MEDTRONIC 06/15/16 KMD PACEMAKER IS NOT A BIOTRONIK OR MEDTRONIC CONDITIONAL PACEMAKER. CALLED BOTH COMPANIES TO CONFIRM. Objective Vital Signs 10/14/18 17:45 10/14/18 20:00 10/15/18 00:00 Temperature 97.9 F 97.8 F Pulse Rate 84 82 83 Respiratory Rate 17 16 Blood Pressure 116/75 138/84 Pulse Oximetry 98 99 10/15/18 04:00 10/15/18 07:54 10/15/18 12:24 Temperature 98 F 98.5 F 98.7 F Pulse Rate 85 91 H 89 Respiratory Rate 16 20 20 Blood Pressure 126/78 139/77 131/66 Pulse Oximetry 99 98 95 10/15/18 16:00 Temperature 98.9 F Pulse Rate 86 Respiratory Rate 16 Blood Pressure 105/58 L Pulse Oximetry 96 Intake & Output 10/14/18 10/15/18 10/15/18 18:59 06:59 18:59 Intake Total 100 / 100 Balance 100 / 100 Weight 64.7 kg Intake: IV 100 / 100 INVanz Inj 1,000 MG In NS Inj 100 / 100 100 ML @ 200 mls/hr IV.SIG Q24H [facility] Rx#:[id number] Other: Date of Last Bowel Movement 10/14/18 10/15/18 10/15/18 # Bowel Movements 5 10/09/18 10:47 Blood - Peripheral Aerobic Blood Culture - Final No growth in 5 days 10/09/18 10:47 Blood - Peripheral Anaerobic Blood Culture - Final No growth in 5 days 10/09/18 07:40 Blood - Peripheral Aerobic Blood Culture - Final No growth in 5 days 10/09/18 07:40 Blood - Peripheral Anaerobic Blood Culture - Final No growth in 5 days 10/13/18 23:45 Stool Stool Occult Blood (ROSINA) - Final Hemoccult negative Lab - Hematology Results 10/14/18 10/15/18 07:53 07:58 WBC 5.6 7.7 RBC 3.75 L 3.62 L Hgb 10.5 L 10.0 L Hct 31.3 L 30.0 L MCV 83.5 82.7 MCH 28.0 27.6 MCHC 33.6 33.4 RDW 15.2 14.9 Plt Count 377 D 328 MPV 7.6 7.3 Lab - Chemistry Results 10/13/18 10/13/18 10/14/18 17:25 20:33 07:11 Sodium Potassium Chloride Carbon Dioxide Anion Gap BUN Creatinine Estimated GFR POC Glucose 181 H 175 H 159 H Random Glucose Calcium 10/14/18 10/14/18 10/14/18 07:53 12:03 17:06 Sodium 135 L Potassium 4.2 Chloride 98 Carbon Dioxide 33.6 H Anion Gap 3 L BUN 22 H Creatinine 1.00 Estimated GFR 58 L POC Glucose 137 H 162 H Random Glucose 120 H Calcium 9.2 10/14/18 10/15/18 10/15/18 21:00 07:58 08:05 Sodium 137 Potassium 4.2 Chloride 100 Carbon Dioxide 33.0 H Anion Gap 4 L BUN 22 H Creatinine 0.82 Estimated GFR 73 L POC Glucose 146 H 135 H Random Glucose 105 Calcium 8.8 10/15/18 11:45 Sodium Potassium Chloride Carbon Dioxide Anion Gap BUN Creatinine Estimated GFR POC Glucose 168 H Random Glucose Calcium Imaging: ITS Impressions Venous Doppler Study 10/09/18 07:25 CONCLUSION: 1. No sonographic evidence for left lower extremity DVT. 2. Nonspecific mild left inguinal adenopathy. Tibia/Fibula X-Ray 10/09/18 07:30 CONCLUSION: Soft tissue swelling. Chest X-Ray 10/09/18 07:31 CONCLUSION: No acute cardiopulmonary abnormality is identified. Ankle X-Ray 10/12/18 00:00 CONCLUSION: Marked soft tissue swelling. Extremity Arterial Study 10/12/18 00:00 CONCLUSION: 1. Nondiagnostic ankle-brachial indices due to unobtainable pressures in the ankles. The toe brachial indices are moderately decreased consistent with at least moderate degree of small vessel disease. Recommend CT angiography for better evaluation. Foot X-Ray 10/12/18 00:00 CONCLUSION: Plantar spurring otherwise negative WBC Scan Nuclear Medicine 10/12/18 00:00 CONCLUSION: 1. Soft tissue radiotracer accumulation along the lateral margin of the left hindfoot corresponding to the patient's ulceration. 2. No evidence of bony uptake to indicate the presence of osteomyelitis. Physical Exam: GENERAL: NAD SKIN: Warm and dry. no rash CARDIOVASCULAR: Regular rate and rhythm. RESPIRATORY: No accessory muscle use. Clear to auscultation. Breath sounds equal bilaterally. GASTROINTESTINAL: Abdomen soft, non-tender, nondistended. Hepatic and splenic margins not palpable. MUSCULOSKELETAL: Extremities without clubbing, cyanosis, LLE looks much better with marked improvement of edema and erythema L heel wound is granulating nicely NEUROLOGICAL: Awake and alert. No obvious cranial nerve deficits. Motor grossly within normal limits. Five out of 5 muscle strength in the arms and legs. Normal speech. PSYCHIATRIC: Appropriate mood and affect; Assessment and Plan - Plan ESBL + E.coli UTI LLE cellulitis Group A strep DFI L heel ulcer - healing ceretac negative for osteo PVD, but appears to have a good healing potential ebonie Mcgrath. No CTA needed cont Ertapenem x 14 days cancell CTA fu with vascular surgery as o/p OKto dc home after everytheing is arranged ebonie primary team ebonie Mcgrath
--- NOTE | 2018-10-15 17:21 | P.DCO ---
Post Hospital Infusion Therapy - Infusion Therapy Location of Infusion Therapy: [facility] Infusion Therapy Order - Patient Information Patient Weight: 64.7 kg - Diagnosis (1) Cellulitis Code(s): L03.90 - Cellulitis, unspecified (2) UTI (urinary tract infection) Code(s): N39.0 - Urinary tract infection, site not specified - Administer Medication Ertapenem Dose: 1 gram IV Directions: q 24 hours Start Treatment: 10/16/18 Stop Treatment: 10/24/18 - Additional Information Venous Access: Other (midline) Additional Instructions: [x] Peripheral flush and dressing changes per protocol [x] Implanted port and central line pilot: * Implanted port: 10 ml Normal Saline followed by 5 ml Heparin 100 units/ml Heparin flush after each use and monthly to maintain. [] May leave port accessed during therapy. [] May leave peripheral site accessed for duration of therapy. [x] If patient has SOB or respiratory distress, check oxygen saturation. If less than 90% or clinical signs of respiratory distress, administer oxygen at 2 L/min. via nasal cannula and notify physician. [x] Anaphylaxis/Reaction orders: * Stop infusion. * Keep IV line open with saline flush. * Notify physician. * Monitor vital signs every 15 minutes until symptoms resolve. * Check Oxygen saturation; Oxygen at 2 L/min. via nasal cannula if less than 90% or clinical signs of respiratory distress. * Administer diphenhydramine (Benadryl) 25 mg IV STAT, (unless patient has received as pre-med). May repeat once, if necessary. * Solu-Cortef 250 mg IVP over 30-60 seconds, use 100 mg vials for each dissolution. * Epinephrine (1mg/1 ml) 0.3 mg subcutaneously or IVP now with any signs of respiratory distress. * Check with physician for new additional pre-med orders if patient is re- challenged or re-treated. [x] May remove PICC line when treatment complete, after confirming with Physician. [x] If the patient is admitted to the hospital, the ED, or transferred via [facility] , complete transfer form including medication reconciliation order sheet. Weekly Labs: CBC w/diff, Creatinine - Case Management Consult Case Management Consult-IVF: Yes - Patient Information Allergies metformin Adverse Reaction (Severe, Verified 10/09/18 07:18) DIARRHEA morphine Adverse Reaction (Severe, Verified 10/09/18 07:18) Dizziness oxycodone Adverse Reaction (Severe, Verified 10/09/18 07:18) Nausea/Vomiting prochlorperazine Adverse Reaction (Severe, Verified 10/09/18 07:18) ANXIETY ANXIETY MRI PRECAUTION Adverse Reaction (Severe, Uncoded 10/09/18 07:18) PACEMAKER IS NOT A BIOTRONIK OR MEDTRONIC 06/15/16 K[facility] PACEMAKER IS NOT A BIOTRONIK OR MEDTRONIC CONDITIONAL PACEMAKER. CALLED BOTH COMPANIES TO CONFIRM. (1) Cellulitis Qualifiers: Site of cellulitis: extremity Site of cellulitis of extremity: lower extremity Laterality: left Qualified Code(s): L03.116 - Cellulitis of left lower limb (2) UTI (urinary tract infection) Qualifiers: Urinary tract infection type: site unspecified Hematuria presence: without hematuria Qualified Code(s): N39.0 - Urinary tract infection, site not specified
[2018-10-15] MEDS: Acetaminophen 325 MG Tablet PO PRN (18:03)
[2018-10-16] MEDS: Gabapentin 400 MG Capsule PO SCH ×3 (08:03→18:12)
[2018-10-16] MEDS: Famotidine 20 MG Tablet PO SCH ×2 (08:04→22:37)
[2018-10-16] MEDS: Enoxaparin Inj 40 MG/0.4 ML Syringe SQ SCH (08:04)
[2018-10-16] MEDS: Insulin Detemir Inj 1,000 UNIT/10 ML Vial SQ SCH ×2 (08:04→22:36)
[2018-10-16] MEDS: Insulin NovoLOG Aspart Correctional Sugar Inj SQ SCH ×4 (08:05→22:37)
[2018-10-16 08:27] LABS: Calcium 9.4 mg/dL (8.5-10.1); Carbon Dioxide 30.8 meq/L (21.0-32.0); Potassium 4.4 meq/L (3.5-5.1)
[2018-10-16] MEDS: Potassium Chloride 10 MEQ ER Capsule PO SCH (10:21)
--- NOTE | 2018-10-16 15:37 | P.PNIM ---
Subjective Interval history: Follow-up for left leg cellulitis, DM 2, hep C, PVD, PPM,with recent amputation right 4th toe. Patient seen and examined sitting on the side of the bed, denies any pain or shortness of breath. Patient states that she is ready to go home. Patient denies any pain in the foot except pain to touch. Patient stated he she had few surgeries on her foot with recent amputation on her her right fourth toe. Patient denies any headache or dizziness, denies any chest pain or shortness of breath denies any abdominal pain, nausea, vomiting, diarrhea or constipation. Patient denies any fever or chills. Nurse denies any acute complaints overnight Discussed with social worker assistant discharge planning. Physical Exam Vital signs: Vital Signs 10/15/18 16:00 10/15/18 20:00 10/16/18 00:00 Temperature 98.9 F 97.9 F 98.4 F Pulse Rate 86 87 80 Respiratory Rate 16 20 20 Blood Pressure 105/58 L 115/56 L 118/59 L Pulse Oximetry 96 91 L 94 L 10/16/18 00:48 10/16/18 04:00 10/16/18 07:40 Temperature 98.3 F 97.5 F L Pulse Rate 79 85 79 Respiratory Rate 20 16 Blood Pressure 133/78 97/55 L Pulse Oximetry 98 96 10/16/18 13:17 Temperature 97.8 F Pulse Rate 85 Respiratory Rate 15 Blood Pressure 120/66 Pulse Oximetry 98 Intake & Output 10/15/18 10/16/18 10/16/18 18:59 06:59 18:59 Intake Total 100 / 100 Output Total 2 / 2 Balance 98 / 98 Weight 64.7 kg 0 g Intake: IV 100 / 100 INVanz Inj 1,000 MG In NS Inj 100 / 100 100 ML @ 200 mls/hr IV.SIG Q24H [facility] Rx#:[id number] Output: Urine 2 / 2 Other: Other Intake Source Saline Solution Date of Last Bowel Movement 10/15/18 10/15/18 10/15/18 # Bowel Movements 2 Narrative: GENERAL: Well-developed, well-nourished, female in no apparent distress SKIN: Warm and dry. HEAD: Atraumatic. Normocephalic. EYES: Pupils equal and round. No scleral icterus. No injection or drainage. ENT: No nasal bleeding or discharge. Mucous membranes pink and moist. NECK: Trachea midline. No JVD. CARDIOVASCULAR: Regular rate and rhythm. RESPIRATORY: No accessory muscle use. Clear to auscultation. Breath sounds equal bilaterally. GASTROINTESTINAL: Abdomen soft, non-tender, nondistended. Hepatic and splenic margins not palpable. MUSCULOSKELETAL: Left heel wound with redness, edema and serosanguineous drainage. Right fourth toe amputation with sutures clean dry and intact healing well. Right fifth toe amputation healed. Left big toe amputation healed NEUROLOGICAL: Awake and alert. No obvious cranial nerve deficits. Motor grossly within normal limits. Generalized weakness moving all 4 extremities. Normal speech. PSYCHIATRIC: Appropriate mood and affect; insight and judgment normal. Results - Labs CBC & Chem 7: 10/15/18 07:58 10/16/18 07:40 Laboratory Results - last 24 hr 10/15/18 10/15/18 10/16/18 17:26 23:06 07:40 Sodium 136 Potassium 4.4 Chloride 100 Carbon Dioxide 30.8 Anion Gap 5 BUN 21 H Creatinine 0.78 Estimated GFR 78 L POC Glucose 139 H 291 H Random Glucose 94 Calcium 9.4 10/16/18 10/16/18 07:44 12:06 Sodium Potassium Chloride Carbon Dioxide Anion Gap BUN Creatinine Estimated GFR POC Glucose 99 171 H Random Glucose Calcium Assessment and Plan - Assessment (1) Cellulitis Code(s): L03.90 - Cellulitis, unspecified Status: Acute (2) UTI (urinary tract infection) Code(s): N39.0 - Urinary tract infection, site not specified Status: Acute (3) DM2 (diabetes mellitus, type 2) Code(s): E11.9 - Type 2 diabetes mellitus without complications Status: Acute - Plan This is a 53 y/o female with history of diabetes, hepatitis C, PVD, s/p pacemaker, s/p recent amputation of the right fourth toe,asthma,throat cancer, hypotension, presented to ER with redness and swelling of the left leg. Left leg cellulitis, possible MRSA Left heel wound History of MRSA wound Iinfra-inguinal mild PAD/ Arterial insufficiency -Ultrasound of left lower extremity negative for DVT -Tib-fib x-ray showed soft tissue swelling -discontinued Vancomycin/Zosyn IV previously, continue Ertapenem -Wound culture growing a beta strep, with moderate growth also of gram-positive cocci in pairs possibly MRSA -ID consulted appreciate recommendation. continue Ertapenem x 14 days -[place] PPM Model 2210, The model is not compatible with MRI. Unable to do MRI. -Xray of the ankle showed Marked soft tissue swelling without fracture or dislocation. Extensive vascular calcifications are noted. Minimal lucency is present at the tip of the lateral malleolus suggesting ulceration. -X-ray of the foot Plantar spurring otherwise negative -Lasix 20mg daily/KCL -Continue IV antibiotics for now. Pending recommendations from infectious disease on an date of antibiotics -WBC Scan Nuc Med showed Soft tissue radiotracer accumulation along the lateral margin of the left hindfoot corresponding to the patient's ulceration. No evidence of bony uptake to indicate the presence of osteomyelitis. -May be able to switch IV antibiotics. Pending ID recommendation. -Vascular study ALBERTO showed nondiagnostic ankle-brachial indices due to unobtainable pressures in the ankles. The toe brachial indices are moderately decreased consistent with at least moderate degree of small vessel disease. -Consult vascular surgery: mild PAD that is infra-inguinal, arterial insufficiency , no CTA recommended. Follow up as out patient to DR. Pichardo. Urinary tract infection ESBL, E. coli -ESBL E. coli, MDR O. -On Ertapenem per ID recommendation Recent right fourth toe amputation -Discontinue sutures, wound appears clean DM 2, uncontrolled -Insulin sliding scale,switched to Levemir 10units BID, adjust as needed -Hemoglobin A1c 6.8 -Monitor blood glucose. History of hypotension -Resume Midodrine -monitor BP Severe anemia - resolve -Denies any hematochezia, hematemesis, hematuria -Held lovenox, stool for occult blood. -s/p 1 unit blood transfusion done -Improve H&H. Monitor for any signs and symptoms of bleeding. -Lovenox restarted. No evidence of bleeding noted. -continue Pepcid p.o. twice daily. -No evidence of bleed DVT prop Lovenox GI prop Pepcid twice daily Code Status: full code Discussed Condition With: patient, nurse and MDR Discharge Planning: director of cardiopulmonary services to assist with discharge planning, plan to discharge tomorrow (1) Cellulitis Qualifiers: Site of cellulitis: extremity Site of cellulitis of extremity: lower extremity Laterality: left Qualified Code(s): L03.116 - Cellulitis of left lower limb (2) UTI (urinary tract infection) Qualifiers: Urinary tract infection type: site unspecified Hematuria presence: without hematuria Qualified Code(s): N39.0 - Urinary tract infection, site not specified
[2018-10-17 08:00] LABS: Baso % (Auto) 0.5 % (0.0-2.0); Eos # (Auto) 0.1 th/mm3 (0.0-0.4); Eos % (Auto) 1.5 % (0.0-4.0); Hematocrit 29.2 % (35.0-46.0); Hemoglobin 9.8 gm/dL (11.6-15.3); Lymph % (Auto) 15.6 % (9.0-44.0); Mean Corpuscular HGB Conc 33.5 % (32.0-36.0); Mean Corpuscular Hemoglobin 27.8 pg (27.0-34.0); Mean Corpuscular Volume 83.2 fL (80.0-100.0); Mean Platelet Volume 7.2 fL (7.0-11.0); Mono # (Auto) 0.4 th/mm3 (0.0-0.9); Mono % (Auto) 6.8 % (0.0-8.0); Neut # (Auto) 4.9 th/mm3 (1.8-7.7); Neut % (Auto) 75.6 % (16.0-70.0); Platelet Count 373 th/mm3 (150-450); Red Blood Count 3.51 mil/mm3 (4.00-5.30); Red Cell Distribution Width 15.1 % (11.6-17.2); White Blood Count 6.5 th/mm3 (4.0-11.0)
[2018-10-17 08:23] LABS: Anion Gap 5 meq/L (5-15); Blood Urea Nitrogen 19 mg/dL (7-18); Calcium 9.1 mg/dL (8.5-10.1); Carbon Dioxide 34.4 meq/L (21.0-32.0); Chloride 100 meq/L (98-107); Glomerular Filtration Rate Greater Than 89 mL/min (>89); Glucose,Random 73 mg/dL (74-106); Potassium 3.9 meq/L (3.5-5.1); Sodium 139 meq/L (136-145)
[2018-10-17 08:35] VITALS: BP 104/71; RESP 20; TEMP 98.3; O2SAT 97
[2018-10-17] MEDS: Enoxaparin Inj 40 MG/0.4 ML Syringe SQ SCH (08:35)
[2018-10-17] MEDS: Gabapentin 400 MG Capsule PO SCH ×2 (08:35→12:30)
[2018-10-17] MEDS: Famotidine 20 MG Tablet PO SCH (08:35)
[2018-10-17] MEDS: Insulin Detemir Inj 1,000 UNIT/10 ML Vial SQ SCH (08:35)
[2018-10-17] MEDS: Insulin NovoLOG Aspart Correctional Sugar Inj SQ SCH ×2 (08:36→12:30)
[2018-10-17] MEDS: Potassium Chloride 10 MEQ ER Capsule PO SCH (08:36)
[2018-10-17] MEDS ORDERED: Sodium Chloride 0.9% 2 ML Flush PRN IV.FLUSH (12:47)
--- NOTE | 2018-10-17 13:13 | P.DS ---
Date of admission: 10/09/18 09:33 Primary care physician: No Primary Care Physician Attending physician on discharge: Jessica Arriola Anticipated date of discharge: 10/17/18 Brief History from admission: patient is a 53 y/o female with history of diabetes, hepatitis C, PVD, s/p pacemaker, s/p recent amputation of the right fourth toe,asthma,throat cancer, hypotension, presented to ER with redness and swelling of the left leg. she says that this was first noticed by her friend last night. she says that 'she tried to keep her leg up last night' but this didn't help her with the swelling. she had some chills but with no fever. she says that she had amputation of her right fourth toe about two weeks ago. Patient update on day of discharge: Follow-up for left leg cellulitis, DM 2, hep C, PVD, PPM,with recent amputation right 4th toe. Patient seen and examined sitting on the side of the bed, ready to go home. Patient agreed to come back at the infusion clinic to finish the antibiotic treatment. Discharge plan coordinated with nurse and social service worker to schedule for outpatient antibiotic administration. Patient states that she is able to change her wound dressing in her feet. She said she can do it but "she is not crippled." Also states that she had friends to help her. Patient denies any pain or shortness of breath, denies any headache or dizziness , denies any abdominal pain, nausea, vomiting, diarrhea or constipation. Patient denies any fever or chills. Patient denies any pain on her foot. Nurse reported patient is requesting to be discharged today and agreed to finish outpatient antibiotic treatment. DS: Diagnosis - Discharge Diagnosis (1) Cellulitis Status: Acute (2) UTI (urinary tract infection) Status: Acute (3) DM2 (diabetes mellitus, type 2) Status: Acute DS: Medications - Discharge Medications Prescriptions: gabapentin 400 mg PO TID 30 Days #90 tab insulin detemir U-100 [Levemir U-100 Insulin] 5 unit SUB-Q QPM 30 Days #1 ml midodrine 5 mg PO TID 30 Days #90 tab DS: Summary Hospital Course: This is a 53 y/o female with history of diabetes, hepatitis C, PVD, s/p pacemaker, s/p recent amputation of the right fourth toe,asthma,throat cancer, hypotension, presented to ER with redness and swelling of the left leg. Patient was admitted for management and treatment of Left leg cellulitis, possible MRSA Left heel wound, Iinfra-inguinal mild PAD/ Arterial insufficiency. Patient also had previous history of MRSA wound. Ultrasound of left lower extremity negative for DVT; Tib-fib x-ray showed soft tissue swelling. Patient was also treated forn Urinary tract infection with, ESBL, E. coli with Ertapenem per ID recommendation x 14 days. Patient has to come back to outpatient infusion clinic to finish the course of treatment until 25 October. Patient is agreeable to come back for antibiotic IV infusion. Bus pass was provided for transportation. Patient was also instructed to control her diabetic and wound care treatments. Patient instructed to take her insulin every day to control her blood glucose. Nurse and social service worker coordinating the schedule for the outpatient antibiotic treatment , medication and diabetic supplies. - Time Spent with Patient Total time spent providing and/or coordinating discharge services: Greater than 30 minutes - Quality: VTE Deep Vein Thrombosis/Pulmonary Embolism Present on Admission: No Exam Vital signs: Vital Signs 10/16/18 13:17 10/16/18 15:40 10/16/18 20:00 Temperature 97.8 F 97.5 F L 98.8 F Pulse Rate 85 94 H 82 Respiratory Rate 15 20 14 Blood Pressure 120/66 126/68 110/57 L Pulse Oximetry 98 94 L 95 10/17/18 00:00 10/17/18 04:00 10/17/18 07:35 Temperature 98.8 F 98.7 F 98.3 F Pulse Rate 89 82 84 Respiratory Rate 18 16 20 Blood Pressure 92/54 L 97/52 L 104/71 Pulse Oximetry 96 95 97 Intake & Output 10/16/18 10/17/18 10/17/18 18:59 06:59 18:59 Intake Total 100 / 100 Balance 100 / 100 Intake: IV 100 / 100 INVanz Inj 1,000 MG In NS Inj 100 / 100 100 ML @ 200 mls/hr IV.SIG Q24H JAXON Rx#:[id number] Other: # Voids 3 Date of Last Bowel Movement 10/15/18 Narrative: GENERAL: Well-developed, well-nourished, female in no apparent distress SKIN: Warm and dry. HEAD: Atraumatic. Normocephalic. EYES: Pupils equal and round. No scleral icterus. No injection or drainage. ENT: No nasal bleeding or discharge. Mucous membranes pink and moist. NECK: Trachea midline. No JVD. CARDIOVASCULAR: Regular rate and rhythm. RESPIRATORY: No accessory muscle use. Clear to auscultation. Breath sounds equal bilaterally. GASTROINTESTINAL: Abdomen soft, non-tender, nondistended. Hepatic and splenic margins not palpable. MUSCULOSKELETAL: Left heel wound with redness, edema and serosanguineous drainage. Right fourth toe amputation with sutures clean dry and intact healing well. Right fifth toe amputation healed. Left big toe amputation healed NEUROLOGICAL: Awake and alert. No obvious cranial nerve deficits. Motor grossly within normal limits. Generalized weakness moving all 4 extremities. Normal speech. PSYCHIATRIC: Appropriate mood and affect; insight and judgment normal. Results Procedures completed during hospitalization: n/a Labs on day of discharge: Labs from last 24 hours 10/17/18 10/17/18 10/17/18 12:29 08:21 07:29 WBC 6.5 RBC 3.51 L Hgb 9.8 L Hct 29.2 L MCV 83.2 MCH 27.8 MCHC 33.5 RDW 15.1 Plt Count 373 MPV 7.2 Neut % (Auto) 75.6 H Lymph % (Auto) 15.6 [place] % (Auto) 6.8 Eos % (Auto) 1.5 Baso % (Auto) 0.5 Neut # (Auto) 4.9 Lymph # (Auto) 1.0 [place] # (Auto) 0.4 Eos # (Auto) 0.1 Baso # (Auto) 0.0 WBC Differential . Differential Comment Auto diff final Sodium Potassium Chloride Carbon Dioxide Anion Gap BUN Creatinine Estimated GFR POC Glucose 99 82 Random Glucose Calcium 10/17/18 10/16/18 07:29 22:13 WBC RBC Hgb Hct MCV MCH MCHC RDW Plt Count MPV Neut % (Auto) Lymph % (Auto) [place] % (Auto) Eos % (Auto) Baso % (Auto) Neut # (Auto) Lymph # (Auto) [place] # (Auto) Eos # (Auto) Baso # (Auto) WBC Differential Differential Comment Sodium 139 Potassium 3.9 Chloride 100 Carbon Dioxide 34.4 H Anion Gap 5 BUN 19 H Creatinine 0.64 Estimated GFR Greater than 89 POC Glucose 214 H Random Glucose 73 L Calcium 9.1 - Impressions ITS Impressions Venous Doppler Study 10/09/18 07:25 CONCLUSION: 1. No sonographic evidence for left lower extremity DVT. 2. Nonspecific mild left inguinal adenopathy. Tibia/Fibula X-Ray 10/09/18 07:30 CONCLUSION: Soft tissue swelling. Chest X-Ray 10/09/18 07:31 CONCLUSION: No acute cardiopulmonary abnormality is identified. Ankle X-Ray 10/12/18 00:00 CONCLUSION: Marked soft tissue swelling. Extremity Arterial Study 10/12/18 00:00 CONCLUSION: 1. Nondiagnostic ankle-brachial indices due to unobtainable pressures in the ankles. The toe brachial indices are moderately decreased consistent with at least moderate degree of small vessel disease. Recommend CT angiography for better evaluation. Foot X-Ray 10/12/18 00:00 CONCLUSION: Plantar spurring otherwise negative WBC Scan Nuclear Medicine 10/12/18 00:00 CONCLUSION: 1. Soft tissue radiotracer accumulation along the lateral margin of the left hindfoot corresponding to the patient's ulceration. 2. No evidence of bony uptake to indicate the presence of osteomyelitis. Discharge Plan - Discharge Disposition Patient Disposition: 01 Discharge Home - Discharge Condition Condition: Fair - Discharge Order Discharge Orders: Discharge Order (Routine); Ordered 10/17/18 Ordered By: Riya Bush ED Use Only Admit Order (Routine); Ordered 10/09/18 Ordered By: Kendra Cage - Discharge Details Anticipated Discharge Date: 10/17/18 Discharge Comment: Scheduled for daily infusion of antibiotic at the infusion clinic. Bus pass provided for transportation to the infusion clinic. - Physicians Team Primary Care Provider: Primary Care Physici,No Attending Provider: Jessica Arriola Other Providers: Sally Grajeda MD ; [facility] ; Lyndon Mcgrath MD
[2018-10-17 14:48] VITALS: PULSE 87
[2018-10-17] MEDS ORDERED: Sodium Chloride 0.9% 2 ML Flush BID IV.FLUSH SCH (21:00)
== END 2018-10-17 14:33 | disposition home or self-care (01) ==
LOC: NEPC 07:13 → NEDA 09:33 → N05 13:10
PROVIDERS: ADMIT Hospitalist; ATTEND Hospitalist